=== PATIENT | female | born 1940 | race Asian ===

== ENCOUNTER 2017-02-04 18:38 | Inpatient (IN) | payer MEDICARE ==
[~2017-02-04] VITALS: Ht 160 cm; Wt 43.1 kg
[~2017-02-04 18:38] MED LIST: METFORMIN HCL500 M1 ORAL
[2017-02-04 19:49] LABS: HEMATOCRIT 56.3 % (37.0-47.0); HEMOGLOBIN 17.3 G/DL (12.0-16.0); MEAN CORPUSCULAR VOLUME 91 FL (80-99); PLATELET COUNT 219 K/UL (150-450); RED BLOOD COUNT 6.16 M/UL (4.20-5.40); RED CELL DISTRIBUTION WIDTH 11.7 % (11.6-14.8)
[2017-02-04 19:51] LABS: APPEARANCE,URINE CLEAR; BILIRUBIN, URINE NEGATIVE (NEGATIVE); COLOR,URINE PALE YELLOW; GLUCOSE, URINE (UA) 4+ (NEGATIVE); KETONES,URINE 3+ (NEGATIVE); LEUKOCYTE ESTERASE ,URINE NEGATIVE (NEGATIVE); NITRITE,URINE NEGATIVE (NEGATIVE); PH,URINE 5 (4.5-8.0); PROTEIN,URINE 1+ (NEGATIVE); UROBILINOGEN,URINE NORMAL MG/DL (0.0-1.0)
[2017-02-04 20:18] VITALS: BP 159/87
[2017-02-04 20:32] LABS: ALANINE AMINOTRANSFERASE 24 U/L (12-78); ALBUMIN 3.9 G/DL (3.4-5.0); ALBUMIN/GLOBULIN RATIO 0.8 (1.0-2.7); ALKALINE PHOSPHATASE 182 U/L (46-116); ANION GAP 17 mmol/L (5-15); ASPARTATE AMINO TRANSFERASE 29 U/L (15-37); BILIRUBIN,TOTAL 1.2 MG/DL (0.2-1.0); BLOOD UREA NITROGEN 22 mg/dL (7-18); CARBON DIOXIDE 27 MMOL/L (21-32); CHLORIDE 108 MMOL/L (98-107); CKMB 3.9 NG/ML (0.0-3.6); CREATINE KINASE 442 U/L (26-308); CREATININE 1.1 MG/DL (0.55-1.30); POTASSIUM 3.7 MMOL/L (3.5-5.1); SODIUM 152 MMOL/L (136-145)
[2017-02-04 20:51] LABS: BILIRUBIN,DIRECT 0.2 MG/DL (0.0-0.3)
[2017-02-04 21:24] VITALS: BP 167/78
[2017-02-04] MEDS ORDERED: Ampicillin/Sulbactam Sod 3 GM in NS 110 ML IVPB ONE (22:15)
[2017-02-04] MEDS ORDERED: Unasyn 3gm Inj ONE (22:25)
[2017-02-04 23:49] VITALS: BP 165/71
--- NOTE | 2017-02-04 23:55 | Emergency Room Report ---
History of Present Illness General Chief Complaint: Altered Level of Consciousness Source: Patient, EMS Present Illness HPI Patient is a 76-year-old female brought in by EMS after increased altered level consciousness. Per EMS patient had been altered for approximately 7 hours. The patient was noted to have been minimally responsive. She was noted to have high blood sugar when checked by EMS. History was markedly limited by patient' s altered mental status. Allergies: Coded Allergies: No Known Allergies (Unverified , 02/04/17) Patient History Past Medical History: see triage record Last Menstrual Period: Unk Reviewed Nursing Documentation: PMH: Agreed, PSxH: Agreed Nursing Documentation-PMH Hx Diabetes: Yes Review of Systems All Other Systems: limited - b ymental status Physical Exam Vital Signs Date Time Temp Pulse Resp B/P (MAP) Pulse Ox O2 Delivery O2 Flow Rate FiO2 02/04/17 18:33 98.4 103 18 167/103 97 Room Air Sp02 EP Interpretation: normal General Appearance: moderate distress, lethargic, Chronically Ill ENT: dry mucus membranes Neck: no meningismus, limited range of motion Respiratory: lungs clear, normal breath sounds, no respiratory distress Cardiovascular #1: normal peripheral pulses, no edema Gastrointestinal: normal inspection, normal bowel sounds, non tender, no mass Genitourinary: normal inspection Musculoskeletal: back normal, digits/nails normal Neurologic: motor weakness - moving right upper extremity Psychiatric: other - decreased responsiveness Skin: normal inspection Medical Decision Making Diagnostic Impression: Primary Impression: Altered level of consciousness Additional Impressions: Hyperosmolar coma due to secondary diabetes Dehydration Meningioma CVA (cerebrovascular accident) ER Course Patient presented for altered mental status.Differential diagnosis included but was not limited to ischemic stroke, subarachnoid hemorrhage, hypoglycemia, spinal cord injury, neurodegenerative disorder, urinary tract infection, hypoxemia.Because of complexity of patient's case laboratory testing and imaging studies were ordered. The patient noted have elevated blood sugar. She was given IV insulin. She started on IV fluids. Laboratory testing was notable for elevated blood sugar as well as elevated sodium level consistent with dehydration. Patient was noted to have a normal bicarbonate. She does not appear to be in diabetic ketoacidosis. EKG interpreted by me showed sinus tachycardia with a rate of [address] depression. The patient does not appear to be candidate for thrombolysis due to prolonged time to presentation. She is given rectal aspirin. Dr. Han was contacted for for inpatient management due to patient's altered mental status and panel physician Labs Test 02/04/17 18:44 02/04/17 19:06 02/04/17 21:45 Sodium Level 152 MMOL/L (136-145) Potassium Level 3.7 MMOL/L (3.5-5.1) Chloride Level 108 MMOL/L (98-107) Carbon Dioxide Level 27 MMOL/L (21-32) Anion Gap 17 mmol/L (5-15) Blood Urea Nitrogen 22 mg/dL (7-18) Creatinine 1.1 MG/DL (0.55-1.30) Estimat Glomerular Filtration Rate mL/min (>60) Glucose Level 519 MG/DL (74-106) Calcium Level 9.0 MG/DL (8.5-10.1) Total Bilirubin 1.2 MG/DL (0.2-1.0) Direct Bilirubin 0.2 MG/DL (0.0-0.3) Aspartate Amino Transf (AST/SGOT) 29 U/L (15-37) Alanine Aminotransferase (ALT/SGPT) 24 U/L (12-78) Alkaline Phosphatase 182 U/L (46-116) Total Creatine Kinase 442 U/L (26-308) Creatine Kinase MB 3.9 NG/ML (0.0-3.6) Creatine Kinase MB Relative Index 0.8 Pro-B-Type Natriuretic Peptide 2552 pg/mL (0-125) Total Protein 8.8 G/DL (6.4-8.2) Albumin 3.9 G/DL (3.4-5.0) Globulin 4.9 g/dL Albumin/Globulin Ratio 0.8 (1.0-2.7) White Blood Count 12.0 K/UL (4.8-10.8) Red Blood Count 6.16 M/UL (4.20-5.40) Hemoglobin 17.3 G/DL (12.0-16.0) Hematocrit 56.3 % (37.0-47.0) Mean Corpuscular Volume 91 FL (80-99) Mean Corpuscular Hemoglobin 28.2 PG (27.0-31.0) Mean Corpuscular Hemoglobin Concent 30.8 G/DL (32.0-36.0) Red Cell Distribution Width 11.7 % (11.6-14.8) Platelet Count 219 K/UL (150-450) Mean Platelet Volume 6.8 FL (6.5-10.1) Neutrophils (%) (Auto) % (45.0-75.0) Lymphocytes (%) (Auto) % (20.0-45.0) Monocytes (%) (Auto) % (1.0-10.0) Eosinophils (%) (Auto) % (0.0-3.0) Basophils (%) (Auto) % (0.0-2.0) Differential Total Cells Counted 100 Neutrophils % (Manual) 88 % (45-75) Lymphocytes % (Manual) 7 % (20-45) Monocytes % (Manual) 4 % (1-10) Eosinophils % (Manual) 0 % (0-3) Basophils % (Manual) 0 % (0-2) Band Neutrophils 1 % (0-8) Platelet Estimate Adequate Platelet Morphology Normal Red Blood Cell Morphology Normal Urine Color Pale yellow Urine Appearance Clear Urine pH 5 (4.5-8.0) Urine Specific [place] 1.015 (1.005-1.035) Urine Protein 1+ (NEGATIVE) Urine Glucose (UA) 4+ (NEGATIVE) Urine Ketones 3+ (NEGATIVE) Urine Occult Blood 2+ (NEGATIVE) Urine Nitrite Negative (NEGATIVE) Urine Bilirubin Negative (NEGATIVE) Urine Urobilinogen Normal MG/DL (0.0-1.0) Urine Leukocyte Esterase Negative (NEGATIVE) Urine RBC 0-2 /HPF (0 - 2) Urine WBC 0-2 /HPF (0 - 2) Urine Squamous Epithelial Cells None /LPF (NONE/OCC) Urine Bacteria None /HPF (NONE) Troponin I 0.260 ng/mL (0.000-0.056) Salicylates Level 0.9 ug/mL (2.8-20) Urine Opiates Screen Negative (NEGATIVE) Acetaminophen Level < 10 MCG/ML (10-30) Urine Barbiturates Screen Negative (NEGATIVE) Phencyclidine (PCP) Screen Negative (NEGATIVE) Urine Amphetamines Screen Negative (NEGATIVE) Urine Benzodiazepines Screen Negative (NEGATIVE) Urine Cocaine Screen Negative (NEGATIVE) Urine Marijuana (THC) Screen Negative (NEGATIVE) Serum Alcohol < 3 mg/dL Lactic Acid Level 3.30 mmol/L (0.66-2.22) EKG Diagnostic Results Rate: tachycardiac Rhythm: NSR ASA given to the pt in ED: Yes Rhythm Strip Diag. Results EP Interpretation: yes Rhythm: NSR, no PVC's, no ectopy Last Vital Signs Date Time Temp Pulse Resp B/P (MAP) Pulse Ox O2 Delivery O2 Flow Rate FiO2 02/04/17 21:24 99.2 104 18 167/78 94 Room Air Status: unchanged Disposition: ADMITTED INPATIENT Condition: Serious Referrals: NON PHYSICIAN (PCP) Osei Pendleton Feb 04, 2017 23:55
[2017-02-05] VITALS (9 sets, daily range): BP systolic 124–158; BP diastolic 63–87
[2017-02-05] MEDS ORDERED: Acetaminophen 650 MG SUPP RECTAL PRN ×2 (00:30)
[2017-02-05] MEDS ORDERED: Miralax 17gm pkt ORAL PRN (00:30)
[2017-02-05] MEDS: NovoLOG Insulin Flexpen SUBQ SCH ×6 (01:25→21:52)
[2017-02-05] MEDS ORDERED: D5 1/2NS w/KCl 20mEq 1,000 ML IV SCH (01:29)
[2017-02-05] MEDS ORDERED: Acetaminophen 650 MG SUPP RECTAL ONE (04:30)
[2017-02-05 05:21] LABS: BASOPHILS % (AUTO) 0.2 % (0.0-2.0); HEMATOCRIT 46.2 % (37.0-47.0); HEMOGLOBIN 15.7 G/DL (12.0-16.0); LYMPHOCYTES % (AUTO) 11.3 % (20.0-45.0); MEAN CORPUSCULAR VOLUME 92 FL (80-99); MONOCYTES % (AUTO) 6.2 % (1.0-10.0); NEUTROPHILS % (AUTO) 82.3 % (45.0-75.0); PLATELET COUNT 262 K/UL (150-450); RED BLOOD COUNT 5.04 M/UL (4.20-5.40); RED CELL DISTRIBUTION WIDTH 11.9 % (11.6-14.8); WHITE BLOOD COUNT 14.4 K/UL (4.8-10.8)
[2017-02-05 05:45] LABS: ANION GAP 10 mmol/L (5-15); BLOOD UREA NITROGEN 30 mg/dL (7-18); CALCIUM 8.4 MG/DL (8.5-10.1); CARBON DIOXIDE 28 MMOL/L (21-32); CHLORIDE 118 MMOL/L (98-107); POTASSIUM 3.2 MMOL/L (3.5-5.1); SODIUM 156 MMOL/L (136-145)
[2017-02-05 05:49] LABS: ALANINE AMINOTRANSFERASE 20 U/L (12-78); ALBUMIN 3.3 G/DL (3.4-5.0); ALKALINE PHOSPHATASE 147 U/L (46-116); ASPARTATE AMINO TRANSFERASE 29 U/L (15-37); BILIRUBIN,DIRECT 0.2 MG/DL (0.0-0.3); BILIRUBIN,TOTAL 0.9 MG/DL (0.2-1.0)
--- NOTE | 2017-02-05 08:56 | Diagnostic Imaging Report ---
Indication: Altered mental status Technique: Continuous helical CT scanning of the head was performed utilizing automated exposure control without intravenous contrast material. Axial and coronal reconstructions were obtained. Comparison: None CT dose: Total DLP 1512.87 mGycm; CTDI vol 70.38 mGy Findings: There is no acute intracranial hemorrhage. There is broad region of extra-axial calcification or ossification overlying the left frontal lobe and anteriorly within the middle cranial fossa. This may be related to presence of a large calcified or ossified meningioma. There is some low density in the adjacent left frontal lobe which may be related to encephalomalacia. There are additional focal regions of hypodensity in the left frontoparietal region (series 3 image 21-26) and right frontal lobe suggesting sequela of from bilateral infarcts of indeterminate age. Correlation with prior studies would be helpful to assess for interval change. MRI recommended for better assessment of acuity. The ventricles, sulci and cisterns are prominent, compatible with atrophy. Periventricular hypoattenuation is seen, a nonspecific finding likely sequela of chronic microvascular ischemia. Atherosclerotic calcifications are noted within the cavernous portions of the bilateral internal carotid arteries. There is no skull fracture. Imaged mastoid air cells and paranasal sinuses are clear. Impression: Foci of low-attenuation in the left frontoparietal region and right frontal lobe likely represent sequela of ischemia, chronicity indeterminate but possibly recent. MRI of the brain recommended for further evaluation. Broadbase extra-axial calcification on the left as above possibly representing a large calcified or ossified meningioma . Atrophy and nonspecific periventricular hypoattenuation suggestive of chronic ischemic microvascular changes. This corresponds with the statrad preliminary report. Critical findings discussed with treating ER physician Dr. Pendleton by the radiologist issuing the preliminary report (as recommended in the preliminary report) The CT scanner at [facility] is accredited by the [employer] and the scans are performed using protocols designed to limit radiation exposure to as low as reasonably achievable to attain images of sufficient resolution adequate for diagnostic evaluation.
[2017-02-05] MEDS: Docusate 100mg cap ORAL SCH ×2 (09:00→21:00)
[2017-02-05] MEDS: Aspirin Baby 81mg ORAL SCH (09:00)
[2017-02-05] MEDS: Heparin 5000 units/ml inj SUBQ SCH ×2 (09:24→21:54)
--- NOTE | 2017-02-05 10:28 | Diagnostic Imaging Report ---
Indication: Dyspnea Technique: XRAY Chest 1v Comparison: None Findings: Heart size and mediastinal contours are within normal limits given technique. Atherosclerotic calcification noted within the aortic arch. Linear opacity at the peripheral left lung thought represent atelectasis/scarring. Otherwise, no definite focal consolidation. No large pleural effusion. No pneumothorax. No acute osseous abnormality seen. Impression: Linear opacification at the peripheral left lower lung though to represent atelectasis/scarring. Clinical correlation and follow-up exam recommended.
--- NOTE | 2017-02-05 11:38 | History & Physical ---
History and Physical History & Physicial DICT # [id number] KYLE REILLY M.D. Feb 05, 2017 11:38
--- NOTE | 2017-02-05 12:02 | Diagnostic Imaging Report ---
Indication: Altered mental status. Technique: MRI the brain performed utilizing T1 sagittal, T2 axial, T1 FLAIR axial, T2 FLAIR axial, T2*GRE and diffusion axial images without gadolinium. Comparison: Concurrent head CT Findings: Abnormal diffusion signal hyperintensity with matched dropout on ADC in the right frontoparietal lobe compatible with a large, acute MCA territory infarct. No signal dropout on GRE is noted within this area to suggest hemorrhage. DWI signal hyperintensity in the left parietal lobe with increased signal on ADC compatible with area of T2 shine through; there is corresponding T2 FLAIR signal hyperintensity/T1 signal hypointensity in this region. Foci of encephalomalacia/gliosis noted in the left frontal lobe. There is a GRE signal dropout in the left hemisphere corresponding to the areas of calcification noted on concurrent head CT. There is intrinsic T1 hyperintensity within these regions. There is little/heterogeneous postcontrast enhancement, signal characteristics would be atypical for meningioma. Additional considerations include posttraumatic or postinfectious dystrophic calcifications with underlying areas of gliosis. Ventricular, sulcal and cisternal prominence compatible with age-related atrophy. Periventricular and subcortical T2 signal hyperintensity without mass effect likely representing sequela of chronic microvascular ischemia. Visualized mastoid air cells and paranasal sinuses are unremarkable. No focal bony calvarium or soft tissue lesions are seen. Impression: Large acute right MCA territory infarct. No evidence of associated hemorrhage. Areas of extra-axial calcification in the left hemisphere as detailed above and seen on concurrent CT head. Signal characteristics/enhancement pattern slightly atypical for meningioma. Additional considerations include posttraumatic or postinfectious dystrophic calcifications with underlying areas of gliosis. Findings discussed with Dr. Avila and the patients treating nurse via telephone conversations at approximately 11:20 AM on 02/05/2017.
--- NOTE | 2017-02-05 13:09 | Neurology Progress Note ---
Objective Physical Exam Last Vital Signs Date Time Temp Pulse Resp B/P (MAP) Pulse Ox O2 Delivery O2 Flow Rate FiO2 02/05/17 08:35 100.5 97 18 124/63 97 Room Air Laboratory Tests Test 02/04/17 18:44 02/04/17 19:06 02/04/17 21:45 02/05/17 00:25 Sodium Level 152 MMOL/L (136-145) H Potassium Level 3.7 MMOL/L (3.5-5.1) Chloride Level 108 MMOL/L (98-107) H Carbon Dioxide Level 27 MMOL/L (21-32) Anion Gap 17 mmol/L (5-15) H Blood Urea Nitrogen 22 mg/dL (7-18) H Creatinine 1.1 MG/DL (0.55-1.30) Estimat Glomerular Filtration Rate mL/min (>60) Glucose Level 519 MG/DL (74-106) *H Calcium Level 9.0 MG/DL (8.5-10.1) Total Bilirubin 1.2 MG/DL (0.2-1.0) H Direct Bilirubin 0.2 MG/DL (0.0-0.3) Aspartate Amino Transf (AST/SGOT) 29 U/L (15-37) Alanine Aminotransferase (ALT/SGPT) 24 U/L (12-78) Alkaline Phosphatase 182 U/L (46-116) H Total Creatine Kinase 442 U/L (26-308) H Creatine Kinase MB 3.9 NG/ML (0.0-3.6) H Creatine Kinase MB Relative Index 0.8 Pro-B-Type Natriuretic Peptide 2552 pg/mL (0-125) H Total Protein 8.8 G/DL (6.4-8.2) H Albumin 3.9 G/DL (3.4-5.0) Globulin 4.9 g/dL Albumin/Globulin Ratio 0.8 (1.0-2.7) L White Blood Count 12.0 K/UL (4.8-10.8) H Red Blood Count 6.16 M/UL (4.20-5.40) H Hemoglobin 17.3 G/DL (12.0-16.0) H Hematocrit 56.3 % (37.0-47.0) H Mean Corpuscular Volume 91 FL (80-99) Mean Corpuscular Hemoglobin 28.2 PG (27.0-31.0) Mean Corpuscular Hemoglobin Concent 30.8 G/DL (32.0-36.0) L Red Cell Distribution Width 11.7 % (11.6-14.8) Platelet Count 219 K/UL (150-450) Mean Platelet Volume 6.8 FL (6.5-10.1) Neutrophils (%) (Auto) % (45.0-75.0) Lymphocytes (%) (Auto) % (20.0-45.0) Monocytes (%) (Auto) % (1.0-10.0) Eosinophils (%) (Auto) % (0.0-3.0) Basophils (%) (Auto) % (0.0-2.0) Differential Total Cells Counted 100 Neutrophils % (Manual) 88 % (45-75) H Lymphocytes % (Manual) 7 % (20-45) L Monocytes % (Manual) 4 % (1-10) Eosinophils % (Manual) 0 % (0-3) Basophils % (Manual) 0 % (0-2) Band Neutrophils 1 % (0-8) Platelet Estimate Adequate Platelet Morphology Normal Red Blood Cell Morphology Normal Urine Color Pale yellow Urine Appearance Clear Urine pH 5 (4.5-8.0) Urine Specific [place] 1.015 (1.005-1.035) Urine Protein 1+ (NEGATIVE) H Urine Glucose (UA) 4+ (NEGATIVE) H Urine Ketones 3+ (NEGATIVE) H Urine Occult Blood 2+ (NEGATIVE) H Urine Nitrite Negative (NEGATIVE) Urine Bilirubin Negative (NEGATIVE) Urine Urobilinogen Normal MG/DL (0.0-1.0) Urine Leukocyte Esterase Negative (NEGATIVE) Urine RBC 0-2 /HPF (0 - 2) Urine WBC 0-2 /HPF (0 - 2) Urine Squamous Epithelial Cells None /LPF (NONE/OCC) Urine Bacteria None /HPF (NONE) Lactic Acid Level 2.70 mmol/L (0.66-2.22) H 3.30 mmol/L (0.66-2.22) H Troponin I 0.260 ng/mL (0.000-0.056) Salicylates Level 0.9 ug/mL (2.8-20) L Urine Opiates Screen Negative (NEGATIVE) Acetaminophen Level < 10 MCG/ML (10-30) L Urine Barbiturates Screen Negative (NEGATIVE) Phencyclidine (PCP) Screen Negative (NEGATIVE) Urine Amphetamines Screen Negative (NEGATIVE) Urine Benzodiazepines Screen Negative (NEGATIVE) Urine Cocaine Screen Negative (NEGATIVE) Urine Marijuana (THC) Screen Negative (NEGATIVE) Serum Alcohol < 3 mg/dL Venous Blood pH Pending Venous Blood Partial Pressure CO2 Pending Venous Blood Partial Pressure O2 Pending Venous Blood HCO3 Pending Venous Blood Total Carbon Dioxide Pending Venous Bld O2 Saturation (Measured) 31.4 Venous Blood Oxygen Saturation Pending Venous Blood Base Excess Pending Methemoglobin 0.3 Sodium (Blood Gas) Pending Test 02/05/17 01:20 02/05/17 04:50 Beta-Hydroxybutyric Acid Pending White Blood Count 14.4 K/UL (4.8-10.8) H Red Blood Count 5.04 M/UL (4.20-5.40) Hemoglobin 15.7 G/DL (12.0-16.0) Hematocrit 46.2 % (37.0-47.0) Mean Corpuscular Volume 92 FL (80-99) Mean Corpuscular Hemoglobin 31.1 PG (27.0-31.0) H Mean Corpuscular Hemoglobin Concent 34.0 G/DL (32.0-36.0) Red Cell Distribution Width 11.9 % (11.6-14.8) Platelet Count 262 K/UL (150-450) Mean Platelet Volume 6.3 FL (6.5-10.1) L Neutrophils (%) (Auto) 82.3 % (45.0-75.0) H Lymphocytes (%) (Auto) 11.3 % (20.0-45.0) L Monocytes (%) (Auto) 6.2 % (1.0-10.0) Eosinophils (%) (Auto) 0.0 % (0.0-3.0) Basophils (%) (Auto) 0.2 % (0.0-2.0) Sodium Level 156 MMOL/L (136-145) H Potassium Level 3.2 MMOL/L (3.5-5.1) L Chloride Level 118 MMOL/L (98-107) H Carbon Dioxide Level 28 MMOL/L (21-32) Anion Gap 10 mmol/L (5-15) Blood Urea Nitrogen 30 mg/dL (7-18) H Creatinine 1.0 MG/DL (0.55-1.30) Estimat Glomerular Filtration Rate mL/min (>60) Glucose Level 315 MG/DL (74-106) #H Hemoglobin A1c 11.9 % (4.3-6.0) H Lactic Acid Level 1.90 mmol/L (0.66-2.22) Calcium Level 8.4 MG/DL (8.5-10.1) L Magnesium Level 2.5 MG/DL (1.8-2.4) H Total Bilirubin 0.9 MG/DL (0.2-1.0) Direct Bilirubin 0.2 MG/DL (0.0-0.3) Aspartate Amino Transf (AST/SGOT) 29 U/L (15-37) Alanine Aminotransferase (ALT/SGPT) 20 U/L (12-78) Alkaline Phosphatase 147 U/L (46-116) H Troponin I 0.232 ng/mL (0.000-0.056) Total Protein 7.2 G/DL (6.4-8.2) Albumin 3.3 G/DL (3.4-5.0) L Thyroid Stimulating Hormone (TSH) 0.210 uiU/mL (0.358-3.740) Impression/Recommendations Problems: (1) Large ischemic R MCA stroke (2) Hyperosmolar coma due to secondary diabetes (3) Meningioma (4) Dehydration Status: unchanged Recommendations #[id number] KAI LOREDO Feb 05, 2017 13:08
--- NOTE | 2017-02-05 14:22 | Cardiology Report ---
APPROVED REPORT EXAM: Two-dimensional and M-mode echocardiogram with Doppler and color Doppler. INDICATION Congestive Heart Failure M-Mode DIMENSIONS IVSd1.7 (0.7-1.1cm)Left Atrium (MM)2.5 (1.6-4.0cm) LVDd3.4 (3.5-5.6cm)Aortic Root3.0 (2.0-3.7cm) PWd1.2 (0.7-1.1cm)Aortic Cusp Exc.1.6 (1.5-2.0cm) LVDs2.0 (2.5-4.0cm) PWs1.7 cm Normal left ventricular chamber size, systolic function and wall motion. Left ventricular ejection fraction estimated to be 55 %. Moderate evidence of left ventricular hypertrophy. Anterior Echo-free space, may be due to pericardial fat or effusion. All other cardiac chamber sizes are within normal limits. Focal aortic valve sclerosis with adequate cusp excursion. Thickened mitral valve leaflets with normal excursion. Moderate mitral annulus and aortic root calcification. Normal pulmonic valve structure. Normal tricuspid valve structure. IVC at normal size with physiologic collapse. A color flow and spectral Doppler study was performed and revealed: Moderate aortic regurgitation. Trace mitral regurgitation. Mitral diastolic velocities suggest mild left ventricular dysfunction (Grade I ). Trace tricuspid regurgitation. Tricuspid systolic velocities suggests peak right ventricular systolic pressure of 22 mmHg. Trace pulmonic regurgitation present.
[2017-02-05] MEDS: Piperacillin/Tazobactam 3.375 GM in D5W 55 ML IVPB SCH ×2 (14:37→21:51)
--- NOTE | 2017-02-05 14:49 | Cardiology Report ---
APPROVED REPORT EKG Measurement Heart [id number] Sinus tachycardia Biatrial enlargement Left ventricular hypertrophy with repolarization abnormality Abnormal ECG
--- NOTE | 2017-02-05 15:49 | Infectious Diseases Prog Note ---
Assessment/Plan Assessment/Plan Full consult dictated: A) 1) sepsis, cva, fevers, leukocytosis, high aspiration pna risk 2) allergies - negative 3) pmh noted P) 1) zoxyn 2) check cultures, labs and chest x-ray 3) will f/u 4) thank you Subjective Allergies: Coded Allergies: No Known Allergies (Unverified , 02/04/17) Objective Vital Signs Last 24 Hour Vital Signs Date Time Temp Pulse Resp B/P (MAP) Pulse Ox O2 Delivery O2 Flow Rate FiO2 02/05/17 12:00 98.2 97 19 158/84 99 Room Air 02/05/17 11:49 98 02/05/17 08:35 98.1 103 18 150/78 98 Room Air 02/05/17 08:35 100.5 97 18 124/63 97 Room Air 02/05/17 07:50 97 18 124/63 97 Room Air 02/05/17 06:01 100.5 94 18 127/67 98 Room Air 02/05/17 05:53 100.5 02/05/17 04:36 101.2 101 21 134/72 95 Room Air 02/05/17 02:47 99.2 109 24 155/75 96 Room Air 02/05/17 01:37 99.2 107 20 155/72 96 Room Air 02/04/17 23:49 99.2 107 20 165/71 96 Room Air 02/04/17 21:24 99.2 104 18 167/78 94 Room Air 02/04/17 20:18 99.2 103 18 159/87 99 Room Air 02/04/17 18:33 98.4 103 18 167/103 97 Room Air Height (Feet): 5 Height (Inches): 3.00 Weight (Pounds): 95 Microbiology Date/Time Source Procedure Growth Status 02/04/17 21:45 Nasal Nares Influenza Types A,B Antigen (WILFRIDO) - Final Complete Laboratory Tests Test 02/04/17 18:44 02/04/17 19:06 02/04/17 21:45 02/05/17 00:25 Sodium Level 152 MMOL/L (136-145) H Potassium Level 3.7 MMOL/L (3.5-5.1) Chloride Level 108 MMOL/L (98-107) H Carbon Dioxide Level 27 MMOL/L (21-32) Anion Gap 17 mmol/L (5-15) H Blood Urea Nitrogen 22 mg/dL (7-18) H Creatinine 1.1 MG/DL (0.55-1.30) Estimat Glomerular Filtration Rate mL/min (>60) Glucose Level 519 MG/DL (74-106) *H Calcium Level 9.0 MG/DL (8.5-10.1) Total Bilirubin 1.2 MG/DL (0.2-1.0) H Direct Bilirubin 0.2 MG/DL (0.0-0.3) Aspartate Amino Transf (AST/SGOT) 29 U/L (15-37) Alanine Aminotransferase (ALT/SGPT) 24 U/L (12-78) Alkaline Phosphatase 182 U/L (46-116) H Total Creatine Kinase 442 U/L (26-308) H Creatine Kinase MB 3.9 NG/ML (0.0-3.6) H Creatine Kinase MB Relative Index 0.8 Pro-B-Type Natriuretic Peptide 2552 pg/mL (0-125) H Total Protein 8.8 G/DL (6.4-8.2) H Albumin 3.9 G/DL (3.4-5.0) Globulin 4.9 g/dL Albumin/Globulin Ratio 0.8 (1.0-2.7) L White Blood Count 12.0 K/UL (4.8-10.8) H Red Blood Count 6.16 M/UL (4.20-5.40) H Hemoglobin 17.3 G/DL (12.0-16.0) H Hematocrit 56.3 % (37.0-47.0) H Mean Corpuscular Volume 91 FL (80-99) Mean Corpuscular Hemoglobin 28.2 PG (27.0-31.0) Mean Corpuscular Hemoglobin Concent 30.8 G/DL (32.0-36.0) L Red Cell Distribution Width 11.7 % (11.6-14.8) Platelet Count 219 K/UL (150-450) Mean Platelet Volume 6.8 FL (6.5-10.1) Neutrophils (%) (Auto) % (45.0-75.0) Lymphocytes (%) (Auto) % (20.0-45.0) Monocytes (%) (Auto) % (1.0-10.0) Eosinophils (%) (Auto) % (0.0-3.0) Basophils (%) (Auto) % (0.0-2.0) Differential Total Cells Counted 100 Neutrophils % (Manual) 88 % (45-75) H Lymphocytes % (Manual) 7 % (20-45) L Monocytes % (Manual) 4 % (1-10) Eosinophils % (Manual) 0 % (0-3) Basophils % (Manual) 0 % (0-2) Band Neutrophils 1 % (0-8) Platelet Estimate Adequate Platelet Morphology Normal Red Blood Cell Morphology Normal Urine Color Pale yellow Urine Appearance Clear Urine pH 5 (4.5-8.0) Urine Specific [place] 1.015 (1.005-1.035) Urine Protein 1+ (NEGATIVE) H Urine Glucose (UA) 4+ (NEGATIVE) H Urine Ketones 3+ (NEGATIVE) H Urine Occult Blood 2+ (NEGATIVE) H Urine Nitrite Negative (NEGATIVE) Urine Bilirubin Negative (NEGATIVE) Urine Urobilinogen Normal MG/DL (0.0-1.0) Urine Leukocyte Esterase Negative (NEGATIVE) Urine RBC 0-2 /HPF (0 - 2) Urine WBC 0-2 /HPF (0 - 2) Urine Squamous Epithelial Cells None /LPF (NONE/OCC) Urine Bacteria None /HPF (NONE) Lactic Acid Level 2.70 mmol/L (0.66-2.22) H 3.30 mmol/L (0.66-2.22) H Troponin I 0.260 ng/mL (0.000-0.056) Salicylates Level 0.9 ug/mL (2.8-20) L Urine Opiates Screen Negative (NEGATIVE) Acetaminophen Level < 10 MCG/ML (10-30) L Urine Barbiturates Screen Negative (NEGATIVE) Phencyclidine (PCP) Screen Negative (NEGATIVE) Urine Amphetamines Screen Negative (NEGATIVE) Urine Benzodiazepines Screen Negative (NEGATIVE) Urine Cocaine Screen Negative (NEGATIVE) Urine Marijuana (THC) Screen Negative (NEGATIVE) Serum Alcohol < 3 mg/dL Venous Blood pH Pending Venous Blood Partial Pressure CO2 Pending Venous Blood Partial Pressure O2 Pending Venous Blood HCO3 Pending Venous Blood Total Carbon Dioxide Pending Venous Bld O2 Saturation (Measured) 31.4 Venous Blood Oxygen Saturation Pending Venous Blood Base Excess Pending Methemoglobin 0.3 Sodium (Blood Gas) Pending Test 02/05/17 01:20 02/05/17 04:50 Beta-Hydroxybutyric Acid Pending White Blood Count 14.4 K/UL (4.8-10.8) H Red Blood Count 5.04 M/UL (4.20-5.40) Hemoglobin 15.7 G/DL (12.0-16.0) Hematocrit 46.2 % (37.0-47.0) Mean Corpuscular Volume 92 FL (80-99) Mean Corpuscular Hemoglobin 31.1 PG (27.0-31.0) H Mean Corpuscular Hemoglobin Concent 34.0 G/DL (32.0-36.0) Red Cell Distribution Width 11.9 % (11.6-14.8) Platelet Count 262 K/UL (150-450) Mean Platelet Volume 6.3 FL (6.5-10.1) L Neutrophils (%) (Auto) 82.3 % (45.0-75.0) H Lymphocytes (%) (Auto) 11.3 % (20.0-45.0) L Monocytes (%) (Auto) 6.2 % (1.0-10.0) Eosinophils (%) (Auto) 0.0 % (0.0-3.0) Basophils (%) (Auto) 0.2 % (0.0-2.0) Sodium Level 156 MMOL/L (136-145) H Potassium Level 3.2 MMOL/L (3.5-5.1) L Chloride Level 118 MMOL/L (98-107) H Carbon Dioxide Level 28 MMOL/L (21-32) Anion Gap 10 mmol/L (5-15) Blood Urea Nitrogen 30 mg/dL (7-18) H Creatinine 1.0 MG/DL (0.55-1.30) Estimat Glomerular Filtration Rate mL/min (>60) Glucose Level 315 MG/DL (74-106) #H Hemoglobin A1c 11.9 % (4.3-6.0) H Lactic Acid Level 1.90 mmol/L (0.66-2.22) Calcium Level 8.4 MG/DL (8.5-10.1) L Magnesium Level 2.5 MG/DL (1.8-2.4) H Total Bilirubin 0.9 MG/DL (0.2-1.0) Direct Bilirubin 0.2 MG/DL (0.0-0.3) Aspartate Amino Transf (AST/SGOT) 29 U/L (15-37) Alanine Aminotransferase (ALT/SGPT) 20 U/L (12-78) Alkaline Phosphatase 147 U/L (46-116) H Troponin I 0.232 ng/mL (0.000-0.056) Total Protein 7.2 G/DL (6.4-8.2) Albumin 3.3 G/DL (3.4-5.0) L Thyroid Stimulating Hormone (TSH) 0.210 uiU/mL (0.358-3.740) Current Medications Medications (Trade) Dose Ordered Sig/Wayne Route PRN Reason Start Time Stop Time Status Last Admin Dose Admin Acetaminophen (Tylenol) 650 mg Q4H PRN ORAL Mild Pain (Pain Scale 1-3) 02/05/17 00:30 03/07/17 00:29 Acetaminophen (Tylenol) 650 mg Q4H PRN RECTAL fever 02/05/17 00:30 03/07/17 00:29 02/05/17 04:36 Acetaminophen (Tylenol) 650 mg Q4H PRN RECTAL Mild Pain (Pain Scale 1-3) 02/05/17 00:30 03/07/17 00:29 Aspirin (ASA) 81 mg DAILY ORAL 02/05/17 09:00 03/07/17 08:59 Dextrose (Dextrose 50%) STAT PRN IV Hypoglycemia 02/05/17 00:30 03/07/17 00:29 Dextrose (Dextrose 50%) STAT PRN IV Hypoglycemia 02/05/17 00:45 03/07/17 00:44 Docusate Sodium (Colace) 100 mg EVERY 12 HOURS ORAL 02/05/17 09:00 03/07/17 08:59 Heparin Sodium (Porcine) (Heparin 5000 units/ml) 5,000 units EVERY 12 HOURS SUBQ 02/05/17 09:00 03/07/17 08:59 02/05/17 09:24 Insulin Aspart (NovoLOG) Q4HR SUBQ 02/05/17 01:00 03/07/17 00:59 02/05/17 13:14 Ondansetron HCl (Zofran) 4 mg Q6H PRN IVP Nausea & Vomiting 02/05/17 00:30 03/07/17 00:29 Piperacillin Sod/ Tazobactam Sod 3.375 gm/Dextrose 55 ml @ 13.75 mls/ hr EVERY 8 HOURS IVPB 02/05/17 14:00 02/10/17 13:59 02/05/17 14:37 Polyethylene Glycol (Miralax) 17 gm DAILYPRN PRN ORAL Constipation 02/05/17 00:30 03/07/17 00:29 Sodium Chloride 1,000 ml @ 75 mls/hr [id number] IV 02/05/17 00:45 03/07/17 00:44 02/05/17 14:37 MOLINA CAMP Feb 05, 2017 15:49
[2017-02-05] MEDS ORDERED: Potassium Chloride 40 MEQ in Sodium Chloride 500ML 550 ML IVPB ONE (18:00)
--- NOTE | 2017-02-05 22:00 | History and Physical Report ---
DATE OF ADMISSION: 02/04/2017 Please note this history and physical is in coverage of Dr. Yamileth Yates. REASON FOR THE ADMISSION: Altered mental status and possible CVA. HISTORY OF PRESENT ILLNESS: The patient is a 76-year-old female with a likely underlying history of dementia, who was brought in by EMS due to altered level of consciousness. Much of the history is obtained through chart review and speaking to the patient's brother, who is her primary caregiver. Per the brother, the patient was at baseline, likely demented, minimally verbal, but is ambulatory and tolerating p.o. on her own. She lived with her brother. Yesterday morning when she woke up, he noticed that she was incontinent of stool. Subsequently, she was less interactive than usual and was completely bedbound. He was unable to arouse her, what so ever. He notified EMS who brought the patient into the ER. On the field she was noted to have elevated blood sugar. Since arriving at the hospital, her temperature max has been 101.2 degrees, she has been mildly sinus tachycardic, and saturating well on room air. Her initial labs demonstrated a leukocytosis with a white count of 12, hemoglobin of 17.3 and a platelet count of 219. ABG is pending. She also had a sodium of 152, potassium 3.7, chloride of 108, gap of 17, bicarbonate of 27, BUN of 22, her glucose was 519 on presentation. Her total bilirubin was elevated. CK was elevated. BNP was elevated. Her lactic acid was 2.7 and then 3.3. The lactic acidosis has since resolved with IV fluids. Has hemoglobin A1c of 119 and her last blood sugar is 315. Her troponins have also been mildly elevated, likely in the setting of dehydration. She had a TSH of 2.10. Her urinalysis had 1+ protein, 4+ glucose, 3+ ketones, and 2+ blood. Tox screen was negative. Salicylates and acetaminophen were negative as well as was alcohol. Chest x-ray was done, which showed some atelectasis and a CT of the head was done, which showed a meningioma with likely subsequent edema as well. Marked atrophy and chronic changes suggestive of chronic ischemia were noted in an MRI has just been done, the results of which are pending. PAST MEDICAL HISTORY: 1. Likely dementia. 2. Diabetes. 3. Hypertension. PAST SURGICAL HISTORY: None. PRIOR MEDICATIONS: Metformin. ALLERGIES: No known drug allergies. SOCIAL HISTORY: She lives with her brother. She has a supportive family. No tobacco, alcohol, or drug use. FAMILY HISTORY: Noncontributory. REVIEW OF SYSTEMS: Unobtainable. PHYSICAL EXAMINATION: VITAL SIGNS: Temperature max is 102.1 , heart rate high 90s to low 100s, blood pressure 127/67, respiratory rate 18, and saturating 98% on room air. GENERAL: She is an elderly nonverbal female. She is unresponsive. NEUROLOGIC: She has left facial droop and I cannot elicit a full neurologic exam, but she has evidence of weakness of her upper and lower extremities. She could not participate in the sensory exam. HEENT: Normocephalic, atraumatic. Oropharynx is clear with dry mucous membranes. NECK: Supple without lymphadenopathy or jugular venous distention. CHEST: Clear. HEART: Regular. ABDOMEN: Benign. EXTREMITIES: No cyanosis, clubbing, or edema. ANCILLARY DATA: Labs reviewed. ASSESSMENT: The patient is a 76-year-old female with history of diabetes, hypertension, and likely dementia, presented with alteration in mental status concerning for an acute cerebrovascular accident. She also has clinical signs of dehydration with elevated blood glucose and hemoconcentration and clinically she appears dehydrated as well. She had fevers and leukocytosis, but no obvious source of infection. She is just coming on for an MRI of the brain, the results of which are pending. 1. Alteration of mental status, cerebrovascular accident versus toxic metabolic encephalopathy. 2. Likely underlying dementia. 3. Leukocytosis and fevers, likely underlying infectious process, source is not yet identified. 4. Dehydration. 5. Hemoconcentration. 6. Lactic acidosis, resolved. 7. Mild troponinemia in this setting. 8. Suppressed TSH. TREATMENT PLAN: 1. Stat MRI of brain is done, the results of which are pending. 2. Neurology consultation. 3. We will start Zosyn. 4. Panculture. 5. Infectious Disease evaluation. 6. Sliding scale insulin. 7. We will hold off on trip unless a any signs of diabetic ketoacidosis manifest. 8. NPO. 9. Swallow evaluation if patient improves clinically, otherwise we will need an NG-tube for enteral feeds. 10. DVT prophylaxis, heparin subcutaneous. 11. Monitor volumes and renal function. 12. Continue discuss goals of care with family, but will wait for further prognosticate information first. Bimal Milner M.D. DR: Johnny JOB#: [id number] CC:
[2017-02-05 23:58] LABS: ANION GAP 8 mmol/L (5-15); BLOOD UREA NITROGEN 30 mg/dL (7-18); CALCIUM 8.2 MG/DL (8.5-10.1); CARBON DIOXIDE 28 MMOL/L (21-32); CHLORIDE 122 MMOL/L (98-107); CREATININE 0.7 MG/DL (0.55-1.30); POTASSIUM 4.1 MMOL/L (3.5-5.1); SODIUM 157 MMOL/L (136-145)
[2017-02-06] VITALS: BP 160/82
--- NOTE | 2017-02-06 00:30 | Consultation ---
DATE OF CONSULTATION: 02/05/2017 INFECTIOUS DISEASE CONSULTATION CONSULTING PHYSICIAN: Milton Valladares M.D. ATTENDING PHYSICIAN: Yamileth Yates M.D. REASON FOR CONSULTATION: Sepsis, fevers, leukocytosis, possible pneumonia. CHIEF COMPLAINT: The patient's chief complaint coming in is altered mental status. HISTORY OF PRESENT ILLNESS: This is a 76-year-old female, who comes in to [facility]. It was noted that she had altered mental status. The patient had imaging including MRI of the brain, which showed a large acute right MCA infarct. Chest x-ray shows possible retrocardiac consolidation, opacification versus atelectasis. The patient was febrile with elevated white count and likely septic with SIRS criteria. The patient is at high risk for aspiration pneumonia. The patient is currently on Zosyn, which I concur with. Cultures are pending. UA was unremarkable. Blood cultures are pending. MAR was noted. Orders were noted. Notes and records were reviewed. An infectious disease consultation was requested for antibiotic management. PAST MEDICAL HISTORY: The patient's past medical history includes history of diabetes. She also comes in with what looks like meningioma and dehydration, that is what the records show. As discussed, she has CVA. She is in coma at this time. Elevated blood sugars. No history of hypertension or cancer. MEDICATIONS: Upon reviewing the MAR, she is on following medications. She is on Zosyn. She is on heparin. She is on aspirin. She is on docusate. She is on insulin. She is on sodium chloride and IV fluids. She is on Zofran, polyethylene, and acetaminophen. ALLERGIES: No known drug allergies. No antibiotic allergies. FAMILY HISTORY: Noncontributory. Negative for exposure to tuberculosis or cancer. SOCIAL HISTORY: Negative for smoking, alcohol, or drug abuse. REVIEW OF SYSTEMS: CONSTITUTIONAL: The patient has generalized weakness and fatigue. The patient has no Nunez. No central line. She is coming from home. She came in with fevers. She is poorly responsive. HEAD AND NECK: She cannot really give any history at this time. NEUROLOGICAL: She has no seizures. She has diminished mental status. CARDIAC: No pressors. GASTROINTESTINAL: No nausea, vomiting, or diarrhea. GENITOURINARY: She has no Nunez. PULMONARY: She has may be mild shortness of breath. No significant congestion, secretion, or hemoptysis. SKIN: No rash. NEUROLOGIC: No seizures. PHYSICAL EXAMINATION: VITAL SIGNS: She has been having temperatures as high as 101.2, currently it is 98.2, pulse rate has been over 100, now it is 97, respiratory rate 19, blood pressure 154/84, and saturation 99%. Her respiratory rate has been as high as 24. GENERAL: Lethargic and poorly responsive. HEAD AND NECK: Oral exam, no thrush. Eye exam, no icterus. Neck seems to be supple. Normocephalic. LUNGS: Bilateral rhonchi. Positive rales at the bases, especially on the left. CARDIAC: Regular. No gallop or murmur. ABDOMEN: Soft. Positive bowel sounds. Nontender. SKIN: No rash. MUSCULOSKELETAL: No effusion. Legs are without cellulitis. PERIPHERAL VASCULAR: No cyanosis or gangrene. RECTAL: Deferred. GENITOURINARY: No Nunez. LINES: Line sites without phlebitis. NEUROLOGIC: Generalized weakness. Poorly responsive. LABORATORY AND DIAGNOSTIC DATA: Laboratory data as follows. White count on admission was 12.0, now it is 14.4, and hemoglobin is 15.7. Creatinine is 1.0. Sodium 156 and potassium 3.2. UA was leukocyte esterase negative and 0-2 white blood cells. Chest x-ray showed retrocardiac opacification, scarring, atelectasis, and consolidation was noted and reviewed. MRI of the brain showed acute large MCA infarct. ASSESSMENT AND PLAN: 1. The patient has what looks like sepsis or systemic inflammatory response syndrome criteria with elevated heart rate, tachycardia, fevers over 101, and white count of 14.4. The patient is at high risk for aspiration pneumonia. We will continue Zosyn at this time to cover aspiration pneumonia and Streptococcus pneumoniae as well as for possible coverage of aspiration pneumonia, most likely if she has pneumonia. We will continue Zosyn and check cultures. Watch the patient's sepsis status including watching white cell count and fevers. Continue antibiotics. Check followup labs, chest x-ray, and blood cultures. UA was unremarkable for urinary tract infection. 2. The patient has acute cerebrovascular accident. She is poorly responsive. 3. Diabetes. 4. Dehydration. 5. Intravenous fluids. 6. Hypernatremia. 7. Decreased mental status. 8. Hypokalemia. 9. Meningioma. 10. Past medical history is noted. 11. No allergies. 12. Social history is negative. 13. Family history is noncontributory. 14. MAR was noted. 15. Case was discussed with RN. 16. Continue treatment per primary consultants. Milton Valladares M.D. DR: JULIEN JOB#: [id number] CC:
--- NOTE | 2017-02-06 01:30 | Consultation ---
DATE OF CONSULTATION: 02/05/2017 NEUROLOGICAL CONSULTATION CONSULTING PHYSICIAN: Wei Roblero M.D. REQUESTING PHYSICIAN: Yamileth Yates M.D. HISTORY OF PRESENT ILLNESS: This is a 76-year-old female seen in neurological consultation to evaluate new onset of unresponsiveness. According to the family information, she moved into her brother couple of weeks ago, was functioning properly. She was able to do her shopping, taking care of herself, but then the day prior to admission, she started to develop changes in her mental status. She had a urine and bowel incontinence, was confused and yesterday, she became unresponsive. Paramedics were called to the scene. At the scene, she had significant glycemia and she was minimally responsive. Her vital signs on admission included blood pressure 167/103, heart rate of 103, and temperature 98.4. She was described as being in moderate distress, lethargic, and chronically ill appearing. Following admission, she was started on IV fluids, given IV insulin. Her laboratory work initially revealed CBC study with WBC 12.0, elevated RBC 6.16, hemoglobin 17.3, and hematocrit 56.3. Chemistry panel included sodium 156, potassium 3.2, chloride 118, and blood sugar 315. Troponin 0.232 and TSH of 0.210. Her toxicology panel was negative. Urinalysis was 3+ ketones and 1+ protein. Imaging studies with the initial chest x-ray revealed a linear opacification to the left lower lung representing atelectasis/scarring. Her CT of the brain was markedly abnormal with foci of low attenuation, left frontoparietal region, right frontal lobe representing sequela of ischemia, chronic, but possibly recent. There was a broad-based calcification representing left calcified or ossified meningioma, with chronic ischemic microvascular changes. Stat MRI was then obtained. This revealed a large acute right MCA distribution ischemic stroke, extra-axial calcification left hemisphere, atypical for meningioma, possibility of posttraumatic or post infectious dystrophic calcifications with underlying areas of gliosis suggested. A 2D echo was performed on preliminary data and no mural thrombi noted. PAST MEDICAL HISTORY: The patient has a history of diabetes mellitus, possibly noncompliance, current treatment included metformin 500 mg twice a day. FAMILY HISTORY: Noncontributory. REVIEW OF SYMPTOMS: Unable to obtain due to the patient's status. PHYSICAL EXAMINATION: GENERAL: Well developed, somewhat cachectic, elderly lady, in acute distress, but lying comfortably in bed. VITAL SIGNS: Now are stable, although temperature of 100.5, blood pressure 135/63, and heart rate of 97. HEENT: Head is normocephalic. There is no evidence of trauma. Eyes, ears, and throat are clear. NECK: Supple. No meningeal signs. MUSCULOSKELETAL: Examination unremarkable. There are no deformities. Peripheral pulses 1+ and symmetric. MENTAL STATUS: The patient is unresponsive to voice. On vigorous stimulation, she moans, but does not open eyes. CRANIAL NERVE II: Pupils 3 mm responding to light and accommodation with right gaze preference. CRANIAL NERVE V: Normal corneal response. CRANIAL NERVE VII: Drooped right nasolabial fold. CRANIAL NERVE VIII: Unable to test. CRANIAL NERVE IX THROUGH XII: Reduced gag response. MOTOR EXAMINATION: Revealed flaccid left upper and left lower extremity. There is some spontaneous movement noted in the right arm, but not leg. Deep tendon reflexes depressed bilaterally. Plantar responses are mute. No pathological responses noted. SENSORY EXAMINATION: No response to pin stimulation. IMPRESSION: 1. Massive right middle cerebral artery distribution ischemic stroke with a left hemiplegia and unresponsiveness. 2. Left extra-axial calcifications. 3. Diabetes type 2, poor control. 4. Hypokalemia. 5. Dehydration. DISCUSSION: The patient sustained a massive right MCA distribution stroke, probably due to complete block of right MCA. The patient was appropriately started on IV fluids. There is some antibiotic coverage. She was given aspirin 300 mg rectal. Avoid anticoagulation due to possible hemorrhagic transformation of massive ischemia area. Continue appropriate symptomatic treatment including insulin and Zofran. Maintain NPO. Suggest NG tube for medications and feeding. Additional diagnostic studies may include carotid duplex. Thank you for allowing me to see this interesting patient in neurological consultation. Wei Roblero M.D. DR: TREASURE JOB#: [id number] CC:
[2017-02-06] MEDS: NovoLOG Insulin Flexpen SUBQ SCH ×6 (02:06→21:24)
[2017-02-06 04:00] VITALS: BP 150/80
[2017-02-06 05:01] LABS: BASOPHILS % (AUTO) 0.4 % (0.0-2.0); HEMATOCRIT 46.1 % (37.0-47.0); LYMPHOCYTES % (AUTO) 15.6 % (20.0-45.0); MEAN CORPUSCULAR VOLUME 94 FL (80-99); PLATELET COUNT 195 K/UL (150-450); RED BLOOD COUNT 4.89 M/UL (4.20-5.40); RED CELL DISTRIBUTION WIDTH 12.6 % (11.6-14.8); WHITE BLOOD COUNT 13.8 K/UL (4.8-10.8)
[2017-02-06 05:28] LABS: ANION GAP 9 mmol/L (5-15); BLOOD UREA NITROGEN 29 mg/dL (7-18); CALCIUM 8.2 MG/DL (8.5-10.1); CARBON DIOXIDE 26 MMOL/L (21-32); CHLORIDE 121 MMOL/L (98-107); CREATININE 0.7 MG/DL (0.55-1.30); POTASSIUM 3.9 MMOL/L (3.5-5.1); SODIUM 156 MMOL/L (136-145)
[2017-02-06] MEDS: Piperacillin/Tazobactam 3.375 GM in D5W 55 ML IVPB SCH ×3 (06:21→21:25)
[2017-02-06 08:00] VITALS: BP 163/76
--- NOTE | 2017-02-06 09:23 | Diagnostic Imaging Report ---
Indication: NG tube placement. Technique: One view abdomen Findings: The bowel gas pattern is nonobstructive. A nasogastric tube is in the stomach. Mild degenerative changes noted in the spine. There is interstitial disease in the lungs. Impression: NG tube in the stomach. Interstitial lung disease. Degenerative change in the spine..
[2017-02-06] MEDS: Aspirin Baby 81mg ORAL SCH (09:47)
[2017-02-06] MEDS: Docusate 100mg/10ml Liq GT SCH ×2 (09:47→21:21)
[2017-02-06] MEDS: Heparin 5000 units/ml inj SUBQ SCH ×2 (09:48→21:23)
--- NOTE | 2017-02-06 10:38 | Neurology Progress Note ---
Interim History Interim History ROS Limited/Unobtainable: Yes Complaints: mute Events: no change Objective Physical Exam Last Vital Signs Date Time Temp Pulse Resp B/P (MAP) Pulse Ox O2 Delivery O2 Flow Rate FiO2 02/06/17 08:00 98.3 92 21 163/76 94 Room Air Laboratory Tests Test 02/05/17 23:15 02/06/17 03:40 02/06/17 05:50 Sodium Level 157 MMOL/L (136-145) H 156 MMOL/L (136-145) H Potassium Level 4.1 MMOL/L (3.5-5.1) 3.9 MMOL/L (3.5-5.1) Chloride Level 122 MMOL/L (98-107) H 121 MMOL/L (98-107) H Carbon Dioxide Level 28 MMOL/L (21-32) 26 MMOL/L (21-32) Anion Gap 8 mmol/L (5-15) 9 mmol/L (5-15) Blood Urea Nitrogen 30 mg/dL (7-18) H 29 mg/dL (7-18) H Creatinine 0.7 MG/DL (0.55-1.30) 0.7 MG/DL (0.55-1.30) Estimat Glomerular Filtration Rate mL/min (>60) mL/min (>60) Glucose Level 217 MG/DL (74-106) H 240 MG/DL (74-106) H Lactic Acid Level 1.50 mmol/L (0.66-2.22) Calcium Level 8.2 MG/DL (8.5-10.1) L 8.2 MG/DL (8.5-10.1) L Troponin I 0.128 ng/mL (0.000-0.056) White Blood Count 13.8 K/UL (4.8-10.8) H Red Blood Count 4.89 M/UL (4.20-5.40) Hemoglobin 15.0 G/DL (12.0-16.0) Hematocrit 46.1 % (37.0-47.0) Mean Corpuscular Volume 94 FL (80-99) Mean Corpuscular Hemoglobin 30.7 PG (27.0-31.0) Mean Corpuscular Hemoglobin Concent 32.5 G/DL (32.0-36.0) Red Cell Distribution Width 12.6 % (11.6-14.8) Platelet Count 195 K/UL (150-450) Mean Platelet Volume 6.7 FL (6.5-10.1) Neutrophils (%) (Auto) 79.0 % (45.0-75.0) H Lymphocytes (%) (Auto) 15.6 % (20.0-45.0) L Monocytes (%) (Auto) 5.0 % (1.0-10.0) Eosinophils (%) (Auto) 0.0 % (0.0-3.0) Basophils (%) (Auto) 0.4 % (0.0-2.0) Arterial Blood pH 7.485 (7.350-7.450) Arterial Blood Partial Pressure CO2 33.8 mmHg (35.0-45.0) L Arterial Blood Partial Pressure O2 79.9 mmHg (75.0-100.0) Arterial Blood HCO3 24.9 mmol/L (22.0-26.0) Arterial Blood Oxygen Saturation 96.0 % (92.0-98.0) Arterial Blood Base Excess 2.0 Ray Test Positive General: well developed, well nourished, no acute distress Head: normocophalic, atraumatic Neck: other - rigid Neurologic Exam Mental Status: other - drowsy mute noncommunicative Speech: other - mumbling Language: other Cranial Nerve II: no papilledema Cranial Nerves III, IV, : other Cranial Nerve V: normal facial sensations Cranial Nerve VII: normal facial expressions Cranial Nerve VIII: no nystagmus Cranial Nerve IX: gag response Cranial Nerve XI: trapezii function normal Cranial Nerve XII: no tongue atrophy/fasciculations Motor System: other - L hemiplegia Sensory: other Coordination: other Deep Tendon Reflexes: 0 bicep (L), 0 bicep (R), 0 tricep (L), 0 tricep (R), 0 brachioradialis (L), 0 brachioradialis (R), 0 knee (L), 0 knee (R), 0 ankle (L) , 0 ankle (R) Reflexes: mute plantar (L), mute plantar (R) Impression/Recommendations Problems: (1) Large ischemic R MCA stroke (2) Hyperosmolar coma due to secondary diabetes (3) Meningioma (4) Dehydration Status: unchanged Recommendations #[id number] consider G tube placement cont support care d/w family KAI LOREDO Feb 06, 2017 10:38
--- NOTE | 2017-02-06 11:07 | Diagnostic Imaging Report ---
Indication: Cough Technique: XRAY Chest 1v Comparison: 02/04/2017 Findings: A nasogastric tube has been placed with the tip in the stomach. The cardiomediastinal silhouette is unchanged. Scarring is noted in both lower lungs. No acute pulmonary infiltrates. No pleural fluid. Impression: Placement of nasogastric tube in the stomach. Bilateral parenchymal scarring. No acute change from previous exam.
[2017-02-06 12:00] VITALS: BP 152/79
[2017-02-06 16:00] VITALS: BP 147/77
[2017-02-06] MEDS ORDERED: NS 275ml ONE (17:33)
[2017-02-06] MEDS ORDERED: 1/2 NS 1000ml IV ONE (17:33)
[2017-02-06] MEDS ORDERED: Tubing IV Secondary IV ONE (17:33)
[2017-02-06 20:00] VITALS: BP 158/72
--- NOTE | 2017-02-06 23:10 | General Progress Note ---
Assessment/Plan Problem List: (1) Dehydration ICD Codes: E86.0 - Dehydration SNOMED: 84961859, 2253375 (2) Meningioma ICD Codes: D32.9 - Benign neoplasm of meninges, unspecified SNOMED: 783617943 (3) CVA (cerebrovascular accident) ICD Codes: I63.9 - Cerebral infarction, unspecified SNOMED: 142646834, 1171370 (4) Large ischemic R MCA stroke (5) Hyperosmolar coma due to secondary diabetes ICD Codes: E13.01 - Other specified diabetes mellitus with hyperosmolarity with coma SNOMED: 957963219751948, 5221613 (6) Altered level of consciousness ICD Codes: R40.4 - Transient alteration of awareness SNOMED: 6428768 Subjective Date patient seen: Feb 06, 2017 Time patient seen: 10:00 Allergies: Coded Allergies: No Known Allergies (Unverified , 02/04/17) Subjective MRI revealed large right MCA infarct Unable to awake patient despite painful stimuli. Per RN, patient has been responsive and moving her right upper extremity NG tube placed today but pulled out by patient Objective Last 24 Hour Vital Signs Date Time Temp Pulse Resp B/P (MAP) Pulse Ox O2 Delivery O2 Flow Rate FiO2 02/06/17 20:00 66 02/06/17 16:00 97.9 77 20 147/77 99 Room Air 02/06/17 16:00 74 02/06/17 12:00 98.7 86 21 152/79 86 Room Air 02/06/17 12:00 80 02/06/17 08:00 98.3 92 21 163/76 94 Room Air 02/06/17 08:00 96 02/06/17 04:00 89 02/06/17 04:00 98.9 100 18 150/80 98 Room Air 02/06/17 03:39 189/95 02/06/17 00:00 74 02/06/17 00:00 98.1 82 18 160/82 96 Room Air Intake and Output 02/05/17 02/06/17 19:00 07:00 Intake Total 977.500 ml 957.00 ml Output Total 100 ml Balance 877.500 ml 957.00 ml Intake IV Total 977.500 ml 957.00 ml Output Urine Total 100 ml # Voids 1 Laboratory Tests 02/05/17 23:15: Sodium Level 157H, Potassium Level 4.1, Chloride Level 122H, Carbon Dioxide Level 28, Anion Gap 8, Blood Urea Nitrogen 30H, Creatinine 0.7, Estimat Glomerular Filtration Rate , Glucose Level 217H, Lactic Acid Level 1.50, Calcium Level 8.2L, Troponin I 0.128H 02/06/17 03:40: Sodium Level 156H, Potassium Level 3.9, Chloride Level 121H, Carbon Dioxide Level 26, Anion Gap 9, Blood Urea Nitrogen 29H, Creatinine 0.7, Estimat Glomerular Filtration Rate , Glucose Level 240H, Calcium Level 8.2L, White Blood Count 13.8H, Red Blood Count 4.89, Hemoglobin 15.0, Hematocrit 46.1, Mean Corpuscular Volume 94, Mean Corpuscular Hemoglobin 30.7, Mean Corpuscular Hemoglobin Concent 32.5, Red Cell Distribution Width 12.6, Platelet Count 195, Mean Platelet Volume 6.7, Neutrophils (%) (Auto) 79.0H, Lymphocytes (%) (Auto) 15.6L, Monocytes (%) (Auto) 5.0, Eosinophils (%) (Auto) 0.0, Basophils (%) (Auto ) 0.4 02/06/17 05:50: Arterial Blood pH 7.485H, Arterial Blood Partial Pressure CO2 33.8L, Arterial Blood Partial Pressure O2 79.9, Arterial Blood HCO3 24.9, Arterial Blood Oxygen Saturation 96.0, Arterial Blood Base Excess 2.0, Ray Test Positive Height (Feet): 5 Height (Inches): 3.00 Weight (Pounds): 95 General Appearance: other - sleeping, unable to awake despite painful stimuli EENT: PERRL/EOMI Neck: non-tender, normal alignment, supple Cardiovascular: normal peripheral pulses, normal rate, regular rhythm Respiratory/Chest: chest wall non-tender, lungs clear, normal breath sounds, no respiratory distress Abdomen: normal bowel sounds, non tender, soft Extremities: other - left side hemiparesis Neurologic: other - left side hemiplagia Vicki Moore N.P. Feb 06, 2017 23:10
[2017-02-07] VITALS: BP 160/90
[2017-02-07] MEDS: NovoLOG Insulin Flexpen SUBQ SCH ×6 (01:08→20:55)
[2017-02-07 04:00] VITALS: BP 188/84
[2017-02-07 05:15] LABS: BASOPHILS % (AUTO) 0.4 % (0.0-2.0); EOSINOPHILS % (AUTO) 0.1 % (0.0-3.0); HEMATOCRIT 46.8 % (37.0-47.0); LYMPHOCYTES % (AUTO) 18.1 % (20.0-45.0); MEAN CORPUSCULAR VOLUME 96 FL (80-99); MONOCYTES % (AUTO) 6.4 % (1.0-10.0); PLATELET COUNT 160 K/UL (150-450); RED BLOOD COUNT 4.85 M/UL (4.20-5.40); RED CELL DISTRIBUTION WIDTH 12.8 % (11.6-14.8); WHITE BLOOD COUNT 10.3 K/UL (4.8-10.8)
[2017-02-07] MEDS: Piperacillin/Tazobactam 3.375 GM in D5W 55 ML IVPB SCH ×3 (05:15→21:06)
[2017-02-07 05:53] LABS: ANION GAP 7 mmol/L (5-15); BLOOD UREA NITROGEN 24 mg/dL (7-18); CALCIUM 8.4 MG/DL (8.5-10.1); CARBON DIOXIDE 29 MMOL/L (21-32); CHLORIDE 117 MMOL/L (98-107); CREATININE 0.7 MG/DL (0.55-1.30); POTASSIUM 3.5 MMOL/L (3.5-5.1); SODIUM 153 MMOL/L (136-145)
[2017-02-07 08:00] VITALS: BP 186/85
--- NOTE | 2017-02-07 08:30 | Geriatric Medicine Prog Note ---
DATE: 02/06/2017 SUBJECTIVE: The patient was started on Accu-Chek q.6 h. with moderate dose of NovoLog OBJECTIVE:Bp 120..70,P80,R18,T98 RWP:Clear,CVS-Regular INV:Glucose 230 ASSESSMENT:Diabete Melltus improving 2.S/p CVA PLANS:Glucerna 1.2 50 cc/hr per and Detemur 20u s qF08dir. PEg placement prior to discharge. Oneil Bradford M.D. DR: JOB JOB#: [id number] CC: CHRIS
--- NOTE | 2017-02-07 08:30 | Consultation ---
DATE OF CONSULTATION: 02/06/2017 CONSULTING PHYSICIAN: Oneil Bradford M.D. REFERRING PHYSICIAN: Yamileth Yates M.D. REASON FOR CONSULTATION: I was asked to see this 76-year-old K[place] female referred by Dr. Yamileth Yates in Endocrinology consultation for evaluation and management of type 2 diabetes mellitus. PERTINENT HISTORY: The patient is admitted with acute onset of dysphghia aft6er stroke days.she has no history of diabetes. PAST MEDICAL HISTORY: Unavailable. REVIEW OF SYSTEMS: A 14-point review is unremarkable. PHYSICAL EXAMINATION: GENERAL: The patient is in no acute distress, but poorly responsive. VITAL SIGNS: Blood pressure 152/78, pulse 83, respiratory rate 18, and temperature 98.3 degrees. HEENT: No lymphadenopathy. LUNGS: Clear. CARDIOVASCULAR: Heart sounds are regular. ABDOMEN: soft_. EXTREMITIES: No edema. CENTRAL NERVOUS SYSTEM: Cranial nerves II through XII are grossly intact. Reflexes intact, but toes are downgoing to plantar stimulation. INV:Glucose 379 mg% ASSESSMENT: 1.Diabetes Melluiuts Type 2new onset 2.Dysphaqgie due ti acute stroke PLAN: I recommended NG tube to be passed and started on Jevity 1.2 at 45 mL per hour with_Accu-Chek q.6 h. with moderate sliding scale.nvolg. Begin Levemir 20u sc Q12hrs wirh sliding scale novolog q6hr.Conside rnfor a PEG. Oneil Bradford M.D. DR: KELECHI JOB#: [id number] CC: CHRIS
[2017-02-07] MEDS: Docusate 100mg/10ml Liq GT SCH ×2 (09:44→20:50)
[2017-02-07] MEDS: Heparin 5000 units/ml inj SUBQ SCH ×2 (09:45→20:52)
[2017-02-07] MEDS: Aspirin Baby 81mg ORAL SCH (09:46)
[2017-02-07 12:00] VITALS: BP 158/77
--- NOTE | 2017-02-07 12:14 | Diagnostic Imaging Report ---
Indication: NG tube placement Comparison: None Single view of the abdomen obtained Findings: NG tube is in the stomach in good position. Bowel gas pattern is nonspecific. No mass, ectopic calcifications, or abnormal gas collections are identified. The bones are osteopenic. Impression: NG tube satisfactory position
--- NOTE | 2017-02-07 12:23 | Diagnostic Imaging Report ---
Indication: NG tube Comparison: Earlier the same day Single view of the abdomen obtained Findings: NG tube is in good position with the tip in the stomach. Bowel gas pattern remains nonspecific. IMPRESSION: NG tube in good position
--- NOTE | 2017-02-07 12:47 | General Progress Note ---
Assessment/Plan Problem List: (1) Dehydration ICD Codes: E86.0 - Dehydration SNOMED: 55352308, 4078274 (2) Meningioma ICD Codes: D32.9 - Benign neoplasm of meninges, unspecified SNOMED: 849955025 (3) CVA (cerebrovascular accident) ICD Codes: I63.9 - Cerebral infarction, unspecified SNOMED: 669364680, 7509414 (4) Large ischemic R MCA stroke (5) Hyperosmolar coma due to secondary diabetes ICD Codes: E13.01 - Other specified diabetes mellitus with hyperosmolarity with coma SNOMED: 189482095593067, 7688709 (6) Altered level of consciousness ICD Codes: R40.4 - Transient alteration of awareness SNOMED: 9900919 (7) Hypernatremia ICD Codes: E87.0 - Hyperosmolality and hypernatremia SNOMED: 82466993 (8) Elevated troponin ICD Codes: R74.8 - Abnormal levels of other serum enzymes SNOMED: 330325884, 211446184 (9) PNA (pneumonia) ICD Codes: J18.9 - Pneumonia, unspecified organism SNOMED: 659350270 (10) Sepsis ICD Codes: A41.9 - Sepsis, unspecified organism SNOMED: 30014358 Status: not improved Assessment/Plan - d/w family regarding PEG placement. Family agreeable and understands risks and benefits of PEG but would like to revisit the idea tomorrow. - ST unable to do perform video swallow study at this time because of patient's condition - Continue permissive HTN with systolic 140-160s. Hydralazine prn systolic > 180 - continue NG tube feeds - MRI brain reviewed with large right MCA infarct - Continued on zosyn for possible aspiration PNA - check c. diff panel - F/u blood cultures - f/u serial CXR - nephrology consulted given hypernatremia. Continue with 1/2 NS - Trops mildly increased likely in the setting of sepsis. Trend trops - ECHO with 55% EF - Apprec neurology recs - Apprec ID recs - Apprec endo recs - accucheck q6hr with moderate SSi - DVT ppx: heparin - Will discuss goals of care once more details on prognosis is reported per neuro D/w RN and all consultants. Subjective Date patient seen: Feb 07, 2017 Allergies: Coded Allergies: No Known Allergies (Unverified , 02/04/17) Subjective D/w family in detail regarding prognosis patient responsive to painful stimuli today with RUE movement, screaming when IV placed in right arm. on NG tube feeds BP with systolic 180s continues to be hypernatremic Objective Last 24 Hour Vital Signs Date Time Temp Pulse Resp B/P (MAP) Pulse Ox O2 Delivery O2 Flow Rate FiO2 02/07/17 08:00 65 02/07/17 08:00 97.3 72 22 186/85 97 02/07/17 04:00 96.8 68 20 188/84 98 02/07/17 03:59 71 02/07/17 00:00 97.7 76 19 160/90 98 Room Air 02/07/17 00:00 75 02/06/17 20:00 66 02/06/17 20:00 97.3 69 21 158/72 96 Room Air 02/06/17 19:52 66 02/06/17 16:00 97.9 77 20 147/77 99 Room Air 02/06/17 16:00 74 Intake and Output 02/06/17 02/07/17 19:00 07:00 Intake Total 441.56 ml Output Total 500 ml Balance -500 ml 441.56 ml Intake IV Total 186.56 ml Tube Feeding 255 ml Output Urine Total 500 ml # Voids 3 1 Laboratory Tests 02/07/17 04:30: White Blood Count 10.3, Red Blood Count 4.85, Hemoglobin 15.0, Hematocrit 46.8, Mean Corpuscular Volume 96, Mean Corpuscular Hemoglobin 30.9, Mean Corpuscular Hemoglobin Concent 32.0, Red Cell Distribution Width 12.8, Platelet Count 160, Mean Platelet Volume 7.0, Neutrophils (%) (Auto) 75.0, Lymphocytes (%) (Auto) 18.1L, Monocytes (%) (Auto) 6.4, Eosinophils (%) (Auto) 0.1, Basophils (%) (Auto ) 0.4, Sodium Level 153H, Potassium Level 3.5, Chloride Level 117H, Carbon Dioxide Level 29, Anion Gap 7, Blood Urea Nitrogen 24H, Creatinine 0.7, Estimat Glomerular Filtration Rate , Glucose Level 242H, Calcium Level 8.4L, Thyroid Stimulating Hormone (TSH) 0.195L 02/07/17 11:05: Troponin I 0.062H Height (Feet): 5 Height (Inches): 3.00 Weight (Pounds): 95 General Appearance: other - sleeping EENT: PERRL/EOMI Neck: non-tender, normal alignment, supple Cardiovascular: normal peripheral pulses, normal rate, regular rhythm Respiratory/Chest: chest wall non-tender, lungs clear, normal breath sounds Abdomen: normal bowel sounds, non tender, soft Neurologic: other - RUE with 5/5 strength. Hemiplegia to left side and RLE. responsive to painful stimuli on right side. no gag reflex Vicki Moore N.P. Feb 07, 2017 12:47
--- NOTE | 2017-02-07 14:49 | Consultation ---
Consult Note Consult Note asked to eval for hypernatremia Patient is a 76-year-old female brought in by EMS after increased altered level consciousness. Per EMS patient had been altered for approximately 7 hours. The patient was noted to have been minimally responsive. She was noted to have high blood sugar when checked by EMS. History was markedly limited by patient' s altered mental status. examined- meds reviewed data reviewed . Assessment/Plan - Dehydration, free water deficit leading to - Hypernatremia - Encephalopathy leading to Altered level of consciousness , likely related to CVA (cerebrovascular accident, Large ischemic R MCA stroke - DM, - Hyperosmolar coma due to diabetes - Elevated troponin - Meningioma - PNA (pneumonia) - Sepsis plan: IV to D5W Levemir SS insulin adjust BP meds: Lopressor and norvasc Gastric coverage urine studies nitrate TENA GILBERT Feb 07, 2017 14:49
[2017-02-07] MEDS ORDERED: HydrALAZINE 25mg tab NG PRN (15:00)
[2017-02-07] MEDS ORDERED: Metoprolol Tartrate 12.5mg TAB NG ONE (15:00)
[2017-02-07 16:00] VITALS: BP 156/76
[2017-02-07] MEDS ORDERED: Tubing IV Secondary IV ONE (16:58)
[2017-02-07] MEDS ORDERED: 1/2 NS 1000ml IV ONE (16:58)
--- NOTE | 2017-02-07 16:59 | Infectious Diseases Prog Note ---
Assessment/Plan Assessment/Plan ASSESSMENT AND PLAN: 1. sepsis, ? aspiration pna, fevers, leukocytosis, sirs - zosyn - check labs - watch clinically - fevers and leukocytosis are resolved 2.The patient has acute cerebrovascular accident. She is poorly responsive. 3. Diabetes. 4. Dehydration. 5. Intravenous fluids. 6. Hypernatremia. 7. Decreased mental status. 8. Hypokalemia. 9. Meningioma. 10. Past medical history is noted. 11. No allergies. 12. Social history is negative. 13. Family history is noncontributory. 14. MAR was noted. 15. Case was discussed with RN. 16. Continue treatment per primary consultants. Subjective Constitutional: Reports: other - non-responsive , Denies: fever HEENT: Denies: congestion Respiratory: Denies: shortness of breath Cardiovascular: Reports: other - no pressors Gastrointestinal/Abdominal: Denies: nausea, vomiting, diarrhea Genitourinary: Reports: other - no taylor Neurologic: Denies: other - non-responsive Psychiatric: Reports: no symptoms Skin: Denies: rash Hematologic: Denies: bleeding Musculoskeletal: Reports: no symptoms Allergies: Coded Allergies: No Known Allergies (Unverified , 02/04/17) Objective Vital Signs Last 24 Hour Vital Signs Date Time Temp Pulse Resp B/P (MAP) Pulse Ox O2 Delivery O2 Flow Rate FiO2 02/07/17 15:24 78 158/77 02/07/17 12:00 77 02/07/17 12:00 97.9 68 16 158/77 97 02/07/17 08:00 65 02/07/17 08:00 97.3 72 22 186/85 97 02/07/17 04:00 96.8 68 20 188/84 98 02/07/17 03:59 71 02/07/17 00:00 97.7 76 19 160/90 98 Room Air 02/07/17 00:00 75 02/06/17 20:00 66 02/06/17 20:00 97.3 69 21 158/72 96 Room Air 02/06/17 19:52 66 Height (Feet): 5 Height (Inches): 3.00 Weight (Pounds): 95 General Appearance: no acute distress HEENT: normocephalic, atraumatic, anicteric, supple, no JVD Respiratory/Chest: no accessory muscle use, decreased breath sounds, rhonchi - bilaterally Cardiovascular: normal rate, regular rhythm, no gallop/murmur, no JVD Abdomen: normal bowel sounds, soft, non tender, no organomegaly, non distended Genitourinary: other - no taylor Extremities: no cyanosis Skin: no rash Neurologic/Psychiatric: gas examiner II-XII grossly normal, motor weakness, other - non- responsive Lymphatic: no neck adenopathy Musculoskeletal: no effusion Objective Chest x-ray - 02/06 - Comparison: 02/04/2017 Findings: A nasogastric tube has been placed with the tip in the stomach. The cardiomediastinal silhouette is unchanged. Scarring is noted in both lower lungs. No acute pulmonary infiltrates. No pleural fluid. Impression: Placement of nasogastric tube in the stomach. Bilateral parenchymal scarring. No acute change from previous exam. Microbiology Date/Time Source Procedure Growth Status 02/04/17 19:25 Blood Blood Culture - Preliminary NO GROWTH AFTER 48 HOURS Resulted 02/04/17 19:25 Blood Blood Culture - Preliminary NO GROWTH AFTER 48 HOURS Resulted 02/04/17 21:45 Nasal Nares Influenza Types A,B Antigen (WILFRIDO) - Final Complete Laboratory Tests Test 02/07/17 04:30 02/07/17 11:05 White Blood Count 10.3 K/UL (4.8-10.8) Red Blood Count 4.85 M/UL (4.20-5.40) Hemoglobin 15.0 G/DL (12.0-16.0) Hematocrit 46.8 % (37.0-47.0) Mean Corpuscular Volume 96 FL (80-99) Mean Corpuscular Hemoglobin 30.9 PG (27.0-31.0) Mean Corpuscular Hemoglobin Concent 32.0 G/DL (32.0-36.0) Red Cell Distribution Width 12.8 % (11.6-14.8) Platelet Count 160 K/UL (150-450) Mean Platelet Volume 7.0 FL (6.5-10.1) Neutrophils (%) (Auto) 75.0 % (45.0-75.0) Lymphocytes (%) (Auto) 18.1 % (20.0-45.0) L Monocytes (%) (Auto) 6.4 % (1.0-10.0) Eosinophils (%) (Auto) 0.1 % (0.0-3.0) Basophils (%) (Auto) 0.4 % (0.0-2.0) Sodium Level 153 MMOL/L (136-145) H Potassium Level 3.5 MMOL/L (3.5-5.1) Chloride Level 117 MMOL/L (98-107) H Carbon Dioxide Level 29 MMOL/L (21-32) Anion Gap 7 mmol/L (5-15) Blood Urea Nitrogen 24 mg/dL (7-18) H Creatinine 0.7 MG/DL (0.55-1.30) Estimat Glomerular Filtration Rate mL/min (>60) Glucose Level 242 MG/DL (74-106) H Calcium Level 8.4 MG/DL (8.5-10.1) L Thyroid Stimulating Hormone (TSH) 0.195 uiU/mL (0.358-3.740) Troponin I 0.062 ng/mL (0.000-0.056) Current Medications Medications (Trade) Dose Ordered Sig/Wayne Route PRN Reason Start Time Stop Time Status Last Admin Dose Admin Acetaminophen (Tylenol) 650 mg Q4H PRN ORAL Mild Pain (Pain Scale 1-3) 02/05/17 00:30 03/07/17 00:29 02/06/17 23:56 Acetaminophen (Tylenol) 650 mg Q4H PRN RECTAL fever 02/05/17 00:30 03/07/17 00:29 02/05/17 04:36 Acetaminophen (Tylenol) 650 mg Q4H PRN RECTAL Mild Pain (Pain Scale 1-3) 02/05/17 00:30 03/07/17 00:29 Amlodipine Besylate (Norvasc) 2.5 mg BID NG 02/07/17 18:00 03/09/17 17:59 Aspirin (ASA) 162 mg DAILY NG 02/08/17 09:00 03/10/17 08:59 Dextrose 1,000 ml @ 100 mls/hr Q10H IV 02/07/17 15:00 03/09/17 14:59 02/07/17 15:25 Dextrose (Dextrose 50%) STAT PRN IV Hypoglycemia 02/05/17 00:45 03/07/17 00:44 Docusate Sodium (Colace) 100 mg EVERY 12 HOURS GT 02/06/17 09:15 03/08/17 09:14 02/07/17 09:44 Famotidine (Pepcid I.v.) 20 mg Q12HR IVP 02/07/17 16:00 03/09/17 15:59 Heparin Sodium (Porcine) (Heparin 5000 units/ml) 5,000 units EVERY 12 HOURS SUBQ 02/05/17 09:00 03/07/17 08:59 02/07/17 09:45 Hydralazine HCl (Apresoline) 25 mg Q4H PRN NG BP of 160 and above 02/07/17 15:00 03/09/17 14:59 Insulin Aspart (NovoLOG) Q4HR SUBQ 02/05/17 01:00 03/07/17 00:59 02/07/17 14:46 Insulin Detemir (Levemir) 15 units BEDTIME SUBQ 02/07/17 21:00 03/09/17 20:59 Metoprolol Tartrate (Lopressor) 12.5 mg Q12HR NG 02/07/17 21:00 03/09/17 20:59 Nitroglycerin (Ntg) 1 patch Q24H TDERMAL 02/07/17 16:00 03/09/17 15:59 Ondansetron HCl (Zofran) 4 mg Q6H PRN IVP Nausea & Vomiting 02/05/17 00:30 03/07/17 00:29 Piperacillin Sod/ Tazobactam Sod 3.375 gm/Dextrose 55 ml @ 13.75 mls/ hr EVERY 8 HOURS IVPB 02/05/17 14:00 02/10/17 13:59 02/07/17 14:48 Polyethylene Glycol (Miralax) 17 gm DAILYPRN PRN ORAL Constipation 02/05/17 00:30 03/07/17 00:29 MOLINA CAMP Feb 07, 2017 16:59
[2017-02-07] MEDS: Nitroglycerin Patch 0.2mg/hr TDERMAL SCH (19:35)
[2017-02-07 20:00] VITALS: BP 161/82
[2017-02-07] MEDS: Metoprolol Tartrate 12.5mg TAB NG SCH (20:51)
[2017-02-07] MEDS ORDERED: Levemir Flexpen SUBQ SCH (21:00)
[2017-02-08] VITALS: BP 142/70
[2017-02-08 01:12] LABS: BASOPHILS % (AUTO) 0.4 % (0.0-2.0); EOSINOPHILS % (AUTO) 0.2 % (0.0-3.0); HEMATOCRIT 40.9 % (37.0-47.0); HEMOGLOBIN 13.4 G/DL (12.0-16.0); LYMPHOCYTES % (AUTO) 24.8 % (20.0-45.0); MEAN CORPUSCULAR VOLUME 94 FL (80-99); MONOCYTES % (AUTO) 7.1 % (1.0-10.0); NEUTROPHILS % (AUTO) 67.4 % (45.0-75.0); PLATELET COUNT 155 K/UL (150-450); RED BLOOD COUNT 4.36 M/UL (4.20-5.40)
[2017-02-08] MEDS: NovoLOG Insulin Flexpen SUBQ SCH ×6 (01:17→23:58)
[2017-02-08 01:37] LABS: ALANINE AMINOTRANSFERASE 15 U/L (12-78); ALBUMIN 2.3 G/DL (3.4-5.0); ALBUMIN/GLOBULIN RATIO 0.6 (1.0-2.7); ALKALINE PHOSPHATASE 105 U/L (46-116); ANION GAP 5 mmol/L (5-15); ASPARTATE AMINO TRANSFERASE 33 U/L (15-37); BILIRUBIN,TOTAL 1.6 MG/DL (0.2-1.0); BLOOD UREA NITROGEN 16 mg/dL (7-18); CALCIUM 7.7 MG/DL (8.5-10.1); CARBON DIOXIDE 32 MMOL/L (21-32); CHLORIDE 111 MMOL/L (98-107); CHOLESTEROL 207 MG/DL (< 200); CREATININE 0.6 MG/DL (0.55-1.30); HDL CHOLESTEROL 41 MG/DL (40-60); SODIUM 148 MMOL/L (136-145); TRIGLYCERIDES 120 MG/DL (30-150)
[2017-02-08 01:39] LABS: BILIRUBIN,DIRECT 0.3 MG/DL (0.0-0.3)
[2017-02-08 01:40] LABS: GAMMA GLUTAMYL TRANSPEPTIDASE 8 U/L (5-85); PHOSPHORUS 3.5 MG/DL (2.5-4.9)
[2017-02-08 04:00] VITALS: BP 164/74
[2017-02-08] MEDS: Piperacillin/Tazobactam 3.375 GM in D5W 55 ML IVPB SCH ×3 (05:21→21:24)
[2017-02-08 08:00] VITALS: BP 145/61
[2017-02-08] MEDS ORDERED: Potassium Chloride 50 MEQ in Sodium Chloride 500ML 550 ML IVPB ONE (11:00)
[2017-02-08] MEDS: Metoprolol Tartrate 12.5mg TAB NG SCH ×2 (11:17→21:24)
[2017-02-08] MEDS: Aspirin Baby 81mg NG SCH (11:17)
[2017-02-08] MEDS: Docusate 100mg/10ml Liq GT SCH ×2 (11:17→21:23)
[2017-02-08] MEDS: Heparin 5000 units/ml inj SUBQ SCH ×2 (11:19→21:25)
[2017-02-08 12:00] VITALS: BP 143/73
--- NOTE | 2017-02-08 15:22 | Nephrology Progress Note ---
Assessment/Plan Assessment - Dehydration, free water deficit leading to - Hypernatremia, improving - Encephalopathy leading to Altered level of consciousness , likely related to CVA (cerebrovascular accident, Large ischemic R MCA stroke - DM, - Hyperosmolar coma due to diabetes - Elevated troponin - Meningioma - PNA (pneumonia) - Sepsis Plan plan: IV to D5W Levemir- increase the dose SS insulin adjust BP meds: Lopressor and norvasc Gastric coverage urine studies nitrate Subjective ROS Limited/Unobtainable: No Constitutional: Reports: malaise Objective Objective Last 24 Hour Vital Signs Date Time Temp Pulse Resp B/P (MAP) Pulse Ox O2 Delivery O2 Flow Rate FiO2 02/08/17 12:00 97.4 60 18 143/73 96 Venturi Mask 02/08/17 12:00 88 02/08/17 11:17 88 145/61 02/08/17 08:00 88 02/08/17 08:00 98.5 65 20 145/61 97 Venturi Mask 02/08/17 04:00 99.5 94 24 164/74 99 Venturi Mask 02/08/17 03:56 73 02/08/17 00:04 62 02/08/17 00:00 98.0 67 16 142/70 97 Room Air 02/07/17 20:51 95 161/82 02/07/17 20:00 98.7 95 16 161/82 97 Room Air 02/07/17 19:59 67 02/07/17 19:35 161/82 02/07/17 19:34 64 161/82 02/07/17 16:00 98.2 78 20 156/76 95 02/07/17 15:24 78 158/77 Intake and Output 02/07/17 02/08/17 19:00 07:00 Intake Total 460 ml 1617.37 ml Output Total 400 ml Balance 60 ml 1617.37 ml Intake Free Water 200 ml IV Total 867.37 ml Tube Feeding 460 ml 550 ml Output Urine Total 400 ml Laboratory Tests 02/07/17 19:00: Troponin I 0.053 02/08/17 00:50: Troponin I 0.048, White Blood Count 8.0, Red Blood Count 4.36, Hemoglobin 13.4, Hematocrit 40.9, Mean Corpuscular Volume 94, Mean Corpuscular Hemoglobin 30.7, Mean Corpuscular Hemoglobin Concent 32.8, Red Cell Distribution Width 12.0, Platelet Count 155, Mean Platelet Volume 7.3, Neutrophils (%) (Auto) 67.4, Lymphocytes (%) (Auto) 24.8, Monocytes (%) (Auto) 7.1, Eosinophils (%) (Auto) 0.2, Basophils (%) (Auto) 0.4, Sodium Level 148H, Potassium Level 3.0L, Chloride Level 111H, Carbon Dioxide Level 32, Anion Gap 5, Blood Urea Nitrogen 16, Creatinine 0.6, Estimat Glomerular Filtration Rate , Glucose Level 302H, Uric Acid 1.6L, Calcium Level 7.7L, Phosphorus Level 3.5, Magnesium Level 2.0, Total Bilirubin 1.6H, Direct Bilirubin 0.3, Gamma Glutamyl Transpeptidase 8, Aspartate Amino Transf (AST/SGOT) 33, Alanine Aminotransferase (ALT/SGPT) 15, Alkaline Phosphatase 105, C-Reactive Protein, Quantitative < 0.4, Pro-B-Type Natriuretic Peptide 331H, Total Protein 6.1L, Albumin 2.3L, Globulin 3.8, Albumin/Globulin Ratio 0.6L, Triglycerides Level 120, Cholesterol Level 207H, LDL Cholesterol 148H, HDL Cholesterol 41, Cholesterol/HDL Ratio 5.0H Height (Feet): 5 Height (Inches): 3.00 Weight (Pounds): 95 General Appearance: no apparent distress, lethargic Cardiovascular: normal rate Respiratory/Chest: decreased breath sounds Abdomen: soft Objective no other changes TENA GILBERT Feb 08, 2017 15:22
[2017-02-08] MEDS: Nitroglycerin Patch 0.2mg/hr TDERMAL SCH (15:45)
[2017-02-08] MEDS: Vitamin D 1000 IU Tab GT SCH (15:46)
--- NOTE | 2017-02-08 15:51 | General Progress Note ---
Assessment/Plan Status: stable Assessment/Plan (1) Dehydration ICD Codes: E86.0 - Dehydration SNOMED: 11382066, 7426747 (2) Meningioma ICD Codes: D32.9 - Benign neoplasm of meninges, unspecified SNOMED: 187210117 (3) CVA (cerebrovascular accident) ICD Codes: I63.9 - Cerebral infarction, unspecified SNOMED: 889813511, 4697476 (4) Large ischemic R MCA stroke (5) Hyperosmolar coma due to secondary diabetes ICD Codes: E13.01 - Other specified diabetes mellitus with hyperosmolarity with coma SNOMED: 770803396021985, 2919138 (6) Altered level of consciousness ICD Codes: R40.4 - Transient alteration of awareness SNOMED: 6112179 (7) Hypernatremia ICD Codes: E87.0 - Hyperosmolality and hypernatremia SNOMED: 07367757 (8) Elevated troponin ICD Codes: R74.8 - Abnormal levels of other serum enzymes SNOMED: 778018741, 373455567 (9) PNA (pneumonia) ICD Codes: J18.9 - Pneumonia, unspecified organism SNOMED: 247121194 (10) Sepsis ICD Codes: A41.9 - Sepsis, unspecified organism SNOMED: 45188311 (11) Hypokalemia Status: not improved Assessment/Plan - d/w family regarding PEG placement. Family agreeable and understands risks and benefits of PEG and would like to proceed. GI consulted - ST unable to do perform video swallow study at this time because of patient's condition - Continue permissive HTN with systolic 140-160s. Hydralazine prn systolic > 180 - continue NG tube feeds - MRI brain reviewed with large right MCA infarct - Continued on zosyn for possible aspiration PNA - check c. diff panel - F/u blood cultures - f/u serial CXR - nephrology consulted given hypernatremia. Continue with 1/2 NS - Trops mildly increased likely in the setting of sepsis. Trend trops - ECHO with 55% EF - Apprec neurology recs - Apprec ID recs - Apprec endo recs - accucheck q6hr with moderate SSi - DVT ppx: heparin - PT/OT/ST eval - Will discuss goals of care once more details on prognosis is reported per neuro FULL CODE Dispo: SNF pending PEG placement D/w RN and all consultants. Subjective Date patient seen: Feb 08, 2017 Time patient seen: 15:51 Allergies: Coded Allergies: No Known Allergies (Unverified , 02/04/17) Subjective No acute o/n events Na improving K low at 3, being repleted D/w family in detail regarding prognosis. They would like to proceed w/ PEG Patient responsive to painful stimuli Cont on tube feeds Objective Last 24 Hour Vital Signs Date Time Temp Pulse Resp B/P (MAP) Pulse Ox O2 Delivery O2 Flow Rate FiO2 02/08/17 15:45 143/73 02/08/17 15:30 88 02/08/17 12:00 97.4 60 18 143/73 96 Venturi Mask 02/08/17 12:00 88 02/08/17 11:17 88 145/61 02/08/17 08:00 88 02/08/17 08:00 98.5 65 20 145/61 97 Venturi Mask 02/08/17 04:00 99.5 94 24 164/74 99 Venturi Mask 02/08/17 03:56 73 02/08/17 00:04 62 02/08/17 00:00 98.0 67 16 142/70 97 Room Air 02/07/17 20:51 95 161/82 02/07/17 20:00 98.7 95 16 161/82 97 Room Air 02/07/17 19:59 67 02/07/17 19:35 161/82 02/07/17 19:34 64 161/82 02/07/17 16:00 98.2 78 20 156/76 95 Intake and Output 02/07/17 02/08/17 19:00 07:00 Intake Total 460 ml 1617.37 ml Output Total 400 ml Balance 60 ml 1617.37 ml Intake Free Water 200 ml IV Total 867.37 ml Tube Feeding 460 ml 550 ml Output Urine Total 400 ml Laboratory Tests 02/07/17 19:00: Troponin I 0.053 02/08/17 00:50: Troponin I 0.048, White Blood Count 8.0, Red Blood Count 4.36, Hemoglobin 13.4, Hematocrit 40.9, Mean Corpuscular Volume 94, Mean Corpuscular Hemoglobin 30.7, Mean Corpuscular Hemoglobin Concent 32.8, Red Cell Distribution Width 12.0, Platelet Count 155, Mean Platelet Volume 7.3, Neutrophils (%) (Auto) 67.4, Lymphocytes (%) (Auto) 24.8, Monocytes (%) (Auto) 7.1, Eosinophils (%) (Auto) 0.2, Basophils (%) (Auto) 0.4, Sodium Level 148H, Potassium Level 3.0L, Chloride Level 111H, Carbon Dioxide Level 32, Anion Gap 5, Blood Urea Nitrogen 16, Creatinine 0.6, Estimat Glomerular Filtration Rate , Glucose Level 302H, Uric Acid 1.6L, Calcium Level 7.7L, Phosphorus Level 3.5, Magnesium Level 2.0, Total Bilirubin 1.6H, Direct Bilirubin 0.3, Gamma Glutamyl Transpeptidase 8, Aspartate Amino Transf (AST/SGOT) 33, Alanine Aminotransferase (ALT/SGPT) 15, Alkaline Phosphatase 105, C-Reactive Protein, Quantitative < 0.4, Pro-B-Type Natriuretic Peptide 331H, Total Protein 6.1L, Albumin 2.3L, Globulin 3.8, Albumin/Globulin Ratio 0.6L, Triglycerides Level 120, Cholesterol Level 207H, LDL Cholesterol 148H, HDL Cholesterol 41, Cholesterol/HDL Ratio 5.0H Height (Feet): 5 Height (Inches): 3.00 Weight (Pounds): 95 Objective General Appearance: other - sleeping EENT: PERRL/EOMI Neck: non-tender, normal alignment, supple Cardiovascular: normal peripheral pulses, normal rate, regular rhythm Respiratory/Chest: chest wall non-tender, lungs clear, normal breath sounds Abdomen: normal bowel sounds, non tender, soft Neurologic: other - RUE with 5/5 strength. Hemiplegia to left side and RLE. responsive to painful stimuli on right side. no gag reflex Jose Alejandro Connell M.D. Feb 08, 2017 15:51
[2017-02-08 16:00] VITALS: BP 157/73
[2017-02-08 20:00] VITALS: BP 121/62
[2017-02-08] MEDS ORDERED: Levemir Flexpen SUBQ SCH (21:00)
[2017-02-09] VITALS (13 sets, daily range): BP systolic 121–161; BP diastolic 60–88
[2017-02-09] MEDS ORDERED: D5 1/2NS 1,000 ML IV SCH (01:00)
[2017-02-09] MEDS: NovoLOG Insulin Flexpen SUBQ SCH ×3 (05:21→18:00)
[2017-02-09] MEDS: Piperacillin/Tazobactam 3.375 GM in D5W 55 ML IVPB SCH ×3 (05:21→21:09)
[2017-02-09 06:06] LABS: BASOPHILS % (AUTO) 0.2 % (0.0-2.0); EOSINOPHILS % (AUTO) 0.4 % (0.0-3.0); HEMATOCRIT 35.6 % (37.0-47.0); HEMOGLOBIN 11.9 G/DL (12.0-16.0); LYMPHOCYTES % (AUTO) 31.4 % (20.0-45.0); MEAN CORPUSCULAR VOLUME 93 FL (80-99); MONOCYTES % (AUTO) 6.6 % (1.0-10.0); NEUTROPHILS % (AUTO) 61.4 % (45.0-75.0); PLATELET COUNT 145 K/UL (150-450); RED BLOOD COUNT 3.85 M/UL (4.20-5.40); RED CELL DISTRIBUTION WIDTH 11.7 % (11.6-14.8); WHITE BLOOD COUNT 6.9 K/UL (4.8-10.8)
[2017-02-09 06:30] LABS: ALANINE AMINOTRANSFERASE 13 U/L (12-78); ALBUMIN/GLOBULIN RATIO 0.6 (1.0-2.7); ALKALINE PHOSPHATASE 86 U/L (46-116); ANION GAP 6 mmol/L (5-15); ASPARTATE AMINO TRANSFERASE 26 U/L (15-37); BLOOD UREA NITROGEN 10 mg/dL (7-18); CALCIUM 7.1 MG/DL (8.5-10.1); CARBON DIOXIDE 28 MMOL/L (21-32); CHLORIDE 108 MMOL/L (98-107); CREATININE 0.4 MG/DL (0.55-1.30); PHOSPHORUS 2.8 MG/DL (2.5-4.9); POTASSIUM 3.2 MMOL/L (3.5-5.1); SODIUM 142 MMOL/L (136-145)
[2017-02-09 06:33] LABS: INR 0.9 (0.9-1.1)
[2017-02-09] MEDS: D5 1/2NS 1,000 ML IV SCH ×2 (07:00→17:02)
[2017-02-09] MEDS: Heparin 5000 units/ml inj SUBQ SCH ×2 (07:56→20:21)
[2017-02-09] MEDS: Docusate 100mg/10ml Liq GT SCH ×2 (08:50→20:18)
[2017-02-09] MEDS: Vitamin D 1000 IU Tab GT SCH (08:51)
[2017-02-09] MEDS: Metoprolol Tartrate 12.5mg TAB NG SCH ×2 (08:51→20:20)
[2017-02-09] MEDS: Aspirin Baby 81mg NG SCH (08:51)
[2017-02-09] MEDS ORDERED: Potassium Chloride 50 MEQ in Sodium Chloride 500ML 550 ML IVPB ONE (10:30)
--- NOTE | 2017-02-09 10:30 | Geriatric Medicine Prog Note ---
DATE: 02/08/2017 NOTE: POOR AUDIO NOTE: INCOMPLETE DICTATION SUBJECTIVE: The patient OBJECTIVE: VITAL SIGNS: Blood pressure 138/69, pulse 50, respiratory rate 20, and temperature 97.6 degrees. LUNGS: Clear. Oneil Bradford M.D. DR: JOB JOB#: [id number] CC:
--- NOTE | 2017-02-09 11:38 | Nephrology Progress Note ---
Assessment/Plan Problem List: (1) Dehydration (2) Hypernatremia (3) Elevated troponin (4) Hyperosmolar coma due to secondary diabetes Assessment - Dehydration, free water deficit leading to - Hypernatremia, improving - Encephalopathy leading to Altered level of consciousness , likely related to CVA (cerebrovascular accident, Large ischemic R MCA stroke - DM, - Hyperosmolar coma due to diabetes - Elevated troponin - Meningioma - PNA (pneumonia) - Sepsis Plan plan: IV adjust rate Levemir- adjust dose SS insulin adjust BP meds: Lopressor and norvasc Gastric coverage urine studies nitrate- troponin now wnl Subjective ROS Limited/Unobtainable: No Constitutional: Reports: malaise, weakness Objective Objective Last 24 Hour Vital Signs Date Time Temp Pulse Resp B/P (MAP) Pulse Ox O2 Delivery O2 Flow Rate FiO2 02/09/17 08:00 98.1 67 18 159/82 98 02/09/17 08:00 66 02/09/17 04:00 97.8 62 18 132/68 98 Room Air 02/09/17 04:00 59 02/09/17 00:00 57 02/09/17 00:00 98.1 64 16 138/69 97 Room Air 02/08/17 21:24 96 132/68 02/08/17 20:00 56 02/08/17 20:00 97.6 58 16 121/62 96 Room Air 02/08/17 17:09 61 157/73 02/08/17 16:00 98.0 61 18 157/73 96 Venturi Mask 02/08/17 15:45 143/73 02/08/17 15:30 88 02/08/17 12:00 97.4 60 18 143/73 96 Venturi Mask 02/08/17 12:00 88 Intake and Output 02/08/17 02/09/17 19:00 07:00 Intake Total 2055 ml 1460.00 ml Output Total 800 ml 650 ml Balance 1255 ml 810.00 ml Intake Free Water 200 ml 100 ml IV Total 1255 ml 1110.00 ml Tube Feeding 600 ml 250 ml Output Urine Total 800 ml 650 ml Laboratory Tests 02/09/17 03:50: White Blood Count 6.9, Red Blood Count 3.85L, Hemoglobin 11.9L, Hematocrit 35.6L , Mean Corpuscular Volume 93, Mean Corpuscular Hemoglobin 30.9, Mean Corpuscular Hemoglobin Concent 33.4, Red Cell Distribution Width 11.7, Platelet Count 145L, Mean Platelet Volume 7.9, Neutrophils (%) (Auto) 61.4, Lymphocytes ( %) (Auto) 31.4, Monocytes (%) (Auto) 6.6, Eosinophils (%) (Auto) 0.4, Basophils (%) (Auto) 0.2, Prothrombin Time 9.7, Prothromb Time International Ratio 0.9, Activated Partial Thromboplast Time 28, Sodium Level 142, Potassium Level 3.2L, Chloride Level 108H, Carbon Dioxide Level 28, Anion Gap 6, Blood Urea Nitrogen 10, Creatinine 0.4L, Estimat Glomerular Filtration Rate , Glucose Level 148#H, Calcium Level 7.1L, Phosphorus Level 2.8, Magnesium Level 1.9, Total Bilirubin 1.0, Aspartate Amino Transf (AST/SGOT) 26, Alanine Aminotransferase (ALT/SGPT) 13, Alkaline Phosphatase 86, C-Reactive Protein, Quantitative < 0.4, Pro-B-Type Natriuretic Peptide 208H, Total Protein 5.4L, Albumin 2.0L, Globulin 3.4, Albumin/Globulin Ratio 0.6L Height (Feet): 5 Height (Inches): 3.00 Weight (Pounds): 95 General Appearance: no apparent distress, lethargic Cardiovascular: normal rate Respiratory/Chest: decreased breath sounds Abdomen: soft Objective no other changes TENA GILBERT Feb 09, 2017 11:38
--- NOTE | 2017-02-09 11:45 | Geriatric Medicine Prog Note ---
DATE: 02/09/2017 NOTE: INCOMPLETE DICTATION The patient . Oneil Bradford M.D. DR: JOB JOB#: [id number] CC:
[2017-02-09] MEDS ORDERED: LR 1000ml 1,000 ML IVLG SCH (13:43)
--- NOTE | 2017-02-09 13:43 | Anethesia Preoperative Eval ---
Anesthesia Pre-op PMH/ROS General Date of Evaluation: Feb 09, 2017 Time of Evaluation: 13:44 Anesthesiologist: Agatha ASA Score: ASA 4 Mallampati Score Class I : Soft palate, uvula, fauces, pillars visible Class II: Soft palate, uvula, fauces visible Class III: Soft palate, base of uvula visible Class IV: Only hard plate visible Mallampati Classification: Class II Surgeon: Kevin Diagnosis: Malnutrition Surgical Procedure: EGD/PEG Anesthesia History: none Family History: no anesthesia problems Allergies: Coded Allergies: No Known Allergies (Unverified , 02/04/17) Medications: see eMAR Past Medical History Neurologic/Psychiatric: Reports: dementia Endocrine: Reports: DM Anesthesia Pre-op Phys. Exam Physician Exam Last Vital Signs Date Time Temp Pulse Resp B/P (MAP) Pulse Ox O2 Delivery O2 Flow Rate FiO2 02/09/17 08:00 98.1 67 18 159/82 98 02/09/17 04:00 Room Air Constitutional: NAD Neurologic: CN 2-12 intact Cardiovascular: RRR Respiratory: CTA Gastrointestinal: S/NT/ND Airway Exam Mallampati Score: Class II MO: limited ROM: limited Teeth: intact Anesthesia Pre-op A/P Labs Hematology Test 02/09/17 03:50 White Blood Count 6.9 K/UL (4.8-10.8) Red Blood Count 3.85 M/UL (4.20-5.40) L Hemoglobin 11.9 G/DL (12.0-16.0) L Hematocrit 35.6 % (37.0-47.0) L Mean Corpuscular Volume 93 FL (80-99) Mean Corpuscular Hemoglobin 30.9 PG (27.0-31.0) Mean Corpuscular Hemoglobin Concent 33.4 G/DL (32.0-36.0) Red Cell Distribution Width 11.7 % (11.6-14.8) Platelet Count 145 K/UL (150-450) L Mean Platelet Volume 7.9 FL (6.5-10.1) Neutrophils (%) (Auto) 61.4 % (45.0-75.0) Lymphocytes (%) (Auto) 31.4 % (20.0-45.0) Monocytes (%) (Auto) 6.6 % (1.0-10.0) Eosinophils (%) (Auto) 0.4 % (0.0-3.0) Basophils (%) (Auto) 0.2 % (0.0-2.0) Coagulation Test 02/09/17 03:50 Prothrombin Time 9.7 SEC (9.30-11.50) Prothromb Time International Ratio 0.9 (0.9-1.1) Activated Partial Thromboplast Time 28 SEC (23-33) Chemistry Test 02/09/17 03:50 Sodium Level 142 MMOL/L (136-145) Potassium Level 3.2 MMOL/L (3.5-5.1) L Chloride Level 108 MMOL/L (98-107) H Carbon Dioxide Level 28 MMOL/L (21-32) Anion Gap 6 mmol/L (5-15) Blood Urea Nitrogen 10 mg/dL (7-18) Creatinine 0.4 MG/DL (0.55-1.30) L Estimat Glomerular Filtration Rate mL/min (>60) Glucose Level 148 MG/DL (74-106) #H Calcium Level 7.1 MG/DL (8.5-10.1) L Phosphorus Level 2.8 MG/DL (2.5-4.9) Magnesium Level 1.9 MG/DL (1.8-2.4) Total Bilirubin 1.0 MG/DL (0.2-1.0) Aspartate Amino Transf (AST/SGOT) 26 U/L (15-37) Alanine Aminotransferase (ALT/SGPT) 13 U/L (12-78) Alkaline Phosphatase 86 U/L (46-116) C-Reactive Protein, Quantitative < 0.4 mg/dL (0.00-0.90) Pro-B-Type Natriuretic Peptide 208 pg/mL (0-125) H Total Protein 5.4 G/DL (6.4-8.2) L Albumin 2.0 G/DL (3.4-5.0) L Globulin 3.4 g/dL Albumin/Globulin Ratio 0.6 (1.0-2.7) L Risk Assessment & Plan Assessment: ASA 4 Plan: GA Status Change Before Surgery: Anatoliy Rosario MD Feb 09, 2017 13:43
--- NOTE | 2017-02-09 13:44 | Pre-Procedure Note/Attestation ---
Pre-Procedure Note/Attestation Complete Prior to Procedure Planned Procedure: not applicable Procedure Narrative: esophagogastroduodenoscopy peg Indications for Procedure Pre-Operative Diagnosis: dysphagia Attestation I attest that I discussed the nature of the procedure; its benefits; risks and complications; and alternatives (and the risks and benefits of such alternatives ), prior to the procedure, with the patient (or the patient's legal customer loyalty representative). I attest that, if there was a reasonable possibility of needing a blood transfusion, the patient (or the patient's legal customer loyalty representative) was given the [facility] standardized written summary, pursuant to the Jake Merrill Blood Safety Act ([place] Health and Safety Code # 1645, as amended). I attest that I re-evaluated the patient just prior to the surgery and that there has been no change in the patient's H&P, except as documented below: TERRY WESTON Feb 09, 2017 13:44
[2017-02-09] MEDS ORDERED: Lidocaine 1% MPF 10mg/ml 5ml ONE (13:45)
[2017-02-09] MEDS ORDERED: Ketorolac 30mg Inj IV PRN (13:45)
[2017-02-09] MEDS ORDERED: Propofol 200mg/20ml IV ONE (13:45)
[2017-02-09] MEDS ORDERED: fentaNYL 100 mcg/2 mL IV PRN (13:45)
[2017-02-09] MEDS ORDERED: HYDROcodone/Acetamin 7.5/325 tab ORAL PRN (13:45)
[2017-02-09] MEDS ORDERED: oxyCODONE HCL/Acetaminophen 5/325mg ORAL PRN (13:45)
[2017-02-09] MEDS ORDERED: Labetalol 5mg/ml 20ml vial IV PRN (13:45)
[2017-02-09] MEDS ORDERED: Atropine Inj 1mg/10ml Syr IV PRN (13:45)
[2017-02-09] MEDS ORDERED: DiphenhydrAMINE 50mg/ml Inj IVP PRN (13:45)
[2017-02-09] MEDS ORDERED: LR 1000ml ONE (13:45)
[2017-02-09] MEDS ORDERED: Alfentanil 2ml Inj ONE (13:45)
[2017-02-09] MEDS ORDERED: Metoclopramide 10mg/2ml Inj IVP PRN (13:45)
[2017-02-09] MEDS ORDERED: LORazepam Inj 2mg/ml 1ml IV PRN (13:45)
[2017-02-09] MEDS ORDERED: Ketorolac 60mg Inj IV PRN (13:45)
[2017-02-09] MEDS ORDERED: NS 500ML IV ONE (13:45)
[2017-02-09] MEDS ORDERED: Midazolam 2mg/2ml Inj IVP PRN (13:45)
[2017-02-09] MEDS ORDERED: Norco 5mg/325mg tab ORAL PRN (13:45)
[2017-02-09] MEDS ORDERED: Midazolam 2mg/2ml Inj ONE (13:45)
[2017-02-09] MEDS ORDERED: Hydromorphone 0.5mg/0.5ml inj IVP PRN (13:45)
--- NOTE | 2017-02-09 13:45 | Immediate Post-Op Evaluation ---
Immediate Post-Op Evalulation Immediate Post-Op Evalulation Procedure: EGD/PEG Date of Evaluation: Feb 09, 2017 Time of Evaluation: 14:30 IV Fluids: 500 LR Blood Products: 0 Estimated Blood Loss: 5 Urinary Output: 0 Blood Pressure Systolic: 143 Blood Pressure Diastolic: 71 Pulse Rate: 67 Respiratory Rate: 16 O2 Sat by Pulse Oximetry: 100 Temperature (Fahrenheit): 98.2 Pain Score (1-10): 1 Nausea: No Vomiting: No Complications 0 Patient Status: awake, reacts, patent, none Hydration Status: adequate Dru Gram Cefoxitin IV Given Within 1 Hr of Incision: Yes Time Given: 13:47 Anatoliy Snider MD Feb 09, 2017 13:45
--- NOTE | 2017-02-09 13:46 | Endoscopy Procedure Note ---
Endoscopy Procedure Note Indication for Procedure: dysphagia Procedures Performed: EGD, PEG Operative Findings/Diagnosis: same Specimen: yes Pt Tolerated Procedure Well: Yes Estimated Blood Loss: none Anesthesiologist: nghia Anesthesia: MAC Implant(s) used?: No 50 yrs or older w/o bx or poly: Not Applicable 10yrs. F/U not recommended: Not Applicable TERRY WESTON Feb 09, 2017 13:46
--- NOTE | 2017-02-09 13:47 | 48 Hour Post Anesthesia Eval ---
Post Anesthesia Evaluation Procedure: EGD/PEG Date of Evaluation: Feb 09, 2017 Time of Evaluation: 16:43 Blood Pressure Systolic: 142 0: 76 Pulse Rate: 68 Respiratory Rate: 18 Temperature (Fahrenheit): 98.4 O2 Sat by Pulse Oximetry: 100 Airway: patent Nausea: No Vomiting: No Pain Intensity: 1 Hydration Status: adequate Cardiopulmonary Status: Stable Mental Status/LOC: patient returned to baseline Follow-up Care/Observations: 0 Post-Anesthesia Complications: 0 Follow-up care needed: N/A Anatoliy Snider MD Feb 09, 2017 13:47
--- NOTE | 2017-02-09 16:13 | Endoscopy Procedure Note ---
Endoscopy Procedure Note Indication for Procedure: dysphagia Procedures Performed: EGD, PEG Operative Findings/Diagnosis: same Specimen: none Pt Tolerated Procedure Well: Yes Estimated Blood Loss: none Anesthesiologist: nghia Anesthesia: MAC Implant(s) used?: No 50 yrs or older w/o bx or poly: Not Applicable 10yrs. F/U not recommended: Not Applicable TERRY WESTON Feb 09, 2017 16:13
[2017-02-09] MEDS: Nitroglycerin Patch 0.2mg/hr TDERMAL SCH (17:15)
--- NOTE | 2017-02-09 17:24 | Infectious Diseases Prog Note ---
Assessment/Plan Assessment/Plan ASSESSMENT AND PLAN: 1. sepsis, ? aspiration pna, fevers, leukocytosis, sirs - zosyn iv - can discharge on augmentin g-tube for 5 days - check labs - watch clinically - fevers and leukocytosis are resolved - d/w Dr. Blount 2.The patient has acute cerebrovascular accident. She is poorly responsive. 3. Diabetes. 4. Dehydration. 5. Intravenous fluids. 6. Hypernatremia. 7. Decreased mental status. 8. Hypokalemia. 9. Meningioma. 10. Past medical history is noted. 11. No allergies. 12. Social history is negative. 13. Family history is noncontributory. 14. MAR was noted. 15. Case was discussed with RN. 16. Continue treatment per primary consultants. Subjective Constitutional: Reports: other - s/p peg, Denies: fever HEENT: Denies: congestion Respiratory: Denies: shortness of breath Cardiovascular: Denies: chest pain Gastrointestinal/Abdominal: Denies: nausea, vomiting Genitourinary: Denies: hematuria Neurologic: Denies: headache Psychiatric: Denies: depression Skin: Denies: rash Hematologic: Denies: bleeding Musculoskeletal: Denies: pain Allergies: Coded Allergies: No Known Allergies (Unverified , 02/04/17) Objective Vital Signs Last 24 Hour Vital Signs Date Time Temp Pulse Resp B/P (MAP) Pulse Ox O2 Delivery O2 Flow Rate FiO2 02/09/17 17:15 123/64 02/09/17 15:00 97.8 68 15 130/62 98 Room Air 02/09/17 14:45 70 16 121/62 98 Room Air 02/09/17 14:40 64 14 122/60 100 Room Air 02/09/17 14:30 66 15 138/64 100 Simple Mask 6.0 02/09/17 14:25 65 12 141/66 100 Simple Mask 6.0 02/09/17 14:19 98.2 66 13 136/67 100 Simple Mask 6.0 02/09/17 14:19 68 18 100 02/09/17 14:18 67 16 100 02/09/17 08:00 98.1 67 18 159/82 98 02/09/17 08:00 66 02/09/17 04:00 97.8 62 18 132/68 98 Room Air 02/09/17 04:00 59 02/09/17 00:00 57 02/09/17 00:00 98.1 64 16 138/69 97 Room Air 02/08/17 21:24 96 132/68 02/08/17 20:00 56 02/08/17 20:00 97.6 58 16 121/62 96 Room Air Height (Feet): 5 Height (Inches): 3.00 Weight (Pounds): 95 General Appearance: no acute distress HEENT: normocephalic, atraumatic, anicteric, mucous membranes moist, supple, no JVD Respiratory/Chest: crackles/rales, rhonchi - bilaterally Cardiovascular: normal rate, regular rhythm, no gallop/murmur Abdomen: normal bowel sounds, soft, non tender, no organomegaly, non distended Genitourinary: other Extremities: no cyanosis Skin: no rash Neurologic/Psychiatric: financial controller II-XII grossly normal, alert, responsive Lymphatic: no neck adenopathy Musculoskeletal: no effusion Objective Chest x-ray - 02/06 - Comparison: 02/04/2017 Findings: A nasogastric tube has been placed with the tip in the stomach. The cardiomediastinal silhouette is unchanged. Scarring is noted in both lower lungs. No acute pulmonary infiltrates. No pleural fluid. Impression: Placement of nasogastric tube in the stomach. Bilateral parenchymal scarring. No acute change from previous exam. Microbiology Date/Time Source Procedure Growth Status 02/04/17 19:25 Blood Blood Culture - Preliminary NO GROWTH AFTER 4 DAYS Resulted 02/04/17 21:45 Nasal Nares Influenza Types A,B Antigen (WILFRIDO) - Final Complete Laboratory Tests Test 02/09/17 03:50 White Blood Count 6.9 K/UL (4.8-10.8) Red Blood Count 3.85 M/UL (4.20-5.40) L Hemoglobin 11.9 G/DL (12.0-16.0) L Hematocrit 35.6 % (37.0-47.0) L Mean Corpuscular Volume 93 FL (80-99) Mean Corpuscular Hemoglobin 30.9 PG (27.0-31.0) Mean Corpuscular Hemoglobin Concent 33.4 G/DL (32.0-36.0) Red Cell Distribution Width 11.7 % (11.6-14.8) Platelet Count 145 K/UL (150-450) L Mean Platelet Volume 7.9 FL (6.5-10.1) Neutrophils (%) (Auto) 61.4 % (45.0-75.0) Lymphocytes (%) (Auto) 31.4 % (20.0-45.0) Monocytes (%) (Auto) 6.6 % (1.0-10.0) Eosinophils (%) (Auto) 0.4 % (0.0-3.0) Basophils (%) (Auto) 0.2 % (0.0-2.0) Prothrombin Time 9.7 SEC (9.30-11.50) Prothromb Time International Ratio 0.9 (0.9-1.1) Activated Partial Thromboplast Time 28 SEC (23-33) Sodium Level 142 MMOL/L (136-145) Potassium Level 3.2 MMOL/L (3.5-5.1) L Chloride Level 108 MMOL/L (98-107) H Carbon Dioxide Level 28 MMOL/L (21-32) Anion Gap 6 mmol/L (5-15) Blood Urea Nitrogen 10 mg/dL (7-18) Creatinine 0.4 MG/DL (0.55-1.30) L Estimat Glomerular Filtration Rate mL/min (>60) Glucose Level 148 MG/DL (74-106) #H Calcium Level 7.1 MG/DL (8.5-10.1) L Phosphorus Level 2.8 MG/DL (2.5-4.9) Magnesium Level 1.9 MG/DL (1.8-2.4) Total Bilirubin 1.0 MG/DL (0.2-1.0) Aspartate Amino Transf (AST/SGOT) 26 U/L (15-37) Alanine Aminotransferase (ALT/SGPT) 13 U/L (12-78) Alkaline Phosphatase 86 U/L (46-116) C-Reactive Protein, Quantitative < 0.4 mg/dL (0.00-0.90) Pro-B-Type Natriuretic Peptide 208 pg/mL (0-125) H Total Protein 5.4 G/DL (6.4-8.2) L Albumin 2.0 G/DL (3.4-5.0) L Globulin 3.4 g/dL Albumin/Globulin Ratio 0.6 (1.0-2.7) L Current Medications Medications (Trade) Dose Ordered Sig/Wayne Route PRN Reason Start Time Stop Time Status Last Admin Dose Admin Acetaminophen (Tylenol) 650 mg Q4H PRN ORAL Mild Pain (Pain Scale 1-3) 02/05/17 00:30 03/07/17 00:29 02/06/17 23:56 Acetaminophen (Tylenol) 650 mg Q4H PRN RECTAL fever 02/05/17 00:30 03/07/17 00:29 02/05/17 04:36 Acetaminophen/ Hydrocodone Bitart (Franklin 5/325) 1 tab Q1H PRN ORAL Mild Pain (Pain Scale 1-3) 02/09/17 13:45 02/09/17 20:00 Acetaminophen/ Hydrocodone Bitart (Franklin 7.5/325) 1 ea Q1H PRN ORAL Moderate Pain (Pain Scale 4-6) 02/09/17 13:45 02/09/17 20:00 Al Hydroxide/Mg Hydroxide (Mylanta) 15 ml Q1H PRN ORAL gi upset 02/09/17 13:45 02/09/17 20:00 Amlodipine Besylate (Norvasc) 5 mg BID NG 02/08/17 18:00 03/10/17 17:59 02/08/17 17:09 Aspirin (ASA) 162 mg DAILY NG 02/08/17 09:00 03/10/17 08:59 02/08/17 11:17 Atropine Sulfate (Atropine) 0.5 mg Q5M PRN IV HR <40 02/09/17 13:45 02/09/17 20:00 Dextrose (Dextrose 50%) STAT PRN IV Hypoglycemia 02/08/17 21:00 03/10/17 20:59 Dextrose/Sodium Chloride 1,000 ml @ 50 mls/hr Q20H IV 02/10/17 01:00 03/12/17 00:59 02/09/17 17:02 Diphenhydramine HCl (Benadryl) 25 mg Q15M PRN IVP Itching 02/09/17 13:45 02/09/17 20:00 Docusate Sodium (Colace) 100 mg EVERY 12 HOURS GT 02/06/17 09:15 03/08/17 09:14 02/08/17 21:23 Famotidine (Pepcid) 20 mg DAILY@0900 GT 02/10/17 09:00 03/12/17 08:59 Fentanyl Citrate (Sublimaze 100 mcg/2 mL) 25 mcg Q10M PRN IV Moderate Pain (Pain Scale 4-6) 02/09/17 13:45 02/09/17 20:00 Heparin Sodium (Porcine) (Heparin 5000 units/ml) 5,000 units EVERY 12 HOURS SUBQ 02/05/17 09:00 03/07/17 08:59 02/08/17 21:25 Hydralazine HCl (Apresoline) 5 mg Q30M PRN IV SBP>160 / DBP>90 02/09/17 13:45 02/09/17 20:00 Hydralazine HCl (Apresoline) 25 mg Q4H PRN NG BP of 160 and above 02/07/17 15:00 03/09/17 14:59 Hydromorphone HCl (Dilaudid) 0.5 mg Q15M PRN IVP Severe Pain (Pain Scale 7-10) 02/09/17 13:45 02/09/17 20:00 Insulin Aspart (NovoLOG) EVERY 6 HOURS SUBQ 02/09/17 00:00 03/11/17 00:00 02/08/17 23:58 Insulin Detemir (Levemir) 20 units BEDTIME SUBQ 02/09/17 21:00 03/11/17 20:59 Ketorolac Tromethamine (Toradol 30mg) 15 mg Q1H PRN IV Moderate Breakthru Pain (5-7) 02/09/17 13:45 02/09/17 20:00 Ketorolac Tromethamine (Toradol) 60 mg Q1H PRN IV Severe Breakthru Pain (>7) 02/09/17 13:45 02/09/17 20:00 Labetalol HCl (Normodyne) 5 mg Q10M PRN IV SBP>160 / DBP>90 02/09/17 13:45 02/09/17 20:00 Lactated Ringer's 1,000 ml @ 10 mls/hr Q24H IVLG 02/09/17 13:43 02/09/17 20:00 Lorazepam (Ativan 2mg/ml 1ml) 1 mg Q15M PRN IV For Anxiety 02/09/17 13:45 02/09/17 20:00 Metoclopramide HCl (Reglan) 10 mg Q1H PRN IVP Nausea & Vomiting 02/09/17 13:45 02/09/17 20:00 Metoprolol Tartrate (Lopressor) 12.5 mg Q12HR NG 02/07/17 21:00 03/09/17 20:59 02/08/17 21:24 Midazolam HCl (Versed 2mg/2ml vial) 1 mg Q15M PRN IVP For Anxiety 02/09/17 13:45 02/09/17 20:00 Nitroglycerin (Ntg) 1 patch Q24H TDERMAL 02/07/17 16:00 03/09/17 15:59 02/09/17 17:15 Ondansetron HCl (Zofran) 4 mg Q1H PRN IVP Nausea & Vomiting 02/09/17 13:45 02/09/17 20:00 Ondansetron HCl (Zofran) 4 mg Q6H PRN IVP Nausea & Vomiting 02/05/17 00:30 03/07/17 00:29 Oxycodone/ Acetaminophen (Percocet 5-325) 1 tab Q1H PRN ORAL Severe Pain (Pain Scale 7-10) 02/09/17 13:45 02/09/17 20:00 Piperacillin Sod/ Tazobactam Sod 3.375 gm/Dextrose 55 ml @ 13.75 mls/ hr EVERY 8 HOURS IVPB 02/09/17 22:00 02/14/17 23:59 UNV Polyethylene Glycol (Miralax) 17 gm DAILYPRN PRN ORAL Constipation 02/05/17 00:30 03/07/17 00:29 Vitamin D (Vitamin D) 5,000 intlu DAILY GT 02/08/17 15:00 03/10/17 14:59 02/08/17 15:46 MOLINA CAMP Feb 09, 2017 17:24
--- NOTE | 2017-02-09 17:46 | Procedure Note ---
DATE OF PROCEDURE: 02/09/2017 PROCEDURE: Upper endoscopy with PEG placement. ANESTHESIA: Per Dr. Snider. INSTRUMENT: Olympus adult flexible upper endoscope. INDICATION: Dysphagia. The procedure, risks, benefits, and possible consequences, including hemorrhage, aspiration, perforation and infection, and alternative treatments, were explained to the patient/legal guardian by Dr. Ovi Brown and the patient/legal guardian understood and accepted these risks. DESCRIPTION OF PROCEDURE: After informed consent was obtained and the patient was adequately sedated, Olympus upper endoscope was advanced from mouth into the second portion of the duodenum and retroflexion was performed in the stomach. The patient had evidence of diffuse atrophic gastritis. Then, under endoscopic guidance and under sterile condition, a 20-Ukrainian pull type of G-tube was successfully placed in the epigastric area. The distance from tip of the tube to the skin was about 2-1/2 cm in size. The patient tolerated the procedure very well without any complication. SUMMARY OF FINDINGS: 1. Status post successful PEG placement. 2. Atrophic gastritis. RECOMMENDATIONS: 1. Abdominal binder. 2. Elevate the head of bed at all times. 3. G-tube flush. 4. G-tube care. 5. Start tube feeding later today. 6. The patient received a dose of antibiotic prior to this procedure. Ovi Brown M.D. DR: Javed JOB#: [id number] CC:
[2017-02-09] MEDS ORDERED: Levemir Flexpen SUBQ SCH (21:00)
[2017-02-10] VITALS: BP_SYST 137; BP_SYST 163; BP_DIAS 68; BP_DIAS 96
[2017-02-10] MEDS: NovoLOG Insulin Flexpen SUBQ SCH ×3 (00:19→11:50)
--- NOTE | 2017-02-10 00:40 | General Progress Note ---
Assessment/Plan Status: stable Assessment/Plan (1) Dehydration ICD Codes: E86.0 - Dehydration SNOMED: 88690278, 6291027 (2) Meningioma ICD Codes: D32.9 - Benign neoplasm of meninges, unspecified SNOMED: 973499628 (3) CVA (cerebrovascular accident) ICD Codes: I63.9 - Cerebral infarction, unspecified SNOMED: 668463789, 0437127 (4) Large ischemic R MCA stroke (5) Hyperosmolar coma due to secondary diabetes ICD Codes: E13.01 - Other specified diabetes mellitus with hyperosmolarity with coma SNOMED: 952688513433595, 6296899 (6) Altered level of consciousness ICD Codes: R40.4 - Transient alteration of awareness SNOMED: 5069103 (7) Hypernatremia ICD Codes: E87.0 - Hyperosmolality and hypernatremia SNOMED: 40078049 (8) Elevated troponin ICD Codes: R74.8 - Abnormal levels of other serum enzymes SNOMED: 518628951, 870480443 (9) PNA (pneumonia) ICD Codes: J18.9 - Pneumonia, unspecified organism SNOMED: 429649915 (10) Sepsis ICD Codes: A41.9 - Sepsis, unspecified organism SNOMED: 76491883 (11) Hypokalemia (12) Dysphagia Status: not improved Assessment/Plan - d/w family regarding PEG placement. Family agreeable and understands risks and benefits of PEG and would like to proceed. GI consulted w/ plan for PEG today - ST unable to do perform video swallow study at this time because of patient's condition - Continue permissive HTN with systolic 140-160s. Hydralazine prn systolic > 180 - continue NG tube feeds--holding currently for PEG Placement - MRI brain reviewed with large right MCA infarct - Continued on zosyn for possible aspiration PNA --> d/c on augmentin for 5 days per ID - check c. diff panel - F/u blood cultures - f/u serial CXR - nephrology consulted given hypernatremia. Continue with 1/2 NS - Trops mildly increased likely in the setting of sepsis. Trend trops - ECHO with 55% EF - Apprec neurology recs - Apprec ID recs - Apprec endo recs - accucheck q6hr with moderate SSi - DVT ppx: heparin - PT/OT/ST eval FULL CODE Dispo: SNF pending PEG placement D/w RN and all consultants. Subjective Date patient seen: Feb 09, 2017 Time patient seen: 18:00 ROS Limited/Unobtainable: Yes Allergies: Coded Allergies: No Known Allergies (Unverified , 02/04/17) Subjective No acute o/n events Na improving K low, being repleted Awaiting PEG today per GI Patient responsive to painful stimuli Cont on tube feeds Objective Last 24 Hour Vital Signs Date Time Temp Pulse Resp B/P (MAP) Pulse Ox O2 Delivery O2 Flow Rate FiO2 02/09/17 21:30 146/88 02/09/17 20:20 88 161/74 02/09/17 20:00 97.9 74 16 161/78 97 Room Air 02/09/17 20:00 64 02/09/17 18:31 63 123/64 02/09/17 17:15 123/64 02/09/17 16:00 98.0 57 18 153/68 97 Room Air 02/09/17 16:00 63 02/09/17 15:00 97.8 68 15 130/62 98 Room Air 02/09/17 14:45 70 16 121/62 98 Room Air 02/09/17 14:40 64 14 122/60 100 Room Air 02/09/17 14:30 66 15 138/64 100 Simple Mask 6.0 02/09/17 14:25 65 12 141/66 100 Simple Mask 6.0 02/09/17 14:19 98.2 66 13 136/67 100 Simple Mask 6.0 02/09/17 14:19 68 18 100 02/09/17 14:18 67 16 100 02/09/17 12:00 99.8 69 18 123/64 97 Room Air 02/09/17 12:00 70 02/09/17 08:00 98.1 67 18 159/82 98 02/09/17 08:00 66 02/09/17 04:00 97.8 62 18 132/68 98 Room Air 02/09/17 04:00 59 Intake and Output 02/09/17 02/10/17 19:00 07:00 Intake Total 1325 ml 291.25 ml Output Total 380 ml 200 ml Balance 945 ml 91.25 ml Intake Free Water 50 ml IV Total 1275 ml 291.25 ml Output Urine Total 380 ml 200 ml Laboratory Tests 02/09/17 03:50: White Blood Count 6.9, Red Blood Count 3.85L, Hemoglobin 11.9L, Hematocrit 35.6L , Mean Corpuscular Volume 93, Mean Corpuscular Hemoglobin 30.9, Mean Corpuscular Hemoglobin Concent 33.4, Red Cell Distribution Width 11.7, Platelet Count 145L, Mean Platelet Volume 7.9, Neutrophils (%) (Auto) 61.4, Lymphocytes ( %) (Auto) 31.4, Monocytes (%) (Auto) 6.6, Eosinophils (%) (Auto) 0.4, Basophils (%) (Auto) 0.2, Prothrombin Time 9.7, Prothromb Time International Ratio 0.9, Activated Partial Thromboplast Time 28, Sodium Level 142, Potassium Level 3.2L, Chloride Level 108H, Carbon Dioxide Level 28, Anion Gap 6, Blood Urea Nitrogen 10, Creatinine 0.4L, Estimat Glomerular Filtration Rate , Glucose Level 148#H, Calcium Level 7.1L, Phosphorus Level 2.8, Magnesium Level 1.9, Total Bilirubin 1.0, Aspartate Amino Transf (AST/SGOT) 26, Alanine Aminotransferase (ALT/SGPT) 13, Alkaline Phosphatase 86, C-Reactive Protein, Quantitative < 0.4, Pro-B-Type Natriuretic Peptide 208H, Total Protein 5.4L, Albumin 2.0L, Globulin 3.4, Albumin/Globulin Ratio 0.6L Height (Feet): 5 Height (Inches): 3.00 Weight (Pounds): 95 Objective General Appearance: other - sleeping EENT: PERRL/EOMI Neck: non-tender, normal alignment, supple Cardiovascular: normal peripheral pulses, normal rate, regular rhythm Respiratory/Chest: chest wall non-tender, lungs clear, normal breath sounds Abdomen: normal bowel sounds, non tender, soft Neurologic: other - RUE with 5/5 strength. Hemiplegia to left side and RLE. responsive to painful stimuli on right side. no gag reflex Jose Alejandro Connell M.D. Feb 10, 2017 00:40
[2017-02-10 04:00] VITALS: BP 162/79
[2017-02-10 04:26] LABS: BASOPHILS % (AUTO) 0.2 % (0.0-2.0); EOSINOPHILS % (AUTO) 0.2 % (0.0-3.0); HEMATOCRIT 36.9 % (37.0-47.0); HEMOGLOBIN 12.7 G/DL (12.0-16.0); LYMPHOCYTES % (AUTO) 17.1 % (20.0-45.0); MEAN CORPUSCULAR VOLUME 91 FL (80-99); MONOCYTES % (AUTO) 4.8 % (1.0-10.0); NEUTROPHILS % (AUTO) 77.7 % (45.0-75.0); PLATELET COUNT 156 K/UL (150-450); RED BLOOD COUNT 4.03 M/UL (4.20-5.40); RED CELL DISTRIBUTION WIDTH 11.2 % (11.6-14.8); WHITE BLOOD COUNT 11.9 K/UL (4.8-10.8)
[2017-02-10 04:42] LABS: ANION GAP 5 mmol/L (5-15); BLOOD UREA NITROGEN 8 mg/dL (7-18); CALCIUM 7.3 MG/DL (8.5-10.1); CARBON DIOXIDE 28 MMOL/L (21-32); CHLORIDE 103 MMOL/L (98-107); CREATININE 0.4 MG/DL (0.55-1.30); POTASSIUM 3.3 MMOL/L (3.5-5.1); SODIUM 136 MMOL/L (136-145)
[2017-02-10] MEDS: Piperacillin/Tazobactam 3.375 GM in D5W 55 ML IVPB SCH ×2 (05:17→14:04)
[2017-02-10 08:00] VITALS: BP 128/62
[2017-02-10] MEDS: Docusate 100mg/10ml Liq GT SCH (08:37)
[2017-02-10] MEDS: Vitamin D 1000 IU Tab GT SCH (08:38)
[2017-02-10] MEDS: Aspirin Baby 81mg NG SCH (08:38)
[2017-02-10] MEDS: Heparin 5000 units/ml inj SUBQ SCH (08:41)
[2017-02-10] MEDS: Metoprolol Tartrate 12.5mg TAB NG SCH (08:41)
[2017-02-10] MEDS ORDERED: Potassium Chloride 40 MEQ in Sodium Chloride 500ML 550 ML IVPB ONE (10:30)
--- NOTE | 2017-02-10 10:58 | Nephrology Progress Note ---
Assessment/Plan Problem List: (1) Dehydration (2) Hypernatremia (3) Elevated troponin (4) Hyperosmolar coma due to secondary diabetes Assessment Has PEG now - Dehydration, free water deficit leading to - Hypernatremia, improving - Encephalopathy leading to Altered level of consciousness , likely related to CVA (cerebrovascular accident, Large ischemic R MCA stroke - DM, - Hyperosmolar coma due to diabetes - Elevated troponin - Meningioma - PNA (pneumonia) - Sepsis Plan plan: DC IV Levemir- adjust dose SS insulin adjust BP meds: Lopressor and norvasc Gastric coverage urine studies nitrate- troponin now wnl ? DC Subjective ROS Limited/Unobtainable: No Constitutional: Reports: malaise Objective Objective Last 24 Hour Vital Signs Date Time Temp Pulse Resp B/P (MAP) Pulse Ox O2 Delivery O2 Flow Rate FiO2 02/10/17 08:41 72 128/62 02/10/17 08:38 72 128/62 02/10/17 08:00 72 02/10/17 08:00 98.4 72 16 128/62 95 Room Air 02/10/17 04:00 98.2 75 16 162/79 99 Room Air 02/10/17 04:00 81 02/10/17 00:00 98.4 66 17 137/68 99 Room Air 02/10/17 00:00 65 02/09/17 21:30 146/88 02/09/17 20:20 88 161/74 02/09/17 20:00 97.9 74 16 161/78 97 Room Air 02/09/17 20:00 64 02/09/17 18:31 63 123/64 02/09/17 17:15 123/64 02/09/17 16:00 98.0 57 18 153/68 97 Room Air 02/09/17 16:00 63 02/09/17 15:00 97.8 68 15 130/62 98 Room Air 02/09/17 14:45 70 16 121/62 98 Room Air 02/09/17 14:40 64 14 122/60 100 Room Air 02/09/17 14:30 66 15 138/64 100 Simple Mask 6.0 02/09/17 14:25 65 12 141/66 100 Simple Mask 6.0 02/09/17 14:19 98.2 66 13 136/67 100 Simple Mask 6.0 02/09/17 14:19 68 18 100 02/09/17 14:18 67 16 100 02/09/17 12:00 99.8 69 18 123/64 97 Room Air 02/09/17 12:00 70 Intake and Output 02/09/17 02/10/17 19:00 07:00 Intake Total 1325 ml 668.75 ml Output Total 380 ml 400 ml Balance 945 ml 268.75 ml Intake Free Water 50 ml IV Total 1275 ml 668.75 ml Output Urine Total 380 ml 400 ml Laboratory Tests 02/10/17 03:15: White Blood Count 11.9#H, Red Blood Count 4.03L, Hemoglobin 12.7, Hematocrit 36.9L, Mean Corpuscular Volume 91, Mean Corpuscular Hemoglobin 31.4H, Mean Corpuscular Hemoglobin Concent 34.4, Red Cell Distribution Width 11.2L, Platelet Count 156, Mean Platelet Volume 8.1, Neutrophils (%) (Auto) 77.7H, Lymphocytes (%) (Auto) 17.1L, Monocytes (%) (Auto) 4.8, Eosinophils (%) (Auto) 0.2, Basophils (%) (Auto) 0.2, Sodium Level 136, Potassium Level 3.3L, Chloride Level 103, Carbon Dioxide Level 28, Anion Gap 5, Blood Urea Nitrogen 8, Creatinine 0.4L, Estimat Glomerular Filtration Rate , Glucose Level 86, Calcium Level 7.3L Height (Feet): 5 Height (Inches): 3.00 Weight (Pounds): 95 General Appearance: no apparent distress Cardiovascular: normal rate Respiratory/Chest: decreased breath sounds Abdomen: soft, other - has PEG Objective no other changes TENA GILBERT Feb 10, 2017 10:58
--- NOTE | 2017-02-10 11:58 | GI Progress Note ---
Assessment/Plan Problems: (1) Encounter for PEG (percutaneous endoscopic gastrostomy) ICD Codes: Z43.1 - Encounter for attention to gastrostomy SNOMED: 213967750, 710488877 (2) Dehydration ICD Codes: E86.0 - Dehydration SNOMED: 55953708, 0796284 (3) Altered level of consciousness ICD Codes: R40.4 - Transient alteration of awareness SNOMED: 3705711 (4) Sepsis ICD Codes: A41.9 - Sepsis, unspecified organism SNOMED: 68826238 Status: stable Status Narrative Discussed with Dr. Brown. Assessment/Plan s/p PEG SUMMARY OF FINDINGS: 1. Status post successful PEG placement. 2. Atrophic gastritis. RECOMMENDATIONS: 1. Abdominal binder. 2. Elevate the head of bed at all times. 3. G-tube flush. 4. G-tube care. 5. Start tube feeding later today. 6. The patient received a dose of antibiotic prior to this procedure. The patient was seen and examined at bedside and all new and available data was reviewed in the patients chart. I agree with the above findings, impression and plan. (Patient seen earlier today. Signature stamp does not reflect patient encounter time.). - Ariel Brown MD Subjective Subjective limited Objective Last 24 Hour Vital Signs Date Time Temp Pulse Resp B/P (MAP) Pulse Ox O2 Delivery O2 Flow Rate FiO2 02/10/17 08:41 72 128/62 02/10/17 08:38 72 128/62 02/10/17 08:00 72 02/10/17 08:00 98.4 72 16 128/62 95 Room Air 02/10/17 04:00 98.2 75 16 162/79 99 Room Air 02/10/17 04:00 81 02/10/17 00:00 98.4 66 17 137/68 99 Room Air 02/10/17 00:00 65 02/09/17 21:30 146/88 02/09/17 20:20 88 161/74 02/09/17 20:00 97.9 74 16 161/78 97 Room Air 02/09/17 20:00 64 02/09/17 18:31 63 123/64 02/09/17 17:15 123/64 02/09/17 16:00 98.0 57 18 153/68 97 Room Air 02/09/17 16:00 63 02/09/17 15:00 97.8 68 15 130/62 98 Room Air 02/09/17 14:45 70 16 121/62 98 Room Air 02/09/17 14:40 64 14 122/60 100 Room Air 02/09/17 14:30 66 15 138/64 100 Simple Mask 6.0 02/09/17 14:25 65 12 141/66 100 Simple Mask 6.0 02/09/17 14:19 98.2 66 13 136/67 100 Simple Mask 6.0 02/09/17 14:19 68 18 100 02/09/17 14:18 67 16 100 02/09/17 12:00 99.8 69 18 123/64 97 Room Air 02/09/17 12:00 70 Intake and Output 02/09/17 02/10/17 19:00 07:00 Intake Total 1325 ml 668.75 ml Output Total 380 ml 400 ml Balance 945 ml 268.75 ml Intake Free Water 50 ml IV Total 1275 ml 668.75 ml Output Urine Total 380 ml 400 ml Laboratory Tests Test 02/10/17 03:15 White Blood Count 11.9 K/UL (4.8-10.8) #H Red Blood Count 4.03 M/UL (4.20-5.40) L Hemoglobin 12.7 G/DL (12.0-16.0) Hematocrit 36.9 % (37.0-47.0) L Mean Corpuscular Volume 91 FL (80-99) Mean Corpuscular Hemoglobin 31.4 PG (27.0-31.0) H Mean Corpuscular Hemoglobin Concent 34.4 G/DL (32.0-36.0) Red Cell Distribution Width 11.2 % (11.6-14.8) L Platelet Count 156 K/UL (150-450) Mean Platelet Volume 8.1 FL (6.5-10.1) Neutrophils (%) (Auto) 77.7 % (45.0-75.0) H Lymphocytes (%) (Auto) 17.1 % (20.0-45.0) L Monocytes (%) (Auto) 4.8 % (1.0-10.0) Eosinophils (%) (Auto) 0.2 % (0.0-3.0) Basophils (%) (Auto) 0.2 % (0.0-2.0) Sodium Level 136 MMOL/L (136-145) Potassium Level 3.3 MMOL/L (3.5-5.1) L Chloride Level 103 MMOL/L (98-107) Carbon Dioxide Level 28 MMOL/L (21-32) Anion Gap 5 mmol/L (5-15) Blood Urea Nitrogen 8 mg/dL (7-18) Creatinine 0.4 MG/DL (0.55-1.30) L Estimat Glomerular Filtration Rate mL/min (>60) Glucose Level 86 MG/DL (74-106) Calcium Level 7.3 MG/DL (8.5-10.1) L Height (Feet): 5 Height (Inches): 3.00 Weight (Pounds): 95 General Appearance: no apparent distress Cardiovascular: normal rate Respiratory/Chest: normal breath sounds Abdominal Exam: site - c/d/i Esperanza Bethea N.P. Feb 10, 2017 11:58 TERRY BROWN Feb 14, 2017 12:29
[2017-02-10 12:00] VITALS: BP 131/67
[2017-02-10] MEDS ORDERED: LEVEMIR FL100 UNIT/1 SUBQ (12:59)
[2017-02-10] MEDS ORDERED: HEPARIN SO5000 UNIT2 SUBQ (12:59)
[2017-02-10] MEDS ORDERED: ASPIRIN81 MG NG (12:59)
[2017-02-10] MEDS ORDERED: COLACE100 MG/10 GT (12:59)
[2017-02-10] MEDS ORDERED: VITAMIN D1000 UNI1 GT (12:59)
[2017-02-10] MEDS ORDERED: LOPRESSOR25 M1 NG (12:59)
[2017-02-10] MEDS ORDERED: NOVOLOG100 UNITS1 SUBQ (12:59)
[2017-02-10] MEDS ORDERED: AUGMENTIN 875-1 EAC1 ORAL (12:59)
[2017-02-10] MEDS ORDERED: NTG1 PATC2 TDERMAL (12:59)
[2017-02-10] MEDS ORDERED: NORVASC5 MG NG (12:59)
--- NOTE | 2017-02-10 13:15 | Geriatric Medicine Prog Note ---
DATE: 02/10/2017 NOTE: POOR AUDIO SUBJECTIVE: The patient is more comfortable and she tolerated PEG placement . OBJECTIVE: GENERAL: No acute distress. VITAL SIGNS: Blood pressure 137/68, pulse 67, respirations 17, and temperature 98 . RESPIRATORY: Clear. CVS: Regular. LABORATORY DATA: The patient's glucose is 160 . ASSESSMENT: 1. improved. 2. , status post percutaneous endoscopic gastrostomy . PLAN: NovoLog q.6 h. Oneil Bradford M.D. DR: JOB JOB#: [id number] CC:
[2017-02-10 16:00] VITALS: BP 103/58
[2017-02-10] MEDS: Nitroglycerin Patch 0.2mg/hr TDERMAL SCH (16:00)
[2017-02-10] MEDS ORDERED: D5 1/2NS 1000ml IV ONE (18:58)
[2017-02-10] MEDS ORDERED: NS 275ml ONE (18:58)
[2017-02-10] MEDS ORDERED: Levemir Flexpen SUBQ SCH (21:00)
[2017-02-10] MEDS ORDERED: Piperacillin/Tazobactam 3.375 GM in NS 110 ML IVPB SCH (22:00)
--- NOTE | 2017-02-11 | Geriatric Medicine Prog Note ---
DATE: 02/10/2017 NOTE: POOR AUDIO SUBJECTIVE: [facility] OBJECTIVE: VITAL SIGNS: Stable. RESPIRATORY: Clear. CVS: Regular. LABORATORY DATA: Glucose 81. ASSESSMENT AND PLAN: Type 2 diabetes, improved control post PEG insertion. 15 to 10 units nightly, also NovoLog q.i.d. 50 mL/hour . Oneil Bradford M.D. DR: JOB JOB#: [id number] CC:
--- NOTE | 2017-02-12 13:11 | Discharge Summary ---
Discharge Summary Hospital Course Date of Admission Feb 04, 2017 at 20:54 Date of Discharge Feb 10, 2017 at 18:59 Admitting Diagnosis ams, dehydration HPI 76-year-old female with a likely underlying history of dementia, who was brought in by EMS due to altered level of consciousness. Much of the history is obtained through chart review and speaking to the patient's brother, who is her primary caregiver. Per the brother, the patient was at baseline, likely demented, minimally verbal, but is ambulatory and tolerating p.o. on her own. She lived with her brother. Yesterday morning when she woke up, he noticed that she was incontinent of stool. Subsequently, she was less interactive than usual and was completely bedbound. He was unable to arouse her, what so ever. He notified EMS who brought the patient into the ER. On the field she was noted to have elevated blood sugar. Since arriving at the hospital, her temperature max has been 101.2 degrees, she has been mildly sinus tachycardic, and saturating well on room air. Her initial labs demonstrated a leukocytosis with a white count of 12, hemoglobin of 17.3 and a platelet count of 219. ABG is pending. She also had a sodium of 152, potassium 3.7, chloride of 108, gap of 17, bicarbonate of 27, BUN of 22, her glucose was 519 on presentation. Her total bilirubin was elevated. CK was elevated. BNP was elevated. Her lactic acid was 2.7 and then 3.3. The lactic acidosis has since resolved with IV fluids. Has hemoglobin A1c of 119 and her last blood sugar is 315. Her troponins have also been mildly elevated, likely in the setting of dehydration. She had a TSH of 2.10. Her urinalysis had 1+ protein, 4+ glucose, 3+ ketones, and 2+ blood. Tox screen was negative. Salicylates and acetaminophen were negative as well as was alcohol. Chest x-ray was done, which showed some atelectasis and a CT of the head was done, which showed a meningioma with likely subsequent edema as well. Marked atrophy and chronic changes suggestive of chronic ischemia were noted in an MRI has just been done, the results of which are pending. Consultations Infectious disease, Pulmonology, Endocrinology, Nephrology Hospital Course Pt was admitted and found to have a large R MCA infarct on MRI brain. She was seen by neurology and medically optimized. She also was found to have likely aspiration pneumonia and treated with course of antibiotics per ID. Pt with persistent dysphagia and [employer] recommended tube feeding. Pt was seen by GI and underwent PEG placement on 02/09/17 once family agreed. Pt was also seen by PT/ OT who recommended SNF. Once medically cleared, she was discharged to SNF. Discharge physical exam: General: alert, cooperative, no distress, appears stated age Head: normocephalic, without obvious abnormality, atraumatic Eyes: conjunctivae/corneas clear. PERRL, EOM's intact Throat: lips, mucosa, and tongue normal. MMM Neck: supple, symmetrical, trachea midline, and no JVD Lungs: clear to auscultation bilaterally Heart: regular rate and rhythm, S1, S2 normal, no murmur, click, rub or gallop Abdomen: soft, non-tender, non-distended, bowel sounds normal; +PEG c/d/i Extremities: extremities normal, atraumatic, no cyanosis or edema Pulses: 2+ and symmetric Skin: skin color, texture, turgor normal; no rashes or lesions Neurologic: RUE with 5/5 strength. Hemiplegia to LLE, LUE and RLE. responsive to painful stimuli on right side= Discharge diagnoses: (1) Dehydration ICD Codes: E86.0 - Dehydration SNOMED: 58147749, 3658310 (2) Meningioma ICD Codes: D32.9 - Benign neoplasm of meninges, unspecified SNOMED: 813842560 (3) CVA (cerebrovascular accident) ICD Codes: I63.9 - Cerebral infarction, unspecified SNOMED: 587967664, 6606363 (4) Acute large ischemic R MCA stroke (5) Hyperosmolar coma due to secondary diabetes ICD Codes: E13.01 - Other specified diabetes mellitus with hyperosmolarity with coma SNOMED: 012528975300692, 9479809 (6) Altered level of consciousness ICD Codes: R40.4 - Transient alteration of awareness SNOMED: 8430173 (7) Hypernatremia ICD Codes: E87.0 - Hyperosmolality and hypernatremia SNOMED: 37576306 (8) Elevated troponin ICD Codes: R74.8 - Abnormal levels of other serum enzymes SNOMED: 886193742, 967290237 (9) PNA (pneumonia) ICD Codes: J18.9 - Pneumonia, unspecified organism SNOMED: 025129056 (10) Sepsis ICD Codes: A41.9 - Sepsis, unspecified organism SNOMED: 00550702 (11) Hypokalemia (12) Dysphagia likely 2/2 CVA, dementia Discharge Medications New Medications: Amoxicillin/Potassium Clav 875-125* (Augmentin 875-125 Tablet*) 1 Each Tablet 1 TAB ORAL TWICE A DAY for 5 Days, #10 TAB Amlodipine Besylate (Norvasc) 5 Mg Tablet 5 MG NG BID for 90 Days, TAB Aspirin* (Aspirin*) 81 Mg Tab.chew 162 MG NG DAILY for 90 Days, TAB Cholecalciferol (Vitamin D3)* (Vitamin D*) 1,000 Unit Tablet 5000 INTLU GT DAILY for 90 Days, TAB Docusate Sodium (Docusate Sodium) 50 Mg/5 Ml Liquid 100 MG GT EVERY 12 HOURS for 90 Days, ML Heparin Sod (Porcine) (Heparin Sodium*) 5 000/1 Ml Vial 5000 UNITS SUBQ EVERY 12 HOURS for 30 Days, VIAL Insulin Aspart (Novolog Flexpen) 100 Unit/1 Ml Insuln.pen 0 UNITS SUBQ EVERY 6 HOURS for 90 Days, EA Insulin Detemir (Levemir Flexpen) 100 Unit/1 Ml Insuln.pen 10 UNITS SUBQ BEDTIME for 90 Days, EA Metoprolol Tartrate (Metoprolol Tartrate) 25 Mg Tablet 12.5 MG NG Q12HR for 90 Days, TAB Nitroglycerin (Nitroglycerin Patch) 1 Each Patch.td24 1 PATCH TDERMAL Q24H for 90 Days, PATCH Discontinued Medications: Metformin Hcl* (Metformin Hcl*) 500 Mg Tablet 500 MG ORAL TWICE A DAY, TAB Discharge Condition Upon Discharge: stable Discharge Disposition Patient was discharged to SNF/Subacute Facility(03) Discharge Diagnoses: Jose Alejandro Connell M.D. Feb 12, 2017 13:11
--- NOTE | 2017-02-17 10:26 | Discharge Summary ---
Discharge Summary Hospital Course Date of Admission Feb 04, 2017 at 20:54 Date of Discharge Feb 10, 2017 at 18:59 Admitting Diagnosis ams, dehydration HPI Tami Doe is a 76 year old female who was admitted on Feb 04, 2017 at 20:54 for Altered Mental Status,Dehydration Consultations Dr. Ovi Rajan Dr [facility] Procedures DATE OF PROCEDURE: 02/09/2017 PROCEDURE: Upper endoscopy with PEG placement. Hospital Course he patient is a 76-year-old female with history of diabetes, hypertension, and likely dementia, presented with alteration in mental status concerning for an acute cerebrovascular accident. She also has clinical signs of dehydration with elevated blood glucose and hemoconcentration and clinically she appears dehydrated as well. She had fevers and leukocytosis, but no obvious source of infection. MRI revealed large right MCA infarct. Unable to awake patient despite painful stimuli. ST unable to do perform video swallow study at this time because of patient's condition NG tube placed and was given tube feedings. She was continued on zosyn for possible aspiration PNA. Trops mildly increased likely in the setting of sepsis. ECHO with 55% EF Nephrology consulted given hypernatremia. Patient has dehydration leading to hypernatremia. Continue with 1/2 NS. Blood sugars monitored and given SS insulin. Dr Brown was consulted. Family agreed to Peg placement. patient underwent EGD with PEG on 02/09/17. Tube feedings started and was tolerating feeding. Patient was discharged back to SNF. Assessment/Plan Status: stable Assessment/Plan (1) Dehydration ICD Codes: E86.0 - Dehydration SNOMED: 95198883, 7479273 (2) Meningioma ICD Codes: D32.9 - Benign neoplasm of meninges, unspecified SNOMED: 200921656 (3) CVA (cerebrovascular accident) ICD Codes: I63.9 - Cerebral infarction, unspecified SNOMED: 960914958, 7911631 (4) Large ischemic R MCA stroke (5) Hyperosmolar coma due to secondary diabetes ICD Codes: E13.01 - Other specified diabetes mellitus with hyperosmolarity with coma SNOMED: 374272956978347, 3276044 (6) Altered level of consciousness ICD Codes: R40.4 - Transient alteration of awareness SNOMED: 5518250 (7) Hypernatremia ICD Codes: E87.0 - Hyperosmolality and hypernatremia SNOMED: 48366603 (8) Elevated troponin ICD Codes: R74.8 - Abnormal levels of other serum enzymes SNOMED: 161726257, 500542071 (9) PNA (pneumonia) ICD Codes: J18.9 - Pneumonia, unspecified organism SNOMED: 441597832 (10) Sepsis ICD Codes: A41.9 - Sepsis, unspecified organism SNOMED: 84703143 (11) Hypokalemia (12) Dysphagia Status: not improved --I have been assigned to complete a DC summary on this account, I was not involved with the patient's management.--MILAD Pate-- Discharge Discharge Disposition Patient was discharged to SNF/Subacute Facility(03) Discharge Diagnoses: Kori Prince NP Feb 17, 2017 10:26
== END 2017-02-10 18:59 | DRG 64 ==
LOC: EDBD 18:38 → EMR 18:50 → 2W 20:54 → EDBEDREQ 21:54 → EDBEDREQSVC 21:54 → EDBEDREQ 02-05 05:50 → 2W 02-05 09:17
PROC: 0DH63UZ Insertion of Feeding Device into Stomach, Percutaneous Approach (ICD-10-PCS; principal; 2017-02-09 13:50)
DX: I63.9 Cerebral infarction, unspecified (principal); E11.01 Type 2 diabetes mellitus with hyperosmolarity with coma; J18.9 Pneumonia, unspecified organism; A41.9 Sepsis, unspecified organism; G93.40 Encephalopathy, unspecified; G81.94 Hemiplegia, unspecified affecting left nondominant side; E87.0 Hyperosmolality and hypernatremia; E87.2 Acidosis; Z68.1 Body mass index [BMI] 19.9 or less, adult; I69.391 Dysphagia following cerebral infarction; E86.0 Dehydration; R13.10 Dysphagia, unspecified; Z78.1 Physical restraint status; D32.9 Benign neoplasm of meninges, unspecified; E87.6 Hypokalemia; R00.0 Tachycardia, unspecified; K29.40 Chronic atrophic gastritis without bleeding; Z79.84 Long term (current) use of oral hypoglycemic drugs; D72.829 Elevated white blood cell count, unspecified
CPT/HCPCS: 36415; 36600; 70450; 70553; 71010; 74000; 80048; 80053; 80061; 80076; 80307; 80329; 81003; 82010; 82248; 82550; 82553; 82803; 82962; 82977; 83036; 83605; 83735; 83880; 84100; 84443; 84484; 84550; 85007; 85025; 85610; 85730; 86140; 86710; 87040; 93005; 93306; 94003; 94150; 99285; A9585; J1815; J2250; J3490; J8499; S5561

== ENCOUNTER 2017-02-24 22:58 | Inpatient (IN) | payer MEDICARE ==
[~2017-02-24] VITALS: Ht 162.6 cm; Wt 52.2 kg
[~2017-02-24 22:58] MED LIST changes: +ASPIRIN81 MG NG; +AUGMENTIN 875-1 EAC1 ORAL; +COLACE100 MG/10 GT; +HEPARIN SO5000 UNIT2 SUBQ; +LEVEMIR FL100 UNIT/1 SUBQ; +LOPRESSOR25 M1 NG; +NORVASC5 MG NG; +NOVOLOG100 UNITS1 SUBQ; +NTG1 PATC2 TDERMAL; +VITAMIN D1000 UNI1 GT
[2017-02-24] MEDS ORDERED: LR 1000ml 1,000 ML IV SCH ×2 (23:15)
--- NOTE | 2017-02-24 23:25 | Emergency Room Report ---
History of Present Illness General Chief Complaint: Abnormal Labs Source: Medical Record, EMS Present Illness HPI Is a 76-year-old female with history of dementia. She is a skilled nursing patient. She presents with chief complaint of abnormal lab. Her sodium was very high. She was admitted a couple weeks ago for the same thing. Unable to get any history from this patient. She does have a G-tube. Allergies: Coded Allergies: No Known Allergies (Unverified , 02/04/17) Patient History Past Medical History: see triage record, old chart reviewed, dementia Past Surgical History: other Pertinent Family History: none Social History: Denies: smoking Now: No Immunizations: other Reviewed Nursing Documentation: PMH: Agreed, PSxH: Agreed Nursing Documentation-PMH Past Medical History: No History, Except For Hx Hypertension: Yes Hx Diabetes: Yes Hx Neurological Problems: Yes - episodes of confusion Review of Systems Constitutional: Reports: malaise, weakness All Other Systems: limited - Secondary to her condition Physical Exam Vital Signs Date Time Temp Pulse Resp B/P (MAP) Pulse Ox O2 Delivery O2 Flow Rate FiO2 02/24/17 22:39 97.5 115 18 121/71 98 vitals with tachycardia Sp02 EP Interpretation: reviewed, normal General Appearance: cachetic, Chronically Ill Head: normocephalic, atraumatic Eyes: bilateral eye PERRL, bilateral eye EOMI ENT: hearing grossly normal, dry mucus membranes Neck: full range of motion, supple, no meningismus Respiratory: chest non-tender, lungs clear, normal breath sounds Cardiovascular #1: regular rate, rhythm, no murmur Gastrointestinal: normal bowel sounds, non tender, no mass, no organomegaly, no bruit, non-distended Musculoskeletal: back normal, normal range of motion Neurologic: grossly normal Skin: warm/dry Medical Decision Making Diagnostic Impression: Primary Impression: Hypernatremia Additional Impression: Dehydration, severe ER Course Patient presents with severe dehydration and hypernatremia. No evidence of any infection. Patient mental status improved after IV fluid. I discussed the case with Dr. Stanton who will admit. Lab Results Impression labs with severe dehydration. Last Vital Signs Date Time Temp Pulse Resp B/P (MAP) Pulse Ox O2 Delivery O2 Flow Rate FiO2 02/24/17 22:39 97.5 115 18 121/71 98 Status: improved Disposition: ADMITTED INPATIENT Condition: Serious ESVIN BACA M.D. Feb 24, 2017 23:25
[2017-02-24 23:48] VITALS: BP 102/55
[2017-02-24 23:48] LABS: BASOPHILS % (AUTO) 0.4 % (0.0-2.0); EOSINOPHILS % (AUTO) 0.7 % (0.0-3.0); HEMATOCRIT 46.1 % (37.0-47.0); HEMOGLOBIN 15.2 G/DL (12.0-16.0); LYMPHOCYTES % (AUTO) 21.7 % (20.0-45.0); MEAN CORPUSCULAR VOLUME 95 FL (80-99); MONOCYTES % (AUTO) 5.1 % (1.0-10.0); NEUTROPHILS % (AUTO) 72.1 % (45.0-75.0); PLATELET COUNT 352 K/UL (150-450); RED BLOOD COUNT 4.83 M/UL (4.20-5.40); RED CELL DISTRIBUTION WIDTH 13.1 % (11.6-14.8); WHITE BLOOD COUNT 9.2 K/UL (4.8-10.8)
[2017-02-24 23:54] LABS: ANION GAP 7 mmol/L (5-15); BLOOD UREA NITROGEN 40 mg/dL (7-18); CALCIUM 10.2 MG/DL (8.5-10.1); CARBON DIOXIDE 34 MMOL/L (21-32); CHLORIDE 123 MMOL/L (98-107); CREATININE 0.6 MG/DL (0.55-1.30); POTASSIUM 3.3 MMOL/L (3.5-5.1)
[2017-02-24 23:56] LABS: APPEARANCE,URINE SLIGHTLY CLOUDY; BILIRUBIN, URINE NEGATIVE (NEGATIVE); GLUCOSE, URINE (UA) 2+ (NEGATIVE); KETONES,URINE 1+ (NEGATIVE); LEUKOCYTE ESTERASE ,URINE NEGATIVE (NEGATIVE); NITRITE,URINE NEGATIVE (NEGATIVE); PH,URINE 8 (4.5-8.0); PROTEIN,URINE 1+ (NEGATIVE); UROBILINOGEN,URINE 4 MG/DL (0.0-1.0)
[2017-02-24 23:56] LABS: SODIUM 164 MMOL/L (136-145)
[2017-02-25] VITALS (7 sets, daily range): BP systolic 108–145; BP diastolic 59–80
[2017-02-25 00:02] LABS: COLOR,URINE YELLOW
[2017-02-25] MEDS: D5 1/2NS 1,000 ML IV SCH ×3 (04:06→18:30)
[2017-02-25 10:22] LABS: BASOPHILS % (AUTO) 0.7 % (0.0-2.0); EOSINOPHILS % (AUTO) 0.6 % (0.0-3.0); HEMATOCRIT 39.7 % (37.0-47.0); HEMOGLOBIN 12.9 G/DL (12.0-16.0); LYMPHOCYTES % (AUTO) 22.2 % (20.0-45.0); MEAN CORPUSCULAR VOLUME 96 FL (80-99); MONOCYTES % (AUTO) 5.5 % (1.0-10.0); PLATELET COUNT 276 K/UL (150-450); RED BLOOD COUNT 4.12 M/UL (4.20-5.40); RED CELL DISTRIBUTION WIDTH 13.4 % (11.6-14.8); WHITE BLOOD COUNT 8.1 K/UL (4.8-10.8)
[2017-02-25] MEDS: Docusate 100mg/10ml Liq GT SCH ×2 (10:39→20:35)
[2017-02-25] MEDS: Aspirin Baby 81mg NG SCH (10:39)
[2017-02-25] MEDS: Metoprolol Tartrate 12.5mg TAB NG SCH ×2 (10:40→20:36)
[2017-02-25] MEDS: Heparin 5000 units/ml inj SUBQ SCH ×2 (10:42→20:37)
[2017-02-25] MEDS: NovoLOG Insulin Flexpen SUBQ SCH ×3 (10:43→16:40)
[2017-02-25 10:57] LABS: ANION GAP 7 mmol/L (5-15); BLOOD UREA NITROGEN 23 mg/dL (7-18); CALCIUM 9.2 MG/DL (8.5-10.1); CARBON DIOXIDE 30 MMOL/L (21-32); CHLORIDE 120 MMOL/L (98-107); CREATININE 0.5 MG/DL (0.55-1.30); POTASSIUM 3.7 MMOL/L (3.5-5.1); SODIUM 157 MMOL/L (136-145)
[2017-02-25] MEDS: Vitamin D 1000 IU Tab GT SCH (11:01)
[2017-02-25] MEDS: Nitroglycerin Patch 0.2mg/hr TDERMAL SCH (11:02)
[2017-02-25] MEDS ORDERED: NovoLOG Insulin Flexpen SUBQ SCH (12:00)
--- NOTE | 2017-02-25 13:04 | History and Physical ---
History of Present Illness General Date patient seen: Feb 25, 2017 Reason for Hospitalization: Abnormal Labs Present Illness HPI 76 yo female with advance dementia - GT-tube dependent, nonverbal noncommunicative was sent from SNF with abnormal soidum level. No report of fevers, chills, diarrhea. Unble to obtain further history given baseline dementia Allergies: Coded Allergies: No Known Allergies (Unverified , 02/04/17) Medication History Scheduled Amlodipine Besylate (Norvasc), 5 MG NG BID Amoxicillin/Potassium Clav 875-125* (Augmentin 875-125 Tablet*), 1 TAB ORAL TWICE A DAY Aspirin* (Aspirin*), 162 MG NG DAILY Cholecalciferol (Vitamin D3)* (Vitamin D*), 5,000 INTLU GT DAILY Docusate Sodium (Docusate Sodium), 100 MG GT EVERY 12 HOURS Heparin Sod (Porcine) (Heparin Sodium*), 5,000 UNITS SUBQ EVERY 12 HOURS Insulin Aspart (Novolog Flexpen), 0 UNITS SUBQ EVERY 6 HOURS Insulin Detemir (Levemir Flexpen), 10 UNITS SUBQ BEDTIME Metoprolol Tartrate (Metoprolol Tartrate), 12.5 MG NG Q12HR Nitroglycerin (Nitroglycerin Patch), 1 PATCH TDERMAL Q24H Patient History Healthcare decision maker sue Archibald Resuscitation status Full Code Advanced Directive on File Review of Systems ROS Narrative UNABLE TO OBTAIN DUE TO ADVANCED DEMENTIA Physical Exam General Appearance: no apparent distress, cachetic HEENT: normocephalic, atraumatic Neck: non-tender, supple Respiratory/Chest: chest wall non-tender, lungs clear, normal breath sounds Cardiovascular/Chest: normal peripheral pulses, no gallop/murmur, no JVD Abdomen: normal bowel sounds, non tender, soft Extremities: no edema, no cyanosis Skin Exam: normal pigmentation Last 24 Hour Vital Signs Date Time Temp Pulse Resp B/P (MAP) Pulse Ox O2 Delivery O2 Flow Rate FiO2 02/25/17 11:47 97.6 73 21 108/61 100 02/25/17 11:02 140/80 02/25/17 10:41 89 140/80 02/25/17 10:40 89 140/80 02/25/17 08:58 98.2 89 21 140/80 97 02/25/17 04:00 98.0 94 18 127/74 95 Room Air 02/25/17 02:15 97.6 99 16 145/76 95 Room Air 02/25/17 02:00 98.4 99 20 131/63 95 Room Air 02/25/17 00:56 99 20 131/63 95 Room Air 02/24/17 23:48 98.4 90 16 102/55 96 Room Air 02/24/17 22:39 97.5 115 18 121/71 98 Intake and Output 02/24/17 02/25/17 19:00 07:00 Intake Total 1000 ml Output Total 320 ml Balance 680 ml IV Total 1000 ml Output Urine Total 320 ml Laboratory Tests Test 02/24/17 22:55 02/24/17 23:45 02/25/17 10:00 White Blood Count 9.2 K/UL (4.8-10.8) 8.1 K/UL (4.8-10.8) Red Blood Count 4.83 M/UL (4.20-5.40) 4.12 M/UL (4.20-5.40) L Hemoglobin 15.2 G/DL (12.0-16.0) 12.9 G/DL (12.0-16.0) Hematocrit 46.1 % (37.0-47.0) 39.7 % (37.0-47.0) Mean Corpuscular Volume 95 FL (80-99) 96 FL (80-99) Mean Corpuscular Hemoglobin 31.4 PG (27.0-31.0) H 31.4 PG (27.0-31.0) H Mean Corpuscular Hemoglobin Concent 33.0 G/DL (32.0-36.0) 32.6 G/DL (32.0-36.0) Red Cell Distribution Width 13.1 % (11.6-14.8) 13.4 % (11.6-14.8) Platelet Count 352 K/UL (150-450) 276 K/UL (150-450) Mean Platelet Volume 7.0 FL (6.5-10.1) 7.2 FL (6.5-10.1) Neutrophils (%) (Auto) 72.1 % (45.0-75.0) 71.0 % (45.0-75.0) Lymphocytes (%) (Auto) 21.7 % (20.0-45.0) 22.2 % (20.0-45.0) Monocytes (%) (Auto) 5.1 % (1.0-10.0) 5.5 % (1.0-10.0) Eosinophils (%) (Auto) 0.7 % (0.0-3.0) 0.6 % (0.0-3.0) Basophils (%) (Auto) 0.4 % (0.0-2.0) 0.7 % (0.0-2.0) Sodium Level 164 MMOL/L (136-145) *H 157 MMOL/L (136-145) H Potassium Level 3.3 MMOL/L (3.5-5.1) L 3.7 MMOL/L (3.5-5.1) Chloride Level 123 MMOL/L (98-107) H 120 MMOL/L (98-107) H Carbon Dioxide Level 34 MMOL/L (21-32) H 30 MMOL/L (21-32) Anion Gap 7 mmol/L (5-15) 7 mmol/L (5-15) Blood Urea Nitrogen 40 mg/dL (7-18) H 23 mg/dL (7-18) H Creatinine 0.6 MG/DL (0.55-1.30) 0.5 MG/DL (0.55-1.30) L Estimat Glomerular Filtration Rate mL/min (>60) mL/min (>60) Glucose Level 104 MG/DL (74-106) 376 MG/DL (74-106) #H Calcium Level 10.2 MG/DL (8.5-10.1) H 9.2 MG/DL (8.5-10.1) Urine Color Yellow Urine Appearance Slightly cloudy Urine pH 8 (4.5-8.0) Urine Specific Hoffman 1.015 (1.005-1.035) Urine Protein 1+ (NEGATIVE) H Urine Glucose (UA) 2+ (NEGATIVE) H Urine Ketones 1+ (NEGATIVE) H Urine Occult Blood Negative (NEGATIVE) Urine Nitrite Negative (NEGATIVE) Urine Bilirubin Negative (NEGATIVE) Urine Urobilinogen 4 MG/DL (0.0-1.0) H Urine Leukocyte Esterase Negative (NEGATIVE) Urine RBC 0 /HPF (0 - 2) Urine WBC 0-2 /HPF (0 - 2) Urine Squamous Epithelial Cells Occasional /LPF Urine Bacteria Occasional /HPF (NONE) Urine Yeast Moderate /HPF (NONE) H C-Reactive Protein, Quantitative < 0.4 mg/dL (0.00-0.90) Height (Feet): 5 Height (Inches): 4.00 Weight (Pounds): 115 Medications Current Medications Medications (Trade) Dose Ordered Sig/Wayne Route PRN Reason Start Time Stop Time Status Last Admin Dose Admin Amlodipine Besylate (Norvasc) 5 mg BID NG 02/25/17 09:00 03/27/17 08:59 02/25/17 10:41 Aspirin (ASA) 162 mg DAILY NG 02/25/17 09:00 03/27/17 08:59 02/25/17 10:39 Dextrose (Dextrose 50%) STAT PRN IV Hypoglycemia 02/25/17 06:30 03/27/17 06:29 Dextrose/Sodium Chloride 1,000 ml @ 125 mls/hr Q8H IV 02/25/17 02:30 03/27/17 02:29 02/25/17 11:02 Docusate Sodium (Colace) 100 mg EVERY 12 HOURS GT 02/25/17 09:00 03/27/17 08:59 02/25/17 10:39 Heparin Sodium (Porcine) (Heparin 5000 units/ml) 5,000 units EVERY 12 HOURS SUBQ 02/25/17 09:00 03/27/17 08:59 02/25/17 10:42 Insulin Aspart (NovoLOG) BEFORE MEALS AND HS SUBQ 02/25/17 07:30 03/27/17 07:29 02/25/17 10:43 Insulin Detemir (Levemir) 10 units BEDTIME SUBQ 02/25/17 21:00 03/27/17 20:59 Metoprolol Tartrate (Lopressor) 12.5 mg Q12HR NG 02/25/17 09:00 03/27/17 08:59 02/25/17 10:40 Nitroglycerin (Ntg) 1 patch Q24H TDERMAL 02/25/17 09:00 03/27/17 08:59 02/25/17 11:02 Vitamin D (Vitamin D) 5,000 intlu DAILY GT 02/25/17 09:00 03/27/17 08:59 02/25/17 11:01 Assessment/Plan Assessment/Plan # Dehydration, severe #hypernatremia #history of CVA- Large MCA #Advanced dementia #g-tube dependence #HTN- controlled #DM - admit inpatient - nephrology consulted - increased free water flushed - BMP q8hr - monitor soidum level closely - resume tube feed with inceased free water flushes - resume [employer] meds - ISS - accuchecks q4hr - DVT ppx - DC back to SNF 2-3 pending correction of metobolic derangeement Sergio Avila M.D. Feb 25, 2017 13:04
--- NOTE | 2017-02-25 13:16 | Consultation ---
Consult Note Consult Note asked to eval at the request of Dr Yates Patient known to me from her previous admission Is a 76-year-old female with history of dementia. She is a care home patient. She presents with chief complaint of abnormal lab. Her sodium was very high. She was admitted a couple weeks ago for the same thing. Unable to get any history from this patient. She does have a G-tube. Hx Hypertension: Yes Hx Diabetes: Yes Hx Neurological Problems: Yes - episodes of confusion examined- data reviewed . Assessment/Plan status: - Dehydration, free water deficit leading to - Hypernatremia - Encephalopathy leading to Altered level of consciousness , likely related to CVA (cerebrovascular accident, Large ischemic R MCA stroke - DM, - - h/o Elevated troponin - h/o Meningioma - h/o PNA (pneumonia) - Sepsis plan: IV to 1/2 ns Levemir SS insulin adjust BP meds: Lopressor and norvasc Gastric coverage urine studies nitrate TENA GILBERT Feb 25, 2017 13:16
[2017-02-25 13:34] LABS: ANION GAP 6 mmol/L (5-15); BLOOD UREA NITROGEN 21 mg/dL (7-18); CARBON DIOXIDE 31 MMOL/L (21-32); CHLORIDE 119 MMOL/L (98-107); CREATININE 0.5 MG/DL (0.55-1.30); POTASSIUM 3.6 MMOL/L (3.5-5.1); SODIUM 156 MMOL/L (136-145)
[2017-02-25] MEDS: Levemir Flexpen SUBQ SCH (20:37)
[2017-02-25] MEDS ORDERED: Levemir Flexpen SUBQ SCH (21:00)
[2017-02-26] VITALS: BP 151/72
[2017-02-26] MEDS: D5 1/2NS 1,000 ML IV SCH (02:22)
[2017-02-26 04:00] VITALS: BP 158/68
[2017-02-26] MEDS: NovoLOG Insulin Flexpen SUBQ SCH ×4 (05:46→17:55)
[2017-02-26 08:00] VITALS: BP 155/81
[2017-02-26 08:32] LABS: BASOPHILS % (AUTO) 0.5 % (0.0-2.0); EOSINOPHILS % (AUTO) 1.3 % (0.0-3.0); HEMOGLOBIN 13.6 G/DL (12.0-16.0); LYMPHOCYTES % (AUTO) 29.7 % (20.0-45.0); MEAN CORPUSCULAR VOLUME 95 FL (80-99); MONOCYTES % (AUTO) 5.4 % (1.0-10.0); NEUTROPHILS % (AUTO) 63.1 % (45.0-75.0); PLATELET COUNT 247 K/UL (150-450); RED BLOOD COUNT 4.32 M/UL (4.20-5.40); RED CELL DISTRIBUTION WIDTH 13.2 % (11.6-14.8); WHITE BLOOD COUNT 6.9 K/UL (4.8-10.8)
[2017-02-26 08:52] LABS: ALANINE AMINOTRANSFERASE 20 U/L (12-78); ALBUMIN 2.3 G/DL (3.4-5.0); ALBUMIN/GLOBULIN RATIO 0.5 (1.0-2.7); ALKALINE PHOSPHATASE 86 U/L (46-116); ANION GAP 5 mmol/L (5-15); ASPARTATE AMINO TRANSFERASE 19 U/L (15-37); BILIRUBIN,TOTAL 0.5 MG/DL (0.2-1.0); BLOOD UREA NITROGEN 18 mg/dL (7-18); CALCIUM 9.3 MG/DL (8.5-10.1); CARBON DIOXIDE 30 MMOL/L (21-32); CHLORIDE 116 MMOL/L (98-107); CREATINE KINASE 25 U/L (26-308); CREATININE 0.4 MG/DL (0.55-1.30); GAMMA GLUTAMYL TRANSPEPTIDASE 23 U/L (5-85); PHOSPHORUS 3.5 MG/DL (2.5-4.9); POTASSIUM 3.5 MMOL/L (3.5-5.1); SODIUM 151 MMOL/L (136-145)
[2017-02-26] MEDS: Vitamin D 1000 IU Tab GT SCH (10:48)
[2017-02-26] MEDS: Docusate 100mg/10ml Liq GT SCH ×2 (10:48→20:33)
[2017-02-26] MEDS: Aspirin Baby 81mg NG SCH (10:48)
[2017-02-26] MEDS: Metoprolol Tartrate 12.5mg TAB NG SCH ×2 (10:49→20:33)
[2017-02-26] MEDS: Nitroglycerin Patch 0.2mg/hr TDERMAL SCH (10:49)
[2017-02-26] MEDS: Heparin 5000 units/ml inj SUBQ SCH ×2 (10:53→20:34)
[2017-02-26 11:45] VITALS: BP 159/78
--- NOTE | 2017-02-26 12:38 | Nephrology Progress Note ---
Assessment/Plan Problem List: (1) Dehydration, severe (2) Hypernatremia Assessment - Dehydration, free water deficit leading to - Hypernatremia - Encephalopathy leading to Altered level of consciousness , likely related to CVA (cerebrovascular accident, Large ischemic R MCA stroke - DM, - - h/o Elevated troponin - h/o Meningioma - h/o PNA (pneumonia) - Sepsis Plan plan: IV to D5w H2o via NGT / GT Levemir SS insulin adjust BP meds: Lopressor and norvasc Gastric coverage urine studies nitrate Subjective ROS Limited/Unobtainable: No Constitutional: Reports: malaise, weakness Objective Objective Last 24 Hour Vital Signs Date Time Temp Pulse Resp B/P (MAP) Pulse Ox O2 Delivery O2 Flow Rate FiO2 02/26/17 11:45 97.6 64 21 159/78 97 02/26/17 10:49 66 155/81 02/26/17 10:49 155/81 02/26/17 10:49 66 155/81 02/26/17 08:00 97.8 66 20 155/81 98 02/26/17 04:00 96.4 59 18 158/68 99 Room Air 02/26/17 00:00 97.5 67 18 151/72 100 Room Air 02/25/17 20:36 71 137/68 02/25/17 20:00 97.7 71 18 137/68 98 Room Air 02/25/17 17:59 61 116/59 02/25/17 16:00 97.3 61 20 116/59 98 Intake and Output 02/25/17 02/26/17 19:00 07:00 Intake Total 330 ml 380 ml Output Total 1900 ml 600 ml Balance -1570 ml -220 ml Intake Oral 0 ml Free Water 30 ml 30 ml Tube Feeding 300 ml 350 ml Output Urine Total 1900 ml 600 ml # Bowel Movements 2 Laboratory Tests 02/25/17 13:05: Sodium Level 156H, Potassium Level 3.6, Chloride Level 119H, Carbon Dioxide Level 31, Anion Gap 6, Blood Urea Nitrogen 21H, Creatinine 0.5L, Estimat Glomerular Filtration Rate , Glucose Level 241#H, Calcium Level 9.0 02/25/17 22:20: Urine Random Sodium 143H 02/26/17 06:50: Sodium Level 151H, Potassium Level 3.5, Chloride Level 116H, Carbon Dioxide Level 30, Anion Gap 5, Blood Urea Nitrogen 18, Creatinine 0.4L, Estimat Glomerular Filtration Rate , Glucose Level 184H, Calcium Level 9.3, White Blood Count 6.9, Red Blood Count 4.32, Hemoglobin 13.6, Hematocrit 41.0, Mean Corpuscular Volume 95, Mean Corpuscular Hemoglobin 31.4H, Mean Corpuscular Hemoglobin Concent 33.1, Red Cell Distribution Width 13.2, Platelet Count 247, Mean Platelet Volume 7.0, Neutrophils (%) (Auto) 63.1, Lymphocytes (%) (Auto) 29.7, Monocytes (%) (Auto) 5.4, Eosinophils (%) (Auto) 1.3, Basophils (%) (Auto ) 0.5, Uric Acid 2.7, Phosphorus Level 3.5, Magnesium Level 2.1, Total Bilirubin 0.5, Gamma Glutamyl Transpeptidase 23, Aspartate Amino Transf (AST/ SGOT) 19, Alanine Aminotransferase (ALT/SGPT) 20, Alkaline Phosphatase 86, Total Creatine Kinase 25L, Troponin I 0.017, Pro-B-Type Natriuretic Peptide 183H , Total Protein 6.5, Albumin 2.3L, Globulin 4.2, Albumin/Globulin Ratio 0.5L, Thyroid Stimulating Hormone (TSH) 0.710 Height (Feet): 5 Height (Inches): 4.00 Weight (Pounds): 115 General Appearance: no apparent distress Cardiovascular: normal rate Respiratory/Chest: decreased breath sounds Abdomen: soft TENA GILBERT Feb 26, 2017 12:38
[2017-02-26 16:00] VITALS: BP 161/85
--- NOTE | 2017-02-26 19:05 | Internal Med Progress Note ---
Subjective Physician Name KeeganSergio warren Attending Physician Yamileth Yates Current Medications Medications (Trade) Dose Ordered Sig/Wayne Route PRN Reason Start Time Stop Time Status Last Admin Dose Admin Amlodipine Besylate (Norvasc) 5 mg BID NG 02/25/17 18:00 03/27/17 17:59 02/26/17 17:54 Aspirin (ASA) 162 mg DAILY NG 02/25/17 09:00 03/27/17 08:59 02/26/17 10:48 Dextrose 1,000 ml @ 50 mls/hr Q20H IV 02/26/17 13:00 03/28/17 12:59 02/26/17 13:03 Dextrose (Dextrose 50%) STAT PRN IV Hypoglycemia 02/25/17 06:30 03/27/17 06:29 Docusate Sodium (Colace) 100 mg EVERY 12 HOURS GT 02/25/17 09:00 03/27/17 08:59 02/26/17 10:48 Heparin Sodium (Porcine) (Heparin 5000 units/ml) 5,000 units EVERY 12 HOURS SUBQ 02/25/17 09:00 03/27/17 08:59 02/26/17 10:53 Insulin Aspart (NovoLOG) Q6HR SUBQ 02/26/17 00:00 03/28/17 00:00 02/26/17 17:55 Insulin Detemir (Levemir) 10 units BEDTIME SUBQ 02/25/17 21:00 03/27/17 20:59 02/25/17 20:37 Metoprolol Tartrate (Lopressor) 12.5 mg Q12HR NG 02/25/17 09:00 03/27/17 08:59 02/26/17 10:49 Nitroglycerin (Ntg) 1 patch Q24H TDERMAL 02/25/17 09:00 03/27/17 08:59 02/26/17 10:49 Vitamin D (Vitamin D) 5,000 intlu DAILY GT 02/25/17 09:00 03/27/17 08:59 02/26/17 10:48 Allergies: Coded Allergies: No Known Allergies (Unverified , 02/04/17) Objective Last Vital Signs Date Time Temp Pulse Resp B/P (MAP) Pulse Ox O2 Delivery O2 Flow Rate FiO2 02/26/17 17:54 63 161/85 02/26/17 16:00 97.0 20 98 02/26/17 12:00 Room Air Laboratory Tests Test 02/25/17 22:20 02/26/17 06:50 Urine Random Sodium 143 MEQ/L (20-110) H White Blood Count 6.9 K/UL (4.8-10.8) Red Blood Count 4.32 M/UL (4.20-5.40) Hemoglobin 13.6 G/DL (12.0-16.0) Hematocrit 41.0 % (37.0-47.0) Mean Corpuscular Volume 95 FL (80-99) Mean Corpuscular Hemoglobin 31.4 PG (27.0-31.0) H Mean Corpuscular Hemoglobin Concent 33.1 G/DL (32.0-36.0) Red Cell Distribution Width 13.2 % (11.6-14.8) Platelet Count 247 K/UL (150-450) Mean Platelet Volume 7.0 FL (6.5-10.1) Neutrophils (%) (Auto) 63.1 % (45.0-75.0) Lymphocytes (%) (Auto) 29.7 % (20.0-45.0) Monocytes (%) (Auto) 5.4 % (1.0-10.0) Eosinophils (%) (Auto) 1.3 % (0.0-3.0) Basophils (%) (Auto) 0.5 % (0.0-2.0) Sodium Level 151 MMOL/L (136-145) H Potassium Level 3.5 MMOL/L (3.5-5.1) Chloride Level 116 MMOL/L (98-107) H Carbon Dioxide Level 30 MMOL/L (21-32) Anion Gap 5 mmol/L (5-15) Blood Urea Nitrogen 18 mg/dL (7-18) Creatinine 0.4 MG/DL (0.55-1.30) L Estimat Glomerular Filtration Rate mL/min (>60) Glucose Level 184 MG/DL (74-106) H Uric Acid 2.7 MG/DL (2.6-7.2) Calcium Level 9.3 MG/DL (8.5-10.1) Phosphorus Level 3.5 MG/DL (2.5-4.9) Magnesium Level 2.1 MG/DL (1.8-2.4) Total Bilirubin 0.5 MG/DL (0.2-1.0) Gamma Glutamyl Transpeptidase 23 U/L (5-85) Aspartate Amino Transf (AST/SGOT) 19 U/L (15-37) Alanine Aminotransferase (ALT/SGPT) 20 U/L (12-78) Alkaline Phosphatase 86 U/L (46-116) Total Creatine Kinase 25 U/L (26-308) L Troponin I 0.017 ng/mL (0.000-0.056) Pro-B-Type Natriuretic Peptide 183 pg/mL (0-125) H Total Protein 6.5 G/DL (6.4-8.2) Albumin 2.3 G/DL (3.4-5.0) L Globulin 4.2 g/dL Albumin/Globulin Ratio 0.5 (1.0-2.7) L Thyroid Stimulating Hormone (TSH) 0.710 uiU/mL (0.358-3.740) Microbiology Date/Time Source Procedure Growth Status 02/24/17 23:45 Urine,Clean Catch Urine Culture - Preliminary NO GROWTH AFTER 24 HOURS Resulted Intake and Output 02/25/17 02/26/17 19:00 07:00 Intake Total 330 ml 430 ml Output Total 1900 ml 600 ml Balance -1570 ml -170 ml Intake Oral 0 ml Free Water 30 ml 30 ml Tube Feeding 300 ml 400 ml Output Urine Total 1900 ml 600 ml # Bowel Movements 2 Assessment/Plan Assessment/Plan # Dehydration, severe #hypernatremia #history of CVA- Large MCA #Advanced dementia #g-tube dependence #HTN- controlled #DM - nephrology consulted - increased free water flushes - monitor sodium level closely - continue Lopressor and norvasc - resume tube feed with inceased free water flushes - continue aspirin 81mg daily - resume [employer] meds - ISS - accuchecks q4hr - DVT ppx - DC back to SNF 2-3 pending correction of metobolic derSergio Wei M.D. Feb 26, 2017 19:05
[2017-02-26 20:00] VITALS: BP 148/93
[2017-02-26] MEDS: Levemir Flexpen SUBQ SCH (20:35)
[2017-02-27] VITALS: BP 131/75
[2017-02-27] MEDS: NovoLOG Insulin Flexpen SUBQ SCH ×5 (00:04→23:20)
[2017-02-27 04:00] VITALS: BP 138/79
[2017-02-27 08:00] VITALS: BP 120/70
[2017-02-27] MEDS: Docusate 100mg/10ml Liq GT SCH ×2 (09:47→22:03)
[2017-02-27] MEDS: Aspirin Baby 81mg NG SCH (09:48)
[2017-02-27] MEDS: Vitamin D 1000 IU Tab GT SCH (09:48)
[2017-02-27] MEDS: Heparin 5000 units/ml inj SUBQ SCH ×2 (09:49→22:09)
[2017-02-27] MEDS: Metoprolol Tartrate 12.5mg TAB NG SCH ×2 (10:11→21:00)
[2017-02-27] MEDS: Nitroglycerin Patch 0.2mg/hr TDERMAL SCH (10:12)
--- NOTE | 2017-02-27 10:39 | Nephrology Progress Note ---
Assessment/Plan Problem List: (1) Dehydration, severe (2) Hypernatremia Assessment - Dehydration, free water deficit leading to - Hypernatremia - Encephalopathy leading to Altered level of consciousness , likely related to CVA (cerebrovascular accident, Large ischemic R MCA stroke - DM, - - h/o Elevated troponin - h/o Meningioma - h/o PNA (pneumonia) - Sepsis Plan plan: IV to D5w, DC upon discharge H2o via NGT / GT Levemir SS insulin adjust BP meds: Lopressor and norvasc Gastric coverage urine studies nitrate Subjective ROS Limited/Unobtainable: No Constitutional: Reports: malaise, weakness Objective Objective Last 24 Hour Vital Signs Date Time Temp Pulse Resp B/P (MAP) Pulse Ox O2 Delivery O2 Flow Rate FiO2 02/27/17 10:12 120/70 02/27/17 10:11 68 120/70 02/27/17 10:11 68 120/70 02/27/17 08:00 97.2 68 20 120/70 98 02/27/17 04:00 97.3 78 20 138/79 97 02/27/17 00:00 97.3 77 19 131/75 99 02/26/17 20:33 91 148/93 02/26/17 20:00 97.6 91 20 148/93 98 02/26/17 17:54 63 161/85 02/26/17 16:00 97.0 63 20 161/85 98 02/26/17 12:00 Room Air 02/26/17 11:45 97.6 64 21 159/78 97 02/26/17 10:49 66 155/81 02/26/17 10:49 155/81 02/26/17 10:49 66 155/81 Intake and Output 02/26/17 02/27/17 19:00 07:00 Intake Total 860 ml 990 ml Output Total 850 ml 1000 ml Balance 10 ml -10 ml Intake Oral 0 ml Free Water 260 ml 90 ml IV Total 250 ml 600 ml Tube Feeding 350 ml 300 ml Output Urine Total 850 ml 1000 ml Height (Feet): 5 Height (Inches): 4.00 Weight (Pounds): 115 General Appearance: no apparent distress Cardiovascular: normal rate Respiratory/Chest: decreased breath sounds Abdomen: soft Objective no change TENA GILBERT Feb 27, 2017 10:39
[2017-02-27 12:00] VITALS: BP 118/69
--- NOTE | 2017-02-27 15:25 | Discharge Instructions ---
Discharge Instructions Discharge Instructions Follow up with: PCP Special Instructions 150mL free water every 6 hours via G-tube. Monitor BMP. For Congestive Heart Failure Reminder Report to your physician any weight gain of 5 pounds or more in one week. Jose Alejandro Connell M.D. Feb 27, 2017 15:24
--- NOTE | 2017-02-27 15:30 | Discharge Instructions ---
Discharge Instructions Discharge Instructions Special Instructions Glucerna 1.2 @55ml x24 hrs start @20ml for 6 hrs, advance as tolerated 10ml every 4-6 hrs to goal of 55ml x24 hrs For Congestive Heart Failure Reminder Report to your physician any weight gain of 5 pounds or more in one week. Jose Alejandro Connell M.D. Feb 27, 2017 15:30
[2017-02-27 16:15] VITALS: BP 104/71
--- NOTE | 2017-02-27 16:32 | Wound Care Consultation ---
Wound Assessment Wound Assessment #1: Wound Number: 1 Wound Present on Admission: Yes New Wound: No Status Change of Wound: No Wound Location Body Site Modif: mid, upper Wound Location Body Site: sacral Wound Type: pressure ulcer Td Test: Does not Td Pressure Ulcer Stage: Unstageable Wound Thickness: Full Thickness Wound Length: 2.0 Wound Width: 2.0 Wound Depth: utd Percent of Wound Bed Yellow/Wh: 100 Wound Drainage Description: Serosanguineous Wound Drainage Amount: Moderate Wound Drainage Odor: None/Absent Tissue Surrounding Wound: nandini rash Wound General Appearance: Reddened - yellow, Draining Wound Assessment #2: Wound Number: 2 Wound Present on Admission: Yes New Wound: No Status Change of Wound: No Wound Location Body Site: perineal area - extending to left and right buttocks Wound Type: rash Td Test: Does not Td Rashes: Nandini/Yeast Percent of Wound Prien/Red: 100 Wound Drainage Amount: None Wound Drainage Odor: None/Absent Tissue Surrounding Wound: Erythemic Wound General Appearance: Reddened Wound Assessment #3: Wound Number: 3 Wound Present on Admission: No New Wound: Yes Status Change of Wound: No Wound Location Body Site Modif: right, lateral Wound Location Body Site: malleolus/ankle Wound Type: pressure ulcer Td Test: Does not Td Pressure Ulcer Stage: I Wound Length: 2.5 Wound Width: 2.0 Percent of Wound Prien/Red: 100 Wound Drainage Amount: None Wound Drainage Odor: None/Absent Tissue Surrounding Wound: Intact Wound General Appearance: Reddened Wound Comment #1 Upper sacral area unstageable pressure ulcer #2 Perineal area nandini rashes extending to left and right buttocks #3 Right lateral malleolus stage I pressure ulcer Recommendation -Local wound care per protocol -Keep clean and dry -Offload both heels -Heel protector on both heels -Optimize nutrition -Low air loss P200 mattress -Turn and reposition -Assess and f/u accordingly for any changes ARMANDO GOFF RN Feb 27, 2017 16:32
[2017-02-27 20:00] VITALS: BP 110/57
[2017-02-27] MEDS: Levemir Flexpen SUBQ SCH (22:06)
[2017-02-28] VITALS: BP 122/75
[2017-02-28 04:00] VITALS: BP 123/50
[2017-02-28] MEDS: NovoLOG Insulin Flexpen SUBQ SCH ×4 (05:31→23:35)
--- NOTE | 2017-02-28 07:23 | Discharge Summary ---
Discharge Summary Hospital Course Date of Admission Feb 24, 2017 at 23:42 Date of Discharge Discharged order in since 02/27/17. Brother filed for Medicare appeal. Actual patient discharge was 03/02/17 Admitting Diagnosis HYPERNATREMIA Reason for Hospitalization: Hypernatremia, acute on chroncic encephalopathy HPI 76 yo female with advance dementia - GT-tube dependent, nonverbal noncommunicative was sent from SNF with abnormal soidum level. No report of fevers, chills, diarrhea. Unble to obtain further history given baseline dementia Consultations Nephrology Hospital Course Pt was admitted and started on D5W for hypernatremia as well as free water flushes. Pt's tube feed formula was also changed. Pt had improvement in Na level as well as mental status. Pt was set for discharged back to SNF on but brother filed for Medicare appeal. After extensive discussion with brother, he finally agreed to discharge and pt was discharged on 03/02/17. Discharge physical exam General: alert, cooperative, no distress, appears stated age, confused Head: normocephalic, without obvious abnormality, atraumatic Eyes: conjunctivae/corneas clear. PERRL, EOM's intact Throat: lips, mucosa, and tongue normal. MMM Neck: supple, symmetrical, trachea midline, and no JVD Lungs: clear to auscultation bilaterally Heart: regular rate and rhythm, S1, S2 normal, no murmur, click, rub or gallop Abdomen: soft, non-tender, non-distended, bowel sounds normal; +PEG/c/di Extremities: extremities normal, atraumatic, no cyanosis or edema Pulses: 2+ and symmetric Skin: skin color, texture, turgor normal; +fungal rash on b/l groin/pelvic area Discharge diagnoses: (1) Hypernatremia ICD Codes: E87.0 - Hyperosmolality and hypernatremia SNOMED: 87362694 (2) Toxic metabolic encephalopathy ICD Codes: G92 - Toxic encephalopathy SNOMED: 000503384 (3) Dehydration, severe ICD Codes: E86.0 - Dehydration SNOMED: 244564390 (4) H/o recent large ischemic R MCA stroke (5) Hypercalcemia ICD Codes: E83.52 - Hypercalcemia SNOMED: 74710386 (6) Hypokalemia ICD Codes: E87.6 - Hypokalemia SNOMED: 61279843 (7) Upper sacral area unstageable pressure ulcer (8) Perineal area gertrudis rashes extending to left and right buttocks (9) Right lateral malleolus stage I pressure ulcer (10) s/p PEG Discharge Medications New Medications: Clotrimazole* (Lotrimin*) 15 Gm Cream..g. 1 APPLIC TOPIC EVERY 12 HOURS for 30 Days, GM Fluconazole* (Diflucan*) 100 Mg Tablet 200 MG GT DAILY for 7 Days, TAB Nystatin (Nystop) 15 Gm Powder 1 APPLIC TOPIC THREE TIMES A DAY for 30 Days, GM Continued Medications: Amlodipine Besylate (Norvasc) 5 Mg Tablet 5 MG NG BID for 90 Days, TAB Aspirin* (Aspirin*) 81 Mg Tab.chew 162 MG NG DAILY for 90 Days, TAB Cholecalciferol (Vitamin D3)* (Vitamin D*) 1,000 Unit Tablet 5000 INTLU GT DAILY for 90 Days, TAB Docusate Sodium (Docusate Sodium) 50 Mg/5 Ml Liquid 100 MG GT EVERY 12 HOURS for 90 Days, ML Heparin Sod (Porcine) (Heparin Sodium*) 5 000/1 Ml Vial 5000 UNITS SUBQ EVERY 12 HOURS for 30 Days, VIAL Insulin Aspart (Novolog Flexpen) 100 Unit/1 Ml Insuln.pen 0 UNITS SUBQ EVERY 6 HOURS for 90 Days, EA Insulin Detemir (Levemir Flexpen) 100 Unit/1 Ml Insuln.pen 10 UNITS SUBQ BEDTIME for 90 Days, EA Metoprolol Tartrate (Metoprolol Tartrate) 25 Mg Tablet 12.5 MG NG Q12HR for 90 Days, TAB Nitroglycerin (Nitroglycerin Patch) 1 Each Patch.td24 1 PATCH TDERMAL Q24H for 90 Days, PATCH Discontinued Medications: Amoxicillin/Potassium Clav 875-125* (Augmentin 875-125 Tablet*) 1 Each Tablet 1 TAB ORAL TWICE A DAY for 5 Days, #10 TAB Discharge Condition Upon Discharge: stable Discharge Disposition Patient was discharged to SNF Discharge Diagnoses: Discharge Instructions Discharge Instructions Follow up with: PCP Jose Alejandro Connell M.D. Feb 28, 2017 07:23
[2017-02-28 08:00] VITALS: BP 124/64
[2017-02-28 09:37] LABS: ANION GAP 7 mmol/L (5-15); BLOOD UREA NITROGEN 18 mg/dL (7-18); CALCIUM 8.7 MG/DL (8.5-10.1); CARBON DIOXIDE 30 MMOL/L (21-32); CHLORIDE 104 MMOL/L (98-107); CREATININE 0.3 MG/DL (0.55-1.30); POTASSIUM 4.9 MMOL/L (3.5-5.1); SODIUM 140 MMOL/L (136-145)
[2017-02-28] MEDS: Vitamin D 1000 IU Tab GT SCH (10:26)
[2017-02-28] MEDS: Metoprolol Tartrate 12.5mg TAB NG SCH ×2 (10:32→20:11)
[2017-02-28] MEDS: Nitroglycerin Patch 0.2mg/hr TDERMAL SCH (10:32)
[2017-02-28] MEDS: Aspirin Baby 81mg NG SCH (10:33)
[2017-02-28] MEDS: Docusate 100mg/10ml Liq GT SCH ×2 (10:33→20:10)
[2017-02-28] MEDS: Heparin 5000 units/ml inj SUBQ SCH ×2 (10:36→20:20)
[2017-02-28 12:00] VITALS: BP 124/61
--- NOTE | 2017-02-28 12:26 | General Progress Note ---
Assessment/Plan Problem List: (1) Hypernatremia ICD Codes: E87.0 - Hyperosmolality and hypernatremia SNOMED: 53025683 (2) Toxic metabolic encephalopathy ICD Codes: G92 - Toxic encephalopathy SNOMED: 356574464 (3) Dehydration, severe ICD Codes: E86.0 - Dehydration SNOMED: 219953377 (4) Large ischemic R MCA stroke (5) Hypercalcemia ICD Codes: E83.52 - Hypercalcemia SNOMED: 22517342 (6) Hypokalemia ICD Codes: E87.6 - Hypokalemia SNOMED: 88975297 (7) Upper sacral area unstageable pressure ulcer (8) Perineal area gertrudis rashes extending to left and right buttocks (9) Right lateral malleolus stage I pressure ulcer Status: stable Assessment/Plan - nephrology consulted - d/c D5W - cont free water flushes via GT per renal - monitor sodium level closely - continue MTP and amlodpine - cont 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 Medicare appeal in process. CM has referred to [facility] rehab per brother's request but they are unable to take. Subjective Date patient seen: Feb 28, 2017 Time patient seen: 12:22 ROS Limited/Unobtainable: Yes Allergies: Coded Allergies: No Known Allergies (Unverified , 02/04/17) Subjective No acute o/n events Na 140 Pt more awake, alert. Stated that she is doing fine ROS limited 2/2 dementia Objective Last 24 Hour Vital Signs Date Time Temp Pulse Resp B/P (MAP) Pulse Ox O2 Delivery O2 Flow Rate FiO2 02/28/17 10:32 124/64 02/28/17 10:32 69 124/64 02/28/17 10:31 69 124/64 02/28/17 08:00 97.3 69 17 124/64 95 02/28/17 04:00 97.9 64 20 123/50 100 02/28/17 00:00 97.0 69 20 122/75 100 02/27/17 21:00 61 110/57 02/27/17 20:00 97.1 61 20 110/57 98 18 18:00 90 104/71 02/27/17 16:15 97.1 90 19 104/71 97 Room Air Intake and Output 02/27/17 02/28/17 19:00 07:00 Intake Total 650 ml 700 ml Output Total 300 ml 700 ml Balance 350 ml 0 ml Free Water 200 ml IV Total 600 ml 400 ml Tube Feeding 50 ml 100 ml Output Urine Total 300 ml 700 ml Laboratory Tests 02/28/17 08:40: Sodium Level 140, Potassium Level 4.9, Chloride Level 104, Carbon Dioxide Level 30, Anion Gap 7, Blood Urea Nitrogen 18, Creatinine 0.3L, Estimat Glomerular Filtration Rate , Glucose Level 177H, Calcium Level 8.7 Height (Feet): 5 Height (Inches): 4.00 Weight (Pounds): 115 Objective General: alert, cooperative, no distress, appears stated age Head: normocephalic, without obvious abnormality, atraumatic Eyes: conjunctivae/corneas clear. PERRL, EOM's intact Throat: lips, mucosa, and tongue normal. MMM Neck: supple, symmetrical, trachea midline, and no JVD Lungs: clear to auscultation bilaterally Heart: regular rate and rhythm, S1, S2 normal, no murmur, click, rub or gallop Abdomen: soft, non-tender, non-distended, bowel sounds normal; +G tube c/d/i Extremities: extremities normal, atraumatic, no cyanosis or edema Pulses: 2+ and symmetric Skin: skin color, texture, turgor normal; no rashes or lesions Neurologic: grossly normal, no focal deficits Jose Alejandro Connell M.D. Feb 28, 2017 12:26
--- NOTE | 2017-02-28 14:42 | Nephrology Progress Note ---
Assessment/Plan Problem List: (1) Dehydration, severe (2) Hypernatremia Assessment - Dehydration, free water deficit leading to - Hypernatremia - Encephalopathy leading to Altered level of consciousness , likely related to CVA (cerebrovascular accident, Large ischemic R MCA stroke - DM, - - h/o Elevated troponin - h/o Meningioma - h/o PNA (pneumonia) - Sepsis Plan plan: DC IV fluid- H2o via NGT / GT Levemir SS insulin adjust BP meds: Lopressor and norvasc Gastric coverage urine studies nitrate discharge Subjective ROS Limited/Unobtainable: No Constitutional: Reports: malaise Objective Objective Last 24 Hour Vital Signs Date Time Temp Pulse Resp B/P (MAP) Pulse Ox O2 Delivery O2 Flow Rate FiO2 02/28/17 12:00 98.6 70 18 124/61 96 02/28/17 10:32 124/64 02/28/17 10:32 69 124/64 02/28/17 10:31 69 124/64 02/28/17 08:00 97.3 69 17 124/64 95 02/28/17 04:00 97.9 64 20 123/50 100 02/28/17 00:00 97.0 69 20 122/75 100 02/27/17 21:00 61 110/57 02/27/17 20:00 97.1 61 20 110/57 98 02/27/17 18:00 90 104/71 02/27/17 16:15 97.1 90 19 104/71 97 Room Air Intake and Output 02/27/17 02/28/17 19:00 07:00 Intake Total 650 ml 700 ml Output Total 300 ml 700 ml Balance 350 ml 0 ml Free Water 200 ml IV Total 600 ml 400 ml Tube Feeding 50 ml 100 ml Output Urine Total 300 ml 700 ml Laboratory Tests 02/28/17 08:40: Sodium Level 140, Potassium Level 4.9, Chloride Level 104, Carbon Dioxide Level 30, Anion Gap 7, Blood Urea Nitrogen 18, Creatinine 0.3L, Estimat Glomerular Filtration Rate , Glucose Level 177H, Calcium Level 8.7 Height (Feet): 5 Height (Inches): 4.00 Weight (Pounds): 115 General Appearance: no apparent distress Respiratory/Chest: lungs clear Abdomen: soft Objective no change TENA GILBERT Feb 28, 2017 14:42
[2017-02-28] MEDS: Nystatin Powder 100,000 units/gm 15gm TOPIC SCH ×2 (15:27→19:04)
[2017-02-28 15:56] VITALS: BP 125/67
[2017-02-28 20:00] VITALS: BP 131/65
[2017-02-28] MEDS: Levemir Flexpen SUBQ SCH (20:26)
[2017-03-01] VITALS: BP 139/65
[2017-03-01 04:00] VITALS: BP 140/69
[2017-03-01] MEDS: NovoLOG Insulin Flexpen SUBQ SCH ×4 (05:18→23:25)
[2017-03-01 08:31] VITALS: BP 140/66
[2017-03-01] MEDS: Docusate 100mg/10ml Liq GT SCH ×2 (09:37→20:05)
[2017-03-01] MEDS: Metoprolol Tartrate 12.5mg TAB NG SCH ×2 (09:37→20:05)
[2017-03-01] MEDS: Aspirin Baby 81mg NG SCH (09:37)
[2017-03-01] MEDS: Vitamin D 1000 IU Tab GT SCH (09:37)
[2017-03-01] MEDS: Nitroglycerin Patch 0.2mg/hr TDERMAL SCH (09:38)
[2017-03-01] MEDS: Heparin 5000 units/ml inj SUBQ SCH ×2 (09:39→20:10)
[2017-03-01 09:41] LABS: ANION GAP 8 mmol/L (5-15); BLOOD UREA NITROGEN 14 mg/dL (7-18); CALCIUM 9.2 MG/DL (8.5-10.1); CARBON DIOXIDE 28 MMOL/L (21-32); CHLORIDE 106 MMOL/L (98-107); CREATININE 0.3 MG/DL (0.55-1.30); POTASSIUM 3.9 MMOL/L (3.5-5.1); SODIUM 142 MMOL/L (136-145)
[2017-03-01] MEDS: Nystatin Powder 100,000 units/gm 15gm TOPIC SCH ×3 (09:45→17:59)
[2017-03-01 11:29] VITALS: BP 136/65
[2017-03-01] MEDS: Fluconazole 100mg tab GT SCH (13:52)
--- NOTE | 2017-03-01 14:53 | Nephrology Progress Note ---
Assessment/Plan Problem List: (1) Dehydration, severe (2) Hypernatremia Assessment - Dehydration, free water deficit leading to - Hypernatremia - Encephalopathy leading to Altered level of consciousness , likely related to CVA (cerebrovascular accident, Large ischemic R MCA stroke - DM, - - h/o Elevated troponin - h/o Meningioma - h/o PNA (pneumonia) - Sepsis Plan plan: DC IV fluid- H2o via NGT / GT Levemir SS insulin adjust BP meds: Lopressor and norvasc Gastric coverage urine studies nitrate discharge Subjective ROS Limited/Unobtainable: No Constitutional: Reports: malaise Objective Objective Last 24 Hour Vital Signs Date Time Temp Pulse Resp B/P (MAP) Pulse Ox O2 Delivery O2 Flow Rate FiO2 03/01/17 11:29 97.9 60 20 136/65 98 03/01/17 09:42 72 140/66 03/01/17 09:38 140/66 03/01/17 09:37 72 140/66 03/01/17 08:31 98.0 72 20 140/66 99 03/01/17 04:00 97.6 61 19 140/69 99 03/01/17 04:00 99 Room Air 03/01/17 00:00 98 Room Air 03/01/17 00:00 97.9 61 20 139/65 98 02/28/17 20:11 66 131/65 02/28/17 20:00 97 Room Air 02/28/17 20:00 97.5 77 20 131/65 97 02/28/17 19:04 66 125/67 02/28/17 15:56 98.2 66 19 125/67 99 Room Air Intake and Output 02/28/17 03/01/17 19:00 07:00 Intake Total 1150 ml 400 ml Output Total 2050 ml Balance -900 ml 400 ml Free Water 300 ml 130 ml IV Total 250 ml Tube Feeding 600 ml 270 ml Output Urine Total 2050 ml # Bowel Movements 1 Laboratory Tests 03/01/17 07:30: Sodium Level 142, Potassium Level 3.9, Chloride Level 106, Carbon Dioxide Level 28, Anion Gap 8, Blood Urea Nitrogen 14, Creatinine 0.3L, Estimat Glomerular Filtration Rate , Glucose Level 110H, Calcium Level 9.2 Height (Feet): 5 Height (Inches): 4.00 Weight (Pounds): 115 General Appearance: no apparent distress Objective no change TENA GILBERT Mar 01, 2017 14:53
[2017-03-01 16:00] VITALS: BP 137/71
[2017-03-01 20:08] VITALS: BP 143/74
[2017-03-01] MEDS: Levemir Flexpen SUBQ SCH (20:12)
[2017-03-02] VITALS: BP 131/68
[2017-03-02 04:00] VITALS: BP 131/79
[2017-03-02] MEDS: NovoLOG Insulin Flexpen SUBQ SCH ×2 (06:17→12:12)
[2017-03-02 08:00] VITALS: BP 117/57
[2017-03-02] MEDS: Nitroglycerin Patch 0.2mg/hr TDERMAL SCH (08:40)
[2017-03-02] MEDS: Fluconazole 100mg tab GT SCH (08:41)
[2017-03-02] MEDS: Docusate 100mg/10ml Liq GT SCH (08:41)
[2017-03-02] MEDS: Aspirin Baby 81mg NG SCH (08:41)
[2017-03-02] MEDS: Vitamin D 1000 IU Tab GT SCH (08:41)
[2017-03-02] MEDS: Metoprolol Tartrate 12.5mg TAB NG SCH (08:41)
[2017-03-02] MEDS: Heparin 5000 units/ml inj SUBQ SCH (08:43)
[2017-03-02] MEDS: Nystatin Powder 100,000 units/gm 15gm TOPIC SCH ×2 (08:45→12:11)
[2017-03-02 12:00] VITALS: BP 140/65
--- NOTE | 2017-03-02 12:02 | General Progress Note ---
Assessment/Plan Problem List: (1) Hypernatremia ICD Codes: E87.0 - Hyperosmolality and hypernatremia SNOMED: 44062059 (2) Toxic metabolic encephalopathy ICD Codes: G92 - Toxic encephalopathy SNOMED: 478900349 (3) Dehydration, severe ICD Codes: E86.0 - Dehydration SNOMED: 165379410 (4) Large ischemic R MCA stroke (5) Hypercalcemia ICD Codes: E83.52 - Hypercalcemia SNOMED: 68063632 (6) Hypokalemia ICD Codes: E87.6 - Hypokalemia SNOMED: 72737642 (7) Upper sacral area unstageable pressure ulcer (8) Perineal area gertrudis rashes extending to left and right buttocks (9) Right lateral malleolus stage I pressure ulcer Status: stable Assessment/Plan - nephrology consulted - s/p D5W - cont free water flushes via GT per renal - monitor sodium level closely - continue MTP and amlodpine - cont other ELECTRICAL AND INSTRUMENTATION MANAGER 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 Medicare appeal in process. CM has referred to [facility] per brother's request but they have no bed. D/w brother who agrees to transfer back to [facility] tomorrow Subjective Date patient seen: Mar 01, 2017 Time patient seen: 12:00 ROS Limited/Unobtainable: Yes Allergies: Coded Allergies: No Known Allergies (Unverified , 02/04/17) Subjective No acute o/n events Na 142 Pt more awake, alert. Stated that she is doing fine ROS limited 2/2 dementia Objective Last 24 Hour Vital Signs Date Time Temp Pulse Resp B/P (MAP) Pulse Ox O2 Delivery O2 Flow Rate FiO2 03/02/17 08:41 70 117/57 03/02/17 08:41 70 117/57 03/02/17 08:40 117/57 03/02/17 08:00 97.2 70 20 117/57 98 03/02/17 04:00 97.7 81 20 131/79 97 03/02/17 00:00 97.3 70 20 131/68 97 03/01/17 20:08 96.8 69 17 143/74 100 03/01/17 20:05 69 143/74 03/01/17 17:55 60 137/71 03/01/17 16:00 98.1 60 20 137/71 98 Intake and Output 03/01/17 03/02/17 19:00 07:00 Intake Total 1100 ml 695 ml Output Total 400 ml Balance 700 ml 695 ml Intake Oral 0 ml Free Water 600 ml 200 ml Tube Feeding 500 ml 495 ml Output Urine Total 400 ml Height (Feet): 5 Height (Inches): 4.00 Weight (Pounds): 115 Objective General: alert, cooperative, no distress, appears stated age Head: normocephalic, without obvious abnormality, atraumatic Eyes: conjunctivae/corneas clear. PERRL, EOM's intact Throat: lips, mucosa, and tongue normal. MMM Neck: supple, symmetrical, trachea midline, and no JVD Lungs: clear to auscultation bilaterally Heart: regular rate and rhythm, S1, S2 normal, no murmur, click, rub or gallop Abdomen: soft, non-tender, non-distended, bowel sounds normal; +G tube c/d/i Extremities: extremities normal, atraumatic, no cyanosis or edema Pulses: 2+ and symmetric Skin: skin color, texture, turgor normal; no rashes or lesions Neurologic: grossly normal, no focal deficits Jose Alejandro Connell M.D. Mar 02, 2017 12:02
[2017-03-02] MEDS ORDERED: DIFLUCAN100 MG GT (12:03)
[2017-03-02] MEDS ORDERED: CLOTRIMAZOLE15 GM TOPIC (12:04)
[2017-03-02] MEDS ORDERED: NYSTOP POWDER15 GM TOPIC (12:04)
--- NOTE | 2017-03-02 17:26 | Nephrology Progress Note ---
Assessment/Plan Problem List: (1) Dehydration, severe (2) Hypernatremia Assessment - Dehydration, free water deficit leading to - Hypernatremia - Encephalopathy leading to Altered level of consciousness , likely related to CVA (cerebrovascular accident, Large ischemic R MCA stroke - DM, - - h/o Elevated troponin - h/o Meningioma - h/o PNA (pneumonia) - Sepsis Plan plan: DC IV fluid- H2o via NGT / GT Levemir SS insulin adjust BP meds: Lopressor and norvasc Gastric coverage urine studies nitrate discharge Subjective ROS Limited/Unobtainable: No Interval Events/Complaints seen at 2 pm Objective Objective Last 24 Hour Vital Signs Date Time Temp Pulse Resp B/P (MAP) Pulse Ox O2 Delivery O2 Flow Rate FiO2 03/02/17 12:00 97.7 63 20 140/65 98 03/02/17 08:41 70 117/57 03/02/17 08:41 70 117/57 03/02/17 08:40 117/57 03/02/17 08:00 97.2 70 20 117/57 98 03/02/17 04:00 97.7 81 20 131/79 97 03/02/17 00:00 97.3 70 20 131/68 97 03/01/17 20:08 96.8 69 17 143/74 100 03/01/17 20:05 69 143/74 03/01/17 17:55 60 137/71 Intake and Output 03/01/17 03/02/17 19:00 07:00 Intake Total 1100 ml 695 ml Output Total 400 ml Balance 700 ml 695 ml Intake Oral 0 ml Free Water 600 ml 200 ml Tube Feeding 500 ml 495 ml Output Urine Total 400 ml Height (Feet): 5 Height (Inches): 4.00 Weight (Pounds): 115 General Appearance: no apparent distress Objective no change TENA GILBERT Mar 02, 2017 17:26
== END 2017-03-02 15:45 | DRG 640 ==
LOC: EDBD 22:58 → EMR 23:40 → 3E 23:42 → EDBEDREQ 02-25 00:44 → 3E 02-25 02:10 → 4E 02-25 07:00
DX: E87.0 Hyperosmolality and hypernatremia (principal); G92 Toxic encephalopathy; E86.0 Dehydration; B37.89 Other sites of candidiasis; L89.150 Pressure ulcer of sacral region, unstageable; E11.8 Type 2 diabetes mellitus with unspecified complications; F03.90 Unspecified dementia, unspecified severity, without behavioral disturbance, psychotic disturbance, mood disturbance, and anxiety; L89.511 Pressure ulcer of right ankle, stage 1; I10 Essential (primary) hypertension; Z86.73 Personal history of transient ischemic attack (TIA), and cerebral infarction without residual deficits
CPT/HCPCS: 36415; 80048; 80053; 81001; 82550; 82962; 82977; 83735; 83880; 84100; 84300; 84443; 84484; 84550; 85025; 86140; 87081; 87086; 99285; J1815; J8499; S5561

== ENCOUNTER 2017-08-11 18:30 | Inpatient (IN) | payer MEDICARE, MEDICAID ==
[~2017-08-11] VITALS: Ht 162.6 cm; Wt 59.9 kg
[~2017-08-11 18:30] MED LIST changes: +CLOTRIMAZOLE15 GM TOPIC; +DIFLUCAN100 MG GT; +NYSTOP POWDER15 GM TOPIC
[2017-08-11] MEDS ORDERED: MULTI-DELYN237 ML GT (18:38)
[2017-08-11] MEDS ORDERED: MILK OF MA400 MG/51 ORAL (18:38)
[2017-08-11] MEDS ORDERED: CYCLOBENZAPRINE10 MG ORAL (18:38)
[2017-08-11] MEDS ORDERED: ACETAMINOP160 MG/54 ORAL (18:38)
[2017-08-11] MEDS ORDERED: Isovue-300 100ml vial INJ PRN (18:45)
--- NOTE | 2017-08-11 18:57 | Emergency Room Report ---
History of Present Illness General Chief Complaint: Skin Rash/Abscess Source: Medical Record, EMS Present Illness HPI 76yo F with h/o dementia sent from [place] for L neck mass. Patient unable to give any history due to nonverbal status. Allergies: Coded Allergies: No Known Allergies (Unverified , 02/04/17) Patient History Limited by: age, medical condition Past Medical History: see triage record Reviewed Nursing Documentation: PMH: Agreed; PSxH: Agreed Nursing Documentation-PMH Past Medical History: No History, Except For Hx Hypertension: Yes Hx Diabetes: Yes Hx Cancer: No Hx Neurological Problems: Yes - episodes of confusion Review of Systems All Other Systems: limited - due to nonverbal status/dementia Physical Exam Vital Signs Date Time Temp Pulse Resp B/P (MAP) Pulse Ox O2 Delivery O2 Flow Rate FiO2 08/11/17 18:23 98.6 88 18 152/84 94 Room Air 98.6 Sp02 EP Interpretation: reviewed, normal General Appearance: no apparent distress, alert, non-toxic Head: normocephalic Eyes: bilateral eye normal inspection ENT: no angioedema, dry mucus membranes, other - poor dentition Neck: supple, thyroid normal, supple/symm/no masses, other - L submandibular area with golfball sized mass, no erythema, nonpulsatile, no bruit, no warmth, no obvious tenderness Respiratory: chest non-tender, lungs clear, normal breath sounds, chest symmetrical, palpation of chest normal Cardiovascular #1: normal peripheral pulses, regular rate, rhythm Cardiovascular #2: 2+ radial (R), 2+ radial (L) Gastrointestinal: normal inspection, non tender, soft, no mass, no guarding, no rebound, other - feeding tube site c/d/i Rectal: deferred Genitourinary: normal inspection Musculoskeletal: normal range of motion, non-tender, no calf tenderness Neurologic: responsive Psychiatric: depressed affect Skin: normal color, no rash, warm/dry, normal turgor Lymphatic: no adenopathy Medical Decision Making Diagnostic Impression: Primary Impression: Mass in neck Additional Impression: Hypernatremia ER Course Pt with nontender L neck mass, difficult to visualize oral exam as patient with clenched jaw. No skin changes to suggest external cutaneous abscess. CT scan shows evidence for likely submandibular gland infection vs abscess. Given IV clindamycin, will need ENT consultation. Patient also with hypernatremia, will admit to Dr. Quintana. Rhythm Strip Diag. Results Rhythm Strip Time: 18:55 EP Interpretation: yes Rate: 79 Rhythm: NSR, no ectopy CT/MRI/US Diagnostic Results CT/MRI/US Diagnostic Results : Imaging Test Ordered: ct neck with iv contrast Last Vital Signs Date Time Temp Pulse Resp B/P (MAP) Pulse Ox O2 Delivery O2 Flow Rate FiO2 08/11/17 18:23 98.6 88 18 152/84 94 Room Air 98.6 Disposition: ADMITTED INPATIENT Condition: Stable CARLEE RODARTE M.D Aug 11, 2017 18:57
[2017-08-11 19:00] VITALS: BP 147/78
[2017-08-11 19:11] LABS: BASOPHILS % (AUTO) 0.8 % (0.0-2.0); EOSINOPHILS % (AUTO) 0.1 % (0.0-3.0); HEMATOCRIT 45.9 % (37.0-47.0); HEMOGLOBIN 15.1 G/DL (12.0-16.0); LYMPHOCYTES % (AUTO) 26.1 % (20.0-45.0); MEAN CORPUSCULAR VOLUME 96 FL (80-99); PLATELET COUNT 273 K/UL (150-450); RED BLOOD COUNT 4.78 M/UL (4.20-5.40); WHITE BLOOD COUNT 11.1 K/UL (4.8-10.8)
[2017-08-11 19:26] LABS: ANION GAP 6 mmol/L (5-15); BLOOD UREA NITROGEN 28 mg/dL (7-18); CALCIUM 10.3 MG/DL (8.5-10.1); CARBON DIOXIDE 35 MMOL/L (21-32); CHLORIDE 113 MMOL/L (98-107); CREATININE 0.6 MG/DL (0.55-1.30); POTASSIUM 3.8 MMOL/L (3.5-5.1); SODIUM 153 MMOL/L (136-145)
[2017-08-11] MEDS ORDERED: UTI-STAT L3875 MG/31 GT (19:53)
[2017-08-11] MEDS ORDERED: DOCUSATE SODIU100 MG ORAL (19:53)
[2017-08-11] MEDS ORDERED: IPRAT-ALBUT 0.5-3 ML IH (19:53)
[2017-08-11] MEDS ORDERED: FLEET ENEMA133 ML RECTAL (19:53)
[2017-08-11] MEDS ORDERED: BISACODYL10 M1 RC (19:53)
[2017-08-11] MEDS ORDERED: DOCUSATE SODIU100 MG GT (19:53)
--- NOTE | 2017-08-11 20:44 | Diagnostic Imaging Report ---
EXAM: CT Neck With Intravenous Contrast CLINICAL HISTORY: MASS TECHNIQUE: Axial computed tomography images of the neck with intravenous contrast. CTDI is 51 MGy and DLP is 684 mGy-cm. One or more of the following dose reduction techniques were used: automated exposure control, adjustment of the mA and/or kV according to patient size, use of iterative reconstruction technique. COMPARISON: No relevant prior studies available. FINDINGS: Oropharynx: Unremarkable. No significant tonsillar enlargement. No peritonsillar abscess. Hypopharynx: Unremarkable. Larynx: Unremarkable. Normal epiglottis. Trachea: Unremarkable. Retropharyngeal space: Unremarkable. Submandibular/parotid glands: Unremarkable. Glands are normal in size. Thyroid: Unremarkable. No enlarged or calcified nodules. Bones/joints: No acute fracture. Soft tissues: enlarged left submandibular gland with a peripherally enhancing cystic areas throughout and possibly adjacent to the gland, measuring up to 2.2 cm in diameter. There is superficial and deep soft tissue swelling with edema seen throughout the parapharyngeal fat down to the level of the hyoid bone. Vasculature: No acute findings. Lymph nodes: Unremarkable. No lymphadenopathy. Lung apices: Unremarkable as visualized. IMPRESSION: enlarged left submandibular gland with peripherally enhancing cystic areas throughout and possibly adjacent to the gland, measuring up to 2.2 cm in diameter. There is superficial and deep soft tissue swelling with edema seen throughout the parapharyngeal fat down to the level of the hyoid bone. Infection/abscess versus necrotic mass.
[2017-08-11 20:58] VITALS: BP 158/80
[2017-08-11] MEDS ORDERED: Clindamycin 600mg 50 ML IVPB ONE (21:00)
[2017-08-11] MEDS ORDERED: Heparin 5000 units/ml inj SUBQ SCH (22:34)
[2017-08-11] MEDS ORDERED: Albuterol/Ipratropium 3ml neb HHN PRN (23:00)
[2017-08-12] VITALS: BP 147/91
[2017-08-12] MEDS ORDERED: Vancomycin 1gm in D5W 275ml IVPB SCH ×2
[2017-08-12] MEDS: Docusate 100mg cap ORAL SCH ×3 (00:03→17:25)
[2017-08-12] MEDS: Heparin 5000 units/ml inj SUBQ SCH ×3 (00:03→20:18)
[2017-08-12] MEDS: Metoprolol 25mg tab GT SCH ×3 (00:04→20:21)
[2017-08-12 04:00] VITALS: BP 143/72
[2017-08-12 07:16] LABS: BASOPHILS % (AUTO) 0.6 % (0.0-2.0); EOSINOPHILS % (AUTO) 0.1 % (0.0-3.0); HEMATOCRIT 46.9 % (37.0-47.0); HEMOGLOBIN 15.4 G/DL (12.0-16.0); LYMPHOCYTES % (AUTO) 21.2 % (20.0-45.0); MEAN CORPUSCULAR VOLUME 97 FL (80-99); MONOCYTES % (AUTO) 6.1 % (1.0-10.0); NEUTROPHILS % (AUTO) 71.9 % (45.0-75.0); PLATELET COUNT 262 K/UL (150-450); RED BLOOD COUNT 4.82 M/UL (4.20-5.40); RED CELL DISTRIBUTION WIDTH 14.1 % (11.6-14.8); WHITE BLOOD COUNT 9.7 K/UL (4.8-10.8)
[2017-08-12 07:22] LABS: ANION GAP 6 mmol/L (5-15); BLOOD UREA NITROGEN 27 mg/dL (7-18); CALCIUM 9.8 MG/DL (8.5-10.1); CARBON DIOXIDE 33 MMOL/L (21-32); CHLORIDE 113 MMOL/L (98-107); CREATININE 0.6 MG/DL (0.55-1.30); SODIUM 152 MMOL/L (136-145)
[2017-08-12 08:00] VITALS: BP 134/73
[2017-08-12] MEDS: Cyclobenzaprine 10mg Tab GT SCH ×3 (09:35→17:24)
[2017-08-12] MEDS: Nitroglycerin Patch 0.2mg/hr TDERMAL SCH (09:38)
[2017-08-12] MEDS: Aspirin Baby 81mg GT SCH (09:39)
[2017-08-12] MEDS: Milk of Magnesia 30ml Ud GT SCH (09:39)
[2017-08-12] MEDS: Vitamin D 1000 IU Tab GT SCH (09:39)
[2017-08-12] MEDS: Multivitamins W/Minerals 15 ML UDC GT SCH (11:40)
[2017-08-12 12:00] VITALS: BP 179/112
[2017-08-12] MEDS: NovoLOG Insulin Flexpen SUBQ SCH ×3 (13:42→20:20)
[2017-08-12 16:00] VITALS: BP 97/62
[2017-08-12] MEDS: Vancomycin 750mg/NS 250ml IVPB SCH (16:41)
[2017-08-12 20:00] VITALS: BP 123/75
[2017-08-12] MEDS ORDERED: Levemir Flexpen SUBQ SCH (21:00)
[2017-08-13] VITALS (7 sets, daily range): BP systolic 112–135; BP diastolic 65–78
[2017-08-13] MEDS: Vancomycin 750mg/NS 250ml IVPB SCH ×2 (04:56→17:29)
[2017-08-13] MEDS: NovoLOG Insulin Flexpen SUBQ SCH ×4 (06:28→20:41)
[2017-08-13] MEDS: Aspirin Baby 81mg GT SCH (09:16)
[2017-08-13] MEDS: Milk of Magnesia 30ml Ud GT SCH (09:16)
[2017-08-13] MEDS: Docusate 100mg cap ORAL SCH ×2 (09:16→17:35)
[2017-08-13] MEDS: Vitamin D 1000 IU Tab GT SCH (09:17)
[2017-08-13] MEDS: Metoprolol 25mg tab GT SCH ×2 (09:17→20:37)
[2017-08-13] MEDS: Nitroglycerin Patch 0.2mg/hr TDERMAL SCH (09:17)
[2017-08-13] MEDS: Cyclobenzaprine 10mg Tab GT SCH ×3 (09:18→17:35)
[2017-08-13] MEDS: Multivitamins W/Minerals 15 ML UDC GT SCH (09:18)
[2017-08-13] MEDS: Heparin 5000 units/ml inj SUBQ SCH ×2 (09:25→20:39)
[2017-08-13] MEDS ORDERED: 1/2 NS 1000ml IV ONE (16:36)
[2017-08-13] MEDS: Ampicillin/Sulbactam Sod 1.5 GM in NS 55 ML IVPB SCH (19:26)
[2017-08-13] MEDS: Levemir Flexpen SUBQ SCH (20:39)
[2017-08-14] MEDS: Ampicillin/Sulbactam Sod 1.5 GM in NS 55 ML IVPB SCH ×2 (00:09→04:59)
--- NOTE | 2017-08-14 03:45 | Progress Note ---
DATE: 08/13/2017 SUBJECTIVE: The patient was seen and examined, in no acute distress. No acute events overnight. Still on intravenous antibiotics with Unasyn and vancomycin for abscess located on neck. The patient was also noted to still have a persistently elevated blood sugars highest noted to be 280. We will increase Levemir to 10 mg b.i.d. We will also follow up on repeat laboratory results to determine intravenous fluids. OBJECTIVE: VITAL SIGNS: Temperature 97.3, heart rate 70, respirations 20, and blood pressure 130/69. GENERAL: Awake, , nonverbal elderly female. HEENT: RDODYRLA. NECK: She has a cellulitis mass located on the left side. CARDIOVASCULAR: S1 and S2. Regular rate and rhythm. RESPIRATORY: Clear breath sounds bilaterally. No wheezing, rhonchi, or rales. ABDOMEN: Soft, nontender, and nondistended. EXTREMITIES: Lower extremities, no edema noted. IMPRESSION AND PLAN: 1. Cellulitis of the face. Continue Unasyn and vancomycin. ID consult as well as ENT. Follow recommendations. 2. Uncontrolled diabetes. Continue to monitor blood sugars. Obtain Hb A1c. Continue Levemir 10 mg b.i.d. 3. Hyponatremia. Continue intravenous fluids. Follow up on repeat sodium level. 4. Hypertension. Continue amlodipine and metoprolol. 5. Gastroesophageal reflux disease. Continue PPI. 6. Muscle spasm. Continue cyclobenzaprine. Brittani Sosa MD DR: FRANK JOB#: [id number] CC:
[2017-08-14 04:00] VITALS: BP 129/75
--- NOTE | 2017-08-14 04:15 | History and Physical Report ---
DATE OF ADMISSION: 08/11/2017 CHIEF COMPLAINT: Skin rash and abscess located on the face. HISTORY OF PRESENT ILLNESS: This is a 76-year-old female with past medical history of dementia, who presents from alf for worsening left neck mass as well as pain, swelling, and redness noted. All information was obtained via nursing documentation, ER staff documentation, as well as from alf reporting. The patient was taken to the ED for further evaluation and treatment and had head CT done, which showed enlarged left submandibular gland with peripherally enhancing cystic area adjacent gland measuring up to 2.2 cm in diameter. There was superficial and deep soft tissue swelling with edema seen throughout the parapharyngeal fat down to the level of the hyoid bone, abscess versus necrotic mass. The patient was also noted on laboratory results to have elevated white blood cell count of 11.1. Her blood sugars were also noted to be elevated at 310 as well as sodium of 153. The patient was started on IV fluids, given IV antibiotics with clindamycin, as well as started on vancomycin pharmacy dose. The patient was seen and examined, nonverbal, noncommunicative, in no apparent distress. PAST MEDICAL HISTORY: Diabetes and hypertension. PAST SURGICAL HISTORY: Unable to obtain. REVIEW OF SYSTEMS: Unable to obtain. PHYSICAL EXAMINATION: VITAL SIGNS: Temperature is 97.3 degrees, pulse 70, respirations 20, and blood pressure 130/59. GENERAL: Awake, nonverbal, noncommunicative, alert female. HEENT: PERRLA. ENT, the patient has left submandibular area with golf ball-sized mass. No erythema, no , no obvious tenderness. RESPIRATORY: Clear breath sounds bilaterally. No wheezing, rhonchi, or rales. ABDOMEN: Soft, nontender, and nondistended. CARDIOVASCULAR: S1 and S2. Regular rhythm. EXTREMITIES: Lower extremities, no edema noted. IMPRESSION AND PLAN: 1. Mass in the neck secondary to possible cellulitis or abscess. We will start the patient on vancomycin pharmacy dose as well as Unasyn 1.5 g q.6 h. We will obtain Infectious Disease consultation as well as ENT. 2. Uncontrolled diabetes with blood sugars greater than 300. We will start the patient on Levemir. Continue to monitor blood sugars. Continue insulin sliding scale. 3. Hyponatremia, secondary to possible volume depletion, the patient's IV fluids. 4. Muscle spasm. Continue Flexeril. 5. Hypertension. Continue amlodipine and metoprolol. 6. Nausea. Continue Zofran. Brittani Sosa MD DR: Aries JOB#: [id number] CC:
[2017-08-14] MEDS: Vancomycin 750mg/NS 250ml IVPB SCH ×2 (05:39→16:17)
[2017-08-14] MEDS: NovoLOG Insulin Flexpen SUBQ SCH ×4 (06:10→23:24)
[2017-08-14 06:18] LABS: BASOPHILS % (AUTO) 0.5 % (0.0-2.0); EOSINOPHILS % (AUTO) 0.4 % (0.0-3.0); HEMATOCRIT 44.5 % (37.0-47.0); HEMOGLOBIN 14.4 G/DL (12.0-16.0); LYMPHOCYTES % (AUTO) 18.8 % (20.0-45.0); MEAN CORPUSCULAR VOLUME 97 FL (80-99); MONOCYTES % (AUTO) 4.6 % (1.0-10.0); NEUTROPHILS % (AUTO) 75.7 % (45.0-75.0); PLATELET COUNT 243 K/UL (150-450); RED BLOOD COUNT 4.61 M/UL (4.20-5.40); RED CELL DISTRIBUTION WIDTH 13.9 % (11.6-14.8); WHITE BLOOD COUNT 11.3 K/UL (4.8-10.8)
[2017-08-14 07:03] LABS: ANION GAP 6 mmol/L (5-15); BLOOD UREA NITROGEN 18 mg/dL (7-18); CALCIUM 8.8 MG/DL (8.5-10.1); CARBON DIOXIDE 29 MMOL/L (21-32); CHLORIDE 113 MMOL/L (98-107); CREATININE 0.6 MG/DL (0.55-1.30); POTASSIUM 3.7 MMOL/L (3.5-5.1); SODIUM 148 MMOL/L (136-145)
[2017-08-14 08:00] VITALS: BP 127/69
[2017-08-14] MEDS: Docusate 100mg cap ORAL SCH (09:00)
[2017-08-14] MEDS ORDERED: Tubing IV Secondary IV ONE (09:35)
[2017-08-14] MEDS ORDERED: 1/2 NS 1000ml IV ONE (09:35)
[2017-08-14] MEDS: Metoprolol 25mg tab GT SCH ×2 (09:41→20:50)
[2017-08-14] MEDS: Vitamin D 1000 IU Tab GT SCH (09:41)
[2017-08-14] MEDS: Multivitamins W/Minerals 15 ML UDC GT SCH (09:42)
[2017-08-14] MEDS: Nitroglycerin Patch 0.2mg/hr TDERMAL SCH (09:42)
[2017-08-14] MEDS: Cyclobenzaprine 10mg Tab GT SCH ×3 (09:42→18:01)
[2017-08-14] MEDS: Aspirin Baby 81mg GT SCH (09:42)
[2017-08-14] MEDS: Milk of Magnesia 30ml Ud GT SCH (09:42)
[2017-08-14] MEDS: Heparin 5000 units/ml inj SUBQ SCH ×2 (09:43→20:53)
[2017-08-14] MEDS: Levemir Flexpen SUBQ SCH ×2 (09:50→20:56)
--- NOTE | 2017-08-14 11:38 | Infectious Diseases Prog Note ---
Assessment/Plan Assessment/Plan Full consult dictated: A) 1) neck abscess vs tumor 2) pmh noted P) 1) unasyn and vancomycin appropriate 2) ENT evaluation - ? I/D, ? biopsy 3) thank you Subjective Allergies: Coded Allergies: No Known Allergies (Unverified , 02/04/17) Objective Vital Signs Last 24 Hour Vital Signs Date Time Temp Pulse Resp B/P (MAP) Pulse Ox O2 Delivery O2 Flow Rate FiO2 08/14/17 09:42 127/69 08/14/17 09:42 98.5 08/14/17 09:41 103 127/69 08/14/17 09:41 103 127/69 08/14/17 08:00 98.5 103 18 127/69 96 98.5 08/14/17 04:00 97.9 68 20 129/75 98 Room Air 97.9 08/13/17 23:49 98.3 85 20 132/70 96 Room Air 98.3 08/13/17 20:43 90 18 Room Air 21 08/13/17 20:37 90 112/65 08/13/17 20:00 97.5 90 20 112/65 95 Room Air 97.5 08/13/17 17:35 97.2 08/13/17 17:35 80 126/72 08/13/17 16:00 97.2 80 20 126/72 94 Room Air 97.2 08/13/17 12:57 98.6 08/13/17 12:00 97.3 70 20 123/69 94 Room Air 97.3 Height (Feet): 5 Height (Inches): 4.00 Weight (Pounds): 120 Microbiology Date/Time Source Procedure Growth Status 08/11/17 19:00 Nasal Nares MRSA Culture - Final Staphylococcus Aureus - Mrsa Complete 08/11/17 19:00 Rectum 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 Complete Laboratory Tests Test 08/13/17 16:00 08/14/17 05:30 Vancomycin Level Trough 9.2 ug/mL (5.0-12.0) White Blood Count 11.3 K/UL (4.8-10.8) H Red Blood Count 4.61 M/UL (4.20-5.40) Hemoglobin 14.4 G/DL (12.0-16.0) Hematocrit 44.5 % (37.0-47.0) Mean Corpuscular Volume 97 FL (80-99) Mean Corpuscular Hemoglobin 31.3 PG (27.0-31.0) H Mean Corpuscular Hemoglobin Concent 32.4 G/DL (32.0-36.0) Red Cell Distribution Width 13.9 % (11.6-14.8) Platelet Count 243 K/UL (150-450) Mean Platelet Volume 7.7 FL (6.5-10.1) Neutrophils (%) (Auto) 75.7 % (45.0-75.0) H Lymphocytes (%) (Auto) 18.8 % (20.0-45.0) L Monocytes (%) (Auto) 4.6 % (1.0-10.0) Eosinophils (%) (Auto) 0.4 % (0.0-3.0) Basophils (%) (Auto) 0.5 % (0.0-2.0) Sodium Level 148 MMOL/L (136-145) H Potassium Level 3.7 MMOL/L (3.5-5.1) Chloride Level 113 MMOL/L (98-107) H Carbon Dioxide Level 29 MMOL/L (21-32) Anion Gap 6 mmol/L (5-15) Blood Urea Nitrogen 18 mg/dL (7-18) Creatinine 0.6 MG/DL (0.55-1.30) Estimat Glomerular Filtration Rate mL/min (>60) Glucose Level 320 MG/DL (74-106) H Calcium Level 8.8 MG/DL (8.5-10.1) Current Medications Medications (Trade) Dose Ordered Sig/Wayne Route PRN Reason Start Time Stop Time Status Last Admin Dose Admin Acetaminophen (Tylenol) 650 mg Q6H PRN ORAL For Pain 08/11/17 22:45 09/10/17 22:44 08/12/17 13:37 Albuterol/ Ipratropium (Albuterol/ Ipratropium) 3 ml Q6HR PRN HHN Shortness of Breath 08/11/17 23:00 08/16/17 22:59 Amlodipine Besylate (Norvasc) 5 mg BID GT 08/12/17 09:00 09/11/17 08:59 08/14/17 09:41 Ampicillin Sodium/ Sulbactam Sodium 1.5 gm/Sodium Chloride 55 ml @ 110 mls/hr Q6HR IVPB 08/13/17 18:00 08/20/17 17:59 08/14/17 04:59 Aspirin (ASA) 162 mg DAILY GT 08/12/17 09:00 09/11/17 08:59 08/14/17 09:42 Bisacodyl (Dulcolax) 10 mg DAILY PRN RECTAL Constipation 08/11/17 23:00 09/10/17 22:59 Cyclobenzaprine HCl (Flexeril) 5 mg THREE TIMES A DAY GT 08/12/17 09:00 09/11/17 08:59 08/14/17 09:42 Dextrose (Dextrose 50%) 25 ml STAT PRN IV Hypoglycemia 08/12/17 06:45 09/11/17 06:44 Dextrose (Dextrose 50%) 50 ml STAT PRN IV Hypoglycemia 08/12/17 06:45 09/11/17 06:44 Docusate Sodium (Colace) 100 mg TWICE A DAY ORAL 08/11/17 23:18 09/10/17 23:17 08/13/17 17:35 Heparin Sodium (Porcine) (Heparin 5000 units/ml) 5,000 units EVERY 12 HOURS SUBQ 08/11/17 23:21 09/10/17 23:20 08/14/17 09:43 Insulin Aspart (NovoLOG) BEFORE MEALS AND HS SUBQ 08/12/17 11:30 09/11/17 11:29 08/14/17 06:10 Insulin Detemir (Levemir) 10 units Q12HR SUBQ 08/13/17 21:00 09/12/17 20:59 08/14/17 09:50 Magnesium Hydroxide (Mom) 30 ml DAILY GT 08/12/17 09:00 09/11/17 08:59 08/14/17 09:42 Metoprolol Tartrate (Lopressor) 12.5 mg Q12HR GT 08/11/17 23:22 09/10/17 23:21 08/14/17 09:41 Multivitamins (Multivitamins W/ Minerals 15ml Liquid) 15 ml DAILY GT 08/12/17 10:30 09/11/17 10:29 08/14/17 09:42 Nitroglycerin (Ntg) 1 patch Q24H TDERMAL 08/12/17 09:00 09/11/17 08:59 08/14/17 09:42 Ondansetron HCl (Zofran ODT) 4 mg Q6H PRN GT Nausea & Vomiting 08/11/17 23:15 09/10/17 23:14 Sodium Chloride 1,000 ml @ 75 mls/hr [id number] IV 08/12/17 17:30 09/11/17 17:29 08/13/17 20:36 Vancomycin HCl (Vanco rx to dose) 1 ea DAILY PRN MISC Per rx protocol 08/11/17 22:45 09/10/17 22:44 Vancomycin/Sodium Chloride 250 ml @ 166.667 mls/hr Q12HR@0500,1700 IVPB 08/12/17 16:30 08/17/17 16:29 08/14/17 05:39 Vitamin D (Vitamin D) 5,000 intlu DAILY GT 08/12/17 09:00 09/11/17 08:59 08/14/17 09:41 Milton Valladares MD Aug 14, 2017 11:38
[2017-08-14 12:00] VITALS: BP 135/76
[2017-08-14 13:12] LABS: INR 1.1 (0.9-1.1)
[2017-08-14] MEDS: Ampicillin/Sulbactam Sod 3 GM in NS 110 ML IVPB SCH ×3 (13:35→23:20)
[2017-08-14 16:00] VITALS: BP 134/77
--- NOTE | 2017-08-14 17:58 | General Progress Note ---
Assessment/Plan Problem List: (1) Abscess ICD Codes: L02.91 - Cutaneous abscess, unspecified SNOMED: 994649660 (2) Hyperglycemia due to type 2 diabetes mellitus ICD Codes: E11.65 - Type 2 diabetes mellitus with hyperglycemia SNOMED: 77729584, 616019389766125 (3) HTN (hypertension) ICD Codes: I10 - Essential (primary) hypertension SNOMED: 70532540 (4) H/O: CVA (cerebrovascular accident) ICD Codes: Z86.73 - Personal history of transient ischemic attack (TIA), and cerebral infarction without residual deficits SNOMED: 542323091 (5) Sepsis ICD Codes: A41.9 - Sepsis, unspecified organism SNOMED: 52432264 (6) Toxic metabolic encephalopathy ICD Codes: G92 - Toxic encephalopathy SNOMED: 535322397 (7) Hypernatremia ICD Codes: E87.0 - Hyperosmolality and hypernatremia SNOMED: 32243342 (8) Mass in neck ICD Codes: R22.1 - Localized swelling, mass and lump, neck SNOMED: 014188928 Status: stable, progressing Assessment/Plan - General surgery consulted, appreciate rec's - ENT consulted - ID consulted appreciate rec's - Continue IV vancomycin and unasyn - IVF - neck CT showing chronic abscess vs. necrotic tumor --> possible I&D versus biopsy after DPOA consent - continue tube feeds - continue levemir + SSi - check A1c - pain control and supportive care DVT Prophylaxis: SCD, HSQ Code Status: Full Hospital Classification Declaration: Based on this initial evaluation, and depending on the patient's clinical course, I anticipate that this patient will require hospitalization for 2-3 days for abscess, sepsis, and close respiratory/ hemodynamic monitoring. Disposition: Once the patient is stable to leave the hospital, I anticipate the patient will likely be discharged to the following environment: SNF, [facility] I spent 34 minutes on this patient's case, and 20 minutes were dedicated to counseling and/or care coordination. Discussed with patient/family, nursing staff, SW/CM, ID, general surgery regarding clinical status, treatment course, and disposition planning. Time of note may not reflect time of encounter. Subjective Date patient seen: Aug 14, 2017 Time patient seen: 17:58 Allergies: Coded Allergies: No Known Allergies (Unverified , 12/23/17) Subjective - no acute events overnight - seen by general surgery - AF, HDS Objective Last 24 Hour Vital Signs Date Time Temp Pulse Resp B/P (MAP) Pulse Ox O2 Delivery O2 Flow Rate FiO2 08/14/17 16:00 98.3 89 18 134/77 96 98.3 08/14/17 13:00 98.5 08/14/17 12:00 98.5 78 18 135/76 95 98.5 08/14/17 10:41 98.5 08/14/17 09:42 127/69 08/14/17 09:42 98.5 08/14/17 09:41 103 127/69 08/14/17 09:41 103 127/69 08/14/17 08:10 83 18 Room Air 21 08/14/17 08:00 98.5 103 18 127/69 96 98.5 08/14/17 04:00 97.9 68 20 129/75 98 Room Air 97.9 08/13/17 23:49 98.3 85 20 132/70 96 Room Air 98.3 08/13/17 20:43 90 18 Room Air 21 08/13/17 20:37 90 112/65 08/13/17 20:00 97.5 90 20 112/65 95 Room Air 97.5 Intake and Output 08/13/17 08/14/17 19:00 07:00 Intake Total 1640 ml 1726.667 ml Output Total 501 ml Balance 1139 ml 1726.667 ml Free Water 200 ml 210 ml IV Total 1000 ml 856.667 ml Tube Feeding 440 ml 660 ml Output Urine Total 500 ml Stool Total 1 ml # Voids 4 # Bowel Movements 1 4 Laboratory Tests 08/14/17 05:30: White Blood Count 11.3H, Red Blood Count 4.61, Hemoglobin 14.4, Hematocrit 44.5 , Mean Corpuscular Volume 97, Mean Corpuscular Hemoglobin 31.3H, Mean Corpuscular Hemoglobin Concent 32.4, Red Cell Distribution Width 13.9, Platelet Count 243, Mean Platelet Volume 7.7, Neutrophils (%) (Auto) 75.7H, Lymphocytes ( %) (Auto) 18.8L, Monocytes (%) (Auto) 4.6, Eosinophils (%) (Auto) 0.4, Basophils (%) (Auto) 0.5, Sodium Level 148H, Potassium Level 3.7, Chloride Level 113H, Carbon Dioxide Level 29, Anion Gap 6, Blood Urea Nitrogen 18, Creatinine 0.6, Estimat Glomerular Filtration Rate , Glucose Level 320H, Calcium Level 8.8 08/14/17 12:50: Prothrombin Time 11.2, Prothromb Time International Ratio 1.1, Activated Partial Thromboplast Time 31 Height (Feet): 5 Height (Inches): 4.00 Weight (Pounds): 120 General Appearance: no apparent distress, alert EENT: PERRL/EOMI, other - left sick of neck and submandibular area swelling, TTP, hot to touch, and hard Cardiovascular: normal peripheral pulses, normal rate, regular rhythm Respiratory/Chest: chest wall non-tender, lungs clear, normal breath sounds Abdomen: normal bowel sounds, non tender, soft, other - PEG Extremities: normal range of motion, non-tender Neurologic: health support specialist II-XII grossly normal, no motor/sensory deficits, alert Skin: normal pigmentation, warm/dry Vicki Moore NP Aug 14, 2017 17:58
[2017-08-14] MEDS: Docusate 100mg/10ml Liq GT SCH ×2 (18:00→18:01)
[2017-08-14 20:00] VITALS: BP 109/62
--- NOTE | 2017-08-14 22:45 | Consultation ---
DATE OF CONSULTATION: 08/14/2017 INFECTIOUS DISEASE CONSULTATION CONSULTING PHYSICIAN: Milton Valladares M.D. ATTENDING PHYSICIAN: Yamileth Yates M.D. REFERRING PHYSICIAN: Yamileth Yates M.D. REASON FOR CONSULTATION: Possible neck abscess. CHIEF COMPLAINT: The patient's chief complaint coming in to the hospital is abscess of the neck. HISTORY OF PRESENT ILLNESS: This is a 76-year-old female, who comes in from an outside facility. She has a history of dementia. The patient had what looks like skin rash and possible abscess of the neck. The patient had a CT scan, which showed the following. The CT scan of the neck, which showed a submandibular gland enlargement with cystic areas throughout and possible adjacent to the gland. Also superficial and deep soft tissue swelling and edema seen throughout the parapharyngeal fat down the level of hyoid bone. The differential includes infection such as abscess versus necrotic mass. Of note, the patient also had positive colonization for MRSA. The patient was started appropriately on Unasyn and vancomycin. Infectious Disease consultation was requested for further management and guidance of antimicrobial therapy. MAR was noted. Orders were noted. Notes were reviewed. Case was discussed with Vicki Moore, nurse practitioner for Dr. Yates, today and communicated with Dr. Nix, who was also covering for Dr. Yates yesterday. Also discussed with nursing staff. PAST MEDICAL HISTORY: The patient has past medical history of dementia. She has history of diabetes and hypertension. She is a poor historian. She has history of confusion and dementia. She is nonverbal. She has history of hypernatremia in the past. Also she has history of weakness, dysphagia, aspiration risk, cerebral infarction, history of ulcers, history of hemiplegia, and difficulty walking. ALLERGIES: No known drug allergies. MEDICATIONS: Upon reviewing the MAR, she is on the following medications. She is on ampicillin, sulbactam. She is on insulin, which is Levemir. She is on vancomycin. She is on multivitamin. She is on amlodipine. She is on aspirin, vitamin D, and cyclobenzaprine. She is on nitroglycerin, metoprolol, heparin, docusate, bisacodyl, vancomycin, and Unasyn. Vancomycin is per pharmacy dosing. Outside medications noted and reconciliated. SOCIAL HISTORY: Unknown. No mention of smoking, alcohol, or drug abuse per the records. FAMILY HISTORY: Unknown. No mention of exposure to tuberculosis or cancer per the records. REVIEW OF SYSTEMS: CONSTITUTIONAL: Overall, she is not a very good historian. She has generalized fatigue and weakness. She has history of dementia, is poorly responsive. She has no central line. No Nunez. She has no fevers currently. HEAD AND NECK: She has the neck mass. CARDIAC: no cp or pressors, but no chest pain mentioned. GASTROINTESTINAL: No nausea, vomiting, or diarrhea. No hemoptysis or secretions at this time. GENITOURINARY: No Nunez. PULMONARY: No congestion. No hemoptysis secretions. SKIN: I guess she has had a fine maculopapular rash noted also. EXTREMITIES: No mention of extremity pain. NEUROLOGIC: No seizures at this time. She is poorly responsive. Otherwise, limited review of systems. PHYSICAL EXAMINATION: VITAL SIGNS: Temperature is 98.5, pulse rate is 103, respiratory rate 18, blood pressure 127/69, and saturation 96%. GENERAL: Lethargic, weak, poor historian. HEAD AND NECK: Oral exam, no thrush. Eye exam, no icterus. Normocephalic. Right below the chin, she has a neck mass that is quite solid. There is no obvious cellulitis or redness around it. NECK: Seems to be supple. HEART: Regular. No gallops, rubs, or murmurs. ABDOMEN: Soft. Positive bowel sounds. Nontender. LUNGS: Fairly clear bilaterally. No rhonchi or rales. SKIN: She has may be rash on her arms, but not obvious scabies rash, questionable drug reaction of some type. MUSCULOSKELETAL: No effusion. Legs are without cellulitis. PERIPHERAL VASCULAR: No cyanosis or gangrene. GENITOURINARY: She has no Nunez. LINE SITES: Without phlebitis. NEUROLOGIC: Generalized weakness and poorly responsive. LABORATORY AND DIAGNOSTIC DATA: Laboratory data is as follows, white count 11.3, hemoglobin 14.4. Creatinine is 0.6, sodium 148. MRSA screen is positive. CT scan of the neck showed enlarged left submandibular gland with cystic lesions and also superficial and deep soft tissue edema seen throughout the parapharyngeal fat, infection, abscess versus necrotic mass. Also BNP is 3453. ASSESSMENT AND PLAN: 1. The patient has what looks like a neck mass versus abscess, unclear underlying cellulitis. There is not much redness, however, the CT scan was consistent with infectious process versus necrotic mass. Rule out malignancy versus abscess. Continue Unasyn and vancomycin for possible neck abscess cellulitis. The patient has colonized with MRSA. We will continue vancomycin in addition to Unasyn for polymicrobial and also Staphylococcus aureus coverage including MRSA. I would also get an ENT evaluation for possible biopsy versus some type of debridement. Follow up on creatinine. Laboratories, the patient has mild leukocytosis only. Continue vancomycin and Unasyn pending workup. Case discussed with Vicki Moore about the ENT evaluation, which she stated has been ordered. 2. MRSA colonization and isolation 3. Mild leukocytosis. 4. Dementia, altered mental status. 5. Hypertension. 6. Diabetes. 7. Hypernatremia. 8. Blood sugar and blood pressure treatment for diabetes and hypertension per primary. 9. Cerebrovascular accident. 10. Hemiplegia. 11. Weakness. 12. Arm rash. 13. Cerebral infarction. 14. Encephalopathy. 15. Dysphagia. 16. No known allergies. 17. Social history is negative. 18. Family history is noncontributory. 19. MAR was noted. 20. Case was discussed with RN. 21. Continue treatment per primary consultants. 22. Notes and records were reviewed. 23. Orders were noted and entered. Milton Valladares M.D. DR: NGUYỄN JOB#: [id number] CC: CHRIS
[2017-08-15] VITALS: BP 156/75
[2017-08-15 04:00] VITALS: BP 128/83
[2017-08-15] MEDS: Vancomycin 750mg/NS 250ml IVPB SCH ×2 (04:02→17:07)
[2017-08-15] MEDS: Ampicillin/Sulbactam Sod 3 GM in NS 110 ML IVPB SCH ×3 (06:05→18:27)
[2017-08-15] MEDS: NovoLOG Insulin Flexpen SUBQ SCH ×3 (06:22→18:28)
[2017-08-15 07:48] LABS: BASOPHILS % (AUTO) 0.5 % (0.0-2.0); EOSINOPHILS % (AUTO) 0.8 % (0.0-3.0); HEMATOCRIT 44.6 % (37.0-47.0); HEMOGLOBIN 15.1 G/DL (12.0-16.0); LYMPHOCYTES % (AUTO) 25.4 % (20.0-45.0); MEAN CORPUSCULAR VOLUME 95 FL (80-99); MONOCYTES % (AUTO) 4.6 % (1.0-10.0); NEUTROPHILS % (AUTO) 68.7 % (45.0-75.0); PLATELET COUNT 215 K/UL (150-450); RED BLOOD COUNT 4.68 M/UL (4.20-5.40); RED CELL DISTRIBUTION WIDTH 13.6 % (11.6-14.8); WHITE BLOOD COUNT 9.9 K/UL (4.8-10.8)
[2017-08-15 08:00] VITALS: BP 125/78
[2017-08-15 08:00] LABS: ANION GAP 4 mmol/L (5-15); BLOOD UREA NITROGEN 14 mg/dL (7-18); CALCIUM 8.8 MG/DL (8.5-10.1); CARBON DIOXIDE 29 MMOL/L (21-32); CHLORIDE 111 MMOL/L (98-107); CREATININE 0.5 MG/DL (0.55-1.30); POTASSIUM 3.8 MMOL/L (3.5-5.1); SODIUM 144 MMOL/L (136-145)
[2017-08-15] MEDS: Aspirin Baby 81mg GT SCH (08:52)
[2017-08-15] MEDS: Metoprolol 25mg tab GT SCH ×2 (08:52→22:07)
[2017-08-15] MEDS: Multivitamins W/Minerals 15 ML UDC GT SCH (08:53)
[2017-08-15] MEDS: Milk of Magnesia 30ml Ud GT SCH (08:53)
[2017-08-15] MEDS: Vitamin D 1000 IU Tab GT SCH (08:53)
[2017-08-15] MEDS: Nitroglycerin Patch 0.2mg/hr TDERMAL SCH (08:53)
[2017-08-15] MEDS: Cyclobenzaprine 10mg Tab GT SCH ×3 (08:53→18:27)
[2017-08-15] MEDS: Heparin 5000 units/ml inj SUBQ SCH ×2 (08:54→21:00)
[2017-08-15] MEDS: Levemir Flexpen SUBQ SCH ×2 (08:56→22:21)
[2017-08-15] MEDS: Docusate 100mg/10ml Liq GT SCH ×2 (08:56→18:00)
--- NOTE | 2017-08-15 11:45 | Diagnostic Imaging Report ---
Indication: Dyspnea Comparison: 02/06/2017 A single view chest radiograph was obtained. Findings: The heart is normal in size. Lungs are clear. Bones are osteopenic. Aorta is ectatic and calcified. Gastrostomy noted. IMPRESSION: No acute disease
[2017-08-15 12:00] VITALS: BP 131/77
--- NOTE | 2017-08-15 14:10 | General Progress Note ---
Assessment/Plan Problem List: (1) Abscess ICD Codes: L02.91 - Cutaneous abscess, unspecified SNOMED: 577746345 (2) Hyperglycemia due to type 2 diabetes mellitus ICD Codes: E11.65 - Type 2 diabetes mellitus with hyperglycemia SNOMED: 17250923, 215438685382624 (3) HTN (hypertension) ICD Codes: I10 - Essential (primary) hypertension SNOMED: 67964735 (4) H/O: CVA (cerebrovascular accident) ICD Codes: Z86.73 - Personal history of transient ischemic attack (TIA), and cerebral infarction without residual deficits SNOMED: 952586580 (5) Sepsis ICD Codes: A41.9 - Sepsis, unspecified organism SNOMED: 08419376 (6) Toxic metabolic encephalopathy ICD Codes: G92 - Toxic encephalopathy SNOMED: 434184706 (7) Hypernatremia ICD Codes: E87.0 - Hyperosmolality and hypernatremia SNOMED: 21608380 (8) Mass in neck ICD Codes: R22.1 - Localized swelling, mass and lump, neck SNOMED: 449302559 Status: stable, progressing Assessment/Plan - General surgery consulted, appreciate rec's - ENT consulted - ID consulted appreciate rec's - Continue IV vancomycin and unasyn - IVF - neck CT showing chronic abscess vs. necrotic tumor --> possible I&D versus biopsy after DPOA consent - continue tube feeds - increase levemir to 13 units q12hr + NISS - A1c 7.7 - pain control and supportive care - discussed risks and benefits of I&D and bx with son and brother. Family agreeable to continue with procedure. DVT Prophylaxis: SCD, HSQ Code Status: Full Hospital Classification Declaration: Based on this initial evaluation, and depending on the patient's clinical course, I anticipate that this patient will require hospitalization for 2-3 days for abscess, sepsis, and close respiratory/ hemodynamic monitoring. Disposition: Once the patient is stable to leave the hospital, I anticipate the patient will likely be discharged to the following environment: SNF, [facility] I spent 34 minutes on this patient's case, and 20 minutes were dedicated to counseling and/or care coordination. Discussed with patient/family, nursing staff, SW/CM, ID, general surgery regarding clinical status, treatment course, and disposition planning. Time of note may not reflect time of encounter. Subjective Date patient seen: Aug 15, 2017 Time patient seen: 14:07 Allergies: Coded Allergies: No Known Allergies (Unverified , 02/04/17) Subjective - no acute events overnight - blood sugars elevated today to 400s - AF, HDS - d/w son and brother regarding need for surgical intervention; both agreeable Objective Last 24 Hour Vital Signs Date Time Temp Pulse Resp B/P (MAP) Pulse Ox O2 Delivery O2 Flow Rate FiO2 08/15/17 09:52 97.2 08/15/17 08:53 128/83 08/15/17 08:53 97.2 08/15/17 08:52 84 128/83 08/15/17 08:52 84 128/83 08/15/17 08:00 98.5 85 19 125/78 97 98.5 08/15/17 07:45 84 18 Room Air 21 08/15/17 04:00 97.2 84 18 128/83 97 97.2 08/15/17 00:00 98.1 96 18 156/75 97 98.1 08/14/17 20:50 68 109/52 08/14/17 20:18 87 18 Room Air 21 08/14/17 20:00 98.3 89 18 109/62 95 98.3 08/14/17 18:01 98.3 08/14/17 18:01 89 134/77 08/14/17 16:00 98.3 89 18 134/77 96 98.3 Intake and Output 08/14/17 08/15/17 19:00 07:00 Intake Total 934.333 ml 540 ml Output Total 500 ml Balance 434.333 ml 540 ml Free Water 100 ml IV Total 879.333 ml Tube Feeding 55 ml 440 ml Output Urine Total 500 ml # Bowel Movements 4 Laboratory Tests 08/15/17 07:00: White Blood Count 9.9, Red Blood Count 4.68, Hemoglobin 15.1, Hematocrit 44.6, Mean Corpuscular Volume 95, Mean Corpuscular Hemoglobin 32.2H, Mean Corpuscular Hemoglobin Concent 33.8, Red Cell Distribution Width 13.6, Platelet Count 215, Mean Platelet Volume 8.0, Neutrophils (%) (Auto) 68.7, Lymphocytes (%) (Auto) 25.4, Monocytes (%) (Auto) 4.6, Eosinophils (%) (Auto) 0.8, Basophils (%) (Auto ) 0.5, Sodium Level 144, Potassium Level 3.8, Chloride Level 111H, Carbon Dioxide Level 29, Anion Gap 4L, Blood Urea Nitrogen 14, Creatinine 0.5L, Estimat Glomerular Filtration Rate , Glucose Level 242H, Hemoglobin A1c 7.7H, Calcium Level 8.8 Height (Feet): 5 Height (Inches): 4.00 Weight (Pounds): 120 General Appearance: no apparent distress, lethargic EENT: PERRL/EOMI, other - left submandibular TTP, hard to touch, edema Cardiovascular: normal peripheral pulses, normal rate, regular rhythm Respiratory/Chest: chest wall non-tender, lungs clear, normal breath sounds Abdomen: normal bowel sounds, non tender, soft, other - peg Extremities: normal range of motion, non-tender 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
--- NOTE | 2017-08-15 15:12 | Consultation ---
History of Present Illness General Date patient seen: Aug 14, 2017 Chief Complaint: Skin Rash/Abscess Reason for Consultation: left neck mass Present Illness HPI 76-year-old female senior living resident from [facility] facility with history of dementia. The patient had what looks like skin rash and possible abscess of the neck. The patient had a CT scan, which showed the following. The CT scan of the neck, which showed a submandibular gland enlargement with cystic areas throughout and possible adjacent to the gland. Also superficial and deep soft tissue swelling and edema seen throughout the parapharyngeal fat down the level of hyoid bone. The differential includes infection such as abscess versus necrotic mass. surgery called to evaluate for left neck mass. patient seen, chart reviewed, patient examined. Allergies: Coded Allergies: No Known Allergies (Unverified , 02/04/17) Medication History Scheduled Amlodipine Besylate (Norvasc), 5 MG NG BID Aspirin* (Aspirin*), 162 MG NG DAILY Cholecalciferol (Vitamin D3)* (Vitamin D*), 5,000 INTLU GT DAILY Cran/Vitc/Mannose/Inulin/Brom (Uti-Stat Liquid), 3,875 MG GT DAILY, (Reported) Cyclobenzaprine Hcl* (Flexeril*), 5 MG ORAL THREE TIMES A DAY, (Reported) Docusate Sodium* (Docusate Sodium*), 100 MG GT TWICE A DAY, (Reported) Heparin Sod (Porcine) (Heparin Sodium*), 5,000 UNITS SUBQ EVERY 12 HOURS Magnesium Hydroxide* (Milk Of Magnesia*), 30 ML ORAL DAILY, (Reported) Metoprolol Tartrate (Metoprolol Tartrate), 12.5 MG NG Q12HR Multivitamin Liquid* (Multi-Delyn*), 5 ML GT DAILY, (Reported) Nitroglycerin (Nitroglycerin Patch), 1 PATCH TDERMAL Q24H Scheduled PRN Acetaminophen* (Acetaminophen*), 650 MG ORAL Q6H PRN for Mild Pain/Temp > 100.5, (Reported) Bisacodyl (Bisacodyl), 10 MG RC DAILY PRN for Constipation, (Reported) Ipratropium/Albuterol Sulfate (Iprat-Albut 0.5-3(2.5) Mg/3 Ml), 3 ML IH Q6HR PRN for Shortness of Breath, (Reported) Na Phos,M-B/Na Phos,Di-Ba* (Fleet Enema*), 133 ML RECTAL DAILY PRN for Constipation, (Reported) Discontinued Medications Clotrimazole* (Lotrimin*), 1 APPLIC TOPIC EVERY 12 HOURS Discontinued Reason: Pt stopped taking med Fluconazole* (Diflucan*), 200 MG GT DAILY Discontinued Reason: Therapy completed Insulin Aspart (Novolog Flexpen), 0 UNITS SUBQ EVERY 6 HOURS Discontinued Reason: MD discontinued med Insulin Detemir (Levemir Flexpen), 10 UNITS SUBQ BEDTIME Discontinued Reason: Pt stopped taking med Nystatin (Nystop), 1 APPLIC TOPIC THREE TIMES A DAY Discontinued Reason: MD discontinued med Patient History Limited by: medical condition History Provided By: Medical Record, PMD Healthcare decision maker Resuscitation status Full Code Advanced Directive on File Yes Past Medical/Surgical History Past Medical/Surgical History: (1) Elevated troponin (2) PNA (pneumonia) (3) Encounter for PEG (percutaneous endoscopic gastrostomy) (4) Large ischemic R MCA stroke (5) Hypokalemia (6) Hypercalcemia (7) Upper sacral area unstageable pressure ulcer (8) Perineal area gertrudis rashes extending to left and right buttocks (9) Right lateral malleolus stage I pressure ulcer (10) Hypernatremia (11) Abscess (12) Sepsis (13) HTN (hypertension) (14) Mass in neck (15) Toxic metabolic encephalopathy (16) H/O: CVA (cerebrovascular accident) (17) Hyperglycemia due to type 2 diabetes mellitus Review of Systems ROS Narrative cannot obtain given medical condition Physical Exam General Appearance: no apparent distress Lines, tubes and drains: peripheral HEENT: mucous membranes moist Neck: other - left neck mass, non mobile, no erythema, deep Respiratory/Chest: no respiratory distress, no accessory muscle use Cardiovascular/Chest: normal rate Abdomen: soft, no organomegaly, no mass Skin Exam: warm/dry Neurologic: unresponsiveness Last 24 Hour Vital Signs Date Time Temp Pulse Resp B/P (MAP) Pulse Ox O2 Delivery O2 Flow Rate FiO2 08/15/17 12:00 98.2 76 20 131/77 96 98.2 08/15/17 09:52 97.2 08/15/17 08:53 128/83 08/15/17 08:53 97.2 08/15/17 08:52 84 128/83 08/15/17 08:52 84 128/83 08/15/17 08:00 98.5 85 19 125/78 97 98.5 08/15/17 07:45 84 18 Room Air 21 08/15/17 04:00 97.2 84 18 128/83 97 97.2 08/15/17 00:00 98.1 96 18 156/75 97 98.1 08/14/17 20:50 68 109/52 08/14/17 20:18 87 18 Room Air 21 08/14/17 20:00 98.3 89 18 109/62 95 98.3 08/14/17 18:01 98.3 08/14/17 18:01 89 134/77 08/14/17 16:00 98.3 89 18 134/77 96 98.3 Intake and Output 08/14/17 08/15/17 19:00 07:00 Intake Total 934.333 ml 540 ml Output Total 500 ml Balance 434.333 ml 540 ml Free Water 100 ml IV Total 879.333 ml Tube Feeding 55 ml 440 ml Output Urine Total 500 ml # Bowel Movements 4 Laboratory Tests Test 08/15/17 07:00 White Blood Count 9.9 K/UL (4.8-10.8) Red Blood Count 4.68 M/UL (4.20-5.40) Hemoglobin 15.1 G/DL (12.0-16.0) Hematocrit 44.6 % (37.0-47.0) Mean Corpuscular Volume 95 FL (80-99) Mean Corpuscular Hemoglobin 32.2 PG (27.0-31.0) H Mean Corpuscular Hemoglobin Concent 33.8 G/DL (32.0-36.0) Red Cell Distribution Width 13.6 % (11.6-14.8) Platelet Count 215 K/UL (150-450) Mean Platelet Volume 8.0 FL (6.5-10.1) Neutrophils (%) (Auto) 68.7 % (45.0-75.0) Lymphocytes (%) (Auto) 25.4 % (20.0-45.0) Monocytes (%) (Auto) 4.6 % (1.0-10.0) Eosinophils (%) (Auto) 0.8 % (0.0-3.0) Basophils (%) (Auto) 0.5 % (0.0-2.0) Sodium Level 144 MMOL/L (136-145) Potassium Level 3.8 MMOL/L (3.5-5.1) Chloride Level 111 MMOL/L (98-107) H Carbon Dioxide Level 29 MMOL/L (21-32) Anion Gap 4 mmol/L (5-15) L Blood Urea Nitrogen 14 mg/dL (7-18) Creatinine 0.5 MG/DL (0.55-1.30) L Estimat Glomerular Filtration Rate mL/min (>60) Glucose Level 242 MG/DL (74-106) H Hemoglobin A1c 7.7 % (4.3-6.0) H Calcium Level 8.8 MG/DL (8.5-10.1) Height (Feet): 5 Height (Inches): 4.00 Weight (Pounds): 120 Medications Current Medications Medications (Trade) Dose Ordered Sig/Wayne Route PRN Reason Start Time Stop Time Status Last Admin Dose Admin Acetaminophen (Tylenol) 650 mg Q6H PRN ORAL For Pain 08/11/17 22:45 09/10/17 22:44 08/12/17 13:37 Albuterol/ Ipratropium (Albuterol/ Ipratropium) 3 ml Q6HR PRN HHN Shortness of Breath 08/11/17 23:00 08/16/17 22:59 Amlodipine Besylate (Norvasc) 5 mg BID GT 08/12/17 09:00 09/11/17 08:59 08/15/17 08:52 Ampicillin Sodium/ Sulbactam Sodium 3 gm/Sodium Chloride 110 ml @ 220 mls/hr Q6HR IVPB 08/14/17 13:00 08/21/17 12:59 08/15/17 13:06 Aspirin (ASA) 162 mg DAILY GT 08/12/17 09:00 09/11/17 08:59 08/15/17 08:52 Bisacodyl (Dulcolax) 10 mg DAILY PRN RECTAL Constipation 08/11/17 23:00 09/10/17 22:59 Cyclobenzaprine HCl (Flexeril) 5 mg THREE TIMES A DAY GT 08/12/17 09:00 09/11/17 08:59 08/15/17 08:53 Dextrose (Dextrose 50%) 25 ml STAT PRN IV Hypoglycemia 08/12/17 06:45 09/11/17 06:44 Dextrose (Dextrose 50%) 50 ml STAT PRN IV Hypoglycemia 08/12/17 06:45 09/11/17 06:44 Docusate Sodium (Colace) 100 mg TWICE A DAY GT 08/14/17 18:00 09/13/17 17:59 Heparin Sodium (Porcine) (Heparin 5000 units/ml) 5,000 units EVERY 12 HOURS SUBQ 08/11/17 23:21 09/10/17 23:20 08/15/17 08:54 Insulin Aspart (NovoLOG) Q6HR SUBQ 08/14/17 18:00 09/11/17 11:29 08/15/17 13:07 Insulin Detemir (Levemir) 13 units Q12HR SUBQ 08/15/17 21:00 09/12/17 20:59 Magnesium Hydroxide (Mom) 30 ml DAILY GT 08/12/17 09:00 09/11/17 08:59 08/15/17 08:53 Metoprolol Tartrate (Lopressor) 12.5 mg Q12HR GT 08/11/17 23:22 09/10/17 23:21 08/15/17 08:52 Multivitamins (Multivitamins W/ Minerals 15ml Liquid) 15 ml DAILY GT 08/12/17 10:30 09/11/17 10:29 08/15/17 08:53 Nitroglycerin (Ntg) 1 patch Q24H TDERMAL 08/12/17 09:00 09/11/17 08:59 08/15/17 08:53 Ondansetron HCl (Zofran ODT) 4 mg Q6H PRN GT Nausea & Vomiting 08/11/17 23:15 09/10/17 23:14 Sodium Chloride 1,000 ml @ 75 mls/hr [id number] IV 08/12/17 17:30 09/11/17 17:29 08/15/17 13:07 Vancomycin HCl (Vanco rx to dose) 1 ea DAILY PRN MISC Per rx protocol 08/11/17 22:45 09/10/17 22:44 Vancomycin/Sodium Chloride 250 ml @ 166.667 mls/hr Q12HR@0500,1700 IVPB 08/12/17 16:30 08/17/17 16:29 08/15/17 04:02 Vitamin D (Vitamin D) 5,000 intlu DAILY GT 08/12/17 09:00 09/11/17 08:59 08/15/17 08:53 Assessment/Plan Problem List: (1) Mass in neck Assessment & Plan: 76F with left neck mass. noted on exam and seen on CT. possible infectious vs necrotic tumor. spoke with family today. plan for biopsy vs drainage cont with current care -npo Mon -labs -consent ICD Codes: R22.1 - Localized swelling, mass and lump, neck SNOMED: [id number] Akhil Jackson Aug 15, 2017 15:12
--- NOTE | 2017-08-15 15:56 | Consultation ---
History of Present Illness General Date patient seen: Aug 14, 2017 Chief Complaint: Skin Rash/Abscess Reason for Consultation: left neck mass Present Illness HPI 76-year-old female, who comes in from an outside facility, history of dementia. The patient had skin rash and possible abscess of the neck. the pt is verbal and alert however doesn't have capacity as she is unable to be logical and communicate in a rational manner. Allergies: Coded Allergies: No Known Allergies (Unverified , 02/04/17) Medication History Scheduled Amlodipine Besylate (Norvasc), 5 MG NG BID Aspirin* (Aspirin*), 162 MG NG DAILY Cholecalciferol (Vitamin D3)* (Vitamin D*), 5,000 INTLU GT DAILY Cran/Vitc/Mannose/Inulin/Brom (Uti-Stat Liquid), 3,875 MG GT DAILY, (Reported) Cyclobenzaprine Hcl* (Flexeril*), 5 MG ORAL THREE TIMES A DAY, (Reported) Docusate Sodium* (Docusate Sodium*), 100 MG GT TWICE A DAY, (Reported) Heparin Sod (Porcine) (Heparin Sodium*), 5,000 UNITS SUBQ EVERY 12 HOURS Magnesium Hydroxide* (Milk Of Magnesia*), 30 ML ORAL DAILY, (Reported) Metoprolol Tartrate (Metoprolol Tartrate), 12.5 MG NG Q12HR Multivitamin Liquid* (Multi-Delyn*), 5 ML GT DAILY, (Reported) Nitroglycerin (Nitroglycerin Patch), 1 PATCH TDERMAL Q24H Scheduled PRN Acetaminophen* (Acetaminophen*), 650 MG ORAL Q6H PRN for Mild Pain/Temp > 100.5, (Reported) Bisacodyl (Bisacodyl), 10 MG RC DAILY PRN for Constipation, (Reported) Ipratropium/Albuterol Sulfate (Iprat-Albut 0.5-3(2.5) Mg/3 Ml), 3 ML IH Q6HR PRN for Shortness of Breath, (Reported) Na Phos,M-B/Na Phos,Di-Ba* (Fleet Enema*), 133 ML RECTAL DAILY PRN for Constipation, (Reported) Discontinued Medications Clotrimazole* (Lotrimin*), 1 APPLIC TOPIC EVERY 12 HOURS Discontinued Reason: Pt stopped taking med Fluconazole* (Diflucan*), 200 MG GT DAILY Discontinued Reason: Therapy completed Insulin Aspart (Novolog Flexpen), 0 UNITS SUBQ EVERY 6 HOURS Discontinued Reason: MD discontinued med Insulin Detemir (Levemir Flexpen), 10 UNITS SUBQ BEDTIME Discontinued Reason: Pt stopped taking med Nystatin (Nystop), 1 APPLIC TOPIC THREE TIMES A DAY Discontinued Reason: MD discontinued med Patient History History Provided By: Patient, Medical Record, PMD Healthcare decision maker Resuscitation status Full Code Advanced Directive on File Yes Past Medical/Surgical History Past Medical/Surgical History: (1) Hypernatremia (2) Abscess (3) Sepsis (4) HTN (hypertension) (5) Mass in neck (6) Toxic metabolic encephalopathy (7) H/O: CVA (cerebrovascular accident) (8) Hyperglycemia due to type 2 diabetes mellitus (9) Hypokalemia (10) Hypercalcemia (11) Elevated troponin (12) Encounter for PEG (percutaneous endoscopic gastrostomy) (13) PNA (pneumonia) (14) Upper sacral area unstageable pressure ulcer (15) Large ischemic R MCA stroke (16) Perineal area gertrudis rashes extending to left and right buttocks (17) Right lateral malleolus stage I pressure ulcer Review of Systems Psychiatric: Reports: prior hx, anxiety, depressed feelings, emotional problems Physical Exam General Appearance: no apparent distress, alert Neurologic: oriented x 3, responsive Last 24 Hour Vital Signs Date Time Temp Pulse Resp B/P (MAP) Pulse Ox O2 Delivery O2 Flow Rate FiO2 08/15/17 12:00 98.2 76 20 131/77 96 98.2 08/15/17 09:52 97.2 08/15/17 08:53 128/83 08/15/17 08:53 97.2 08/15/17 08:52 84 128/83 08/15/17 08:52 84 128/83 08/15/17 08:00 98.5 85 19 125/78 97 98.5 08/15/17 07:45 84 18 Room Air 21 08/15/17 04:00 97.2 84 18 128/83 97 97.2 08/15/17 00:00 98.1 96 18 156/75 97 98.1 08/14/17 20:50 68 109/52 08/14/17 20:18 87 18 Room Air 21 08/14/17 20:00 98.3 89 18 109/62 95 98.3 08/14/17 18:01 98.3 08/14/17 18:01 89 134/77 08/14/17 16:00 98.3 89 18 134/77 96 98.3 Intake and Output 08/14/17 08/15/17 19:00 07:00 Intake Total 934.333 ml 540 ml Output Total 500 ml Balance 434.333 ml 540 ml Free Water 100 ml IV Total 879.333 ml Tube Feeding 55 ml 440 ml Output Urine Total 500 ml # Bowel Movements 4 Laboratory Tests Test 08/15/17 07:00 White Blood Count 9.9 K/UL (4.8-10.8) Red Blood Count 4.68 M/UL (4.20-5.40) Hemoglobin 15.1 G/DL (12.0-16.0) Hematocrit 44.6 % (37.0-47.0) Mean Corpuscular Volume 95 FL (80-99) Mean Corpuscular Hemoglobin 32.2 PG (27.0-31.0) H Mean Corpuscular Hemoglobin Concent 33.8 G/DL (32.0-36.0) Red Cell Distribution Width 13.6 % (11.6-14.8) Platelet Count 215 K/UL (150-450) Mean Platelet Volume 8.0 FL (6.5-10.1) Neutrophils (%) (Auto) 68.7 % (45.0-75.0) Lymphocytes (%) (Auto) 25.4 % (20.0-45.0) Monocytes (%) (Auto) 4.6 % (1.0-10.0) Eosinophils (%) (Auto) 0.8 % (0.0-3.0) Basophils (%) (Auto) 0.5 % (0.0-2.0) Sodium Level 144 MMOL/L (136-145) Potassium Level 3.8 MMOL/L (3.5-5.1) Chloride Level 111 MMOL/L (98-107) H Carbon Dioxide Level 29 MMOL/L (21-32) Anion Gap 4 mmol/L (5-15) L Blood Urea Nitrogen 14 mg/dL (7-18) Creatinine 0.5 MG/DL (0.55-1.30) L Estimat Glomerular Filtration Rate mL/min (>60) Glucose Level 242 MG/DL (74-106) H Hemoglobin A1c 7.7 % (4.3-6.0) H Calcium Level 8.8 MG/DL (8.5-10.1) Height (Feet): 5 Height (Inches): 4.00 Weight (Pounds): 120 Medications Current Medications Medications (Trade) Dose Ordered Sig/Wayne Route PRN Reason Start Time Stop Time Status Last Admin Dose Admin Acetaminophen (Tylenol) 650 mg Q6H PRN ORAL For Pain 08/11/17 22:45 09/10/17 22:44 08/12/17 13:37 Albuterol/ Ipratropium (Albuterol/ Ipratropium) 3 ml Q6HR PRN HHN Shortness of Breath 08/11/17 23:00 08/16/17 22:59 Amlodipine Besylate (Norvasc) 5 mg BID GT 08/12/17 09:00 09/11/17 08:59 08/15/17 08:52 Ampicillin Sodium/ Sulbactam Sodium 3 gm/Sodium Chloride 110 ml @ 220 mls/hr Q6HR IVPB 08/14/17 13:00 08/21/17 12:59 08/15/17 13:06 Aspirin (ASA) 162 mg DAILY GT 08/12/17 09:00 09/11/17 08:59 08/15/17 08:52 Bisacodyl (Dulcolax) 10 mg DAILY PRN RECTAL Constipation 08/11/17 23:00 09/10/17 22:59 Cyclobenzaprine HCl (Flexeril) 5 mg THREE TIMES A DAY GT 08/12/17 09:00 09/11/17 08:59 08/15/17 08:53 Dextrose (Dextrose 50%) 25 ml STAT PRN IV Hypoglycemia 08/12/17 06:45 09/11/17 06:44 Dextrose (Dextrose 50%) 50 ml STAT PRN IV Hypoglycemia 08/12/17 06:45 09/11/17 06:44 Docusate Sodium (Colace) 100 mg TWICE A DAY GT 08/14/17 18:00 09/13/17 17:59 Heparin Sodium (Porcine) (Heparin 5000 units/ml) 5,000 units EVERY 12 HOURS SUBQ 08/11/17 23:21 09/10/17 23:20 08/15/17 08:54 Insulin Aspart (NovoLOG) Q6HR SUBQ 08/14/17 18:00 09/11/17 11:29 08/15/17 13:07 Insulin Detemir (Levemir) 13 units Q12HR SUBQ 08/15/17 21:00 09/12/17 20:59 Magnesium Hydroxide (Mom) 30 ml DAILY GT 08/12/17 09:00 09/11/17 08:59 08/15/17 08:53 Metoprolol Tartrate (Lopressor) 12.5 mg Q12HR GT 08/11/17 23:22 09/10/17 23:21 08/15/17 08:52 Multivitamins (Multivitamins W/ Minerals 15ml Liquid) 15 ml DAILY GT 08/12/17 10:30 09/11/17 10:29 08/15/17 08:53 Nitroglycerin (Ntg) 1 patch Q24H TDERMAL 08/12/17 09:00 09/11/17 08:59 08/15/17 08:53 Ondansetron HCl (Zofran ODT) 4 mg Q6H PRN GT Nausea & Vomiting 08/11/17 23:15 09/10/17 23:14 Sodium Chloride 1,000 ml @ 75 mls/hr [id number] IV 08/12/17 17:30 09/11/17 17:29 08/15/17 13:07 Vancomycin HCl (Vanco rx to dose) 1 ea DAILY PRN MISC Per rx protocol 08/11/17 22:45 09/10/17 22:44 Vancomycin/Sodium Chloride 250 ml @ 166.667 mls/hr Q12HR@0500,1700 IVPB 08/12/17 16:30 08/17/17 16:29 08/15/17 04:02 Vitamin D (Vitamin D) 5,000 intlu DAILY GT 08/12/17 09:00 09/11/17 08:59 08/15/17 08:53 Assessment/Plan Status: stable Assessment/Plan Dementia anxiety the pt lacks capacity to make decisions ativan Kendal Yoo MD Aug 15, 2017 15:56
--- NOTE | 2017-08-15 15:57 | General Progress Note ---
Assessment/Plan Assessment/Plan Dementia anxiety the pt lacks capacity to make decisions ativan prn Subjective Date patient seen: Aug 15, 2017 Neurologic/Psychiatric: Reports: anxiety, emotional problems Allergies: Coded Allergies: No Known Allergies (Unverified , 02/04/17) Objective Last 24 Hour Vital Signs Date Time Temp Pulse Resp B/P (MAP) Pulse Ox O2 Delivery O2 Flow Rate FiO2 08/15/17 12:00 98.2 76 20 131/77 96 98.2 08/15/17 09:52 97.2 08/15/17 08:53 128/83 08/15/17 08:53 97.2 08/15/17 08:52 84 128/83 08/15/17 08:52 84 128/83 08/15/17 08:00 98.5 85 19 125/78 97 98.5 08/15/17 07:45 84 18 Room Air 21 08/15/17 04:00 97.2 84 18 128/83 97 97.2 08/15/17 00:00 98.1 96 18 156/75 97 98.1 08/14/17 20:50 68 109/52 08/14/17 20:18 87 18 Room Air 21 08/14/17 20:00 98.3 89 18 109/62 95 98.3 08/14/17 18:01 98.3 08/14/17 18:01 89 134/77 08/14/17 16:00 98.3 89 18 134/77 96 98.3 Intake and Output 08/14/17 08/15/17 19:00 07:00 Intake Total 934.333 ml 540 ml Output Total 500 ml Balance 434.333 ml 540 ml Free Water 100 ml IV Total 879.333 ml Tube Feeding 55 ml 440 ml Output Urine Total 500 ml # Bowel Movements 4 Laboratory Tests 08/15/17 07:00: White Blood Count 9.9, Red Blood Count 4.68, Hemoglobin 15.1, Hematocrit 44.6, Mean Corpuscular Volume 95, Mean Corpuscular Hemoglobin 32.2H, Mean Corpuscular Hemoglobin Concent 33.8, Red Cell Distribution Width 13.6, Platelet Count 215, Mean Platelet Volume 8.0, Neutrophils (%) (Auto) 68.7, Lymphocytes (%) (Auto) 25.4, Monocytes (%) (Auto) 4.6, Eosinophils (%) (Auto) 0.8, Basophils (%) (Auto ) 0.5, Sodium Level 144, Potassium Level 3.8, Chloride Level 111H, Carbon Dioxide Level 29, Anion Gap 4L, Blood Urea Nitrogen 14, Creatinine 0.5L, Estimat Glomerular Filtration Rate , Glucose Level 242H, Hemoglobin A1c 7.7H, Calcium Level 8.8 Height (Feet): 5 Height (Inches): 4.00 Weight (Pounds): 120 General Appearance: no apparent distress, alert Kendal Norris MD Aug 15, 2017 15:57
[2017-08-15 16:00] VITALS: BP 130/71
[2017-08-15] MEDS ORDERED: LORazepam 0.5mg tab ORAL PRN (16:00)
--- NOTE | 2017-08-15 18:40 | Anethesia Preoperative Eval ---
Anesthesia Pre-op PMH/ROS General Date of Evaluation: Aug 15, 2017 Anesthesiologist: Agatha ASA Score: ASA 4 Mallampati Score Class I : Soft palate, uvula, fauces, pillars visible Class II: Soft palate, uvula, fauces visible Class III: Soft palate, base of uvula visible Class IV: Only hard plate visible Mallampati Classification: Class II Surgeon: Manuel Diagnosis: L Neck Mass Surgical Procedure: Biopsy L Neck Mass Family History: no anesthesia problems Allergies: Coded Allergies: No Known Allergies (Unverified , 02/04/17) Medications: see eMAR Past Medical History Cardiovascular: Reports: HTN Neurologic/Psychiatric: Reports: dementia Endocrine: Reports: DM Musculoskeletal/Integumentary: Reports: other - Unsteady PSxH Narrative: PEG Anesthesia Pre-op Phys. Exam Physician Exam Last Vital Signs Date Time Temp Pulse Resp B/P (MAP) Pulse Ox O2 Delivery O2 Flow Rate FiO2 08/15/17 18:27 98.2 08/15/17 18:27 76 131/77 08/15/17 12:00 20 96 08/15/17 07:45 Room Air 21 Constitutional: NAD Neurologic: CN 2-12 intact Cardiovascular: RRR Respiratory: CTA Gastrointestinal: S/NT/ND Airway Exam Mallampati Score: Class II MO: limited ROM: limited Teeth: missing, intact Anesthesia Pre-op A/P Labs Hematology Test 08/15/17 07:00 White Blood Count 9.9 K/UL (4.8-10.8) Red Blood Count 4.68 M/UL (4.20-5.40) Hemoglobin 15.1 G/DL (12.0-16.0) Hematocrit 44.6 % (37.0-47.0) Mean Corpuscular Volume 95 FL (80-99) Mean Corpuscular Hemoglobin 32.2 PG (27.0-31.0) H Mean Corpuscular Hemoglobin Concent 33.8 G/DL (32.0-36.0) Red Cell Distribution Width 13.6 % (11.6-14.8) Platelet Count 215 K/UL (150-450) Mean Platelet Volume 8.0 FL (6.5-10.1) Neutrophils (%) (Auto) 68.7 % (45.0-75.0) Lymphocytes (%) (Auto) 25.4 % (20.0-45.0) Monocytes (%) (Auto) 4.6 % (1.0-10.0) Eosinophils (%) (Auto) 0.8 % (0.0-3.0) Basophils (%) (Auto) 0.5 % (0.0-2.0) Chemistry Test 08/15/17 07:00 Sodium Level 144 MMOL/L (136-145) Potassium Level 3.8 MMOL/L (3.5-5.1) Chloride Level 111 MMOL/L (98-107) H Carbon Dioxide Level 29 MMOL/L (21-32) Anion Gap 4 mmol/L (5-15) L Blood Urea Nitrogen 14 mg/dL (7-18) Creatinine 0.5 MG/DL (0.55-1.30) L Estimat Glomerular Filtration Rate mL/min (>60) Glucose Level 242 MG/DL (74-106) H Hemoglobin A1c 7.7 % (4.3-6.0) H Calcium Level 8.8 MG/DL (8.5-10.1) Risk Assessment & Plan Assessment: ASA 4 Plan: GA Status Change Before Surgery: No Pre-Antibiotics Drug: Anatoliy Reynolds MD Aug 15, 2017 18:40
[2017-08-15 20:41] VITALS: BP 131/71
[2017-08-16] VITALS (7 sets, daily range): BP systolic 106–131; BP diastolic 56–79
[2017-08-16] MEDS: Ampicillin/Sulbactam Sod 3 GM in NS 110 ML IVPB SCH ×5 (00:09→23:42)
[2017-08-16] MEDS: NovoLOG Insulin Flexpen SUBQ SCH ×5 (00:14→23:43)
[2017-08-16] MEDS: Vancomycin 750mg/NS 250ml IVPB SCH (04:08)
[2017-08-16] MEDS: Milk of Magnesia 30ml Ud GT SCH (09:47)
[2017-08-16] MEDS: Docusate 100mg/10ml Liq GT SCH ×2 (09:47→18:12)
[2017-08-16] MEDS: Multivitamins W/Minerals 15 ML UDC GT SCH (09:47)
[2017-08-16] MEDS: Cyclobenzaprine 10mg Tab GT SCH ×3 (09:48→18:13)
[2017-08-16] MEDS: Vitamin D 1000 IU Tab GT SCH (09:49)
[2017-08-16] MEDS: Metoprolol 25mg tab GT SCH ×2 (09:49→20:35)
[2017-08-16] MEDS: Nitroglycerin Patch 0.2mg/hr TDERMAL SCH (09:49)
[2017-08-16] MEDS: Aspirin Baby 81mg GT SCH (09:49)
[2017-08-16] MEDS: Heparin 5000 units/ml inj SUBQ SCH ×3 (09:51→20:54)
[2017-08-16] MEDS: Levemir Flexpen SUBQ SCH ×2 (09:51→20:30)
[2017-08-16 10:08] LABS: BASOPHILS % (AUTO) 0.7 % (0.0-2.0); EOSINOPHILS % (AUTO) 1.7 % (0.0-3.0); HEMATOCRIT 43.7 % (37.0-47.0); HEMOGLOBIN 14.3 G/DL (12.0-16.0); LYMPHOCYTES % (AUTO) 19.2 % (20.0-45.0); MEAN CORPUSCULAR VOLUME 93 FL (80-99); MONOCYTES % (AUTO) 5.7 % (1.0-10.0); NEUTROPHILS % (AUTO) 72.7 % (45.0-75.0); PLATELET COUNT 238 K/UL (150-450); RED BLOOD COUNT 4.68 M/UL (4.20-5.40); RED CELL DISTRIBUTION WIDTH 13.2 % (11.6-14.8); WHITE BLOOD COUNT 8.9 K/UL (4.8-10.8)
[2017-08-16 10:20] LABS: ALANINE AMINOTRANSFERASE 19 U/L (12-78); ALBUMIN 2.3 G/DL (3.4-5.0); ALBUMIN/GLOBULIN RATIO 0.5 (1.0-2.7); ALKALINE PHOSPHATASE 96 U/L (46-116); ANION GAP 7 mmol/L (5-15); ASPARTATE AMINO TRANSFERASE 21 U/L (15-37); BILIRUBIN,TOTAL 0.3 MG/DL (0.2-1.0); BLOOD UREA NITROGEN 11 mg/dL (7-18); CALCIUM 8.9 MG/DL (8.5-10.1); CARBON DIOXIDE 27 MMOL/L (21-32); CHLORIDE 105 MMOL/L (98-107); CREATININE 0.4 MG/DL (0.55-1.30); POTASSIUM 3.7 MMOL/L (3.5-5.1); SODIUM 139 MMOL/L (136-145)
--- NOTE | 2017-08-16 12:58 | General Surgery Progress Note ---
General Surgery-Progress Note Subjective Additional Comments no acute events. spoke with family and consent obtained. Objective Last 24 Hour Vital Signs Date Time Temp Pulse Resp B/P (MAP) Pulse Ox O2 Delivery O2 Flow Rate FiO2 08/16/17 12:00 97.3 72 18 131/69 97 Room Air 97.3 08/16/17 09:49 125/71 08/16/17 09:49 79 125/71 08/16/17 09:48 98.1 08/16/17 09:48 79 125/71 08/16/17 08:00 98.1 79 20 125/71 98 Room Air 98.1 08/16/17 06:44 88 20 Room Air 21 08/16/17 04:15 96.3 78 20 131/56 99 Room Air 96.3 08/16/17 00:58 98.1 79 20 125/71 98 Room Air 98.1 08/15/17 22:07 81 131/71 08/15/17 20:42 76 20 Room Air 21 08/15/17 20:41 96.3 81 20 131/71 97 Room Air 96.3 08/15/17 19:26 98.2 08/15/17 18:27 98.2 08/15/17 18:27 76 131/77 08/15/17 16:00 97.6 76 22 130/71 96 97.6 I&O Intake and Output 08/15/17 08/16/17 19:00 07:00 Intake Total 1355.000 ml 1345 ml Balance 1355.000 ml 1345 ml Free Water 270 ml 200 ml IV Total 645.000 ml 595 ml Tube Feeding 440 ml 550 ml # Voids 5 5 # Bowel Movements 1 2 Drains: none Cardiovascular: RSR Respiratory: clear Abdomen: soft, flat, non-tender, present bowel sounds Extremities: no cyanosis Laboratory Tests Test 08/16/17 09:37 White Blood Count 8.9 K/UL (4.8-10.8) Red Blood Count 4.68 M/UL (4.20-5.40) Hemoglobin 14.3 G/DL (12.0-16.0) Hematocrit 43.7 % (37.0-47.0) Mean Corpuscular Volume 93 FL (80-99) Mean Corpuscular Hemoglobin 30.7 PG (27.0-31.0) Mean Corpuscular Hemoglobin Concent 32.8 G/DL (32.0-36.0) Red Cell Distribution Width 13.2 % (11.6-14.8) Platelet Count 238 K/UL (150-450) Mean Platelet Volume 8.9 FL (6.5-10.1) Neutrophils (%) (Auto) 72.7 % (45.0-75.0) Lymphocytes (%) (Auto) 19.2 % (20.0-45.0) L Monocytes (%) (Auto) 5.7 % (1.0-10.0) Eosinophils (%) (Auto) 1.7 % (0.0-3.0) Basophils (%) (Auto) 0.7 % (0.0-2.0) Sodium Level 139 MMOL/L (136-145) Potassium Level 3.7 MMOL/L (3.5-5.1) Chloride Level 105 MMOL/L (98-107) Carbon Dioxide Level 27 MMOL/L (21-32) Anion Gap 7 mmol/L (5-15) Blood Urea Nitrogen 11 mg/dL (7-18) Creatinine 0.4 MG/DL (0.55-1.30) L Estimat Glomerular Filtration Rate mL/min (>60) Glucose Level 175 MG/DL (74-106) H Calcium Level 8.9 MG/DL (8.5-10.1) Total Bilirubin 0.3 MG/DL (0.2-1.0) Aspartate Amino Transf (AST/SGOT) 21 U/L (15-37) Alanine Aminotransferase (ALT/SGPT) 19 U/L (12-78) Alkaline Phosphatase 96 U/L (46-116) Total Protein 6.9 G/DL (6.4-8.2) Albumin 2.3 G/DL (3.4-5.0) L Globulin 4.6 g/dL Albumin/Globulin Ratio 0.5 (1.0-2.7) L Plan Problems: (1) Mass in neck Assessment & Plan: 76F with left neck mass. noted on exam and seen on CT. possible infectious vs necrotic tumor. spoke with family today. plan for biopsy vs drainage cont with current care -OR tomorrow for biopsy -npo p mn -labs -consent Akhil Jackson Aug 16, 2017 12:58
--- NOTE | 2017-08-16 12:59 | Infectious Diseases Prog Note ---
Assessment/Plan Assessment/Plan ASSESSMENT AND PLAN: 1. neck abscess/cellulitis vs tumor/malignancy, mild leukocytosis - vancomycin and unasyn - plan on biopsy and I/D tomorrow - f/u on labs - d/w Vicki Moore NP 2. MRSA colonization and isolation. 3. Mild leukocytosis. 4. Dementia, altered mental status. 5. Hypertension. 6. Diabetes. 7. Hypernatremia. 8. Blood sugar and blood pressure treatment for diabetes and hypertension per primary. 9. Cerebrovascular accident. 10. Hemiplegia. 11. Weakness. 12. Arm rash. 13. Cerebral infarction. 14. Encephalopathy. 15. Dysphagia. 16. No known allergies. 17. Social history is negative. 18. Family history is noncontributory. 19. MAR was noted. 20. Case was discussed with RN. 21. Continue treatment per primary consultants. 22. Notes and records were reviewed. 23. Orders were noted and entered. Subjective Constitutional: Reports: fatigue; Denies: fever HEENT: Denies: congestion Respiratory: Denies: shortness of breath Cardiovascular: Denies: chest pain Gastrointestinal/Abdominal: Denies: nausea, vomiting, diarrhea Genitourinary: Reports: other - + taylor Neurologic: Denies: headache Psychiatric: Denies: depression Skin: Denies: rash Hematologic: Denies: bleeding Musculoskeletal: Denies: pain Allergies: Coded Allergies: No Known Allergies (Unverified , 02/04/17) Objective Vital Signs Last 24 Hour Vital Signs Date Time Temp Pulse Resp B/P (MAP) Pulse Ox O2 Delivery O2 Flow Rate FiO2 08/16/17 09:49 125/71 08/16/17 09:49 79 125/71 08/16/17 09:48 98.1 08/16/17 09:48 79 125/71 08/16/17 08:00 98.1 79 20 125/71 98 Room Air 98.1 08/16/17 06:44 88 20 Room Air 21 08/16/17 04:15 96.3 78 20 131/56 99 Room Air 96.3 08/16/17 00:58 98.1 79 20 125/71 98 Room Air 98.1 08/15/17 22:07 81 131/71 08/15/17 20:42 76 20 Room Air 21 08/15/17 20:41 96.3 81 20 131/71 97 Room Air 96.3 08/15/17 19:26 98.2 08/15/17 18:27 98.2 08/15/17 18:27 76 131/77 08/15/17 16:00 97.6 76 22 130/71 96 97.6 Height (Feet): 5 Height (Inches): 4.00 Weight (Pounds): 131 General Appearance: no acute distress HEENT: normocephalic, atraumatic, anicteric, mucous membranes moist Respiratory/Chest: lungs clear, normal breath sounds, no respiratory distress, no accessory muscle use Cardiovascular: normal rate, regular rhythm, no gallop/murmur, no JVD Abdomen: normal bowel sounds, soft, non tender, no organomegaly, non distended Genitourinary: other Extremities: no cyanosis Skin: no rash 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 There is superficial and deep soft tissue swelling with edema seen throughout the parapharyngeal fat down to the level of the hyoid bone. Infection/abscess versus necrotic mass. Chest x-ray - negative (report noted) Microbiology Date/Time Source Procedure Growth Status 08/11/17 19:00 Nasal Nares MRSA Culture - Final Staphylococcus Aureus - Mrsa Complete 08/11/17 19:00 Rectum 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 Complete Laboratory Tests Test 08/16/17 09:37 White Blood Count 8.9 K/UL (4.8-10.8) Red Blood Count 4.68 M/UL (4.20-5.40) Hemoglobin 14.3 G/DL (12.0-16.0) Hematocrit 43.7 % (37.0-47.0) Mean Corpuscular Volume 93 FL (80-99) Mean Corpuscular Hemoglobin 30.7 PG (27.0-31.0) Mean Corpuscular Hemoglobin Concent 32.8 G/DL (32.0-36.0) Red Cell Distribution Width 13.2 % (11.6-14.8) Platelet Count 238 K/UL (150-450) Mean Platelet Volume 8.9 FL (6.5-10.1) Neutrophils (%) (Auto) 72.7 % (45.0-75.0) Lymphocytes (%) (Auto) 19.2 % (20.0-45.0) L Monocytes (%) (Auto) 5.7 % (1.0-10.0) Eosinophils (%) (Auto) 1.7 % (0.0-3.0) Basophils (%) (Auto) 0.7 % (0.0-2.0) Sodium Level 139 MMOL/L (136-145) Potassium Level 3.7 MMOL/L (3.5-5.1) Chloride Level 105 MMOL/L (98-107) Carbon Dioxide Level 27 MMOL/L (21-32) Anion Gap 7 mmol/L (5-15) Blood Urea Nitrogen 11 mg/dL (7-18) Creatinine 0.4 MG/DL (0.55-1.30) L Estimat Glomerular Filtration Rate mL/min (>60) Glucose Level 175 MG/DL (74-106) H Calcium Level 8.9 MG/DL (8.5-10.1) Total Bilirubin 0.3 MG/DL (0.2-1.0) Aspartate Amino Transf (AST/SGOT) 21 U/L (15-37) Alanine Aminotransferase (ALT/SGPT) 19 U/L (12-78) Alkaline Phosphatase 96 U/L (46-116) Total Protein 6.9 G/DL (6.4-8.2) Albumin 2.3 G/DL (3.4-5.0) L Globulin 4.6 g/dL Albumin/Globulin Ratio 0.5 (1.0-2.7) L Current Medications Medications (Trade) Dose Ordered Sig/Wayne Route PRN Reason Start Time Stop Time Status Last Admin Dose Admin Acetaminophen (Tylenol) 650 mg Q6H PRN ORAL For Pain 08/11/17 22:45 09/10/17 22:44 08/12/17 13:37 Albuterol/ Ipratropium (Albuterol/ Ipratropium) 3 ml Q6HR PRN HHN Shortness of Breath 08/11/17 23:00 08/16/17 22:59 Amlodipine Besylate (Norvasc) 5 mg BID GT 6/30/18 09:00 09/11/17 08:59 08/16/17 09:48 Ampicillin Sodium/ Sulbactam Sodium 3 gm/Sodium Chloride 110 ml @ 220 mls/hr Q6HR IVPB 08/14/17 13:00 08/21/17 12:59 08/16/17 12:06 Aspirin (ASA) 162 mg DAILY GT 08/12/17 09:00 09/11/17 08:59 08/16/17 09:49 Bisacodyl (Dulcolax) 10 mg DAILY PRN RECTAL Constipation 08/11/17 23:00 09/10/17 22:59 Cyclobenzaprine HCl (Flexeril) 5 mg THREE TIMES A DAY GT 08/12/17 09:00 09/11/17 08:59 08/16/17 09:48 Dextrose (Dextrose 50%) 25 ml STAT PRN IV Hypoglycemia 08/12/17 06:45 09/11/17 06:44 Dextrose (Dextrose 50%) 50 ml STAT PRN IV Hypoglycemia 08/12/17 06:45 09/11/17 06:44 Docusate Sodium (Colace) 100 mg TWICE A DAY GT 08/14/17 18:00 09/13/17 17:59 08/16/17 09:47 Heparin Sodium (Porcine) (Heparin 5000 units/ml) 5,000 units EVERY 12 HOURS SUBQ 08/11/17 23:21 09/10/17 23:20 08/16/17 09:51 Insulin Aspart (NovoLOG) Q6HR SUBQ 08/14/17 18:00 09/11/17 11:29 08/16/17 12:08 Insulin Detemir (Levemir) 13 units Q12HR SUBQ 08/15/17 21:00 09/12/17 20:59 08/16/17 09:51 Lorazepam (Ativan) 1 mg Q6H PRN ORAL For Anxiety 08/15/17 16:00 08/22/17 15:59 Magnesium Hydroxide (Mom) 30 ml DAILY GT 08/12/17 09:00 09/11/17 08:59 08/16/17 09:47 Metoprolol Tartrate (Lopressor) 12.5 mg Q12HR GT 08/11/17 23:22 09/10/17 23:21 08/16/17 09:49 Multivitamins (Multivitamins W/ Minerals 15ml Liquid) 15 ml DAILY GT 08/12/17 10:30 09/11/17 10:29 08/16/17 09:47 Nitroglycerin (Ntg) 1 patch Q24H TDERMAL 08/12/17 09:00 09/11/17 08:59 08/16/17 09:49 Ondansetron HCl (Zofran ODT) 4 mg Q6H PRN GT Nausea & Vomiting 08/11/17 23:15 09/10/17 23:14 Sodium Chloride 1,000 ml @ 75 mls/hr [id number] IV 08/12/17 17:30 09/11/17 17:29 08/16/17 06:22 Vancomycin HCl (Vanco rx to dose) 1 ea DAILY PRN MISC Per rx protocol 08/11/17 22:45 09/10/17 22:44 Vancomycin/Sodium Chloride 250 ml @ 166.667 mls/hr Q12HR@0500,1700 IVPB 08/12/17 16:30 08/17/17 16:29 08/16/17 04:08 Vitamin D (Vitamin D) 5,000 intlu DAILY GT 08/12/17 09:00 09/11/17 08:59 08/16/17 09:49 Milotn Valladares MD Aug 16, 2017 12:59
--- NOTE | 2017-08-16 12:59 | Pre-Procedure Note/Attestation ---
Pre-Procedure Note/Attestation Complete Prior to Procedure Planned Procedure: left Procedure Narrative: biopsy of left neck mass Indications for Procedure Pre-Operative Diagnosis: left neck mass Attestation I attest that I discussed the nature of the procedure; its benefits; risks and complications; and alternatives (and the risks and benefits of such alternatives ), prior to the procedure, with the patient (or the patient's legal claims service representative). I attest that, if there was a reasonable possibility of needing a blood transfusion, the patient (or the patient's legal claims service representative) was given the [facility] standardized written summary, pursuant to the Jake Merrill Blood Safety Act ([place] Health and Safety Code # 1645, as amended). I attest that I re-evaluated the patient just prior to the surgery and that there has been no change in the patient's H&P, except as documented below: Akhil Jackson Aug 16, 2017 12:59
--- NOTE | 2017-08-16 13:26 | General Progress Note ---
Assessment/Plan Problem List: (1) Abscess ICD Codes: L02.91 - Cutaneous abscess, unspecified SNOMED: 775277119 (2) Hyperglycemia due to type 2 diabetes mellitus ICD Codes: E11.65 - Type 2 diabetes mellitus with hyperglycemia SNOMED: 79387421, 638380817840395 (3) HTN (hypertension) ICD Codes: I10 - Essential (primary) hypertension SNOMED: 47277803 (4) H/O: CVA (cerebrovascular accident) ICD Codes: Z86.73 - Personal history of transient ischemic attack (TIA), and cerebral infarction without residual deficits SNOMED: 176180646 (5) Sepsis ICD Codes: A41.9 - Sepsis, unspecified organism SNOMED: 15721901 (6) Toxic metabolic encephalopathy ICD Codes: G92 - Toxic encephalopathy SNOMED: 164273057 (7) Hypernatremia ICD Codes: E87.0 - Hyperosmolality and hypernatremia SNOMED: 09112869 (8) Mass in neck ICD Codes: R22.1 - Localized swelling, mass and lump, neck SNOMED: 898644197 (9) Rash ICD Codes: R21 - Rash and other nonspecific skin eruption SNOMED: 692447810 Status: stable, progressing Assessment/Plan - General surgery consulted, appreciate rec's - ENT consulted - ID consulted appreciate rec's - Continue IV vancomycin and unasyn - IVF - neck CT showing chronic abscess vs. necrotic tumor --> possible I&D versus biopsy after DPOA consent - continue tube feeds - increase levemir to 13 units q12hr + NISS. - A1c 7.7 - clotrimazole topical to fungal rash of left armpit - check venous duplex of bilateral upper and lower extremities - pain control and supportive care - discussed risks and benefits of I&D and bx with son and brother. Family agreeable to continue with procedure. - surgery scheduled for tomorrow - NPO after midnight DVT Prophylaxis: SCD, HSQ Code Status: Full Hospital Classification Declaration: Based on this initial evaluation, and depending on the patient's clinical course, I anticipate that this patient will require hospitalization for 2-3 days for abscess, sepsis, and close respiratory/ hemodynamic monitoring. Disposition: Once the patient is stable to leave the hospital, I anticipate the patient will likely be discharged to the following environment: SNF, [facility] I spent 34 minutes on this patient's case, and 20 minutes were dedicated to counseling and/or care coordination. Discussed with patient/family, nursing staff, SW/CM, ID, general surgery regarding clinical status, treatment course, and disposition planning. Time of note may not reflect time of encounter. Subjective Date patient seen: Aug 16, 2017 Time patient seen: 13:25 Allergies: Coded Allergies: No Known Allergies (Unverified , 02/04/17) Subjective - no acute events overnight - blood sugars better today at 179 - AF, HDS - scheduled for OR tomorrow - rash and pain to left armpit Objective Last 24 Hour Vital Signs Date Time Temp Pulse Resp B/P (MAP) Pulse Ox O2 Delivery O2 Flow Rate FiO2 08/16/17 12:00 97.3 72 18 131/69 97 Room Air 97.3 08/16/17 09:49 125/71 08/16/17 09:49 79 125/71 08/16/17 09:48 98.1 08/16/17 09:48 79 125/71 08/16/17 08:00 98.1 79 20 125/71 98 Room Air 98.1 08/16/17 06:44 88 20 Room Air 21 08/16/17 04:15 96.3 78 20 131/56 99 Room Air 96.3 08/16/17 00:58 98.1 79 20 125/71 98 Room Air 98.1 08/15/17 22:07 81 131/71 08/15/17 20:42 76 20 Room Air 21 08/15/17 20:41 96.3 81 20 131/71 97 Room Air 96.3 08/15/17 19:26 98.2 08/15/17 18:27 98.2 08/15/17 18:27 76 131/77 08/15/17 16:00 97.6 76 22 130/71 96 97.6 Intake and Output 08/15/17 08/16/17 19:00 07:00 Intake Total 1355.000 ml 1345 ml Balance 1355.000 ml 1345 ml Free Water 270 ml 200 ml IV Total 645.000 ml 595 ml Tube Feeding 440 ml 550 ml # Voids 5 5 # Bowel Movements 1 2 Laboratory Tests 08/16/17 09:37: White Blood Count 8.9, Red Blood Count 4.68, Hemoglobin 14.3, Hematocrit 43.7, Mean Corpuscular Volume 93, Mean Corpuscular Hemoglobin 30.7, Mean Corpuscular Hemoglobin Concent 32.8, Red Cell Distribution Width 13.2, Platelet Count 238, Mean Platelet Volume 8.9, Neutrophils (%) (Auto) 72.7, Lymphocytes (%) (Auto) 19.2L, Monocytes (%) (Auto) 5.7, Eosinophils (%) (Auto) 1.7, Basophils (%) (Auto ) 0.7, Sodium Level 139, Potassium Level 3.7, Chloride Level 105, Carbon Dioxide Level 27, Anion Gap 7, Blood Urea Nitrogen 11, Creatinine 0.4L, Estimat Glomerular Filtration Rate , Glucose Level 175H, Calcium Level 8.9, Total Bilirubin 0.3, Aspartate Amino Transf (AST/SGOT) 21, Alanine Aminotransferase ( ALT/SGPT) 19, Alkaline Phosphatase 96, Total Protein 6.9, Albumin 2.3L, Globulin 4.6, Albumin/Globulin Ratio 0.5L Height (Feet): 5 Height (Inches): 4.00 Weight (Pounds): 131 General Appearance: no apparent distress, lethargic EENT: PERRL/EOMI, normal ENT inspection Neck: other - left submandibular hard to touch mass Cardiovascular: normal peripheral pulses, normal rate, regular rhythm Respiratory/Chest: chest wall non-tender, lungs clear, normal breath sounds Abdomen: normal bowel sounds, non tender, soft, other - PEG Neurologic: body trimmer II-XII grossly normal, alert, other - RUE 5/5 strength, 0/5 strength to LUE and bilateral lower extremities Skin: warm/dry, rash - to left armpit, confluent, no drainage Vicki Moore NP Aug 16, 2017 13:26
[2017-08-16] MEDS: Vancomycin 750mg/NS 250ml 250 ML IVPB SCH (16:40)
--- NOTE | 2017-08-16 23:49 | General Progress Note ---
Assessment/Plan Assessment/Plan Dementia anxiety the pt lacks capacity to make decisions ativan prn Subjective Date patient seen: Aug 16, 2017 Neurologic/Psychiatric: Reports: anxiety, depressed Allergies: Coded Allergies: No Known Allergies (Unverified , 02/04/17) Objective Last 24 Hour Vital Signs Date Time Temp Pulse Resp B/P (MAP) Pulse Ox O2 Delivery O2 Flow Rate FiO2 08/16/17 20:35 73 138/68 08/16/17 20:00 98.2 95 18 125/79 100 Room Air 98.2 08/16/17 20:00 79 20 Room Air 21 08/16/17 19:12 98.2 08/16/17 18:13 98.2 08/16/17 18:11 69 113/62 08/16/17 18:00 69 113/62 08/16/17 16:00 98.2 77 18 106/61 99 Room Air 98.2 08/16/17 13:56 97.3 08/16/17 12:00 97.3 72 18 131/69 97 Room Air 97.3 08/16/17 09:49 125/71 08/16/17 09:49 79 125/71 08/16/17 09:48 98.1 08/16/17 09:48 79 125/71 08/16/17 08:00 98.1 79 20 125/71 98 Room Air 98.1 08/16/17 06:44 88 20 Room Air 21 08/16/17 04:15 96.3 78 20 131/56 99 Room Air 96.3 08/16/17 00:58 98.1 79 20 125/71 98 Room Air 98.1 Intake and Output 08/15/17 08/16/17 19:00 07:00 Intake Total 1355.000 ml 1345 ml Balance 1355.000 ml 1345 ml Free Water 270 ml 200 ml IV Total 645.000 ml 595 ml Tube Feeding 440 ml 550 ml # Voids 5 5 # Bowel Movements 1 2 Laboratory Tests 08/16/17 09:37: White Blood Count 8.9, Red Blood Count 4.68, Hemoglobin 14.3, Hematocrit 43.7, Mean Corpuscular Volume 93, Mean Corpuscular Hemoglobin 30.7, Mean Corpuscular Hemoglobin Concent 32.8, Red Cell Distribution Width 13.2, Platelet Count 238, Mean Platelet Volume 8.9, Neutrophils (%) (Auto) 72.7, Lymphocytes (%) (Auto) 19.2L, Monocytes (%) (Auto) 5.7, Eosinophils (%) (Auto) 1.7, Basophils (%) (Auto ) 0.7, Sodium Level 139, Potassium Level 3.7, Chloride Level 105, Carbon Dioxide Level 27, Anion Gap 7, Blood Urea Nitrogen 11, Creatinine 0.4L, Estimat Glomerular Filtration Rate , Glucose Level 175H, Calcium Level 8.9, Total Bilirubin 0.3, Aspartate Amino Transf (AST/SGOT) 21, Alanine Aminotransferase ( ALT/SGPT) 19, Alkaline Phosphatase 96, Total Protein 6.9, Albumin 2.3L, Globulin 4.6, Albumin/Globulin Ratio 0.5L Height (Feet): 5 Height (Inches): 4.00 Weight (Pounds): 131 Kendal Norris MD Aug 16, 2017 23:49
[2017-08-17] VITALS (11 sets, daily range): BP systolic 112–137; BP diastolic 55–80
[2017-08-17] MEDS: Vancomycin 750mg/NS 250ml 250 ML IVPB SCH ×2 (04:26→19:55)
[2017-08-17] MEDS: NovoLOG Insulin Flexpen SUBQ SCH ×4 (05:56→23:40)
[2017-08-17] MEDS: Ampicillin/Sulbactam Sod 3 GM in NS 110 ML IVPB SCH ×4 (06:09→23:26)
[2017-08-17 06:29] LABS: BASOPHILS % (AUTO) 0.6 % (0.0-2.0); EOSINOPHILS % (AUTO) 0.9 % (0.0-3.0); HEMOGLOBIN 14.9 G/DL (12.0-16.0); LYMPHOCYTES % (AUTO) 18.5 % (20.0-45.0); MEAN CORPUSCULAR VOLUME 94 FL (80-99); MONOCYTES % (AUTO) 5.7 % (1.0-10.0); NEUTROPHILS % (AUTO) 74.3 % (45.0-75.0); PLATELET COUNT 244 K/UL (150-450); RED BLOOD COUNT 4.68 M/UL (4.20-5.40); RED CELL DISTRIBUTION WIDTH 13.2 % (11.6-14.8); WHITE BLOOD COUNT 8.7 K/UL (4.8-10.8)
[2017-08-17 07:01] LABS: ANION GAP 9 mmol/L (5-15); BLOOD UREA NITROGEN 7 mg/dL (7-18); CALCIUM 8.7 MG/DL (8.5-10.1); CARBON DIOXIDE 26 MMOL/L (21-32); CHLORIDE 104 MMOL/L (98-107); CREATININE 0.4 MG/DL (0.55-1.30); POTASSIUM 3.7 MMOL/L (3.5-5.1); SODIUM 139 MMOL/L (136-145)
--- NOTE | 2017-08-17 07:11 | Immediate Post-Op Evaluation ---
Immediate Post-Op Evalulation Immediate Post-Op Evalulation Procedure: I&D and biopsy of left neck mass Date of Evaluation: Aug 17, 2017 Time of Evaluation: 08:31 IV Fluids: 500 Blood Products: 0 Estimated Blood Loss: min Urinary Output: 0 Blood Pressure Systolic: 113 Blood Pressure Diastolic: 70 Pulse Rate: 76 Respiratory Rate: 16 O2 Sat by Pulse Oximetry: 100 Temperature (Fahrenheit): 97 Pain Score (1-10): 0 Nausea: No Vomiting: No Complications 0 Patient Status: awake, reacts, patent, none Hydration Status: adequate Drug: on abx on floor Given Within 1 Hr of Incision: Yes JEET BARBA M.D. Aug 17, 2017 07:11
[2017-08-17] MEDS ORDERED: NeoSporin Gu Irrig 1ml Amp IRRIG ONE (07:22)
[2017-08-17] MEDS ORDERED: Lidocaine 1% 10mg/ml/Epi 0.005mg/ml 30ml vial INJ ONE (07:22)
[2017-08-17] MEDS ORDERED: Bacitracin 50000 Units Vial ONE (07:22)
[2017-08-17] MEDS ORDERED: NS Irrig 1000ml ONE (07:30)
[2017-08-17] MEDS ORDERED: Sterile Water Irrig 1000ml IRRIG ONE (07:30)
[2017-08-17] MEDS ORDERED: Midazolam 2mg/2ml Inj ONE (07:38)
[2017-08-17] MEDS ORDERED: Propofol 200mg/20ml IV ONE (07:38)
[2017-08-17] MEDS ORDERED: Lidocaine 1% MPF 10mg/ml 5ml ONE (07:38)
[2017-08-17] MEDS ORDERED: fentaNYL 100 mcg/2 mL IV ONE (07:38)
[2017-08-17] MEDS ORDERED: ePHEDrine 50mg/ml Inj ONE (08:06)
--- NOTE | 2017-08-17 08:41 | Brief Operative Note ---
Immediate Post Operative Note Operative Note Pre-op Diagnosis: left neck mass Procedure: Incision and drainage of left neck mass with sharp debridement of abscess cavity and biopsy Post-op Diagnosis: left neck deep abscess Surgeon: janet Anesthesiologist: rose Anesthesia: general, local Specimen: yes Complications: none Condition: stable Fluids: see records Estimated Blood Loss: minimal Drains: saida Implant(s) used?: No Akhil Jackson Aug 17, 2017 08:41
[2017-08-17] MEDS ORDERED: Morphine Sulfate 2mg/ml Inj IVP PRN (08:45)
[2017-08-17] MEDS: Heparin 5000 units/ml inj SUBQ SCH ×2 (09:00→21:43)
[2017-08-17] MEDS: Multivitamins W/Minerals 15 ML UDC GT SCH (09:00)
[2017-08-17] MEDS: Cyclobenzaprine 10mg Tab GT SCH ×3 (09:00→18:25)
[2017-08-17] MEDS: Docusate 100mg/10ml Liq GT SCH ×2 (09:00→18:25)
[2017-08-17] MEDS: Levemir Flexpen SUBQ SCH ×2 (09:00→21:44)
[2017-08-17] MEDS: Metoprolol 25mg tab GT SCH ×2 (09:00→21:40)
[2017-08-17] MEDS: Vitamin D 1000 IU Tab GT SCH (09:00)
[2017-08-17] MEDS: Aspirin Baby 81mg GT SCH (09:00)
[2017-08-17] MEDS: Nitroglycerin Patch 0.2mg/hr TDERMAL SCH (09:00)
[2017-08-17] MEDS: Milk of Magnesia 30ml Ud GT SCH (09:00)
--- NOTE | 2017-08-17 13:36 | General Progress Note ---
Assessment/Plan Problem List: (1) Abscess ICD Codes: L02.91 - Cutaneous abscess, unspecified SNOMED: 118865974 (2) Hyperglycemia due to type 2 diabetes mellitus ICD Codes: E11.65 - Type 2 diabetes mellitus with hyperglycemia SNOMED: 68231445, 943088945420332 (3) HTN (hypertension) ICD Codes: I10 - Essential (primary) hypertension SNOMED: 61952065 (4) H/O: CVA (cerebrovascular accident) ICD Codes: Z86.73 - Personal history of transient ischemic attack (TIA), and cerebral infarction without residual deficits SNOMED: 569537946 (5) Sepsis ICD Codes: A41.9 - Sepsis, unspecified organism SNOMED: 09109802 (6) Toxic metabolic encephalopathy ICD Codes: G92 - Toxic encephalopathy SNOMED: 420413624 (7) Hypernatremia ICD Codes: E87.0 - Hyperosmolality and hypernatremia SNOMED: 90368405 (8) Mass in neck ICD Codes: R22.1 - Localized swelling, mass and lump, neck SNOMED: 997098298 (9) Rash ICD Codes: R21 - Rash and other nonspecific skin eruption SNOMED: 098801689 (10) Status post incision and drainage ICD Codes: Z98.890 - Other specified postprocedural states SNOMED: 535705612, 652602628 Status: stable, progressing Assessment/Plan - General surgery consulted, appreciate rec's - ENT consulted - ID consulted appreciate rec's - s/p I&D 08/17 with no periop or postop complications - f/u biopsy and culture results - Continue IV vancomycin and unasyn - IVF - neck CT showing chronic abscess vs. necrotic tumor - continue tube feeds - increase levemir to 13 units q12hr + NISS -- blood sugars better controlled in the 150s - A1c 7.7 - clotrimazole topical to fungal rash of left armpit -- improving - check venous duplex of bilateral upper and lower extremities -- pending - pain control and supportive care DVT Prophylaxis: SCD, HSQ Code Status: Full Hospital Classification Declaration: Based on this initial evaluation, and depending on the patient's clinical course, I anticipate that this patient will require hospitalization for 2-3 days for abscess, sepsis, and close respiratory/ hemodynamic monitoring. Disposition: Once the patient is stable to leave the hospital, I anticipate the patient will likely be discharged to the following environment: SNF, [facility] I spent 34 minutes on this patient's case, and 20 minutes were dedicated to counseling and/or care coordination. Discussed with patient/family, nursing staff, SW/CM, ID, general surgery regarding clinical status, treatment course, and disposition planning. Time of note may not reflect time of encounter. Subjective Date patient seen: Aug 17, 2017 Time patient seen: 13:32 Allergies: Coded Allergies: No Known Allergies (Unverified , 02/04/17) Subjective - s/p I&D and biopsy to left submandibular area with no periop or postop complications - rash to left armpit improved on clotrimazole - pain well controlled - appears in no NAD. AF, HDS Objective Last 24 Hour Vital Signs Date Time Temp Pulse Resp B/P (MAP) Pulse Ox O2 Delivery O2 Flow Rate FiO2 08/17/17 12:35 97.8 08/17/17 09:10 97.8 73 13 131/69 100 Nasal Cannula 3 97.8 08/17/17 08:55 73 19 126/66 100 Nasal Cannula 3 08/17/17 08:45 72 13 126/66 100 Simple Mask 6 08/17/17 08:35 71 15 128/65 100 Simple Mask 6 08/17/17 08:30 71 14 124/64 100 Simple Mask 6 08/17/17 08:29 206.6 76 16 100 08/17/17 08:26 97.0 76 16 113/70 100 Simple Mask 6 97.0 08/17/17 04:00 97.5 74 20 112/65 96 Room Air 97.5 08/17/17 00:00 97.1 79 20 136/80 100 Room Air 97.1 08/16/17 20:35 73 138/68 08/16/17 20:00 98.2 95 18 125/79 100 Room Air 98.2 08/16/17 20:00 79 20 Room Air 21 08/16/17 19:12 98.2 08/16/17 18:13 98.2 08/16/17 18:11 69 113/62 08/16/17 18:00 69 113/62 08/16/17 16:00 98.2 77 18 106/61 99 Room Air 98.2 08/16/17 13:56 97.3 Intake and Output 08/16/17 08/17/17 19:00 07:00 Intake Total 1515.000 ml 1320.000 ml Balance 1515.000 ml 1320.000 ml Free Water 150 ml 100 ml IV Total 1035.000 ml 945.000 ml Tube Feeding 330 ml 275 ml # Voids 2 # Bowel Movements 1 2 Laboratory Tests 08/17/17 05:50: White Blood Count 8.7, Red Blood Count 4.68, Hemoglobin 14.9, Hematocrit 44.0, Mean Corpuscular Volume 94, Mean Corpuscular Hemoglobin 31.9H, Mean Corpuscular Hemoglobin Concent 33.9, Red Cell Distribution Width 13.2, Platelet Count 244, Mean Platelet Volume 8.2, Neutrophils (%) (Auto) 74.3, Lymphocytes (%) (Auto) 18.5L, Monocytes (%) (Auto) 5.7, Eosinophils (%) (Auto) 0.9, Basophils (%) (Auto ) 0.6, Sodium Level 139, Potassium Level 3.7, Chloride Level 104, Carbon Dioxide Level 26, Anion Gap 9, Blood Urea Nitrogen 7, Creatinine 0.4L, Estimat Glomerular Filtration Rate , Glucose Level 101, Calcium Level 8.7 Height (Feet): 5 Height (Inches): 4.00 Weight (Pounds): 132 General Appearance: no apparent distress, alert EENT: PERRL/EOMI, other - poor dentition Neck: other - s/p left I&D with sutures c/d/i Cardiovascular: normal peripheral pulses, normal rate, regular rhythm Respiratory/Chest: chest wall non-tender, lungs clear, normal breath sounds Abdomen: normal bowel sounds, non tender, soft, other - PEG Extremities: non-tender Neurologic: alert - RUE 5/5 strength. 0/5 strength to LUE and bilateral lower extremities Skin: normal pigmentation, warm/dry Vicki Moore NP Aug 17, 2017 13:36
--- NOTE | 2017-08-17 16:16 | General Progress Note ---
Assessment/Plan Assessment/Plan Dementia anxiety the pt lacks capacity to make decisions ativan prn Subjective Date patient seen: Aug 17, 2017 Neurologic/Psychiatric: Reports: anxiety, depressed, emotional problems Allergies: Coded Allergies: No Known Allergies (Unverified , 02/04/17) Objective Last 24 Hour Vital Signs Date Time Temp Pulse Resp B/P (MAP) Pulse Ox O2 Delivery O2 Flow Rate FiO2 08/17/17 13:34 97.8 08/17/17 12:35 97.8 08/17/17 09:10 97.8 73 13 131/69 100 Nasal Cannula 3 97.8 08/17/17 08:55 73 19 126/66 100 Nasal Cannula 3 08/17/17 08:45 72 13 126/66 100 Simple Mask 6 08/17/17 08:35 71 15 128/65 100 Simple Mask 6 08/17/17 08:30 71 14 124/64 100 Simple Mask 6 08/17/17 08:29 206.6 76 16 100 08/17/17 08:26 97.0 76 16 113/70 100 Simple Mask 6 97.0 08/17/17 04:00 97.5 74 20 112/65 96 Room Air 97.5 08/17/17 00:00 97.1 79 20 136/80 100 Room Air 97.1 08/16/17 20:35 73 138/68 08/16/17 20:00 98.2 95 18 125/79 100 Room Air 98.2 08/16/17 20:00 79 20 Room Air 21 08/16/17 18:13 98.2 08/16/17 18:11 69 113/62 08/16/17 18:00 69 113/62 Intake and Output 08/16/17 08/17/17 19:00 07:00 Intake Total 1515.000 ml 1320.000 ml Balance 1515.000 ml 1320.000 ml Free Water 150 ml 100 ml IV Total 1035.000 ml 945.000 ml Tube Feeding 330 ml 275 ml # Voids 2 # Bowel Movements 1 2 Laboratory Tests 08/17/17 05:50: White Blood Count 8.7, Red Blood Count 4.68, Hemoglobin 14.9, Hematocrit 44.0, Mean Corpuscular Volume 94, Mean Corpuscular Hemoglobin 31.9H, Mean Corpuscular Hemoglobin Concent 33.9, Red Cell Distribution Width 13.2, Platelet Count 244, Mean Platelet Volume 8.2, Neutrophils (%) (Auto) 74.3, Lymphocytes (%) (Auto) 18.5L, Monocytes (%) (Auto) 5.7, Eosinophils (%) (Auto) 0.9, Basophils (%) (Auto ) 0.6, Sodium Level 139, Potassium Level 3.7, Chloride Level 104, Carbon Dioxide Level 26, Anion Gap 9, Blood Urea Nitrogen 7, Creatinine 0.4L, Estimat Glomerular Filtration Rate , Glucose Level 101, Calcium Level 8.7 Height (Feet): 5 Height (Inches): 4.00 Weight (Pounds): 132 Kenadl Norris MD Aug 17, 2017 16:16
--- NOTE | 2017-08-17 17:30 | Operative Note - Dictated ---
DATE OF OPERATION: 08/17/2017 PREOPERATIVE DIAGNOSIS: Left neck mass. POSTOPERATIVE DIAGNOSIS: Left neck deep abscess. OPERATION PERFORMED: Incision and drainage of left neck abscess with sharp debridement of abscess cavity and biopsies. ATTENDING SURGEON: Akhil Jackson M.D. INJECTION MOLDING MACHINE OFFBEARER: None. ANESTHESIOLOGIST: Evelyn Choudhury M.D. ANESTHESIA: General WOODWORKING BELT SANDER plus local. SPECIMENS: Cultures of left neck abscess as well as biopsies of the surrounding tissue. COMPLICATIONS: None. CONDITION: Stable. ESTIMATED BLOOD LOSS: Minimal. IV FLUIDS: Please see anesthesia records. DRAINS: A 0.25 inch Nnamdi. IMPLANTS: None. WOUND CLASSIFICATION: Class 3. COUNTS: Sponge and needle count correct x2. INDICATIONS FOR PROCEDURE: This is a 76-year-old female, a senior living resident, who was identified to have enlarging left neck mass. CT scan was performed, which identified possible abscess versus necrotic tumor. Given these findings, surgery was indicated and recommended. Risks, benefits, and alternatives were discussed with the patient's family members who consented to surgery. OPERATIVE NOTE: The patient was taken to the operating room and placed on the operating table in supine position with bilateral arms tucked. All bony prominences were well padded. Preoperative time-out was taken identifying the patient, procedure, operative site, operative staff, and surgical staff. SCDs were placed. The patient was on scheduled IV antibiotics prior to entering the operating room. General anesthesia was induced. The patient was intubated. The left neck was prepped and draped in a standard surgical fashion. The area/mass was identified in the left neck just medial and inferior to the angle of the mandible around the area of the hyoid bone. The mass was hard and approximately 6 cm x 3 cm in length on palpation. At this time, over the apex of the mass, an incision was made using a #15 scalpel. Incision was carried down through the subcutaneous tissue to the platysma. Platysma was divided with electrocautery. Underneath the platysma at the level of the sternocleidomastoid muscle, just medial to it, there was a hard mass that was entered. Upon entering it, a significant amount of pus was evacuated. Some of this pus was sent for cultures. Once pus evacuated, the capsule of the abscess was opened. Sharp debridement was performed to excise the chronic capsule of the abscess cavity. Portions of this excision were sent as biopsies for evaluation to ensure no malignant process. Once this was completed, the area was irrigated with copious amounts of saline. Local anesthetic was infiltrated. Hemostasis was achieved. Following this, a Eunice drain was left in the wound cavity for drainage and the skin incision was closed using multiple 4-0 Monocryl and subcuticular interrupted sutures. The patient tolerated the procedure well. Dressings were placed. The patient was extubated and taken to postanesthetic care unit in stable condition Akhil Jackson M.D. DR: DALTON JOB#: [id number] CC:
[2017-08-18] VITALS: BP 125/59
[2017-08-18 04:00] VITALS: BP 132/64
[2017-08-18] MEDS: Vancomycin 750mg/NS 250ml 250 ML IVPB SCH ×2 (04:37→17:19)
[2017-08-18] MEDS: Ampicillin/Sulbactam Sod 3 GM in NS 110 ML IVPB SCH ×2 (05:26→11:39)
[2017-08-18] MEDS: NovoLOG Insulin Flexpen SUBQ SCH ×3 (05:30→17:59)
[2017-08-18 07:22] LABS: ANION GAP 6 mmol/L (5-15); BLOOD UREA NITROGEN 8 mg/dL (7-18); CALCIUM 8.4 MG/DL (8.5-10.1); CARBON DIOXIDE 27 MMOL/L (21-32); CHLORIDE 103 MMOL/L (98-107); CREATININE 0.3 MG/DL (0.55-1.30); POTASSIUM 3.8 MMOL/L (3.5-5.1); SODIUM 136 MMOL/L (136-145)
[2017-08-18 07:24] LABS: BASOPHILS % (AUTO) 0.5 % (0.0-2.0); EOSINOPHILS % (AUTO) 1.1 % (0.0-3.0); HEMATOCRIT 37.6 % (37.0-47.0); HEMOGLOBIN 12.9 G/DL (12.0-16.0); LYMPHOCYTES % (AUTO) 19.3 % (20.0-45.0); MEAN CORPUSCULAR VOLUME 94 FL (80-99); MONOCYTES % (AUTO) 6.2 % (1.0-10.0); NEUTROPHILS % (AUTO) 72.8 % (45.0-75.0); PLATELET COUNT 220 K/UL (150-450); RED BLOOD COUNT 4.02 M/UL (4.20-5.40); RED CELL DISTRIBUTION WIDTH 13.1 % (11.6-14.8); WHITE BLOOD COUNT 8.3 K/UL (4.8-10.8)
[2017-08-18 08:00] VITALS: BP 133/59
[2017-08-18] MEDS: Multivitamins W/Minerals 15 ML UDC GT SCH (08:16)
[2017-08-18] MEDS: Aspirin Baby 81mg GT SCH (08:16)
[2017-08-18] MEDS: Metoprolol 25mg tab GT SCH ×2 (08:17→21:02)
[2017-08-18] MEDS: Cyclobenzaprine 10mg Tab GT SCH ×3 (08:19→17:58)
[2017-08-18] MEDS: Nitroglycerin Patch 0.2mg/hr TDERMAL SCH (08:20)
[2017-08-18] MEDS: Vitamin D 1000 IU Tab GT SCH (08:20)
[2017-08-18] MEDS: Heparin 5000 units/ml inj SUBQ SCH ×2 (08:22→21:03)
[2017-08-18] MEDS: Docusate 100mg/10ml Liq GT SCH ×2 (08:28→17:57)
[2017-08-18] MEDS: Milk of Magnesia 30ml Ud GT SCH (08:29)
[2017-08-18] MEDS: Levemir Flexpen SUBQ SCH ×2 (09:03→21:03)
--- NOTE | 2017-08-18 11:25 | 48 Hour Post Anesthesia Eval ---
Post Anesthesia Evaluation Procedure: I&D and biopsy of left neck mass Date of Evaluation: Aug 18, 2017 Time of Evaluation: 08:00 Blood Pressure Systolic: 133 0: 59 Pulse Rate: 76 Respiratory Rate: 18 Temperature (Fahrenheit): 97.9 O2 Sat by Pulse Oximetry: 100 Airway: patent Nausea: No Vomiting: No If pain is > 6 Comment: 0 Mental Status/LOC: patient returned to baseline Post-Anesthesia Complications: none Follow-up care needed: N/A Karime Jeffers M.D. Aug 18, 2017 11:25
[2017-08-18 12:00] VITALS: BP 139/65
--- NOTE | 2017-08-18 12:30 | Infectious Diseases Prog Note ---
Assessment/Plan Assessment/Plan ASSESSMENT AND PLAN: 1. staph aureus neck abscess/cellulitis, s/p I/D - vancomycin, check final sensitivities - f/u on labs - d/w Vicki Moore NP 2. MRSA colonization and isolation. 3. Mild leukocytosis. 4. Dementia, altered mental status. 5. Hypertension. 6. Diabetes. 7. Hypernatremia. 8. Blood sugar and blood pressure treatment for diabetes and hypertension per primary. 9. Cerebrovascular accident. 10. Hemiplegia. 11. Weakness. 12. Arm rash. 13. Cerebral infarction. 14. Encephalopathy. 15. Dysphagia. 16. No known allergies. 17. Social history is negative. 18. Family history is noncontributory. 19. MAR was noted. 20. Case was discussed with RN. 21. Continue treatment per primary consultants. 22. Notes and records were reviewed. 23. Orders were noted and entered. Subjective Constitutional: Reports: fatigue, other - more responsive; Denies: fever HEENT: Denies: congestion Respiratory: Denies: shortness of breath Cardiovascular: Denies: chest pain Gastrointestinal/Abdominal: Denies: nausea, vomiting, diarrhea Genitourinary: Reports: other - no taylor Neurologic: Denies: headache Psychiatric: Denies: depression Skin: Denies: rash Hematologic: Denies: bleeding Musculoskeletal: Denies: pain Allergies: Coded Allergies: No Known Allergies (Unverified , 02/04/17) Objective Vital Signs Last 24 Hour Vital Signs Date Time Temp Pulse Resp B/P (MAP) Pulse Ox O2 Delivery O2 Flow Rate FiO2 08/18/17 11:25 208.2 76 18 100 08/18/17 08:20 139/66 08/18/17 08:19 71 139/66 08/18/17 08:17 71 139/66 08/18/17 08:00 97.7 76 18 133/59 100 Nasal Cannula 2.0 97.7 08/18/17 04:00 97.5 72 20 132/64 100 Nasal Cannula 3 97.5 08/18/17 00:00 98.5 78 18 125/59 100 Nasal Cannula 3 98.5 08/17/17 21:40 86 117/55 08/17/17 20:00 98.5 86 18 117/55 99 Nasal Cannula 3 98.5 08/17/17 18:25 97.8 08/17/17 18:25 82 132/70 08/17/17 16:24 97.8 08/17/17 16:00 98.4 82 18 132/70 100 Nasal Cannula 3 98.4 08/17/17 12:35 97.8 Height (Feet): 5 Height (Inches): 4.00 Weight (Pounds): 132 General Appearance: no acute distress HEENT: normocephalic, atraumatic, anicteric, mucous membranes moist, EOMI, no JVD, other - wound covered post surgery Respiratory/Chest: lungs clear, normal breath sounds, no respiratory distress, no accessory muscle use Cardiovascular: normal rate, regular rhythm, no gallop/murmur, no JVD Abdomen: normal bowel sounds, soft, non tender, no organomegaly, non distended Genitourinary: other - no taylor Extremities: no cyanosis Skin: no rash Neurologic/Psychiatric: power technician II-XII grossly normal, alert, oriented x 3, responsive Lymphatic: no neck adenopathy Musculoskeletal: no effusion Objective CT neck: IMPRESSION: enlarged left submandibular gland with peripherally enhancing cystic areas throughout and possibly adjacent to the gland, measuring up to 2.2 cm in diameter. There is superficial and deep soft tissue swelling with edema seen throughout the parapharyngeal fat down to the level of the hyoid bone. Infection/abscess versus necrotic mass. Chest x-ray - negative (report noted) Microbiology Date/Time Source Procedure Growth Status 08/17/17 08:05 Neck Gram Stain - Final Resulted 08/17/17 08:05 Aerobic Culture - Preliminary Staphylococcus Aureus Resulted 08/17/17 08:05 Neck Anaerobic Culture - Preliminary NO ANAEROBES ISOLATED Resulted Laboratory Tests Test 08/18/17 06:05 White Blood Count 8.3 K/UL (4.8-10.8) Red Blood Count 4.02 M/UL (4.20-5.40) L Hemoglobin 12.9 G/DL (12.0-16.0) Hematocrit 37.6 % (37.0-47.0) Mean Corpuscular Volume 94 FL (80-99) Mean Corpuscular Hemoglobin 32.0 PG (27.0-31.0) H Mean Corpuscular Hemoglobin Concent 34.2 G/DL (32.0-36.0) Red Cell Distribution Width 13.1 % (11.6-14.8) Platelet Count 220 K/UL (150-450) Mean Platelet Volume 8.4 FL (6.5-10.1) Neutrophils (%) (Auto) 72.8 % (45.0-75.0) Lymphocytes (%) (Auto) 19.3 % (20.0-45.0) L Monocytes (%) (Auto) 6.2 % (1.0-10.0) Eosinophils (%) (Auto) 1.1 % (0.0-3.0) Basophils (%) (Auto) 0.5 % (0.0-2.0) Sodium Level 136 MMOL/L (136-145) Potassium Level 3.8 MMOL/L (3.5-5.1) Chloride Level 103 MMOL/L (98-107) Carbon Dioxide Level 27 MMOL/L (21-32) Anion Gap 6 mmol/L (5-15) Blood Urea Nitrogen 8 mg/dL (7-18) Creatinine 0.3 MG/DL (0.55-1.30) L Estimat Glomerular Filtration Rate mL/min (>60) Glucose Level 194 MG/DL (74-106) H Calcium Level 8.4 MG/DL (8.5-10.1) L Current Medications Medications (Trade) Dose Ordered Sig/Wayne Route PRN Reason Start Time Stop Time Status Last Admin Dose Admin Acetaminophen (Tylenol) 650 mg Q6H PRN ORAL Mild Pain (Pain Scale 1-3) 08/17/17 09:00 09/10/17 22:44 Amlodipine Besylate (Norvasc) 5 mg BID GT 08/12/17 09:00 09/11/17 08:59 08/18/17 08:19 Ampicillin Sodium/ Sulbactam Sodium 3 gm/Sodium Chloride 110 ml @ 220 mls/hr Q6HR IVPB 08/14/17 13:00 08/21/17 12:59 08/18/17 11:39 Aspirin (ASA) 162 mg DAILY GT 08/12/17 09:00 09/11/17 08:59 08/18/17 08:16 Bisacodyl (Dulcolax) 10 mg DAILY PRN RECTAL Constipation 08/11/17 23:00 09/10/17 22:59 Clotrimazole (Lotrimin) 1 applic THREE TIMES A DAY TOPIC 08/16/17 14:00 09/15/17 13:59 08/18/17 08:23 Cyclobenzaprine HCl (Flexeril) 5 mg THREE TIMES A DAY GT 08/12/17 09:00 09/11/17 08:59 08/18/17 08:19 Dextrose (Dextrose 50%) 25 ml STAT PRN IV Hypoglycemia 08/12/17 06:45 09/11/17 06:44 Dextrose (Dextrose 50%) 50 ml STAT PRN IV Hypoglycemia 08/12/17 06:45 09/11/17 06:44 Docusate Sodium (Colace) 100 mg TWICE A DAY GT 08/14/17 18:00 09/13/17 17:59 08/17/17 18:25 Heparin Sodium (Porcine) (Heparin 5000 units/ml) 5,000 units EVERY 12 HOURS SUBQ 08/11/17 23:21 09/10/17 23:20 08/18/17 08:22 Insulin Aspart (NovoLOG) Q6HR SUBQ 08/14/17 18:00 09/11/17 11:29 08/18/17 05:30 Insulin Detemir (Levemir) 13 units Q12HR SUBQ 08/15/17 21:00 09/12/17 20:59 08/18/17 09:03 Lorazepam (Ativan) 1 mg Q6H PRN ORAL For Anxiety 08/15/17 16:00 08/22/17 15:59 Magnesium Hydroxide (Mom) 30 ml DAILY GT 08/12/17 09:00 09/11/17 08:59 08/16/17 09:47 Metoprolol Tartrate (Lopressor) 12.5 mg Q12HR GT 08/11/17 23:22 09/10/17 23:21 08/18/17 08:17 Morphine Sulfate (Morphine Sulfate) 2 mg Q4H PRN IVP pain 4-10 08/17/17 08:45 08/24/17 08:44 Multivitamins (Multivitamins W/ Minerals 15ml Liquid) 15 ml DAILY GT 08/12/17 10:30 09/11/17 10:29 08/18/17 08:16 Nitroglycerin (Ntg) 1 patch Q24H TDERMAL 08/12/17 09:00 09/11/17 08:59 08/18/17 08:20 Ondansetron HCl (Zofran ODT) 4 mg Q6H PRN GT Nausea & Vomiting 08/11/17 23:15 09/10/17 23:14 Sodium Chloride 1,000 ml @ 75 mls/hr [id number] IV 08/12/17 17:30 09/11/17 17:29 08/18/17 05:26 Vancomycin HCl (Vanco rx to dose) 1 ea DAILY PRN MISC Per rx protocol 08/11/17 22:45 09/10/17 22:44 Vancomycin/Sodium Chloride 250 ml @ 166.667 mls/hr Q12HR@0500,1700 IVPB 08/16/17 17:00 08/21/17 16:59 08/18/17 04:37 Vitamin D (Vitamin D) 5,000 intlu DAILY GT 08/12/17 09:00 09/11/17 08:59 08/18/17 08:20 Milton Valladares MD Aug 18, 2017 12:30
--- NOTE | 2017-08-18 13:22 | General Progress Note ---
Assessment/Plan Assessment/Plan Dementia anxiety the pt lacks capacity to make decisions ativan prn Subjective Date patient seen: Aug 18, 2017 Neurologic/Psychiatric: Reports: anxiety, depressed, emotional problems Allergies: Coded Allergies: No Known Allergies (Unverified , 02/04/17) Subjective The pt is French speaking confused and gets anxious. unable to be engaged Objective Last 24 Hour Vital Signs Date Time Temp Pulse Resp B/P (MAP) Pulse Ox O2 Delivery O2 Flow Rate FiO2 08/18/17 11:25 208.2 76 18 100 08/18/17 08:20 139/66 08/18/17 08:19 71 139/66 08/18/17 08:17 71 139/66 08/18/17 08:00 97.7 76 18 133/59 100 Nasal Cannula 2.0 97.7 08/18/17 04:00 97.5 72 20 132/64 100 Nasal Cannula 3 97.5 08/18/17 00:00 98.5 78 18 125/59 100 Nasal Cannula 3 98.5 08/17/17 21:40 86 117/55 08/17/17 20:00 98.5 86 18 117/55 99 Nasal Cannula 3 98.5 08/17/17 18:25 97.8 08/17/17 18:25 82 132/70 08/17/17 16:24 97.8 08/17/17 16:00 98.4 82 18 132/70 100 Nasal Cannula 3 98.4 Intake and Output 08/17/17 08/18/17 19:00 07:00 Intake Total 1450 ml 1780.000 ml Output Total 20 ml Balance 1430 ml 1780.000 ml Free Water 200 ml 200 ml IV Total 700 ml 920.000 ml Tube Feeding 550 ml 660 ml Estimated Blood Loss 20 ml # Voids 3 1 # Bowel Movements 1 1 Laboratory Tests 08/18/17 06:05: White Blood Count 8.3, Red Blood Count 4.02L, Hemoglobin 12.9, Hematocrit 37.6, Mean Corpuscular Volume 94, Mean Corpuscular Hemoglobin 32.0H, Mean Corpuscular Hemoglobin Concent 34.2, Red Cell Distribution Width 13.1, Platelet Count 220, Mean Platelet Volume 8.4, Neutrophils (%) (Auto) 72.8, Lymphocytes (%) (Auto) 19.3L, Monocytes (%) (Auto) 6.2, Eosinophils (%) (Auto) 1.1, Basophils (%) (Auto ) 0.5, Sodium Level 136, Potassium Level 3.8, Chloride Level 103, Carbon Dioxide Level 27, Anion Gap 6, Blood Urea Nitrogen 8, Creatinine 0.3L, Estimat Glomerular Filtration Rate , Glucose Level 194H, Calcium Level 8.4L Height (Feet): 5 Height (Inches): 4.00 Weight (Pounds): 132 General Appearance: no apparent distress, alert, confused Kendal Norris MD Aug 18, 2017 13:22
--- NOTE | 2017-08-18 13:51 | General Surgery Progress Note ---
General Surgery-Progress Note Subjective Procedure Performed Incision and drainage of left neck mass with sharp debridement of abscess cavity and biopsy Additional Comments doing well. no acute events. dressings changed. cultures reviewed. Objective Last 24 Hour Vital Signs Date Time Temp Pulse Resp B/P (MAP) Pulse Ox O2 Delivery O2 Flow Rate FiO2 08/18/17 11:25 208.2 76 18 100 08/18/17 08:20 139/66 08/18/17 08:19 71 139/66 08/18/17 08:17 71 139/66 08/18/17 08:00 97.7 76 18 133/59 100 Nasal Cannula 2.0 97.7 08/18/17 04:00 97.5 72 20 132/64 100 Nasal Cannula 3 97.5 08/18/17 00:00 98.5 78 18 125/59 100 Nasal Cannula 3 98.5 08/17/17 21:40 86 117/55 08/17/17 20:00 98.5 86 18 117/55 99 Nasal Cannula 3 98.5 08/17/17 18:25 97.8 08/17/17 18:25 82 132/70 08/17/17 16:24 97.8 08/17/17 16:00 98.4 82 18 132/70 100 Nasal Cannula 3 98.4 I&O Intake and Output 08/17/17 08/18/17 19:00 07:00 Intake Total 1450 ml 1780.000 ml Output Total 20 ml Balance 1430 ml 1780.000 ml Free Water 200 ml 200 ml IV Total 700 ml 920.000 ml Tube Feeding 550 ml 660 ml Estimated Blood Loss 20 ml # Voids 3 1 # Bowel Movements 1 1 Dressing: saturated Wound: clean Drains: saida Cardiovascular: RSR Respiratory: clear Abdomen: soft, flat, non-tender Extremities: no cyanosis Laboratory Tests Test 08/18/17 06:05 White Blood Count 8.3 K/UL (4.8-10.8) Red Blood Count 4.02 M/UL (4.20-5.40) L Hemoglobin 12.9 G/DL (12.0-16.0) Hematocrit 37.6 % (37.0-47.0) Mean Corpuscular Volume 94 FL (80-99) Mean Corpuscular Hemoglobin 32.0 PG (27.0-31.0) H Mean Corpuscular Hemoglobin Concent 34.2 G/DL (32.0-36.0) Red Cell Distribution Width 13.1 % (11.6-14.8) Platelet Count 220 K/UL (150-450) Mean Platelet Volume 8.4 FL (6.5-10.1) Neutrophils (%) (Auto) 72.8 % (45.0-75.0) Lymphocytes (%) (Auto) 19.3 % (20.0-45.0) L Monocytes (%) (Auto) 6.2 % (1.0-10.0) Eosinophils (%) (Auto) 1.1 % (0.0-3.0) Basophils (%) (Auto) 0.5 % (0.0-2.0) Sodium Level 136 MMOL/L (136-145) Potassium Level 3.8 MMOL/L (3.5-5.1) Chloride Level 103 MMOL/L (98-107) Carbon Dioxide Level 27 MMOL/L (21-32) Anion Gap 6 mmol/L (5-15) Blood Urea Nitrogen 8 mg/dL (7-18) Creatinine 0.3 MG/DL (0.55-1.30) L Estimat Glomerular Filtration Rate mL/min (>60) Glucose Level 194 MG/DL (74-106) H Calcium Level 8.4 MG/DL (8.5-10.1) L Assessment Post-op Diagnosis left neck deep abscess Plan Problems: (1) Mass in neck Assessment & Plan: 76F with left neck mass. noted on exam and seen on CT. possible infectious vs necrotic tumor. s/p exploration. identified a left neck abscess s/p drainage. saida drain in place. doing well on IV abx -Abx as per ID -dressings daily and PRN saturation -will remove saida drain soon Akhil Jackson Aug 18, 2017 13:51
--- NOTE | 2017-08-18 14:16 | Diagnostic Imaging Report ---
APPROVED REPORT CPT Code: 23460 Present Symptoms Comments: BILATERAL LEGS PAIN. BILATERAL: Imaging reveals a patent deep venous system bilaterally. There is no evidence of thrombus within the femoral, popliteal or tibial segments. The greater saphenous veins are also within normal limits. Doppler indicates normal spontaneous flow within these segments
--- NOTE | 2017-08-18 14:16 | Diagnostic Imaging Report ---
APPROVED REPORT CPT Code: 34690 Present Symptoms Comments: BILATERAL ARMS SWELLING. BILATERAL UPPER EXTREMITY (Deep venous system): Imaging reveals patency of the left internal jugular, subclavian, axillary and brachial veins. Doppler indicates normal spontaneous flow within these venous segments, bilaterally. The cephalic vein was not visualized bilaterally due to patient's body habitus.
[2017-08-18 16:00] VITALS: BP 115/54
--- NOTE | 2017-08-18 16:17 | General Progress Note ---
Assessment/Plan Problem List: (1) Abscess ICD Codes: L02.91 - Cutaneous abscess, unspecified SNOMED: 812434514 (2) Hyperglycemia due to type 2 diabetes mellitus ICD Codes: E11.65 - Type 2 diabetes mellitus with hyperglycemia SNOMED: 61519300, 688920825729232 (3) HTN (hypertension) ICD Codes: I10 - Essential (primary) hypertension SNOMED: 18328570 (4) H/O: CVA (cerebrovascular accident) ICD Codes: Z86.73 - Personal history of transient ischemic attack (TIA), and cerebral infarction without residual deficits SNOMED: 141234288 (5) Sepsis ICD Codes: A41.9 - Sepsis, unspecified organism SNOMED: 77312312 (6) Toxic metabolic encephalopathy ICD Codes: G92 - Toxic encephalopathy SNOMED: 360431023 (7) Hypernatremia ICD Codes: E87.0 - Hyperosmolality and hypernatremia SNOMED: 40374100 (8) Mass in neck ICD Codes: R22.1 - Localized swelling, mass and lump, neck SNOMED: 845730382 (9) Rash ICD Codes: R21 - Rash and other nonspecific skin eruption SNOMED: 452724455 (10) Status post incision and drainage ICD Codes: Z98.890 - Other specified postprocedural states SNOMED: 919999431, 069826300 Status: stable, progressing Assessment/Plan - General surgery consulted, appreciate rec's - ENT consulted -- not available - ID consulted appreciate rec's - s/p I&D 08/17 with no periop or postop complications - f/u biopsy and culture results -- growing staph aureus - Continue IV vancomycin. unasyn dc'ed - IVF - neck CT showing chronic abscess vs. necrotic tumor - continue tube feeds - increase levemir to 13 units q12hr + NISS -- blood sugars better controlled in the 150s - A1c 7.7 - clotrimazole topical to fungal rash of left armpit -- improving - check venous duplex of bilateral upper and lower extremities -- pending - pain control and supportive care DVT Prophylaxis: SCD, HSQ Code Status: Full Hospital Classification Declaration: Based on this initial evaluation, and depending on the patient's clinical course, I anticipate that this patient will require hospitalization for 2-3 days for abscess, sepsis, and close respiratory/ hemodynamic monitoring. Disposition: Once the patient is stable to leave the hospital, I anticipate the patient will likely be discharged to the following environment: SNF, [facility] I spent 34 minutes on this patient's case, and 20 minutes were dedicated to counseling and/or care coordination. Discussed with patient/family, nursing staff, SW/CM, ID, general surgery regarding clinical status, treatment course, and disposition planning. Time of note may not reflect time of encounter. Subjective Date patient seen: Aug 18, 2017 Time patient seen: 16:15 Allergies: Coded Allergies: No Known Allergies (Unverified , 02/04/17) Subjective - s/p I&D and biopsy to left submandibular area with no periop or postop complications, POD#2 - rash to left armpit improved on clotrimazole - wound culture showing staph aureus - pain well controlled - appears in no NAD. AF, HDS Objective Last 24 Hour Vital Signs Date Time Temp Pulse Resp B/P (MAP) Pulse Ox O2 Delivery O2 Flow Rate FiO2 08/18/17 16:00 98.4 80 19 115/54 (74) 98 98.4 08/18/17 12:00 98.4 67 18 139/65 (89) 100 98.4 08/18/17 11:25 208.2 76 18 100 08/18/17 08:20 139/66 08/18/17 08:19 71 139/66 08/18/17 08:17 71 139/66 08/18/17 08:00 97.7 76 18 133/59 100 Nasal Cannula 2.0 97.7 08/18/17 04:00 97.5 72 20 132/64 100 Nasal Cannula 3 97.5 08/18/17 00:00 98.5 78 18 125/59 100 Nasal Cannula 3 98.5 08/17/17 21:40 86 117/55 08/17/17 20:00 98.5 86 18 117/55 99 Nasal Cannula 3 98.5 08/17/17 18:25 97.8 08/17/17 18:25 82 132/70 08/17/17 16:24 97.8 Intake and Output 08/17/17 08/18/17 19:00 07:00 Intake Total 1450 ml 1780.000 ml Output Total 20 ml Balance 1430 ml 1780.000 ml Free Water 200 ml 200 ml IV Total 700 ml 920.000 ml Tube Feeding 550 ml 660 ml Estimated Blood Loss 20 ml # Voids 3 1 # Bowel Movements 1 1 Laboratory Tests 08/18/17 06:05: White Blood Count 8.3, Red Blood Count 4.02L, Hemoglobin 12.9, Hematocrit 37.6, Mean Corpuscular Volume 94, Mean Corpuscular Hemoglobin 32.0H, Mean Corpuscular Hemoglobin Concent 34.2, Red Cell Distribution Width 13.1, Platelet Count 220, Mean Platelet Volume 8.4, Neutrophils (%) (Auto) 72.8, Lymphocytes (%) (Auto) 19.3L, Monocytes (%) (Auto) 6.2, Eosinophils (%) (Auto) 1.1, Basophils (%) (Auto ) 0.5, Sodium Level 136, Potassium Level 3.8, Chloride Level 103, Carbon Dioxide Level 27, Anion Gap 6, Blood Urea Nitrogen 8, Creatinine 0.3L, Estimat Glomerular Filtration Rate , Glucose Level 194H, Calcium Level 8.4L Height (Feet): 5 Height (Inches): 4.00 Weight (Pounds): 132 General Appearance: no apparent distress, lethargic EENT: PERRL/EOMI, normal ENT inspection Neck: other - left submandibular area with sutures c/d/i and with saida drain Cardiovascular: normal peripheral pulses, normal rate, regular rhythm Respiratory/Chest: chest wall non-tender, lungs clear, normal breath sounds Abdomen: normal bowel sounds, non tender, soft, other - PEG Neurologic: alert, other - RUE 5/5 strength. LUE 0/5 strength, BLE 5/5 strength Skin: normal pigmentation, warm/dry Vicki Moore NP Aug 18, 2017 16:17
[2017-08-18 20:00] VITALS: BP 123/57
[2017-08-19] VITALS: BP 111/52
[2017-08-19] MEDS: NovoLOG Insulin Flexpen SUBQ SCH ×4 (00:24→17:25)
[2017-08-19 04:00] VITALS: BP 144/63
[2017-08-19 04:50] LABS: BASOPHILS % (AUTO) 0.5 % (0.0-2.0); EOSINOPHILS % (AUTO) 2.3 % (0.0-3.0); HEMATOCRIT 37.4 % (37.0-47.0); HEMOGLOBIN 12.5 G/DL (12.0-16.0); LYMPHOCYTES % (AUTO) 27.2 % (20.0-45.0); MEAN CORPUSCULAR VOLUME 95 FL (80-99); MONOCYTES % (AUTO) 7.7 % (1.0-10.0); NEUTROPHILS % (AUTO) 62.2 % (45.0-75.0); PLATELET COUNT 239 K/UL (150-450); RED BLOOD COUNT 3.95 M/UL (4.20-5.40); RED CELL DISTRIBUTION WIDTH 13.5 % (11.6-14.8); WHITE BLOOD COUNT 6.8 K/UL (4.8-10.8)
[2017-08-19 05:02] LABS: ANION GAP 4 mmol/L (5-15); BLOOD UREA NITROGEN 10 mg/dL (7-18); CALCIUM 8.9 MG/DL (8.5-10.1); CARBON DIOXIDE 29 MMOL/L (21-32); CHLORIDE 107 MMOL/L (98-107); CREATININE 0.4 MG/DL (0.55-1.30); POTASSIUM 4.1 MMOL/L (3.5-5.1); SODIUM 140 MMOL/L (136-145)
[2017-08-19] MEDS: Vancomycin 750mg/NS 250ml 250 ML IVPB SCH (05:33)
[2017-08-19 08:00] VITALS: BP 142/69
[2017-08-19] MEDS: Cyclobenzaprine 10mg Tab GT SCH ×3 (08:45→17:23)
[2017-08-19] MEDS: Milk of Magnesia 30ml Ud GT SCH (08:46)
[2017-08-19] MEDS: Multivitamins W/Minerals 15 ML UDC GT SCH (08:46)
[2017-08-19] MEDS: Docusate 100mg/10ml Liq GT SCH ×2 (08:46→17:22)
[2017-08-19] MEDS: Aspirin Baby 81mg GT SCH (08:48)
[2017-08-19] MEDS: Vitamin D 1000 IU Tab GT SCH (08:48)
[2017-08-19] MEDS: Metoprolol 25mg tab GT SCH ×2 (08:51→21:35)
[2017-08-19] MEDS: Nitroglycerin Patch 0.2mg/hr TDERMAL SCH (08:52)
[2017-08-19] MEDS ORDERED: 1/2 NS 1000ml IV ONE (08:55)
[2017-08-19] MEDS ORDERED: Tubing IV Secondary IV ONE (08:55)
[2017-08-19] MEDS: Heparin 5000 units/ml inj SUBQ SCH ×2 (08:55→21:36)
[2017-08-19] MEDS: Levemir Flexpen SUBQ SCH ×2 (08:56→21:37)
[2017-08-19 12:00] VITALS: BP 139/72
[2017-08-19 16:00] VITALS: BP 110/60
[2017-08-19] MEDS: Vancomycin 1gm/D5W 275ml IVPB SCH ×2 (17:24)
--- NOTE | 2017-08-19 18:42 | General Surgery Progress Note ---
General Surgery-Progress Note Subjective Procedure Performed Incision and drainage of left neck mass with sharp debridement of abscess cavity and biopsy Symptoms: improved Additional Comments doing well. no acute events. dressings changed. Objective Last 24 Hour Vital Signs Date Time Temp Pulse Resp B/P (MAP) Pulse Ox O2 Delivery O2 Flow Rate FiO2 08/19/17 17:23 98.0 08/19/17 17:23 78 119/60 08/19/17 16:00 98.0 78 18 110/60 (77) 100 98.0 08/19/17 13:14 98.0 08/19/17 12:15 98.0 08/19/17 12:00 98.0 82 20 139/72 (94) 98 98.0 08/19/17 09:00 Nasal Cannula 2.0 08/19/17 08:52 142/69 08/19/17 08:51 81 142/69 08/19/17 08:51 81 142/69 08/19/17 08:45 98.0 08/19/17 08:00 97.9 81 18 142/69 (93) 100 97.9 08/19/17 04:00 98.0 75 20 144/63 (90) 100 98.0 08/19/17 00:00 98.7 60 20 111/52 (71) 98 98.7 08/18/17 21:02 77 123/57 08/18/17 21:00 Nasal Cannula 2.0 08/18/17 20:00 98.4 77 20 123/57 (79) 100 98.4 I&O Intake and Output 08/18/17 08/19/17 19:00 07:00 Intake Total 1295 ml 1615 ml Output Total 300 ml 1000 ml Balance 995 ml 615 ml Free Water 200 ml 260 ml IV Total 710 ml 750 ml Tube Feeding 385 ml 605 ml Output Urine Total 300 ml 1000 ml Dressing: dry, saturated Wound: clean Drains: saida Cardiovascular: RSR Respiratory: clear Abdomen: non-tender, present bowel sounds Extremities: no cyanosis Laboratory Tests Test 08/19/17 04:39 White Blood Count 6.8 K/UL (4.8-10.8) Red Blood Count 3.95 M/UL (4.20-5.40) L Hemoglobin 12.5 G/DL (12.0-16.0) Hematocrit 37.4 % (37.0-47.0) Mean Corpuscular Volume 95 FL (80-99) Mean Corpuscular Hemoglobin 31.5 PG (27.0-31.0) H Mean Corpuscular Hemoglobin Concent 33.4 G/DL (32.0-36.0) Red Cell Distribution Width 13.5 % (11.6-14.8) Platelet Count 239 K/UL (150-450) Mean Platelet Volume 8.3 FL (6.5-10.1) Neutrophils (%) (Auto) 62.2 % (45.0-75.0) Lymphocytes (%) (Auto) 27.2 % (20.0-45.0) Monocytes (%) (Auto) 7.7 % (1.0-10.0) Eosinophils (%) (Auto) 2.3 % (0.0-3.0) Basophils (%) (Auto) 0.5 % (0.0-2.0) Sodium Level 140 MMOL/L (136-145) Potassium Level 4.1 MMOL/L (3.5-5.1) Chloride Level 107 MMOL/L (98-107) Carbon Dioxide Level 29 MMOL/L (21-32) Anion Gap 4 mmol/L (5-15) L Blood Urea Nitrogen 10 mg/dL (7-18) Creatinine 0.4 MG/DL (0.55-1.30) L Estimat Glomerular Filtration Rate mL/min (>60) Glucose Level 155 MG/DL (74-106) H Calcium Level 8.9 MG/DL (8.5-10.1) Vancomycin Level Trough 10.9 ug/mL (5.0-12.0) Assessment Post-op Diagnosis left neck deep abscess Plan Problems: (1) Mass in neck Assessment & Plan: 76F with left neck mass. noted on exam and seen on CT. possible infectious vs necrotic tumor. s/p exploration. identified a left neck abscess s/p drainage. saida drain in place. doing well on IV abx saida drain removed at bedside today -Abx as per ID -dressings daily and PRN saturation Akhil Jackson Aug 19, 2017 18:42
[2017-08-19 20:00] VITALS: BP 115/55
--- NOTE | 2017-08-19 21:50 | General Progress Note ---
Assessment/Plan Problem List: (1) Abscess ICD Codes: L02.91 - Cutaneous abscess, unspecified SNOMED: 750092542 (2) Hyperglycemia due to type 2 diabetes mellitus ICD Codes: E11.65 - Type 2 diabetes mellitus with hyperglycemia SNOMED: 24634535, 397443616597486 (3) HTN (hypertension) ICD Codes: I10 - Essential (primary) hypertension SNOMED: 73669068 (4) H/O: CVA (cerebrovascular accident) ICD Codes: Z86.73 - Personal history of transient ischemic attack (TIA), and cerebral infarction without residual deficits SNOMED: 992560854 (5) Sepsis ICD Codes: A41.9 - Sepsis, unspecified organism SNOMED: 04962373 (6) Toxic metabolic encephalopathy ICD Codes: G92 - Toxic encephalopathy SNOMED: 064655977 (7) Hypernatremia ICD Codes: E87.0 - Hyperosmolality and hypernatremia SNOMED: 39326347 (8) Mass in neck ICD Codes: R22.1 - Localized swelling, mass and lump, neck SNOMED: 503766916 (9) Rash ICD Codes: R21 - Rash and other nonspecific skin eruption SNOMED: 831110375 (10) Status post incision and drainage ICD Codes: Z98.890 - Other specified postprocedural states SNOMED: 993311936, 651521183 (11) MRSA infection ICD Codes: A49.02 - Methicillin resistant Staphylococcus aureus infection, unspecified site SNOMED: 896664836 Status: stable, progressing Assessment/Plan - General surgery consulted, appreciate rec's - ENT consulted -- not available - ID consulted appreciate rec's - s/p I&D 08/17 with no periop or postop complications - f/u biopsy and culture results -- growing MRSA - Continue IV vancomycin. unasyn dc'ed - IVF - neck CT showing chronic abscess vs. necrotic tumor - continue tube feeds - increase levemir to 13 units q12hr + NISS -- blood sugars better controlled in the 150s - A1c 7.7 - clotrimazole topical to fungal rash of left armpit -- improving - check venous duplex of bilateral upper and lower extremities -- pending - pain control and supportive care DC planning DVT Prophylaxis: SCD, HSQ Code Status: Full Hospital Classification Declaration: Based on this initial evaluation, and depending on the patient's clinical course, I anticipate that this patient will require hospitalization for 2-3 days for abscess, sepsis, and close respiratory/ hemodynamic monitoring. Disposition: Once the patient is stable to leave the hospital, I anticipate the patient will likely be discharged to the following environment: SNF, [facility] I spent 34 minutes on this patient's case, and 20 minutes were dedicated to counseling and/or care coordination. Discussed with patient/family, nursing staff, SW/CM, ID, general surgery regarding clinical status, treatment course, and disposition planning. Time of note may not reflect time of encounter. Subjective Date patient seen: Aug 19, 2017 Time patient seen: 21:50 Allergies: Coded Allergies: No Known Allergies (Unverified , 02/04/17) Subjective - s/p I&D and biopsy to left submandibular area with no periop or postop complications, POD#3 - wound culture growing MRSA - pain well controlled - appears in no NAD. AF, HDS Objective Last 24 Hour Vital Signs Date Time Temp Pulse Resp B/P (MAP) Pulse Ox O2 Delivery O2 Flow Rate FiO2 08/19/17 21:35 76 115/55 08/19/17 18:22 98.0 08/19/17 17:23 98.0 08/19/17 17:23 78 119/60 08/19/17 16:00 98.0 78 18 110/60 (77) 100 98.0 08/19/17 12:15 98.0 08/19/17 12:00 98.0 82 20 139/72 (94) 98 98.0 08/19/17 09:00 Nasal Cannula 2.0 08/19/17 08:52 142/69 08/19/17 08:51 81 142/69 08/19/17 08:51 81 142/69 08/19/17 08:45 98.0 08/19/17 08:00 97.9 81 18 142/69 (93) 100 97.9 08/19/17 04:00 98.0 75 20 144/63 (90) 100 98.0 08/19/17 00:00 98.7 60 20 111/52 (71) 98 98.7 Intake and Output 08/18/17 08/19/17 19:00 07:00 Intake Total 1295 ml 1615 ml Output Total 300 ml 1000 ml Balance 995 ml 615 ml Free Water 200 ml 260 ml IV Total 710 ml 750 ml Tube Feeding 385 ml 605 ml Output Urine Total 300 ml 1000 ml Laboratory Tests 08/19/17 04:39: White Blood Count 6.8, Red Blood Count 3.95L, Hemoglobin 12.5, Hematocrit 37.4, Mean Corpuscular Volume 95, Mean Corpuscular Hemoglobin 31.5H, Mean Corpuscular Hemoglobin Concent 33.4, Red Cell Distribution Width 13.5, Platelet Count 239, Mean Platelet Volume 8.3, Neutrophils (%) (Auto) 62.2, Lymphocytes (%) (Auto) 27.2, Monocytes (%) (Auto) 7.7, Eosinophils (%) (Auto) 2.3, Basophils (%) (Auto ) 0.5, Sodium Level 140, Potassium Level 4.1, Chloride Level 107, Carbon Dioxide Level 29, Anion Gap 4L, Blood Urea Nitrogen 10, Creatinine 0.4L, Estimat Glomerular Filtration Rate , Glucose Level 155H, Calcium Level 8.9, Vancomycin Level Trough 10.9 Height (Feet): 5 Height (Inches): 4.00 Weight (Pounds): 132 General Appearance: alert, mild distress EENT: PERRL/EOMI, other - left submandibular wrapped with saida drain and sutures c/d/i Cardiovascular: normal peripheral pulses, normal rate, regular rhythm Respiratory/Chest: chest wall non-tender, lungs clear, normal breath sounds Abdomen: normal bowel sounds, non tender, soft, other - PEG Neurologic: alert - RUE 5/5 strength. LUE and bilateral lower extremities 0/5 strength Skin: normal pigmentation, warm/dry Vicki Moore NP Aug 19, 2017 21:50
--- NOTE | 2017-08-19 23:19 | General Progress Note ---
Assessment/Plan Assessment/Plan Dementia anxiety the pt lacks capacity to make decisions ativan prn Subjective Date patient seen: Aug 19, 2017 Neurologic/Psychiatric: Reports: anxiety, depressed, emotional problems Allergies: Coded Allergies: No Known Allergies (Unverified , 02/04/17) Subjective The pt is [place] speaking confused and gets anxious. unable to be engaged Objective Last 24 Hour Vital Signs Date Time Temp Pulse Resp B/P (MAP) Pulse Ox O2 Delivery O2 Flow Rate FiO2 08/19/17 21:35 76 115/55 08/19/17 21:00 Nasal Cannula 2.0 08/19/17 20:00 98.0 76 20 115/55 (75) 99 98.0 08/19/17 18:22 98.0 08/19/17 17:23 98.0 08/19/17 17:23 78 119/60 08/19/17 16:00 98.0 78 18 110/60 (77) 100 98.0 08/19/17 12:15 98.0 08/19/17 12:00 98.0 82 20 139/72 (94) 98 98.0 08/19/17 09:00 Nasal Cannula 2.0 08/19/17 08:52 142/69 08/19/17 08:51 81 142/69 08/19/17 08:51 81 142/69 08/19/17 08:45 98.0 08/19/17 08:00 97.9 81 18 142/69 (93) 100 97.9 08/19/17 04:00 98.0 75 20 144/63 (90) 100 98.0 08/19/17 00:00 98.7 60 20 111/52 (71) 98 98.7 Intake and Output 08/18/17 08/19/17 19:00 07:00 Intake Total 1295 ml 1615 ml Output Total 300 ml 1000 ml Balance 995 ml 615 ml Free Water 200 ml 260 ml IV Total 710 ml 750 ml Tube Feeding 385 ml 605 ml Output Urine Total 300 ml 1000 ml Laboratory Tests 08/19/17 04:39: White Blood Count 6.8, Red Blood Count 3.95L, Hemoglobin 12.5, Hematocrit 37.4, Mean Corpuscular Volume 95, Mean Corpuscular Hemoglobin 31.5H, Mean Corpuscular Hemoglobin Concent 33.4, Red Cell Distribution Width 13.5, Platelet Count 239, Mean Platelet Volume 8.3, Neutrophils (%) (Auto) 62.2, Lymphocytes (%) (Auto) 27.2, Monocytes (%) (Auto) 7.7, Eosinophils (%) (Auto) 2.3, Basophils (%) (Auto ) 0.5, Sodium Level 140, Potassium Level 4.1, Chloride Level 107, Carbon Dioxide Level 29, Anion Gap 4L, Blood Urea Nitrogen 10, Creatinine 0.4L, Estimat Glomerular Filtration Rate , Glucose Level 155H, Calcium Level 8.9, Vancomycin Level Trough 10.9 Height (Feet): 5 Height (Inches): 4.00 Weight (Pounds): 132 Kendal Norris MD Aug 19, 2017 23:19
[2017-08-20] VITALS: BP 127/68
[2017-08-20] MEDS: NovoLOG Insulin Flexpen SUBQ SCH ×4 (00:33→17:19)
[2017-08-20 04:00] VITALS: BP 116/61
[2017-08-20] MEDS: Vancomycin 1gm/D5W 275ml IVPB SCH ×4 (05:11→17:15)
[2017-08-20 08:00] VITALS: BP 117/63
[2017-08-20] MEDS: Docusate 100mg/10ml Liq GT SCH ×2 (08:25→17:26)
[2017-08-20] MEDS: Aspirin Baby 81mg GT SCH (08:26)
[2017-08-20] MEDS: Milk of Magnesia 30ml Ud GT SCH (08:26)
[2017-08-20] MEDS: Vitamin D 1000 IU Tab GT SCH (08:26)
[2017-08-20] MEDS: Nitroglycerin Patch 0.2mg/hr TDERMAL SCH (08:28)
[2017-08-20] MEDS: Multivitamins W/Minerals 15 ML UDC GT SCH (08:28)
[2017-08-20] MEDS: Metoprolol 25mg tab GT SCH ×2 (08:30→21:25)
[2017-08-20] MEDS: Cyclobenzaprine 10mg Tab GT SCH ×3 (08:30→17:15)
[2017-08-20] MEDS: Heparin 5000 units/ml inj SUBQ SCH ×2 (08:36→21:27)
[2017-08-20] MEDS: Levemir Flexpen SUBQ SCH ×2 (08:37→21:28)
[2017-08-20 11:43] LABS: BASOPHILS % (AUTO) 0.7 % (0.0-2.0); EOSINOPHILS % (AUTO) 1.6 % (0.0-3.0); LYMPHOCYTES % (AUTO) 26.2 % (20.0-45.0); MEAN CORPUSCULAR VOLUME 94 FL (80-99); MONOCYTES % (AUTO) 7.7 % (1.0-10.0); NEUTROPHILS % (AUTO) 63.7 % (45.0-75.0); PLATELET COUNT 237 K/UL (150-450); RED BLOOD COUNT 4.45 M/UL (4.20-5.40); RED CELL DISTRIBUTION WIDTH 13.1 % (11.6-14.8); WHITE BLOOD COUNT 7.7 K/UL (4.8-10.8)
[2017-08-20 11:55] LABS: ANION GAP 0 mmol/L (5-15); BLOOD UREA NITROGEN 10 mg/dL (7-18); CALCIUM 9.7 MG/DL (8.5-10.1); CARBON DIOXIDE 31 MMOL/L (21-32); CHLORIDE 103 MMOL/L (98-107); CREATININE 0.3 MG/DL (0.55-1.30); POTASSIUM 4.2 MMOL/L (3.5-5.1); SODIUM 134 MMOL/L (136-145)
[2017-08-20 12:00] VITALS: BP 125/59
[2017-08-20 12:00] LABS: ALANINE AMINOTRANSFERASE 22 U/L (12-78); ALBUMIN 2.2 G/DL (3.4-5.0); ALBUMIN/GLOBULIN RATIO 0.5 (1.0-2.7); ALKALINE PHOSPHATASE 88 U/L (46-116); ASPARTATE AMINO TRANSFERASE 25 U/L (15-37); BILIRUBIN,TOTAL 0.3 MG/DL (0.2-1.0)
--- NOTE | 2017-08-20 12:47 | General Surgery Progress Note ---
General Surgery-Progress Note Subjective Procedure Performed Incision and drainage of left neck mass with sharp debridement of abscess cavity and biopsy Symptoms: improved Objective Last 24 Hour Vital Signs Date Time Temp Pulse Resp B/P (MAP) Pulse Ox O2 Delivery O2 Flow Rate FiO2 08/20/17 11:52 97.7 08/20/17 09:29 97.7 08/20/17 09:00 Nasal Cannula 2.0 08/20/17 08:30 83 117/63 08/20/17 08:30 97.7 08/20/17 08:29 83 117/63 08/20/17 08:28 117/63 08/20/17 08:00 97.7 83 18 117/63 (81) 95 97.7 08/20/17 04:00 97.7 75 18 116/61 (79) 95 97.7 08/20/17 00:00 98.6 69 18 127/68 (87) 99 98.6 08/19/17 21:35 76 115/55 08/19/17 21:00 Nasal Cannula 2.0 08/19/17 20:00 98.0 76 20 115/55 (75) 99 98.0 08/19/17 17:23 98.0 08/19/17 17:23 78 119/60 08/19/17 16:00 98.0 78 18 110/60 (77) 100 98.0 I&O Intake and Output 08/19/17 08/20/17 19:00 07:00 Intake Total 1060 ml 1515 ml Output Total 1100 ml 1600 ml Balance -40 ml -85 ml Free Water 200 ml 160 ml IV Total 750 ml 750 ml Tube Feeding 110 ml 605 ml Output Urine Total 1100 ml 1600 ml # Bowel Movements 1 Wound: clean, dry Laboratory Tests Test 08/20/17 11:30 White Blood Count 7.7 K/UL (4.8-10.8) Red Blood Count 4.45 M/UL (4.20-5.40) Hemoglobin 14.0 G/DL (12.0-16.0) Hematocrit 42.0 % (37.0-47.0) Mean Corpuscular Volume 94 FL (80-99) Mean Corpuscular Hemoglobin 31.5 PG (27.0-31.0) H Mean Corpuscular Hemoglobin Concent 33.3 G/DL (32.0-36.0) Red Cell Distribution Width 13.1 % (11.6-14.8) Platelet Count 237 K/UL (150-450) Mean Platelet Volume 8.5 FL (6.5-10.1) Neutrophils (%) (Auto) 63.7 % (45.0-75.0) Lymphocytes (%) (Auto) 26.2 % (20.0-45.0) Monocytes (%) (Auto) 7.7 % (1.0-10.0) Eosinophils (%) (Auto) 1.6 % (0.0-3.0) Basophils (%) (Auto) 0.7 % (0.0-2.0) Sodium Level 134 MMOL/L (136-145) L Potassium Level 4.2 MMOL/L (3.5-5.1) Chloride Level 103 MMOL/L (98-107) Carbon Dioxide Level 31 MMOL/L (21-32) Anion Gap 0 mmol/L (5-15) L Blood Urea Nitrogen 10 mg/dL (7-18) Creatinine 0.3 MG/DL (0.55-1.30) L Estimat Glomerular Filtration Rate mL/min (>60) Glucose Level 140 MG/DL (74-106) H Calcium Level 9.7 MG/DL (8.5-10.1) Total Bilirubin 0.3 MG/DL (0.2-1.0) Aspartate Amino Transf (AST/SGOT) 25 U/L (15-37) Alanine Aminotransferase (ALT/SGPT) 22 U/L (12-78) Alkaline Phosphatase 88 U/L (46-116) Total Protein 6.5 G/DL (6.4-8.2) Albumin 2.2 G/DL (3.4-5.0) L Globulin 4.3 g/dL Albumin/Globulin Ratio 0.5 (1.0-2.7) L Assessment Post-op Diagnosis left neck deep abscess Plan Problems: (1) Mass in neck Assessment & Plan: 76F with left neck mass. noted on exam and seen on CT. possible infectious vs necrotic tumor. s/p exploration. identified a left neck abscess s/p drainage. saida drain in place. doing well on IV abx saida drain removed -Abx as per ID -dressings daily and PRN saturation Akhil Jackson Aug 20, 2017 12:47
[2017-08-20 16:00] VITALS: BP 120/55
--- NOTE | 2017-08-20 16:33 | Infectious Diseases Prog Note ---
Assessment/Plan Assessment/Plan ASSESSMENT AND PLAN: 1. mrsa neck abscess/cellulitis, s/p I/D - vancomycin - f/u on labs - d/w Vicki Moore [employer] - surgery f/u 2. MRSA colonization and isolation. 3. Mild leukocytosis. 4. Dementia, altered mental status. 5. Hypertension. 6. Diabetes. 7. Hypernatremia. 8. Blood sugar and blood pressure treatment for diabetes and hypertension per primary. 9. Cerebrovascular accident. 10. Hemiplegia. 11. Weakness. 12. Arm rash. 13. Cerebral infarction. 14. Encephalopathy. 15. Dysphagia. 16. No known allergies. 17. Social history is negative. 18. Family history is noncontributory. 19. MAR was noted. 20. Case was discussed with RN. 21. Continue treatment per primary consultants. 22. Notes and records were reviewed. 23. Orders were noted and entered. Subjective Constitutional: Denies: fever Respiratory: Denies: shortness of breath Cardiovascular: Denies: chest pain Gastrointestinal/Abdominal: Denies: nausea, vomiting, diarrhea Genitourinary: Reports: other - no taylor Neurologic: Denies: headache Psychiatric: Denies: depression Skin: Denies: rash Hematologic: Denies: bleeding Musculoskeletal: Denies: pain Allergies: Coded Allergies: No Known Allergies (Unverified , 02/04/17) Objective Vital Signs Last 24 Hour Vital Signs Date Time Temp Pulse Resp B/P (MAP) Pulse Ox O2 Delivery O2 Flow Rate FiO2 08/20/17 16:00 98.2 79 19 120/55 (76) 21 98.2 08/20/17 12:51 97.7 08/20/17 12:00 97.7 66 19 125/59 (81) 99 97.7 08/20/17 11:52 97.7 08/20/17 09:00 Nasal Cannula 2.0 08/20/17 08:30 83 117/63 08/20/17 08:30 97.7 08/20/17 08:29 83 117/63 08/20/17 08:28 117/63 08/20/17 08:00 97.7 83 18 117/63 (81) 95 97.7 08/20/17 04:00 97.7 75 18 116/61 (79) 95 97.7 08/20/17 00:00 98.6 69 18 127/68 (87) 99 98.6 08/19/17 21:35 76 115/55 08/19/17 21:00 Nasal Cannula 2.0 08/19/17 20:00 98.0 76 20 115/55 (75) 99 98.0 08/19/17 17:23 98.0 08/19/17 17:23 78 119/60 Height (Feet): 5 Height (Inches): 4.00 Weight (Pounds): 132 General Appearance: no acute distress HEENT: normocephalic, atraumatic, anicteric, mucous membranes moist, other - incision neck - c/d, less swelling and no sig redness Respiratory/Chest: lungs clear, normal breath sounds, no respiratory distress, no accessory muscle use Cardiovascular: normal rate, regular rhythm, no gallop/murmur, no JVD Abdomen: normal bowel sounds, soft, non tender, no organomegaly, non distended Genitourinary: other - no taylor Extremities: no cyanosis Skin: no rash Neurologic/Psychiatric: slat pickler II-XII grossly normal, alert, responsive Lymphatic: no neck adenopathy Musculoskeletal: no effusion Objective CT neck: IMPRESSION: enlarged left submandibular gland with peripherally enhancing cystic areas throughout and possibly adjacent to the gland, measuring up to 2.2 cm in diameter. There is superficial and deep soft tissue swelling with edema seen throughout the parapharyngeal fat down to the level of the hyoid bone. Infection/abscess versus necrotic mass. Chest x-ray - negative (report noted) Microbiology Date/Time Source Procedure Growth Status 08/18/17 12:50 Blood Blood Culture - Preliminary NO GROWTH AFTER 24 HOURS Resulted 08/11/17 19:00 Nasal Nares MRSA Culture - Final Staphylococcus Aureus - Mrsa Complete 08/17/17 08:05 Neck Gram Stain - Final Complete 08/17/17 08:05 Aerobic Culture - Final Staphylococcus Aureus - Mrsa Complete 08/17/17 08:05 Neck Anaerobic Culture - Final NO ANAEROBES ISOLATED Complete Microbiology Date/Time Source Procedure Growth Status 08/18/17 12:50 Blood Blood Culture - Preliminary NO GROWTH AFTER 24 HOURS Resulted 08/18/17 12:30 Blood Blood Culture - Preliminary NO GROWTH AFTER 24 HOURS Resulted Laboratory Tests Test 08/20/17 11:30 White Blood Count 7.7 K/UL (4.8-10.8) Red Blood Count 4.45 M/UL (4.20-5.40) Hemoglobin 14.0 G/DL (12.0-16.0) Hematocrit 42.0 % (37.0-47.0) Mean Corpuscular Volume 94 FL (80-99) Mean Corpuscular Hemoglobin 31.5 PG (27.0-31.0) H Mean Corpuscular Hemoglobin Concent 33.3 G/DL (32.0-36.0) Red Cell Distribution Width 13.1 % (11.6-14.8) Platelet Count 237 K/UL (150-450) Mean Platelet Volume 8.5 FL (6.5-10.1) Neutrophils (%) (Auto) 63.7 % (45.0-75.0) Lymphocytes (%) (Auto) 26.2 % (20.0-45.0) Monocytes (%) (Auto) 7.7 % (1.0-10.0) Eosinophils (%) (Auto) 1.6 % (0.0-3.0) Basophils (%) (Auto) 0.7 % (0.0-2.0) Sodium Level 134 MMOL/L (136-145) L Potassium Level 4.2 MMOL/L (3.5-5.1) Chloride Level 103 MMOL/L (98-107) Carbon Dioxide Level 31 MMOL/L (21-32) Anion Gap 0 mmol/L (5-15) L Blood Urea Nitrogen 10 mg/dL (7-18) Creatinine 0.3 MG/DL (0.55-1.30) L Estimat Glomerular Filtration Rate mL/min (>60) Glucose Level 140 MG/DL (74-106) H Calcium Level 9.7 MG/DL (8.5-10.1) Total Bilirubin 0.3 MG/DL (0.2-1.0) Aspartate Amino Transf (AST/SGOT) 25 U/L (15-37) Alanine Aminotransferase (ALT/SGPT) 22 U/L (12-78) Alkaline Phosphatase 88 U/L (46-116) Total Protein 6.5 G/DL (6.4-8.2) Albumin 2.2 G/DL (3.4-5.0) L Globulin 4.3 g/dL Albumin/Globulin Ratio 0.5 (1.0-2.7) L Current Medications Medications (Trade) Dose Ordered Sig/Wayne Route PRN Reason Start Time Stop Time Status Last Admin Dose Admin Acetaminophen (Tylenol) 650 mg Q6H PRN ORAL Mild Pain (Pain Scale 1-3) 08/17/17 09:00 09/10/17 22:44 08/20/17 03:05 Amlodipine Besylate (Norvasc) 5 mg BID GT 08/12/17 09:00 09/11/17 08:59 08/20/17 08:29 Aspirin (ASA) 162 mg DAILY GT 08/12/17 09:00 09/11/17 08:59 08/20/17 08:26 Bisacodyl (Dulcolax) 10 mg DAILY PRN RECTAL Constipation 08/11/17 23:00 09/10/17 22:59 Clotrimazole (Lotrimin) 1 applic THREE TIMES A DAY TOPIC 08/16/17 14:00 09/15/17 13:59 08/20/17 11:53 Cyclobenzaprine HCl (Flexeril) 5 mg THREE TIMES A DAY GT 08/12/17 09:00 09/11/17 08:59 08/20/17 11:52 Dextrose (Dextrose 50%) 25 ml STAT PRN IV Hypoglycemia 08/12/17 06:45 09/11/17 06:44 Dextrose (Dextrose 50%) 50 ml STAT PRN IV Hypoglycemia 08/12/17 06:45 09/11/17 06:44 Docusate Sodium (Colace) 100 mg TWICE A DAY GT 08/14/17 18:00 09/13/17 17:59 08/20/17 08:25 Heparin Sodium (Porcine) (Heparin 5000 units/ml) 5,000 units EVERY 12 HOURS SUBQ 08/11/17 23:21 09/10/17 23:20 08/20/17 08:36 Insulin Aspart (NovoLOG) Q6HR SUBQ 08/14/17 18:00 09/11/17 11:29 08/20/17 11:56 Insulin Detemir (Levemir) 13 units Q12HR SUBQ 08/15/17 21:00 09/12/17 20:59 08/20/17 08:37 Lorazepam (Ativan) 1 mg Q6H PRN ORAL For Anxiety 08/15/17 16:00 08/22/17 15:59 Magnesium Hydroxide (Mom) 30 ml DAILY GT 08/12/17 09:00 09/11/17 08:59 08/20/17 08:26 Metoprolol Tartrate (Lopressor) 12.5 mg Q12HR GT 08/11/17 23:22 09/10/17 23:21 08/20/17 08:30 Morphine Sulfate (Morphine Sulfate) 2 mg Q4H PRN IVP pain 4-10 08/17/17 08:45 08/24/17 08:44 Multivitamins (Multivitamins W/ Minerals 15ml Liquid) 15 ml DAILY GT 08/12/17 10:30 09/11/17 10:29 08/20/17 08:28 Nitroglycerin (Ntg) 1 patch Q24H TDERMAL 08/12/17 09:00 09/11/17 08:59 08/20/17 08:28 Ondansetron HCl (Zofran ODT) 4 mg Q6H PRN GT Nausea & Vomiting 08/11/17 23:15 09/10/17 23:14 Sodium Chloride 1,000 ml @ 75 mls/hr [id number] IV 08/12/17 17:30 09/11/17 17:29 08/20/17 11:53 Vancomycin HCl (Vanco rx to dose) 1 ea DAILY PRN MISC Per rx protocol 08/11/17 22:45 09/10/17 22:44 Vancomycin HCl 1 gm/Dextrose 275 ml @ 183.708 mls/hr Q12H IVPB 08/19/17 17:00 08/24/17 16:59 08/20/17 05:11 Vitamin D (Vitamin D) 5,000 intlu DAILY GT 08/12/17 09:00 09/11/17 08:59 08/20/17 08:26 Milton Valladares MD Aug 20, 2017 16:33
--- NOTE | 2017-08-20 19:01 | General Progress Note ---
Assessment/Plan Problem List: (1) Abscess ICD Codes: L02.91 - Cutaneous abscess, unspecified SNOMED: 992564057 (2) Hyperglycemia due to type 2 diabetes mellitus ICD Codes: E11.65 - Type 2 diabetes mellitus with hyperglycemia SNOMED: 85375157, 758081655089048 (3) HTN (hypertension) ICD Codes: I10 - Essential (primary) hypertension SNOMED: 59726338 (4) H/O: CVA (cerebrovascular accident) ICD Codes: Z86.73 - Personal history of transient ischemic attack (TIA), and cerebral infarction without residual deficits SNOMED: 769389859 (5) Sepsis ICD Codes: A41.9 - Sepsis, unspecified organism SNOMED: 89774045 (6) Toxic metabolic encephalopathy ICD Codes: G92 - Toxic encephalopathy SNOMED: 317392147 (7) Hypernatremia ICD Codes: E87.0 - Hyperosmolality and hypernatremia SNOMED: 06878562 (8) Mass in neck ICD Codes: R22.1 - Localized swelling, mass and lump, neck SNOMED: 420233753 (9) Rash ICD Codes: R21 - Rash and other nonspecific skin eruption SNOMED: 349622349 (10) Status post incision and drainage ICD Codes: Z98.890 - Other specified postprocedural states SNOMED: 227311165, 744745431 (11) MRSA infection ICD Codes: A49.02 - Methicillin resistant Staphylococcus aureus infection, unspecified site SNOMED: 309495117 Status: stable, progressing Assessment/Plan - General surgery consulted, appreciate rec's - ENT consulted -- not available - ID consulted appreciate rec's - s/p I&D 08/17 with no periop or postop complications - f/u biopsy and culture results -- growing MRSA - Continue IV vancomycin. unasyn dc'ed - IVF - neck CT showing chronic abscess vs. necrotic tumor - continue tube feeds - increase levemir to 13 units q12hr + NISS -- blood sugars better controlled in the 150s - A1c 7.7 - clotrimazole topical to fungal rash of left armpit -- improving - check venous duplex of bilateral upper and lower extremities -- negative - pain control and supportive care DC planning in AM back to [facility] pending ID rec's DVT Prophylaxis: SCD, HSQ Code Status: Full Hospital Classification Declaration: Based on this initial evaluation, and depending on the patient's clinical course, I anticipate that this patient will require hospitalization for 2-3 days for abscess, sepsis, and close respiratory/ hemodynamic monitoring. Disposition: Once the patient is stable to leave the hospital, I anticipate the patient will likely be discharged to the following environment: SNF, [facility] I spent 34 minutes on this patient's case, and 20 minutes were dedicated to counseling and/or care coordination. Discussed with patient/family, nursing staff, SW/CM, ID, general surgery regarding clinical status, treatment course, and disposition planning. Time of note may not reflect time of encounter. Subjective Date patient seen: Aug 20, 2017 Time patient seen: 19:01 Allergies: Coded Allergies: No Known Allergies (Unverified , 02/04/17) Subjective - s/p I&D and biopsy to left submandibular area with no periop or postop complications, POD#3 - saida drain removed today - wound culture growing MRSA - appears in no NAD. AF, HDS Objective Last 24 Hour Vital Signs Date Time Temp Pulse Resp B/P (MAP) Pulse Ox O2 Delivery O2 Flow Rate FiO2 08/20/17 18:14 98.2 08/20/17 17:15 98.2 08/20/17 17:15 79 120/55 08/20/17 16:00 98.2 79 19 120/55 (76) 21 98.2 08/20/17 12:00 97.7 66 19 125/59 (81) 99 97.7 08/20/17 11:52 97.7 08/20/17 09:00 Nasal Cannula 2.0 08/20/17 08:30 83 117/63 08/20/17 08:30 97.7 08/20/17 08:29 83 117/63 08/20/17 08:28 117/63 08/20/17 08:00 97.7 83 18 117/63 (81) 95 97.7 08/20/17 04:00 97.7 75 18 116/61 (79) 95 97.7 08/20/17 00:00 98.6 69 18 127/68 (87) 99 98.6 08/19/17 21:35 76 115/55 08/19/17 21:00 Nasal Cannula 2.0 08/19/17 20:00 98.0 76 20 115/55 (75) 99 98.0 Intake and Output 08/19/17 08/20/17 19:00 07:00 Intake Total 1060 ml 1570 ml Output Total 1100 ml 1600 ml Balance -40 ml -30 ml Free Water 200 ml 160 ml IV Total 750 ml 750 ml Tube Feeding 110 ml 660 ml Output Urine Total 1100 ml 1600 ml # Bowel Movements 1 Laboratory Tests 08/20/17 11:30: White Blood Count 7.7, Red Blood Count 4.45, Hemoglobin 14.0, Hematocrit 42.0, Mean Corpuscular Volume 94, Mean Corpuscular Hemoglobin 31.5H, Mean Corpuscular Hemoglobin Concent 33.3, Red Cell Distribution Width 13.1, Platelet Count 237, Mean Platelet Volume 8.5, Neutrophils (%) (Auto) 63.7, Lymphocytes (%) (Auto) 26.2, Monocytes (%) (Auto) 7.7, Eosinophils (%) (Auto) 1.6, Basophils (%) (Auto ) 0.7, Sodium Level 134L, Potassium Level 4.2, Chloride Level 103, Carbon Dioxide Level 31, Anion Gap 0L, Blood Urea Nitrogen 10, Creatinine 0.3L, Estimat Glomerular Filtration Rate , Glucose Level 140H, Calcium Level 9.7, Total Bilirubin 0.3, Aspartate Amino Transf (AST/SGOT) 25, Alanine Aminotransferase (ALT/SGPT) 22, Alkaline Phosphatase 88, Total Protein 6.5, Albumin 2.2L, Globulin 4.3, Albumin/Globulin Ratio 0.5L 08/20/17 16:30: Vancomycin Level Trough 16.0H Height (Feet): 5 Height (Inches): 4.00 Weight (Pounds): 132 General Appearance: no apparent distress, alert EENT: PERRL/EOMI Neck: non-tender, normal alignment, other - sutures to left submandibular area c/d/i Cardiovascular: normal peripheral pulses, normal rate, regular rhythm Respiratory/Chest: chest wall non-tender, lungs clear, normal breath sounds Abdomen: normal bowel sounds, non tender, soft, other - PEG Neurologic: alert - RUE 5/5 strength. LUE and bilateral lower extremities 0/5 strength Vicki Moore NP Aug 20, 2017 19:01
[2017-08-20 20:00] VITALS: BP 120/63
[2017-08-21] VITALS: BP 123/59
[2017-08-21] MEDS: NovoLOG Insulin Flexpen SUBQ SCH ×3 (00:02→12:33)
[2017-08-21 04:00] VITALS: BP 125/64
[2017-08-21] MEDS ORDERED: Vancomycin 750mg/NS 250ml IVPB SCH (05:00)
[2017-08-21 08:00] VITALS: BP 132/56
[2017-08-21] MEDS: Nitroglycerin Patch 0.2mg/hr TDERMAL SCH (08:49)
[2017-08-21] MEDS: Multivitamins W/Minerals 15 ML UDC GT SCH (08:50)
[2017-08-21] MEDS: Vitamin D 1000 IU Tab GT SCH (08:50)
[2017-08-21] MEDS: Metoprolol 25mg tab GT SCH (08:51)
[2017-08-21] MEDS: Heparin 5000 units/ml inj SUBQ SCH (08:53)
[2017-08-21] MEDS: Docusate 100mg/10ml Liq GT SCH (08:54)
[2017-08-21] MEDS: Aspirin Baby 81mg GT SCH (08:54)
[2017-08-21] MEDS: Milk of Magnesia 30ml Ud GT SCH (08:54)
[2017-08-21] MEDS: Cyclobenzaprine 10mg Tab GT SCH ×2 (08:55→12:24)
[2017-08-21] MEDS: Levemir Flexpen SUBQ SCH (08:58)
[2017-08-21 12:00] VITALS: BP 120/55
--- NOTE | 2017-08-21 12:58 | Infectious Diseases Prog Note ---
Assessment/Plan Assessment/Plan ASSESSMENT AND PLAN: 1. mrsa neck abscess/cellulitis, s/p I/D - vancomycin - can transition to oral bactrim x 10 days - f/u on labs - d/w Vicki Moore NP, d/w surgery and agrees to transition to oral abx - surgery f/u 2. MRSA colonization and isolation. 3. Mild leukocytosis. 4. Dementia, altered mental status. 5. Hypertension. 6. Diabetes. 7. Hypernatremia. 8. Blood sugar and blood pressure treatment for diabetes and hypertension per primary. 9. Cerebrovascular accident. 10. Hemiplegia. 11. Weakness. 12. Arm rash. 13. Cerebral infarction. 14. Encephalopathy. 15. Dysphagia. 16. No known allergies. 17. Social history is negative. 18. Family history is noncontributory. 19. MAR was noted. 20. Case was discussed with RN. 21. Continue treatment per primary consultants. 22. Notes and records were reviewed. 23. Orders were noted and entered. Subjective Constitutional: Denies: fever HEENT: Denies: congestion Respiratory: Denies: shortness of breath Cardiovascular: Denies: chest pain Gastrointestinal/Abdominal: Denies: nausea, vomiting, diarrhea Genitourinary: Reports: other - no taylor Neurologic: Denies: headache Skin: Denies: rash Hematologic: Denies: bleeding Musculoskeletal: Denies: pain Allergies: Coded Allergies: No Known Allergies (Unverified , 02/04/17) Objective Vital Signs Last 24 Hour Vital Signs Date Time Temp Pulse Resp B/P (MAP) Pulse Ox O2 Delivery O2 Flow Rate FiO2 08/21/17 12:24 97.1 08/21/17 09:54 97.1 08/21/17 09:00 Nasal Cannula 2.0 08/21/17 08:55 97.1 08/21/17 08:54 83 117/63 08/21/17 08:51 83 117/63 08/21/17 08:49 117/63 08/21/17 08:00 97.7 75 20 132/56 (81) 100 97.7 08/21/17 04:00 97.1 78 18 125/64 (84) 100 97.1 08/21/17 00:00 98.4 63 18 123/59 (80) 100 98.4 08/20/17 21:52 Nasal Cannula 2.0 28 08/20/17 21:52 98 Nasal Cannula 2.0 28 08/20/17 21:25 89 120/63 08/20/17 21:00 Nasal Cannula 2.0 08/20/17 20:00 98.4 89 18 120/63 (82) 98 98.4 08/20/17 17:15 98.2 08/20/17 17:15 79 120/55 08/20/17 16:00 98.2 79 19 120/55 (76) 21 98.2 Height (Feet): 5 Height (Inches): 4.00 Weight (Pounds): 132 General Appearance: no acute distress HEENT: normocephalic, atraumatic, anicteric, mucous membranes moist, EOMI, supple, no JVD, other - incision clean and dry, no cellulitis, no drainage Respiratory/Chest: lungs clear, normal breath sounds, no respiratory distress, no accessory muscle use Cardiovascular: normal rate, regular rhythm, no gallop/murmur, no JVD Abdomen: normal bowel sounds, soft, non tender, no organomegaly, non distended Genitourinary: other - no taylor Extremities: no cyanosis Skin: no rash 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 There is superficial and deep soft tissue swelling with edema seen throughout the parapharyngeal fat down to the level of the hyoid bone. Infection/abscess versus necrotic mass. Chest x-ray - negative (report noted) Microbiology Date/Time Source Procedure Growth Status 08/18/17 12:50 Blood Blood Culture - Preliminary NO GROWTH AFTER 48 HOURS Resulted 08/11/17 19:00 Nasal Nares MRSA Culture - Final Staphylococcus Aureus - Mrsa Complete 08/17/17 08:05 Neck Gram Stain - Final Complete 08/17/17 08:05 Aerobic Culture - Final Staphylococcus Aureus - Mrsa Complete 08/17/17 08:05 Neck Anaerobic Culture - Final NO ANAEROBES ISOLATED Complete Labs Test 08/19/17 04:39 08/20/17 11:30 08/20/17 16:30 White Blood Count 6.8 K/UL (4.8-10.8) 7.7 K/UL (4.8-10.8) Red Blood Count 3.95 M/UL (4.20-5.40) 4.45 M/UL (4.20-5.40) Hemoglobin 12.5 G/DL (12.0-16.0) 14.0 G/DL (12.0-16.0) Hematocrit 37.4 % (37.0-47.0) 42.0 % (37.0-47.0) Mean Corpuscular Volume 95 FL (80-99) 94 FL (80-99) Mean Corpuscular Hemoglobin 31.5 PG (27.0-31.0) 31.5 PG (27.0-31.0) Mean Corpuscular Hemoglobin Concent 33.4 G/DL (32.0-36.0) 33.3 G/DL (32.0-36.0) Red Cell Distribution Width 13.5 % (11.6-14.8) 13.1 % (11.6-14.8) Platelet Count 239 K/UL (150-450) 237 K/UL (150-450) Mean Platelet Volume 8.3 FL (6.5-10.1) 8.5 FL (6.5-10.1) Neutrophils (%) (Auto) 62.2 % (45.0-75.0) 63.7 % (45.0-75.0) Lymphocytes (%) (Auto) 27.2 % (20.0-45.0) 26.2 % (20.0-45.0) Monocytes (%) (Auto) 7.7 % (1.0-10.0) 7.7 % (1.0-10.0) Eosinophils (%) (Auto) 2.3 % (0.0-3.0) 1.6 % (0.0-3.0) Basophils (%) (Auto) 0.5 % (0.0-2.0) 0.7 % (0.0-2.0) Sodium Level 140 MMOL/L (136-145) 134 MMOL/L (136-145) Potassium Level 4.1 MMOL/L (3.5-5.1) 4.2 MMOL/L (3.5-5.1) Chloride Level 107 MMOL/L (98-107) 103 MMOL/L (98-107) Carbon Dioxide Level 29 MMOL/L (21-32) 31 MMOL/L (21-32) Anion Gap 4 mmol/L (5-15) 0 mmol/L (5-15) Blood Urea Nitrogen 10 mg/dL (7-18) 10 mg/dL (7-18) Creatinine 0.4 MG/DL (0.55-1.30) 0.3 MG/DL (0.55-1.30) Estimat Glomerular Filtration Rate mL/min (>60) mL/min (>60) Glucose Level 155 MG/DL (74-106) 140 MG/DL (74-106) Calcium Level 8.9 MG/DL (8.5-10.1) 9.7 MG/DL (8.5-10.1) Vancomycin Level Trough 10.9 ug/mL (5.0-12.0) 16.0 ug/mL (5.0-12.0) Total Bilirubin 0.3 MG/DL (0.2-1.0) Aspartate Amino Transf (AST/SGOT) 25 U/L (15-37) Alanine Aminotransferase (ALT/SGPT) 22 U/L (12-78) Alkaline Phosphatase 88 U/L (46-116) Total Protein 6.5 G/DL (6.4-8.2) Albumin 2.2 G/DL (3.4-5.0) Globulin 4.3 g/dL Albumin/Globulin Ratio 0.5 (1.0-2.7) Laboratory Tests Test 08/20/17 16:30 Vancomycin Level Trough 16.0 ug/mL (5.0-12.0) H Current Medications Medications (Trade) Dose Ordered Sig/Wayne Route PRN Reason Start Time Stop Time Status Last Admin Dose Admin Acetaminophen (Tylenol) 650 mg Q6H PRN ORAL Mild Pain (Pain Scale 1-3) 08/17/17 09:00 09/10/17 22:44 08/20/17 21:26 Amlodipine Besylate (Norvasc) 5 mg BID GT 08/12/17 09:00 09/11/17 08:59 08/21/17 08:54 Aspirin (ASA) 162 mg DAILY GT 08/12/17 09:00 09/11/17 08:59 08/21/17 08:54 Bisacodyl (Dulcolax) 10 mg DAILY PRN RECTAL Constipation 08/11/17 23:00 09/10/17 22:59 Clotrimazole (Lotrimin) 1 applic THREE TIMES A DAY TOPIC 08/16/17 14:00 09/15/17 13:59 08/21/17 12:24 Cyclobenzaprine HCl (Flexeril) 5 mg THREE TIMES A DAY GT 08/12/17 09:00 09/11/17 08:59 08/21/17 12:24 Dextrose (Dextrose 50%) 25 ml STAT PRN IV Hypoglycemia 08/12/17 06:45 09/11/17 06:44 Dextrose (Dextrose 50%) 50 ml STAT PRN IV Hypoglycemia 08/12/17 06:45 09/11/17 06:44 Docusate Sodium (Colace) 100 mg TWICE A DAY GT 08/14/17 18:00 09/13/17 17:59 08/21/17 08:54 Heparin Sodium (Porcine) (Heparin 5000 units/ml) 5,000 units EVERY 12 HOURS SUBQ 08/11/17 23:21 09/10/17 23:20 08/21/17 08:53 Insulin Aspart (NovoLOG) Q6HR SUBQ 08/14/17 18:00 09/11/17 11:29 08/21/17 12:33 Insulin Detemir (Levemir) 13 units Q12HR SUBQ 08/15/17 21:00 09/12/17 20:59 08/21/17 08:58 Lorazepam (Ativan) 1 mg Q6H PRN ORAL For Anxiety 08/15/17 16:00 08/22/17 15:59 08/21/17 03:04 Magnesium Hydroxide (Mom) 30 ml DAILY GT 08/12/17 09:00 09/11/17 08:59 08/21/17 08:54 Metoprolol Tartrate (Lopressor) 12.5 mg Q12HR GT 08/11/17 23:22 09/10/17 23:21 08/21/17 08:51 Morphine Sulfate (Morphine Sulfate) 2 mg Q4H PRN IVP pain 4-10 08/17/17 08:45 08/24/17 08:44 Multivitamins (Multivitamins W/ Minerals 15ml Liquid) 15 ml DAILY GT 08/12/17 10:30 09/11/17 10:29 08/21/17 08:50 Nitroglycerin (Ntg) 1 patch Q24H TDERMAL 08/12/17 09:00 09/11/17 08:59 08/21/17 08:49 Ondansetron HCl (Zofran ODT) 4 mg Q6H PRN GT Nausea & Vomiting 08/11/17 23:15 09/10/17 23:14 Sodium Chloride 1,000 ml @ 75 mls/hr [id number] IV 08/12/17 17:30 09/11/17 17:29 08/21/17 01:37 Vancomycin HCl (Vanco rx to dose) 1 ea DAILY PRN MISC Per rx protocol 08/11/17 22:45 09/10/17 22:44 Vancomycin/Sodium Chloride 250 ml @ 166.667 mls/hr Q12HR@0500,1700 IVPB 08/21/17 05:00 08/26/17 04:59 08/21/17 05:03 Vitamin D (Vitamin D) 5,000 intlu DAILY GT 08/12/17 09:00 09/11/17 08:59 08/21/17 08:50 Milton Valladares MD Aug 21, 2017 12:58
[2017-08-21] MEDS ORDERED: BACTRIM-DS1 EA ORAL (13:38)
--- NOTE | 2017-08-21 14:06 | General Surgery Progress Note ---
General Surgery-Progress Note Subjective Procedure Performed Incision and drainage of left neck mass with sharp debridement of abscess cavity and biopsy Symptoms: improved Additional Comments wound c/d/i Objective Last 24 Hour Vital Signs Date Time Temp Pulse Resp B/P (MAP) Pulse Ox O2 Delivery O2 Flow Rate FiO2 08/21/17 12:24 97.1 08/21/17 09:54 97.1 08/21/17 09:00 Nasal Cannula 2.0 08/21/17 08:55 97.1 08/21/17 08:54 83 117/63 08/21/17 08:51 83 117/63 08/21/17 08:49 117/63 08/21/17 08:00 97.7 75 20 132/56 (81) 100 97.7 08/21/17 04:00 97.1 78 18 125/64 (84) 100 97.1 08/21/17 00:00 98.4 63 18 123/59 (80) 100 98.4 08/20/17 21:52 Nasal Cannula 2.0 28 08/20/17 21:52 98 Nasal Cannula 2.0 28 08/20/17 21:25 89 120/63 08/20/17 21:00 Nasal Cannula 2.0 08/20/17 20:00 98.4 89 18 120/63 (82) 98 98.4 08/20/17 17:15 98.2 08/20/17 17:15 79 120/55 08/20/17 16:00 98.2 79 19 120/55 (76) 21 98.2 I&O Intake and Output 08/20/17 08/21/17 19:00 07:00 Intake Total 1515 ml 1365 ml Output Total 1400 ml Balance 115 ml 1365 ml Free Water 100 ml 160 ml IV Total 975 ml 600 ml Tube Feeding 440 ml 605 ml Output Urine Total 1400 ml # Voids 3 # Bowel Movements 5 4 Wound: clean, dry, intact Drains: none Cardiovascular: RSR Respiratory: clear Abdomen: soft Extremities: no edema Laboratory Tests Test 08/20/17 16:30 Vancomycin Level Trough 16.0 ug/mL (5.0-12.0) H Assessment Post-op Diagnosis left neck deep abscess Plan Problems: (1) Mass in neck Assessment & Plan: 76F with left neck mass. noted on exam and seen on CT. possible infectious vs necrotic tumor. s/p exploration. identified a left neck abscess s/p drainage. saida drain in place. doing well on IV abx saida drain removed -Abx as per ID -dressings daily and PRN saturation okay to d/c from surgical standpoint Akhil Jackson Aug 21, 2017 14:06
--- NOTE | 2017-08-21 14:44 | Discharge Summary ---
Discharge Summary Hospital Course Date of Admission Aug 11, 2017 at 19:22 Date of Discharge August 21, 2017 Admitting Diagnosis ABCESS GWENDOLYN Doe is a 76 year old female who was admitted on Aug 11, 2017 at 19:22 for Abscess This is a 76-year-old female with past medical history of dementia, who presents from senior care for worsening left neck mass as well as pain, swelling, and redness noted. All information was obtained via nursing documentation, ER staff documentation, as well as from senior care reporting. The patient was taken to the ED for further evaluation and treatment and had head CT done, which showed enlarged left submandibular gland with peripherally enhancing cystic area adjacent submandibular gland measuring up to 2.2 cm in diameter. There was superficial and deep soft tissue swelling with edema seen throughout the parapharyngeal fat down to the level of the hyoid bone, abscess versus necrotic mass. The patient was also noted on laboratory results to have elevated white blood cell count of 11.1. Her blood sugars were also noted to be elevated at 310 as well as sodium of 153. The patient was started on IV fluids, given IV antibiotics with clindamycin, as well as started on vancomycin pharmacy dose. The patient was seen and examined, nonverbal, noncommunicative, in no apparent distress. Consultations General surgery ID Procedures s/p I&D and biopsy of left submandibular abscess Hospital Course General surgery and ID were consulted given CT findings of chronic abscess vs. necrotic tumor. Patient was started on broad-spectrum antibiotics. Consent was obtained for an I&D and biopsy. I&D and biopsy was done on 08/17/17 which showed abscess, and a biopsy was obtained and saida drainage placed. Wound culture showed MRSA and patient was continued on IV vancomycin. Patient was also noted to have elevated blood sugars and levemir was increased from 10 units q12hr to 13 units q12hr. A1c was noted to be 7.7. Patient's blood sugars were better controlled in the 150s. Patient was also noted to have a fungal rash to left armpit and patient was started on clotrimazole. Fungal rash and pain improved to left armpit. Venous duplex was also checked, which was negative for DVT. Patient was noted to have decreased drainage and therefore saida drainage was removed. Patient was therefore hemodynamically stable for discharge and patient was discharged back to SNF to continue bactrim DS BID x 10 more days. Patient is to follow up with general surgery in 1 week for wound culture and suture check. Discharge Medications New Medications: Trimethoprim/Sulfamethoxazole (Bactrim Ds Tablet) 1 Each Tablet 1 TAB ORAL TWICE A DAY for 10 Days, #20 TAB Continued Medications: Acetaminophen* (Acetaminophen*) 160 Mg/5 Ml Solution 650 MG ORAL Q6H PRN for Mild Pain/Temp > 100.5, ML Amlodipine Besylate (Norvasc) 5 Mg Tablet 5 MG NG BID for 90 Days, TAB Aspirin* (Aspirin*) 81 Mg Tab.chew 162 MG NG DAILY for 90 Days, TAB Bisacodyl (Bisacodyl) 10 Mg Supp.rect 10 MG RC DAILY PRN for Constipation, SUPP Cholecalciferol (Vitamin D3)* (Vitamin D*) 1,000 Unit Tablet 5000 INTLU GT DAILY for 90 Days, TAB Cran/Vitc/Mannose/Inulin/Brom (Uti-Stat Liquid) 3,875 Mg/30 Ml Liquid 3875 MG GT DAILY for UTI PPX, ML Cyclobenzaprine Hcl* (Flexeril*) 10 Mg Tablet 5 MG ORAL THREE TIMES A DAY for muscle, TAB Docusate Sodium* (Docusate Sodium*) 100 Mg Capsule 100 MG GT TWICE A DAY, CAP Heparin Sod (Porcine) (Heparin Sodium*) 5 000/1 Ml Vial 5000 UNITS SUBQ EVERY 12 HOURS for 30 Days, VIAL Ipratropium/Albuterol Sulfate (Iprat-Albut 0.5-3(2.5) Mg/3 Ml) 3 Ml Ampul.neb 3 ML IH Q6HR PRN for Shortness of Breath, EA Magnesium Hydroxide* (Milk Of Magnesia*) 400 Mg/5 Ml Oral.susp 30 ML ORAL DAILY, ML Metoprolol Tartrate (Metoprolol Tartrate) 25 Mg Tablet 12.5 MG NG Q12HR for 90 Days, TAB Multivitamin Liquid* (Multi-Delyn*) 237 Ml Liquid 5 ML GT DAILY, ML Na Phos,M-B/Na Phos,Di-Ba* (Fleet Enema*) 133 Ml Enema 133 ML RECTAL DAILY PRN for Constipation, ML 0 Refills Nitroglycerin (Nitroglycerin Patch) 1 Each Patch.td24 1 PATCH TDERMAL Q24H for 90 Days, PATCH Discharge Condition Upon Discharge: improving, stable Discharge Disposition Patient was discharged to [facility] Discharge Diagnoses: (1) Hypernatremia (2) Abscess (3) HTN (hypertension) (4) Toxic metabolic encephalopathy (5) Sepsis (6) Mass in neck (7) H/O: CVA (cerebrovascular accident) (8) Hyperglycemia due to type 2 diabetes mellitus (9) Hypokalemia (10) Hypercalcemia (11) Elevated troponin (12) Encounter for PEG (percutaneous endoscopic gastrostomy) (13) PNA (pneumonia) (14) Upper sacral area unstageable pressure ulcer (15) Large ischemic R MCA stroke (16) Right lateral malleolus stage I pressure ulcer (17) Perineal area gertrudis rashes extending to left and right buttocks (18) Rash (19) MRSA infection (20) Status post incision and drainage Vicki Moore NP Aug 21, 2017 14:44
[2017-08-21 15:10] LABS: BASOPHILS % (AUTO) 0.5 % (0.0-2.0); EOSINOPHILS % (AUTO) 1.3 % (0.0-3.0); HEMATOCRIT 37.2 % (37.0-47.0); HEMOGLOBIN 12.3 G/DL (12.0-16.0); LYMPHOCYTES % (AUTO) 29.1 % (20.0-45.0); MEAN CORPUSCULAR VOLUME 94 FL (80-99); MONOCYTES % (AUTO) 6.6 % (1.0-10.0); NEUTROPHILS % (AUTO) 62.5 % (45.0-75.0); PLATELET COUNT 271 K/UL (150-450); RED BLOOD COUNT 3.95 M/UL (4.20-5.40); WHITE BLOOD COUNT 8.4 K/UL (4.8-10.8)
[2017-08-21 15:21] LABS: ANION GAP 0 mmol/L (5-15); BLOOD UREA NITROGEN 10 mg/dL (7-18); CALCIUM 9.5 MG/DL (8.5-10.1); CARBON DIOXIDE 32 MMOL/L (21-32); CHLORIDE 104 MMOL/L (98-107); CREATININE 0.3 MG/DL (0.55-1.30); POTASSIUM 4.1 MMOL/L (3.5-5.1); SODIUM 136 MMOL/L (136-145)
[2017-08-21 16:00] VITALS: BP 105/53
== END 2017-08-21 19:05 | DRG 579 ==
LOC: EDBD 18:30 → EMR 19:19 → 4E 19:22 → EDBEDREQ 19:57 → 4E 08-15 02:30
PROC: 0K9 Muscles, Drainage (ICD-10-PCS; principal; 2017-08-17 07:30)
DX: L03.221 Cellulitis of neck (principal); A41.9 Sepsis, unspecified organism; G92 Toxic encephalopathy; E87.0 Hyperosmolality and hypernatremia; I69.959 Hemiplegia and hemiparesis following unspecified cerebrovascular disease affecting unspecified side; B95.62 Methicillin resistant Staphylococcus aureus infection as the cause of diseases classified elsewhere; E11.65 Type 2 diabetes mellitus with hyperglycemia; M62.838 Other muscle spasm; F03.90 Unspecified dementia, unspecified severity, without behavioral disturbance, psychotic disturbance, mood disturbance, and anxiety; I10 Essential (primary) hypertension; R11.0 Nausea; R13.10 Dysphagia, unspecified; F41.9 Anxiety disorder, unspecified; E87.6 Hypokalemia; E83.52 Hypercalcemia; Z93.1 Gastrostomy status; L89.511 Pressure ulcer of right ankle, stage 1; L89.150 Pressure ulcer of sacral region, unstageable; B37.2 Candidiasis of skin and nail
CPT/HCPCS: 36415; 70491; 71045; 80048; 80053; 80202; 82962; 83036; 83880; 85025; 85610; 85730; 87040; 87070; 87075; 87081; 87181; 87205; 93970; 94664; 94760; 99285; J1815; J2250; S0077; S5561

== ENCOUNTER 2018-09-14 08:31 | Inpatient (IN) | payer MEDICARE, MEDICAID ==
[2018-09-14] VITALS (7 sets, daily range): BP systolic 101–135; BP diastolic 49–79
[~2018-09-14] VITALS: Ht 160 cm; Wt 59.0 kg
[~2018-09-14 08:31] MED LIST changes: +ACETAMINOP160 MG/54 ORAL; +BACTRIM-DS1 EA ORAL; +BISACODYL10 M1 RC; +CYCLOBENZAPRINE10 MG ORAL; +DOCUSATE SODIU100 MG GT; +DOCUSATE SODIU100 MG ORAL; +FLEET ENEMA133 ML RECTAL; +IPRAT-ALBUT 0.5-3 ML IH; +MILK OF MA400 MG/51 ORAL; +MULTI-DELYN237 ML GT; +UTI-STAT L3875 MG/31 GT
--- NOTE | 2018-09-14 08:31 | NUR ---
ED Nurse Note: Pt brought in by EMS from [facility] due to AMS and respiratory distress started last night. Pt appears lethargic and pale. Unable to assess orientation , non verbal. SOB at rest with non re breather mask applied by EMS. Dr Pendleton at the bed side.
[2018-09-14] MEDS ORDERED: ZANTAC150 MG GT (08:34)
[2018-09-14] MEDS ORDERED: METFORMIN HCL500 M1 GT (08:35)
--- NOTE | 2018-09-14 08:40 | NUR ---
RESPIRATORY NOTE: Orally intubated with ETT size 7.0 @22cm lips line, secured by rai quintero, per Dr. Pendleton in ER. Pt placed on vent setting: AC [id number]%- peep 5, pt is sedated. and tolerating well the settings. Suctioned moderate amounts of thick/ thin white haas bloody secretions without incidents. Alarms are set and audible, vent is plugged into the red outlet, ambu bag is at bedside. FELIX Guerrero made aware. Will continue to monitor pt.
[2018-09-14] MEDS ORDERED: Vancomycin 1 GM in NS 275 ML IVPB ONE (08:45)
[2018-09-14] MEDS ORDERED: Isovue-300 100ml vial INJ PRN (08:45)
[2018-09-14] MEDS ORDERED: Vancomycin 1 GM in NS 275 ML IV ONE (08:45)
[2018-09-14 08:57] LABS: HEMATOCRIT 59.8 % (37.0-47.0); MEAN CORPUSCULAR VOLUME 99 FL (80-99); PLATELET COUNT 278 K/UL (150-450); RED BLOOD COUNT 6.01 M/UL (4.20-5.40); RED CELL DISTRIBUTION WIDTH 14.9 % (11.6-14.8); WHITE BLOOD COUNT 17.6 K/UL (4.8-10.8)
--- NOTE | 2018-09-14 08:58 | NUR ---
ED Nurse Note: Dr Pendleton notified of rectal temp 101 F.
[2018-09-14 08:59] LABS: HEMOGLOBIN 18.5 G/DL (12.0-16.0)
[2018-09-14 09:18] LABS: ALANINE AMINOTRANSFERASE 17 U/L (12-78); ALBUMIN 3.2 G/DL (3.4-5.0); ALBUMIN/GLOBULIN RATIO 0.6 (1.0-2.7); ALKALINE PHOSPHATASE 101 U/L (46-116); ANION GAP 8 mmol/L (5-15); ASPARTATE AMINO TRANSFERASE 14 U/L (15-37); BLOOD UREA NITROGEN 102 mg/dL (7-18); CALCIUM 10.7 MG/DL (8.5-10.1); CARBON DIOXIDE 32 MMOL/L (21-32); CHLORIDE 129 MMOL/L (98-107); CKMB < 0.5 NG/ML (0.0-3.6); CREATINE KINASE 292 U/L (26-308); CREATININE 1.7 MG/DL (0.55-1.30); PHOSPHORUS 3.2 MG/DL (2.5-4.9); POTASSIUM 3.9 MMOL/L (3.5-5.1)
[2018-09-14 09:20] LABS: SODIUM 167 MMOL/L (136-145)
[2018-09-14 09:28] LABS: APPEARANCE,URINE CLEAR; BILIRUBIN, URINE NEGATIVE (NEGATIVE); GLUCOSE, URINE (UA) 4+ (NEGATIVE); KETONES,URINE 1+ (NEGATIVE); LEUKOCYTE ESTERASE ,URINE NEGATIVE (NEGATIVE); NITRITE,URINE NEGATIVE (NEGATIVE); PH,URINE 5 (4.5-8.0); PROTEIN,URINE 2+ (NEGATIVE); UROBILINOGEN,URINE NORMAL MG/DL (0.0-1.0)
[2018-09-14 09:30] LABS: COLOR,URINE YELLOW
--- NOTE | 2018-09-14 09:35 | NUR ---
ED Nurse Note: RN, RT and transporter assisted pt going to CT abnd xray via gurney and on portable quality assurance monitor body.
--- NOTE | 2018-09-14 09:50 | NUR ---
ED Nurse Note: Pt came back from CT and xray.
--- NOTE | 2018-09-14 10:05 | NUR ---
ED Nurse Note: Repeat lactic acid sent.
--- NOTE | 2018-09-14 10:05 | Diagnostic Imaging Report ---
Indication: Shortness of breath Technique: One view of the chest Comparison: 08/15/2017 Findings: Interim endotracheal intubation, endotracheal tube tip projecting in good position approximately 4 cm above the tricia. Inspiration is suboptimal on the current exam. Left lateral hemidiaphragm is obscured. This may be due to prominent pericardial fat that left pleural effusion also possible. There is probably some retrocardiac consolidation or atelectasis as well. Slight blunting of the right costophrenic angle appears similar to the prior exam, may indicate a small pleural effusion. Impression: Satisfactory endotracheal intubation Hypoventilatory exam Possible left pleural effusion and retrocardiac consolidation Stable slight blunting of the right costophrenic angle, could indicate a small right pleural effusion
--- NOTE | 2018-09-14 10:16 | NUR ---
ED Nurse Note: Unable to upload picture of sacral wound. IT called.
--- NOTE | 2018-09-14 10:35 | NUR ---
ED Nurse Note: Tried to call for report. Spoken to [place] ICU charge nurse and states no assigned nurse yet.
--- NOTE | 2018-09-14 10:40 | Diagnostic Imaging Report ---
Indications: Altered mental status Technique: Spiral acquisitions obtained through the brain. Angled axial and coronal 5 x 5 mm slices were reconstructed. Total dose length product 1326.82 mGycm. CTDI vol(s) 70.38 mGy. Dose reduction achieved using automated exposure control Comparison: 02/04/2017 CT, 02/05/2017 MRI Findings: Interim development of fairly extensive encephalomalacia involving the right parietal, posterior frontal, and temporal lobes, consistent with progression to conicity of previously demonstrated subacute right middle cerebral artery distribution infarct. This results in ex vacuo dilatation of the temporal horn, atrium, and body of the right lateral ventricle. Parenchymal calcifications are now present within the area of encephalomalacia, not evident previously, presumably dystrophic. There is also some encephalomalacia in the left parietal lobe, also previously demonstrated to be a subacute infarct. Left frontal encephalomalacia is unchanged from the previous study. There is very unusual extra-axial ossification in the left frontal and anterior parietal region as well as in the anterior middle fossa again demonstrated. This is unchanged. No acute intracranial hemorrhage or edema, mass effect, no midline shift. Old lacunar infarcts are demonstrated in the bilateral basal ganglia, also evident previously. There is generalized age-related enlargement of the ventricles and extra axial CSF spaces and periventricular deep white matter low attenuation consistent with chronic microvascular ischemic changes. There is minimal sphenoid sinus opacification on the left. The calvarium is intact. The optic globes are intact. The mastoids are clear. Impression: Negative for acute intracranial bleed or mass effect Since prior study 02/04/2017, interim progression to chronicity of previously demonstrated subacute right middle cerebral artery distribution and left posterior parietal infarcts. Old left frontal infarct is again demonstrated Other chronic and age-related changes, as described Old bilateral basal ganglia lacunar infarcts again demonstrated Unusual extra-axial calcifications/ossification on the left, significance/etiology uncertain but unchanged since the prior exam The CT scanner at [facility] is accredited by the [employer] and the scans are performed using protocols designed to limit radiation exposure to as low as reasonably achievable to attain images of sufficient resolution adequate for diagnostic evaluation.
[2018-09-14] MEDS ORDERED: Acetaminophen 650 MG SUPP RECTAL ONE (10:45)
--- NOTE | 2018-09-14 11:00 | NUR ---
ED Nurse Note: Second attempt to call for report. Spoken to Loretta WASHINGTON and states Sarah RN is not available to receive report at this time. They will call again.
--- NOTE | 2018-09-14 11:09 | NUR ---
ED Nurse Note: Report given to Sarah WASHINGTON of ICU.
--- NOTE | 2018-09-14 11:25 | NUR ---
RESPIRATORY NOTE: Changed pt's vent setting to AC 14-500ml-60% FiO2- peep [address] Pendleton's order due to ABG result. FELIX Guerrero made aware. pt is tolerating well the new setting. Will continue to monitor.
--- NOTE | 2018-09-14 11:30 | NUR ---
NURSE NOTES: Received patient from Yolanda WASHINGTON. Patient blood pressure 116/67, HR 97, SpO2 98%, and RR 14. Temp 98.6. Patient reported to have temperature in ER. Lactic acid 3.0. Repeat to be drawn at 1500. Patient does not respond to voice, shaking, or light pain. Patient eyes sluggish to respond to light. Patient has ETT 7cm with 22cm at the lip line. ETT placement verified with chest x-ray. Lung sounds clear. Patient has gastrostomy tube that is patent and flushed at this time. Patient NPO at this time. Patient has right forearm 20G PIV and right hand 20G PIV. Patient has right heel redness and sacral suspected DTI with two open areas. Patient has perineal redness and excoriation. Patient found in a diaper. Diaper removed. Patient cleaned and repositioned and oral care provided at this time. Triad applied to perineal area and sacral wound. Cavilon skin barrier film applied to sacral periwound and right and left heel. Optifoam covering sacral and right and left heel for protection. Patient abdomen soft with bowel sounds present. Cap refill <3. Bed in low position with bed alarm on and call light in reach at this time. Addendum: 09/14/18 at 2019 by Sarah Quinonez RN Ventilator setting AC 14, tidal volume 500, FiO2 60%, and PEEP 5.
--- NOTE | 2018-09-14 11:35 | NUR ---
RESPIRATORY NOTE: Transferred pt to ICU via ambu bag 15L 100%. Placed pt back on vent with the same setting in ER. Pt is stable, no SOB or resp distress noted. FELIX Smith made aware. Will continue to monitor pt.
--- NOTE | 2018-09-14 12:00 | NUR ---
NURSE NOTES: Nunez catheter inserted using aseptic technique. Second nurse Mireya WASHINGTON witness.
--- NOTE | 2018-09-14 12:40 | Infectious Diseases Prog Note ---
Assessment/Plan Assessment/Plan Full consult dictated: A) 1) sepsis, fevers, leukocytosis, sirs 2) pneumonia, ua le neg, respiratory failure 3) allergies - nkda 4) pmh noted P) 1) zosyn and vancomycin 2) check cultures, labs and chest x-ray 3) d/w Dr. Carolina 4) thanks Subjective Allergies: Coded Allergies: No Known Allergies (Unverified , 02/04/17) Objective Vital Signs Last 24 Hour Vital Signs Date Time Temp Pulse Resp B/P (MAP) Pulse Ox O2 Delivery O2 Flow Rate FiO2 09/14/18 11:35 62 14 60 09/14/18 11:25 60 09/14/18 11:20 15.0 60 09/14/18 11:17 101.0 100 20 112/76 99 Mechanical Ventilator 100 09/14/18 11:00 98 16 100 09/14/18 10:53 101.0 98 17 101/70 98 Mechanical Ventilator 100 09/14/18 09:45 101.0 70 18 115/70 100 Mechanical Ventilator 100 09/14/18 09:19 15.0 100 09/14/18 09:16 120 14 09/14/18 08:50 57 16 100 09/14/18 08:45 101.0 127 25 135/79 96 Mechanical Ventilator 100 09/14/18 08:40 100 09/14/18 08:38 127 25 Mechanical Ventilator 100 09/14/18 08:28 121 18 129/75 (93) 93 Non-Rebreather 15.0 Height (Feet): 5 Height (Inches): 3.00 Weight (Pounds): 110 Microbiology Date/Time Source Procedure Growth Status 09/14/18 09:00 Rectum Received Laboratory Tests Test 09/14/18 08:30 09/14/18 08:50 09/14/18 10:15 09/14/18 11:00 White Blood Count 17.6 K/UL (4.8-10.8) H Red Blood Count 6.01 M/UL (4.20-5.40) H Hemoglobin 18.5 G/DL (12.0-16.0) *H Hematocrit 59.8 % (37.0-47.0) H Mean Corpuscular Volume 99 FL (80-99) Mean Corpuscular Hemoglobin 30.8 PG (27.0-31.0) Mean Corpuscular Hemoglobin Concent 30.9 G/DL (32.0-36.0) L Red Cell Distribution Width 14.9 % (11.6-14.8) H Platelet Count 278 K/UL (150-450) Mean Platelet Volume 8.9 FL (6.5-10.1) Neutrophils (%) (Auto) % (45.0-75.0) Lymphocytes (%) (Auto) % (20.0-45.0) Monocytes (%) (Auto) % (1.0-10.0) Eosinophils (%) (Auto) % (0.0-3.0) Basophils (%) (Auto) % (0.0-2.0) Differential Total Cells Counted 100 Neutrophils % (Manual) 77 % (45-75) H Lymphocytes % (Manual) 10 % (20-45) L Monocytes % (Manual) 5 % (1-10) Eosinophils % (Manual) 0 % (0-3) Basophils % (Manual) 0 % (0-2) Band Neutrophils 8 % (0-8) Nucleated Red Blood Cells 1 /100 WBC Platelet Estimate Adequate Platelet Morphology Normal Red Blood Cell Morphology Normal Sodium Level 167 MMOL/L (136-145) *H Potassium Level 3.9 MMOL/L (3.5-5.1) Chloride Level 129 MMOL/L (98-107) H Carbon Dioxide Level 32 MMOL/L (21-32) Anion Gap 8 mmol/L (5-15) Blood Urea Nitrogen 102 mg/dL (7-18) H Creatinine 1.7 MG/DL (0.55-1.30) H Estimat Glomerular Filtration Rate mL/min (>60) Glucose Level 326 MG/DL (74-106) H Lactic Acid Level 3.90 mmol/L (0.4-2.0) H 3.00 mmol/L (0.66-2.22) H Calcium Level 10.7 MG/DL (8.5-10.1) H Phosphorus Level 3.2 MG/DL (2.5-4.9) Magnesium Level 3.2 MG/DL (1.8-2.4) H Total Bilirubin 1.0 MG/DL (0.2-1.0) Aspartate Amino Transf (AST/SGOT) 14 U/L (15-37) L Alanine Aminotransferase (ALT/SGPT) 17 U/L (12-78) Alkaline Phosphatase 101 U/L (46-116) Total Creatine Kinase 292 U/L (26-308) Creatine Kinase MB < 0.5 NG/ML (0.0-3.6) Creatine Kinase MB Relative Index 0.1 Troponin I 0.007 ng/mL (0.000-0.056) Pro-B-Type Natriuretic Peptide 232 pg/mL (0-125) H Total Protein 8.7 G/DL (6.4-8.2) H Albumin 3.2 G/DL (3.4-5.0) L Globulin 5.5 g/dL Albumin/Globulin Ratio 0.6 (1.0-2.7) L Lipase 90 U/L (73-393) Urine Color Yellow Urine Appearance Clear Urine pH 5 (4.5-8.0) Urine Specific [place] 1.015 (1.005-1.035) Urine Protein 2+ (NEGATIVE) H Urine Glucose (UA) 4+ (NEGATIVE) H Urine Ketones 1+ (NEGATIVE) H Urine Blood 1+ (NEGATIVE) H Urine Nitrite Negative (NEGATIVE) Urine Bilirubin Negative (NEGATIVE) Urine Urobilinogen Normal MG/DL (0.0-1.0) Urine Leukocyte Esterase Negative (NEGATIVE) Urine RBC 2-4 /HPF (0 - 2) H Urine WBC 0-2 /HPF (0 - 2) Urine Squamous Epithelial Cells Few /LPF (NONE/OCC) Urine Amorphous Sediment Moderate /LPF (NONE) H Urine Bacteria Few /HPF (NONE) Urine Hyaline Casts 0-2 /LPF (NONE) H Arterial Blood pH 7.527 (7.350-7.450) Arterial Blood Partial Pressure CO2 31.2 mmHg (35.0-45.0) L Arterial Blood Partial Pressure O2 256.0 mmHg (75.0-100.0) H Arterial Blood HCO3 25.3 mmol/L (22.0-26.0) Arterial Blood Oxygen Saturation 99.2 % (95-100) Arterial Blood Base Excess 3.5 (-2-2) H Ray Test Positive Current Medications Medications (Trade) Dose Ordered Sig/Wayne Route PRN Reason Start Time Stop Time Status Last Admin Dose Admin Iopamidol (Isovue-300 100ml) 100 ml NOW PRN INJ Radiology Procedure 09/14/18 08:45 09/16/18 08:45 Milton Valladares MD Sep 14, 2018 12:40
[2018-09-14] MEDS ORDERED: LORazepam Inj 2mg/ml 1ml IV PRN (12:45)
[2018-09-14] MEDS ORDERED: Albuterol/Ipratropium 3ml neb HHN PRN (12:45)
[2018-09-14] MEDS ORDERED: Milk of Magnesia 30ml Ud ORAL PRN (12:45)
--- NOTE | 2018-09-14 12:51 | GI Initial Consult Note ---
History of Present Illness General Date patient seen: Sep 14, 2018 Time patient seen: 12:38 Reason for Hospitalization: Dyspnea/Respdistress Referring physician: BRIAN Reason for Consultation: G TUBE REPLACEMENT Present Illness HPI 77 year old female resident of [facility] presents today with reported AMS and SOB since last night. History of DM, HTN and left submandibular abscess. ROS limited, patient unable to provide any history. Patient is G Tube dependant and family reported theG Tube being "cracked." GT was assessed, appeared to have recently been changed. No erythema, no drainage or leakage noted around the site. Abdomen soft, non tender, non distended BS+ x4 quads. History of PEG back in January of 2017. Home Meds Active Scripts Trimethoprim/Sulfamethoxazole (Bactrim Ds Tablet) 1 Each Tablet, 1 TAB ORAL TWICE A DAY for 10 Days, #20 TAB Prov:Vicki Moore NP 08/21/17 Nitroglycerin (Nitroglycerin Patch) 1 Each Patch.td24, 1 PATCH TDERMAL Q24H for 90 Days, PATCH Prov:Jose Alejandro Connell M.D. 02/10/17 Metoprolol Tartrate (Metoprolol Tartrate) 25 Mg Tablet, 12.5 MG NG Q12HR for 90 Days, TAB Prov:Jose Alejandro Connell M.D. 02/10/17 Heparin Sod (Porcine) (HEPARIN SODIUM*) 5 000/1 Ml Vial, 5000 UNITS SUBQ EVERY 12 HOURS for 30 Days, VIAL Prov:Jose Alejandro Connell M.D. 02/10/17 Cholecalciferol (Vitamin D3)* (VITAMIN D*) 1,000 Unit Tablet, 5000 INTLU GT DAILY for 90 Days, TAB Prov:Jose Alejandro Connell M.D. 02/10/17 Aspirin* (ASPIRIN*) 81 Mg Tab.chew, 162 MG NG DAILY for 90 Days, TAB Prov:Jose Alejandro Connell M.D. 02/10/17 Amlodipine Besylate (Norvasc) 5 Mg Tablet, 5 MG NG BID for 90 Days, TAB Prov:Jose Alejandro Connell M.D. 02/10/17 Reported Medications Metformin Hcl* (METFORMIN HCL*) 500 Mg Tablet, 500 MG GT TWICE A DAY, TAB 8/2/19 Ranitidine Hcl* (ZANTAC*) 150 Mg Tablet, 150 MG GT DAILY, #30 TAB 0 Refills 09/14/18 Docusate Sodium* (DOCUSATE SODIUM*) 100 Mg Capsule, 100 MG GT TWICE A DAY, CAP 08/11/17 Cran/Vitc/Mannose/Inulin/Brom (UTI-STAT LIQUID) 3,875 Mg/30 Ml Liquid, 3875 MG GT DAILY for UTI PPX, ML 08/11/17 Na Phos,M-B/Na Phos,Di-Ba* (FLEET ENEMA*) 133 Ml Enema, 133 ML RECTAL DAILY PRN for Constipation, ML 0 Refills 08/11/17 Bisacodyl (BISACODYL) 10 Mg Supp.rect, 10 MG RC DAILY PRN for Constipation, SUPP 08/11/17 Ipratropium/Albuterol Sulfate (IPRAT-ALBUT 0.5-3(2.5) MG/3 ML) 3 Ml Ampul.neb, 3 ML IH Q6HR PRN for Shortness of Breath, EA 08/11/17 Cyclobenzaprine Hcl* (FLEXERIL*) 10 Mg Tablet, 5 MG ORAL THREE TIMES A DAY for muscle, TAB 08/11/17 Magnesium Hydroxide* (MILK OF MAGNESIA*) 400 Mg/5 Ml Oral.susp, 30 ML ORAL DAILY , ML 08/11/17 Multivitamin Liquid* (MULTI-DELYN*) 237 Ml Liquid, 5 ML GT DAILY, ML 08/11/17 Acetaminophen* (ACETAMINOPHEN*) 160 Mg/5 Ml Solution, 650 MG ORAL Q6H PRN for Mild Pain/Temp > 100.5, ML 08/11/17 Med list reviewed/reconciled: Yes Allergies: Coded Allergies: No Known Allergies (Unverified , 02/04/17) Patient History Limited by: medical condition History Provided By: Medical Record Pertinent Family History: HTN, diabetes Social History: Denies: smoking, alcohol use, drug use, other Review of Systems All Other Systems: limited Physical Exam Vital Signs Date Time Temp Pulse Resp B/P (MAP) Pulse Ox O2 Delivery O2 Flow Rate FiO2 09/14/18 08:28 121 18 129/75 (93) 93 Non-Rebreather 15.0 09/14/18 08:38 100 09/14/18 08:45 101.0 Sp02 EP Interpretation: reviewed, normal Labs Laboratory Tests Test 09/14/18 08:30 09/14/18 08:50 09/14/18 10:15 09/14/18 11:00 White Blood Count 17.6 K/UL (4.8-10.8) H Red Blood Count 6.01 M/UL (4.20-5.40) H Hemoglobin 18.5 G/DL (12.0-16.0) *H Hematocrit 59.8 % (37.0-47.0) H Mean Corpuscular Volume 99 FL (80-99) Mean Corpuscular Hemoglobin 30.8 PG (27.0-31.0) Mean Corpuscular Hemoglobin Concent 30.9 G/DL (32.0-36.0) L Red Cell Distribution Width 14.9 % (11.6-14.8) H Platelet Count 278 K/UL (150-450) Mean Platelet Volume 8.9 FL (6.5-10.1) Neutrophils (%) (Auto) % (45.0-75.0) Lymphocytes (%) (Auto) % (20.0-45.0) Monocytes (%) (Auto) % (1.0-10.0) Eosinophils (%) (Auto) % (0.0-3.0) Basophils (%) (Auto) % (0.0-2.0) Differential Total Cells Counted 100 Neutrophils % (Manual) 77 % (45-75) H Lymphocytes % (Manual) 10 % (20-45) L Monocytes % (Manual) 5 % (1-10) Eosinophils % (Manual) 0 % (0-3) Basophils % (Manual) 0 % (0-2) Band Neutrophils 8 % (0-8) Nucleated Red Blood Cells 1 /100 WBC Platelet Estimate Adequate Platelet Morphology Normal Red Blood Cell Morphology Normal Sodium Level 167 MMOL/L (136-145) *H Potassium Level 3.9 MMOL/L (3.5-5.1) Chloride Level 129 MMOL/L (98-107) H Carbon Dioxide Level 32 MMOL/L (21-32) Anion Gap 8 mmol/L (5-15) Blood Urea Nitrogen 102 mg/dL (7-18) H Creatinine 1.7 MG/DL (0.55-1.30) H Estimat Glomerular Filtration Rate mL/min (>60) Glucose Level 326 MG/DL (74-106) H Lactic Acid Level 3.90 mmol/L (0.4-2.0) H 3.00 mmol/L (0.66-2.22) H Calcium Level 10.7 MG/DL (8.5-10.1) H Phosphorus Level 3.2 MG/DL (2.5-4.9) Magnesium Level 3.2 MG/DL (1.8-2.4) H Total Bilirubin 1.0 MG/DL (0.2-1.0) Aspartate Amino Transf (AST/SGOT) 14 U/L (15-37) L Alanine Aminotransferase (ALT/SGPT) 17 U/L (12-78) Alkaline Phosphatase 101 U/L (46-116) Total Creatine Kinase 292 U/L (26-308) Creatine Kinase MB < 0.5 NG/ML (0.0-3.6) Creatine Kinase MB Relative Index 0.1 Troponin I 0.007 ng/mL (0.000-0.056) Pro-B-Type Natriuretic Peptide 232 pg/mL (0-125) H Total Protein 8.7 G/DL (6.4-8.2) H Albumin 3.2 G/DL (3.4-5.0) L Globulin 5.5 g/dL Albumin/Globulin Ratio 0.6 (1.0-2.7) L Lipase 90 U/L (73-393) Urine Color Yellow Urine Appearance Clear Urine pH 5 (4.5-8.0) Urine Specific [place] 1.015 (1.005-1.035) Urine Protein 2+ (NEGATIVE) H Urine Glucose (UA) 4+ (NEGATIVE) H Urine Ketones 1+ (NEGATIVE) H Urine Blood 1+ (NEGATIVE) H Urine Nitrite Negative (NEGATIVE) Urine Bilirubin Negative (NEGATIVE) Urine Urobilinogen Normal MG/DL (0.0-1.0) Urine Leukocyte Esterase Negative (NEGATIVE) Urine RBC 2-4 /HPF (0 - 2) H Urine WBC 0-2 /HPF (0 - 2) Urine Squamous Epithelial Cells Few /LPF (NONE/OCC) Urine Amorphous Sediment Moderate /LPF (NONE) H Urine Bacteria Few /HPF (NONE) Urine Hyaline Casts 0-2 /LPF (NONE) H Arterial Blood pH 7.527 (7.350-7.450) Arterial Blood Partial Pressure CO2 31.2 mmHg (35.0-45.0) L Arterial Blood Partial Pressure O2 256.0 mmHg (75.0-100.0) H Arterial Blood HCO3 25.3 mmol/L (22.0-26.0) Arterial Blood Oxygen Saturation 99.2 % (95-100) Arterial Blood Base Excess 3.5 (-2-2) H Ray Test Positive General Appearance: well appearing, no apparent distress, alert Head: normocephalic EENT: PERRL/EOMI, normal ENT inspection Neck: supple Respiratory: normal breath sounds, no respiratory distress Cardiovascular: normal rate Gastrointestinal: normal inspection, non tender, soft, normal bowel sounds, non -distended Rectal: deferred Genitourinary: no CVA tenderness Musculoskeletal: normal inspection, back normal Neurologic: alert Skin: normal inspection, normal color, no rash, warm/dry, palpation normal, well hydrated Lymphatic: normal inspection, no adenopathy Current Medications Current Medications Medications (Trade) Dose Ordered Sig/Wayne Route PRN Reason Start Time Stop Time Status Last Admin Dose Admin Iopamidol (Isovue-300 100ml) 100 ml NOW PRN INJ Radiology Procedure 09/14/18 08:45 09/16/18 08:45 GI: Plan Problems: (1) G tube feedings (2) Dehydration (3) Electrolyte imbalance (4) Sepsis Plan CXR reviewed, possible small right pleural effusion. no plans for GI procedures at this time, G tube recently changed. respiratory support maintain NPO today IV hydration electrolyte correction ppi fu ID recommendations Discussed with Dr. Brown. Thank you for this patient referral, we will follow. The patient was seen and examined at bedside and all new and available data was reviewed in the patients chart. I agree with the above findings, impression and plan. (Patient seen earlier today. Signature stamp does not reflect patient encounter time.). - MD Neema MarieChandler Regional Medical CenterFranck DRAWING SUPERVISOR Sep 14, 2018 12:51
--- NOTE | 2018-09-14 14:35 | Pulmonolgy Critical Care Note ---
Critical Care - Asmt/Plan Problems: (1) Endotracheally intubated (2) Ventilator dependence (3) Sepsis (4) Pneumonia (5) Electrolyte imbalance (6) Dehydration (7) Altered mental status (8) Hypernatremia (9) Respiratory failure (10) Lactic acid acidosis (11) H/O: CVA (cerebrovascular accident) (12) G tube feedings (13) KEL (acute kidney injury) Respiratory: monitor respiratory rate, adjust FIO2, ABG, other - HHN's, pulmonary hygiene Cardiac: continue to monitor HR/BP Renal: keep IV fluid - D5W@100 + add free H2O via GT, check electrolytes, other - F/U renal recs Infectious Disease: check cultures, continue antibiotics - Vanco/Zosyn per ID Gastrointestinal: other - hold TF's until stable then resume Endocrine: monitor blood sugar, continue sliding scale insulin Hematologic: monitor H/H Neurologic: keep patient comfortable - monitor MS, consider neuro eval and EEG Prophylaxis: Protonix, Heparin Disposition: keep in ICU Time Spent (Minutes): 40 Notes Reviewed: bell captain, renal, ID, other - ERMD Discussed with: nurses, consultants, other - FC Critical Care - Objective Last 24 Hour Vital Signs Date Time Temp Pulse Resp B/P (MAP) Pulse Ox O2 Delivery O2 Flow Rate FiO2 09/14/18 13:26 96 14 60 09/14/18 11:35 62 14 60 09/14/18 11:25 60 09/14/18 11:20 15.0 60 09/14/18 11:17 101.0 100 20 112/76 99 Mechanical Ventilator 100 09/14/18 11:00 98 16 100 09/14/18 10:53 101.0 98 17 101/70 98 Mechanical Ventilator 100 09/14/18 09:45 101.0 70 18 115/70 100 Mechanical Ventilator 100 09/14/18 09:19 15.0 100 09/14/18 09:16 120 14 09/14/18 08:50 57 16 100 09/14/18 08:45 101.0 127 25 135/79 96 Mechanical Ventilator 100 09/14/18 08:40 100 09/14/18 08:38 127 25 Mechanical Ventilator 100 09/14/18 08:28 121 18 129/75 (93) 93 Non-Rebreather 15.0 Status: obtunded - intubated Condition: critical HEENT: atraumatic, normocephalic, other - ETT OGT weak gag Lungs: rhonchi Heart: HR/BP stable Abdomen: soft, non-tender, active bowel sounds, feeding tube Extremities: no C/C/E Micro: Microbiology Date/Time Source Procedure Growth Status 09/14/18 09:00 Rectum Received Accucheck: 183 Blood Sugars: BS controlled Critical Care - Subjective ROS Limited/Unobtainable: Yes ICU Day: 1 Intubation Day: 1 Interval Events: 77 F NHR h/o dementia, CVA, GT, HTN, HL a/w AMS and SOB intubated in ER Na 167 Cr 1.7 LA elevated + hemoconcentration No gag in ER + faint gag now + F no C no further hx obtainable Condition: critical IV Access: peripheral - x2 EKG Rhythm: Sinus Rhythm FI02: 60 Vent Support Breath Rate: 14 Vent Support Mode: AC Vent Tidal Volume: 500 Sputum Amount: Small PEEP: 5.0 PIP: 23 Secretions: scant thick Fluids: D5W@100 Subjective: ARLETTE CXR: L RC inf, small L eff, ETT ET-Tube: 7.0 ET Position: 22 Labs: Laboratory Tests Test 09/14/18 08:30 09/14/18 08:50 09/14/18 10:15 09/14/18 11:00 White Blood Count 17.6 K/UL (4.8-10.8) H Red Blood Count 6.01 M/UL (4.20-5.40) H Hemoglobin 18.5 G/DL (12.0-16.0) *H Hematocrit 59.8 % (37.0-47.0) H Mean Corpuscular Volume 99 FL (80-99) Mean Corpuscular Hemoglobin 30.8 PG (27.0-31.0) Mean Corpuscular Hemoglobin Concent 30.9 G/DL (32.0-36.0) L Red Cell Distribution Width 14.9 % (11.6-14.8) H Platelet Count 278 K/UL (150-450) Mean Platelet Volume 8.9 FL (6.5-10.1) Neutrophils (%) (Auto) % (45.0-75.0) Lymphocytes (%) (Auto) % (20.0-45.0) Monocytes (%) (Auto) % (1.0-10.0) Eosinophils (%) (Auto) % (0.0-3.0) Basophils (%) (Auto) % (0.0-2.0) Differential Total Cells Counted 100 Neutrophils % (Manual) 77 % (45-75) H Lymphocytes % (Manual) 10 % (20-45) L Monocytes % (Manual) 5 % (1-10) Eosinophils % (Manual) 0 % (0-3) Basophils % (Manual) 0 % (0-2) Band Neutrophils 8 % (0-8) Nucleated Red Blood Cells 1 /100 WBC Platelet Estimate Adequate Platelet Morphology Normal Red Blood Cell Morphology Normal Sodium Level 167 MMOL/L (136-145) *H Potassium Level 3.9 MMOL/L (3.5-5.1) Chloride Level 129 MMOL/L (98-107) H Carbon Dioxide Level 32 MMOL/L (21-32) Anion Gap 8 mmol/L (5-15) Blood Urea Nitrogen 102 mg/dL (7-18) H Creatinine 1.7 MG/DL (0.55-1.30) H Estimat Glomerular Filtration Rate mL/min (>60) Glucose Level 326 MG/DL (74-106) H Lactic Acid Level 3.90 mmol/L (0.4-2.0) H 3.00 mmol/L (0.66-2.22) H Calcium Level 10.7 MG/DL (8.5-10.1) H Phosphorus Level 3.2 MG/DL (2.5-4.9) Magnesium Level 3.2 MG/DL (1.8-2.4) H Total Bilirubin 1.0 MG/DL (0.2-1.0) Aspartate Amino Transf (AST/SGOT) 14 U/L (15-37) L Alanine Aminotransferase (ALT/SGPT) 17 U/L (12-78) Alkaline Phosphatase 101 U/L (46-116) Total Creatine Kinase 292 U/L (26-308) Creatine Kinase MB < 0.5 NG/ML (0.0-3.6) Creatine Kinase MB Relative Index 0.1 Troponin I 0.007 ng/mL (0.000-0.056) Pro-B-Type Natriuretic Peptide 232 pg/mL (0-125) H Total Protein 8.7 G/DL (6.4-8.2) H Albumin 3.2 G/DL (3.4-5.0) L Globulin 5.5 g/dL Albumin/Globulin Ratio 0.6 (1.0-2.7) L Lipase 90 U/L (73-393) Urine Color Yellow Urine Appearance Clear Urine pH 5 (4.5-8.0) Urine Specific [place] 1.015 (1.005-1.035) Urine Protein 2+ (NEGATIVE) H Urine Glucose (UA) 4+ (NEGATIVE) H Urine Ketones 1+ (NEGATIVE) H Urine Blood 1+ (NEGATIVE) H Urine Nitrite Negative (NEGATIVE) Urine Bilirubin Negative (NEGATIVE) Urine Urobilinogen Normal MG/DL (0.0-1.0) Urine Leukocyte Esterase Negative (NEGATIVE) Urine RBC 2-4 /HPF (0 - 2) H Urine WBC 0-2 /HPF (0 - 2) Urine Squamous Epithelial Cells Few /LPF (NONE/OCC) Urine Amorphous Sediment Moderate /LPF (NONE) H Urine Bacteria Few /HPF (NONE) Urine Hyaline Casts 0-2 /LPF (NONE) H Arterial Blood pH 7.527 (7.350-7.450) Arterial Blood Partial Pressure CO2 31.2 mmHg (35.0-45.0) L Arterial Blood Partial Pressure O2 256.0 mmHg (75.0-100.0) H Arterial Blood HCO3 25.3 mmol/L (22.0-26.0) Arterial Blood Oxygen Saturation 99.2 % (95-100) Arterial Blood Base Excess 3.5 (-2-2) H Ray Test Positive Bimal Milner MD Sep 14, 2018 14:35
--- NOTE | 2018-09-14 14:36 | Emergency Room Report ---
History of Present Illness General Chief Complaint: Dyspnea/Respdistress Source: Medical Record, EMS Present Illness HPI Patient is a 77-year-old female brought in by EMS after increased difficulty with breathing. Patient gradual patient had been last seen last night with normal mental status. Patient had been noted to be Hungarian speaking. She was noted to be hypoxic and had diminished oxygen saturation was started on nonrebreather by facility staff. Patient was brought in by EMS Allergies: Coded Allergies: No Known Allergies (Unverified , 02/04/17) Patient History Now: No Nursing Documentation-[facility] Past Medical History: No History, Except For Hx Cardiac Problems: No - DYSPHAGIA, SUBMANDIBULAR ABSCESS Hx Hypertension: Yes Hx Diabetes: Yes Hx Cancer: No Hx Neurological Problems: Yes - episodes of confusion Hx Cerebrovascular Accident: Yes - TIA Hx Dementia: Yes Physical Exam Vital Signs Date Time Temp Pulse Resp B/P (MAP) Pulse Ox O2 Delivery O2 Flow Rate FiO2 09/14/18 08:28 121 18 129/75 (93) 93 Non-Rebreather 15.0 09/14/18 08:38 100 09/14/18 08:45 101.0 General Appearance: severe distress, other - obtunded, Chronically Ill Eyes: bilateral eye PERRL ENT: dry mucus membranes - poor dentition Neck: limited range of motion Respiratory: no respiratory distress, rales Cardiovascular #1: normal inspection, no edema Gastrointestinal: soft, other - gtube Musculoskeletal: normal inspection, back normal, digits/nails normal Neurologic: other - aphasic and nonresponsive to pain Skin: normal color Procedures Critical Care Time Critical Care Time Patient had a critical medical condition which untreated could potentially result in life or limb threatening injury. Total critical care time excluding procedures approximately 45 minutes. Intubation Intubation : Consent: Emergent Intubation Method: orotracheal Tube Size (cm): 7.0 Medications: Etomidate, Rocuronium Breath Sounds after Intubation: equal Intubation Complications: no complications Post Intubation Xray: Yes Attempts: One Patient Tolerated: Well Complications: None Medical Decision Making Diagnostic Impression: Primary Impression: Severe sepsis Additional Impressions: Hypernatremia Respiratory failure CVA, old, hemiparesis Dehydration ER Course Patient presented for increased respiratory distress and altered mental status. Differential diagnosis include was not limited to CVA, sepsis, pneumonia, electrolyte abnormality, among others. Because of complexity of patient's case laboratory testing and imaging studies were ordered. Patient was noted to be markedly obtunded and was noted to have initial GCS of 3 . Patient was intubated for airway protection. She was noted to be normotensive.Patient was noted to be unresponsive CT of the head read by radiology showed fairly extensive encephalomalacia involving the right parietal posterior frontal and temporal lobes as well as some abnormal calcifications. There is no evidence of acute intracranial hemorrhage or mass-effect. Old left frontal infarct. Laboratory testing showed markedly elevated BUN and creatinine. She was also noted to have marketed hyper natremia. Patient was started on IV fluids as well as IV antibiotics. Dr. Bonnie Carolina was contacted for [facility] for inpatient management due to prior admission Labs Test 09/14/18 08:30 09/14/18 08:50 09/14/18 10:15 09/14/18 11:00 White Blood Count 17.6 K/UL (4.8-10.8) Red Blood Count 6.01 M/UL (4.20-5.40) Hemoglobin 18.5 G/DL (12.0-16.0) Hematocrit 59.8 % (37.0-47.0) Mean Corpuscular Volume 99 FL (80-99) Mean Corpuscular Hemoglobin 30.8 PG (27.0-31.0) Mean Corpuscular Hemoglobin Concent 30.9 G/DL (32.0-36.0) Red Cell Distribution Width 14.9 % (11.6-14.8) Platelet Count 278 K/UL (150-450) Mean Platelet Volume 8.9 FL (6.5-10.1) Neutrophils (%) (Auto) % (45.0-75.0) Lymphocytes (%) (Auto) % (20.0-45.0) Monocytes (%) (Auto) % (1.0-10.0) Eosinophils (%) (Auto) % (0.0-3.0) Basophils (%) (Auto) % (0.0-2.0) Differential Total Cells Counted 100 Neutrophils % (Manual) 77 % (45-75) Lymphocytes % (Manual) 10 % (20-45) Monocytes % (Manual) 5 % (1-10) Eosinophils % (Manual) 0 % (0-3) Basophils % (Manual) 0 % (0-2) Band Neutrophils 8 % (0-8) Nucleated Red Blood Cells 1 /100 WBC Platelet Estimate Adequate Platelet Morphology Normal Red Blood Cell Morphology Normal Sodium Level 167 MMOL/L (136-145) Potassium Level 3.9 MMOL/L (3.5-5.1) Chloride Level 129 MMOL/L (98-107) Carbon Dioxide Level 32 MMOL/L (21-32) Anion Gap 8 mmol/L (5-15) Blood Urea Nitrogen 102 mg/dL (7-18) Creatinine 1.7 MG/DL (0.55-1.30) Estimat Glomerular Filtration Rate mL/min (>60) Glucose Level 326 MG/DL (74-106) Calcium Level 10.7 MG/DL (8.5-10.1) Phosphorus Level 3.2 MG/DL (2.5-4.9) Magnesium Level 3.2 MG/DL (1.8-2.4) Total Bilirubin 1.0 MG/DL (0.2-1.0) Aspartate Amino Transf (AST/SGOT) 14 U/L (15-37) Alanine Aminotransferase (ALT/SGPT) 17 U/L (12-78) Alkaline Phosphatase 101 U/L (46-116) Total Creatine Kinase 292 U/L (26-308) Creatine Kinase MB < 0.5 NG/ML (0.0-3.6) Creatine Kinase MB Relative Index 0.1 Troponin I 0.007 ng/mL (0.000-0.056) Pro-B-Type Natriuretic Peptide 232 pg/mL (0-125) Total Protein 8.7 G/DL (6.4-8.2) Albumin 3.2 G/DL (3.4-5.0) Globulin 5.5 g/dL Albumin/Globulin Ratio 0.6 (1.0-2.7) Lipase 90 U/L (73-393) Urine Color Yellow Urine Appearance Clear Urine pH 5 (4.5-8.0) Urine Specific [place] 1.015 (1.005-1.035) Urine Protein 2+ (NEGATIVE) Urine Glucose (UA) 4+ (NEGATIVE) Urine Ketones 1+ (NEGATIVE) Urine Blood 1+ (NEGATIVE) Urine Nitrite Negative (NEGATIVE) Urine Bilirubin Negative (NEGATIVE) Urine Urobilinogen Normal MG/DL (0.0-1.0) Urine Leukocyte Esterase Negative (NEGATIVE) Urine RBC 2-4 /HPF (0 - 2) Urine WBC 0-2 /HPF (0 - 2) Urine Squamous Epithelial Cells Few /LPF (NONE/OCC) Urine Amorphous Sediment Moderate /LPF (NONE) Urine Bacteria Few /HPF (NONE) Urine Hyaline Casts 0-2 /LPF (NONE) Lactic Acid Level 3.00 mmol/L (0.66-2.22) Arterial Blood pH 7.527 (7.350-7.450) Arterial Blood Partial Pressure CO2 31.2 mmHg (35.0-45.0) Arterial Blood Partial Pressure O2 256.0 mmHg (75.0-100.0) Arterial Blood HCO3 25.3 mmol/L (22.0-26.0) Arterial Blood Oxygen Saturation 99.2 % (95-100) Arterial Blood Base Excess 3.5 (-2-2) Ray Test Positive Last Vital Signs Date Time Temp Pulse Resp B/P (MAP) Pulse Ox O2 Delivery O2 Flow Rate FiO2 09/14/18 13:26 96 14 60 09/14/18 11:20 15.0 09/14/18 11:17 101.0 112/76 99 Mechanical Ventilator Status: improved Disposition: ADMITTED INPATIENT Condition: Serious Referrals: Yamileth Yates MD (PCP) Osei Pendleton MD Sep 14, 2018 14:36
--- NOTE | 2018-09-14 15:36 | Consultation ---
History of Present Illness General Date patient seen: Sep 14, 2018 Chief Complaint: Dyspnea/Respdistress Referring physician: BRIAN Reason for Consultation: G TUBE REPLACEMENT Present Illness HPI This is a 77-year-old female long term resident who is care dependent with tracheostomy and PEG with multiple number of medical comorbidities who presented to [facility] emergency room for evaluation of shortness of breath and respiratory distress at which time she was placed ventilatory support found to be septic and admitted to the intensive care unit for further care and management. On admission surgery called to evaluate and assist with care's history of potential PEG issues, leukocytosis, abnormal LFTs, sepsis. Patient seen, patient evaluate, chart reviewed. Patient I will provide history given medical condition Allergies: Coded Allergies: No Known Allergies (Unverified , 02/04/17) Medication History Scheduled Amlodipine Besylate (Norvasc), 5 MG NG BID Aspirin* (Aspirin*), 162 MG NG DAILY Cholecalciferol (Vitamin D3)* (Vitamin D*), 5,000 INTLU GT DAILY Cran/Vitc/Mannose/Inulin/Brom (Uti-Stat Liquid), 3,875 MG GT DAILY, (Reported) Cyclobenzaprine Hcl* (Flexeril*), 5 MG ORAL THREE TIMES A DAY, (Reported) Docusate Sodium* (Docusate Sodium*), 100 MG GT TWICE A DAY, (Reported) Heparin Sod (Porcine) (Heparin Sodium*), 5,000 UNITS SUBQ EVERY 12 HOURS Magnesium Hydroxide* (Milk Of Magnesia*), 30 ML ORAL DAILY, (Reported) Metformin Hcl* (Metformin Hcl*), 500 MG GT TWICE A DAY, (Reported) Metoprolol Tartrate (Metoprolol Tartrate), 12.5 MG NG Q12HR Multivitamin Liquid* (Multi-Delyn*), 5 ML GT DAILY, (Reported) Nitroglycerin (Nitroglycerin Patch), 1 PATCH TDERMAL Q24H Ranitidine Hcl* (Zantac*), 150 MG GT DAILY, (Reported) Trimethoprim/Sulfamethoxazole (Bactrim Ds Tablet), 1 TAB ORAL TWICE A DAY Scheduled PRN Acetaminophen* (Acetaminophen*), 650 MG ORAL Q6H PRN for Mild Pain/Temp > 100.5, (Reported) Bisacodyl (Bisacodyl), 10 MG RC DAILY PRN for Constipation, (Reported) Ipratropium/Albuterol Sulfate (Iprat-Albut 0.5-3(2.5) Mg/3 Ml), 3 ML IH Q6HR PRN for Shortness of Breath, (Reported) Na Phos,M-B/Na Phos,Di-Ba* (Fleet Enema*), 133 ML RECTAL DAILY PRN for Constipation, (Reported) Patient History Limited by: medical condition History Provided By: Medical Record, PMD Healthcare decision maker Resuscitation status Advanced Directive on File Past Medical/Surgical History Past Medical/Surgical History: (1) Hypernatremia (2) Abscess (3) HTN (hypertension) (4) Toxic metabolic encephalopathy (5) Hyperglycemia due to type 2 diabetes mellitus (6) Hypokalemia (7) Hypercalcemia (8) Elevated troponin (9) Encounter for PEG (percutaneous endoscopic gastrostomy) (10) PNA (pneumonia) (11) Upper sacral area unstageable pressure ulcer (12) Large ischemic R MCA stroke (13) Perineal area gertrudis rashes extending to left and right buttocks (14) Right lateral malleolus stage I pressure ulcer (15) Rash (16) MRSA infection (17) G tube feedings (18) Dehydration (19) Electrolyte imbalance (20) Sepsis (21) Respiratory failure (22) Altered mental status (23) H/O: CVA (cerebrovascular accident) (24) Hypernatremia (25) Pneumonia (26) Lactic acid acidosis (27) KEL (acute kidney injury) (28) Ventilator dependence (29) Endotracheally intubated Review of Systems All Other Systems: negative except mentioned in HPI Physical Exam General Appearance: mild distress Lines, tubes and drains: peripheral HEENT: atraumatic, anicteric Neck: trach Respiratory/Chest: on vent Cardiovascular/Chest: regular rhythm, tachycardia Abdomen: soft, no organomegaly, feeding tube Extremities: non-tender Skin Exam: warm/dry Neurologic: unresponsiveness Last 24 Hour Vital Signs Date Time Temp Pulse Resp B/P (MAP) Pulse Ox O2 Delivery O2 Flow Rate FiO2 09/14/18 13:26 96 14 60 09/14/18 11:35 62 14 60 09/14/18 11:25 60 09/14/18 11:20 15.0 60 09/14/18 11:17 101.0 100 20 112/76 99 Mechanical Ventilator 100 09/14/18 11:00 98 16 100 09/14/18 10:53 101.0 98 17 101/70 98 Mechanical Ventilator 100 09/14/18 09:45 101.0 70 18 115/70 100 Mechanical Ventilator 100 09/14/18 09:19 15.0 100 09/14/18 09:16 120 14 09/14/18 08:50 57 16 100 09/14/18 08:45 101.0 127 25 135/79 96 Mechanical Ventilator 100 09/14/18 08:40 100 09/14/18 08:38 127 25 Mechanical Ventilator 100 09/14/18 08:28 121 18 129/75 (93) 93 Non-Rebreather 15.0 Laboratory Tests Test 09/14/18 08:30 09/14/18 08:50 09/14/18 10:15 09/14/18 11:00 White Blood Count 17.6 K/UL (4.8-10.8) H Red Blood Count 6.01 M/UL (4.20-5.40) H Hemoglobin 18.5 G/DL (12.0-16.0) *H Hematocrit 59.8 % (37.0-47.0) H Mean Corpuscular Volume 99 FL (80-99) Mean Corpuscular Hemoglobin 30.8 PG (27.0-31.0) Mean Corpuscular Hemoglobin Concent 30.9 G/DL (32.0-36.0) L Red Cell Distribution Width 14.9 % (11.6-14.8) H Platelet Count 278 K/UL (150-450) Mean Platelet Volume 8.9 FL (6.5-10.1) Neutrophils (%) (Auto) % (45.0-75.0) Lymphocytes (%) (Auto) % (20.0-45.0) Monocytes (%) (Auto) % (1.0-10.0) Eosinophils (%) (Auto) % (0.0-3.0) Basophils (%) (Auto) % (0.0-2.0) Differential Total Cells Counted 100 Neutrophils % (Manual) 77 % (45-75) H Lymphocytes % (Manual) 10 % (20-45) L Monocytes % (Manual) 5 % (1-10) Eosinophils % (Manual) 0 % (0-3) Basophils % (Manual) 0 % (0-2) Band Neutrophils 8 % (0-8) Nucleated Red Blood Cells 1 /100 WBC Platelet Estimate Adequate Platelet Morphology Normal Red Blood Cell Morphology Normal Sodium Level 167 MMOL/L (136-145) *H Potassium Level 3.9 MMOL/L (3.5-5.1) Chloride Level 129 MMOL/L (98-107) H Carbon Dioxide Level 32 MMOL/L (21-32) Anion Gap 8 mmol/L (5-15) Blood Urea Nitrogen 102 mg/dL (7-18) H Creatinine 1.7 MG/DL (0.55-1.30) H Estimat Glomerular Filtration Rate mL/min (>60) Glucose Level 326 MG/DL (74-106) H Lactic Acid Level 3.90 mmol/L (0.4-2.0) H 3.00 mmol/L (0.66-2.22) H Calcium Level 10.7 MG/DL (8.5-10.1) H Phosphorus Level 3.2 MG/DL (2.5-4.9) Magnesium Level 3.2 MG/DL (1.8-2.4) H Total Bilirubin 1.0 MG/DL (0.2-1.0) Aspartate Amino Transf (AST/SGOT) 14 U/L (15-37) L Alanine Aminotransferase (ALT/SGPT) 17 U/L (12-78) Alkaline Phosphatase 101 U/L (46-116) Total Creatine Kinase 292 U/L (26-308) Creatine Kinase MB < 0.5 NG/ML (0.0-3.6) Creatine Kinase MB Relative Index 0.1 Troponin I 0.007 ng/mL (0.000-0.056) Pro-B-Type Natriuretic Peptide 232 pg/mL (0-125) H Total Protein 8.7 G/DL (6.4-8.2) H Albumin 3.2 G/DL (3.4-5.0) L Globulin 5.5 g/dL Albumin/Globulin Ratio 0.6 (1.0-2.7) L Lipase 90 U/L (73-393) Urine Color Yellow Urine Appearance Clear Urine pH 5 (4.5-8.0) Urine Specific [place] 1.015 (1.005-1.035) Urine Protein 2+ (NEGATIVE) H Urine Glucose (UA) 4+ (NEGATIVE) H Urine Ketones 1+ (NEGATIVE) H Urine Blood 1+ (NEGATIVE) H Urine Nitrite Negative (NEGATIVE) Urine Bilirubin Negative (NEGATIVE) Urine Urobilinogen Normal MG/DL (0.0-1.0) Urine Leukocyte Esterase Negative (NEGATIVE) Urine RBC 2-4 /HPF (0 - 2) H Urine WBC 0-2 /HPF (0 - 2) Urine Squamous Epithelial Cells Few /LPF (NONE/OCC) Urine Amorphous Sediment Moderate /LPF (NONE) H Urine Bacteria Few /HPF (NONE) Urine Hyaline Casts 0-2 /LPF (NONE) H Arterial Blood pH 7.527 (7.350-7.450) Arterial Blood Partial Pressure CO2 31.2 mmHg (35.0-45.0) L Arterial Blood Partial Pressure O2 256.0 mmHg (75.0-100.0) H Arterial Blood HCO3 25.3 mmol/L (22.0-26.0) Arterial Blood Oxygen Saturation 99.2 % (95-100) Arterial Blood Base Excess 3.5 (-2-2) H Ray Test Positive Microbiology Date/Time Source Procedure Growth Status 09/14/18 09:00 Rectum Received Height (Feet): 5 Height (Inches): 3.00 Weight (Pounds): 110 Medications Current Medications Medications (Trade) Dose Ordered Sig/Wayne Route PRN Reason Start Time Stop Time Status Last Admin Dose Admin Acetaminophen (Tylenol) 650 mg Q4H PRN ORAL FEVER 09/14/18 12:45 10/14/18 12:44 Albuterol/ Ipratropium (Albuterol/ Ipratropium) 3 ml Q6H PRN HHN Shortness of Breath 09/14/18 12:45 09/19/18 12:44 Albuterol/ Ipratropium (Albuterol/ Ipratropium) 3 ml Q6HRT HHN 09/14/18 19:00 09/19/18 18:59 Bisacodyl (Dulcolax) 10 mg DAILYPRN PRN RECTAL Constipation 09/14/18 12:45 10/14/18 12:44 Dextrose 1,000 ml @ 100 mls/hr Q10H IV 09/14/18 13:00 10/14/18 12:59 09/14/18 13:16 Dextrose (Dextrose 50%) 25 ml Q30M PRN IV Hypoglycemia 09/14/18 12:45 10/14/18 12:44 Dextrose (Dextrose 50%) 50 ml Q30M PRN IV Hypoglycemia 09/14/18 12:45 10/14/18 12:44 Diphenhydramine HCl (Benadryl) 25 mg Q6H PRN ORAL Itching/Pruritis 09/14/18 12:45 10/14/18 12:44 Docusate Sodium (Colace) 100 mg EVERY 12 HOURS ORAL 09/14/18 21:00 10/14/18 20:59 Heparin Sodium (Porcine) (Heparin 5000 units/ml) 5,000 units EVERY 12 HOURS SUBQ 09/14/18 21:00 10/14/18 20:59 Insulin Aspart (NovoLOG) Q6HR SUBQ 09/14/18 16:00 10/14/18 15:59 Lorazepam (Ativan 2mg/ml 1ml) 0.5 mg Q4H PRN IV For Anxiety 09/14/18 12:45 09/21/18 12:44 Magnesium Hydroxide (Mom) 30 ml HSPRN PRN ORAL Constipation 09/14/18 12:45 10/14/18 12:44 Ondansetron HCl (Zofran) 4 mg Q6H PRN IVP Nausea & Vomiting 09/14/18 12:45 10/14/18 12:44 Pantoprazole (Protonix) 40 mg DAILY IV 09/15/18 09:00 10/15/18 08:59 Piperacillin Sod/ Tazobactam Sod 3.375 gm/Dextrose 100 ml @ 25 mls/hr EVERY 8 HOURS IVPB 09/14/18 15:00 09/19/18 14:59 09/14/18 14:57 Vancomycin HCl (Vanco rx to dose) 1 ea DAILY PRN MISC Per rx protocol 09/14/18 12:45 10/14/18 12:44 Assessment/Plan Problem List: (1) Sepsis Assessment & Plan: 77-year-old female presented to [facility] in distress found to be septic with leukocytosis tachycardia and requiring ventilatory support. Patient's labs noted and significant abnormal. Lactic acidosis. Severe dehydration. Admit to intensive care unit IV fluids Vent support IV antibiotics as per infectious disease Trend labs A.m. chest x-ray We will follow with recommendations Thank you for allowing me to participate in patient's care ICD Codes: A41.9 - Sepsis, unspecified organism SNOMED: 61778753 (2) Lactic acid acidosis ICD Codes: E87.2 - Acidosis SNOMED: 69244906 (3) Upper sacral area unstageable pressure ulcer (4) G tube feedings ICD Codes: Z93.1 - Gastrostomy status SNOMED: 322675314, 854852385, 892891458 (5) Respiratory failure ICD Codes: J96.90 - Respiratory failure, unspecified, unspecified whether with hypoxia or hypercapnia SNOMED: 418463699 (6) Ventilator dependence ICD Codes: Z99.11 - Dependence on respirator [ventilator] status SNOMED: 629236793 Akhil Jackson Sep 14, 2018 15:35
[2018-09-14] MEDS: NovoLOG Insulin Flexpen SUBQ SCH ×2 (15:54→23:35)
--- NOTE | 2018-09-14 16:00 | NUR ---
NURSE NOTES: Patient blood pressure 110/59, HR 94, SpO2 98%, and RR 18. Patient still does not respond to voice or pain. Patient mentation has not improved. Will continue to monitor. Addendum: 09/14/18 at 2020 by Sarah Quinonez RN FiO2 reduced to 50%. Patient tolerating ventilator setting with SpO2 98%.
[2018-09-14 16:35] LABS: BASOPHILS % (AUTO) 0.5 % (0.0-2.0); HEMATOCRIT 47.9 % (37.0-47.0); HEMOGLOBIN 15.4 G/DL (12.0-16.0); LYMPHOCYTES % (AUTO) 12.2 % (20.0-45.0); MEAN CORPUSCULAR VOLUME 97 FL (80-99); MONOCYTES % (AUTO) 2.9 % (1.0-10.0); NEUTROPHILS % (AUTO) 84.4 % (45.0-75.0); PLATELET COUNT 188 K/UL (150-450); RED BLOOD COUNT 4.93 M/UL (4.20-5.40); RED CELL DISTRIBUTION WIDTH 14.4 % (11.6-14.8); WHITE BLOOD COUNT 14.1 K/UL (4.8-10.8)
[2018-09-14 16:58] LABS: ALANINE AMINOTRANSFERASE 15 U/L (12-78); ALBUMIN 2.6 G/DL (3.4-5.0); ALBUMIN/GLOBULIN RATIO 0.6 (1.0-2.7); ALKALINE PHOSPHATASE 77 U/L (46-116); ANION GAP 4 mmol/L (5-15); ASPARTATE AMINO TRANSFERASE 17 U/L (15-37); BILIRUBIN,TOTAL 1.9 MG/DL (0.2-1.0); BLOOD UREA NITROGEN 90 mg/dL (7-18); CALCIUM 9.4 MG/DL (8.5-10.1); CARBON DIOXIDE 29 MMOL/L (21-32); CHLORIDE 126 MMOL/L (98-107); CREATININE 1.6 MG/DL (0.55-1.30); POTASSIUM 3.4 MMOL/L (3.5-5.1); SODIUM 159 MMOL/L (136-145)
[2018-09-14 17:00] LABS: BILIRUBIN,DIRECT 0.3 MG/DL (0.0-0.3)
--- NOTE | 2018-09-14 17:11 | NUR ---
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 POLST completed 04/10/17 by patient's brother Ryan Archibald indicates Full Code, Full treatment and long-term artificial nutrition. SW spoke with Ryan [phone] who states he is the primary contact for patient. Patient does have a son Osei Doe [phone] he looks to his Uncle for decision making for patient. SW addressed code status with Brother who wishes for Full Code and aggressive treatment. Patient will continue to require care home placement upon discharge.
--- NOTE | 2018-09-14 17:29 | Diagnostic Imaging Report ---
Indication: Acute renal failure Technique: Grayscale and duplex images of the kidneys, retroperitoneum, and bladder were obtained. Comparison: none Findings: Right kidney measures 10.9 cm in length. Left kidney measures 10.9 cm in length. Both kidneys demonstrate normal echogenicity. No hydronephrosis. No focal abnormality. Normal inferior vena cava. Bladder demonstrates a Nunez catheter. There is 55 mL bladder volume is likely presence of the Nunez catheter. Impression: Negative for hydronephrosis Nunez catheter in place. 55 mL bladder volume despite Nunez catheter.
--- NOTE | 2018-09-14 18:34 | NUR ---
NURSE NOTES: Notified Dr Carolina about serum potassium of 3.4 via telephone call. 40mEq IV KCl ordered. Order read back and verified. Order placed. Addendum: 09/14/18 at 2017 by Sarah Quinonez RN Dr Carolina also notified regarding lactic acid of 3.3. No new orders received. Will continue to repeat Lactic every 6 hours per protocol. Next Lactic acid to be drawn at 2100.
--- NOTE | 2018-09-14 19:00 | NUR ---
CASE MANAGEMENT: REVIEW 77Y/F BIBA FROM [facility] CC: SOB . SI: DYSPNEA . RESP DISTRESS . DEHYDRATION T 101.0 HR 127 RR 25 BP 129/75 SAT 93% MECH VENT FIO2 100 WBC 17.6 H/H 18.5/59.8 NA 159 K 3.4 LACTIC ACID 3.90 IS: VANCO IV X1 NS IVF X1 TYLENOL 650 RECTAL X1 PATIENT ADMITTED TO ICU 09/14/2018 DCP: PATIENT IS FROM [facility]
[2018-09-14] MEDS: Albuterol/Ipratropium 3ml neb HHN SCH (19:20)
--- NOTE | 2018-09-14 19:45 | NUR ---
HAND-OFF: Report given to FELIX Haq. Patient blood pressure 126/56. Patient HR 85. patient remains unresponsive. patient remains on ventilator with settings unchanged. Endorsed to follow up.
--- NOTE | 2018-09-14 19:50 | NUR ---
NURSE NOTES: PATIENT NO RESPONSE TO VERBAL AND TACTILE STIMULI, ON ETT TO VENT AC 14/TV 500/FIO2 50%/PEEP 5, O2 SATURATION 100% NOTED AT THIS TIME, ABDOMEN SOFT, G TUBE INTACT AND PATENT, KEPT NPO ORDERED, F/C INTACT AND PATENT, YELLOW URINE OUTED GRAVITY, PERIPHERAL LINE TO RIGHT HAND 20G AND FORE ARM 20G, INTACT AND PATENT, ONGOING D5W AT 100ML/HR, MADE LOWER BED POSITION, ON BED ALARM, PROVIDED CALL LIGHT WITHIN REACH, WILL CONTINUE TO MONITOR.
[2018-09-14] MEDS ORDERED: NS 275ml ONE (20:03)
[2018-09-14] MEDS ORDERED: Tubing IV Secondary IV ONE (20:03)
[2018-09-14] MEDS: Docusate 100mg cap ORAL SCH (20:36)
[2018-09-14] MEDS: Heparin 5000 units/ml inj SUBQ SCH (20:37)
--- NOTE | 2018-09-14 21:30 | NUR ---
NURSE NOTES: PT'S BROTHERS VISITED, STAYED AT BEDSIDE.
--- NOTE | 2018-09-14 22:10 | NUR ---
NURSE NOTES: REPOSITIONED, ORAL CARE WAS DONE, NO DISTRESS NOTED, WILL CONTINUE TO MONITOR.
--- NOTE | 2018-09-14 23:57 | NUR ---
NURSE NOTES: CALLED DR. ROSAS REGARDING BS 471MG/DL NOTED THAT EXCHANGER WAS AWARE, WILL PAGE DR. COYNE.
[2018-09-15] VITALS (25 sets, daily range): BP systolic 82–135; BP diastolic 34–64
--- NOTE | 2018-09-15 00:13 | NUR ---
NURSE NOTES: TEMP 100.8F NOTED, APPLIED COOLING MEASURE AND GIVEN TYLENOL 650MG VIA G TUBE PRN ORDERED, WILL CONTINUE TO MONITOR.
--- NOTE | 2018-09-15 00:15 | Consultation ---
DATE OF CONSULTATION: 09/14/2018 NEPHROLOGY CONSULTATION CONSULTING PHYSICIAN: Ramez Hardin M.D. REFERRING PHYSICIAN: Yamileth Yates M.D. REASON FOR CONSULTATION: Renal failure and hypernatremia. HISTORY OF PRESENT ILLNESS: This is a 77-year-old female, who was brought in by paramedics for difficulty breathing. She was intubated and admitted to the intensive care unit with diagnosis of pneumonia. She is unable to provide any history. History was obtained from the chart. Dr. Vernon was asked to see the patient for hypernatremia with a serum sodium of 167, also renal failure with BUN of 102 and creatinine 1.7 and I am covering for him today. PAST MEDICAL HISTORY: The patient has history of dysphagia, submandibular abscess, history of diabetes, hypertension, history of TIA, and dementia. MEDICATIONS: Reviewed in the EMR. ALLERGIES: No known drug allergy. SOCIAL HISTORY: Unobtainable. REVIEW OF SYSTEMS: Unobtainable. PHYSICAL EXAMINATION: GENERAL: The patient is an elderly female, in no acute distress. She is orally intubated. VITAL SIGNS: Blood pressure is 112/76, pulse is 100, respiratory rate 20, and temperature of 101. HEENT: Somewhat pale conjunctivae. Anicteric sclerae. NECK: Supple. LUNGS: Coarse breath sounds bilaterally. HEART: S1, S2. ABDOMEN: Soft and nontender. The patient has G-tube in place. EXTREMITIES: No cyanosis or edema. LABORATORY FINDINGS: The chemistry panel shows a sodium of 167, potassium 3.9, chloride 129, CO2 32, BUN 102, and creatinine 1.7. Blood sugar is 326. Calcium is 10.7. Albumin is 3.2. CBC shows a WBC of 17,600, hematocrit was 59.8, hemoglobin is 18.5, and platelets 279,000. The UA shows 2 to 4 rbc's per high-power field with 2+ protein. ABG showed the pH of 7.52, pCO2 of 31, and pO2 of 256. ASSESSMENT: This is a 77-year-old female, who was admitted with diagnosis of pneumonia and intubated for respiratory failure. Nephrology consultation was requested for hypernatremia and renal failure. The renal failure is likely acute as a result of volume depletion. Her serum sodium is 167 and based on her weight of 49.9 kilograms, her free water deficit is about 5.8 liters. In addition to acute renal failure from prerenal azotemia, she may have some underlying chronic kidney disease. She does have proteinuria, which indicates some CKD. Also, her risk factors include diabetes, hypertension, and her age. So, I am assuming, she has some nephrosclerosis as well. PLAN: The patient is currently getting D5W at 100 mL an hour. This is somewhat lower than the desired amount of correction, but on the other hand, she is diabetic and Increasing the D5 may increase her blood sugars. I instructed the RN to start the patient on water flushes through the G-tube at 250 mL every 4 hours. As the serum sodium comes down, we can then decrease the amount of IV fluids. The patient would have a renal ultrasound to make sure there is not any obstruction and also look at the echogenicity of the kidneys. She is being treated with antibiotics and vent support. I also discussed the case with the RN as well as Dr. Milner. Thank you very much for this consultation. Ramez Hardin M.D. DR: RACHEL JOB#: [id number] CC: CHRIS
[2018-09-15] MEDS: Albuterol/Ipratropium 3ml neb HHN SCH ×4 (00:41→19:27)
--- NOTE | 2018-09-15 01:58 | NUR ---
NURSE NOTES: PATIENT OBTUNDED, BS 399MG/DL NOTED AT THIS TIME, WILL CONTINUE TO MONITOR.
--- NOTE | 2018-09-15 03:45 | NUR ---
NURSE NOTES: MORNING CARE AND ORAL CARE WAS DONE, NO BOWEL MOVEMENT STATUS.
[2018-09-15] MEDS: NovoLOG Insulin Flexpen SUBQ SCH ×4 (05:35→23:52)
--- NOTE | 2018-09-15 06:00 | NUR ---
NURSE NOTES: NO ACUTE DISTRESS NOTED AT THIS SHIFT.
[2018-09-15 06:52] LABS: ALANINE AMINOTRANSFERASE 12 U/L (12-78); ALBUMIN 2.4 G/DL (3.4-5.0); ALKALINE PHOSPHATASE 80 U/L (46-116); ANION GAP 13 mmol/L (5-15); ASPARTATE AMINO TRANSFERASE 19 U/L (15-37); BILIRUBIN,DIRECT 0.4 MG/DL (0.0-0.3); BILIRUBIN,TOTAL 1.9 MG/DL (0.2-1.0); BLOOD UREA NITROGEN 65 mg/dL (7-18); CALCIUM 8.8 MG/DL (8.5-10.1); CARBON DIOXIDE 24 MMOL/L (21-32); CHLORIDE 117 MMOL/L (98-107); CREATININE 1.5 MG/DL (0.55-1.30); POTASSIUM 3.6 MMOL/L (3.5-5.1); SODIUM 154 MMOL/L (136-145)
--- NOTE | 2018-09-15 06:57 | NUR ---
RESPIRATORY NOTES: Received patient on ACVC RR 14, VT 500, FIO2 40%, PEEP +5. ETT is 22cm at the lip, secured with anchorfast. Bilateral breath sounds reveal rhonchi. Suctioned minimal amount of haas secretions through the ETT and bloody secretions orally. Patient is currently obtundent. Alarms are on and audible. Vent plugged into red outlet. Will continue to monitor throughout the day. Addendum: 09/15/18 at 0848 by PETER REA RT Patient intubated with 7.5 ETT Addendum: 09/15/18 at 1538 by PETER REA RT Patient intubated with 7.0 ett, not 7.5
[2018-09-15 07:04] LABS: ALANINE AMINOTRANSFERASE 7 U/L (12-78); ALBUMIN 2.4 G/DL (3.4-5.0); ALBUMIN/GLOBULIN RATIO 0.5 (1.0-2.7); ALKALINE PHOSPHATASE 79 U/L (46-116); ANION GAP 11 mmol/L (5-15); ASPARTATE AMINO TRANSFERASE 17 U/L (15-37); BILIRUBIN,TOTAL 2.1 MG/DL (0.2-1.0); BLOOD UREA NITROGEN 60 mg/dL (7-18); CALCIUM 9.4 MG/DL (8.5-10.1); CARBON DIOXIDE 26 MMOL/L (21-32); CHLORIDE 116 MMOL/L (98-107); CREATININE 1.3 MG/DL (0.55-1.30); POTASSIUM 3.7 MMOL/L (3.5-5.1); SODIUM 153 MMOL/L (136-145)
[2018-09-15 07:08] LABS: BASOPHILS % (AUTO) 0.3 % (0.0-2.0); HEMATOCRIT 47.6 % (37.0-47.0); HEMOGLOBIN 14.8 G/DL (12.0-16.0); LYMPHOCYTES % (AUTO) 15.6 % (20.0-45.0); MEAN CORPUSCULAR VOLUME 100 FL (80-99); MONOCYTES % (AUTO) 2.5 % (1.0-10.0); NEUTROPHILS % (AUTO) 81.6 % (45.0-75.0); PLATELET COUNT 154 K/UL (150-450); RED BLOOD COUNT 4.76 M/UL (4.20-5.40); RED CELL DISTRIBUTION WIDTH 14.9 % (11.6-14.8); WHITE BLOOD COUNT 14.6 K/UL (4.8-10.8)
--- NOTE | 2018-09-15 07:10 | NUR ---
HAND-OFF: Report given to FELIX NERI.
--- NOTE | 2018-09-15 07:11 | NUR ---
NURSE NOTES: Report received from Severino Webster RN. Pt is sleeping in bed. Able to bite ETT when deep suctioning. Slight movement of left arm at times noted. Unable to open eyes but with help if eyes are open, able to track side to side. Sinus rhythm on monitor worker. ETT 7.0/22cm AC 14, TV 500, FiO2 40%, P 5. O2 sat 98%. No respiratory distress noted. G-tube intact and clamped. Nunez in place draining to gravity. IV to right G20 and right FA 20 patent and asymptomatic. Pt is on D5W at 100cc/hr. Bed in lowest position. Side rails up x3. Will resume plan of care.
[2018-09-15] MEDS: Heparin 5000 units/ml inj SUBQ SCH ×2 (09:00→20:35)
[2018-09-15] MEDS ORDERED: Vancomycin 750mg/NS 275ml IVPB ONE ×2 (09:00)
--- NOTE | 2018-09-15 09:00 | NUR ---
NURSE NOTES: Temp 101.6 orally. Cooling measures initiated. Oral care done. Turned and repositioned pt.
--- NOTE | 2018-09-15 09:00 | General Progress Note ---
Assessment/Plan Problem List: (1) DM (diabetes mellitus) ICD Codes: E11.9 - Type 2 diabetes mellitus without complications SNOMED: 95459047 (2) CVA, old, hemiparesis ICD Codes: I69.359 - Hemiplegia and hemiparesis following cerebral infarction affecting unspecified side; R65.20 - Severe sepsis without septic shock SNOMED: 013831841 (3) Severe sepsis ICD Codes: A41.9 - Sepsis, unspecified organism; R65.20 - Severe sepsis without septic shock SNOMED: 41167852 (4) Respiratory failure ICD Codes: J96.90 - Respiratory failure, unspecified, unspecified whether with hypoxia or hypercapnia SNOMED: 689953323 (5) Dehydration ICD Codes: E86.0 - Dehydration SNOMED: 95224670 (6) Large ischemic R MCA stroke (7) HTN (hypertension) ICD Codes: I10 - Essential (primary) hypertension SNOMED: 45733712 (8) G tube feedings ICD Codes: Z93.1 - Gastrostomy status SNOMED: 316706467, 499950226, 663087328 Assessment/Plan: start GTF fu labs abx per ID respiratory care fu Subjective ROS Limited/Unobtainable: No Allergies: Coded Allergies: No Known Allergies (Unverified , 02/04/17) Objective Last 24 Hour Vital Signs Date Time Temp Pulse Resp B/P (MAP) Pulse Ox O2 Delivery O2 Flow Rate FiO2 09/15/18 08:42 87 14 40 09/15/18 08:00 91 14 119/62 (81) 100 09/15/18 08:00 40 09/15/18 07:00 86 16 99/55 (70) 99 09/15/18 06:53 88 14 99 Mechanical Ventilator 40 09/15/18 06:51 88 14 40 09/15/18 06:44 89 14 98 Mechanical Ventilator 40 09/15/18 06:00 87 17 117/51 (73) 100 09/15/18 05:08 83 14 40 60 09/15/18 05:00 84 14 123/44 (70) 100 09/15/18 04:00 Mechanical Ventilator 09/15/18 04:00 99.0 87 15 109/59 (76) 99 09/15/18 04:00 40 09/15/18 03:11 80 14 40 60 09/15/18 03:02 80 09/15/18 03:00 80 14 98/54 (69) 97 09/15/18 02:00 84 15 115/57 (76) 98 09/15/18 01:00 99.1 89 15 102/53 (69) 98 09/15/18 00:48 92 14 100 Mechanical Ventilator 40 09/15/18 00:43 99.1 09/15/18 00:41 93 16 98 Mechanical Ventilator 40 09/15/18 00:40 93 16 40 60 09/15/18 00:00 Mechanical Ventilator 09/15/18 00:00 40 09/15/18 00:00 100.8 93 15 112/55 (74) 99 09/14/18 23:24 93 14 40 60 09/14/18 23:11 94 09/14/18 23:00 94 14 112/49 (70) 100 09/14/18 22:00 94 15 112/51 (71) 100 09/14/18 21:28 95 15 40 60 09/14/18 21:00 96 14 120/56 (77) 100 09/14/18 20:00 99.3 87 14 126/56 (79) 100 09/14/18 20:00 Mechanical Ventilator 09/14/18 20:00 50 09/14/18 19:27 87 09/14/18 19:24 90 14 100 Mechanical Ventilator 50 09/14/18 19:13 88 14 98 Mechanical Ventilator 50 09/14/18 19:11 89 14 50 60 09/14/18 16:48 92 14 60 09/14/18 16:00 82 09/14/18 16:00 Mechanical Ventilator 09/14/18 16:00 50 09/14/18 15:30 94 14 60 09/14/18 13:26 Mechanical Ventilator 09/14/18 13:26 96 14 60 09/14/18 12:00 Mechanical Ventilator 09/14/18 12:00 60 09/14/18 11:35 62 14 60 09/14/18 11:25 60 09/14/18 11:20 15.0 60 09/14/18 11:17 101.0 100 20 112/76 99 Mechanical Ventilator 100 09/14/18 11:00 98 16 100 09/14/18 10:53 101.0 98 17 101/70 98 Mechanical Ventilator 100 09/14/18 09:45 101.0 70 18 115/70 100 Mechanical Ventilator 100 09/14/18 09:19 15.0 100 09/14/18 09:16 120 14 Intake and Output 09/14/18 09/15/18 18:59 06:59 Intake Total 2008.3 ml 2379 ml Output Total 120 ml 1125 ml Balance 1888.3 ml 1254 ml Intake Free Water 250 ml 750 ml IV Total 1758.3 ml 1549 ml Other 80 ml Output Urine Total 120 ml 1125 ml # Voids 2 Laboratory Tests 09/14/18 10:15: Lactic Acid Level 3.00H 09/14/18 11:00: Arterial Blood pH 7.527H, Arterial Blood Partial Pressure CO2 31.2L, Arterial Blood Partial Pressure O2 256.0H, Arterial Blood HCO3 25.3, Arterial Blood Oxygen Saturation 99.2, Arterial Blood Base Excess 3.5H, Ray Test Positive 09/14/18 15:40: Lactic Acid Level 3.30H, White Blood Count 14.1H, Red Blood Count 4.93, Hemoglobin 15.4, Hematocrit 47.9H, Mean Corpuscular Volume 97, Mean Corpuscular Hemoglobin 31.3H, Mean Corpuscular Hemoglobin Concent 32.2, Red Cell Distribution Width 14.4, Platelet Count 188, Mean Platelet Volume 8.8, Neutrophils (%) (Auto) 84.4H, Lymphocytes (%) (Auto) 12.2L, Monocytes (%) (Auto ) 2.9, Eosinophils (%) (Auto) 0.0, Basophils (%) (Auto) 0.5, Sodium Level 159H, Potassium Level 3.4L, Chloride Level 126H, Carbon Dioxide Level 29, Anion Gap 4L , Blood Urea Nitrogen 90H, Creatinine 1.6H, Estimat Glomerular Filtration Rate , Glucose Level 435#H, Calcium Level 9.4, Total Bilirubin 1.9H, Direct Bilirubin 0.3, Aspartate Amino Transf (AST/SGOT) 17, Alanine Aminotransferase ( ALT/SGPT) 15, Alkaline Phosphatase 77, Total Protein 7.1, Albumin 2.6L, Globulin 4.5, Albumin/Globulin Ratio 0.6L 09/14/18 21:00: Lactic Acid Level 2.70H 09/15/18 02:19: Lactic Acid Level 4.30H 09/15/18 06:10: Lactic Acid Level 3.80H, White Blood Count 14.6H, Red Blood Count 4.76, Hemoglobin 14.8, Hematocrit 47.6H, Mean Corpuscular Volume 100H, Mean Corpuscular Hemoglobin 31.1H, Mean Corpuscular Hemoglobin Concent 31.1L, Red Cell Distribution Width 14.9H, Platelet Count 154, Mean Platelet Volume 10.1, Neutrophils (%) (Auto) 81.6H, Lymphocytes (%) (Auto) 15.6L, Monocytes (%) (Auto ) 2.5, Eosinophils (%) (Auto) 0.0, Basophils (%) (Auto) 0.3, Sodium Level 154H, Potassium Level 3.6, Chloride Level 117H, Carbon Dioxide Level 24, Anion Gap 13 , Blood Urea Nitrogen 65H, Creatinine 1.5H, Estimat Glomerular Filtration Rate , Glucose Level 434H, Calcium Level 8.8, Calcium (Send out) [Pending], Phosphorus Level 2.6, Total Bilirubin 1.9H, Direct Bilirubin 0.4H, Aspartate Amino Transf (AST/SGOT) 19, Alanine Aminotransferase (ALT/SGPT) 12, Alkaline Phosphatase 80, Total Protein 6.3L, Albumin 2.4L, Globulin 4.7, Albumin/ Globulin Ratio 0.5L, Vitamin D 25-Hydroxy [Pending], 25-Hydroxy Vitamin D2 [ Pending], 25-Hydroxy Vitamin D3 [Pending], Parathyroid Hormone (Intact) [Pending ], Random Vancomycin Level 9.0 Height (Feet): 5 Height (Inches): 3.00 Weight (Pounds): 118 General Appearance: lethargic EENT: normal ENT inspection Neck: supple Cardiovascular: normal rate Respiratory/Chest: decreased breath sounds Abdomen: normal bowel sounds, non tender, soft Extremities: non-tender Ovi Brown MD Sep 15, 2018 09:00
[2018-09-15] MEDS: Docusate 100mg cap ORAL SCH ×2 (09:16→20:32)
[2018-09-15] MEDS: Pantoprazole Inj IV SCH (09:16)
--- NOTE | 2018-09-15 09:33 | Diagnostic Imaging Report ---
EXAM: XR Chest, 1 View CLINICAL HISTORY: INFECT TECHNIQUE: Frontal view of the chest. COMPARISON: Chest x-ray, 09/14/18 933 FINDINGS: Lungs: Bibasilar lung atelectasis/airspace disease. Mild interstitial prominence. Pleural space: Small right pleural effusion, slightly worse. Improved small left pleural effusion. No pneumothorax. Heart: Unremarkable. No cardiomegaly. Mediastinum: Unremarkable. Bones/joints: Unremarkable. Tubes, lines and devices: Stable endotracheal tube. IMPRESSION: 1. Stable endotracheal tube. 2. Bibasilar lung atelectasis/airspace disease. Mild interstitial prominence. 3. Small right pleural effusion, slightly worse. Improved small left pleural effusion.
--- NOTE | 2018-09-15 10:45 | NUR ---
NURSE NOTES: Tylenol given for fever 100.5. Cooling measures continued.
--- NOTE | 2018-09-15 12:27 | Surgery Progress Note ---
Surgery Progress Note Subjective Additional Comments leukocytosis resuscitation improved with h/h now more appropriate. very dehydrated lactic acidosis improved exam unchanged. Objective Last 24 Hour Vital Signs Date Time Temp Pulse Resp B/P (MAP) Pulse Ox O2 Delivery O2 Flow Rate FiO2 09/15/18 12:00 80 14 100/47 (64) 97 09/15/18 12:00 40 09/15/18 12:00 87 14 98/50 (66) 100 09/15/18 12:00 Mechanical Ventilator 09/15/18 11:47 86 09/15/18 11:13 99.4 09/15/18 11:09 82 14 40 09/15/18 11:00 99.4 84 14 103/49 (67) 98 09/15/18 10:18 100.5 09/15/18 10:00 87 14 98/50 (66) 100 09/15/18 09:00 101.6 90 15 112/50 (70) 98 09/15/18 08:42 87 14 40 09/15/18 08:00 Mechanical Ventilator 09/15/18 08:00 91 14 119/62 (81) 100 09/15/18 08:00 40 09/15/18 07:35 91 09/15/18 07:00 86 16 99/55 (70) 99 09/15/18 06:53 88 14 99 Mechanical Ventilator 40 09/15/18 06:51 88 14 40 09/15/18 06:44 89 14 98 Mechanical Ventilator 40 09/15/18 06:00 87 17 117/51 (73) 100 09/15/18 05:08 83 14 40 60 09/15/18 05:00 84 14 123/44 (70) 100 09/15/18 04:00 Mechanical Ventilator 09/15/18 04:00 99.0 87 15 109/59 (76) 99 09/15/18 04:00 40 09/15/18 03:11 80 14 40 60 09/15/18 03:02 80 09/15/18 03:00 80 14 98/54 (69) 97 09/15/18 02:00 84 15 115/57 (76) 98 09/15/18 01:00 99.1 89 15 102/53 (69) 98 09/15/18 00:48 92 14 100 Mechanical Ventilator 40 09/15/18 00:41 93 16 98 Mechanical Ventilator 40 09/15/18 00:40 93 16 40 60 09/15/18 00:00 Mechanical Ventilator 09/15/18 00:00 40 09/15/18 00:00 100.8 93 15 112/55 (74) 99 09/14/18 23:24 93 14 40 60 09/14/18 23:11 94 09/14/18 23:00 94 14 112/49 (70) 100 09/14/18 22:00 94 15 112/51 (71) 100 09/14/18 21:28 95 15 40 60 09/14/18 21:00 96 14 120/56 (77) 100 09/14/18 20:00 99.3 87 14 126/56 (79) 100 09/14/18 20:00 Mechanical Ventilator 09/14/18 20:00 50 09/14/18 19:27 87 09/14/18 19:24 90 14 100 Mechanical Ventilator 50 09/14/18 19:13 88 14 98 Mechanical Ventilator 50 09/14/18 19:11 89 14 50 60 09/14/18 16:48 92 14 60 09/14/18 16:00 82 09/14/18 16:00 Mechanical Ventilator 09/14/18 16:00 50 09/14/18 15:30 94 14 60 09/14/18 13:26 Mechanical Ventilator 09/14/18 13:26 96 14 60 I&O Intake and Output 09/14/18 09/15/18 19:00 07:00 Intake Total 2133.3 ml 2379 ml Output Total 140 ml 1185 ml Balance 1993.3 ml 1194 ml Intake Free Water 250 ml 750 ml IV Total 1883.3 ml 1549 ml Other 80 ml Output Urine Total 140 ml 1185 ml # Voids 2 Dressing: dry Wound: other Drains: other Cardiovascular: RSR Respiratory: decreased breath sounds Abdomen: soft, present bowel sounds, non-distended Extremities: no cyanosis, other Laboratory Tests Test 09/14/18 15:40 09/14/18 21:00 09/15/18 02:19 09/15/18 06:10 White Blood Count 14.1 K/UL (4.8-10.8) H 14.6 K/UL (4.8-10.8) H Red Blood Count 4.93 M/UL (4.20-5.40) 4.76 M/UL (4.20-5.40) Hemoglobin 15.4 G/DL (12.0-16.0) 14.8 G/DL (12.0-16.0) Hematocrit 47.9 % (37.0-47.0) H 47.6 % (37.0-47.0) H Mean Corpuscular Volume 97 FL (80-99) 100 FL (80-99) H Mean Corpuscular Hemoglobin 31.3 PG (27.0-31.0) H 31.1 PG (27.0-31.0) H Mean Corpuscular Hemoglobin Concent 32.2 G/DL (32.0-36.0) 31.1 G/DL (32.0-36.0) L Red Cell Distribution Width 14.4 % (11.6-14.8) 14.9 % (11.6-14.8) H Platelet Count 188 K/UL (150-450) 154 K/UL (150-450) Mean Platelet Volume 8.8 FL (6.5-10.1) 10.1 FL (6.5-10.1) Neutrophils (%) (Auto) 84.4 % (45.0-75.0) H 81.6 % (45.0-75.0) H Lymphocytes (%) (Auto) 12.2 % (20.0-45.0) L 15.6 % (20.0-45.0) L Monocytes (%) (Auto) 2.9 % (1.0-10.0) 2.5 % (1.0-10.0) Eosinophils (%) (Auto) 0.0 % (0.0-3.0) 0.0 % (0.0-3.0) Basophils (%) (Auto) 0.5 % (0.0-2.0) 0.3 % (0.0-2.0) Sodium Level 159 MMOL/L (136-145) H 154 MMOL/L (136-145) H Potassium Level 3.4 MMOL/L (3.5-5.1) L 3.6 MMOL/L (3.5-5.1) Chloride Level 126 MMOL/L (98-107) H 117 MMOL/L (98-107) H Carbon Dioxide Level 29 MMOL/L (21-32) 24 MMOL/L (21-32) Anion Gap 4 mmol/L (5-15) L 13 mmol/L (5-15) Blood Urea Nitrogen 90 mg/dL (7-18) H 65 mg/dL (7-18) H Creatinine 1.6 MG/DL (0.55-1.30) H 1.5 MG/DL (0.55-1.30) H Estimat Glomerular Filtration Rate mL/min (>60) mL/min (>60) Glucose Level 435 MG/DL (74-106) #H 434 MG/DL (74-106) H Lactic Acid Level 3.30 mmol/L (0.4-2.0) H 2.70 mmol/L (0.4-2.0) H 4.30 mmol/L (0.66-2.22) H 3.80 mmol/L (0.4-2.0) H Calcium Level 9.4 MG/DL (8.5-10.1) 8.8 MG/DL (8.5-10.1) Total Bilirubin 1.9 MG/DL (0.2-1.0) H 1.9 MG/DL (0.2-1.0) H Direct Bilirubin 0.3 MG/DL (0.0-0.3) 0.4 MG/DL (0.0-0.3) H Aspartate Amino Transf (AST/SGOT) 17 U/L (15-37) 19 U/L (15-37) Alanine Aminotransferase (ALT/SGPT) 15 U/L (12-78) 12 U/L (12-78) Alkaline Phosphatase 77 U/L (46-116) 80 U/L (46-116) Total Protein 7.1 G/DL (6.4-8.2) 6.3 G/DL (6.4-8.2) L Albumin 2.6 G/DL (3.4-5.0) L 2.4 G/DL (3.4-5.0) L Globulin 4.5 g/dL 4.7 g/dL Albumin/Globulin Ratio 0.6 (1.0-2.7) L 0.5 (1.0-2.7) L Calcium (Send out) Pending Phosphorus Level 2.6 MG/DL (2.5-4.9) Vitamin D 25-Hydroxy Pending 25-Hydroxy Vitamin D2 Pending 25-Hydroxy Vitamin D3 Pending Parathyroid Hormone (Intact) Pending Random Vancomycin Level 9.0 ug/mL Plan Problems: (1) Sepsis Assessment & Plan: 77-year-old female presented to [facility] in distress found to be septic with leukocytosis tachycardia and requiring ventilatory support. Patient's labs noted and significant abnormal. Lactic acidosis. Severe dehydration. Admit to intensive care unit IV fluids Vent support IV antibiotics as per infectious disease Trend labs A.m. chest x-ray okay for tube feeds ICU care vent We will follow with recommendations Thank you for allowing me to participate in patient's care (2) Lactic acid acidosis (3) Upper sacral area unstageable pressure ulcer (4) G tube feedings (5) Respiratory failure (6) Ventilator dependence Akhil Jackson Sep 15, 2018 12:27
--- NOTE | 2018-09-15 12:34 | NUR ---
NURSE NOTES: Dr Jerez here to see the patient. Updated him with pt's current condition. Orders received, noted, and carried out. Addendum: 09/15/18 at 1428 by FRANC DELA CRUZ RN RN NURSE NOTES: Dr Jerez here to see the patient. Updated him with pt's current condition. Orders received, noted, and carried out. Cleaned and repositioned pt.
--- NOTE | 2018-09-15 12:51 | History and Physical ---
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 She was intubated in the ER and admitted to ICU for further management. On admission, she was found to have hypernatremia of 167, acute renal failure with Cr 1.7 and BUN 102, Lactate 3.9. The patient was seen by Dr. Milner from pulmonary and Dr. Jules ( for Dr. Vernon ) from nephrology. Ventilator settings adjusted and IVF with D5W was started 100 cc hr with free water PEG fluch 250 cc q 4 hours. This morning her sodium is corrected to 154, however the glucose was 300. D5W was stopped by me and IVF with 1/2 NS ordered. New labs ordered now. The patient is non verbal, pupils reactive to light and weak gag reflex noted. No movement to deep pain stimuli noted. No family available. Allergies: Coded Allergies: No Known Allergies (Unverified , 02/04/17) Medication History Scheduled Amlodipine Besylate (Norvasc), 5 MG NG BID Aspirin* (Aspirin*), 162 MG NG DAILY Cholecalciferol (Vitamin D3)* (Vitamin D*), 5,000 INTLU GT DAILY Cran/Vitc/Mannose/Inulin/Brom (Uti-Stat Liquid), 3,875 MG GT DAILY, (Reported) Cyclobenzaprine Hcl* (Flexeril*), 5 MG ORAL THREE TIMES A DAY, (Reported) Docusate Sodium* (Docusate Sodium*), 100 MG GT TWICE A DAY, (Reported) Heparin Sod (Porcine) (Heparin Sodium*), 5,000 UNITS SUBQ EVERY 12 HOURS Magnesium Hydroxide* (Milk Of Magnesia*), 30 ML ORAL DAILY, (Reported) Metformin Hcl* (Metformin Hcl*), 500 MG GT TWICE A DAY, (Reported) Metoprolol Tartrate (Metoprolol Tartrate), 12.5 MG NG Q12HR Multivitamin Liquid* (Multi-Delyn*), 5 ML GT DAILY, (Reported) Nitroglycerin (Nitroglycerin Patch), 1 PATCH TDERMAL Q24H Ranitidine Hcl* (Zantac*), 150 MG GT DAILY, (Reported) Trimethoprim/Sulfamethoxazole (Bactrim Ds Tablet), 1 TAB ORAL TWICE A DAY Scheduled PRN Acetaminophen* (Acetaminophen*), 650 MG ORAL Q6H PRN for Mild Pain/Temp > 100.5, (Reported) Bisacodyl (Bisacodyl), 10 MG RC DAILY PRN for Constipation, (Reported) Ipratropium/Albuterol Sulfate (Iprat-Albut 0.5-3(2.5) Mg/3 Ml), 3 ML IH Q6HR PRN for Shortness of Breath, (Reported) Na Phos,M-B/Na Phos,Di-Ba* (Fleet Enema*), 133 ML RECTAL DAILY PRN for Constipation, (Reported) Patient History Limited by: medical condition History Provided By: Medical Record, EMS Healthcare decision maker Resuscitation status Full Code Advanced Directive on File Review of Systems All Other Systems: negative except mentioned in HPI Physical Exam General Appearance: moderate distress Lines, tubes and drains: peripheral HEENT: normocephalic Respiratory/Chest: normal breath sounds, no respiratory distress, decreased breath sounds Cardiovascular/Chest: normal rate, regular rhythm Abdomen: non tender Extremities: non-pitting Skin Exam: normal pigmentation Neurologic: unresponsiveness Last 24 Hour Vital Signs Date Time Temp Pulse Resp B/P (MAP) Pulse Ox O2 Delivery O2 Flow Rate FiO2 09/15/18 12:00 80 14 100/47 (64) 97 09/15/18 12:00 40 09/15/18 12:00 87 14 98/50 (66) 100 09/15/18 12:00 Mechanical Ventilator 09/15/18 11:47 86 09/15/18 11:13 99.4 09/15/18 11:09 82 14 40 09/15/18 11:00 99.4 84 14 103/49 (67) 98 09/15/18 10:18 100.5 09/15/18 10:00 87 14 98/50 (66) 100 09/15/18 09:00 101.6 90 15 112/50 (70) 98 09/15/18 08:42 87 14 40 09/15/18 08:00 Mechanical Ventilator 09/15/18 08:00 91 14 119/62 (81) 100 09/15/18 08:00 40 09/15/18 07:35 91 09/15/18 07:00 86 16 99/55 (70) 99 09/15/18 06:53 88 14 99 Mechanical Ventilator 40 09/15/18 06:51 88 14 40 09/15/18 06:44 89 14 98 Mechanical Ventilator 40 09/15/18 06:00 87 17 117/51 (73) 100 09/15/18 05:08 83 14 40 60 09/15/18 05:00 84 14 123/44 (70) 100 09/15/18 04:00 Mechanical Ventilator 09/15/18 04:00 99.0 87 15 109/59 (76) 99 09/15/18 04:00 40 09/15/18 03:11 80 14 40 60 09/15/18 03:02 80 09/15/18 03:00 80 14 98/54 (69) 97 09/15/18 02:00 84 15 115/57 (76) 98 09/15/18 01:00 99.1 89 15 102/53 (69) 98 09/15/18 00:48 92 14 100 Mechanical Ventilator 40 09/15/18 00:41 93 16 98 Mechanical Ventilator 40 09/15/18 00:40 93 16 40 60 09/15/18 00:00 Mechanical Ventilator 09/15/18 00:00 40 09/15/18 00:00 100.8 93 15 112/55 (74) 99 09/14/18 23:24 93 14 40 60 09/14/18 23:11 94 09/14/18 23:00 94 14 112/49 (70) 100 09/14/18 22:00 94 15 112/51 (71) 100 09/14/18 21:28 95 15 40 60 09/14/18 21:00 96 14 120/56 (77) 100 09/14/18 20:00 99.3 87 14 126/56 (79) 100 09/14/18 20:00 Mechanical Ventilator 09/14/18 20:00 50 09/14/18 19:27 87 09/14/18 19:24 90 14 100 Mechanical Ventilator 50 09/14/18 19:13 88 14 98 Mechanical Ventilator 50 09/14/18 19:11 89 14 50 60 09/14/18 16:48 92 14 60 09/14/18 16:00 82 09/14/18 16:00 Mechanical Ventilator 09/14/18 16:00 50 09/14/18 15:30 94 14 60 09/14/18 13:26 Mechanical Ventilator 09/14/18 13:26 96 14 60 Intake and Output 09/14/18 09/15/18 19:00 07:00 Intake Total 2133.3 ml 2379 ml Output Total 140 ml 1185 ml Balance 1993.3 ml 1194 ml Intake Free Water 250 ml 750 ml IV Total 1883.3 ml 1549 ml Other 80 ml Output Urine Total 140 ml 1185 ml # Voids 2 Laboratory Tests Test 09/14/18 15:40 09/14/18 21:00 09/15/18 02:19 09/15/18 06:10 White Blood Count 14.1 K/UL (4.8-10.8) H 14.6 K/UL (4.8-10.8) H Red Blood Count 4.93 M/UL (4.20-5.40) 4.76 M/UL (4.20-5.40) Hemoglobin 15.4 G/DL (12.0-16.0) 14.8 G/DL (12.0-16.0) Hematocrit 47.9 % (37.0-47.0) H 47.6 % (37.0-47.0) H Mean Corpuscular Volume 97 FL (80-99) 100 FL (80-99) H Mean Corpuscular Hemoglobin 31.3 PG (27.0-31.0) H 31.1 PG (27.0-31.0) H Mean Corpuscular Hemoglobin Concent 32.2 G/DL (32.0-36.0) 31.1 G/DL (32.0-36.0) L Red Cell Distribution Width 14.4 % (11.6-14.8) 14.9 % (11.6-14.8) H Platelet Count 188 K/UL (150-450) 154 K/UL (150-450) Mean Platelet Volume 8.8 FL (6.5-10.1) 10.1 FL (6.5-10.1) Neutrophils (%) (Auto) 84.4 % (45.0-75.0) H 81.6 % (45.0-75.0) H Lymphocytes (%) (Auto) 12.2 % (20.0-45.0) L 15.6 % (20.0-45.0) L Monocytes (%) (Auto) 2.9 % (1.0-10.0) 2.5 % (1.0-10.0) Eosinophils (%) (Auto) 0.0 % (0.0-3.0) 0.0 % (0.0-3.0) Basophils (%) (Auto) 0.5 % (0.0-2.0) 0.3 % (0.0-2.0) Sodium Level 159 MMOL/L (136-145) H 154 MMOL/L (136-145) H Potassium Level 3.4 MMOL/L (3.5-5.1) L 3.6 MMOL/L (3.5-5.1) Chloride Level 126 MMOL/L (98-107) H 117 MMOL/L (98-107) H Carbon Dioxide Level 29 MMOL/L (21-32) 24 MMOL/L (21-32) Anion Gap 4 mmol/L (5-15) L 13 mmol/L (5-15) Blood Urea Nitrogen 90 mg/dL (7-18) H 65 mg/dL (7-18) H Creatinine 1.6 MG/DL (0.55-1.30) H 1.5 MG/DL (0.55-1.30) H Estimat Glomerular Filtration Rate mL/min (>60) mL/min (>60) Glucose Level 435 MG/DL (74-106) #H 434 MG/DL (74-106) H Lactic Acid Level 3.30 mmol/L (0.4-2.0) H 2.70 mmol/L (0.4-2.0) H 4.30 mmol/L (0.66-2.22) H 3.80 mmol/L (0.4-2.0) H Calcium Level 9.4 MG/DL (8.5-10.1) 8.8 MG/DL (8.5-10.1) Total Bilirubin 1.9 MG/DL (0.2-1.0) H 1.9 MG/DL (0.2-1.0) H Direct Bilirubin 0.3 MG/DL (0.0-0.3) 0.4 MG/DL (0.0-0.3) H Aspartate Amino Transf (AST/SGOT) 17 U/L (15-37) 19 U/L (15-37) Alanine Aminotransferase (ALT/SGPT) 15 U/L (12-78) 12 U/L (12-78) Alkaline Phosphatase 77 U/L (46-116) 80 U/L (46-116) Total Protein 7.1 G/DL (6.4-8.2) 6.3 G/DL (6.4-8.2) L Albumin 2.6 G/DL (3.4-5.0) L 2.4 G/DL (3.4-5.0) L Globulin 4.5 g/dL 4.7 g/dL Albumin/Globulin Ratio 0.6 (1.0-2.7) L 0.5 (1.0-2.7) L Calcium (Send out) Pending Phosphorus Level 2.6 MG/DL (2.5-4.9) Vitamin D 25-Hydroxy Pending 25-Hydroxy Vitamin D2 Pending 25-Hydroxy Vitamin D3 Pending Parathyroid Hormone (Intact) Pending Random Vancomycin Level 9.0 ug/mL Height (Feet): 5 Height (Inches): 3.00 Weight (Pounds): 118 Medications Current Medications Medications (Trade) Dose Ordered Sig/Wayne Route PRN Reason Start Time Stop Time Status Last Admin Dose Admin Acetaminophen (Tylenol) 650 mg Q4H PRN ORAL FEVER 09/14/18 12:45 10/14/18 12:44 09/15/18 10:43 Albuterol/ Ipratropium (Albuterol/ Ipratropium) 3 ml Q6H PRN HHN Shortness of Breath 09/14/18 12:45 09/19/18 12:44 Albuterol/ Ipratropium (Albuterol/ Ipratropium) 3 ml Q6HRT HHN 09/14/18 19:00 09/19/18 18:59 09/15/18 06:54 Bisacodyl (Dulcolax) 10 mg DAILYPRN PRN RECTAL Constipation 09/14/18 12:45 10/14/18 12:44 Dextrose (Dextrose 50%) 25 ml Q30M PRN IV Hypoglycemia 09/14/18 12:45 10/14/18 12:44 Dextrose (Dextrose 50%) 50 ml Q30M PRN IV Hypoglycemia 09/14/18 12:45 10/14/18 12:44 Diphenhydramine HCl (Benadryl) 25 mg Q6H PRN ORAL Itching/Pruritis 09/14/18 12:45 10/14/18 12:44 Docusate Sodium (Colace) 100 mg EVERY 12 HOURS ORAL 09/14/18 21:00 10/14/18 20:59 09/15/18 09:16 Heparin Sodium (Porcine) (Heparin 5000 units/ml) 5,000 units EVERY 12 HOURS SUBQ 09/14/18 21:00 10/14/18 20:59 09/14/18 20:37 Insulin Aspart (NovoLOG) Q6HR SUBQ 09/14/18 16:00 10/14/18 15:59 09/15/18 11:38 Lorazepam (Ativan 2mg/ml 1ml) 0.5 mg Q4H PRN IV For Anxiety 09/14/18 12:45 09/21/18 12:44 Magnesium Hydroxide (Mom) 30 ml HSPRN PRN ORAL Constipation 09/14/18 12:45 10/14/18 12:44 Ondansetron HCl (Zofran) 4 mg Q6H PRN IVP Nausea & Vomiting 09/14/18 12:45 10/14/18 12:44 Pantoprazole (Protonix) 40 mg DAILY IV 09/15/18 09:00 10/15/18 08:59 09/15/18 09:16 Piperacillin Sod/ Tazobactam Sod 3.375 gm/Dextrose 100 ml @ 25 mls/hr EVERY 8 HOURS IVPB 09/14/18 15:00 09/19/18 14:59 09/15/18 05:33 Sodium Chloride 1,000 ml @ 100 mls/hr Q10H IV 09/15/18 11:30 10/15/18 11:29 09/15/18 11:35 Vancomycin HCl (Vanco rx to dose) 1 ea DAILY PRN MISC Per rx protocol 09/14/18 12:45 10/14/18 12:44 Assessment/Plan Status: stable, not improved Assessment/Plan: 77 y/o F with acute hypoxemic respiratory failure and possible sepsis admitted to ICU # Acute hypoxemic respiratory failure - Intubated in the ER and ICU management by Dr. Milner. - Serial ABG and CXR - Supportive care - HHN as needed # Acute kidney injury due to dehydration - IVF adjusted today - US renal without obstruction or hydronephrosis reviewed. - Nephrology follow up - Serial BMP and electrolytes - PTH and Vit D pending # Hypernatremia - BMP now and this evening at 8 pm to adjust IVF # Poorly controlled diabetes mellitus - ALCON - A1c ordered # Chronic CVA R MCA and L posterior parietal stroke - Supportive care - Consider neurology consult when patient is more awake - No acute stroke per CT head on admission - Serial neurological exam. # Lactic acidosis - severe sepsis possible pneumonia - Monitor lactate - Broad sp antibiotics with Vanco and Zosyn - ID consult - Montior blood cx results # Hypertension - Monitor and resume home medications # History of dementia - Supportive care - SW to attempt to find family members # DVT and GI ppx # FULL CODE by records. Geovanny Jerez MD Sep 15, 2018 12:51
[2018-09-15 13:40] LABS: ANION GAP 9 mmol/L (5-15); BLOOD UREA NITROGEN 47 mg/dL (7-18); CALCIUM 8.2 MG/DL (8.5-10.1); CARBON DIOXIDE 27 MMOL/L (21-32); CHLORIDE 117 MMOL/L (98-107); CREATININE 1.3 MG/DL (0.55-1.30); POTASSIUM 3.2 MMOL/L (3.5-5.1); SODIUM 153 MMOL/L (136-145)
--- NOTE | 2018-09-15 14:28 | NUR ---
NURSE NOTES: Notified Dr Jerez regarding 1230 lab results. Orders received noted, and carried out. Temp 99.4. Cooling measures still continued.
--- NOTE | 2018-09-15 15:22 | Pulmonolgy Critical Care Note ---
Critical Care - Asmt/Plan Assessment/Plan: Pulmonary CCM Progress Note Critical Care - Asmt/Plan Problems: (1) Endotracheally intubated (2) Ventilator dependence (3) Sepsis (4) Pneumonia (5) Electrolyte imbalance (6) Dehydration (7) Altered mental status (8) Hypernatremia (9) Respiratory failure (10) Lactic acid acidosis (11) H/O: CVA (cerebrovascular accident) (12) G tube feedings (13) KEL (acute kidney injury) Respiratory: monitor respiratory rate, adjust FIO2, ABG, other - HHN's, pulmonary hygiene Cardiac: continue to monitor HR/BP Renal: keep IV fluid - D5W@100 + add free H2O via GT, check electrolytes, other - F/U renal recs Infectious Disease: check cultures, continue antibiotics - Vanco/Zosyn per ID Gastrointestinal: other - hold TF's until stable then resume Endocrine: monitor blood sugar, continue sliding scale insulin Hematologic: monitor H/H Neurologic: keep patient comfortable - monitor MS, consider neuro eval and EEG Prophylaxis: Protonix, Heparin Disposition: keep in ICU Time Spent (Minutes): 40 Notes Reviewed: river pilot, renal, ID, other - ERMD Discussed with: nurses, consultants, other - FC Critical Care - Objective Vital Signs Noted Status: sedated - intubated Condition: critical HEENT: atraumatic, normocephalic, other - ETT OGT weak gag Lungs: rhonchi Heart: HR/BP stable Abdomen: soft, non-tender, active bowel sounds, feeding tube Extremities: no C/C/E Micro: Microbiology Date/Time Source Procedure Growth Status 09/14/18 09:00 Rectum Received Accucheck: 183 Blood Sugars: BS controlled Critical Care - Subjective ROS Limited/Unobtainable: Yes ICU Day: 2 Intubation Day: 2 Interval Events: 77 F NHR h/o dementia, CVA, GT, HTN, HL a/w AMS and SOB intubated in ER Na 167 Cr 1.7 LA elevated + hemoconcentration No gag in ER + faint gag now + F no C no further hx obtainable Condition: critical IV Access: peripheral - x2 EKG Rhythm: Sinus Rhythm FI02: 60 Vent Support Breath Rate: 14 Vent Support Mode: AC Vent Tidal Volume: 500 Sputum Amount: Small PEEP: 5.0 PIP: 23 Secretions: scant thick Fluids: D5W@100 Subjective: ARLETTE CXR: L RC inf, small L eff, ETT ET-Tube: 7.0 ET Position: 22 Labs: Laboratory Tests Test 09/14/18 08:30 09/14/18 08:50 09/14/18 10:15 09/14/18 11:00 White Blood Count 17.6 K/UL (4.8-10.8) H Red Blood Count 6.01 M/UL (4.20-5.40) H Hemoglobin 18.5 G/DL (12.0-16.0) *H Hematocrit 59.8 % (37.0-47.0) H Mean Corpuscular Volume 99 FL (80-99) Mean Corpuscular Hemoglobin 30.8 PG (27.0-31.0) Mean Corpuscular Hemoglobin Concent 30.9 G/DL (32.0-36.0) L Red Cell Distribution Width 14.9 % (11.6-14.8) H Platelet Count 278 K/UL (150-450) Mean Platelet Volume 8.9 FL (6.5-10.1) Neutrophils (%) (Auto) % (45.0-75.0) Lymphocytes (%) (Auto) % (20.0-45.0) Monocytes (%) (Auto) % (1.0-10.0) Eosinophils (%) (Auto) % (0.0-3.0) Basophils (%) (Auto) % (0.0-2.0) Differential Total Cells Counted 100 Neutrophils % (Manual) 77 % (45-75) H Lymphocytes % (Manual) 10 % (20-45) L Monocytes % (Manual) 5 % (1-10) Eosinophils % (Manual) 0 % (0-3) Basophils % (Manual) 0 % (0-2) Band Neutrophils 8 % (0-8) Nucleated Red Blood Cells 1 /100 WBC Platelet Estimate Adequate Platelet Morphology Normal Red Blood Cell Morphology Normal Sodium Level 167 MMOL/L (136-145) *H Potassium Level 3.9 MMOL/L (3.5-5.1) Chloride Level 129 MMOL/L (98-107) H Carbon Dioxide Level 32 MMOL/L (21-32) Anion Gap 8 mmol/L (5-15) Blood Urea Nitrogen 102 mg/dL (7-18) H Creatinine 1.7 MG/DL (0.55-1.30) H Estimat Glomerular Filtration Rate mL/min (>60) Glucose Level 326 MG/DL (74-106) H Lactic Acid Level 3.90 mmol/L (0.4-2.0) H 3.00 mmol/L (0.66-2.22) H Calcium Level 10.7 MG/DL (8.5-10.1) H Phosphorus Level 3.2 MG/DL (2.5-4.9) Magnesium Level 3.2 MG/DL (1.8-2.4) H Total Bilirubin 1.0 MG/DL (0.2-1.0) Aspartate Amino Transf (AST/SGOT) 14 U/L (15-37) L Alanine Aminotransferase (ALT/SGPT) 17 U/L (12-78) Alkaline Phosphatase 101 U/L (46-116) Total Creatine Kinase 292 U/L (26-308) Creatine Kinase MB < 0.5 NG/ML (0.0-3.6) Creatine Kinase MB Relative Index 0.1 Troponin I 0.007 ng/mL (0.000-0.056) Pro-B-Type Natriuretic Peptide 232 pg/mL (0-125) H Total Protein 8.7 G/DL (6.4-8.2) H Albumin 3.2 G/DL (3.4-5.0) L Globulin 5.5 g/dL Albumin/Globulin Ratio 0.6 (1.0-2.7) L Lipase 90 U/L (73-393) Urine Color Yellow Urine Appearance Clear Urine pH 5 (4.5-8.0) Urine Specific [place] 1.015 (1.005-1.035) Urine Protein 2+ (NEGATIVE) H Urine Glucose (UA) 4+ (NEGATIVE) H Urine Ketones 1+ (NEGATIVE) H Urine Blood 1+ (NEGATIVE) H Urine Nitrite Negative (NEGATIVE) Urine Bilirubin Negative (NEGATIVE) Urine Urobilinogen Normal MG/DL (0.0-1.0) Urine Leukocyte Esterase Negative (NEGATIVE) Urine RBC 2-4 /HPF (0 - 2) H Urine WBC 0-2 /HPF (0 - 2) Urine Squamous Epithelial Cells Few /LPF (NONE/OCC) Urine Amorphous Sediment Moderate /LPF (NONE) H Urine Bacteria Few /HPF (NONE) Urine Hyaline Casts 0-2 /LPF (NONE) H Arterial Blood pH 7.527 (7.350-7.450) Arterial Blood Partial Pressure CO2 31.2 mmHg (35.0-45.0) L Arterial Blood Partial Pressure O2 256.0 mmHg (75.0-100.0) H Arterial Blood HCO3 25.3 mmol/L (22.0-26.0) Arterial Blood Oxygen Saturation 99.2 % (95-100) Arterial Blood Base Excess 3.5 (-2-2) H Ray Test Positive Critical Care - Objective Last 24 Hour Vital Signs Date Time Temp Pulse Resp B/P (MAP) Pulse Ox O2 Delivery O2 Flow Rate FiO2 09/15/18 13:32 78 14 94/42 (59) 97 09/15/18 13:12 79 14 98 Mechanical Ventilator 40 09/15/18 13:07 76 14 40 09/15/18 13:02 80 14 99 Mechanical Ventilator 40 09/15/18 13:00 99.2 75 15 98/52 (67) 97 09/15/18 12:00 80 14 100/47 (64) 97 09/15/18 12:00 40 09/15/18 12:00 87 14 98/50 (66) 100 09/15/18 12:00 Mechanical Ventilator 09/15/18 11:47 86 09/15/18 11:13 99.4 09/15/18 11:09 82 14 40 09/15/18 11:00 99.4 84 14 103/49 (67) 98 09/15/18 10:18 100.5 09/15/18 10:00 87 14 98/50 (66) 100 09/15/18 09:00 101.6 90 15 112/50 (70) 98 09/15/18 08:42 87 14 40 09/15/18 08:00 Mechanical Ventilator 09/15/18 08:00 91 14 119/62 (81) 100 09/15/18 08:00 40 09/15/18 07:35 91 09/15/18 07:00 86 16 99/55 (70) 99 09/15/18 06:53 88 14 99 Mechanical Ventilator 40 09/15/18 06:51 88 14 40 09/15/18 06:44 89 14 98 Mechanical Ventilator 40 09/15/18 06:00 87 17 117/51 (73) 100 09/15/18 05:08 83 14 40 60 09/15/18 05:00 84 14 123/44 (70) 100 09/15/18 04:00 Mechanical Ventilator 09/15/18 04:00 99.0 87 15 109/59 (76) 99 09/15/18 04:00 40 09/15/18 03:11 80 14 40 60 09/15/18 03:02 80 09/15/18 03:00 80 14 98/54 (69) 97 09/15/18 02:00 84 15 115/57 (76) 98 09/15/18 01:00 99.1 89 15 102/53 (69) 98 09/15/18 00:48 92 14 100 Mechanical Ventilator 40 09/15/18 00:41 93 16 98 Mechanical Ventilator 40 09/15/18 00:40 93 16 40 60 09/15/18 00:00 Mechanical Ventilator 09/15/18 00:00 40 09/15/18 00:00 100.8 93 15 112/55 (74) 99 09/14/18 23:24 93 14 40 60 09/14/18 23:11 94 09/14/18 23:00 94 14 112/49 (70) 100 09/14/18 22:00 94 15 112/51 (71) 100 09/14/18 21:28 95 15 40 60 09/14/18 21:00 96 14 120/56 (77) 100 09/14/18 20:00 99.3 87 14 126/56 (79) 100 09/14/18 20:00 Mechanical Ventilator 09/14/18 20:00 50 09/14/18 19:27 87 09/14/18 19:24 90 14 100 Mechanical Ventilator 50 09/14/18 19:13 88 14 98 Mechanical Ventilator 50 09/14/18 19:11 89 14 50 60 09/14/18 16:48 92 14 60 09/14/18 16:00 82 09/14/18 16:00 Mechanical Ventilator 09/14/18 16:00 50 09/14/18 15:30 94 14 60 Micro: Microbiology Date/Time Source Procedure Growth Status 09/14/18 09:00 Rectum Received Accucheck: 355 Critical Care - Subjective ROS Limited/Unobtainable: No Condition: stable FI02: 40 Vent Support Breath Rate: 14 Vent Support Mode: AC Vent Tidal Volume: 500 Sputum Amount: Scant PEEP: 5.0 PIP: 26 Tube Feeding Amount: 30 I&O: Intake and Output 09/14/18 09/15/18 19:00 07:00 Intake Total 2133.3 ml 2379 ml Output Total 140 ml 1185 ml Balance 1993.3 ml 1194 ml Intake Free Water 250 ml 750 ml IV Total 1883.3 ml 1549 ml Other 80 ml Output Urine Total 140 ml 1185 ml # Voids 2 ET-Tube: 7.0 ET Position: 22 Marcelo Swift MD Sep 15, 2018 15:22
--- NOTE | 2018-09-15 16:50 | NUR ---
NURSE NOTES: Dr Swift here to see the patient. Updated him with pt's current condition. No new orders. Dr Solis also here to see the patient. Notified him regarding fever. Order received, noted, and carried out.
--- NOTE | 2018-09-15 17:09 | Infectious Diseases Prog Note ---
Assessment/Plan Assessment/Plan Full consult dictated: A) 1) sepsis, fevers, leukocytosis, sirs 2) pneumonia, ua le neg, respiratory failure 3) allergies - nkda 4) pmh noted P) 1) zosyn and vancomycin, add amikacin 2) check cultures, labs and chest x-ray 3) d/w RN 4) will f/u Subjective Allergies: Coded Allergies: No Known Allergies (Unverified , 02/04/17) Objective Vital Signs Last 24 Hour Vital Signs Date Time Temp Pulse Resp B/P (MAP) Pulse Ox O2 Delivery O2 Flow Rate FiO2 09/15/18 16:00 40 09/15/18 16:00 Mechanical Ventilator 09/15/18 15:29 86 18 40 09/15/18 15:00 76 14 108/43 (64) 100 09/15/18 14:00 78 14 94/42 (59) 97 09/15/18 13:12 79 14 98 Mechanical Ventilator 40 09/15/18 13:07 76 14 40 09/15/18 13:02 80 14 99 Mechanical Ventilator 40 09/15/18 13:00 99.2 75 15 98/52 (67) 97 09/15/18 12:00 80 14 100/47 (64) 97 09/15/18 12:00 40 09/15/18 12:00 87 14 98/50 (66) 100 09/15/18 12:00 Mechanical Ventilator 09/15/18 11:47 86 09/15/18 11:13 99.4 09/15/18 11:09 82 14 40 09/15/18 11:00 99.4 84 14 103/49 (67) 98 09/15/18 10:18 100.5 09/15/18 10:00 87 14 98/50 (66) 100 09/15/18 09:00 101.6 90 15 112/50 (70) 98 09/15/18 08:42 87 14 40 09/15/18 08:00 Mechanical Ventilator 09/15/18 08:00 91 14 119/62 (81) 100 09/15/18 08:00 40 09/15/18 07:35 91 09/15/18 07:00 86 16 99/55 (70) 99 09/15/18 06:53 88 14 99 Mechanical Ventilator 40 09/15/18 06:51 88 14 40 09/15/18 06:44 89 14 98 Mechanical Ventilator 40 09/15/18 06:00 87 17 117/51 (73) 100 09/15/18 05:08 83 14 40 60 09/15/18 05:00 84 14 123/44 (70) 100 09/15/18 04:00 Mechanical Ventilator 09/15/18 04:00 99.0 87 15 109/59 (76) 99 09/15/18 04:00 40 09/15/18 03:11 80 14 40 60 09/15/18 03:02 80 09/15/18 03:00 80 14 98/54 (69) 97 09/15/18 02:00 84 15 115/57 (76) 98 09/15/18 01:00 99.1 89 15 102/53 (69) 98 09/15/18 00:48 92 14 100 Mechanical Ventilator 40 09/15/18 00:41 93 16 98 Mechanical Ventilator 40 09/15/18 00:40 93 16 40 60 09/15/18 00:00 Mechanical Ventilator 09/15/18 00:00 40 09/15/18 00:00 100.8 93 15 112/55 (74) 99 09/14/18 23:24 93 14 40 60 09/14/18 23:11 94 09/14/18 23:00 94 14 112/49 (70) 100 09/14/18 22:00 94 15 112/51 (71) 100 09/14/18 21:28 95 15 40 60 09/14/18 21:00 96 14 120/56 (77) 100 09/14/18 20:00 99.3 87 14 126/56 (79) 100 09/14/18 20:00 Mechanical Ventilator 09/14/18 20:00 50 09/14/18 19:27 87 09/14/18 19:24 90 14 100 Mechanical Ventilator 50 09/14/18 19:13 88 14 98 Mechanical Ventilator 50 09/14/18 19:11 89 14 50 60 Height (Feet): 5 Height (Inches): 3.00 Weight (Pounds): 118 Microbiology Date/Time Source Procedure Growth Status 09/14/18 09:00 Rectum Received Laboratory Tests Test 09/14/18 21:00 09/15/18 02:19 09/15/18 06:10 09/15/18 12:30 Lactic Acid Level 2.70 mmol/L (0.4-2.0) H 4.30 mmol/L (0.66-2.22) H 3.80 mmol/L (0.4-2.0) H 4.20 mmol/L (0.4-2.0) H White Blood Count 14.6 K/UL (4.8-10.8) H Red Blood Count 4.76 M/UL (4.20-5.40) Hemoglobin 14.8 G/DL (12.0-16.0) Hematocrit 47.6 % (37.0-47.0) H Mean Corpuscular Volume 100 FL (80-99) H Mean Corpuscular Hemoglobin 31.1 PG (27.0-31.0) H Mean Corpuscular Hemoglobin Concent 31.1 G/DL (32.0-36.0) L Red Cell Distribution Width 14.9 % (11.6-14.8) H Platelet Count 154 K/UL (150-450) Mean Platelet Volume 10.1 FL (6.5-10.1) Neutrophils (%) (Auto) 81.6 % (45.0-75.0) H Lymphocytes (%) (Auto) 15.6 % (20.0-45.0) L Monocytes (%) (Auto) 2.5 % (1.0-10.0) Eosinophils (%) (Auto) 0.0 % (0.0-3.0) Basophils (%) (Auto) 0.3 % (0.0-2.0) Sodium Level 154 MMOL/L (136-145) H 153 MMOL/L (136-145) H Potassium Level 3.6 MMOL/L (3.5-5.1) 3.2 MMOL/L (3.5-5.1) L Chloride Level 117 MMOL/L (98-107) H 117 MMOL/L (98-107) H Carbon Dioxide Level 24 MMOL/L (21-32) 27 MMOL/L (21-32) Anion Gap 13 mmol/L (5-15) 9 mmol/L (5-15) Blood Urea Nitrogen 65 mg/dL (7-18) H 47 mg/dL (7-18) H Creatinine 1.5 MG/DL (0.55-1.30) H 1.3 MG/DL (0.55-1.30) Estimat Glomerular Filtration Rate mL/min (>60) mL/min (>60) Glucose Level 434 MG/DL (74-106) H 349 MG/DL (74-106) H Calcium Level 8.8 MG/DL (8.5-10.1) 8.2 MG/DL (8.5-10.1) L Calcium (Send out) Pending Phosphorus Level 2.6 MG/DL (2.5-4.9) Total Bilirubin 1.9 MG/DL (0.2-1.0) H Direct Bilirubin 0.4 MG/DL (0.0-0.3) H Aspartate Amino Transf (AST/SGOT) 19 U/L (15-37) Alanine Aminotransferase (ALT/SGPT) 12 U/L (12-78) Alkaline Phosphatase 80 U/L (46-116) Total Protein 6.3 G/DL (6.4-8.2) L Albumin 2.4 G/DL (3.4-5.0) L Globulin 4.7 g/dL Albumin/Globulin Ratio 0.5 (1.0-2.7) L Vitamin D 25-Hydroxy Pending 25-Hydroxy Vitamin D2 Pending 25-Hydroxy Vitamin D3 Pending Parathyroid Hormone (Intact) Pending Random Vancomycin Level 9.0 ug/mL Hemoglobin A1c 8.9 % (4.3-6.0) H Current Medications Medications (Trade) Dose Ordered Sig/Wayne Route PRN Reason Start Time Stop Time Status Last Admin Dose Admin Acetaminophen (Tylenol) 650 mg Q4H PRN ORAL FEVER 09/14/18 12:45 10/14/18 12:44 09/15/18 10:43 Albuterol/ Ipratropium (Albuterol/ Ipratropium) 3 ml Q6H PRN HHN Shortness of Breath 09/14/18 12:45 09/19/18 12:44 Albuterol/ Ipratropium (Albuterol/ Ipratropium) 3 ml Q6HRT HHN 09/14/18 19:00 09/19/18 18:59 09/15/18 13:08 Bisacodyl (Dulcolax) 10 mg DAILYPRN PRN RECTAL Constipation 09/14/18 12:45 10/14/18 12:44 Dextrose (Dextrose 50%) 25 ml Q30M PRN IV Hypoglycemia 09/14/18 12:45 10/14/18 12:44 Dextrose (Dextrose 50%) 50 ml Q30M PRN IV Hypoglycemia 09/14/18 12:45 10/14/18 12:44 Diphenhydramine HCl (Benadryl) 25 mg Q6H PRN ORAL Itching/Pruritis 09/14/18 12:45 10/14/18 12:44 Docusate Sodium (Colace) 100 mg EVERY 12 HOURS ORAL 09/14/18 21:00 10/14/18 20:59 09/15/18 09:16 Heparin Sodium (Porcine) (Heparin 5000 units/ml) 5,000 units EVERY 12 HOURS SUBQ 09/14/18 21:00 10/14/18 20:59 09/14/18 20:37 Insulin Aspart (NovoLOG) Q6HR SUBQ 09/14/18 16:00 10/14/18 15:59 09/15/18 11:38 Insulin Detemir (Levemir) 10 units BEDTIME SUBQ 09/15/18 21:00 10/15/18 20:59 Lorazepam (Ativan 2mg/ml 1ml) 0.5 mg Q4H PRN IV For Anxiety 09/14/18 12:45 09/21/18 12:44 Magnesium Hydroxide (Mom) 30 ml HSPRN PRN ORAL Constipation 09/14/18 12:45 10/14/18 12:44 Ondansetron HCl (Zofran) 4 mg Q6H PRN IVP Nausea & Vomiting 09/14/18 12:45 10/14/18 12:44 Pantoprazole (Protonix) 40 mg DAILY IV 09/15/18 09:00 10/15/18 08:59 09/15/18 09:16 Piperacillin Sod/ Tazobactam Sod 3.375 gm/Dextrose 100 ml @ 25 mls/hr EVERY 8 HOURS IVPB 09/14/18 15:00 09/19/18 14:59 09/15/18 14:04 Sodium Chloride 1,000 ml @ 100 mls/hr Q10H IV 09/15/18 11:30 10/15/18 11:29 09/15/18 11:35 Vancomycin HCl (Vanco rx to dose) 1 ea DAILY PRN MISC Per rx protocol 09/14/18 12:45 10/14/18 12:44 Milton Valladares MD Sep 15, 2018 17:09
[2018-09-15] MEDS ORDERED: Amikacin Rx to dose MISC PRN (17:15)
[2018-09-15] MEDS ORDERED: Amikacin 750 MG in NS 110 ML IV SCH (18:00)
--- NOTE | 2018-09-15 19:20 | NUR ---
HAND-OFF: Report given to Severino Webster RN.
--- NOTE | 2018-09-15 19:30 | NUR ---
NURSE NOTES: SEEN THE PATIENT BY DR. Cristina QUIROS.
--- NOTE | 2018-09-15 19:40 | NUR ---
NURSE NOTES: PATIENT NO RESPONSE TO VERBAL AND TACTILE STIMULI, ON ETT TO VENT AC 14/TV 500/FIO2 40%/PEEP 5, O2 SATURATION 100% NOTED AT THIS TIME, ABDOMEN SOFT, G TUBE INTACT AND PATENT, ONGOING GLUCERNA 1.2 AT 30ML/HR STATUS, NO RESIDUE NOTED, GOAL IS 60ML/HR, KEPT HOB OVER 30 DEGREES, F/C INTACT AND PATENT, YELLOW URINE OUTED GRAVITY, PERIPHERAL LINE TO RIGHT HAND 20G AND FORE ARM 20G, INTACT AND PATENT,MADE LOWER BED POSITION, ON P200 BED AND ON BED ALARM, PROVIDED CALL LIGHT WITHIN REACH, WILL CONTINUE TO MONITOR.
--- NOTE | 2018-09-15 19:58 | Nephrology Progress Note ---
Assessment/Plan Problem List: (1) Hypernatremia (2) DM (diabetes mellitus) (3) KEL (acute kidney injury) (4) Sepsis (5) Respiratory failure Assessment ARF better hypernatremia unchanged ( pt free water was reduced, on 1/2 Ns and less water flushes) Plan keep on water flushes 250 ml q 4 DC IVF TF abxs Vent support Discussed with RN Subjective Subjective remains intubated Objective Objective Last 24 Hour Vital Signs Date Time Temp Pulse Resp B/P (MAP) Pulse Ox O2 Delivery O2 Flow Rate FiO2 09/15/18 19:36 77 14 99 Mechanical Ventilator 40 09/15/18 19:28 77 14 100 Mechanical Ventilator 40 09/15/18 19:27 74 15 40 09/15/18 19:00 85 16 135/51 (79) 100 09/15/18 19:00 76 14 104/47 (66) 100 09/15/18 18:00 98.9 81 17 115/42 (66) 100 09/15/18 17:29 85 17 40 09/15/18 17:00 85 16 135/51 (79) 100 09/15/18 16:00 40 09/15/18 16:00 88 18 135/54 (81) 100 09/15/18 16:00 Mechanical Ventilator 09/15/18 15:51 87 09/15/18 15:29 86 18 40 09/15/18 15:00 76 14 108/43 (64) 100 09/15/18 14:00 78 14 94/42 (59) 97 09/15/18 13:12 79 14 98 Mechanical Ventilator 40 09/15/18 13:07 76 14 40 09/15/18 13:02 80 14 99 Mechanical Ventilator 40 09/15/18 13:00 99.2 75 15 98/52 (67) 97 09/15/18 12:00 80 14 100/47 (64) 97 09/15/18 12:00 40 09/15/18 12:00 87 14 98/50 (66) 100 09/15/18 12:00 Mechanical Ventilator 09/15/18 11:47 86 09/15/18 11:13 99.4 09/15/18 11:09 82 14 40 09/15/18 11:00 99.4 84 14 103/49 (67) 98 09/15/18 10:18 100.5 09/15/18 10:00 87 14 98/50 (66) 100 09/15/18 09:00 101.6 90 15 112/50 (70) 98 09/15/18 08:42 87 14 40 09/15/18 08:00 Mechanical Ventilator 09/15/18 08:00 91 14 119/62 (81) 100 09/15/18 08:00 40 09/15/18 07:35 91 09/15/18 07:00 86 16 99/55 (70) 99 09/15/18 06:53 88 14 99 Mechanical Ventilator 40 09/15/18 06:51 88 14 40 09/15/18 06:44 89 14 98 Mechanical Ventilator 40 09/15/18 06:00 87 17 117/51 (73) 100 09/15/18 05:08 83 14 40 60 09/15/18 05:00 84 14 123/44 (70) 100 09/15/18 04:00 Mechanical Ventilator 09/15/18 04:00 99.0 87 15 109/59 (76) 99 09/15/18 04:00 40 09/15/18 03:11 80 14 40 60 09/15/18 03:02 80 09/15/18 03:00 80 14 98/54 (69) 97 09/15/18 02:00 84 15 115/57 (76) 98 09/15/18 01:00 99.1 89 15 102/53 (69) 98 09/15/18 00:48 92 14 100 Mechanical Ventilator 40 09/15/18 00:41 93 16 98 Mechanical Ventilator 40 09/15/18 00:40 93 16 40 60 09/15/18 00:00 Mechanical Ventilator 09/15/18 00:00 40 09/15/18 00:00 100.8 93 15 112/55 (74) 99 09/14/18 23:24 93 14 40 60 09/14/18 23:11 94 09/14/18 23:00 94 14 112/49 (70) 100 09/14/18 22:00 94 15 112/51 (71) 100 09/14/18 21:28 95 15 40 60 09/14/18 21:00 96 14 120/56 (77) 100 09/14/18 20:00 99.3 87 14 126/56 (79) 100 09/14/18 20:00 Mechanical Ventilator 09/14/18 20:00 50 Intake and Output 09/14/18 09/15/18 19:00 07:00 Intake Total 2133.3 ml 2379 ml Output Total 140 ml 1185 ml Balance 1993.3 ml 1194 ml Intake Free Water 250 ml 750 ml IV Total 1883.3 ml 1549 ml Other 80 ml Output Urine Total 140 ml 1185 ml # Voids 2 Laboratory Tests 09/14/18 21:00: Lactic Acid Level 2.70H 09/15/18 02:19: Lactic Acid Level 4.30H 09/15/18 06:10: Lactic Acid Level 3.80H, White Blood Count 14.6H, Red Blood Count 4.76, Hemoglobin 14.8, Hematocrit 47.6H, Mean Corpuscular Volume 100H, Mean Corpuscular Hemoglobin 31.1H, Mean Corpuscular Hemoglobin Concent 31.1L, Red Cell Distribution Width 14.9H, Platelet Count 154, Mean Platelet Volume 10.1, Neutrophils (%) (Auto) 81.6H, Lymphocytes (%) (Auto) 15.6L, Monocytes (%) (Auto ) 2.5, Eosinophils (%) (Auto) 0.0, Basophils (%) (Auto) 0.3, Sodium Level 154H, Potassium Level 3.6, Chloride Level 117H, Carbon Dioxide Level 24, Anion Gap 13 , Blood Urea Nitrogen 65H, Creatinine 1.5H, Estimat Glomerular Filtration Rate , Glucose Level 434H, Calcium Level 8.8, Calcium (Send out) [Pending], Phosphorus Level 2.6, Total Bilirubin 1.9H, Direct Bilirubin 0.4H, Aspartate Amino Transf (AST/SGOT) 19, Alanine Aminotransferase (ALT/SGPT) 12, Alkaline Phosphatase 80, Total Protein 6.3L, Albumin 2.4L, Globulin 4.7, Albumin/ Globulin Ratio 0.5L, Vitamin D 25-Hydroxy [Pending], 25-Hydroxy Vitamin D2 [ Pending], 25-Hydroxy Vitamin D3 [Pending], Parathyroid Hormone (Intact) [Pending ], Random Vancomycin Level 9.0 09/15/18 12:30: Lactic Acid Level 4.20H, Sodium Level 153H, Potassium Level 3.2L, Chloride Level 117H, Carbon Dioxide Level 27, Anion Gap 9, Blood Urea Nitrogen 47H, Creatinine 1.3, Estimat Glomerular Filtration Rate , Glucose Level 349H, Calcium Level 8.2L, Hemoglobin A1c 8.9H Height (Feet): 5 Height (Inches): 3.00 Weight (Pounds): 118 Cardiovascular: normal rate Respiratory/Chest: rhonchi - bilaterally Extremities: moderate edema Ramez Hardin MD Sep 15, 2018 19:58
--- NOTE | 2018-09-15 20:00 | NUR ---
NURSE NOTES: FOUND LEFT EAR BLISTER 1X2.5 CM, NO SKIN TEAR, APPLIED OPTIFOAM, WILL CONTINUE TO MONITOR.
[2018-09-15] MEDS: Levemir Flexpen SUBQ SCH (20:34)
[2018-09-15] MEDS ORDERED: Zemuron 50mg/5ml Inj IV ONE (20:49)
[2018-09-15] MEDS ORDERED: Etomidate 40mg/20ml Inj IV ONE (20:49)
[2018-09-15 20:54] LABS: ANION GAP 11 mmol/L (5-15); BLOOD UREA NITROGEN 32 mg/dL (7-18); CALCIUM 8.1 MG/DL (8.5-10.1); CARBON DIOXIDE 26 MMOL/L (21-32); CHLORIDE 110 MMOL/L (98-107); CREATININE 1.1 MG/DL (0.55-1.30); POTASSIUM 3.6 MMOL/L (3.5-5.1); SODIUM 147 MMOL/L (136-145)
--- NOTE | 2018-09-15 22:00 | NUR ---
NURSE NOTES: ORAL CARE WAS DONE, ETT WITH BITE BLOCK STATUS, WILL CONTINUE TO MONITOR.
[2018-09-16] VITALS (36 sets, daily range): BP systolic 84–136; BP diastolic 38–73
--- NOTE | 2018-09-16 00:05 | NUR ---
NURSE NOTES: NO PAIN OR DISTRESS NOTED AT THIS TIME, WILL CONTINUE PLAN OF CARE.
--- NOTE | 2018-09-16 00:30 | Consultation ---
DATE OF CONSULTATION: 09/15/2018 INFECTIOUS DISEASES CONSULTATION CONSULTING PHYSICIAN: Milton Valladares M.D. ATTENDING PHYSICIAN: Yamileth Yates M.D. REFERRING PHYSICIAN: Bonnie Carolina M.D. REASON FOR CONSULTATION: Sepsis, pneumonia, fevers, leukocytosis. CHIEF COMPLAINT: The patient's chief complaint coming into the hospital is respiratory failure, altered mental status, fever, sepsis, pneumonia. HISTORY OF PRESENT ILLNESS: This is a very pleasant 77-year-old female who comes in from a detention facility and is currently in the ICU at [facility] with respiratory failure, altered mental status, fevers, leukocytosis, sepsis, pneumonia. Infectious Disease consultation was requested. I saw the patient on September 14, 2018, and started on Zosyn and vancomycin. Today, she is still febrile. I am adding amikacin. Cultures are pending at this time. Chest x-ray was consistent with pneumonia. The patient cannot add to this history. She is currently in ICU. I discussed with nursing staff. MAR was noted. Orders were noted. Notes were reviewed. Case discussed with RN. REVIEW OF SYSTEMS: CONSTITUTIONAL: She is currently febrile, not on pressors. HEAD AND NECK: She is orally intubated. CARDIAC: No pressors. GASTROINTESTINAL: No nausea, vomiting, or diarrhea. GENITOURINARY: She has a Nunez. PULMONARY: On a vent. Some secretions. SKIN: No rash. EXTREMITIES: Could not assess. NEUROLOGIC: Could not assess. She has fatigue and weakness, poorly responsive. PAST MEDICAL HISTORY: Includes the following, again obtained from the records. The patient has past medical history of G-tube and dysphagia. She has history of weakness. She has history of abscesses in the past. She has I believe sacral wound, dysphagia, G-tube, history of TIA, history of cerebral infarction-, aspiration risk, history of essential hypertension, history of encephalopathy, history of dementia, history of hemiplegia, CVA, hypertension. ALLERGIES: No known drug allergies. SOCIAL HISTORY: Negative for smoking, alcohol, or drug abuse. FAMILY HISTORY: Noncontributory per the records. No mention of tuberculosis or cancer. MEDICATIONS: Upon reviewing the MAR, she is on the following medications. She is on insulin, amikacin, vancomycin, Zosyn, sodium, pantoprazole, heparin, docusate. She is on albuterol, acetaminophen, bisacodyl, magnesium hydroxide, Zofran, lorazepam, diphenhydramine. Outside medications are noted and reconciliated. PHYSICAL EXAMINATION: VITAL SIGNS: T-max is 101.6. She has persistent temperature. Currently, temperature 99.2, pulse rate is 85, respiratory rate 16, blood pressure 135/51, saturation 100%. Pulse rate on admission was as high as 96. GENERAL: Poorly responsive. HEAD AND NECK: Orally intubated. Eye exam, no icterus. Normocephalic. No JVD. She is on a vent. HEART: Regular. No obvious gallop or murmur. ABDOMEN: Soft. Positive bowel sounds. She also has a G-tube. LUNGS: Bilateral rhonchi and rales. SKIN: No rash. MUSCULOSKELETAL: No effusion. Legs are without cellulitis. PERIPHERAL VASCULAR: No cyanosis. GENITOURINARY: She has a Nunez. Urine is slightly cloudy. LINE SITES: Without phlebitis NEUROLOGIC: Generalized weakness, poorly responsive. LABORATORY AND DIAGNOSTIC DATA: Laboratory data as follows. White count 14.6, hemoglobin 14.8. Creatinine is 1.3. LFTs were noted. Cultures are pending. Imaging studies are as follows. Chest x-ray from September 15, 2018, shows atelectasis and airspace disease bilaterally. Initial chest x-ray showed left effusion with retrocardiac consolidation. ASSESSMENT AND PLAN: 1. The patient has sepsis, fevers, leukocytosis, SIRS criteria. The patient has what looks like pneumonia. She has high risk for aspiration and healthcare-acquired pneumonia with history of CVA and also versus community-acquired pneumonia. Continue Zosyn for gram-negative anaerobe coverage, amikacin for gram-negative coverage, and vancomycin for MRSA coverage. Continue Zosyn, vancomycin, amikacin for sepsis, pneumonia, fevers, leukocytosis. UA was fairly benign. It was leukocyte esterase negative. Thus, I do not think she has UTI. Continue antibiotics. Check cultures, laboratories, chest x-ray. Monitor the patient closely. Monitor sepsis status, pneumonia status, and respiratory status. 2. ICU care. 3. Skin care protocol. 4. History of CVA and TIA, and aspiration risk. 5. Dementia. 6. Hypertension. 7. Blood pressure treatment per primary. 8. Acute kidney injury. 9. Weakness. 10. Hemiplegia. 11. Dysphagia, G-tube. 12. Encephalopathy. 13. No known drug allergies. 14. Social history is negative. 15. Family history is noncontributory. 16. MAR was noted. 17. Case discussed with RN. 18. Continue treatment per primary consultants. 19. Notes and records were noted. Orders were entered. Thank you. I will follow. Milton Valladares M.D. DR: Elaine JOB#: [id number] CC:
[2018-09-16] MEDS: Albuterol/Ipratropium 3ml neb HHN SCH ×4 (01:25→18:55)
--- NOTE | 2018-09-16 02:35 | NUR ---
NURSE NOTES: CALLED BACK FROM [facility] REGARDING VRE RECTUM RESULT, MADE CONTACT ISOLATION, WILL BE INFORMED TO DR. ANDREWS.
--- NOTE | 2018-09-16 04:00 | NUR ---
NURSE NOTES: MORNING CARE AND ORAL CARE WAS DONE.
[2018-09-16] MEDS: NovoLOG Insulin Flexpen SUBQ SCH ×4 (05:40→23:55)
--- NOTE | 2018-09-16 06:11 | NUR ---
NURSE NOTES: TEMP 100.9F NOTED AT 0600AM, GIVEN TYLENOL 650MG VIA G TUBE PRN ORDERED, APPLIED COOLING MEASURE, WILL CONTINUE TO MONITOR.
--- NOTE | 2018-09-16 06:42 | NUR ---
NURSE NOTES: SEEN THE PATIENT BY DR. WESTON, MADE NEW ORDER, CARRIED OUT.
--- NOTE | 2018-09-16 06:42 | General Progress Note ---
Assessment/Plan Problem List: (1) DM (diabetes mellitus) ICD Codes: E11.9 - Type 2 diabetes mellitus without complications SNOMED: 10482502 (2) CVA, old, hemiparesis ICD Codes: I69.359 - Hemiplegia and hemiparesis following cerebral infarction affecting unspecified side; R65.20 - Severe sepsis without septic shock SNOMED: 226479034 (3) Severe sepsis ICD Codes: A41.9 - Sepsis, unspecified organism; R65.20 - Severe sepsis without septic shock SNOMED: 90069107 (4) Respiratory failure ICD Codes: J96.90 - Respiratory failure, unspecified, unspecified whether with hypoxia or hypercapnia SNOMED: 461885830 (5) Dehydration ICD Codes: E86.0 - Dehydration SNOMED: 65244730 (6) Large ischemic R MCA stroke (7) HTN (hypertension) ICD Codes: I10 - Essential (primary) hypertension SNOMED: 31831508 (8) G tube feedings ICD Codes: Z93.1 - Gastrostomy status SNOMED: 779878353, 602058817, 754557521 Status: stable, not improved Assessment/Plan: GTF fu labs abx per ID respiratory care fu had BM Subjective ROS Limited/Unobtainable: No Allergies: Coded Allergies: No Known Allergies (Unverified , 02/04/17) Objective Last 24 Hour Vital Signs Date Time Temp Pulse Resp B/P (MAP) Pulse Ox O2 Delivery O2 Flow Rate FiO2 09/16/18 06:00 100.9 79 18 110/49 (69) 100 09/16/18 05:17 81 16 40 09/16/18 05:00 82 22 119/42 (67) 100 09/16/18 04:00 Mechanical Ventilator 09/16/18 04:00 88 09/16/18 04:00 100.0 86 18 108/45 (66) 100 09/16/18 04:00 40 09/16/18 03:23 88 15 40 09/16/18 03:00 85 18 123/42 (69) 99 09/16/18 02:00 81 14 108/52 (70) 100 09/16/18 01:35 82 14 100 Mechanical Ventilator 40 09/16/18 01:25 79 14 40 09/16/18 01:25 7 14 100 Mechanical Ventilator 40 09/16/18 01:00 76 14 106/47 (66) 100 09/16/18 00:00 99.8 76 15 109/49 (69) 100 09/16/18 00:00 40 09/16/18 00:00 Mechanical Ventilator 09/15/18 23:03 79 14 40 09/15/18 23:02 77 09/15/18 23:00 76 14 82/64 (70) 100 09/15/18 22:00 72 14 111/34 (59) 100 09/15/18 21:00 74 14 114/41 (65) 100 09/15/18 20:35 77 14 40 09/15/18 20:00 97.6 80 16 118/58 (78) 100 09/15/18 20:00 40 09/15/18 20:00 Mechanical Ventilator 09/15/18 19:36 77 14 99 Mechanical Ventilator 40 09/15/18 19:28 77 14 100 Mechanical Ventilator 40 09/15/18 19:27 74 09/15/18 19:27 74 15 40 09/15/18 19:00 85 16 135/51 (79) 100 09/15/18 19:00 76 14 104/47 (66) 100 09/15/18 18:00 98.9 81 17 115/42 (66) 100 09/15/18 17:29 85 17 40 09/15/18 17:00 85 16 135/51 (79) 100 09/15/18 16:00 40 09/15/18 16:00 88 18 135/54 (81) 100 09/15/18 16:00 Mechanical Ventilator 09/15/18 15:51 87 09/15/18 15:29 86 18 40 09/15/18 15:00 76 14 108/43 (64) 100 09/15/18 14:00 78 14 94/42 (59) 97 09/15/18 13:12 79 14 98 Mechanical Ventilator 40 09/15/18 13:07 76 14 40 09/15/18 13:02 80 14 99 Mechanical Ventilator 40 09/15/18 13:00 99.2 75 15 98/52 (67) 97 09/15/18 12:00 80 14 100/47 (64) 97 09/15/18 12:00 40 09/15/18 12:00 87 14 98/50 (66) 100 09/15/18 12:00 Mechanical Ventilator 09/15/18 11:47 86 09/15/18 11:13 99.4 09/15/18 11:09 82 14 40 09/15/18 11:00 99.4 84 14 103/49 (67) 98 09/15/18 10:18 100.5 09/15/18 10:00 87 14 98/50 (66) 100 09/15/18 09:00 101.6 90 15 112/50 (70) 98 09/15/18 08:42 87 14 40 09/15/18 08:00 Mechanical Ventilator 09/15/18 08:00 91 14 119/62 (81) 100 09/15/18 08:00 40 09/15/18 07:35 91 09/15/18 07:00 86 16 99/55 (70) 99 09/15/18 06:53 88 14 99 Mechanical Ventilator 40 09/15/18 06:51 88 14 40 09/15/18 06:44 89 14 98 Mechanical Ventilator 40 Intake and Output 09/15/18 09/16/18 18:59 06:59 Intake Total 2616.000 ml 1637 ml Output Total 925 ml 1360 ml Balance 1691.000 ml 277 ml Intake Free Water 750 ml 750 ml IV Total 1696.000 ml 377 ml Tube Feeding 120 ml 480 ml Other 50 ml 30 ml Output Urine Total 925 ml 1360 ml # Bowel Movements 1 Laboratory Tests 09/15/18 12:30: Sodium Level 153H, Potassium Level 3.2L, Chloride Level 117H, Carbon Dioxide Level 27, Anion Gap 9, Blood Urea Nitrogen 47H, Creatinine 1.3, Estimat Glomerular Filtration Rate , Glucose Level 349H, Hemoglobin A1c 8.9H, Lactic Acid Level 4.20H, Calcium Level 8.2L 09/15/18 20:20: Sodium Level 147H, Potassium Level 3.6, Chloride Level 110H, Carbon Dioxide Level 26, Anion Gap 11, Blood Urea Nitrogen 32H, Creatinine 1.1, Estimat Glomerular Filtration Rate , Glucose Level 282H, Lactic Acid Level 4.30H, Calcium Level 8.1L 09/16/18 02:05: Lactic Acid Level 3.80H 09/16/18 02:55: Lactic Acid Level 3.80H Height (Feet): 5 Height (Inches): 3.00 Weight (Pounds): 118 General Appearance: lethargic EENT: normal ENT inspection Neck: supple Cardiovascular: normal rate Respiratory/Chest: decreased breath sounds Abdomen: normal bowel sounds, non tender, soft Extremities: non-tender Ovi Brown MD Sep 16, 2018 06:42
[2018-09-16 07:05] LABS: BASOPHILS % (AUTO) 0.2 % (0.0-2.0); EOSINOPHILS % (AUTO) 0.2 % (0.0-3.0); HEMATOCRIT 40.5 % (37.0-47.0); HEMOGLOBIN 12.9 G/DL (12.0-16.0); LYMPHOCYTES % (AUTO) 13.7 % (20.0-45.0); MEAN CORPUSCULAR VOLUME 98 FL (80-99); MONOCYTES % (AUTO) 2.1 % (1.0-10.0); NEUTROPHILS % (AUTO) 83.7 % (45.0-75.0); PLATELET COUNT 141 K/UL (150-450); RED BLOOD COUNT 4.13 M/UL (4.20-5.40); RED CELL DISTRIBUTION WIDTH 14.1 % (11.6-14.8); WHITE BLOOD COUNT 15.7 K/UL (4.8-10.8)
--- NOTE | 2018-09-16 07:18 | NUR ---
HAND-OFF: Report given to FELIX PAUL.
--- NOTE | 2018-09-16 07:20 | NUR ---
NURSE NOTES: Received change of shift report from Severino RN. Pt is asleep, opens eyes to firm touch/sternal rub, withdraws to pain. Pt is orally intubated, ETT 7.0 at 22cm right lipline, with vent settings AC14, VT500, Peep 5, FIO2 40% with bilateral diminished and mild rhonchi lung sounds on auscultation. 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 Weak radial and pedal pulses on palpation with mild peripheral edema noted. Pt has peripheral IV access present on right hand #20G and right FA #20G, both saline locks, patent/intact. GT present with feeding Glucerna 1.2 infusing at 50ml/hour. Pt is tolerating feeding well with no residual noted. Dressing at GT site is dry/intact. Nunez catheter is in place, draining mildly cloudy/yellow urine. Skin has sacral stage II, right heel redness and left ear blister. Pt is on P200 pressure release mattress with bilateral heels elevated on pillows. Bed is locked with three concrete float maker rails up, in lowest position, head of bed at 30degrees and call light within reach. Will continue to monitor pt and follow plan of care per MD orders and protocol.
[2018-09-16 07:48] LABS: ALANINE AMINOTRANSFERASE 11 U/L (12-78); ALBUMIN/GLOBULIN RATIO 0.4 (1.0-2.7); ALKALINE PHOSPHATASE 103 U/L (46-116); ANION GAP 13 mmol/L (5-15); ASPARTATE AMINO TRANSFERASE 16 U/L (15-37); BILIRUBIN,TOTAL 0.9 MG/DL (0.2-1.0); BLOOD UREA NITROGEN 28 mg/dL (7-18); CALCIUM 8.7 MG/DL (8.5-10.1); CARBON DIOXIDE 24 MMOL/L (21-32); CHLORIDE 111 MMOL/L (98-107); POTASSIUM 3.4 MMOL/L (3.5-5.1); SODIUM 148 MMOL/L (136-145)
--- NOTE | 2018-09-16 07:50 | NUR ---
RESPIRATORY NOTE: Received pt on AC 14-500ml-40%FiO2- peep 5. Pt is orally intubated with ETT 7.0 @ 22cm lips line, secured by anchor fast. Toney diminished breath sounds heard upon auscultation, suctioned small amounts of thick haas yellow secretions without incidents. Duoneb TX given without adverse reactions. Oral care done, bite block in place to prevent tube biting. Pt fails weaning criteria when put on CPAP PS 10 per weaning protocol: RSBI 71, NIF -4.5, RR 24, pt is obtunded, unable to follow commands. RN Rosi made aware. Alarms are set and audible, vent is plugged into the red outlet, ambu bag is at bedside. Vent circuits and suction tubing are secured and out of the way. Pt is stable, no SOB or resp distress at this time. Will continue to monitor pt.
[2018-09-16] MEDS ORDERED: Amikacin 750 MG in NS 110 ML IV SCH (08:15)
--- NOTE | 2018-09-16 08:30 | NUR ---
NURSE NOTES: Pt's BP is fluctuating in the 80's/30's to 90's/40's. MD has been contacted and order received to place pt on IV fluids D5 0.45NS at 75ml/hour. Will process and follow as ordered. Temp now 99.4F axillary while pt is on cooling measures, fan at bedside, ice under arms/neck. Per assistant casino shift manager nurse, Tylenol via GT was given during previous shift.
[2018-09-16] MEDS: Docusate 100mg cap ORAL SCH ×2 (09:00→21:00)
--- NOTE | 2018-09-16 10:00 | NUR ---
NURSE NOTES: VS now stable with BP in the 110's/60's. Vent settings changed to FIO2 30% now, with O2sat maintained at 99%. Nunez catheter continues to drain average of 100ml/hourly. GT feeding rate has been increased to goal rate of 60ml/hour. Pt is tolerating feeding well with no residual noted.
[2018-09-16] MEDS ORDERED: D5 1/2NS 1,000 ML IV SCH (10:15)
[2018-09-16] MEDS: Heparin 5000 units/ml inj SUBQ SCH ×2 (10:16→21:00)
[2018-09-16] MEDS: Pantoprazole Inj IV SCH (10:16)
[2018-09-16] MEDS ORDERED: Etomidate 40mg/20ml Inj IV ONE (11:11)
[2018-09-16] MEDS ORDERED: Zemuron 50mg/5ml Inj IV ONE (11:11)
--- NOTE | 2018-09-16 11:24 | NUR ---
RD ASSESSMENT & RECOMMENDATIONS SEE CARE ACTIVITY FOR COMPLETE ASSESSMENT DAILY ESTIMATED NEEDS: Needs based on Critical care, sepsis, wound, DM 53.6kg 25-32 kcals/kg 5830-4017 total kcals 1.25-2 g protein/kg 67-107 g total protein 25-32ml/kcal mL/kg 9457-0543 total fluid mLs NUTRITION DIAGNOSIS: 1) Swallowing difficulty R/T dysphagia, CVA as evidenced by PEG dependent, now orally intubated. 2) Increased kcal and pro needs r/t sepsis and wound healing as evidenced by elev BG and POC (200-400's), elev WBC (15.7), febrile (Tmax 100.9), elev Na (148), sacral wound/ unstageable per MD. CURRENT TF: Glucerna 1.2 @60 hrs ENTERAL NUTRITION RECOMMENDATIONS: Glucerna 1.2 @55ml/hr x24 hrs + Prosource x1 daily to provide 1320ml, 1584 kcal, 79g + 11g pro, 1063ml free H2O - Maintain Glucerna 1.2 -> Rec to REDUCE RATE to goal of 55ml/hr - Add Prosource x1 daily to better meet est pro needs - HOB over 30 degrees - Flush per MD-> 150q6 for added 600ml free fluid per day (1063ml from TF + 600ml flushes= 1663ml free fluid per day). ------ ADDITIONAL RECOMMENDATIONS: 1) Monitor hydration status 2) Obtain an accurate calibrated bed scale wt 3) Lytes daily on TF/ replete as needed 4) Rec increase hypoglycemic agents for improved BG control 5) Sacral wound: add AYDEE BID via PEG daily + Vit C 250mg BID daily via GT
--- NOTE | 2018-09-16 12:00 | NUR ---
NURSE NOTES: Pt was seen by Dr Hardin. Order received to change IV fluid to 0.45% NS at 75ml/hour. VS stable. Pt opens eyes to loud voice/name, however does not follow with eyes, withdraws to pain. Nunez catheter continues to drain mildly cloudy/yellow urine, not at 60ml/hour. GT feeding maintained at goal rate of 60ml/hour, pt is tolerating well with no residual noted.
--- NOTE | 2018-09-16 13:03 | Nephrology Progress Note ---
Assessment/Plan Problem List: (1) Hypernatremia (2) DM (diabetes mellitus) (3) KEL (acute kidney injury) (4) Sepsis (5) Respiratory failure Assessment ARF better hypernatremia worse Plan keep on water flushes 250 ml q 4 IVF while hypotensive TF abxs Vent support Discussed with RN Subjective Subjective remains intubated Objective Objective Last 24 Hour Vital Signs Date Time Temp Pulse Resp B/P (MAP) Pulse Ox O2 Delivery O2 Flow Rate FiO2 09/16/18 12:48 71 18 99 Mechanical Ventilator 30 09/16/18 12:48 71 18 30 09/16/18 12:00 Mechanical Ventilator 09/16/18 12:00 30 09/16/18 11:15 66 16 102/46 (64) 99 09/16/18 11:00 68 16 121/52 (75) 99 09/16/18 10:42 68 16 30 09/16/18 10:30 86 18 121/55 (77) 100 09/16/18 10:15 69 17 124/47 (72) 100 09/16/18 10:11 70 17 118/48 (71) 100 09/16/18 10:00 65 14 89/43 (58) 100 09/16/18 09:45 67 16 121/44 (69) 100 09/16/18 09:36 63 14 95/42 (59) 100 09/16/18 09:30 62 15 84/42 (56) 99 09/16/18 09:12 67 17 102/46 (64) 98 09/16/18 09:01 67 16 85/38 (54) 98 09/16/18 09:00 67 15 86/44 (58) 98 09/16/18 08:37 67 15 30 09/16/18 08:30 66 15 91/46 (61) 97 09/16/18 08:05 66 16 102/47 (65) 99 09/16/18 08:00 40 09/16/18 08:00 Mechanical Ventilator 09/16/18 08:00 73 09/16/18 08:00 99.4 66 15 90/39 (56) 98 09/16/18 07:10 83 14 98 Mechanical Ventilator 30 09/16/18 07:10 83 15 30 09/16/18 07:00 73 14 100/52 (68) 100 09/16/18 07:00 73 15 100 Mechanical Ventilator 40 09/16/18 06:41 100.4 09/16/18 06:00 100.9 79 18 110/49 (69) 100 09/16/18 05:17 81 16 40 09/16/18 05:00 82 22 119/42 (67) 100 09/16/18 04:00 Mechanical Ventilator 09/16/18 04:00 88 09/16/18 04:00 100.0 86 18 108/45 (66) 100 09/16/18 04:00 40 09/16/18 03:23 88 15 40 09/16/18 03:00 85 18 123/42 (69) 99 09/16/18 02:00 81 14 108/52 (70) 100 09/16/18 01:35 82 14 100 Mechanical Ventilator 40 09/16/18 01:25 79 14 40 09/16/18 01:25 7 14 100 Mechanical Ventilator 40 09/16/18 01:00 76 14 106/47 (66) 100 09/16/18 00:00 99.8 76 15 109/49 (69) 100 09/16/18 00:00 40 09/16/18 00:00 Mechanical Ventilator 09/15/18 23:03 79 14 40 09/15/18 23:02 77 09/15/18 23:00 76 14 82/64 (70) 100 09/15/18 22:00 72 14 111/34 (59) 100 09/15/18 21:00 74 14 114/41 (65) 100 09/15/18 20:35 77 14 40 09/15/18 20:00 97.6 80 16 118/58 (78) 100 09/15/18 20:00 40 09/15/18 20:00 Mechanical Ventilator 09/15/18 19:36 77 14 99 Mechanical Ventilator 40 09/15/18 19:28 77 14 100 Mechanical Ventilator 40 09/15/18 19:27 74 09/15/18 19:27 74 15 40 09/15/18 19:00 85 16 135/51 (79) 100 09/15/18 19:00 76 14 104/47 (66) 100 09/15/18 18:00 98.9 81 17 115/42 (66) 100 09/15/18 17:29 85 17 40 09/15/18 17:00 85 16 135/51 (79) 100 09/15/18 16:00 40 09/15/18 16:00 88 18 135/54 (81) 100 09/15/18 16:00 Mechanical Ventilator 09/15/18 15:51 87 09/15/18 15:29 86 18 40 09/15/18 15:00 76 14 108/43 (64) 100 09/15/18 14:00 78 14 94/42 (59) 97 09/15/18 13:12 79 14 98 Mechanical Ventilator 40 09/15/18 13:07 76 14 40 09/15/18 13:02 80 14 99 Mechanical Ventilator 40 Intake and Output 09/15/18 09/16/18 19:00 07:00 Intake Total 2621.000 ml 1632 ml Output Total 970 ml 1335 ml Balance 1651.000 ml 297 ml Intake Free Water 750 ml 750 ml IV Total 1671.000 ml 302 ml Tube Feeding 150 ml 500 ml Other 50 ml 80 ml Output Urine Total 970 ml 1335 ml # Bowel Movements 1 Laboratory Tests 09/15/18 20:20: Sodium Level 147H, Potassium Level 3.6, Chloride Level 110H, Carbon Dioxide Level 26, Anion Gap 11, Blood Urea Nitrogen 32H, Creatinine 1.1, Estimat Glomerular Filtration Rate , Glucose Level 282H, Lactic Acid Level 4.30H, Calcium Level 8.1L 09/16/18 02:05: Lactic Acid Level 3.80H 09/16/18 02:55: Lactic Acid Level 3.80H 09/16/18 05:45: Sodium Level 148H, Potassium Level 3.4L, Chloride Level 111H, Carbon Dioxide Level 24, Anion Gap 13, Blood Urea Nitrogen 28H, Creatinine 1.0, Estimat Glomerular Filtration Rate , Glucose Level 218H, Lactic Acid Level 3.20H, Calcium Level 8.7, White Blood Count 15.7H, Red Blood Count 4.13L, Hemoglobin 12.9, Hematocrit 40.5, Mean Corpuscular Volume 98, Mean Corpuscular Hemoglobin 31.3H, Mean Corpuscular Hemoglobin Concent 31.9L, Red Cell Distribution Width 14.1, Platelet Count 141L, Mean Platelet Volume 10.4H, Neutrophils (%) (Auto) 83.7H, Lymphocytes (%) (Auto) 13.7L, Monocytes (%) (Auto) 2.1, Eosinophils (%) ( Auto) 0.2, Basophils (%) (Auto) 0.2, Magnesium Level 2.0, Total Bilirubin 0.9, Aspartate Amino Transf (AST/SGOT) 16, Alanine Aminotransferase (ALT/SGPT) 11L, Alkaline Phosphatase 103, Total Protein 6.6, Albumin 2.0L, Globulin 4.6, Albumin /Globulin Ratio 0.4L, Random Amikacin Level 8.1, Random Vancomycin Level 6.8 09/16/18 10:45: Lactic Acid Level 1.90 Height (Feet): 5 Height (Inches): 3.00 Weight (Pounds): 118 Cardiovascular: normal rate Respiratory/Chest: rhonchi - bilaterally Extremities: moderate edema Ramez Hardin MD Sep 16, 2018 13:03
[2018-09-16] MEDS ORDERED: Heparin1,000 units/500ml Premix(Conc:2 units/ml) IV PRN (13:15)
[2018-09-16] MEDS ORDERED: Lidocaine 1% Plain 30 ml INJ PRN (13:15)
--- NOTE | 2018-09-16 13:22 | General Progress Note ---
Assessment/Plan Status: stable, not improved Assessment/Plan: 77 y/o F with acute hypoxemic respiratory failure and possible sepsis admitted to ICU # Acute hypoxemic respiratory failure - Intubated in the ER and ICU management by consultants intern appreciated. - Serial ABG and CXR as needed. - Supportive care - HHN as needed # Acute kidney injury due to dehydration - IVF adjusted today to 1/2 NS and needs IVF due to hypotension. - US renal without obstruction or hydronephrosis reviewed. - Nephrology follow up appreciated. - Serial BMP and electrolytes - PTH and Vit D pending # Hypotension - Responsive to IVF - PICC ordered for AM due to possible need for vasopressors and she is FULL CODE - Will order TTE to assess EF # Hypernatremia - BMP trend and adjust free water as needed. 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 - R gaze preference noted. Withdraws to pain only. 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 # History of dementia - Supportive care - SW to attempt to find family members # DVT and GI ppx # FULL CODE by records. - CM / SW follow up for family is needed. Subjective ROS Limited/Unobtainable: Yes Allergies: Coded Allergies: No Known Allergies (Unverified , 02/04/17) Subjective Unresponsive, intubated, opens eyes to loud voice only Objective Last 24 Hour Vital Signs Date Time Temp Pulse Resp B/P (MAP) Pulse Ox O2 Delivery O2 Flow Rate FiO2 09/16/18 13:00 80 24 111/42 (65) 99 09/16/18 13:00 80 24 98 Mechanical Ventilator 30 09/16/18 12:48 71 18 99 Mechanical Ventilator 30 09/16/18 12:48 71 18 30 09/16/18 12:30 72 19 125/51 (75) 99 09/16/18 12:00 100.4 72 17 123/52 (75) 99 09/16/18 12:00 Mechanical Ventilator 09/16/18 12:00 30 09/16/18 11:15 66 16 102/46 (64) 99 09/16/18 11:00 68 16 121/52 (75) 99 09/16/18 10:42 68 16 30 09/16/18 10:30 86 18 121/55 (77) 100 09/16/18 10:15 69 17 124/47 (72) 100 09/16/18 10:11 70 17 118/48 (71) 100 09/16/18 10:00 65 14 89/43 (58) 100 09/16/18 09:45 67 16 121/44 (69) 100 09/16/18 09:36 63 14 95/42 (59) 100 09/16/18 09:30 62 15 84/42 (56) 99 09/16/18 09:12 67 17 102/46 (64) 98 09/16/18 09:01 67 16 85/38 (54) 98 09/16/18 09:00 67 15 86/44 (58) 98 09/16/18 08:37 67 15 30 09/16/18 08:30 66 15 91/46 (61) 97 09/16/18 08:05 66 16 102/47 (65) 99 09/16/18 08:00 40 09/16/18 08:00 Mechanical Ventilator 09/16/18 08:00 73 09/16/18 08:00 99.4 66 15 90/39 (56) 98 09/16/18 07:10 83 14 98 Mechanical Ventilator 30 09/16/18 07:10 83 15 30 09/16/18 07:00 73 14 100/52 (68) 100 09/16/18 07:00 73 15 100 Mechanical Ventilator 40 09/16/18 06:41 100.4 09/16/18 06:00 100.9 79 18 110/49 (69) 100 09/16/18 05:17 81 16 40 09/16/18 05:00 82 22 119/42 (67) 100 09/16/18 04:00 Mechanical Ventilator 09/16/18 04:00 88 09/16/18 04:00 100.0 86 18 108/45 (66) 100 09/16/18 04:00 40 09/16/18 03:23 88 15 40 09/16/18 03:00 85 18 123/42 (69) 99 09/16/18 02:00 81 14 108/52 (70) 100 09/16/18 01:35 82 14 100 Mechanical Ventilator 40 09/16/18 01:25 79 14 40 09/16/18 01:25 7 14 100 Mechanical Ventilator 40 09/16/18 01:00 76 14 106/47 (66) 100 09/16/18 00:00 99.8 76 15 109/49 (69) 100 09/16/18 00:00 40 09/16/18 00:00 Mechanical Ventilator 09/15/18 23:03 79 14 40 09/15/18 23:02 77 09/15/18 23:00 76 14 82/64 (70) 100 09/15/18 22:00 72 14 111/34 (59) 100 09/15/18 21:00 74 14 114/41 (65) 100 09/15/18 20:35 77 14 40 09/15/18 20:00 97.6 80 16 118/58 (78) 100 09/15/18 20:00 40 09/15/18 20:00 Mechanical Ventilator 09/15/18 19:36 77 14 99 Mechanical Ventilator 40 09/15/18 19:28 77 14 100 Mechanical Ventilator 40 09/15/18 19:27 74 09/15/18 19:27 74 15 40 09/15/18 19:00 85 16 135/51 (79) 100 09/15/18 19:00 76 14 104/47 (66) 100 09/15/18 18:00 98.9 81 17 115/42 (66) 100 09/15/18 17:29 85 17 40 09/15/18 17:00 85 16 135/51 (79) 100 09/15/18 16:00 40 09/15/18 16:00 88 18 135/54 (81) 100 09/15/18 16:00 Mechanical Ventilator 09/15/18 15:51 87 09/15/18 15:29 86 18 40 09/15/18 15:00 76 14 108/43 (64) 100 09/15/18 14:00 78 14 94/42 (59) 97 Intake and Output 09/15/18 09/16/18 19:00 07:00 Intake Total 2621.000 ml 1632 ml Output Total 970 ml 1335 ml Balance 1651.000 ml 297 ml Intake Free Water 750 ml 750 ml IV Total 1671.000 ml 302 ml Tube Feeding 150 ml 500 ml Other 50 ml 80 ml Output Urine Total 970 ml 1335 ml # Bowel Movements 1 Laboratory Tests 09/15/18 20:20: Sodium Level 147H, Potassium Level 3.6, Chloride Level 110H, Carbon Dioxide Level 26, Anion Gap 11, Blood Urea Nitrogen 32H, Creatinine 1.1, Estimat Glomerular Filtration Rate , Glucose Level 282H, Lactic Acid Level 4.30H, Calcium Level 8.1L 09/16/18 02:05: Lactic Acid Level 3.80H 09/16/18 02:55: Lactic Acid Level 3.80H 09/16/18 05:45: Sodium Level 148H, Potassium Level 3.4L, Chloride Level 111H, Carbon Dioxide Level 24, Anion Gap 13, Blood Urea Nitrogen 28H, Creatinine 1.0, Estimat Glomerular Filtration Rate , Glucose Level 218H, Lactic Acid Level 3.20H, Calcium Level 8.7, White Blood Count 15.7H, Red Blood Count 4.13L, Hemoglobin 12.9, Hematocrit 40.5, Mean Corpuscular Volume 98, Mean Corpuscular Hemoglobin 31.3H, Mean Corpuscular Hemoglobin Concent 31.9L, Red Cell Distribution Width 14.1, Platelet Count 141L, Mean Platelet Volume 10.4H, Neutrophils (%) (Auto) 83.7H, Lymphocytes (%) (Auto) 13.7L, Monocytes (%) (Auto) 2.1, Eosinophils (%) ( Auto) 0.2, Basophils (%) (Auto) 0.2, Magnesium Level 2.0, Total Bilirubin 0.9, Aspartate Amino Transf (AST/SGOT) 16, Alanine Aminotransferase (ALT/SGPT) 11L, Alkaline Phosphatase 103, Total Protein 6.6, Albumin 2.0L, Globulin 4.6, Albumin /Globulin Ratio 0.4L, Random Amikacin Level 8.1, Random Vancomycin Level 6.8 09/16/18 10:45: Lactic Acid Level 1.90 Height (Feet): 5 Height (Inches): 3.00 Weight (Pounds): 118 General Appearance: moderate distress EENT: PERRL/EOMI, other - R side eye deviation Neck: non-tender Cardiovascular: normal rate Respiratory/Chest: lungs clear, no respiratory distress Abdomen: non tender, soft Neurologic: outside collector II-XII grossly normal Skin: normal pigmentation Geovanny Jerez MD Sep 16, 2018 13:22
--- NOTE | 2018-09-16 13:57 | Pulmonolgy Critical Care Note ---
Critical Care - Asmt/Plan Assessment/Plan: Pulmonary CCM Progress Note Critical Care - Asmt/Plan Problems: (1) Endotracheally intubated (2) Ventilator dependence (3) Sepsis, on pressors PRN (4) Pneumonia (5) Electrolyte imbalance (6) Dehydration (7) Altered mental status (8) Hypernatremia (9) Respiratory failure (10) Lactic acid acidosis (11) H/O: CVA (cerebrovascular accident) (12) G tube feedings (13) KEL (acute kidney injury) Respiratory: monitor respiratory rate, adjust FIO2, ABG, other - HHN's, pulmonary hygiene Cardiac: continue to monitor HR/BP Renal: keep IV fluid - D5W@100 + add free H2O via GT, check electrolytes, other - F/U renal recs Infectious Disease: check cultures, continue antibiotics - Vanco/Zosyn per ID Gastrointestinal: other - hold TF's until stable then resume Endocrine: monitor blood sugar, continue sliding scale insulin Hematologic: monitor H/H Neurologic: keep patient comfortable - monitor MS, consider neuro eval and EEG Prophylaxis: Protonix, Heparin Disposition: keep in ICU Time Spent (Minutes): 40 Notes Reviewed: microbiological laboratory technician, renal, ID, other - ERMD Discussed with: nurses, consultants, other - FC Critical Care - Objective Vital Signs Noted Status: sedated - intubated Condition: critical HEENT: atraumatic, normocephalic, other - ETT OGT weak gag Lungs: rhonchi Heart: HR/BP stable Abdomen: soft, non-tender, active bowel sounds, feeding tube Extremities: no C/C/E Micro: Microbiology Date/Time Source Procedure Growth Status 09/14/18 09:00 Rectum Received Critical Care - Subjective ROS Limited/Unobtainable: Yes ICU Day: 3 Intubation Day: 3 Interval Events: 77 F NHR h/o dementia, CVA, GT, HTN, HL a/w AMS and SOB intubated in ER Na 167 Cr 1.7 LA elevated + hemoconcentration No gag in ER + faint gag now + F no C no further hx obtainable Condition: critical IV Access: peripheral - x2 EKG Rhythm: Sinus Rhythm FI02: 60 Vent Support Breath Rate: 14 Vent Support Mode: AC Vent Tidal Volume: 500 Sputum Amount: Small PEEP: 5.0 PIP: 23 Secretions: scant thick Subjective: ARLETTE CXR: L RC inf, small L eff, ETT ET-Tube: 7.0 ET Position: 22 Labs: Laboratory Tests noted Critical Care - Objective Last 24 Hour Vital Signs Date Time Temp Pulse Resp B/P (MAP) Pulse Ox O2 Delivery O2 Flow Rate FiO2 09/16/18 13:00 80 24 111/42 (65) 99 09/16/18 13:00 80 24 98 Mechanical Ventilator 30 09/16/18 12:48 71 18 99 Mechanical Ventilator 30 09/16/18 12:48 71 18 30 09/16/18 12:30 72 19 125/51 (75) 99 09/16/18 12:00 100.4 72 17 123/52 (75) 99 09/16/18 12:00 Mechanical Ventilator 09/16/18 12:00 72 09/16/18 12:00 30 09/16/18 11:15 66 16 102/46 (64) 99 09/16/18 11:00 68 16 121/52 (75) 99 09/16/18 10:42 68 16 30 09/16/18 10:30 86 18 121/55 (77) 100 09/16/18 10:15 69 17 124/47 (72) 100 09/16/18 10:11 70 17 118/48 (71) 100 09/16/18 10:00 65 14 89/43 (58) 100 09/16/18 09:45 67 16 121/44 (69) 100 09/16/18 09:36 63 14 95/42 (59) 100 09/16/18 09:30 62 15 84/42 (56) 99 09/16/18 09:12 67 17 102/46 (64) 98 09/16/18 09:01 67 16 85/38 (54) 98 09/16/18 09:00 67 15 86/44 (58) 98 09/16/18 08:37 67 15 30 09/16/18 08:30 66 15 91/46 (61) 97 09/16/18 08:05 66 16 102/47 (65) 99 09/16/18 08:00 40 09/16/18 08:00 Mechanical Ventilator 09/16/18 08:00 73 09/16/18 08:00 99.4 66 15 90/39 (56) 98 09/16/18 07:10 83 14 98 Mechanical Ventilator 30 09/16/18 07:10 83 15 30 09/16/18 07:00 73 14 100/52 (68) 100 09/16/18 07:00 73 15 100 Mechanical Ventilator 40 09/16/18 06:41 100.4 09/16/18 06:00 100.9 79 18 110/49 (69) 100 09/16/18 05:17 81 16 40 09/16/18 05:00 82 22 119/42 (67) 100 09/16/18 04:00 Mechanical Ventilator 09/16/18 04:00 88 09/16/18 04:00 100.0 86 18 108/45 (66) 100 09/16/18 04:00 40 09/16/18 03:23 88 15 40 09/16/18 03:00 85 18 123/42 (69) 99 09/16/18 02:00 81 14 108/52 (70) 100 09/16/18 01:35 82 14 100 Mechanical Ventilator 40 09/16/18 01:25 79 14 40 09/16/18 01:25 7 14 100 Mechanical Ventilator 40 09/16/18 01:00 76 14 106/47 (66) 100 09/16/18 00:00 99.8 76 15 109/49 (69) 100 09/16/18 00:00 40 09/16/18 00:00 Mechanical Ventilator 09/15/18 23:03 79 14 40 09/15/18 23:02 77 09/15/18 23:00 76 14 82/64 (70) 100 09/15/18 22:00 72 14 111/34 (59) 100 09/15/18 21:00 74 14 114/41 (65) 100 09/15/18 20:35 77 14 40 09/15/18 20:00 97.6 80 16 118/58 (78) 100 09/15/18 20:00 40 09/15/18 20:00 Mechanical Ventilator 09/15/18 19:36 77 14 99 Mechanical Ventilator 40 09/15/18 19:28 77 14 100 Mechanical Ventilator 40 09/15/18 19:27 74 09/15/18 19:27 74 15 40 09/15/18 19:00 85 16 135/51 (79) 100 09/15/18 19:00 76 14 104/47 (66) 100 09/15/18 18:00 98.9 81 17 115/42 (66) 100 09/15/18 17:29 85 17 40 09/15/18 17:00 85 16 135/51 (79) 100 09/15/18 16:00 40 09/15/18 16:00 88 18 135/54 (81) 100 09/15/18 16:00 Mechanical Ventilator 09/15/18 15:51 87 09/15/18 15:29 86 18 40 09/15/18 15:00 76 14 108/43 (64) 100 09/15/18 14:00 78 14 94/42 (59) 97 Micro: Microbiology Date/Time Source Procedure Growth Status 09/14/18 08:30 Blood Blood Culture - Preliminary NO GROWTH AFTER 24 HOURS Resulted 09/14/18 08:30 Blood Blood Culture - Preliminary NO GROWTH AFTER 24 HOURS Resulted 09/14/18 09:00 Nasal Nares MRSA Culture - Final Staphylococcus Aureus - Mrsa Complete 09/14/18 09:00 Rectum VRE Culture - Final Enterococcus Faecium - Vre Complete 09/14/18 09:00 Rectum - Final NO CARBAPENEM-RESISTANT ENTEROBACTERI... Complete Accucheck: 346 Critical Care - Subjective ROS Limited/Unobtainable: No FI02: 30 Vent Support Breath Rate: 14 Vent Support Mode: AC Vent Tidal Volume: 500 Sputum Amount: Small PEEP: 5.0 PIP: 24 Tube Feeding Amount: 60 I&O: Intake and Output 09/15/18 09/16/18 19:00 07:00 Intake Total 2621.000 ml 1632 ml Output Total 970 ml 1335 ml Balance 1651.000 ml 297 ml Intake Free Water 750 ml 750 ml IV Total 1671.000 ml 302 ml Tube Feeding 150 ml 500 ml Other 50 ml 80 ml Output Urine Total 970 ml 1335 ml # Bowel Movements 1 ET-Tube: 7.0 ET Position: 22 Marcelo Swift MD Sep 16, 2018 13:57
--- NOTE | 2018-09-16 14:17 | NUR ---
NURSE NOTES: Tylenol was administered via GT for temp 100.9. SBP remains above 100. IV fluids continue to infuse o.45% NS at 75ml/hour.
[2018-09-16] MEDS ORDERED: Tubing IV Secondary IV ONE (15:29)
[2018-09-16] MEDS ORDERED: NS 275ml ONE (15:29)
--- NOTE | 2018-09-16 16:13 | NUR ---
NURSE NOTES: Pt was seen by Dr Swift. Order received for NS 250ml bolus x1. CDiff and OB stool collect. Will process and follow as ordered. Temp now 98.9F axillary.
[2018-09-16] MEDS ORDERED: NS 250 ML IVPB ONE (16:15)
[2018-09-16] MEDS: Amikacin 750 MG in NS 110 ML IV SCH (18:16)
--- NOTE | 2018-09-16 18:30 | NUR ---
NURSE NOTES: Pt was cleaned and repositioned with lower extremities elevated on pillows. Pt is afebrile with last temp at 98.6F. VS stable.
--- NOTE | 2018-09-16 18:57 | NUR ---
RESPIRATORY NOTE: Received pt on AC 14, 500VT, 30%, PEEP +5. Pt intubated w/ ETT 7.0 @ 22cm lipline, secured by anchorfast. Pt asleep/disoriented, responds to stimuli. Bite block in place as pt tends to clench jaw. No wrist restraints, pt unable to move hands. B/S emilie. clear-diminished, sxn small amounts of thick, haas-brown secretions. Vent plugged into red outlet, ambubag at bedside. Pt in no appaent distress at this time. Will continue to monitor pt.
--- NOTE | 2018-09-16 19:30 | NUR ---
HAND-OFF: Report given to Luda [place]. VS stable. Endorsed plan of care.
--- NOTE | 2018-09-16 19:31 | NUR ---
NURSE NOTES: Endorsement received from FELIX Aranda. Patient obtunded. sinus rhythm on the monitor. Orally intubated with ET 7.0 22 lipline. AC 14 Vt 500 PEEP 5 30% FiO2. With GT patent and intact. Receiving Glucerna 1.2 60ml/hr. No residual. Nunez to urimeter. With right hand g 20, right forearm g20. On 02/14 NS 75 ml/hr. Head of bed elevated. Call light within reach. Bed locked and in low position. Bed alarm on.
[2018-09-16] MEDS: Levemir Flexpen SUBQ SCH (21:00)
--- NOTE | 2018-09-16 21:00 | NUR ---
NURSE NOTES: Heparin not given due to low platelet count.
--- NOTE | 2018-09-16 23:00 | NUR ---
NURSE NOTES: Vital signs stable. Neuro status same.
[2018-09-17] VITALS (23 sets, daily range): BP systolic 90–138; BP diastolic 39–67
--- NOTE | 2018-09-17 | NUR ---
NURSE NOTES: Temp 100.8F. Cooling measures initiated. PRN tylenol given.
[2018-09-17] MEDS: Albuterol/Ipratropium 3ml neb HHN SCH ×4 (01:05→19:06)
--- NOTE | 2018-09-17 02:00 | NUR ---
NURSE NOTES: Tolerating GT feeding. Repositioned as scheduled.
--- NOTE | 2018-09-17 04:00 | NUR ---
NURSE NOTES: Patient passed soft to liquid brown stool, patient on stool softener. Bed bath, oral care, change of linens done.
[2018-09-17 05:15] LABS: HEMATOCRIT 36.2 % (37.0-47.0); MEAN CORPUSCULAR VOLUME 94 FL (80-99); PLATELET COUNT 119 K/UL (150-450); RED BLOOD COUNT 3.85 M/UL (4.20-5.40); RED CELL DISTRIBUTION WIDTH 13.2 % (11.6-14.8); WHITE BLOOD COUNT 13.8 K/UL (4.8-10.8)
[2018-09-17] MEDS: NovoLOG Insulin Flexpen SUBQ SCH ×3 (05:46→17:38)
[2018-09-17 05:52] LABS: ALANINE AMINOTRANSFERASE < 6 U/L (12-78); ALBUMIN 1.4 G/DL (3.4-5.0); ALBUMIN/GLOBULIN RATIO 0.3 (1.0-2.7); ALKALINE PHOSPHATASE 90 U/L (46-116); ANION GAP 9 mmol/L (5-15); ASPARTATE AMINO TRANSFERASE 18 U/L (15-37); BILIRUBIN,TOTAL 0.6 MG/DL (0.2-1.0); BLOOD UREA NITROGEN 13 mg/dL (7-18); CALCIUM 8.5 MG/DL (8.5-10.1); CARBON DIOXIDE 24 MMOL/L (21-32); CHLORIDE 104 MMOL/L (98-107); CREATININE 0.7 MG/DL (0.55-1.30); SODIUM 137 MMOL/L (136-145)
--- NOTE | 2018-09-17 06:00 | NUR ---
NURSE NOTES: Suctioned scant amount of brownish pink, about 3-5ml from the mouth. Residual checked, only 50 ml of feeding. Kept HOB elevated. Feeding turned off at this time to prevent patient from vomiting.
--- NOTE | 2018-09-17 07:25 | NUR ---
HAND-OFF: Report given to Juana Briscoe RN.
--- NOTE | 2018-09-17 07:26 | NUR ---
NURSE NOTES: Report received from FELIX Lares. Pt is sleeping in bed. Able to open eyes to pain. Unable to follow commands. Non-verbal. Sinus rhythm on alarm security or surveillance monitor. ETT 7.0/22cm AC 14, TV 500, FiO2 30%, P 5. O2 sat 99%. No respiratory distress noted. G-tube on hold for now since pt vomited. Nunez in place draining to gravity. IV to right G20 and right FA 20 patent and asymptomatic. Pt is on 1/2NS at 75 cc/hr. Bed in lowest position. Side rails up x3. Will resume plan of care.
--- NOTE | 2018-09-17 07:41 | NUR ---
NURSE NOTES: PRN Zofran IV given for small amount of vomiting. Will continue to monitor.
--- NOTE | 2018-09-17 08:39 | NUR ---
NURSE NOTES: Cleaned pt for moderate amount of loose BM and repositioned pt. Will continue to monitor.
[2018-09-17] MEDS: Docusate 100mg cap ORAL SCH ×2 (08:41→21:21)
[2018-09-17] MEDS: Heparin 5000 units/ml inj SUBQ SCH ×2 (08:41→21:00)
--- NOTE | 2018-09-17 10:00 | NUR ---
NURSE NOTES: Turned and repositioned pt. Temp 99.3. Cooling measures continued. Pt opens eyes to pain. Telephone consent for PICC line received from brother.
[2018-09-17] MEDS: Pantoprazole Inj IV SCH (10:13)
--- NOTE | 2018-09-17 11:50 | NUR ---
HOSPITAL SECRETARYELECTROPHYSIOLOGY TECHNOLOGIST SI: RESP FAILURE ETT/VENT SUPPORT AMS T. 99.3 HR 74 RR 18 B/P 124/80 AC 14 TV 500 FIO2 30% PEEP 5 WBC 13.8 K 3.0 IS: VANCO IV IVF NS @ 75ML/HR ZOSYN IV ALB INLINE ICU STATUS
[2018-09-17] MEDS: Vancomycin 750mg/NS 275ml IVPB SCH ×2 (11:56)
--- NOTE | 2018-09-17 12:17 | NUR ---
NURSE NOTES: Dr Swift here to see the patient. Updated him with pt's current condition, including low K. Orders received, noted, and carried out. Also notified RT for weaning.
--- NOTE | 2018-09-17 12:23 | GI Progress Note ---
Assessment/Plan Problems: (1) DM (diabetes mellitus) ICD Codes: E11.9 - Type 2 diabetes mellitus without complications SNOMED: 32438081 (2) Dehydration ICD Codes: E86.0 - Dehydration SNOMED: 60114392 (3) G tube feedings ICD Codes: Z93.1 - Gastrostomy status SNOMED: 100975077, 893670754, 395780193 (4) Electrolyte imbalance ICD Codes: E87.8 - Other disorders of electrolyte and fluid balance, not elsewhere classified SNOMED: 316391008 (5) Sepsis ICD Codes: A41.9 - Sepsis, unspecified organism SNOMED: 13979337 Status: unchanged Status Narrative Discussed with Dr. Brown. Assessment/Plan GTF reglan ATC fu labs abx per ID respiratory care had BM The patient was seen and examined at bedside and all new and available data was reviewed in the patients chart. I agree with the above findings, impression and plan. (Patient seen earlier today. Signature stamp does not reflect patient encounter time.). - Ovi Brown MD Subjective Subjective limited Objective Last 24 Hour Vital Signs Date Time Temp Pulse Resp B/P (MAP) Pulse Ox O2 Delivery O2 Flow Rate FiO2 09/17/18 11:10 71 15 30 09/17/18 11:00 72 15 90/39 (56) 99 09/17/18 10:00 74 14 105/48 (67) 99 09/17/18 09:25 73 15 30 09/17/18 09:00 74 16 124/50 (74) 100 09/17/18 08:00 30 09/17/18 08:00 82 15 116/47 (70) 99 09/17/18 08:00 Mechanical Ventilator 09/17/18 07:43 83 09/17/18 07:12 79 16 100 Mechanical Ventilator 30 09/17/18 07:02 78 16 100 Mechanical Ventilator 30 09/17/18 07:00 85 19 130/67 (88) 98 09/17/18 07:00 99.3 76 14 114/49 (70) 100 09/17/18 06:45 76 17 30 09/17/18 06:00 85 19 130/67 (88) 98 09/17/18 05:03 73 15 30 09/17/18 05:00 74 15 106/50 (68) 100 09/17/18 04:00 Mechanical Ventilator 09/17/18 04:00 86 09/17/18 04:00 30 09/17/18 04:00 99.2 75 16 105/44 (64) 98 09/17/18 03:05 90 16 30 09/17/18 03:00 91 15 111/43 (65) 97 09/17/18 02:00 95 18 105/57 (73) 96 09/17/18 01:15 93 19 98 Mechanical Ventilator 30 09/17/18 01:05 97 24 30 09/17/18 01:05 97 24 97 Mechanical Ventilator 30 09/17/18 01:00 97 20 113/47 (69) 97 09/17/18 00:48 100.6 09/17/18 00:00 80 09/17/18 00:00 30 09/17/18 00:00 100.8 80 20 107/44 (65) 98 09/17/18 00:00 Mechanical Ventilator 09/16/18 23:00 78 19 113/47 (69) 98 09/16/18 22:50 78 18 30 09/16/18 22:00 76 18 113/47 (69) 99 09/16/18 21:11 76 19 30 09/16/18 21:00 76 18 114/49 (70) 99 09/16/18 20:00 Mechanical Ventilator 09/16/18 20:00 30 09/16/18 20:00 98.7 76 21 107/46 (66) 99 09/16/18 20:00 75 09/16/18 19:05 73 20 100 Mechanical Ventilator 30 09/16/18 19:00 74 20 136/73 (94) 100 09/16/18 18:55 71 19 99 Mechanical Ventilator 30 09/16/18 18:53 71 19 30 09/16/18 18:00 98.6 70 20 116/47 (70) 99 09/16/18 17:00 65 17 108/43 (64) 100 09/16/18 16:42 65 15 30 09/16/18 16:00 98.8 68 15 102/48 (66) 100 09/16/18 16:00 Mechanical Ventilator 09/16/18 16:00 30 09/16/18 16:00 68 09/16/18 15:30 76 20 30 09/16/18 15:00 77 18 101/47 (65) 99 09/16/18 14:00 81 19 110/45 (66) 99 09/16/18 13:00 80 24 111/42 (65) 99 09/16/18 13:00 80 24 98 Mechanical Ventilator 30 09/16/18 12:48 71 18 99 Mechanical Ventilator 30 09/16/18 12:48 71 18 30 09/16/18 12:30 72 19 125/51 (75) 99 Intake and Output 09/16/18 09/17/18 18:59 06:59 Intake Total 2350 ml 2558 ml Output Total 930 ml 1150 ml Balance 1420 ml 1408 ml Intake Free Water 750 ml 750 ml IV Total 800 ml 1088 ml Tube Feeding 690 ml 720 ml Other 110 ml Output Urine Total 930 ml 1150 ml # Bowel Movements 1 Laboratory Tests Test 09/16/18 16:15 09/17/18 04:25 Stool Occult Blood Negative (NEGATIVE) White Blood Count 13.8 K/UL (4.8-10.8) H Red Blood Count 3.85 M/UL (4.20-5.40) L Hemoglobin 12.0 G/DL (12.0-16.0) Hematocrit 36.2 % (37.0-47.0) L Mean Corpuscular Volume 94 FL (80-99) Mean Corpuscular Hemoglobin 31.1 PG (27.0-31.0) H Mean Corpuscular Hemoglobin Concent 33.1 G/DL (32.0-36.0) Red Cell Distribution Width 13.2 % (11.6-14.8) Platelet Count 119 K/UL (150-450) L Mean Platelet Volume 11.3 FL (6.5-10.1) H Neutrophils (%) (Auto) % (45.0-75.0) Lymphocytes (%) (Auto) % (20.0-45.0) Monocytes (%) (Auto) % (1.0-10.0) Eosinophils (%) (Auto) % (0.0-3.0) Basophils (%) (Auto) % (0.0-2.0) Sodium Level 137 MMOL/L (136-145) # Potassium Level 3.0 MMOL/L (3.5-5.1) L Chloride Level 104 MMOL/L (98-107) Carbon Dioxide Level 24 MMOL/L (21-32) Anion Gap 9 mmol/L (5-15) Blood Urea Nitrogen 13 mg/dL (7-18) Creatinine 0.7 MG/DL (0.55-1.30) Estimat Glomerular Filtration Rate mL/min (>60) Glucose Level 269 MG/DL (74-106) H Calcium Level 8.5 MG/DL (8.5-10.1) Total Bilirubin 0.6 MG/DL (0.2-1.0) Aspartate Amino Transf (AST/SGOT) 18 U/L (15-37) Alanine Aminotransferase (ALT/SGPT) < 6 U/L (12-78) L Alkaline Phosphatase 90 U/L (46-116) Total Protein 6.1 G/DL (6.4-8.2) L Albumin 1.4 G/DL (3.4-5.0) L Globulin 4.7 g/dL Albumin/Globulin Ratio 0.3 (1.0-2.7) L Microbiology Date/Time Source Procedure Growth Status 09/16/18 16:15 Stool Clostridium difficile Toxin Assay - Final Complete Height (Feet): 5 Height (Inches): 3.00 Weight (Pounds): 118 General Appearance: no apparent distress Cardiovascular: normal rate Respiratory/Chest: normal breath sounds, no respiratory distress Abdominal Exam: normal bowel sounds, non tender, soft, GT site - c/d/i Extremities: non-tender Valente Bethea NP Sep 17, 2018 12:23
[2018-09-17] MEDS ORDERED: Metoclopramide 10mg/2ml Inj IVP PRN (12:30)
--- NOTE | 2018-09-17 13:12 | Infectious Diseases Prog Note ---
Assessment/Plan Assessment/Plan ASSESSMENT AND PLAN: 1. sepsis, pneumonia, leukocytosis, fevers, sirs, ua le neg - zosyn, amikacin, vancomycin - f/u on labs and chest x-ray - sputum culture ordered but cancelled on not collected - re-order - blood cultures negative - monitor clinically, icu supportive care, vent - d/w RN at length 2. ICU care. 3. Skin care protocol. 4. History of CVA and TIA, and aspiration risk. 5. Dementia. 6. Hypertension. 7. Blood pressure treatment per primary. 8. Acute kidney injury. 9. Weakness. 10. Hemiplegia. 11. Dysphagia, G-tube. 12. Encephalopathy. 13. No known drug allergies. 14. Social history is negative. 15. Family history is noncontributory. 16. MAR was noted. 17. Case discussed with RN. 18. Continue treatment per primary consultants. 19. Notes and records were noted. Orders were entered. 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, vre colonization Subjective Constitutional: Reports: fever, fatigue, other HEENT: Reports: congestion, other - on vent Respiratory: Reports: shortness of breath - on vent Cardiovascular: Denies: chest pain Gastrointestinal/Abdominal: Denies: nausea, vomiting, diarrhea Genitourinary: Reports: other - + taylor - urine slt cloudy Neurologic: Denies: headache Psychiatric: Denies: depression Skin: Denies: rash Hematologic: Denies: bleeding Musculoskeletal: Denies: pain Allergies: Coded Allergies: No Known Allergies (Unverified , 02/04/17) Objective Vital Signs Last 24 Hour Vital Signs Date Time Temp Pulse Resp B/P (MAP) Pulse Ox O2 Delivery O2 Flow Rate FiO2 09/17/18 12:51 66 14 98 Mechanical Ventilator 30 09/17/18 12:50 66 14 30 09/17/18 11:10 71 15 30 09/17/18 11:00 72 15 90/39 (56) 99 09/17/18 10:00 74 14 105/48 (67) 99 09/17/18 09:25 73 15 30 09/17/18 09:00 74 16 124/50 (74) 100 09/17/18 08:00 30 09/17/18 08:00 82 15 116/47 (70) 99 09/17/18 08:00 Mechanical Ventilator 09/17/18 07:43 83 09/17/18 07:12 79 16 100 Mechanical Ventilator 30 09/17/18 07:02 78 16 100 Mechanical Ventilator 30 09/17/18 07:00 85 19 130/67 (88) 98 09/17/18 07:00 99.3 76 14 114/49 (70) 100 09/17/18 06:45 76 17 30 09/17/18 06:00 85 19 130/67 (88) 98 09/17/18 05:03 73 15 30 09/17/18 05:00 74 15 106/50 (68) 100 09/17/18 04:00 Mechanical Ventilator 09/17/18 04:00 86 09/17/18 04:00 30 09/17/18 04:00 99.2 75 16 105/44 (64) 98 09/17/18 03:05 90 16 30 09/17/18 03:00 91 15 111/43 (65) 97 09/17/18 02:00 95 18 105/57 (73) 96 09/17/18 01:15 93 19 98 Mechanical Ventilator 30 09/17/18 01:05 97 24 30 09/17/18 01:05 97 24 97 Mechanical Ventilator 30 09/17/18 01:00 97 20 113/47 (69) 97 09/17/18 00:48 100.6 09/17/18 00:00 80 09/17/18 00:00 30 09/17/18 00:00 100.8 80 20 107/44 (65) 98 09/17/18 00:00 Mechanical Ventilator 09/16/18 23:00 78 19 113/47 (69) 98 09/16/18 22:50 78 18 30 09/16/18 22:00 76 18 113/47 (69) 99 09/16/18 21:11 76 19 30 09/16/18 21:00 76 18 114/49 (70) 99 09/16/18 20:00 Mechanical Ventilator 09/16/18 20:00 30 09/16/18 20:00 98.7 76 21 107/46 (66) 99 09/16/18 20:00 75 09/16/18 19:05 73 20 100 Mechanical Ventilator 30 09/16/18 19:00 74 20 136/73 (94) 100 09/16/18 18:55 71 19 99 Mechanical Ventilator 30 09/16/18 18:53 71 19 30 09/16/18 18:00 98.6 70 20 116/47 (70) 99 09/16/18 17:00 65 17 108/43 (64) 100 09/16/18 16:42 65 15 30 09/16/18 16:00 98.8 68 15 102/48 (66) 100 09/16/18 16:00 Mechanical Ventilator 09/16/18 16:00 30 09/16/18 16:00 68 09/16/18 15:30 76 20 30 09/16/18 15:00 77 18 101/47 (65) 99 09/16/18 14:00 81 19 110/45 (66) 99 09/16/18 13:00 80 24 111/42 (65) 99 09/16/18 13:00 80 24 98 Mechanical Ventilator 30 Height (Feet): 5 Height (Inches): 3.00 Weight (Pounds): 118 General Appearance: no acute distress HEENT: normocephalic, atraumatic, anicteric, mucous membranes moist, other - oral - intubated Respiratory/Chest: crackles/rales, rhonchi - bilaterally Cardiovascular: normal rate, regular rhythm, no gallop/murmur, no JVD Abdomen: normal bowel sounds, soft, non tender, no organomegaly, non distended Genitourinary: other - + taylor - urine cloudy Extremities: no cyanosis Skin: no rash Neurologic/Psychiatric: other - sedated, on vent, weak Lymphatic: no neck adenopathy Musculoskeletal: no effusion Objective Chest x-ray - 09/15/18 - COMPARISON: Chest x-ray, 09/14/18 933 FINDINGS: Lungs: Bibasilar lung atelectasis/airspace disease. Mild interstitial prominence. Pleural space: Small right pleural effusion, slightly worse. Improved small left pleural effusion. No pneumothorax. Heart: Unremarkable. No cardiomegaly. Mediastinum: Unremarkable. Bones/joints: Unremarkable. Tubes, lines and devices: Stable endotracheal tube. IMPRESSION: 1. Stable endotracheal tube. 2. Bibasilar lung atelectasis/airspace disease. Mild interstitial prominence. 3. Small right pleural effusion, slightly worse. Improved small left pleural effusion. Microbiology Date/Time Source Procedure Growth Status 09/14/18 08:30 Blood Blood Culture - Preliminary NO GROWTH AFTER 48 HOURS Resulted 09/14/18 09:00 Nasal Nares MRSA Culture - Final Staphylococcus Aureus - Mrsa Complete 09/16/18 16:15 Stool Clostridium difficile Toxin Assay - Final Complete 09/14/18 09:00 Rectum VRE Culture - Final Enterococcus Faecium - Vre Complete Microbiology Date/Time Source Procedure Growth Status 09/16/18 16:15 Stool Clostridium difficile Toxin Assay - Final Complete Laboratory Tests Test 09/16/18 16:15 09/17/18 04:25 Stool Occult Blood Negative (NEGATIVE) White Blood Count 13.8 K/UL (4.8-10.8) H Red Blood Count 3.85 M/UL (4.20-5.40) L Hemoglobin 12.0 G/DL (12.0-16.0) Hematocrit 36.2 % (37.0-47.0) L Mean Corpuscular Volume 94 FL (80-99) Mean Corpuscular Hemoglobin 31.1 PG (27.0-31.0) H Mean Corpuscular Hemoglobin Concent 33.1 G/DL (32.0-36.0) Red Cell Distribution Width 13.2 % (11.6-14.8) Platelet Count 119 K/UL (150-450) L Mean Platelet Volume 11.3 FL (6.5-10.1) H Neutrophils (%) (Auto) % (45.0-75.0) Lymphocytes (%) (Auto) % (20.0-45.0) Monocytes (%) (Auto) % (1.0-10.0) Eosinophils (%) (Auto) % (0.0-3.0) Basophils (%) (Auto) % (0.0-2.0) Sodium Level 137 MMOL/L (136-145) # Potassium Level 3.0 MMOL/L (3.5-5.1) L Chloride Level 104 MMOL/L (98-107) Carbon Dioxide Level 24 MMOL/L (21-32) Anion Gap 9 mmol/L (5-15) Blood Urea Nitrogen 13 mg/dL (7-18) Creatinine 0.7 MG/DL (0.55-1.30) Estimat Glomerular Filtration Rate mL/min (>60) Glucose Level 269 MG/DL (74-106) H Calcium Level 8.5 MG/DL (8.5-10.1) Total Bilirubin 0.6 MG/DL (0.2-1.0) Aspartate Amino Transf (AST/SGOT) 18 U/L (15-37) Alanine Aminotransferase (ALT/SGPT) < 6 U/L (12-78) L Alkaline Phosphatase 90 U/L (46-116) Total Protein 6.1 G/DL (6.4-8.2) L Albumin 1.4 G/DL (3.4-5.0) L Globulin 4.7 g/dL Albumin/Globulin Ratio 0.3 (1.0-2.7) L Current Medications Medications (Trade) Dose Ordered Sig/Wayne Route PRN Reason Start Time Stop Time Status Last Admin Dose Admin Acetaminophen (Tylenol) 650 mg Q4H PRN ORAL FEVER 09/14/18 12:45 10/14/18 12:44 09/17/18 00:12 Albuterol/ Ipratropium (Albuterol/ Ipratropium) 3 ml Q6H PRN HHN Shortness of Breath 09/14/18 12:45 09/19/18 12:44 Albuterol/ Ipratropium (Albuterol/ Ipratropium) 3 ml Q6HRT HHN 09/14/18 19:00 09/19/18 18:59 09/17/18 12:51 Amikacin Protocol (Amikacin pharmacy to dose) 1 ea DAILY PRN MISC Per rx protocol 09/15/18 17:15 10/15/18 17:14 Amikacin Sulfate 750 mg/Sodium Chloride 113 ml @ 113 mls/hr Q24H IV 09/16/18 18:00 09/23/18 17:59 09/16/18 18:16 Bisacodyl (Dulcolax) 10 mg DAILYPRN PRN RECTAL Constipation 09/14/18 12:45 10/14/18 12:44 Chlorhexidine Gluconate (Kamla-Hex 2%) 1 applic DAILY@2000 TOPIC 09/17/18 20:00 10/17/18 19:59 Dextrose (Dextrose 50%) 25 ml Q30M PRN IV Hypoglycemia 09/14/18 12:45 10/14/18 12:44 Dextrose (Dextrose 50%) 50 ml Q30M PRN IV Hypoglycemia 09/14/18 12:45 10/14/18 12:44 Diphenhydramine HCl (Benadryl) 25 mg Q6H PRN ORAL Itching/Pruritis 09/14/18 12:45 10/14/18 12:44 Docusate Sodium (Colace) 100 mg EVERY 12 HOURS ORAL 09/14/18 21:00 10/14/18 20:59 09/16/18 21:00 Heparin Sodium (Porcine) (Heparin 5000 units/ml) 5,000 units EVERY 12 HOURS SUBQ 09/14/18 21:00 10/14/18 20:59 09/16/18 10:16 Heparin Sodium/ Sodium Chloride (Heparin 1000 units/500ml Premix) 1,000 unit ONCE PRN IV PICC LINE 09/16/18 13:15 09/18/18 13:14 Insulin Aspart (NovoLOG) Q6HR SUBQ 09/14/18 16:00 10/14/18 15:59 09/17/18 11:49 Insulin Detemir (Levemir) 10 units BEDTIME SUBQ 09/15/18 21:00 10/15/18 20:59 09/16/18 21:00 Lidocaine HCl (Xylocaine 1% 30ml) 30 ml ONCE PRN INJ PICC LINE 09/16/18 13:15 09/18/18 13:14 Lorazepam (Ativan 2mg/ml 1ml) 0.5 mg Q4H PRN IV For Anxiety 09/14/18 12:45 09/21/18 12:44 Magnesium Hydroxide (Mom) 30 ml HSPRN PRN ORAL Constipation 09/14/18 12:45 10/14/18 12:44 Metoclopramide HCl (Reglan) 10 mg Q8H PRN IVP Nausea & Vomiting 09/17/18 12:30 10/17/18 12:29 Ondansetron HCl (Zofran) 4 mg Q6H PRN IVP Nausea & Vomiting 09/14/18 12:45 10/14/18 12:44 09/17/18 07:41 Pantoprazole (Protonix) 40 mg DAILY IV 09/15/18 09:00 10/15/18 08:59 09/17/18 10:13 Piperacillin Sod/ Tazobactam Sod 3.375 gm/Dextrose 100 ml @ 25 mls/hr EVERY 8 HOURS IVPB 09/14/18 15:00 09/19/18 14:59 09/17/18 05:45 Potassium Chloride 100 ml @ 100 mls/hr Q1HR IVPB 09/17/18 13:00 09/17/18 16:59 Sodium Chloride 1,000 ml @ 75 mls/hr [id number] IV 09/16/18 11:45 10/16/18 11:44 09/17/18 00:12 Vancomycin HCl (Vanco rx to dose) 1 ea DAILY PRN MISC Per rx protocol 09/14/18 12:45 10/14/18 12:44 Vancomycin HCl 750 mg/Sodium Chloride 275 ml @ 183.333 mls/hr Q24H IVPB 09/17/18 12:00 09/22/18 11:59 09/17/18 11:56 Milton Valladares MD Sep 17, 2018 13:12
--- NOTE | 2018-09-17 13:57 | General Progress Note ---
Assessment/Plan Status: unchanged Assessment/Plan: 77 y/o F with acute hypoxemic respiratory failure and sepsis admitted to ICU # Acute hypoxemic respiratory failure - Intubated in the ER and ICU management by project geophysicist appreciated. - Serial ABG and CXR as needed. - Supportive care - HHN as needed # Thrombocytopenia multifactorial - heme consult, appreciate reqs - ctm # Acute kidney injury due to dehydration- resolved - US renal without obstruction or hydronephrosis reviewed. - Nephrology follow up appreciated. 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 - R gaze preference noted. Withdraws to pain only. 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 # History of dementia - Supportive care - SW to attempt to find family members # DVT and GI ppx # FULL CODE by records. - CM / SW follow up for family is needed. Subjective Date patient seen: Sep 17, 2018 ROS Limited/Unobtainable: Yes Allergies: Coded Allergies: No Known Allergies (Unverified , 02/04/17) Subjective wbc downtrended low plt fevers, midnight 100.8 on thee abx seen by id increased levemir hypok replaced no acute events patient stable unable to obtain ros 2/2 intubated Objective Last 24 Hour Vital Signs Date Time Temp Pulse Resp B/P (MAP) Pulse Ox O2 Delivery O2 Flow Rate FiO2 09/17/18 13:00 67 14 108/47 (67) 99 09/17/18 12:51 66 14 98 Mechanical Ventilator 30 09/17/18 12:50 66 14 30 09/17/18 12:00 73 09/17/18 12:00 99.3 73 15 130/48 (75) 99 09/17/18 11:10 71 15 30 09/17/18 11:00 72 15 90/39 (56) 99 09/17/18 10:00 74 14 105/48 (67) 99 09/17/18 09:25 73 15 30 09/17/18 09:00 74 16 124/50 (74) 100 09/17/18 08:00 30 09/17/18 08:00 82 15 116/47 (70) 99 09/17/18 08:00 Mechanical Ventilator 09/17/18 07:43 83 09/17/18 07:12 79 16 100 Mechanical Ventilator 30 09/17/18 07:02 78 16 100 Mechanical Ventilator 30 09/17/18 07:00 85 19 130/67 (88) 98 09/17/18 07:00 99.3 76 14 114/49 (70) 100 09/17/18 06:45 76 17 30 09/17/18 06:00 85 19 130/67 (88) 98 09/17/18 05:03 73 15 30 09/17/18 05:00 74 15 106/50 (68) 100 09/17/18 04:00 Mechanical Ventilator 09/17/18 04:00 86 09/17/18 04:00 30 09/17/18 04:00 99.2 75 16 105/44 (64) 98 09/17/18 03:05 90 16 30 09/17/18 03:00 91 15 111/43 (65) 97 09/17/18 02:00 95 18 105/57 (73) 96 09/17/18 01:15 93 19 98 Mechanical Ventilator 30 09/17/18 01:05 97 24 30 09/17/18 01:05 97 24 97 Mechanical Ventilator 30 09/17/18 01:00 97 20 113/47 (69) 97 09/17/18 00:48 100.6 09/17/18 00:00 80 09/17/18 00:00 30 09/17/18 00:00 100.8 80 20 107/44 (65) 98 09/17/18 00:00 Mechanical Ventilator 09/16/18 23:00 78 19 113/47 (69) 98 09/16/18 22:50 78 18 30 09/16/18 22:00 76 18 113/47 (69) 99 09/16/18 21:11 76 19 30 09/16/18 21:00 76 18 114/49 (70) 99 09/16/18 20:00 Mechanical Ventilator 09/16/18 20:00 30 09/16/18 20:00 98.7 76 21 107/46 (66) 99 09/16/18 20:00 75 09/16/18 19:05 73 20 100 Mechanical Ventilator 30 09/16/18 19:00 74 20 136/73 (94) 100 09/16/18 18:55 71 19 99 Mechanical Ventilator 30 09/16/18 18:53 71 19 30 09/16/18 18:00 98.6 70 20 116/47 (70) 99 09/16/18 17:00 65 17 108/43 (64) 100 09/16/18 16:42 65 15 30 09/16/18 16:00 98.8 68 15 102/48 (66) 100 09/16/18 16:00 Mechanical Ventilator 09/16/18 16:00 30 09/16/18 16:00 68 09/16/18 15:30 76 20 30 09/16/18 15:00 77 18 101/47 (65) 99 09/16/18 14:00 81 19 110/45 (66) 99 Intake and Output 09/16/18 09/17/18 18:59 06:59 Intake Total 2350 ml 2558 ml Output Total 930 ml 1150 ml Balance 1420 ml 1408 ml Intake Free Water 750 ml 750 ml IV Total 800 ml 1088 ml Tube Feeding 690 ml 720 ml Other 110 ml Output Urine Total 930 ml 1150 ml # Bowel Movements 1 Laboratory Tests 09/16/18 16:15: Stool Occult Blood Negative 09/17/18 04:25: White Blood Count 13.8H, Red Blood Count 3.85L, Hemoglobin 12.0, Hematocrit 36.2L, Mean Corpuscular Volume 94, Mean Corpuscular Hemoglobin 31.1H, Mean Corpuscular Hemoglobin Concent 33.1, Red Cell Distribution Width 13.2, Platelet Count 119L, Mean Platelet Volume 11.3H, Neutrophils (%) (Auto) , Lymphocytes (% ) (Auto) , Monocytes (%) (Auto) , Eosinophils (%) (Auto) , Basophils (%) (Auto) , Sodium Level 137#, Potassium Level 3.0L, Chloride Level 104, Carbon Dioxide Level 24, Anion Gap 9, Blood Urea Nitrogen 13, Creatinine 0.7, Estimat Glomerular Filtration Rate , Glucose Level 269H, Calcium Level 8.5, Total Bilirubin 0.6, Aspartate Amino Transf (AST/SGOT) 18, Alanine Aminotransferase ( ALT/SGPT) < 6L, Alkaline Phosphatase 90, Total Protein 6.1L, Albumin 1.4L, Globulin 4.7, Albumin/Globulin Ratio 0.3L Height (Feet): 5 Height (Inches): 3.00 Weight (Pounds): 118 General Appearance: WD/WN, no apparent distress, other - intubated, sedated Neck: non-tender, normal alignment, supple Cardiovascular: normal rate, regular rhythm, no JVD Respiratory/Chest: lungs clear, normal breath sounds, no respiratory distress Abdomen: normal bowel sounds, soft, no organomegaly, no mass Extremities: other - trace edema b/l le Neurologic: other - sedated Desiree Helm DO Sep 17, 2018 13:57
--- NOTE | 2018-09-17 14:00 | NUR ---
NURSE NOTES: Left PICC line placed by radiology at bedside. CXR done to check placement. Awaiting radiology to read the result.
[2018-09-17] MEDS ORDERED: NS 275ml ONE (14:07)
[2018-09-17] MEDS ORDERED: Tubing IV Secondary IV ONE (14:07)
[2018-09-17] MEDS ORDERED: Sterile Water Irrig 1000ml IRRIG ONE (14:07)
--- NOTE | 2018-09-17 14:53 | NUR ---
DUAL LUMEN PICC LINE PLACED TO LEFT UPPER ARM BY DR. GRAHAM. FA
--- NOTE | 2018-09-17 15:09 | Diagnostic Imaging Report ---
Indication: electroformer venous access Findings: After the indications, procedure, risks, complications, and alternatives of the procedure were explained, written informed consent was obtained. The left upper extremity was prepped with alcohol. All elements of maximal sterile barrier technique were followed including usage of a cap, mask, sterile gown, sterile gloves, hand hygiene and a large sterile sheet. Sonographic evaluation of the upper extremity was performed demonstrating a patent and compressible basilic vein. Access was obtained under real-time ultrasound guidance (with utilization of sterile gel and sterile probe cover) and digital image was saved and archived. An .018 wire was introduced. Needle exchanged for a 5 Bengali peel-away sheath. Measurements were obtained. A 5 Bengali dual-lumen Power PICC line catheter was cut to 40 cm and introduced over the wire. Peel-away sheath and wire were removed.Catheter was secured to the skin using 2-0 Prolene suture. Both ports aspirate and flush easily. Post procedure chest x-ray demonstrates good position of the PICC line catheter within the SVC. Impression: Successful placement of an upper extremity PICC line catheter
--- NOTE | 2018-09-17 15:15 | NUR ---
NURSE NOTES: Weaning started with CPAP and PS 8 as per order.O2 sat 98%, RR 22-23. No respiratory distress noted. Will continue to monitor.
--- NOTE | 2018-09-17 15:40 | Surgery Progress Note ---
Surgery Progress Note Subjective Additional Comments Patient seen and examined at bedside. No acute events. Receiving PICC line today. Labs stable. Objective Last 24 Hour Vital Signs Date Time Temp Pulse Resp B/P (MAP) Pulse Ox O2 Delivery O2 Flow Rate FiO2 09/17/18 15:15 30 09/17/18 15:10 70 14 30 09/17/18 15:00 70 14 110/45 (66) 97 09/17/18 14:00 88 15 138/64 (88) 97 09/17/18 13:01 67 14 100 Mechanical Ventilator 30 09/17/18 13:00 67 14 108/47 (67) 99 09/17/18 12:51 66 14 98 Mechanical Ventilator 30 09/17/18 12:50 66 14 30 09/17/18 12:00 73 09/17/18 12:00 Mechanical Ventilator 09/17/18 12:00 99.3 73 15 130/48 (75) 99 09/17/18 11:10 71 15 30 09/17/18 11:00 72 15 90/39 (56) 99 09/17/18 10:00 74 14 105/48 (67) 99 09/17/18 09:25 73 15 30 09/17/18 09:00 74 16 124/50 (74) 100 09/17/18 08:00 30 09/17/18 08:00 82 15 116/47 (70) 99 09/17/18 08:00 Mechanical Ventilator 09/17/18 07:43 83 09/17/18 07:12 79 16 100 Mechanical Ventilator 30 09/17/18 07:02 78 16 100 Mechanical Ventilator 30 09/17/18 07:00 85 19 130/67 (88) 98 09/17/18 07:00 99.3 76 14 114/49 (70) 100 09/17/18 06:45 76 17 30 09/17/18 06:00 85 19 130/67 (88) 98 09/17/18 05:03 73 15 30 09/17/18 05:00 74 15 106/50 (68) 100 09/17/18 04:00 Mechanical Ventilator 09/17/18 04:00 86 09/17/18 04:00 30 09/17/18 04:00 99.2 75 16 105/44 (64) 98 09/17/18 03:05 90 16 30 09/17/18 03:00 91 15 111/43 (65) 97 09/17/18 02:00 95 18 105/57 (73) 96 09/17/18 01:15 93 19 98 Mechanical Ventilator 30 09/17/18 01:05 97 24 30 09/17/18 01:05 97 24 97 Mechanical Ventilator 30 09/17/18 01:00 97 20 113/47 (69) 97 09/17/18 00:48 100.6 09/17/18 00:00 80 09/17/18 00:00 30 09/17/18 00:00 100.8 80 20 107/44 (65) 98 09/17/18 00:00 Mechanical Ventilator 09/16/18 23:00 78 19 113/47 (69) 98 09/16/18 22:50 78 18 30 09/16/18 22:00 76 18 113/47 (69) 99 09/16/18 21:11 76 19 30 09/16/18 21:00 76 18 114/49 (70) 99 09/16/18 20:00 Mechanical Ventilator 09/16/18 20:00 30 09/16/18 20:00 98.7 76 21 107/46 (66) 99 09/16/18 20:00 75 09/16/18 19:05 73 20 100 Mechanical Ventilator 30 09/16/18 19:00 74 20 136/73 (94) 100 09/16/18 18:55 71 19 99 Mechanical Ventilator 30 09/16/18 18:53 71 19 30 09/16/18 18:00 98.6 70 20 116/47 (70) 99 09/16/18 17:00 65 17 108/43 (64) 100 09/16/18 16:42 65 15 30 09/16/18 16:00 98.8 68 15 102/48 (66) 100 09/16/18 16:00 Mechanical Ventilator 09/16/18 16:00 30 09/16/18 16:00 68 I&O Intake and Output 09/16/18 09/17/18 18:59 06:59 Intake Total 2350 ml 2558 ml Output Total 930 ml 1150 ml Balance 1420 ml 1408 ml Intake Free Water 750 ml 750 ml IV Total 800 ml 1088 ml Tube Feeding 690 ml 720 ml Other 110 ml Output Urine Total 930 ml 1150 ml # Bowel Movements 1 Dressing: saturated Wound: clean Cardiovascular: RSR Respiratory: clear Abdomen: soft, non-tender, present bowel sounds, non-distended Extremities: no cyanosis Laboratory Tests Test 09/16/18 16:15 09/17/18 04:25 Stool Occult Blood Negative (NEGATIVE) White Blood Count 13.8 K/UL (4.8-10.8) H Red Blood Count 3.85 M/UL (4.20-5.40) L Hemoglobin 12.0 G/DL (12.0-16.0) Hematocrit 36.2 % (37.0-47.0) L Mean Corpuscular Volume 94 FL (80-99) Mean Corpuscular Hemoglobin 31.1 PG (27.0-31.0) H Mean Corpuscular Hemoglobin Concent 33.1 G/DL (32.0-36.0) Red Cell Distribution Width 13.2 % (11.6-14.8) Platelet Count 119 K/UL (150-450) L Mean Platelet Volume 11.3 FL (6.5-10.1) H Neutrophils (%) (Auto) % (45.0-75.0) Lymphocytes (%) (Auto) % (20.0-45.0) Monocytes (%) (Auto) % (1.0-10.0) Eosinophils (%) (Auto) % (0.0-3.0) Basophils (%) (Auto) % (0.0-2.0) Sodium Level 137 MMOL/L (136-145) # Potassium Level 3.0 MMOL/L (3.5-5.1) L Chloride Level 104 MMOL/L (98-107) Carbon Dioxide Level 24 MMOL/L (21-32) Anion Gap 9 mmol/L (5-15) Blood Urea Nitrogen 13 mg/dL (7-18) Creatinine 0.7 MG/DL (0.55-1.30) Estimat Glomerular Filtration Rate mL/min (>60) Glucose Level 269 MG/DL (74-106) H Calcium Level 8.5 MG/DL (8.5-10.1) Total Bilirubin 0.6 MG/DL (0.2-1.0) Aspartate Amino Transf (AST/SGOT) 18 U/L (15-37) Alanine Aminotransferase (ALT/SGPT) < 6 U/L (12-78) L Alkaline Phosphatase 90 U/L (46-116) Total Protein 6.1 G/DL (6.4-8.2) L Albumin 1.4 G/DL (3.4-5.0) L Globulin 4.7 g/dL Albumin/Globulin Ratio 0.3 (1.0-2.7) L Plan Problems: (1) Sepsis Assessment & Plan: 77-year-old female presented to [facility] in distress found to be septic with leukocytosis tachycardia and requiring ventilatory support. Patient's labs noted and significant abnormal. Lactic acidosis. Severe dehydration. Admit to intensive care unit IV fluids Vent support IV antibiotics as per infectious disease Trend labs A.m. chest x-ray okay for tube feeds ICU care Leukocytosis improving. Labs improving. We will follow with recommendations Thank you for allowing me to participate in patient's care (2) Lactic acid acidosis (3) Upper sacral area unstageable pressure ulcer (4) G tube feedings (5) Respiratory failure (6) Ventilator dependence Akhil Jackson Sep 17, 2018 15:40
--- NOTE | 2018-09-17 16:22 | Nephrology Progress Note ---
Assessment/Plan Problem List: (1) Hypernatremia Assessment: ok (2) DM (diabetes mellitus) (3) KEL (acute kidney injury) Assessment: resolved (4) Sepsis (5) Respiratory failure Assessment ARF better hypernatremia worse Plan Decrease free water DC IVF TF abxs Vent support Discussed with RN and brother Subjective Subjective remains intubated Objective Objective Last 24 Hour Vital Signs Date Time Temp Pulse Resp B/P (MAP) Pulse Ox O2 Delivery O2 Flow Rate FiO2 09/17/18 15:15 30 09/17/18 15:10 70 14 30 09/17/18 15:00 70 14 110/45 (66) 97 09/17/18 14:00 88 15 138/64 (88) 97 09/17/18 13:01 67 14 100 Mechanical Ventilator 30 09/17/18 13:00 67 14 108/47 (67) 99 09/17/18 12:51 66 14 98 Mechanical Ventilator 30 09/17/18 12:50 66 14 30 09/17/18 12:00 73 09/17/18 12:00 Mechanical Ventilator 09/17/18 12:00 99.3 73 15 130/48 (75) 99 09/17/18 11:10 71 15 30 09/17/18 11:00 72 15 90/39 (56) 99 09/17/18 10:00 74 14 105/48 (67) 99 09/17/18 09:25 73 15 30 09/17/18 09:00 74 16 124/50 (74) 100 09/17/18 08:00 30 09/17/18 08:00 82 15 116/47 (70) 99 09/17/18 08:00 Mechanical Ventilator 09/17/18 07:43 83 09/17/18 07:12 79 16 100 Mechanical Ventilator 30 09/17/18 07:02 78 16 100 Mechanical Ventilator 30 09/17/18 07:00 85 19 130/67 (88) 98 09/17/18 07:00 99.3 76 14 114/49 (70) 100 09/17/18 06:45 76 17 30 09/17/18 06:00 85 19 130/67 (88) 98 09/17/18 05:03 73 15 30 09/17/18 05:00 74 15 106/50 (68) 100 09/17/18 04:00 Mechanical Ventilator 09/17/18 04:00 86 09/17/18 04:00 30 09/17/18 04:00 99.2 75 16 105/44 (64) 98 09/17/18 03:05 90 16 30 09/17/18 03:00 91 15 111/43 (65) 97 09/17/18 02:00 95 18 105/57 (73) 96 09/17/18 01:15 93 19 98 Mechanical Ventilator 30 09/17/18 01:05 97 24 30 09/17/18 01:05 97 24 97 Mechanical Ventilator 30 09/17/18 01:00 97 20 113/47 (69) 97 09/17/18 00:48 100.6 09/17/18 00:00 80 09/17/18 00:00 30 09/17/18 00:00 100.8 80 20 107/44 (65) 98 09/17/18 00:00 Mechanical Ventilator 09/16/18 23:00 78 19 113/47 (69) 98 09/16/18 22:50 78 18 30 09/16/18 22:00 76 18 113/47 (69) 99 09/16/18 21:11 76 19 30 09/16/18 21:00 76 18 114/49 (70) 99 09/16/18 20:00 Mechanical Ventilator 09/16/18 20:00 30 09/16/18 20:00 98.7 76 21 107/46 (66) 99 09/16/18 20:00 75 09/16/18 19:05 73 20 100 Mechanical Ventilator 30 09/16/18 19:00 74 20 136/73 (94) 100 09/16/18 18:55 71 19 99 Mechanical Ventilator 30 09/16/18 18:53 71 19 30 09/16/18 18:00 98.6 70 20 116/47 (70) 99 09/16/18 17:00 65 17 108/43 (64) 100 09/16/18 16:42 65 15 30 Intake and Output 09/16/18 09/17/18 19:00 07:00 Intake Total 2360 ml 2498 ml Output Total 920 ml 1160 ml Balance 1440 ml 1338 ml Intake Free Water 750 ml 750 ml IV Total 850 ml 1088 ml Tube Feeding 700 ml 660 ml Other 60 ml Output Urine Total 920 ml 1160 ml # Bowel Movements 1 Laboratory Tests 09/17/18 04:25: White Blood Count 13.8H, Red Blood Count 3.85L, Hemoglobin 12.0, Hematocrit 36.2L, Mean Corpuscular Volume 94, Mean Corpuscular Hemoglobin 31.1H, Mean Corpuscular Hemoglobin Concent 33.1, Red Cell Distribution Width 13.2, Platelet Count 119L, Mean Platelet Volume 11.3H, Neutrophils (%) (Auto) , Lymphocytes (% ) (Auto) , Monocytes (%) (Auto) , Eosinophils (%) (Auto) , Basophils (%) (Auto) , Sodium Level 137#, Potassium Level 3.0L, Chloride Level 104, Carbon Dioxide Level 24, Anion Gap 9, Blood Urea Nitrogen 13, Creatinine 0.7, Estimat Glomerular Filtration Rate , Glucose Level 269H, Calcium Level 8.5, Total Bilirubin 0.6, Aspartate Amino Transf (AST/SGOT) 18, Alanine Aminotransferase ( ALT/SGPT) < 6L, Alkaline Phosphatase 90, Total Protein 6.1L, Albumin 1.4L, Globulin 4.7, Albumin/Globulin Ratio 0.3L Height (Feet): 5 Height (Inches): 3.00 Weight (Pounds): 118 Cardiovascular: normal rate Respiratory/Chest: rhonchi - bilaterally Extremities: moderate edema Ramez Hardin MD Sep 17, 2018 16:22
--- NOTE | 2018-09-17 16:50 | Consultation ---
History of Present Illness General Chief Complaint: Dyspnea/Respdistress Referring physician: BRIAN Reason for Consultation: G TUBE REPLACEMENT Present Illness Allergies: Coded Allergies: No Known Allergies (Unverified , 02/04/17) Medication History Scheduled Amlodipine Besylate (Norvasc), 5 MG NG BID Aspirin* (Aspirin*), 162 MG NG DAILY Cholecalciferol (Vitamin D3)* (Vitamin D*), 5,000 INTLU GT DAILY Cran/Vitc/Mannose/Inulin/Brom (Uti-Stat Liquid), 3,875 MG GT DAILY, (Reported) Cyclobenzaprine Hcl* (Flexeril*), 5 MG ORAL THREE TIMES A DAY, (Reported) Docusate Sodium* (Docusate Sodium*), 100 MG GT TWICE A DAY, (Reported) Heparin Sod (Porcine) (Heparin Sodium*), 5,000 UNITS SUBQ EVERY 12 HOURS Magnesium Hydroxide* (Milk Of Magnesia*), 30 ML ORAL DAILY, (Reported) Metformin Hcl* (Metformin Hcl*), 500 MG GT TWICE A DAY, (Reported) Metoprolol Tartrate (Metoprolol Tartrate), 12.5 MG NG Q12HR Multivitamin Liquid* (Multi-Delyn*), 5 ML GT DAILY, (Reported) Nitroglycerin (Nitroglycerin Patch), 1 PATCH TDERMAL Q24H Ranitidine Hcl* (Zantac*), 150 MG GT DAILY, (Reported) Trimethoprim/Sulfamethoxazole (Bactrim Ds Tablet), 1 TAB ORAL TWICE A DAY Scheduled PRN Acetaminophen* (Acetaminophen*), 650 MG ORAL Q6H PRN for Mild Pain/Temp > 100.5, (Reported) Bisacodyl (Bisacodyl), 10 MG RC DAILY PRN for Constipation, (Reported) Ipratropium/Albuterol Sulfate (Iprat-Albut 0.5-3(2.5) Mg/3 Ml), 3 ML IH Q6HR PRN for Shortness of Breath, (Reported) Na Phos,M-B/Na Phos,Di-Ba* (Fleet Enema*), 133 ML RECTAL DAILY PRN for Constipation, (Reported) Patient History Healthcare decision maker Resuscitation status Full Code Advanced Directive on File Physical Exam Last 24 Hour Vital Signs Date Time Temp Pulse Resp B/P (MAP) Pulse Ox O2 Delivery O2 Flow Rate FiO2 09/17/18 16:39 30 09/17/18 16:00 99.5 74 25 121/54 (76) 96 09/17/18 15:15 30 09/17/18 15:10 70 14 30 09/17/18 15:00 70 14 110/45 (66) 97 09/17/18 14:00 88 15 138/64 (88) 97 09/17/18 13:01 67 14 100 Mechanical Ventilator 30 09/17/18 13:00 67 14 108/47 (67) 99 09/17/18 12:51 66 14 98 Mechanical Ventilator 30 09/17/18 12:50 66 14 30 09/17/18 12:00 73 09/17/18 12:00 Mechanical Ventilator 09/17/18 12:00 99.3 73 15 130/48 (75) 99 09/17/18 11:10 71 15 30 09/17/18 11:00 72 15 90/39 (56) 99 09/17/18 10:00 74 14 105/48 (67) 99 09/17/18 09:25 73 15 30 09/17/18 09:00 74 16 124/50 (74) 100 09/17/18 08:00 30 09/17/18 08:00 82 15 116/47 (70) 99 09/17/18 08:00 Mechanical Ventilator 09/17/18 07:43 83 09/17/18 07:12 79 16 100 Mechanical Ventilator 30 09/17/18 07:02 78 16 100 Mechanical Ventilator 30 09/17/18 07:00 85 19 130/67 (88) 98 09/17/18 07:00 99.3 76 14 114/49 (70) 100 09/17/18 06:45 76 17 30 09/17/18 06:00 85 19 130/67 (88) 98 09/17/18 05:03 73 15 30 09/17/18 05:00 74 15 106/50 (68) 100 09/17/18 04:00 Mechanical Ventilator 09/17/18 04:00 86 09/17/18 04:00 30 09/17/18 04:00 99.2 75 16 105/44 (64) 98 09/17/18 03:05 90 16 30 09/17/18 03:00 91 15 111/43 (65) 97 09/17/18 02:00 95 18 105/57 (73) 96 09/17/18 01:15 93 19 98 Mechanical Ventilator 30 09/17/18 01:05 97 24 30 09/17/18 01:05 97 24 97 Mechanical Ventilator 30 09/17/18 01:00 97 20 113/47 (69) 97 09/17/18 00:48 100.6 09/17/18 00:00 80 09/17/18 00:00 30 09/17/18 00:00 100.8 80 20 107/44 (65) 98 09/17/18 00:00 Mechanical Ventilator 09/16/18 23:00 78 19 113/47 (69) 98 09/16/18 22:50 78 18 30 09/16/18 22:00 76 18 113/47 (69) 99 09/16/18 21:11 76 19 30 09/16/18 21:00 76 18 114/49 (70) 99 09/16/18 20:00 Mechanical Ventilator 09/16/18 20:00 30 09/16/18 20:00 98.7 76 21 107/46 (66) 99 09/16/18 20:00 75 09/16/18 19:05 73 20 100 Mechanical Ventilator 30 09/16/18 19:00 74 20 136/73 (94) 100 09/16/18 18:55 71 19 99 Mechanical Ventilator 30 09/16/18 18:53 71 19 30 09/16/18 18:00 98.6 70 20 116/47 (70) 99 09/16/18 17:00 65 17 108/43 (64) 100 09/16/18 16:42 65 15 30 Intake and Output 09/16/18 09/17/18 19:00 07:00 Intake Total 2360 ml 2498 ml Output Total 920 ml 1160 ml Balance 1440 ml 1338 ml Intake Free Water 750 ml 750 ml IV Total 850 ml 1088 ml Tube Feeding 700 ml 660 ml Other 60 ml Output Urine Total 920 ml 1160 ml # Bowel Movements 1 Laboratory Tests Test 09/17/18 04:25 09/17/18 16:13 White Blood Count 13.8 K/UL (4.8-10.8) H Red Blood Count 3.85 M/UL (4.20-5.40) L Hemoglobin 12.0 G/DL (12.0-16.0) Hematocrit 36.2 % (37.0-47.0) L Mean Corpuscular Volume 94 FL (80-99) Mean Corpuscular Hemoglobin 31.1 PG (27.0-31.0) H Mean Corpuscular Hemoglobin Concent 33.1 G/DL (32.0-36.0) Red Cell Distribution Width 13.2 % (11.6-14.8) Platelet Count 119 K/UL (150-450) L Mean Platelet Volume 11.3 FL (6.5-10.1) H Neutrophils (%) (Auto) % (45.0-75.0) Lymphocytes (%) (Auto) % (20.0-45.0) Monocytes (%) (Auto) % (1.0-10.0) Eosinophils (%) (Auto) % (0.0-3.0) Basophils (%) (Auto) % (0.0-2.0) Sodium Level 137 MMOL/L (136-145) # Potassium Level 3.0 MMOL/L (3.5-5.1) L Chloride Level 104 MMOL/L (98-107) Carbon Dioxide Level 24 MMOL/L (21-32) Anion Gap 9 mmol/L (5-15) Blood Urea Nitrogen 13 mg/dL (7-18) Creatinine 0.7 MG/DL (0.55-1.30) Estimat Glomerular Filtration Rate mL/min (>60) Glucose Level 269 MG/DL (74-106) H Calcium Level 8.5 MG/DL (8.5-10.1) Total Bilirubin 0.6 MG/DL (0.2-1.0) Aspartate Amino Transf (AST/SGOT) 18 U/L (15-37) Alanine Aminotransferase (ALT/SGPT) < 6 U/L (12-78) L Alkaline Phosphatase 90 U/L (46-116) Total Protein 6.1 G/DL (6.4-8.2) L Albumin 1.4 G/DL (3.4-5.0) L Globulin 4.7 g/dL Albumin/Globulin Ratio 0.3 (1.0-2.7) L Arterial Blood pH 7.467 (7.350-7.450) Arterial Blood Partial Pressure CO2 31.2 mmHg (35.0-45.0) L Arterial Blood Partial Pressure O2 73.9 mmHg (75.0-100.0) L Arterial Blood HCO3 22.0 mmol/L (22.0-26.0) Arterial Blood Oxygen Saturation 95.4 % (95-100) Arterial Blood Base Excess -0.9 (-2-2) Ray Test Positive Height (Feet): 5 Height (Inches): 3.00 Weight (Pounds): 118 Medications Current Medications Medications (Trade) Dose Ordered Sig/Wayne Route PRN Reason Start Time Stop Time Status Last Admin Dose Admin Acetaminophen (Tylenol) 650 mg Q4H PRN ORAL FEVER 09/14/18 12:45 10/14/18 12:44 09/17/18 00:12 Albuterol/ Ipratropium (Albuterol/ Ipratropium) 3 ml Q6H PRN HHN Shortness of Breath 09/14/18 12:45 09/19/18 12:44 Albuterol/ Ipratropium (Albuterol/ Ipratropium) 3 ml Q6HRT HHN 09/14/18 19:00 09/19/18 18:59 09/17/18 12:51 Amikacin Protocol (Amikacin pharmacy to dose) 1 ea DAILY PRN MISC Per rx protocol 09/15/18 17:15 10/15/18 17:14 Amikacin Sulfate 750 mg/Sodium Chloride 113 ml @ 113 mls/hr Q24H IV 09/16/18 18:00 09/23/18 17:59 09/16/18 18:16 Bisacodyl (Dulcolax) 10 mg DAILYPRN PRN RECTAL Constipation 09/14/18 12:45 10/14/18 12:44 Chlorhexidine Gluconate (Kamla-Hex 2%) 1 applic DAILY@2000 TOPIC 09/17/18 20:00 10/17/18 19:59 Dextrose (Dextrose 50%) 25 ml Q30M PRN IV Hypoglycemia 09/14/18 12:45 10/14/18 12:44 Dextrose (Dextrose 50%) 50 ml Q30M PRN IV Hypoglycemia 09/14/18 12:45 10/14/18 12:44 Diphenhydramine HCl (Benadryl) 25 mg Q6H PRN ORAL Itching/Pruritis 09/14/18 12:45 10/14/18 12:44 Docusate Sodium (Colace) 100 mg EVERY 12 HOURS ORAL 09/14/18 21:00 10/14/18 20:59 09/16/18 21:00 Heparin Sodium (Porcine) (Heparin 5000 units/ml) 5,000 units EVERY 12 HOURS SUBQ 09/14/18 21:00 10/14/18 20:59 09/16/18 10:16 Heparin Sodium/ Sodium Chloride (Heparin 1000 units/500ml Premix) 1,000 unit ONCE PRN IV PICC LINE 09/16/18 13:15 09/18/18 13:14 Insulin Aspart (NovoLOG) Q6HR SUBQ 09/14/18 16:00 10/14/18 15:59 09/17/18 11:49 Insulin Detemir (Levemir) 12 units BEDTIME SUBQ 09/17/18 21:00 10/17/18 20:59 Lidocaine HCl (Xylocaine 1% 30ml) 30 ml ONCE PRN INJ PICC LINE 09/16/18 13:15 09/18/18 13:14 Lorazepam (Ativan 2mg/ml 1ml) 0.5 mg Q4H PRN IV For Anxiety 09/14/18 12:45 09/21/18 12:44 Magnesium Hydroxide (Mom) 30 ml HSPRN PRN ORAL Constipation 09/14/18 12:45 10/14/18 12:44 Metoclopramide HCl (Reglan) 10 mg Q8H PRN IVP Nausea & Vomiting 09/17/18 12:30 10/17/18 12:29 Ondansetron HCl (Zofran) 4 mg Q6H PRN IVP Nausea & Vomiting 09/14/18 12:45 10/14/18 12:44 09/17/18 07:41 Pantoprazole (Protonix) 40 mg DAILY IV 09/15/18 09:00 10/15/18 08:59 09/17/18 10:13 Piperacillin Sod/ Tazobactam Sod 3.375 gm/Dextrose 100 ml @ 25 mls/hr EVERY 8 HOURS IVPB 09/17/18 14:00 09/22/18 13:59 09/17/18 13:47 Potassium Chloride 100 ml @ 100 mls/hr Q1HR IVPB 09/17/18 13:00 09/17/18 16:59 09/17/18 16:17 Potassium Chloride 100 ml @ 100 mls/hr Q1HR IVPB 09/17/18 17:00 09/17/18 18:59 Sodium Chloride 1,000 ml @ 75 mls/hr [id number] IV 09/16/18 11:45 10/16/18 11:44 09/17/18 15:07 Vancomycin HCl (Vanco rx to dose) 1 ea DAILY PRN MISC Per rx protocol 09/14/18 12:45 10/14/18 12:44 Vancomycin HCl 750 mg/Sodium Chloride 275 ml @ 183.333 mls/hr Q24H IVPB 09/17/18 12:00 09/22/18 11:59 09/17/18 11:56 Assessment/Plan Assessment/Plan: Hematology Consultation DOS: 09/17/18 REQ MD:Lisa Reason for Hospitalization: Dyspnea/Respdistress Reason for Consultation: dropping plts and anemia HPI 77 year old female resident of [facility] presents today with reported AMS and SOB on . History of DM, HTN and left submandibular abscess. ROS limited, patient unable to provide any history. Patient is G Tube dependant and family reported theG Tube being "cracked." GT was assessed, appeared to have recently been changed. No erythema, no drainage or leakage noted around the site. Abdomen soft, non tender, non distended BS+ x4 quads. History of PEG back in January of 2017. Was intubated in icu and currently on abx, has had a recent plt downtrend as well as anemia due to ivfs, which have been stopped in interim. PAST MEDICAL HISTORY: G-tube and dysphagia. She has history of weakness. She has history of abscesses in the past. She has I believe sacral wound, dysphagia , G-tube, history of TIA, history of cerebral infarction-, aspiration risk, history of essential hypertension, history of encephalopathy, history of dementia, history of hemiplegia, CVA, hypertension. ALLERGIES: No known drug allergies. SOCIAL HISTORY: Negative for smoking, alcohol, or drug abuse. FAMILY HISTORY: Noncontributory per the records. No mention of tuberculosis or cancer. MEDICATIONS: Upon reviewing the MAR, she is on the following medications. She is on insulin, amikacin, vancomycin, Zosyn, sodium, pantoprazole, heparin, docusate. She is on albuterol, acetaminophen, bisacodyl, magnesium hydroxide, Zofran, lorazepam, diphenhydramine. Outside medications are noted and reconciliated. Physical Exam: Vitals: reviewed General Appearance: NAD HEENT: normocephalic, atraumatic Neck: non-tender, normal alignment Respiratory/Chest: normal breath sounds bilaterally ++ vent Cardiovascular/Chest: normal peripheral pulses, normal rate Abdomen: normal bowel sounds, soft, nontender ++ gtube Extremities: normal range of motion Labs: reviewed Meds: reviewed Assessment and Recs: # Thrombocytopenia - potential causes multifactorial, evaluate liver and viral etiologies to begin, also could be related to underlying medications patient has received. --> Hep panel and HIV ordered --> US abd to evaluate for cirrhosis and hsm ordered --> Peripheral smear ordered to evaluate for blasts /schistocytes --> abx and other meds have been reviewed --> ok for ppx if plt >50k w/ either heparin or lovenox --> Transfuse if Plt < 20k and fever, or if Plt < 10k without fever # Anemia of chronic disease (or of iron deficiency) due to underlying chronic medical issues, multifactorial --> Anemia workup has been ordered, rule out gi bleed --> No evidence of hemolysis is noted, peripheral smear has been reviewed. --> Hgb goal >7. Transfuse prn. --> Epogen or iron at this time is not particularly indicated --> Medications have been reviewed # Dysphagia and now s/p G tube feedings --> as per gi, peg tube feedsings # Dehydration --> on ivfs, currently off per renal # Sepsis --> abx per id # DVT ppx with heparin sq The timing of this note does not necessarily reflect the time of the patient was seen. GREATLY APPRECIATE CONSULTATION. Mateo Wei MD Sep 17, 2018 16:50
--- NOTE | 2018-09-17 17:00 | NUR ---
NURSE NOTES: Brother at bedside. Turned and repositioned pt. Temp 99.5 orally. No acute distress noted. Pt back to AC mode and will wean again in AM as per Dr Swift's order. No acute distress noted.
--- NOTE | 2018-09-17 17:06 | Pulmonolgy Critical Care Note ---
Critical Care - Asmt/Plan Assessment/Plan: Pulmonary CCM Progress Note Critical Care - Asmt/Plan Problems: (1) Endotracheally intubated (2) Ventilator dependence, tolerating CPAP trials (3) Sepsis, on pressors PRN (4) Pneumonia (5) Electrolyte imbalance (6) Dehydration (7) Altered mental status (8) Hypernatremia (9) Respiratory failure (10) Lactic acid acidosis (11) H/O: CVA (cerebrovascular accident) (12) G tube feedings (13) KEL (acute kidney injury) Respiratory: monitor respiratory rate, adjust FIO2, ABG, other - HHN's, pulmonary hygiene wean an tolerated Cardiac: continue to monitor HR/BP Renal: IVF PRN, Infectious Disease: check cultures, continue antibiotics - Vanco/Zosyn per ID Gastrointestinal: enteral feeding Endocrine: monitor blood sugar, continue sliding scale insulin Hematologic: monitor H/H Neurologic: keep patient comfortable - monitor MS, consider neuro eval and EEG Prophylaxis: Protonix, Heparin Disposition: keep in ICU Time Spent (Minutes): 40 Notes Reviewed: communications station manager, renal, ID, other - ERMD Discussed with: nurses, consultants, other - FC Critical Care - Objective Vital Signs Noted Status: sedated - intubated Condition: critical HEENT: atraumatic, normocephalic, other - ETT OGT weak gag Lungs: rhonchi Heart: HR/BP stable Abdomen: soft, non-tender, active bowel sounds, feeding tube Extremities: no C/C/E Micro: Microbiology Date/Time Source Procedure Growth Status 09/14/18 09:00 Rectum Received Critical Care - Subjective ROS Limited/Unobtainable: Yes ICU Day: 4 Intubation Day: 4 Interval Events: 77 F NHR h/o dementia, CVA, GT, HTN, HL a/w AMS and SOB intubated in ER Na 167 Cr 1.7 LA elevated + hemoconcentration No gag in ER + faint gag now + F no C no further hx obtainable Condition: critical IV Access: peripheral - x2 EKG Rhythm: Sinus Rhythm FI02: 60 Vent Support Breath Rate: 14 Vent Support Mode: AC Vent Tidal Volume: 500 Sputum Amount: Small PEEP: 5.0 PIP: 23 Secretions: scant thick Subjective: ARLETTE CXR: L RC inf, small L eff, ETT ET-Tube: 7.0 ET Position: 22 Labs: Laboratory Tests noted Critical Care - Objective Last 24 Hour Vital Signs Date Time Temp Pulse Resp B/P (MAP) Pulse Ox O2 Delivery O2 Flow Rate FiO2 09/17/18 16:39 30 09/17/18 16:35 74 20 30 09/17/18 16:00 Mechanical Ventilator 09/17/18 16:00 99.5 74 25 121/54 (76) 96 09/17/18 15:15 30 09/17/18 15:10 70 14 30 09/17/18 15:00 70 14 110/45 (66) 97 09/17/18 14:00 88 15 138/64 (88) 97 09/17/18 13:01 67 14 100 Mechanical Ventilator 30 09/17/18 13:00 67 14 108/47 (67) 99 09/17/18 12:51 66 14 98 Mechanical Ventilator 30 09/17/18 12:50 66 14 30 09/17/18 12:00 73 09/17/18 12:00 Mechanical Ventilator 09/17/18 12:00 99.3 73 15 130/48 (75) 99 09/17/18 11:10 71 15 30 09/17/18 11:00 72 15 90/39 (56) 99 09/17/18 10:00 74 14 105/48 (67) 99 09/17/18 09:25 73 15 30 09/17/18 09:00 74 16 124/50 (74) 100 09/17/18 08:00 30 09/17/18 08:00 82 15 116/47 (70) 99 09/17/18 08:00 Mechanical Ventilator 09/17/18 07:43 83 09/17/18 07:12 79 16 100 Mechanical Ventilator 30 09/17/18 07:02 78 16 100 Mechanical Ventilator 30 09/17/18 07:00 85 19 130/67 (88) 98 09/17/18 07:00 99.3 76 14 114/49 (70) 100 09/17/18 06:45 76 17 30 09/17/18 06:00 85 19 130/67 (88) 98 09/17/18 05:03 73 15 30 09/17/18 05:00 74 15 106/50 (68) 100 09/17/18 04:00 Mechanical Ventilator 09/17/18 04:00 86 09/17/18 04:00 30 09/17/18 04:00 99.2 75 16 105/44 (64) 98 09/17/18 03:05 90 16 30 09/17/18 03:00 91 15 111/43 (65) 97 09/17/18 02:00 95 18 105/57 (73) 96 09/17/18 01:15 93 19 98 Mechanical Ventilator 30 09/17/18 01:05 97 24 30 09/17/18 01:05 97 24 97 Mechanical Ventilator 30 09/17/18 01:00 97 20 113/47 (69) 97 09/17/18 00:48 100.6 09/17/18 00:00 80 09/17/18 00:00 30 09/17/18 00:00 100.8 80 20 107/44 (65) 98 09/17/18 00:00 Mechanical Ventilator 09/16/18 23:00 78 19 113/47 (69) 98 09/16/18 22:50 78 18 30 09/16/18 22:00 76 18 113/47 (69) 99 09/16/18 21:11 76 19 30 09/16/18 21:00 76 18 114/49 (70) 99 09/16/18 20:00 Mechanical Ventilator 09/16/18 20:00 30 09/16/18 20:00 98.7 76 21 107/46 (66) 99 09/16/18 20:00 75 09/16/18 19:05 73 20 100 Mechanical Ventilator 30 09/16/18 19:00 74 20 136/73 (94) 100 09/16/18 18:55 71 19 99 Mechanical Ventilator 30 09/16/18 18:53 71 19 30 09/16/18 18:00 98.6 70 20 116/47 (70) 99 Micro: Microbiology Date/Time Source Procedure Growth Status 09/16/18 16:15 Stool Clostridium difficile Toxin Assay - Final Complete Accucheck: 202 Critical Care - Subjective ROS Limited/Unobtainable: No FI02: 30 Vent Support Breath Rate: 14 Vent Support Mode: AC Vent Tidal Volume: 500 Sputum Amount: Small PEEP: 5.0 PIP: 26 Tube Feeding Amount: 30 I&O: Intake and Output 09/16/18 09/17/18 19:00 07:00 Intake Total 2360 ml 2498 ml Output Total 920 ml 1160 ml Balance 1440 ml 1338 ml Intake Free Water 750 ml 750 ml IV Total 850 ml 1088 ml Tube Feeding 700 ml 660 ml Other 60 ml Output Urine Total 920 ml 1160 ml # Bowel Movements 1 ET-Tube: 7.0 ET Position: 22 Marcelo Swift MD Sep 17, 2018 17:06
[2018-09-17] MEDS: Amikacin 750 MG in NS 110 ML IV SCH (17:37)
--- NOTE | 2018-09-17 19:09 | NUR ---
RESPIRATORY NOTE: Received pt on AC 14, 500VT, 30%, PEEP +5. Pt intubated w/ ETT 7.0 @ 22cm lipline secured by anchorfast. Pt asleep, slowly responds to stimuli. Bite block in place as pt tends to clench jaw. No hand restraints, pt unable to move arms/hands. B/S emilie. clear-diminished, occasional crackles. Sxn small amounts of thick, haas-brown secretions w/ occasional blood clots. Vent plugged into red outlet, ambubag at bedside. Pt in no apparent distress at this time. Will continue to monitor pt.
--- NOTE | 2018-09-17 19:35 | NUR ---
HAND-OFF: Report given to FELIX Collins.
--- NOTE | 2018-09-17 19:36 | NUR ---
NURSE NOTES: Received bedside report from FELIX Espinosa.Patient stable,no s/sof pain,no respiratory distress noted,SR on quality assurance monitor body,non-verbal,AT tube 7.0 22 cm,AC 14 TV 500 FiO2 30% PEEP 5 tolerated good,GT running w/Glucerna 1.2 @ 40ml/hr,goal is 60 ml/hr,NPO from midnight d/t Abd US in a morning 09/18/18,BS active in all quadrants,IV asymptomatic,intact on R hand G 20,R f/arm G 20 ,Lf/arm G 22 SL and PICC line on OPHELIA inserted today,bed secured in a low safety position,call light within a reach,will continue to monitor and follow POC.
[2018-09-17] MEDS: Dyna-Hex 2% Top Sol 2oz TOPIC SCH (21:21)
[2018-09-17] MEDS: Levemir Flexpen SUBQ SCH (21:23)
--- NOTE | 2018-09-17 22:15 | NUR ---
NURSE NOTES: Pt.repositioned,HOB elevated to prevent aspiration,V/S stable,will continue to monitor.
[2018-09-18] VITALS (24 sets, daily range): BP systolic 104–151; BP diastolic 42–70
--- NOTE | 2018-09-18 | NUR ---
NURSE NOTES: GT feeding turned off,pt on NPO d/t Abd US,GT flushed,no residual noted.
[2018-09-18] MEDS: NovoLOG Insulin Flexpen SUBQ SCH ×5 (00:19→23:39)
[2018-09-18] MEDS: Albuterol/Ipratropium 3ml neb HHN SCH ×4 (00:53→18:59)
--- NOTE | 2018-09-18 02:00 | NUR ---
NURSE NOTES: Patient turned and repositioned,Temp 99.3 axilary,fan is working in a patient's room.will continue to monitor
--- NOTE | 2018-09-18 04:00 | NUR ---
NURSE NOTES: Pt. had large BM,cleaned and dry,repositioned and continue monitor for any respiratory distress.
[2018-09-18 05:11] LABS: BASOPHILS % (AUTO) 0.5 % (0.0-2.0); EOSINOPHILS % (AUTO) 1.1 % (0.0-3.0); HEMATOCRIT 34.6 % (37.0-47.0); HEMOGLOBIN 11.4 G/DL (12.0-16.0); LYMPHOCYTES % (AUTO) 9.9 % (20.0-45.0); MEAN CORPUSCULAR VOLUME 94 FL (80-99); MONOCYTES % (AUTO) 4.5 % (1.0-10.0); PLATELET COUNT 139 K/UL (150-450); RED BLOOD COUNT 3.69 M/UL (4.20-5.40); RED CELL DISTRIBUTION WIDTH 13.7 % (11.6-14.8); WHITE BLOOD COUNT 11.5 K/UL (4.8-10.8)
[2018-09-18 05:47] LABS: ALANINE AMINOTRANSFERASE 10 U/L (12-78); ALBUMIN 1.4 G/DL (3.4-5.0); ALBUMIN/GLOBULIN RATIO 0.3 (1.0-2.7); ALKALINE PHOSPHATASE 92 U/L (46-116); ANION GAP 8 mmol/L (5-15); ASPARTATE AMINO TRANSFERASE 19 U/L (15-37); BILIRUBIN,TOTAL 0.5 MG/DL (0.2-1.0); BLOOD UREA NITROGEN 8 mg/dL (7-18); CALCIUM 8.6 MG/DL (8.5-10.1); CARBON DIOXIDE 26 MMOL/L (21-32); CHLORIDE 107 MMOL/L (98-107); CREATININE 0.6 MG/DL (0.55-1.30); POTASSIUM 3.3 MMOL/L (3.5-5.1); SODIUM 141 MMOL/L (136-145)
--- NOTE | 2018-09-18 06:00 | NUR ---
NURSE NOTES: Pt has BM,cleaned and dry,tolerated AT tube setting well,no respiratory distress noted,HOB elevated,BS checked and recorded.will continue to monitor.
--- NOTE | 2018-09-18 07:08 | NUR ---
HAND-OFF: Report given to FELIX Espinosa.Patient stable.
--- NOTE | 2018-09-18 07:09 | NUR ---
NURSE NOTES: Report received from FELIX Collins. Pt is sleeping in bed. Able to open eyes to pain. Unable to follow commands. Non-verbal. Sinus rhythm on color television console monitor. ETT 7.0/22cm AC 14, TV 500, FiO2 30%, P 5. O2 sat 97%. No respiratory distress noted. G-tube in place and on hold for abdominal US scheduled for today. Nunez in place draining to gravity. IV to right G20, left FA G22, and right FA 20 and OPHELIA PICC line patent and asymptomatic. Bed in lowest position. Side rails up x3. Will resume plan of care.
--- NOTE | 2018-09-18 08:15 | NUR ---
RADIOLOGY DEPT., CHEST X-RAY DONE.-P.DYE
[2018-09-18] MEDS: Docusate 100mg cap ORAL SCH ×2 (08:59→20:31)
--- NOTE | 2018-09-18 09:05 | General Progress Note ---
Assessment/Plan Problem List: (1) DM (diabetes mellitus) ICD Codes: E11.9 - Type 2 diabetes mellitus without complications SNOMED: 37623116 (2) CVA, old, hemiparesis ICD Codes: I69.359 - Hemiplegia and hemiparesis following cerebral infarction affecting unspecified side; R65.20 - Severe sepsis without septic shock SNOMED: 791086986 (3) Severe sepsis ICD Codes: A41.9 - Sepsis, unspecified organism; R65.20 - Severe sepsis without septic shock SNOMED: 29558000 (4) Respiratory failure ICD Codes: J96.90 - Respiratory failure, unspecified, unspecified whether with hypoxia or hypercapnia SNOMED: 316588287 (5) Dehydration ICD Codes: E86.0 - Dehydration SNOMED: 55300496 (6) Large ischemic R MCA stroke (7) HTN (hypertension) ICD Codes: I10 - Essential (primary) hypertension SNOMED: 76680034 (8) G tube feedings ICD Codes: Z93.1 - Gastrostomy status SNOMED: 918281775, 390522339, 092824288 Status: unchanged Assessment/Plan: GTF fu labs abx per ID respiratory care fu abd us Subjective ROS Limited/Unobtainable: No Allergies: Coded Allergies: No Known Allergies (Unverified , 02/04/17) Objective Last 24 Hour Vital Signs Date Time Temp Pulse Resp B/P (MAP) Pulse Ox O2 Delivery O2 Flow Rate FiO2 09/18/18 08:00 70 14 113/43 (66) 97 09/18/18 08:00 Mechanical Ventilator 09/18/18 08:00 30 09/18/18 07:48 67 14 98 Mechanical Ventilator 30 09/18/18 07:35 64 14 98 Mechanical Ventilator 30 09/18/18 07:33 64 14 30 09/18/18 07:00 66 14 112/54 (73) 96 09/18/18 06:00 99.7 64 14 113/58 (76) 98 09/18/18 05:11 65 14 30 09/18/18 05:00 99.0 68 15 108/48 (68) 97 09/18/18 04:00 64 14 151/60 (90) 98 09/18/18 04:00 Mechanical Ventilator 09/18/18 04:00 30 09/18/18 04:00 78 09/18/18 03:00 66 14 108/44 (65) 98 09/18/18 02:58 68 14 30 09/18/18 02:00 71 14 104/45 (64) 97 09/18/18 01:03 80 19 100 Mechanical Ventilator 30 09/18/18 01:00 70 15 133/42 (72) 97 09/18/18 00:53 66 14 98 Mechanical Ventilator 30 09/18/18 00:53 66 14 30 09/18/18 00:06 66 09/18/18 00:00 Mechanical Ventilator 09/18/18 00:00 68 14 106/44 (64) 98 09/17/18 23:00 99.1 65 16 110/58 (75) 96 09/17/18 22:33 61 14 30 09/17/18 22:00 61 14 103/45 (64) 98 09/17/18 20:54 67 14 30 09/17/18 20:04 71 09/17/18 20:00 30 09/17/18 20:00 66 14 92/44 (60) 98 09/17/18 20:00 Mechanical Ventilator 09/17/18 19:16 72 17 100 Mechanical Ventilator 30 09/17/18 19:06 62 14 99 Mechanical Ventilator 30 09/17/18 19:05 62 14 30 09/17/18 19:00 63 14 91/44 (60) 98 09/17/18 18:00 67 14 97/42 (60) 99 09/17/18 17:00 73 17 127/65 (85) 97 09/17/18 16:39 30 09/17/18 16:35 74 20 30 09/17/18 16:00 Mechanical Ventilator 09/17/18 16:00 99.5 74 25 121/54 (76) 96 09/17/18 15:15 30 09/17/18 15:10 70 14 30 09/17/18 15:00 70 14 110/45 (66) 97 09/17/18 14:49 72 09/17/18 14:00 88 15 138/64 (88) 97 09/17/18 13:01 67 14 100 Mechanical Ventilator 30 09/17/18 13:00 67 14 108/47 (67) 99 09/17/18 12:51 66 14 98 Mechanical Ventilator 30 09/17/18 12:50 66 14 30 09/17/18 12:00 73 8/5/19 12:00 Mechanical Ventilator 09/17/18 12:00 99.3 73 15 130/48 (75) 99 09/17/18 11:10 71 15 30 09/17/18 11:00 72 15 90/39 (56) 99 09/17/18 10:00 74 14 105/48 (67) 99 09/17/18 09:25 73 15 30 Intake and Output 09/17/18 09/18/18 19:00 07:00 Intake Total 2521.000 ml 510.0 ml Output Total 1560 ml 1120 ml Balance 961.000 ml -610.0 ml Intake Free Water 540 ml 250 ml IV Total 1701.000 ml 100.0 ml Tube Feeding 280 ml 160 ml Output Urine Total 1560 ml 1120 ml # Bowel Movements 2 3 Laboratory Tests 09/17/18 16:13: Arterial Blood pH 7.467H, Arterial Blood Partial Pressure CO2 31.2L, Arterial Blood Partial Pressure O2 73.9L, Arterial Blood HCO3 22.0, Arterial Blood Oxygen Saturation 95.4, Arterial Blood Base Excess -0.9, Ray Test Positive 09/18/18 04:00: White Blood Count 11.5H, Red Blood Count 3.69L, Hemoglobin 11.4L, Hematocrit 34.6L, Mean Corpuscular Volume 94, Mean Corpuscular Hemoglobin 30.9, Mean Corpuscular Hemoglobin Concent 32.9, Red Cell Distribution Width 13.7, Platelet Count 139L, Mean Platelet Volume 9.6, Neutrophils (%) (Auto) 84.0H, Lymphocytes (%) (Auto) 9.9L, Monocytes (%) (Auto) 4.5, Eosinophils (%) (Auto) 1.1, Basophils (%) (Auto) 0.5, Sodium Level 141, Potassium Level 3.3L, Chloride Level 107, Carbon Dioxide Level 26, Anion Gap 8, Blood Urea Nitrogen 8, Creatinine 0.6, Estimat Glomerular Filtration Rate , Glucose Level 147#H, Calcium Level 8.6, Total Bilirubin 0.5, Aspartate Amino Transf (AST/SGOT) 19, Alanine Aminotransferase (ALT/SGPT) 10L, Alkaline Phosphatase 92, Total Protein 6.0L, Albumin 1.4L, Globulin 4.6, Albumin/Globulin Ratio 0.3L Height (Feet): 5 Height (Inches): 3.00 Weight (Pounds): 126 General Appearance: lethargic EENT: normal ENT inspection Neck: supple Cardiovascular: normal rate Respiratory/Chest: decreased breath sounds Abdomen: normal bowel sounds, non tender, soft Extremities: non-tender Ovi Brown MD Sep 18, 2018 09:05
--- NOTE | 2018-09-18 09:12 | NUR ---
Placed pt on CPAP PS 8 per MD order. Will continue to monitor. Addendum: 09/18/18 at 0912 by ANYN CHU RT Amended: Links added.
[2018-09-18] MEDS: Pantoprazole Inj IV SCH (09:16)
[2018-09-18] MEDS: Heparin 5000 units/ml inj SUBQ SCH ×2 (09:17→20:34)
--- NOTE | 2018-09-18 09:38 | NUR ---
NURSE NOTES: Dr Swift here to see the patient. Updated him with pt's current condition. Orders received, noted, and carried out. Notified RT.
--- NOTE | 2018-09-18 09:46 | Consultation ---
Consult Note Consult Note Dr Hardin's Renal coverage appreciated Patient admitted with Cr 1.7 and electrolyte imbalance currently in ICU, Intubated- + PEG Assessment/Plan (1) Hypernatremia improved (2) DM (diabetes mellitus) (3) KEL (acute kidney injury) resolved (4) Sepsis (5) Respiratory failure intubated HypoKalemia HypoAlbuminemia PEG Anemia K IV Anemia prince check Lytes and chemistries per orders Dwayne Vernon MD Sep 18, 2018 09:46
--- NOTE | 2018-09-18 09:48 | Nephrology Progress Note ---
Assessment/Plan Problem List: (1) KEL (acute kidney injury) (2) Respiratory failure (3) Dehydration (4) Electrolyte imbalance (5) G tube feedings (6) Hypokalemia (7) CVA, old, hemiparesis (8) DM (diabetes mellitus) Assessment look up consult Narrative note of today Plan look up consult Narrative note of today Subjective ROS Limited/Unobtainable: Yes Objective Objective Last 24 Hour Vital Signs Date Time Temp Pulse Resp B/P (MAP) Pulse Ox O2 Delivery O2 Flow Rate FiO2 09/18/18 09:14 30 09/18/18 09:12 97 09/18/18 09:07 71 25 30 09/18/18 08:00 70 14 113/43 (66) 97 09/18/18 08:00 Mechanical Ventilator 09/18/18 08:00 30 09/18/18 07:48 67 14 98 Mechanical Ventilator 30 09/18/18 07:35 64 14 98 Mechanical Ventilator 30 09/18/18 07:33 64 14 30 09/18/18 07:00 66 14 112/54 (73) 96 09/18/18 06:00 99.7 64 14 113/58 (76) 98 09/18/18 05:11 65 14 30 09/18/18 05:00 99.0 68 15 108/48 (68) 97 09/18/18 04:00 64 14 151/60 (90) 98 09/18/18 04:00 Mechanical Ventilator 09/18/18 04:00 30 09/18/18 04:00 78 09/18/18 03:00 66 14 108/44 (65) 98 09/18/18 02:58 68 14 30 09/18/18 02:00 71 14 104/45 (64) 97 09/18/18 01:03 80 19 100 Mechanical Ventilator 30 09/18/18 01:00 70 15 133/42 (72) 97 09/18/18 00:53 66 14 98 Mechanical Ventilator 30 09/18/18 00:53 66 14 30 09/18/18 00:06 66 09/18/18 00:00 Mechanical Ventilator 09/18/18 00:00 68 14 106/44 (64) 98 09/17/18 23:00 99.1 65 16 110/58 (75) 96 09/17/18 22:33 61 14 30 09/17/18 22:00 61 14 103/45 (64) 98 09/17/18 20:54 67 14 30 09/17/18 20:04 71 09/17/18 20:00 30 09/17/18 20:00 66 14 92/44 (60) 98 09/17/18 20:00 Mechanical Ventilator 09/17/18 19:16 72 17 100 Mechanical Ventilator 30 09/17/18 19:06 62 14 99 Mechanical Ventilator 30 09/17/18 19:05 62 14 30 09/17/18 19:00 63 14 91/44 (60) 98 09/17/18 18:00 67 14 97/42 (60) 99 09/17/18 17:00 73 17 127/65 (85) 97 09/17/18 16:39 30 09/17/18 16:35 74 20 30 09/17/18 16:00 Mechanical Ventilator 09/17/18 16:00 99.5 74 25 121/54 (76) 96 09/17/18 15:15 30 09/17/18 15:10 70 14 30 09/17/18 15:00 70 14 110/45 (66) 97 09/17/18 14:49 72 09/17/18 14:00 88 15 138/64 (88) 97 09/17/18 13:01 67 14 100 Mechanical Ventilator 30 09/17/18 13:00 67 14 108/47 (67) 99 09/17/18 12:51 66 14 98 Mechanical Ventilator 30 09/17/18 12:50 66 14 30 09/17/18 12:00 73 09/17/18 12:00 Mechanical Ventilator 09/17/18 12:00 99.3 73 15 130/48 (75) 99 09/17/18 11:10 71 15 30 09/17/18 11:00 72 15 90/39 (56) 99 09/17/18 10:00 74 14 105/48 (67) 99 Intake and Output 09/17/18 09/18/18 19:00 07:00 Intake Total 2521.000 ml 510.0 ml Output Total 1560 ml 1120 ml Balance 961.000 ml -610.0 ml Intake Free Water 540 ml 250 ml IV Total 1701.000 ml 100.0 ml Tube Feeding 280 ml 160 ml Output Urine Total 1560 ml 1120 ml # Bowel Movements 2 3 Laboratory Tests 09/17/18 16:13: Arterial Blood pH 7.467H, Arterial Blood Partial Pressure CO2 31.2L, Arterial Blood Partial Pressure O2 73.9L, Arterial Blood HCO3 22.0, Arterial Blood Oxygen Saturation 95.4, Arterial Blood Base Excess -0.9, Ray Test Positive 09/18/18 04:00: White Blood Count 11.5H, Red Blood Count 3.69L, Hemoglobin 11.4L, Hematocrit 34.6L, Mean Corpuscular Volume 94, Mean Corpuscular Hemoglobin 30.9, Mean Corpuscular Hemoglobin Concent 32.9, Red Cell Distribution Width 13.7, Platelet Count 139L, Mean Platelet Volume 9.6, Neutrophils (%) (Auto) 84.0H, Lymphocytes (%) (Auto) 9.9L, Monocytes (%) (Auto) 4.5, Eosinophils (%) (Auto) 1.1, Basophils (%) (Auto) 0.5, Sodium Level 141, Potassium Level 3.3L, Chloride Level 107, Carbon Dioxide Level 26, Anion Gap 8, Blood Urea Nitrogen 8, Creatinine 0.6, Estimat Glomerular Filtration Rate , Glucose Level 147#H, Calcium Level 8.6, Total Bilirubin 0.5, Aspartate Amino Transf (AST/SGOT) 19, Alanine Aminotransferase (ALT/SGPT) 10L, Alkaline Phosphatase 92, Total Protein 6.0L, Albumin 1.4L, Globulin 4.6, Albumin/Globulin Ratio 0.3L Height (Feet): 5 Height (Inches): 3.00 Weight (Pounds): 126 EENT: other - vented Dwayne Vernon MD Sep 18, 2018 09:48
--- NOTE | 2018-09-18 10:10 | Surgery Progress Note ---
Surgery Progress Note Subjective Additional Comments tolerating weaning trial leukocytosis improved h/h noted electrolytes stable exam unchanged possible extubation Objective Last 24 Hour Vital Signs Date Time Temp Pulse Resp B/P (MAP) Pulse Ox O2 Delivery O2 Flow Rate FiO2 09/18/18 09:14 30 09/18/18 09:12 97 09/18/18 09:07 71 25 30 09/18/18 08:00 70 14 113/43 (66) 97 09/18/18 08:00 Mechanical Ventilator 09/18/18 08:00 30 09/18/18 07:48 67 14 98 Mechanical Ventilator 30 09/18/18 07:35 64 14 98 Mechanical Ventilator 30 09/18/18 07:33 64 14 30 09/18/18 07:00 66 14 112/54 (73) 96 09/18/18 06:00 99.7 64 14 113/58 (76) 98 09/18/18 05:11 65 14 30 09/18/18 05:00 99.0 68 15 108/48 (68) 97 09/18/18 04:00 64 14 151/60 (90) 98 09/18/18 04:00 Mechanical Ventilator 09/18/18 04:00 30 09/18/18 04:00 78 09/18/18 03:00 66 14 108/44 (65) 98 09/18/18 02:58 68 14 30 09/18/18 02:00 71 14 104/45 (64) 97 09/18/18 01:03 80 19 100 Mechanical Ventilator 30 09/18/18 01:00 70 15 133/42 (72) 97 09/18/18 00:53 66 14 98 Mechanical Ventilator 30 09/18/18 00:53 66 14 30 09/18/18 00:06 66 09/18/18 00:00 Mechanical Ventilator 09/18/18 00:00 68 14 106/44 (64) 98 09/17/18 23:00 99.1 65 16 110/58 (75) 96 09/17/18 22:33 61 14 30 09/17/18 22:00 61 14 103/45 (64) 98 09/17/18 20:54 67 14 30 09/17/18 20:04 71 09/17/18 20:00 30 09/17/18 20:00 66 14 92/44 (60) 98 09/17/18 20:00 Mechanical Ventilator 09/17/18 19:16 72 17 100 Mechanical Ventilator 30 09/17/18 19:06 62 14 99 Mechanical Ventilator 30 09/17/18 19:05 62 14 30 09/17/18 19:00 63 14 91/44 (60) 98 09/17/18 18:00 67 14 97/42 (60) 99 09/17/18 17:00 73 17 127/65 (85) 97 09/17/18 16:39 30 09/17/18 16:35 74 20 30 09/17/18 16:00 Mechanical Ventilator 09/17/18 16:00 99.5 74 25 121/54 (76) 96 09/17/18 15:15 30 09/17/18 15:10 70 14 30 09/17/18 15:00 70 14 110/45 (66) 97 09/17/18 14:49 72 09/17/18 14:00 88 15 138/64 (88) 97 09/17/18 13:01 67 14 100 Mechanical Ventilator 30 09/17/18 13:00 67 14 108/47 (67) 99 09/17/18 12:51 66 14 98 Mechanical Ventilator 30 09/17/18 12:50 66 14 30 09/17/18 12:00 73 09/17/18 12:00 Mechanical Ventilator 09/17/18 12:00 99.3 73 15 130/48 (75) 99 09/17/18 11:10 71 15 30 09/17/18 11:00 72 15 90/39 (56) 99 I&O Intake and Output 09/17/18 09/18/18 19:00 07:00 Intake Total 2521.000 ml 510.0 ml Output Total 1560 ml 1120 ml Balance 961.000 ml -610.0 ml Intake Free Water 540 ml 250 ml IV Total 1701.000 ml 100.0 ml Tube Feeding 280 ml 160 ml Output Urine Total 1560 ml 1120 ml # Bowel Movements 2 3 Dressing: dry Wound: clean Cardiovascular: RSR Respiratory: clear Abdomen: soft, non-tender, present bowel sounds, non-distended Extremities: no edema, no tenderness, no cyanosis Laboratory Tests Test 09/17/18 16:13 09/18/18 04:00 Arterial Blood pH 7.467 (7.350-7.450) Arterial Blood Partial Pressure CO2 31.2 mmHg (35.0-45.0) L Arterial Blood Partial Pressure O2 73.9 mmHg (75.0-100.0) L Arterial Blood HCO3 22.0 mmol/L (22.0-26.0) Arterial Blood Oxygen Saturation 95.4 % (95-100) Arterial Blood Base Excess -0.9 (-2-2) Ray Test Positive White Blood Count 11.5 K/UL (4.8-10.8) H Red Blood Count 3.69 M/UL (4.20-5.40) L Hemoglobin 11.4 G/DL (12.0-16.0) L Hematocrit 34.6 % (37.0-47.0) L Mean Corpuscular Volume 94 FL (80-99) Mean Corpuscular Hemoglobin 30.9 PG (27.0-31.0) Mean Corpuscular Hemoglobin Concent 32.9 G/DL (32.0-36.0) Red Cell Distribution Width 13.7 % (11.6-14.8) Platelet Count 139 K/UL (150-450) L Mean Platelet Volume 9.6 FL (6.5-10.1) Neutrophils (%) (Auto) 84.0 % (45.0-75.0) H Lymphocytes (%) (Auto) 9.9 % (20.0-45.0) L Monocytes (%) (Auto) 4.5 % (1.0-10.0) Eosinophils (%) (Auto) 1.1 % (0.0-3.0) Basophils (%) (Auto) 0.5 % (0.0-2.0) Sodium Level 141 MMOL/L (136-145) Potassium Level 3.3 MMOL/L (3.5-5.1) L Chloride Level 107 MMOL/L (98-107) Carbon Dioxide Level 26 MMOL/L (21-32) Anion Gap 8 mmol/L (5-15) Blood Urea Nitrogen 8 mg/dL (7-18) Creatinine 0.6 MG/DL (0.55-1.30) Estimat Glomerular Filtration Rate mL/min (>60) Glucose Level 147 MG/DL (74-106) #H Uric Acid Pending Calcium Level 8.6 MG/DL (8.5-10.1) Phosphorus Level Pending Magnesium Level Pending Iron Level Pending Unsaturated Iron Binding Pending Ferritin Pending Total Bilirubin 0.5 MG/DL (0.2-1.0) Aspartate Amino Transf (AST/SGOT) 19 U/L (15-37) Alanine Aminotransferase (ALT/SGPT) 10 U/L (12-78) L Alkaline Phosphatase 92 U/L (46-116) Total Protein 6.0 G/DL (6.4-8.2) L Albumin 1.4 G/DL (3.4-5.0) L Globulin 4.6 g/dL Albumin/Globulin Ratio 0.3 (1.0-2.7) L Vitamin B12 Level Pending Folate Pending Thyroid Stimulating Hormone (TSH) Pending Plan Problems: (1) Sepsis Assessment & Plan: 77-year-old female presented to [facility] in distress found to be septic with leukocytosis tachycardia and requiring ventilatory support. Patient's labs noted and significant abnormal. Lactic acidosis. Severe dehydration. Admit to intensive care unit IV fluids Vent support - cont with weaning trial. looks okay for extubation soon IV antibiotics as per infectious disease Trend labs A.m. chest x-ray okay for tube feeds ICU care Leukocytosis improving. Labs improving. We will follow with recommendations Thank you for allowing me to participate in patient's care (2) Lactic acid acidosis (3) Upper sacral area unstageable pressure ulcer (4) G tube feedings Assessment & Plan: DAILY ESTIMATED NEEDS: Needs based on Critical care, sepsis, wound, DM 53.6kg 25-32 kcals/kg 9889-0798 total kcals 1.25-2 g protein/kg 67-107 g total protein 25-32ml/kcal mL/kg 8905-4016 total fluid mLs NUTRITION DIAGNOSIS: 1) Swallowing difficulty R/T dysphagia, CVA as evidenced by PEG dependent, now orally intubated. 2) Increased kcal and pro needs r/t sepsis and wound healing as evidenced by elev BG and POC (200-400's), elev WBC (15.7), febrile (Tmax 100.9), elev Na (148), sacral wound/ unstageable per MD. CURRENT TF: Glucerna 1.2 @60 hrs ENTERAL NUTRITION RECOMMENDATIONS: Glucerna 1.2 @55ml/hr x24 hrs + Prosource x1 daily to provide 1320ml, 1584 kcal, 79g + 11g pro, 1063ml free H2O - Maintain Glucerna 1.2 -> Rec to REDUCE RATE to goal of 55ml/hr - Add Prosource x1 daily to better meet est pro needs - HOB over 30 degrees - Flush per MD-> 150q6 for added 600ml free fluid per day (1063ml from TF + 600ml flushes= 1663ml free fluid per day). ------ ADDITIONAL RECOMMENDATIONS: 1) Monitor hydration status 2) Obtain an accurate calibrated bed scale wt 3) Lytes daily on TF/ replete as needed 4) Rec increase hypoglycemic agents for improved BG control 5) Sacral wound: add AYDEE BID via PEG daily + Vit C 250mg BID daily via GT (5) Respiratory failure (6) Ventilator dependence Akhil Jackson Sep 18, 2018 10:10
[2018-09-18 10:14] LABS: PHOSPHORUS 2.3 MG/DL (2.5-4.9)
[2018-09-18 10:17] LABS: FERRITIN 338 NG/ML (8-388)
--- NOTE | 2018-09-18 10:43 | Diagnostic Imaging Report ---
Indication: Dyspnea Comparison: 09/15/2018 A single view chest radiograph was obtained. Findings: Endotracheal tube remains in good position. Pulmonary vascular congestion is present. Basilar atelectasis noted. Small bilateral pleural effusions are not excluded. IMPRESSION: Pulmonary vascular congestion
--- NOTE | 2018-09-18 10:49 | NUR ---
NURSE NOTES: Cleaned pt for moderate amount of loose BM. Cleaned and repositioned pt. Pt is tolerating the current vent setting. O2 sat 99%. RR 23. Will continue to monitor.
--- NOTE | 2018-09-18 10:55 | Diagnostic Imaging Report ---
Indication: Abdominal pain Technique: Grayscale and duplex Doppler imaging of the abdomen performed. Comparison: None Findings: The liver is unremarkable. Doppler interrogation of the main portal vein shows patency with hepatopedal, monophasic flow. There is no biliary ductal dilatation identified. Gallbladder is unremarkable. CBD is 5 mm. There demonstrated part of the pancreas, and IVC show no definite abnormalities. Calcification of aorta noted consistent with atherosclerotic disease. Both kidneys appear unremarkable. There is no hydronephrosis. IMPRESSION: No acute findings identified.
[2018-09-18 11:34] LABS: % IRON SATURATION 18 % (15-50); IRON 21 ug/dL (50-175); TOTAL IRON BINDING CAPACITY 116 ug/dL (250-450)
--- NOTE | 2018-09-18 11:39 | NUR ---
NURSE NOTES: Notified Dr Swift regarding RSBI, cuff leak test result, and CXR result. Order to put her back to AC mode received, noted, and carried out. Notified RT.
--- NOTE | 2018-09-18 11:42 | NUR ---
DIALS INSPECTOROPERATIONS AGENT SI: RESP FAILURE TRACH/VENT DEPENDENT,AMS T. 99.7 HR 64 RR 14 B/P 113/58 WBC 11.5 K 3.3 ALB 1.4 IS: ZOSYN IV VANCO IV KCL IV ICU STATUS
[2018-09-18] MEDS ORDERED: Artificial Tears 1.4% Op Soln BOTH EYES PRN (12:30)
[2018-09-18] MEDS: Vancomycin 750mg/NS 275ml IVPB SCH ×2 (12:35)
--- NOTE | 2018-09-18 13:57 | Pulmonolgy Critical Care Note ---
Critical Care - Asmt/Plan Assessment/Plan: Pulmonary CCM Progress Note Critical Care - Asmt/Plan Problems: (1) Endotracheally intubated (2) Ventilator dependence, tolerating CPAP trials (3) Sepsis, on pressors PRN (4) Pneumonia (5) Electrolyte imbalance (6) Dehydration (7) Altered mental status (8) Hypernatremia (9) Respiratory failure (10) Lactic acid acidosis (11) H/O: CVA (cerebrovascular accident) - right gaze preference (12) G tube feedings (13) KEL (acute kidney injury) Respiratory: monitor respiratory rate, adjust FIO2, ABG, other - HHN's, pulmonary hygiene wean an tolerated Cardiac: continue to monitor HR/BP Renal: keep negative Infectious Disease: check cultures, continue antibiotics - Vanco/Zosyn per ID Gastrointestinal: enteral feeding Endocrine: monitor blood sugar, continue sliding scale insulin Hematologic: monitor H/H Neurologic: keep patient comfortable - monitor MS, consider neuro eval and EEG Prophylaxis: Protonix, Heparin Disposition: keep in ICU Time Spent (Minutes): 40 Notes Reviewed: loft worker head, renal, ID, other - ERMD Discussed with: nurses, consultants, other - FC Critical Care - Objective Vital Signs Noted Status: sedated - intubated Condition: critical HEENT: atraumatic, normocephalic, other - ETT OGT weak gag Lungs: rhonchi Heart: HR/BP stable Abdomen: soft, non-tender, active bowel sounds, feeding tube Extremities: no C/C/E Micro: Microbiology Date/Time Source Procedure Growth Status 09/14/18 09:00 Rectum Received Critical Care - Subjective ROS Limited/Unobtainable: Yes ICU Day: 4 Intubation Day: 4 Interval Events: 77 F NHR h/o dementia, CVA, GT, HTN, HL a/w AMS and SOB intubated in ER Na 167 Cr 1.7 LA elevated + hemoconcentration No gag in ER + faint gag now + F no C no further hx obtainable Condition: critical IV Access: peripheral - x2 EKG Rhythm: Sinus Rhythm FI02: 60 Vent Support Breath Rate: 14 Vent Support Mode: AC Vent Tidal Volume: 500 Sputum Amount: Small PEEP: 5.0 PIP: 23 Secretions: scant thick Subjective: ARLETTE CXR: L RC inf, small L eff, ETT ET-Tube: 7.0 ET Position: 22 Labs: Laboratory Tests noted Critical Care - Objective Last 24 Hour Vital Signs Date Time Temp Pulse Resp B/P (MAP) Pulse Ox O2 Delivery O2 Flow Rate FiO2 09/18/18 13:42 72 14 100 Mechanical Ventilator 30 09/18/18 13:24 71 14 100 Mechanical Ventilator 30 09/18/18 13:23 71 14 30 09/18/18 12:00 99.2 67 14 132/47 (75) 100 09/18/18 12:00 Mechanical Ventilator 09/18/18 12:00 75 09/18/18 11:48 70 16 30 09/18/18 11:38 30 09/18/18 11:00 70 23 128/52 (77) 99 09/18/18 10:30 74 25 30 30 09/18/18 10:00 71 22 119/50 (73) 98 09/18/18 09:14 30 09/18/18 09:12 97 09/18/18 09:07 71 25 30 09/18/18 09:00 70 15 116/49 (71) 99 09/18/18 08:00 70 14 113/43 (66) 97 09/18/18 08:00 Mechanical Ventilator 09/18/18 08:00 30 09/18/18 07:52 69 09/18/18 07:48 67 14 98 Mechanical Ventilator 30 09/18/18 07:35 64 14 98 Mechanical Ventilator 30 09/18/18 07:33 64 14 30 09/18/18 07:00 66 14 112/54 (73) 96 09/18/18 06:00 99.7 64 14 113/58 (76) 98 09/18/18 05:11 65 14 30 09/18/18 05:00 99.0 68 15 108/48 (68) 97 09/18/18 04:00 64 14 151/60 (90) 98 09/18/18 04:00 Mechanical Ventilator 09/18/18 04:00 30 09/18/18 04:00 78 09/18/18 03:00 66 14 108/44 (65) 98 09/18/18 02:58 68 14 30 09/18/18 02:00 71 14 104/45 (64) 97 09/18/18 01:03 80 19 100 Mechanical Ventilator 30 09/18/18 01:00 70 15 133/42 (72) 97 09/18/18 00:53 66 14 98 Mechanical Ventilator 30 09/18/18 00:53 66 14 30 09/18/18 00:06 66 09/18/18 00:00 Mechanical Ventilator 09/18/18 00:00 68 14 106/44 (64) 98 09/17/18 23:00 99.1 65 16 110/58 (75) 96 09/17/18 22:33 61 14 30 09/17/18 22:00 61 14 103/45 (64) 98 09/17/18 20:54 67 14 30 09/17/18 20:04 71 09/17/18 20:00 30 09/17/18 20:00 66 14 92/44 (60) 98 09/17/18 20:00 Mechanical Ventilator 09/17/18 19:16 72 17 100 Mechanical Ventilator 30 09/17/18 19:06 62 14 99 Mechanical Ventilator 30 09/17/18 19:05 62 14 30 09/17/18 19:00 63 14 91/44 (60) 98 09/17/18 18:00 67 14 97/42 (60) 99 09/17/18 17:00 73 17 127/65 (85) 97 09/17/18 16:39 30 09/17/18 16:35 74 20 30 09/17/18 16:00 Mechanical Ventilator 09/17/18 16:00 99.5 74 25 121/54 (76) 96 09/17/18 15:15 30 09/17/18 15:10 70 14 30 09/17/18 15:00 70 14 110/45 (66) 97 09/17/18 14:49 72 09/17/18 14:00 88 15 138/64 (88) 97 Micro: Microbiology Date/Time Source Procedure Growth Status 09/17/18 13:10 Sputum Induced Gram Stain - Final Resulted 09/17/18 13:10 Sputum Culture - Preliminary Gram Negative Esteban Resulted 09/16/18 16:15 Stool Clostridium difficile Toxin Assay - Final Complete Accucheck: 137 Critical Care - Subjective ROS Limited/Unobtainable: No FI02: 30 Vent Support Breath Rate: 14 Vent Support Mode: AC Vent Tidal Volume: 500 Sputum Amount: Small PEEP: 5.0 PIP: 30 Tube Feeding Amount: 30 I&O: Intake and Output 09/17/18 09/18/18 19:00 07:00 Intake Total 2521.000 ml 535.0 ml Output Total 1560 ml 1120 ml Balance 961.000 ml -585.0 ml Intake Free Water 540 ml 250 ml IV Total 1701.000 ml 125.0 ml Tube Feeding 280 ml 160 ml Output Urine Total 1560 ml 1120 ml # Bowel Movements 2 3 ET-Tube: 7.0 ET Position: 22 Marcelo Swift MD Sep 18, 2018 13:57
--- NOTE | 2018-09-18 14:00 | NUR ---
NURSE NOTES: Wound care nurse came and assessed the wound. Dressing applied as per protocol. Cleaned and repositioned pt.
--- NOTE | 2018-09-18 15:29 | General Progress Note ---
Assessment/Plan Status: unchanged Assessment/Plan: 77 y/o F with acute hypoxemic respiratory failure and sepsis admitted to ICU # Acute hypoxemic respiratory failure - suspect very low prognosis given neurologic status - Intubated in the ER and ICU management by studio potter appreciated. - Serial ABG and CXR as needed. - Supportive care - HHN as needed # Encephalopathy multifactorial including hypoxic and metabolic - mri brain w/o con - ct head: progress of stroke - neurology consult # Thrombocytopenia multifactorial - heme consult, appreciate reqs - ctm # Acute kidney injury due to dehydration- resolved - US renal without obstruction or hydronephrosis reviewed. - Nephrology follow up appreciated. 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 - R gaze preference noted. 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 # History of dementia - Supportive care - SW to attempt to find family members # DVT and GI ppx # FULL CODE by records. - CM / SW follow up for family is needed. Subjective Date patient seen: Sep 18, 2018 Time patient seen: 12:45 Allergies: Coded Allergies: No Known Allergies (Unverified , 02/04/17) Subjective wbc downtrended low plt fevers, midnight 100.8 on abx increased levemir hypok replaced no acute events patient stable unable to obtain ros 2/2 intubated Objective Last 24 Hour Vital Signs Date Time Temp Pulse Resp B/P (MAP) Pulse Ox O2 Delivery O2 Flow Rate FiO2 09/18/18 15:14 73 14 30 09/18/18 15:00 79 14 135/70 (91) 99 09/18/18 14:00 73 14 115/52 (73) 99 09/18/18 13:42 72 14 100 Mechanical Ventilator 30 09/18/18 13:24 71 14 100 Mechanical Ventilator 30 8/6/19 13:23 71 14 30 09/18/18 13:00 72 16 130/53 (78) 100 09/18/18 12:00 99.2 67 14 132/47 (75) 100 09/18/18 12:00 Mechanical Ventilator 09/18/18 12:00 75 09/18/18 11:48 70 16 30 09/18/18 11:38 30 09/18/18 11:00 70 23 128/52 (77) 99 09/18/18 10:30 74 25 30 30 09/18/18 10:00 71 22 119/50 (73) 98 09/18/18 09:14 30 09/18/18 09:12 97 09/18/18 09:07 71 25 30 09/18/18 09:00 70 15 116/49 (71) 99 09/18/18 08:00 70 14 113/43 (66) 97 09/18/18 08:00 Mechanical Ventilator 09/18/18 08:00 30 09/18/18 07:52 69 09/18/18 07:48 67 14 98 Mechanical Ventilator 30 09/18/18 07:35 64 14 98 Mechanical Ventilator 30 09/18/18 07:33 64 14 30 09/18/18 07:00 66 14 112/54 (73) 96 09/18/18 06:00 99.7 64 14 113/58 (76) 98 09/18/18 05:11 65 14 30 09/18/18 05:00 99.0 68 15 108/48 (68) 97 09/18/18 04:00 64 14 151/60 (90) 98 09/18/18 04:00 Mechanical Ventilator 09/18/18 04:00 30 09/18/18 04:00 78 09/18/18 03:00 66 14 108/44 (65) 98 09/18/18 02:58 68 14 30 09/18/18 02:00 71 14 104/45 (64) 97 09/18/18 01:03 80 19 100 Mechanical Ventilator 30 09/18/18 01:00 70 15 133/42 (72) 97 09/18/18 00:53 66 14 98 Mechanical Ventilator 30 09/18/18 00:53 66 14 30 09/18/18 00:06 66 09/18/18 00:00 Mechanical Ventilator 09/18/18 00:00 68 14 106/44 (64) 98 09/17/18 23:00 99.1 65 16 110/58 (75) 96 09/17/18 22:33 61 14 30 09/17/18 22:00 61 14 103/45 (64) 98 09/17/18 20:54 67 14 30 09/17/18 20:04 71 09/17/18 20:00 30 09/17/18 20:00 66 14 92/44 (60) 98 09/17/18 20:00 Mechanical Ventilator 09/17/18 19:16 72 17 100 Mechanical Ventilator 30 09/17/18 19:06 62 14 99 Mechanical Ventilator 30 09/17/18 19:05 62 14 30 09/17/18 19:00 63 14 91/44 (60) 98 09/17/18 18:00 67 14 97/42 (60) 99 09/17/18 17:00 73 17 127/65 (85) 97 09/17/18 16:39 30 09/17/18 16:35 74 20 30 09/17/18 16:00 Mechanical Ventilator 09/17/18 16:00 99.5 74 25 121/54 (76) 96 Intake and Output 09/17/18 09/18/18 18:59 06:59 Intake Total 2556.000 ml 550.0 ml Output Total 1500 ml 1215 ml Balance 1056.000 ml -665.0 ml Intake Free Water 540 ml 250 ml IV Total 1776.000 ml 100.0 ml Tube Feeding 240 ml 200 ml Output Urine Total 1500 ml 1215 ml # Bowel Movements 2 3 Laboratory Tests 09/17/18 16:13: Arterial Blood pH 7.467H, Arterial Blood Partial Pressure CO2 31.2L, Arterial Blood Partial Pressure O2 73.9L, Arterial Blood HCO3 22.0, Arterial Blood Oxygen Saturation 95.4, Arterial Blood Base Excess -0.9, Ray Test Positive 09/18/18 04:00: White Blood Count 11.5H, Red Blood Count 3.69L, Hemoglobin 11.4L, Hematocrit 34.6L, Mean Corpuscular Volume 94, Mean Corpuscular Hemoglobin 30.9, Mean Corpuscular Hemoglobin Concent 32.9, Red Cell Distribution Width 13.7, Platelet Count 139L, Mean Platelet Volume 9.6, Neutrophils (%) (Auto) 84.0H, Lymphocytes (%) (Auto) 9.9L, Monocytes (%) (Auto) 4.5, Eosinophils (%) (Auto) 1.1, Basophils (%) (Auto) 0.5, Sodium Level 141, Potassium Level 3.3L, Chloride Level 107, Carbon Dioxide Level 26, Anion Gap 8, Blood Urea Nitrogen 8, Creatinine 0.6, Estimat Glomerular Filtration Rate , Glucose Level 147#H, Uric Acid 2.9, Calcium Level 8.6, Phosphorus Level 2.3L, Magnesium Level 1.9, Iron Level 21L, Total Iron Binding Capacity 116L, Percent Iron Saturation 18, Unsaturated Iron Binding 95L, Ferritin 338, Total Bilirubin 0.5, Aspartate Amino Transf (AST/SGOT) 19, Alanine Aminotransferase (ALT/SGPT) 10L, Alkaline Phosphatase 92, Total Protein 6.0L, Albumin 1.4L, Globulin 4.6, Albumin/ Globulin Ratio 0.3L, Vitamin B12 Level 783, Folate 23.3, Thyroid Stimulating Hormone (TSH) 2.512 Height (Feet): 5 Height (Inches): 3.00 Weight (Pounds): 126 General Appearance: WD/WN, no apparent distress, other - intubated EENT: other - blinks in response to hand motion Neck: non-tender, normal alignment Cardiovascular: normal peripheral pulses, normal rate, regular rhythm Respiratory/Chest: no respiratory distress, no accessory muscle use, rhonchi - bilaterally Abdomen: non tender, soft, no organomegaly Extremities: non-tender, normal capillary refill Neurologic: other - no gag reflex, does not respond to deep pain stimuli Desiree Helm DO Sep 18, 2018 15:29
--- NOTE | 2018-09-18 15:39 | NUR ---
NURSE NOTES:WOUND CARE NOTES:Pt presented on admission with Intact serous filled blister with surrounding erythema L earlobe. Partially opened DTPI sacrum. Base of wound maroon in colour and is indurated. Base of wound at sacrococcygeal area is moist with trace amt of slough (L)3.4cm x (W)3.3cm. Non-blanching erythema periwound. Non-blanchable erythema without fluctuance both heels. Tx.Plan: Cleanse sacral wound with Saline. Apply Therahoney. Apply Moisture Barrier Paste periwound. Cover with Optifoam drsg. Change Daily and prn. Swab L earlobe with Benzoin Tincture. Cover with Optifoam drsg. Change every 7 days and prn. Apply Cavilon Skin Barrier to both heels. Cover each heel with Optifoam drsg. Change every 7 days and prn. APM/LOU Mattress overlay. Reposition at least every 2hours or as tolerated. Off-load heels with pillow.
--- NOTE | 2018-09-18 16:30 | NUR ---
NURSE NOTES: Cleaned pt for small loose BM for the second time. Turned and repositioned pt. Temp 98.9. No acute distress noted. Will continue to monitor.
--- NOTE | 2018-09-18 16:48 | Hematology/Onc Progress Note ---
Assessment/Plan Assessment/Plan Assessment and Recs: # Thrombocytopenia - potential causes multifactorial, evaluate liver and viral etiologies to begin, also could be related to underlying medications patient has received. --> Hep panel and HIV show neg results --> US abd shows no cirrhosis or hsm --> Peripheral smear ordered to evaluate for blasts /schistocytes --> abx and other meds have been reviewed --> ok for ppx if plt >50k w/ either heparin or lovenox --> Transfuse if Plt < 20k and fever, or if Plt < 10k without fever --> trend plts --> 182k-->160-->140-->119-->140k --> meds reviewed and may be 2/2 vanc and amikacin but at this time ok to continue since borderline # Anemia of chronic disease (or of iron deficiency) due to underlying chronic medical issues, multifactorial --> Anemia workup has been ordered, rule out gi bleed --> No evidence of hemolysis is noted, peripheral smear has been reviewed. --> Hgb goal >7. Transfuse prn. --> Iron to continue --> Medications have been reviewed # Dysphagia and now s/p G tube feedings --> as per gi, peg tube feedsings # Respo failure on vent --> per pulm/cc # Dehydration --> on ivfs, currently off per renal # Sepsis --> abx per id # DVT ppx with heparin sq The timing of this note does not necessarily reflect the time of the patient was seen. GREATLY APPRECIATE CONSULTATION. Subjective Constitutional: Denies: no symptoms, chills, fever, malaise, weakness, other HEENT: Denies: no symptoms, eye pain, blurred vision, tearing, double vision, ear pain, ear discharge, nose pain, nose congestion, throat pain, throat swelling, mouth pain, mouth swelling, other Cardiovascular: Denies: no symptoms, chest pain, edema, irregular heart rate, lightheadedness, palpitations, syncope, other Respiratory: Denies: no symptoms, cough, shortness of breath, SOB with excertion, SOB at rest, sputum, wheezing, other Gastrointestinal/Abdominal: Denies: no symptoms, abdomen distended, abdominal pain, black stools, tarry stools, blood in stool, constipated, diarrhea, difficulty swallowing, nausea, poor appetite, poor fluid intake, rectal bleeding , vomiting, other Neurologic/Psychiatric: Denies: no symptoms, anxiety, depressed, emotional problems, headache, numbness, paresthesia, pre-existing deficit, seizure, tingling, tremors, weakness, other Endocrine: Denies: no symptoms, excessive sweating, flushing, intolerance to cold, intolerance to heat, increased hunger, increased thirst, increased urine, unexplained weight gain, unexplained weight loss, other Hematologic/Lymphatic: Denies: no symptoms, anemia, easy bleeding, easy bruising, adenopathy, other Allergies: Coded Allergies: No Known Allergies (Unverified , 02/04/17) Subjective 09/18: is on iron, as well as broad spectrum abx, labs reviewed Objective Objective Current Medications Medications (Trade) Dose Ordered Sig/Wayne Route PRN Reason Start Time Stop Time Status Last Admin Dose Admin Acetaminophen (Tylenol) 650 mg Q4H PRN ORAL FEVER 09/14/18 12:45 10/14/18 12:44 09/17/18 00:12 Albuterol/ Ipratropium (Albuterol/ Ipratropium) 3 ml Q6H PRN HHN Shortness of Breath 09/14/18 12:45 09/19/18 12:44 Albuterol/ Ipratropium (Albuterol/ Ipratropium) 3 ml Q6HRT HHN 09/14/18 19:00 09/19/18 18:59 09/18/18 13:23 Amikacin Protocol (Amikacin pharmacy to dose) 1 ea DAILY PRN MISC Per rx protocol 09/15/18 17:15 10/15/18 17:14 Amikacin Sulfate 750 mg/Sodium Chloride 113 ml @ 113 mls/hr Q24H IV 09/16/18 18:00 09/23/18 17:59 09/17/18 17:37 Artificial Tears (Akwa-Tears) 1 drop Q4H PRN BOTH EYES Dry Eyes 09/18/18 12:30 10/18/18 12:29 Ascorbic Acid (Vitamin C) 250 mg TWICE A DAY ORAL 09/18/18 18:00 10/18/18 17:59 Bisacodyl (Dulcolax) 10 mg DAILYPRN PRN RECTAL Constipation 09/14/18 12:45 10/14/18 12:44 Chlorhexidine Gluconate (Kamla-Hex 2%) 1 applic DAILY@2000 TOPIC 09/17/18 20:00 10/17/18 19:59 09/17/18 21:21 Dextrose (Dextrose 50%) 25 ml Q30M PRN IV Hypoglycemia 09/14/18 12:45 10/14/18 12:44 Dextrose (Dextrose 50%) 50 ml Q30M PRN IV Hypoglycemia 09/14/18 12:45 10/14/18 12:44 Diphenhydramine HCl (Benadryl) 25 mg Q6H PRN ORAL Itching/Pruritis 09/14/18 12:45 10/14/18 12:44 Docusate Sodium (Colace) 100 mg EVERY 12 HOURS ORAL 09/14/18 21:00 10/14/18 20:59 09/17/18 21:21 Heparin Sodium (Porcine) (Heparin 5000 units/ml) 5,000 units EVERY 12 HOURS SUBQ 09/14/18 21:00 10/14/18 20:59 09/18/18 09:17 Insulin Aspart (NovoLOG) Q6HR SUBQ 09/14/18 16:00 10/14/18 15:59 09/18/18 12:56 Insulin Detemir (Levemir) 12 units BEDTIME SUBQ 09/17/18 21:00 10/17/18 20:59 09/17/18 21:23 Iron Sucrose 100 mg/Sodium Chloride 60 ml @ 240 mls/hr QHS IV 09/18/18 21:00 09/22/18 21:14 Lorazepam (Ativan 2mg/ml 1ml) 0.5 mg Q4H PRN IV For Anxiety 09/14/18 12:45 09/21/18 12:44 Magnesium Hydroxide (Mom) 30 ml HSPRN PRN ORAL Constipation 09/14/18 12:45 10/14/18 12:44 Metoclopramide HCl (Reglan) 10 mg Q8H PRN IVP Nausea & Vomiting 09/17/18 12:30 10/17/18 12:29 Ondansetron HCl (Zofran) 4 mg Q6H PRN IVP Nausea & Vomiting 09/14/18 12:45 10/14/18 12:44 09/17/18 07:41 Pantoprazole (Protonix) 40 mg DAILY IV 09/15/18 09:00 10/15/18 08:59 09/18/18 09:16 Piperacillin Sod/ Tazobactam Sod 3.375 gm/Dextrose 100 ml @ 25 mls/hr EVERY 8 HOURS IVPB 09/17/18 14:00 09/22/18 13:59 09/18/18 14:48 Vancomycin HCl (Vanco rx to dose) 1 ea DAILY PRN MISC Per rx protocol 09/14/18 12:45 10/14/18 12:44 Vancomycin HCl 750 mg/Sodium Chloride 275 ml @ 183.333 mls/hr Q24H IVPB 09/17/18 12:00 09/22/18 11:59 09/18/18 12:35 Last 24 Hour Vital Signs Date Time Temp Pulse Resp B/P (MAP) Pulse Ox O2 Delivery O2 Flow Rate FiO2 09/18/18 15:14 73 14 30 09/18/18 15:00 79 14 135/70 (91) 99 09/18/18 14:00 73 14 115/52 (73) 99 09/18/18 13:42 72 14 100 Mechanical Ventilator 30 09/18/18 13:24 71 14 100 Mechanical Ventilator 30 09/18/18 13:23 71 14 30 09/18/18 13:00 72 16 130/53 (78) 100 09/18/18 12:00 99.2 67 14 132/47 (75) 100 09/18/18 12:00 Mechanical Ventilator 09/18/18 12:00 75 09/18/18 11:48 70 16 30 09/18/18 11:38 30 09/18/18 11:00 70 23 128/52 (77) 99 09/18/18 10:30 74 25 30 30 09/18/18 10:00 71 22 119/50 (73) 98 09/18/18 09:14 30 09/18/18 09:12 97 09/18/18 09:07 71 25 30 09/18/18 09:00 70 15 116/49 (71) 99 09/18/18 08:00 70 14 113/43 (66) 97 09/18/18 08:00 Mechanical Ventilator 09/18/18 08:00 30 09/18/18 07:52 69 09/18/18 07:48 67 14 98 Mechanical Ventilator 30 09/18/18 07:35 64 14 98 Mechanical Ventilator 30 09/18/18 07:33 64 14 30 09/18/18 07:00 66 14 112/54 (73) 96 09/18/18 06:00 99.7 64 14 113/58 (76) 98 09/18/18 05:11 65 14 30 09/18/18 05:00 99.0 68 15 108/48 (68) 97 09/18/18 04:00 64 14 151/60 (90) 98 09/18/18 04:00 Mechanical Ventilator 09/18/18 04:00 30 09/18/18 04:00 78 09/18/18 03:00 66 14 108/44 (65) 98 09/18/18 02:58 68 14 30 09/18/18 02:00 71 14 104/45 (64) 97 09/18/18 01:03 80 19 100 Mechanical Ventilator 30 09/18/18 01:00 70 15 133/42 (72) 97 09/18/18 00:53 66 14 98 Mechanical Ventilator 30 09/18/18 00:53 66 14 30 09/18/18 00:06 66 09/18/18 00:00 Mechanical Ventilator 09/18/18 00:00 68 14 106/44 (64) 98 09/17/18 23:00 99.1 65 16 110/58 (75) 96 09/17/18 22:33 61 14 30 09/17/18 22:00 61 14 103/45 (64) 98 09/17/18 20:54 67 14 30 09/17/18 20:04 71 09/17/18 20:00 30 09/17/18 20:00 66 14 92/44 (60) 98 09/17/18 20:00 Mechanical Ventilator 09/17/18 19:16 72 17 100 Mechanical Ventilator 30 09/17/18 19:06 62 14 99 Mechanical Ventilator 30 09/17/18 19:05 62 14 30 09/17/18 19:00 63 14 91/44 (60) 98 09/17/18 18:00 67 14 97/42 (60) 99 09/17/18 17:00 73 17 127/65 (85) 97 09/17/18 16:39 30 09/17/18 16:35 74 20 30 09/17/18 16:00 Mechanical Ventilator 09/17/18 16:00 99.5 74 25 121/54 (76) 96 09/17/18 15:15 30 09/17/18 15:10 70 14 30 09/17/18 15:00 70 14 110/45 (66) 97 09/17/18 14:49 72 09/17/18 14:00 88 15 138/64 (88) 97 09/17/18 13:01 67 14 100 Mechanical Ventilator 30 09/17/18 13:00 67 14 108/47 (67) 99 09/17/18 12:51 66 14 98 Mechanical Ventilator 30 09/17/18 12:50 66 14 30 09/17/18 12:00 73 09/17/18 12:00 Mechanical Ventilator 09/17/18 12:00 99.3 73 15 130/48 (75) 99 09/17/18 11:10 71 15 30 09/17/18 11:00 72 15 90/39 (56) 99 09/17/18 10:00 74 14 105/48 (67) 99 09/17/18 09:25 73 15 30 09/17/18 09:00 74 16 124/50 (74) 100 09/17/18 08:00 30 09/17/18 08:00 82 15 116/47 (70) 99 09/17/18 08:00 Mechanical Ventilator 09/17/18 07:43 83 09/17/18 07:12 79 16 100 Mechanical Ventilator 30 09/17/18 07:02 78 16 100 Mechanical Ventilator 30 09/17/18 07:00 85 19 130/67 (88) 98 09/17/18 07:00 99.3 76 14 114/49 (70) 100 09/17/18 06:45 76 17 30 09/17/18 06:00 85 19 130/67 (88) 98 09/17/18 05:03 73 15 30 09/17/18 05:00 74 15 106/50 (68) 100 09/17/18 04:00 Mechanical Ventilator 09/17/18 04:00 86 09/17/18 04:00 30 09/17/18 04:00 99.2 75 16 105/44 (64) 98 09/17/18 03:05 90 16 30 09/17/18 03:00 91 15 111/43 (65) 97 09/17/18 02:00 95 18 105/57 (73) 96 09/17/18 01:15 93 19 98 Mechanical Ventilator 30 09/17/18 01:05 97 24 30 09/17/18 01:05 97 24 97 Mechanical Ventilator 30 09/17/18 01:00 97 20 113/47 (69) 97 09/17/18 00:48 100.6 09/17/18 00:00 80 09/17/18 00:00 30 09/17/18 00:00 100.8 80 20 107/44 (65) 98 09/17/18 00:00 Mechanical Ventilator 09/16/18 23:00 78 19 113/47 (69) 98 09/16/18 22:50 78 18 30 09/16/18 22:00 76 18 113/47 (69) 99 09/16/18 21:11 76 19 30 09/16/18 21:00 76 18 114/49 (70) 99 09/16/18 20:00 Mechanical Ventilator 09/16/18 20:00 30 09/16/18 20:00 98.7 76 21 107/46 (66) 99 09/16/18 20:00 75 09/16/18 19:05 73 20 100 Mechanical Ventilator 30 09/16/18 19:00 74 20 136/73 (94) 100 09/16/18 18:55 71 19 99 Mechanical Ventilator 30 09/16/18 18:53 71 19 30 09/16/18 18:00 98.6 70 20 116/47 (70) 99 09/16/18 17:00 65 17 108/43 (64) 100 Intake and Output 09/17/18 09/18/18 18:59 06:59 Intake Total 2556.000 ml 550.0 ml Output Total 1500 ml 1215 ml Balance 1056.000 ml -665.0 ml Intake Free Water 540 ml 250 ml IV Total 1776.000 ml 100.0 ml Tube Feeding 240 ml 200 ml Output Urine Total 1500 ml 1215 ml # Bowel Movements 2 3 Labs Test 09/15/18 20:20 09/16/18 02:05 09/16/18 02:55 09/16/18 05:45 Sodium Level 147 MMOL/L (136-145) 148 MMOL/L (136-145) Potassium Level 3.6 MMOL/L (3.5-5.1) 3.4 MMOL/L (3.5-5.1) Chloride Level 110 MMOL/L (98-107) 111 MMOL/L (98-107) Carbon Dioxide Level 26 MMOL/L (21-32) 24 MMOL/L (21-32) Anion Gap 11 mmol/L (5-15) 13 mmol/L (5-15) Blood Urea Nitrogen 32 mg/dL (7-18) 28 mg/dL (7-18) Creatinine 1.1 MG/DL (0.55-1.30) 1.0 MG/DL (0.55-1.30) Estimat Glomerular Filtration Rate mL/min (>60) mL/min (>60) Glucose Level 282 MG/DL (74-106) 218 MG/DL (74-106) Lactic Acid Level 4.30 mmol/L (0.4-2.0) 3.80 mmol/L (0.4-2.0) 3.80 mmol/L (0.66-2.22) 3.20 mmol/L (0.4-2.0) Calcium Level 8.1 MG/DL (8.5-10.1) 8.7 MG/DL (8.5-10.1) White Blood Count 15.7 K/UL (4.8-10.8) Red Blood Count 4.13 M/UL (4.20-5.40) Hemoglobin 12.9 G/DL (12.0-16.0) Hematocrit 40.5 % (37.0-47.0) Mean Corpuscular Volume 98 FL (80-99) Mean Corpuscular Hemoglobin 31.3 PG (27.0-31.0) Mean Corpuscular Hemoglobin Concent 31.9 G/DL (32.0-36.0) Red Cell Distribution Width 14.1 % (11.6-14.8) Platelet Count 141 K/UL (150-450) Mean Platelet Volume 10.4 FL (6.5-10.1) Neutrophils (%) (Auto) 83.7 % (45.0-75.0) Lymphocytes (%) (Auto) 13.7 % (20.0-45.0) Monocytes (%) (Auto) 2.1 % (1.0-10.0) Eosinophils (%) (Auto) 0.2 % (0.0-3.0) Basophils (%) (Auto) 0.2 % (0.0-2.0) Magnesium Level 2.0 MG/DL (1.8-2.4) Total Bilirubin 0.9 MG/DL (0.2-1.0) Aspartate Amino Transf (AST/SGOT) 16 U/L (15-37) Alanine Aminotransferase (ALT/SGPT) 11 U/L (12-78) Alkaline Phosphatase 103 U/L (46-116) Total Protein 6.6 G/DL (6.4-8.2) Albumin 2.0 G/DL (3.4-5.0) Globulin 4.6 g/dL Albumin/Globulin Ratio 0.4 (1.0-2.7) Random Amikacin Level 8.1 ug/mL Random Vancomycin Level 6.8 ug/mL Test 09/16/18 10:45 09/16/18 16:15 09/17/18 04:25 09/17/18 16:13 Lactic Acid Level 1.90 mmol/L (0.66-2.22) Stool Occult Blood Negative (NEGATIVE) White Blood Count 13.8 K/UL (4.8-10.8) Red Blood Count 3.85 M/UL (4.20-5.40) Hemoglobin 12.0 G/DL (12.0-16.0) Hematocrit 36.2 % (37.0-47.0) Mean Corpuscular Volume 94 FL (80-99) Mean Corpuscular Hemoglobin 31.1 PG (27.0-31.0) Mean Corpuscular Hemoglobin Concent 33.1 G/DL (32.0-36.0) Red Cell Distribution Width 13.2 % (11.6-14.8) Platelet Count 119 K/UL (150-450) Mean Platelet Volume 11.3 FL (6.5-10.1) Neutrophils (%) (Auto) % (45.0-75.0) Lymphocytes (%) (Auto) % (20.0-45.0) Monocytes (%) (Auto) % (1.0-10.0) Eosinophils (%) (Auto) % (0.0-3.0) Basophils (%) (Auto) % (0.0-2.0) Sodium Level 137 MMOL/L (136-145) Potassium Level 3.0 MMOL/L (3.5-5.1) Chloride Level 104 MMOL/L (98-107) Carbon Dioxide Level 24 MMOL/L (21-32) Anion Gap 9 mmol/L (5-15) Blood Urea Nitrogen 13 mg/dL (7-18) Creatinine 0.7 MG/DL (0.55-1.30) Estimat Glomerular Filtration Rate mL/min (>60) Glucose Level 269 MG/DL (74-106) Calcium Level 8.5 MG/DL (8.5-10.1) Total Bilirubin 0.6 MG/DL (0.2-1.0) Aspartate Amino Transf (AST/SGOT) 18 U/L (15-37) Alanine Aminotransferase (ALT/SGPT) < 6 U/L (12-78) Alkaline Phosphatase 90 U/L (46-116) Total Protein 6.1 G/DL (6.4-8.2) Albumin 1.4 G/DL (3.4-5.0) Globulin 4.7 g/dL Albumin/Globulin Ratio 0.3 (1.0-2.7) Hepatitis A IgM Antibody Negative (Negative) Hepatitis B Surface Antigen Negative (Negative) Hepatitis B Core IgM Antibody Negative (Negative) Hepatitis C Antibody <0.1 s/co ratio HIV (1&2) Antibody Rapid Negative (NEGATIVE) Arterial Blood pH 7.467 (7.350-7.450) Arterial Blood Partial Pressure CO2 31.2 mmHg (35.0-45.0) Arterial Blood Partial Pressure O2 73.9 mmHg (75.0-100.0) Arterial Blood HCO3 22.0 mmol/L (22.0-26.0) Arterial Blood Oxygen Saturation 95.4 % (95-100) Arterial Blood Base Excess -0.9 (-2-2) Ray Test Positive Test 09/18/18 04:00 White Blood Count 11.5 K/UL (4.8-10.8) Red Blood Count 3.69 M/UL (4.20-5.40) Hemoglobin 11.4 G/DL (12.0-16.0) Hematocrit 34.6 % (37.0-47.0) Mean Corpuscular Volume 94 FL (80-99) Mean Corpuscular Hemoglobin 30.9 PG (27.0-31.0) Mean Corpuscular Hemoglobin Concent 32.9 G/DL (32.0-36.0) Red Cell Distribution Width 13.7 % (11.6-14.8) Platelet Count 139 K/UL (150-450) Mean Platelet Volume 9.6 FL (6.5-10.1) Neutrophils (%) (Auto) 84.0 % (45.0-75.0) Lymphocytes (%) (Auto) 9.9 % (20.0-45.0) Monocytes (%) (Auto) 4.5 % (1.0-10.0) Eosinophils (%) (Auto) 1.1 % (0.0-3.0) Basophils (%) (Auto) 0.5 % (0.0-2.0) Sodium Level 141 MMOL/L (136-145) Potassium Level 3.3 MMOL/L (3.5-5.1) Chloride Level 107 MMOL/L (98-107) Carbon Dioxide Level 26 MMOL/L (21-32) Anion Gap 8 mmol/L (5-15) Blood Urea Nitrogen 8 mg/dL (7-18) Creatinine 0.6 MG/DL (0.55-1.30) Estimat Glomerular Filtration Rate mL/min (>60) Glucose Level 147 MG/DL (74-106) Uric Acid 2.9 MG/DL (2.6-7.2) Calcium Level 8.6 MG/DL (8.5-10.1) Phosphorus Level 2.3 MG/DL (2.5-4.9) Magnesium Level 1.9 MG/DL (1.8-2.4) Iron Level 21 ug/dL (50-175) Total Iron Binding Capacity 116 ug/dL (250-450) Percent Iron Saturation 18 % (15-50) Unsaturated Iron Binding 95 ug/dL (112-346) Ferritin 338 NG/ML (8-388) Total Bilirubin 0.5 MG/DL (0.2-1.0) Aspartate Amino Transf (AST/SGOT) 19 U/L (15-37) Alanine Aminotransferase (ALT/SGPT) 10 U/L (12-78) Alkaline Phosphatase 92 U/L (46-116) Total Protein 6.0 G/DL (6.4-8.2) Albumin 1.4 G/DL (3.4-5.0) Globulin 4.6 g/dL Albumin/Globulin Ratio 0.3 (1.0-2.7) Vitamin B12 Level 783 PG/ML (193-986) Folate 23.3 NG/ML (8.6-58.9) Thyroid Stimulating Hormone (TSH) 2.512 uiU/mL (0.358-3.740) Height (Feet): 5 Height (Inches): 3.00 Weight (Pounds): 126 Objective Physical Exam: Vitals: reviewed General Appearance: NAD HEENT: normocephalic, atraumatic ++ogt Chest: normal breath sounds bilaterally ++ vent Cardiovascular: normal peripheral pulses, normal rate Abdomen: normal bowel sounds, soft, nontender ++ gtube Extremities: normal range of motion Mateo Wei MD Sep 18, 2018 16:47
[2018-09-18] MEDS: Amikacin 750 MG in NS 110 ML IV SCH (17:49)
[2018-09-18] MEDS: Ascorbic Acid 500mg tab ORAL SCH (17:49)
--- NOTE | 2018-09-18 19:09 | Cardiology Report ---
APPROVED REPORT EXAM: Two-dimensional and M-mode echocardiogram with Doppler and color Doppler. INDICATION Left ventricular function M-Mode DIMENSIONS IVSd1.4 (0.7-1.1cm)Left Atrium (MM)4.0 (1.6-4.0cm) LVDd2.7 (3.5-5.6cm)Aortic Root2.8 (2.0-3.7cm) PWd1.4 (0.7-1.1cm)Aortic Cusp Exc.1.5 (1.5-2.0cm) LVDs0.9 (2.5-4.0cm) PWs1.6 cm Normal left ventricular chamber size, systolic function and wall motion. Left ventricular ejection fraction estimated to be 65 %. Mild left ventricular hypertrophy. Anterior Echo-free space, may be due to pericardial fat or effusion. All other cardiac chamber sizes are within normal limits. Focal aortic valve sclerosis with adequate cusp excursion. Thickened mitral valve leaflets with normal excursion. Miild mitral annulus and aortic root calcification. Pulmonic valve not well visualized. Normal tricuspid valve structure. IVC is normal in size with physiological collapse. A color flow and spectral Doppler study was performed and revealed: Mild to moderate aortic regurgitation. No mitral regurgitation. Mitral diastolic velocities suggest mild left ventricular diastolic dysfunction (Grade I). Trace tricuspid regurgitation. Tricuspid systolic velocities suggests peak right ventricular systolic pressure of 19 mmHg. Trace pulmonic regurgitation present.
--- NOTE | 2018-09-18 19:25 | NUR ---
HAND-OFF: Report given to Severino Webster RN.
--- NOTE | 2018-09-18 19:40 | NUR ---
NURSE NOTES: PATIENT OPEN EYES TO VOICE, DID NOT FOLLOWED COMMANDS, ON ETT TO VENT AC 14/TV 500/FIO2 30%/PEEP 5, O2 SATURATION 98% NOTED AT THIS TIME, ABDOMEN SOFT, G TUBE INTACT AND PATENT, ONGOING GLUCERNA 1.2 AT 30ML/HR STATUS, NO RESIDUE NOTED, GOAL IS 60ML/HR, KEPT HOB OVER 30 DEGREES, F/C INTACT AND PATENT, YELLOW URINE OUTED GRAVITY, PERIPHERAL LINE TO LEFT FA 22G, RIGHT HAND 20G, RIGHT FORE ARM 20G AND PICC LINE TO LEFT UPPER ARM INTACT AND PATENT, CLEANED AND DRIED DRESSING STATUS, MADE LOWER BED POSITION, ON P200 BED WITH ON BED ALARM, PROVIDED CALL LIGHT WITHIN REACH, WILL CONTINUE TO MONITOR.
[2018-09-18] MEDS: Dyna-Hex 2% Top Sol 2oz TOPIC SCH (19:50)
--- NOTE | 2018-09-18 20:10 | NUR ---
NURSE NOTES: FOUND LOOSEN LEFT LOWER SMALL INCISION TOOTH, WILL CONTINUE TO MONITOR.
[2018-09-18] MEDS: Levemir Flexpen SUBQ SCH (20:34)
[2018-09-18] MEDS: Iron Sucrose 100 MG in NS 55 ML IV SCH (21:06)
--- NOTE | 2018-09-18 22:00 | NUR ---
NURSE NOTES: REPOSITIONED, ORAL CARE WAS DONE CAREFULLY, WILL CONTINUE PLAN OF CARE.
[2018-09-19] VITALS (24 sets, daily range): BP systolic 89–128; BP diastolic 39–57
--- NOTE | 2018-09-19 00:10 | NUR ---
NURSE NOTES: PATIENT ASLEEP STATUS, NO PAIN OR SOB NOTED.
[2018-09-19] MEDS: Albuterol/Ipratropium 3ml neb HHN SCH ×3 (01:11→13:45)
--- NOTE | 2018-09-19 02:50 | NUR ---
NURSE NOTES: MORNING CARE AND ORAL CARE WAS DONE, MODERATED AMOUNT BROWN COLOR LOOSE STOOL NOTED, WILL CONTINUE TO MONITOR.
--- NOTE | 2018-09-19 05:00 | NUR ---
NURSE NOTES: NO PAIN OR DISTRESS NOTED AT THIS TIME.
[2018-09-19 05:23] LABS: ALANINE AMINOTRANSFERASE 13 U/L (12-78); ALBUMIN 1.3 G/DL (3.4-5.0); ALBUMIN/GLOBULIN RATIO 0.3 (1.0-2.7); ALKALINE PHOSPHATASE 96 U/L (46-116); ANION GAP 8 mmol/L (5-15); ASPARTATE AMINO TRANSFERASE 20 U/L (15-37); BILIRUBIN,TOTAL 0.3 MG/DL (0.2-1.0); BLOOD UREA NITROGEN 7 mg/dL (7-18); CALCIUM 8.3 MG/DL (8.5-10.1); CARBON DIOXIDE 26 MMOL/L (21-32); CHLORIDE 107 MMOL/L (98-107); CREATININE 0.6 MG/DL (0.55-1.30); POTASSIUM 3.2 MMOL/L (3.5-5.1); SODIUM 141 MMOL/L (136-145)
[2018-09-19 05:36] LABS: BASOPHILS % (AUTO) 0.6 % (0.0-2.0); EOSINOPHILS % (AUTO) 1.4 % (0.0-3.0); HEMOGLOBIN 10.7 G/DL (12.0-16.0); MEAN CORPUSCULAR VOLUME 95 FL (80-99); MONOCYTES % (AUTO) 5.5 % (1.0-10.0); NEUTROPHILS % (AUTO) 83.4 % (45.0-75.0); PLATELET COUNT 200 K/UL (150-450); RED BLOOD COUNT 3.47 M/UL (4.20-5.40); RED CELL DISTRIBUTION WIDTH 13.5 % (11.6-14.8); WHITE BLOOD COUNT 7.2 K/UL (4.8-10.8)
[2018-09-19] MEDS: NovoLOG Insulin Flexpen SUBQ SCH ×4 (05:44→23:31)
--- NOTE | 2018-09-19 06:53 | NUR ---
NURSE NOTES: NO ACUTE DISTRESS NOTED AT THIS SHIFT.
--- NOTE | 2018-09-19 07:23 | NUR ---
RESPIRATORY NOTE: received pt orally intubated with ett 7.0, placed 22 cm at the lip. no resp distress noted at this time. pt has loose bottom left tooth and will watch for ett placement. will wean pt later this am and cont to monitor. alarms are set and audible. ett is secured via anchor fast. breathing tx as followed.
--- NOTE | 2018-09-19 07:33 | NUR ---
HAND-OFF: Report given to FELIX SKY.
--- NOTE | 2018-09-19 08:20 | NUR ---
NURSE NOTES: Patient stated on weaning protocol with Setting of CPAP and PS of 8, patient remains breathing at 22-28 breaths per minute, she is able to open eyes spontaneously.
--- NOTE | 2018-09-19 08:41 | General Progress Note ---
Assessment/Plan Problem List: (1) DM (diabetes mellitus) ICD Codes: E11.9 - Type 2 diabetes mellitus without complications SNOMED: 23420717 (2) CVA, old, hemiparesis ICD Codes: I69.359 - Hemiplegia and hemiparesis following cerebral infarction affecting unspecified side; R65.20 - Severe sepsis without septic shock SNOMED: 050310335 (3) Severe sepsis ICD Codes: A41.9 - Sepsis, unspecified organism; R65.20 - Severe sepsis without septic shock SNOMED: 77506943 (4) Respiratory failure ICD Codes: J96.90 - Respiratory failure, unspecified, unspecified whether with hypoxia or hypercapnia SNOMED: 302520694 (5) Dehydration ICD Codes: E86.0 - Dehydration SNOMED: 71306135 (6) Large ischemic R MCA stroke (7) HTN (hypertension) ICD Codes: I10 - Essential (primary) hypertension SNOMED: 87718003 (8) G tube feedings ICD Codes: Z93.1 - Gastrostomy status SNOMED: 689157379, 770766083, 908996093 Status: unchanged Assessment/Plan: GTF>> increase to 50 fu labs abx per ID respiratory care fu abd us>> neg Subjective ROS Limited/Unobtainable: No Allergies: Coded Allergies: No Known Allergies (Unverified , 02/04/17) Objective Last 24 Hour Vital Signs Date Time Temp Pulse Resp B/P (MAP) Pulse Ox O2 Delivery O2 Flow Rate FiO2 09/19/18 08:26 94 09/19/18 07:25 85 14 97 Mechanical Ventilator 30 09/19/18 07:19 79 18 97 Mechanical Ventilator 30 09/19/18 07:19 82 19 30 09/19/18 07:00 90 23 96/50 (65) 96 09/19/18 06:00 71 14 111/51 (71) 97 09/19/18 05:24 79 15 30 30 09/19/18 05:00 79 14 105/48 (67) 100 09/19/18 04:00 Mechanical Ventilator 09/19/18 04:00 99.1 68 14 106/50 (68) 98 09/19/18 04:00 30 09/19/18 03:04 76 09/19/18 03:00 76 14 95/48 (64) 97 09/19/18 02:34 75 14 30 30 09/19/18 02:00 76 14 104/46 (65) 95 09/19/18 01:16 78 14 99 Mechanical Ventilator 30 09/19/18 01:10 73 14 94 Mechanical Ventilator 30 09/19/18 01:09 73 14 30 30 09/19/18 01:00 75 14 89/43 (58) 94 09/19/18 00:00 99.8 76 14 112/50 (70) 96 09/19/18 00:00 30 09/19/18 00:00 Mechanical Ventilator 09/18/18 23:04 84 09/18/18 23:00 83 14 106/50 (68) 96 09/18/18 22:49 85 14 30 30 09/18/18 22:00 77 14 108/47 (67) 96 09/18/18 21:00 81 16 114/46 (68) 97 09/18/18 20:44 81 14 30 30 09/18/18 20:00 99.2 78 14 112/47 (68) 98 09/18/18 20:00 Mechanical Ventilator 09/18/18 20:00 30 09/18/18 19:34 76 09/18/18 19:08 79 14 99 Mechanical Ventilator 30 09/18/18 19:00 75 14 124/49 (74) 100 09/18/18 18:58 71 14 96 Mechanical Ventilator 30 09/18/18 18:56 71 14 30 30 09/18/18 18:00 73 14 113/47 (69) 98 09/18/18 17:36 82 14 30 09/18/18 17:00 98.9 75 14 105/47 (66) 98 09/18/18 16:00 79 14 124/55 (78) 99 09/18/18 16:00 Mechanical Ventilator 09/18/18 16:00 30 09/18/18 15:45 77 09/18/18 15:14 73 14 30 09/18/18 15:00 79 14 135/70 (91) 99 09/18/18 14:00 73 14 115/52 (73) 99 09/18/18 13:42 72 14 100 Mechanical Ventilator 30 09/18/18 13:24 71 14 100 Mechanical Ventilator 30 09/18/18 13:23 71 14 30 09/18/18 13:00 72 16 130/53 (78) 100 09/18/18 12:00 99.2 67 14 132/47 (75) 100 09/18/18 12:00 Mechanical Ventilator 09/18/18 12:00 75 09/18/18 11:48 70 16 30 09/18/18 11:38 30 09/18/18 11:00 70 23 128/52 (77) 99 09/18/18 10:30 74 25 30 30 09/18/18 10:00 71 22 119/50 (73) 98 09/18/18 09:14 30 09/18/18 09:12 97 09/18/18 09:07 71 25 30 09/18/18 09:00 70 15 116/49 (71) 99 Intake and Output 09/18/18 09/19/18 19:00 07:00 Intake Total 1173.000 ml 1145 ml Output Total 1330 ml 895 ml Balance -157.000 ml 250 ml Intake Free Water 300 ml 500 ml IV Total 663.000 ml 185 ml Tube Feeding 210 ml 420 ml Other 40 ml Output Urine Total 1330 ml 895 ml # Bowel Movements 4 2 Laboratory Tests 09/19/18 04:15: White Blood Count 7.2, Red Blood Count 3.47L, Hemoglobin 10.7L, Hematocrit 33.0L , Mean Corpuscular Volume 95, Mean Corpuscular Hemoglobin 30.8, Mean Corpuscular Hemoglobin Concent 32.4, Red Cell Distribution Width 13.5, Platelet Count 200, Mean Platelet Volume 9.0, Neutrophils (%) (Auto) 83.4H, Lymphocytes ( %) (Auto) 9.0L, Monocytes (%) (Auto) 5.5, Eosinophils (%) (Auto) 1.4, Basophils (%) (Auto) 0.6, Sodium Level 141, Potassium Level 3.2L, Chloride Level 107, Carbon Dioxide Level 26, Anion Gap 8, Blood Urea Nitrogen 7, Creatinine 0.6, Estimat Glomerular Filtration Rate , Glucose Level 162H, Calcium Level 8.3L, Total Bilirubin 0.3, Aspartate Amino Transf (AST/SGOT) 20, Alanine Aminotransferase (ALT/SGPT) 13, Alkaline Phosphatase 96, Total Protein 5.7L, Albumin 1.3L, Globulin 4.4, Albumin/Globulin Ratio 0.3L, Lipase 81 Height (Feet): 5 Height (Inches): 3.00 Weight (Pounds): 126 General Appearance: lethargic EENT: normal ENT inspection Neck: supple Cardiovascular: tachycardia Respiratory/Chest: decreased breath sounds Abdomen: non tender, soft, hypoactive bowel sounds, distended Extremities: non-tender Ovi Brown MD Sep 19, 2018 08:41
--- NOTE | 2018-09-19 08:50 | NUR ---
RESPIRATORY NOTE: placed pt on CPAP PS 8 at 0820. no resp distress at this time. pt doing well. RSBI 70-75. RN notified.
[2018-09-19] MEDS: Docusate 100mg cap ORAL SCH ×2 (09:29→21:00)
[2018-09-19] MEDS: Ascorbic Acid 500mg tab ORAL SCH ×2 (09:29→17:05)
[2018-09-19] MEDS: Pantoprazole Inj IV SCH (09:29)
[2018-09-19] MEDS: Heparin 5000 units/ml inj SUBQ SCH ×2 (09:31→21:24)
--- NOTE | 2018-09-19 09:39 | NUR ---
RD ASSESSMENT & RECOMMENDATIONS SEE CARE ACTIVITY FOR COMPLETE ASSESSMENT DAILY ESTIMATED NEEDS: Needs based on Critical care, sepsis, wound, DM 53.6kg 25-32 kcals/kg 0714-6825 total kcals 1.25-2 g protein/kg 67-107 g total protein 25-32ml/kcal mL/kg 0880-6477 total fluid mLs NUTRITION DIAGNOSIS: 1) Swallowing difficulty R/T dysphagia, CVA as evidenced by PEG dependent, now orally intubated. 2) Increased kcal and pro needs r/t sepsis and wound healing as evidenced by elev BG and POC (200-400's-> 162 148 improved), elev WBC (15.7 -> now wnl), febrile, elev Na (148-> wnl), sacral wound/ unstageable per MD. CURRENT TF:Glucerna 1.2 @60 hrs x 24 hrs ENTERAL NUTRITION RECOMMENDATIONS: Glucerna 1.2 @55ml/hr x24 hrs + Prosource x1 daily to provide 1320ml, 1584 kcal, 79g + 11g pro, 1063ml free H2O - Maintain Glucerna 1.2 -> Rec to REDUCE RATE to goal of 55ml/hr - Add Prosource x1 daily to better meet est pro needs - HOB over 30 degrees - Flush per MD-> 150q6 for added 600ml free fluid per day (1063ml from TF + 600ml flushes= 1663ml free fluid per day). ADDITIONAL RECOMMENDATIONS: 1) Monitor hydration status -> now improved 2) Obtain an accurate calibrated bed scale wt 3) Lytes daily on TF/ replete as needed (low K + phos) 4) Monitor BGs closely-> improved at this time 5) Sacral wound: add AYDEE BID via PEG daily : continue Vit C 250mg BID daily via GT
[2018-09-19] MEDS ORDERED: Potassium Phosphate 30 MM in NS 275 ML IV ONE (10:00)
--- NOTE | 2018-09-19 10:15 | NUR ---
NURSE NOTES: Dr. Vernon updated of patient urine status, aware of order placed of 30MM of potassium Phosphate IVPB, no further orders given at this time.
--- NOTE | 2018-09-19 10:22 | Nephrology Progress Note ---
Assessment/Plan Problem List: (1) KEL (acute kidney injury) (2) Respiratory failure (3) Dehydration (4) Electrolyte imbalance (5) G tube feedings (6) Hypokalemia (7) CVA, old, hemiparesis (8) DM (diabetes mellitus) Plan antibiotics Pulm support correct lytes BS and BP check and monitor per consultants Subjective ROS Limited/Unobtainable: Yes Objective Objective Last 24 Hour Vital Signs Date Time Temp Pulse Resp B/P (MAP) Pulse Ox O2 Delivery O2 Flow Rate FiO2 09/19/18 09:00 86 26 117/49 (71) 93 09/19/18 08:30 82 25 30 30 09/19/18 08:26 94 09/19/18 08:00 30 09/19/18 08:00 99.6 89 17 110/50 (70) 95 09/19/18 07:25 85 14 97 Mechanical Ventilator 30 09/19/18 07:19 79 18 97 Mechanical Ventilator 30 09/19/18 07:19 82 19 30 09/19/18 07:00 90 23 96/50 (65) 96 09/19/18 06:00 71 14 111/51 (71) 97 09/19/18 05:24 79 15 30 30 09/19/18 05:00 79 14 105/48 (67) 100 09/19/18 04:00 Mechanical Ventilator 09/19/18 04:00 99.1 68 14 106/50 (68) 98 09/19/18 04:00 30 09/19/18 03:04 76 09/19/18 03:00 76 14 95/48 (64) 97 09/19/18 02:34 75 14 30 30 09/19/18 02:00 76 14 104/46 (65) 95 09/19/18 01:16 78 14 99 Mechanical Ventilator 30 09/19/18 01:10 73 14 94 Mechanical Ventilator 30 09/19/18 01:09 73 14 30 30 09/19/18 01:00 75 14 89/43 (58) 94 09/19/18 00:00 99.8 76 14 112/50 (70) 96 09/19/18 00:00 30 09/19/18 00:00 Mechanical Ventilator 09/18/18 23:04 84 09/18/18 23:00 83 14 106/50 (68) 96 09/18/18 22:49 85 14 30 30 09/18/18 22:00 77 14 108/47 (67) 96 09/18/18 21:00 81 16 114/46 (68) 97 09/18/18 20:44 81 14 30 30 09/18/18 20:00 99.2 78 14 112/47 (68) 98 09/18/18 20:00 Mechanical Ventilator 09/18/18 20:00 30 09/18/18 19:34 76 09/18/18 19:08 79 14 99 Mechanical Ventilator 30 09/18/18 19:00 75 14 124/49 (74) 100 09/18/18 18:58 71 14 96 Mechanical Ventilator 30 09/18/18 18:56 71 14 30 30 09/18/18 18:00 73 14 113/47 (69) 98 09/18/18 17:36 82 14 30 09/18/18 17:00 98.9 75 14 105/47 (66) 98 09/18/18 16:00 79 14 124/55 (78) 99 09/18/18 16:00 Mechanical Ventilator 09/18/18 16:00 30 09/18/18 15:45 77 09/18/18 15:14 73 14 30 09/18/18 15:00 79 14 135/70 (91) 99 09/18/18 14:00 73 14 115/52 (73) 99 09/18/18 13:42 72 14 100 Mechanical Ventilator 30 09/18/18 13:24 71 14 100 Mechanical Ventilator 30 09/18/18 13:23 71 14 30 09/18/18 13:00 72 16 130/53 (78) 100 09/18/18 12:00 99.2 67 14 132/47 (75) 100 09/18/18 12:00 Mechanical Ventilator 09/18/18 12:00 75 09/18/18 11:48 70 16 30 09/18/18 11:38 30 09/18/18 11:00 70 23 128/52 (77) 99 09/18/18 10:30 74 25 30 30 Intake and Output 09/18/18 09/19/18 19:00 07:00 Intake Total 1173.000 ml 1145 ml Output Total 1330 ml 895 ml Balance -157.000 ml 250 ml Intake Free Water 300 ml 500 ml IV Total 663.000 ml 185 ml Tube Feeding 210 ml 420 ml Other 40 ml Output Urine Total 1330 ml 895 ml # Bowel Movements 4 2 Laboratory Tests 09/19/18 04:15: White Blood Count 7.2, Red Blood Count 3.47L, Hemoglobin 10.7L, Hematocrit 33.0L , Mean Corpuscular Volume 95, Mean Corpuscular Hemoglobin 30.8, Mean Corpuscular Hemoglobin Concent 32.4, Red Cell Distribution Width 13.5, Platelet Count 200, Mean Platelet Volume 9.0, Neutrophils (%) (Auto) 83.4H, Lymphocytes ( %) (Auto) 9.0L, Monocytes (%) (Auto) 5.5, Eosinophils (%) (Auto) 1.4, Basophils (%) (Auto) 0.6, Sodium Level 141, Potassium Level 3.2L, Chloride Level 107, Carbon Dioxide Level 26, Anion Gap 8, Blood Urea Nitrogen 7, Creatinine 0.6, Estimat Glomerular Filtration Rate , Glucose Level 162H, Calcium Level 8.3L, Total Bilirubin 0.3, Aspartate Amino Transf (AST/SGOT) 20, Alanine Aminotransferase (ALT/SGPT) 13, Alkaline Phosphatase 96, Total Protein 5.7L, Albumin 1.3L, Globulin 4.4, Albumin/Globulin Ratio 0.3L, Lipase 81 Height (Feet): 5 Height (Inches): 3.00 Weight (Pounds): 126 General Appearance: no apparent distress EENT: other - vented Neck: limited range of motion Cardiovascular: normal rate Respiratory/Chest: decreased breath sounds Abdomen: distended Dwayne Vernon MD Sep 19, 2018 10:22
--- NOTE | 2018-09-19 11:50 | NUR ---
NURSE NOTES: Dr. Swift at the bedside assessing patient and reviewed weaning parameters, ordered to have patient tube feeding placed on hold and attempt a cuff leak test, if patient passes cuff leak test, extubate patient. patient remains on CPAP with PS 8. remains tolerating with no distress noted. RT made aware of tailor men's ready to wear orders,
[2018-09-19] MEDS: Vancomycin 750mg/NS 275ml IVPB SCH ×2 (12:28)
--- NOTE | 2018-09-19 12:50 | NUR ---
NURSE NOTES: Dr. Helm updated on patient respiratory with CPAP with PS 8, patient remains unable to track staff around the room or when instructed to follow fingers, Made aware of orders placed by Jamison Carranza.
--- NOTE | 2018-09-19 13:50 | NUR ---
NURSE NOTES: Dr. Solis at the bedside and assessed patient, no verbal orders given at this time.
--- NOTE | 2018-09-19 14:02 | Infectious Diseases Prog Note ---
Assessment/Plan Assessment/Plan ASSESSMENT AND PLAN: 1. sepsis, klebsiella pneumonia, aspiration risk, leukocytosis, fevers, sirs, ua le neg, mrsa colonization - zosyn and vancomycin, discontinue amikacin - f/u on labs and chest x-ray - weaning per pulmonary medicine - blood cultures negative - monitor clinically, icu supportive care, vent - d/w RN at length - clinically better 2. ICU care. 3. Skin care protocol. 4. History of CVA and TIA, and aspiration risk. 5. Dementia. 6. Hypertension. 7. Blood pressure treatment per primary. 8. Acute kidney injury. 9. Weakness. 10. Hemiplegia. 11. Dysphagia, G-tube. 12. Encephalopathy. 13. No known drug allergies. 14. Social history is negative. 15. Family history is noncontributory. 16. MAR was noted. 17. Case discussed with RN. 18. Continue treatment per primary consultants. 19. Notes and records were noted. Orders were entered. 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, vre colonization Subjective Constitutional: Reports: fever - less, fatigue, other - on vent HEENT: Reports: congestion Respiratory: Reports: shortness of breath Cardiovascular: Reports: other - no pressors Gastrointestinal/Abdominal: Denies: nausea, vomiting, diarrhea Genitourinary: Reports: other - + taylor - urine clear Neurologic: Reports: other - more alert Psychiatric: Reports: other - NA Skin: Denies: rash Hematologic: Denies: bleeding Musculoskeletal: Denies: pain Allergies: Coded Allergies: No Known Allergies (Unverified , 02/04/17) Objective Vital Signs Last 24 Hour Vital Signs Date Time Temp Pulse Resp B/P (MAP) Pulse Ox O2 Delivery O2 Flow Rate FiO2 09/19/18 13:44 81 30 100 Mechanical Ventilator 30 09/19/18 13:38 81 29 30 09/19/18 12:00 82 28 119/57 (77) 97 09/19/18 12:00 30 09/19/18 11:00 81 27 118/52 (74) 98 09/19/18 10:52 83 27 30 09/19/18 10:00 76 25 110/51 (70) 96 09/19/18 09:00 86 26 117/49 (71) 93 09/19/18 08:30 82 25 30 30 09/19/18 08:26 94 09/19/18 08:00 30 8/7/19 08:00 Mechanical Ventilator 09/19/18 08:00 99.6 89 17 110/50 (70) 95 09/19/18 08:00 82 09/19/18 07:25 85 14 97 Mechanical Ventilator 30 09/19/18 07:19 79 18 97 Mechanical Ventilator 30 09/19/18 07:19 82 19 30 09/19/18 07:00 90 23 96/50 (65) 96 09/19/18 06:00 71 14 111/51 (71) 97 09/19/18 05:24 79 15 30 30 09/19/18 05:00 79 14 105/48 (67) 100 09/19/18 04:00 Mechanical Ventilator 09/19/18 04:00 99.1 68 14 106/50 (68) 98 09/19/18 04:00 30 09/19/18 03:04 76 09/19/18 03:00 76 14 95/48 (64) 97 09/19/18 02:34 75 14 30 30 09/19/18 02:00 76 14 104/46 (65) 95 09/19/18 01:16 78 14 99 Mechanical Ventilator 30 09/19/18 01:10 73 14 94 Mechanical Ventilator 30 09/19/18 01:09 73 14 30 30 09/19/18 01:00 75 14 89/43 (58) 94 09/19/18 00:00 99.8 76 14 112/50 (70) 96 09/19/18 00:00 30 09/19/18 00:00 Mechanical Ventilator 09/18/18 23:04 84 09/18/18 23:00 83 14 106/50 (68) 96 09/18/18 22:49 85 14 30 30 09/18/18 22:00 77 14 108/47 (67) 96 09/18/18 21:00 81 16 114/46 (68) 97 09/18/18 20:44 81 14 30 30 09/18/18 20:00 99.2 78 14 112/47 (68) 98 09/18/18 20:00 Mechanical Ventilator 09/18/18 20:00 30 09/18/18 19:34 76 09/18/18 19:08 79 14 99 Mechanical Ventilator 30 09/18/18 19:00 75 14 124/49 (74) 100 09/18/18 18:58 71 14 96 Mechanical Ventilator 30 09/18/18 18:56 71 14 30 30 09/18/18 18:00 73 14 113/47 (69) 98 09/18/18 17:36 82 14 30 09/18/18 17:00 98.9 75 14 105/47 (66) 98 09/18/18 16:00 79 14 124/55 (78) 99 09/18/18 16:00 Mechanical Ventilator 09/18/18 16:00 30 09/18/18 15:45 77 09/18/18 15:14 73 14 30 09/18/18 15:00 79 14 135/70 (91) 99 09/18/18 14:00 73 14 115/52 (73) 99 Height (Feet): 5 Height (Inches): 3.00 Weight (Pounds): 126 General Appearance: other - on vent, no pressors HEENT: normocephalic, atraumatic, anicteric, no JVD, other - oral - intubated Respiratory/Chest: crackles/rales, rhonchi - bilaterally Cardiovascular: normal rate, regular rhythm, no gallop/murmur, no JVD Abdomen: normal bowel sounds, soft, non tender, no organomegaly, non distended Genitourinary: other - + taylor - urine clear Extremities: no cyanosis Skin: no rash Neurologic/Psychiatric: education liaison 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 Mild interstitial prominence. Pleural space: Small right pleural effusion, slightly worse. Improved small left pleural effusion. No pneumothorax. Heart: Unremarkable. No cardiomegaly. Mediastinum: Unremarkable. Bones/joints: Unremarkable. Tubes, lines and devices: Stable endotracheal tube. 09/18/18 - Chest x-ray - IMPRESSION: 1. Stable endotracheal tube. 2. Bibasilar lung atelectasis/airspace disease. Mild interstitial prominence. 3. Small right pleural effusion, slightly worse. Improved small left pleural effusion. Comparison: 09/15/2018 A single view chest radiograph was obtained. Findings: Endotracheal tube remains in good position. Pulmonary vascular congestion is present. Basilar atelectasis noted. Small bilateral pleural effusions are not excluded. IMPRESSION: Pulmonary vascular congestion Microbiology Date/Time Source Procedure Growth Status 09/14/18 08:30 Blood Blood Culture - Preliminary NO GROWTH AFTER 4 DAYS Resulted 09/17/18 13:10 Sputum Induced Gram Stain - Final Resulted 09/17/18 13:10 Sputum Culture - Preliminary Klebsiella Ornithinolytica Resulted 09/16/18 16:15 Stool Clostridium difficile Toxin Assay - Final Complete 09/14/18 09:00 Rectum VRE Culture - Final Enterococcus Faecium - Vre Complete Microbiology Date/Time Source Procedure Growth Status 09/17/18 13:10 Sputum Induced Gram Stain - Final Resulted 09/17/18 13:10 Sputum Culture - Preliminary Klebsiella Ornithinolytica Resulted 09/16/18 16:15 Stool Clostridium difficile Toxin Assay - Final Complete Laboratory Tests Test 09/19/18 04:15 White Blood Count 7.2 K/UL (4.8-10.8) Red Blood Count 3.47 M/UL (4.20-5.40) L Hemoglobin 10.7 G/DL (12.0-16.0) L Hematocrit 33.0 % (37.0-47.0) L Mean Corpuscular Volume 95 FL (80-99) Mean Corpuscular Hemoglobin 30.8 PG (27.0-31.0) Mean Corpuscular Hemoglobin Concent 32.4 G/DL (32.0-36.0) Red Cell Distribution Width 13.5 % (11.6-14.8) Platelet Count 200 K/UL (150-450) Mean Platelet Volume 9.0 FL (6.5-10.1) Neutrophils (%) (Auto) 83.4 % (45.0-75.0) H Lymphocytes (%) (Auto) 9.0 % (20.0-45.0) L Monocytes (%) (Auto) 5.5 % (1.0-10.0) Eosinophils (%) (Auto) 1.4 % (0.0-3.0) Basophils (%) (Auto) 0.6 % (0.0-2.0) Sodium Level 141 MMOL/L (136-145) Potassium Level 3.2 MMOL/L (3.5-5.1) L Chloride Level 107 MMOL/L (98-107) Carbon Dioxide Level 26 MMOL/L (21-32) Anion Gap 8 mmol/L (5-15) Blood Urea Nitrogen 7 mg/dL (7-18) Creatinine 0.6 MG/DL (0.55-1.30) Estimat Glomerular Filtration Rate mL/min (>60) Glucose Level 162 MG/DL (74-106) H Calcium Level 8.3 MG/DL (8.5-10.1) L Total Bilirubin 0.3 MG/DL (0.2-1.0) Aspartate Amino Transf (AST/SGOT) 20 U/L (15-37) Alanine Aminotransferase (ALT/SGPT) 13 U/L (12-78) Alkaline Phosphatase 96 U/L (46-116) Total Protein 5.7 G/DL (6.4-8.2) L Albumin 1.3 G/DL (3.4-5.0) L Globulin 4.4 g/dL Albumin/Globulin Ratio 0.3 (1.0-2.7) L Lipase 81 U/L (73-393) Current Medications Medications (Trade) Dose Ordered Sig/Wayne Route PRN Reason Start Time Stop Time Status Last Admin Dose Admin Acetaminophen (Tylenol) 650 mg Q4H PRN ORAL FEVER 09/14/18 12:45 10/14/18 12:44 09/17/18 00:12 Albuterol/ Ipratropium (Albuterol/ Ipratropium) 3 ml Q6HRT HHN 09/14/18 19:00 09/19/18 18:59 09/19/18 13:45 Amikacin Protocol (Amikacin pharmacy to dose) 1 ea DAILY PRN MISC Per rx protocol 09/15/18 17:15 10/15/18 17:14 Amikacin Sulfate 750 mg/Sodium Chloride 113 ml @ 113 mls/hr Q24H IV 09/16/18 18:00 09/23/18 17:59 09/18/18 17:49 Artificial Tears (Akwa-Tears) 1 drop Q4H PRN BOTH EYES Dry Eyes 09/18/18 12:30 10/18/18 12:29 Ascorbic Acid (Vitamin C) 250 mg TWICE A DAY ORAL 09/18/18 18:00 10/18/18 17:59 09/19/18 09:29 Bisacodyl (Dulcolax) 10 mg DAILYPRN PRN RECTAL Constipation 09/14/18 12:45 10/14/18 12:44 Chlorhexidine Gluconate (Kamla-Hex 2%) 1 applic DAILY@2000 TOPIC 09/17/18 20:00 10/17/18 19:59 09/18/18 19:50 Dextrose (Dextrose 50%) 25 ml Q30M PRN IV Hypoglycemia 09/14/18 12:45 10/14/18 12:44 Dextrose (Dextrose 50%) 50 ml Q30M PRN IV Hypoglycemia 09/14/18 12:45 10/14/18 12:44 Diphenhydramine HCl (Benadryl) 25 mg Q6H PRN ORAL Itching/Pruritis 09/14/18 12:45 10/14/18 12:44 Docusate Sodium (Colace) 100 mg EVERY 12 HOURS ORAL 09/14/18 21:00 10/14/18 20:59 09/19/18 09:29 Heparin Sodium (Porcine) (Heparin 5000 units/ml) 5,000 units EVERY 12 HOURS SUBQ 09/14/18 21:00 10/14/18 20:59 09/19/18 09:31 Insulin Aspart (NovoLOG) Q6HR SUBQ 09/14/18 16:00 10/14/18 15:59 09/19/18 12:45 Insulin Detemir (Levemir) 12 units BEDTIME SUBQ 09/17/18 21:00 10/17/18 20:59 09/18/18 20:34 Iron Sucrose 100 mg/Sodium Chloride 60 ml @ 240 mls/hr QHS IV 09/18/18 21:00 09/22/18 21:14 09/18/18 21:06 Lorazepam (Ativan 2mg/ml 1ml) 0.5 mg Q4H PRN IV For Anxiety 09/14/18 12:45 09/21/18 12:44 Magnesium Hydroxide (Mom) 30 ml HSPRN PRN ORAL Constipation 09/14/18 12:45 10/14/18 12:44 Metoclopramide HCl (Reglan) 10 mg Q8H PRN IVP Nausea & Vomiting 09/17/18 12:30 10/17/18 12:29 Ondansetron HCl (Zofran) 4 mg Q6H PRN IVP Nausea & Vomiting 09/14/18 12:45 10/14/18 12:44 09/17/18 07:41 Pantoprazole (Protonix) 40 mg DAILY IV 09/15/18 09:00 10/15/18 08:59 09/19/18 09:29 Piperacillin Sod/ Tazobactam Sod 3.375 gm/Dextrose 100 ml @ 25 mls/hr EVERY 8 HOURS IVPB 09/17/18 14:00 09/22/18 13:59 09/19/18 05:43 Potassium Phosphate 30 mm/ Sodium Chloride 285 ml @ 47.5 mls/hr ONCE ONCE IV 09/19/18 10:00 09/19/18 15:59 09/19/18 12:27 Vancomycin HCl (Vanco rx to dose) 1 ea DAILY PRN MISC Per rx protocol 09/14/18 12:45 10/14/18 12:44 Vancomycin HCl 750 mg/Sodium Chloride 275 ml @ 183.333 mls/hr Q24H IVPB 09/17/18 12:00 09/22/18 11:59 09/19/18 12:28 Milton Valladares MD Sep 19, 2018 14:02
--- NOTE | 2018-09-19 14:26 | General Progress Note ---
Assessment/Plan Status: unchanged Assessment/Plan: 77 y/o F with acute hypoxemic respiratory failure and sepsis admitted to ICU # Acute hypoxemic respiratory failure - suspect very low prognosis given neurologic status - Intubated in the ER and ICU management by electrical power station technician appreciated. - Serial ABG and CXR as needed. - Supportive care - HHN as needed # Encephalopathy multifactorial including hypoxic and metabolic - ct head: progress of stroke - neurology consult - EEG # Thrombocytopenia multifactorial - heme consult, appreciate reqs - ctm # Acute kidney injury due to dehydration- resolved - US renal without obstruction or hydronephrosis reviewed. - Nephrology follow up appreciated. 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 - R gaze preference noted. 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 # History of dementia - Supportive care - SW to attempt to find family members # DVT and GI ppx # FULL CODE by records. - CM / SW follow up for family is needed. Subjective Date patient seen: Sep 19, 2018 Time patient seen: 12:00 Allergies: Coded Allergies: No Known Allergies (Unverified , 02/04/17) Subjective wbc normalized continues to be intubated Objective Last 24 Hour Vital Signs Date Time Temp Pulse Resp B/P (MAP) Pulse Ox O2 Delivery O2 Flow Rate FiO2 09/19/18 13:56 84 31 98 Mechanical Ventilator 30 09/19/18 13:44 81 30 100 Mechanical Ventilator 30 09/19/18 13:38 81 29 30 09/19/18 12:00 82 28 119/57 (77) 97 09/19/18 12:00 30 09/19/18 11:00 81 27 118/52 (74) 98 09/19/18 10:52 83 27 30 09/19/18 10:00 76 25 110/51 (70) 96 8/7/19 09:00 86 26 117/49 (71) 93 09/19/18 08:30 82 25 30 30 09/19/18 08:26 94 09/19/18 08:00 30 09/19/18 08:00 Mechanical Ventilator 09/19/18 08:00 99.6 89 17 110/50 (70) 95 09/19/18 08:00 82 09/19/18 07:25 85 14 97 Mechanical Ventilator 30 09/19/18 07:19 79 18 97 Mechanical Ventilator 30 09/19/18 07:19 82 19 30 09/19/18 07:00 90 23 96/50 (65) 96 09/19/18 06:00 71 14 111/51 (71) 97 09/19/18 05:24 79 15 30 30 09/19/18 05:00 79 14 105/48 (67) 100 09/19/18 04:00 Mechanical Ventilator 09/19/18 04:00 99.1 68 14 106/50 (68) 98 09/19/18 04:00 30 09/19/18 03:04 76 09/19/18 03:00 76 14 95/48 (64) 97 09/19/18 02:34 75 14 30 30 09/19/18 02:00 76 14 104/46 (65) 95 09/19/18 01:16 78 14 99 Mechanical Ventilator 30 09/19/18 01:10 73 14 94 Mechanical Ventilator 30 09/19/18 01:09 73 14 30 30 09/19/18 01:00 75 14 89/43 (58) 94 09/19/18 00:00 99.8 76 14 112/50 (70) 96 09/19/18 00:00 30 09/19/18 00:00 Mechanical Ventilator 09/18/18 23:04 84 09/18/18 23:00 83 14 106/50 (68) 96 09/18/18 22:49 85 14 30 30 09/18/18 22:00 77 14 108/47 (67) 96 09/18/18 21:00 81 16 114/46 (68) 97 09/18/18 20:44 81 14 30 30 09/18/18 20:00 99.2 78 14 112/47 (68) 98 09/18/18 20:00 Mechanical Ventilator 09/18/18 20:00 30 09/18/18 19:34 76 09/18/18 19:08 79 14 99 Mechanical Ventilator 30 09/18/18 19:00 75 14 124/49 (74) 100 09/18/18 18:58 71 14 96 Mechanical Ventilator 30 09/18/18 18:56 71 14 30 30 09/18/18 18:00 73 14 113/47 (69) 98 09/18/18 17:36 82 14 30 09/18/18 17:00 98.9 75 14 105/47 (66) 98 09/18/18 16:00 79 14 124/55 (78) 99 09/18/18 16:00 Mechanical Ventilator 09/18/18 16:00 30 09/18/18 15:45 77 09/18/18 15:14 73 14 30 09/18/18 15:00 79 14 135/70 (91) 99 Intake and Output 09/18/18 09/19/18 19:00 07:00 Intake Total 1173.000 ml 1145 ml Output Total 1330 ml 895 ml Balance -157.000 ml 250 ml Intake Free Water 300 ml 500 ml IV Total 663.000 ml 185 ml Tube Feeding 210 ml 420 ml Other 40 ml Output Urine Total 1330 ml 895 ml # Bowel Movements 4 2 Laboratory Tests 09/19/18 04:15: White Blood Count 7.2, Red Blood Count 3.47L, Hemoglobin 10.7L, Hematocrit 33.0L , Mean Corpuscular Volume 95, Mean Corpuscular Hemoglobin 30.8, Mean Corpuscular Hemoglobin Concent 32.4, Red Cell Distribution Width 13.5, Platelet Count 200, Mean Platelet Volume 9.0, Neutrophils (%) (Auto) 83.4H, Lymphocytes ( %) (Auto) 9.0L, Monocytes (%) (Auto) 5.5, Eosinophils (%) (Auto) 1.4, Basophils (%) (Auto) 0.6, Sodium Level 141, Potassium Level 3.2L, Chloride Level 107, Carbon Dioxide Level 26, Anion Gap 8, Blood Urea Nitrogen 7, Creatinine 0.6, Estimat Glomerular Filtration Rate , Glucose Level 162H, Calcium Level 8.3L, Total Bilirubin 0.3, Aspartate Amino Transf (AST/SGOT) 20, Alanine Aminotransferase (ALT/SGPT) 13, Alkaline Phosphatase 96, Total Protein 5.7L, Albumin 1.3L, Globulin 4.4, Albumin/Globulin Ratio 0.3L, Lipase 81 Height (Feet): 5 Height (Inches): 3.00 Weight (Pounds): 126 Objective GEN: intubated, eyes open, right side gaze preference HEENT: pupils 8mm and sluggish CV: RRR, no M, R, G, no jvd RESP: CTAB, no w/r/c ABD: normal bowel sounds, soft, non tender EXT: normal muscle tone, no tenderness NEURO: no changes, does not withdraw from pain, blinks to hand toward face, no tracking Desiree Helm DO Sep 19, 2018 14:26
--- NOTE | 2018-09-19 14:30 | NUR ---
NURSE NOTES: Started first bag of potassium 20mEq on left upper arm. ordered to infuse a total of 60mEq potassium chloride by IV order placed by Dr. Smith. PAtient tube feeding placed on hold and remains on weaning protocol with setting of CPAP and PS of 8. patient remains awake and tolerating weaning with RR of 27-29 and saturating are greater than 94%.
[2018-09-19] MEDS: KCl 20mEq 100ml Premix IVPB SCH ×3 (14:49→18:51)
--- NOTE | 2018-09-19 15:12 | NUR ---
RESPIRATORY NOTE: performed cuff leak test on pt while on CPAP PS8 fio2 30%. Pt results on average was 45%. Relayed results to RN. placed pt back on AC mode. will cont to monitor.
--- NOTE | 2018-09-19 15:18 | Pulmonolgy Critical Care Note ---
Critical Care - Asmt/Plan Assessment/Plan: Pulmonary CCM Progress Note Critical Care - Asmt/Plan Problems: (1) Endotracheally intubated (2) Ventilator dependence, tolerating CPAP trials (3) Sepsis, on pressors PRN (4) Pneumonia (5) Electrolyte imbalance (6) Dehydration (7) Altered mental status (8) Hypernatremia (9) Respiratory failure (10) Lactic acid acidosis (11) H/O: CVA (cerebrovascular accident) - more interactive today (12) G tube feedings (13) KEL (acute kidney injury) Respiratory: monitor respiratory rate, adjust FIO2, ABG, other - HHN's, pulmonary hygiene wean an tolerated, consider extubation if passes cuff leak Cardiac: continue to monitor HR/BP Renal: keep negative Infectious Disease: check cultures, continue antibiotics per ID Gastrointestinal: enteral feeding Endocrine: monitor blood sugar, continue sliding scale insulin Hematologic: monitor H/H Neurologic: keep patient comfortable - monitor MS, consider neuro eval and EEG Prophylaxis: Protonix, Heparin Disposition: keep in ICU Time Spent (Minutes): 40 Notes Reviewed: lacemaker, renal, ID, other - ERMD Discussed with: nurses, consultants, other - FC Critical Care - Objective Vital Signs Noted Status: sedated - intubated Condition: critical HEENT: atraumatic, normocephalic, other - ETT OGT weak gag Lungs: rhonchi Heart: HR/BP stable Abdomen: soft, non-tender, active bowel sounds, feeding tube Extremities: no C/C/E Micro: Microbiology Date/Time Source Procedure Growth Status 09/14/18 09:00 Rectum Received Critical Care - Subjective ROS Limited/Unobtainable: Yes ICU Day: 4 Intubation Day: 4 Interval Events: 77 F NHR h/o dementia, CVA, GT, HTN, HL a/w AMS and SOB intubated in ER Na 167 Cr 1.7 LA elevated + hemoconcentration No gag in ER + faint gag now + F no C no further hx obtainable Condition: critical IV Access: peripheral - x2 EKG Rhythm: Sinus Rhythm FI02: 60 Vent Support Breath Rate: 14 Vent Support Mode: AC Vent Tidal Volume: 500 Sputum Amount: Small PEEP: 5.0 PIP: 23 Secretions: scant thick Subjective: ARLETTE CXR: L RC inf, small L eff, ETT ET-Tube: 7.0 ET Position: 22 Labs: Laboratory Tests noted Critical Care - Objective Last 24 Hour Vital Signs Date Time Temp Pulse Resp B/P (MAP) Pulse Ox O2 Delivery O2 Flow Rate FiO2 09/19/18 15:13 30 09/19/18 15:04 83 28 30 09/19/18 15:00 83 31 125/53 (77) 100 09/19/18 14:00 100.8 85 29 122/54 (76) 98 09/19/18 13:56 84 31 98 Mechanical Ventilator 30 09/19/18 13:44 81 30 100 Mechanical Ventilator 30 09/19/18 13:38 81 29 30 09/19/18 13:00 81 29 122/51 (74) 97 09/19/18 12:00 80 09/19/18 12:00 Mechanical Ventilator 09/19/18 12:00 82 28 119/57 (77) 97 09/19/18 12:00 30 09/19/18 11:00 81 27 118/52 (74) 98 09/19/18 10:52 83 27 30 09/19/18 10:00 76 25 110/51 (70) 96 09/19/18 09:00 86 26 117/49 (71) 93 09/19/18 08:30 82 25 30 30 09/19/18 08:26 94 09/19/18 08:00 30 09/19/18 08:00 Mechanical Ventilator 09/19/18 08:00 99.6 89 17 110/50 (70) 95 09/19/18 08:00 82 09/19/18 07:25 85 14 97 Mechanical Ventilator 30 09/19/18 07:19 79 18 97 Mechanical Ventilator 30 09/19/18 07:19 82 19 30 09/19/18 07:00 90 23 96/50 (65) 96 09/19/18 06:00 71 14 111/51 (71) 97 09/19/18 05:24 79 15 30 30 09/19/18 05:00 79 14 105/48 (67) 100 09/19/18 04:00 Mechanical Ventilator 09/19/18 04:00 99.1 68 14 106/50 (68) 98 09/19/18 04:00 30 09/19/18 03:04 76 09/19/18 03:00 76 14 95/48 (64) 97 8/7/19 02:34 75 14 30 30 09/19/18 02:00 76 14 104/46 (65) 95 09/19/18 01:16 78 14 99 Mechanical Ventilator 30 09/19/18 01:10 73 14 94 Mechanical Ventilator 30 09/19/18 01:09 73 14 30 30 09/19/18 01:00 75 14 89/43 (58) 94 09/19/18 00:00 99.8 76 14 112/50 (70) 96 09/19/18 00:00 30 09/19/18 00:00 Mechanical Ventilator 09/18/18 23:04 84 09/18/18 23:00 83 14 106/50 (68) 96 09/18/18 22:49 85 14 30 30 09/18/18 22:00 77 14 108/47 (67) 96 09/18/18 21:00 81 16 114/46 (68) 97 09/18/18 20:44 81 14 30 30 09/18/18 20:00 99.2 78 14 112/47 (68) 98 09/18/18 20:00 Mechanical Ventilator 09/18/18 20:00 30 09/18/18 19:34 76 09/18/18 19:08 79 14 99 Mechanical Ventilator 30 09/18/18 19:00 75 14 124/49 (74) 100 09/18/18 18:58 71 14 96 Mechanical Ventilator 30 09/18/18 18:56 71 14 30 30 09/18/18 18:00 73 14 113/47 (69) 98 09/18/18 17:36 82 14 30 09/18/18 17:00 98.9 75 14 105/47 (66) 98 09/18/18 16:00 79 14 124/55 (78) 99 09/18/18 16:00 Mechanical Ventilator 09/18/18 16:00 30 09/18/18 15:45 77 Micro: Microbiology Date/Time Source Procedure Growth Status 09/17/18 13:10 Sputum Induced Gram Stain - Final Resulted 09/17/18 13:10 Sputum Culture - Preliminary Klebsiella Ornithinolytica Resulted 09/16/18 16:15 Stool Clostridium difficile Toxin Assay - Final Complete Accucheck: 199 Critical Care - Subjective Condition: improving FI02: 30 Vent Support Breath Rate: 14 Vent Support Mode: AC Vent Tidal Volume: 500 Sputum Amount: Scant PEEP: 5.0 PIP: 13 Tube Feeding Amount: 0 I&O: Intake and Output 09/18/18 09/19/18 19:00 07:00 Intake Total 1173.000 ml 1145 ml Output Total 1330 ml 895 ml Balance -157.000 ml 250 ml Intake Free Water 300 ml 500 ml IV Total 663.000 ml 185 ml Tube Feeding 210 ml 420 ml Other 40 ml Output Urine Total 1330 ml 895 ml # Bowel Movements 4 2 ET-Tube: 7.0 ET Position: 22 Marcelo Swift MD Sep 19, 2018 15:18
--- NOTE | 2018-09-19 15:30 | NUR ---
NURSE NOTES: Dr. Swift made aware of patient cuff leak test at 45%, patient remains able to open eyes and breath with average tv of 341ml, RR noted to be around 30-33 with HR at 100-112 in sinus rhythm, patient returned to AC: 14, TV: 500, FIO2: 30% with Peep of 5 and remains saturating around 95-99%. tube feeding started at 50ml/hr through NG-tube,
[2018-09-19] MEDS ORDERED: Tubing IV Secondary IV ONE (16:31)
--- NOTE | 2018-09-19 16:45 | NUR ---
NURSE NOTES: Nabil , EEG techinician, called to inform he will come in the evening to complete EEG exam. patient remains with temperature of 99.1 F
--- NOTE | 2018-09-19 17:05 | NUR ---
NURSE NOTES: Patient oral care provided and repositioned in bed, remains calm with RR or 14-19 on AC 14, TV: 500, FIO2: 30% with peep of 5 with saturations at 100%, patient is resting with no distress noted, tube feeding remains running at 50ML/hr with patient temperature at 99.1F axillary. will attempt to wean in AM.
--- NOTE | 2018-09-19 18:06 | Hematology/Onc Progress Note ---
Assessment/Plan Assessment/Plan Assessment and Recs: # Thrombocytopenia - potential causes multifactorial, evaluate liver and viral etiologies to begin, also could be related to underlying medications patient has received. --> Hep panel and HIV show neg results --> US abd shows no cirrhosis or hsm --> Peripheral smear ordered to evaluate for blasts /schistocytes --> abx and other meds have been reviewed --> ok for ppx if plt >50k w/ either heparin or lovenox --> Transfuse if Plt < 20k and fever, or if Plt < 10k without fever --> trend plts --> 182k-->160-->140-->119-->140k-->200k --> meds reviewed and may be 2/2 vanc and amikacin but at this time ok to continue since borderline # Anemia of chronic disease (or of iron deficiency) due to underlying chronic medical issues, multifactorial --> Anemia workup has been ordered, rule out gi bleed --> No evidence of hemolysis is noted, peripheral smear has been reviewed. --> Hgb goal >7. Transfuse prn. --> Iron to continue --> Medications have been reviewed --> hgb 12-->10.7 # Dysphagia and now s/p nG tube feedings --> as per gi, ng tube feedsings # Respo failure on vent --> per pulm/cc # Dehydration --> on ivfs, currently off per renal # Sepsis --> abx per id # DVT ppx with heparin sq The timing of this note does not necessarily reflect the time of the patient was seen. GREATLY APPRECIATE CONSULTATION. Subjective HEENT: Denies: no symptoms, eye pain, blurred vision, tearing, double vision, ear pain, ear discharge, nose pain, nose congestion, throat pain, throat swelling, mouth pain, mouth swelling, other Respiratory: Denies: no symptoms, cough, shortness of breath, SOB with excertion, SOB at rest, sputum, wheezing, other Gastrointestinal/Abdominal: Denies: no symptoms, abdomen distended, abdominal pain, black stools, tarry stools, blood in stool, constipated, diarrhea, difficulty swallowing, nausea, poor appetite, poor fluid intake, rectal bleeding , vomiting, other Neurologic/Psychiatric: Denies: no symptoms, anxiety, depressed, emotional problems, headache, numbness, paresthesia, pre-existing deficit, seizure, tingling, tremors, weakness, other Endocrine: Denies: no symptoms, excessive sweating, flushing, intolerance to cold, intolerance to heat, increased hunger, increased thirst, increased urine, unexplained weight gain, unexplained weight loss, other Allergies: Coded Allergies: No Known Allergies (Unverified , 02/04/17) Subjective 09/18: is on iron, as well as broad spectrum abx, labs reviewed 09/19: no events to report, angie Robertson rn, tfs ongoing via ng, on vent to wean protocol Objective Objective Current Medications Medications (Trade) Dose Ordered Sig/Wayne Route PRN Reason Start Time Stop Time Status Last Admin Dose Admin Acetaminophen (Tylenol) 650 mg Q4H PRN ORAL FEVER 09/14/18 12:45 10/14/18 12:44 09/19/18 14:50 Albuterol/ Ipratropium (Albuterol/ Ipratropium) 3 ml Q6HRT HHN 09/14/18 19:00 09/19/18 18:59 09/19/18 13:45 Artificial Tears (Akwa-Tears) 1 drop Q4H PRN BOTH EYES Dry Eyes 09/18/18 12:30 10/18/18 12:29 Ascorbic Acid (Vitamin C) 250 mg TWICE A DAY ORAL 09/18/18 18:00 10/18/18 17:59 09/19/18 09:29 Bisacodyl (Dulcolax) 10 mg DAILYPRN PRN RECTAL Constipation 09/14/18 12:45 10/14/18 12:44 Chlorhexidine Gluconate (Kamla-Hex 2%) 1 applic DAILY@1999 TOPIC 09/17/18 20:00 10/17/18 19:59 09/18/18 19:50 Dextrose (Dextrose 50%) 25 ml Q30M PRN IV Hypoglycemia 09/14/18 12:45 10/14/18 12:44 Dextrose (Dextrose 50%) 50 ml Q30M PRN IV Hypoglycemia 09/14/18 12:45 10/14/18 12:44 Diphenhydramine HCl (Benadryl) 25 mg Q6H PRN ORAL Itching/Pruritis 09/14/18 12:45 10/14/18 12:44 Docusate Sodium (Colace) 100 mg EVERY 12 HOURS ORAL 09/14/18 21:00 10/14/18 20:59 09/19/18 09:29 Heparin Sodium (Porcine) (Heparin 5000 units/ml) 5,000 units EVERY 12 HOURS SUBQ 09/14/18 21:00 10/14/18 20:59 09/19/18 09:31 Insulin Aspart (NovoLOG) Q6HR SUBQ 09/14/18 16:00 10/14/18 15:59 09/19/18 12:45 Insulin Detemir (Levemir) 12 units BEDTIME SUBQ 09/17/18 21:00 10/17/18 20:59 09/18/18 20:34 Iron Sucrose 100 mg/Sodium Chloride 60 ml @ 240 mls/hr QHS IV 09/18/18 21:00 09/22/18 21:14 09/18/18 21:06 Lorazepam (Ativan 2mg/ml 1ml) 0.5 mg Q4H PRN IV For Anxiety 09/14/18 12:45 09/21/18 12:44 Magnesium Hydroxide (Mom) 30 ml HSPRN PRN ORAL Constipation 09/14/18 12:45 10/14/18 12:44 Metoclopramide HCl (Reglan) 10 mg Q8H PRN IVP Nausea & Vomiting 09/17/18 12:30 10/17/18 12:29 Ondansetron HCl (Zofran) 4 mg Q6H PRN IVP Nausea & Vomiting 09/14/18 12:45 10/14/18 12:44 09/17/18 07:41 Pantoprazole (Protonix) 40 mg DAILY IV 09/15/18 09:00 10/15/18 08:59 09/19/18 09:29 Piperacillin Sod/ Tazobactam Sod 3.375 gm/Dextrose 100 ml @ 25 mls/hr EVERY 8 HOURS IVPB 09/17/18 14:00 09/22/18 13:59 09/19/18 14:32 Potassium Chloride 100 ml @ 50 mls/hr Q2H IVPB 09/19/18 14:30 09/19/18 20:29 09/19/18 17:09 Vancomycin HCl (Vanco rx to dose) 1 ea DAILY PRN MISC Per rx protocol 09/14/18 12:45 10/14/18 12:44 Vancomycin HCl 750 mg/Sodium Chloride 275 ml @ 183.333 mls/hr Q24H IVPB 09/17/18 12:00 09/22/18 11:59 09/19/18 12:28 Last 24 Hour Vital Signs Date Time Temp Pulse Resp B/P (MAP) Pulse Ox O2 Delivery O2 Flow Rate FiO2 09/19/18 17:36 62 14 30 09/19/18 17:00 99.1 65 14 119/49 (72) 100 09/19/18 16:00 Mechanical Ventilator 09/19/18 16:00 99.9 73 14 97/43 (61) 96 09/19/18 16:00 30 09/19/18 16:00 78 09/19/18 15:40 99.9 09/19/18 15:13 30 09/19/18 15:04 83 28 30 09/19/18 15:00 83 31 125/53 (77) 100 09/19/18 14:00 100.8 85 29 122/54 (76) 98 09/19/18 13:56 84 31 98 Mechanical Ventilator 30 09/19/18 13:44 81 30 100 Mechanical Ventilator 30 09/19/18 13:38 81 29 30 09/19/18 13:00 30 09/19/18 13:00 81 29 122/51 (74) 97 09/19/18 12:00 80 09/19/18 12:00 Mechanical Ventilator 09/19/18 12:00 99.9 82 28 119/57 (77) 97 09/19/18 12:00 30 09/19/18 11:00 81 27 118/52 (74) 98 09/19/18 10:52 83 27 30 09/19/18 10:00 76 25 110/51 (70) 96 09/19/18 09:00 86 26 117/49 (71) 93 09/19/18 08:30 82 25 30 30 09/19/18 08:26 94 09/19/18 08:20 30 09/19/18 08:00 30 09/19/18 08:00 Mechanical Ventilator 09/19/18 08:00 99.6 89 17 110/50 (70) 95 09/19/18 08:00 82 09/19/18 07:25 85 14 97 Mechanical Ventilator 30 09/19/18 07:19 79 18 97 Mechanical Ventilator 30 09/19/18 07:19 82 19 30 09/19/18 07:00 90 23 96/50 (65) 96 09/19/18 06:00 71 14 111/51 (71) 97 09/19/18 05:24 79 15 30 30 09/19/18 05:00 79 14 105/48 (67) 100 09/19/18 04:00 Mechanical Ventilator 09/19/18 04:00 99.1 68 14 106/50 (68) 98 09/19/18 04:00 30 09/19/18 03:04 76 09/19/18 03:00 76 14 95/48 (64) 97 09/19/18 02:34 75 14 30 30 09/19/18 02:00 76 14 104/46 (65) 95 09/19/18 01:16 78 14 99 Mechanical Ventilator 30 09/19/18 01:10 73 14 94 Mechanical Ventilator 30 09/19/18 01:09 73 14 30 30 09/19/18 01:00 75 14 89/43 (58) 94 09/19/18 00:00 99.8 76 14 112/50 (70) 96 09/19/18 00:00 30 09/19/18 00:00 Mechanical Ventilator 09/18/18 23:04 84 09/18/18 23:00 83 14 106/50 (68) 96 09/18/18 22:49 85 14 30 30 09/18/18 22:00 77 14 108/47 (67) 96 09/18/18 21:00 81 16 114/46 (68) 97 09/18/18 20:44 81 14 30 30 09/18/18 20:00 99.2 78 14 112/47 (68) 98 09/18/18 20:00 Mechanical Ventilator 09/18/18 20:00 30 09/18/18 19:34 76 09/18/18 19:08 79 14 99 Mechanical Ventilator 30 09/18/18 19:00 75 14 124/49 (74) 100 09/18/18 18:58 71 14 96 Mechanical Ventilator 30 09/18/18 18:56 71 14 30 30 09/18/18 18:00 73 14 113/47 (69) 98 09/18/18 17:36 82 14 30 09/18/18 17:00 98.9 75 14 105/47 (66) 98 09/18/18 16:00 79 14 124/55 (78) 99 09/18/18 16:00 Mechanical Ventilator 09/18/18 16:00 30 09/18/18 15:45 77 09/18/18 15:14 73 14 30 09/18/18 15:00 79 14 135/70 (91) 99 09/18/18 14:00 73 14 115/52 (73) 99 09/18/18 13:42 72 14 100 Mechanical Ventilator 30 09/18/18 13:24 71 14 100 Mechanical Ventilator 30 09/18/18 13:23 71 14 30 09/18/18 13:00 72 16 130/53 (78) 100 09/18/18 12:00 99.2 67 14 132/47 (75) 100 09/18/18 12:00 Mechanical Ventilator 09/18/18 12:00 75 09/18/18 11:48 70 16 30 09/18/18 11:38 30 09/18/18 11:00 70 23 128/52 (77) 99 09/18/18 10:30 74 25 30 30 09/18/18 10:00 71 22 119/50 (73) 98 09/18/18 09:14 30 09/18/18 09:12 97 09/18/18 09:07 71 25 30 09/18/18 09:00 70 15 116/49 (71) 99 09/18/18 08:00 70 14 113/43 (66) 97 09/18/18 08:00 Mechanical Ventilator 09/18/18 08:00 30 09/18/18 07:52 69 09/18/18 07:48 67 14 98 Mechanical Ventilator 30 09/18/18 07:35 64 14 98 Mechanical Ventilator 30 09/18/18 07:33 64 14 30 09/18/18 07:00 66 14 112/54 (73) 96 09/18/18 06:00 99.7 64 14 113/58 (76) 98 09/18/18 05:11 65 14 30 09/18/18 05:00 99.0 68 15 108/48 (68) 97 09/18/18 04:00 64 14 151/60 (90) 98 09/18/18 04:00 Mechanical Ventilator 09/18/18 04:00 30 09/18/18 04:00 78 09/18/18 03:00 66 14 108/44 (65) 98 09/18/18 02:58 68 14 30 09/18/18 02:00 71 14 104/45 (64) 97 09/18/18 01:03 80 19 100 Mechanical Ventilator 30 09/18/18 01:00 70 15 133/42 (72) 97 09/18/18 00:53 66 14 98 Mechanical Ventilator 30 09/18/18 00:53 66 14 30 09/18/18 00:06 66 09/18/18 00:00 Mechanical Ventilator 09/18/18 00:00 68 14 106/44 (64) 98 09/17/18 23:00 99.1 65 16 110/58 (75) 96 09/17/18 22:33 61 14 30 09/17/18 22:00 61 14 103/45 (64) 98 09/17/18 20:54 67 14 30 09/17/18 20:04 71 09/17/18 20:00 30 09/17/18 20:00 66 14 92/44 (60) 98 09/17/18 20:00 Mechanical Ventilator 09/17/18 19:16 72 17 100 Mechanical Ventilator 30 09/17/18 19:06 62 14 99 Mechanical Ventilator 30 09/17/18 19:05 62 14 30 09/17/18 19:00 63 14 91/44 (60) 98 Intake and Output 09/18/18 09/19/18 18:59 06:59 Intake Total 1168.000 ml 1135 ml Output Total 1315 ml 895 ml Balance -147.000 ml 240 ml Intake Free Water 300 ml 500 ml IV Total 688.000 ml 185 ml Tube Feeding 180 ml 410 ml Other 40 ml Output Urine Total 1315 ml 895 ml # Bowel Movements 4 2 Labs Test 09/17/18 04:25 09/17/18 16:13 09/18/18 04:00 09/19/18 04:15 White Blood Count 13.8 K/UL (4.8-10.8) 11.5 K/UL (4.8-10.8) 7.2 K/UL (4.8-10.8) Red Blood Count 3.85 M/UL (4.20-5.40) 3.69 M/UL (4.20-5.40) 3.47 M/UL (4.20-5.40) Hemoglobin 12.0 G/DL (12.0-16.0) 11.4 G/DL (12.0-16.0) 10.7 G/DL (12.0-16.0) Hematocrit 36.2 % (37.0-47.0) 34.6 % (37.0-47.0) 33.0 % (37.0-47.0) Mean Corpuscular Volume 94 FL (80-99) 94 FL (80-99) 95 FL (80-99) Mean Corpuscular Hemoglobin 31.1 PG (27.0-31.0) 30.9 PG (27.0-31.0) 30.8 PG (27.0-31.0) Mean Corpuscular Hemoglobin Concent 33.1 G/DL (32.0-36.0) 32.9 G/DL (32.0-36.0) 32.4 G/DL (32.0-36.0) Red Cell Distribution Width 13.2 % (11.6-14.8) 13.7 % (11.6-14.8) 13.5 % (11.6-14.8) Platelet Count 119 K/UL (150-450) 139 K/UL (150-450) 200 K/UL (150-450) Mean Platelet Volume 11.3 FL (6.5-10.1) 9.6 FL (6.5-10.1) 9.0 FL (6.5-10.1) Neutrophils (%) (Auto) % (45.0-75.0) 84.0 % (45.0-75.0) 83.4 % (45.0-75.0) Lymphocytes (%) (Auto) % (20.0-45.0) 9.9 % (20.0-45.0) 9.0 % (20.0-45.0) Monocytes (%) (Auto) % (1.0-10.0) 4.5 % (1.0-10.0) 5.5 % (1.0-10.0) Eosinophils (%) (Auto) % (0.0-3.0) 1.1 % (0.0-3.0) 1.4 % (0.0-3.0) Basophils (%) (Auto) % (0.0-2.0) 0.5 % (0.0-2.0) 0.6 % (0.0-2.0) Sodium Level 137 MMOL/L (136-145) 141 MMOL/L (136-145) 141 MMOL/L (136-145) Potassium Level 3.0 MMOL/L (3.5-5.1) 3.3 MMOL/L (3.5-5.1) 3.2 MMOL/L (3.5-5.1) Chloride Level 104 MMOL/L (98-107) 107 MMOL/L (98-107) 107 MMOL/L (98-107) Carbon Dioxide Level 24 MMOL/L (21-32) 26 MMOL/L (21-32) 26 MMOL/L (21-32) Anion Gap 9 mmol/L (5-15) 8 mmol/L (5-15) 8 mmol/L (5-15) Blood Urea Nitrogen 13 mg/dL (7-18) 8 mg/dL (7-18) 7 mg/dL (7-18) Creatinine 0.7 MG/DL (0.55-1.30) 0.6 MG/DL (0.55-1.30) 0.6 MG/DL (0.55-1.30) Estimat Glomerular Filtration Rate mL/min (>60) mL/min (>60) mL/min (>60) Glucose Level 269 MG/DL (74-106) 147 MG/DL (74-106) 162 MG/DL (74-106) Calcium Level 8.5 MG/DL (8.5-10.1) 8.6 MG/DL (8.5-10.1) 8.3 MG/DL (8.5-10.1) Total Bilirubin 0.6 MG/DL (0.2-1.0) 0.5 MG/DL (0.2-1.0) 0.3 MG/DL (0.2-1.0) Aspartate Amino Transf (AST/SGOT) 18 U/L (15-37) 19 U/L (15-37) 20 U/L (15-37) Alanine Aminotransferase (ALT/SGPT) < 6 U/L (12-78) 10 U/L (12-78) 13 U/L (12-78) Alkaline Phosphatase 90 U/L (46-116) 92 U/L (46-116) 96 U/L (46-116) Total Protein 6.1 G/DL (6.4-8.2) 6.0 G/DL (6.4-8.2) 5.7 G/DL (6.4-8.2) Albumin 1.4 G/DL (3.4-5.0) 1.4 G/DL (3.4-5.0) 1.3 G/DL (3.4-5.0) Globulin 4.7 g/dL 4.6 g/dL 4.4 g/dL Albumin/Globulin Ratio 0.3 (1.0-2.7) 0.3 (1.0-2.7) 0.3 (1.0-2.7) Hepatitis A IgM Antibody Negative (Negative) Hepatitis B Surface Antigen Negative (Negative) Hepatitis B Core IgM Antibody Negative (Negative) Hepatitis C Antibody <0.1 s/co ratio HIV (1&2) Antibody Rapid Negative (NEGATIVE) Arterial Blood pH 7.467 (7.350-7.450) Arterial Blood Partial Pressure CO2 31.2 mmHg (35.0-45.0) Arterial Blood Partial Pressure O2 73.9 mmHg (75.0-100.0) Arterial Blood HCO3 22.0 mmol/L (22.0-26.0) Arterial Blood Oxygen Saturation 95.4 % (95-100) Arterial Blood Base Excess -0.9 (-2-2) Ray Test Positive Uric Acid 2.9 MG/DL (2.6-7.2) Phosphorus Level 2.3 MG/DL (2.5-4.9) Magnesium Level 1.9 MG/DL (1.8-2.4) Iron Level 21 ug/dL (50-175) Total Iron Binding Capacity 116 ug/dL (250-450) Percent Iron Saturation 18 % (15-50) Unsaturated Iron Binding 95 ug/dL (112-346) Ferritin 338 NG/ML (8-388) Vitamin B12 Level 783 PG/ML (193-986) Folate 23.3 NG/ML (8.6-58.9) Thyroid Stimulating Hormone (TSH) 2.512 uiU/mL (0.358-3.740) Lipase 81 U/L (73-393) Height (Feet): 5 Height (Inches): 3.00 Weight (Pounds): 126 Objective Physical Exam: Vitals: reviewed General Appearance: NAD HEENT: normocephalic, atraumatic ++ogt Chest: normal breath sounds bilaterally ++ vent Cardiovascular: normal peripheral pulses, normal rate Abdomen: normal bowel sounds, soft, nontender ++ gtube Extremities: normal range of motion Mateo Wei MD Sep 19, 2018 18:05
--- NOTE | 2018-09-19 19:10 | NUR ---
RESPIRATORY NOTE: Received pt on AC 14, 500VT 30%, PEEP +5. Pt intubated w/ ETT 7.0 @ 22cm lipline,. secured by anchorfast. Pt awake/disoriented, responds to stimuli. B/S emilie. clear-diminished, sxn small amounts of thick, haas/brown secretions w/ occasional blood. Both hands on soft restraints to prevent pt from self-extubation. Vent plugged into red outlet, ambubag at bedside. Pt in no apparent distress at this time. Will continue to monitor pt.
--- NOTE | 2018-09-19 19:22 | Cardiology Report ---
APPROVED REPORT EKG Measurement Heart [id number] MD 88P [id number] Sinus tachycardia with short MD Left axis deviation Inferior infarct, age undetermined Anterolateral infarct, age undetermined Abnormal ECG
--- NOTE | 2018-09-19 19:38 | NUR ---
CASE MANAGEMENT: REVIEW SI: RESP FAILURE . VENT DEPENDENT . UNSTAGEABLE SACRAL PRESSURE ULCER T 100.8 HR 78 RR 14 BP 97/43 SAT 96% MECH VENT FIO2 30 H/H 10.7/33.0 K 3.2 IS: KCl 20MEQ IVF @50ML/HR VENOFER IV QHS VIT C PO BID LEVEMIR SUBQ 12UNITS QHS ZOSYN IV Q8HR VANCO IV Q24HR ICU STATUS DCP: PATIENT IS FROM [facility]
--- NOTE | 2018-09-19 19:40 | NUR ---
NURSE NOTES: PATIENT OPEN EYES TO VOICE, DID NOT FOLLOWED COMMANDS, ON ETT TO VENT AC 14/TV 500/FIO2 30%/PEEP 5, O2 SATURATION 96% NOTED AT THIS TIME, ABDOMEN SOFT, G TUBE INTACT AND PATENT, ONGOING GLUCERNA 1.2 AT 50ML/HR STATUS, NO RESIDUE NOTED, GOAL IS 60ML/HR, KEPT HOB OVER 30 DEGREES, F/C INTACT AND PATENT, YELLOW URINE OUTED GRAVITY, PERIPHERAL LINE TO LEFT FA 22G, RIGHT HAND 20G, RIGHT FORE ARM 20G AND PICC LINE TO LEFT UPPER ARM INTACT AND PATENT, CLEANED AND DRIED DRESSING STATUS, MADE LOWER BED POSITION, ON P200 BED WITH ON BED ALARM, PROVIDED CALL LIGHT WITHIN REACH, WILL CONTINUE TO MONITOR.
--- NOTE | 2018-09-19 19:46 | NUR ---
HAND-OFF: Report given to RN. Shaheen Haq conducting EEG at the bedside.
--- NOTE | 2018-09-19 20:00 | NUR ---
NURSE NOTES: ONGOING EEG AT THIS TIME.
--- NOTE | 2018-09-19 21:16 | NUR ---
NURSE NOTES: FINISHED EEG AT THIS TIME.
[2018-09-19] MEDS: Dyna-Hex 2% Top Sol 2oz TOPIC SCH (21:23)
[2018-09-19] MEDS: Levemir Flexpen SUBQ SCH (21:25)
[2018-09-19] MEDS: Iron Sucrose 100 MG in NS 55 ML IV SCH (21:26)
--- NOTE | 2018-09-19 21:44 | Surgery Progress Note ---
Surgery Progress Note Subjective Additional Comments leukocytosis resolved labs noted more awake weaning trials slowly showing improvement Objective Last 24 Hour Vital Signs Date Time Temp Pulse Resp B/P (MAP) Pulse Ox O2 Delivery O2 Flow Rate FiO2 09/19/18 21:00 95 16 30 09/19/18 19:07 60 14 30 09/19/18 19:07 Mechanical Ventilator 30 09/19/18 19:07 Mechanical Ventilator 30 09/19/18 19:00 69 18 128/53 (78) 100 09/19/18 18:00 63 14 100/39 (59) 99 09/19/18 17:36 62 14 30 09/19/18 17:00 99.1 65 14 119/49 (72) 100 09/19/18 16:00 Mechanical Ventilator 09/19/18 16:00 99.9 73 14 97/43 (61) 96 09/19/18 16:00 30 09/19/18 16:00 78 09/19/18 15:40 99.9 09/19/18 15:13 30 09/19/18 15:04 83 28 30 09/19/18 15:00 83 31 125/53 (77) 100 09/19/18 14:00 100.8 85 29 122/54 (76) 98 09/19/18 13:56 84 31 98 Mechanical Ventilator 30 09/19/18 13:44 81 30 100 Mechanical Ventilator 30 09/19/18 13:38 81 29 30 09/19/18 13:00 30 09/19/18 13:00 81 29 122/51 (74) 97 09/19/18 12:00 80 09/19/18 12:00 Mechanical Ventilator 09/19/18 12:00 99.9 82 28 119/57 (77) 97 09/19/18 12:00 30 09/19/18 11:00 81 27 118/52 (74) 98 09/19/18 10:52 83 27 30 09/19/18 10:00 76 25 110/51 (70) 96 09/19/18 09:00 86 26 117/49 (71) 93 09/19/18 08:30 82 25 30 30 09/19/18 08:26 94 09/19/18 08:20 30 09/19/18 08:00 30 09/19/18 08:00 Mechanical Ventilator 09/19/18 08:00 99.6 89 17 110/50 (70) 95 09/19/18 08:00 82 09/19/18 07:25 85 14 97 Mechanical Ventilator 30 09/19/18 07:19 79 18 97 Mechanical Ventilator 30 09/19/18 07:19 82 19 30 09/19/18 07:00 90 23 96/50 (65) 96 09/19/18 06:00 71 14 111/51 (71) 97 09/19/18 05:24 79 15 30 30 09/19/18 05:00 79 14 105/48 (67) 100 09/19/18 04:00 Mechanical Ventilator 09/19/18 04:00 99.1 68 14 106/50 (68) 98 09/19/18 04:00 30 09/19/18 03:04 76 09/19/18 03:00 76 14 95/48 (64) 97 09/19/18 02:34 75 14 30 30 09/19/18 02:00 76 14 104/46 (65) 95 09/19/18 01:16 78 14 99 Mechanical Ventilator 30 09/19/18 01:10 73 14 94 Mechanical Ventilator 30 09/19/18 01:09 73 14 30 30 09/19/18 01:00 75 14 89/43 (58) 94 09/19/18 00:00 99.8 76 14 112/50 (70) 96 09/19/18 00:00 30 09/19/18 00:00 Mechanical Ventilator 09/18/18 23:04 84 09/18/18 23:00 83 14 106/50 (68) 96 09/18/18 22:49 85 14 30 30 09/18/18 22:00 77 14 108/47 (67) 96 I&O Intake and Output 09/18/18 09/19/18 18:59 06:59 Intake Total 1168.000 ml 1135 ml Output Total 1315 ml 895 ml Balance -147.000 ml 240 ml Intake Free Water 300 ml 500 ml IV Total 688.000 ml 185 ml Tube Feeding 180 ml 410 ml Other 40 ml Output Urine Total 1315 ml 895 ml # Bowel Movements 4 2 Dressing: saturated Wound: other Drains: other Cardiovascular: RSR Respiratory: decreased breath sounds Abdomen: soft, present bowel sounds Extremities: no cyanosis Laboratory Tests Test 09/19/18 04:15 White Blood Count 7.2 K/UL (4.8-10.8) Red Blood Count 3.47 M/UL (4.20-5.40) L Hemoglobin 10.7 G/DL (12.0-16.0) L Hematocrit 33.0 % (37.0-47.0) L Mean Corpuscular Volume 95 FL (80-99) Mean Corpuscular Hemoglobin 30.8 PG (27.0-31.0) Mean Corpuscular Hemoglobin Concent 32.4 G/DL (32.0-36.0) Red Cell Distribution Width 13.5 % (11.6-14.8) Platelet Count 200 K/UL (150-450) Mean Platelet Volume 9.0 FL (6.5-10.1) Neutrophils (%) (Auto) 83.4 % (45.0-75.0) H Lymphocytes (%) (Auto) 9.0 % (20.0-45.0) L Monocytes (%) (Auto) 5.5 % (1.0-10.0) Eosinophils (%) (Auto) 1.4 % (0.0-3.0) Basophils (%) (Auto) 0.6 % (0.0-2.0) Sodium Level 141 MMOL/L (136-145) Potassium Level 3.2 MMOL/L (3.5-5.1) L Chloride Level 107 MMOL/L (98-107) Carbon Dioxide Level 26 MMOL/L (21-32) Anion Gap 8 mmol/L (5-15) Blood Urea Nitrogen 7 mg/dL (7-18) Creatinine 0.6 MG/DL (0.55-1.30) Estimat Glomerular Filtration Rate mL/min (>60) Glucose Level 162 MG/DL (74-106) H Calcium Level 8.3 MG/DL (8.5-10.1) L Total Bilirubin 0.3 MG/DL (0.2-1.0) Aspartate Amino Transf (AST/SGOT) 20 U/L (15-37) Alanine Aminotransferase (ALT/SGPT) 13 U/L (12-78) Alkaline Phosphatase 96 U/L (46-116) Total Protein 5.7 G/DL (6.4-8.2) L Albumin 1.3 G/DL (3.4-5.0) L Globulin 4.4 g/dL Albumin/Globulin Ratio 0.3 (1.0-2.7) L Lipase 81 U/L (73-393) Plan Problems: (1) Sepsis Assessment & Plan: 77-year-old female presented to [facility] in distress found to be septic with leukocytosis tachycardia and requiring ventilatory support. Patient's labs noted and significant abnormal. Lactic acidosis. Severe dehydration. Admit to intensive care unit IV fluids Vent support - cont with weaning trial. looks okay for extubation soon IV antibiotics as per infectious disease Trend labs A.m. chest x-ray okay for tube feeds ICU care Leukocytosis improving. Labs improving. We will follow with recommendations Thank you for allowing me to participate in patient's care (2) Lactic acid acidosis (3) Upper sacral area unstageable pressure ulcer (4) G tube feedings Assessment & Plan: DAILY ESTIMATED NEEDS: Needs based on Critical care, sepsis, wound, DM 53.6kg 25-32 kcals/kg 6281-1036 total kcals 1.25-2 g protein/kg 67-107 g total protein 25-32ml/kcal mL/kg 8864-2642 total fluid mLs NUTRITION DIAGNOSIS: 1) Swallowing difficulty R/T dysphagia, CVA as evidenced by PEG dependent, now orally intubated. 2) Increased kcal and pro needs r/t sepsis and wound healing as evidenced by elev BG and POC (200-400's), elev WBC (15.7), febrile (Tmax 100.9), elev Na (148), sacral wound/ unstageable per MD. CURRENT TF: Glucerna 1.2 @60 hrs ENTERAL NUTRITION RECOMMENDATIONS: Glucerna 1.2 @55ml/hr x24 hrs + Prosource x1 daily to provide 1320ml, 1584 kcal, 79g + 11g pro, 1063ml free H2O - Maintain Glucerna 1.2 -> Rec to REDUCE RATE to goal of 55ml/hr - Add Prosource x1 daily to better meet est pro needs - HOB over 30 degrees - Flush per MD-> 150q6 for added 600ml free fluid per day (1063ml from TF + 600ml flushes= 1663ml free fluid per day). ------ ADDITIONAL RECOMMENDATIONS: 1) Monitor hydration status 2) Obtain an accurate calibrated bed scale wt 3) Lytes daily on TF/ replete as needed 4) Rec increase hypoglycemic agents for improved BG control 5) Sacral wound: add AYDEE BID via PEG daily + Vit C 250mg BID daily via GT (5) Respiratory failure (6) Ventilator dependence Akhil Jackson Sep 19, 2018 21:44
--- NOTE | 2018-09-19 23:00 | NUR ---
NURSE NOTES: CLEANED THE PATIENT DUE TO BM, NO DIARRHEA STATUS, WILL CONTINUE TO MONITOR.
[2018-09-20] VITALS (24 sets, daily range): BP systolic 94–157; BP diastolic 43–93
--- NOTE | 2018-09-20 01:00 | NUR ---
NURSE NOTES: PATIENT ASLEEP STATUS, NO PAIN OR DISTRESS NOTED AT THIS TIME.
--- NOTE | 2018-09-20 02:00 | NUR ---
NURSE NOTES: HOLD FEEDING AT THIS TIME DUE TO WEANING IN THE MORNING PER PROTOCOLS.
--- NOTE | 2018-09-20 03:45 | NUR ---
NURSE NOTES: MORNING CARE AND ORAL CARE WAS DONE, NORMAL BOWEL MOVEMENT NOTED.
[2018-09-20 05:31] LABS: BASOPHILS % (AUTO) 0.9 % (0.0-2.0); EOSINOPHILS % (AUTO) 1.8 % (0.0-3.0); HEMOGLOBIN 11.3 G/DL (12.0-16.0); LYMPHOCYTES % (AUTO) 14.3 % (20.0-45.0); MEAN CORPUSCULAR VOLUME 94 FL (80-99); PLATELET COUNT 293 K/UL (150-450); RED BLOOD COUNT 3.63 M/UL (4.20-5.40); RED CELL DISTRIBUTION WIDTH 13.3 % (11.6-14.8); WHITE BLOOD COUNT 7.6 K/UL (4.8-10.8)
[2018-09-20] MEDS: NovoLOG Insulin Flexpen SUBQ SCH ×4 (05:42→23:37)
[2018-09-20 05:45] LABS: ALANINE AMINOTRANSFERASE 13 U/L (12-78); ALBUMIN 1.4 G/DL (3.4-5.0); ALBUMIN/GLOBULIN RATIO 0.3 (1.0-2.7); ALKALINE PHOSPHATASE 105 U/L (46-116); ANION GAP 7 mmol/L (5-15); ASPARTATE AMINO TRANSFERASE 16 U/L (15-37); BILIRUBIN,TOTAL 0.3 MG/DL (0.2-1.0); BLOOD UREA NITROGEN 6 mg/dL (7-18); CALCIUM 8.8 MG/DL (8.5-10.1); CARBON DIOXIDE 27 MMOL/L (21-32); CHLORIDE 108 MMOL/L (98-107); CREATININE 0.5 MG/DL (0.55-1.30); PHOSPHORUS 3.3 MG/DL (2.5-4.9); POTASSIUM 3.9 MMOL/L (3.5-5.1); SODIUM 142 MMOL/L (136-145)
--- NOTE | 2018-09-20 05:50 | NUR ---
NURSE NOTES: NO ACUTE DISTRESS NOTED AT THIS SHIFT.
--- NOTE | 2018-09-20 07:05 | NUR ---
HAND-OFF: Report given to Neeraj GILES RN.
--- NOTE | 2018-09-20 07:10 | NUR ---
NURSE NOTES: Received report from FELIX Haq. Patient is awake, non-verbal and responsive to verbal and tactile stimuli. ETT 7.0/22cm at lip line. Vent setting AC 14, TV 500, FiO2 30% and Peep 5. Gtube intact and been held for weaning later. Left upper arm PICC line intact, clean and running zosyn at this time. No acute distress/SOB noted. No s/sx of pain noted at this time. Call-light placed in easy reach. Will continue plan of care.
--- NOTE | 2018-09-20 07:29 | General Progress Note ---
Assessment/Plan Status: unchanged Assessment/Plan: 77 y/o F with acute hypoxemic respiratory failure and sepsis admitted to ICU # Acute hypoxemic respiratory failure - suspect very low prognosis given neurologic status - Intubated in the ER and ICU management by internal communications writer appreciated. - Serial ABG and CXR as needed. 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 - Nephrology follow up appreciated. 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 - R gaze preference noted. # Hypertension - Monitor and resume home medications not needed now due to hypotension. # History of dementia - Supportive care - SW to attempt to find family members # DVT and GI ppx # FULL CODE by records. - CM / SW follow up for family is needed. Subjective Date patient seen: Sep 20, 2018 ROS Limited/Unobtainable: Yes Allergies: Coded Allergies: No Known Allergies (Unverified , 02/04/17) Subjective eeg prelim reviewed, shows focal slowing and otherwise nondiagnostic tolerated cpap Objective Last 24 Hour Vital Signs Date Time Temp Pulse Resp B/P (MAP) Pulse Ox O2 Delivery O2 Flow Rate FiO2 09/20/18 07:00 70 14 123/57 (79) 97 09/20/18 06:00 60 14 102/52 (69) 99 09/20/18 05:00 61 14 129/71 (90) 100 09/20/18 04:52 71 16 30 09/20/18 04:00 30 09/20/18 04:00 Mechanical Ventilator 09/20/18 04:00 98.7 69 14 129/57 (81) 100 09/20/18 03:31 60 09/20/18 03:00 75 16 157/67 (97) 100 09/20/18 02:00 67 14 94/43 (60) 100 09/20/18 01:00 64 14 103/49 (67) 100 09/20/18 00:47 69 14 30 09/20/18 00:00 Mechanical Ventilator 09/20/18 00:00 98.7 69 14 128/57 (80) 100 09/20/18 00:00 30 09/19/18 23:13 63 09/19/18 23:00 60 14 124/52 (76) 100 09/19/18 22:45 66 14 30 09/19/18 22:00 73 17 126/44 (71) 99 09/19/18 21:00 95 16 30 09/19/18 21:00 64 15 93/47 (62) 99 09/19/18 20:06 60 09/19/18 20:00 Mechanical Ventilator 09/19/18 20:00 99.1 62 14 91/44 (60) 99 09/19/18 20:00 30 09/19/18 19:07 60 14 30 09/19/18 19:07 Mechanical Ventilator 30 09/19/18 19:07 Mechanical Ventilator 30 09/19/18 19:00 69 18 128/53 (78) 100 09/19/18 18:00 63 14 100/39 (59) 99 09/19/18 17:36 62 14 30 09/19/18 17:00 99.1 65 14 119/49 (72) 100 09/19/18 16:00 Mechanical Ventilator 09/19/18 16:00 99.9 73 14 97/43 (61) 96 09/19/18 16:00 30 09/19/18 16:00 78 09/19/18 15:40 99.9 09/19/18 15:13 30 09/19/18 15:04 83 28 30 09/19/18 15:00 83 31 125/53 (77) 100 09/19/18 14:00 100.8 85 29 122/54 (76) 98 09/19/18 13:56 84 31 98 Mechanical Ventilator 30 09/19/18 13:44 81 30 100 Mechanical Ventilator 30 09/19/18 13:38 81 29 30 09/19/18 13:00 30 09/19/18 13:00 81 29 122/51 (74) 97 09/19/18 12:00 80 09/19/18 12:00 Mechanical Ventilator 09/19/18 12:00 99.9 82 28 119/57 (77) 97 09/19/18 12:00 30 09/19/18 11:00 81 27 118/52 (74) 98 09/19/18 10:52 83 27 30 09/19/18 10:00 76 25 110/51 (70) 96 09/19/18 09:00 86 26 117/49 (71) 93 09/19/18 08:30 82 25 30 30 09/19/18 08:26 94 09/19/18 08:20 30 09/19/18 08:00 30 09/19/18 08:00 Mechanical Ventilator 09/19/18 08:00 99.6 89 17 110/50 (70) 95 09/19/18 08:00 82 Intake and Output 09/19/18 09/20/18 19:00 07:00 Intake Total 1060.333 ml 791 ml Output Total 1500 ml 1160 ml Balance -439.667 ml -369 ml Intake Free Water 100 ml 250 ml IV Total 550.333 ml 191 ml Tube Feeding 380 ml 350 ml Other 30 ml Output Urine Total 1500 ml 1160 ml # Bowel Movements 4 Laboratory Tests 09/20/18 04:00: White Blood Count 7.6, Red Blood Count 3.63L, Hemoglobin 11.3L, Hematocrit 34.0L , Mean Corpuscular Volume 94, Mean Corpuscular Hemoglobin 31.0, Mean Corpuscular Hemoglobin Concent 33.1, Red Cell Distribution Width 13.3, Platelet Count 293, Mean Platelet Volume 7.6, Neutrophils (%) (Auto) 78.0H, Lymphocytes ( %) (Auto) 14.3L, Monocytes (%) (Auto) 5.0, Eosinophils (%) (Auto) 1.8, Basophils (%) (Auto) 0.9, Sodium Level 142, Potassium Level 3.9, Chloride Level 108H, Carbon Dioxide Level 27, Anion Gap 7, Blood Urea Nitrogen 6L, Creatinine 0.5L, Estimat Glomerular Filtration Rate , Glucose Level 167H, Uric Acid 2.2L, Calcium Level 8.8, Phosphorus Level 3.3, Magnesium Level 1.9, Total Bilirubin 0.3, Aspartate Amino Transf (AST/SGOT) 16, Alanine Aminotransferase (ALT/SGPT) 13, Alkaline Phosphatase 105, C-Reactive Protein, Quantitative 9.9H, Pro-B-Type Natriuretic Peptide 563H, Total Protein 6.3L, Albumin 1.4L, Globulin 4.9, Albumin/Globulin Ratio 0.3L, Folate 24.7, Cortisol AM Sample [Pending] Height (Feet): 5 Height (Inches): 3.00 Weight (Pounds): 123 Objective GEN: intubated, eyes open, right side gaze preference HEENT: pupils 8mm and sluggish CV: RRR, no M, R, G, no jvd RESP: CTAB, no w/r/c ABD: normal bowel sounds, soft, non tender EXT: normal muscle tone, no tenderness NEURO: no changes, does not withdraw from pain, blinks to hand toward face, no tracking Desiree Helm DO Sep 20, 2018 07:29
[2018-09-20] MEDS: Ascorbic Acid 500mg tab ORAL SCH ×2 (08:23→17:20)
[2018-09-20] MEDS: Pantoprazole Inj IV SCH (08:23)
[2018-09-20] MEDS: Docusate 100mg cap ORAL SCH ×2 (08:24→20:53)
[2018-09-20] MEDS: Heparin 5000 units/ml inj SUBQ SCH ×2 (08:24→20:54)
--- NOTE | 2018-09-20 08:52 | NUR ---
NURSE NOTES: Due meds given and repositioned patient.
--- NOTE | 2018-09-20 09:10 | NUR ---
RESPIRATORY NOTE: Received pt on AC 14-500VT, 30%, PEEP +5. Pt orally intubated with ETT 7.0 @ 22cm lipline, secured by anchor fast. Pt awake but unable to follow commands, responds to stimuli .Toney clear diminished breath sounds heard upon auscultation, sxn small amounts of thick yellow haas secretions without incidents. Vent plugged into red outlet, alarms are set and audible, ambu bag at bedside. Vent circuits and sxn tubing are secured and out of the way. Pt resting comfortably, in no apparent distress at this time. Placed pt on CPAP PS , peep 5, 30% FiO2 per Dr. Swift's order. Pt is tolerating well, no SOB or resp distress noted. RSBI 65, NIF -17. FELIX Lyn made aware. Will continue to monitor pt.
--- NOTE | 2018-09-20 11:12 | NUR ---
RESPIRATORY NOTE: Leak test done on AC mode 14-500ml- 30%- peep 5: Inflated Vt 504ml, deflated Vt 365ml. This indicates there could be inflammation or edema. RN Riki made aware. Awaiting for MD's order.
--- NOTE | 2018-09-20 11:13 | NUR ---
NURSE NOTES: Collected blood for vancomycin trough and sent to the lab.
--- NOTE | 2018-09-20 11:59 | General Progress Note ---
Assessment/Plan Problem List: (1) DM (diabetes mellitus) ICD Codes: E11.9 - Type 2 diabetes mellitus without complications SNOMED: 70101017 (2) CVA, old, hemiparesis ICD Codes: I69.359 - Hemiplegia and hemiparesis following cerebral infarction affecting unspecified side; R65.20 - Severe sepsis without septic shock SNOMED: 707104492 (3) Severe sepsis ICD Codes: A41.9 - Sepsis, unspecified organism; R65.20 - Severe sepsis without septic shock SNOMED: 55021871 (4) Respiratory failure ICD Codes: J96.90 - Respiratory failure, unspecified, unspecified whether with hypoxia or hypercapnia SNOMED: 507306601 (5) Dehydration ICD Codes: E86.0 - Dehydration SNOMED: 57255349 (6) Large ischemic R MCA stroke (7) HTN (hypertension) ICD Codes: I10 - Essential (primary) hypertension SNOMED: 80284375 (8) G tube feedings ICD Codes: Z93.1 - Gastrostomy status SNOMED: 200973610, 385243939, 409126381 Status: unchanged Assessment/Plan: GTF>> on hold for possible extubation fu labs abx per ID respiratory care fu abd us>> neg Subjective ROS Limited/Unobtainable: No Allergies: Coded Allergies: No Known Allergies (Unverified , 02/04/17) Objective Last 24 Hour Vital Signs Date Time Temp Pulse Resp B/P (MAP) Pulse Ox O2 Delivery O2 Flow Rate FiO2 09/20/18 11:12 68 22 30 09/20/18 10:00 68 23 120/53 (75) 100 09/20/18 09:10 80 23 30 09/20/18 09:10 30 09/20/18 09:10 97 09/20/18 09:00 69 14 109/47 (67) 97 09/20/18 08:03 67 14 30 09/20/18 08:00 30 09/20/18 08:00 98.5 72 16 149/93 (111) 97 09/20/18 08:00 Mechanical Ventilator 09/20/18 08:00 68 09/20/18 07:00 70 14 123/57 (79) 97 09/20/18 06:00 60 14 102/52 (69) 99 09/20/18 05:00 61 14 129/71 (90) 100 09/20/18 04:52 71 16 30 09/20/18 04:00 30 09/20/18 04:00 Mechanical Ventilator 09/20/18 04:00 98.7 69 14 129/57 (81) 100 09/20/18 03:31 60 09/20/18 03:00 75 16 157/67 (97) 100 09/20/18 02:00 67 14 94/43 (60) 100 09/20/18 01:00 64 14 103/49 (67) 100 09/20/18 00:47 69 14 30 09/20/18 00:00 Mechanical Ventilator 09/20/18 00:00 98.7 69 14 128/57 (80) 100 09/20/18 00:00 30 09/19/18 23:13 63 09/19/18 23:00 60 14 124/52 (76) 100 09/19/18 22:45 66 14 30 09/19/18 22:00 73 17 126/44 (71) 99 09/19/18 21:00 95 16 30 09/19/18 21:00 64 15 93/47 (62) 99 09/19/18 20:06 60 09/19/18 20:00 Mechanical Ventilator 09/19/18 20:00 99.1 62 14 91/44 (60) 99 09/19/18 20:00 30 09/19/18 19:07 60 14 30 09/19/18 19:07 Mechanical Ventilator 30 09/19/18 19:07 Mechanical Ventilator 30 09/19/18 19:00 69 18 128/53 (78) 100 09/19/18 18:00 63 14 100/39 (59) 99 09/19/18 17:36 62 14 30 09/19/18 17:00 99.1 65 14 119/49 (72) 100 09/19/18 16:00 Mechanical Ventilator 09/19/18 16:00 99.9 73 14 97/43 (61) 96 09/19/18 16:00 30 09/19/18 16:00 78 09/19/18 15:40 99.9 09/19/18 15:13 30 09/19/18 15:04 83 28 30 09/19/18 15:00 83 31 125/53 (77) 100 09/19/18 14:00 100.8 85 29 122/54 (76) 98 8/7/19 13:56 84 31 98 Mechanical Ventilator 30 09/19/18 13:44 81 30 100 Mechanical Ventilator 30 09/19/18 13:38 81 29 30 09/19/18 13:00 30 09/19/18 13:00 81 29 122/51 (74) 97 09/19/18 12:00 80 09/19/18 12:00 Mechanical Ventilator 09/19/18 12:00 99.9 82 28 119/57 (77) 97 09/19/18 12:00 30 Intake and Output 09/19/18 09/20/18 19:00 07:00 Intake Total 1060.333 ml 791 ml Output Total 1500 ml 1160 ml Balance -439.667 ml -369 ml Intake Free Water 100 ml 250 ml IV Total 550.333 ml 191 ml Tube Feeding 380 ml 350 ml Other 30 ml Output Urine Total 1500 ml 1160 ml # Bowel Movements 4 Laboratory Tests 09/20/18 04:00: White Blood Count 7.6, Red Blood Count 3.63L, Hemoglobin 11.3L, Hematocrit 34.0L , Mean Corpuscular Volume 94, Mean Corpuscular Hemoglobin 31.0, Mean Corpuscular Hemoglobin Concent 33.1, Red Cell Distribution Width 13.3, Platelet Count 293, Mean Platelet Volume 7.6, Neutrophils (%) (Auto) 78.0H, Lymphocytes ( %) (Auto) 14.3L, Monocytes (%) (Auto) 5.0, Eosinophils (%) (Auto) 1.8, Basophils (%) (Auto) 0.9, Sodium Level 142, Potassium Level 3.9, Chloride Level 108H, Carbon Dioxide Level 27, Anion Gap 7, Blood Urea Nitrogen 6L, Creatinine 0.5L, Estimat Glomerular Filtration Rate , Glucose Level 167H, Uric Acid 2.2L, Calcium Level 8.8, Phosphorus Level 3.3, Magnesium Level 1.9, Total Bilirubin 0.3, Aspartate Amino Transf (AST/SGOT) 16, Alanine Aminotransferase (ALT/SGPT) 13, Alkaline Phosphatase 105, C-Reactive Protein, Quantitative 9.9H, Pro-B-Type Natriuretic Peptide 563H, Total Protein 6.3L, Albumin 1.4L, Globulin 4.9, Albumin/Globulin Ratio 0.3L, Folate 24.7, Cortisol AM Sample [Pending] 09/20/18 11:00: Vancomycin Level Trough 5.3 Height (Feet): 5 Height (Inches): 3.00 Weight (Pounds): 123 General Appearance: no apparent distress EENT: PERRL/EOMI Neck: normal alignment Cardiovascular: normal rate Respiratory/Chest: decreased breath sounds Abdomen: normal bowel sounds, non tender, soft Extremities: non-tender Ovi Brown MD Sep 20, 2018 11:59
[2018-09-20] MEDS: Vancomycin 750mg/NS 275ml IVPB SCH ×2 (12:01)
--- NOTE | 2018-09-20 12:05 | NUR ---
NURSE NOTES: Oral care provided and repositioned patient. Will continue plan of care.
--- NOTE | 2018-09-20 13:10 | Nephrology Progress Note ---
Assessment/Plan Problem List: (1) KEL (acute kidney injury) (2) Respiratory failure (3) Dehydration (4) Electrolyte imbalance (5) G tube feedings (6) Hypokalemia (7) CVA, old, hemiparesis (8) DM (diabetes mellitus) Plan antibiotics Pulm support correct lytes BS and BP check and monitor per consultants Subjective ROS Limited/Unobtainable: Yes Objective Objective Last 24 Hour Vital Signs Date Time Temp Pulse Resp B/P (MAP) Pulse Ox O2 Delivery O2 Flow Rate FiO2 09/20/18 12:00 99.3 72 22 126/59 (81) 99 09/20/18 12:00 76 09/20/18 12:00 Mechanical Ventilator 09/20/18 11:12 68 22 30 09/20/18 11:00 70 22 131/54 (79) 99 09/20/18 10:00 68 23 120/53 (75) 100 09/20/18 09:10 80 23 30 09/20/18 09:10 30 09/20/18 09:10 97 09/20/18 09:00 69 14 109/47 (67) 97 09/20/18 08:03 67 14 30 09/20/18 08:00 30 09/20/18 08:00 98.5 72 16 149/93 (111) 97 09/20/18 08:00 Mechanical Ventilator 09/20/18 08:00 68 09/20/18 07:00 70 14 123/57 (79) 97 09/20/18 06:00 60 14 102/52 (69) 99 09/20/18 05:00 61 14 129/71 (90) 100 09/20/18 04:52 71 16 30 09/20/18 04:00 30 09/20/18 04:00 Mechanical Ventilator 09/20/18 04:00 98.7 69 14 129/57 (81) 100 09/20/18 03:31 60 09/20/18 03:00 75 16 157/67 (97) 100 09/20/18 02:00 67 14 94/43 (60) 100 09/20/18 01:00 64 14 103/49 (67) 100 09/20/18 00:47 69 14 30 09/20/18 00:00 Mechanical Ventilator 09/20/18 00:00 98.7 69 14 128/57 (80) 100 09/20/18 00:00 30 09/19/18 23:13 63 09/19/18 23:00 60 14 124/52 (76) 100 09/19/18 22:45 66 14 30 09/19/18 22:00 73 17 126/44 (71) 99 09/19/18 21:00 95 16 30 09/19/18 21:00 64 15 93/47 (62) 99 09/19/18 20:06 60 09/19/18 20:00 Mechanical Ventilator 09/19/18 20:00 99.1 62 14 91/44 (60) 99 09/19/18 20:00 30 09/19/18 19:07 60 14 30 09/19/18 19:07 Mechanical Ventilator 30 09/19/18 19:07 Mechanical Ventilator 30 09/19/18 19:00 69 18 128/53 (78) 100 09/19/18 18:00 63 14 100/39 (59) 99 09/19/18 17:36 62 14 30 09/19/18 17:00 99.1 65 14 119/49 (72) 100 09/19/18 16:00 Mechanical Ventilator 09/19/18 16:00 99.9 73 14 97/43 (61) 96 09/19/18 16:00 30 09/19/18 16:00 78 09/19/18 15:40 99.9 09/19/18 15:13 30 09/19/18 15:04 83 28 30 09/19/18 15:00 83 31 125/53 (77) 100 09/19/18 14:00 100.8 85 29 122/54 (76) 98 09/19/18 13:56 84 31 98 Mechanical Ventilator 30 09/19/18 13:44 81 30 100 Mechanical Ventilator 30 09/19/18 13:38 81 29 30 Intake and Output 09/19/18 09/20/18 19:00 07:00 Intake Total 1060.333 ml 791 ml Output Total 1500 ml 1160 ml Balance -439.667 ml -369 ml Intake Free Water 100 ml 250 ml IV Total 550.333 ml 191 ml Tube Feeding 380 ml 350 ml Other 30 ml Output Urine Total 1500 ml 1160 ml # Bowel Movements 4 Laboratory Tests 09/20/18 04:00: White Blood Count 7.6, Red Blood Count 3.63L, Hemoglobin 11.3L, Hematocrit 34.0L , Mean Corpuscular Volume 94, Mean Corpuscular Hemoglobin 31.0, Mean Corpuscular Hemoglobin Concent 33.1, Red Cell Distribution Width 13.3, Platelet Count 293, Mean Platelet Volume 7.6, Neutrophils (%) (Auto) 78.0H, Lymphocytes ( %) (Auto) 14.3L, Monocytes (%) (Auto) 5.0, Eosinophils (%) (Auto) 1.8, Basophils (%) (Auto) 0.9, Sodium Level 142, Potassium Level 3.9, Chloride Level 108H, Carbon Dioxide Level 27, Anion Gap 7, Blood Urea Nitrogen 6L, Creatinine 0.5L, Estimat Glomerular Filtration Rate , Glucose Level 167H, Uric Acid 2.2L, Calcium Level 8.8, Phosphorus Level 3.3, Magnesium Level 1.9, Total Bilirubin 0.3, Aspartate Amino Transf (AST/SGOT) 16, Alanine Aminotransferase (ALT/SGPT) 13, Alkaline Phosphatase 105, C-Reactive Protein, Quantitative 9.9H, Pro-B-Type Natriuretic Peptide 563H, Total Protein 6.3L, Albumin 1.4L, Globulin 4.9, Albumin/Globulin Ratio 0.3L, Folate 24.7, Cortisol AM Sample [Pending] 09/20/18 11:00: Vancomycin Level Trough 5.3 Height (Feet): 5 Height (Inches): 3.00 Weight (Pounds): 123 General Appearance: no apparent distress EENT: other - on vent Cardiovascular: normal rate Respiratory/Chest: decreased breath sounds Abdomen: distended Dwayne Vernon MD Sep 20, 2018 13:10
--- NOTE | 2018-09-20 13:18 | NUR ---
RESPIRATORY NOTE: Put pt back on AC mode due to using abdominal muscle to breathe, shallow breathing RR 31-35 bpm. Pt is stable now, no resp distress. Will continue to monitor. FELIX Lyn made aware.
--- NOTE | 2018-09-20 14:40 | NUR ---
NURSE NOTES: Residual 5cc noted. Gtube feeding started with Glucerna 1.2 @50ml/hr. Will continue plan of care.
--- NOTE | 2018-09-20 15:36 | NUR ---
NURSE NOTES: Seen by Dr. Swift and assessed patient. Notified leak test results and weaning trial. No new orders at this time. Will continue plan of care.
--- NOTE | 2018-09-20 16:21 | Surgery Progress Note ---
Surgery Progress Note Subjective Additional Comments labs improved exam stable still on support US noted. Objective Last 24 Hour Vital Signs Date Time Temp Pulse Resp B/P (MAP) Pulse Ox O2 Delivery O2 Flow Rate FiO2 09/20/18 16:00 82 09/20/18 15:30 76 14 30 09/20/18 15:00 79 14 126/50 (75) 100 09/20/18 14:00 75 17 126/51 (76) 100 09/20/18 13:22 30 09/20/18 13:18 95 28 30 09/20/18 13:00 76 23 134/54 (80) 100 09/20/18 12:00 99.3 72 22 126/59 (81) 99 09/20/18 12:00 30 09/20/18 12:00 76 09/20/18 12:00 Mechanical Ventilator 09/20/18 11:12 68 22 30 09/20/18 11:00 70 22 131/54 (79) 99 09/20/18 10:00 68 23 120/53 (75) 100 09/20/18 09:10 80 23 30 09/20/18 09:10 30 09/20/18 09:10 97 09/20/18 09:00 69 14 109/47 (67) 97 09/20/18 08:03 67 14 30 09/20/18 08:00 30 09/20/18 08:00 98.5 72 16 149/93 (111) 97 09/20/18 08:00 Mechanical Ventilator 09/20/18 08:00 68 09/20/18 07:00 70 14 123/57 (79) 97 09/20/18 06:00 60 14 102/52 (69) 99 09/20/18 05:00 61 14 129/71 (90) 100 09/20/18 04:52 71 16 30 09/20/18 04:00 30 09/20/18 04:00 Mechanical Ventilator 09/20/18 04:00 98.7 69 14 129/57 (81) 100 09/20/18 03:31 60 09/20/18 03:00 75 16 157/67 (97) 100 09/20/18 02:00 67 14 94/43 (60) 100 09/20/18 01:00 64 14 103/49 (67) 100 09/20/18 00:47 69 14 30 09/20/18 00:00 Mechanical Ventilator 09/20/18 00:00 98.7 69 14 128/57 (80) 100 09/20/18 00:00 30 09/19/18 23:13 63 09/19/18 23:00 60 14 124/52 (76) 100 09/19/18 22:45 66 14 30 09/19/18 22:00 73 17 126/44 (71) 99 09/19/18 21:00 95 16 30 09/19/18 21:00 64 15 93/47 (62) 99 09/19/18 20:06 60 09/19/18 20:00 Mechanical Ventilator 09/19/18 20:00 99.1 62 14 91/44 (60) 99 09/19/18 20:00 30 09/19/18 19:07 60 14 30 09/19/18 19:07 Mechanical Ventilator 30 09/19/18 19:07 Mechanical Ventilator 30 09/19/18 19:00 69 18 128/53 (78) 100 09/19/18 18:00 63 14 100/39 (59) 99 09/19/18 17:36 62 14 30 09/19/18 17:00 99.1 65 14 119/49 (72) 100 I&O Intake and Output 09/19/18 09/20/18 19:00 07:00 Intake Total 1060.333 ml 791 ml Output Total 1500 ml 1160 ml Balance -439.667 ml -369 ml Intake Free Water 100 ml 250 ml IV Total 550.333 ml 191 ml Tube Feeding 380 ml 350 ml Other 30 ml Output Urine Total 1500 ml 1160 ml # Bowel Movements 4 Laboratory Tests Test 09/20/18 04:00 09/20/18 11:00 White Blood Count 7.6 K/UL (4.8-10.8) Red Blood Count 3.63 M/UL (4.20-5.40) L Hemoglobin 11.3 G/DL (12.0-16.0) L Hematocrit 34.0 % (37.0-47.0) L Mean Corpuscular Volume 94 FL (80-99) Mean Corpuscular Hemoglobin 31.0 PG (27.0-31.0) Mean Corpuscular Hemoglobin Concent 33.1 G/DL (32.0-36.0) Red Cell Distribution Width 13.3 % (11.6-14.8) Platelet Count 293 K/UL (150-450) Mean Platelet Volume 7.6 FL (6.5-10.1) Neutrophils (%) (Auto) 78.0 % (45.0-75.0) H Lymphocytes (%) (Auto) 14.3 % (20.0-45.0) L Monocytes (%) (Auto) 5.0 % (1.0-10.0) Eosinophils (%) (Auto) 1.8 % (0.0-3.0) Basophils (%) (Auto) 0.9 % (0.0-2.0) Sodium Level 142 MMOL/L (136-145) Potassium Level 3.9 MMOL/L (3.5-5.1) Chloride Level 108 MMOL/L (98-107) H Carbon Dioxide Level 27 MMOL/L (21-32) Anion Gap 7 mmol/L (5-15) Blood Urea Nitrogen 6 mg/dL (7-18) L Creatinine 0.5 MG/DL (0.55-1.30) L Estimat Glomerular Filtration Rate mL/min (>60) Glucose Level 167 MG/DL (74-106) H Uric Acid 2.2 MG/DL (2.6-7.2) L Calcium Level 8.8 MG/DL (8.5-10.1) Phosphorus Level 3.3 MG/DL (2.5-4.9) Magnesium Level 1.9 MG/DL (1.8-2.4) Total Bilirubin 0.3 MG/DL (0.2-1.0) Aspartate Amino Transf (AST/SGOT) 16 U/L (15-37) Alanine Aminotransferase (ALT/SGPT) 13 U/L (12-78) Alkaline Phosphatase 105 U/L (46-116) C-Reactive Protein, Quantitative 9.9 mg/dL (0.00-0.90) H Pro-B-Type Natriuretic Peptide 563 pg/mL (0-125) H Total Protein 6.3 G/DL (6.4-8.2) L Albumin 1.4 G/DL (3.4-5.0) L Globulin 4.9 g/dL Albumin/Globulin Ratio 0.3 (1.0-2.7) L Folate 24.7 NG/ML (8.6-58.9) Cortisol AM Sample 12.2 UG/DL Vancomycin Level Trough 5.3 ug/mL (5.0-12.0) Plan Problems: (1) Sepsis Assessment & Plan: 77-year-old female presented to [facility] in distress found to be septic with leukocytosis tachycardia and requiring ventilatory support. Patient's labs noted and significant abnormal. Lactic acidosis. Severe dehydration. Admit to intensive care unit IV fluids Vent support - cont with weaning trial. looks okay for extubation soon IV antibiotics as per infectious disease Trend labs A.m. chest x-ray okay for tube feeds ICU care Leukocytosis improving. Labs improving. US noted wean vent for extubation We will follow with recommendations Thank you for allowing me to participate in patient's care (2) Lactic acid acidosis (3) Upper sacral area unstageable pressure ulcer (4) G tube feedings Assessment & Plan: DAILY ESTIMATED NEEDS: Needs based on Critical care, sepsis, wound, DM 53.6kg 25-32 kcals/kg 9047-7474 total kcals 1.25-2 g protein/kg 67-107 g total protein 25-32ml/kcal mL/kg 3973-8563 total fluid mLs NUTRITION DIAGNOSIS: 1) Swallowing difficulty R/T dysphagia, CVA as evidenced by PEG dependent, now orally intubated. 2) Increased kcal and pro needs r/t sepsis and wound healing as evidenced by elev BG and POC (200-400's), elev WBC (15.7), febrile (Tmax 100.9), elev Na (148), sacral wound/ unstageable per MD. CURRENT TF: Glucerna 1.2 @60 hrs ENTERAL NUTRITION RECOMMENDATIONS: Glucerna 1.2 @55ml/hr x24 hrs + Prosource x1 daily to provide 1320ml, 1584 kcal, 79g + 11g pro, 1063ml free H2O - Maintain Glucerna 1.2 -> Rec to REDUCE RATE to goal of 55ml/hr - Add Prosource x1 daily to better meet est pro needs - HOB over 30 degrees - Flush per MD-> 150q6 for added 600ml free fluid per day (1063ml from TF + 600ml flushes= 1663ml free fluid per day). ------ ADDITIONAL RECOMMENDATIONS: 1) Monitor hydration status 2) Obtain an accurate calibrated bed scale wt 3) Lytes daily on TF/ replete as needed 4) Rec increase hypoglycemic agents for improved BG control 5) Sacral wound: add AYDEE BID via PEG daily + Vit C 250mg BID daily via GT (5) Respiratory failure (6) Ventilator dependence Akhil Jackson Sep 20, 2018 16:21
--- NOTE | 2018-09-20 17:06 | NUR ---
NURSE NOTES: Bed bath and oral care given.
--- NOTE | 2018-09-20 19:00 | NUR ---
RESPIRATORY NOTE:RESPIRATORY NOTE: Pt recieved on set values, no SOB or discomfort noted, ett tube @ 22 lip line, 7.0 ETT tube on the right side, pt is alert, sx PRN, alarms are on x audible x vent plugged into red outlet, will continue to monitor pts progress
--- NOTE | 2018-09-20 19:15 | NUR ---
HAND-OFF: Report given to FELIX Haq. Endorsed plan of care.
--- NOTE | 2018-09-20 19:21 | Pulmonolgy Critical Care Note ---
Critical Care - Asmt/Plan Assessment/Plan: Pulmonary CCM Progress Note Critical Care - Asmt/Plan Problems: (1) Endotracheally intubated (2) Ventilator dependence, tolerating CPAP trials (3) Sepsis, on pressors PRN (4) Pneumonia (5) Electrolyte imbalance (6) Dehydration (7) Altered mental status (8) Hypernatremia (9) Respiratory failure (10) Lactic acid acidosis (11) H/O: CVA (cerebrovascular accident) - more interactive today (12) G tube feedings (13) KEL (acute kidney injury) Respiratory: monitor respiratory rate, adjust FIO2, ABG, other - HHN's, pulmonary hygiene wean an tolerated, consider extubation if passes cuff leak Cardiac: continue to monitor HR/BP Renal: keep negative Infectious Disease: check cultures, continue antibiotics per ID Gastrointestinal: enteral feeding Endocrine: monitor blood sugar, continue sliding scale insulin Hematologic: monitor H/H Neurologic: keep patient comfortable - monitor MS, consider neuro eval and EEG Prophylaxis: Protonix, Heparin Disposition: keep in ICU Time Spent (Minutes): 40 Notes Reviewed: exploration geologist, renal, ID, other - ERMD Discussed with: nurses, consultants, other - FC Critical Care - Objective Vital Signs Noted Status: sedated - intubated Condition: critical HEENT: atraumatic, normocephalic, other - ETT OGT weak gag Lungs: rhonchi Heart: HR/BP stable Abdomen: soft, non-tender, active bowel sounds, feeding tube Extremities: no C/C/E Micro: Microbiology Date/Time Source Procedure Growth Status 09/14/18 09:00 Rectum Received Critical Care - Subjective ROS Limited/Unobtainable: Yes ICU Day: 4 Intubation Day: 4 Interval Events: 77 F NHR h/o dementia, CVA, GT, HTN, HL a/w AMS and SOB intubated in ER Na 167 Cr 1.7 LA elevated + hemoconcentration No gag in ER + faint gag now + F no C no further hx obtainable Condition: critical IV Access: peripheral - x2 EKG Rhythm: Sinus Rhythm FI02: 60 Vent Support Breath Rate: 14 Vent Support Mode: AC Vent Tidal Volume: 500 Sputum Amount: Small PEEP: 5.0 PIP: 23 Secretions: scant thick Subjective: ARLETTE CXR: L RC inf, small L eff, ETT ET-Tube: 7.0 ET Position: 22 Labs: Laboratory Tests noted Critical Care - Objective Last 24 Hour Vital Signs Date Time Temp Pulse Resp B/P (MAP) Pulse Ox O2 Delivery O2 Flow Rate FiO2 09/20/18 19:00 63 16 128/70 (89) 99 09/20/18 18:00 64 14 112/49 (70) 98 09/20/18 17:19 72 14 30 09/20/18 17:00 98.5 73 14 100/44 (62) 97 09/20/18 16:14 98.5 09/20/18 16:00 101.0 81 15 107/47 (67) 99 09/20/18 16:00 Mechanical Ventilator 09/20/18 16:00 82 09/20/18 15:30 76 14 30 09/20/18 15:00 79 14 126/50 (75) 100 09/20/18 14:00 75 17 126/51 (76) 100 09/20/18 13:22 30 09/20/18 13:18 95 28 30 09/20/18 13:00 76 23 134/54 (80) 100 09/20/18 12:00 99.3 72 22 126/59 (81) 99 09/20/18 12:00 30 09/20/18 12:00 76 09/20/18 12:00 Mechanical Ventilator 09/20/18 11:12 68 22 30 09/20/18 11:00 70 22 131/54 (79) 99 09/20/18 10:00 68 23 120/53 (75) 100 09/20/18 09:10 80 23 30 09/20/18 09:10 30 09/20/18 09:10 97 09/20/18 09:00 69 14 109/47 (67) 97 09/20/18 08:03 67 14 30 09/20/18 08:00 30 09/20/18 08:00 98.5 72 16 149/93 (111) 97 09/20/18 08:00 Mechanical Ventilator 09/20/18 08:00 68 09/20/18 07:00 70 14 123/57 (79) 97 09/20/18 06:00 60 14 102/52 (69) 99 09/20/18 05:00 61 14 129/71 (90) 100 09/20/18 04:52 71 16 30 09/20/18 04:00 30 09/20/18 04:00 Mechanical Ventilator 09/20/18 04:00 98.7 69 14 129/57 (81) 100 09/20/18 03:31 60 09/20/18 03:00 75 16 157/67 (97) 100 09/20/18 02:00 67 14 94/43 (60) 100 09/20/18 01:00 64 14 103/49 (67) 100 09/20/18 00:47 69 14 30 09/20/18 00:00 Mechanical Ventilator 09/20/18 00:00 98.7 69 14 128/57 (80) 100 09/20/18 00:00 30 09/19/18 23:13 63 09/19/18 23:00 60 14 124/52 (76) 100 09/19/18 22:45 66 14 30 09/19/18 22:00 73 17 126/44 (71) 99 09/19/18 21:00 95 16 30 09/19/18 21:00 64 15 93/47 (62) 99 09/19/18 20:06 60 09/19/18 20:00 Mechanical Ventilator 09/19/18 20:00 99.1 62 14 91/44 (60) 99 09/19/18 20:00 30 Accucheck: 143 Critical Care - Subjective ROS Limited/Unobtainable: No FI02: 30 Vent Support Breath Rate: 14 Vent Support Mode: AC Vent Tidal Volume: 500 Sputum Amount: Scant PEEP: 5.0 PIP: 26 Tube Feeding Amount: 50 I&O: Intake and Output 09/19/18 09/20/18 19:00 07:00 Intake Total 1060.333 ml 791 ml Output Total 1500 ml 1160 ml Balance -439.667 ml -369 ml Intake Free Water 100 ml 250 ml IV Total 550.333 ml 191 ml Tube Feeding 380 ml 350 ml Other 30 ml Output Urine Total 1500 ml 1160 ml # Bowel Movements 4 ET-Tube: 7.0 ET Position: 22 Marcelo Swift MD Sep 20, 2018 19:21
[2018-09-20] MEDS: Dyna-Hex 2% Top Sol 2oz TOPIC SCH (19:38)
--- NOTE | 2018-09-20 19:45 | NUR ---
NURSE NOTES: PATIENT SPONTANEOUS OPEN EYES,+ DID NOT FOLLOWED COMMANDS, ON ETT TO VENT AC 14/TV 500/FIO2 30%/PEEP 5, O2 SATURATION 98% NOTED AT THIS TIME, ABDOMEN SOFT, G TUBE INTACT AND PATENT, ONGOING GLUCERNA 1.2 AT 50ML/HR STATUS, NO RESIDUE NOTED, GOAL IS 60ML/HR, KEPT HOB OVER 30 DEGREES, F/C INTACT AND PATENT, YELLOW URINE OUTED GRAVITY, PERIPHERAL LINE TO LEFT FA 22G AND PICC LINE TO LEFT UPPER ARM INTACT AND PATENT, CLEANED AND DRIED DRESSING STATUS, MADE LOWER BED POSITION, ON P200 BED WITH ON BED ALARM, PROVIDED CALL LIGHT WITHIN REACH, WILL CONTINUE TO MONITOR.
[2018-09-20] MEDS: Iron Sucrose 100 MG in NS 55 ML IV SCH (20:53)
[2018-09-20] MEDS: Levemir Flexpen SUBQ SCH (20:54)
--- NOTE | 2018-09-20 22:00 | NUR ---
NURSE NOTES: REPOSITIONED, ORAL CARE WAS DONE.
[2018-09-21] VITALS (25 sets, daily range): BP systolic 81–127; BP diastolic 42–66
--- NOTE | 2018-09-21 00:24 | NUR ---
NURSE NOTES: PATIENT ASLEEP STATUS AT THIS TIME, WILL CONTINUE TO MONITOR.
[2018-09-21] MEDS: Vancomycin 1.25 GM in NS 275 ML IVPB SCH (00:52)
--- NOTE | 2018-09-21 02:02 | NUR ---
NURSE NOTES: NO PAIN OR DISTRESS NOTED AT THIS TIME.
--- NOTE | 2018-09-21 04:30 | NUR ---
NURSE NOTES: MORNING CARE AND ORAL CARE WAS DONE, LOOSED LEFT LOWER TEETH NOTED, WILL CONTINUE TO MONITOR.
[2018-09-21] MEDS: NovoLOG Insulin Flexpen SUBQ SCH ×4 (05:45→23:45)
--- NOTE | 2018-09-21 06:26 | NUR ---
NURSE NOTES: NO ACUTE DISTRESS NOTED AT THIS SHIFT.
--- NOTE | 2018-09-21 06:56 | NUR ---
HAND-OFF: Report given to Neeraj GILES RN.
--- NOTE | 2018-09-21 07:12 | NUR ---
NURSE NOTES: Received report from FELIX Haq. Patient asleep and open eyes to verbal without eye contact. ETT 7.0/22cm, vent setting AC 14, TV 500, FiO2 30% and Peep 5. Gtube intact ,clean and been held for weaning. Left upper arm PICC line intact and clean. No acute distress/SOB noted. kept HOB elevated. Call-light placed in easy reach. Will continue plan of care.
--- NOTE | 2018-09-21 07:30 | NUR ---
RESPIRATORY NOTE: Received pt on ordered vent settings. Pt airway is patent and secured. No resp distress noted. Suctioned pt prn. Vent alarms are on and audible. Vent is plugged into red outlet. BVM at bedside. Will monitor pt progress.
--- NOTE | 2018-09-21 07:30 | NUR ---
RESPIRATORY NOTE: Cuff Leak Test performed on AC 14rr, 500vt, 30% FIO2, +5 ordered vent settings. Pt exhaled tidal volume was 509 with cuff inflated. Exhaled tidal volume was 190 with cuff deflated. Significant leak was audible with cuff deflated.
[2018-09-21] MEDS: Ascorbic Acid 500mg tab ORAL SCH ×2 (08:43→18:03)
[2018-09-21] MEDS: Pantoprazole Inj IV SCH (08:43)
[2018-09-21] MEDS: Heparin 5000 units/ml inj SUBQ SCH ×2 (08:45→20:30)
[2018-09-21] MEDS: Docusate 100mg cap ORAL SCH ×2 (08:51→20:31)
--- NOTE | 2018-09-21 09:02 | NUR ---
NURSE NOTES: Due medications given and repositioned patient. Patient is on CPAP mode. Tolerating well at this time.
--- NOTE | 2018-09-21 09:07 | General Progress Note ---
Assessment/Plan Problem List: (1) DM (diabetes mellitus) ICD Codes: E11.9 - Type 2 diabetes mellitus without complications SNOMED: 58303623 (2) CVA, old, hemiparesis ICD Codes: I69.359 - Hemiplegia and hemiparesis following cerebral infarction affecting unspecified side; R65.20 - Severe sepsis without septic shock SNOMED: 123558573 (3) Severe sepsis ICD Codes: A41.9 - Sepsis, unspecified organism; R65.20 - Severe sepsis without septic shock SNOMED: 14474780 (4) Respiratory failure ICD Codes: J96.90 - Respiratory failure, unspecified, unspecified whether with hypoxia or hypercapnia SNOMED: 397138514 (5) Dehydration ICD Codes: E86.0 - Dehydration SNOMED: 87652849 (6) Large ischemic R MCA stroke (7) HTN (hypertension) ICD Codes: I10 - Essential (primary) hypertension SNOMED: 40234207 (8) G tube feedings ICD Codes: Z93.1 - Gastrostomy status SNOMED: 156291128, 412041516, 392109259 Status: unchanged Assessment/Plan: GTF>> on hold for possible extubation fu labs abx per ID respiratory care fu abd us>> neg had one large BM yesterday Subjective ROS Limited/Unobtainable: No Allergies: Coded Allergies: No Known Allergies (Unverified , 02/04/17) Objective Last 24 Hour Vital Signs Date Time Temp Pulse Resp B/P (MAP) Pulse Ox O2 Delivery O2 Flow Rate FiO2 09/21/18 08:00 Mechanical Ventilator 09/21/18 08:00 101.4 76 30 124/52 (76) 100 09/21/18 07:30 74 16 30 30 09/21/18 07:00 76 16 102/52 (69) 97 09/21/18 06:00 70 17 111/47 (68) 99 09/21/18 05:13 76 16 30 09/21/18 05:00 73 17 118/53 (74) 97 09/21/18 04:00 30 09/21/18 04:00 Mechanical Ventilator 09/21/18 04:00 98.5 68 14 93/47 (62) 96 09/21/18 03:26 77 09/21/18 03:00 74 15 127/56 (79) 97 09/21/18 03:00 74 16 30 8/9/19 02:00 80 17 114/52 (72) 98 09/21/18 01:02 72 16 30 09/21/18 01:00 63 14 119/66 (83) 97 09/21/18 00:00 99.2 80 16 100/47 (64) 95 09/21/18 00:00 Mechanical Ventilator 09/21/18 00:00 30 09/20/18 23:38 70 09/20/18 23:00 73 18 114/53 (73) 97 09/20/18 22:50 70 15 30 09/20/18 22:00 61 14 102/48 (66) 98 09/20/18 21:00 77 15 121/48 (72) 97 09/20/18 20:44 76 14 30 09/20/18 20:00 98.6 76 15 116/55 (75) 97 09/20/18 20:00 Mechanical Ventilator 09/20/18 20:00 30 09/20/18 19:25 65 14 30 09/20/18 19:24 66 09/20/18 19:00 63 16 128/70 (89) 99 09/20/18 18:00 64 14 112/49 (70) 98 09/20/18 17:19 72 14 30 09/20/18 17:00 98.5 73 14 100/44 (62) 97 09/20/18 16:14 98.5 09/20/18 16:00 101.0 81 15 107/47 (67) 99 09/20/18 16:00 Mechanical Ventilator 09/20/18 16:00 82 09/20/18 15:30 76 14 30 09/20/18 15:00 79 14 126/50 (75) 100 09/20/18 14:00 75 17 126/51 (76) 100 09/20/18 13:22 30 09/20/18 13:18 95 28 30 09/20/18 13:00 76 23 134/54 (80) 100 09/20/18 12:00 99.3 72 22 126/59 (81) 99 09/20/18 12:00 30 09/20/18 12:00 76 09/20/18 12:00 Mechanical Ventilator 09/20/18 11:12 68 22 30 09/20/18 11:00 70 22 131/54 (79) 99 09/20/18 10:00 68 23 120/53 (75) 100 09/20/18 09:10 80 23 30 09/20/18 09:10 30 09/20/18 09:10 97 Intake and Output 09/20/18 09/21/18 19:00 07:00 Intake Total 694.000 ml 1700 ml Output Total 1275 ml 705 ml Balance -581.000 ml 995 ml Intake Free Water 500 ml IV Total 444.000 ml 460 ml Tube Feeding 250 ml 710 ml Other 30 ml Output Urine Total 1275 ml 705 ml # Bowel Movements 1 2 Laboratory Tests 09/20/18 11:00: Vancomycin Level Trough 5.3 Height (Feet): 5 Height (Inches): 3.00 Weight (Pounds): 123 General Appearance: lethargic EENT: normal ENT inspection Neck: supple Cardiovascular: normal rate Respiratory/Chest: decreased breath sounds Abdomen: normal bowel sounds, non tender, soft Extremities: non-tender Ovi Brown MD Sep 21, 2018 09:07
--- NOTE | 2018-09-21 09:40 | NUR ---
NURSE NOTES: Put it back to AC mode. Will continue plan of care.
--- NOTE | 2018-09-21 10:30 | NUR ---
NURSE NOTES: Repositioned patient and provided oral care.
[2018-09-21] MEDS ORDERED: NS 275ml ONE (10:53)
[2018-09-21] MEDS ORDERED: Tubing IV Secondary IV ONE (10:53)
--- NOTE | 2018-09-21 12:02 | NUR ---
NURSE NOTES: Oral care provided and repositioned.
--- NOTE | 2018-09-21 12:42 | NUR ---
NURSE NOTES: Family members are at the bedside. Brother refused trach placement if pt needs.
--- NOTE | 2018-09-21 13:34 | Nephrology Progress Note ---
Assessment/Plan Problem List: (1) KEL (acute kidney injury) (2) Respiratory failure (3) Dehydration (4) Electrolyte imbalance (5) G tube feedings (6) Hypokalemia (7) CVA, old, hemiparesis (8) DM (diabetes mellitus) Plan antibiotics Pulm support correct lytes BS and BP check and monitor per consultants Subjective ROS Limited/Unobtainable: Yes Objective Objective Last 24 Hour Vital Signs Date Time Temp Pulse Resp B/P (MAP) Pulse Ox O2 Delivery O2 Flow Rate FiO2 09/21/18 12:00 Mechanical Ventilator 09/21/18 12:00 71 09/21/18 12:00 30 09/21/18 11:10 72 16 30 09/21/18 11:00 64 14 115/50 (71) 99 09/21/18 10:00 63 14 92/45 (61) 97 09/21/18 09:40 30 09/21/18 09:23 97 09/21/18 09:23 75 16 30 09/21/18 09:12 99.9 09/21/18 09:00 70 29 111/48 (69) 98 09/21/18 08:00 Mechanical Ventilator 09/21/18 08:00 101.4 76 30 124/52 (76) 100 09/21/18 08:00 69 09/21/18 08:00 30 09/21/18 07:30 74 16 30 30 09/21/18 07:00 76 16 102/52 (69) 97 09/21/18 06:00 70 17 111/47 (68) 99 09/21/18 05:13 76 16 30 09/21/18 05:00 73 17 118/53 (74) 97 09/21/18 04:00 30 09/21/18 04:00 Mechanical Ventilator 09/21/18 04:00 98.5 68 14 93/47 (62) 96 09/21/18 03:26 77 09/21/18 03:00 74 15 127/56 (79) 97 09/21/18 03:00 74 16 30 09/21/18 02:00 80 17 114/52 (72) 98 09/21/18 01:02 72 16 30 09/21/18 01:00 63 14 119/66 (83) 97 09/21/18 00:00 99.2 80 16 100/47 (64) 95 8/9/19 00:00 Mechanical Ventilator 09/21/18 00:00 30 09/20/18 23:38 70 09/20/18 23:00 73 18 114/53 (73) 97 09/20/18 22:50 70 15 30 09/20/18 22:00 61 14 102/48 (66) 98 09/20/18 21:00 77 15 121/48 (72) 97 09/20/18 20:44 76 14 30 09/20/18 20:00 98.6 76 15 116/55 (75) 97 09/20/18 20:00 Mechanical Ventilator 09/20/18 20:00 30 09/20/18 19:25 65 14 30 09/20/18 19:24 66 09/20/18 19:00 63 16 128/70 (89) 99 09/20/18 18:00 64 14 112/49 (70) 98 09/20/18 17:19 72 14 30 09/20/18 17:00 98.5 73 14 100/44 (62) 97 09/20/18 16:00 101.0 81 15 107/47 (67) 99 09/20/18 16:00 Mechanical Ventilator 09/20/18 16:00 82 09/20/18 15:30 76 14 30 09/20/18 15:00 79 14 126/50 (75) 100 09/20/18 14:00 75 17 126/51 (76) 100 Intake and Output 09/20/18 09/21/18 19:00 07:00 Intake Total 694.000 ml 1700 ml Output Total 1275 ml 705 ml Balance -581.000 ml 995 ml Intake Free Water 500 ml IV Total 444.000 ml 460 ml Tube Feeding 250 ml 710 ml Other 30 ml Output Urine Total 1275 ml 705 ml # Bowel Movements 1 2 Laboratory Tests 09/21/18 09:23: Arterial Blood pH 7.496H, Arterial Blood Partial Pressure CO2 31.6L, Arterial Blood Partial Pressure O2 241.0H, Arterial Blood HCO3 23.9, Arterial Blood Oxygen Saturation 99.0, Arterial Blood Base Excess 1.2, Ray Test Positive Height (Feet): 5 Height (Inches): 3.00 Weight (Pounds): 123 General Appearance: no apparent distress EENT: other - vented Cardiovascular: normal rate Respiratory/Chest: decreased breath sounds Abdomen: distended Dwayne Vernon MD Sep 21, 2018 13:34
--- NOTE | 2018-09-21 15:23 | General Progress Note ---
Assessment/Plan Status: unchanged Assessment/Plan: 77 y/o F with acute hypoxemic respiratory failure and sepsis admitted to ICU # Acute hypoxemic respiratory failure - suspect very low prognosis given neurologic status, fmaily does not want trache...terminal wean? - Intubated in the ER and ICU management by peeled potato inspector appreciated. - Serial ABG and CXR as needed. 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 - Nephrology follow up appreciated. 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 - R gaze preference noted. # Hypertension - Monitor and resume home medications not needed now due to hypotension. # History of dementia - Supportive care - SW to attempt to find family members # DVT and GI ppx # FULL CODE by records. - CM / SW follow up for family is needed. Subjective Date patient seen: Sep 21, 2018 Time patient seen: 12:00 ROS Limited/Unobtainable: Yes Allergies: Coded Allergies: No Known Allergies (Unverified , 02/04/17) Subjective abd us negative continued fevers tolerated cpap for two hours family does not want trache Objective Last 24 Hour Vital Signs Date Time Temp Pulse Resp B/P (MAP) Pulse Ox O2 Delivery O2 Flow Rate FiO2 09/21/18 15:20 74 18 30 09/21/18 15:00 76 15 120/52 (74) 99 09/21/18 15:00 76 15 120/52 (74) 99 09/21/18 14:00 74 14 118/54 (75) 100 09/21/18 14:00 74 14 118/54 (75) 100 09/21/18 13:25 76 16 30 09/21/18 13:00 74 15 102/45 (64) 98 09/21/18 12:00 Mechanical Ventilator 09/21/18 12:00 71 09/21/18 12:00 99.3 83 14 117/54 (75) 97 09/21/18 12:00 30 09/21/18 11:10 72 16 30 09/21/18 11:00 64 14 115/50 (71) 99 09/21/18 10:00 63 14 92/45 (61) 97 09/21/18 09:40 30 09/21/18 09:30 99.5 63 14 92/45 (61) 97 09/21/18 09:23 97 09/21/18 09:23 75 16 30 09/21/18 09:12 99.9 09/21/18 09:00 70 29 111/48 (69) 98 09/21/18 08:00 Mechanical Ventilator 09/21/18 08:00 101.4 76 30 124/52 (76) 100 09/21/18 08:00 69 09/21/18 08:00 30 09/21/18 07:30 74 16 30 30 09/21/18 07:00 76 16 102/52 (69) 97 09/21/18 06:00 70 17 111/47 (68) 99 09/21/18 05:13 76 16 30 09/21/18 05:00 73 17 118/53 (74) 97 09/21/18 04:00 30 09/21/18 04:00 Mechanical Ventilator 09/21/18 04:00 98.5 68 14 93/47 (62) 96 09/21/18 03:26 77 09/21/18 03:00 74 15 127/56 (79) 97 09/21/18 03:00 74 16 30 09/21/18 02:00 80 17 114/52 (72) 98 09/21/18 01:02 72 16 30 09/21/18 01:00 63 14 119/66 (83) 97 09/21/18 00:00 99.2 80 16 100/47 (64) 95 09/21/18 00:00 Mechanical Ventilator 09/21/18 00:00 30 8/8/19 23:38 70 09/20/18 23:00 73 18 114/53 (73) 97 09/20/18 22:50 70 15 30 09/20/18 22:00 61 14 102/48 (66) 98 09/20/18 21:00 77 15 121/48 (72) 97 09/20/18 20:44 76 14 30 09/20/18 20:00 98.6 76 15 116/55 (75) 97 09/20/18 20:00 Mechanical Ventilator 09/20/18 20:00 30 09/20/18 19:25 65 14 30 09/20/18 19:24 66 09/20/18 19:00 63 16 128/70 (89) 99 09/20/18 18:00 64 14 112/49 (70) 98 09/20/18 17:19 72 14 30 09/20/18 17:00 98.5 73 14 100/44 (62) 97 09/20/18 16:00 101.0 81 15 107/47 (67) 99 09/20/18 16:00 Mechanical Ventilator 09/20/18 16:00 82 09/20/18 15:30 76 14 30 Intake and Output 09/20/18 09/21/18 19:00 07:00 Intake Total 694.000 ml 1700 ml Output Total 1275 ml 705 ml Balance -581.000 ml 995 ml Intake Free Water 500 ml IV Total 444.000 ml 460 ml Tube Feeding 250 ml 710 ml Other 30 ml Output Urine Total 1275 ml 705 ml # Bowel Movements 1 2 Laboratory Tests 09/21/18 09:23: Arterial Blood pH 7.496H, Arterial Blood Partial Pressure CO2 31.6L, Arterial Blood Partial Pressure O2 241.0H, Arterial Blood HCO3 23.9, Arterial Blood Oxygen Saturation 99.0, Arterial Blood Base Excess 1.2, Ray Test Positive Height (Feet): 5 Height (Inches): 3.00 Weight (Pounds): 123 Objective GEN: intubated, eyes open, right side gaze preference HEENT: pupils 8mm and sluggish CV: RRR, no M, R, G, no jvd RESP: CTAB, no w/r/c ABD: normal bowel sounds, soft, non tender EXT: normal muscle tone, no tenderness NEURO: no changes, does not withdraw from pain, blinks to hand toward face, no tracking Desiree Helm DO Sep 21, 2018 15:23
--- NOTE | 2018-09-21 15:32 | NUR ---
RD ASSESSMENT & RECOMMENDATIONS SEE CARE ACTIVITY FOR COMPLETE ASSESSMENT DAILY ESTIMATED NEEDS: Needs based on Critical care, sepsis, wound, DM 53.6kg 25-32 kcals/kg 8662-7483 total kcals 1.25-2 g protein/kg 67-107 g total protein 25-32ml/kcal mL/kg 9226-0041 total fluid mLs NUTRITION DIAGNOSIS: 1) Swallowing difficulty R/T dysphagia, CVA as evidenced by PEG dependent, now orally intubated. 2) Increased kcal and pro needs r/t sepsis and wound healing as evidenced by elev BG and POC (200-400's-> 153 217 291 202 143, elev WBC (15.7 -> now wnl), febrile, elev Na (148-> wnl), sacral wound/ unstageable per MD. CURRENT TF:Glucerna 1.2 @60 ml/hr x 24 hrs ENTERAL NUTRITION RECOMMENDATIONS: Glucerna 1.2 @55ml/hr x24 hrs to provide 1320ml, 1584 kcal, 79g prot, 1063ml free H2O - Maintain Glucerna 1.2 -> Rec to REDUCE RATE to goal of 55ml/hr (meets 100% est kcal and prot needs, for improved BG control) - HOB over 30 degrees - Flush per MD-> 150q6 for added 600ml free fluid per day (1063ml from TF + 600ml flushes= 1663ml free fluid per day). ADDITIONAL RECOMMENDATIONS: 1) Monitor hydration status -> now improved 2) Obtain an accurate calibrated bed scale wt 3) Lytes daily on TF/ replete as needed 4) Monitor BGs closely, need to increase Levemir (BGs mostly >150) 5) Sacral wound: add AYDEE BID via PEG daily : continue Vit C 250mg BID daily via GT .
--- NOTE | 2018-09-21 15:50 | NUR ---
NURSE NOTES: Seen by Dr. Sandhu and assessed.
--- NOTE | 2018-09-21 16:21 | Hematology/Onc Progress Note ---
Assessment/Plan Assessment/Plan Assessment and Recs: # Thrombocytopenia - potential causes multifactorial, evaluate liver and viral etiologies to begin, also could be related to underlying medications patient has received. --> Hep panel and HIV show neg results --> US abd shows no cirrhosis or hsm --> Peripheral smear ordered to evaluate for blasts /schistocytes --> abx and other meds have been reviewed --> ok for ppx if plt >50k w/ either heparin or lovenox --> Transfuse if Plt < 20k and fever, or if Plt < 10k without fever --> trend plts --> 182k-->160-->140-->119-->140k-->200k --> meds reviewed and may be 2/2 vanc and amikacin but at this time ok to continue since borderline # Anemia of iron deficiency, on iron now --> Anemia workup has been ordered, rule out gi bleed, shows AID --> No evidence of hemolysis is noted, peripheral smear has been reviewed --> Hgb goal >7. Transfuse prn. --> Iron to continue --> Medications have been reviewed --> hgb 12-->10.7-->11.3 # Dysphagia and now s/p nG tube feedings --> as per gi, ng tube feedsings # Respo failure on vent --> per pulm/cc --> recs reviewed # Dehydration --> on ivfs, currently off per renal # Sepsis --> abx per id # DVT ppx with heparin sq The timing of this note does not necessarily reflect the time of the patient was seen. GREATLY APPRECIATE CONSULTATION. Subjective Cardiovascular: Denies: no symptoms, chest pain, edema, irregular heart rate, lightheadedness, palpitations, syncope, other Gastrointestinal/Abdominal: Denies: no symptoms, abdomen distended, abdominal pain, black stools, tarry stools, blood in stool, constipated, diarrhea, difficulty swallowing, nausea, poor appetite, poor fluid intake, rectal bleeding , vomiting, other Genitourinary: Denies: no symptoms, burning, discharge, frequency, flank pain, hematuria, incontinence, pain, urgency, other Hematologic/Lymphatic: Denies: no symptoms, anemia, easy bleeding, easy bruising, adenopathy, other Allergies: Coded Allergies: No Known Allergies (Unverified , 12/23/17) Subjective 09/18: is on iron, as well as broad spectrum abx, labs reviewed 09/19: no events to report, angie Robertson rn, tfs ongoing via ng, on vent to wean protocol 09/20: remains intubated, unchanged 09/21: in icu, no major changes, no f/c, no night sweats Objective Objective Current Medications Medications (Trade) Dose Ordered Sig/Wayne Route PRN Reason Start Time Stop Time Status Last Admin Dose Admin Acetaminophen (Tylenol) 650 mg Q4H PRN ORAL FEVER 09/14/18 12:45 10/14/18 12:44 09/21/18 08:42 Acetylcysteine (Mucomyst) 100 mg Q4HRT N 09/21/18 19:00 10/21/18 18:59 Albuterol/ Ipratropium (Albuterol/ Ipratropium) 3 ml Q4HRT N 09/21/18 19:00 09/26/18 18:59 Artificial Tears (Akwa-Tears) 1 drop Q4H PRN BOTH EYES Dry Eyes 09/18/18 12:30 10/18/18 12:29 Ascorbic Acid (Vitamin C) 250 mg TWICE A DAY ORAL 09/18/18 18:00 10/18/18 17:59 09/21/18 08:43 Bisacodyl (Dulcolax) 10 mg DAILYPRN PRN RECTAL Constipation 09/14/18 12:45 10/14/18 12:44 Chlorhexidine Gluconate (Kamla-Hex 2%) 1 applic DAILY@2000 TOPIC 09/17/18 20:00 10/17/18 19:59 09/20/18 19:38 Dextrose (Dextrose 50%) 25 ml Q30M PRN IV Hypoglycemia 09/14/18 12:45 10/14/18 12:44 Dextrose (Dextrose 50%) 50 ml Q30M PRN IV Hypoglycemia 09/14/18 12:45 10/14/18 12:44 Diphenhydramine HCl (Benadryl) 25 mg Q6H PRN ORAL Itching/Pruritis 09/14/18 12:45 10/14/18 12:44 Docusate Sodium (Colace) 100 mg EVERY 12 HOURS ORAL 09/14/18 21:00 10/14/18 20:59 09/20/18 20:53 Furosemide (Lasix) 20 mg DAILY ORAL 09/22/18 09:00 10/22/18 08:59 Furosemide (Lasix) 20 mg ONCE ORAL 09/21/18 16:15 09/21/18 17:15 Heparin Sodium (Porcine) (Heparin 5000 units/ml) 5,000 units EVERY 12 HOURS SUBQ 09/14/18 21:00 10/14/18 20:59 09/21/18 08:45 Insulin Aspart (NovoLOG) Q6HR SUBQ 09/14/18 16:00 10/14/18 15:59 09/21/18 11:36 Insulin Detemir (Levemir) 12 units BEDTIME SUBQ 09/17/18 21:00 10/17/18 20:59 09/20/18 20:54 Iron Sucrose 100 mg/Sodium Chloride 60 ml @ 240 mls/hr QHS IV 09/18/18 21:00 09/22/18 21:14 09/20/18 20:53 Magnesium Hydroxide (Mom) 30 ml HSPRN PRN ORAL Constipation 09/14/18 12:45 10/14/18 12:44 Metoclopramide HCl (Reglan) 10 mg Q8H PRN IVP Nausea & Vomiting 09/17/18 12:30 10/17/18 12:29 Ondansetron HCl (Zofran) 4 mg Q6H PRN IVP Nausea & Vomiting 09/14/18 12:45 10/14/18 12:44 09/17/18 07:41 Pantoprazole (Protonix) 40 mg DAILY IV 09/15/18 09:00 10/15/18 08:59 09/21/18 08:43 Piperacillin Sod/ Tazobactam Sod 3.375 gm/Dextrose 100 ml @ 25 mls/hr EVERY 8 HOURS IVPB 09/21/18 22:00 09/26/18 21:59 Vancomycin HCl (Vanco rx to dose) 1 ea DAILY PRN MISC Per rx protocol 09/14/18 12:45 10/14/18 12:44 Vancomycin HCl 1.25 gm/Sodium Chloride 275 ml @ 183.33 mls/ hr Q24H IVPB 09/21/18 01:00 09/26/18 00:59 09/21/18 00:52 Last 24 Hour Vital Signs Date Time Temp Pulse Resp B/P (MAP) Pulse Ox O2 Delivery O2 Flow Rate FiO2 09/21/18 15:20 74 18 30 09/21/18 15:00 76 15 120/52 (74) 99 09/21/18 15:00 76 15 120/52 (74) 99 09/21/18 14:00 74 14 118/54 (75) 100 09/21/18 14:00 74 14 118/54 (75) 100 09/21/18 13:25 76 16 30 09/21/18 13:00 74 15 102/45 (64) 98 09/21/18 12:00 Mechanical Ventilator 09/21/18 12:00 71 09/21/18 12:00 99.3 83 14 117/54 (75) 97 09/21/18 12:00 30 09/21/18 11:10 72 16 30 09/21/18 11:00 64 14 115/50 (71) 99 09/21/18 10:00 63 14 92/45 (61) 97 09/21/18 09:40 30 09/21/18 09:30 99.5 63 14 92/45 (61) 97 09/21/18 09:23 97 09/21/18 09:23 75 16 30 09/21/18 09:12 99.9 09/21/18 09:00 70 29 111/48 (69) 98 09/21/18 08:00 Mechanical Ventilator 09/21/18 08:00 101.4 76 30 124/52 (76) 100 09/21/18 08:00 69 09/21/18 08:00 30 09/21/18 07:30 74 16 30 30 09/21/18 07:00 76 16 102/52 (69) 97 09/21/18 06:00 70 17 111/47 (68) 99 09/21/18 05:13 76 16 30 09/21/18 05:00 73 17 118/53 (74) 97 09/21/18 04:00 30 09/21/18 04:00 Mechanical Ventilator 09/21/18 04:00 98.5 68 14 93/47 (62) 96 09/21/18 03:26 77 09/21/18 03:00 74 15 127/56 (79) 97 09/21/18 03:00 74 16 30 09/21/18 02:00 80 17 114/52 (72) 98 09/21/18 01:02 72 16 30 09/21/18 01:00 63 14 119/66 (83) 97 09/21/18 00:00 99.2 80 16 100/47 (64) 95 09/21/18 00:00 Mechanical Ventilator 09/21/18 00:00 30 09/20/18 23:38 70 09/20/18 23:00 73 18 114/53 (73) 97 09/20/18 22:50 70 15 30 09/20/18 22:00 61 14 102/48 (66) 98 09/20/18 21:00 77 15 121/48 (72) 97 09/20/18 20:44 76 14 30 09/20/18 20:00 98.6 76 15 116/55 (75) 97 09/20/18 20:00 Mechanical Ventilator 09/20/18 20:00 30 09/20/18 19:25 65 14 30 09/20/18 19:24 66 09/20/18 19:00 63 16 128/70 (89) 99 09/20/18 18:00 64 14 112/49 (70) 98 09/20/18 17:19 72 14 30 09/20/18 17:00 98.5 73 14 100/44 (62) 97 09/20/18 16:00 101.0 81 15 107/47 (67) 99 09/20/18 16:00 Mechanical Ventilator 09/20/18 16:00 82 09/20/18 15:30 76 14 30 09/20/18 15:00 79 14 126/50 (75) 100 09/20/18 14:00 75 17 126/51 (76) 100 09/20/18 13:22 30 09/20/18 13:18 95 28 30 09/20/18 13:00 76 23 134/54 (80) 100 09/20/18 12:00 99.3 72 22 126/59 (81) 99 09/20/18 12:00 30 09/20/18 12:00 76 09/20/18 12:00 Mechanical Ventilator 09/20/18 11:12 68 22 30 09/20/18 11:00 70 22 131/54 (79) 99 09/20/18 10:00 68 23 120/53 (75) 100 09/20/18 09:10 80 23 30 09/20/18 09:10 30 09/20/18 09:10 97 09/20/18 09:00 69 14 109/47 (67) 97 09/20/18 08:03 67 14 30 09/20/18 08:00 30 09/20/18 08:00 98.5 72 16 149/93 (111) 97 09/20/18 08:00 Mechanical Ventilator 09/20/18 08:00 68 09/20/18 07:00 70 14 123/57 (79) 97 09/20/18 06:00 60 14 102/52 (69) 99 09/20/18 05:00 61 14 129/71 (90) 100 09/20/18 04:52 71 16 30 09/20/18 04:00 30 09/20/18 04:00 Mechanical Ventilator 09/20/18 04:00 98.7 69 14 129/57 (81) 100 09/20/18 03:31 60 09/20/18 03:00 75 16 157/67 (97) 100 09/20/18 02:00 67 14 94/43 (60) 100 09/20/18 01:00 64 14 103/49 (67) 100 09/20/18 00:47 69 14 30 09/20/18 00:00 Mechanical Ventilator 09/20/18 00:00 98.7 69 14 128/57 (80) 100 09/20/18 00:00 30 09/19/18 23:13 63 09/19/18 23:00 60 14 124/52 (76) 100 09/19/18 22:45 66 14 30 09/19/18 22:00 73 17 126/44 (71) 99 09/19/18 21:00 95 16 30 09/19/18 21:00 64 15 93/47 (62) 99 09/19/18 20:06 60 09/19/18 20:00 Mechanical Ventilator 09/19/18 20:00 99.1 62 14 91/44 (60) 99 09/19/18 20:00 30 09/19/18 19:07 60 14 30 09/19/18 19:07 Mechanical Ventilator 30 09/19/18 19:07 Mechanical Ventilator 30 09/19/18 19:00 69 18 128/53 (78) 100 09/19/18 18:00 63 14 100/39 (59) 99 09/19/18 17:36 62 14 30 09/19/18 17:00 99.1 65 14 119/49 (72) 100 Intake and Output 09/20/18 09/21/18 19:00 07:00 Intake Total 694.000 ml 1700 ml Output Total 1275 ml 705 ml Balance -581.000 ml 995 ml Intake Free Water 500 ml IV Total 444.000 ml 460 ml Tube Feeding 250 ml 710 ml Other 30 ml Output Urine Total 1275 ml 705 ml # Bowel Movements 1 2 Labs Test 09/19/18 04:15 09/20/18 04:00 09/20/18 11:00 09/21/18 09:23 White Blood Count 7.2 K/UL (4.8-10.8) 7.6 K/UL (4.8-10.8) Red Blood Count 3.47 M/UL (4.20-5.40) 3.63 M/UL (4.20-5.40) Hemoglobin 10.7 G/DL (12.0-16.0) 11.3 G/DL (12.0-16.0) Hematocrit 33.0 % (37.0-47.0) 34.0 % (37.0-47.0) Mean Corpuscular Volume 95 FL (80-99) 94 FL (80-99) Mean Corpuscular Hemoglobin 30.8 PG (27.0-31.0) 31.0 PG (27.0-31.0) Mean Corpuscular Hemoglobin Concent 32.4 G/DL (32.0-36.0) 33.1 G/DL (32.0-36.0) Red Cell Distribution Width 13.5 % (11.6-14.8) 13.3 % (11.6-14.8) Platelet Count 200 K/UL (150-450) 293 K/UL (150-450) Mean Platelet Volume 9.0 FL (6.5-10.1) 7.6 FL (6.5-10.1) Neutrophils (%) (Auto) 83.4 % (45.0-75.0) 78.0 % (45.0-75.0) Lymphocytes (%) (Auto) 9.0 % (20.0-45.0) 14.3 % (20.0-45.0) Monocytes (%) (Auto) 5.5 % (1.0-10.0) 5.0 % (1.0-10.0) Eosinophils (%) (Auto) 1.4 % (0.0-3.0) 1.8 % (0.0-3.0) Basophils (%) (Auto) 0.6 % (0.0-2.0) 0.9 % (0.0-2.0) Sodium Level 141 MMOL/L (136-145) 142 MMOL/L (136-145) Potassium Level 3.2 MMOL/L (3.5-5.1) 3.9 MMOL/L (3.5-5.1) Chloride Level 107 MMOL/L (98-107) 108 MMOL/L (98-107) Carbon Dioxide Level 26 MMOL/L (21-32) 27 MMOL/L (21-32) Anion Gap 8 mmol/L (5-15) 7 mmol/L (5-15) Blood Urea Nitrogen 7 mg/dL (7-18) 6 mg/dL (7-18) Creatinine 0.6 MG/DL (0.55-1.30) 0.5 MG/DL (0.55-1.30) Estimat Glomerular Filtration Rate mL/min (>60) mL/min (>60) Glucose Level 162 MG/DL (74-106) 167 MG/DL (74-106) Calcium Level 8.3 MG/DL (8.5-10.1) 8.8 MG/DL (8.5-10.1) Total Bilirubin 0.3 MG/DL (0.2-1.0) 0.3 MG/DL (0.2-1.0) Aspartate Amino Transf (AST/SGOT) 20 U/L (15-37) 16 U/L (15-37) Alanine Aminotransferase (ALT/SGPT) 13 U/L (12-78) 13 U/L (12-78) Alkaline Phosphatase 96 U/L (46-116) 105 U/L (46-116) Total Protein 5.7 G/DL (6.4-8.2) 6.3 G/DL (6.4-8.2) Albumin 1.3 G/DL (3.4-5.0) 1.4 G/DL (3.4-5.0) Globulin 4.4 g/dL 4.9 g/dL Albumin/Globulin Ratio 0.3 (1.0-2.7) 0.3 (1.0-2.7) Lipase 81 U/L (73-393) Uric Acid 2.2 MG/DL (2.6-7.2) Phosphorus Level 3.3 MG/DL (2.5-4.9) Magnesium Level 1.9 MG/DL (1.8-2.4) C-Reactive Protein, Quantitative 9.9 mg/dL (0.00-0.90) Pro-B-Type Natriuretic Peptide 563 pg/mL (0-125) Folate 24.7 NG/ML (8.6-58.9) Cortisol AM Sample 12.2 UG/DL Vancomycin Level Trough 5.3 ug/mL (5.0-12.0) Arterial Blood pH 7.496 (7.350-7.450) Arterial Blood Partial Pressure CO2 31.6 mmHg (35.0-45.0) Arterial Blood Partial Pressure O2 241.0 mmHg (75.0-100.0) Arterial Blood HCO3 23.9 mmol/L (22.0-26.0) Arterial Blood Oxygen Saturation 99.0 % (95-100) Arterial Blood Base Excess 1.2 (-2-2) Ray Test Positive Height (Feet): 5 Height (Inches): 3.00 Weight (Pounds): 123 Objective Physical Exam: Vitals: reviewed General Appearance: NAD HEENT: normocephalic, atraumatic ++ogt Chest: normal breath sounds bilaterally ++ vent Cardiovascular: normal peripheral pulses, normal rate Abdomen: normal bowel sounds, soft, nontender ++ gtube Extremities: normal range of motion Mateo Wei MD Sep 21, 2018 16:21
--- NOTE | 2018-09-21 16:23 | Infectious Diseases Prog Note ---
Assessment/Plan Assessment/Plan ASSESSMENT AND PLAN: 1. sepsis, mrsa pna, klebsiella pneumonia, aspiration risk, leukocytosis, fevers , sirs, ua le neg, mrsa colonization - change to meropenem and vancomycin since still febrile - f/u on labs and chest x-ray - weaning per pulmonary medicine - recheck cultures - patient still febrile - monitor clinically, icu supportive care, vent care 2. ICU care. 3. Skin care protocol. 4. History of CVA and TIA, and aspiration risk. 5. Dementia. 6. Hypertension. 7. Blood pressure treatment per primary. 8. Acute kidney injury. 9. Weakness. 10. Hemiplegia. 11. Dysphagia, G-tube. 12. Encephalopathy. 13. No known drug allergies. 14. Social history is negative. 15. Family history is noncontributory. 16. MAR was noted. 17. Case discussed with RN. 18. Continue treatment per primary consultants. 19. Notes and records were noted. Orders were entered. 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, vre colonization Subjective Constitutional: Reports: fever, other - sob, on vent, + fevers, no pressors HEENT: Reports: congestion, other - intubated Respiratory: Reports: shortness of breath, other - on vent Cardiovascular: Reports: other - no pressors Gastrointestinal/Abdominal: Denies: nausea, vomiting, diarrhea Genitourinary: Reports: other - + taylor Neurologic: Reports: other - weak, lethargic Psychiatric: Reports: other - NA Skin: Denies: rash Hematologic: Denies: bleeding Musculoskeletal: Reports: other - NA Allergies: Coded Allergies: No Known Allergies (Unverified , 02/04/17) Objective Vital Signs Last 24 Hour Vital Signs Date Time Temp Pulse Resp B/P (MAP) Pulse Ox O2 Delivery O2 Flow Rate FiO2 09/21/18 15:20 74 18 30 09/21/18 15:00 76 15 120/52 (74) 99 09/21/18 15:00 76 15 120/52 (74) 99 09/21/18 14:00 74 14 118/54 (75) 100 09/21/18 14:00 74 14 118/54 (75) 100 09/21/18 13:25 76 16 30 09/21/18 13:00 74 15 102/45 (64) 98 09/21/18 12:00 Mechanical Ventilator 09/21/18 12:00 71 09/21/18 12:00 99.3 83 14 117/54 (75) 97 09/21/18 12:00 30 09/21/18 11:10 72 16 30 09/21/18 11:00 64 14 115/50 (71) 99 09/21/18 10:00 63 14 92/45 (61) 97 09/21/18 09:40 30 09/21/18 09:30 99.5 63 14 92/45 (61) 97 09/21/18 09:23 97 09/21/18 09:23 75 16 30 09/21/18 09:12 99.9 09/21/18 09:00 70 29 111/48 (69) 98 09/21/18 08:00 Mechanical Ventilator 09/21/18 08:00 101.4 76 30 124/52 (76) 100 09/21/18 08:00 69 09/21/18 08:00 30 09/21/18 07:30 74 16 30 30 09/21/18 07:00 76 16 102/52 (69) 97 09/21/18 06:00 70 17 111/47 (68) 99 09/21/18 05:13 76 16 30 09/21/18 05:00 73 17 118/53 (74) 97 09/21/18 04:00 30 09/21/18 04:00 Mechanical Ventilator 09/21/18 04:00 98.5 68 14 93/47 (62) 96 09/21/18 03:26 77 09/21/18 03:00 74 15 127/56 (79) 97 09/21/18 03:00 74 16 30 09/21/18 02:00 80 17 114/52 (72) 98 09/21/18 01:02 72 16 30 09/21/18 01:00 63 14 119/66 (83) 97 09/21/18 00:00 99.2 80 16 100/47 (64) 95 09/21/18 00:00 Mechanical Ventilator 09/21/18 00:00 30 09/20/18 23:38 70 09/20/18 23:00 73 18 114/53 (73) 97 09/20/18 22:50 70 15 30 09/20/18 22:00 61 14 102/48 (66) 98 09/20/18 21:00 77 15 121/48 (72) 97 09/20/18 20:44 76 14 30 09/20/18 20:00 98.6 76 15 116/55 (75) 97 09/20/18 20:00 Mechanical Ventilator 09/20/18 20:00 30 09/20/18 19:25 65 14 30 09/20/18 19:24 66 09/20/18 19:00 63 16 128/70 (89) 99 09/20/18 18:00 64 14 112/49 (70) 98 09/20/18 17:19 72 14 30 09/20/18 17:00 98.5 73 14 100/44 (62) 97 Height (Feet): 5 Height (Inches): 3.00 Weight (Pounds): 123 General Appearance: other - lethargic, weak, on vent, no pressors HEENT: normocephalic, atraumatic, anicteric, no JVD, other - oral - intubated Respiratory/Chest: crackles/rales, rhonchi - bilaterally Cardiovascular: normal rate, regular rhythm, no gallop/murmur, no JVD Abdomen: normal bowel sounds, soft, non tender, no organomegaly, non distended Genitourinary: other - + taylor - urine slt cloudy Extremities: no cyanosis Skin: no rash Neurologic/Psychiatric: other - weak, on vent, poorly responsive Lymphatic: no neck adenopathy Musculoskeletal: no effusion Objective Chest x-ray - 09/15/18 - COMPARISON: Chest x-ray, 09/14/18 933 FINDINGS: Lungs: Bibasilar lung atelectasis/airspace disease. Mild interstitial prominence. Pleural space: Small right pleural effusion, slightly worse. Improved small left pleural effusion. No pneumothorax. Heart: Unremarkable. No cardiomegaly. Mediastinum: Unremarkable. Bones/joints: Unremarkable. Tubes, lines and devices: Stable endotracheal tube. 09/18/18 - Chest x-ray - IMPRESSION: 1. Stable endotracheal tube. 2. Bibasilar lung atelectasis/airspace disease. Mild interstitial prominence. 3. Small right pleural effusion, slightly worse. Improved small left pleural effusion. Comparison: 09/15/2018 A single view chest radiograph was obtained. Findings: Endotracheal tube remains in good position. Pulmonary vascular congestion is present. Basilar atelectasis noted. Small bilateral pleural effusions are not excluded. IMPRESSION: Pulmonary vascular congestion Microbiology Date/Time Source Procedure Growth Status 09/14/18 08:30 Blood Blood Culture - Final NO GROWTH AFTER 5 DAYS Complete 09/17/18 13:10 Sputum Induced Gram Stain - Final Complete 09/17/18 13:10 Sputum Culture - Final Klebsiella Ornithinolytica Staphylococcus Aureus - Mrsa Complete 09/16/18 16:15 Stool Clostridium difficile Toxin Assay - Final Complete 09/14/18 09:00 Rectum VRE Culture - Final Enterococcus Faecium - Vre Complete Labs Test 09/19/18 04:15 09/20/18 04:00 09/20/18 11:00 09/21/18 09:23 White Blood Count 7.2 K/UL (4.8-10.8) 7.6 K/UL (4.8-10.8) Red Blood Count 3.47 M/UL (4.20-5.40) 3.63 M/UL (4.20-5.40) Hemoglobin 10.7 G/DL (12.0-16.0) 11.3 G/DL (12.0-16.0) Hematocrit 33.0 % (37.0-47.0) 34.0 % (37.0-47.0) Mean Corpuscular Volume 95 FL (80-99) 94 FL (80-99) Mean Corpuscular Hemoglobin 30.8 PG (27.0-31.0) 31.0 PG (27.0-31.0) Mean Corpuscular Hemoglobin Concent 32.4 G/DL (32.0-36.0) 33.1 G/DL (32.0-36.0) Red Cell Distribution Width 13.5 % (11.6-14.8) 13.3 % (11.6-14.8) Platelet Count 200 K/UL (150-450) 293 K/UL (150-450) Mean Platelet Volume 9.0 FL (6.5-10.1) 7.6 FL (6.5-10.1) Neutrophils (%) (Auto) 83.4 % (45.0-75.0) 78.0 % (45.0-75.0) Lymphocytes (%) (Auto) 9.0 % (20.0-45.0) 14.3 % (20.0-45.0) Monocytes (%) (Auto) 5.5 % (1.0-10.0) 5.0 % (1.0-10.0) Eosinophils (%) (Auto) 1.4 % (0.0-3.0) 1.8 % (0.0-3.0) Basophils (%) (Auto) 0.6 % (0.0-2.0) 0.9 % (0.0-2.0) Sodium Level 141 MMOL/L (136-145) 142 MMOL/L (136-145) Potassium Level 3.2 MMOL/L (3.5-5.1) 3.9 MMOL/L (3.5-5.1) Chloride Level 107 MMOL/L (98-107) 108 MMOL/L (98-107) Carbon Dioxide Level 26 MMOL/L (21-32) 27 MMOL/L (21-32) Anion Gap 8 mmol/L (5-15) 7 mmol/L (5-15) Blood Urea Nitrogen 7 mg/dL (7-18) 6 mg/dL (7-18) Creatinine 0.6 MG/DL (0.55-1.30) 0.5 MG/DL (0.55-1.30) Estimat Glomerular Filtration Rate mL/min (>60) mL/min (>60) Glucose Level 162 MG/DL (74-106) 167 MG/DL (74-106) Calcium Level 8.3 MG/DL (8.5-10.1) 8.8 MG/DL (8.5-10.1) Total Bilirubin 0.3 MG/DL (0.2-1.0) 0.3 MG/DL (0.2-1.0) Aspartate Amino Transf (AST/SGOT) 20 U/L (15-37) 16 U/L (15-37) Alanine Aminotransferase (ALT/SGPT) 13 U/L (12-78) 13 U/L (12-78) Alkaline Phosphatase 96 U/L (46-116) 105 U/L (46-116) Total Protein 5.7 G/DL (6.4-8.2) 6.3 G/DL (6.4-8.2) Albumin 1.3 G/DL (3.4-5.0) 1.4 G/DL (3.4-5.0) Globulin 4.4 g/dL 4.9 g/dL Albumin/Globulin Ratio 0.3 (1.0-2.7) 0.3 (1.0-2.7) Lipase 81 U/L (73-393) Uric Acid 2.2 MG/DL (2.6-7.2) Phosphorus Level 3.3 MG/DL (2.5-4.9) Magnesium Level 1.9 MG/DL (1.8-2.4) C-Reactive Protein, Quantitative 9.9 mg/dL (0.00-0.90) Pro-B-Type Natriuretic Peptide 563 pg/mL (0-125) Folate 24.7 NG/ML (8.6-58.9) Cortisol AM Sample 12.2 UG/DL Vancomycin Level Trough 5.3 ug/mL (5.0-12.0) Arterial Blood pH 7.496 (7.350-7.450) Arterial Blood Partial Pressure CO2 31.6 mmHg (35.0-45.0) Arterial Blood Partial Pressure O2 241.0 mmHg (75.0-100.0) Arterial Blood HCO3 23.9 mmol/L (22.0-26.0) Arterial Blood Oxygen Saturation 99.0 % (95-100) Arterial Blood Base Excess 1.2 (-2-2) Ray Test Positive Laboratory Tests Test 09/21/18 09:23 Arterial Blood pH 7.496 (7.350-7.450) Arterial Blood Partial Pressure CO2 31.6 mmHg (35.0-45.0) L Arterial Blood Partial Pressure O2 241.0 mmHg (75.0-100.0) H Arterial Blood HCO3 23.9 mmol/L (22.0-26.0) Arterial Blood Oxygen Saturation 99.0 % (95-100) Arterial Blood Base Excess 1.2 (-2-2) Ray Test Positive Current Medications Medications (Trade) Dose Ordered Sig/Wayne Route PRN Reason Start Time Stop Time Status Last Admin Dose Admin Acetaminophen (Tylenol) 650 mg Q4H PRN ORAL FEVER 09/14/18 12:45 10/14/18 12:44 09/21/18 08:42 Acetylcysteine (Mucomyst) 100 mg Q4HRT HHN 09/21/18 19:00 10/21/18 18:59 Albuterol/ Ipratropium (Albuterol/ Ipratropium) 3 ml Q4HRT HHN 09/21/18 19:00 09/26/18 18:59 Artificial Tears (Akwa-Tears) 1 drop Q4H PRN BOTH EYES Dry Eyes 09/18/18 12:30 10/18/18 12:29 Ascorbic Acid (Vitamin C) 250 mg TWICE A DAY ORAL 09/18/18 18:00 10/18/18 17:59 09/21/18 08:43 Bisacodyl (Dulcolax) 10 mg DAILYPRN PRN RECTAL Constipation 09/14/18 12:45 10/14/18 12:44 Chlorhexidine Gluconate (Kamla-Hex 2%) 1 applic DAILY@2000 TOPIC 09/17/18 20:00 10/17/18 19:59 09/20/18 19:38 Dextrose (Dextrose 50%) 25 ml Q30M PRN IV Hypoglycemia 09/14/18 12:45 10/14/18 12:44 Dextrose (Dextrose 50%) 50 ml Q30M PRN IV Hypoglycemia 09/14/18 12:45 10/14/18 12:44 Diphenhydramine HCl (Benadryl) 25 mg Q6H PRN ORAL Itching/Pruritis 09/14/18 12:45 10/14/18 12:44 Docusate Sodium (Colace) 100 mg EVERY 12 HOURS ORAL 09/14/18 21:00 10/14/18 20:59 09/20/18 20:53 Furosemide (Lasix) 20 mg DAILY ORAL 09/22/18 09:00 10/22/18 08:59 Furosemide (Lasix) 20 mg ONCE ORAL 09/21/18 16:15 09/21/18 17:15 Heparin Sodium (Porcine) (Heparin 5000 units/ml) 5,000 units EVERY 12 HOURS SUBQ 09/14/18 21:00 10/14/18 20:59 09/21/18 08:45 Insulin Aspart (NovoLOG) Q6HR SUBQ 09/14/18 16:00 10/14/18 15:59 09/21/18 11:36 Insulin Detemir (Levemir) 12 units BEDTIME SUBQ 09/17/18 21:00 10/17/18 20:59 09/20/18 20:54 Iron Sucrose 100 mg/Sodium Chloride 60 ml @ 240 mls/hr QHS IV 09/18/18 21:00 09/22/18 21:14 09/20/18 20:53 Magnesium Hydroxide (Mom) 30 ml HSPRN PRN ORAL Constipation 09/14/18 12:45 10/14/18 12:44 Metoclopramide HCl (Reglan) 10 mg Q8H PRN IVP Nausea & Vomiting 09/17/18 12:30 10/17/18 12:29 Ondansetron HCl (Zofran) 4 mg Q6H PRN IVP Nausea & Vomiting 09/14/18 12:45 10/14/18 12:44 09/17/18 07:41 Pantoprazole (Protonix) 40 mg DAILY IV 09/15/18 09:00 10/15/18 08:59 09/21/18 08:43 Piperacillin Sod/ Tazobactam Sod 3.375 gm/Dextrose 100 ml @ 25 mls/hr EVERY 8 HOURS IVPB 09/17/18 14:00 09/22/18 13:59 09/21/18 13:36 Vancomycin HCl (Vanco rx to dose) 1 ea DAILY PRN MISC Per rx protocol 09/14/18 12:45 10/14/18 12:44 Vancomycin HCl 1.25 gm/Sodium Chloride 275 ml @ 183.33 mls/ hr Q24H IVPB 09/21/18 01:00 09/26/18 00:59 09/21/18 00:52 Milton Valladares MD Sep 21, 2018 16:23
--- NOTE | 2018-09-21 16:39 | NUR ---
Bus GreaserSupervisory Examiner SI: Respiratory Failure Trach/Vent, AMS BP:120/52 HR:76 RR:15 T:99.3 AC:14 TV:500 PEEP:5 FIO2:30% PH:7.4 PCO2:31.6 PO2:241 HCO3:23.9 O2 Sat:99.0 IS:Vanco IV Meropenem IV Vitamin PO Venofer IV Heparin Sub-Q Lasix PO Wound Care ICU Status
--- NOTE | 2018-09-21 17:30 | NUR ---
NURSE NOTES: Bed bath given.
--- NOTE | 2018-09-21 18:00 | NUR ---
NURSE NOTES: Family members are at the bedside.
--- NOTE | 2018-09-21 18:44 | Pulmonolgy Critical Care Note ---
Critical Care - Asmt/Plan Assessment/Plan: Pulmonary CCM Progress Note Critical Care - Asmt/Plan Problems: (1) Endotracheally intubated (2) Ventilator dependence, not tolerating CPAP trials (3) Sepsis, on pressors PRN - antibiotics changed as febrile (4) Pneumonia (5) Electrolyte imbalance (6) Dehydration (7) Altered mental status (8) Hypernatremia (9) Respiratory failure (10) Lactic acid acidosis (11) H/O: CVA (cerebrovascular accident) (12) G tube feedings (13) KEL (acute kidney injury) Respiratory: monitor respiratory rate, adjust FIO2, ABG, other - HHN's, pulmonary hygiene wean an tolerated Cardiac: continue to monitor HR/BP Renal: keep negative Infectious Disease: check cultures, continue antibiotics per ID Gastrointestinal: enteral feeding Endocrine: monitor blood sugar, continue sliding scale insulin Hematologic: monitor H/H Neurologic: keep patient comfortable - monitor MS, consider neuro eval and EEG Prophylaxis: Protonix, Heparin Disposition: keep in ICU Time Spent (Minutes): 40 Notes Reviewed: wildlife conservation officer, renal, ID, other - ERMD Discussed with: nurses, consultants, other - FC Critical Care - Objective Vital Signs Noted Status: sedated - intubated Condition: critical HEENT: atraumatic, normocephalic, other - ETT OGT weak gag Lungs: rhonchi Heart: HR/BP stable Abdomen: soft, non-tender, active bowel sounds, feeding tube Extremities: no C/C/E Micro: Microbiology Date/Time Source Procedure Growth Status 09/14/18 09:00 Rectum Received Critical Care - Subjective ROS Limited/Unobtainable: Yes ICU Day: 4 Intubation Day: 4 Interval Events: 77 F NHR h/o dementia, CVA, GT, HTN, HL a/w AMS and SOB intubated in ER Na 167 Cr 1.7 LA elevated + hemoconcentration No gag in ER + faint gag now + F no C no further hx obtainable Condition: critical IV Access: peripheral - x2 EKG Rhythm: Sinus Rhythm FI02: 60 Vent Support Breath Rate: 14 Vent Support Mode: AC Vent Tidal Volume: 500 Sputum Amount: Small PEEP: 5.0 PIP: 23 Secretions: scant thick Subjective: ARLETTE CXR: L RC inf, small L eff, ETT ET-Tube: 7.0 ET Position: 22 Labs: Laboratory Tests noted Critical Care - Objective Last 24 Hour Vital Signs Date Time Temp Pulse Resp B/P (MAP) Pulse Ox O2 Delivery O2 Flow Rate FiO2 09/21/18 17:00 86 16 30 09/21/18 15:20 74 18 30 09/21/18 15:00 76 15 120/52 (74) 99 09/21/18 15:00 76 15 120/52 (74) 99 09/21/18 14:00 74 14 118/54 (75) 100 09/21/18 14:00 74 14 118/54 (75) 100 09/21/18 13:25 76 16 30 09/21/18 13:00 74 15 102/45 (64) 98 09/21/18 12:00 Mechanical Ventilator 09/21/18 12:00 71 09/21/18 12:00 99.3 83 14 117/54 (75) 97 09/21/18 12:00 30 09/21/18 11:10 72 16 30 09/21/18 11:00 64 14 115/50 (71) 99 09/21/18 10:00 63 14 92/45 (61) 97 09/21/18 09:40 30 09/21/18 09:30 99.5 63 14 92/45 (61) 97 09/21/18 09:23 97 09/21/18 09:23 75 16 30 09/21/18 09:12 99.9 09/21/18 09:00 70 29 111/48 (69) 98 09/21/18 08:00 Mechanical Ventilator 09/21/18 08:00 101.4 76 30 124/52 (76) 100 09/21/18 08:00 69 09/21/18 08:00 30 09/21/18 07:30 74 16 30 30 09/21/18 07:00 76 16 102/52 (69) 97 09/21/18 06:00 70 17 111/47 (68) 99 09/21/18 05:13 76 16 30 09/21/18 05:00 73 17 118/53 (74) 97 09/21/18 04:00 30 09/21/18 04:00 Mechanical Ventilator 09/21/18 04:00 98.5 68 14 93/47 (62) 96 09/21/18 03:26 77 09/21/18 03:00 74 15 127/56 (79) 97 09/21/18 03:00 74 16 30 09/21/18 02:00 80 17 114/52 (72) 98 09/21/18 01:02 72 16 30 09/21/18 01:00 63 14 119/66 (83) 97 09/21/18 00:00 99.2 80 16 100/47 (64) 95 09/21/18 00:00 Mechanical Ventilator 09/21/18 00:00 30 09/20/18 23:38 70 09/20/18 23:00 73 18 114/53 (73) 97 09/20/18 22:50 70 15 30 09/20/18 22:00 61 14 102/48 (66) 98 09/20/18 21:00 77 15 121/48 (72) 97 09/20/18 20:44 76 14 30 09/20/18 20:00 98.6 76 15 116/55 (75) 97 09/20/18 20:00 Mechanical Ventilator 09/20/18 20:00 30 09/20/18 19:25 65 14 30 09/20/18 19:24 66 09/20/18 19:00 63 16 128/70 (89) 99 Accucheck: 188 Critical Care - Subjective ROS Limited/Unobtainable: No FI02: 30 Vent Support Breath Rate: 14 Vent Support Mode: AC Vent Tidal Volume: 500 Sputum Amount: Scant PEEP: 5.0 PIP: 27 Tube Feeding Amount: 60 I&O: Intake and Output 09/20/18 09/21/18 19:00 07:00 Intake Total 694.000 ml 1700 ml Output Total 1275 ml 705 ml Balance -581.000 ml 995 ml Intake Free Water 500 ml IV Total 444.000 ml 460 ml Tube Feeding 250 ml 710 ml Other 30 ml Output Urine Total 1275 ml 705 ml # Bowel Movements 1 2 ET-Tube: 7.0 ET Position: 22 Marcelo Swift MD Sep 21, 2018 18:44
[2018-09-21] MEDS: Albuterol/Ipratropium 3ml neb HHN SCH ×2 (19:07→23:07)
--- NOTE | 2018-09-21 19:16 | Surgery Progress Note ---
Surgery Progress Note Subjective Symptoms: improved, other Objective Last 24 Hour Vital Signs Date Time Temp Pulse Resp B/P (MAP) Pulse Ox O2 Delivery O2 Flow Rate FiO2 09/21/18 19:11 74 15 98 Mechanical Ventilator 30 09/21/18 19:10 30 09/21/18 19:08 75 15 97 Mechanical Ventilator 30 09/21/18 19:03 72 14 30 09/21/18 17:00 86 16 30 09/21/18 15:20 74 18 30 09/21/18 15:00 76 15 120/52 (74) 99 09/21/18 15:00 76 15 120/52 (74) 99 09/21/18 14:00 74 14 118/54 (75) 100 09/21/18 14:00 74 14 118/54 (75) 100 09/21/18 13:25 76 16 30 09/21/18 13:00 74 15 102/45 (64) 98 09/21/18 12:00 Mechanical Ventilator 09/21/18 12:00 71 09/21/18 12:00 99.3 83 14 117/54 (75) 97 09/21/18 12:00 30 09/21/18 11:10 72 16 30 09/21/18 11:00 64 14 115/50 (71) 99 09/21/18 10:00 63 14 92/45 (61) 97 09/21/18 09:40 30 09/21/18 09:30 99.5 63 14 92/45 (61) 97 09/21/18 09:23 97 09/21/18 09:23 75 16 30 09/21/18 09:12 99.9 09/21/18 09:00 70 29 111/48 (69) 98 09/21/18 08:00 Mechanical Ventilator 09/21/18 08:00 101.4 76 30 124/52 (76) 100 09/21/18 08:00 69 09/21/18 08:00 30 09/21/18 07:30 74 16 30 30 09/21/18 07:00 76 16 102/52 (69) 97 09/21/18 06:00 70 17 111/47 (68) 99 09/21/18 05:13 76 16 30 09/21/18 05:00 73 17 118/53 (74) 97 09/21/18 04:00 30 09/21/18 04:00 Mechanical Ventilator 09/21/18 04:00 98.5 68 14 93/47 (62) 96 09/21/18 03:26 77 09/21/18 03:00 74 15 127/56 (79) 97 09/21/18 03:00 74 16 30 09/21/18 02:00 80 17 114/52 (72) 98 09/21/18 01:02 72 16 30 09/21/18 01:00 63 14 119/66 (83) 97 09/21/18 00:00 99.2 80 16 100/47 (64) 95 09/21/18 00:00 Mechanical Ventilator 09/21/18 00:00 30 09/20/18 23:38 70 09/20/18 23:00 73 18 114/53 (73) 97 09/20/18 22:50 70 15 30 09/20/18 22:00 61 14 102/48 (66) 98 09/20/18 21:00 77 15 121/48 (72) 97 09/20/18 20:44 76 14 30 09/20/18 20:00 98.6 76 15 116/55 (75) 97 09/20/18 20:00 Mechanical Ventilator 09/20/18 20:00 30 09/20/18 19:25 65 14 30 09/20/18 19:24 66 I&O Intake and Output 09/20/18 09/21/18 19:00 07:00 Intake Total 694.000 ml 1700 ml Output Total 1275 ml 705 ml Balance -581.000 ml 995 ml Intake Free Water 500 ml IV Total 444.000 ml 460 ml Tube Feeding 250 ml 710 ml Other 30 ml Output Urine Total 1275 ml 705 ml # Bowel Movements 1 2 Cardiovascular: RSR Respiratory: clear Abdomen: soft, present bowel sounds, non-distended Extremities: no cyanosis Laboratory Tests Test 09/21/18 09:23 Arterial Blood pH 7.496 (7.350-7.450) Arterial Blood Partial Pressure CO2 31.6 mmHg (35.0-45.0) L Arterial Blood Partial Pressure O2 241.0 mmHg (75.0-100.0) H Arterial Blood HCO3 23.9 mmol/L (22.0-26.0) Arterial Blood Oxygen Saturation 99.0 % (95-100) Arterial Blood Base Excess 1.2 (-2-2) Ray Test Positive Plan Problems: (1) Sepsis Assessment & Plan: 77-year-old female presented to [facility] in distress found to be septic with leukocytosis tachycardia and requiring ventilatory support. Patient's labs noted and significant abnormal. Lactic acidosis. Severe dehydration. Admit to intensive care unit IV fluids Vent support - cont with weaning trial. looks okay for extubation soon IV antibiotics as per infectious disease Trend labs A.m. chest x-ray okay for tube feeds ICU care Leukocytosis improving. Labs improving. US noted wean vent for extubation We will follow with recommendations Thank you for allowing me to participate in patient's care (2) Lactic acid acidosis (3) Upper sacral area unstageable pressure ulcer (4) G tube feedings Assessment & Plan: DAILY ESTIMATED NEEDS: Needs based on Critical care, sepsis, wound, DM 53.6kg 25-32 kcals/kg 0991-1604 total kcals 1.25-2 g protein/kg 67-107 g total protein 25-32ml/kcal mL/kg 6816-9371 total fluid mLs NUTRITION DIAGNOSIS: 1) Swallowing difficulty R/T dysphagia, CVA as evidenced by PEG dependent, now orally intubated. 2) Increased kcal and pro needs r/t sepsis and wound healing as evidenced by elev BG and POC (200-400's), elev WBC (15.7), febrile (Tmax 100.9), elev Na (148), sacral wound/ unstageable per MD. CURRENT TF: Glucerna 1.2 @60 hrs ENTERAL NUTRITION RECOMMENDATIONS: Glucerna 1.2 @55ml/hr x24 hrs + Prosource x1 daily to provide 1320ml, 1584 kcal, 79g + 11g pro, 1063ml free H2O - Maintain Glucerna 1.2 -> Rec to REDUCE RATE to goal of 55ml/hr - Add Prosource x1 daily to better meet est pro needs - HOB over 30 degrees - Flush per MD-> 150q6 for added 600ml free fluid per day (1063ml from TF + 600ml flushes= 1663ml free fluid per day). ------ ADDITIONAL RECOMMENDATIONS: 1) Monitor hydration status 2) Obtain an accurate calibrated bed scale wt 3) Lytes daily on TF/ replete as needed 4) Rec increase hypoglycemic agents for improved BG control 5) Sacral wound: add AYDEE BID via PEG daily + Vit C 250mg BID daily via GT (5) Respiratory failure (6) Ventilator dependence Akhil Jackson Sep 21, 2018 19:16
--- NOTE | 2018-09-21 19:42 | NUR ---
HAND-OFF: Report given to FELIX Lares. [facility] plan of care.
--- NOTE | 2018-09-21 19:43 | NUR ---
NURSE NOTES: Endorsement received from FELIX Lyn. Patient orally intubated.ET 7.0, 22 lipline. AC 14, Vt 500, PEEP 5, 30% FiO2. With left upper arm PICC. GT patent and intact. On Glucerna 1.2 60ml/hr. No residual noted. Head of bed elevated. Call light within reach. BEd alarm on, locked and in low position. Will continue to monitor.
[2018-09-21] MEDS: Dyna-Hex 2% Top Sol 2oz TOPIC SCH (20:29)
[2018-09-21] MEDS: Iron Sucrose 100 MG in NS 55 ML IV SCH (20:30)
[2018-09-21] MEDS: Levemir Flexpen SUBQ SCH (20:31)
--- NOTE | 2018-09-21 21:00 | NUR ---
NURSE NOTES: Colace with held due to patient having loose stools.
--- NOTE | 2018-09-21 23:00 | NUR ---
NURSE NOTES: Repositioned. Secretions suctioned.
[2018-09-22] VITALS (24 sets, daily range): BP systolic 94–158; BP diastolic 40–72
[2018-09-22] MEDS: Vancomycin 1.25 GM in NS 275 ML IVPB SCH (00:39)
--- NOTE | 2018-09-22 01:00 | NUR ---
NURSE NOTES: Patient asleep at this time. Vital signs stable.
--- NOTE | 2018-09-22 03:00 | NUR ---
NURSE NOTES: Bed bath, oral care, change of linens done.
[2018-09-22] MEDS: Albuterol/Ipratropium 3ml neb HHN SCH ×6 (03:13→23:47)
--- NOTE | 2018-09-22 05:00 | NUR ---
NURSE NOTES: Patient tolerating feeding. Afebrile.
[2018-09-22] MEDS: NovoLOG Insulin Flexpen SUBQ SCH ×4 (05:56→23:28)
[2018-09-22 06:32] LABS: HEMATOCRIT 36.5 % (37.0-47.0); MEAN CORPUSCULAR VOLUME 96 FL (80-99); PLATELET COUNT 484 K/UL (150-450); RED BLOOD COUNT 3.79 M/UL (4.20-5.40); WHITE BLOOD COUNT 12.4 K/UL (4.8-10.8)
--- NOTE | 2018-09-22 07:15 | NUR ---
NURSE NOTES: Received report from FELIX Lares. Patient is responsive to verbal, eyes open without tracking. No acute distress/SOB noted. ETT 7.0/22cm vent setting AC 14, TV 500, FiO2 30% and Peep 5. Gtube intact, clean and no running at this time for weaning. Nunez intact and draining with yellow urine. Left upper arm PICC line intact and clean with TKO. Call light placed in easy reach. Will continue plan of care.
--- NOTE | 2018-09-22 07:21 | NUR ---
HAND-OFF: Report given to FELIX Lyn.
--- NOTE | 2018-09-22 07:25 | NUR ---
RESPIRATORY NOTE: received pt orally intubated and on current vent settings. ETT size 7.0, placed 22cm at the lip. ETT secured via anchor fast with no redness or skin tears visible around facial area. pt in no resp distress at this time. currently receiving breathing tx as scheduled. vent alarms are on and audible with ambu bag at bedside. will attempt to wean later this morning and report findings to RN throughout the day. will cont to monitor.
[2018-09-22 07:43] LABS: ANION GAP 6 mmol/L (5-15); BLOOD UREA NITROGEN 8 mg/dL (7-18); CARBON DIOXIDE 29 MMOL/L (21-32); CHLORIDE 108 MMOL/L (98-107); CREATININE 0.7 MG/DL (0.55-1.30); POTASSIUM 3.5 MMOL/L (3.5-5.1); SODIUM 143 MMOL/L (136-145)
[2018-09-22] MEDS: Pantoprazole Inj IV SCH (08:31)
[2018-09-22] MEDS: Ascorbic Acid 500mg tab ORAL SCH ×2 (08:31→17:47)
[2018-09-22] MEDS: Heparin 5000 units/ml inj SUBQ SCH ×2 (08:32→20:40)
--- NOTE | 2018-09-22 08:32 | NUR ---
RADIOLOGY DEPT., CHEST X-RAY DONE.-P.DYE
--- NOTE | 2018-09-22 08:41 | Diagnostic Imaging Report ---
EXAM: XR Chest, 1 View CLINICAL HISTORY: INFECT TECHNIQUE: Frontal view of the chest. COMPARISON: Chest x-ray dated 09/18/18 FINDINGS: Lungs: Subsegmental atelectasis versus infiltrates in bilateral lung bases, not significantly changed compared to the prior exam. Mildly increased interstitial markings. Pleural space: Possible small bilateral layering pleural effusions. Heart: Unremarkable. No cardiomegaly. Mediastinum: Unremarkable. Bones/joints: Unremarkable. Vasculature: Atherosclerotic calcifications are noted within the aortic arch. Tubes, lines and devices: Endotracheal tube tip is 2.2 cm above the tricia. Left arm PICC with the tip in the region of the SVC/right atrial junction. Telemetry leads overlie the thorax. IMPRESSION: 1. Subsegmental atelectasis versus infiltrates in bilateral lung bases, not significantly changed compared to the prior exam. 2. Possible small bilateral layering pleural effusions, also not significantly changed. 3. Mildly increased interstitial markings. This is nonspecific but may suggest mild pulmonary vascular congestion or a mild interstitial pneumonitis.
[2018-09-22 08:49] LABS: APPEARANCE,URINE CLEAR; BILIRUBIN, URINE NEGATIVE (NEGATIVE); COLOR,URINE PALE YELLOW; GLUCOSE, URINE (UA) 4+ (NEGATIVE); KETONES,URINE NEGATIVE (NEGATIVE); LEUKOCYTE ESTERASE ,URINE NEGATIVE (NEGATIVE); NITRITE,URINE NEGATIVE (NEGATIVE); PH,URINE 6.5 (4.5-8.0); PROTEIN,URINE NEGATIVE (NEGATIVE); UROBILINOGEN,URINE NORMAL MG/DL (0.0-1.0)
[2018-09-22] MEDS: Docusate 100mg cap ORAL SCH ×2 (09:00→20:39)
--- NOTE | 2018-09-22 09:00 | NUR ---
NURSE NOTES: All due medication given. Will continue plan of care.
--- NOTE | 2018-09-22 09:03 | NUR ---
RESPIRATORY NOTE: placed pt on CPAP PS 8 at 0855. current RSBI 85. will take cuff leak test with in the hour and report to RN to relay to MD. will cont to monitor.
--- NOTE | 2018-09-22 10:21 | Nephrology Progress Note ---
Assessment/Plan Problem List: (1) KEL (acute kidney injury) (2) Respiratory failure (3) Dehydration (4) Electrolyte imbalance (5) G tube feedings (6) Hypokalemia (7) CVA, old, hemiparesis (8) DM (diabetes mellitus) Plan antibiotics Pulm support correct lytes BS and BP check and monitor per consultants Subjective ROS Limited/Unobtainable: Yes Objective Objective Last 24 Hour Vital Signs Date Time Temp Pulse Resp B/P (MAP) Pulse Ox O2 Delivery O2 Flow Rate FiO2 09/22/18 09:02 99 09/22/18 09:00 81 26 118/50 (72) 97 09/22/18 08:59 96 27 30 30 09/22/18 08:55 30 09/22/18 08:00 30 09/22/18 08:00 Mechanical Ventilator 09/22/18 08:00 99.0 93 17 158/72 (100) 97 09/22/18 07:29 86 14 100 Mechanical Ventilator 30 09/22/18 07:21 85 17 30 09/22/18 07:20 86 17 98 Mechanical Ventilator 30 09/22/18 07:00 97 18 146/56 (86) 09/22/18 06:00 81 16 131/59 (83) 09/22/18 05:14 79 14 30 09/22/18 05:00 89 20 137/61 (86) 76 09/22/18 04:00 76 09/22/18 04:00 Mechanical Ventilator 09/22/18 04:00 99.2 90 16 125/50 (75) 96 09/22/18 04:00 30 09/22/18 03:27 76 14 99 Mechanical Ventilator 30 09/22/18 03:14 30 09/22/18 03:13 69 14 99 Mechanical Ventilator 30 09/22/18 03:13 69 14 30 09/22/18 03:00 74 13 115/48 (70) 96 09/22/18 02:00 69 15 105/44 (64) 97 09/22/18 01:14 79 14 30 09/22/18 01:00 80 18 109/49 (69) 97 09/22/18 00:00 79 09/22/18 00:00 30 09/22/18 00:00 65 14 109/46 (67) 97 09/22/18 00:00 Mechanical Ventilator 09/21/18 23:24 80 14 97 Mechanical Ventilator 30 09/21/18 23:09 80 15 30 09/21/18 23:08 30 09/21/18 23:07 68 14 97 Mechanical Ventilator 30 09/21/18 23:00 98.9 69 14 99/44 (62) 97 09/21/18 22:00 62 14 81/42 (55) 97 09/21/18 21:06 77 14 30 09/21/18 21:00 82 15 103/45 (64) 96 09/21/18 20:00 99.1 73 14 117/45 (69) 97 09/21/18 20:00 76 09/21/18 20:00 Mechanical Ventilator 09/21/18 20:00 30 09/21/18 19:20 77 16 98 Mechanical Ventilator 30 09/21/18 19:11 74 15 98 Mechanical Ventilator 30 09/21/18 19:10 30 09/21/18 19:09 75 15 97 Mechanical Ventilator 30 09/21/18 19:08 75 15 97 Mechanical Ventilator 30 09/21/18 19:03 72 14 30 09/21/18 19:00 72 16 114/51 (72) 98 09/21/18 18:00 79 14 126/49 (74) 97 09/21/18 17:00 78 18 111/49 (69) 96 09/21/18 17:00 86 16 30 09/21/18 16:00 30 09/21/18 16:00 99.1 80 16 113/50 (71) 98 09/21/18 16:00 76 09/21/18 16:00 Mechanical Ventilator 09/21/18 15:20 74 18 30 09/21/18 15:00 76 15 120/52 (74) 99 09/21/18 15:00 76 15 120/52 (74) 99 09/21/18 14:00 74 14 118/54 (75) 100 09/21/18 14:00 74 14 118/54 (75) 100 09/21/18 13:25 76 16 30 09/21/18 13:00 74 15 102/45 (64) 98 09/21/18 12:00 Mechanical Ventilator 09/21/18 12:00 71 09/21/18 12:00 99.3 83 14 117/54 (75) 97 09/21/18 12:00 30 09/21/18 11:10 72 16 30 09/21/18 11:00 64 14 115/50 (71) 99 Intake and Output 09/21/18 09/22/18 18:59 06:59 Intake Total 615 ml 1405.00 ml Output Total 1080 ml 925 ml Balance -465 ml 480.00 ml Intake Free Water 250 ml IV Total 75 ml 435.00 ml Tube Feeding 540 ml 720 ml Output Urine Total 1080 ml 925 ml # Bowel Movements 1 2 Laboratory Tests 09/22/18 05:40: White Blood Count 12.4H, Red Blood Count 3.79L, Hemoglobin 12.0, Hematocrit 36.5L, Mean Corpuscular Volume 96, Mean Corpuscular Hemoglobin 31.6H, Mean Corpuscular Hemoglobin Concent 32.8, Red Cell Distribution Width 14.0, Platelet Count 484H, Mean Platelet Volume 6.3L, Neutrophils (%) (Auto) , Lymphocytes (%) (Auto) , Monocytes (%) (Auto) , Eosinophils (%) (Auto) , Basophils (%) (Auto) , Differential Total Cells Counted 100, Neutrophils % (Manual) 88H, Lymphocytes % (Manual) 4L, Monocytes % (Manual) 1, Eosinophils % (Manual) 0, Basophils % ( Manual) 0, Band Neutrophils 7, Nucleated Red Blood Cells 1, Platelet Estimate IncreasedH, Platelet Morphology Normal, Red Blood Cell Morphology Normal, Sodium Level 143, Potassium Level 3.5, Chloride Level 108H, Carbon Dioxide Level 29, Anion Gap 6, Blood Urea Nitrogen 8, Creatinine 0.7, Estimat Glomerular Filtration Rate , Glucose Level 255H, Calcium Level 9.0, Magnesium Level 1.8 09/22/18 07:20: Urine Color Pale yellow, Urine Appearance Clear, Urine pH 6.5, Urine Specific [place] 1.010, Urine Protein Negative, Urine Glucose (UA) 4+H, Urine Ketones Negative, Urine Blood 2+H, Urine Nitrite Negative, Urine Bilirubin Negative, Urine Urobilinogen Normal, Urine Leukocyte Esterase Negative, Urine RBC 2-4H, Urine WBC 0-2, Urine Squamous Epithelial Cells Occasional, Urine Bacteria Occasional, Urine Yeast ManyH Height (Feet): 5 Height (Inches): 3.00 Weight (Pounds): 123 General Appearance: no apparent distress Cardiovascular: normal rate Respiratory/Chest: decreased breath sounds Abdomen: soft, distended Dwayne Vernon MD Sep 22, 2018 10:21
[2018-09-22] MEDS ORDERED: Tubing IV Secondary IV ONE (10:47)
--- NOTE | 2018-09-22 11:02 | NUR ---
NURSE NOTES: Patient had diarrhea x1 small and brown. Bed bath given. Will continue plan of care.
--- NOTE | 2018-09-22 11:21 | Surgery Progress Note ---
Surgery Progress Note Subjective Additional Comments no acute events labs noted exam unchanged. Objective Last 24 Hour Vital Signs Date Time Temp Pulse Resp B/P (MAP) Pulse Ox O2 Delivery O2 Flow Rate FiO2 09/22/18 11:00 74 25 125/52 (76) 98 09/22/18 10:00 77 26 126/56 (79) 97 09/22/18 09:02 99 09/22/18 09:00 81 26 118/50 (72) 97 09/22/18 08:59 96 27 30 30 09/22/18 08:55 30 09/22/18 08:00 30 09/22/18 08:00 Mechanical Ventilator 09/22/18 08:00 99.0 93 17 158/72 (100) 97 09/22/18 07:29 86 14 100 Mechanical Ventilator 30 09/22/18 07:21 85 17 30 09/22/18 07:20 86 17 98 Mechanical Ventilator 30 09/22/18 07:00 97 18 146/56 (86) 09/22/18 06:00 81 16 131/59 (83) 09/22/18 05:14 79 14 30 09/22/18 05:00 89 20 137/61 (86) 76 09/22/18 04:00 76 09/22/18 04:00 Mechanical Ventilator 09/22/18 04:00 99.2 90 16 125/50 (75) 96 09/22/18 04:00 30 09/22/18 03:27 76 14 99 Mechanical Ventilator 30 09/22/18 03:14 30 09/22/18 03:13 69 14 99 Mechanical Ventilator 30 09/22/18 03:13 69 14 30 09/22/18 03:00 74 13 115/48 (70) 96 09/22/18 02:00 69 15 105/44 (64) 97 09/22/18 01:14 79 14 30 09/22/18 01:00 80 18 109/49 (69) 97 09/22/18 00:00 79 09/22/18 00:00 30 09/22/18 00:00 65 14 109/46 (67) 97 09/22/18 00:00 Mechanical Ventilator 09/21/18 23:24 80 14 97 Mechanical Ventilator 30 09/21/18 23:09 80 15 30 09/21/18 23:08 30 09/21/18 23:07 68 14 97 Mechanical Ventilator 30 09/21/18 23:00 98.9 69 14 99/44 (62) 97 09/21/18 22:00 62 14 81/42 (55) 97 09/21/18 21:06 77 14 30 09/21/18 21:00 82 15 103/45 (64) 96 09/21/18 20:00 99.1 73 14 117/45 (69) 97 09/21/18 20:00 76 09/21/18 20:00 Mechanical Ventilator 09/21/18 20:00 30 09/21/18 19:20 77 16 98 Mechanical Ventilator 30 09/21/18 19:11 74 15 98 Mechanical Ventilator 30 09/21/18 19:10 30 09/21/18 19:09 75 15 97 Mechanical Ventilator 30 09/21/18 19:08 75 15 97 Mechanical Ventilator 30 09/21/18 19:03 72 14 30 09/21/18 19:00 72 16 114/51 (72) 98 09/21/18 18:00 79 14 126/49 (74) 97 09/21/18 17:00 78 18 111/49 (69) 96 09/21/18 17:00 86 16 30 09/21/18 16:00 30 09/21/18 16:00 99.1 80 16 113/50 (71) 98 09/21/18 16:00 76 09/21/18 16:00 Mechanical Ventilator 09/21/18 15:20 74 18 30 09/21/18 15:00 76 15 120/52 (74) 99 09/21/18 15:00 76 15 120/52 (74) 99 09/21/18 14:00 74 14 118/54 (75) 100 09/21/18 14:00 74 14 118/54 (75) 100 09/21/18 13:25 76 16 30 09/21/18 13:00 74 15 102/45 (64) 98 09/21/18 12:00 Mechanical Ventilator 09/21/18 12:00 71 09/21/18 12:00 99.3 83 14 117/54 (75) 97 09/21/18 12:00 30 I&O Intake and Output 09/21/18 09/22/18 18:59 06:59 Intake Total 615 ml 1405.00 ml Output Total 1080 ml 925 ml Balance -465 ml 480.00 ml Intake Free Water 250 ml IV Total 75 ml 435.00 ml Tube Feeding 540 ml 720 ml Output Urine Total 1080 ml 925 ml # Bowel Movements 1 2 Cardiovascular: RSR Respiratory: clear, decreased breath sounds, other Abdomen: soft, present bowel sounds, non-distended Extremities: no cyanosis Laboratory Tests Test 09/22/18 05:40 09/22/18 07:20 White Blood Count 12.4 K/UL (4.8-10.8) H Red Blood Count 3.79 M/UL (4.20-5.40) L Hemoglobin 12.0 G/DL (12.0-16.0) Hematocrit 36.5 % (37.0-47.0) L Mean Corpuscular Volume 96 FL (80-99) Mean Corpuscular Hemoglobin 31.6 PG (27.0-31.0) H Mean Corpuscular Hemoglobin Concent 32.8 G/DL (32.0-36.0) Red Cell Distribution Width 14.0 % (11.6-14.8) Platelet Count 484 K/UL (150-450) H Mean Platelet Volume 6.3 FL (6.5-10.1) L Neutrophils (%) (Auto) % (45.0-75.0) Lymphocytes (%) (Auto) % (20.0-45.0) Monocytes (%) (Auto) % (1.0-10.0) Eosinophils (%) (Auto) % (0.0-3.0) Basophils (%) (Auto) % (0.0-2.0) Differential Total Cells Counted 100 Neutrophils % (Manual) 88 % (45-75) H Lymphocytes % (Manual) 4 % (20-45) L Monocytes % (Manual) 1 % (1-10) Eosinophils % (Manual) 0 % (0-3) Basophils % (Manual) 0 % (0-2) Band Neutrophils 7 % (0-8) Nucleated Red Blood Cells 1 /100 WBC Platelet Estimate Increased H Platelet Morphology Normal Red Blood Cell Morphology Normal Sodium Level 143 MMOL/L (136-145) Potassium Level 3.5 MMOL/L (3.5-5.1) Chloride Level 108 MMOL/L (98-107) H Carbon Dioxide Level 29 MMOL/L (21-32) Anion Gap 6 mmol/L (5-15) Blood Urea Nitrogen 8 mg/dL (7-18) Creatinine 0.7 MG/DL (0.55-1.30) Estimat Glomerular Filtration Rate mL/min (>60) Glucose Level 255 MG/DL (74-106) H Calcium Level 9.0 MG/DL (8.5-10.1) Magnesium Level 1.8 MG/DL (1.8-2.4) Urine Color Pale yellow Urine Appearance Clear Urine pH 6.5 (4.5-8.0) Urine Specific [place] 1.010 (1.005-1.035) Urine Protein Negative (NEGATIVE) Urine Glucose (UA) 4+ (NEGATIVE) H Urine Ketones Negative (NEGATIVE) Urine Blood 2+ (NEGATIVE) H Urine Nitrite Negative (NEGATIVE) Urine Bilirubin Negative (NEGATIVE) Urine Urobilinogen Normal MG/DL (0.0-1.0) Urine Leukocyte Esterase Negative (NEGATIVE) Urine RBC 2-4 /HPF (0 - 2) H Urine WBC 0-2 /HPF (0 - 2) Urine Squamous Epithelial Cells Occasional /LPF Urine Bacteria Occasional /HPF (NONE) Urine Yeast Many /HPF (NONE) H Plan Problems: (1) Sepsis Assessment & Plan: 77-year-old female presented to [facility] in distress found to be septic with leukocytosis tachycardia and requiring ventilatory support. Patient's labs noted and significant abnormal. Lactic acidosis. Severe dehydration. Admit to intensive care unit IV fluids Vent support - cont with weaning trial. looks okay for extubation soon IV antibiotics as per infectious disease Trend labs A.m. chest x-ray okay for tube feeds ICU care Leukocytosis improving. Labs improving. US noted wean vent for extubation We will follow with recommendations Thank you for allowing me to participate in patient's care (2) Lactic acid acidosis (3) Upper sacral area unstageable pressure ulcer (4) G tube feedings Assessment & Plan: DAILY ESTIMATED NEEDS: Needs based on Critical care, sepsis, wound, DM 53.6kg 25-32 kcals/kg 9485-6940 total kcals 1.25-2 g protein/kg 67-107 g total protein 25-32ml/kcal mL/kg 7822-9684 total fluid mLs NUTRITION DIAGNOSIS: 1) Swallowing difficulty R/T dysphagia, CVA as evidenced by PEG dependent, now orally intubated. 2) Increased kcal and pro needs r/t sepsis and wound healing as evidenced by elev BG and POC (200-400's), elev WBC (15.7), febrile (Tmax 100.9), elev Na (148), sacral wound/ unstageable per MD. CURRENT TF: Glucerna 1.2 @60 hrs ENTERAL NUTRITION RECOMMENDATIONS: Glucerna 1.2 @55ml/hr x24 hrs + Prosource x1 daily to provide 1320ml, 1584 kcal, 79g + 11g pro, 1063ml free H2O - Maintain Glucerna 1.2 -> Rec to REDUCE RATE to goal of 55ml/hr - Add Prosource x1 daily to better meet est pro needs - HOB over 30 degrees - Flush per MD-> 150q6 for added 600ml free fluid per day (1063ml from TF + 600ml flushes= 1663ml free fluid per day). ------ ADDITIONAL RECOMMENDATIONS: 1) Monitor hydration status 2) Obtain an accurate calibrated bed scale wt 3) Lytes daily on TF/ replete as needed 4) Rec increase hypoglycemic agents for improved BG control 5) Sacral wound: add AYDEE BID via PEG daily + Vit C 250mg BID daily via GT (5) Respiratory failure (6) Ventilator dependence Akhil Jackson Sep 22, 2018 11:21
--- NOTE | 2018-09-22 11:47 | NUR ---
RESPIRATORY NOTE: cuff leak test reported to MD and RN. possible swelling may be present. pt will not be extubated today. placed back on AC mode.
--- NOTE | 2018-09-22 11:47 | NUR ---
NURSE NOTES: Seen by Dr. Helm and assessed. No new orders at this time.
--- NOTE | 2018-09-22 13:50 | NUR ---
NURSE NOTES: Repositioned patient and oral care provided.
--- NOTE | 2018-09-22 15:50 | NUR ---
NURSE NOTES: Repositioned patient.
--- NOTE | 2018-09-22 17:50 | NUR ---
NURSE NOTES: Bed bath given and oral care provided.
--- NOTE | 2018-09-22 19:20 | NUR ---
HAND-OFF: Report given to FELIX Martin. Endorsed plan of care.
--- NOTE | 2018-09-22 19:30 | NUR ---
NURSE NOTES: Received pt in no acute distress. Opens eyes spontaneously, tracks but non verbal. Remains orally intubated and appears to be tolerating current vent parameters. fio2 .30, saturating 100%. Secretions minimal, chest sounds with scattered rhonchi. GT patent, GTF with Glucerna 1.2 continues at 60ml/h, residual 80 ml. Abd soft, no BM at this time. Afebrile, NSR on the monitor. FC patent, UOP 50-60ml/h. PICC on OPHELIA intact with IV at TKO. Brother at the bedside, plan of care explained.
--- NOTE | 2018-09-22 19:52 | NUR ---
RESPIRATORY NOTE: Received pt. on 840 vent. Vent settings are: A/C rate of 14, Vt 500, FI02 30%, PEEP +5. No respiratory distress noted, pt sP02 @ 99%. Ambu bag @ BS. Vent plugged on red outlet. Will continue to monitor pt.
[2018-09-22] MEDS: Iron Sucrose 100 MG in NS 55 ML IV SCH (20:38)
[2018-09-22] MEDS: Dyna-Hex 2% Top Sol 2oz TOPIC SCH (20:38)
[2018-09-22] MEDS: Levemir Flexpen SUBQ SCH (20:41)
--- NOTE | 2018-09-22 22:00 | NUR ---
NURSE NOTES: Calm, asleep; VSS. No distress. No further residuals obtained.
--- NOTE | 2018-09-22 23:00 | NUR ---
NURSE NOTES: Peripheral blood drawn for Vanco trough. PICC line not drawing blood. Pt remaining calm, quiet and asleep.
--- NOTE | 2018-09-22 23:02 | General Progress Note ---
Assessment/Plan Status: unchanged Assessment/Plan: 77 y/o F with acute hypoxemic respiratory failure and sepsis admitted to ICU # Acute hypoxemic respiratory failure - suspect very low prognosis given neurologic status, fmaily does not want trache...terminal wean? - Intubated in the ER and ICU management by industrial equipment wirer appreciated. - Serial ABG and CXR as needed. 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 - Nephrology follow up appreciated. 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 - R gaze preference noted. # Hypertension - Monitor and resume home medications not needed now due to hypotension. # History of dementia - Supportive care - SW to attempt to find family members # DVT and GI ppx # FULL CODE by records. - CM / SW follow up for family is needed. Subjective Date patient seen: Sep 22, 2018 Time patient seen: 11:30 Allergies: Coded Allergies: No Known Allergies (Unverified , 02/04/17) Subjective patient changed from zosyn to merrem for continued fever discussed w RT, patient has no cuff leak no improvement in neurologic status Objective Last 24 Hour Vital Signs Date Time Temp Pulse Resp B/P (MAP) Pulse Ox O2 Delivery O2 Flow Rate FiO2 09/22/18 22:00 69 14 117/45 (69) 98 09/22/18 21:08 73 14 100 Mechanical Ventilator 30 09/22/18 21:08 66 14 30 09/22/18 21:00 66 14 112/42 (65) 99 09/22/18 20:00 Mechanical Ventilator 09/22/18 20:00 98.4 69 17 119/47 (71) 99 09/22/18 20:00 30 09/22/18 20:00 70 09/22/18 19:49 67 14 98 Mechanical Ventilator 30 09/22/18 19:49 67 14 30 09/22/18 19:00 64 14 108/44 (65) 99 09/22/18 18:00 69 14 100/45 (63) 99 09/22/18 17:21 65 14 30 09/22/18 17:00 63 23 111/44 (66) 97 09/22/18 16:00 77 09/22/18 16:00 98.5 73 24 95/40 (58) 98 09/22/18 16:00 30 09/22/18 16:00 Mechanical Ventilator 09/22/18 15:16 73 14 30 09/22/18 15:15 71 14 97 Mechanical Ventilator 30 09/22/18 15:08 81 14 99 Mechanical Ventilator 30 09/22/18 15:00 72 13 116/47 (70) 93 09/22/18 14:00 63 14 101/51 (68) 98 09/22/18 13:00 98.8 73 14 94/45 (61) 98 09/22/18 12:39 84 14 30 09/22/18 12:36 98.8 09/22/18 12:00 30 09/22/18 12:00 Mechanical Ventilator 09/22/18 12:00 92 09/22/18 12:00 100.0 92 15 137/52 (80) 97 09/22/18 11:50 88 19 30 09/22/18 11:44 92 28 97 Mechanical Ventilator 30 09/22/18 11:35 80 27 99 Mechanical Ventilator 30 09/22/18 11:00 74 25 125/52 (76) 98 09/22/18 10:00 77 26 126/56 (79) 97 09/22/18 09:02 99 09/22/18 09:00 81 26 118/50 (72) 97 09/22/18 08:59 96 27 30 30 09/22/18 08:55 30 09/22/18 08:00 30 09/22/18 08:00 97 09/22/18 08:00 Mechanical Ventilator 09/22/18 08:00 99.0 93 17 158/72 (100) 97 09/22/18 07:29 86 14 100 Mechanical Ventilator 30 09/22/18 07:21 85 17 30 09/22/18 07:20 86 17 98 Mechanical Ventilator 30 09/22/18 07:00 97 18 146/56 (86) 09/22/18 06:00 81 16 131/59 (83) 09/22/18 05:14 79 14 30 09/22/18 05:00 89 20 137/61 (86) 76 09/22/18 04:00 76 09/22/18 04:00 Mechanical Ventilator 09/22/18 04:00 99.2 90 16 125/50 (75) 96 09/22/18 04:00 30 09/22/18 03:27 76 14 99 Mechanical Ventilator 30 09/22/18 03:14 30 09/22/18 03:13 69 14 99 Mechanical Ventilator 30 09/22/18 03:13 69 14 30 09/22/18 03:00 74 13 115/48 (70) 96 09/22/18 02:00 69 15 105/44 (64) 97 09/22/18 01:14 79 14 30 09/22/18 01:00 80 18 109/49 (69) 97 09/22/18 00:00 79 09/22/18 00:00 30 09/22/18 00:00 65 14 109/46 (67) 97 09/22/18 00:00 Mechanical Ventilator 09/21/18 23:24 80 14 97 Mechanical Ventilator 30 09/21/18 23:09 80 15 30 09/21/18 23:08 30 09/21/18 23:07 68 14 97 Mechanical Ventilator 30 Intake and Output 09/21/18 09/22/18 19:00 07:00 Intake Total 615 ml 1505.00 ml Output Total 1110 ml 925 ml Balance -495 ml 580.00 ml Intake Free Water 250 ml IV Total 75 ml 535.00 ml Tube Feeding 540 ml 720 ml Output Urine Total 1110 ml 925 ml # Bowel Movements 1 2 Laboratory Tests 09/22/18 05:40: White Blood Count 12.4H, Red Blood Count 3.79L, Hemoglobin 12.0, Hematocrit 36.5L, Mean Corpuscular Volume 96, Mean Corpuscular Hemoglobin 31.6H, Mean Corpuscular Hemoglobin Concent 32.8, Red Cell Distribution Width 14.0, Platelet Count 484H, Mean Platelet Volume 6.3L, Neutrophils (%) (Auto) , Lymphocytes (%) (Auto) , Monocytes (%) (Auto) , Eosinophils (%) (Auto) , Basophils (%) (Auto) , Differential Total Cells Counted 100, Neutrophils % (Manual) 88H, Lymphocytes % (Manual) 4L, Monocytes % (Manual) 1, Eosinophils % (Manual) 0, Basophils % ( Manual) 0, Band Neutrophils 7, Nucleated Red Blood Cells 1, Platelet Estimate IncreasedH, Platelet Morphology Normal, Red Blood Cell Morphology Normal, Sodium Level 143, Potassium Level 3.5, Chloride Level 108H, Carbon Dioxide Level 29, Anion Gap 6, Blood Urea Nitrogen 8, Creatinine 0.7, Estimat Glomerular Filtration Rate , Glucose Level 255H, Calcium Level 9.0, Magnesium Level 1.8 09/22/18 07:20: Urine Color Pale yellow, Urine Appearance Clear, Urine pH 6.5, Urine Specific [place] 1.010, Urine Protein Negative, Urine Glucose (UA) 4+H, Urine Ketones Negative, Urine Blood 2+H, Urine Nitrite Negative, Urine Bilirubin Negative, Urine Urobilinogen Normal, Urine Leukocyte Esterase Negative, Urine RBC 2-4H, Urine WBC 0-2, Urine Squamous Epithelial Cells Occasional, Urine Bacteria Occasional, Urine Yeast ManyH Height (Feet): 5 Height (Inches): 3.00 Weight (Pounds): 123 Objective GEN: intubated, eyes open, right side gaze preference HEENT: pupils 8mm and sluggish CV: RRR, no M, R, G, no jvd RESP: CTAB, no w/r/c ABD: normal bowel sounds, soft, non tender EXT: normal muscle tone, no tenderness NEURO: no changes, does not withdraw from pain, blinks to hand toward face, no tracking Desiree Helm DO Sep 22, 2018 23:02
--- NOTE | 2018-09-22 23:07 | Pulmonolgy Critical Care Note ---
Critical Care - Asmt/Plan Assessment/Plan: Pulmonary CCM Progress Note Critical Care - Asmt/Plan Problems: (1) Endotracheally intubated (2) Ventilator dependence, not tolerating CPAP trials (3) Sepsis, on pressors PRN - antibiotics changed as febrile (4) Pneumonia (5) Electrolyte imbalance (6) Dehydration (7) Altered mental status (8) Hypernatremia (9) Respiratory failure (10) Lactic acid acidosis (11) H/O: CVA (cerebrovascular accident) (12) G tube feedings (13) KEL (acute kidney injury) Respiratory: monitor respiratory rate, adjust FIO2, ABG, other - HHN's, pulmonary hygiene wean an tolerated Cardiac: continue to monitor HR/BP Renal: keep negative Infectious Disease: check cultures, continue antibiotics per ID Gastrointestinal: enteral feeding Endocrine: monitor blood sugar, continue sliding scale insulin Hematologic: monitor H/H Neurologic: keep patient comfortable - monitor MS, consider neuro eval and EEG Prophylaxis: Protonix, Heparin Disposition: keep in ICU Time Spent (Minutes): 40 Notes Reviewed: pipe testing technician, renal, ID, other - ERMD Discussed with: nurses, consultants, other - FC Critical Care - Objective Vital Signs Noted Status: sedated - intubated Condition: critical HEENT: atraumatic, normocephalic, other - ETT OGT weak gag Lungs: rhonchi Heart: HR/BP stable Abdomen: soft, non-tender, active bowel sounds, feeding tube Extremities: no C/C/E Micro: Microbiology Date/Time Source Procedure Growth Status 09/14/18 09:00 Rectum Received Critical Care - Subjective ROS Limited/Unobtainable: Yes ICU Day: 4 Intubation Day: 4 Interval Events: 77 F NHR h/o dementia, CVA, GT, HTN, HL a/w AMS and SOB intubated in ER Na 167 Cr 1.7 LA elevated + hemoconcentration No gag in ER + faint gag now + F no C no further hx obtainable Condition: critical IV Access: peripheral - x2 EKG Rhythm: Sinus Rhythm FI02: 60 Vent Support Breath Rate: 14 Vent Support Mode: AC Vent Tidal Volume: 500 Sputum Amount: Small PEEP: 5.0 PIP: 23 Secretions: scant thick Subjective: ARLETTE CXR: L RC inf, small L eff, ETT ET-Tube: 7.0 ET Position: 22 Labs: Laboratory Tests noted Critical Care - Objective Last 24 Hour Vital Signs Date Time Temp Pulse Resp B/P (MAP) Pulse Ox O2 Delivery O2 Flow Rate FiO2 09/22/18 22:00 69 14 117/45 (69) 98 09/22/18 21:08 73 14 100 Mechanical Ventilator 30 09/22/18 21:08 66 14 30 09/22/18 21:00 66 14 112/42 (65) 99 09/22/18 20:00 Mechanical Ventilator 09/22/18 20:00 98.4 69 17 119/47 (71) 99 09/22/18 20:00 30 09/22/18 20:00 70 09/22/18 19:49 67 14 98 Mechanical Ventilator 30 09/22/18 19:49 67 14 30 09/22/18 19:00 64 14 108/44 (65) 99 09/22/18 18:00 69 14 100/45 (63) 99 09/22/18 17:21 65 14 30 09/22/18 17:00 63 23 111/44 (66) 97 09/22/18 16:00 77 09/22/18 16:00 98.5 73 24 95/40 (58) 98 09/22/18 16:00 30 09/22/18 16:00 Mechanical Ventilator 09/22/18 15:16 73 14 30 09/22/18 15:15 71 14 97 Mechanical Ventilator 30 09/22/18 15:08 81 14 99 Mechanical Ventilator 30 09/22/18 15:00 72 13 116/47 (70) 93 09/22/18 14:00 63 14 101/51 (68) 98 09/22/18 13:00 98.8 73 14 94/45 (61) 98 09/22/18 12:39 84 14 30 09/22/18 12:36 98.8 09/22/18 12:00 30 09/22/18 12:00 Mechanical Ventilator 09/22/18 12:00 92 09/22/18 12:00 100.0 92 15 137/52 (80) 97 09/22/18 11:50 88 19 30 09/22/18 11:44 92 28 97 Mechanical Ventilator 30 09/22/18 11:35 80 27 99 Mechanical Ventilator 30 09/22/18 11:00 74 25 125/52 (76) 98 09/22/18 10:00 77 26 126/56 (79) 97 09/22/18 09:02 99 09/22/18 09:00 81 26 118/50 (72) 97 09/22/18 08:59 96 27 30 30 09/22/18 08:55 30 09/22/18 08:00 30 09/22/18 08:00 97 09/22/18 08:00 Mechanical Ventilator 09/22/18 08:00 99.0 93 17 158/72 (100) 97 09/22/18 07:29 86 14 100 Mechanical Ventilator 30 09/22/18 07:21 85 17 30 09/22/18 07:20 86 17 98 Mechanical Ventilator 30 09/22/18 07:00 97 18 146/56 (86) 09/22/18 06:00 81 16 131/59 (83) 09/22/18 05:14 79 14 30 09/22/18 05:00 89 20 137/61 (86) 76 09/22/18 04:00 76 09/22/18 04:00 Mechanical Ventilator 09/22/18 04:00 99.2 90 16 125/50 (75) 96 09/22/18 04:00 30 09/22/18 03:27 76 14 99 Mechanical Ventilator 30 09/22/18 03:14 30 09/22/18 03:13 69 14 99 Mechanical Ventilator 30 09/22/18 03:13 69 14 30 09/22/18 03:00 74 13 115/48 (70) 96 09/22/18 02:00 69 15 105/44 (64) 97 09/22/18 01:14 79 14 30 09/22/18 01:00 80 18 109/49 (69) 97 09/22/18 00:00 79 09/22/18 00:00 30 09/22/18 00:00 65 14 109/46 (67) 97 09/22/18 00:00 Mechanical Ventilator 09/21/18 23:24 80 14 97 Mechanical Ventilator 30 09/21/18 23:09 80 15 30 09/21/18 23:08 30 09/21/18 23:07 68 14 97 Mechanical Ventilator 30 Accucheck: 231 Critical Care - Subjective ROS Limited/Unobtainable: No FI02: 30 Vent Support Breath Rate: 14 Vent Support Mode: AC Vent Tidal Volume: 500 Sputum Amount: Scant PEEP: 5.0 PIP: 25 Tube Feeding Amount: 60 I&O: Intake and Output 09/21/18 09/22/18 19:00 07:00 Intake Total 615 ml 1505.00 ml Output Total 1110 ml 925 ml Balance -495 ml 580.00 ml Intake Free Water 250 ml IV Total 75 ml 535.00 ml Tube Feeding 540 ml 720 ml Output Urine Total 1110 ml 925 ml # Bowel Movements 1 2 ET-Tube: 7.0 ET Position: 22 Marcelo Swift MD Sep 22, 2018 23:07
[2018-09-23] VITALS (24 sets, daily range): BP systolic 96–133; BP diastolic 44–77
--- NOTE | 2018-09-23 01:00 | NUR ---
NURSE NOTES: Vanco trough 11. [facility] Rx redosed Vanco to 1.5grams.
[2018-09-23] MEDS: Vancomycin 1.5gm Premix IVPB SCH (01:10)
[2018-09-23] MEDS: Albuterol/Ipratropium 3ml neb HHN SCH ×6 (03:59→22:41)
--- NOTE | 2018-09-23 04:00 | NUR ---
NURSE NOTES:Had 1 small diarrhea. Completed bath. Redressed GT exit site, no drainage, no redness. Redressed sacral wound as well as left ear wound. Bilat heels pinkish, no DTI noted. Platar skin very dry, A&D ointment applied. Afberile. PICC line patent. NSR. BP stable.
[2018-09-23] MEDS: NovoLOG Insulin Flexpen SUBQ SCH ×3 (05:56→17:17)
--- NOTE | 2018-09-23 06:42 | NUR ---
RESPIRATORY NOTE: Received pt on current settings. No resp distress noted. Vent plugged into red outlet. Alarms set and audible. Ambu bag at bedside. Will continue to monitor.
--- NOTE | 2018-09-23 07:01 | NUR ---
NURSE NOTES: Received report from FELIX Ruelas. Patient awake, eyes open without tracking. Afebrile. ETT 7.0/22cm, vent setting AC 14, TV 500, FiO2 30% and Peep 5. Gtube intact and running with Glucerna 1.2 60ml/hr. Nunez intact and draining with yellow urine. Left upper arm PICC line intact and clean, TKO. No acute distress/SOB noted. Keep HOB>30. Call-light placed in easy reach. Will continue plan of care.
--- NOTE | 2018-09-23 07:02 | NUR ---
HAND-OFF: Report given to Riki WASHINGTON.
[2018-09-23] MEDS ORDERED: Acetaminophen 650mg/20.3ml GT PRN (07:15)
[2018-09-23 07:35] LABS: BASOPHILS % (AUTO) 0.4 % (0.0-2.0); EOSINOPHILS % (AUTO) 1.9 % (0.0-3.0); HEMATOCRIT 33.1 % (37.0-47.0); HEMOGLOBIN 10.8 G/DL (12.0-16.0); LYMPHOCYTES % (AUTO) 19.1 % (20.0-45.0); MEAN CORPUSCULAR VOLUME 95 FL (80-99); MONOCYTES % (AUTO) 3.5 % (1.0-10.0); NEUTROPHILS % (AUTO) 75.2 % (45.0-75.0); PLATELET COUNT 529 K/UL (150-450); RED BLOOD COUNT 3.47 M/UL (4.20-5.40); RED CELL DISTRIBUTION WIDTH 13.6 % (11.6-14.8); WHITE BLOOD COUNT 8.7 K/UL (4.8-10.8)
[2018-09-23 08:20] LABS: ANION GAP 9 mmol/L (5-15); BLOOD UREA NITROGEN 9 mg/dL (7-18); CALCIUM 8.9 MG/DL (8.5-10.1); CARBON DIOXIDE 27 MMOL/L (21-32); CHLORIDE 110 MMOL/L (98-107); CREATININE 0.8 MG/DL (0.55-1.30); POTASSIUM 3.3 MMOL/L (3.5-5.1); SODIUM 145 MMOL/L (136-145)
[2018-09-23] MEDS: Pantoprazole Inj IV SCH (08:42)
[2018-09-23] MEDS: Ascorbic Acid 500mg tab ORAL SCH ×2 (08:42→17:16)
[2018-09-23] MEDS: Heparin 5000 units/ml inj SUBQ SCH ×2 (08:43→20:44)
[2018-09-23] MEDS: Docusate 100mg cap ORAL SCH ×2 (08:43→20:42)
--- NOTE | 2018-09-23 08:50 | NUR ---
NURSE NOTES: All due meds given.
--- NOTE | 2018-09-23 08:59 | NUR ---
RESPIRATORY NOTE: Placed pt on CPAP PS 8 @ 0858. Tolerating well. NO SOB. Current RSBI of 70. NIF -24. Leak test performed. VC with cuff inflated:418 With cuff deflated: 334. Will report findings to RN and MD. ABG in 30 min to monitor Po2.
--- NOTE | 2018-09-23 09:52 | NUR ---
NURSE NOTES: Seen by Dr. Vernon and new order carried out.
--- NOTE | 2018-09-23 10:05 | NUR ---
NURSE NOTES: Informed Dr. Swift that post 30 mins of CPAP. And new orders carried out.
--- NOTE | 2018-09-23 10:43 | NUR ---
NURSE NOTES: Bed bath and oral care given. Will continue plan of care.
[2018-09-23] MEDS: D5 1/2NS w/KCl 20mEq 1,000 ML IV SCH (11:06)
--- NOTE | 2018-09-23 11:49 | General Progress Note ---
Assessment/Plan Status: unchanged Assessment/Plan: 77 y/o F with acute hypoxemic respiratory failure and sepsis admitted to ICU # Acute hypoxemic respiratory failure - suspect very low prognosis given neurologic status, family does not want trache - Intubated in the ER and ICU management by language tutor appreciated. - Serial ABG and CXR as needed. - Supportive care - HHN as needed - positive leak - trial of extubation? 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 - Nephrology follow up appreciated. 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 - R gaze preference noted. # Hypertension - Monitor and resume home medications not needed now due to hypotension. # History of dementia - Supportive care - SW to attempt to find family members # DVT and GI ppx # FULL CODE by records. - CM / SW follow up for family is needed. Subjective Date patient seen: Sep 23, 2018 Time patient seen: 10:00 ROS Limited/Unobtainable: Yes Allergies: Coded Allergies: No Known Allergies (Unverified , 02/04/17) Subjective tmax 100.0 after zosyn changed to merrem + Cuff leak neurologically the same Objective Last 24 Hour Vital Signs Date Time Temp Pulse Resp B/P (MAP) Pulse Ox O2 Delivery O2 Flow Rate FiO2 09/23/18 11:00 70 15 117/54 (75) 98 09/23/18 10:49 70 14 99 Mechanical Ventilator 30 09/23/18 10:42 73 14 30 09/23/18 10:42 73 15 96 Mechanical Ventilator 30 8/11/19 10:04 30 09/23/18 10:00 81 23 130/62 (84) 95 09/23/18 09:00 30 09/23/18 09:00 82 21 130/59 (82) 95 09/23/18 08:59 98 09/23/18 08:59 80 23 30 30 09/23/18 08:00 30 09/23/18 08:00 70 09/23/18 08:00 98.5 74 14 108/48 (68) 98 09/23/18 08:00 Mechanical Ventilator 09/23/18 07:00 76 14 118/57 (77) 98 09/23/18 06:48 80 14 98 Mechanical Ventilator 30 09/23/18 06:43 80 14 96 Mechanical Ventilator 30 09/23/18 06:43 80 15 30 09/23/18 06:00 80 15 124/54 (77) 97 09/23/18 05:22 84 4 30 09/23/18 05:00 79 14 126/49 (74) 97 09/23/18 04:09 84 14 99 Mechanical Ventilator 30 09/23/18 04:00 30 09/23/18 04:00 75 09/23/18 04:00 Mechanical Ventilator 09/23/18 04:00 97.8 77 14 117/72 (87) 100 09/23/18 03:59 80 14 98 Mechanical Ventilator 30 09/23/18 03:30 80 15 30 09/23/18 03:00 65 14 106/44 (64) 96 09/23/18 02:00 79 14 126/54 (78) 98 09/23/18 01:00 77 14 113/51 (71) 96 09/23/18 00:32 81 14 99 Mechanical Ventilator 30 09/23/18 00:32 81 14 30 09/23/18 00:00 30 09/23/18 00:00 98.5 81 16 133/53 (79) 98 09/23/18 00:00 Mechanical Ventilator 09/23/18 00:00 75 09/22/18 23:49 77 14 98 Mechanical Ventilator 30 09/22/18 23:47 66 14 30 09/22/18 23:00 88 15 128/49 (75) 98 09/22/18 22:00 69 14 117/45 (69) 98 09/22/18 21:08 73 14 100 Mechanical Ventilator 30 09/22/18 21:08 66 14 30 09/22/18 21:00 66 14 112/42 (65) 99 09/22/18 20:00 Mechanical Ventilator 09/22/18 20:00 98.4 69 17 119/47 (71) 99 09/22/18 20:00 30 09/22/18 20:00 70 09/22/18 19:49 67 14 98 Mechanical Ventilator 30 09/22/18 19:49 67 14 30 09/22/18 19:00 64 14 108/44 (65) 99 09/22/18 18:00 69 14 100/45 (63) 99 09/22/18 17:21 65 14 30 09/22/18 17:00 63 23 111/44 (66) 97 09/22/18 16:00 77 09/22/18 16:00 98.5 73 24 95/40 (58) 98 09/22/18 16:00 30 09/22/18 16:00 Mechanical Ventilator 09/22/18 15:16 73 14 30 09/22/18 15:15 71 14 97 Mechanical Ventilator 30 09/22/18 15:08 81 14 99 Mechanical Ventilator 30 09/22/18 15:00 72 13 116/47 (70) 93 09/22/18 14:00 63 14 101/51 (68) 98 09/22/18 13:00 98.8 73 14 94/45 (61) 98 09/22/18 12:39 84 14 30 09/22/18 12:36 98.8 09/22/18 12:00 30 09/22/18 12:00 Mechanical Ventilator 09/22/18 12:00 92 09/22/18 12:00 100.0 92 15 137/52 (80) 97 09/22/18 11:50 88 19 30 Intake and Output 09/22/18 09/23/18 19:00 07:00 Intake Total 1120 ml 1635.0 ml Output Total 1295 ml 930 ml Balance -175 ml 705.0 ml Intake Free Water 300 ml 380 ml IV Total 100 ml 535.0 ml Tube Feeding 720 ml 720 ml Output Urine Total 1295 ml 930 ml # Bowel Movements 4 2 Laboratory Tests 09/22/18 23:15: Vancomycin Level Trough 11.2 09/23/18 07:10: White Blood Count 8.7, Red Blood Count 3.47L, Hemoglobin 10.8L, Hematocrit 33.1L , Mean Corpuscular Volume 95, Mean Corpuscular Hemoglobin 31.1H, Mean Corpuscular Hemoglobin Concent 32.6, Red Cell Distribution Width 13.6, Platelet Count 529H, Mean Platelet Volume 6.0L, Neutrophils (%) (Auto) 75.2H, Lymphocytes (%) (Auto) 19.1L, Monocytes (%) (Auto) 3.5, Eosinophils (%) (Auto) 1.9, Basophils (%) (Auto) 0.4, Sodium Level 145, Potassium Level 3.3L, Chloride Level 110H, Carbon Dioxide Level 27, Anion Gap 9, Blood Urea Nitrogen 9, Creatinine 0.8, Estimat Glomerular Filtration Rate , Glucose Level 195H, Calcium Level 8.9, Magnesium Level 2.0 09/23/18 09:40: Arterial Blood pH 7.470H, Arterial Blood Partial Pressure CO2 37.6, Arterial Blood Partial Pressure O2 67.4L, Arterial Blood HCO3 26.8H, Arterial Blood Oxygen Saturation 93.5L, Arterial Blood Base Excess 3.1H, Ray Test Positive Height (Feet): 5 Height (Inches): 3.00 Weight (Pounds): 123 Objective GEN: intubated, eyes open, right side gaze preference HEENT: pupils 8mm and sluggish CV: RRR, no M, R, G, no jvd RESP: CTAB, no w/r/c ABD: normal bowel sounds, soft, non tender EXT: normal muscle tone, no tenderness NEURO: no changes, does not withdraw from pain, blinks to hand toward face, no tracking Desiree Helm DO Sep 23, 2018 11:49
--- NOTE | 2018-09-23 12:02 | NUR ---
NURSE NOTES: Repositioned patient. Oral care provided.
--- NOTE | 2018-09-23 12:07 | Nephrology Progress Note ---
Assessment/Plan Problem List: (1) KEL (acute kidney injury) (2) Respiratory failure (3) Dehydration (4) Electrolyte imbalance (5) G tube feedings (6) Hypokalemia (7) CVA, old, hemiparesis (8) DM (diabetes mellitus) Plan antibiotics Pulm support correct lytes BS and BP check and monitor per consultants Subjective ROS Limited/Unobtainable: Yes Objective Objective Last 24 Hour Vital Signs Date Time Temp Pulse Resp B/P (MAP) Pulse Ox O2 Delivery O2 Flow Rate FiO2 09/23/18 12:00 Mechanical Ventilator 09/23/18 11:00 70 15 117/54 (75) 98 09/23/18 10:49 70 14 99 Mechanical Ventilator 30 09/23/18 10:42 73 14 30 09/23/18 10:42 73 15 96 Mechanical Ventilator 30 09/23/18 10:04 30 09/23/18 10:00 81 23 130/62 (84) 95 09/23/18 09:00 30 09/23/18 09:00 82 21 130/59 (82) 95 09/23/18 08:59 98 09/23/18 08:59 80 23 30 30 09/23/18 08:00 30 09/23/18 08:00 70 09/23/18 08:00 98.5 74 14 108/48 (68) 98 09/23/18 08:00 Mechanical Ventilator 09/23/18 07:00 76 14 118/57 (77) 98 09/23/18 06:48 80 14 98 Mechanical Ventilator 30 09/23/18 06:43 80 14 96 Mechanical Ventilator 30 09/23/18 06:43 80 15 30 09/23/18 06:00 80 15 124/54 (77) 97 09/23/18 05:22 84 4 30 09/23/18 05:00 79 14 126/49 (74) 97 09/23/18 04:09 84 14 99 Mechanical Ventilator 30 09/23/18 04:00 30 09/23/18 04:00 75 09/23/18 04:00 Mechanical Ventilator 09/23/18 04:00 97.8 77 14 117/72 (87) 100 09/23/18 03:59 80 14 98 Mechanical Ventilator 30 09/23/18 03:30 80 15 30 09/23/18 03:00 65 14 106/44 (64) 96 09/23/18 02:00 79 14 126/54 (78) 98 09/23/18 01:00 77 14 113/51 (71) 96 09/23/18 00:32 81 14 99 Mechanical Ventilator 30 09/23/18 00:32 81 14 30 09/23/18 00:00 30 09/23/18 00:00 98.5 81 16 133/53 (79) 98 09/23/18 00:00 Mechanical Ventilator 09/23/18 00:00 75 09/22/18 23:49 77 14 98 Mechanical Ventilator 30 09/22/18 23:47 66 14 30 09/22/18 23:00 88 15 128/49 (75) 98 09/22/18 22:00 69 14 117/45 (69) 98 09/22/18 21:08 73 14 100 Mechanical Ventilator 30 09/22/18 21:08 66 14 30 09/22/18 21:00 66 14 112/42 (65) 99 09/22/18 20:00 Mechanical Ventilator 09/22/18 20:00 98.4 69 17 119/47 (71) 99 09/22/18 20:00 30 09/22/18 20:00 70 09/22/18 19:49 67 14 98 Mechanical Ventilator 30 09/22/18 19:49 67 14 30 09/22/18 19:00 64 14 108/44 (65) 99 09/22/18 18:00 69 14 100/45 (63) 99 09/22/18 17:21 65 14 30 09/22/18 17:00 63 23 111/44 (66) 97 09/22/18 16:00 77 09/22/18 16:00 98.5 73 24 95/40 (58) 98 09/22/18 16:00 30 09/22/18 16:00 Mechanical Ventilator 09/22/18 15:16 73 14 30 09/22/18 15:15 71 14 97 Mechanical Ventilator 30 09/22/18 15:08 81 14 99 Mechanical Ventilator 30 09/22/18 15:00 72 13 116/47 (70) 93 09/22/18 14:00 63 14 101/51 (68) 98 09/22/18 13:00 98.8 73 14 94/45 (61) 98 09/22/18 12:39 84 14 30 09/22/18 12:36 98.8 Intake and Output 09/22/18 09/23/18 19:00 07:00 Intake Total 1120 ml 1635.0 ml Output Total 1295 ml 930 ml Balance -175 ml 705.0 ml Intake Free Water 300 ml 380 ml IV Total 100 ml 535.0 ml Tube Feeding 720 ml 720 ml Output Urine Total 1295 ml 930 ml # Bowel Movements 4 2 Laboratory Tests 09/22/18 23:15: Vancomycin Level Trough 11.2 09/23/18 07:10: White Blood Count 8.7, Red Blood Count 3.47L, Hemoglobin 10.8L, Hematocrit 33.1L , Mean Corpuscular Volume 95, Mean Corpuscular Hemoglobin 31.1H, Mean Corpuscular Hemoglobin Concent 32.6, Red Cell Distribution Width 13.6, Platelet Count 529H, Mean Platelet Volume 6.0L, Neutrophils (%) (Auto) 75.2H, Lymphocytes (%) (Auto) 19.1L, Monocytes (%) (Auto) 3.5, Eosinophils (%) (Auto) 1.9, Basophils (%) (Auto) 0.4, Sodium Level 145, Potassium Level 3.3L, Chloride Level 110H, Carbon Dioxide Level 27, Anion Gap 9, Blood Urea Nitrogen 9, Creatinine 0.8, Estimat Glomerular Filtration Rate , Glucose Level 195H, Calcium Level 8.9, Magnesium Level 2.0 09/23/18 09:40: Arterial Blood pH 7.470H, Arterial Blood Partial Pressure CO2 37.6, Arterial Blood Partial Pressure O2 67.4L, Arterial Blood HCO3 26.8H, Arterial Blood Oxygen Saturation 93.5L, Arterial Blood Base Excess 3.1H, Ray Test Positive Height (Feet): 5 Height (Inches): 3.00 Weight (Pounds): 123 General Appearance: no apparent distress EENT: other - vented Cardiovascular: normal rate Respiratory/Chest: decreased breath sounds Abdomen: distended Dwayne Vernon MD Sep 23, 2018 12:07
--- NOTE | 2018-09-23 12:32 | Surgery Progress Note ---
Surgery Progress Note Subjective Additional Comments no acute events on vent support labs noted considerations for extubation soon Objective Last 24 Hour Vital Signs Date Time Temp Pulse Resp B/P (MAP) Pulse Ox O2 Delivery O2 Flow Rate FiO2 09/23/18 12:00 Mechanical Ventilator 09/23/18 12:00 98.6 87 21 123/53 (76) 97 09/23/18 11:00 70 15 117/54 (75) 98 09/23/18 10:49 70 14 99 Mechanical Ventilator 30 09/23/18 10:42 73 14 30 09/23/18 10:42 73 15 96 Mechanical Ventilator 30 09/23/18 10:04 30 09/23/18 10:00 81 23 130/62 (84) 95 09/23/18 09:00 30 09/23/18 09:00 82 21 130/59 (82) 95 09/23/18 08:59 98 09/23/18 08:59 80 23 30 30 09/23/18 08:00 30 09/23/18 08:00 70 09/23/18 08:00 98.5 74 14 108/48 (68) 98 09/23/18 08:00 Mechanical Ventilator 09/23/18 07:00 76 14 118/57 (77) 98 09/23/18 06:48 80 14 98 Mechanical Ventilator 30 09/23/18 06:43 80 14 96 Mechanical Ventilator 30 09/23/18 06:43 80 15 30 09/23/18 06:00 80 15 124/54 (77) 97 09/23/18 05:22 84 4 30 09/23/18 05:00 79 14 126/49 (74) 97 09/23/18 04:09 84 14 99 Mechanical Ventilator 30 09/23/18 04:00 30 09/23/18 04:00 75 09/23/18 04:00 Mechanical Ventilator 09/23/18 04:00 97.8 77 14 117/72 (87) 100 09/23/18 03:59 80 14 98 Mechanical Ventilator 30 09/23/18 03:30 80 15 30 09/23/18 03:00 65 14 106/44 (64) 96 09/23/18 02:00 79 14 126/54 (78) 98 09/23/18 01:00 77 14 113/51 (71) 96 09/23/18 00:32 81 14 99 Mechanical Ventilator 30 09/23/18 00:32 81 14 30 09/23/18 00:00 30 09/23/18 00:00 98.5 81 16 133/53 (79) 98 09/23/18 00:00 Mechanical Ventilator 09/23/18 00:00 75 09/22/18 23:49 77 14 98 Mechanical Ventilator 30 09/22/18 23:47 66 14 30 09/22/18 23:00 88 15 128/49 (75) 98 09/22/18 22:00 69 14 117/45 (69) 98 09/22/18 21:08 73 14 100 Mechanical Ventilator 30 09/22/18 21:08 66 14 30 09/22/18 21:00 66 14 112/42 (65) 99 09/22/18 20:00 Mechanical Ventilator 09/22/18 20:00 98.4 69 17 119/47 (71) 99 09/22/18 20:00 30 09/22/18 20:00 70 09/22/18 19:49 67 14 98 Mechanical Ventilator 30 09/22/18 19:49 67 14 30 09/22/18 19:00 64 14 108/44 (65) 99 09/22/18 18:00 69 14 100/45 (63) 99 09/22/18 17:21 65 14 30 09/22/18 17:00 63 23 111/44 (66) 97 09/22/18 16:00 77 09/22/18 16:00 98.5 73 24 95/40 (58) 98 09/22/18 16:00 30 09/22/18 16:00 Mechanical Ventilator 09/22/18 15:16 73 14 30 09/22/18 15:15 71 14 97 Mechanical Ventilator 30 09/22/18 15:08 81 14 99 Mechanical Ventilator 30 09/22/18 15:00 72 13 116/47 (70) 93 09/22/18 14:00 63 14 101/51 (68) 98 09/22/18 13:00 98.8 73 14 94/45 (61) 98 09/22/18 12:39 84 14 30 09/22/18 12:36 98.8 I&O Intake and Output 09/22/18 09/23/18 19:00 07:00 Intake Total 1120 ml 1635.0 ml Output Total 1295 ml 930 ml Balance -175 ml 705.0 ml Intake Free Water 300 ml 380 ml IV Total 100 ml 535.0 ml Tube Feeding 720 ml 720 ml Output Urine Total 1295 ml 930 ml # Bowel Movements 4 2 Dressing: saturated Wound: other Drains: other Cardiovascular: RSR Respiratory: clear, decreased breath sounds Abdomen: soft, non-tender, present bowel sounds, non-distended Extremities: no cyanosis Laboratory Tests Test 09/22/18 23:15 09/23/18 07:10 09/23/18 09:40 Vancomycin Level Trough 11.2 ug/mL (5.0-12.0) White Blood Count 8.7 K/UL (4.8-10.8) Red Blood Count 3.47 M/UL (4.20-5.40) L Hemoglobin 10.8 G/DL (12.0-16.0) L Hematocrit 33.1 % (37.0-47.0) L Mean Corpuscular Volume 95 FL (80-99) Mean Corpuscular Hemoglobin 31.1 PG (27.0-31.0) H Mean Corpuscular Hemoglobin Concent 32.6 G/DL (32.0-36.0) Red Cell Distribution Width 13.6 % (11.6-14.8) Platelet Count 529 K/UL (150-450) H Mean Platelet Volume 6.0 FL (6.5-10.1) L Neutrophils (%) (Auto) 75.2 % (45.0-75.0) H Lymphocytes (%) (Auto) 19.1 % (20.0-45.0) L Monocytes (%) (Auto) 3.5 % (1.0-10.0) Eosinophils (%) (Auto) 1.9 % (0.0-3.0) Basophils (%) (Auto) 0.4 % (0.0-2.0) Sodium Level 145 MMOL/L (136-145) Potassium Level 3.3 MMOL/L (3.5-5.1) L Chloride Level 110 MMOL/L (98-107) H Carbon Dioxide Level 27 MMOL/L (21-32) Anion Gap 9 mmol/L (5-15) Blood Urea Nitrogen 9 mg/dL (7-18) Creatinine 0.8 MG/DL (0.55-1.30) Estimat Glomerular Filtration Rate mL/min (>60) Glucose Level 195 MG/DL (74-106) H Calcium Level 8.9 MG/DL (8.5-10.1) Magnesium Level 2.0 MG/DL (1.8-2.4) Arterial Blood pH 7.470 (7.350-7.450) Arterial Blood Partial Pressure CO2 37.6 mmHg (35.0-45.0) Arterial Blood Partial Pressure O2 67.4 mmHg (75.0-100.0) L Arterial Blood HCO3 26.8 mmol/L (22.0-26.0) H Arterial Blood Oxygen Saturation 93.5 % (95-100) L Arterial Blood Base Excess 3.1 (-2-2) H Ray Test Positive Plan Problems: (1) Sepsis Assessment & Plan: 77-year-old female presented to [facility] in distress found to be septic with leukocytosis tachycardia and requiring ventilatory support. Patient's labs noted and significant abnormal. Lactic acidosis. Severe dehydration. Admit to intensive care unit IV fluids Vent support - cont with weaning trial. looks okay for extubation soon IV antibiotics as per infectious disease Trend labs A.m. chest x-ray okay for tube feeds ICU care Leukocytosis improving. Labs improving. US noted wean vent for extubation We will follow with recommendations Thank you for allowing me to participate in patient's care (2) Lactic acid acidosis (3) Upper sacral area unstageable pressure ulcer (4) G tube feedings Assessment & Plan: DAILY ESTIMATED NEEDS: Needs based on Critical care, sepsis, wound, DM 53.6kg 25-32 kcals/kg 3951-0477 total kcals 1.25-2 g protein/kg 67-107 g total protein 25-32ml/kcal mL/kg 8303-0983 total fluid mLs NUTRITION DIAGNOSIS: 1) Swallowing difficulty R/T dysphagia, CVA as evidenced by PEG dependent, now orally intubated. 2) Increased kcal and pro needs r/t sepsis and wound healing as evidenced by elev BG and POC (200-400's), elev WBC (15.7), febrile (Tmax 100.9), elev Na (148), sacral wound/ unstageable per MD. CURRENT TF: Glucerna 1.2 @60 hrs ENTERAL NUTRITION RECOMMENDATIONS: Glucerna 1.2 @55ml/hr x24 hrs + Prosource x1 daily to provide 1320ml, 1584 kcal, 79g + 11g pro, 1063ml free H2O - Maintain Glucerna 1.2 -> Rec to REDUCE RATE to goal of 55ml/hr - Add Prosource x1 daily to better meet est pro needs - HOB over 30 degrees - Flush per MD-> 150q6 for added 600ml free fluid per day (1063ml from TF + 600ml flushes= 1663ml free fluid per day). ------ ADDITIONAL RECOMMENDATIONS: 1) Monitor hydration status 2) Obtain an accurate calibrated bed scale wt 3) Lytes daily on TF/ replete as needed 4) Rec increase hypoglycemic agents for improved BG control 5) Sacral wound: add AYDEE BID via PEG daily + Vit C 250mg BID daily via GT (5) Respiratory failure (6) Ventilator dependence Akhil Jackson Sep 23, 2018 12:32
--- NOTE | 2018-09-23 12:56 | NUR ---
HAND-OFF: Report given to FELIX Smith. Endorsed plan of care.
--- NOTE | 2018-09-23 13:00 | NUR ---
NURSE NOTES: Received pt from FELIX Lyn. patient opens eyes upon voice stimuli but unable to track and cannot follow commands. orally intubated ETT 7.0/22cm at lip line. Vent settings: AC 14/TV500/Fio2 40%/+5, oxygen saturation 100%. Breathing even and unlabored, Crackles heard bilateral breath sounds. Sinus rhythm on pullman clerk. PEG clamped and GT on hold due to possible extubation per Dr. Swift. Abdomen is round, non-tender, slightly distended. OPHELIA PICC running D%1/2NS with 20meq KCL @50cc/hr. Bed locked, alarmed and in lowest position.
--- NOTE | 2018-09-23 15:18 | NUR ---
NURSE NOTES: Turned and repositioned. oral care done. IVF infusing well. Kept dry and clean.
--- NOTE | 2018-09-23 15:28 | Infectious Diseases Prog Note ---
Assessment/Plan Assessment/Plan ASSESSMENT AND PLAN: 1. sepsis, mrsa pna, klebsiella pneumonia, aspiration risk, leukocytosis, fevers , sirs, ua le neg, mrsa colonization - meropenem and vancomycin - f/u on labs and chest x-ray, f/u on cultures - weaning per pulmonary medicine - monitor clinically, icu supportive care, vent care 2. ICU care. 3. Skin care protocol. 4. History of CVA and TIA, and aspiration risk. 5. Dementia. 6. Hypertension. 7. Blood pressure treatment per primary. 8. Acute kidney injury. 9. Weakness. 10. Hemiplegia. 11. Dysphagia, G-tube. 12. Encephalopathy. 13. No known drug allergies. 14. Social history is negative. 15. Family history is noncontributory. 16. MAR was noted. 17. Case discussed with RN. 18. Continue treatment per primary consultants. 19. Notes and records were noted. Orders were entered. 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, vre colonization Subjective Constitutional: Reports: fever - fever curve better , fatigue, other - opens eyes HEENT: Reports: congestion Respiratory: Reports: shortness of breath, other - on vent Cardiovascular: Denies: chest pain Gastrointestinal/Abdominal: Denies: nausea, vomiting, diarrhea Genitourinary: Reports: other - + taylor Neurologic: Reports: weakness, other - more aert Psychiatric: Reports: other - NA Skin: Denies: rash Hematologic: Denies: bleeding Musculoskeletal: Reports: pain - controlled Allergies: Coded Allergies: No Known Allergies (Unverified , 02/04/17) Objective Vital Signs Last 24 Hour Vital Signs Date Time Temp Pulse Resp B/P (MAP) Pulse Ox O2 Delivery O2 Flow Rate FiO2 09/23/18 14:50 78 14 30 09/23/18 14:50 74 14 100 Mechanical Ventilator 30 09/23/18 14:50 76 14 98 Mechanical Ventilator 30 09/23/18 14:00 68 14 125/77 (93) 100 09/23/18 13:00 98.9 78 21 125/54 (77) 98 09/23/18 12:50 80 14 30 09/23/18 12:00 Mechanical Ventilator 09/23/18 12:00 98 09/23/18 12:00 98.6 87 21 123/53 (76) 97 09/23/18 11:00 70 15 117/54 (75) 98 09/23/18 10:49 70 14 99 Mechanical Ventilator 30 09/23/18 10:42 73 14 30 09/23/18 10:42 73 15 96 Mechanical Ventilator 30 09/23/18 10:04 30 09/23/18 10:00 81 23 130/62 (84) 95 09/23/18 09:00 30 09/23/18 09:00 82 21 130/59 (82) 95 09/23/18 08:59 98 09/23/18 08:59 80 23 30 30 09/23/18 08:00 30 09/23/18 08:00 70 09/23/18 08:00 98.5 74 14 108/48 (68) 98 09/23/18 08:00 Mechanical Ventilator 09/23/18 07:00 76 14 118/57 (77) 98 09/23/18 06:48 80 14 98 Mechanical Ventilator 30 09/23/18 06:43 80 14 96 Mechanical Ventilator 30 09/23/18 06:43 80 15 30 09/23/18 06:00 80 15 124/54 (77) 97 09/23/18 05:22 84 4 30 09/23/18 05:00 79 14 126/49 (74) 97 09/23/18 04:09 84 14 99 Mechanical Ventilator 30 09/23/18 04:00 30 09/23/18 04:00 75 09/23/18 04:00 Mechanical Ventilator 09/23/18 04:00 97.8 77 14 117/72 (87) 100 09/23/18 03:59 80 14 98 Mechanical Ventilator 30 09/23/18 03:30 80 15 30 09/23/18 03:00 65 14 106/44 (64) 96 09/23/18 02:00 79 14 126/54 (78) 98 09/23/18 01:00 77 14 113/51 (71) 96 09/23/18 00:32 81 14 99 Mechanical Ventilator 30 09/23/18 00:32 81 14 30 09/23/18 00:00 30 09/23/18 00:00 98.5 81 16 133/53 (79) 98 09/23/18 00:00 Mechanical Ventilator 09/23/18 00:00 75 09/22/18 23:49 77 14 98 Mechanical Ventilator 30 09/22/18 23:47 66 14 30 09/22/18 23:00 88 15 128/49 (75) 98 09/22/18 22:00 69 14 117/45 (69) 98 09/22/18 21:08 73 14 100 Mechanical Ventilator 30 09/22/18 21:08 66 14 30 09/22/18 21:00 66 14 112/42 (65) 99 09/22/18 20:00 Mechanical Ventilator 09/22/18 20:00 98.4 69 17 119/47 (71) 99 09/22/18 20:00 30 09/22/18 20:00 70 09/22/18 19:49 67 14 98 Mechanical Ventilator 30 09/22/18 19:49 67 14 30 09/22/18 19:00 64 14 108/44 (65) 99 09/22/18 18:00 69 14 100/45 (63) 99 09/22/18 17:21 65 14 30 09/22/18 17:00 63 23 111/44 (66) 97 09/22/18 16:00 77 09/22/18 16:00 98.5 73 24 95/40 (58) 98 09/22/18 16:00 30 09/22/18 16:00 Mechanical Ventilator Height (Feet): 5 Height (Inches): 3.00 Weight (Pounds): 123 General Appearance: other - on vent HEENT: normocephalic, atraumatic, anicteric, no JVD, other - oral - intubated Respiratory/Chest: crackles/rales, rhonchi - bilaterally Cardiovascular: normal rate, regular rhythm, no gallop/murmur, no JVD Abdomen: normal bowel sounds, soft, non tender, no organomegaly, non distended Genitourinary: other - + taylor - urine clear Extremities: no cyanosis Skin: no rash 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 Mild interstitial prominence. Pleural space: Small right pleural effusion, slightly worse. Improved small left pleural effusion. No pneumothorax. Heart: Unremarkable. No cardiomegaly. Mediastinum: Unremarkable. Bones/joints: Unremarkable. Tubes, lines and devices: Stable endotracheal tube. 09/18/18 - Chest x-ray - IMPRESSION: 1. Stable endotracheal tube. 2. Bibasilar lung atelectasis/airspace disease. Mild interstitial prominence. 3. Small right pleural effusion, slightly worse. Improved small left pleural effusion. Comparison: 09/15/2018 A single view chest radiograph was obtained. Findings: Endotracheal tube remains in good position. Pulmonary vascular congestion is present. Basilar atelectasis noted. Small bilateral pleural effusions are not excluded. IMPRESSION: Pulmonary vascular congestion Chest x-ray - 09/23/18 - IMPRESSION: 1. Subsegmental atelectasis versus infiltrates in bilateral lung bases, not significantly changed compared to the prior exam. 2. Possible small bilateral layering pleural effusions, also not significantly changed. 3. Mildly increased interstitial markings. This is nonspecific but may suggest mild pulmonary vascular congestion or a mild interstitial pneumonitis. Microbiology Date/Time Source Procedure Growth Status 09/21/18 19:00 Blood Blood Culture - Preliminary NO GROWTH AFTER 24 HOURS Resulted 09/21/18 23:40 Sputum Gram Stain - Final Resulted 09/21/18 23:40 Sputum Culture - Preliminary Gram Negative Esteban Resulted 09/21/18 19:50 Indwelling Cath Urine Culture - Preliminary Resulted Laboratory Tests Test 09/22/18 23:15 09/23/18 07:10 09/23/18 09:40 Vancomycin Level Trough 11.2 ug/mL (5.0-12.0) White Blood Count 8.7 K/UL (4.8-10.8) Red Blood Count 3.47 M/UL (4.20-5.40) L Hemoglobin 10.8 G/DL (12.0-16.0) L Hematocrit 33.1 % (37.0-47.0) L Mean Corpuscular Volume 95 FL (80-99) Mean Corpuscular Hemoglobin 31.1 PG (27.0-31.0) H Mean Corpuscular Hemoglobin Concent 32.6 G/DL (32.0-36.0) Red Cell Distribution Width 13.6 % (11.6-14.8) Platelet Count 529 K/UL (150-450) H Mean Platelet Volume 6.0 FL (6.5-10.1) L Neutrophils (%) (Auto) 75.2 % (45.0-75.0) H Lymphocytes (%) (Auto) 19.1 % (20.0-45.0) L Monocytes (%) (Auto) 3.5 % (1.0-10.0) Eosinophils (%) (Auto) 1.9 % (0.0-3.0) Basophils (%) (Auto) 0.4 % (0.0-2.0) Sodium Level 145 MMOL/L (136-145) Potassium Level 3.3 MMOL/L (3.5-5.1) L Chloride Level 110 MMOL/L (98-107) H Carbon Dioxide Level 27 MMOL/L (21-32) Anion Gap 9 mmol/L (5-15) Blood Urea Nitrogen 9 mg/dL (7-18) Creatinine 0.8 MG/DL (0.55-1.30) Estimat Glomerular Filtration Rate mL/min (>60) Glucose Level 195 MG/DL (74-106) H Calcium Level 8.9 MG/DL (8.5-10.1) Magnesium Level 2.0 MG/DL (1.8-2.4) Arterial Blood pH 7.470 (7.350-7.450) Arterial Blood Partial Pressure CO2 37.6 mmHg (35.0-45.0) Arterial Blood Partial Pressure O2 67.4 mmHg (75.0-100.0) L Arterial Blood HCO3 26.8 mmol/L (22.0-26.0) H Arterial Blood Oxygen Saturation 93.5 % (95-100) L Arterial Blood Base Excess 3.1 (-2-2) H Ray Test Positive Current Medications Medications (Trade) Dose Ordered Sig/Wayne Route PRN Reason Start Time Stop Time Status Last Admin Dose Admin Acetaminophen (Tylenol) 650 mg Q4H PRN GT Mild Pain/Temp > 100.5 09/23/18 07:15 10/23/18 07:14 Acetylcysteine (Mucomyst) 100 mg Q4HRT [facility] 09/21/18 19:00 10/21/18 18:59 09/23/18 14:49 Albuterol/ Ipratropium (Albuterol/ Ipratropium) 3 ml Q4HRT [facility] 09/21/18 19:00 09/26/18 18:59 09/23/18 14:49 Artificial Tears (Akwa-Tears) 1 drop Q4H PRN BOTH EYES Dry Eyes 09/18/18 12:30 10/18/18 12:29 Ascorbic Acid (Vitamin C) 250 mg TWICE A DAY ORAL 09/18/18 18:00 10/18/18 17:59 09/23/18 08:42 Bisacodyl (Dulcolax) 10 mg DAILYPRN PRN RECTAL Constipation 09/14/18 12:45 10/14/18 12:44 Chlorhexidine Gluconate (Kamla-Hex 2%) 1 applic DAILY@2000 TOPIC 09/17/18 20:00 10/17/18 19:59 09/22/18 20:38 Dextrose (Dextrose 50%) 25 ml Q30M PRN IV Hypoglycemia 09/14/18 12:45 10/14/18 12:44 Dextrose (Dextrose 50%) 50 ml Q30M PRN IV Hypoglycemia 09/14/18 12:45 10/14/18 12:44 Dextrose/ Electrolytes 1,000 ml @ 50 mls/hr Q20H IV 09/23/18 11:00 10/23/18 10:59 09/23/18 11:06 Diphenhydramine HCl (Benadryl) 25 mg Q6H PRN ORAL Itching/Pruritis 09/14/18 12:45 10/14/18 12:44 Docusate Sodium (Colace) 100 mg EVERY 12 HOURS ORAL 09/14/18 21:00 10/14/18 20:59 09/20/18 20:53 Furosemide (Lasix) 20 mg DAILY GT 09/23/18 09:00 10/22/18 08:59 09/23/18 08:42 Heparin Sodium (Porcine) (Heparin 5000 units/ml) 5,000 units EVERY 12 HOURS SUBQ 09/14/18 21:00 10/14/18 20:59 09/23/18 08:43 Insulin Aspart (NovoLOG) Q6HR SUBQ 09/14/18 16:00 10/14/18 15:59 09/23/18 12:12 Insulin Detemir (Levemir) 12 units BEDTIME SUBQ 09/17/18 21:00 10/17/18 20:59 09/22/18 20:41 Magnesium Hydroxide (Mom) 30 ml HSPRN PRN ORAL Constipation 09/14/18 12:45 10/14/18 12:44 Meropenem 1 gm/ Sodium Chloride 100 ml @ 200 mls/hr Q8HR IVPB 09/21/18 22:00 09/26/18 21:59 09/23/18 14:07 Metoclopramide HCl (Reglan) 10 mg Q8H PRN IVP Nausea & Vomiting 09/17/18 12:30 10/17/18 12:29 Ondansetron HCl (Zofran) 4 mg Q6H PRN IVP Nausea & Vomiting 09/14/18 12:45 10/14/18 12:44 09/17/18 07:41 Pantoprazole (Protonix) 40 mg DAILY IV 09/15/18 09:00 10/15/18 08:59 09/23/18 08:42 Vancomycin HCl (Vanco rx to dose) 1 ea DAILY PRN MISC Per rx protocol 09/14/18 12:45 10/14/18 12:44 Vancomycin HCl/ Dextrose 275 ml @ 137.5 mls/ hr Q24H IVPB 09/23/18 01:00 09/28/18 00:59 09/23/18 01:10 Milton Valladares MD Sep 23, 2018 15:28
--- NOTE | 2018-09-23 16:47 | Hematology/Onc Progress Note ---
Assessment/Plan Assessment/Plan Assessment and Recs: # Thrombocytopenia --> now with thrombocytosis - potential causes multifactorial , evaluate liver and viral etiologies to begin, also could be related to underlying medications patient has received. --> Hep panel and HIV show neg results --> US abd shows no cirrhosis or hsm --> Peripheral smear ordered to evaluate for blasts /schistocytes --> abx and other meds have been reviewed --> ok for ppx if plt >50k w/ either heparin or lovenox --> Transfuse if Plt < 20k and fever, or if Plt < 10k without fever --> trend plts --> 182k-->160-->140-->119-->140k-->200k->529 --> asa but not at this time --> meds reviewed and may be 2/2 vanc and amikacin but at this time ok to continue since borderline # Anemia of iron deficiency, on iron now --> Anemia workup has been ordered, rule out gi bleed, shows AID --> No evidence of hemolysis is noted, peripheral smear has been reviewed --> Hgb goal >7. Transfuse prn. --> Iron to continue --> Medications have been reviewed --> hgb 12-->10.7-->11.3-->10.8 # Dysphagia and now s/p nG tube feedings --> as per gi, ng tube feedsings # Respo failure on vent --> per pulm/cc --> recs reviewed # Dehydration --> on ivfs, currently off per renal # Sepsis --> abx per id --> adjust as needed --> reviewed # DVT ppx with heparin sq The timing of this note does not necessarily reflect the time of the patient was seen. GREATLY APPRECIATE CONSULTATION. Subjective Constitutional: Denies: no symptoms, chills, fever, malaise, weakness, other Cardiovascular: Denies: no symptoms, chest pain, edema, irregular heart rate, lightheadedness, palpitations, syncope, other Respiratory: Denies: no symptoms, cough, shortness of breath, SOB with excertion, SOB at rest, sputum, wheezing, other Gastrointestinal/Abdominal: Denies: no symptoms, abdomen distended, abdominal pain, black stools, tarry stools, blood in stool, constipated, diarrhea, difficulty swallowing, nausea, poor appetite, poor fluid intake, rectal bleeding , vomiting, other Genitourinary: Denies: no symptoms, burning, discharge, frequency, flank pain, hematuria, incontinence, pain, urgency, other Neurologic/Psychiatric: Denies: no symptoms, anxiety, depressed, emotional problems, headache, numbness, paresthesia, pre-existing deficit, seizure, tingling, tremors, weakness, other Endocrine: Denies: no symptoms, excessive sweating, flushing, intolerance to cold, intolerance to heat, increased hunger, increased thirst, increased urine, unexplained weight gain, unexplained weight loss, other Allergies: Coded Allergies: No Known Allergies (Unverified , 02/04/17) Subjective 09/18: is on iron, as well as broad spectrum abx, labs reviewed 09/19: no events to report, angie Robertson rn, tfs ongoing via ng, on vent to wean protocol 09/20: remains intubated, unchanged 09/21: in icu, no major changes, no f/c, no night sweats 09/23: remains in the icu, considering extubation, no f/c noted Objective Objective Current Medications Medications (Trade) Dose Ordered Sig/Wayne Route PRN Reason Start Time Stop Time Status Last Admin Dose Admin Acetaminophen (Tylenol) 650 mg Q4H PRN GT Mild Pain/Temp > 100.5 09/23/18 07:15 10/23/18 07:14 Acetylcysteine (Mucomyst) 100 mg Q4HRT [facility] 09/21/18 19:00 10/21/18 18:59 09/23/18 14:49 Albuterol/ Ipratropium (Albuterol/ Ipratropium) 3 ml Q4HRT [facility] 09/21/18 19:00 09/26/18 18:59 09/23/18 14:49 Artificial Tears (Akwa-Tears) 1 drop Q4H PRN BOTH EYES Dry Eyes 09/18/18 12:30 10/18/18 12:29 Ascorbic Acid (Vitamin C) 250 mg TWICE A DAY ORAL 09/18/18 18:00 10/18/18 17:59 09/23/18 08:42 Bisacodyl (Dulcolax) 10 mg DAILYPRN PRN RECTAL Constipation 09/14/18 12:45 10/14/18 12:44 Chlorhexidine Gluconate (Kamla-Hex 2%) 1 applic DAILY@2000 TOPIC 09/17/18 20:00 10/17/18 19:59 09/22/18 20:38 Dextrose (Dextrose 50%) 25 ml Q30M PRN IV Hypoglycemia 09/14/18 12:45 10/14/18 12:44 Dextrose (Dextrose 50%) 50 ml Q30M PRN IV Hypoglycemia 09/14/18 12:45 10/14/18 12:44 Dextrose/ Electrolytes 1,000 ml @ 50 mls/hr Q20H IV 09/23/18 11:00 10/23/18 10:59 09/23/18 11:06 Diphenhydramine HCl (Benadryl) 25 mg Q6H PRN ORAL Itching/Pruritis 09/14/18 12:45 10/14/18 12:44 Docusate Sodium (Colace) 100 mg EVERY 12 HOURS ORAL 09/14/18 21:00 10/14/18 20:59 09/20/18 20:53 Furosemide (Lasix) 20 mg DAILY GT 09/23/18 09:00 10/22/18 08:59 09/23/18 08:42 Heparin Sodium (Porcine) (Heparin 5000 units/ml) 5,000 units EVERY 12 HOURS SUBQ 09/14/18 21:00 10/14/18 20:59 09/23/18 08:43 Insulin Aspart (NovoLOG) Q6HR SUBQ 09/14/18 16:00 10/14/18 15:59 09/23/18 12:12 Insulin Detemir (Levemir) 12 units BEDTIME SUBQ 09/17/18 21:00 10/17/18 20:59 09/22/18 20:41 Magnesium Hydroxide (Mom) 30 ml HSPRN PRN ORAL Constipation 09/14/18 12:45 10/14/18 12:44 Meropenem 1 gm/ Sodium Chloride 100 ml @ 200 mls/hr Q8HR IVPB 09/21/18 22:00 09/26/18 21:59 09/23/18 14:07 Metoclopramide HCl (Reglan) 10 mg Q8H PRN IVP Nausea & Vomiting 09/17/18 12:30 10/17/18 12:29 Ondansetron HCl (Zofran) 4 mg Q6H PRN IVP Nausea & Vomiting 09/14/18 12:45 10/14/18 12:44 09/17/18 07:41 Pantoprazole (Protonix) 40 mg DAILY IV 09/15/18 09:00 10/15/18 08:59 09/23/18 08:42 Vancomycin HCl (Vanco rx to dose) 1 ea DAILY PRN MISC Per rx protocol 09/14/18 12:45 10/14/18 12:44 Vancomycin HCl/ Dextrose 275 ml @ 137.5 mls/ hr Q24H IVPB 09/23/18 01:00 09/28/18 00:59 09/23/18 01:10 Last 24 Hour Vital Signs Date Time Temp Pulse Resp B/P (MAP) Pulse Ox O2 Delivery O2 Flow Rate FiO2 09/23/18 16:00 Mechanical Ventilator 09/23/18 16:00 80 14 114/48 (70) 95 09/23/18 16:00 83 09/23/18 16:00 30 09/23/18 15:00 81 14 101/71 (81) 95 09/23/18 14:50 78 14 30 09/23/18 14:50 74 14 100 Mechanical Ventilator 30 09/23/18 14:50 76 14 98 Mechanical Ventilator 30 09/23/18 14:00 68 14 125/77 (93) 100 09/23/18 13:00 98.9 78 21 125/54 (77) 98 09/23/18 12:50 80 14 30 09/23/18 12:00 Mechanical Ventilator 09/23/18 12:00 98 09/23/18 12:00 98.6 87 21 123/53 (76) 97 09/23/18 11:00 70 15 117/54 (75) 98 09/23/18 10:49 70 14 99 Mechanical Ventilator 30 09/23/18 10:42 73 14 30 09/23/18 10:42 73 15 96 Mechanical Ventilator 30 09/23/18 10:04 30 09/23/18 10:00 81 23 130/62 (84) 95 09/23/18 09:00 30 09/23/18 09:00 82 21 130/59 (82) 95 09/23/18 08:59 98 09/23/18 08:59 80 23 30 30 09/23/18 08:00 30 09/23/18 08:00 70 09/23/18 08:00 98.5 74 14 108/48 (68) 98 09/23/18 08:00 Mechanical Ventilator 09/23/18 07:00 76 14 118/57 (77) 98 09/23/18 06:48 80 14 98 Mechanical Ventilator 30 09/23/18 06:43 80 14 96 Mechanical Ventilator 30 09/23/18 06:43 80 15 30 09/23/18 06:00 80 15 124/54 (77) 97 09/23/18 05:22 84 4 30 09/23/18 05:00 79 14 126/49 (74) 97 09/23/18 04:09 84 14 99 Mechanical Ventilator 30 09/23/18 04:00 30 09/23/18 04:00 75 09/23/18 04:00 Mechanical Ventilator 09/23/18 04:00 97.8 77 14 117/72 (87) 100 09/23/18 03:59 80 14 98 Mechanical Ventilator 30 09/23/18 03:30 80 15 30 09/23/18 03:00 65 14 106/44 (64) 96 09/23/18 02:00 79 14 126/54 (78) 98 09/23/18 01:00 77 14 113/51 (71) 96 09/23/18 00:32 81 14 99 Mechanical Ventilator 30 09/23/18 00:32 81 14 30 09/23/18 00:00 30 09/23/18 00:00 98.5 81 16 133/53 (79) 98 09/23/18 00:00 Mechanical Ventilator 09/23/18 00:00 75 09/22/18 23:49 77 14 98 Mechanical Ventilator 30 09/22/18 23:47 66 14 30 09/22/18 23:00 88 15 128/49 (75) 98 09/22/18 22:00 69 14 117/45 (69) 98 09/22/18 21:08 73 14 100 Mechanical Ventilator 30 09/22/18 21:08 66 14 30 09/22/18 21:00 66 14 112/42 (65) 99 09/22/18 20:00 Mechanical Ventilator 09/22/18 20:00 98.4 69 17 119/47 (71) 99 09/22/18 20:00 30 09/22/18 20:00 70 09/22/18 19:49 67 14 98 Mechanical Ventilator 30 09/22/18 19:49 67 14 30 09/22/18 19:00 64 14 108/44 (65) 99 09/22/18 18:00 69 14 100/45 (63) 99 09/22/18 17:21 65 14 30 09/22/18 17:00 63 23 111/44 (66) 97 09/22/18 16:00 77 09/22/18 16:00 98.5 73 24 95/40 (58) 98 09/22/18 16:00 30 09/22/18 16:00 Mechanical Ventilator 09/22/18 15:16 73 14 30 09/22/18 15:15 71 14 97 Mechanical Ventilator 30 09/22/18 15:08 81 14 99 Mechanical Ventilator 30 09/22/18 15:00 72 13 116/47 (70) 93 09/22/18 14:00 63 14 101/51 (68) 98 09/22/18 13:00 98.8 73 14 94/45 (61) 98 09/22/18 12:39 84 14 30 09/22/18 12:36 98.8 09/22/18 12:00 30 09/22/18 12:00 Mechanical Ventilator 09/22/18 12:00 92 09/22/18 12:00 100.0 92 15 137/52 (80) 97 09/22/18 11:50 88 19 30 09/22/18 11:44 92 28 97 Mechanical Ventilator 30 09/22/18 11:35 80 27 99 Mechanical Ventilator 30 09/22/18 11:00 74 25 125/52 (76) 98 09/22/18 10:00 77 26 126/56 (79) 97 09/22/18 09:02 99 09/22/18 09:00 81 26 118/50 (72) 97 09/22/18 08:59 96 27 30 30 09/22/18 08:55 30 09/22/18 08:00 30 09/22/18 08:00 97 09/22/18 08:00 Mechanical Ventilator 09/22/18 08:00 99.0 93 17 158/72 (100) 97 09/22/18 07:29 86 14 100 Mechanical Ventilator 30 09/22/18 07:21 85 17 30 09/22/18 07:20 86 17 98 Mechanical Ventilator 30 09/22/18 07:00 97 18 146/56 (86) 09/22/18 06:00 81 16 131/59 (83) 09/22/18 05:14 79 14 30 09/22/18 05:00 89 20 137/61 (86) 76 09/22/18 04:00 76 09/22/18 04:00 Mechanical Ventilator 09/22/18 04:00 99.2 90 16 125/50 (75) 96 09/22/18 04:00 30 09/22/18 03:27 76 14 99 Mechanical Ventilator 30 09/22/18 03:14 30 09/22/18 03:13 69 14 99 Mechanical Ventilator 30 09/22/18 03:13 69 14 30 09/22/18 03:00 74 13 115/48 (70) 96 09/22/18 02:00 69 15 105/44 (64) 97 09/22/18 01:14 79 14 30 09/22/18 01:00 80 18 109/49 (69) 97 09/22/18 00:00 79 09/22/18 00:00 30 09/22/18 00:00 65 14 109/46 (67) 97 09/22/18 00:00 Mechanical Ventilator 09/21/18 23:24 80 14 97 Mechanical Ventilator 30 09/21/18 23:09 80 15 30 09/21/18 23:08 30 09/21/18 23:07 68 14 97 Mechanical Ventilator 30 09/21/18 23:00 98.9 69 14 99/44 (62) 97 09/21/18 22:00 62 14 81/42 (55) 97 09/21/18 21:06 77 14 30 09/21/18 21:00 82 15 103/45 (64) 96 09/21/18 20:00 99.1 73 14 117/45 (69) 97 09/21/18 20:00 76 09/21/18 20:00 Mechanical Ventilator 09/21/18 20:00 30 09/21/18 19:20 77 16 98 Mechanical Ventilator 30 09/21/18 19:11 74 15 98 Mechanical Ventilator 30 09/21/18 19:10 30 09/21/18 19:09 75 15 97 Mechanical Ventilator 30 09/21/18 19:08 75 15 97 Mechanical Ventilator 30 09/21/18 19:03 72 14 30 09/21/18 19:00 72 16 114/51 (72) 98 09/21/18 18:00 79 14 126/49 (74) 97 09/21/18 17:00 78 18 111/49 (69) 96 09/21/18 17:00 86 16 30 Intake and Output 09/22/18 09/23/18 18:59 06:59 Intake Total 1220 ml 1635.0 ml Output Total 1335 ml 930 ml Balance -115 ml 705.0 ml Intake Free Water 300 ml 380 ml IV Total 200 ml 535.0 ml Tube Feeding 720 ml 720 ml Output Urine Total 1335 ml 930 ml # Bowel Movements 4 2 Labs Test 09/21/18 09:23 09/22/18 05:40 09/22/18 07:20 09/22/18 23:15 Arterial Blood pH 7.496 (7.350-7.450) Arterial Blood Partial Pressure CO2 31.6 mmHg (35.0-45.0) Arterial Blood Partial Pressure O2 241.0 mmHg (75.0-100.0) Arterial Blood HCO3 23.9 mmol/L (22.0-26.0) Arterial Blood Oxygen Saturation 99.0 % (95-100) Arterial Blood Base Excess 1.2 (-2-2) Ray Test Positive White Blood Count 12.4 K/UL (4.8-10.8) Red Blood Count 3.79 M/UL (4.20-5.40) Hemoglobin 12.0 G/DL (12.0-16.0) Hematocrit 36.5 % (37.0-47.0) Mean Corpuscular Volume 96 FL (80-99) Mean Corpuscular Hemoglobin 31.6 PG (27.0-31.0) Mean Corpuscular Hemoglobin Concent 32.8 G/DL (32.0-36.0) Red Cell Distribution Width 14.0 % (11.6-14.8) Platelet Count 484 K/UL (150-450) Mean Platelet Volume 6.3 FL (6.5-10.1) Neutrophils (%) (Auto) % (45.0-75.0) Lymphocytes (%) (Auto) % (20.0-45.0) Monocytes (%) (Auto) % (1.0-10.0) Eosinophils (%) (Auto) % (0.0-3.0) Basophils (%) (Auto) % (0.0-2.0) Differential Total Cells Counted 100 Neutrophils % (Manual) 88 % (45-75) Lymphocytes % (Manual) 4 % (20-45) Monocytes % (Manual) 1 % (1-10) Eosinophils % (Manual) 0 % (0-3) Basophils % (Manual) 0 % (0-2) Band Neutrophils 7 % (0-8) Nucleated Red Blood Cells 1 /100 WBC Platelet Estimate Increased Platelet Morphology Normal Red Blood Cell Morphology Normal Sodium Level 143 MMOL/L (136-145) Potassium Level 3.5 MMOL/L (3.5-5.1) Chloride Level 108 MMOL/L (98-107) Carbon Dioxide Level 29 MMOL/L (21-32) Anion Gap 6 mmol/L (5-15) Blood Urea Nitrogen 8 mg/dL (7-18) Creatinine 0.7 MG/DL (0.55-1.30) Estimat Glomerular Filtration Rate mL/min (>60) Glucose Level 255 MG/DL (74-106) Calcium Level 9.0 MG/DL (8.5-10.1) Magnesium Level 1.8 MG/DL (1.8-2.4) Urine Color Pale yellow Urine Appearance Clear Urine pH 6.5 (4.5-8.0) Urine Specific [place] 1.010 (1.005-1.035) Urine Protein Negative (NEGATIVE) Urine Glucose (UA) 4+ (NEGATIVE) Urine Ketones Negative (NEGATIVE) Urine Blood 2+ (NEGATIVE) Urine Nitrite Negative (NEGATIVE) Urine Bilirubin Negative (NEGATIVE) Urine Urobilinogen Normal MG/DL (0.0-1.0) Urine Leukocyte Esterase Negative (NEGATIVE) Urine RBC 2-4 /HPF (0 - 2) Urine WBC 0-2 /HPF (0 - 2) Urine Squamous Epithelial Cells Occasional /LPF Urine Bacteria Occasional /HPF (NONE) Urine Yeast Many /HPF (NONE) Vancomycin Level Trough 11.2 ug/mL (5.0-12.0) Test 09/23/18 07:10 09/23/18 09:40 White Blood Count 8.7 K/UL (4.8-10.8) Red Blood Count 3.47 M/UL (4.20-5.40) Hemoglobin 10.8 G/DL (12.0-16.0) Hematocrit 33.1 % (37.0-47.0) Mean Corpuscular Volume 95 FL (80-99) Mean Corpuscular Hemoglobin 31.1 PG (27.0-31.0) Mean Corpuscular Hemoglobin Concent 32.6 G/DL (32.0-36.0) Red Cell Distribution Width 13.6 % (11.6-14.8) Platelet Count 529 K/UL (150-450) Mean Platelet Volume 6.0 FL (6.5-10.1) Neutrophils (%) (Auto) 75.2 % (45.0-75.0) Lymphocytes (%) (Auto) 19.1 % (20.0-45.0) Monocytes (%) (Auto) 3.5 % (1.0-10.0) Eosinophils (%) (Auto) 1.9 % (0.0-3.0) Basophils (%) (Auto) 0.4 % (0.0-2.0) Sodium Level 145 MMOL/L (136-145) Potassium Level 3.3 MMOL/L (3.5-5.1) Chloride Level 110 MMOL/L (98-107) Carbon Dioxide Level 27 MMOL/L (21-32) Anion Gap 9 mmol/L (5-15) Blood Urea Nitrogen 9 mg/dL (7-18) Creatinine 0.8 MG/DL (0.55-1.30) Estimat Glomerular Filtration Rate mL/min (>60) Glucose Level 195 MG/DL (74-106) Calcium Level 8.9 MG/DL (8.5-10.1) Magnesium Level 2.0 MG/DL (1.8-2.4) Arterial Blood pH 7.470 (7.350-7.450) Arterial Blood Partial Pressure CO2 37.6 mmHg (35.0-45.0) Arterial Blood Partial Pressure O2 67.4 mmHg (75.0-100.0) Arterial Blood HCO3 26.8 mmol/L (22.0-26.0) Arterial Blood Oxygen Saturation 93.5 % (95-100) Arterial Blood Base Excess 3.1 (-2-2) Ray Test Positive Height (Feet): 5 Height (Inches): 3.00 Weight (Pounds): 123 Objective Physical Exam: Vitals: reviewed General Appearance: NAD HEENT: normocephalic, atraumatic ++ogt Chest: normal breath sounds bilaterally ++ vent Cardiovascular: normal peripheral pulses, normal rate Abdomen: normal bowel sounds, soft, nontender ++ gtube Extremities: normal range of motion Mateo Wei MD Sep 23, 2018 16:46
--- NOTE | 2018-09-23 17:33 | NUR ---
HAND-OFF: Report given to FELIX Monreal using SBAR.
--- NOTE | 2018-09-23 17:38 | NUR ---
NURSE NOTES: Received pt from FELIX Smith. patient awake, opens eyes spontaneously, but unable to track and cannot follow commands. orally intubated ETT size 7.0, 22cm at lip line. Vent settings: AC 14, TV500, FIO2 40%, PEEP 5, oxygen saturation 100%. Breathing even and unlabored. No acute distress noted. Sinus rhythm noted on phototypesetting equipment monitor. G-tube intact and patent, running glucerna 1.2 at 60ml/hr. HOB kept elevated. Left upper arm PICC intact, running D51/2NS with 20meq KCL @50ml/hr. Nunez cath intact, draining urine by gravity. Patient on P200 mattress for wound care. Bed in lowest position, locked, side rails upx3. Bed alarm on. Will continue to monitor.
--- NOTE | 2018-09-23 18:00 | NUR ---
NURSE NOTES: Dr. Swift at bedside to assess the patient. Informed MD that there was no family members visited the patient today. okay to continue tube feeding and hold tube feeding tomorrow at 0400 for weaning trial.
--- NOTE | 2018-09-23 19:27 | NUR ---
HAND-OFF: Report given to FELIX Hernandez.
--- NOTE | 2018-09-23 19:30 | NUR ---
NURSE NOTES: Received pt and report from FELIX Monreal. Patient opens eyes upon voice stimuli but unable to track and cannot follow commands. Orally intubated ETT 7.0, 22cm at lip line. Vent settings: AC 14, TV500, Fio2 30%, PEEP 5, oxygen saturation 100%. Breathing even and unlabored, Crackles heard bilateral breath sounds. Sinus rhythm on library monitor. PEG running Glucerna 1.2 at 60ml/hr, at goal. Abdomen is round, non-tender, slightly distended. Left UA PICC running D5 1/2NS +20meq KCL @50cc/hr. Bed locked, alarmed and in lowest position.
[2018-09-23] MEDS: Dyna-Hex 2% Top Sol 2oz TOPIC SCH (20:42)
[2018-09-23] MEDS: Levemir Flexpen SUBQ SCH (20:45)
--- NOTE | 2018-09-23 21:14 | Pulmonolgy Critical Care Note ---
Critical Care - Asmt/Plan Assessment/Plan: Pulmonary CCM Progress Note Critical Care - Asmt/Plan Problems: (1) Endotracheally intubated (2) Ventilator dependence, not tolerating CPAP trials (3) Sepsis, on pressors PRN - antibiotics changed as febrile (4) Pneumonia (5) Electrolyte imbalance (6) Dehydration (7) Altered mental status (8) Hypernatremia (9) Respiratory failure (10) Lactic acid acidosis (11) H/O: CVA (cerebrovascular accident) (12) G tube feedings (13) KEL (acute kidney injury) Respiratory: monitor respiratory rate, adjust FIO2, ABG, other - HHN's, pulmonary hygiene, wean an tolerated Cardiac: continue to monitor HR/BP Renal: keep negative Infectious Disease: check cultures, continue antibiotics per ID Gastrointestinal: enteral feeding Endocrine: monitor blood sugar, continue sliding scale insulin Hematologic: monitor H/H Neurologic: keep patient comfortable - monitor MS, consider neuro eval and EEG Prophylaxis: Protonix, Heparin Disposition: keep in ICU Time Spent (Minutes): 40 Notes Reviewed: switchboard troubleshooter, renal, ID, other - ERMD Discussed with: nurses, consultants, other - FC Critical Care - Objective Vital Signs Noted Status: sedated - intubated Condition: critical HEENT: atraumatic, normocephalic, other - ETT OGT weak gag Lungs: rhonchi Heart: HR/BP stable Abdomen: soft, non-tender, active bowel sounds, feeding tube Extremities: no C/C/E Micro: Microbiology Date/Time Source Procedure Growth Status 09/14/18 09:00 Rectum Received Critical Care - Subjective ROS Limited/Unobtainable: Yes Interval Events: 77 F NHR h/o dementia, CVA, GT, HTN, HL remains on ACVC, not tolerating PS Na 167 Cr 1.7 LA elevated + hemoconcentration No gag in ER + faint gag now + F no C no further hx obtainable Condition: critical IV Access: peripheral - x2 EKG Rhythm: Sinus Rhythm FI02: 60 Vent Support Breath Rate: 14 Vent Support Mode: AC Vent Tidal Volume: 500 Sputum Amount: Small PEEP: 5.0 PIP: 23 Secretions: scant thick Subjective: ARLETTE CXR: L RC inf, small L eff, ETT ET-Tube: 7.0 ET Position: 22 Labs: Laboratory Tests noted Critical Care - Objective Last 24 Hour Vital Signs Date Time Temp Pulse Resp B/P (MAP) Pulse Ox O2 Delivery O2 Flow Rate FiO2 09/23/18 20:47 80 14 30 09/23/18 19:30 91 18 98 Mechanical Ventilator 30 09/23/18 19:15 73 14 30 09/23/18 19:14 74 14 95 Mechanical Ventilator 30 09/23/18 19:00 89 20 96/47 (63) 94 09/23/18 18:00 86 14 116/50 (72) 95 09/23/18 17:22 88 14 30 09/23/18 17:00 98.6 90 14 119/48 (71) 95 09/23/18 16:00 Mechanical Ventilator 09/23/18 16:00 80 14 114/48 (70) 95 09/23/18 16:00 83 09/23/18 16:00 30 09/23/18 15:00 81 14 101/71 (81) 95 09/23/18 14:50 78 14 30 09/23/18 14:50 74 14 100 Mechanical Ventilator 30 09/23/18 14:50 76 14 98 Mechanical Ventilator 30 09/23/18 14:00 68 14 125/77 (93) 100 09/23/18 13:00 98.9 78 21 125/54 (77) 98 09/23/18 12:50 80 14 30 09/23/18 12:00 Mechanical Ventilator 09/23/18 12:00 98 09/23/18 12:00 98.6 87 21 123/53 (76) 97 09/23/18 11:00 70 15 117/54 (75) 98 09/23/18 10:49 70 14 99 Mechanical Ventilator 30 09/23/18 10:42 73 14 30 09/23/18 10:42 73 15 96 Mechanical Ventilator 30 09/23/18 10:04 30 09/23/18 10:00 81 23 130/62 (84) 95 09/23/18 09:00 30 09/23/18 09:00 82 21 130/59 (82) 95 09/23/18 08:59 98 09/23/18 08:59 80 23 30 30 09/23/18 08:00 30 09/23/18 08:00 70 09/23/18 08:00 98.5 74 14 108/48 (68) 98 09/23/18 08:00 Mechanical Ventilator 09/23/18 07:00 76 14 118/57 (77) 98 09/23/18 06:48 80 14 98 Mechanical Ventilator 30 09/23/18 06:43 80 14 96 Mechanical Ventilator 30 09/23/18 06:43 80 15 30 09/23/18 06:00 80 15 124/54 (77) 97 09/23/18 05:22 84 4 30 09/23/18 05:00 79 14 126/49 (74) 97 09/23/18 04:09 84 14 99 Mechanical Ventilator 30 09/23/18 04:00 30 09/23/18 04:00 75 09/23/18 04:00 Mechanical Ventilator 09/23/18 04:00 97.8 77 14 117/72 (87) 100 09/23/18 03:59 80 14 98 Mechanical Ventilator 30 09/23/18 03:30 80 15 30 09/23/18 03:00 65 14 106/44 (64) 96 09/23/18 02:00 79 14 126/54 (78) 98 09/23/18 01:00 77 14 113/51 (71) 96 09/23/18 00:32 81 14 99 Mechanical Ventilator 30 09/23/18 00:32 81 14 30 09/23/18 00:00 30 09/23/18 00:00 98.5 81 16 133/53 (79) 98 09/23/18 00:00 Mechanical Ventilator 09/23/18 00:00 75 09/22/18 23:49 77 14 98 Mechanical Ventilator 30 09/22/18 23:47 66 14 30 09/22/18 23:00 88 15 128/49 (75) 98 09/22/18 22:00 69 14 117/45 (69) 98 Micro: Microbiology Date/Time Source Procedure Growth Status 09/21/18 19:00 Blood Blood Culture - Preliminary NO GROWTH AFTER 24 HOURS Resulted 09/21/18 23:40 Sputum Gram Stain - Final Resulted 09/21/18 23:40 Sputum Culture - Preliminary Gram Negative Esteban Resulted 09/21/18 19:50 Indwelling Cath Urine Culture - Preliminary Resulted Accucheck: 175 Critical Care - Subjective ROS Limited/Unobtainable: No FI02: 30 Vent Support Breath Rate: 14 Vent Support Mode: AC Vent Tidal Volume: 500 Sputum Amount: Small PEEP: 5.0 PIP: 30 Tube Feeding Amount: 60 I&O: Intake and Output 09/22/18 09/23/18 18:59 06:59 Intake Total 1220 ml 1635.0 ml Output Total 1335 ml 930 ml Balance -115 ml 705.0 ml Intake Free Water 300 ml 380 ml IV Total 200 ml 535.0 ml Tube Feeding 720 ml 720 ml Output Urine Total 1335 ml 930 ml # Bowel Movements 4 2 ET-Tube: 7.0 ET Position: 22 Marcelo Swift MD Sep 23, 2018 21:14
--- NOTE | 2018-09-23 22:00 | NUR ---
NURSE NOTES: Pt's resting in bed, in no acute distress. VS stable. Will continue to monitor.
--- NOTE | 2018-09-23 22:45 | NUR ---
NURSE NOTES: Endorsement received from FELIX Hernandez for continuity of care. Patient opens eyes, does not track. Orally intubated with ET 7.0, 22 lipline. AC 14 Vt500, 30% FiO2, PEEP 5. Left upper arm PICC. Ongoing D5 1/2 NS + KCl 20 meqs 50 ml/hr. GT patent and intact. Receiving Glucerna 1.2 at 60ml/hr. No residual. Head of bed elevated, Bed alarm on. Locked and in low position. Call light within reach.
--- NOTE | 2018-09-23 22:46 | NUR ---
NURSE NOTES: Addendum: Received patient at 50% FiO2
--- NOTE | 2018-09-23 23:00 | NUR ---
HAND-OFF: Report given to FELIX Lares.
[2018-09-24] VITALS (24 sets, daily range): BP systolic 92–147; BP diastolic 42–58
[2018-09-24] MEDS: NovoLOG Insulin Flexpen SUBQ SCH ×4 (00:12→17:15)
[2018-09-24] MEDS: Vancomycin 1.5gm Premix IVPB SCH (00:47)
--- NOTE | 2018-09-24 01:00 | NUR ---
NURSE NOTES: Sinus rhythm on the monitor. Afebrile. Oral care done
--- NOTE | 2018-09-24 03:00 | NUR ---
NURSE NOTES: Repositioned patient. Vital signs stable.
[2018-09-24] MEDS: Albuterol/Ipratropium 3ml neb HHN SCH ×6 (03:03→23:08)
[2018-09-24 04:42] LABS: BASOPHILS % (AUTO) 0.6 % (0.0-2.0); EOSINOPHILS % (AUTO) 1.7 % (0.0-3.0); HEMATOCRIT 33.9 % (37.0-47.0); LYMPHOCYTES % (AUTO) 19.3 % (20.0-45.0); MEAN CORPUSCULAR VOLUME 97 FL (80-99); MONOCYTES % (AUTO) 4.3 % (1.0-10.0); NEUTROPHILS % (AUTO) 74.2 % (45.0-75.0); PLATELET COUNT 527 K/UL (150-450); RED BLOOD COUNT 3.49 M/UL (4.20-5.40); RED CELL DISTRIBUTION WIDTH 13.9 % (11.6-14.8); WHITE BLOOD COUNT 10.3 K/UL (4.8-10.8)
[2018-09-24 04:50] LABS: ANION GAP 7 mmol/L (5-15); BLOOD UREA NITROGEN 8 mg/dL (7-18); CALCIUM 9.2 MG/DL (8.5-10.1); CARBON DIOXIDE 26 MMOL/L (21-32); CHLORIDE 107 MMOL/L (98-107); CREATININE 0.7 MG/DL (0.55-1.30); POTASSIUM 4.2 MMOL/L (3.5-5.1); SODIUM 140 MMOL/L (136-145)
--- NOTE | 2018-09-24 05:00 | NUR ---
NURSE NOTES: Bed bath, oral care, change of linens done.
[2018-09-24] MEDS: D5 1/2NS w/KCl 20mEq 1,000 ML IV SCH (05:53)
--- NOTE | 2018-09-24 07:01 | NUR ---
HAND-OFF: Report given to FELIX Lyn.
--- NOTE | 2018-09-24 07:21 | NUR ---
NURSE NOTES: Received report from FELIX Lares. patient awake and eyes open to verbal without tracking. ETT 7.0/22cm, Vent setting AC 14, TV 500, FiO2 30% and Peep 5. Gtube intact, clean and tube feeding has been held for weaning and possible extubation. Left upper arm PICC line intact, clean and running with D51/2NS with KCL 20meq at 50ml/hr. Afebrile. No acute distress/SOB noted. Call-light placed in easy reach. Will continue plan of care.
--- NOTE | 2018-09-24 07:41 | NUR ---
RESPIRATORY NOTES: Received Patient on Vent settings ACVC 14, VT 500, Fio2 30%, PEEP +5. Patient currently intubated with 7.0 ETT at 22 cm lip line. Patient awake and confused. Breath sounds are bilateral diminished throughout both lung manning. Suctioned small amount of clear secretions through ETT and bloody secretions orally. Vent plugged into red outlet. Alarms are on and audible. Will continue to monitor throughout the day.
--- NOTE | 2018-09-24 08:04 | NUR ---
RESPIRATORY NOTES: Patient failed weaning criteria. VT <150mL. Will continue on ACVC settings.
[2018-09-24] MEDS: Ascorbic Acid 500mg tab ORAL SCH ×2 (08:25→17:14)
[2018-09-24] MEDS: Pantoprazole Inj IV SCH (08:25)
[2018-09-24] MEDS: Heparin 5000 units/ml inj SUBQ SCH ×2 (08:26→20:59)
[2018-09-24] MEDS: Docusate 100mg cap ORAL SCH (08:26)
--- NOTE | 2018-09-24 09:19 | NUR ---
NURSE NOTES: Patient had brown soft small BM x1. Bed bath and oral care given. Will continue plan of care.
[2018-09-24] MEDS ORDERED: Sterile Water Irrig 1000ml IRRIG ONE (10:26)
--- NOTE | 2018-09-24 10:44 | Nephrology Progress Note ---
Assessment/Plan Problem List: (1) KEL (acute kidney injury) (2) Respiratory failure (3) Dehydration (4) Electrolyte imbalance (5) G tube feedings (6) Hypokalemia (7) CVA, old, hemiparesis (8) DM (diabetes mellitus) Plan failing weaning antibiotics Pulm support correct lytes BS and BP check and monitor per consultants Subjective ROS Limited/Unobtainable: Yes Objective Objective Last 24 Hour Vital Signs Date Time Temp Pulse Resp B/P (MAP) Pulse Ox O2 Delivery O2 Flow Rate FiO2 09/24/18 08:45 70 15 30 09/24/18 08:00 Mechanical Ventilator 09/24/18 08:00 98.5 66 14 125/52 (76) 100 09/24/18 07:00 73 14 100 Mechanical Ventilator 30 09/24/18 07:00 66 14 147/58 (87) 100 09/24/18 06:59 58 14 30 09/24/18 06:52 59 14 98 Mechanical Ventilator 30 09/24/18 06:30 30 09/24/18 06:00 64 14 138/51 (80) 98 09/24/18 05:09 58 14 30 09/24/18 05:00 59 14 127/51 (76) 100 09/24/18 04:00 Mechanical Ventilator 09/24/18 04:00 99.5 73 14 119/49 (72) 100 09/24/18 04:00 80 09/24/18 04:00 72 09/24/18 03:18 88 16 96 Mechanical Ventilator 30 09/24/18 03:03 76 14 94 Mechanical Ventilator 30 09/24/18 03:03 64 14 30 09/24/18 03:00 65 14 122/51 (74) 93 09/24/18 02:00 69 14 104/43 (63) 93 09/24/18 01:00 71 14 127/51 (76) 93 09/24/18 00:55 80 14 30 09/24/18 00:00 Mechanical Ventilator 09/24/18 00:00 77 09/24/18 00:00 99.3 75 14 92/44 (60) 95 09/24/18 00:00 50 09/23/18 23:00 78 14 110/56 (74) 93 09/23/18 22:50 87 14 97 Mechanical Ventilator 30 09/23/18 22:41 76 14 30 09/23/18 22:40 90 14 96 Mechanical Ventilator 30 09/23/18 22:00 78 14 108/53 (71) 92 09/23/18 21:00 73 14 106/46 (66) 90 09/23/18 20:47 80 14 30 09/23/18 20:00 30 09/23/18 20:00 Mechanical Ventilator 09/23/18 20:00 98.8 82 14 119/49 (72) 94 09/23/18 20:00 83 09/23/18 19:30 91 18 98 Mechanical Ventilator 30 09/23/18 19:15 73 14 30 09/23/18 19:14 74 14 95 Mechanical Ventilator 30 09/23/18 19:00 89 20 96/47 (63) 94 09/23/18 18:00 86 14 116/50 (72) 95 09/23/18 17:22 88 14 30 09/23/18 17:00 98.6 90 14 119/48 (71) 95 09/23/18 16:00 Mechanical Ventilator 09/23/18 16:00 80 14 114/48 (70) 95 09/23/18 16:00 83 09/23/18 16:00 30 09/23/18 15:00 81 14 101/71 (81) 95 09/23/18 14:50 78 14 30 09/23/18 14:50 74 14 100 Mechanical Ventilator 30 09/23/18 14:50 76 14 98 Mechanical Ventilator 30 09/23/18 14:00 68 14 125/77 (93) 100 09/23/18 13:00 98.9 78 21 125/54 (77) 98 09/23/18 12:50 80 14 30 09/23/18 12:00 Mechanical Ventilator 09/23/18 12:00 98 09/23/18 12:00 98.6 87 21 123/53 (76) 97 09/23/18 11:00 70 15 117/54 (75) 98 09/23/18 10:49 70 14 99 Mechanical Ventilator 30 Intake and Output 09/23/18 09/24/18 19:00 07:00 Intake Total 780 ml 1605.0 ml Output Total 770 ml 740 ml Balance 10 ml 865.0 ml Intake Free Water 250 ml IV Total 600 ml 875.0 ml Tube Feeding 180 ml 480 ml Output Urine Total 770 ml 740 ml # Bowel Movements 2 1 Laboratory Tests 09/24/18 04:00: White Blood Count 10.3, Red Blood Count 3.49L, Hemoglobin 11.0L, Hematocrit 33.9L, Mean Corpuscular Volume 97, Mean Corpuscular Hemoglobin 31.6H, Mean Corpuscular Hemoglobin Concent 32.6, Red Cell Distribution Width 13.9, Platelet Count 527H, Mean Platelet Volume 5.7L, Neutrophils (%) (Auto) 74.2, Lymphocytes (%) (Auto) 19.3L, Monocytes (%) (Auto) 4.3, Eosinophils (%) (Auto) 1.7, Basophils (%) (Auto) 0.6, Sodium Level 140, Potassium Level 4.2, Chloride Level 107, Carbon Dioxide Level 26, Anion Gap 7, Blood Urea Nitrogen 8, Creatinine 0.7 , Estimat Glomerular Filtration Rate , Glucose Level 217H, Calcium Level 9.2, Magnesium Level 2.0 Height (Feet): 5 Height (Inches): 3.00 Weight (Pounds): 123 General Appearance: no apparent distress EENT: other - vented Cardiovascular: normal rate Respiratory/Chest: decreased breath sounds Abdomen: distended Dwayne Vernon MD Sep 24, 2018 10:44
--- NOTE | 2018-09-24 10:47 | GI Progress Note ---
Assessment/Plan Problems: (1) DM (diabetes mellitus) ICD Codes: E11.9 - Type 2 diabetes mellitus without complications SNOMED: 03517927 (2) Dehydration ICD Codes: E86.0 - Dehydration SNOMED: 97193533 (3) G tube feedings ICD Codes: Z93.1 - Gastrostomy status SNOMED: 956985502, 192274489, 760885780 (4) Electrolyte imbalance ICD Codes: E87.8 - Other disorders of electrolyte and fluid balance, not elsewhere classified SNOMED: 414411381 (5) Sepsis ICD Codes: A41.9 - Sepsis, unspecified organism SNOMED: 90976090 Status: stable, unchanged Status Narrative Discussed with Dr. Brown. Assessment/Plan GTF>> on hold for possible extubation fu labs abx per ID respiratory care fu abd us>> neg cont bowel regimen follow labs The patient was seen and examined at bedside and all new and available data was reviewed in the patients chart. I agree with the above findings, impression and plan. (Patient seen earlier today. Signature stamp does not reflect patient encounter time.). - Ovi Brwon MD Subjective Subjective limited Objective Last 24 Hour Vital Signs Date Time Temp Pulse Resp B/P (MAP) Pulse Ox O2 Delivery O2 Flow Rate FiO2 09/24/18 08:45 70 15 30 09/24/18 08:00 Mechanical Ventilator 09/24/18 08:00 98.5 66 14 125/52 (76) 100 09/24/18 07:00 73 14 100 Mechanical Ventilator 30 09/24/18 07:00 66 14 147/58 (87) 100 09/24/18 06:59 58 14 30 09/24/18 06:52 59 14 98 Mechanical Ventilator 30 09/24/18 06:30 30 09/24/18 06:00 64 14 138/51 (80) 98 09/24/18 05:09 58 14 30 09/24/18 05:00 59 14 127/51 (76) 100 09/24/18 04:00 Mechanical Ventilator 09/24/18 04:00 99.5 73 14 119/49 (72) 100 09/24/18 04:00 80 09/24/18 04:00 72 09/24/18 03:18 88 16 96 Mechanical Ventilator 30 09/24/18 03:03 76 14 94 Mechanical Ventilator 30 09/24/18 03:03 64 14 30 09/24/18 03:00 65 14 122/51 (74) 93 09/24/18 02:00 69 14 104/43 (63) 93 09/24/18 01:00 71 14 127/51 (76) 93 09/24/18 00:55 80 14 30 09/24/18 00:00 Mechanical Ventilator 09/24/18 00:00 77 09/24/18 00:00 99.3 75 14 92/44 (60) 95 09/24/18 00:00 50 09/23/18 23:00 78 14 110/56 (74) 93 09/23/18 22:50 87 14 97 Mechanical Ventilator 30 09/23/18 22:41 76 14 30 09/23/18 22:40 90 14 96 Mechanical Ventilator 30 09/23/18 22:00 78 14 108/53 (71) 92 09/23/18 21:00 73 14 106/46 (66) 90 09/23/18 20:47 80 14 30 09/23/18 20:00 30 09/23/18 20:00 Mechanical Ventilator 09/23/18 20:00 98.8 82 14 119/49 (72) 94 09/23/18 20:00 83 09/23/18 19:30 91 18 98 Mechanical Ventilator 30 09/23/18 19:15 73 14 30 09/23/18 19:14 74 14 95 Mechanical Ventilator 30 09/23/18 19:00 89 20 96/47 (63) 94 09/23/18 18:00 86 14 116/50 (72) 95 09/23/18 17:22 88 14 30 09/23/18 17:00 98.6 90 14 119/48 (71) 95 09/23/18 16:00 Mechanical Ventilator 09/23/18 16:00 80 14 114/48 (70) 95 09/23/18 16:00 83 09/23/18 16:00 30 09/23/18 15:00 81 14 101/71 (81) 95 09/23/18 14:50 78 14 30 09/23/18 14:50 74 14 100 Mechanical Ventilator 30 09/23/18 14:50 76 14 98 Mechanical Ventilator 30 09/23/18 14:00 68 14 125/77 (93) 100 09/23/18 13:00 98.9 78 21 125/54 (77) 98 09/23/18 12:50 80 14 30 09/23/18 12:00 Mechanical Ventilator 09/23/18 12:00 98 09/23/18 12:00 98.6 87 21 123/53 (76) 97 09/23/18 11:00 70 15 117/54 (75) 98 09/23/18 10:49 70 14 99 Mechanical Ventilator 30 Intake and Output 09/23/18 09/24/18 19:00 07:00 Intake Total 780 ml 1605.0 ml Output Total 770 ml 740 ml Balance 10 ml 865.0 ml Intake Free Water 250 ml IV Total 600 ml 875.0 ml Tube Feeding 180 ml 480 ml Output Urine Total 770 ml 740 ml # Bowel Movements 2 1 Laboratory Tests Test 09/24/18 04:00 White Blood Count 10.3 K/UL (4.8-10.8) Red Blood Count 3.49 M/UL (4.20-5.40) L Hemoglobin 11.0 G/DL (12.0-16.0) L Hematocrit 33.9 % (37.0-47.0) L Mean Corpuscular Volume 97 FL (80-99) Mean Corpuscular Hemoglobin 31.6 PG (27.0-31.0) H Mean Corpuscular Hemoglobin Concent 32.6 G/DL (32.0-36.0) Red Cell Distribution Width 13.9 % (11.6-14.8) Platelet Count 527 K/UL (150-450) H Mean Platelet Volume 5.7 FL (6.5-10.1) L Neutrophils (%) (Auto) 74.2 % (45.0-75.0) Lymphocytes (%) (Auto) 19.3 % (20.0-45.0) L Monocytes (%) (Auto) 4.3 % (1.0-10.0) Eosinophils (%) (Auto) 1.7 % (0.0-3.0) Basophils (%) (Auto) 0.6 % (0.0-2.0) Sodium Level 140 MMOL/L (136-145) Potassium Level 4.2 MMOL/L (3.5-5.1) Chloride Level 107 MMOL/L (98-107) Carbon Dioxide Level 26 MMOL/L (21-32) Anion Gap 7 mmol/L (5-15) Blood Urea Nitrogen 8 mg/dL (7-18) Creatinine 0.7 MG/DL (0.55-1.30) Estimat Glomerular Filtration Rate mL/min (>60) Glucose Level 217 MG/DL (74-106) H Calcium Level 9.2 MG/DL (8.5-10.1) Magnesium Level 2.0 MG/DL (1.8-2.4) Height (Feet): 5 Height (Inches): 3.00 Weight (Pounds): 123 General Appearance: alert Cardiovascular: normal rate Respiratory/Chest: other - mech vent Abdominal Exam: normal bowel sounds, non tender, soft, GT site - c/d/i Valente Bethea NP Sep 24, 2018 10:47
[2018-09-24] MEDS ORDERED: NS 275ml ONE (10:49)
[2018-09-24] MEDS ORDERED: Tubing IV Secondary IV ONE (10:49)
--- NOTE | 2018-09-24 10:50 | NUR ---
NURSE NOTES: Seen by Dr. Swift and tried weaning. RSBI 125. Put it back to AC mode.
--- NOTE | 2018-09-24 10:57 | NUR ---
[employer] SI: RESP FAILURE ETT/VENT SUPPORT T. 98.5 HR 58 RR 14 B/P 125/72 AC 14 TV 500 FIO2 35% PEEP 5 IS: IVF [id number] VANCO IV MEROPENEM IV PROTONIX IV ICU STATUS
--- NOTE | 2018-09-24 11:40 | NUR ---
RD ASSESSMENT & RECOMMENDATIONS SEE CARE ACTIVITY FOR COMPLETE ASSESSMENT DAILY ESTIMATED NEEDS: Needs based on Critical care, sepsis, wound, DM 53.6kg 25-32 kcals/kg 9504-9092 total kcals 1.25-2 g protein/kg 67-107 g total protein 25-32ml/kcal mL/kg 9300-0013 total fluid mLs NUTRITION DIAGNOSIS: 1) Swallowing difficulty R/T dysphagia, CVA as evidenced by PEG dependent, now orally intubated. 2) Increased kcal and pro needs r/t sepsis and wound healing as evidenced by elev BG and POC (200-400's-> 153 217 291 202 143, elev WBC (15.7 -> now wnl), febrile, elev Na (148-> wnl), sacral wound/ unstageable per MD. CURRENT TF:Glucerna 1.2 @60 ml/hr x 24 hrs ENTERAL NUTRITION RECOMMENDATIONS: Glucerna 1.2 @55ml/hr x24 hrs to provide 1320ml, 1584 kcal, 79g prot, 1063ml free H2O - Maintain Glucerna 1.2 -> Rec to REDUCE RATE to goal of 55ml/hr (meets 100% est kcal and prot needs, for improved BG control) - HOB over 30 degrees - Flush per MD-> 150q6 for added 600ml free fluid per day (1063ml from TF + 600ml flushes= 1663ml free fluid per day). ADDITIONAL RECOMMENDATIONS: 1) Monitor hydration status -> now improved 2) Obtain an accurate calibrated bed scale wt 3) Lytes daily on TF/ replete as needed 4) Monitor BGs closely, need to increase Levemir (BG elevated) 5) Sacral wound: add AYDEE BID via PEG daily continue Vit C 250mg BID daily via GT .
--- NOTE | 2018-09-24 12:13 | Surgery Progress Note ---
Surgery Progress Note Subjective Additional Comments no acute events comfortable stable considering extubation but difficulty with weaning trails. Objective Last 24 Hour Vital Signs Date Time Temp Pulse Resp B/P (MAP) Pulse Ox O2 Delivery O2 Flow Rate FiO2 09/24/18 12:00 66 09/24/18 11:13 57 14 100 Mechanical Ventilator 30 09/24/18 11:12 56 14 30 09/24/18 11:04 58 14 100 Mechanical Ventilator 30 09/24/18 11:00 57 14 139/55 (83) 100 09/24/18 10:00 58 14 114/51 (72) 99 09/24/18 09:00 71 16 125/52 (76) 97 09/24/18 08:45 70 15 30 09/24/18 08:00 Mechanical Ventilator 09/24/18 08:00 98.5 66 14 125/52 (76) 100 09/24/18 08:00 61 09/24/18 07:00 73 14 100 Mechanical Ventilator 30 09/24/18 07:00 66 14 147/58 (87) 100 09/24/18 06:59 58 14 30 09/24/18 06:52 59 14 98 Mechanical Ventilator 30 09/24/18 06:30 30 09/24/18 06:00 64 14 138/51 (80) 98 09/24/18 05:09 58 14 30 09/24/18 05:00 59 14 127/51 (76) 100 09/24/18 04:00 Mechanical Ventilator 09/24/18 04:00 99.5 73 14 119/49 (72) 100 09/24/18 04:00 80 09/24/18 04:00 72 09/24/18 03:18 88 16 96 Mechanical Ventilator 30 09/24/18 03:03 76 14 94 Mechanical Ventilator 30 09/24/18 03:03 64 14 30 09/24/18 03:00 65 14 122/51 (74) 93 09/24/18 02:00 69 14 104/43 (63) 93 09/24/18 01:00 71 14 127/51 (76) 93 09/24/18 00:55 80 14 30 09/24/18 00:00 Mechanical Ventilator 09/24/18 00:00 77 09/24/18 00:00 99.3 75 14 92/44 (60) 95 09/24/18 00:00 50 09/23/18 23:00 78 14 110/56 (74) 93 09/23/18 22:50 87 14 97 Mechanical Ventilator 30 09/23/18 22:41 76 14 30 09/23/18 22:40 90 14 96 Mechanical Ventilator 30 09/23/18 22:00 78 14 108/53 (71) 92 09/23/18 21:00 73 14 106/46 (66) 90 09/23/18 20:47 80 14 30 09/23/18 20:00 30 09/23/18 20:00 Mechanical Ventilator 09/23/18 20:00 98.8 82 14 119/49 (72) 94 09/23/18 20:00 83 09/23/18 19:30 91 18 98 Mechanical Ventilator 30 09/23/18 19:15 73 14 30 09/23/18 19:14 74 14 95 Mechanical Ventilator 30 09/23/18 19:00 89 20 96/47 (63) 94 09/23/18 18:00 86 14 116/50 (72) 95 09/23/18 17:22 88 14 30 09/23/18 17:00 98.6 90 14 119/48 (71) 95 09/23/18 16:00 Mechanical Ventilator 09/23/18 16:00 80 14 114/48 (70) 95 09/23/18 16:00 83 09/23/18 16:00 30 09/23/18 15:00 81 14 101/71 (81) 95 09/23/18 14:50 78 14 30 09/23/18 14:50 74 14 100 Mechanical Ventilator 30 09/23/18 14:50 76 14 98 Mechanical Ventilator 30 09/23/18 14:00 68 14 125/77 (93) 100 09/23/18 13:00 98.9 78 21 125/54 (77) 98 09/23/18 12:50 80 14 30 I&O Intake and Output 09/23/18 09/24/18 19:00 07:00 Intake Total 780 ml 1605.0 ml Output Total 770 ml 740 ml Balance 10 ml 865.0 ml Intake Free Water 250 ml IV Total 600 ml 875.0 ml Tube Feeding 180 ml 480 ml Output Urine Total 770 ml 740 ml # Bowel Movements 2 1 Cardiovascular: RSR Respiratory: decreased breath sounds Abdomen: soft, present bowel sounds Extremities: no cyanosis Laboratory Tests Test 09/24/18 04:00 White Blood Count 10.3 K/UL (4.8-10.8) Red Blood Count 3.49 M/UL (4.20-5.40) L Hemoglobin 11.0 G/DL (12.0-16.0) L Hematocrit 33.9 % (37.0-47.0) L Mean Corpuscular Volume 97 FL (80-99) Mean Corpuscular Hemoglobin 31.6 PG (27.0-31.0) H Mean Corpuscular Hemoglobin Concent 32.6 G/DL (32.0-36.0) Red Cell Distribution Width 13.9 % (11.6-14.8) Platelet Count 527 K/UL (150-450) H Mean Platelet Volume 5.7 FL (6.5-10.1) L Neutrophils (%) (Auto) 74.2 % (45.0-75.0) Lymphocytes (%) (Auto) 19.3 % (20.0-45.0) L Monocytes (%) (Auto) 4.3 % (1.0-10.0) Eosinophils (%) (Auto) 1.7 % (0.0-3.0) Basophils (%) (Auto) 0.6 % (0.0-2.0) Sodium Level 140 MMOL/L (136-145) Potassium Level 4.2 MMOL/L (3.5-5.1) Chloride Level 107 MMOL/L (98-107) Carbon Dioxide Level 26 MMOL/L (21-32) Anion Gap 7 mmol/L (5-15) Blood Urea Nitrogen 8 mg/dL (7-18) Creatinine 0.7 MG/DL (0.55-1.30) Estimat Glomerular Filtration Rate mL/min (>60) Glucose Level 217 MG/DL (74-106) H Calcium Level 9.2 MG/DL (8.5-10.1) Magnesium Level 2.0 MG/DL (1.8-2.4) Plan Problems: (1) Sepsis Assessment & Plan: 77-year-old female presented to [facility] in distress found to be septic with leukocytosis tachycardia and requiring ventilatory support. Patient's labs noted and significant abnormal. Lactic acidosis. Severe dehydration. Admit to intensive care unit IV fluids Vent support - cont with weaning trial. looks okay for extubation soon IV antibiotics as per infectious disease Trend labs A.m. chest x-ray okay for tube feeds ICU care Leukocytosis improving. Labs improving. US noted wean vent for extubation We will follow with recommendations Thank you for allowing me to participate in patient's care (2) Lactic acid acidosis (3) Upper sacral area unstageable pressure ulcer (4) G tube feedings Assessment & Plan: DAILY ESTIMATED NEEDS: Needs based on Critical care, sepsis, wound, DM 53.6kg 25-32 kcals/kg 1038-1953 total kcals 1.25-2 g protein/kg 67-107 g total protein 25-32ml/kcal mL/kg 2896-8748 total fluid mLs NUTRITION DIAGNOSIS: 1) Swallowing difficulty R/T dysphagia, CVA as evidenced by PEG dependent, now orally intubated. 2) Increased kcal and pro needs r/t sepsis and wound healing as evidenced by elev BG and POC (200-400's), elev WBC (15.7), febrile (Tmax 100.9), elev Na (148), sacral wound/ unstageable per MD. CURRENT TF: Glucerna 1.2 @60 hrs ENTERAL NUTRITION RECOMMENDATIONS: Glucerna 1.2 @55ml/hr x24 hrs + Prosource x1 daily to provide 1320ml, 1584 kcal, 79g + 11g pro, 1063ml free H2O - Maintain Glucerna 1.2 -> Rec to REDUCE RATE to goal of 55ml/hr - Add Prosource x1 daily to better meet est pro needs - HOB over 30 degrees - Flush per MD-> 150q6 for added 600ml free fluid per day (1063ml from TF + 600ml flushes= 1663ml free fluid per day). ------ ADDITIONAL RECOMMENDATIONS: 1) Monitor hydration status 2) Obtain an accurate calibrated bed scale wt 3) Lytes daily on TF/ replete as needed 4) Rec increase hypoglycemic agents for improved BG control 5) Sacral wound: add AYDEE BID via PEG daily + Vit C 250mg BID daily via GT (5) Respiratory failure (6) Ventilator dependence Akhil Jackson Sep 24, 2018 12:13
--- NOTE | 2018-09-24 13:25 | NUR ---
NURSE NOTES: Bed side paracentesis done. Output 850ml noted. Addendum: 09/24/18 at 1525 by JULIAN GILES RN wrong entry
--- NOTE | 2018-09-24 14:33 | NUR ---
NURSE NOTES: Seen by Dr. Jerez and assessed. New order carried out. Will continue plan of care.
--- NOTE | 2018-09-24 15:15 | NUR ---
NURSE NOTES: Spoke with Lorin Dorman regarding Bioethics consult
--- NOTE | 2018-09-24 15:31 | Hematology/Onc Progress Note ---
Assessment/Plan Assessment/Plan Assessment and Recs: # Thrombocytopenia --> now with thrombocytosis - potential causes multifactorial , evaluate liver and viral etiologies to begin, also could be related to underlying medications patient has received. --> Hep panel and HIV show neg results --> US abd shows no cirrhosis or hsm --> Peripheral smear ordered to evaluate for blasts /schistocytes --> abx and other meds have been reviewed --> ok for ppx if plt >50k w/ either heparin or lovenox --> Transfuse if Plt < 20k and fever, or if Plt < 10k without fever --> trend plts --> 182k-->160-->140-->119-->140k-->200k->529->527k --> asa but not at this time --> meds reviewed and may be 2/2 vanc and amikacin but at this time ok to continue since borderline # Anemia of iron deficiency, on iron now --> Anemia workup has been ordered, rule out gi bleed, shows AID --> No evidence of hemolysis is noted, peripheral smear has been reviewed --> Hgb goal >7. Transfuse prn. --> Iron to continue --> Medications have been reviewed --> hgb 12-->10.7-->11.3-->10.8-->11 # Dysphagia and now s/p nG tube feedings --> as per gi, ng tube feedsings # Respo failure on vent --> per pulm/cc, on sbt, difficult weaning --> recs reviewed # Dehydration --> on ivfs, currently off per renal # Sepsis --> abx per id --> adjust as needed --> reviewed(whitney/vanc) # DVT ppx with heparin sq The timing of this note does not necessarily reflect the time of the patient was seen. GREATLY APPRECIATE CONSULTATION. Subjective HEENT: Denies: no symptoms, eye pain, blurred vision, tearing, double vision, ear pain, ear discharge, nose pain, nose congestion, throat pain, throat swelling, mouth pain, mouth swelling, other Cardiovascular: Denies: no symptoms, chest pain, edema, irregular heart rate, lightheadedness, palpitations, syncope, other Respiratory: Denies: no symptoms, cough, shortness of breath, SOB with excertion, SOB at rest, sputum, wheezing, other Gastrointestinal/Abdominal: Denies: no symptoms, abdomen distended, abdominal pain, black stools, tarry stools, blood in stool, constipated, diarrhea, difficulty swallowing, nausea, poor appetite, poor fluid intake, rectal bleeding , vomiting, other Genitourinary: Denies: no symptoms, burning, discharge, frequency, flank pain, hematuria, incontinence, pain, urgency, other Neurologic/Psychiatric: Denies: no symptoms, anxiety, depressed, emotional problems, headache, numbness, paresthesia, pre-existing deficit, seizure, tingling, tremors, weakness, other Endocrine: Denies: no symptoms, excessive sweating, flushing, intolerance to cold, intolerance to heat, increased hunger, increased thirst, increased urine, unexplained weight gain, unexplained weight loss, other Hematologic/Lymphatic: Denies: no symptoms, anemia, easy bleeding, easy bruising, adenopathy, other Allergies: Coded Allergies: No Known Allergies (Unverified , 02/04/17) Subjective 09/18: is on iron, as well as broad spectrum abx, labs reviewed 09/19: no events to report, angie Robertson rn, tfs ongoing via ng, on vent to wean protocol 09/20: remains intubated, unchanged 09/21: in icu, no major changes, no f/c, no night sweats 09/23: remains in the icu, considering extubation, no f/c noted 09/24: patient unable to be weaned, para was done, daily sbt Objective Objective Current Medications Medications (Trade) Dose Ordered Sig/Wayne Route PRN Reason Start Time Stop Time Status Last Admin Dose Admin Acetaminophen (Tylenol) 650 mg Q4H PRN GT Mild Pain/Temp > 100.5 09/23/18 07:15 10/23/18 07:14 Acetylcysteine (Mucomyst) 100 mg Q4HRT [facility] 09/21/18 19:00 10/21/18 18:59 09/24/18 11:12 Albuterol/ Ipratropium (Albuterol/ Ipratropium) 3 ml Q4HRT N 09/21/18 19:00 09/26/18 18:59 09/24/18 11:12 Artificial Tears (Akwa-Tears) 1 drop Q4H PRN BOTH EYES Dry Eyes 09/18/18 12:30 10/18/18 12:29 Ascorbic Acid (Vitamin C) 250 mg TWICE A DAY ORAL 09/18/18 18:00 10/18/18 17:59 09/24/18 08:25 Bisacodyl (Dulcolax) 10 mg DAILYPRN PRN RECTAL Constipation 09/14/18 12:45 10/14/18 12:44 Chlorhexidine Gluconate (Kamla-Hex 2%) 1 applic DAILY@2000 TOPIC 09/17/18 20:00 10/17/18 19:59 09/23/18 20:42 Dextrose (Dextrose 50%) 25 ml Q30M PRN IV Hypoglycemia 09/14/18 12:45 10/14/18 12:44 Dextrose (Dextrose 50%) 50 ml Q30M PRN IV Hypoglycemia 09/14/18 12:45 10/14/18 12:44 Dextrose/ Electrolytes 1,000 ml @ 50 mls/hr Q20H IV 09/23/18 11:00 10/23/18 10:59 09/24/18 05:53 Diphenhydramine HCl (Benadryl) 25 mg Q6H PRN ORAL Itching/Pruritis 09/14/18 12:45 10/14/18 12:44 Docusate Sodium (Colace) 100 mg EVERY 12 HOURS ORAL 09/14/18 21:00 10/14/18 20:59 09/23/18 20:42 Furosemide (Lasix) 20 mg DAILY GT 09/23/18 09:00 10/22/18 08:59 09/24/18 08:25 Heparin Sodium (Porcine) (Heparin 5000 units/ml) 5,000 units EVERY 12 HOURS SUBQ 09/14/18 21:00 10/14/18 20:59 09/24/18 08:26 Insulin Aspart (NovoLOG) Q6HR SUBQ 09/14/18 16:00 10/14/18 15:59 09/24/18 11:53 Insulin Detemir (Levemir) 12 units BEDTIME SUBQ 09/17/18 21:00 10/17/18 20:59 09/23/18 20:45 Magnesium Hydroxide (Mom) 30 ml HSPRN PRN ORAL Constipation 09/14/18 12:45 10/14/18 12:44 Meropenem 1 gm/ Sodium Chloride 100 ml @ 200 mls/hr Q8HR IVPB 09/21/18 22:00 09/26/18 21:59 09/24/18 14:02 Metoclopramide HCl (Reglan) 10 mg Q8H PRN IVP Nausea & Vomiting 09/17/18 12:30 10/17/18 12:29 Ondansetron HCl (Zofran) 4 mg Q6H PRN IVP Nausea & Vomiting 09/14/18 12:45 10/14/18 12:44 09/17/18 07:41 Pantoprazole (Protonix) 40 mg DAILY IV 09/15/18 09:00 10/15/18 08:59 09/24/18 08:25 Vancomycin HCl (Vanco rx to dose) 1 ea DAILY PRN MISC Per rx protocol 09/14/18 12:45 10/14/18 12:44 Vancomycin HCl/ Dextrose 275 ml @ 137.5 mls/ hr Q24H IVPB 09/23/18 01:00 09/28/18 00:59 09/24/18 00:47 Last 24 Hour Vital Signs Date Time Temp Pulse Resp B/P (MAP) Pulse Ox O2 Delivery O2 Flow Rate FiO2 09/24/18 14:00 62 14 116/47 (70) 98 09/24/18 13:12 65 14 30 09/24/18 13:00 68 14 106/42 (63) 99 09/24/18 12:00 Mechanical Ventilator 09/24/18 12:00 66 09/24/18 12:00 30 09/24/18 12:00 98.5 76 14 120/47 (71) 97 09/24/18 11:13 57 14 100 Mechanical Ventilator 30 09/24/18 11:12 56 14 30 09/24/18 11:04 58 14 100 Mechanical Ventilator 30 09/24/18 11:00 57 14 139/55 (83) 100 09/24/18 10:00 58 14 114/51 (72) 99 09/24/18 09:00 71 16 125/52 (76) 97 09/24/18 08:45 70 15 30 09/24/18 08:00 30 09/24/18 08:00 Mechanical Ventilator 09/24/18 08:00 98.5 66 14 125/52 (76) 100 09/24/18 08:00 61 09/24/18 07:00 73 14 100 Mechanical Ventilator 30 09/24/18 07:00 66 14 147/58 (87) 100 09/24/18 06:59 58 14 30 09/24/18 06:52 59 14 98 Mechanical Ventilator 30 09/24/18 06:30 30 09/24/18 06:00 64 14 138/51 (80) 98 09/24/18 05:09 58 14 30 09/24/18 05:00 59 14 127/51 (76) 100 09/24/18 04:00 Mechanical Ventilator 09/24/18 04:00 99.5 73 14 119/49 (72) 100 09/24/18 04:00 80 09/24/18 04:00 72 09/24/18 03:18 88 16 96 Mechanical Ventilator 30 09/24/18 03:03 76 14 94 Mechanical Ventilator 30 09/24/18 03:03 64 14 30 09/24/18 03:00 65 14 122/51 (74) 93 09/24/18 02:00 69 14 104/43 (63) 93 09/24/18 01:00 71 14 127/51 (76) 93 09/24/18 00:55 80 14 30 09/24/18 00:00 Mechanical Ventilator 09/24/18 00:00 77 09/24/18 00:00 99.3 75 14 92/44 (60) 95 09/24/18 00:00 50 09/23/18 23:00 78 14 110/56 (74) 93 09/23/18 22:50 87 14 97 Mechanical Ventilator 30 09/23/18 22:41 76 14 30 09/23/18 22:40 90 14 96 Mechanical Ventilator 30 09/23/18 22:00 78 14 108/53 (71) 92 09/23/18 21:00 73 14 106/46 (66) 90 09/23/18 20:47 80 14 30 09/23/18 20:00 30 09/23/18 20:00 Mechanical Ventilator 09/23/18 20:00 98.8 82 14 119/49 (72) 94 09/23/18 20:00 83 09/23/18 19:30 91 18 98 Mechanical Ventilator 30 09/23/18 19:15 73 14 30 09/23/18 19:14 74 14 95 Mechanical Ventilator 30 09/23/18 19:00 89 20 96/47 (63) 94 09/23/18 18:00 86 14 116/50 (72) 95 09/23/18 17:22 88 14 30 09/23/18 17:00 98.6 90 14 119/48 (71) 95 09/23/18 16:00 Mechanical Ventilator 09/23/18 16:00 80 14 114/48 (70) 95 09/23/18 16:00 83 09/23/18 16:00 30 09/23/18 15:00 81 14 101/71 (81) 95 09/23/18 14:50 78 14 30 09/23/18 14:50 74 14 100 Mechanical Ventilator 30 09/23/18 14:50 76 14 98 Mechanical Ventilator 30 09/23/18 14:00 68 14 125/77 (93) 100 09/23/18 13:00 98.9 78 21 125/54 (77) 98 09/23/18 12:50 80 14 30 09/23/18 12:00 Mechanical Ventilator 09/23/18 12:00 98 09/23/18 12:00 98.6 87 21 123/53 (76) 97 09/23/18 11:00 70 15 117/54 (75) 98 09/23/18 10:49 70 14 99 Mechanical Ventilator 30 09/23/18 10:42 73 14 30 09/23/18 10:42 73 15 96 Mechanical Ventilator 30 09/23/18 10:04 30 09/23/18 10:00 81 23 130/62 (84) 95 09/23/18 09:00 30 09/23/18 09:00 82 21 130/59 (82) 95 09/23/18 08:59 98 09/23/18 08:59 80 23 30 30 09/23/18 08:00 30 09/23/18 08:00 70 09/23/18 08:00 98.5 74 14 108/48 (68) 98 09/23/18 08:00 Mechanical Ventilator 09/23/18 07:00 76 14 118/57 (77) 98 09/23/18 06:48 80 14 98 Mechanical Ventilator 30 09/23/18 06:43 80 14 96 Mechanical Ventilator 30 09/23/18 06:43 80 15 30 09/23/18 06:00 80 15 124/54 (77) 97 09/23/18 05:22 84 4 30 09/23/18 05:00 79 14 126/49 (74) 97 09/23/18 04:09 84 14 99 Mechanical Ventilator 30 09/23/18 04:00 30 09/23/18 04:00 75 09/23/18 04:00 Mechanical Ventilator 09/23/18 04:00 97.8 77 14 117/72 (87) 100 09/23/18 03:59 80 14 98 Mechanical Ventilator 30 09/23/18 03:30 80 15 30 09/23/18 03:00 65 14 106/44 (64) 96 09/23/18 02:00 79 14 126/54 (78) 98 09/23/18 01:00 77 14 113/51 (71) 96 09/23/18 00:32 81 14 99 Mechanical Ventilator 30 09/23/18 00:32 81 14 30 09/23/18 00:00 30 09/23/18 00:00 98.5 81 16 133/53 (79) 98 09/23/18 00:00 Mechanical Ventilator 09/23/18 00:00 75 09/22/18 23:49 77 14 98 Mechanical Ventilator 30 09/22/18 23:47 66 14 30 09/22/18 23:00 88 15 128/49 (75) 98 09/22/18 22:00 69 14 117/45 (69) 98 09/22/18 21:08 73 14 100 Mechanical Ventilator 30 09/22/18 21:08 66 14 30 09/22/18 21:00 66 14 112/42 (65) 99 09/22/18 20:00 Mechanical Ventilator 09/22/18 20:00 98.4 69 17 119/47 (71) 99 09/22/18 20:00 30 09/22/18 20:00 70 09/22/18 19:49 67 14 98 Mechanical Ventilator 30 09/22/18 19:49 67 14 30 09/22/18 19:00 64 14 108/44 (65) 99 09/22/18 18:00 69 14 100/45 (63) 99 09/22/18 17:21 65 14 30 09/22/18 17:00 63 23 111/44 (66) 97 09/22/18 16:00 77 09/22/18 16:00 98.5 73 24 95/40 (58) 98 09/22/18 16:00 30 09/22/18 16:00 Mechanical Ventilator Intake and Output 09/23/18 09/24/18 19:00 07:00 Intake Total 780 ml 1655.0 ml Output Total 770 ml 740 ml Balance 10 ml 915.0 ml Intake Free Water 250 ml IV Total 600 ml 925.0 ml Tube Feeding 180 ml 480 ml Output Urine Total 770 ml 740 ml # Bowel Movements 2 1 Labs Test 09/22/18 05:40 09/22/18 07:20 09/22/18 23:15 09/23/18 07:10 White Blood Count 12.4 K/UL (4.8-10.8) 8.7 K/UL (4.8-10.8) Red Blood Count 3.79 M/UL (4.20-5.40) 3.47 M/UL (4.20-5.40) Hemoglobin 12.0 G/DL (12.0-16.0) 10.8 G/DL (12.0-16.0) Hematocrit 36.5 % (37.0-47.0) 33.1 % (37.0-47.0) Mean Corpuscular Volume 96 FL (80-99) 95 FL (80-99) Mean Corpuscular Hemoglobin 31.6 PG (27.0-31.0) 31.1 PG (27.0-31.0) Mean Corpuscular Hemoglobin Concent 32.8 G/DL (32.0-36.0) 32.6 G/DL (32.0-36.0) Red Cell Distribution Width 14.0 % (11.6-14.8) 13.6 % (11.6-14.8) Platelet Count 484 K/UL (150-450) 529 K/UL (150-450) Mean Platelet Volume 6.3 FL (6.5-10.1) 6.0 FL (6.5-10.1) Neutrophils (%) (Auto) % (45.0-75.0) 75.2 % (45.0-75.0) Lymphocytes (%) (Auto) % (20.0-45.0) 19.1 % (20.0-45.0) Monocytes (%) (Auto) % (1.0-10.0) 3.5 % (1.0-10.0) Eosinophils (%) (Auto) % (0.0-3.0) 1.9 % (0.0-3.0) Basophils (%) (Auto) % (0.0-2.0) 0.4 % (0.0-2.0) Differential Total Cells Counted 100 Neutrophils % (Manual) 88 % (45-75) Lymphocytes % (Manual) 4 % (20-45) Monocytes % (Manual) 1 % (1-10) Eosinophils % (Manual) 0 % (0-3) Basophils % (Manual) 0 % (0-2) Band Neutrophils 7 % (0-8) Nucleated Red Blood Cells 1 /100 WBC Platelet Estimate Increased Platelet Morphology Normal Red Blood Cell Morphology Normal Sodium Level 143 MMOL/L (136-145) 145 MMOL/L (136-145) Potassium Level 3.5 MMOL/L (3.5-5.1) 3.3 MMOL/L (3.5-5.1) Chloride Level 108 MMOL/L (98-107) 110 MMOL/L (98-107) Carbon Dioxide Level 29 MMOL/L (21-32) 27 MMOL/L (21-32) Anion Gap 6 mmol/L (5-15) 9 mmol/L (5-15) Blood Urea Nitrogen 8 mg/dL (7-18) 9 mg/dL (7-18) Creatinine 0.7 MG/DL (0.55-1.30) 0.8 MG/DL (0.55-1.30) Estimat Glomerular Filtration Rate mL/min (>60) mL/min (>60) Glucose Level 255 MG/DL (74-106) 195 MG/DL (74-106) Calcium Level 9.0 MG/DL (8.5-10.1) 8.9 MG/DL (8.5-10.1) Magnesium Level 1.8 MG/DL (1.8-2.4) 2.0 MG/DL (1.8-2.4) Urine Color Pale yellow Urine Appearance Clear Urine pH 6.5 (4.5-8.0) Urine Specific [place] 1.010 (1.005-1.035) Urine Protein Negative (NEGATIVE) Urine Glucose (UA) 4+ (NEGATIVE) Urine Ketones Negative (NEGATIVE) Urine Blood 2+ (NEGATIVE) Urine Nitrite Negative (NEGATIVE) Urine Bilirubin Negative (NEGATIVE) Urine Urobilinogen Normal MG/DL (0.0-1.0) Urine Leukocyte Esterase Negative (NEGATIVE) Urine RBC 2-4 /HPF (0 - 2) Urine WBC 0-2 /HPF (0 - 2) Urine Squamous Epithelial Cells Occasional /LPF Urine Bacteria Occasional /HPF (NONE) Urine Yeast Many /HPF (NONE) Vancomycin Level Trough 11.2 ug/mL (5.0-12.0) Test 09/23/18 09:40 09/24/18 04:00 Arterial Blood pH 7.470 (7.350-7.450) Arterial Blood Partial Pressure CO2 37.6 mmHg (35.0-45.0) Arterial Blood Partial Pressure O2 67.4 mmHg (75.0-100.0) Arterial Blood HCO3 26.8 mmol/L (22.0-26.0) Arterial Blood Oxygen Saturation 93.5 % (95-100) Arterial Blood Base Excess 3.1 (-2-2) Ray Test Positive White Blood Count 10.3 K/UL (4.8-10.8) Red Blood Count 3.49 M/UL (4.20-5.40) Hemoglobin 11.0 G/DL (12.0-16.0) Hematocrit 33.9 % (37.0-47.0) Mean Corpuscular Volume 97 FL (80-99) Mean Corpuscular Hemoglobin 31.6 PG (27.0-31.0) Mean Corpuscular Hemoglobin Concent 32.6 G/DL (32.0-36.0) Red Cell Distribution Width 13.9 % (11.6-14.8) Platelet Count 527 K/UL (150-450) Mean Platelet Volume 5.7 FL (6.5-10.1) Neutrophils (%) (Auto) 74.2 % (45.0-75.0) Lymphocytes (%) (Auto) 19.3 % (20.0-45.0) Monocytes (%) (Auto) 4.3 % (1.0-10.0) Eosinophils (%) (Auto) 1.7 % (0.0-3.0) Basophils (%) (Auto) 0.6 % (0.0-2.0) Sodium Level 140 MMOL/L (136-145) Potassium Level 4.2 MMOL/L (3.5-5.1) Chloride Level 107 MMOL/L (98-107) Carbon Dioxide Level 26 MMOL/L (21-32) Anion Gap 7 mmol/L (5-15) Blood Urea Nitrogen 8 mg/dL (7-18) Creatinine 0.7 MG/DL (0.55-1.30) Estimat Glomerular Filtration Rate mL/min (>60) Glucose Level 217 MG/DL (74-106) Calcium Level 9.2 MG/DL (8.5-10.1) Magnesium Level 2.0 MG/DL (1.8-2.4) Height (Feet): 5 Height (Inches): 3.00 Weight (Pounds): 123 Objective Physical Exam: Vitals: reviewed General Appearance: NAD HEENT: normocephalic, atraumatic ++ogt Chest: normal breath sounds bilaterally ++ vent Cardiovascular: normal peripheral pulses, normal rate Abdomen: normal bowel sounds, soft, nontender ++ gtube Extremities: normal range of motion Mateo Wei MD Sep 24, 2018 15:31
--- NOTE | 2018-09-24 15:45 | NUR ---
NURSE NOTES: Brother came and still does not want her to have trach and still full code.
--- NOTE | 2018-09-24 16:10 | NUR ---
NURSE NOTES: Repositioned patient and oral care provided.
--- NOTE | 2018-09-24 18:00 | NUR ---
NURSE NOTES: Repositioned patient. No change in condition.
--- NOTE | 2018-09-24 19:20 | NUR ---
NURSE NOTES: Received pt and report from Rachael Beckman RN. Patient opens eyes upon voice stimuli but cannot follow commands. Orally intubated ETT 7.0, 22cm at lip line. Vent settings: AC 14, TV500, Fi02 30%, PEEP of 5, oxygen saturation 100%. Breathing even and unlabored, Crackles heard bilateral breath sounds. Sinus rhythm on sales and training specialist HR 78. PEG running Glucerna 1.2 at 60ml/hr with 10cc residual, HOB elevated. Left UA PICC intact running D5 1/2NS +20meq KCL @50cc/hr. Bed locked, alarmed and in lowest position. Will continue plan of care.
--- NOTE | 2018-09-24 19:23 | NUR ---
HAND-OFF: Report given to FELIX Zhang. Akira plan of care.
--- NOTE | 2018-09-24 20:19 | General Progress Note ---
Assessment/Plan Status: stable, unchanged Assessment/Plan: Assessment/Plan Status: unchanged Assessment/Plan: 77 y/o F with acute hypoxemic respiratory failure and sepsis admitted to ICU # Acute hypoxemic respiratory failur suspect very low prognosis given neurologic status, family does not want tracheostomy and she is not tolerating weaning trials - ICU management by acoustical carpenter appreciated. - Bioethics consult requested. FULL CODE per family and not able to safely extubate. - Serial ABG and CXR as needed. 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 - Nephrology follow up appreciated. 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 - R gaze preference noted. # Hypertension - Monitor and resume home medications not needed now due to hypotension. # History of dementia - Supportive care - SW to attempt to find family members # DVT and GI ppx # FULL CODE by records. - CM / SW follow up for family is needed. Bioethics consult Subjective ROS Limited/Unobtainable: Yes Allergies: Coded Allergies: No Known Allergies (Unverified , 02/04/17) Subjective Unresponsive, intubated, opens eyes to loud voice only Objective Last 24 Hour Vital Signs Date Time Temp Pulse Resp B/P (MAP) Pulse Ox O2 Delivery O2 Flow Rate FiO2 09/24/18 19:22 73 14 100 Mechanical Ventilator 30 09/24/18 19:12 63 14 99 Mechanical Ventilator 30 09/24/18 19:12 61 14 30 09/24/18 19:00 66 15 129/51 (77) 99 09/24/18 18:00 66 14 101/43 (62) 98 8/12/19 17:25 60 14 30 09/24/18 17:00 70 14 115/49 (71) 98 09/24/18 16:00 30 09/24/18 16:00 58 09/24/18 16:00 99.2 70 14 116/44 (68) 97 09/24/18 16:00 Mechanical Ventilator 09/24/18 15:38 70 14 100 Mechanical Ventilator 30 09/24/18 15:35 59 14 30 09/24/18 15:30 76 14 100 Mechanical Ventilator 30 09/24/18 15:28 82 14 30 09/24/18 15:00 60 14 117/52 (73) 98 09/24/18 14:00 62 14 116/47 (70) 98 09/24/18 13:12 65 14 30 09/24/18 13:00 68 14 106/42 (63) 99 09/24/18 12:00 Mechanical Ventilator 09/24/18 12:00 66 09/24/18 12:00 30 09/24/18 12:00 98.5 76 14 120/47 (71) 97 09/24/18 11:13 57 14 100 Mechanical Ventilator 30 09/24/18 11:12 56 14 30 09/24/18 11:04 58 14 100 Mechanical Ventilator 30 09/24/18 11:00 57 14 139/55 (83) 100 09/24/18 10:00 58 14 114/51 (72) 99 09/24/18 09:00 71 16 125/52 (76) 97 09/24/18 08:45 70 15 30 09/24/18 08:00 30 09/24/18 08:00 Mechanical Ventilator 09/24/18 08:00 98.5 66 14 125/52 (76) 100 09/24/18 08:00 61 09/24/18 07:00 73 14 100 Mechanical Ventilator 30 09/24/18 07:00 66 14 147/58 (87) 100 09/24/18 06:59 58 14 30 09/24/18 06:52 59 14 98 Mechanical Ventilator 30 09/24/18 06:30 30 09/24/18 06:00 64 14 138/51 (80) 98 09/24/18 05:09 58 14 30 09/24/18 05:00 59 14 127/51 (76) 100 09/24/18 04:00 Mechanical Ventilator 09/24/18 04:00 99.5 73 14 119/49 (72) 100 09/24/18 04:00 80 09/24/18 04:00 72 09/24/18 03:18 88 16 96 Mechanical Ventilator 30 09/24/18 03:03 76 14 94 Mechanical Ventilator 30 09/24/18 03:03 64 14 30 09/24/18 03:00 65 14 122/51 (74) 93 09/24/18 02:00 69 14 104/43 (63) 93 09/24/18 01:00 71 14 127/51 (76) 93 09/24/18 00:55 80 14 30 09/24/18 00:00 Mechanical Ventilator 09/24/18 00:00 77 09/24/18 00:00 99.3 75 14 92/44 (60) 95 09/24/18 00:00 50 09/23/18 23:00 78 14 110/56 (74) 93 09/23/18 22:50 87 14 97 Mechanical Ventilator 30 09/23/18 22:41 76 14 30 09/23/18 22:40 90 14 96 Mechanical Ventilator 30 09/23/18 22:00 78 14 108/53 (71) 92 09/23/18 21:00 73 14 106/46 (66) 90 09/23/18 20:47 80 14 30 Intake and Output 09/23/18 09/24/18 18:59 06:59 Intake Total 730 ml 1715.0 ml Output Total 770 ml 700 ml Balance -40 ml 1015.0 ml Intake Free Water 250 ml IV Total 550 ml 925.0 ml Tube Feeding 180 ml 540 ml Output Urine Total 770 ml 700 ml # Bowel Movements 2 1 Laboratory Tests 09/24/18 04:00: White Blood Count 10.3, Red Blood Count 3.49L, Hemoglobin 11.0L, Hematocrit 33.9L, Mean Corpuscular Volume 97, Mean Corpuscular Hemoglobin 31.6H, Mean Corpuscular Hemoglobin Concent 32.6, Red Cell Distribution Width 13.9, Platelet Count 527H, Mean Platelet Volume 5.7L, Neutrophils (%) (Auto) 74.2, Lymphocytes (%) (Auto) 19.3L, Monocytes (%) (Auto) 4.3, Eosinophils (%) (Auto) 1.7, Basophils (%) (Auto) 0.6, Sodium Level 140, Potassium Level 4.2, Chloride Level 107, Carbon Dioxide Level 26, Anion Gap 7, Blood Urea Nitrogen 8, Creatinine 0.7 , Estimat Glomerular Filtration Rate , Glucose Level 217H, Calcium Level 9.2, Magnesium Level 2.0 Height (Feet): 5 Height (Inches): 3.00 Weight (Pounds): 123 General Appearance: WD/WN, no apparent distress, lethargic EENT: PERRL/EOMI Cardiovascular: normal rate Respiratory/Chest: lungs clear, normal breath sounds Abdomen: non tender Neurologic: unresponsive Geovanny Jerez MD Sep 24, 2018 20:19
[2018-09-24] MEDS: Dyna-Hex 2% Top Sol 2oz TOPIC SCH (20:57)
[2018-09-24] MEDS: Levemir Flexpen SUBQ SCH (20:58)
--- NOTE | 2018-09-24 21:20 | NUR ---
NURSE NOTES: CHG bath given. Turned and repositioned. Comfort measure provided.
--- NOTE | 2018-09-24 21:30 | Electroencephalogram ---
DATE OF PROCEDURE: 09/24/2018 REQUESTING PHYSICIAN: Yamileth Yates M.D. READING PHYSICIAN: Jayant Swenson M.D. PROCEDURE PERFORMED: Electroencephalogram. HISTORY: This EEG was performed on a 77-year-old lady with a history of respiratory failure, sepsis, poorly controlled diabetes, and prior strokes. The purpose of this EEG was to evaluate the patient for ongoing ictal or interictal phenomena. TECHNICAL NOTE: This EEG was performed on a [employer] with electrodes placed on the scalp according to the International 10-20 system. [id number] and [id number] montages were used. The EEG was technically satisfactory and was performed while the patient was in a poorly responsive state. OBSERVATIONS: In the poorly responsive state, the background activity consisted of 4-5 Hz theta and 1.5-2 Hz delta activity with some interspersed triphasic waveforms. When the patient was stimulated faster frequencies in the 5-6 hertz theta range were seen. Throughout the tracing, right centrotemporal polymorphic delta activity was noted. In addition, a few interspersed T4 sharp discharges were also seen. IMPRESSION: This is an abnormal EEG characterized by, 1. Slowing of the background in the 4-5 Hz theta and 1.5-2 Hz delta range in the poorly responsive state. 2. The presence of triphasic waveforms seen throughout the tracing. 3. Right centrotemporal polymorphic delta activity. 4. A few interspersed T4 sharp discharges. COMMENT: This study is consistent with: 1. An encephalopathy of a moderate degree. 2. Right centrotemporal focal dysfunction. 3. A right mid-temporal epileptogenic focus with only interictal discharges seen during this EEG. Clinical correlation is recommended. Jayant Swenson M.D., M.S.P.H. DR: NIVIA JOB#: [id number]
--- NOTE | 2018-09-24 22:02 | Pulmonolgy Critical Care Note ---
Critical Care - Asmt/Plan Assessment/Plan: Pulmonary CCM Progress Note Critical Care - Asmt/Plan Problems: (1) Endotracheally intubated (2) Ventilator dependence, not tolerating CPAP trials today - apnea (3) Sepsis, on pressors PRN - antibiotics changed as febrile (4) Pneumonia (5) Electrolyte imbalance (6) Dehydration (7) Altered mental status (8) Hypernatremia (9) Respiratory failure (10) Lactic acid acidosis (11) H/O: CVA (cerebrovascular accident) (12) G tube feedings (13) KEL (acute kidney injury) Respiratory: monitor respiratory rate, adjust FIO2, ABG, other - HHN's, pulmonary hygiene, wean an tolerated, family refusing trach Cardiac: continue to monitor HR/BP Renal: keep negative Infectious Disease: check cultures, continue antibiotics per ID Gastrointestinal: enteral feeding Endocrine: monitor blood sugar, continue sliding scale insulin Hematologic: monitor H/H Neurologic: keep patient comfortable - monitor MS, consider neuro eval and EEG Prophylaxis: Protonix, Heparin Disposition: keep in ICU Time Spent (Minutes): 40 Notes 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, renal, ID, other - ERMD Discussed with: nurses, consultants, other - FC Critical Care - Objective Vital Signs Noted Status: sedated - intubated Condition: critical HEENT: atraumatic, normocephalic, other - ETT OGT weak gag Lungs: rhonchi Heart: HR/BP stable Abdomen: soft, non-tender, active bowel sounds, feeding tube Extremities: no C/C/E Micro: Microbiology Date/Time Source Procedure Growth Status 09/14/18 09:00 Rectum Received Critical Care - Subjective ROS Limited/Unobtainable: Yes Interval Events: 77 F NHR h/o dementia, CVA, GT, HTN, HL remains on ACVC, not tolerating PS Na 167 Cr 1.7 LA elevated + hemoconcentration No gag in ER + faint gag now + F no C no further hx obtainable Condition: critical IV Access: peripheral - x2 EKG Rhythm: Sinus Rhythm FI02: 60 Vent Support Breath Rate: 14 Vent Support Mode: AC Vent Tidal Volume: 500 Sputum Amount: Small PEEP: 5.0 PIP: 23 Secretions: scant thick Subjective: ARLETTE CXR: L RC inf, small L eff, ETT ET-Tube: 7.0 ET Position: 22 Labs: Laboratory Tests noted Critical Care - Objective Last 24 Hour Vital Signs Date Time Temp Pulse Resp B/P (MAP) Pulse Ox O2 Delivery O2 Flow Rate FiO2 09/24/18 21:00 66 14 119/47 (71) 98 09/24/18 20:00 98.6 64 14 110/43 (65) 98 09/24/18 20:00 30 09/24/18 20:00 Mechanical Ventilator 09/24/18 19:22 73 14 100 Mechanical Ventilator 30 09/24/18 19:12 63 14 99 Mechanical Ventilator 30 09/24/18 19:12 61 14 30 09/24/18 19:00 66 15 129/51 (77) 99 09/24/18 18:00 66 14 101/43 (62) 98 09/24/18 17:25 60 14 30 09/24/18 17:00 70 14 115/49 (71) 98 09/24/18 16:00 30 09/24/18 16:00 58 09/24/18 16:00 99.2 70 14 116/44 (68) 97 09/24/18 16:00 Mechanical Ventilator 09/24/18 15:38 70 14 100 Mechanical Ventilator 30 09/24/18 15:35 59 14 30 09/24/18 15:30 76 14 100 Mechanical Ventilator 30 09/24/18 15:28 82 14 30 09/24/18 15:00 60 14 117/52 (73) 98 09/24/18 14:00 62 14 116/47 (70) 98 09/24/18 13:12 65 14 30 09/24/18 13:00 68 14 106/42 (63) 99 09/24/18 12:00 Mechanical Ventilator 09/24/18 12:00 66 09/24/18 12:00 30 09/24/18 12:00 98.5 76 14 120/47 (71) 97 09/24/18 11:13 57 14 100 Mechanical Ventilator 30 09/24/18 11:12 56 14 30 09/24/18 11:04 58 14 100 Mechanical Ventilator 30 09/24/18 11:00 57 14 139/55 (83) 100 09/24/18 10:00 58 14 114/51 (72) 99 09/24/18 09:00 71 16 125/52 (76) 97 09/24/18 08:45 70 15 30 09/24/18 08:00 30 8/12/19 08:00 Mechanical Ventilator 09/24/18 08:00 98.5 66 14 125/52 (76) 100 09/24/18 08:00 61 09/24/18 07:00 73 14 100 Mechanical Ventilator 30 09/24/18 07:00 66 14 147/58 (87) 100 09/24/18 06:59 58 14 30 09/24/18 06:52 59 14 98 Mechanical Ventilator 30 09/24/18 06:30 30 09/24/18 06:00 64 14 138/51 (80) 98 09/24/18 05:09 58 14 30 09/24/18 05:00 59 14 127/51 (76) 100 09/24/18 04:00 Mechanical Ventilator 09/24/18 04:00 99.5 73 14 119/49 (72) 100 09/24/18 04:00 80 09/24/18 04:00 72 09/24/18 03:18 88 16 96 Mechanical Ventilator 30 09/24/18 03:03 76 14 94 Mechanical Ventilator 30 09/24/18 03:03 64 14 30 09/24/18 03:00 65 14 122/51 (74) 93 09/24/18 02:00 69 14 104/43 (63) 93 09/24/18 01:00 71 14 127/51 (76) 93 09/24/18 00:55 80 14 30 09/24/18 00:00 Mechanical Ventilator 09/24/18 00:00 77 09/24/18 00:00 99.3 75 14 92/44 (60) 95 09/24/18 00:00 50 09/23/18 23:00 78 14 110/56 (74) 93 09/23/18 22:50 87 14 97 Mechanical Ventilator 30 09/23/18 22:41 76 14 30 09/23/18 22:40 90 14 96 Mechanical Ventilator 30 Micro: Microbiology Date/Time Source Procedure Growth Status 09/21/18 23:40 Sputum Gram Stain - Final Resulted 09/21/18 23:40 Sputum Culture - Preliminary Klebsiella Ornithinolytica Staphylococcus Aureus Resulted 09/22/18 07:20 Urine,Clean Catch Urine Culture - Preliminary Resulted Accucheck: 206 Critical Care - Subjective ROS Limited/Unobtainable: No FI02: 30 Vent Support Breath Rate: 14 Vent Support Mode: AC Vent Tidal Volume: 500 Sputum Amount: Small PEEP: 5.0 PIP: 27 Tube Feeding Amount: 60 I&O: Intake and Output 09/23/18 09/24/18 18:59 06:59 Intake Total 730 ml 1715.0 ml Output Total 770 ml 700 ml Balance -40 ml 1015.0 ml Intake Free Water 250 ml IV Total 550 ml 925.0 ml Tube Feeding 180 ml 540 ml Output Urine Total 770 ml 700 ml # Bowel Movements 2 1 ET-Tube: 7.0 ET Position: 22 Marcelo Swift MD Sep 24, 2018 22:02
--- NOTE | 2018-09-24 23:20 | NUR ---
NURSE NOTES: Patient in bed watching TV, no moaning no facial grimaces noted. Suctioned as needed. Turned and repositioned. Oral care provided. No s/s of hypo/hyperglycemia. Will continue plan of care.
[2018-09-25] VITALS (24 sets, daily range): BP systolic 102–146; BP diastolic 38–107
[2018-09-25] MEDS: NovoLOG Insulin Flexpen SUBQ SCH ×4 (00:07→18:06)
[2018-09-25] MEDS: D5 1/2NS w/KCl 20mEq 1,000 ML IV SCH ×2 (00:07→17:49)
--- NOTE | 2018-09-25 00:15 | NUR ---
NURSE NOTES: Blood glucose 253mg/dl, NovoLog insulin 8 units given per sliding scale.
[2018-09-25] MEDS: Vancomycin 1.5gm Premix IVPB SCH (01:18)
--- NOTE | 2018-09-25 02:15 | NUR ---
NURSE NOTES: Turned and Repositioned patient for wound management. No fever. SR on quality assurance monitor HR 65.
[2018-09-25] MEDS: Albuterol/Ipratropium 3ml neb HHN SCH ×6 (03:20→23:06)
--- NOTE | 2018-09-25 03:34 | NUR ---
NURSE NOTES: Bed bath given tolerated well. With X1 large lose brown BM. GT intact no residual. Oral care provided. Nunez draining with shefali color urine. Will continue to monitor patient.
--- NOTE | 2018-09-25 04:10 | NUR ---
NURSE NOTES: Hold GTF at 0400 for weaning in am per Dr. Swift. HOB elevated. No residual.
[2018-09-25 05:47] LABS: BASOPHILS % (AUTO) 0.8 % (0.0-2.0); EOSINOPHILS % (AUTO) 1.5 % (0.0-3.0); LYMPHOCYTES % (AUTO) 17.2 % (20.0-45.0); MEAN CORPUSCULAR VOLUME 100 FL (80-99); MONOCYTES % (AUTO) 4.7 % (1.0-10.0); NEUTROPHILS % (AUTO) 75.8 % (45.0-75.0); PLATELET COUNT 525 K/UL (150-450); RED CELL DISTRIBUTION WIDTH 14.6 % (11.6-14.8); WHITE BLOOD COUNT 9.3 K/UL (4.8-10.8)
--- NOTE | 2018-09-25 06:00 | NUR ---
NURSE NOTES: Blood glucose 280mg/dl, 8 units NovoLog insulin per sliding scale given.
[2018-09-25 06:15] LABS: ANION GAP 5 mmol/L (5-15); BLOOD UREA NITROGEN 10 mg/dL (7-18); CALCIUM 8.7 MG/DL (8.5-10.1); CARBON DIOXIDE 29 MMOL/L (21-32); CHLORIDE 110 MMOL/L (98-107); CREATININE 0.7 MG/DL (0.55-1.30); POTASSIUM 4.1 MMOL/L (3.5-5.1); SODIUM 144 MMOL/L (136-145)
--- NOTE | 2018-09-25 07:00 | NUR ---
RESPIRATORY NOTES: Received Patient on Vent settings ACVC 14, VT 500, Fio2 30%, PEEP +5. Patient currently intubated with 7.0 ETT at 22 cm lip line. Patient awake and confused. Breath sounds are bilateral diminished throughout both lung manning. Suctioned small amount of clear secretions through ETT. Vent plugged into red outlet. Alarms are on and audible. Will continue to monitor throughout the day.
--- NOTE | 2018-09-25 07:25 | NUR ---
HAND-OFF: Report given to Rosi WASHINGTON.
--- NOTE | 2018-09-25 07:30 | NUR ---
NURSE NOTES: Received change of shift report from Leatha WASHINGTON. Pt is awake, orally intubated, follows with eyes from time to time however with flat affect. ETT 7.0 at 22cm lipline with vent settings AC14, Vt500, FIO2 30%, Peep 5.0 with O2sat at 100%. Bilateral inspiratory and expiratory rhonchi/rales present on auscultation. monitoring specialist displays NSR with heart rate in the 70's. Weak peripheral pulses noted on palpation with bilateral extremity edema. Left upper arm double lumen PICC line is present with IV fluid infusing D5 0.45%NS with 20meq KCL at 50ml/hour. Pt has GT in place with dressing at GT entry site, dry/intact. Feeding Glucerna 1.2 is currently on hold for weaning trial/from vent. Pt has taylor catheter in place, draining clear/yellow urine. Skin has sacral wound covered with optifoam dressing, dry/intact, left ear blister, and right heel erythema. Pt is on P200 pressure release mattress. Bed in locked with three side rails up, in lowest position, with head of bed at 30degrees and call light within reach. Will continue to monitor pt and follow plan of care per MD orders and protocol.
--- NOTE | 2018-09-25 07:47 | NUR ---
RESPIRATORY NOTES: Placed patient on PS +8 PEEP +5 fIO2 30% AT 0740. Patient passed weaning criteria and is tolerating well. Will continue to monitor. Addendum: 09/25/18 at 0751 by PETER REA RT Leak test passed.
[2018-09-25] MEDS: Docusate 100mg tablet GT SCH ×2 (09:00→17:04)
--- NOTE | 2018-09-25 09:00 | NUR ---
NURSE NOTES: AM meds were administered with the exception of Colace as pt has been having large, soft/formed BMs. GT feeding remains on hold, as vent is being weaning off vent, currently on CPAP settings PS 8, FIO2 30%, which was started by RT at 0740 this morning. Pt is tolerating well with stable VS. Oral care was done and pt repositioned with bilateral extremities elevated on pillows.
--- NOTE | 2018-09-25 09:21 | NUR ---
Social Work This SW received a consult due to bioethics to follow. Patient has a decision maker, brother, Ryan Archibald ([phone]) who is the decision and will require further education regarding appropriate treatment for patient. Patient may need Trach care, in which brother is refusing (wanting patient to remain intubated at this time). This SW left a message with brother (awaiting call return at this time).
--- NOTE | 2018-09-25 09:59 | Nephrology Progress Note ---
Assessment/Plan Problem List: (1) KEL (acute kidney injury) (2) Respiratory failure (3) Dehydration (4) Electrolyte imbalance (5) G tube feedings (6) Hypokalemia (7) CVA, old, hemiparesis (8) DM (diabetes mellitus) Plan failing weaning- being tried again today antibiotics Pulm support correct lytes BS and BP check and monitor per consultants Subjective ROS Limited/Unobtainable: Yes Objective Objective Last 24 Hour Vital Signs Date Time Temp Pulse Resp B/P (MAP) Pulse Ox O2 Delivery O2 Flow Rate FiO2 09/25/18 08:44 70 26 30 30 09/25/18 08:00 71 28 141/51 (81) 100 09/25/18 07:46 Mechanical Ventilator 30 09/25/18 07:46 Mechanical Ventilator 30 09/25/18 07:43 66 27 30 09/25/18 07:00 68 22 141/53 (82) 100 09/25/18 06:00 62 15 134/48 (76) 100 09/25/18 05:00 64 15 135/47 (76) 100 09/25/18 04:52 68 14 30 09/25/18 04:00 68 09/25/18 04:00 30 09/25/18 04:00 Mechanical Ventilator 09/25/18 04:00 98.6 61 14 129/107 (114) 100 09/25/18 03:30 76 14 100 Mechanical Ventilator 30 09/25/18 03:21 62 14 100 Mechanical Ventilator 30 09/25/18 03:20 62 15 30 09/25/18 03:00 71 14 138/38 (71) 100 09/25/18 02:00 60 14 128/71 (90) 100 09/25/18 01:00 70 14 126/50 (75) 98 09/25/18 00:55 72 15 30 09/25/18 00:00 30 09/25/18 00:00 Mechanical Ventilator 09/25/18 00:00 70 09/25/18 00:00 98.8 69 14 116/46 (69) 97 09/24/18 23:18 67 14 99 Mechanical Ventilator 30 09/24/18 23:09 70 14 99 Mechanical Ventilator 30 09/24/18 23:08 70 14 30 09/24/18 23:00 62 14 105/46 (65) 98 09/24/18 22:00 65 14 133/58 (83) 98 09/24/18 21:00 66 14 119/47 (71) 98 09/24/18 20:00 98.6 64 14 110/43 (65) 98 09/24/18 20:00 30 09/24/18 20:00 Mechanical Ventilator 09/24/18 20:00 64 09/24/18 19:22 73 14 100 Mechanical Ventilator 30 09/24/18 19:12 63 14 99 Mechanical Ventilator 30 09/24/18 19:12 61 14 30 09/24/18 19:00 66 15 129/51 (77) 99 09/24/18 18:00 66 14 101/43 (62) 98 09/24/18 17:25 60 14 30 09/24/18 17:00 70 14 115/49 (71) 98 09/24/18 16:00 30 09/24/18 16:00 58 09/24/18 16:00 99.2 70 14 116/44 (68) 97 09/24/18 16:00 Mechanical Ventilator 09/24/18 15:38 70 14 100 Mechanical Ventilator 30 09/24/18 15:35 59 14 30 09/24/18 15:30 76 14 100 Mechanical Ventilator 30 09/24/18 15:28 82 14 30 09/24/18 15:00 60 14 117/52 (73) 98 09/24/18 14:00 62 14 116/47 (70) 98 09/24/18 13:12 65 14 30 09/24/18 13:00 68 14 106/42 (63) 99 09/24/18 12:00 Mechanical Ventilator 09/24/18 12:00 66 09/24/18 12:00 30 09/24/18 12:00 98.5 76 14 120/47 (71) 97 09/24/18 11:13 57 14 100 Mechanical Ventilator 30 09/24/18 11:12 56 14 30 09/24/18 11:04 58 14 100 Mechanical Ventilator 30 09/24/18 11:00 57 14 139/55 (83) 100 09/24/18 10:00 58 14 114/51 (72) 99 Intake and Output 09/24/18 09/25/18 19:00 07:00 Intake Total 1540 ml 1970.0 ml Output Total 1535 ml 1545 ml Balance 5 ml 425.0 ml Intake Free Water 300 ml 300 ml IV Total 700 ml 1070.0 ml Tube Feeding 540 ml 540 ml Other 60 ml Output Urine Total 1535 ml 1545 ml # Bowel Movements 2 2 Laboratory Tests 09/25/18 05:20: White Blood Count 9.3, Red Blood Count 3.50L, Hemoglobin 11.0L, Hematocrit 35.0L , Mean Corpuscular Volume 100H, Mean Corpuscular Hemoglobin 31.5H, Mean Corpuscular Hemoglobin Concent 31.5L, Red Cell Distribution Width 14.6, Platelet Count 525H, Mean Platelet Volume 4.3L, Neutrophils (%) (Auto) 75.8H, Lymphocytes (%) (Auto) 17.2L, Monocytes (%) (Auto) 4.7, Eosinophils (%) (Auto) 1.5, Basophils (%) (Auto) 0.8, Sodium Level 144, Potassium Level 4.1, Chloride Level 110H, Carbon Dioxide Level 29, Anion Gap 5, Blood Urea Nitrogen 10, Creatinine 0.7, Estimat Glomerular Filtration Rate , Glucose Level 190H, Calcium Level 8.7, Magnesium Level 2.0 Height (Feet): 5 Height (Inches): 3.00 Weight (Pounds): 123 EENT: other - vented- on weaning trial Respiratory/Chest: decreased breath sounds Abdomen: distended Objective no change Dwayne Vernon MD Sep 25, 2018 09:59
[2018-09-25] MEDS: Pantoprazole Inj IV SCH (10:05)
[2018-09-25] MEDS: Ascorbic Acid 500mg tab ORAL SCH ×2 (10:06→17:48)
[2018-09-25] MEDS: Heparin 5000 units/ml inj SUBQ SCH ×2 (10:08→20:56)
--- NOTE | 2018-09-25 11:06 | GI Progress Note ---
Assessment/Plan Problems: (1) DM (diabetes mellitus) ICD Codes: E11.9 - Type 2 diabetes mellitus without complications SNOMED: 62444201 (2) Dehydration ICD Codes: E86.0 - Dehydration SNOMED: 02480975 (3) G tube feedings ICD Codes: Z93.1 - Gastrostomy status SNOMED: 116208613, 929869510, 738878903 (4) Electrolyte imbalance ICD Codes: E87.8 - Other disorders of electrolyte and fluid balance, not elsewhere classified SNOMED: 978032403 (5) Sepsis ICD Codes: A41.9 - Sepsis, unspecified organism SNOMED: 75016961 Status: progressing Status Narrative Discussed with Dr. Brown. Assessment/Plan GTF>> on hold for possible extubation fu labs abx per ID respiratory care fu abd us>> neg cont bowel regimen follow labs The patient was seen and examined at bedside and all new and available data was reviewed in the patients chart. I agree with the above findings, impression and plan. (Patient seen earlier today. Signature stamp does not reflect patient encounter time.). - Ovi Brown MD Subjective Subjective limited Objective Last 24 Hour Vital Signs Date Time Temp Pulse Resp B/P (MAP) Pulse Ox O2 Delivery O2 Flow Rate FiO2 09/25/18 10:41 75 26 100 Mechanical Ventilator 30 09/25/18 10:38 98 09/25/18 10:38 72 27 30 30 09/25/18 10:32 72 27 100 Mechanical Ventilator 30 09/25/18 10:00 70 28 135/58 (83) 98 09/25/18 09:00 98.9 70 27 126/46 (72) 98 09/25/18 08:44 70 26 30 30 09/25/18 08:00 71 28 141/51 (81) 100 09/25/18 08:00 Mechanical Ventilator 09/25/18 08:00 30 09/25/18 07:46 Mechanical Ventilator 30 09/25/18 07:46 Mechanical Ventilator 30 09/25/18 07:43 66 27 30 09/25/18 07:00 68 22 141/53 (82) 100 09/25/18 06:00 62 15 134/48 (76) 100 09/25/18 05:00 64 15 135/47 (76) 100 09/25/18 04:52 68 14 30 09/25/18 04:00 68 09/25/18 04:00 30 09/25/18 04:00 Mechanical Ventilator 09/25/18 04:00 98.6 61 14 129/107 (114) 100 09/25/18 03:30 76 14 100 Mechanical Ventilator 30 09/25/18 03:21 62 14 100 Mechanical Ventilator 30 09/25/18 03:20 62 15 30 09/25/18 03:00 71 14 138/38 (71) 100 09/25/18 02:00 60 14 128/71 (90) 100 09/25/18 01:00 70 14 126/50 (75) 98 09/25/18 00:55 72 15 30 09/25/18 00:00 30 09/25/18 00:00 Mechanical Ventilator 09/25/18 00:00 70 09/25/18 00:00 98.8 69 14 116/46 (69) 97 09/24/18 23:18 67 14 99 Mechanical Ventilator 30 09/24/18 23:09 70 14 99 Mechanical Ventilator 30 09/24/18 23:08 70 14 30 09/24/18 23:00 62 14 105/46 (65) 98 09/24/18 22:00 65 14 133/58 (83) 98 09/24/18 21:00 66 14 119/47 (71) 98 09/24/18 20:00 98.6 64 14 110/43 (65) 98 09/24/18 20:00 30 09/24/18 20:00 Mechanical Ventilator 09/24/18 20:00 64 09/24/18 19:22 73 14 100 Mechanical Ventilator 30 09/24/18 19:12 63 14 99 Mechanical Ventilator 30 09/24/18 19:12 61 14 30 09/24/18 19:00 66 15 129/51 (77) 99 09/24/18 18:00 66 14 101/43 (62) 98 09/24/18 17:25 60 14 30 09/24/18 17:00 70 14 115/49 (71) 98 09/24/18 16:00 30 09/24/18 16:00 58 09/24/18 16:00 99.2 70 14 116/44 (68) 97 09/24/18 16:00 Mechanical Ventilator 09/24/18 15:38 70 14 100 Mechanical Ventilator 30 09/24/18 15:35 59 14 30 09/24/18 15:30 76 14 100 Mechanical Ventilator 30 09/24/18 15:28 82 14 30 09/24/18 15:00 60 14 117/52 (73) 98 09/24/18 14:00 62 14 116/47 (70) 98 09/24/18 13:12 65 14 30 09/24/18 13:00 68 14 106/42 (63) 99 09/24/18 12:00 Mechanical Ventilator 09/24/18 12:00 66 09/24/18 12:00 30 09/24/18 12:00 98.5 76 14 120/47 (71) 97 09/24/18 11:13 57 14 100 Mechanical Ventilator 30 09/24/18 11:12 56 14 30 Intake and Output 09/24/18 09/25/18 19:00 07:00 Intake Total 1540 ml 1970.0 ml Output Total 1535 ml 1545 ml Balance 5 ml 425.0 ml Intake Free Water 300 ml 300 ml IV Total 700 ml 1070.0 ml Tube Feeding 540 ml 540 ml Other 60 ml Output Urine Total 1535 ml 1545 ml # Bowel Movements 2 2 Laboratory Tests Test 09/25/18 05:20 White Blood Count 9.3 K/UL (4.8-10.8) Red Blood Count 3.50 M/UL (4.20-5.40) L Hemoglobin 11.0 G/DL (12.0-16.0) L Hematocrit 35.0 % (37.0-47.0) L Mean Corpuscular Volume 100 FL (80-99) H Mean Corpuscular Hemoglobin 31.5 PG (27.0-31.0) H Mean Corpuscular Hemoglobin Concent 31.5 G/DL (32.0-36.0) L Red Cell Distribution Width 14.6 % (11.6-14.8) Platelet Count 525 K/UL (150-450) H Mean Platelet Volume 4.3 FL (6.5-10.1) L Neutrophils (%) (Auto) 75.8 % (45.0-75.0) H Lymphocytes (%) (Auto) 17.2 % (20.0-45.0) L Monocytes (%) (Auto) 4.7 % (1.0-10.0) Eosinophils (%) (Auto) 1.5 % (0.0-3.0) Basophils (%) (Auto) 0.8 % (0.0-2.0) Sodium Level 144 MMOL/L (136-145) Potassium Level 4.1 MMOL/L (3.5-5.1) Chloride Level 110 MMOL/L (98-107) H Carbon Dioxide Level 29 MMOL/L (21-32) Anion Gap 5 mmol/L (5-15) Blood Urea Nitrogen 10 mg/dL (7-18) Creatinine 0.7 MG/DL (0.55-1.30) Estimat Glomerular Filtration Rate mL/min (>60) Glucose Level 190 MG/DL (74-106) H Calcium Level 8.7 MG/DL (8.5-10.1) Magnesium Level 2.0 MG/DL (1.8-2.4) Height (Feet): 5 Height (Inches): 3.00 Weight (Pounds): 123 General Appearance: WD/WN, no apparent distress, alert Cardiovascular: normal rate Respiratory/Chest: normal breath sounds, no respiratory distress Abdominal Exam: normal bowel sounds, non tender, soft Extremities: non-tender Valente Bethea NP Sep 25, 2018 11:06
--- NOTE | 2018-09-25 11:15 | NUR ---
NURSE NOTES: Pt has eyes open with flat affect, watching TV. Pt is maintained on CPAP settings with PS 8, FIO2 30% on vent; tolerating well with stable VS. Remains afebrile.
--- NOTE | 2018-09-25 12:30 | NUR ---
NURSE NOTES: Pt is resting with stable VS. Remains afebrile. Pt is tolerating the weaning trial at CPAP setting with PS 8, FIO2 30%. Dr Swift aware. Pt to be switched back to AC setting and reattempt weaning tomorrow.
--- NOTE | 2018-09-25 13:54 | NUR ---
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 98.7 HR 80 RR 28 B/P 146/55 CPAP FIO2 30% PEEP 5 PS 10 IS: IVF D5KCL @50ML/HR VANCO IV MEROPENEM IV PROTONIX IV LEVEMIR SUBC WEANING PROTOCAL ICU STATUS
--- NOTE | 2018-09-25 14:00 | NUR ---
NURSE NOTES: Pt is awake with flat effect. Pt was repositioned with bilateral extremities elevated on pillows. VS stable.
--- NOTE | 2018-09-25 14:29 | General Progress Note ---
Assessment/Plan Status: progressing Assessment/Plan: Assessment/Plan Status: unchanged Assessment/Plan: 77 y/o F with acute hypoxemic respiratory failure and sepsis admitted to ICU # Acute hypoxemic respiratory failur suspect very low prognosis given neurologic status, family does not want tracheostomy and she is not tolerating weaning trials - ICU management by seamer operator appreciated. - Bioethics consult requested. FULL CODE per family and not able to safely extubate. TODAY, the patient tolerated CPAP trial x 3 hours. Plans for possible extubation tomorrow AM per ICU - Serial ABG and CXR as needed. 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 - Nephrology follow up appreciated. 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 - R gaze preference noted. - Awake today and moves her R side # Hypertension - Monitor and resume home medications not needed now due to hypotension. # History of dementia - Supportive care - SW to attempt to find family members # DVT and GI ppx # FULL CODE by records. - CM / SW follow up for family is needed. Bioethics consult Subjective ROS Limited/Unobtainable: Yes Allergies: Coded Allergies: No Known Allergies (Unverified , 02/04/17) Subjective First time I see her this responsive, intubated, opens eyes spontaneously Objective Last 24 Hour Vital Signs Date Time Temp Pulse Resp B/P (MAP) Pulse Ox O2 Delivery O2 Flow Rate FiO2 09/25/18 13:00 71 24 126/50 (75) 100 09/25/18 12:59 72 26 30 30 09/25/18 12:00 71 09/25/18 12:00 30 09/25/18 12:00 98.7 80 28 146/55 (85) 100 09/25/18 12:00 Mechanical Ventilator 09/25/18 11:00 73 26 135/48 (77) 100 09/25/18 10:41 75 26 100 Mechanical Ventilator 30 09/25/18 10:38 98 09/25/18 10:38 72 27 30 30 09/25/18 10:32 72 27 100 Mechanical Ventilator 30 09/25/18 10:00 70 28 135/58 (83) 98 09/25/18 09:00 98.9 70 27 126/46 (72) 98 09/25/18 08:44 70 26 30 30 09/25/18 08:00 71 28 141/51 (81) 100 09/25/18 08:00 64 09/25/18 08:00 Mechanical Ventilator 09/25/18 08:00 30 09/25/18 07:46 Mechanical Ventilator 30 09/25/18 07:46 Mechanical Ventilator 30 09/25/18 07:43 66 27 30 09/25/18 07:00 68 22 141/53 (82) 100 09/25/18 06:00 62 15 134/48 (76) 100 09/25/18 05:00 64 15 135/47 (76) 100 09/25/18 04:52 68 14 30 09/25/18 04:00 68 09/25/18 04:00 30 09/25/18 04:00 Mechanical Ventilator 09/25/18 04:00 98.6 61 14 129/107 (114) 100 09/25/18 03:30 76 14 100 Mechanical Ventilator 30 09/25/18 03:21 62 14 100 Mechanical Ventilator 30 09/25/18 03:20 62 15 30 09/25/18 03:00 71 14 138/38 (71) 100 09/25/18 02:00 60 14 128/71 (90) 100 09/25/18 01:00 70 14 126/50 (75) 98 09/25/18 00:55 72 15 30 09/25/18 00:00 30 09/25/18 00:00 Mechanical Ventilator 09/25/18 00:00 70 09/25/18 00:00 98.8 69 14 116/46 (69) 97 09/24/18 23:18 67 14 99 Mechanical Ventilator 30 09/24/18 23:09 70 14 99 Mechanical Ventilator 30 09/24/18 23:08 70 14 30 09/24/18 23:00 62 14 105/46 (65) 98 09/24/18 22:00 65 14 133/58 (83) 98 09/24/18 21:00 66 14 119/47 (71) 98 09/24/18 20:00 98.6 64 14 110/43 (65) 98 09/24/18 20:00 30 09/24/18 20:00 Mechanical Ventilator 09/24/18 20:00 64 09/24/18 19:22 73 14 100 Mechanical Ventilator 30 09/24/18 19:12 63 14 99 Mechanical Ventilator 30 09/24/18 19:12 61 14 30 09/24/18 19:00 66 15 129/51 (77) 99 09/24/18 18:00 66 14 101/43 (62) 98 09/24/18 17:25 60 14 30 09/24/18 17:00 70 14 115/49 (71) 98 09/24/18 16:00 30 09/24/18 16:00 58 09/24/18 16:00 99.2 70 14 116/44 (68) 97 09/24/18 16:00 Mechanical Ventilator 09/24/18 15:38 70 14 100 Mechanical Ventilator 30 09/24/18 15:35 59 14 30 09/24/18 15:30 76 14 100 Mechanical Ventilator 30 09/24/18 15:28 82 14 30 09/24/18 15:00 60 14 117/52 (73) 98 Intake and Output 09/24/18 09/25/18 19:00 07:00 Intake Total 1540 ml 1970.0 ml Output Total 1535 ml 1545 ml Balance 5 ml 425.0 ml Intake Free Water 300 ml 300 ml IV Total 700 ml 1070.0 ml Tube Feeding 540 ml 540 ml Other 60 ml Output Urine Total 1535 ml 1545 ml # Bowel Movements 2 2 Laboratory Tests 09/25/18 05:20: White Blood Count 9.3, Red Blood Count 3.50L, Hemoglobin 11.0L, Hematocrit 35.0L , Mean Corpuscular Volume 100H, Mean Corpuscular Hemoglobin 31.5H, Mean Corpuscular Hemoglobin Concent 31.5L, Red Cell Distribution Width 14.6, Platelet Count 525H, Mean Platelet Volume 4.3L, Neutrophils (%) (Auto) 75.8H, Lymphocytes (%) (Auto) 17.2L, Monocytes (%) (Auto) 4.7, Eosinophils (%) (Auto) 1.5, Basophils (%) (Auto) 0.8, Sodium Level 144, Potassium Level 4.1, Chloride Level 110H, Carbon Dioxide Level 29, Anion Gap 5, Blood Urea Nitrogen 10, Creatinine 0.7, Estimat Glomerular Filtration Rate , Glucose Level 190H, Calcium Level 8.7, Magnesium Level 2.0 Height (Feet): 5 Height (Inches): 3.00 Weight (Pounds): 123 General Appearance: moderate distress EENT: PERRL/EOMI Neck: non-tender Cardiovascular: normal rate Respiratory/Chest: lungs clear Abdomen: non tender Neurologic: debt management counselor II-XII grossly normal Geovanny Jerez MD Sep 25, 2018 14:29
--- NOTE | 2018-09-25 16:00 | NUR ---
NURSE NOTES: Pt was seen by Dr Swift. Order received to wean pt tomorrow. Hold GT feed at 0400. If pt passes weaning, draw ABGs 30min post wean. Report NIF and RSBI to Dr Swift for possible extubation. Pt's brother was at bedside and informed regarding this plan. MD's order was processed under "other nursing orders". VS stable.
--- NOTE | 2018-09-25 16:20 | Infectious Diseases Prog Note ---
Assessment/Plan Assessment/Plan ASSESSMENT AND PLAN: 1. 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 ICU care. 3. Skin care protocol. 4. History of CVA and TIA, and aspiration risk. 5. Dementia. 6. Hypertension. 7. Blood pressure treatment per primary. 8. Acute kidney injury. 9. Weakness. 10. Hemiplegia. 11. Dysphagia, G-tube. 12. Encephalopathy. 13. No known drug allergies. 14. Social history is negative. 15. Family history is noncontributory. 16. MAR was noted. 17. Case discussed with RN. 18. Continue treatment per primary consultants. 19. Notes and records were noted. Orders were entered. 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, vre colonization Subjective Constitutional: Reports: other - on vent ; Denies: fever HEENT: Reports: congestion Respiratory: Reports: shortness of breath Cardiovascular: Reports: other - no pressors Gastrointestinal/Abdominal: Denies: nausea, vomiting, diarrhea Genitourinary: Reports: other - + tayolr Neurologic: Reports: other - more alert Psychiatric: Reports: other - NA Skin: Denies: rash Hematologic: Denies: bleeding Musculoskeletal: Reports: other - NA Allergies: Coded Allergies: No Known Allergies (Unverified , 02/04/17) Objective Vital Signs Last 24 Hour Vital Signs Date Time Temp Pulse Resp B/P (MAP) Pulse Ox O2 Delivery O2 Flow Rate FiO2 09/25/18 15:32 75 14 100 Mechanical Ventilator 30 09/25/18 15:27 79 22 30 09/25/18 15:25 78 16 100 Mechanical Ventilator 30 09/25/18 14:00 66 14 118/49 (72) 100 09/25/18 13:00 71 24 126/50 (75) 100 09/25/18 12:59 72 26 30 30 09/25/18 12:00 71 09/25/18 12:00 30 09/25/18 12:00 98.7 80 28 146/55 (85) 100 09/25/18 12:00 Mechanical Ventilator 09/25/18 11:00 73 26 135/48 (77) 100 09/25/18 10:41 75 26 100 Mechanical Ventilator 30 09/25/18 10:38 98 09/25/18 10:38 72 27 30 30 09/25/18 10:32 72 27 100 Mechanical Ventilator 30 09/25/18 10:00 70 28 135/58 (83) 98 09/25/18 09:00 98.9 70 27 126/46 (72) 98 09/25/18 08:44 70 26 30 30 09/25/18 08:00 71 28 141/51 (81) 100 09/25/18 08:00 64 09/25/18 08:00 Mechanical Ventilator 09/25/18 08:00 30 09/25/18 07:46 Mechanical Ventilator 30 09/25/18 07:46 Mechanical Ventilator 30 09/25/18 07:43 66 27 30 09/25/18 07:00 68 22 141/53 (82) 100 09/25/18 06:00 62 15 134/48 (76) 100 09/25/18 05:00 64 15 135/47 (76) 100 09/25/18 04:52 68 14 30 09/25/18 04:00 68 09/25/18 04:00 30 09/25/18 04:00 Mechanical Ventilator 09/25/18 04:00 98.6 61 14 129/107 (114) 100 09/25/18 03:30 76 14 100 Mechanical Ventilator 30 09/25/18 03:21 62 14 100 Mechanical Ventilator 30 09/25/18 03:20 62 15 30 09/25/18 03:00 71 14 138/38 (71) 100 09/25/18 02:00 60 14 128/71 (90) 100 09/25/18 01:00 70 14 126/50 (75) 98 09/25/18 00:55 72 15 30 09/25/18 00:00 30 09/25/18 00:00 Mechanical Ventilator 09/25/18 00:00 70 09/25/18 00:00 98.8 69 14 116/46 (69) 97 09/24/18 23:18 67 14 99 Mechanical Ventilator 30 09/24/18 23:09 70 14 99 Mechanical Ventilator 30 09/24/18 23:08 70 14 30 09/24/18 23:00 62 14 105/46 (65) 98 8/12/19 22:00 65 14 133/58 (83) 98 09/24/18 21:00 66 14 119/47 (71) 98 09/24/18 20:00 98.6 64 14 110/43 (65) 98 09/24/18 20:00 30 09/24/18 20:00 Mechanical Ventilator 09/24/18 20:00 64 09/24/18 19:22 73 14 100 Mechanical Ventilator 30 09/24/18 19:12 63 14 99 Mechanical Ventilator 30 09/24/18 19:12 61 14 30 09/24/18 19:00 66 15 129/51 (77) 99 09/24/18 18:00 66 14 101/43 (62) 98 09/24/18 17:25 60 14 30 09/24/18 17:00 70 14 115/49 (71) 98 Height (Feet): 5 Height (Inches): 3.00 Weight (Pounds): 123 General Appearance: other - on vent HEENT: normocephalic, atraumatic, anicteric, no JVD, other - oral - intubated Respiratory/Chest: crackles/rales, rhonchi - bilaterally Cardiovascular: normal rate, regular rhythm, no gallop/murmur, no JVD Abdomen: normal bowel sounds, soft, non tender, non distended Genitourinary: other - + taylor Extremities: no cyanosis Skin: no rash Neurologic/Psychiatric: material dispatcher 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 Mild interstitial prominence. Pleural space: Small right pleural effusion, slightly worse. Improved small left pleural effusion. No pneumothorax. Heart: Unremarkable. No cardiomegaly. Mediastinum: Unremarkable. Bones/joints: Unremarkable. Tubes, lines and devices: Stable endotracheal tube. 09/18/18 - Chest x-ray - IMPRESSION: 1. Stable endotracheal tube. 2. Bibasilar lung atelectasis/airspace disease. Mild interstitial prominence. 3. Small right pleural effusion, slightly worse. Improved small left pleural effusion. Comparison: 09/15/2018 A single view chest radiograph was obtained. Findings: Endotracheal tube remains in good position. Pulmonary vascular congestion is present. Basilar atelectasis noted. Small bilateral pleural effusions are not excluded. IMPRESSION: Pulmonary vascular congestion Chest x-ray - 09/22/18 - IMPRESSION: 1. Subsegmental atelectasis versus infiltrates in bilateral lung bases, not significantly changed compared to the prior exam. 2. Possible small bilateral layering pleural effusions, also not significantly changed. 3. Mildly increased interstitial markings. This is nonspecific but may suggest mild pulmonary vascular congestion or a mild interstitial pneumonitis. Microbiology Date/Time Source Procedure Growth Status 09/21/18 19:00 Blood Blood Culture - Preliminary NO GROWTH AFTER 72 HOURS Resulted 09/21/18 23:40 Sputum Gram Stain - Final Complete 09/21/18 23:40 Sputum Culture - Final Klebsiella Ornithinolytica Staphylococcus Aureus - Mrsa Usual Respiratory Charmaine Complete 09/16/18 16:15 Stool Clostridium difficile Toxin Assay - Final Complete 09/22/18 07:20 Urine,Clean Catch Urine Culture - Preliminary YEAST Resulted 09/14/18 09:00 Rectum VRE Culture - Final Enterococcus Faecium - Vre Complete Laboratory Tests Test 09/25/18 05:20 White Blood Count 9.3 K/UL (4.8-10.8) Red Blood Count 3.50 M/UL (4.20-5.40) L Hemoglobin 11.0 G/DL (12.0-16.0) L Hematocrit 35.0 % (37.0-47.0) L Mean Corpuscular Volume 100 FL (80-99) H Mean Corpuscular Hemoglobin 31.5 PG (27.0-31.0) H Mean Corpuscular Hemoglobin Concent 31.5 G/DL (32.0-36.0) L Red Cell Distribution Width 14.6 % (11.6-14.8) Platelet Count 525 K/UL (150-450) H Mean Platelet Volume 4.3 FL (6.5-10.1) L Neutrophils (%) (Auto) 75.8 % (45.0-75.0) H Lymphocytes (%) (Auto) 17.2 % (20.0-45.0) L Monocytes (%) (Auto) 4.7 % (1.0-10.0) Eosinophils (%) (Auto) 1.5 % (0.0-3.0) Basophils (%) (Auto) 0.8 % (0.0-2.0) Sodium Level 144 MMOL/L (136-145) Potassium Level 4.1 MMOL/L (3.5-5.1) Chloride Level 110 MMOL/L (98-107) H Carbon Dioxide Level 29 MMOL/L (21-32) Anion Gap 5 mmol/L (5-15) Blood Urea Nitrogen 10 mg/dL (7-18) Creatinine 0.7 MG/DL (0.55-1.30) Estimat Glomerular Filtration Rate mL/min (>60) Glucose Level 190 MG/DL (74-106) H Calcium Level 8.7 MG/DL (8.5-10.1) Magnesium Level 2.0 MG/DL (1.8-2.4) Current Medications Medications (Trade) Dose Ordered Sig/Wayne Route PRN Reason Start Time Stop Time Status Last Admin Dose Admin Acetaminophen (Tylenol) 650 mg Q4H PRN GT Mild Pain/Temp > 100.5 09/23/18 07:15 10/23/18 07:14 Acetylcysteine (Mucomyst) 100 mg Q4HRT N 09/21/18 19:00 10/21/18 18:59 09/25/18 15:30 Albuterol/ Ipratropium (Albuterol/ Ipratropium) 3 ml Q4HRT [facility] 09/21/18 19:00 09/26/18 18:59 09/25/18 15:30 Artificial Tears (Akwa-Tears) 1 drop Q4H PRN BOTH EYES Dry Eyes 09/18/18 12:30 10/18/18 12:29 Ascorbic Acid (Vitamin C) 250 mg TWICE A DAY ORAL 09/18/18 18:00 10/18/18 17:59 09/25/18 10:06 Bisacodyl (Dulcolax) 10 mg DAILYPRN PRN RECTAL Constipation 09/14/18 12:45 10/14/18 12:44 Ceftriaxone Sodium 1 gm/ Dextrose 50 ml @ 100 mls/hr Q24H IVPB 09/25/18 21:00 10/02/18 20:59 Chlorhexidine Gluconate (Kalma-Hex 2%) 1 applic DAILY@2000 TOPIC 09/17/18 20:00 10/17/18 19:59 09/24/18 20:57 Dextrose (Dextrose 50%) 25 ml Q30M PRN IV Hypoglycemia 09/14/18 12:45 10/14/18 12:44 Dextrose (Dextrose 50%) 50 ml Q30M PRN IV Hypoglycemia 09/14/18 12:45 10/14/18 12:44 Dextrose/ Electrolytes 1,000 ml @ 50 mls/hr Q20H IV 09/23/18 11:00 10/23/18 10:59 09/25/18 00:07 Diphenhydramine HCl (Benadryl) 25 mg Q6H PRN ORAL Itching/Pruritis 09/14/18 12:45 10/14/18 12:44 Docusate Sodium (Colace) 100 mg TWICE A DAY GT 09/25/18 09:00 10/25/18 08:59 Furosemide (Lasix) 20 mg DAILY GT 09/23/18 09:00 10/22/18 08:59 09/25/18 10:06 Heparin Sodium (Porcine) (Heparin 5000 units/ml) 5,000 units EVERY 12 HOURS SUBQ 09/14/18 21:00 10/14/18 20:59 09/25/18 10:08 Insulin Aspart (NovoLOG) Q6HR SUBQ 09/14/18 16:00 10/14/18 15:59 09/25/18 05:36 Insulin Detemir (Levemir) 12 units BEDTIME SUBQ 09/17/18 21:00 10/17/18 20:59 09/24/18 20:58 Magnesium Hydroxide (Mom) 30 ml HSPRN PRN ORAL Constipation 09/14/18 12:45 10/14/18 12:44 Metoclopramide HCl (Reglan) 10 mg Q8H PRN IVP Nausea & Vomiting 09/17/18 12:30 10/17/18 12:29 Ondansetron HCl (Zofran) 4 mg Q6H PRN IVP Nausea & Vomiting 09/14/18 12:45 10/14/18 12:44 09/17/18 07:41 Pantoprazole (Protonix) 40 mg DAILY IV 09/15/18 09:00 10/15/18 08:59 09/25/18 10:05 Vancomycin HCl (Vanco rx to dose) 1 ea DAILY PRN MISC Per rx protocol 09/14/18 12:45 10/14/18 12:44 Vancomycin HCl/ Dextrose 275 ml @ 137.5 mls/ hr Q24H IVPB 09/23/18 01:00 09/28/18 00:59 09/25/18 01:18 Milton Valladares MD Sep 25, 2018 16:20
--- NOTE | 2018-09-25 17:11 | Pulmonolgy Critical Care Note ---
Critical Care - Asmt/Plan Assessment/Plan: Pulmonary CCM Progress Note Critical Care - Asmt/Plan Problems: (1) Endotracheally intubated (2) Ventilator dependence, not tolerating CPAP trials today - apnea (3) Sepsis, on pressors PRN - antibiotics changed as febrile (4) Pneumonia (5) Electrolyte imbalance (6) Dehydration (7) Altered mental status (8) Hypernatremia (9) Respiratory failure (10) Lactic acid acidosis (11) H/O: CVA (cerebrovascular accident) (12) G tube feedings (13) KEL (acute kidney injury) Respiratory: monitor respiratory rate, adjust FIO2, ABG, other - HHN's, pulmonary hygiene, wean an tolerated, family refusing trach Cardiac: continue to monitor HR/BP Renal: keep negative Infectious Disease: check cultures, continue antibiotics per ID Gastrointestinal: enteral feeding Endocrine: monitor blood sugar, continue sliding scale insulin Hematologic: monitor H/H Neurologic: keep patient comfortable - monitor MS, consider neuro eval and EEG Prophylaxis: Protonix, Heparin Disposition: keep in ICU Time Spent (Minutes): 40 Notes Reviewed: citrix administrator, renal, ID, other - ERMD Discussed with: nurses, consultants, other - FC Critical Care - Objective Vital Signs Noted Status: sedated - intubated Condition: critical HEENT: atraumatic, normocephalic, other - ETT OGT weak gag Lungs: rhonchi Heart: HR/BP stable Abdomen: soft, non-tender, active bowel sounds, feeding tube Extremities: no C/C/E Micro: Microbiology Date/Time Source Procedure Growth Status 09/14/18 09:00 Rectum Received Critical Care - Subjective ROS Limited/Unobtainable: Yes Interval Events: 77 F NHR h/o dementia, CVA, GT, HTN, HL remains on ACVC, not tolerating PS Na 167 Cr 1.7 LA elevated + hemoconcentration No gag in ER + faint gag now + F no C no further hx obtainable Condition: critical IV Access: peripheral - x2 EKG Rhythm: Sinus Rhythm FI02: 60 Vent Support Breath Rate: 14 Vent Support Mode: AC Vent Tidal Volume: 500 Sputum Amount: Small PEEP: 5.0 PIP: 23 Secretions: scant thick Subjective: ARLETTE CXR: L RC inf, small L eff, ETT ET-Tube: 7.0 ET Position: 22 Labs: Laboratory Tests noted Critical Care - Objective Last 24 Hour Vital Signs Date Time Temp Pulse Resp B/P (MAP) Pulse Ox O2 Delivery O2 Flow Rate FiO2 09/25/18 16:00 Mechanical Ventilator 09/25/18 16:00 30 09/25/18 16:00 76 14 102/56 (71) 100 09/25/18 15:32 75 14 100 Mechanical Ventilator 30 09/25/18 15:27 79 22 30 09/25/18 15:25 78 16 100 Mechanical Ventilator 30 09/25/18 15:00 78 18 145/57 (86) 100 09/25/18 14:00 66 14 118/49 (72) 100 09/25/18 13:00 71 24 126/50 (75) 100 09/25/18 12:59 72 26 30 30 09/25/18 12:00 71 09/25/18 12:00 30 09/25/18 12:00 98.7 80 28 146/55 (85) 100 09/25/18 12:00 Mechanical Ventilator 09/25/18 11:00 73 26 135/48 (77) 100 09/25/18 10:41 75 26 100 Mechanical Ventilator 30 09/25/18 10:38 98 09/25/18 10:38 72 27 30 30 09/25/18 10:32 72 27 100 Mechanical Ventilator 30 09/25/18 10:00 70 28 135/58 (83) 98 09/25/18 09:00 98.9 70 27 126/46 (72) 98 09/25/18 08:44 70 26 30 30 09/25/18 08:00 71 28 141/51 (81) 100 09/25/18 08:00 64 09/25/18 08:00 Mechanical Ventilator 09/25/18 08:00 30 09/25/18 07:46 Mechanical Ventilator 30 09/25/18 07:46 Mechanical Ventilator 30 09/25/18 07:43 66 27 30 09/25/18 07:00 68 22 141/53 (82) 100 09/25/18 06:00 62 15 134/48 (76) 100 09/25/18 05:00 64 15 135/47 (76) 100 09/25/18 04:52 68 14 30 09/25/18 04:00 68 09/25/18 04:00 30 09/25/18 04:00 Mechanical Ventilator 09/25/18 04:00 98.6 61 14 129/107 (114) 100 09/25/18 03:30 76 14 100 Mechanical Ventilator 30 09/25/18 03:21 62 14 100 Mechanical Ventilator 30 09/25/18 03:20 62 15 30 09/25/18 03:00 71 14 138/38 (71) 100 09/25/18 02:00 60 14 128/71 (90) 100 09/25/18 01:00 70 14 126/50 (75) 98 09/25/18 00:55 72 15 30 09/25/18 00:00 30 09/25/18 00:00 Mechanical Ventilator 09/25/18 00:00 70 09/25/18 00:00 98.8 69 14 116/46 (69) 97 09/24/18 23:18 67 14 99 Mechanical Ventilator 30 09/24/18 23:09 70 14 99 Mechanical Ventilator 30 09/24/18 23:08 70 14 30 09/24/18 23:00 62 14 105/46 (65) 98 09/24/18 22:00 65 14 133/58 (83) 98 09/24/18 21:00 66 14 119/47 (71) 98 09/24/18 20:00 98.6 64 14 110/43 (65) 98 09/24/18 20:00 30 09/24/18 20:00 Mechanical Ventilator 09/24/18 20:00 64 09/24/18 19:22 73 14 100 Mechanical Ventilator 30 09/24/18 19:12 63 14 99 Mechanical Ventilator 30 09/24/18 19:12 61 14 30 09/24/18 19:00 66 15 129/51 (77) 99 09/24/18 18:00 66 14 101/43 (62) 98 09/24/18 17:25 60 14 30 Accucheck: 154 Critical Care - Subjective ROS Limited/Unobtainable: No FI02: 30 Vent Support Breath Rate: 14 Vent Support Mode: AC Vent Tidal Volume: 500 Sputum Amount: Small PEEP: 5.0 PIP: 25 Tube Feeding Amount: 60 I&O: Intake and Output 09/24/18 09/25/18 19:00 07:00 Intake Total 1540 ml 1970.0 ml Output Total 1535 ml 1545 ml Balance 5 ml 425.0 ml Intake Free Water 300 ml 300 ml IV Total 700 ml 1070.0 ml Tube Feeding 540 ml 540 ml Other 60 ml Output Urine Total 1535 ml 1545 ml # Bowel Movements 2 2 ET-Tube: 7.0 ET Position: 22 Marcelo Swift MD Sep 25, 2018 17:11
--- NOTE | 2018-09-25 18:00 | NUR ---
NURSE NOTES: Pt had BM, large, brown/formed/soft. Pt was cleaned, gown/bed linens changed. Dressing was changed. Oral care done. Pt was repositioned with bilateral extremities elevated on pillows. VS stable.
--- NOTE | 2018-09-25 19:24 | NUR ---
HAND-OFF: Report given to Leatha WASHINGTON. Endorsed plan of care. VS stable.
--- NOTE | 2018-09-25 19:28 | NUR ---
NURSE NOTES: Received pt and report from FELIX Aranda. Patient awake, alert opens eyes. Orally intubated ETT 7.0, 22cm at lip line. Vent settings: AC 14, TV500, Fi02 30%, PEEP of 5, oxygen saturation 100%. No s/s of acute distress noted. Breathing even and unlabored,. Sinus rhythm on phototypesetting equipment monitor HR 71. PEG running Glucerna 1.2 at 55 ml/hr with no residual, HOB elevated. Left UA PICC intact running D5 1/2NS +20meq KCL @50cc/hr. Nunez draining with clear yellow urine. Bed locked, alarmed and in lowest position. Will continue plan of care.
--- NOTE | 2018-09-25 20:26 | Hematology/Onc Progress Note ---
Assessment/Plan Assessment/Plan Assessment and Recs: # Thrombocytopenia --> now with thrombocytosis - potential causes multifactorial , evaluate liver and viral etiologies to begin, also could be related to underlying medications patient has received. --> Hep panel and HIV show neg results --> US abd shows no cirrhosis or hsm --> Peripheral smear ordered to evaluate for blasts /schistocytes --> abx and other meds have been reviewed --> ok for ppx if plt >50k w/ either heparin or lovenox --> Transfuse if Plt < 20k and fever, or if Plt < 10k without fever --> trend plts --> 182k-->160-->140-->119-->140k-->200k->529->527k->555k --> asa but not at this time --> meds reviewed and may be 2/2 vanc and amikacin but at this time ok to continue since borderline # Anemia of iron deficiency, on iron now --> Anemia workup has been ordered, rule out gi bleed, shows AID --> No evidence of hemolysis is noted, peripheral smear has been reviewed --> Hgb goal >7. Transfuse prn. --> Iron to continue --> Medications have been reviewed --> hgb 12-->10.7-->11.3-->10.8-->11 # Dysphagia and now s/p nG tube feedings --> as per gi, ng tube feedsings # Respo failure on vent --> per pulm/cc, on sbt, difficult weaning --> recs reviewed # Dehydration --> on ivfs, currently off per renal # Sepsis --> abx per id --> adjust as needed --> reviewed(whitney/vanc)--> ctx/vanc # DVT ppx with heparin sq The timing of this note does not necessarily reflect the time of the patient was seen. GREATLY APPRECIATE CONSULTATION. Subjective Constitutional: Denies: no symptoms, chills, fever, malaise, weakness, other HEENT: Denies: no symptoms, eye pain, blurred vision, tearing, double vision, ear pain, ear discharge, nose pain, nose congestion, throat pain, throat swelling, mouth pain, mouth swelling, other Allergies: Coded Allergies: No Known Allergies (Unverified , 02/04/17) All Systems: reviewed and negative except above Subjective 09/18: is on iron, as well as broad spectrum abx, labs reviewed 09/19: no events to report, angie Robertson rn, tfs ongoing via ng, on vent to wean protocol 09/20: remains intubated, unchanged 09/21: in icu, no major changes, no f/c, no night sweats 09/23: remains in the icu, considering extubation, no f/c noted 09/24: patient unable to be weaned, para was done, daily sbt 09/25: on abx, on vent, taylor, draining well, peg ongong tfs Objective Objective Current Medications Medications (Trade) Dose Ordered Sig/Wayne Route PRN Reason Start Time Stop Time Status Last Admin Dose Admin Acetaminophen (Tylenol) 650 mg Q4H PRN GT Mild Pain/Temp > 100.5 09/23/18 07:15 10/23/18 07:14 Acetylcysteine (Mucomyst) 100 mg Q4HRT N 09/21/18 19:00 10/21/18 18:59 09/25/18 18:48 Albuterol/ Ipratropium (Albuterol/ Ipratropium) 3 ml Q4HRT HHN 09/21/18 19:00 09/26/18 18:59 09/25/18 18:48 Artificial Tears (Akwa-Tears) 1 drop Q4H PRN BOTH EYES Dry Eyes 09/18/18 12:30 10/18/18 12:29 Ascorbic Acid (Vitamin C) 250 mg TWICE A DAY ORAL 09/18/18 18:00 10/18/18 17:59 09/25/18 17:48 Bisacodyl (Dulcolax) 10 mg DAILYPRN PRN RECTAL Constipation 09/14/18 12:45 10/14/18 12:44 Ceftriaxone Sodium 1 gm/ Dextrose 50 ml @ 100 mls/hr Q24H IVPB 09/25/18 21:00 10/02/18 20:59 Chlorhexidine Gluconate (Kamla-Hex 2%) 1 applic DAILY@2000 TOPIC 09/17/18 20:00 10/17/18 19:59 09/24/18 20:57 Dextrose (Dextrose 50%) 25 ml Q30M PRN IV Hypoglycemia 09/14/18 12:45 10/14/18 12:44 Dextrose (Dextrose 50%) 50 ml Q30M PRN IV Hypoglycemia 09/14/18 12:45 10/14/18 12:44 Dextrose/ Electrolytes 1,000 ml @ 50 mls/hr Q20H IV 09/23/18 11:00 10/23/18 10:59 09/25/18 17:49 Diphenhydramine HCl (Benadryl) 25 mg Q6H PRN ORAL Itching/Pruritis 09/14/18 12:45 10/14/18 12:44 Docusate Sodium (Colace) 100 mg TWICE A DAY GT 09/25/18 09:00 10/25/18 08:59 Furosemide (Lasix) 20 mg DAILY GT 09/23/18 09:00 10/22/18 08:59 09/25/18 10:06 Heparin Sodium (Porcine) (Heparin 5000 units/ml) 5,000 units EVERY 12 HOURS SUBQ 09/14/18 21:00 10/14/18 20:59 09/25/18 10:08 Insulin Aspart (NovoLOG) Q6HR SUBQ 09/14/18 16:00 10/14/18 15:59 09/25/18 18:06 Insulin Detemir (Levemir) 12 units BEDTIME SUBQ 09/17/18 21:00 10/17/18 20:59 09/24/18 20:58 Magnesium Hydroxide (Mom) 30 ml HSPRN PRN ORAL Constipation 09/14/18 12:45 10/14/18 12:44 Metoclopramide HCl (Reglan) 10 mg Q8H PRN IVP Nausea & Vomiting 09/17/18 12:30 10/17/18 12:29 Ondansetron HCl (Zofran) 4 mg Q6H PRN IVP Nausea & Vomiting 09/14/18 12:45 10/14/18 12:44 09/17/18 07:41 Pantoprazole (Protonix) 40 mg DAILY IV 09/15/18 09:00 10/15/18 08:59 09/25/18 10:05 Vancomycin HCl (Vanco rx to dose) 1 ea DAILY PRN MISC Per rx protocol 09/14/18 12:45 10/14/18 12:44 Vancomycin HCl/ Dextrose 275 ml @ 137.5 mls/ hr Q24H IVPB 09/23/18 01:00 09/28/18 00:59 09/25/18 01:18 Last 24 Hour Vital Signs Date Time Temp Pulse Resp B/P (MAP) Pulse Ox O2 Delivery O2 Flow Rate FiO2 09/25/18 19:05 72 14 100 Mechanical Ventilator 30 09/25/18 19:00 81 14 126/59 (81) 100 09/25/18 18:50 64 14 100 Mechanical Ventilator 30 09/25/18 18:48 66 14 30 30 09/25/18 18:00 74 14 118/54 (75) 99 09/25/18 17:20 80 14 30 09/25/18 17:00 89 14 129/98 (108) 100 09/25/18 16:00 73 09/25/18 16:00 Mechanical Ventilator 09/25/18 16:00 30 09/25/18 16:00 98.7 76 14 102/56 (71) 100 09/25/18 15:32 75 14 100 Mechanical Ventilator 30 09/25/18 15:27 79 22 30 09/25/18 15:25 78 16 100 Mechanical Ventilator 30 09/25/18 15:00 78 18 145/57 (86) 100 09/25/18 14:00 66 14 118/49 (72) 100 09/25/18 13:00 71 24 126/50 (75) 100 09/25/18 12:59 72 26 30 30 09/25/18 12:00 71 09/25/18 12:00 30 09/25/18 12:00 98.7 80 28 146/55 (85) 100 09/25/18 12:00 Mechanical Ventilator 09/25/18 11:00 73 26 135/48 (77) 100 09/25/18 10:41 75 26 100 Mechanical Ventilator 30 09/25/18 10:38 98 09/25/18 10:38 72 27 30 30 09/25/18 10:32 72 27 100 Mechanical Ventilator 30 09/25/18 10:00 70 28 135/58 (83) 98 09/25/18 09:00 98.9 70 27 126/46 (72) 98 09/25/18 08:44 70 26 30 30 09/25/18 08:00 71 28 141/51 (81) 100 09/25/18 08:00 64 8/13/19 08:00 Mechanical Ventilator 09/25/18 08:00 30 09/25/18 07:46 Mechanical Ventilator 30 09/25/18 07:46 Mechanical Ventilator 30 09/25/18 07:43 66 27 30 09/25/18 07:00 68 22 141/53 (82) 100 09/25/18 06:00 62 15 134/48 (76) 100 09/25/18 05:00 64 15 135/47 (76) 100 09/25/18 04:52 68 14 30 09/25/18 04:00 68 09/25/18 04:00 30 09/25/18 04:00 Mechanical Ventilator 09/25/18 04:00 98.6 61 14 129/107 (114) 100 09/25/18 03:30 76 14 100 Mechanical Ventilator 30 09/25/18 03:21 62 14 100 Mechanical Ventilator 30 09/25/18 03:20 62 15 30 09/25/18 03:00 71 14 138/38 (71) 100 09/25/18 02:00 60 14 128/71 (90) 100 09/25/18 01:00 70 14 126/50 (75) 98 09/25/18 00:55 72 15 30 09/25/18 00:00 30 09/25/18 00:00 Mechanical Ventilator 09/25/18 00:00 70 09/25/18 00:00 98.8 69 14 116/46 (69) 97 09/24/18 23:18 67 14 99 Mechanical Ventilator 30 09/24/18 23:09 70 14 99 Mechanical Ventilator 30 09/24/18 23:08 70 14 30 09/24/18 23:00 62 14 105/46 (65) 98 09/24/18 22:00 65 14 133/58 (83) 98 09/24/18 21:00 66 14 119/47 (71) 98 09/24/18 20:00 98.6 64 14 110/43 (65) 98 09/24/18 20:00 30 09/24/18 20:00 Mechanical Ventilator 09/24/18 20:00 64 09/24/18 19:22 73 14 100 Mechanical Ventilator 30 09/24/18 19:12 63 14 99 Mechanical Ventilator 30 09/24/18 19:12 61 14 30 09/24/18 19:00 66 15 129/51 (77) 99 09/24/18 18:00 66 14 101/43 (62) 98 09/24/18 17:25 60 14 30 09/24/18 17:00 70 14 115/49 (71) 98 09/24/18 16:00 30 09/24/18 16:00 58 09/24/18 16:00 99.2 70 14 116/44 (68) 97 09/24/18 16:00 Mechanical Ventilator 09/24/18 15:38 70 14 100 Mechanical Ventilator 30 09/24/18 15:35 59 14 30 09/24/18 15:30 76 14 100 Mechanical Ventilator 30 09/24/18 15:28 82 14 30 09/24/18 15:00 60 14 117/52 (73) 98 09/24/18 14:00 62 14 116/47 (70) 98 09/24/18 13:12 65 14 30 09/24/18 13:00 68 14 106/42 (63) 99 09/24/18 12:00 Mechanical Ventilator 09/24/18 12:00 66 09/24/18 12:00 30 09/24/18 12:00 98.5 76 14 120/47 (71) 97 09/24/18 11:13 57 14 100 Mechanical Ventilator 30 09/24/18 11:12 56 14 30 09/24/18 11:04 58 14 100 Mechanical Ventilator 30 09/24/18 11:00 57 14 139/55 (83) 100 09/24/18 10:00 58 14 114/51 (72) 99 09/24/18 09:00 71 16 125/52 (76) 97 09/24/18 08:45 70 15 30 09/24/18 08:00 30 09/24/18 08:00 Mechanical Ventilator 09/24/18 08:00 98.5 66 14 125/52 (76) 100 09/24/18 08:00 61 09/24/18 07:00 73 14 100 Mechanical Ventilator 30 09/24/18 07:00 66 14 147/58 (87) 100 09/24/18 06:59 58 14 30 09/24/18 06:52 59 14 98 Mechanical Ventilator 30 09/24/18 06:30 30 09/24/18 06:00 64 14 138/51 (80) 98 09/24/18 05:09 58 14 30 8/12/19 05:00 59 14 127/51 (76) 100 09/24/18 04:00 Mechanical Ventilator 09/24/18 04:00 99.5 73 14 119/49 (72) 100 09/24/18 04:00 80 09/24/18 04:00 72 09/24/18 03:18 88 16 96 Mechanical Ventilator 30 09/24/18 03:03 76 14 94 Mechanical Ventilator 30 09/24/18 03:03 64 14 30 09/24/18 03:00 65 14 122/51 (74) 93 09/24/18 02:00 69 14 104/43 (63) 93 09/24/18 01:00 71 14 127/51 (76) 93 09/24/18 00:55 80 14 30 09/24/18 00:00 Mechanical Ventilator 09/24/18 00:00 77 09/24/18 00:00 99.3 75 14 92/44 (60) 95 09/24/18 00:00 50 09/23/18 23:00 78 14 110/56 (74) 93 09/23/18 22:50 87 14 97 Mechanical Ventilator 30 09/23/18 22:41 76 14 30 09/23/18 22:40 90 14 96 Mechanical Ventilator 30 09/23/18 22:00 78 14 108/53 (71) 92 09/23/18 21:00 73 14 106/46 (66) 90 09/23/18 20:47 80 14 30 Intake and Output 09/24/18 09/25/18 19:00 07:00 Intake Total 1540 ml 1970.0 ml Output Total 1535 ml 1545 ml Balance 5 ml 425.0 ml Intake Free Water 300 ml 300 ml IV Total 700 ml 1070.0 ml Tube Feeding 540 ml 540 ml Other 60 ml Output Urine Total 1535 ml 1545 ml # Bowel Movements 2 2 Labs Test 09/22/18 23:15 09/23/18 07:10 09/23/18 09:40 09/24/18 04:00 Vancomycin Level Trough 11.2 ug/mL (5.0-12.0) White Blood Count 8.7 K/UL (4.8-10.8) 10.3 K/UL (4.8-10.8) Red Blood Count 3.47 M/UL (4.20-5.40) 3.49 M/UL (4.20-5.40) Hemoglobin 10.8 G/DL (12.0-16.0) 11.0 G/DL (12.0-16.0) Hematocrit 33.1 % (37.0-47.0) 33.9 % (37.0-47.0) Mean Corpuscular Volume 95 FL (80-99) 97 FL (80-99) Mean Corpuscular Hemoglobin 31.1 PG (27.0-31.0) 31.6 PG (27.0-31.0) Mean Corpuscular Hemoglobin Concent 32.6 G/DL (32.0-36.0) 32.6 G/DL (32.0-36.0) Red Cell Distribution Width 13.6 % (11.6-14.8) 13.9 % (11.6-14.8) Platelet Count 529 K/UL (150-450) 527 K/UL (150-450) Mean Platelet Volume 6.0 FL (6.5-10.1) 5.7 FL (6.5-10.1) Neutrophils (%) (Auto) 75.2 % (45.0-75.0) 74.2 % (45.0-75.0) Lymphocytes (%) (Auto) 19.1 % (20.0-45.0) 19.3 % (20.0-45.0) Monocytes (%) (Auto) 3.5 % (1.0-10.0) 4.3 % (1.0-10.0) Eosinophils (%) (Auto) 1.9 % (0.0-3.0) 1.7 % (0.0-3.0) Basophils (%) (Auto) 0.4 % (0.0-2.0) 0.6 % (0.0-2.0) Sodium Level 145 MMOL/L (136-145) 140 MMOL/L (136-145) Potassium Level 3.3 MMOL/L (3.5-5.1) 4.2 MMOL/L (3.5-5.1) Chloride Level 110 MMOL/L (98-107) 107 MMOL/L (98-107) Carbon Dioxide Level 27 MMOL/L (21-32) 26 MMOL/L (21-32) Anion Gap 9 mmol/L (5-15) 7 mmol/L (5-15) Blood Urea Nitrogen 9 mg/dL (7-18) 8 mg/dL (7-18) Creatinine 0.8 MG/DL (0.55-1.30) 0.7 MG/DL (0.55-1.30) Estimat Glomerular Filtration Rate mL/min (>60) mL/min (>60) Glucose Level 195 MG/DL (74-106) 217 MG/DL (74-106) Calcium Level 8.9 MG/DL (8.5-10.1) 9.2 MG/DL (8.5-10.1) Magnesium Level 2.0 MG/DL (1.8-2.4) 2.0 MG/DL (1.8-2.4) Arterial Blood pH 7.470 (7.350-7.450) Arterial Blood Partial Pressure CO2 37.6 mmHg (35.0-45.0) Arterial Blood Partial Pressure O2 67.4 mmHg (75.0-100.0) Arterial Blood HCO3 26.8 mmol/L (22.0-26.0) Arterial Blood Oxygen Saturation 93.5 % (95-100) Arterial Blood Base Excess 3.1 (-2-2) Ray Test Positive Test 09/25/18 05:20 White Blood Count 9.3 K/UL (4.8-10.8) Red Blood Count 3.50 M/UL (4.20-5.40) Hemoglobin 11.0 G/DL (12.0-16.0) Hematocrit 35.0 % (37.0-47.0) Mean Corpuscular Volume 100 FL (80-99) Mean Corpuscular Hemoglobin 31.5 PG (27.0-31.0) Mean Corpuscular Hemoglobin Concent 31.5 G/DL (32.0-36.0) Red Cell Distribution Width 14.6 % (11.6-14.8) Platelet Count 525 K/UL (150-450) Mean Platelet Volume 4.3 FL (6.5-10.1) Neutrophils (%) (Auto) 75.8 % (45.0-75.0) Lymphocytes (%) (Auto) 17.2 % (20.0-45.0) Monocytes (%) (Auto) 4.7 % (1.0-10.0) Eosinophils (%) (Auto) 1.5 % (0.0-3.0) Basophils (%) (Auto) 0.8 % (0.0-2.0) Sodium Level 144 MMOL/L (136-145) Potassium Level 4.1 MMOL/L (3.5-5.1) Chloride Level 110 MMOL/L (98-107) Carbon Dioxide Level 29 MMOL/L (21-32) Anion Gap 5 mmol/L (5-15) Blood Urea Nitrogen 10 mg/dL (7-18) Creatinine 0.7 MG/DL (0.55-1.30) Estimat Glomerular Filtration Rate mL/min (>60) Glucose Level 190 MG/DL (74-106) Calcium Level 8.7 MG/DL (8.5-10.1) Magnesium Level 2.0 MG/DL (1.8-2.4) Height (Feet): 5 Height (Inches): 3.00 Weight (Pounds): 123 Objective Physical Exam: Vitals: reviewed General Appearance: NAD HEENT: normocephalic, atraumatic ++ogt Chest: normal breath sounds bilaterally ++ vent Cardiovascular: normal peripheral pulses, normal rate Abdomen: normal bowel sounds, soft, nontender ++ gtube Extremities: normal range of motion Mateo Wei MD Sep 25, 2018 20:26
[2018-09-25] MEDS: cefTRIAXone 1 GM in D5W 50 ML IVPB SCH (20:36)
[2018-09-25] MEDS: Dyna-Hex 2% Top Sol 2oz TOPIC SCH (20:36)
[2018-09-25] MEDS: Levemir Flexpen SUBQ SCH (20:59)
--- NOTE | 2018-09-25 21:25 | NUR ---
NURSE NOTES: Patient temp 99.0 axillary cooling measure provided. Turned and repositioned. Oral care and suctioned. No s/s of hypo/hyperglycemia. Will continue to monitor pt.
--- NOTE | 2018-09-25 22:21 | Surgery Progress Note ---
Surgery Progress Note Subjective Symptoms: other Objective Last 24 Hour Vital Signs Date Time Temp Pulse Resp B/P (MAP) Pulse Ox O2 Delivery O2 Flow Rate FiO2 09/25/18 22:00 63 14 108/49 (68) 99 09/25/18 21:23 70 14 30 30 09/25/18 21:00 74 14 116/48 (70) 98 09/25/18 20:00 68 14 103/53 (70) 98 09/25/18 20:00 30 09/25/18 20:00 Mechanical Ventilator 09/25/18 19:05 72 14 100 Mechanical Ventilator 30 09/25/18 19:00 81 14 126/59 (81) 100 09/25/18 18:50 64 14 100 Mechanical Ventilator 30 09/25/18 18:48 66 14 30 30 09/25/18 18:00 74 14 118/54 (75) 99 09/25/18 17:20 80 14 30 09/25/18 17:00 89 14 129/98 (108) 100 09/25/18 16:00 73 09/25/18 16:00 Mechanical Ventilator 09/25/18 16:00 30 09/25/18 16:00 98.7 76 14 102/56 (71) 100 09/25/18 15:32 75 14 100 Mechanical Ventilator 30 09/25/18 15:27 79 22 30 09/25/18 15:25 78 16 100 Mechanical Ventilator 30 09/25/18 15:00 78 18 145/57 (86) 100 09/25/18 14:00 66 14 118/49 (72) 100 09/25/18 13:00 71 24 126/50 (75) 100 09/25/18 12:59 72 26 30 30 09/25/18 12:00 71 09/25/18 12:00 30 09/25/18 12:00 98.7 80 28 146/55 (85) 100 09/25/18 12:00 Mechanical Ventilator 09/25/18 11:00 73 26 135/48 (77) 100 09/25/18 10:41 75 26 100 Mechanical Ventilator 30 09/25/18 10:38 98 09/25/18 10:38 72 27 30 30 09/25/18 10:32 72 27 100 Mechanical Ventilator 30 09/25/18 10:00 70 28 135/58 (83) 98 09/25/18 09:00 98.9 70 27 126/46 (72) 98 09/25/18 08:44 70 26 30 30 09/25/18 08:00 71 28 141/51 (81) 100 09/25/18 08:00 64 09/25/18 08:00 Mechanical Ventilator 09/25/18 08:00 30 09/25/18 07:46 Mechanical Ventilator 30 09/25/18 07:46 Mechanical Ventilator 30 09/25/18 07:43 66 27 30 09/25/18 07:00 68 22 141/53 (82) 100 09/25/18 06:00 62 15 134/48 (76) 100 09/25/18 05:00 64 15 135/47 (76) 100 09/25/18 04:52 68 14 30 09/25/18 04:00 68 09/25/18 04:00 30 09/25/18 04:00 Mechanical Ventilator 09/25/18 04:00 98.6 61 14 129/107 (114) 100 09/25/18 03:30 76 14 100 Mechanical Ventilator 30 09/25/18 03:21 62 14 100 Mechanical Ventilator 30 09/25/18 03:20 62 15 30 09/25/18 03:00 71 14 138/38 (71) 100 09/25/18 02:00 60 14 128/71 (90) 100 09/25/18 01:00 70 14 126/50 (75) 98 09/25/18 00:55 72 15 30 09/25/18 00:00 30 09/25/18 00:00 Mechanical Ventilator 09/25/18 00:00 70 09/25/18 00:00 98.8 69 14 116/46 (69) 97 09/24/18 23:18 67 14 99 Mechanical Ventilator 30 09/24/18 23:09 70 14 99 Mechanical Ventilator 30 09/24/18 23:08 70 14 30 09/24/18 23:00 62 14 105/46 (65) 98 I&O Intake and Output 09/24/18 09/25/18 18:59 06:59 Intake Total 1480 ml 2030.0 ml Output Total 1475 ml 1595 ml Balance 5 ml 435.0 ml Intake Free Water 300 ml 300 ml IV Total 700 ml 1070.0 ml Tube Feeding 480 ml 600 ml Other 60 ml Output Urine Total 1475 ml 1595 ml # Bowel Movements 2 2 Cardiovascular: RSR Respiratory: decreased breath sounds Abdomen: soft, present bowel sounds Extremities: no cyanosis Laboratory Tests Test 09/25/18 05:20 White Blood Count 9.3 K/UL (4.8-10.8) Red Blood Count 3.50 M/UL (4.20-5.40) L Hemoglobin 11.0 G/DL (12.0-16.0) L Hematocrit 35.0 % (37.0-47.0) L Mean Corpuscular Volume 100 FL (80-99) H Mean Corpuscular Hemoglobin 31.5 PG (27.0-31.0) H Mean Corpuscular Hemoglobin Concent 31.5 G/DL (32.0-36.0) L Red Cell Distribution Width 14.6 % (11.6-14.8) Platelet Count 525 K/UL (150-450) H Mean Platelet Volume 4.3 FL (6.5-10.1) L Neutrophils (%) (Auto) 75.8 % (45.0-75.0) H Lymphocytes (%) (Auto) 17.2 % (20.0-45.0) L Monocytes (%) (Auto) 4.7 % (1.0-10.0) Eosinophils (%) (Auto) 1.5 % (0.0-3.0) Basophils (%) (Auto) 0.8 % (0.0-2.0) Sodium Level 144 MMOL/L (136-145) Potassium Level 4.1 MMOL/L (3.5-5.1) Chloride Level 110 MMOL/L (98-107) H Carbon Dioxide Level 29 MMOL/L (21-32) Anion Gap 5 mmol/L (5-15) Blood Urea Nitrogen 10 mg/dL (7-18) Creatinine 0.7 MG/DL (0.55-1.30) Estimat Glomerular Filtration Rate mL/min (>60) Glucose Level 190 MG/DL (74-106) H Calcium Level 8.7 MG/DL (8.5-10.1) Magnesium Level 2.0 MG/DL (1.8-2.4) Plan Problems: (1) Sepsis Assessment & Plan: 77-year-old female presented to [facility] in distress found to be septic with leukocytosis tachycardia and requiring ventilatory support. Patient's labs noted and significant abnormal. Lactic acidosis. Severe dehydration. Admit to intensive care unit IV fluids Vent support - cont with weaning trial. looks okay for extubation soon IV antibiotics as per infectious disease Trend labs A.m. chest x-ray okay for tube feeds ICU care Leukocytosis improving. Labs improving. US noted wean vent for extubation We will follow with recommendations Thank you for allowing me to participate in patient's care (2) Lactic acid acidosis (3) Upper sacral area unstageable pressure ulcer (4) G tube feedings Assessment & Plan: DAILY ESTIMATED NEEDS: Needs based on Critical care, sepsis, wound, DM 53.6kg 25-32 kcals/kg 7579-6320 total kcals 1.25-2 g protein/kg 67-107 g total protein 25-32ml/kcal mL/kg 0820-8827 total fluid mLs NUTRITION DIAGNOSIS: 1) Swallowing difficulty R/T dysphagia, CVA as evidenced by PEG dependent, now orally intubated. 2) Increased kcal and pro needs r/t sepsis and wound healing as evidenced by elev BG and POC (200-400's), elev WBC (15.7), febrile (Tmax 100.9), elev Na (148), sacral wound/ unstageable per MD. CURRENT TF: Glucerna 1.2 @60 hrs ENTERAL NUTRITION RECOMMENDATIONS: Glucerna 1.2 @55ml/hr x24 hrs + Prosource x1 daily to provide 1320ml, 1584 kcal, 79g + 11g pro, 1063ml free H2O - Maintain Glucerna 1.2 -> Rec to REDUCE RATE to goal of 55ml/hr - Add Prosource x1 daily to better meet est pro needs - HOB over 30 degrees - Flush per MD-> 150q6 for added 600ml free fluid per day (1063ml from TF + 600ml flushes= 1663ml free fluid per day). ------ ADDITIONAL RECOMMENDATIONS: 1) Monitor hydration status 2) Obtain an accurate calibrated bed scale wt 3) Lytes daily on TF/ replete as needed 4) Rec increase hypoglycemic agents for improved BG control 5) Sacral wound: add AYDEE BID via PEG daily + Vit C 250mg BID daily via GT (5) Respiratory failure (6) Ventilator dependence Akhil Jackson Sep 25, 2018 22:21
[2018-09-26] VITALS (24 sets, daily range): BP systolic 96–139; BP diastolic 36–59
[2018-09-26] MEDS: NovoLOG Insulin Flexpen SUBQ SCH ×4 (00:22→17:02)
--- NOTE | 2018-09-26 00:52 | NUR ---
NURSE NOTES: patient vanco trough is 14.7 send message to [facility] pharmacist. will follow up
--- NOTE | 2018-09-26 01:06 | NUR ---
NURSE NOTES: Per [facility] pharmacist continue the same vanco dose noted.
[2018-09-26] MEDS: Vancomycin 1.5gm Premix IVPB SCH (01:14)
--- NOTE | 2018-09-26 03:00 | NUR ---
NURSE NOTES: Noted patient with loose tooth. Oral care and Suctioned for small amount of thick haas secretions and noted some blood clot orally. Held Heparin. Will inform MD in am. Charge nurse aware.No moaning no facial grimaces. Will continue to monitor.
[2018-09-26] MEDS: Albuterol/Ipratropium 3ml neb HHN SCH ×5 (03:17→22:35)
--- NOTE | 2018-09-26 05:00 | NUR ---
NURSE NOTES: Bed bath given tolerated well.
[2018-09-26 05:24] LABS: BASOPHILS % (AUTO) 0.6 % (0.0-2.0); EOSINOPHILS % (AUTO) 1.9 % (0.0-3.0); HEMOGLOBIN 12.1 G/DL (12.0-16.0); LYMPHOCYTES % (AUTO) 22.4 % (20.0-45.0); MEAN CORPUSCULAR VOLUME 96 FL (80-99); NEUTROPHILS % (AUTO) 69.1 % (45.0-75.0); PLATELET COUNT 537 K/UL (150-450); RED BLOOD COUNT 3.85 M/UL (4.20-5.40); RED CELL DISTRIBUTION WIDTH 13.5 % (11.6-14.8); WHITE BLOOD COUNT 8.4 K/UL (4.8-10.8)
--- NOTE | 2018-09-26 05:44 | NUR ---
Pt. remains on mechanical ventilation on AC 14/ VT 500/ peep 5/ FiO2 .30 wth a size 7 ETT secured at the 22 cm griselda. Suctioned for small amount of thick haas secretions through ETT and some sue blood orally with some blood clots, loose tooth noted RN Leatha aware. Pt. will wean in am as tolerated. Will continue to monitor.
[2018-09-26 05:49] LABS: ALANINE AMINOTRANSFERASE 9 U/L (12-78); ALBUMIN 1.7 G/DL (3.4-5.0); ALBUMIN/GLOBULIN RATIO 0.3 (1.0-2.7); ALKALINE PHOSPHATASE 93 U/L (46-116); ANION GAP 7 mmol/L (5-15); ASPARTATE AMINO TRANSFERASE 17 U/L (15-37); BILIRUBIN,TOTAL 0.3 MG/DL (0.2-1.0); BLOOD UREA NITROGEN 7 mg/dL (7-18); CALCIUM 9.1 MG/DL (8.5-10.1); CARBON DIOXIDE 26 MMOL/L (21-32); CHLORIDE 103 MMOL/L (98-107); CREATININE 0.6 MG/DL (0.55-1.30); PHOSPHORUS 2.5 MG/DL (2.5-4.9); POTASSIUM 3.8 MMOL/L (3.5-5.1); SODIUM 135 MMOL/L (136-145)
--- NOTE | 2018-09-26 07:10 | NUR ---
RESPIRATORY NOTE: Received patient on ACVC R 14, VT 500, FiO2 30%, PEEP +5. patient is currently intubated with 7.0 ETT at 2 cm lip line. Suctioned with small amount of clear secretions through ETT, red blood small amount of secretions through oral. Vent plugged into red outlet. Alarms are on and audible. Will continue to monitor.
--- NOTE | 2018-09-26 07:20 | NUR ---
HAND-OFF: Report given to FELIX Casarez.
--- NOTE | 2018-09-26 07:30 | NUR ---
NURSE NOTES: Received pt from FELIX Zhang. patient asleep, easily arousable, unable to follow commands. orally intubated ETT size 7.0, 22cm at lip line. Vent settings: AC 14, TV500, FIO2 40%, PEEP 5, oxygen saturation 99%. No acute distress noted. Sinus rhythm noted on athletic monitor. G-tube intact and patent, tube feeding has been held for weaning and possible extubation today. HOB kept elevated. Left upper arm PICC intact, running D51/2NS with 20meq KCL @50ml/hr. Nunez cath intact, draining urine by gravity. Patient on P200 mattress for wound care. Bed in lowest position, locked, side rails upx3. Bed alarm on. Will continue to monitor.
--- NOTE | 2018-09-26 08:20 | NUR ---
RESPIRATORY NOTE: Placed patient on PS +8, PEEP +[address] Swift's order at 0820am. Patient is tolerating weaning well. Leak test 215, RSBI 78. Will continue to monitor.
[2018-09-26] MEDS: Pantoprazole Inj IV SCH (08:23)
[2018-09-26] MEDS: Ascorbic Acid 500mg tab ORAL SCH ×2 (08:24→17:01)
[2018-09-26] MEDS: Docusate 100mg tablet GT SCH ×2 (08:24→17:01)
[2018-09-26] MEDS: Heparin 5000 units/ml inj SUBQ SCH ×2 (08:29→20:01)
--- NOTE | 2018-09-26 08:30 | NUR ---
NURSE NOTES: Patient is awake, opens eyes spontaneously, able to make eye contacts at times but unable to track and unable to follow simple commands. patient placed on CPAP by RT for weaning.
--- NOTE | 2018-09-26 08:35 | NUR ---
NURSE NOTES: patient noted with blood from teeth/gum. Dr. Wei at bedside. Notified MD. Francisco to hold heparin sq until bleeding stops.
--- NOTE | 2018-09-26 09:30 | NUR ---
NURSE NOTES: Dr. Jerez at bedside. made aware of loose teeth and bleeding. precaution with oral care and suctioning.
--- NOTE | 2018-09-26 09:59 | General Progress Note ---
Assessment/Plan Status: progressing Assessment/Plan: Assessment/Plan Status: unchanged Assessment/Plan: 77 y/o F with acute hypoxemic respiratory failure and sepsis admitted to ICU # Acute hypoxemic respiratory failur suspect very low prognosis given neurologic status, family does not want tracheostomy and she is not tolerating weaning trials - ICU management by vp design appreciated. - Bioethics consult requested. FULL CODE per family and not able to safely extubate. TODAY, the patient is on CPAP trial and NIF score is low. ABG pending and ICU decision for possible extubation attempt. - Serial ABG and CXR as needed. 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 - Nephrology follow up appreciated. 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 - R gaze preference noted. - Awake today and moves her R side # Hypertension - Monitor and resume home medications not needed now due to hypotension. # History of dementia - Supportive care - SW to attempt to find family members # DVT and GI ppx # FULL CODE by records. - CM / SW follow up for family is needed. Bioethics consult was request. Subjective ROS Limited/Unobtainable: Yes Allergies: Coded Allergies: No Known Allergies (Unverified , 02/04/17) All Systems: reviewed and negative except above Subjective Mildly responsive, intubated, opens eyes spontaneously but is not following commands today. Objective Last 24 Hour Vital Signs Date Time Temp Pulse Resp B/P (MAP) Pulse Ox O2 Delivery O2 Flow Rate FiO2 09/26/18 09:00 73 22 137/56 (83) 99 09/26/18 08:20 75 23 30 30 09/26/18 08:00 30 09/26/18 08:00 61 09/26/18 08:00 98.7 64 14 134/48 (76) 100 09/26/18 08:00 Mechanical Ventilator 09/26/18 07:21 68 14 100 Mechanical Ventilator 30 09/26/18 07:09 59 14 100 Mechanical Ventilator 30 09/26/18 07:09 59 14 30 09/26/18 07:00 59 14 121/47 (71) 100 09/26/18 06:00 67 14 118/43 (68) 100 09/26/18 05:14 61 14 30 30 09/26/18 05:00 60 14 118/43 (68) 100 09/26/18 04:00 74 09/26/18 04:00 99.0 76 13 139/50 (79) 100 09/26/18 04:00 Mechanical Ventilator 09/26/18 04:00 30 09/26/18 03:30 66 14 100 Mechanical Ventilator 30 09/26/18 03:16 69 15 100 Mechanical Ventilator 30 09/26/18 03:15 69 15 30 30 09/26/18 03:00 59 14 96/36 (56) 100 09/26/18 02:00 67 14 97/38 (57) 100 09/26/18 01:20 66 14 30 30 09/26/18 01:00 69 14 124/46 (72) 98 09/26/18 00:00 70 09/26/18 00:00 30 09/26/18 00:00 Mechanical Ventilator 09/26/18 00:00 98.6 62 14 111/53 (72) 100 09/25/18 23:17 68 14 100 Mechanical Ventilator 30 09/25/18 23:06 69 14 96 Mechanical Ventilator 30 09/25/18 23:04 69 14 30 30 09/25/18 23:00 70 14 130/56 (80) 98 09/25/18 22:00 63 14 108/49 (68) 99 09/25/18 21:23 70 14 30 30 09/25/18 21:00 74 14 116/48 (70) 98 09/25/18 20:00 67 09/25/18 20:00 99.0 68 14 103/53 (70) 98 09/25/18 20:00 30 09/25/18 20:00 Mechanical Ventilator 09/25/18 19:05 72 14 100 Mechanical Ventilator 30 09/25/18 19:00 81 14 126/59 (81) 100 09/25/18 18:50 64 14 100 Mechanical Ventilator 30 09/25/18 18:48 66 14 30 30 09/25/18 18:00 74 14 118/54 (75) 99 09/25/18 17:20 80 14 30 09/25/18 17:00 89 14 129/98 (108) 100 09/25/18 16:00 73 09/25/18 16:00 Mechanical Ventilator 09/25/18 16:00 30 09/25/18 16:00 98.7 76 14 102/56 (71) 100 09/25/18 15:32 75 14 100 Mechanical Ventilator 30 09/25/18 15:27 79 22 30 09/25/18 15:25 78 16 100 Mechanical Ventilator 30 09/25/18 15:00 78 18 145/57 (86) 100 09/25/18 14:00 66 14 118/49 (72) 100 09/25/18 13:00 71 24 126/50 (75) 100 09/25/18 12:59 72 26 30 30 09/25/18 12:00 71 09/25/18 12:00 30 09/25/18 12:00 98.7 80 28 146/55 (85) 100 09/25/18 12:00 Mechanical Ventilator 09/25/18 11:00 73 26 135/48 (77) 100 09/25/18 10:41 75 26 100 Mechanical Ventilator 30 09/25/18 10:38 98 09/25/18 10:38 72 27 30 30 09/25/18 10:32 72 27 100 Mechanical Ventilator 30 09/25/18 10:00 70 28 135/58 (83) 98 Intake and Output 09/25/18 09/26/18 19:00 07:00 Intake Total 1450 ml 1515.0 ml Output Total 1350 ml 1415 ml Balance 100 ml 100.0 ml Intake Free Water 330 ml 150 ml IV Total 700 ml 925.0 ml Tube Feeding 420 ml 440 ml Output Urine Total 1350 ml 1415 ml # Bowel Movements 4 Laboratory Tests 09/26/18 00:10: Vancomycin Level Trough 14.7H 09/26/18 04:10: White Blood Count 8.4, Red Blood Count 3.85L, Hemoglobin 12.1, Hematocrit 37.0, Mean Corpuscular Volume 96, Mean Corpuscular Hemoglobin 31.3H, Mean Corpuscular Hemoglobin Concent 32.6, Red Cell Distribution Width 13.5, Platelet Count 537H, Mean Platelet Volume 5.8L, Neutrophils (%) (Auto) 69.1, Lymphocytes (%) (Auto) 22.4, Monocytes (%) (Auto) 6.0, Eosinophils (%) (Auto) 1.9, Basophils (%) (Auto ) 0.6, Sodium Level 135L, Potassium Level 3.8, Chloride Level 103, Carbon Dioxide Level 26, Anion Gap 7, Blood Urea Nitrogen 7, Creatinine 0.6, Estimat Glomerular Filtration Rate , Glucose Level 171H, Uric Acid 3.4, Calcium Level 9.1, Phosphorus Level 2.5, Magnesium Level 1.9, Total Bilirubin 0.3, Aspartate Amino Transf (AST/SGOT) 17, Alanine Aminotransferase (ALT/SGPT) 9L, Alkaline Phosphatase 93, C-Reactive Protein, Quantitative 1.3H, Pro-B-Type Natriuretic Peptide 212H, Total Protein 6.9, Albumin 1.7L, Globulin 5.2, Albumin/Globulin Ratio 0.3L Height (Feet): 5 Height (Inches): 3.00 Weight (Pounds): 123 General Appearance: moderate distress EENT: PERRL/EOMI Neck: non-tender Cardiovascular: normal rate Respiratory/Chest: lungs clear Abdomen: non tender Neurologic: outer diameter grinder tool II-XII grossly normal, motor weakness Geovanny Jerez MD Sep 26, 2018 09:59
--- NOTE | 2018-09-26 11:00 | NUR ---
NURSE NOTES: patient's brother, Ryan, at bedside and spoke social studies teacher, arnav, and charge nurse, mari regarding code status. Per pt's brother, he will call patient's son and family. Family members will come and make decision on changing code status to DNR/DNI later today. Dr. Swift made aware of ABG results, NIF -8.6, RSBI 78.0. Per MD, place the patient back on AC mode and hold tube feeding for extubation. To notify Dr. Swift when family members are at bedside. RT made aware.
--- NOTE | 2018-09-26 11:03 | Pulmonolgy Critical Care Note ---
Critical Care - Asmt/Plan Assessment/Plan: Pulmonary CCM Progress Note Critical Care - Asmt/Plan Problems: (1) Endotracheally intubated (2) Ventilator dependence, tolerating CPAP trials today - awaiting family decision on DNR/DNI later today, will extubate later today (3) Sepsis, on pressors PRN - antibiotics changed as febrile (4) Pneumonia (5) Electrolyte imbalance (6) Dehydration (7) Altered mental status (8) Hypernatremia (9) Respiratory failure (10) Lactic acid acidosis (11) H/O: CVA (cerebrovascular accident) (12) G tube feedings (13) KEL (acute kidney injury) Respiratory: monitor respiratory rate, adjust FIO2, ABG, other - HHN's, pulmonary hygiene, wean an tolerated, family refusing trach Cardiac: continue to monitor HR/BP Renal: keep negative Infectious Disease: check cultures, continue antibiotics per ID Gastrointestinal: enteral feeding Endocrine: monitor blood sugar, continue sliding scale insulin Hematologic: monitor H/H Neurologic: keep patient comfortable - monitor MS, consider neuro eval and EEG Prophylaxis: Protonix, Heparin Disposition: keep in ICU Time Spent (Minutes): 40 Notes Reviewed: carpet cleaner, renal, ID, other - ERMD Discussed with: nurses, consultants, other - FC Critical Care - Objective Vital Signs Noted Status: sedated - intubated Condition: critical HEENT: atraumatic, normocephalic, other - ETT OGT weak gag Lungs: rhonchi Heart: HR/BP stable Abdomen: soft, non-tender, active bowel sounds, feeding tube Extremities: no C/C/E Micro: Microbiology Date/Time Source Procedure Growth Status 09/14/18 09:00 Rectum Received Critical Care - Subjective ROS Limited/Unobtainable: Yes Interval Events: 77 F NHR h/o dementia, CVA, GT, HTN, HL remains on ACVC, not tolerating PS Na 167 Cr 1.7 LA elevated + hemoconcentration No gag in ER + faint gag now + F no C no further hx obtainable Condition: critical IV Access: peripheral - x2 EKG Rhythm: Sinus Rhythm FI02: 60 Vent Support Breath Rate: 14 Vent Support Mode: AC Vent Tidal Volume: 500 Sputum Amount: Small PEEP: 5.0 PIP: 23 Secretions: scant thick Subjective: ARLETTE CXR: L RC inf, small L eff, ETT ET-Tube: 7.0 ET Position: 22 Labs: Laboratory Tests noted Critical Care - Objective Last 24 Hour Vital Signs Date Time Temp Pulse Resp B/P (MAP) Pulse Ox O2 Delivery O2 Flow Rate FiO2 09/26/18 10:26 99 09/26/18 10:00 67 22 133/57 (82) 99 09/26/18 09:00 73 22 137/56 (83) 99 09/26/18 08:20 75 23 30 30 09/26/18 08:00 30 09/26/18 08:00 61 09/26/18 08:00 98.7 64 14 134/48 (76) 100 09/26/18 08:00 Mechanical Ventilator 09/26/18 07:21 68 14 100 Mechanical Ventilator 30 09/26/18 07:09 59 14 100 Mechanical Ventilator 30 09/26/18 07:09 59 14 30 09/26/18 07:00 59 14 121/47 (71) 100 09/26/18 06:00 67 14 118/43 (68) 100 09/26/18 05:14 61 14 30 30 09/26/18 05:00 60 14 118/43 (68) 100 09/26/18 04:00 74 09/26/18 04:00 99.0 76 13 139/50 (79) 100 09/26/18 04:00 Mechanical Ventilator 09/26/18 04:00 30 09/26/18 03:30 66 14 100 Mechanical Ventilator 30 09/26/18 03:16 69 15 100 Mechanical Ventilator 30 09/26/18 03:15 69 15 30 30 09/26/18 03:00 59 14 96/36 (56) 100 09/26/18 02:00 67 14 97/38 (57) 100 09/26/18 01:20 66 14 30 30 09/26/18 01:00 69 14 124/46 (72) 98 09/26/18 00:00 70 09/26/18 00:00 30 09/26/18 00:00 Mechanical Ventilator 09/26/18 00:00 98.6 62 14 111/53 (72) 100 09/25/18 23:17 68 14 100 Mechanical Ventilator 30 09/25/18 23:06 69 14 96 Mechanical Ventilator 30 09/25/18 23:04 69 14 30 30 09/25/18 23:00 70 14 130/56 (80) 98 09/25/18 22:00 63 14 108/49 (68) 99 09/25/18 21:23 70 14 30 30 09/25/18 21:00 74 14 116/48 (70) 98 09/25/18 20:00 67 09/25/18 20:00 99.0 68 14 103/53 (70) 98 09/25/18 20:00 30 09/25/18 20:00 Mechanical Ventilator 09/25/18 19:05 72 14 100 Mechanical Ventilator 30 09/25/18 19:00 81 14 126/59 (81) 100 09/25/18 18:50 64 14 100 Mechanical Ventilator 30 09/25/18 18:48 66 14 30 30 09/25/18 18:00 74 14 118/54 (75) 99 09/25/18 17:20 80 14 30 09/25/18 17:00 89 14 129/98 (108) 100 09/25/18 16:00 73 09/25/18 16:00 Mechanical Ventilator 09/25/18 16:00 30 09/25/18 16:00 98.7 76 14 102/56 (71) 100 09/25/18 15:32 75 14 100 Mechanical Ventilator 30 09/25/18 15:27 79 22 30 09/25/18 15:25 78 16 100 Mechanical Ventilator 30 09/25/18 15:00 78 18 145/57 (86) 100 09/25/18 14:00 66 14 118/49 (72) 100 09/25/18 13:00 71 24 126/50 (75) 100 09/25/18 12:59 72 26 30 30 09/25/18 12:00 71 09/25/18 12:00 30 09/25/18 12:00 98.7 80 28 146/55 (85) 100 09/25/18 12:00 Mechanical Ventilator 09/25/18 11:00 73 26 135/48 (77) 100 Accucheck: 170 Critical Care - Subjective ROS Limited/Unobtainable: No FI02: 30 Vent Support Breath Rate: 14 Vent Support Mode: AC Vent Tidal Volume: 500 Sputum Amount: Moderate PEEP: 5.0 PIP: 10 Tube Feeding Amount: 55 I&O: Intake and Output 09/25/18 09/26/18 19:00 07:00 Intake Total 1450 ml 1515.0 ml Output Total 1350 ml 1415 ml Balance 100 ml 100.0 ml Intake Free Water 330 ml 150 ml IV Total 700 ml 925.0 ml Tube Feeding 420 ml 440 ml Output Urine Total 1350 ml 1415 ml # Bowel Movements 4 ET-Tube: 7.0 ET Position: 22 Marcelo Swift MD Sep 26, 2018 11:03
--- NOTE | 2018-09-26 11:05 | NUR ---
SS note This Sw met with brother, Ryan Archibald (and ICU shake cutter, Li) who has decided to terminally extubate the patient. Brother aware patient will not be able to wean off the vent, will need interior paneler artificial breathing methods (which would not support quality of life for patient in the intermediate). Brother explains son and family will need to visit patient (possibly today), prior to the terminal extubation.
--- NOTE | 2018-09-26 11:18 | GI Progress Note ---
Assessment/Plan Problems: (1) DM (diabetes mellitus) ICD Codes: E11.9 - Type 2 diabetes mellitus without complications SNOMED: 58723911 (2) Dehydration ICD Codes: E86.0 - Dehydration SNOMED: 08295452 (3) G tube feedings ICD Codes: Z93.1 - Gastrostomy status SNOMED: 671328986, 069213795, 902384118 (4) Electrolyte imbalance ICD Codes: E87.8 - Other disorders of electrolyte and fluid balance, not elsewhere classified SNOMED: 788085033 (5) Sepsis ICD Codes: A41.9 - Sepsis, unspecified organism SNOMED: 15687898 Status: not improved, unchanged Status Narrative Discussed with Dr. Brown. Assessment/Plan GTF>> on hold for possible extubation abx per ID abd us>> neg cont bowel regimen ppi follow labs The patient was seen and examined at bedside and all new and available data was reviewed in the patients chart. I agree with the above findings, impression and plan. (Patient seen earlier today. Signature stamp does not reflect patient encounter time.). - Ovi Brown MD Subjective Subjective limited Objective Last 24 Hour Vital Signs Date Time Temp Pulse Resp B/P (MAP) Pulse Ox O2 Delivery O2 Flow Rate FiO2 09/26/18 11:09 66 14 100 Mechanical Ventilator 30 09/26/18 11:04 68 19 30 30 09/26/18 11:00 67 21 134/50 (78) 100 09/26/18 10:26 99 09/26/18 10:00 67 22 133/57 (82) 99 09/26/18 09:00 73 22 137/56 (83) 99 09/26/18 08:20 75 23 30 30 09/26/18 08:00 30 09/26/18 08:00 61 09/26/18 08:00 98.7 64 14 134/48 (76) 100 09/26/18 08:00 Mechanical Ventilator 09/26/18 07:21 68 14 100 Mechanical Ventilator 30 09/26/18 07:09 59 14 100 Mechanical Ventilator 30 09/26/18 07:09 59 14 30 09/26/18 07:00 59 14 121/47 (71) 100 09/26/18 06:00 67 14 118/43 (68) 100 09/26/18 05:14 61 14 30 30 09/26/18 05:00 60 14 118/43 (68) 100 09/26/18 04:00 74 09/26/18 04:00 99.0 76 13 139/50 (79) 100 09/26/18 04:00 Mechanical Ventilator 09/26/18 04:00 30 09/26/18 03:30 66 14 100 Mechanical Ventilator 30 09/26/18 03:16 69 15 100 Mechanical Ventilator 30 09/26/18 03:15 69 15 30 30 09/26/18 03:00 59 14 96/36 (56) 100 09/26/18 02:00 67 14 97/38 (57) 100 09/26/18 01:20 66 14 30 30 09/26/18 01:00 69 14 124/46 (72) 98 09/26/18 00:00 70 09/26/18 00:00 30 09/26/18 00:00 Mechanical Ventilator 09/26/18 00:00 98.6 62 14 111/53 (72) 100 09/25/18 23:17 68 14 100 Mechanical Ventilator 30 09/25/18 23:06 69 14 96 Mechanical Ventilator 30 09/25/18 23:04 69 14 30 30 09/25/18 23:00 70 14 130/56 (80) 98 09/25/18 22:00 63 14 108/49 (68) 99 09/25/18 21:23 70 14 30 30 09/25/18 21:00 74 14 116/48 (70) 98 09/25/18 20:00 67 09/25/18 20:00 99.0 68 14 103/53 (70) 98 09/25/18 20:00 30 09/25/18 20:00 Mechanical Ventilator 09/25/18 19:05 72 14 100 Mechanical Ventilator 30 09/25/18 19:00 81 14 126/59 (81) 100 09/25/18 18:50 64 14 100 Mechanical Ventilator 30 09/25/18 18:48 66 14 30 30 09/25/18 18:00 74 14 118/54 (75) 99 09/25/18 17:20 80 14 30 09/25/18 17:00 89 14 129/98 (108) 100 09/25/18 16:00 73 09/25/18 16:00 Mechanical Ventilator 09/25/18 16:00 30 09/25/18 16:00 98.7 76 14 102/56 (71) 100 09/25/18 15:32 75 14 100 Mechanical Ventilator 30 09/25/18 15:27 79 22 30 09/25/18 15:25 78 16 100 Mechanical Ventilator 30 09/25/18 15:00 78 18 145/57 (86) 100 09/25/18 14:00 66 14 118/49 (72) 100 09/25/18 13:00 71 24 126/50 (75) 100 09/25/18 12:59 72 26 30 30 09/25/18 12:00 71 09/25/18 12:00 30 09/25/18 12:00 98.7 80 28 146/55 (85) 100 09/25/18 12:00 Mechanical Ventilator Intake and Output 09/25/18 09/26/18 19:00 07:00 Intake Total 1450 ml 1515.0 ml Output Total 1350 ml 1415 ml Balance 100 ml 100.0 ml Intake Free Water 330 ml 150 ml IV Total 700 ml 925.0 ml Tube Feeding 420 ml 440 ml Output Urine Total 1350 ml 1415 ml # Bowel Movements 4 Laboratory Tests Test 09/26/18 00:10 09/26/18 04:10 09/26/18 10:15 Vancomycin Level Trough 14.7 ug/mL (5.0-12.0) H White Blood Count 8.4 K/UL (4.8-10.8) Red Blood Count 3.85 M/UL (4.20-5.40) L Hemoglobin 12.1 G/DL (12.0-16.0) Hematocrit 37.0 % (37.0-47.0) Mean Corpuscular Volume 96 FL (80-99) Mean Corpuscular Hemoglobin 31.3 PG (27.0-31.0) H Mean Corpuscular Hemoglobin Concent 32.6 G/DL (32.0-36.0) Red Cell Distribution Width 13.5 % (11.6-14.8) Platelet Count 537 K/UL (150-450) H Mean Platelet Volume 5.8 FL (6.5-10.1) L Neutrophils (%) (Auto) 69.1 % (45.0-75.0) Lymphocytes (%) (Auto) 22.4 % (20.0-45.0) Monocytes (%) (Auto) 6.0 % (1.0-10.0) Eosinophils (%) (Auto) 1.9 % (0.0-3.0) Basophils (%) (Auto) 0.6 % (0.0-2.0) Sodium Level 135 MMOL/L (136-145) L Potassium Level 3.8 MMOL/L (3.5-5.1) Chloride Level 103 MMOL/L (98-107) Carbon Dioxide Level 26 MMOL/L (21-32) Anion Gap 7 mmol/L (5-15) Blood Urea Nitrogen 7 mg/dL (7-18) Creatinine 0.6 MG/DL (0.55-1.30) Estimat Glomerular Filtration Rate mL/min (>60) Glucose Level 171 MG/DL (74-106) H Uric Acid 3.4 MG/DL (2.6-7.2) Calcium Level 9.1 MG/DL (8.5-10.1) Phosphorus Level 2.5 MG/DL (2.5-4.9) Magnesium Level 1.9 MG/DL (1.8-2.4) Total Bilirubin 0.3 MG/DL (0.2-1.0) Aspartate Amino Transf (AST/SGOT) 17 U/L (15-37) Alanine Aminotransferase (ALT/SGPT) 9 U/L (12-78) L Alkaline Phosphatase 93 U/L (46-116) C-Reactive Protein, Quantitative 1.3 mg/dL (0.00-0.90) H Pro-B-Type Natriuretic Peptide 212 pg/mL (0-125) H Total Protein 6.9 G/DL (6.4-8.2) Albumin 1.7 G/DL (3.4-5.0) L Globulin 5.2 g/dL Albumin/Globulin Ratio 0.3 (1.0-2.7) L Arterial Blood pH 7.482 (7.350-7.450) Arterial Blood Partial Pressure CO2 29.0 mmHg (35.0-45.0) L Arterial Blood Partial Pressure O2 99.5 mmHg (75.0-100.0) Arterial Blood HCO3 21.2 mmol/L (22.0-26.0) L Arterial Blood Oxygen Saturation 97.5 % (95-100) Arterial Blood Base Excess -1.3 (-2-2) Ray Test Positive Height (Feet): 5 Height (Inches): 3.00 Weight (Pounds): 123 General Appearance: no apparent distress Cardiovascular: normal rate Respiratory/Chest: normal breath sounds, no respiratory distress Abdominal Exam: normal bowel sounds, non tender, soft Extremities: non-tender Valente Bethea NP Sep 26, 2018 11:18
--- NOTE | 2018-09-26 12:00 | NUR ---
NURSE NOTES: All wound dressings changed by wound care nurse. Patient was turned and repositioned. patient tolerated well.
--- NOTE | 2018-09-26 12:02 | Nephrology Progress Note ---
Assessment/Plan Problem List: (1) KEL (acute kidney injury) (2) Respiratory failure (3) Dehydration (4) Electrolyte imbalance (5) G tube feedings (6) Hypokalemia (7) CVA, old, hemiparesis (8) DM (diabetes mellitus) Plan failing weaning- being tried again today antibiotics Pulm support correct lytes BS and BP check and monitor per consultants Subjective ROS Limited/Unobtainable: Yes Objective Objective Last 24 Hour Vital Signs Date Time Temp Pulse Resp B/P (MAP) Pulse Ox O2 Delivery O2 Flow Rate FiO2 09/26/18 11:23 65 14 100 Mechanical Ventilator 30 09/26/18 11:09 66 14 100 Mechanical Ventilator 30 09/26/18 11:04 68 19 30 30 09/26/18 11:00 67 21 134/50 (78) 100 09/26/18 10:26 99 09/26/18 10:00 67 22 133/57 (82) 99 09/26/18 09:00 73 22 137/56 (83) 99 09/26/18 08:20 75 23 30 30 09/26/18 08:00 30 09/26/18 08:00 61 09/26/18 08:00 98.7 64 14 134/48 (76) 100 09/26/18 08:00 Mechanical Ventilator 09/26/18 07:21 68 14 100 Mechanical Ventilator 30 09/26/18 07:09 59 14 100 Mechanical Ventilator 30 09/26/18 07:09 59 14 30 09/26/18 07:00 59 14 121/47 (71) 100 09/26/18 06:00 67 14 118/43 (68) 100 09/26/18 05:14 61 14 30 30 09/26/18 05:00 60 14 118/43 (68) 100 09/26/18 04:00 74 09/26/18 04:00 99.0 76 13 139/50 (79) 100 09/26/18 04:00 Mechanical Ventilator 09/26/18 04:00 30 09/26/18 03:30 66 14 100 Mechanical Ventilator 30 09/26/18 03:16 69 15 100 Mechanical Ventilator 30 09/26/18 03:15 69 15 30 30 09/26/18 03:00 59 14 96/36 (56) 100 09/26/18 02:00 67 14 97/38 (57) 100 09/26/18 01:20 66 14 30 30 09/26/18 01:00 69 14 124/46 (72) 98 09/26/18 00:00 70 09/26/18 00:00 30 09/26/18 00:00 Mechanical Ventilator 09/26/18 00:00 98.6 62 14 111/53 (72) 100 09/25/18 23:17 68 14 100 Mechanical Ventilator 30 09/25/18 23:06 69 14 96 Mechanical Ventilator 30 09/25/18 23:04 69 14 30 30 09/25/18 23:00 70 14 130/56 (80) 98 09/25/18 22:00 63 14 108/49 (68) 99 09/25/18 21:23 70 14 30 30 09/25/18 21:00 74 14 116/48 (70) 98 09/25/18 20:00 67 09/25/18 20:00 99.0 68 14 103/53 (70) 98 09/25/18 20:00 30 09/25/18 20:00 Mechanical Ventilator 09/25/18 19:05 72 14 100 Mechanical Ventilator 30 09/25/18 19:00 81 14 126/59 (81) 100 09/25/18 18:50 64 14 100 Mechanical Ventilator 30 09/25/18 18:48 66 14 30 30 09/25/18 18:00 74 14 118/54 (75) 99 09/25/18 17:20 80 14 30 09/25/18 17:00 89 14 129/98 (108) 100 09/25/18 16:00 73 09/25/18 16:00 Mechanical Ventilator 09/25/18 16:00 30 09/25/18 16:00 98.7 76 14 102/56 (71) 100 09/25/18 15:32 75 14 100 Mechanical Ventilator 30 09/25/18 15:27 79 22 30 09/25/18 15:25 78 16 100 Mechanical Ventilator 30 09/25/18 15:00 78 18 145/57 (86) 100 09/25/18 14:00 66 14 118/49 (72) 100 09/25/18 13:00 71 24 126/50 (75) 100 09/25/18 12:59 72 26 30 30 09/25/18 12:00 71 8/13/19 12:00 30 09/25/18 12:00 98.7 80 28 146/55 (85) 100 09/25/18 12:00 Mechanical Ventilator Intake and Output 09/25/18 09/26/18 19:00 07:00 Intake Total 1450 ml 1515.0 ml Output Total 1350 ml 1415 ml Balance 100 ml 100.0 ml Intake Free Water 330 ml 150 ml IV Total 700 ml 925.0 ml Tube Feeding 420 ml 440 ml Output Urine Total 1350 ml 1415 ml # Bowel Movements 4 Laboratory Tests 09/26/18 00:10: Vancomycin Level Trough 14.7H 09/26/18 04:10: White Blood Count 8.4, Red Blood Count 3.85L, Hemoglobin 12.1, Hematocrit 37.0, Mean Corpuscular Volume 96, Mean Corpuscular Hemoglobin 31.3H, Mean Corpuscular Hemoglobin Concent 32.6, Red Cell Distribution Width 13.5, Platelet Count 537H, Mean Platelet Volume 5.8L, Neutrophils (%) (Auto) 69.1, Lymphocytes (%) (Auto) 22.4, Monocytes (%) (Auto) 6.0, Eosinophils (%) (Auto) 1.9, Basophils (%) (Auto ) 0.6, Sodium Level 135L, Potassium Level 3.8, Chloride Level 103, Carbon Dioxide Level 26, Anion Gap 7, Blood Urea Nitrogen 7, Creatinine 0.6, Estimat Glomerular Filtration Rate , Glucose Level 171H, Uric Acid 3.4, Calcium Level 9.1, Phosphorus Level 2.5, Magnesium Level 1.9, Total Bilirubin 0.3, Aspartate Amino Transf (AST/SGOT) 17, Alanine Aminotransferase (ALT/SGPT) 9L, Alkaline Phosphatase 93, C-Reactive Protein, Quantitative 1.3H, Pro-B-Type Natriuretic Peptide 212H, Total Protein 6.9, Albumin 1.7L, Globulin 5.2, Albumin/Globulin Ratio 0.3L 09/26/18 10:15: Arterial Blood pH 7.482H, Arterial Blood Partial Pressure CO2 29.0L, Arterial Blood Partial Pressure O2 99.5, Arterial Blood HCO3 21.2L, Arterial Blood Oxygen Saturation 97.5, Arterial Blood Base Excess -1.3, Ray Test Positive Height (Feet): 5 Height (Inches): 3.00 Weight (Pounds): 123 General Appearance: no apparent distress Cardiovascular: normal rate Respiratory/Chest: decreased breath sounds Abdomen: distended Objective no change Dwayne Vernon MD Sep 26, 2018 12:02
--- NOTE | 2018-09-26 12:49 | NUR ---
[employer] SPECIALISTQUANTITATIVE ANALYST MARKETING SI: RESP FAILURE ETT/VENT SUPPORT T. 98.6 HR 67 RR 13 B/P 117/54 AC 14 TV 500 FIO2 30 PEEP 5 PH 7.48 PCO2 29.0 PO2 99.5 VBP147.1 O2 SAT 97.5 BNP 212 IS: CEFTRIAXONE IV IVF D5KCL @ 50ML/HR VANCO IV PROTONIX IV ICU STATUS
--- NOTE | 2018-09-26 14:18 | Hematology/Onc Progress Note ---
Assessment/Plan Assessment/Plan Assessment and Recs: # Thrombocytopenia --> now with thrombocytosis - potential causes multifactorial , evaluate liver and viral etiologies to begin, also could be related to underlying medications patient has received. --> Hep panel and HIV show neg results --> US abd shows no cirrhosis or hsm --> Peripheral smear ordered to evaluate for blasts /schistocytes --> abx and other meds have been reviewed --> ok for ppx if plt >50k w/ either heparin or lovenox --> Transfuse if Plt < 20k and fever, or if Plt < 10k without fever --> trend plts --> 182k-->160-->140-->119-->140k-->200k->529->527k->555k --> asa but not at this time --> meds reviewed and may be 2/2 vanc and amikacin but at this time ok to continue since borderline # Anemia of iron deficiency, on iron now --> Anemia workup has been ordered, rule out gi bleed, shows AID --> No evidence of hemolysis is noted, peripheral smear has been reviewed --> Hgb goal >7. Transfuse prn. --> Iron to continue --> Medications have been reviewed --> hgb 12-->10.7-->11.3-->10.8-->11->12 # Dysphagia and now s/p nG tube feedings --> as per gi, ng tube feedsings # Respo failure on vent --> per pulm/cc, on sbt, difficult weaning --> recs reviewed # Dehydration --> on ivfs, currently off per renal # Sepsis --> abx per id --> adjust as needed --> reviewed(whitney/vanc)--> ctx/vanc # DVT ppx with heparin sq The timing of this note does not necessarily reflect the time of the patient was seen. GREATLY APPRECIATE CONSULTATION. Subjective Constitutional: Denies: no symptoms, chills, fever, malaise, weakness, other HEENT: Denies: no symptoms, eye pain, blurred vision, tearing, double vision, ear pain, ear discharge, nose pain, nose congestion, throat pain, throat swelling, mouth pain, mouth swelling, other Cardiovascular: Denies: no symptoms, chest pain, edema, irregular heart rate, lightheadedness, palpitations, syncope, other Respiratory: Denies: no symptoms, cough, shortness of breath, SOB with excertion, SOB at rest, sputum, wheezing, other Gastrointestinal/Abdominal: Denies: no symptoms, abdomen distended, abdominal pain, black stools, tarry stools, blood in stool, constipated, diarrhea, difficulty swallowing, nausea, poor appetite, poor fluid intake, rectal bleeding , vomiting, other Genitourinary: Denies: no symptoms, burning, discharge, frequency, flank pain, hematuria, incontinence, pain, urgency, other Neurologic/Psychiatric: Denies: no symptoms, anxiety, depressed, emotional problems, headache, numbness, paresthesia, pre-existing deficit, seizure, tingling, tremors, weakness, other Allergies: Coded Allergies: No Known Allergies (Unverified , 02/04/17) Subjective 09/18: is on iron, as well as broad spectrum abx, labs reviewed 09/19: no events to report, angie Robertson rn, tfs ongoing via ng, on vent to wean protocol 09/20: remains intubated, unchanged 09/21: in icu, no major changes, no f/c, no night sweats 09/23: remains in the icu, considering extubation, no f/c noted 09/24: patient unable to be weaned, para was done, daily sbt 09/25: on abx, on vent, taylor, draining well, peg ongong tfs 09/26: gtf on hold, no fevers or chills, hgb better, weaning trial Objective Objective Current Medications Medications (Trade) Dose Ordered Sig/Wayne Route PRN Reason Start Time Stop Time Status Last Admin Dose Admin Acetaminophen (Tylenol) 650 mg Q4H PRN GT Mild Pain/Temp > 100.5 09/23/18 07:15 10/23/18 07:14 Acetylcysteine (Mucomyst) 100 mg Q4HRT [facility] 09/21/18 19:00 10/21/18 18:59 09/26/18 11:09 Albuterol/ Ipratropium (Albuterol/ Ipratropium) 3 ml Q4HRT [facility] 09/21/18 19:00 09/26/18 18:59 09/26/18 11:09 Artificial Tears (Akwa-Tears) 1 drop Q4H PRN BOTH EYES Dry Eyes 09/18/18 12:30 10/18/18 12:29 Ascorbic Acid (Vitamin C) 250 mg TWICE A DAY ORAL 09/18/18 18:00 10/18/18 17:59 09/26/18 08:24 Bisacodyl (Dulcolax) 10 mg DAILYPRN PRN RECTAL Constipation 09/14/18 12:45 10/14/18 12:44 Ceftriaxone Sodium 1 gm/ Dextrose 50 ml @ 100 mls/hr Q24H IVPB 09/25/18 21:00 10/02/18 20:59 09/25/18 20:36 Chlorhexidine Gluconate (Kamla-Hex 2%) 1 applic DAILY@2000 TOPIC 09/17/18 20:00 10/17/18 19:59 09/25/18 20:36 Dextrose (Dextrose 50%) 25 ml Q30M PRN IV Hypoglycemia 09/14/18 12:45 10/14/18 12:44 Dextrose (Dextrose 50%) 50 ml Q30M PRN IV Hypoglycemia 09/14/18 12:45 10/14/18 12:44 Dextrose/ Electrolytes 1,000 ml @ 50 mls/hr Q20H IV 09/23/18 11:00 10/23/18 10:59 09/25/18 17:49 Diphenhydramine HCl (Benadryl) 25 mg Q6H PRN ORAL Itching/Pruritis 09/14/18 12:45 10/14/18 12:44 Docusate Sodium (Colace) 100 mg TWICE A DAY GT 09/25/18 09:00 10/25/18 08:59 09/26/18 08:24 Furosemide (Lasix) 20 mg DAILY GT 09/23/18 09:00 10/22/18 08:59 09/26/18 08:23 Heparin Sodium (Porcine) (Heparin 5000 units/ml) 5,000 units EVERY 12 HOURS SUBQ 09/14/18 21:00 10/14/18 20:59 09/25/18 10:08 Insulin Aspart (NovoLOG) Q6HR SUBQ 09/14/18 16:00 10/14/18 15:59 09/26/18 06:13 Insulin Detemir (Levemir) 12 units BEDTIME SUBQ 09/17/18 21:00 10/17/18 20:59 09/25/18 20:59 Magnesium Hydroxide (Mom) 30 ml HSPRN PRN ORAL Constipation 09/14/18 12:45 10/14/18 12:44 Metoclopramide HCl (Reglan) 10 mg Q8H PRN IVP Nausea & Vomiting 09/17/18 12:30 10/17/18 12:29 Ondansetron HCl (Zofran) 4 mg Q6H PRN IVP Nausea & Vomiting 09/14/18 12:45 10/14/18 12:44 09/17/18 07:41 Pantoprazole (Protonix) 40 mg DAILY IV 09/15/18 09:00 10/15/18 08:59 09/26/18 08:23 Vancomycin HCl (Vanco rx to dose) 1 ea DAILY PRN MISC Per rx protocol 09/26/18 12:30 10/26/18 12:29 Vancomycin HCl/ Dextrose 275 ml @ 137.5 mls/ hr Q24H IVPB 09/27/18 01:00 10/02/18 00:59 Last 24 Hour Vital Signs Date Time Temp Pulse Resp B/P (MAP) Pulse Ox O2 Delivery O2 Flow Rate FiO2 09/26/18 14:00 66 14 116/53 (74) 99 09/26/18 13:21 68 14 30 09/26/18 13:00 66 14 116/53 (74) 99 09/26/18 12:00 30 09/26/18 12:00 98.6 67 13 117/54 (75) 99 09/26/18 12:00 Mechanical Ventilator 09/26/18 12:00 66 09/26/18 11:23 65 14 100 Mechanical Ventilator 30 09/26/18 11:09 66 14 100 Mechanical Ventilator 30 09/26/18 11:04 68 19 30 30 09/26/18 11:00 67 21 134/50 (78) 100 09/26/18 10:26 99 09/26/18 10:00 67 22 133/57 (82) 99 09/26/18 09:00 73 22 137/56 (83) 99 09/26/18 08:20 75 23 30 30 09/26/18 08:00 30 09/26/18 08:00 61 09/26/18 08:00 98.7 64 14 134/48 (76) 100 09/26/18 08:00 Mechanical Ventilator 09/26/18 07:21 68 14 100 Mechanical Ventilator 30 09/26/18 07:09 59 14 100 Mechanical Ventilator 30 09/26/18 07:09 59 14 30 09/26/18 07:00 59 14 121/47 (71) 100 09/26/18 06:00 67 14 118/43 (68) 100 09/26/18 05:14 61 14 30 30 09/26/18 05:00 60 14 118/43 (68) 100 09/26/18 04:00 74 09/26/18 04:00 99.0 76 13 139/50 (79) 100 09/26/18 04:00 Mechanical Ventilator 09/26/18 04:00 30 09/26/18 03:30 66 14 100 Mechanical Ventilator 09/26/18 03:16 69 15 100 Mechanical Ventilator 30 09/26/18 03:15 69 15 30 30 09/26/18 03:00 59 14 96/36 (56) 100 09/26/18 02:00 67 14 97/38 (57) 100 09/26/18 01:20 66 14 30 30 09/26/18 01:00 69 14 124/46 (72) 98 09/26/18 00:00 70 09/26/18 00:00 30 09/26/18 00:00 Mechanical Ventilator 09/26/18 00:00 98.6 62 14 111/53 (72) 100 09/25/18 23:17 68 14 100 Mechanical Ventilator 30 09/25/18 23:06 69 14 96 Mechanical Ventilator 30 09/25/18 23:04 69 14 30 30 09/25/18 23:00 70 14 130/56 (80) 98 09/25/18 22:00 63 14 108/49 (68) 99 09/25/18 21:23 70 14 30 30 09/25/18 21:00 74 14 116/48 (70) 98 09/25/18 20:00 67 09/25/18 20:00 99.0 68 14 103/53 (70) 98 09/25/18 20:00 30 09/25/18 20:00 Mechanical Ventilator 09/25/18 19:05 72 14 100 Mechanical Ventilator 30 09/25/18 19:00 81 14 126/59 (81) 100 09/25/18 18:50 64 14 100 Mechanical Ventilator 30 09/25/18 18:48 66 14 30 30 09/25/18 18:00 74 14 118/54 (75) 99 09/25/18 17:20 80 14 30 09/25/18 17:00 89 14 129/98 (108) 100 09/25/18 16:00 73 09/25/18 16:00 Mechanical Ventilator 09/25/18 16:00 30 09/25/18 16:00 98.7 76 14 102/56 (71) 100 09/25/18 15:32 75 14 100 Mechanical Ventilator 30 09/25/18 15:27 79 22 30 09/25/18 15:25 78 16 100 Mechanical Ventilator 30 09/25/18 15:00 78 18 145/57 (86) 100 09/25/18 14:00 66 14 118/49 (72) 100 09/25/18 13:00 71 24 126/50 (75) 100 09/25/18 12:59 72 26 30 30 09/25/18 12:00 71 09/25/18 12:00 30 09/25/18 12:00 98.7 80 28 146/55 (85) 100 09/25/18 12:00 Mechanical Ventilator 09/25/18 11:00 73 26 135/48 (77) 100 09/25/18 10:41 75 26 100 Mechanical Ventilator 30 09/25/18 10:38 98 09/25/18 10:38 72 27 30 30 09/25/18 10:32 72 27 100 Mechanical Ventilator 30 09/25/18 10:00 70 28 135/58 (83) 98 09/25/18 09:00 98.9 70 27 126/46 (72) 98 09/25/18 08:44 70 26 30 30 09/25/18 08:00 71 28 141/51 (81) 100 09/25/18 08:00 64 09/25/18 08:00 Mechanical Ventilator 09/25/18 08:00 30 09/25/18 07:46 Mechanical Ventilator 30 09/25/18 07:46 Mechanical Ventilator 30 09/25/18 07:43 66 27 30 09/25/18 07:00 68 22 141/53 (82) 100 09/25/18 06:00 62 15 134/48 (76) 100 09/25/18 05:00 64 15 135/47 (76) 100 09/25/18 04:52 68 14 30 09/25/18 04:00 68 09/25/18 04:00 30 09/25/18 04:00 Mechanical Ventilator 09/25/18 04:00 98.6 61 14 129/107 (114) 100 09/25/18 03:30 76 14 100 Mechanical Ventilator 30 09/25/18 03:21 62 14 100 Mechanical Ventilator 30 09/25/18 03:20 62 15 30 09/25/18 03:00 71 14 138/38 (71) 100 09/25/18 02:00 60 14 128/71 (90) 100 09/25/18 01:00 70 14 126/50 (75) 98 09/25/18 00:55 72 15 30 09/25/18 00:00 30 09/25/18 00:00 Mechanical Ventilator 09/25/18 00:00 70 09/25/18 00:00 98.8 69 14 116/46 (69) 97 09/24/18 23:18 67 14 99 Mechanical Ventilator 30 09/24/18 23:09 70 14 99 Mechanical Ventilator 30 09/24/18 23:08 70 14 30 09/24/18 23:00 62 14 105/46 (65) 98 09/24/18 22:00 65 14 133/58 (83) 98 09/24/18 21:00 66 14 119/47 (71) 98 09/24/18 20:00 98.6 64 14 110/43 (65) 98 09/24/18 20:00 30 09/24/18 20:00 Mechanical Ventilator 09/24/18 20:00 64 09/24/18 19:22 73 14 100 Mechanical Ventilator 30 09/24/18 19:12 63 14 99 Mechanical Ventilator 30 09/24/18 19:12 61 14 30 09/24/18 19:00 66 15 129/51 (77) 99 09/24/18 18:00 66 14 101/43 (62) 98 09/24/18 17:25 60 14 30 09/24/18 17:00 70 14 115/49 (71) 98 09/24/18 16:00 30 09/24/18 16:00 58 09/24/18 16:00 99.2 70 14 116/44 (68) 97 09/24/18 16:00 Mechanical Ventilator 09/24/18 15:38 70 14 100 Mechanical Ventilator 30 09/24/18 15:35 59 14 30 09/24/18 15:30 76 14 100 Mechanical Ventilator 30 09/24/18 15:28 82 14 30 09/24/18 15:00 60 14 117/52 (73) 98 Intake and Output 09/25/18 09/26/18 19:00 07:00 Intake Total 1450 ml 1515.0 ml Output Total 1350 ml 1415 ml Balance 100 ml 100.0 ml Intake Free Water 330 ml 150 ml IV Total 700 ml 925.0 ml Tube Feeding 420 ml 440 ml Output Urine Total 1350 ml 1415 ml # Bowel Movements 4 Labs Test 09/24/18 04:00 09/25/18 05:20 09/26/18 00:10 09/26/18 04:10 White Blood Count 10.3 K/UL (4.8-10.8) 9.3 K/UL (4.8-10.8) 8.4 K/UL (4.8-10.8) Red Blood Count 3.49 M/UL (4.20-5.40) 3.50 M/UL (4.20-5.40) 3.85 M/UL (4.20-5.40) Hemoglobin 11.0 G/DL (12.0-16.0) 11.0 G/DL (12.0-16.0) 12.1 G/DL (12.0-16.0) Hematocrit 33.9 % (37.0-47.0) 35.0 % (37.0-47.0) 37.0 % (37.0-47.0) Mean Corpuscular Volume 97 FL (80-99) 100 FL (80-99) 96 FL (80-99) Mean Corpuscular Hemoglobin 31.6 PG (27.0-31.0) 31.5 PG (27.0-31.0) 31.3 PG (27.0-31.0) Mean Corpuscular Hemoglobin Concent 32.6 G/DL (32.0-36.0) 31.5 G/DL (32.0-36.0) 32.6 G/DL (32.0-36.0) Red Cell Distribution Width 13.9 % (11.6-14.8) 14.6 % (11.6-14.8) 13.5 % (11.6-14.8) Platelet Count 527 K/UL (150-450) 525 K/UL (150-450) 537 K/UL (150-450) Mean Platelet Volume 5.7 FL (6.5-10.1) 4.3 FL (6.5-10.1) 5.8 FL (6.5-10.1) Neutrophils (%) (Auto) 74.2 % (45.0-75.0) 75.8 % (45.0-75.0) 69.1 % (45.0-75.0) Lymphocytes (%) (Auto) 19.3 % (20.0-45.0) 17.2 % (20.0-45.0) 22.4 % (20.0-45.0) Monocytes (%) (Auto) 4.3 % (1.0-10.0) 4.7 % (1.0-10.0) 6.0 % (1.0-10.0) Eosinophils (%) (Auto) 1.7 % (0.0-3.0) 1.5 % (0.0-3.0) 1.9 % (0.0-3.0) Basophils (%) (Auto) 0.6 % (0.0-2.0) 0.8 % (0.0-2.0) 0.6 % (0.0-2.0) Sodium Level 140 MMOL/L (136-145) 144 MMOL/L (136-145) 135 MMOL/L (136-145) Potassium Level 4.2 MMOL/L (3.5-5.1) 4.1 MMOL/L (3.5-5.1) 3.8 MMOL/L (3.5-5.1) Chloride Level 107 MMOL/L (98-107) 110 MMOL/L (98-107) 103 MMOL/L (98-107) Carbon Dioxide Level 26 MMOL/L (21-32) 29 MMOL/L (21-32) 26 MMOL/L (21-32) Anion Gap 7 mmol/L (5-15) 5 mmol/L (5-15) 7 mmol/L (5-15) Blood Urea Nitrogen 8 mg/dL (7-18) 10 mg/dL (7-18) 7 mg/dL (7-18) Creatinine 0.7 MG/DL (0.55-1.30) 0.7 MG/DL (0.55-1.30) 0.6 MG/DL (0.55-1.30) Estimat Glomerular Filtration Rate mL/min (>60) mL/min (>60) mL/min (>60) Glucose Level 217 MG/DL (74-106) 190 MG/DL (74-106) 171 MG/DL (74-106) Calcium Level 9.2 MG/DL (8.5-10.1) 8.7 MG/DL (8.5-10.1) 9.1 MG/DL (8.5-10.1) Magnesium Level 2.0 MG/DL (1.8-2.4) 2.0 MG/DL (1.8-2.4) 1.9 MG/DL (1.8-2.4) Vancomycin Level Trough 14.7 ug/mL (5.0-12.0) Uric Acid 3.4 MG/DL (2.6-7.2) Phosphorus Level 2.5 MG/DL (2.5-4.9) Total Bilirubin 0.3 MG/DL (0.2-1.0) Aspartate Amino Transf (AST/SGOT) 17 U/L (15-37) Alanine Aminotransferase (ALT/SGPT) 9 U/L (12-78) Alkaline Phosphatase 93 U/L (46-116) C-Reactive Protein, Quantitative 1.3 mg/dL (0.00-0.90) Pro-B-Type Natriuretic Peptide 212 pg/mL (0-125) Total Protein 6.9 G/DL (6.4-8.2) Albumin 1.7 G/DL (3.4-5.0) Globulin 5.2 g/dL Albumin/Globulin Ratio 0.3 (1.0-2.7) Test 09/26/18 10:15 Arterial Blood pH 7.482 (7.350-7.450) Arterial Blood Partial Pressure CO2 29.0 mmHg (35.0-45.0) Arterial Blood Partial Pressure O2 99.5 mmHg (75.0-100.0) Arterial Blood HCO3 21.2 mmol/L (22.0-26.0) Arterial Blood Oxygen Saturation 97.5 % (95-100) Arterial Blood Base Excess -1.3 (-2-2) Ray Test Positive Height (Feet): 5 Height (Inches): 3.00 Weight (Pounds): 123 Objective Physical Exam: Vitals: reviewed General Appearance: NAD HEENT: normocephalic, atraumatic ++ogt Chest: normal breath sounds bilaterally ++ vent Cardiovascular: normal peripheral pulses, normal rate Abdomen: normal bowel sounds, soft, nontender ++ gtube Extremities: normal range of motion Mateo Wei MD Sep 26, 2018 14:18
--- NOTE | 2018-09-26 14:31 | NUR ---
NURSE NOTES: patient's son, Osei, and Dr. Swift at bedside. Per Dr. Swift, patient for extubation today. MD discussed code status upon extubation with patient's son. pt's son states pt's brother will be coming and will discuss code status.
[2018-09-26] MEDS: D5 1/2NS w/KCl 20mEq 1,000 ML IV SCH (14:47)
--- NOTE | 2018-09-26 15:50 | NUR ---
NURSE NOTES: Both patient's son and brother at bedside, spoke with charge nurse, Li. Per charge nurse, family will make final decision about pt's code status by tomorrow. Informed Dr. Swift. Per Dr. Swift, restart tube feeding, hold tube feeding at 4am tomorrow and try weaning again tomorrow AM. Tube feeding, glucerna 1.2, resumed, at 55ml/hr via G-tube. No residual noted. HOB elevated.
--- NOTE | 2018-09-26 16:23 | NUR ---
NURSE NOTES: Patient was turned and repositioned. Oral care and taylor care provided. patient kept clean and dry. All wound dressings intact, clean and dry. VSS. HOB kept elevated.
--- NOTE | 2018-09-26 16:46 | NUR ---
NURSE NOTES:WOUND CARE FOLLOW-UP NOTES:Loose dry scab noted to L ear and easily removed. Skin is clean and intact. Full thickness sacral pressure injury with slough centrally at sacrococcygeal area with surrounding pink granulation.(L)Area of slough measures (L)1.4cm x (W)1cm.Total pressure injury measures (L)4cm x (W)5.5cm. R and L heels are soft ,pink and each heel are easily blanchable. Tx.Plan: Cleanse sacral wound with saline. Apply Therahoney.Apply Moisture Barrier Paste to periwound. Cover with Optifoam drsg. Change every 3 days and prn. Apply Cavilon Skin Barrier to both heels. Cover each heel with Opifoam drsg. Change every 7 days and prn. APM/LOU Mattress overlay. Reposition at least every 2hours or as tolerated. Off-load heels with pillow.
--- NOTE | 2018-09-26 17:15 | NUR ---
RESPIRATORY NOTE: Pt displace excessive amount of volume loss. Suspected leak in the cuff. Charge nurse and nurse aware.
--- NOTE | 2018-09-26 18:07 | Surgery Progress Note ---
Surgery Progress Note Subjective Additional Comments labs noted weaning trials to see if can be extubated exam unchanged. Objective Last 24 Hour Vital Signs Date Time Temp Pulse Resp B/P (MAP) Pulse Ox O2 Delivery O2 Flow Rate FiO2 09/26/18 17:00 97 20 138/59 (85) 97 09/26/18 16:58 79 14 30 09/26/18 16:00 Mechanical Ventilator 09/26/18 16:00 66 09/26/18 16:00 98.6 62 14 113/48 (69) 100 09/26/18 16:00 30 09/26/18 15:33 65 14 100 Mechanical Ventilator 30 09/26/18 15:16 65 14 30 09/26/18 15:16 65 14 99 Mechanical Ventilator 30 09/26/18 15:00 68 16 114/50 (71) 97 09/26/18 14:00 66 14 116/53 (74) 99 09/26/18 13:21 68 14 30 09/26/18 13:00 66 14 116/53 (74) 99 09/26/18 12:00 30 09/26/18 12:00 98.6 67 13 117/54 (75) 99 09/26/18 12:00 Mechanical Ventilator 09/26/18 12:00 66 09/26/18 11:23 65 14 100 Mechanical Ventilator 30 09/26/18 11:09 66 14 100 Mechanical Ventilator 30 09/26/18 11:04 68 19 30 30 09/26/18 11:00 67 21 134/50 (78) 100 09/26/18 10:26 99 09/26/18 10:00 67 22 133/57 (82) 99 09/26/18 09:00 73 22 137/56 (83) 99 09/26/18 08:20 75 23 30 30 09/26/18 08:00 30 09/26/18 08:00 61 09/26/18 08:00 98.7 64 14 134/48 (76) 100 09/26/18 08:00 Mechanical Ventilator 09/26/18 07:21 68 14 100 Mechanical Ventilator 30 09/26/18 07:09 59 14 100 Mechanical Ventilator 30 09/26/18 07:09 59 14 30 09/26/18 07:00 59 14 121/47 (71) 100 09/26/18 06:00 67 14 118/43 (68) 100 09/26/18 05:14 61 14 30 30 09/26/18 05:00 60 14 118/43 (68) 100 09/26/18 04:00 74 09/26/18 04:00 99.0 76 13 139/50 (79) 100 09/26/18 04:00 Mechanical Ventilator 09/26/18 04:00 30 09/26/18 03:30 66 14 100 Mechanical Ventilator 30 09/26/18 03:16 69 15 100 Mechanical Ventilator 30 09/26/18 03:15 69 15 30 30 09/26/18 03:00 59 14 96/36 (56) 100 09/26/18 02:00 67 14 97/38 (57) 100 09/26/18 01:20 66 14 30 30 09/26/18 01:00 69 14 124/46 (72) 98 09/26/18 00:00 70 09/26/18 00:00 30 09/26/18 00:00 Mechanical Ventilator 09/26/18 00:00 98.6 62 14 111/53 (72) 100 09/25/18 23:17 68 14 100 Mechanical Ventilator 30 09/25/18 23:06 69 14 96 Mechanical Ventilator 30 09/25/18 23:04 69 14 30 30 09/25/18 23:00 70 14 130/56 (80) 98 09/25/18 22:00 63 14 108/49 (68) 99 09/25/18 21:23 70 14 30 30 09/25/18 21:00 74 14 116/48 (70) 98 09/25/18 20:00 67 09/25/18 20:00 99.0 68 14 103/53 (70) 98 09/25/18 20:00 30 09/25/18 20:00 Mechanical Ventilator 09/25/18 19:05 72 14 100 Mechanical Ventilator 30 09/25/18 19:00 81 14 126/59 (81) 100 09/25/18 18:50 64 14 100 Mechanical Ventilator 30 09/25/18 18:48 66 14 30 30 I&O Intake and Output 09/25/18 09/26/18 19:00 07:00 Intake Total 1450 ml 1515.0 ml Output Total 1350 ml 1415 ml Balance 100 ml 100.0 ml Intake Free Water 330 ml 150 ml IV Total 700 ml 925.0 ml Tube Feeding 420 ml 440 ml Output Urine Total 1350 ml 1415 ml # Bowel Movements 4 Dressing: other Wound: other Drains: other Cardiovascular: RSR Respiratory: decreased breath sounds Abdomen: soft, present bowel sounds Extremities: no cyanosis, other Laboratory Tests Test 09/26/18 00:10 09/26/18 04:10 09/26/18 10:15 Vancomycin Level Trough 14.7 ug/mL (5.0-12.0) H White Blood Count 8.4 K/UL (4.8-10.8) Red Blood Count 3.85 M/UL (4.20-5.40) L Hemoglobin 12.1 G/DL (12.0-16.0) Hematocrit 37.0 % (37.0-47.0) Mean Corpuscular Volume 96 FL (80-99) Mean Corpuscular Hemoglobin 31.3 PG (27.0-31.0) H Mean Corpuscular Hemoglobin Concent 32.6 G/DL (32.0-36.0) Red Cell Distribution Width 13.5 % (11.6-14.8) Platelet Count 537 K/UL (150-450) H Mean Platelet Volume 5.8 FL (6.5-10.1) L Neutrophils (%) (Auto) 69.1 % (45.0-75.0) Lymphocytes (%) (Auto) 22.4 % (20.0-45.0) Monocytes (%) (Auto) 6.0 % (1.0-10.0) Eosinophils (%) (Auto) 1.9 % (0.0-3.0) Basophils (%) (Auto) 0.6 % (0.0-2.0) Sodium Level 135 MMOL/L (136-145) L Potassium Level 3.8 MMOL/L (3.5-5.1) Chloride Level 103 MMOL/L (98-107) Carbon Dioxide Level 26 MMOL/L (21-32) Anion Gap 7 mmol/L (5-15) Blood Urea Nitrogen 7 mg/dL (7-18) Creatinine 0.6 MG/DL (0.55-1.30) Estimat Glomerular Filtration Rate mL/min (>60) Glucose Level 171 MG/DL (74-106) H Uric Acid 3.4 MG/DL (2.6-7.2) Calcium Level 9.1 MG/DL (8.5-10.1) Phosphorus Level 2.5 MG/DL (2.5-4.9) Magnesium Level 1.9 MG/DL (1.8-2.4) Total Bilirubin 0.3 MG/DL (0.2-1.0) Aspartate Amino Transf (AST/SGOT) 17 U/L (15-37) Alanine Aminotransferase (ALT/SGPT) 9 U/L (12-78) L Alkaline Phosphatase 93 U/L (46-116) C-Reactive Protein, Quantitative 1.3 mg/dL (0.00-0.90) H Pro-B-Type Natriuretic Peptide 212 pg/mL (0-125) H Total Protein 6.9 G/DL (6.4-8.2) Albumin 1.7 G/DL (3.4-5.0) L Globulin 5.2 g/dL Albumin/Globulin Ratio 0.3 (1.0-2.7) L Arterial Blood pH 7.482 (7.350-7.450) Arterial Blood Partial Pressure CO2 29.0 mmHg (35.0-45.0) L Arterial Blood Partial Pressure O2 99.5 mmHg (75.0-100.0) Arterial Blood HCO3 21.2 mmol/L (22.0-26.0) L Arterial Blood Oxygen Saturation 97.5 % (95-100) Arterial Blood Base Excess -1.3 (-2-2) Ray Test Positive Plan Problems: (1) Sepsis Assessment & Plan: 77-year-old female presented to [facility] in distress found to be septic with leukocytosis tachycardia and requiring ventilatory support. Patient's labs noted and significant abnormal. Lactic acidosis. Severe dehydration. Admit to intensive care unit IV fluids Vent support - cont with weaning trial. looks okay for extubation soon IV antibiotics as per infectious disease Trend labs A.m. chest x-ray okay for tube feeds ICU care Leukocytosis improving. Labs improving. US noted wean vent for extubation We will follow with recommendations Thank you for allowing me to participate in patient's care (2) Lactic acid acidosis (3) Upper sacral area unstageable pressure ulcer Assessment & Plan: Loose dry scab noted to L ear and easily removed. Skin is clean and intact. Full thickness sacral pressure injury with slough centrally at sacrococcygeal area with surrounding pink granulation.(L)Area of slough measures (L)1.4cm x (W)1cm.Total pressure injury measures (L)4cm x (W)5.5cm. R and L heels are soft ,pink and each heel are easily blanchable. Tx.Plan: Cleanse sacral wound with saline. Apply Therahoney.Apply Moisture Barrier Paste to periwound. Cover with Optifoam drsg. Change every 3 days and prn. Apply Cavilon Skin Barrier to both heels. Cover each heel with Opifoam drsg. Change every 7 days and prn. APM/LOU Mattress overlay. Reposition at least every 2hours or as tolerated. Off-load heels with pillow. (4) G tube feedings Assessment & Plan: DAILY ESTIMATED NEEDS: Needs based on Critical care, sepsis, wound, DM 53.6kg 25-32 kcals/kg 9834-0638 total kcals 1.25-2 g protein/kg 67-107 g total protein 25-32ml/kcal mL/kg 3519-8069 total fluid mLs NUTRITION DIAGNOSIS: 1) Swallowing difficulty R/T dysphagia, CVA as evidenced by PEG dependent, now orally intubated. 2) Increased kcal and pro needs r/t sepsis and wound healing as evidenced by elev BG and POC (200-400's), elev WBC (15.7), febrile (Tmax 100.9), elev Na (148), sacral wound/ unstageable per MD. CURRENT TF: Glucerna 1.2 @60 hrs ENTERAL NUTRITION RECOMMENDATIONS: Glucerna 1.2 @55ml/hr x24 hrs + Prosource x1 daily to provide 1320ml, 1584 kcal, 79g + 11g pro, 1063ml free H2O - Maintain Glucerna 1.2 -> Rec to REDUCE RATE to goal of 55ml/hr - Add Prosource x1 daily to better meet est pro needs - HOB over 30 degrees - Flush per MD-> 150q6 for added 600ml free fluid per day (1063ml from TF + 600ml flushes= 1663ml free fluid per day). ------ ADDITIONAL RECOMMENDATIONS: 1) Monitor hydration status 2) Obtain an accurate calibrated bed scale wt 3) Lytes daily on TF/ replete as needed 4) Rec increase hypoglycemic agents for improved BG control 5) Sacral wound: add AYDEE BID via PEG daily + Vit C 250mg BID daily via GT (5) Respiratory failure (6) Ventilator dependence Akhil Jackson Sep 26, 2018 18:07
--- NOTE | 2018-09-26 18:18 | NUR ---
NURSE NOTES: Patient tolerated tube feeding. HOB kept elevated. Patient resting in bed comfortably. VSS. Addendum: 09/26/18 at 1844 by AMANDA AGARWAL RN stopped tube feeding.
--- NOTE | 2018-09-26 18:30 | NUR ---
NURSE NOTES: Patient noted with burst ETT balloon per RT. Dr. Swift made aware. Per , hold tube feeding and extubate in 2 hours. Addendum: 09/26/18 at 1854 by AMANDA AGARWAL RN RT at bedside. O2 sat 99-100%. No acute distress noted.
--- NOTE | 2018-09-26 19:12 | NUR ---
RESPIRATORY NOTE: Received pt on AC 14, 500VT, 30%, PEEP +5. Pt intubated w/ ETT 7.0 @ 20cm lipline, secured by anchorfast. Pt is awake, responds to stimuli. B/S emilie. rhonchi/diminished, sxn small amounts of thick, bloody secretions. No hand restraints as pt unable to move hands. ETT cuff is leaking since this afternoon, both bedside RN & devulcanizer charger aware. MD also aware. Pt still getting adequate VT at this time as long as the ship pilot dispatcher balloon is reinflated. Pt resting comfortably at this time. Vent plugged into red outlet, ambubag at bedside. Will continue to monitor pt.
--- NOTE | 2018-09-26 19:15 | NUR ---
NURSE NOTES: Charge nurse, Li, spoke with patient's brother, Ryan. Informed that patient is going to be extubated at 2030. Per charge nurse, the brother verbalized understanding, okay to keep the patient full code. Endorsed to next shift nurse.
--- NOTE | 2018-09-26 19:16 | NUR ---
HAND-OFF: Report given to FELIX Zhang.
--- NOTE | 2018-09-26 19:20 | NUR ---
NURSE NOTES: Received report from Rah WASHINGTON. Patient on AC 14, TV 500,Fi02 30%, PEEP +5. Pt intubated w/ ETT 7.0 @ 20cm lipline, secured by anchorfast. Pt is awake, responds to stimuli. Noted with loose tooth. Oral care and suctioned with small amounts of thick, bloody secretions. No s/s of acute distress noted. SR on front desk monitor HR 67. Temp 98.8 axillary. ETT cuff is leaking since this afternoon, MD , Family and charge account authorizer aware. Hold GT feeding per Dr. Swift, with 60cc residual. Nunez draining with clear yellow urine. Repositioned. Bed alarm on. Bed locked and in low position. No s/s of hypo/hyperglycemia. Will continue to monitor patient.
--- NOTE | 2018-09-26 19:39 | NUR ---
NURSE NOTES: Patient's brother Ryan came and visit the patient, updated regarding the patient conditions.
[2018-09-26] MEDS: Dyna-Hex 2% Top Sol 2oz TOPIC SCH (19:44)
[2018-09-26] MEDS: cefTRIAXone 1 GM in D5W 50 ML IVPB SCH (20:00)
[2018-09-26] MEDS: Levemir Flexpen SUBQ SCH (20:01)
--- NOTE | 2018-09-26 20:20 | NUR ---
NURSE NOTES: Patient in bed sleeping comfortably. No s/s of acute distress noted. Fi02 30% satting 100%. HOB elevated. Will continue to monitor pt
--- NOTE | 2018-09-26 22:00 | NUR ---
NURSE NOTES: Patient in bed resting comfortably. No s/s of acute distress noted. Tolerating the vent setting. Fi02 30% satting 100%. HOB elevated. No s/s of hypo/hyperglycemia. Will continue to monitor if the patient needs to be extubated and will call Dr. Swift.
--- NOTE | 2018-09-26 23:48 | NUR ---
NURSE NOTES: Called Dr. Swift regarding patient tolerating the vent with fi02 30% satting 100% per MD keep the patient on Vent, off GTF, and will wean the pt in am. Charge nurse and RT aware. will continue to monitor patient.
[2018-09-27] VITALS (24 sets, daily range): BP systolic 106–153; BP diastolic 44–69
[2018-09-27] MEDS: Vancomycin 1.5gm Premix IVPB SCH (00:54)
[2018-09-27] MEDS ORDERED: Vancomycin 1.5gm/D5W Premix 275 ML IVPB SCH (01:00)
--- NOTE | 2018-09-27 01:48 | NUR ---
NURSE NOTES: Patient continue on AC 14, TV 500,Fi02 30%, PEEP +5. Pt intubated w/ ETT 7.0 @ 20cm lipline, secured by anchorfast. Satting 100%. Pt is sleeping comfortably, responds to verbal stimuli. Noted with loose tooth. Oral care and suctioned with small amounts of thick, bloody secretions. No s/s of acute distress noted. SB on campus monitor HR 58. Temp 98.6 axillary. ETT cuff not leaking since 8pm. Nunez draining with clear yellow urine. Repositioned. Bed alarm on. Bed locked and in low position. No s/s of hypo/hyperglycemia. Will continue to monitor patient.
[2018-09-27] MEDS: Albuterol/Ipratropium 3ml neb HHN SCH ×6 (02:40→23:11)
--- NOTE | 2018-09-27 03:48 | NUR ---
NURSE NOTES: Bed bath given tolerated well. Repositioned. oral care provided. HOB elevated. Nunez draining. Dressing intact on sacral and bilateral heel. on low air loss mattress for wound management. No s/s of acute distress. Fi02 30% satting 100%. Sinus osmani on hall monitor HR 55. Frequent visual checks continued.
[2018-09-27 04:58] LABS: HEMATOCRIT 39.7 % (37.0-47.0); RED BLOOD COUNT 4.13 M/UL (4.20-5.40); WHITE BLOOD COUNT 6.5 K/UL (4.8-10.8)
[2018-09-27 04:59] LABS: BASOPHILS % (AUTO) 0.8 % (0.0-2.0); EOSINOPHILS % (AUTO) 2.1 % (0.0-3.0); LYMPHOCYTES % (AUTO) 26.9 % (20.0-45.0); MEAN CORPUSCULAR VOLUME 96 FL (80-99); MONOCYTES % (AUTO) 6.7 % (1.0-10.0); NEUTROPHILS % (AUTO) 63.5 % (45.0-75.0); PLATELET COUNT 506 K/UL (150-450); RED CELL DISTRIBUTION WIDTH 13.7 % (11.6-14.8)
[2018-09-27 05:36] LABS: ANION GAP 9 mmol/L (5-15); BLOOD UREA NITROGEN 5 mg/dL (7-18); CALCIUM 8.8 MG/DL (8.5-10.1); CARBON DIOXIDE 23 MMOL/L (21-32); CHLORIDE 104 MMOL/L (98-107); CREATININE 0.6 MG/DL (0.55-1.30); POTASSIUM 4.5 MMOL/L (3.5-5.1); SODIUM 136 MMOL/L (136-145)
--- NOTE | 2018-09-27 05:38 | NUR ---
NURSE NOTES: Repositioned. oral care provided. HOB elevated. Nunez draining. Dressing intact on sacral and bilateral heel. on low air loss mattress for wound management. No s/s of acute distress. Fi02 30% satting 100%. Sinus osmani on substation technician HR 59. Frequent visual checks continued. Temp 98.6 axillary.
[2018-09-27] MEDS: NovoLOG Insulin Flexpen SUBQ SCH ×4 (06:13→17:20)
--- NOTE | 2018-09-27 07:05 | NUR ---
HAND-OFF: Report given to Rah WASHINGTON.
--- NOTE | 2018-09-27 07:30 | NUR ---
NURSE NOTES: Received pt from FELIX Zhang. patient asleep, easily arousable, unable to follow commands. orally intubated ETT size 7.0, 22cm at lip line. Vent settings: AC 14, TV500, FIO2 40%, PEEP 5, oxygen saturation 100%. No acute distress noted. Sinus rhythm noted on rn admission. G-tube intact and patent, tube feeding has been held for weaning and possible extubation today. HOB kept elevated. Left upper arm PICC intact, running D51/2NS with 20meq KCL @50ml/hr. Nunez cath intact, draining urine by gravity. Patient on P200 mattress for wound care. Bed in lowest position, locked, side rails upx3. Bed alarm on. Will continue to monitor.
--- NOTE | 2018-09-27 07:55 | NUR ---
RESPIRATORY NOTES: Weaning started at 0755. Placed Patient on PS +8 PEEP +5 FIO2 30%. Patient currently tolerating well. Will continue to closely monitor. FELIX teixeira.
[2018-09-27] MEDS: Heparin 5000 units/ml inj SUBQ SCH ×2 (08:35→21:00)
--- NOTE | 2018-09-27 08:35 | NUR ---
NURSE NOTES: Patient seen by Dr. Wei. aware of some bleeding from teeth/gum. will hold am heparin sq per .
[2018-09-27] MEDS: Ascorbic Acid 500mg tab ORAL SCH ×2 (08:46→17:19)
[2018-09-27] MEDS: D5 1/2NS w/KCl 20mEq 1,000 ML IV SCH ×2 (08:47→15:33)
[2018-09-27] MEDS: Docusate 100mg tablet GT SCH ×2 (08:47→17:19)
[2018-09-27] MEDS: Pantoprazole Inj IV SCH (08:47)
--- NOTE | 2018-09-27 10:04 | GI Progress Note ---
Assessment/Plan Problems: (1) DM (diabetes mellitus) ICD Codes: E11.9 - Type 2 diabetes mellitus without complications SNOMED: 41432899 (2) Dehydration ICD Codes: E86.0 - Dehydration SNOMED: 10170598 (3) G tube feedings ICD Codes: Z93.1 - Gastrostomy status SNOMED: 105122057, 799356709, 482507417 (4) Electrolyte imbalance ICD Codes: E87.8 - Other disorders of electrolyte and fluid balance, not elsewhere classified SNOMED: 810997448 (5) Sepsis ICD Codes: A41.9 - Sepsis, unspecified organism SNOMED: 99662088 Status: unchanged Status Narrative Discussed with Dr. Brown. Assessment/Plan GTF>> on hold for possible extubation abx per ID abd us>> neg cont bowel regimen ppi follow labs The patient was seen and examined at bedside and all new and available data was reviewed in the patients chart. I agree with the above findings, impression and plan. (Patient seen earlier today. Signature stamp does not reflect patient encounter time.). - Ovi Brown MD Subjective Subjective limited Objective Last 24 Hour Vital Signs Date Time Temp Pulse Resp B/P (MAP) Pulse Ox O2 Delivery O2 Flow Rate FiO2 09/27/18 09:22 99 09/27/18 09:06 63 21 30 30 09/27/18 09:00 61 21 115/48 (70) 99 09/27/18 08:00 65 09/27/18 08:00 98.6 61 21 113/46 (68) 99 09/27/18 08:00 30 09/27/18 08:00 Mechanical Ventilator 09/27/18 07:48 99 22 30 30 09/27/18 07:47 Mechanical Ventilator 30 09/27/18 07:47 Mechanical Ventilator 30 09/27/18 07:00 62 15 125/44 (71) 98 09/27/18 06:00 60 14 112/46 (68) 99 09/27/18 05:00 60 14 123/45 (71) 100 09/27/18 04:57 59 14 30 09/27/18 04:00 30 09/27/18 04:00 Mechanical Ventilator 09/27/18 04:00 98.6 60 14 119/45 (69) 100 09/27/18 03:19 63 09/27/18 03:00 56 14 153/58 (89) 100 09/27/18 02:53 55 14 100 Mechanical Ventilator 30 09/27/18 02:40 59 14 100 Mechanical Ventilator 30 09/27/18 02:39 59 14 30 09/27/18 02:00 58 16 139/49 (79) 100 09/27/18 01:00 61 21 133/46 (75) 100 09/27/18 00:50 63 14 30 09/27/18 00:00 Mechanical Ventilator 09/27/18 00:00 98.6 73 15 142/58 (86) 99 09/26/18 23:24 58 09/26/18 23:15 60 14 100 09/26/18 23:00 64 21 118/45 (69) 100 09/26/18 22:49 62 14 100 Mechanical Ventilator 30 09/26/18 22:35 55 14 100 Mechanical Ventilator 30 09/26/18 22:35 62 14 30 09/26/18 22:00 56 14 139/46 (77) 100 09/26/18 21:00 57 14 103/45 (64) 100 09/26/18 20:43 56 14 30 09/26/18 20:00 98.8 66 22 124/49 (74) 100 09/26/18 20:00 30 09/26/18 20:00 67 09/26/18 20:00 Mechanical Ventilator 09/26/18 19:11 70 23 98 Mechanical Ventilator 30 09/26/18 19:11 Mechanical Ventilator 30 09/26/18 19:11 Mechanical Ventilator 30 09/26/18 19:10 72 14 30 09/26/18 19:00 76 26 123/48 (73) 98 09/26/18 18:00 77 16 113/44 (67) 97 09/26/18 17:00 97 20 138/59 (85) 97 09/26/18 16:58 79 14 30 09/26/18 16:00 Mechanical Ventilator 09/26/18 16:00 66 09/26/18 16:00 98.6 62 14 113/48 (69) 100 09/26/18 16:00 30 09/26/18 15:33 65 14 100 Mechanical Ventilator 30 09/26/18 15:16 65 14 30 09/26/18 15:16 65 14 99 Mechanical Ventilator 30 09/26/18 15:00 68 16 114/50 (71) 97 09/26/18 14:00 66 14 116/53 (74) 99 09/26/18 13:21 68 14 30 09/26/18 13:00 66 14 116/53 (74) 99 09/26/18 12:00 30 09/26/18 12:00 98.6 67 13 117/54 (75) 99 09/26/18 12:00 Mechanical Ventilator 09/26/18 12:00 66 09/26/18 11:23 65 14 100 Mechanical Ventilator 30 09/26/18 11:09 66 14 100 Mechanical Ventilator 30 09/26/18 11:04 68 19 30 30 09/26/18 11:00 67 21 134/50 (78) 100 09/26/18 10:26 99 Intake and Output 09/26/18 09/27/18 19:00 07:00 Intake Total 1142.5 ml 1225.0 ml Output Total 1290 ml 1800 ml Balance -147.5 ml -575.0 ml Intake Free Water 330 ml 300 ml IV Total 647.5 ml 925.0 ml Tube Feeding 165 ml 0 ml Output Urine Total 1290 ml 1800 ml Laboratory Tests Test 09/26/18 10:15 09/27/18 04:10 Arterial Blood pH 7.482 (7.350-7.450) Arterial Blood Partial Pressure CO2 29.0 mmHg (35.0-45.0) L Arterial Blood Partial Pressure O2 99.5 mmHg (75.0-100.0) Arterial Blood HCO3 21.2 mmol/L (22.0-26.0) L Arterial Blood Oxygen Saturation 97.5 % (95-100) Arterial Blood Base Excess -1.3 (-2-2) Ray Test Positive White Blood Count 6.5 K/UL (4.8-10.8) Red Blood Count 4.13 M/UL (4.20-5.40) L Hemoglobin 13.0 G/DL (12.0-16.0) Hematocrit 39.7 % (37.0-47.0) Mean Corpuscular Volume 96 FL (80-99) Mean Corpuscular Hemoglobin 31.5 PG (27.0-31.0) H Mean Corpuscular Hemoglobin Concent 32.7 G/DL (32.0-36.0) Red Cell Distribution Width 13.7 % (11.6-14.8) Platelet Count 506 K/UL (150-450) H Mean Platelet Volume 5.5 FL (6.5-10.1) L Neutrophils (%) (Auto) 63.5 % (45.0-75.0) Lymphocytes (%) (Auto) 26.9 % (20.0-45.0) Monocytes (%) (Auto) 6.7 % (1.0-10.0) Eosinophils (%) (Auto) 2.1 % (0.0-3.0) Basophils (%) (Auto) 0.8 % (0.0-2.0) Sodium Level 136 MMOL/L (136-145) Potassium Level 4.5 MMOL/L (3.5-5.1) Chloride Level 104 MMOL/L (98-107) Carbon Dioxide Level 23 MMOL/L (21-32) Anion Gap 9 mmol/L (5-15) Blood Urea Nitrogen 5 mg/dL (7-18) L Creatinine 0.6 MG/DL (0.55-1.30) Estimat Glomerular Filtration Rate mL/min (>60) Glucose Level 214 MG/DL (74-106) H Calcium Level 8.8 MG/DL (8.5-10.1) Height (Feet): 5 Height (Inches): 3.00 Weight (Pounds): 123 Valente Bethea NP Sep 27, 2018 10:04
--- NOTE | 2018-09-27 10:38 | NUR ---
NURSE NOTES: patient resting in bed comfortably. on weaning, cpap. vss. no acute distress noted.
--- NOTE | 2018-09-27 11:30 | NUR ---
NURSE NOTES: Dr. Jerez at bedside to assess the patient. updated MD on pt's condition. no new orders at this time.
--- NOTE | 2018-09-27 11:38 | General Progress Note ---
Assessment/Plan Status: doing well, unchanged Assessment/Plan: Assessment/Plan Status: unchanged Assessment/Plan: 77 y/o F with acute hypoxemic respiratory failure and sepsis admitted to ICU # Acute hypoxemic respiratory failur suspect very low prognosis given neurologic status, family does not want tracheostomy and she is not tolerating weaning trials - ICU management by seam presser appreciated. - Bioethics consult requested - not completed yet pending trial of extubation. FULL CODE per family TODAY, the patient is on CPAP trial is being tolerated. ABG adequate and ICU decision for possible extubation attempt today. - Serial ABG and CXR as needed. 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 - Nephrology follow up appreciated. 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 - R gaze preference noted. - Awake today and moves her R side only # Hypertension - Monitor and resume home medications not needed now due to hypotension. # History of dementia - Supportive care - SW to attempt to find family members # DVT and GI ppx # FULL CODE by records. - CM / SW follow up for family is needed. Bioethics consult was requested. Subjective ROS Limited/Unobtainable: Yes Allergies: Coded Allergies: No Known Allergies (Unverified , 02/04/17) All Systems: reviewed and negative except above Subjective Mildly responsive, intubated, opens eyes spontaneously but is not following commands today. Tolerating CPAP trial well. Objective Last 24 Hour Vital Signs Date Time Temp Pulse Resp B/P (MAP) Pulse Ox O2 Delivery O2 Flow Rate FiO2 09/27/18 11:00 60 20 121/44 (69) 100 09/27/18 10:00 61 22 108/69 (82) 98 09/27/18 09:22 99 09/27/18 09:06 63 21 30 30 09/27/18 09:00 61 21 115/48 (70) 99 09/27/18 08:00 65 09/27/18 08:00 98.6 61 21 113/46 (68) 99 09/27/18 08:00 30 09/27/18 08:00 Mechanical Ventilator 09/27/18 07:48 99 22 30 30 09/27/18 07:47 Mechanical Ventilator 30 09/27/18 07:47 Mechanical Ventilator 30 09/27/18 07:00 62 15 125/44 (71) 98 09/27/18 06:00 60 14 112/46 (68) 99 09/27/18 05:00 60 14 123/45 (71) 100 09/27/18 04:57 59 14 30 09/27/18 04:00 30 09/27/18 04:00 Mechanical Ventilator 09/27/18 04:00 98.6 60 14 119/45 (69) 100 09/27/18 03:19 63 09/27/18 03:00 56 14 153/58 (89) 100 09/27/18 02:53 55 14 100 Mechanical Ventilator 09/27/18 02:40 59 14 100 Mechanical Ventilator 30 09/27/18 02:39 59 14 30 09/27/18 02:00 58 16 139/49 (79) 100 09/27/18 01:00 61 21 133/46 (75) 100 09/27/18 00:50 63 14 30 09/27/18 00:00 Mechanical Ventilator 09/27/18 00:00 98.6 73 15 142/58 (86) 99 09/26/18 23:24 58 09/26/18 23:15 60 14 100 09/26/18 23:00 64 21 118/45 (69) 100 09/26/18 22:49 62 14 100 Mechanical Ventilator 30 09/26/18 22:35 55 14 100 Mechanical Ventilator 30 09/26/18 22:35 62 14 30 09/26/18 22:00 56 14 139/46 (77) 100 09/26/18 21:00 57 14 103/45 (64) 100 09/26/18 20:43 56 14 30 09/26/18 20:00 98.8 66 22 124/49 (74) 100 09/26/18 20:00 30 09/26/18 20:00 67 09/26/18 20:00 Mechanical Ventilator 09/26/18 19:11 70 23 98 Mechanical Ventilator 30 09/26/18 19:11 Mechanical Ventilator 30 09/26/18 19:11 Mechanical Ventilator 30 09/26/18 19:10 72 14 30 09/26/18 19:00 76 26 123/48 (73) 98 09/26/18 18:00 77 16 113/44 (67) 97 09/26/18 17:00 97 20 138/59 (85) 97 09/26/18 16:58 79 14 30 09/26/18 16:00 Mechanical Ventilator 09/26/18 16:00 66 09/26/18 16:00 98.6 62 14 113/48 (69) 100 09/26/18 16:00 30 09/26/18 15:33 65 14 100 Mechanical Ventilator 30 09/26/18 15:16 65 14 30 09/26/18 15:16 65 14 99 Mechanical Ventilator 30 09/26/18 15:00 68 16 114/50 (71) 97 09/26/18 14:00 66 14 116/53 (74) 99 09/26/18 13:21 68 14 30 09/26/18 13:00 66 14 116/53 (74) 99 09/26/18 12:00 30 09/26/18 12:00 98.6 67 13 117/54 (75) 99 09/26/18 12:00 Mechanical Ventilator 09/26/18 12:00 66 Intake and Output 09/26/18 09/27/18 19:00 07:00 Intake Total 1142.5 ml 1225.0 ml Output Total 1290 ml 1800 ml Balance -147.5 ml -575.0 ml Intake Free Water 330 ml 300 ml IV Total 647.5 ml 925.0 ml Tube Feeding 165 ml 0 ml Output Urine Total 1290 ml 1800 ml Laboratory Tests 09/27/18 04:10: White Blood Count 6.5, Red Blood Count 4.13L, Hemoglobin 13.0, Hematocrit 39.7, Mean Corpuscular Volume 96, Mean Corpuscular Hemoglobin 31.5H, Mean Corpuscular Hemoglobin Concent 32.7, Red Cell Distribution Width 13.7, Platelet Count 506H, Mean Platelet Volume 5.5L, Neutrophils (%) (Auto) 63.5, Lymphocytes (%) (Auto) 26.9, Monocytes (%) (Auto) 6.7, Eosinophils (%) (Auto) 2.1, Basophils (%) (Auto ) 0.8, Sodium Level 136, Potassium Level 4.5, Chloride Level 104, Carbon Dioxide Level 23, Anion Gap 9, Blood Urea Nitrogen 5L, Creatinine 0.6, Estimat Glomerular Filtration Rate , Glucose Level 214H, Calcium Level 8.8 09/27/18 10:05: Arterial Blood pH 7.529H, Arterial Blood Partial Pressure CO2 27.1L, Arterial Blood Partial Pressure O2 108.7H, Arterial Blood HCO3 22.1, Arterial Blood Oxygen Saturation 98.0, Arterial Blood Base Excess 0.5, Ray Test Positive Height (Feet): 5 Height (Inches): 3.00 Weight (Pounds): 123 General Appearance: moderate distress EENT: PERRL/EOMI Neck: non-tender Cardiovascular: normal rate Respiratory/Chest: lungs clear Abdomen: non tender Neurologic: motor weakness Skin: normal pigmentation Geovanny Jerez MD Sep 27, 2018 11:38
--- NOTE | 2018-09-27 11:47 | NUR ---
RD ASSESSMENT & RECOMMENDATIONS SEE CARE ACTIVITY FOR COMPLETE ASSESSMENT DAILY ESTIMATED NEEDS: Needs based on Critical care, sepsis, wound, DM 53.6kg 25-32 kcals/kg 0529-7874 total kcals 1.25-2 g protein/kg 67-107 g total protein 25-32ml/kcal mL/kg 8007-2100 total fluid mLs NUTRITION DIAGNOSIS: 1) Swallowing difficulty R/T dysphagia, CVA as evidenced by PEG dependent, now orally intubated. 2) Increased kcal and pro needs r/t sepsis and wound healing as evidenced by elev BG and POC (200-400's-> 153 217 291 202 143, elev WBC (15.7 -> now wnl), febrile, elev Na (148-> wnl), sacral wound/ unstageable per MD. CURRENT TF: Glucerna 1.2 @55 ml/hr x 24 hrs ON HOLD FOR WEANING ENTERAL NUTRITION RECOMMENDATIONS: Glucerna 1.2 @55ml/hr x24 hrs to provide 1320ml, 1584 kcal, 79g prot, 1063ml free H2O - As able, maintain Glucerna 1.2 @55ml/hr (meets 100% est kcal and prot needs, for improved BG control) - HOB over 30 degrees - Flush per MD-> 150q6 for added 600ml free fluid per day (1063ml from TF + 600ml flushes= 1663ml free fluid per day). ADDITIONAL RECOMMENDATIONS: 1) Monitor hydration status -> now improved 2) Obtain an accurate calibrated bed scale wt 3) Lytes daily on TF and lasix/ replete as needed 4) Monitor BGs closely, need to increase Levemir (BGs mostly >150) 5) Sacral wound: add AYDEE BID via PEG daily continue Vit C 250mg BID daily via GT .
--- NOTE | 2018-09-27 11:56 | NUR ---
SS note This Sw f/u with brother who continues to request treatment, full code. This SW will meet again with brother this afternoon, at 2 P.M regarding plan of care for patient.
--- NOTE | 2018-09-27 12:27 | NUR ---
NURSE NOTES: Patient back on AC mode. VSS. O2 st 100%. No acute distress noted.
--- NOTE | 2018-09-27 12:34 | NUR ---
RESPIRATORY NOTES: Weaning stopped at 1320. Patient tolerated well. ABG drawn during SBT.
--- NOTE | 2018-09-27 13:02 | NUR ---
NURSE NOTES: Left a message to pt's brother, Ryan, awaiting for a call back.
--- NOTE | 2018-09-27 13:52 | Nephrology Progress Note ---
Assessment/Plan Problem List: (1) KEL (acute kidney injury) (2) Respiratory failure (3) Dehydration (4) Electrolyte imbalance (5) G tube feedings (6) Hypokalemia (7) CVA, old, hemiparesis (8) DM (diabetes mellitus) Plan failing weaning- being tried again today antibiotics Pulm support correct lytes BS and BP check and monitor per consultants Subjective ROS Limited/Unobtainable: Yes Objective Objective Last 24 Hour Vital Signs Date Time Temp Pulse Resp B/P (MAP) Pulse Ox O2 Delivery O2 Flow Rate FiO2 09/27/18 13:00 57 14 106/48 (67) 99 09/27/18 12:33 62 14 30 30 09/27/18 12:00 30 09/27/18 12:00 Mechanical Ventilator 09/27/18 12:00 66 09/27/18 12:00 98.6 65 20 112/50 (70) 98 09/27/18 11:29 Mechanical Ventilator 30 09/27/18 11:29 Mechanical Ventilator 30 09/27/18 11:29 61 22 30 30 09/27/18 11:00 60 20 121/44 (69) 100 09/27/18 10:00 61 22 108/69 (82) 98 09/27/18 09:22 99 09/27/18 09:06 63 21 30 30 09/27/18 09:00 61 21 115/48 (70) 99 09/27/18 08:00 65 09/27/18 08:00 98.6 61 21 113/46 (68) 99 09/27/18 08:00 30 09/27/18 08:00 Mechanical Ventilator 09/27/18 07:48 99 22 30 30 09/27/18 07:47 Mechanical Ventilator 30 09/27/18 07:47 Mechanical Ventilator 30 09/27/18 07:00 62 15 125/44 (71) 98 09/27/18 06:00 60 14 112/46 (68) 99 09/27/18 05:00 60 14 123/45 (71) 100 09/27/18 04:57 59 14 30 09/27/18 04:00 30 09/27/18 04:00 Mechanical Ventilator 09/27/18 04:00 98.6 60 14 119/45 (69) 100 09/27/18 03:19 63 09/27/18 03:00 56 14 153/58 (89) 100 09/27/18 02:53 55 14 100 Mechanical Ventilator 30 09/27/18 02:40 59 14 100 Mechanical Ventilator 30 09/27/18 02:39 59 14 30 09/27/18 02:00 58 16 139/49 (79) 100 09/27/18 01:00 61 21 133/46 (75) 100 09/27/18 00:50 63 14 30 09/27/18 00:00 Mechanical Ventilator 09/27/18 00:00 98.6 73 15 142/58 (86) 99 09/26/18 23:24 58 09/26/18 23:15 60 14 100 09/26/18 23:00 64 21 118/45 (69) 100 09/26/18 22:49 62 14 100 Mechanical Ventilator 30 09/26/18 22:35 55 14 100 Mechanical Ventilator 30 09/26/18 22:35 62 14 30 09/26/18 22:00 56 14 139/46 (77) 100 09/26/18 21:00 57 14 103/45 (64) 100 09/26/18 20:43 56 14 30 09/26/18 20:00 98.8 66 22 124/49 (74) 100 09/26/18 20:00 30 09/26/18 20:00 67 09/26/18 20:00 Mechanical Ventilator 09/26/18 19:11 70 23 98 Mechanical Ventilator 30 09/26/18 19:11 Mechanical Ventilator 30 09/26/18 19:11 Mechanical Ventilator 30 09/26/18 19:10 72 14 30 09/26/18 19:00 76 26 123/48 (73) 98 09/26/18 18:00 77 16 113/44 (67) 97 09/26/18 17:00 97 20 138/59 (85) 97 09/26/18 16:58 79 14 30 09/26/18 16:00 Mechanical Ventilator 09/26/18 16:00 66 09/26/18 16:00 98.6 62 14 113/48 (69) 100 09/26/18 16:00 30 09/26/18 15:33 65 14 100 Mechanical Ventilator 30 09/26/18 15:16 65 14 30 09/26/18 15:16 65 14 99 Mechanical Ventilator 30 09/26/18 15:00 68 16 114/50 (71) 97 09/26/18 14:00 66 14 116/53 (74) 99 Intake and Output 09/26/18 09/27/18 19:00 07:00 Intake Total 1142.5 ml 1225.0 ml Output Total 1290 ml 1800 ml Balance -147.5 ml -575.0 ml Intake Free Water 330 ml 300 ml IV Total 647.5 ml 925.0 ml Tube Feeding 165 ml 0 ml Output Urine Total 1290 ml 1800 ml Laboratory Tests 09/27/18 04:10: White Blood Count 6.5, Red Blood Count 4.13L, Hemoglobin 13.0, Hematocrit 39.7, Mean Corpuscular Volume 96, Mean Corpuscular Hemoglobin 31.5H, Mean Corpuscular Hemoglobin Concent 32.7, Red Cell Distribution Width 13.7, Platelet Count 506H, Mean Platelet Volume 5.5L, Neutrophils (%) (Auto) 63.5, Lymphocytes (%) (Auto) 26.9, Monocytes (%) (Auto) 6.7, Eosinophils (%) (Auto) 2.1, Basophils (%) (Auto ) 0.8, Sodium Level 136, Potassium Level 4.5, Chloride Level 104, Carbon Dioxide Level 23, Anion Gap 9, Blood Urea Nitrogen 5L, Creatinine 0.6, Estimat Glomerular Filtration Rate , Glucose Level 214H, Calcium Level 8.8 09/27/18 10:05: Arterial Blood pH 7.529H, Arterial Blood Partial Pressure CO2 27.1L, Arterial Blood Partial Pressure O2 108.7H, Arterial Blood HCO3 22.1, Arterial Blood Oxygen Saturation 98.0, Arterial Blood Base Excess 0.5, Ray Test Positive Height (Feet): 5 Height (Inches): 3.00 Weight (Pounds): 123 EENT: other - vented Cardiovascular: normal rate Respiratory/Chest: decreased breath sounds Abdomen: distended Objective no change Dwayne Vernon MD Sep 27, 2018 13:52
--- NOTE | 2018-09-27 14:48 | Infectious Diseases Prog Note ---
Assessment/Plan Assessment/Plan ASSESSMENT AND PLAN: 1. 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 ICU care. 3. Skin care protocol. 4. History of CVA and TIA, and aspiration risk. 5. Dementia. 6. Hypertension. 7. Blood pressure treatment per primary. 8. Acute kidney injury. 9. Weakness. 10. Hemiplegia. 11. Dysphagia, G-tube. 12. Encephalopathy. 13. No known drug allergies. 14. Social history is negative. 15. Family history is noncontributory. 16. MAR was noted. 17. Case discussed with RN. 18. Continue treatment per primary consultants. 19. Notes and records were noted. Orders were entered. 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, vre colonization Subjective Constitutional: Reports: fatigue HEENT: Reports: congestion Respiratory: Reports: shortness of breath Cardiovascular: Reports: other - no pressors ; Denies: chest pain Gastrointestinal/Abdominal: Denies: nausea, vomiting, diarrhea Genitourinary: Reports: other - + taylro Neurologic: Reports: other - weak and lethargic Psychiatric: Reports: other - NA Skin: Denies: rash Hematologic: Denies: bleeding Musculoskeletal: Reports: other - NA Allergies: Coded Allergies: No Known Allergies (Unverified , 02/04/17) Objective Vital Signs Last 24 Hour Vital Signs Date Time Temp Pulse Resp B/P (MAP) Pulse Ox O2 Delivery O2 Flow Rate FiO2 09/27/18 14:00 56 14 113/49 (70) 98 09/27/18 13:00 57 14 106/48 (67) 99 09/27/18 12:33 62 14 30 30 09/27/18 12:00 30 09/27/18 12:00 Mechanical Ventilator 09/27/18 12:00 66 09/27/18 12:00 98.6 65 20 112/50 (70) 98 09/27/18 11:29 Mechanical Ventilator 30 09/27/18 11:29 Mechanical Ventilator 30 09/27/18 11:29 61 22 30 30 09/27/18 11:00 60 20 121/44 (69) 100 09/27/18 10:00 61 22 108/69 (82) 98 09/27/18 09:22 99 09/27/18 09:06 63 21 30 30 09/27/18 09:00 61 21 115/48 (70) 99 09/27/18 08:00 65 09/27/18 08:00 98.6 61 21 113/46 (68) 99 09/27/18 08:00 30 09/27/18 08:00 Mechanical Ventilator 09/27/18 07:48 99 22 30 30 09/27/18 07:47 Mechanical Ventilator 30 09/27/18 07:47 Mechanical Ventilator 30 09/27/18 07:00 62 15 125/44 (71) 98 09/27/18 06:00 60 14 112/46 (68) 99 09/27/18 05:00 60 14 123/45 (71) 100 09/27/18 04:57 59 14 30 09/27/18 04:00 30 09/27/18 04:00 Mechanical Ventilator 09/27/18 04:00 98.6 60 14 119/45 (69) 100 09/27/18 03:19 63 09/27/18 03:00 56 14 153/58 (89) 100 09/27/18 02:53 55 14 100 Mechanical Ventilator 30 09/27/18 02:40 59 14 100 Mechanical Ventilator 09/27/18 02:39 59 14 30 09/27/18 02:00 58 16 139/49 (79) 100 09/27/18 01:00 61 21 133/46 (75) 100 09/27/18 00:50 63 14 30 09/27/18 00:00 Mechanical Ventilator 09/27/18 00:00 98.6 73 15 142/58 (86) 99 09/26/18 23:24 58 09/26/18 23:15 60 14 100 09/26/18 23:00 64 21 118/45 (69) 100 09/26/18 22:49 62 14 100 Mechanical Ventilator 30 09/26/18 22:35 55 14 100 Mechanical Ventilator 30 09/26/18 22:35 62 14 30 09/26/18 22:00 56 14 139/46 (77) 100 09/26/18 21:00 57 14 103/45 (64) 100 09/26/18 20:43 56 14 30 09/26/18 20:00 98.8 66 22 124/49 (74) 100 09/26/18 20:00 30 09/26/18 20:00 67 09/26/18 20:00 Mechanical Ventilator 09/26/18 19:11 70 23 98 Mechanical Ventilator 30 09/26/18 19:11 Mechanical Ventilator 30 09/26/18 19:11 Mechanical Ventilator 30 09/26/18 19:10 72 14 30 09/26/18 19:00 76 26 123/48 (73) 98 09/26/18 18:00 77 16 113/44 (67) 97 09/26/18 17:00 97 20 138/59 (85) 97 09/26/18 16:58 79 14 30 09/26/18 16:00 Mechanical Ventilator 09/26/18 16:00 66 09/26/18 16:00 98.6 62 14 113/48 (69) 100 09/26/18 16:00 30 09/26/18 15:33 65 14 100 Mechanical Ventilator 30 09/26/18 15:16 65 14 30 09/26/18 15:16 65 14 99 Mechanical Ventilator 30 09/26/18 15:00 68 16 114/50 (71) 97 Height (Feet): 5 Height (Inches): 3.00 Weight (Pounds): 123 General Appearance: other - on vent, no pressors, no change in mental status Respiratory/Chest: crackles/rales, rhonchi - bilaterally Cardiovascular: normal rate, regular rhythm, no gallop/murmur, no JVD Abdomen: normal bowel sounds, soft, non tender, no organomegaly, non distended Genitourinary: other - no taylor Extremities: no cyanosis Skin: no rash Neurologic/Psychiatric: ethyl blender II-XII grossly normal, other - lethargic, weak, on vent Lymphatic: no neck adenopathy Musculoskeletal: no effusion Objective Chest x-ray - 09/15/18 - COMPARISON: Chest x-ray, 09/14/18 933 FINDINGS: Lungs: Bibasilar lung atelectasis/airspace disease. Mild interstitial prominence. Pleural space: Small right pleural effusion, slightly worse. Improved small left pleural effusion. No pneumothorax. Heart: Unremarkable. No cardiomegaly. Mediastinum: Unremarkable. Bones/joints: Unremarkable. Tubes, lines and devices: Stable endotracheal tube. 09/18/18 - Chest x-ray - IMPRESSION: 1. Stable endotracheal tube. 2. Bibasilar lung atelectasis/airspace disease. Mild interstitial prominence. 3. Small right pleural effusion, slightly worse. Improved small left pleural effusion. Comparison: 09/15/2018 A single view chest radiograph was obtained. Findings: Endotracheal tube remains in good position. Pulmonary vascular congestion is present. Basilar atelectasis noted. Small bilateral pleural effusions are not excluded. IMPRESSION: Pulmonary vascular congestion Chest x-ray - 09/22/18 - IMPRESSION: 1. Subsegmental atelectasis versus infiltrates in bilateral lung bases, not significantly changed compared to the prior exam. 2. Possible small bilateral layering pleural effusions, also not significantly changed. 3. Mildly increased interstitial markings. This is nonspecific but may suggest mild pulmonary vascular congestion or a mild interstitial pneumonitis. Microbiology Date/Time Source Procedure Growth Status 09/21/18 19:00 Blood Blood Culture - Preliminary NO GROWTH AFTER 4 DAYS Resulted 09/21/18 23:40 Sputum Gram Stain - Final Complete 09/21/18 23:40 Sputum Culture - Final Klebsiella Ornithinolytica Staphylococcus Aureus - Mrsa Usual Respiratory Charmaine Complete 09/16/18 16:15 Stool Clostridium difficile Toxin Assay - Final Complete 09/22/18 07:20 Urine,Clean Catch Urine Culture - Final Nandini Glabrata Complete 09/14/18 09:00 Rectum VRE Culture - Final Enterococcus Faecium - Vre Complete Laboratory Tests Test 09/27/18 04:10 09/27/18 10:05 White Blood Count 6.5 K/UL (4.8-10.8) Red Blood Count 4.13 M/UL (4.20-5.40) L Hemoglobin 13.0 G/DL (12.0-16.0) Hematocrit 39.7 % (37.0-47.0) Mean Corpuscular Volume 96 FL (80-99) Mean Corpuscular Hemoglobin 31.5 PG (27.0-31.0) H Mean Corpuscular Hemoglobin Concent 32.7 G/DL (32.0-36.0) Red Cell Distribution Width 13.7 % (11.6-14.8) Platelet Count 506 K/UL (150-450) H Mean Platelet Volume 5.5 FL (6.5-10.1) L Neutrophils (%) (Auto) 63.5 % (45.0-75.0) Lymphocytes (%) (Auto) 26.9 % (20.0-45.0) Monocytes (%) (Auto) 6.7 % (1.0-10.0) Eosinophils (%) (Auto) 2.1 % (0.0-3.0) Basophils (%) (Auto) 0.8 % (0.0-2.0) Sodium Level 136 MMOL/L (136-145) Potassium Level 4.5 MMOL/L (3.5-5.1) Chloride Level 104 MMOL/L (98-107) Carbon Dioxide Level 23 MMOL/L (21-32) Anion Gap 9 mmol/L (5-15) Blood Urea Nitrogen 5 mg/dL (7-18) L Creatinine 0.6 MG/DL (0.55-1.30) Estimat Glomerular Filtration Rate mL/min (>60) Glucose Level 214 MG/DL (74-106) H Calcium Level 8.8 MG/DL (8.5-10.1) Arterial Blood pH 7.529 (7.350-7.450) Arterial Blood Partial Pressure CO2 27.1 mmHg (35.0-45.0) L Arterial Blood Partial Pressure O2 108.7 mmHg (75.0-100.0) H Arterial Blood HCO3 22.1 mmol/L (22.0-26.0) Arterial Blood Oxygen Saturation 98.0 % (95-100) Arterial Blood Base Excess 0.5 (-2-2) Ray Test Positive Current Medications Medications (Trade) Dose Ordered Sig/Wayne Route PRN Reason Start Time Stop Time Status Last Admin Dose Admin Acetaminophen (Tylenol) 650 mg Q4H PRN GT Mild Pain/Temp > 100.5 09/23/18 07:15 10/23/18 07:14 Acetylcysteine (Mucomyst) 100 mg Q4HRT [facility] 09/21/18 19:00 10/21/18 18:59 09/27/18 02:40 Albuterol/ Ipratropium (Albuterol/ Ipratropium) 3 ml Q4HRT [facility] 09/26/18 23:00 10/01/18 22:59 09/27/18 02:40 Artificial Tears (Akwa-Tears) 1 drop Q4H PRN BOTH EYES Dry Eyes 09/18/18 12:30 10/18/18 12:29 Ascorbic Acid (Vitamin C) 250 mg TWICE A DAY ORAL 09/18/18 18:00 10/18/18 17:59 09/27/18 08:46 Bisacodyl (Dulcolax) 10 mg DAILYPRN PRN RECTAL Constipation 09/14/18 12:45 10/14/18 12:44 Ceftriaxone Sodium 1 gm/ Dextrose 50 ml @ 100 mls/hr Q24H IVPB 09/25/18 21:00 10/02/18 20:59 09/26/18 20:00 Chlorhexidine Gluconate (Kamla-Hex 2%) 1 applic DAILY@2000 TOPIC 09/17/18 20:00 10/17/18 19:59 09/26/18 19:44 Dextrose (Dextrose 50%) 25 ml Q30M PRN IV Hypoglycemia 09/14/18 12:45 10/14/18 12:44 Dextrose (Dextrose 50%) 50 ml Q30M PRN IV Hypoglycemia 09/14/18 12:45 10/14/18 12:44 Dextrose/ Electrolytes 1,000 ml @ 50 mls/hr Q20H IV 09/23/18 11:00 10/23/18 10:59 09/27/18 08:47 Diphenhydramine HCl (Benadryl) 25 mg Q6H PRN ORAL Itching/Pruritis 09/14/18 12:45 10/14/18 12:44 Docusate Sodium (Colace) 100 mg TWICE A DAY GT 09/25/18 09:00 10/25/18 08:59 09/27/18 08:47 Furosemide (Lasix) 20 mg DAILY GT 09/23/18 09:00 10/22/18 08:59 09/27/18 08:47 Heparin Sodium (Porcine) (Heparin 5000 units/ml) 5,000 units EVERY 12 HOURS SUBQ 09/14/18 21:00 10/14/18 20:59 09/25/18 10:08 Insulin Aspart (NovoLOG) Q6HR SUBQ 09/14/18 16:00 10/14/18 15:59 09/27/18 06:13 Insulin Detemir (Levemir) 12 units BEDTIME SUBQ 09/17/18 21:00 10/17/18 20:59 09/26/18 20:01 Magnesium Hydroxide (Mom) 30 ml HSPRN PRN ORAL Constipation 09/14/18 12:45 10/14/18 12:44 Metoclopramide HCl (Reglan) 10 mg Q8H PRN IVP Nausea & Vomiting 09/17/18 12:30 10/17/18 12:29 Ondansetron HCl (Zofran) 4 mg Q6H PRN IVP Nausea & Vomiting 09/14/18 12:45 10/14/18 12:44 09/17/18 07:41 Pantoprazole (Protonix) 40 mg DAILY IV 09/15/18 09:00 10/15/18 08:59 09/27/18 08:47 Vancomycin HCl (Vanco rx to dose) 1 ea DAILY PRN MISC Per rx protocol 09/26/18 12:30 10/26/18 12:29 Vancomycin HCl/ Dextrose 275 ml @ 137.5 mls/ hr Q24H IVPB 09/27/18 01:00 10/02/18 00:59 09/27/18 00:54 Milton Valladares MD Sep 27, 2018 14:48
--- NOTE | 2018-09-27 14:51 | Surgery Progress Note ---
Surgery Progress Note Subjective Additional Comments still not ready for extubation continuing weaning trials ? trach Objective Last 24 Hour Vital Signs Date Time Temp Pulse Resp B/P (MAP) Pulse Ox O2 Delivery O2 Flow Rate FiO2 09/27/18 14:00 56 14 113/49 (70) 98 09/27/18 13:00 57 14 106/48 (67) 99 09/27/18 12:33 62 14 30 30 09/27/18 12:00 30 09/27/18 12:00 Mechanical Ventilator 09/27/18 12:00 66 09/27/18 12:00 98.6 65 20 112/50 (70) 98 09/27/18 11:29 Mechanical Ventilator 30 09/27/18 11:29 Mechanical Ventilator 30 09/27/18 11:29 61 22 30 30 09/27/18 11:00 60 20 121/44 (69) 100 09/27/18 10:00 61 22 108/69 (82) 98 09/27/18 09:22 99 09/27/18 09:06 63 21 30 30 09/27/18 09:00 61 21 115/48 (70) 99 09/27/18 08:00 65 09/27/18 08:00 98.6 61 21 113/46 (68) 99 09/27/18 08:00 30 09/27/18 08:00 Mechanical Ventilator 09/27/18 07:48 99 22 30 30 09/27/18 07:47 Mechanical Ventilator 30 09/27/18 07:47 Mechanical Ventilator 30 09/27/18 07:00 62 15 125/44 (71) 98 09/27/18 06:00 60 14 112/46 (68) 99 09/27/18 05:00 60 14 123/45 (71) 100 09/27/18 04:57 59 14 30 09/27/18 04:00 30 09/27/18 04:00 Mechanical Ventilator 09/27/18 04:00 98.6 60 14 119/45 (69) 100 09/27/18 03:19 63 09/27/18 03:00 56 14 153/58 (89) 100 09/27/18 02:53 55 14 100 Mechanical Ventilator 30 09/27/18 02:40 59 14 100 Mechanical Ventilator 30 09/27/18 02:39 59 14 30 09/27/18 02:00 58 16 139/49 (79) 100 09/27/18 01:00 61 21 133/46 (75) 100 09/27/18 00:50 63 14 30 09/27/18 00:00 Mechanical Ventilator 09/27/18 00:00 98.6 73 15 142/58 (86) 99 09/26/18 23:24 58 09/26/18 23:15 60 14 100 09/26/18 23:00 64 21 118/45 (69) 100 09/26/18 22:49 62 14 100 Mechanical Ventilator 30 09/26/18 22:35 55 14 100 Mechanical Ventilator 30 09/26/18 22:35 62 14 30 09/26/18 22:00 56 14 139/46 (77) 100 09/26/18 21:00 57 14 103/45 (64) 100 09/26/18 20:43 56 14 30 09/26/18 20:00 98.8 66 22 124/49 (74) 100 09/26/18 20:00 30 09/26/18 20:00 67 09/26/18 20:00 Mechanical Ventilator 09/26/18 19:11 70 23 98 Mechanical Ventilator 30 09/26/18 19:11 Mechanical Ventilator 30 09/26/18 19:11 Mechanical Ventilator 30 09/26/18 19:10 72 14 30 09/26/18 19:00 76 26 123/48 (73) 98 09/26/18 18:00 77 16 113/44 (67) 97 09/26/18 17:00 97 20 138/59 (85) 97 09/26/18 16:58 79 14 30 09/26/18 16:00 Mechanical Ventilator 09/26/18 16:00 66 09/26/18 16:00 98.6 62 14 113/48 (69) 100 09/26/18 16:00 30 09/26/18 15:33 65 14 100 Mechanical Ventilator 30 09/26/18 15:16 65 14 30 09/26/18 15:16 65 14 99 Mechanical Ventilator 30 09/26/18 15:00 68 16 114/50 (71) 97 I&O Intake and Output 09/26/18 09/27/18 19:00 07:00 Intake Total 1142.5 ml 1225.0 ml Output Total 1290 ml 1800 ml Balance -147.5 ml -575.0 ml Intake Free Water 330 ml 300 ml IV Total 647.5 ml 925.0 ml Tube Feeding 165 ml 0 ml Output Urine Total 1290 ml 1800 ml Dressing: saturated Wound: other Cardiovascular: RSR Respiratory: clear, decreased breath sounds Abdomen: soft, present bowel sounds, non-distended Extremities: no cyanosis Laboratory Tests Test 09/27/18 04:10 09/27/18 10:05 White Blood Count 6.5 K/UL (4.8-10.8) Red Blood Count 4.13 M/UL (4.20-5.40) L Hemoglobin 13.0 G/DL (12.0-16.0) Hematocrit 39.7 % (37.0-47.0) Mean Corpuscular Volume 96 FL (80-99) Mean Corpuscular Hemoglobin 31.5 PG (27.0-31.0) H Mean Corpuscular Hemoglobin Concent 32.7 G/DL (32.0-36.0) Red Cell Distribution Width 13.7 % (11.6-14.8) Platelet Count 506 K/UL (150-450) H Mean Platelet Volume 5.5 FL (6.5-10.1) L Neutrophils (%) (Auto) 63.5 % (45.0-75.0) Lymphocytes (%) (Auto) 26.9 % (20.0-45.0) Monocytes (%) (Auto) 6.7 % (1.0-10.0) Eosinophils (%) (Auto) 2.1 % (0.0-3.0) Basophils (%) (Auto) 0.8 % (0.0-2.0) Sodium Level 136 MMOL/L (136-145) Potassium Level 4.5 MMOL/L (3.5-5.1) Chloride Level 104 MMOL/L (98-107) Carbon Dioxide Level 23 MMOL/L (21-32) Anion Gap 9 mmol/L (5-15) Blood Urea Nitrogen 5 mg/dL (7-18) L Creatinine 0.6 MG/DL (0.55-1.30) Estimat Glomerular Filtration Rate mL/min (>60) Glucose Level 214 MG/DL (74-106) H Calcium Level 8.8 MG/DL (8.5-10.1) Arterial Blood pH 7.529 (7.350-7.450) Arterial Blood Partial Pressure CO2 27.1 mmHg (35.0-45.0) L Arterial Blood Partial Pressure O2 108.7 mmHg (75.0-100.0) H Arterial Blood HCO3 22.1 mmol/L (22.0-26.0) Arterial Blood Oxygen Saturation 98.0 % (95-100) Arterial Blood Base Excess 0.5 (-2-2) Ray Test Positive Plan Problems: (1) Sepsis Assessment & Plan: 77-year-old female presented to [facility] in distress found to be septic with leukocytosis tachycardia and requiring ventilatory support. Patient's labs noted and significant abnormal. Lactic acidosis. Severe dehydration. Admit to intensive care unit IV fluids Vent support - cont with weaning trial. looks okay for extubation soon IV antibiotics as per infectious disease Trend labs A.m. chest x-ray okay for tube feeds ICU care Leukocytosis improving. Labs improving. US noted wean vent for extubation We will follow with recommendations Thank you for allowing me to participate in patient's care (2) Lactic acid acidosis (3) Upper sacral area unstageable pressure ulcer Assessment & Plan: Loose dry scab noted to L ear and easily removed. Skin is clean and intact. Full thickness sacral pressure injury with slough centrally at sacrococcygeal area with surrounding pink granulation.(L)Area of slough measures (L)1.4cm x (W)1cm.Total pressure injury measures (L)4cm x (W)5.5cm. R and L heels are soft ,pink and each heel are easily blanchable. Tx.Plan: Cleanse sacral wound with saline. Apply Therahoney.Apply Moisture Barrier Paste to periwound. Cover with Optifoam drsg. Change every 3 days and prn. Apply Cavilon Skin Barrier to both heels. Cover each heel with Opifoam drsg. Change every 7 days and prn. APM/LOU Mattress overlay. Reposition at least every 2hours or as tolerated. Off-load heels with pillow. (4) G tube feedings Assessment & Plan: DAILY ESTIMATED NEEDS: Needs based on Critical care, sepsis, wound, DM 53.6kg 25-32 kcals/kg [id number] total kcals 1.25-2 g protein/kg 67-107 g total protein 25-32ml/kcal mL/kg [id number] total fluid mLs NUTRITION DIAGNOSIS: 1) Swallowing difficulty R/T dysphagia, CVA as evidenced by PEG dependent, now orally intubated. 2) Increased kcal and pro needs r/t sepsis and wound healing as evidenced by elev BG and POC (200-400's), elev WBC (15.7), febrile (Tmax 100.9), elev Na (148), sacral wound/ unstageable per MD. CURRENT TF: Glucerna 1.2 @60 hrs ENTERAL NUTRITION RECOMMENDATIONS: Glucerna 1.2 @55ml/hr x24 hrs + Prosource x1 daily to provide 1320ml, 1584 kcal, 79g + 11g pro, 1063ml free H2O - Maintain Glucerna 1.2 -> Rec to REDUCE RATE to goal of 55ml/hr - Add Prosource x1 daily to better meet est pro needs - HOB over 30 degrees - Flush per MD-> 150q6 for added 600ml free fluid per day (1063ml from TF + 600ml flushes= 1663ml free fluid per day). ------ ADDITIONAL RECOMMENDATIONS: 1) Monitor hydration status 2) Obtain an accurate calibrated bed scale wt 3) Lytes daily on TF/ replete as needed 4) Rec increase hypoglycemic agents for improved BG control 5) Sacral wound: add AYDEE BID via PEG daily + Vit C 250mg BID daily via GT (5) Respiratory failure (6) Ventilator dependence Akhil Jackson Sep 27, 2018 14:51
--- NOTE | 2018-09-27 15:10 | NUR ---
NURSE NOTES: patient's brother, Ryan, was at bedside, spoke with charge nurse, Li. Family agreed to keep the patient as full code.
--- NOTE | 2018-09-27 15:16 | NUR ---
NURSE NOTES: Patient is awake, unable to follow commands, resting in bed comfortably. VSS. no acute distress noted. Patient was turned and repositioned. patient kept clean and dry. SB 55-SR 60s noted on the monitor. Oral care and taylor care provided. patient's son at bedside.
--- NOTE | 2018-09-27 15:26 | NUR ---
NURSE NOTES: Dr. Swift here to see the patient. Per MD, patient for extubation today and hold tube feeding and decrease IVF to 40ml/hr. Patient's son, Osei, at bedside, agreed with the plan.
--- NOTE | 2018-09-27 15:27 | NUR ---
SS note Son currently at bedside with patient who appears supportive. Son explains brother was here and went home already. Emotional support provided to son, who is anticipating patient to breath on her own. This SW recommends M.D to update current prognosis and appropriate treatment for patient.
--- NOTE | 2018-09-27 15:29 | Hematology/Onc Progress Note ---
Assessment/Plan Assessment/Plan Assessment and Recs: # Thrombocytopenia --> now with thrombocytosis - potential causes multifactorial , evaluate liver and viral etiologies to begin, also could be related to underlying medications patient has received. --> Hep panel and HIV show neg results --> US abd shows no cirrhosis or hsm --> Peripheral smear ordered to evaluate for blasts /schistocytes --> abx and other meds have been reviewed --> ok for ppx if plt >50k w/ either heparin or lovenox --> Transfuse if Plt < 20k and fever, or if Plt < 10k without fever --> trend plts --> 182k-->160-->140-->119-->140k-->200k->529->527k->555k->509k --> asa but not at this time --> meds reviewed and may be 2/2 vanc and amikacin but at this time ok to continue since borderline # Anemia of iron deficiency, on iron now --> Anemia workup has been ordered, rule out gi bleed, shows AID --> No evidence of hemolysis is noted, peripheral smear has been reviewed --> Hgb goal >7. Transfuse prn. --> Iron to continue --> Medications have been reviewed --> hgb 12-->10.7-->11.3-->10.8-->11->12 # Dysphagia and now s/p nG tube feedings --> as per gi, ng tube feedsings # Respo failure on vent --> per pulm/cc, on sbt, difficult weaning --> recs reviewed/trach? # Dehydration --> on ivfs, currently off per renal # Sepsis --> abx per id --> adjust as needed --> reviewed(whitney/vanc)--> ctx/vanc # DVT ppx with heparin sq The timing of this note does not necessarily reflect the time of the patient was seen. GREATLY APPRECIATE CONSULTATION. Subjective Constitutional: Denies: no symptoms, chills, fever, malaise, weakness, other HEENT: Denies: no symptoms, eye pain, blurred vision, tearing, double vision, ear pain, ear discharge, nose pain, nose congestion, throat pain, throat swelling, mouth pain, mouth swelling, other Respiratory: Denies: no symptoms, cough, shortness of breath, SOB with excertion, SOB at rest, sputum, wheezing, other Genitourinary: Denies: no symptoms, burning, discharge, frequency, flank pain, hematuria, incontinence, pain, urgency, other Neurologic/Psychiatric: Denies: no symptoms, anxiety, depressed, emotional problems, headache, numbness, paresthesia, pre-existing deficit, seizure, tingling, tremors, weakness, other Endocrine: Denies: no symptoms, excessive sweating, flushing, intolerance to cold, intolerance to heat, increased hunger, increased thirst, increased urine, unexplained weight gain, unexplained weight loss, other Allergies: Coded Allergies: No Known Allergies (Unverified , 02/04/17) Subjective 09/18: is on iron, as well as broad spectrum abx, labs reviewed 09/19: no events to report, angie Robertson rn, tfs ongoing via ng, on vent to wean protocol 09/20: remains intubated, unchanged 09/21: in icu, no major changes, no f/c, no night sweats 09/23: remains in the icu, considering extubation, no f/c noted 09/24: patient unable to be weaned, para was done, daily sbt 09/25: on abx, on vent, taylor, draining well, peg ongong tfs 09/26: gtf on hold, no fevers or chills, hgb better, weaning trial 09/27: still on vent, no major changes, no f/c, seen by pulm Objective Objective Current Medications Medications (Trade) Dose Ordered Sig/Wayne Route PRN Reason Start Time Stop Time Status Last Admin Dose Admin Acetaminophen (Tylenol) 650 mg Q4H PRN GT Mild Pain/Temp > 100.5 09/23/18 07:15 10/23/18 07:14 Acetylcysteine (Mucomyst) 100 mg Q4HRT [facility] 09/21/18 19:00 10/21/18 18:59 09/27/18 02:40 Albuterol/ Ipratropium (Albuterol/ Ipratropium) 3 ml Q4HRT [facility] 09/26/18 23:00 10/01/18 22:59 09/27/18 02:40 Artificial Tears (Akwa-Tears) 1 drop Q4H PRN BOTH EYES Dry Eyes 09/18/18 12:30 10/18/18 12:29 Ascorbic Acid (Vitamin C) 250 mg TWICE A DAY ORAL 09/18/18 18:00 10/18/18 17:59 09/27/18 08:46 Bisacodyl (Dulcolax) 10 mg DAILYPRN PRN RECTAL Constipation 09/14/18 12:45 10/14/18 12:44 Ceftriaxone Sodium 1 gm/ Dextrose 50 ml @ 100 mls/hr Q24H IVPB 09/25/18 21:00 10/02/18 20:59 09/26/18 20:00 Chlorhexidine Gluconate (Kamla-Hex 2%) 1 applic DAILY@2000 TOPIC 09/17/18 20:00 10/17/18 19:59 09/26/18 19:44 Dextrose (Dextrose 50%) 25 ml Q30M PRN IV Hypoglycemia 09/14/18 12:45 10/14/18 12:44 Dextrose (Dextrose 50%) 50 ml Q30M PRN IV Hypoglycemia 09/14/18 12:45 10/14/18 12:44 Dextrose/ Electrolytes 1,000 ml @ 50 mls/hr Q20H IV 09/23/18 11:00 10/23/18 10:59 09/27/18 08:47 Diphenhydramine HCl (Benadryl) 25 mg Q6H PRN ORAL Itching/Pruritis 09/14/18 12:45 10/14/18 12:44 Docusate Sodium (Colace) 100 mg TWICE A DAY GT 09/25/18 09:00 10/25/18 08:59 09/27/18 08:47 Furosemide (Lasix) 20 mg DAILY GT 09/23/18 09:00 10/22/18 08:59 09/27/18 08:47 Heparin Sodium (Porcine) (Heparin 5000 units/ml) 5,000 units EVERY 12 HOURS SUBQ 09/14/18 21:00 10/14/18 20:59 09/25/18 10:08 Insulin Aspart (NovoLOG) Q6HR SUBQ 09/14/18 16:00 10/14/18 15:59 09/27/18 06:13 Insulin Detemir (Levemir) 12 units BEDTIME SUBQ 09/17/18 21:00 10/17/18 20:59 09/26/18 20:01 Magnesium Hydroxide (Mom) 30 ml HSPRN PRN ORAL Constipation 09/14/18 12:45 10/14/18 12:44 Metoclopramide HCl (Reglan) 10 mg Q8H PRN IVP Nausea & Vomiting 09/17/18 12:30 10/17/18 12:29 Ondansetron HCl (Zofran) 4 mg Q6H PRN IVP Nausea & Vomiting 09/14/18 12:45 10/14/18 12:44 09/17/18 07:41 Pantoprazole (Protonix) 40 mg DAILY IV 09/15/18 09:00 10/15/18 08:59 09/27/18 08:47 Vancomycin HCl (Vanco rx to dose) 1 ea DAILY PRN MISC Per rx protocol 09/26/18 12:30 10/26/18 12:29 Vancomycin HCl/ Dextrose 275 ml @ 137.5 mls/ hr Q24H IVPB 09/27/18 01:00 10/02/18 00:59 09/27/18 00:54 Last 24 Hour Vital Signs Date Time Temp Pulse Resp B/P (MAP) Pulse Ox O2 Delivery O2 Flow Rate FiO2 09/27/18 15:00 55 14 138/58 (84) 98 09/27/18 14:00 56 14 113/49 (70) 98 09/27/18 13:00 57 14 106/48 (67) 99 09/27/18 12:33 62 14 30 30 09/27/18 12:00 30 09/27/18 12:00 Mechanical Ventilator 09/27/18 12:00 66 09/27/18 12:00 98.6 65 20 112/50 (70) 98 09/27/18 11:29 Mechanical Ventilator 30 09/27/18 11:29 Mechanical Ventilator 30 09/27/18 11:29 61 22 30 30 09/27/18 11:00 60 20 121/44 (69) 100 09/27/18 10:00 61 22 108/69 (82) 98 09/27/18 09:22 99 09/27/18 09:06 63 21 30 30 09/27/18 09:00 61 21 115/48 (70) 99 09/27/18 08:00 65 09/27/18 08:00 98.6 61 21 113/46 (68) 99 09/27/18 08:00 30 09/27/18 08:00 Mechanical Ventilator 09/27/18 07:48 99 22 30 30 09/27/18 07:47 Mechanical Ventilator 30 09/27/18 07:47 Mechanical Ventilator 30 09/27/18 07:00 62 15 125/44 (71) 98 09/27/18 06:00 60 14 112/46 (68) 99 09/27/18 05:00 60 14 123/45 (71) 100 09/27/18 04:57 59 14 30 09/27/18 04:00 30 09/27/18 04:00 Mechanical Ventilator 09/27/18 04:00 98.6 60 14 119/45 (69) 100 09/27/18 03:19 63 09/27/18 03:00 56 14 153/58 (89) 100 09/27/18 02:53 55 14 100 Mechanical Ventilator 30 09/27/18 02:40 59 14 100 Mechanical Ventilator 30 09/27/18 02:39 59 14 30 09/27/18 02:00 58 16 139/49 (79) 100 09/27/18 01:00 61 21 133/46 (75) 100 09/27/18 00:50 63 14 30 09/27/18 00:00 Mechanical Ventilator 09/27/18 00:00 98.6 73 15 142/58 (86) 99 09/26/18 23:24 58 09/26/18 23:15 60 14 100 09/26/18 23:00 64 21 118/45 (69) 100 09/26/18 22:49 62 14 100 Mechanical Ventilator 30 09/26/18 22:35 55 14 100 Mechanical Ventilator 30 09/26/18 22:35 62 14 30 09/26/18 22:00 56 14 139/46 (77) 100 09/26/18 21:00 57 14 103/45 (64) 100 09/26/18 20:43 56 14 30 09/26/18 20:00 98.8 66 22 124/49 (74) 100 09/26/18 20:00 30 09/26/18 20:00 67 09/26/18 20:00 Mechanical Ventilator 09/26/18 19:11 70 23 98 Mechanical Ventilator 30 09/26/18 19:11 Mechanical Ventilator 30 09/26/18 19:11 Mechanical Ventilator 30 09/26/18 19:10 72 14 30 09/26/18 19:00 76 26 123/48 (73) 98 09/26/18 18:00 77 16 113/44 (67) 97 09/26/18 17:00 97 20 138/59 (85) 97 09/26/18 16:58 79 14 30 09/26/18 16:00 Mechanical Ventilator 09/26/18 16:00 66 09/26/18 16:00 98.6 62 14 113/48 (69) 100 09/26/18 16:00 30 09/26/18 15:33 65 14 100 Mechanical Ventilator 30 09/26/18 15:16 65 14 30 09/26/18 15:16 65 14 99 Mechanical Ventilator 30 09/26/18 15:00 68 16 114/50 (71) 97 09/26/18 14:00 66 14 116/53 (74) 99 09/26/18 13:21 68 14 30 09/26/18 13:00 66 14 116/53 (74) 99 09/26/18 12:00 30 09/26/18 12:00 98.6 67 13 117/54 (75) 99 09/26/18 12:00 Mechanical Ventilator 09/26/18 12:00 66 09/26/18 11:23 65 14 100 Mechanical Ventilator 30 09/26/18 11:09 66 14 100 Mechanical Ventilator 30 09/26/18 11:04 68 19 30 30 09/26/18 11:00 67 21 134/50 (78) 100 09/26/18 10:26 99 09/26/18 10:00 67 22 133/57 (82) 99 09/26/18 09:00 73 22 137/56 (83) 99 09/26/18 08:20 75 23 30 30 09/26/18 08:00 30 09/26/18 08:00 61 09/26/18 08:00 98.7 64 14 134/48 (76) 100 09/26/18 08:00 Mechanical Ventilator 09/26/18 07:21 68 14 100 Mechanical Ventilator 30 09/26/18 07:09 59 14 100 Mechanical Ventilator 30 09/26/18 07:09 59 14 30 09/26/18 07:00 59 14 121/47 (71) 100 09/26/18 06:00 67 14 118/43 (68) 100 09/26/18 05:14 61 14 30 30 09/26/18 05:00 60 14 118/43 (68) 100 09/26/18 04:00 74 09/26/18 04:00 99.0 76 13 139/50 (79) 100 09/26/18 04:00 Mechanical Ventilator 09/26/18 04:00 30 09/26/18 03:30 66 14 100 Mechanical Ventilator 30 09/26/18 03:16 69 15 100 Mechanical Ventilator 30 09/26/18 03:15 69 15 30 30 09/26/18 03:00 59 14 96/36 (56) 100 09/26/18 02:00 67 14 97/38 (57) 100 09/26/18 01:20 66 14 30 30 09/26/18 01:00 69 14 124/46 (72) 98 09/26/18 00:00 70 09/26/18 00:00 30 09/26/18 00:00 Mechanical Ventilator 09/26/18 00:00 98.6 62 14 111/53 (72) 100 09/25/18 23:17 68 14 100 Mechanical Ventilator 30 09/25/18 23:06 69 14 96 Mechanical Ventilator 30 09/25/18 23:04 69 14 30 30 09/25/18 23:00 70 14 130/56 (80) 98 09/25/18 22:00 63 14 108/49 (68) 99 09/25/18 21:23 70 14 30 30 09/25/18 21:00 74 14 116/48 (70) 98 09/25/18 20:00 67 09/25/18 20:00 99.0 68 14 103/53 (70) 98 09/25/18 20:00 30 09/25/18 20:00 Mechanical Ventilator 09/25/18 19:05 72 14 100 Mechanical Ventilator 30 09/25/18 19:00 81 14 126/59 (81) 100 09/25/18 18:50 64 14 100 Mechanical Ventilator 30 09/25/18 18:48 66 14 30 30 09/25/18 18:00 74 14 118/54 (75) 99 09/25/18 17:20 80 14 30 09/25/18 17:00 89 14 129/98 (108) 100 09/25/18 16:00 73 09/25/18 16:00 Mechanical Ventilator 09/25/18 16:00 30 09/25/18 16:00 98.7 76 14 102/56 (71) 100 09/25/18 15:32 75 14 100 Mechanical Ventilator 30 Intake and Output 09/26/18 09/27/18 19:00 07:00 Intake Total 1142.5 ml 1225.0 ml Output Total 1290 ml 1800 ml Balance -147.5 ml -575.0 ml Intake Free Water 330 ml 300 ml IV Total 647.5 ml 925.0 ml Tube Feeding 165 ml 0 ml Output Urine Total 1290 ml 1800 ml Labs Test 09/25/18 05:20 09/26/18 00:10 09/26/18 04:10 09/26/18 10:15 White Blood Count 9.3 K/UL (4.8-10.8) 8.4 K/UL (4.8-10.8) Red Blood Count 3.50 M/UL (4.20-5.40) 3.85 M/UL (4.20-5.40) Hemoglobin 11.0 G/DL (12.0-16.0) 12.1 G/DL (12.0-16.0) Hematocrit 35.0 % (37.0-47.0) 37.0 % (37.0-47.0) Mean Corpuscular Volume 100 FL (80-99) 96 FL (80-99) Mean Corpuscular Hemoglobin 31.5 PG (27.0-31.0) 31.3 PG (27.0-31.0) Mean Corpuscular Hemoglobin Concent 31.5 G/DL (32.0-36.0) 32.6 G/DL (32.0-36.0) Red Cell Distribution Width 14.6 % (11.6-14.8) 13.5 % (11.6-14.8) Platelet Count 525 K/UL (150-450) 537 K/UL (150-450) Mean Platelet Volume 4.3 FL (6.5-10.1) 5.8 FL (6.5-10.1) Neutrophils (%) (Auto) 75.8 % (45.0-75.0) 69.1 % (45.0-75.0) Lymphocytes (%) (Auto) 17.2 % (20.0-45.0) 22.4 % (20.0-45.0) Monocytes (%) (Auto) 4.7 % (1.0-10.0) 6.0 % (1.0-10.0) Eosinophils (%) (Auto) 1.5 % (0.0-3.0) 1.9 % (0.0-3.0) Basophils (%) (Auto) 0.8 % (0.0-2.0) 0.6 % (0.0-2.0) Sodium Level 144 MMOL/L (136-145) 135 MMOL/L (136-145) Potassium Level 4.1 MMOL/L (3.5-5.1) 3.8 MMOL/L (3.5-5.1) Chloride Level 110 MMOL/L (98-107) 103 MMOL/L (98-107) Carbon Dioxide Level 29 MMOL/L (21-32) 26 MMOL/L (21-32) Anion Gap 5 mmol/L (5-15) 7 mmol/L (5-15) Blood Urea Nitrogen 10 mg/dL (7-18) 7 mg/dL (7-18) Creatinine 0.7 MG/DL (0.55-1.30) 0.6 MG/DL (0.55-1.30) Estimat Glomerular Filtration Rate mL/min (>60) mL/min (>60) Glucose Level 190 MG/DL (74-106) 171 MG/DL (74-106) Calcium Level 8.7 MG/DL (8.5-10.1) 9.1 MG/DL (8.5-10.1) Magnesium Level 2.0 MG/DL (1.8-2.4) 1.9 MG/DL (1.8-2.4) Vancomycin Level Trough 14.7 ug/mL (5.0-12.0) Uric Acid 3.4 MG/DL (2.6-7.2) Phosphorus Level 2.5 MG/DL (2.5-4.9) Total Bilirubin 0.3 MG/DL (0.2-1.0) Aspartate Amino Transf (AST/SGOT) 17 U/L (15-37) Alanine Aminotransferase (ALT/SGPT) 9 U/L (12-78) Alkaline Phosphatase 93 U/L (46-116) C-Reactive Protein, Quantitative 1.3 mg/dL (0.00-0.90) Pro-B-Type Natriuretic Peptide 212 pg/mL (0-125) Total Protein 6.9 G/DL (6.4-8.2) Albumin 1.7 G/DL (3.4-5.0) Globulin 5.2 g/dL Albumin/Globulin Ratio 0.3 (1.0-2.7) Arterial Blood pH 7.482 (7.350-7.450) Arterial Blood Partial Pressure CO2 29.0 mmHg (35.0-45.0) Arterial Blood Partial Pressure O2 99.5 mmHg (75.0-100.0) Arterial Blood HCO3 21.2 mmol/L (22.0-26.0) Arterial Blood Oxygen Saturation 97.5 % (95-100) Arterial Blood Base Excess -1.3 (-2-2) Ray Test Positive Test 09/27/18 04:10 09/27/18 10:05 White Blood Count 6.5 K/UL (4.8-10.8) Red Blood Count 4.13 M/UL (4.20-5.40) Hemoglobin 13.0 G/DL (12.0-16.0) Hematocrit 39.7 % (37.0-47.0) Mean Corpuscular Volume 96 FL (80-99) Mean Corpuscular Hemoglobin 31.5 PG (27.0-31.0) Mean Corpuscular Hemoglobin Concent 32.7 G/DL (32.0-36.0) Red Cell Distribution Width 13.7 % (11.6-14.8) Platelet Count 506 K/UL (150-450) Mean Platelet Volume 5.5 FL (6.5-10.1) Neutrophils (%) (Auto) 63.5 % (45.0-75.0) Lymphocytes (%) (Auto) 26.9 % (20.0-45.0) Monocytes (%) (Auto) 6.7 % (1.0-10.0) Eosinophils (%) (Auto) 2.1 % (0.0-3.0) Basophils (%) (Auto) 0.8 % (0.0-2.0) Sodium Level 136 MMOL/L (136-145) Potassium Level 4.5 MMOL/L (3.5-5.1) Chloride Level 104 MMOL/L (98-107) Carbon Dioxide Level 23 MMOL/L (21-32) Anion Gap 9 mmol/L (5-15) Blood Urea Nitrogen 5 mg/dL (7-18) Creatinine 0.6 MG/DL (0.55-1.30) Estimat Glomerular Filtration Rate mL/min (>60) Glucose Level 214 MG/DL (74-106) Calcium Level 8.8 MG/DL (8.5-10.1) Arterial Blood pH 7.529 (7.350-7.450) Arterial Blood Partial Pressure CO2 27.1 mmHg (35.0-45.0) Arterial Blood Partial Pressure O2 108.7 mmHg (75.0-100.0) Arterial Blood HCO3 22.1 mmol/L (22.0-26.0) Arterial Blood Oxygen Saturation 98.0 % (95-100) Arterial Blood Base Excess 0.5 (-2-2) Ray Test Positive Height (Feet): 5 Height (Inches): 3.00 Weight (Pounds): 123 Objective Physical Exam: Vitals: reviewed General Appearance: NAD HEENT: normocephalic, atraumatic ++ogt Chest: normal breath sounds bilaterally ++ vent Cardiovascular: normal peripheral pulses, normal rate Abdomen: normal bowel sounds, soft, nontender ++ gtube Extremities: normal range of motion Mateo Wei MD Sep 27, 2018 15:29
--- NOTE | 2018-09-27 16:15 | NUR ---
NURSE NOTES: Patient was extubated by RT. Patient was placed on cool mist, 8L, 30%. No stridor upon auscultation. Patient tolerated well. Breathing even and unlabored. No distress noted. HOB elevated. Patient's son at bedside.
--- NOTE | 2018-09-27 17:28 | Pulmonolgy Critical Care Note ---
Critical Care - Asmt/Plan Assessment/Plan: Pulmonary CCM Progress Note Critical Care - Asmt/Plan Problems: (1) Endotracheally intubated (2) Ventilator dependence, tolerating CPAP trials today - for extubation, family refusing tracheostomy, patient remains full code - dw Son (3) Sepsis, remains afebrile (4) Pneumonia (5) Electrolyte imbalance (6) Dehydration (7) Altered mental status (8) Hypernatremia (9) Respiratory failure (10) Lactic acid acidosis (11) H/O: CVA (cerebrovascular accident) (12) G tube feedings (13) KEL (acute kidney injury) Respiratory: monitor respiratory rate, adjust FIO2, ABG, other - HHN's, pulmonary hygiene, wean an tolerated, family refusing trach Cardiac: continue to monitor HR/BP Renal: keep negative Infectious Disease: check cultures, continue antibiotics per ID Gastrointestinal: enteral feeding Endocrine: monitor blood sugar, continue sliding scale insulin Hematologic: monitor H/H Neurologic: keep patient comfortable - monitor MS, consider neuro eval and EEG Prophylaxis: Protonix, Heparin Disposition: keep in ICU Time Spent (Minutes): 40 Notes Reviewed: manager supplier, renal, ID, other - ERMD Discussed with: nurses, consultants, other - FC Critical Care - Objective Vital Signs Noted Status: sedated - intubated Condition: critical HEENT: atraumatic, normocephalic, other - ETT OGT weak gag Lungs: rhonchi Heart: HR/BP stable Abdomen: soft, non-tender, active bowel sounds, feeding tube Extremities: no C/C/E Micro: Microbiology Date/Time Source Procedure Growth Status 09/14/18 09:00 Rectum Received Critical Care - Subjective ROS Limited/Unobtainable: Yes Interval Events: 77 F NHR h/o dementia, CVA, GT, HTN, HL remains on ACVC, not tolerating PS Na 167 Cr 1.7 LA elevated + hemoconcentration No gag in ER + faint gag now + F no C no further hx obtainable Condition: critical IV Access: peripheral - x2 EKG Rhythm: Sinus Rhythm FI02: 60 Vent Support Breath Rate: 14 Vent Support Mode: AC Vent Tidal Volume: 500 Sputum Amount: Small PEEP: 5.0 PIP: 23 Secretions: scant thick Subjective: ARLETTE CXR: L RC inf, small L eff, ETT ET-Tube: 7.0 ET Position: 22 Labs: Laboratory Tests noted Critical Care - Objective Last 24 Hour Vital Signs Date Time Temp Pulse Resp B/P (MAP) Pulse Ox O2 Delivery O2 Flow Rate FiO2 09/27/18 17:00 70 17 119/50 (73) 97 09/27/18 16:21 100 Cool Aerosol 8.0 30 09/27/18 16:00 Mechanical Ventilator 09/27/18 16:00 30 09/27/18 16:00 97.8 67 22 119/55 (76) 98 09/27/18 16:00 59 09/27/18 15:59 Mechanical Ventilator 30 09/27/18 15:59 Mechanical Ventilator 30 09/27/18 15:00 55 14 138/58 (84) 98 09/27/18 14:00 56 14 113/49 (70) 98 09/27/18 13:00 57 14 106/48 (67) 99 09/27/18 12:33 62 14 30 30 09/27/18 12:00 30 09/27/18 12:00 Mechanical Ventilator 09/27/18 12:00 66 09/27/18 12:00 98.6 65 20 112/50 (70) 98 09/27/18 11:29 Mechanical Ventilator 30 09/27/18 11:29 Mechanical Ventilator 30 09/27/18 11:29 61 22 30 30 09/27/18 11:00 60 20 121/44 (69) 100 09/27/18 10:00 61 22 108/69 (82) 98 09/27/18 09:22 99 09/27/18 09:06 63 21 30 30 09/27/18 09:00 61 21 115/48 (70) 99 09/27/18 08:00 65 09/27/18 08:00 98.6 61 21 113/46 (68) 99 09/27/18 08:00 30 09/27/18 08:00 Mechanical Ventilator 09/27/18 07:48 99 22 30 30 09/27/18 07:47 Mechanical Ventilator 30 09/27/18 07:47 Mechanical Ventilator 30 09/27/18 07:00 62 15 125/44 (71) 98 09/27/18 06:00 60 14 112/46 (68) 99 09/27/18 05:00 60 14 123/45 (71) 100 09/27/18 04:57 59 14 30 09/27/18 04:00 30 09/27/18 04:00 Mechanical Ventilator 09/27/18 04:00 98.6 60 14 119/45 (69) 100 09/27/18 03:19 63 09/27/18 03:00 56 14 153/58 (89) 100 09/27/18 02:53 55 14 100 Mechanical Ventilator 30 09/27/18 02:40 59 14 100 Mechanical Ventilator 30 09/27/18 02:39 59 14 30 09/27/18 02:00 58 16 139/49 (79) 100 09/27/18 01:00 61 21 133/46 (75) 100 09/27/18 00:50 63 14 30 09/27/18 00:00 Mechanical Ventilator 09/27/18 00:00 98.6 73 15 142/58 (86) 99 09/26/18 23:24 58 09/26/18 23:15 60 14 100 09/26/18 23:00 64 21 118/45 (69) 100 09/26/18 22:49 62 14 100 Mechanical Ventilator 30 09/26/18 22:35 55 14 100 Mechanical Ventilator 30 09/26/18 22:35 62 14 30 09/26/18 22:00 56 14 139/46 (77) 100 09/26/18 21:00 57 14 103/45 (64) 100 09/26/18 20:43 56 14 30 09/26/18 20:00 98.8 66 22 124/49 (74) 100 09/26/18 20:00 30 09/26/18 20:00 67 09/26/18 20:00 Mechanical Ventilator 09/26/18 19:11 70 23 98 Mechanical Ventilator 30 09/26/18 19:11 Mechanical Ventilator 30 09/26/18 19:11 Mechanical Ventilator 30 09/26/18 19:10 72 14 30 09/26/18 19:00 76 26 123/48 (73) 98 09/26/18 18:00 77 16 113/44 (67) 97 Accucheck: 117 Critical Care - Subjective ROS Limited/Unobtainable: No Condition: stable FI02: 30 Vent Support Breath Rate: 14 Vent Support Mode: CPAP Vent Tidal Volume: 500 Sputum Amount: Scant PEEP: 5.0 PIP: 24 Tube Feeding Amount: 0 I&O: Intake and Output 09/26/18 09/27/18 19:00 07:00 Intake Total 1142.5 ml 1225.0 ml Output Total 1290 ml 1800 ml Balance -147.5 ml -575.0 ml Intake Free Water 330 ml 300 ml IV Total 647.5 ml 925.0 ml Tube Feeding 165 ml 0 ml Output Urine Total 1290 ml 1800 ml ET-Tube: 7.0 ET Position: 22 Marcelo Swift MD Sep 27, 2018 17:28
--- NOTE | 2018-09-27 18:17 | NUR ---
NURSE NOTES: Patient is resting in bed comfortably. VSS. O2 sat 99% on cool mist, 30%. No acute distress noted. patient was kept clean and dry. Patient was turned and repositioned. Nunez cath draining yellow urine.
--- NOTE | 2018-09-27 19:13 | NUR ---
HAND-OFF: Report given to FELIX Lares.
--- NOTE | 2018-09-27 19:14 | NUR ---
NURSE NOTES: Endorsement received from Michelle Briscoe RN. Patient opens eyes spontaneously, withdraws to pain. S/P extubation this afternoon. On cool mist 30%. With GT, on NPO. Left upper arm PICC, receiving D5 1/2 NS + KCl 20 meqs at 40ml/hr. Nunez catheter draining to urimeter. On P200 mattress. Head of bed elevated. Bed locked and in low position. Bed alarm on.
[2018-09-27] MEDS: Dyna-Hex 2% Top Sol 2oz TOPIC SCH (19:55)
[2018-09-27] MEDS: cefTRIAXone 1 GM in D5W 50 ML IVPB SCH (21:10)
[2018-09-27] MEDS: Levemir Flexpen SUBQ SCH (21:11)
--- NOTE | 2018-09-27 21:12 | NUR ---
NURSE NOTES: Haolf dose of levemir given (6 units) due to patient is NPO. Heparin not given, still noted with slight bleeding from mouth/ loose front tooth.
--- NOTE | 2018-09-27 23:00 | NUR ---
NURSE NOTES: No shortness of breath. 98% on 30% cool aerosol. Repositioned.
[2018-09-28] VITALS (25 sets, daily range): BP systolic 94–147; BP diastolic 36–67
[2018-09-28] MEDS: NovoLOG Insulin Flexpen SUBQ SCH ×5 (00:05→23:36)
--- NOTE | 2018-09-28 01:00 | NUR ---
NURSE NOTES: Patient afebrile. No signs of pain or discomfort. Cool aerosol titrated to 28% c/o RT.
[2018-09-28] MEDS: Vancomycin 1.5gm Premix IVPB SCH (01:16)
[2018-09-28] MEDS: D5 1/2NS w/KCl 20mEq 1,000 ML IV SCH (01:17)
--- NOTE | 2018-09-28 03:00 | NUR ---
NURSE NOTES: Repositioned patient. No shortness of breath. Vital signs stable.
[2018-09-28] MEDS: Albuterol/Ipratropium 3ml neb HHN SCH ×6 (03:03→23:06)
[2018-09-28 04:33] LABS: BASOPHILS % (AUTO) 0.9 % (0.0-2.0); EOSINOPHILS % (AUTO) 1.4 % (0.0-3.0); LYMPHOCYTES % (AUTO) 26.8 % (20.0-45.0); MEAN CORPUSCULAR VOLUME 95 FL (80-99); NEUTROPHILS % (AUTO) 65.9 % (45.0-75.0); PLATELET COUNT 479 K/UL (150-450); RED CELL DISTRIBUTION WIDTH 13.4 % (11.6-14.8); WHITE BLOOD COUNT 8.6 K/UL (4.8-10.8)
[2018-09-28 04:59] LABS: ALANINE AMINOTRANSFERASE 10 U/L (12-78); ALBUMIN 1.7 G/DL (3.4-5.0); ALBUMIN/GLOBULIN RATIO 0.3 (1.0-2.7); ALKALINE PHOSPHATASE 96 U/L (46-116); ANION GAP 6 mmol/L (5-15); ASPARTATE AMINO TRANSFERASE 15 U/L (15-37); BILIRUBIN,TOTAL 0.3 MG/DL (0.2-1.0); BLOOD UREA NITROGEN 4 mg/dL (7-18); CALCIUM 8.7 MG/DL (8.5-10.1); CARBON DIOXIDE 25 MMOL/L (21-32); CHLORIDE 103 MMOL/L (98-107); CREATININE 0.6 MG/DL (0.55-1.30); POTASSIUM 3.3 MMOL/L (3.5-5.1); SODIUM 134 MMOL/L (136-145)
--- NOTE | 2018-09-28 05:06 | NUR ---
NURSE NOTES: Bed bath, oral care, change of linens done. Patient tolerated activity.
--- NOTE | 2018-09-28 06:00 | NUR ---
NURSE NOTES: Oxygen titrated to 2LPM -per nasal cannula c/o RT. Will continue to monitor.
--- NOTE | 2018-09-28 07:15 | NUR ---
HAND-OFF: Report given to FELIX Chatman.
--- NOTE | 2018-09-28 07:15 | NUR ---
NURSE NOTES: Received repot from FELIX Lares. Patient resting with eyes closed, easy to arouse to touch and name. Unable to follow commands. Opens eyes spontaneously. Rt gaze preference. Non verbal. 2L NC, 100%. No acute distress noted. Sinus rhythm noted on satellite project site monitor HR 64, BP 147/57, RR 21. G-tube intact, tube feeding on hold at this time. bowel sounds present.HOB kept elevated. Left upper arm PICC intact, running D51/2NS with 20meq KCL @40ml/hr. Nunez cath intact, draining urine by gravity. Patient on P200 mattress. Bed in lowest position, locked, side rails upx3. Contact precautions in place. Will continue to monitor.
--- NOTE | 2018-09-28 08:00 | NUR ---
NURSE NOTES: MD BLANDON HERE TO SEE PT
[2018-09-28] MEDS: Docusate 100mg tablet GT SCH ×3 (08:27→17:18)
[2018-09-28] MEDS: Heparin 5000 units/ml inj SUBQ SCH ×2 (08:28→20:52)
[2018-09-28] MEDS: Pantoprazole Inj IV SCH (08:30)
[2018-09-28] MEDS: Ascorbic Acid 500mg tab ORAL SCH ×2 (08:30→17:17)
[2018-09-28] MEDS ORDERED: NS 275ml ONE (09:06)
[2018-09-28] MEDS ORDERED: Tubing IV Secondary IV ONE (09:06)
--- NOTE | 2018-09-28 10:00 | NUR ---
NURSE NOTES: PT IN NO ACUTE DISTRESS. AFEBRILE. NO S/S OF PAIN. ORAL CARE PROVIDED. ORAL CAVITY MINOR BLEEDING AT GUM AREA. FRONT BOTTOM TOOTH LOOSE BUT PRESENT AT THIS TIME. WILL CONTINUE TO MONITOR.
--- NOTE | 2018-09-28 10:18 | General Progress Note ---
Assessment/Plan Status: doing well, stable, unchanged Assessment/Plan: Assessment/Plan Status: unchanged Assessment/Plan: 77 y/o F with acute hypoxemic respiratory failure and sepsis admitted to ICU # Acute hypoxemic respiratory failure - ICU management by refuge manager appreciated. - Extubated 09/27/18 and tolerating NC 2 lt O2 well - Add ABG and CXR today. 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 - Nephrology follow up appreciated. 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 - R gaze preference noted. - Awake today and moves her R side only # Hypertension - Monitor and resume home medications not needed now due to hypotension. # History of dementia - Supportive care - SW to attempt to find family members # Nutrition - Restart tube feeds when approved by ICU - PEG in place # DVT and GI ppx # FULL CODE by records. - CM / SW follow up for family is needed. Resident at [facility]. Subjective Allergies: Coded Allergies: No Known Allergies (Unverified , 02/04/17) All Systems: reviewed and negative except above Subjective Mildly responsive, extubated, opens eyes spontaneously but is not following commands today. Tolerating NC 2 lt well at 100 % O2 Objective Last 24 Hour Vital Signs Date Time Temp Pulse Resp B/P (MAP) Pulse Ox O2 Delivery O2 Flow Rate FiO2 09/28/18 08:33 70 21 142/60 (87) 100 09/28/18 08:00 Nasal Cannula 2.0 09/28/18 08:00 98.9 71 20 142/52 (82) 100 09/28/18 07:45 68 21 100 Nasal Cannula 2.0 28 09/28/18 07:20 65 20 100 Nasal Cannula 2.0 28 09/28/18 07:19 100 Nasal Cannula 2.0 28 09/28/18 07:00 62 20 147/57 (87) 100 09/28/18 06:00 66 20 143/53 (83) 100 09/28/18 05:00 73 20 140/56 (84) 99 09/28/18 04:00 69 09/28/18 04:00 Venturi Mask 09/28/18 04:00 98.7 76 23 111/46 (67) 98 09/28/18 03:15 67 20 100 Venturi Mask 6.0 28 09/28/18 03:05 64 22 100 Venturi Mask 6.0 28 09/28/18 03:00 65 23 143/50 (81) 100 09/28/18 02:00 68 22 127/47 (73) 100 09/28/18 01:00 73 22 118/67 (84) 98 09/28/18 00:00 Venturi Mask 09/28/18 00:00 98.6 84 20 124/57 (79) 96 09/28/18 00:00 73 09/27/18 23:24 73 22 100 Venturi Mask 6.0 28 09/27/18 23:10 72 16 100 Venturi Mask 6.0 28 09/27/18 23:00 72 19 113/55 (74) 99 09/27/18 22:00 79 20 119/60 (79) 97 09/27/18 21:00 77 19 122/56 (78) 98 09/27/18 20:00 98.6 86 18 110/57 (74) 94 09/27/18 20:00 Venturi Mask 09/27/18 20:00 80 09/27/18 19:06 69 22 100 Venturi Mask 6.0 28 09/27/18 19:00 70 20 130/50 (76) 100 09/27/18 18:49 65 21 98 Mechanical Ventilator 30 09/27/18 18:00 63 21 121/46 (71) 97 09/27/18 17:00 70 17 119/50 (73) 97 09/27/18 16:21 100 Cool Aerosol 8.0 30 09/27/18 16:00 Mechanical Ventilator 09/27/18 16:00 30 09/27/18 16:00 97.8 67 22 119/55 (76) 98 09/27/18 16:00 59 09/27/18 15:59 Mechanical Ventilator 30 09/27/18 15:59 Mechanical Ventilator 30 09/27/18 15:00 55 14 138/58 (84) 98 09/27/18 14:00 56 14 113/49 (70) 98 09/27/18 13:00 57 14 106/48 (67) 99 09/27/18 12:33 62 14 30 30 09/27/18 12:00 30 09/27/18 12:00 Mechanical Ventilator 09/27/18 12:00 66 09/27/18 12:00 98.6 65 20 112/50 (70) 98 09/27/18 11:29 Mechanical Ventilator 30 09/27/18 11:29 Mechanical Ventilator 30 09/27/18 11:29 61 22 30 30 09/27/18 11:00 60 20 121/44 (69) 100 Intake and Output 09/27/18 09/28/18 18:59 06:59 Intake Total 658.8 ml 805.0 ml Output Total 1200 ml 1050 ml Balance -541.2 ml -245.0 ml Intake Free Water 100 ml IV Total 558.8 ml 805.0 ml Tube Feeding 0 ml 0 ml Output Urine Total 1200 ml 1050 ml Laboratory Tests 09/28/18 03:45: White Blood Count 8.6, Red Blood Count 3.80L, Hemoglobin 12.0, Hematocrit 36.0L , Mean Corpuscular Volume 95, Mean Corpuscular Hemoglobin 31.7H, Mean Corpuscular Hemoglobin Concent 33.4, Red Cell Distribution Width 13.4, Platelet Count 479H, Mean Platelet Volume 5.4L, Neutrophils (%) (Auto) 65.9, Lymphocytes (%) (Auto) 26.8, Monocytes (%) (Auto) 5.0, Eosinophils (%) (Auto) 1.4, Basophils (%) (Auto) 0.9, Sodium Level 134L, Potassium Level 3.3L, Chloride Level 103, Carbon Dioxide Level 25, Anion Gap 6, Blood Urea Nitrogen 4L, Creatinine 0.6, Estimat Glomerular Filtration Rate , Glucose Level 202H, Calcium Level 8.7, Phosphorus Level 3.0, Magnesium Level 1.8, Total Bilirubin 0.3, Aspartate Amino Transf (AST/SGOT) 15, Alanine Aminotransferase (ALT/SGPT) 10L, Alkaline Phosphatase 96, Total Protein 6.7, Albumin 1.7L, Globulin 5.0, Albumin/Globulin Ratio 0.3L Height (Feet): 5 Height (Inches): 3.00 Weight (Pounds): 125 General Appearance: WD/WN, no apparent distress EENT: PERRL/EOMI Neck: non-tender Cardiovascular: normal peripheral pulses Respiratory/Chest: chest wall non-tender Abdomen: non tender Neurologic: beef grader II-XII grossly normal Geovanny Jerez MD Sep 28, 2018 10:18
--- NOTE | 2018-09-28 10:21 | Nephrology Progress Note ---
Assessment/Plan Problem List: (1) KEL (acute kidney injury) (2) Respiratory failure (3) Dehydration (4) Electrolyte imbalance (5) G tube feedings (6) Hypokalemia (7) CVA, old, hemiparesis (8) DM (diabetes mellitus) Plan now extubated - day 1 post ( 09/27/18) antibiotics start feeding DC IV fluids IV KCl Pulm support correct lytes BS and BP check and monitor per consultants Subjective ROS Limited/Unobtainable: No Constitutional: Reports: malaise Objective Objective Last 24 Hour Vital Signs Date Time Temp Pulse Resp B/P (MAP) Pulse Ox O2 Delivery O2 Flow Rate FiO2 09/28/18 10:00 69 21 119/50 (73) 100 09/28/18 09:00 73 20 122/44 (70) 100 09/28/18 08:33 70 21 142/60 (87) 100 09/28/18 08:00 Nasal Cannula 2.0 09/28/18 08:00 98.9 71 20 142/52 (82) 100 09/28/18 07:45 68 21 100 Nasal Cannula 2.0 28 09/28/18 07:20 65 20 100 Nasal Cannula 2.0 28 09/28/18 07:19 100 Nasal Cannula 2.0 28 09/28/18 07:00 62 20 147/57 (87) 100 09/28/18 06:00 66 20 143/53 (83) 100 09/28/18 05:00 73 20 140/56 (84) 99 09/28/18 04:00 69 09/28/18 04:00 Venturi Mask 09/28/18 04:00 98.7 76 23 111/46 (67) 98 09/28/18 03:15 67 20 100 Venturi Mask 6.0 28 09/28/18 03:05 64 22 100 Venturi Mask 6.0 28 09/28/18 03:00 65 23 143/50 (81) 100 09/28/18 02:00 68 22 127/47 (73) 100 09/28/18 01:00 73 22 118/67 (84) 98 09/28/18 00:00 Venturi Mask 09/28/18 00:00 98.6 84 20 124/57 (79) 96 09/28/18 00:00 73 8/15/19 23:24 73 22 100 Venturi Mask 6.0 28 09/27/18 23:10 72 16 100 Venturi Mask 6.0 28 09/27/18 23:00 72 19 113/55 (74) 99 09/27/18 22:00 79 20 119/60 (79) 97 09/27/18 21:00 77 19 122/56 (78) 98 09/27/18 20:00 98.6 86 18 110/57 (74) 94 09/27/18 20:00 Venturi Mask 09/27/18 20:00 80 09/27/18 19:06 69 22 100 Venturi Mask 6.0 28 09/27/18 19:00 70 20 130/50 (76) 100 09/27/18 18:49 65 21 98 Mechanical Ventilator 30 09/27/18 18:00 63 21 121/46 (71) 97 09/27/18 17:00 70 17 119/50 (73) 97 09/27/18 16:21 100 Cool Aerosol 8.0 30 09/27/18 16:00 Mechanical Ventilator 09/27/18 16:00 30 09/27/18 16:00 97.8 67 22 119/55 (76) 98 09/27/18 16:00 59 09/27/18 15:59 Mechanical Ventilator 30 09/27/18 15:59 Mechanical Ventilator 30 09/27/18 15:00 55 14 138/58 (84) 98 09/27/18 14:00 56 14 113/49 (70) 98 09/27/18 13:00 57 14 106/48 (67) 99 09/27/18 12:33 62 14 30 30 09/27/18 12:00 30 09/27/18 12:00 Mechanical Ventilator 09/27/18 12:00 66 09/27/18 12:00 98.6 65 20 112/50 (70) 98 09/27/18 11:29 Mechanical Ventilator 30 09/27/18 11:29 Mechanical Ventilator 30 09/27/18 11:29 61 22 30 30 09/27/18 11:00 60 20 121/44 (69) 100 Intake and Output 09/27/18 09/28/18 18:59 06:59 Intake Total 658.8 ml 805.0 ml Output Total 1200 ml 1050 ml Balance -541.2 ml -245.0 ml Intake Free Water 100 ml IV Total 558.8 ml 805.0 ml Tube Feeding 0 ml 0 ml Output Urine Total 1200 ml 1050 ml Laboratory Tests 09/28/18 03:45: White Blood Count 8.6, Red Blood Count 3.80L, Hemoglobin 12.0, Hematocrit 36.0L , Mean Corpuscular Volume 95, Mean Corpuscular Hemoglobin 31.7H, Mean Corpuscular Hemoglobin Concent 33.4, Red Cell Distribution Width 13.4, Platelet Count 479H, Mean Platelet Volume 5.4L, Neutrophils (%) (Auto) 65.9, Lymphocytes (%) (Auto) 26.8, Monocytes (%) (Auto) 5.0, Eosinophils (%) (Auto) 1.4, Basophils (%) (Auto) 0.9, Sodium Level 134L, Potassium Level 3.3L, Chloride Level 103, Carbon Dioxide Level 25, Anion Gap 6, Blood Urea Nitrogen 4L, Creatinine 0.6, Estimat Glomerular Filtration Rate , Glucose Level 202H, Calcium Level 8.7, Phosphorus Level 3.0, Magnesium Level 1.8, Total Bilirubin 0.3, Aspartate Amino Transf (AST/SGOT) 15, Alanine Aminotransferase (ALT/SGPT) 10L, Alkaline Phosphatase 96, Total Protein 6.7, Albumin 1.7L, Globulin 5.0, Albumin/Globulin Ratio 0.3L Height (Feet): 5 Height (Inches): 3.00 Weight (Pounds): 125 General Appearance: no apparent distress Cardiovascular: normal rate Respiratory/Chest: decreased breath sounds Abdomen: soft Objective no change Dwayne Vernon MD Sep 28, 2018 10:21
--- NOTE | 2018-09-28 10:30 | NUR ---
NURSE NOTES: MD JOSHUA HERE TO SEE PT.
--- NOTE | 2018-09-28 11:02 | Diagnostic Imaging Report ---
Indication: Abnormal chest sounds Technique: One view of the chest Comparison: none Findings: Stable satisfactory position of endotracheal tube and left arm PICC. There is better aeration of the lung bases although some atelectasis persists. There is decreased congestion. The left hemidiaphragm is somewhat obscured, small amount of residual pleural fluid possible. The heart is borderline enlarged. Impression: Over 5 days, interim improved aeration of the lung bases with some residual atelectasis, and decreased interstitial congestion. There may be some residual pleural fluid on the left.
--- NOTE | 2018-09-28 11:35 | GI Progress Note ---
Assessment/Plan Problems: (1) DM (diabetes mellitus) ICD Codes: E11.9 - Type 2 diabetes mellitus without complications SNOMED: 50992269 (2) Dehydration ICD Codes: E86.0 - Dehydration SNOMED: 64096592 (3) G tube feedings ICD Codes: Z93.1 - Gastrostomy status SNOMED: 073267901, 929515546, 057321062 (4) Electrolyte imbalance ICD Codes: E87.8 - Other disorders of electrolyte and fluid balance, not elsewhere classified SNOMED: 093095771 (5) Sepsis ICD Codes: A41.9 - Sepsis, unspecified organism SNOMED: 12336668 Status: unchanged Status Narrative Discussed with Dr. Brown. Assessment/Plan s/p extubation start TF obtain swallow eval abx per ID abd us>> neg cont bowel regimen ppi follow labs The patient was seen and examined at bedside and all new and available data was reviewed in the patients chart. I agree with the above findings, impression and plan. (Patient seen earlier today. Signature stamp does not reflect patient encounter time.). - Ovi Brown MD Subjective Subjective limited Objective Last 24 Hour Vital Signs Date Time Temp Pulse Resp B/P (MAP) Pulse Ox O2 Delivery O2 Flow Rate FiO2 09/28/18 11:09 72 19 100 Nasal Cannula 2.0 28 09/28/18 11:00 69 21 129/45 (73) 99 09/28/18 10:00 69 21 119/50 (73) 100 09/28/18 09:00 73 20 122/44 (70) 100 09/28/18 08:33 70 21 142/60 (87) 100 09/28/18 08:00 Nasal Cannula 2.0 09/28/18 08:00 98.9 71 20 142/52 (82) 100 09/28/18 08:00 67 09/28/18 07:45 68 21 100 Nasal Cannula 2.0 28 09/28/18 07:20 65 20 100 Nasal Cannula 2.0 28 09/28/18 07:19 100 Nasal Cannula 2.0 28 09/28/18 07:00 62 20 147/57 (87) 100 09/28/18 06:00 66 20 143/53 (83) 100 09/28/18 05:00 73 20 140/56 (84) 99 09/28/18 04:00 69 09/28/18 04:00 Venturi Mask 09/28/18 04:00 98.7 76 23 111/46 (67) 98 09/28/18 03:15 67 20 100 Venturi Mask 6.0 28 09/28/18 03:05 64 22 100 Venturi Mask 6.0 28 09/28/18 03:00 65 23 143/50 (81) 100 09/28/18 02:00 68 22 127/47 (73) 100 09/28/18 01:00 73 22 118/67 (84) 98 09/28/18 00:00 Venturi Mask 09/28/18 00:00 98.6 84 20 124/57 (79) 96 09/28/18 00:00 73 09/27/18 23:24 73 22 100 Venturi Mask 6.0 28 09/27/18 23:10 72 16 100 Venturi Mask 6.0 28 09/27/18 23:00 72 19 113/55 (74) 99 09/27/18 22:00 79 20 119/60 (79) 97 09/27/18 21:00 77 19 122/56 (78) 98 09/27/18 20:00 98.6 86 18 110/57 (74) 94 09/27/18 20:00 Venturi Mask 09/27/18 20:00 80 09/27/18 19:06 69 22 100 Venturi Mask 6.0 28 09/27/18 19:00 70 20 130/50 (76) 100 09/27/18 18:49 65 21 98 Mechanical Ventilator 30 09/27/18 18:00 63 21 121/46 (71) 97 09/27/18 17:00 70 17 119/50 (73) 97 09/27/18 16:21 100 Cool Aerosol 8.0 30 09/27/18 16:00 Mechanical Ventilator 09/27/18 16:00 30 09/27/18 16:00 97.8 67 22 119/55 (76) 98 09/27/18 16:00 59 09/27/18 15:59 Mechanical Ventilator 30 09/27/18 15:59 Mechanical Ventilator 30 09/27/18 15:00 55 14 138/58 (84) 98 09/27/18 14:00 56 14 113/49 (70) 98 09/27/18 13:00 57 14 106/48 (67) 99 09/27/18 12:33 62 14 30 30 09/27/18 12:00 30 09/27/18 12:00 Mechanical Ventilator 09/27/18 12:00 66 09/27/18 12:00 98.6 65 20 112/50 (70) 98 Intake and Output 09/27/18 09/28/18 19:00 07:00 Intake Total 648.8 ml 805.0 ml Output Total 1200 ml 1025 ml Balance -551.2 ml -220.0 ml Intake Free Water 100 ml IV Total 548.8 ml 805.0 ml Tube Feeding 0 ml 0 ml Output Urine Total 1200 ml 1025 ml Laboratory Tests Test 09/28/18 03:45 09/28/18 10:13 White Blood Count 8.6 K/UL (4.8-10.8) Red Blood Count 3.80 M/UL (4.20-5.40) L Hemoglobin 12.0 G/DL (12.0-16.0) Hematocrit 36.0 % (37.0-47.0) L Mean Corpuscular Volume 95 FL (80-99) Mean Corpuscular Hemoglobin 31.7 PG (27.0-31.0) H Mean Corpuscular Hemoglobin Concent 33.4 G/DL (32.0-36.0) Red Cell Distribution Width 13.4 % (11.6-14.8) Platelet Count 479 K/UL (150-450) H Mean Platelet Volume 5.4 FL (6.5-10.1) L Neutrophils (%) (Auto) 65.9 % (45.0-75.0) Lymphocytes (%) (Auto) 26.8 % (20.0-45.0) Monocytes (%) (Auto) 5.0 % (1.0-10.0) Eosinophils (%) (Auto) 1.4 % (0.0-3.0) Basophils (%) (Auto) 0.9 % (0.0-2.0) Sodium Level 134 MMOL/L (136-145) L Potassium Level 3.3 MMOL/L (3.5-5.1) L Chloride Level 103 MMOL/L (98-107) Carbon Dioxide Level 25 MMOL/L (21-32) Anion Gap 6 mmol/L (5-15) Blood Urea Nitrogen 4 mg/dL (7-18) L Creatinine 0.6 MG/DL (0.55-1.30) Estimat Glomerular Filtration Rate mL/min (>60) Glucose Level 202 MG/DL (74-106) H Calcium Level 8.7 MG/DL (8.5-10.1) Phosphorus Level 3.0 MG/DL (2.5-4.9) Magnesium Level 1.8 MG/DL (1.8-2.4) Total Bilirubin 0.3 MG/DL (0.2-1.0) Aspartate Amino Transf (AST/SGOT) 15 U/L (15-37) Alanine Aminotransferase (ALT/SGPT) 10 U/L (12-78) L Alkaline Phosphatase 96 U/L (46-116) Total Protein 6.7 G/DL (6.4-8.2) Albumin 1.7 G/DL (3.4-5.0) L Globulin 5.0 g/dL Albumin/Globulin Ratio 0.3 (1.0-2.7) L Arterial Blood pH 7.461 (7.350-7.450) Arterial Blood Partial Pressure CO2 33.0 mmHg (35.0-45.0) L Arterial Blood Partial Pressure O2 102.9 mmHg (75.0-100.0) H Arterial Blood HCO3 23.0 mmol/L (22.0-26.0) Arterial Blood Oxygen Saturation 97.7 % (95-100) Arterial Blood Base Excess -0.2 (-2-2) Ray Test Positive Height (Feet): 5 Height (Inches): 3.00 Weight (Pounds): 125 General Appearance: no apparent distress, lethargic Cardiovascular: normal rate Respiratory/Chest: no respiratory distress Abdominal Exam: normal bowel sounds, non tender, soft Extremities: non-tender Valente Bethea MACHINE ASSISTANT Sep 28, 2018 11:35
[2018-09-28] MEDS: Metoclopramide 10mg/10ml Liq NG SCH ×3 (11:39→23:34)
--- NOTE | 2018-09-28 12:00 | NUR ---
NURSE NOTES: Patient resting in bed. Opens eyes spontaneously. Rt gaze preference. 2L NC, 100%. No acute distress noted. HR 74, BP 118/48, RR 24. G-tube intact. bowel sounds present. 1 small smear of BM brown. Pt cleaned and repositioned. Oral care provided. OPHELIA PICC intact. 10 MEQ kcl replacements. Nunez cath intact, draining urine by gravity. Bed in lowest position, locked, side rails upx3. Contact precautions in place. Will continue to monitor.
--- NOTE | 2018-09-28 13:17 | NUR ---
NURSE NOTES: MD CADET HERE TO SEE PT. OK TO DOWNGRADE IF PCP CLEARED. CXR AND ABG'S OK. NO ADDITIONAL ORDERS AT THIS TIME.
--- NOTE | 2018-09-28 13:29 | NUR ---
NURSE NOTES: MD Jackson here to see pt.
--- NOTE | 2018-09-28 13:35 | Surgery Progress Note ---
Surgery Progress Note Subjective Additional Comments extubated doing okay labs noted abg noted comfortable. Objective Last 24 Hour Vital Signs Date Time Temp Pulse Resp B/P (MAP) Pulse Ox O2 Delivery O2 Flow Rate FiO2 09/28/18 13:00 98.7 68 23 112/39 (63) 99 09/28/18 12:00 Nasal Cannula 2.0 09/28/18 12:00 74 09/28/18 12:00 75 25 118/48 (71) 91 09/28/18 11:12 71 22 100 Nasal Cannula 2.0 28 09/28/18 11:09 72 19 100 Nasal Cannula 2.0 28 09/28/18 11:00 69 21 129/45 (73) 99 09/28/18 10:00 69 21 119/50 (73) 100 09/28/18 09:00 73 20 122/44 (70) 100 09/28/18 08:33 70 21 142/60 (87) 100 09/28/18 08:00 Nasal Cannula 2.0 09/28/18 08:00 98.9 71 20 142/52 (82) 100 09/28/18 08:00 67 09/28/18 07:45 68 21 100 Nasal Cannula 2.0 28 09/28/18 07:20 65 20 100 Nasal Cannula 2.0 28 09/28/18 07:19 100 Nasal Cannula 2.0 28 09/28/18 07:00 62 20 147/57 (87) 100 09/28/18 06:00 66 20 143/53 (83) 100 09/28/18 05:00 73 20 140/56 (84) 99 09/28/18 04:00 69 09/28/18 04:00 Venturi Mask 09/28/18 04:00 98.7 76 23 111/46 (67) 98 09/28/18 03:15 67 20 100 Venturi Mask 6.0 28 09/28/18 03:05 64 22 100 Venturi Mask 6.0 28 09/28/18 03:00 65 23 143/50 (81) 100 09/28/18 02:00 68 22 127/47 (73) 100 09/28/18 01:00 73 22 118/67 (84) 98 09/28/18 00:00 Venturi Mask 09/28/18 00:00 98.6 84 20 124/57 (79) 96 09/28/18 00:00 73 09/27/18 23:24 73 22 100 Venturi Mask 6.0 28 09/27/18 23:10 72 16 100 Venturi Mask 6.0 28 09/27/18 23:00 72 19 113/55 (74) 99 09/27/18 22:00 79 20 119/60 (79) 97 09/27/18 21:00 77 19 122/56 (78) 98 09/27/18 20:00 98.6 86 18 110/57 (74) 94 09/27/18 20:00 Venturi Mask 09/27/18 20:00 80 09/27/18 19:06 69 22 100 Venturi Mask 6.0 28 09/27/18 19:00 70 20 130/50 (76) 100 09/27/18 18:49 65 21 98 Mechanical Ventilator 30 09/27/18 18:00 63 21 121/46 (71) 97 09/27/18 17:00 70 17 119/50 (73) 97 09/27/18 16:21 100 Cool Aerosol 8.0 30 09/27/18 16:00 Mechanical Ventilator 09/27/18 16:00 30 09/27/18 16:00 97.8 67 22 119/55 (76) 98 09/27/18 16:00 59 09/27/18 15:59 Mechanical Ventilator 30 09/27/18 15:59 Mechanical Ventilator 30 09/27/18 15:00 55 14 138/58 (84) 98 09/27/18 14:00 56 14 113/49 (70) 98 I&O Intake and Output 09/27/18 09/28/18 19:00 07:00 Intake Total 648.8 ml 805.0 ml Output Total 1200 ml 1025 ml Balance -551.2 ml -220.0 ml Intake Free Water 100 ml IV Total 548.8 ml 805.0 ml Tube Feeding 0 ml 0 ml Output Urine Total 1200 ml 1025 ml Dressing: saturated Wound: clean Drains: other Cardiovascular: RSR Respiratory: clear, decreased breath sounds Abdomen: non-tender, present bowel sounds Extremities: no cyanosis Laboratory Tests Test 09/28/18 03:45 09/28/18 10:13 White Blood Count 8.6 K/UL (4.8-10.8) Red Blood Count 3.80 M/UL (4.20-5.40) L Hemoglobin 12.0 G/DL (12.0-16.0) Hematocrit 36.0 % (37.0-47.0) L Mean Corpuscular Volume 95 FL (80-99) Mean Corpuscular Hemoglobin 31.7 PG (27.0-31.0) H Mean Corpuscular Hemoglobin Concent 33.4 G/DL (32.0-36.0) Red Cell Distribution Width 13.4 % (11.6-14.8) Platelet Count 479 K/UL (150-450) H Mean Platelet Volume 5.4 FL (6.5-10.1) L Neutrophils (%) (Auto) 65.9 % (45.0-75.0) Lymphocytes (%) (Auto) 26.8 % (20.0-45.0) Monocytes (%) (Auto) 5.0 % (1.0-10.0) Eosinophils (%) (Auto) 1.4 % (0.0-3.0) Basophils (%) (Auto) 0.9 % (0.0-2.0) Sodium Level 134 MMOL/L (136-145) L Potassium Level 3.3 MMOL/L (3.5-5.1) L Chloride Level 103 MMOL/L (98-107) Carbon Dioxide Level 25 MMOL/L (21-32) Anion Gap 6 mmol/L (5-15) Blood Urea Nitrogen 4 mg/dL (7-18) L Creatinine 0.6 MG/DL (0.55-1.30) Estimat Glomerular Filtration Rate mL/min (>60) Glucose Level 202 MG/DL (74-106) H Calcium Level 8.7 MG/DL (8.5-10.1) Phosphorus Level 3.0 MG/DL (2.5-4.9) Magnesium Level 1.8 MG/DL (1.8-2.4) Total Bilirubin 0.3 MG/DL (0.2-1.0) Aspartate Amino Transf (AST/SGOT) 15 U/L (15-37) Alanine Aminotransferase (ALT/SGPT) 10 U/L (12-78) L Alkaline Phosphatase 96 U/L (46-116) Total Protein 6.7 G/DL (6.4-8.2) Albumin 1.7 G/DL (3.4-5.0) L Globulin 5.0 g/dL Albumin/Globulin Ratio 0.3 (1.0-2.7) L Arterial Blood pH 7.461 (7.350-7.450) Arterial Blood Partial Pressure CO2 33.0 mmHg (35.0-45.0) L Arterial Blood Partial Pressure O2 102.9 mmHg (75.0-100.0) H Arterial Blood HCO3 23.0 mmol/L (22.0-26.0) Arterial Blood Oxygen Saturation 97.7 % (95-100) Arterial Blood Base Excess -0.2 (-2-2) Ray Test Positive Plan Problems: (1) Sepsis Assessment & Plan: 77-year-old female presented to [facility] in distress found to be septic with leukocytosis tachycardia and requiring ventilatory support. Patient's labs noted and significant abnormal. Lactic acidosis. Severe dehydration. Admit to intensive care unit IV fluids Vent support - cont with weaning trial. looks okay for extubation soon IV antibiotics as per infectious disease Trend labs A.m. chest x-ray okay for tube feeds ICU care Leukocytosis improving. Labs improving. US noted extubated and doing well cont with current care plan We will follow with recommendations Thank you for allowing me to participate in patient's care (2) Lactic acid acidosis (3) Upper sacral area unstageable pressure ulcer Assessment & Plan: Loose dry scab noted to L ear and easily removed. Skin is clean and intact. Full thickness sacral pressure injury with slough centrally at sacrococcygeal area with surrounding pink granulation.(L)Area of slough measures (L)1.4cm x (W)1cm.Total pressure injury measures (L)4cm x (W)5.5cm. R and L heels are soft ,pink and each heel are easily blanchable. Tx.Plan: Cleanse sacral wound with saline. Apply Therahoney.Apply Moisture Barrier Paste to periwound. Cover with Optifoam drsg. Change every 3 days and prn. Apply Cavilon Skin Barrier to both heels. Cover each heel with Opifoam drsg. Change every 7 days and prn. APM/LOU Mattress overlay. Reposition at least every 2hours or as tolerated. Off-load heels with pillow. (4) G tube feedings Assessment & Plan: DAILY ESTIMATED NEEDS: Needs based on Critical care, sepsis, wound, DM 53.6kg 25-32 kcals/kg 5277-7134 total kcals 1.25-2 g protein/kg 67-107 g total protein 25-32ml/kcal mL/kg 2685-6078 total fluid mLs NUTRITION DIAGNOSIS: 1) Swallowing difficulty R/T dysphagia, CVA as evidenced by PEG dependent, now orally intubated. 2) Increased kcal and pro needs r/t sepsis and wound healing as evidenced by elev BG and POC (200-400's), elev WBC (15.7), febrile (Tmax 100.9), elev Na (148), sacral wound/ unstageable per MD. CURRENT TF: Glucerna 1.2 @60 hrs ENTERAL NUTRITION RECOMMENDATIONS: Glucerna 1.2 @55ml/hr x24 hrs + Prosource x1 daily to provide 1320ml, 1584 kcal, 79g + 11g pro, 1063ml free H2O - Maintain Glucerna 1.2 -> Rec to REDUCE RATE to goal of 55ml/hr - Add Prosource x1 daily to better meet est pro needs - HOB over 30 degrees - Flush per MD-> 150q6 for added 600ml free fluid per day (1063ml from TF + 600ml flushes= 1663ml free fluid per day). ------ ADDITIONAL RECOMMENDATIONS: 1) Monitor hydration status 2) Obtain an accurate calibrated bed scale wt 3) Lytes daily on TF/ replete as needed 4) Rec increase hypoglycemic agents for improved BG control 5) Sacral wound: add AYDEE BID via PEG daily + Vit C 250mg BID daily via GT (5) Respiratory failure (6) Ventilator dependence Akhli Jackson Sep 28, 2018 13:35
--- NOTE | 2018-09-28 15:30 | NUR ---
NURSE NOTES:pt not in distress. vss. will continue to monitor.
--- NOTE | 2018-09-28 16:00 | NUR ---
NURSE NOTES: Patient resting in bed. Opens eyes spontaneously. Rt gaze preference able to look straight ahead, makes effort to hold side rail with right hand slightly. 2L NC 98%. No acute distress noted. HR 78, BP 103/36, RR 22. Afebrile. G-tube intact. Glucerna 1.5 @20ml/hr, no residuals. bowel sounds present. Pt repositioned. Oral care provided. OPHELIA PICC intact. Nunez cath intact, draining urine by gravity. Bed in lowest position, locked, side rails upx3. Contact precautions in place. Will continue to monitor.
--- NOTE | 2018-09-28 17:02 | Pulmonolgy Critical Care Note ---
Critical Care - Asmt/Plan Assessment/Plan: Pulmonary CCM Progress Note Critical Care - Asmt/Plan Problems: (1) Endotracheally intubated (2) Respiratory failure - s/p extubation (3) Sepsis, remains afebrile (4) Pneumonia (5) Electrolyte imbalance (6) Dehydration (7) Altered mental status (8) Hypernatremia (9) Respiratory failure (10) Lactic acid acidosis (11) H/O: CVA (cerebrovascular accident) (12) G tube feedings (13) KEL (acute kidney injury) Respiratory: monitor respiratory rate, adjust FIO2, ABG, other - HHN's, pulmonary hygiene Cardiac: continue to monitor HR/BP Renal: keep negative Infectious Disease: check cultures, continue antibiotics per ID Gastrointestinal: enteral feeding Endocrine: monitor blood sugar, continue sliding scale insulin Hematologic: monitor H/H Neurologic: keep patient comfortable - monitor MS, consider neuro eval and EEG Prophylaxis: Protonix, Heparin Disposition: keep in ICU Time Spent (Minutes): 40 Notes Reviewed: senior erp consultant, renal, ID, other - ERMD Discussed with: nurses, consultants, other - FC Critical Care - Objective Vital Signs Noted Status: sedated - intubated Condition: critical HEENT: atraumatic, normocephalic, other - ETT OGT weak gag Lungs: rhonchi Heart: HR/BP stable Abdomen: soft, non-tender, active bowel sounds, feeding tube Extremities: no C/C/E Micro: Microbiology Date/Time Source Procedure Growth Status 09/14/18 09:00 Rectum Received Critical Care - Subjective ROS Limited/Unobtainable: Yes Interval Events: 77 F NHR h/o dementia, CVA, GT, HTN, HL remains on ACVC, not tolerating PS Na 167 Cr 1.7 LA elevated + hemoconcentration No gag in ER + faint gag now + F no C no further hx obtainable Condition: critical IV Access: peripheral - x2 EKG Rhythm: Sinus Rhythm FI02: 60 Vent Support Breath Rate: 14 Vent Support Mode: AC Vent Tidal Volume: 500 Sputum Amount: Small PEEP: 5.0 PIP: 23 Secretions: scant thick Subjective: ARLETTE CXR: L RC inf, small L eff, ETT ET-Tube: 7.0 ET Position: 22 Labs: Laboratory Tests noted Critical Care - Objective Last 24 Hour Vital Signs Date Time Temp Pulse Resp B/P (MAP) Pulse Ox O2 Delivery O2 Flow Rate FiO2 09/28/18 16:00 83 09/28/18 16:00 98.8 74 23 103/36 (58) 97 09/28/18 15:27 68 19 99 Nasal Cannula 2.0 28 09/28/18 15:09 68 22 99 Nasal Cannula 2.0 28 09/28/18 15:00 67 22 122/47 (72) 99 09/28/18 14:00 66 23 112/39 (63) 100 09/28/18 13:00 98.7 68 23 112/39 (63) 99 09/28/18 12:00 Nasal Cannula 2.0 09/28/18 12:00 74 09/28/18 12:00 75 25 118/48 (71) 91 09/28/18 11:12 71 22 100 Nasal Cannula 2.0 28 09/28/18 11:09 72 19 100 Nasal Cannula 2.0 28 09/28/18 11:00 69 21 129/45 (73) 99 09/28/18 10:00 69 21 119/50 (73) 100 09/28/18 09:00 73 20 122/44 (70) 100 09/28/18 08:33 70 21 142/60 (87) 100 09/28/18 08:00 Nasal Cannula 2.0 09/28/18 08:00 98.9 71 20 142/52 (82) 100 09/28/18 08:00 67 09/28/18 07:45 68 21 100 Nasal Cannula 2.0 28 09/28/18 07:20 65 20 100 Nasal Cannula 2.0 28 09/28/18 07:19 100 Nasal Cannula 2.0 28 09/28/18 07:00 62 20 147/57 (87) 100 09/28/18 06:00 66 20 143/53 (83) 100 09/28/18 05:00 73 20 140/56 (84) 99 09/28/18 04:00 69 09/28/18 04:00 Venturi Mask 09/28/18 04:00 98.7 76 23 111/46 (67) 98 09/28/18 03:15 67 20 100 Venturi Mask 6.0 28 09/28/18 03:05 64 22 100 Venturi Mask 6.0 28 09/28/18 03:00 65 23 143/50 (81) 100 8/16/19 02:00 68 22 127/47 (73) 100 09/28/18 01:00 73 22 118/67 (84) 98 09/28/18 00:00 Venturi Mask 09/28/18 00:00 98.6 84 20 124/57 (79) 96 09/28/18 00:00 73 09/27/18 23:24 73 22 100 Venturi Mask 6.0 28 09/27/18 23:10 72 16 100 Venturi Mask 6.0 28 09/27/18 23:00 72 19 113/55 (74) 99 09/27/18 22:00 79 20 119/60 (79) 97 09/27/18 21:00 77 19 122/56 (78) 98 09/27/18 20:00 98.6 86 18 110/57 (74) 94 09/27/18 20:00 Venturi Mask 09/27/18 20:00 80 09/27/18 19:06 69 22 100 Venturi Mask 6.0 28 09/27/18 19:00 70 20 130/50 (76) 100 09/27/18 18:49 65 21 98 Mechanical Ventilator 30 09/27/18 18:00 63 21 121/46 (71) 97 Accucheck: 128 Critical Care - Subjective ROS Limited/Unobtainable: No FI02: 28 Vent Support Breath Rate: 14 Vent Support Mode: CPAP Vent Tidal Volume: 500 Sputum Amount: None PEEP: 5.0 PIP: 24 Tube Feeding Amount: 20 I&O: Intake and Output 09/27/18 09/28/18 19:00 07:00 Intake Total 648.8 ml 805.0 ml Output Total 1200 ml 1025 ml Balance -551.2 ml -220.0 ml Intake Free Water 100 ml IV Total 548.8 ml 805.0 ml Tube Feeding 0 ml 0 ml Output Urine Total 1200 ml 1025 ml ET-Tube: 7.0 ET Position: 22 Marcelo Swift MD Sep 28, 2018 17:02
--- NOTE | 2018-09-28 17:55 | NUR ---
NURSE NOTES: Oxygen to 2LPM -per nasal cannula c/o RT. Will continue to monitor.
--- NOTE | 2018-09-28 18:46 | Hematology/Onc Progress Note ---
Assessment/Plan Assessment/Plan Assessment and Recs: # Thrombocytopenia --> now with thrombocytosis - potential causes multifactorial , evaluate liver and viral etiologies to begin, also could be related to underlying medications patient has received. --> Hep panel and HIV show neg results --> US abd shows no cirrhosis or hsm --> Peripheral smear ordered to evaluate for blasts /schistocytes --> abx and other meds have been reviewed --> ok for ppx if plt >50k w/ either heparin or lovenox --> Transfuse if Plt < 20k and fever, or if Plt < 10k without fever --> trend plts --> 182k-->160-->140-->119-->140k-->200k->529->527k->555k->509k --> asa but not at this time --> meds reviewed and may be 2/2 vanc and amikacin but at this time ok to continue since borderline # Anemia of iron deficiency, on iron now --> Anemia workup has been ordered, rule out gi bleed, shows AID --> No evidence of hemolysis is noted, peripheral smear has been reviewed --> Hgb goal >7. Transfuse prn. --> Iron to continue --> Medications have been reviewed --> hgb 12-->10.7-->11.3-->10.8-->11->12 # Dysphagia and now s/p nG tube feedings --> as per gi, ng tube feedsings # Respo failure on ventuntil 09/27 --> off vent since 09/28 # Dehydration --> on ivfs, currently off per renal # Sepsis --> abx per id --> adjust as needed --> reviewed(whitney/vanc)--> ctx/vanc # DVT ppx with heparin sq The timing of this note does not necessarily reflect the time of the patient was seen. GREATLY APPRECIATE CONSULTATION. Subjective Constitutional: Denies: no symptoms, chills, fever, malaise, weakness, other HEENT: Denies: no symptoms, eye pain, blurred vision, tearing, double vision, ear pain, ear discharge, nose pain, nose congestion, throat pain, throat swelling, mouth pain, mouth swelling, other Cardiovascular: Denies: no symptoms, chest pain, edema, irregular heart rate, lightheadedness, palpitations, syncope, other Respiratory: Denies: no symptoms, cough, shortness of breath, SOB with excertion, SOB at rest, sputum, wheezing, other Allergies: Coded Allergies: No Known Allergies (Unverified , 02/04/17) Subjective 09/18: is on iron, as well as broad spectrum abx, labs reviewed 09/19: no events to report, angie Robertson rn, tfs ongoing via ng, on vent to wean protocol 09/20: remains intubated, unchanged 09/21: in icu, no major changes, no f/c, no night sweats 09/23: remains in the icu, considering extubation, no f/c noted 09/24: patient unable to be weaned, para was done, daily sbt 09/25: on abx, on vent, taylor, draining well, peg ongong tfs 09/26: gtf on hold, no fevers or chills, hgb better, weaning trial 09/27: still on vent, no major changes, no f/c, seen by pulm 09/28: now off the vent, no bleeding, remains altered Objective Objective Current Medications Medications (Trade) Dose Ordered Sig/Wayne Route PRN Reason Start Time Stop Time Status Last Admin Dose Admin Acetaminophen (Tylenol) 650 mg Q4H PRN GT Mild Pain/Temp > 100.5 09/23/18 07:15 10/23/18 07:14 Acetylcysteine (Mucomyst) 100 mg Q4HRT N 09/21/18 19:00 10/21/18 18:59 09/28/18 15:12 Albuterol/ Ipratropium (Albuterol/ Ipratropium) 3 ml Q4HRT N 09/26/18 23:00 10/01/18 22:59 09/28/18 15:12 Artificial Tears (Akwa-Tears) 1 drop Q4H PRN BOTH EYES Dry Eyes 09/18/18 12:30 10/18/18 12:29 Ascorbic Acid (Vitamin C) 250 mg TWICE A DAY ORAL 09/18/18 18:00 10/18/18 17:59 09/28/18 17:17 Bisacodyl (Dulcolax) 10 mg DAILYPRN PRN RECTAL Constipation 09/14/18 12:45 10/14/18 12:44 Ceftriaxone Sodium 1 gm/ Dextrose 50 ml @ 100 mls/hr Q24H IVPB 09/25/18 21:00 10/02/18 20:59 09/27/18 21:10 Chlorhexidine Gluconate (Kamla-Hex 2%) 1 applic DAILY@2000 TOPIC 09/17/18 20:00 10/17/18 19:59 09/27/18 19:55 Dextrose (Dextrose 50%) 25 ml Q30M PRN IV Hypoglycemia 09/14/18 12:45 10/14/18 12:44 Dextrose (Dextrose 50%) 50 ml Q30M PRN IV Hypoglycemia 09/14/18 12:45 10/14/18 12:44 Diphenhydramine HCl (Benadryl) 25 mg Q6H PRN ORAL Itching/Pruritis 09/14/18 12:45 10/14/18 12:44 Docusate Sodium (Colace) 100 mg TID GT 09/28/18 13:00 10/25/18 08:59 09/28/18 14:29 Famotidine (Pepcid) 20 mg BID GT 09/28/18 18:00 10/28/18 17:59 09/28/18 17:18 Furosemide (Lasix) 20 mg DAILY GT 09/23/18 09:00 10/22/18 08:59 09/27/18 08:47 Heparin Sodium (Porcine) (Heparin 5000 units/ml) 5,000 units EVERY 12 HOURS SUBQ 09/14/18 21:00 10/14/18 20:59 09/25/18 10:08 Insulin Aspart (NovoLOG) Q6HR SUBQ 09/14/18 16:00 10/14/18 15:59 09/28/18 17:22 Insulin Detemir (Levemir) 12 units BEDTIME SUBQ 09/17/18 21:00 10/17/18 20:59 09/27/18 21:11 Magnesium Hydroxide (Mom) 30 ml HSPRN PRN ORAL Constipation 09/14/18 12:45 10/14/18 12:44 Metoclopramide HCl (Reglan) 5 mg EVERY 6 HOURS NG 09/28/18 12:00 10/28/18 11:59 09/28/18 17:16 Metoclopramide HCl (Reglan) 10 mg Q8H PRN IVP Nausea & Vomiting 09/17/18 12:30 10/17/18 12:29 Ondansetron HCl (Zofran) 4 mg Q6H PRN IVP Nausea & Vomiting 09/14/18 12:45 10/14/18 12:44 09/17/18 07:41 Vancomycin HCl (Vanco rx to dose) 1 ea DAILY PRN MISC Per rx protocol 09/26/18 12:30 10/26/18 12:29 Vancomycin HCl/ Dextrose 275 ml @ 137.5 mls/ hr Q24H IVPB 09/27/18 01:00 10/02/18 00:59 09/28/18 01:16 Last 24 Hour Vital Signs Date Time Temp Pulse Resp B/P (MAP) Pulse Ox O2 Delivery O2 Flow Rate FiO2 09/28/18 18:00 67 22 128/46 (73) 100 09/28/18 17:00 70 20 103/36 (58) 100 09/28/18 16:00 Nasal Cannula 2.0 09/28/18 16:00 83 09/28/18 16:00 98.8 74 23 103/36 (58) 97 09/28/18 15:27 68 19 99 Nasal Cannula 2.0 28 09/28/18 15:09 68 22 99 Nasal Cannula 2.0 28 09/28/18 15:00 67 22 122/47 (72) 99 09/28/18 14:00 66 23 112/39 (63) 100 09/28/18 13:00 98.7 68 23 112/39 (63) 99 09/28/18 12:00 Nasal Cannula 2.0 09/28/18 12:00 74 09/28/18 12:00 75 25 118/48 (71) 91 09/28/18 11:12 71 22 100 Nasal Cannula 2.0 28 09/28/18 11:09 72 19 100 Nasal Cannula 2.0 28 09/28/18 11:00 69 21 129/45 (73) 99 09/28/18 10:00 69 21 119/50 (73) 100 09/28/18 09:00 73 20 122/44 (70) 100 09/28/18 08:33 70 21 142/60 (87) 100 09/28/18 08:00 Nasal Cannula 2.0 09/28/18 08:00 98.9 71 20 142/52 (82) 100 09/28/18 08:00 67 09/28/18 07:45 68 21 100 Nasal Cannula 2.0 28 09/28/18 07:20 65 20 100 Nasal Cannula 2.0 28 09/28/18 07:19 100 Nasal Cannula 2.0 28 09/28/18 07:00 62 20 147/57 (87) 100 09/28/18 06:00 66 20 143/53 (83) 100 09/28/18 05:00 73 20 140/56 (84) 99 09/28/18 04:00 69 09/28/18 04:00 Venturi Mask 09/28/18 04:00 98.7 76 23 111/46 (67) 98 09/28/18 03:15 67 20 100 Venturi Mask 6.0 28 09/28/18 03:05 64 22 100 Venturi Mask 6.0 28 09/28/18 03:00 65 23 143/50 (81) 100 09/28/18 02:00 68 22 127/47 (73) 100 09/28/18 01:00 73 22 118/67 (84) 98 09/28/18 00:00 Venturi Mask 09/28/18 00:00 98.6 84 20 124/57 (79) 96 09/28/18 00:00 73 09/27/18 23:24 73 22 100 Venturi Mask 6.0 28 09/27/18 23:10 72 16 100 Venturi Mask 6.0 28 09/27/18 23:00 72 19 113/55 (74) 99 09/27/18 22:00 79 20 119/60 (79) 97 09/27/18 21:00 77 19 122/56 (78) 98 09/27/18 20:00 98.6 86 18 110/57 (74) 94 09/27/18 20:00 Venturi Mask 09/27/18 20:00 80 09/27/18 19:06 69 22 100 Venturi Mask 6.0 28 09/27/18 19:00 70 20 130/50 (76) 100 09/27/18 18:49 65 21 98 Mechanical Ventilator 30 09/27/18 18:00 63 21 121/46 (71) 97 09/27/18 17:00 70 17 119/50 (73) 97 09/27/18 16:21 100 Cool Aerosol 8.0 30 09/27/18 16:00 Mechanical Ventilator 09/27/18 16:00 30 09/27/18 16:00 97.8 67 22 119/55 (76) 98 09/27/18 16:00 59 09/27/18 15:59 Mechanical Ventilator 30 09/27/18 15:59 Mechanical Ventilator 30 09/27/18 15:00 55 14 138/58 (84) 98 09/27/18 14:00 56 14 113/49 (70) 98 09/27/18 13:00 57 14 106/48 (67) 99 09/27/18 12:33 62 14 30 30 09/27/18 12:00 30 09/27/18 12:00 Mechanical Ventilator 09/27/18 12:00 66 09/27/18 12:00 98.6 65 20 112/50 (70) 98 09/27/18 11:29 Mechanical Ventilator 30 09/27/18 11:29 Mechanical Ventilator 30 09/27/18 11:29 61 22 30 30 09/27/18 11:00 60 20 121/44 (69) 100 09/27/18 10:00 61 22 108/69 (82) 98 09/27/18 09:22 99 09/27/18 09:06 63 21 30 30 09/27/18 09:00 61 21 115/48 (70) 99 09/27/18 08:00 65 09/27/18 08:00 98.6 61 21 113/46 (68) 99 09/27/18 08:00 30 09/27/18 08:00 Mechanical Ventilator 09/27/18 07:48 99 22 30 30 09/27/18 07:47 Mechanical Ventilator 30 09/27/18 07:47 Mechanical Ventilator 30 09/27/18 07:00 62 15 125/44 (71) 98 09/27/18 06:00 60 14 112/46 (68) 99 09/27/18 05:00 60 14 123/45 (71) 100 09/27/18 04:57 59 14 30 09/27/18 04:00 30 09/27/18 04:00 Mechanical Ventilator 09/27/18 04:00 98.6 60 14 119/45 (69) 100 09/27/18 03:19 63 09/27/18 03:00 56 14 153/58 (89) 100 09/27/18 02:53 55 14 100 Mechanical Ventilator 30 09/27/18 02:40 59 14 100 Mechanical Ventilator 30 09/27/18 02:39 59 14 30 09/27/18 02:00 58 16 139/49 (79) 100 09/27/18 01:00 61 21 133/46 (75) 100 09/27/18 00:50 63 14 30 09/27/18 00:00 Mechanical Ventilator 09/27/18 00:00 98.6 73 15 142/58 (86) 99 09/26/18 23:24 58 09/26/18 23:15 60 14 100 09/26/18 23:00 64 21 118/45 (69) 100 09/26/18 22:49 62 14 100 Mechanical Ventilator 30 09/26/18 22:35 55 14 100 Mechanical Ventilator 30 09/26/18 22:35 62 14 30 09/26/18 22:00 56 14 139/46 (77) 100 09/26/18 21:00 57 14 103/45 (64) 100 09/26/18 20:43 56 14 30 09/26/18 20:00 98.8 66 22 124/49 (74) 100 09/26/18 20:00 30 09/26/18 20:00 67 09/26/18 20:00 Mechanical Ventilator 09/26/18 19:11 70 23 98 Mechanical Ventilator 30 09/26/18 19:11 Mechanical Ventilator 30 09/26/18 19:11 Mechanical Ventilator 09/26/18 19:10 72 14 30 09/26/18 19:00 76 26 123/48 (73) 98 Intake and Output 09/27/18 09/28/18 19:00 07:00 Intake Total 648.8 ml 805.0 ml Output Total 1200 ml 1025 ml Balance -551.2 ml -220.0 ml Intake Free Water 100 ml IV Total 548.8 ml 805.0 ml Tube Feeding 0 ml 0 ml Output Urine Total 1200 ml 1025 ml Labs Test 09/26/18 00:10 09/26/18 04:10 09/26/18 10:15 09/27/18 04:10 Vancomycin Level Trough 14.7 ug/mL (5.0-12.0) White Blood Count 8.4 K/UL (4.8-10.8) 6.5 K/UL (4.8-10.8) Red Blood Count 3.85 M/UL (4.20-5.40) 4.13 M/UL (4.20-5.40) Hemoglobin 12.1 G/DL (12.0-16.0) 13.0 G/DL (12.0-16.0) Hematocrit 37.0 % (37.0-47.0) 39.7 % (37.0-47.0) Mean Corpuscular Volume 96 FL (80-99) 96 FL (80-99) Mean Corpuscular Hemoglobin 31.3 PG (27.0-31.0) 31.5 PG (27.0-31.0) Mean Corpuscular Hemoglobin Concent 32.6 G/DL (32.0-36.0) 32.7 G/DL (32.0-36.0) Red Cell Distribution Width 13.5 % (11.6-14.8) 13.7 % (11.6-14.8) Platelet Count 537 K/UL (150-450) 506 K/UL (150-450) Mean Platelet Volume 5.8 FL (6.5-10.1) 5.5 FL (6.5-10.1) Neutrophils (%) (Auto) 69.1 % (45.0-75.0) 63.5 % (45.0-75.0) Lymphocytes (%) (Auto) 22.4 % (20.0-45.0) 26.9 % (20.0-45.0) Monocytes (%) (Auto) 6.0 % (1.0-10.0) 6.7 % (1.0-10.0) Eosinophils (%) (Auto) 1.9 % (0.0-3.0) 2.1 % (0.0-3.0) Basophils (%) (Auto) 0.6 % (0.0-2.0) 0.8 % (0.0-2.0) Sodium Level 135 MMOL/L (136-145) 136 MMOL/L (136-145) Potassium Level 3.8 MMOL/L (3.5-5.1) 4.5 MMOL/L (3.5-5.1) Chloride Level 103 MMOL/L (98-107) 104 MMOL/L (98-107) Carbon Dioxide Level 26 MMOL/L (21-32) 23 MMOL/L (21-32) Anion Gap 7 mmol/L (5-15) 9 mmol/L (5-15) Blood Urea Nitrogen 7 mg/dL (7-18) 5 mg/dL (7-18) Creatinine 0.6 MG/DL (0.55-1.30) 0.6 MG/DL (0.55-1.30) Estimat Glomerular Filtration Rate mL/min (>60) mL/min (>60) Glucose Level 171 MG/DL (74-106) 214 MG/DL (74-106) Uric Acid 3.4 MG/DL (2.6-7.2) Calcium Level 9.1 MG/DL (8.5-10.1) 8.8 MG/DL (8.5-10.1) Phosphorus Level 2.5 MG/DL (2.5-4.9) Magnesium Level 1.9 MG/DL (1.8-2.4) Total Bilirubin 0.3 MG/DL (0.2-1.0) Aspartate Amino Transf (AST/SGOT) 17 U/L (15-37) Alanine Aminotransferase (ALT/SGPT) 9 U/L (12-78) Alkaline Phosphatase 93 U/L (46-116) C-Reactive Protein, Quantitative 1.3 mg/dL (0.00-0.90) Pro-B-Type Natriuretic Peptide 212 pg/mL (0-125) Total Protein 6.9 G/DL (6.4-8.2) Albumin 1.7 G/DL (3.4-5.0) Globulin 5.2 g/dL Albumin/Globulin Ratio 0.3 (1.0-2.7) Arterial Blood pH 7.482 (7.350-7.450) Arterial Blood Partial Pressure CO2 29.0 mmHg (35.0-45.0) Arterial Blood Partial Pressure O2 99.5 mmHg (75.0-100.0) Arterial Blood HCO3 21.2 mmol/L (22.0-26.0) Arterial Blood Oxygen Saturation 97.5 % (95-100) Arterial Blood Base Excess -1.3 (-2-2) Ray Test Positive Test 09/27/18 10:05 09/28/18 03:45 09/28/18 10:13 Arterial Blood pH 7.529 (7.350-7.450) 7.461 (7.350-7.450) Arterial Blood Partial Pressure CO2 27.1 mmHg (35.0-45.0) 33.0 mmHg (35.0-45.0) Arterial Blood Partial Pressure O2 108.7 mmHg (75.0-100.0) 102.9 mmHg (75.0-100.0) Arterial Blood HCO3 22.1 mmol/L (22.0-26.0) 23.0 mmol/L (22.0-26.0) Arterial Blood Oxygen Saturation 98.0 % (95-100) 97.7 % (95-100) Arterial Blood Base Excess 0.5 (-2-2) -0.2 (-2-2) Ray Test Positive Positive White Blood Count 8.6 K/UL (4.8-10.8) Red Blood Count 3.80 M/UL (4.20-5.40) Hemoglobin 12.0 G/DL (12.0-16.0) Hematocrit 36.0 % (37.0-47.0) Mean Corpuscular Volume 95 FL (80-99) Mean Corpuscular Hemoglobin 31.7 PG (27.0-31.0) Mean Corpuscular Hemoglobin Concent 33.4 G/DL (32.0-36.0) Red Cell Distribution Width 13.4 % (11.6-14.8) Platelet Count 479 K/UL (150-450) Mean Platelet Volume 5.4 FL (6.5-10.1) Neutrophils (%) (Auto) 65.9 % (45.0-75.0) Lymphocytes (%) (Auto) 26.8 % (20.0-45.0) Monocytes (%) (Auto) 5.0 % (1.0-10.0) Eosinophils (%) (Auto) 1.4 % (0.0-3.0) Basophils (%) (Auto) 0.9 % (0.0-2.0) Sodium Level 134 MMOL/L (136-145) Potassium Level 3.3 MMOL/L (3.5-5.1) Chloride Level 103 MMOL/L (98-107) Carbon Dioxide Level 25 MMOL/L (21-32) Anion Gap 6 mmol/L (5-15) Blood Urea Nitrogen 4 mg/dL (7-18) Creatinine 0.6 MG/DL (0.55-1.30) Estimat Glomerular Filtration Rate mL/min (>60) Glucose Level 202 MG/DL (74-106) Calcium Level 8.7 MG/DL (8.5-10.1) Phosphorus Level 3.0 MG/DL (2.5-4.9) Magnesium Level 1.8 MG/DL (1.8-2.4) Total Bilirubin 0.3 MG/DL (0.2-1.0) Aspartate Amino Transf (AST/SGOT) 15 U/L (15-37) Alanine Aminotransferase (ALT/SGPT) 10 U/L (12-78) Alkaline Phosphatase 96 U/L (46-116) Total Protein 6.7 G/DL (6.4-8.2) Albumin 1.7 G/DL (3.4-5.0) Globulin 5.0 g/dL Albumin/Globulin Ratio 0.3 (1.0-2.7) Height (Feet): 5 Height (Inches): 3.00 Weight (Pounds): 125 Objective Physical Exam: Vitals: reviewed General Appearance: NAD HEENT: normocephalic, atraumatic ++ogt Chest: normal breath sounds bilaterally OFF VENT Cardiovascular: normal peripheral pulses, normal rate Abdomen: normal bowel sounds, soft, nontender ++ gtube Extremities: normal range of motion Mateo Wei MD Sep 28, 2018 18:46
--- NOTE | 2018-09-28 19:24 | NUR ---
HAND-OFF: Report given to Severino W[place]. pt in no acute distress.
--- NOTE | 2018-09-28 19:45 | NUR ---
NURSE NOTES: PATIENT OPEN EYES, ABLE TO FOLLOWED COMMANDS SUCH OPEN AND CLOSE MOUTH AT THIS TIME, RESPIRATION REGULAR ON O2 2LPM VIA NC, O2 SATURATION OVER 98% NOTED, ABDOMEN SOFT, NO BOWEL MOVEMENT, G TUBE INTACT AND PATENT, NO RESIDUE NOTED, ONGOING GLUCERNA 1.5 AT 25ML/HR AT THIS TIME, GOAL IS 55ML/HR, KEPT HOB OVER 30 DEGREES, F/C INTACT AND PATENT, YELLOW COLOR URINE OUTED, PICC LINE TO LEFT UPPER ARM INTACT AND PATENT, DRIED AND CLEANED DRESSING STATUS, ON P200 BED AND BED ALARM, MADE LOWER BED POSITION, PROVIDED CALL LIGHT WITHIN REACH, WILL CONTINUE TO MONITOR.
[2018-09-28] MEDS: Dyna-Hex 2% Top Sol 2oz TOPIC SCH (19:51)
--- NOTE | 2018-09-28 20:40 | NUR ---
NURSE NOTES: PT'S BROTHER VISITED.
[2018-09-28] MEDS: cefTRIAXone 1 GM in D5W 50 ML IVPB SCH (20:49)
[2018-09-28] MEDS: Levemir Flexpen SUBQ SCH (20:51)
--- NOTE | 2018-09-28 21:45 | NUR ---
NURSE NOTES: ORAL CARE WAS DONE, PATIENT COOPERATED AT THIS TIME, WILL CONTINUE TO MONITOR.
[2018-09-29] VITALS (18 sets, daily range): BP systolic 117–148; BP diastolic 48–62
--- NOTE | 2018-09-29 | NUR ---
NURSE NOTES: ORAL CARE WAS DONE, NO PAIN OR DISTRESS NOTED AT THIS TIME.
[2018-09-29] MEDS: Vancomycin 1.5gm Premix IVPB SCH (01:17)
--- NOTE | 2018-09-29 02:15 | NUR ---
NURSE NOTES: PATIENT ASLEEP STATUS, WILL CONTINUE PLAN OF CARE.
[2018-09-29] MEDS: Albuterol/Ipratropium 3ml neb HHN SCH ×6 (02:53→22:24)
--- NOTE | 2018-09-29 04:20 | NUR ---
NURSE NOTES: MORNING CARE AND ORAL CARE WAS DONE.
[2018-09-29] MEDS: Metoclopramide 10mg/10ml Liq NG SCH ×4 (05:41→23:52)
[2018-09-29] MEDS: NovoLOG Insulin Flexpen SUBQ SCH ×4 (05:42→23:53)
--- NOTE | 2018-09-29 06:20 | NUR ---
NURSE NOTES: NO ACUTE DISTRESS NOTED AT THIS SHIFT.
[2018-09-29 06:31] LABS: BASOPHILS % (AUTO) 1.3 % (0.0-2.0); EOSINOPHILS % (AUTO) 1.7 % (0.0-3.0); HEMATOCRIT 42.3 % (37.0-47.0); HEMOGLOBIN 13.7 G/DL (12.0-16.0); LYMPHOCYTES % (AUTO) 28.6 % (20.0-45.0); MEAN CORPUSCULAR VOLUME 96 FL (80-99); MONOCYTES % (AUTO) 6.3 % (1.0-10.0); NEUTROPHILS % (AUTO) 62.1 % (45.0-75.0); PLATELET COUNT 419 K/UL (150-450); RED BLOOD COUNT 4.39 M/UL (4.20-5.40); RED CELL DISTRIBUTION WIDTH 13.5 % (11.6-14.8)
[2018-09-29 06:58] LABS: ANION GAP 10 mmol/L (5-15); BLOOD UREA NITROGEN 4 mg/dL (7-18); CALCIUM 9.2 MG/DL (8.5-10.1); CARBON DIOXIDE 24 MMOL/L (21-32); CHLORIDE 106 MMOL/L (98-107); CREATININE 0.5 MG/DL (0.55-1.30); SODIUM 140 MMOL/L (136-145)
--- NOTE | 2018-09-29 07:20 | NUR ---
NURSE NOTES: Report received from FELIX Haq. Pt opens eyes to voice, unable to follow commands. NSR on school bus monitor. NC 2L, saturation 100%. No respiratory distress noted. G Tube patent, receiving Glucerna 1.5 @ 35 mL/hr with 0 residual. Nunez patent, draining pale yellow urine. Lt upper arm PICC line patent and asymptomatic, open with TKO. Safety measures in place, bed at lowest position, side rails up x3, with call gómez in place. Will resume plan of care.
--- NOTE | 2018-09-29 09:06 | General Progress Note ---
Assessment/Plan Problem List: (1) DM (diabetes mellitus) ICD Codes: E11.9 - Type 2 diabetes mellitus without complications SNOMED: 84403088 (2) CVA, old, hemiparesis ICD Codes: I69.359 - Hemiplegia and hemiparesis following cerebral infarction affecting unspecified side; R65.20 - Severe sepsis without septic shock SNOMED: 617867209 (3) Severe sepsis ICD Codes: A41.9 - Sepsis, unspecified organism; R65.20 - Severe sepsis without septic shock SNOMED: 49226643 (4) Respiratory failure ICD Codes: J96.90 - Respiratory failure, unspecified, unspecified whether with hypoxia or hypercapnia SNOMED: 707212776 (5) Dehydration ICD Codes: E86.0 - Dehydration SNOMED: 22832721 (6) Large ischemic R MCA stroke (7) HTN (hypertension) ICD Codes: I10 - Essential (primary) hypertension SNOMED: 75472950 (8) G tube feedings ICD Codes: Z93.1 - Gastrostomy status SNOMED: 725532526, 045808126, 361942174 Status: unchanged Assessment/Plan: GTF>> 35 cc>>> increase as tolerated fu labs abx per ID respiratory care fu abd us>> neg Subjective ROS Limited/Unobtainable: No Allergies: Coded Allergies: No Known Allergies (Unverified , 02/04/17) Objective Last 24 Hour Vital Signs Date Time Temp Pulse Resp B/P (MAP) Pulse Ox O2 Delivery O2 Flow Rate FiO2 09/29/18 07:23 80 22 98 Nasal Cannula 2.0 28 09/29/18 07:15 71 22 100 Nasal Cannula 2.0 28 09/29/18 07:15 100 Nasal Cannula 2.0 28 09/29/18 07:00 69 23 122/48 (72) 99 09/29/18 06:00 70 23 136/54 (81) 100 09/29/18 05:00 72 22 124/49 (74) 100 09/29/18 04:00 98.5 73 20 121/56 (77) 100 09/29/18 04:00 Nasal Cannula 2.0 09/29/18 03:10 76 09/29/18 03:08 73 21 100 Nasal Cannula 2.0 28 09/29/18 03:00 71 21 133/52 (79) 100 09/29/18 02:53 66 21 100 Nasal Cannula 2.0 28 09/29/18 02:00 65 22 134/55 (81) 100 09/29/18 01:00 72 22 124/59 (80) 100 09/29/18 00:00 Nasal Cannula 2.0 09/29/18 00:00 98.5 81 21 134/52 (79) 100 09/28/18 23:20 78 22 100 Nasal Cannula 2.0 28 09/28/18 23:09 64 09/28/18 23:05 64 21 100 Nasal Cannula 2.0 28 09/28/18 23:00 63 20 112/52 (72) 100 09/28/18 22:00 76 18 114/46 (68) 99 09/28/18 21:00 81 24 129/52 (77) 98 09/28/18 20:00 Nasal Cannula 2.0 09/28/18 20:00 98.5 83 22 94/44 (61) 99 09/28/18 19:14 117 24 100 Nasal Cannula 2.0 28 09/28/18 19:10 113 09/28/18 19:00 69 22 140/51 (80) 100 09/28/18 18:59 65 21 100 Nasal Cannula 2.0 28 09/28/18 18:58 100 Nasal Cannula 2.0 28 09/28/18 18:00 67 22 128/46 (73) 100 09/28/18 17:00 70 20 103/36 (58) 100 09/28/18 16:00 Nasal Cannula 2.0 09/28/18 16:00 83 09/28/18 16:00 98.8 74 23 103/36 (58) 97 09/28/18 15:27 68 19 99 Nasal Cannula 2.0 28 09/28/18 15:09 68 22 99 Nasal Cannula 2.0 28 09/28/18 15:00 67 22 122/47 (72) 99 09/28/18 14:00 66 23 112/39 (63) 100 09/28/18 13:00 98.7 68 23 112/39 (63) 99 09/28/18 12:00 Nasal Cannula 2.0 09/28/18 12:00 74 09/28/18 12:00 75 25 118/48 (71) 91 09/28/18 11:12 71 22 100 Nasal Cannula 2.0 28 09/28/18 11:09 72 19 100 Nasal Cannula 2.0 28 09/28/18 11:00 69 21 129/45 (73) 99 09/28/18 10:00 69 21 119/50 (73) 100 Intake and Output 09/28/18 09/29/18 19:00 07:00 Intake Total 690 ml 795 ml Output Total 420 ml 515 ml Balance 270 ml 280 ml Intake Free Water 100 ml IV Total 460 ml 325 ml Tube Feeding 130 ml 370 ml Other 100 ml Output Urine Total 420 ml 515 ml # Bowel Movements 2 Laboratory Tests 09/28/18 10:13: Arterial Blood pH 7.461H, Arterial Blood Partial Pressure CO2 33.0L, Arterial Blood Partial Pressure O2 102.9H, Arterial Blood HCO3 23.0, Arterial Blood Oxygen Saturation 97.7, Arterial Blood Base Excess -0.2, Ray Test Positive 09/29/18 04:33: White Blood Count 6.0, Red Blood Count 4.39, Hemoglobin 13.7, Hematocrit 42.3, Mean Corpuscular Volume 96, Mean Corpuscular Hemoglobin 31.1H, Mean Corpuscular Hemoglobin Concent 32.3, Red Cell Distribution Width 13.5, Platelet Count 419, Mean Platelet Volume 5.0L, Neutrophils (%) (Auto) 62.1, Lymphocytes (%) (Auto) 28.6, Monocytes (%) (Auto) 6.3, Eosinophils (%) (Auto) 1.7, Basophils (%) (Auto ) 1.3, Sodium Level 140, Potassium Level 4.0, Chloride Level 106, Carbon Dioxide Level 24, Anion Gap 10, Blood Urea Nitrogen 4L, Creatinine 0.5L, Estimat Glomerular Filtration Rate , Glucose Level 154H, Calcium Level 9.2 Height (Feet): 5 Height (Inches): 3.00 Weight (Pounds): 125 General Appearance: no apparent distress EENT: normal ENT inspection Neck: supple Cardiovascular: normal rate Respiratory/Chest: decreased breath sounds Abdomen: normal bowel sounds, non tender, soft Extremities: non-tender Ovi Brown MD Sep 29, 2018 09:06
[2018-09-29] MEDS: Docusate 100mg tablet GT SCH ×3 (09:07→17:20)
[2018-09-29] MEDS: Heparin 5000 units/ml inj SUBQ SCH ×2 (09:07→20:36)
[2018-09-29] MEDS: Ascorbic Acid 500mg tab ORAL SCH ×2 (09:08→17:20)
--- NOTE | 2018-09-29 09:30 | NUR ---
NURSE NOTES: Turned and repositioned the patient. Oral care done. Temp 99.5. Cooling measures initiated. Will continue to monitor.
--- NOTE | 2018-09-29 10:02 | Nephrology Progress Note ---
Assessment/Plan Problem List: (1) KEL (acute kidney injury) (2) Respiratory failure (3) Dehydration (4) Electrolyte imbalance (5) G tube feedings (6) Hypokalemia (7) CVA, old, hemiparesis (8) DM (diabetes mellitus) Plan now extubated - ( 09/27/18) antibiotics start feeding DC IV fluids IV KCl Pulm support correct lytes BS and BP check and monitor per consultants Subjective ROS Limited/Unobtainable: No Objective Objective Last 24 Hour Vital Signs Date Time Temp Pulse Resp B/P (MAP) Pulse Ox O2 Delivery O2 Flow Rate FiO2 09/29/18 07:23 80 22 98 Nasal Cannula 2.0 28 09/29/18 07:15 71 22 100 Nasal Cannula 2.0 28 09/29/18 07:15 100 Nasal Cannula 2.0 28 09/29/18 07:00 69 23 122/48 (72) 99 09/29/18 06:00 70 23 136/54 (81) 100 09/29/18 05:00 72 22 124/49 (74) 100 09/29/18 04:00 98.5 73 20 121/56 (77) 100 09/29/18 04:00 Nasal Cannula 2.0 09/29/18 03:10 76 09/29/18 03:08 73 21 100 Nasal Cannula 2.0 28 09/29/18 03:00 71 21 133/52 (79) 100 09/29/18 02:53 66 21 100 Nasal Cannula 2.0 28 09/29/18 02:00 65 22 134/55 (81) 100 09/29/18 01:00 72 22 124/59 (80) 100 09/29/18 00:00 Nasal Cannula 2.0 09/29/18 00:00 98.5 81 21 134/52 (79) 100 09/28/18 23:20 78 22 100 Nasal Cannula 2.0 28 09/28/18 23:09 64 09/28/18 23:05 64 21 100 Nasal Cannula 2.0 28 09/28/18 23:00 63 20 112/52 (72) 100 09/28/18 22:00 76 18 114/46 (68) 99 09/28/18 21:00 81 24 129/52 (77) 98 09/28/18 20:00 Nasal Cannula 2.0 09/28/18 20:00 98.5 83 22 94/44 (61) 99 09/28/18 19:14 117 24 100 Nasal Cannula 2.0 28 09/28/18 19:10 113 09/28/18 19:00 69 22 140/51 (80) 100 09/28/18 18:59 65 21 100 Nasal Cannula 2.0 28 09/28/18 18:58 100 Nasal Cannula 2.0 28 09/28/18 18:00 67 22 128/46 (73) 100 09/28/18 17:00 70 20 103/36 (58) 100 09/28/18 16:00 Nasal Cannula 2.0 09/28/18 16:00 83 09/28/18 16:00 98.8 74 23 103/36 (58) 97 09/28/18 15:27 68 19 99 Nasal Cannula 2.0 28 09/28/18 15:09 68 22 99 Nasal Cannula 2.0 28 09/28/18 15:00 67 22 122/47 (72) 99 09/28/18 14:00 66 23 112/39 (63) 100 09/28/18 13:00 98.7 68 23 112/39 (63) 99 09/28/18 12:00 Nasal Cannula 2.0 09/28/18 12:00 74 09/28/18 12:00 75 25 118/48 (71) 91 09/28/18 11:12 71 22 100 Nasal Cannula 2.0 28 09/28/18 11:09 72 19 100 Nasal Cannula 2.0 28 09/28/18 11:00 69 21 129/45 (73) 99 Intake and Output 09/28/18 09/29/18 19:00 07:00 Intake Total 690 ml 795 ml Output Total 420 ml 515 ml Balance 270 ml 280 ml Intake Free Water 100 ml IV Total 460 ml 325 ml Tube Feeding 130 ml 370 ml Other 100 ml Output Urine Total 420 ml 515 ml # Bowel Movements 2 Laboratory Tests 09/28/18 10:13: Arterial Blood pH 7.461H, Arterial Blood Partial Pressure CO2 33.0L, Arterial Blood Partial Pressure O2 102.9H, Arterial Blood HCO3 23.0, Arterial Blood Oxygen Saturation 97.7, Arterial Blood Base Excess -0.2, Ray Test Positive 09/29/18 04:33: White Blood Count 6.0, Red Blood Count 4.39, Hemoglobin 13.7, Hematocrit 42.3, Mean Corpuscular Volume 96, Mean Corpuscular Hemoglobin 31.1H, Mean Corpuscular Hemoglobin Concent 32.3, Red Cell Distribution Width 13.5, Platelet Count 419, Mean Platelet Volume 5.0L, Neutrophils (%) (Auto) 62.1, Lymphocytes (%) (Auto) 28.6, Monocytes (%) (Auto) 6.3, Eosinophils (%) (Auto) 1.7, Basophils (%) (Auto ) 1.3, Sodium Level 140, Potassium Level 4.0, Chloride Level 106, Carbon Dioxide Level 24, Anion Gap 10, Blood Urea Nitrogen 4L, Creatinine 0.5L, Estimat Glomerular Filtration Rate , Glucose Level 154H, Calcium Level 9.2 Height (Feet): 5 Height (Inches): 3.00 Weight (Pounds): 125 General Appearance: no apparent distress EENT: other - remains extubated Cardiovascular: normal rate Respiratory/Chest: decreased breath sounds Abdomen: soft Objective no change Dwayne Vernon MD Sep 29, 2018 10:02
--- NOTE | 2018-09-29 11:06 | NUR ---
NURSE NOTES: Oral care completed. No distress noted. Dr Swift came and assessed pt. Discussed pt current condition with the Dr. Order received to Transfer to SDU. Notified charge nurse.
--- NOTE | 2018-09-29 14:01 | Pulmonolgy Critical Care Note ---
Critical Care - Asmt/Plan Assessment/Plan: Pulmonary CCM Progress Note Critical Care - Asmt/Plan Problems: (1) Endotracheally intubated (2) Respiratory failure - s/p extubation (3) Sepsis, remains afebrile (4) Pneumonia (5) Electrolyte imbalance (6) Dehydration (7) Altered mental status (8) Hypernatremia (9) Respiratory failure (10) Lactic acid acidosis (11) H/O: CVA (cerebrovascular accident) (12) G tube feedings (13) KEL (acute kidney injury) Respiratory: monitor respiratory rate, adjust FIO2, ABG, other - HHN's, pulmonary hygiene Cardiac: continue to monitor HR/BP Renal: keep negative Infectious Disease: check cultures, continue antibiotics per ID Gastrointestinal: enteral feeding Endocrine: monitor blood sugar, continue sliding scale insulin Hematologic: monitor H/H Neurologic: keep patient comfortable - monitor MS, consider neuro eval and EEG Prophylaxis: Protonix, Heparin Disposition: keep in ICU Time Spent (Minutes): 40 Notes Reviewed: bellows filler, renal, ID, other - ERMD Discussed with: nurses, consultants, other - FC Critical Care - Objective Vital Signs Noted Status: sedated - intubated Condition: critical HEENT: atraumatic, normocephalic, other - ETT OGT weak gag Lungs: rhonchi Heart: HR/BP stable Abdomen: soft, non-tender, active bowel sounds, feeding tube Extremities: no C/C/E Micro: Microbiology Date/Time Source Procedure Growth Status 09/14/18 09:00 Rectum Received Critical Care - Subjective ROS Limited/Unobtainable: Yes Interval Events: 77 F NHR h/o dementia, CVA, GT, HTN, HL remains on ACVC, not tolerating PS Na 167 Cr 1.7 LA elevated + hemoconcentration No gag in ER + faint gag now + F no C no further hx obtainable Condition: critical IV Access: peripheral - x2 EKG Rhythm: Sinus Rhythm FI02: 60 Vent Support Breath Rate: 14 Vent Support Mode: AC Vent Tidal Volume: 500 Sputum Amount: Small PEEP: 5.0 PIP: 23 Secretions: scant thick Subjective: ARLETTE CXR: L RC inf, small L eff, ETT ET-Tube: 7.0 ET Position: 22 Labs: Laboratory Tests noted Critical Care - Objective Last 24 Hour Vital Signs Date Time Temp Pulse Resp B/P (MAP) Pulse Ox O2 Delivery O2 Flow Rate FiO2 09/29/18 13:00 72 20 125/62 (83) 100 09/29/18 12:00 99.2 79 21 131/49 (76) 99 09/29/18 12:00 Nasal Cannula 2.0 09/29/18 11:35 81 09/29/18 11:00 74 22 130/50 (76) 100 09/29/18 10:56 66 20 100 Nasal Cannula 2.0 28 09/29/18 10:42 65 20 100 Nasal Cannula 2.0 28 09/29/18 10:00 68 21 134/56 (82) 100 09/29/18 09:00 83 23 117/56 (76) 95 09/29/18 08:00 99.5 82 22 126/50 (75) 97 09/29/18 08:00 Nasal Cannula 2.0 09/29/18 07:24 75 09/29/18 07:23 80 22 98 Nasal Cannula 2.0 28 09/29/18 07:15 71 22 100 Nasal Cannula 2.0 28 09/29/18 07:15 100 Nasal Cannula 2.0 28 09/29/18 07:00 69 23 122/48 (72) 99 09/29/18 06:00 70 23 136/54 (81) 100 09/29/18 05:00 72 22 124/49 (74) 100 09/29/18 04:00 98.5 73 20 121/56 (77) 100 09/29/18 04:00 Nasal Cannula 2.0 09/29/18 03:10 76 09/29/18 03:08 73 21 100 Nasal Cannula 2.0 28 09/29/18 03:00 71 21 133/52 (79) 100 09/29/18 02:53 66 21 100 Nasal Cannula 2.0 28 09/29/18 02:00 65 22 134/55 (81) 100 09/29/18 01:00 72 22 124/59 (80) 100 09/29/18 00:00 Nasal Cannula 2.0 09/29/18 00:00 98.5 81 21 134/52 (79) 100 09/28/18 23:20 78 22 100 Nasal Cannula 2.0 28 09/28/18 23:09 64 09/28/18 23:05 64 21 100 Nasal Cannula 2.0 28 09/28/18 23:00 63 20 112/52 (72) 100 09/28/18 22:00 76 18 114/46 (68) 99 09/28/18 21:00 81 24 129/52 (77) 98 09/28/18 20:00 Nasal Cannula 2.0 09/28/18 20:00 98.5 83 22 94/44 (61) 99 09/28/18 19:14 117 24 100 Nasal Cannula 2.0 28 09/28/18 19:10 113 09/28/18 19:00 69 22 140/51 (80) 100 09/28/18 18:59 65 21 100 Nasal Cannula 2.0 28 09/28/18 18:58 100 Nasal Cannula 2.0 28 09/28/18 18:00 67 22 128/46 (73) 100 09/28/18 17:00 70 20 103/36 (58) 100 09/28/18 16:00 Nasal Cannula 2.0 09/28/18 16:00 83 09/28/18 16:00 98.8 74 23 103/36 (58) 97 09/28/18 15:27 68 19 99 Nasal Cannula 2.0 28 09/28/18 15:09 68 22 99 Nasal Cannula 2.0 28 09/28/18 15:00 67 22 122/47 (72) 99 Accucheck: 150 Critical Care - Subjective ROS Limited/Unobtainable: No Condition: improving FI02: 28 Vent Support Breath Rate: 14 Vent Support Mode: CPAP Vent Tidal Volume: 500 Sputum Amount: None PEEP: 5.0 PIP: 24 Tube Feeding Amount: 45 I&O: Intake and Output 09/28/18 09/29/18 19:00 07:00 Intake Total 690 ml 795 ml Output Total 420 ml 515 ml Balance 270 ml 280 ml Intake Free Water 100 ml IV Total 460 ml 325 ml Tube Feeding 130 ml 370 ml Other 100 ml Output Urine Total 420 ml 515 ml # Bowel Movements 2 ET-Tube: 7.0 ET Position: 22 Marcelo Swift MD Sep 29, 2018 14:01
--- NOTE | 2018-09-29 14:17 | Infectious Diseases Prog Note ---
Assessment/Plan Assessment/Plan ASSESSMENT AND PLAN: 1. 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 ICU care. 3. Skin care protocol. 4. History of CVA and TIA, and aspiration risk. 5. Dementia. 6. Hypertension. 7. Blood pressure treatment per primary. 8. Acute kidney injury. 9. Weakness. 10. Hemiplegia. 11. Dysphagia, G-tube. 12. Encephalopathy. 13. No known drug allergies. 14. Social history is negative. 15. Family history is noncontributory. 16. MAR was noted. 17. Case discussed with RN. 18. Continue treatment per primary consultants. 19. Notes and records were noted. Orders were entered. 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, vre colonization Subjective Constitutional: Reports: other - extubated ; Denies: fever HEENT: Denies: congestion Respiratory: Denies: shortness of breath Cardiovascular: Reports: other - no pressors ; Denies: chest pain Gastrointestinal/Abdominal: Denies: nausea, vomiting, diarrhea Genitourinary: Reports: other - + taylor - urine Neurologic: Denies: numbness Psychiatric: Denies: depression Skin: Denies: rash Hematologic: Denies: bleeding Musculoskeletal: Denies: pain Allergies: Coded Allergies: No Known Allergies (Unverified , 02/04/17) Objective Vital Signs Last 24 Hour Vital Signs Date Time Temp Pulse Resp B/P (MAP) Pulse Ox O2 Delivery O2 Flow Rate FiO2 09/29/18 13:00 72 20 125/62 (83) 100 09/29/18 12:00 99.2 79 21 131/49 (76) 99 09/29/18 12:00 Nasal Cannula 2.0 09/29/18 11:35 81 09/29/18 11:00 74 22 130/50 (76) 100 09/29/18 10:56 66 20 100 Nasal Cannula 2.0 28 09/29/18 10:42 65 20 100 Nasal Cannula 2.0 28 09/29/18 10:00 68 21 134/56 (82) 100 09/29/18 09:00 83 23 117/56 (76) 95 09/29/18 08:00 99.5 82 22 126/50 (75) 97 09/29/18 08:00 Nasal Cannula 2.0 09/29/18 07:24 75 09/29/18 07:23 80 22 98 Nasal Cannula 2.0 28 09/29/18 07:15 71 22 100 Nasal Cannula 2.0 28 09/29/18 07:15 100 Nasal Cannula 2.0 28 09/29/18 07:00 69 23 122/48 (72) 99 09/29/18 06:00 70 23 136/54 (81) 100 09/29/18 05:00 72 22 124/49 (74) 100 09/29/18 04:00 98.5 73 20 121/56 (77) 100 09/29/18 04:00 Nasal Cannula 2.0 09/29/18 03:10 76 09/29/18 03:08 73 21 100 Nasal Cannula 2.0 28 09/29/18 03:00 71 21 133/52 (79) 100 09/29/18 02:53 66 21 100 Nasal Cannula 2.0 28 09/29/18 02:00 65 22 134/55 (81) 100 09/29/18 01:00 72 22 124/59 (80) 100 09/29/18 00:00 Nasal Cannula 2.0 09/29/18 00:00 98.5 81 21 134/52 (79) 100 09/28/18 23:20 78 22 100 Nasal Cannula 2.0 28 09/28/18 23:09 64 09/28/18 23:05 64 21 100 Nasal Cannula 2.0 28 09/28/18 23:00 63 20 112/52 (72) 100 09/28/18 22:00 76 18 114/46 (68) 99 09/28/18 21:00 81 24 129/52 (77) 98 09/28/18 20:00 Nasal Cannula 2.0 09/28/18 20:00 98.5 83 22 94/44 (61) 99 09/28/18 19:14 117 24 100 Nasal Cannula 2.0 28 09/28/18 19:10 113 09/28/18 19:00 69 22 140/51 (80) 100 09/28/18 18:59 65 21 100 Nasal Cannula 2.0 28 09/28/18 18:58 100 Nasal Cannula 2.0 28 09/28/18 18:00 67 22 128/46 (73) 100 09/28/18 17:00 70 20 103/36 (58) 100 09/28/18 16:00 Nasal Cannula 2.0 09/28/18 16:00 83 09/28/18 16:00 98.8 74 23 103/36 (58) 97 09/28/18 15:27 68 19 99 Nasal Cannula 2.0 28 09/28/18 15:09 68 22 99 Nasal Cannula 2.0 28 09/28/18 15:00 67 22 122/47 (72) 99 Height (Feet): 5 Height (Inches): 3.00 Weight (Pounds): 125 General Appearance: no acute distress HEENT: normocephalic, atraumatic, anicteric, mucous membranes moist Respiratory/Chest: crackles/rales, rhonchi - bilaterally Cardiovascular: normal rate, regular rhythm, no gallop/murmur, no JVD Abdomen: normal bowel sounds, soft, non tender, no organomegaly, non distended Genitourinary: other - + taylor - urine clear, good uo Extremities: no cyanosis Skin: no rash Neurologic/Psychiatric: open soaper tender 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 Mild interstitial prominence. Pleural space: Small right pleural effusion, slightly worse. Improved small left pleural effusion. No pneumothorax. Heart: Unremarkable. No cardiomegaly. Mediastinum: Unremarkable. Bones/joints: Unremarkable. Tubes, lines and devices: Stable endotracheal tube. 09/18/18 - Chest x-ray - IMPRESSION: 1. Stable endotracheal tube. 2. Bibasilar lung atelectasis/airspace disease. Mild interstitial prominence. 3. Small right pleural effusion, slightly worse. Improved small left pleural effusion. Comparison: 09/15/2018 A single view chest radiograph was obtained. Findings: Endotracheal tube remains in good position. Pulmonary vascular congestion is present. Basilar atelectasis noted. Small bilateral pleural effusions are not excluded. IMPRESSION: Pulmonary vascular congestion Chest x-ray - 09/22/18 - IMPRESSION: 1. Subsegmental atelectasis versus infiltrates in bilateral lung bases, not significantly changed compared to the prior exam. 2. Possible small bilateral layering pleural effusions, also not significantly changed. 3. Mildly increased interstitial markings. This is nonspecific but may suggest mild pulmonary vascular congestion or a mild interstitial pneumonitis. Chest x-ray - 09/28/18 - Impression: Over 5 days, interim improved aeration of the lung bases with some residual atelectasis, and decreased interstitial congestion. There may be some residual pleural fluid on the left. Microbiology Date/Time Source Procedure Growth Status 09/21/18 19:00 Blood Blood Culture - Final NO GROWTH AFTER 5 DAYS Complete 09/21/18 23:40 Sputum Gram Stain - Final Complete 09/21/18 23:40 Sputum Culture - Final Klebsiella Ornithinolytica Staphylococcus Aureus - Mrsa Usual Respiratory Charmaine Complete 09/16/18 16:15 Stool Clostridium difficile Toxin Assay - Final Complete 09/22/18 07:20 Urine,Clean Catch Urine Culture - Final Nandini Glabrata Complete 09/14/18 09:00 Rectum VRE Culture - Final Enterococcus Faecium - Vre Complete Laboratory Tests Test 09/29/18 04:33 White Blood Count 6.0 K/UL (4.8-10.8) Red Blood Count 4.39 M/UL (4.20-5.40) Hemoglobin 13.7 G/DL (12.0-16.0) Hematocrit 42.3 % (37.0-47.0) Mean Corpuscular Volume 96 FL (80-99) Mean Corpuscular Hemoglobin 31.1 PG (27.0-31.0) H Mean Corpuscular Hemoglobin Concent 32.3 G/DL (32.0-36.0) Red Cell Distribution Width 13.5 % (11.6-14.8) Platelet Count 419 K/UL (150-450) Mean Platelet Volume 5.0 FL (6.5-10.1) L Neutrophils (%) (Auto) 62.1 % (45.0-75.0) Lymphocytes (%) (Auto) 28.6 % (20.0-45.0) Monocytes (%) (Auto) 6.3 % (1.0-10.0) Eosinophils (%) (Auto) 1.7 % (0.0-3.0) Basophils (%) (Auto) 1.3 % (0.0-2.0) Sodium Level 140 MMOL/L (136-145) Potassium Level 4.0 MMOL/L (3.5-5.1) Chloride Level 106 MMOL/L (98-107) Carbon Dioxide Level 24 MMOL/L (21-32) Anion Gap 10 mmol/L (5-15) Blood Urea Nitrogen 4 mg/dL (7-18) L Creatinine 0.5 MG/DL (0.55-1.30) L Estimat Glomerular Filtration Rate mL/min (>60) Glucose Level 154 MG/DL (74-106) H Calcium Level 9.2 MG/DL (8.5-10.1) Current Medications Medications (Trade) Dose Ordered Sig/Wayne Route PRN Reason Start Time Stop Time Status Last Admin Dose Admin Acetaminophen (Tylenol) 650 mg Q4H PRN GT Mild Pain/Temp > 100.5 09/23/18 07:15 10/23/18 07:14 Acetylcysteine (Mucomyst) 100 mg Q4HRT N 09/21/18 19:00 10/21/18 18:59 09/29/18 10:41 Albuterol/ Ipratropium (Albuterol/ Ipratropium) 3 ml Q4HRT N 09/26/18 23:00 10/01/18 22:59 09/29/18 10:41 Artificial Tears (Akwa-Tears) 1 drop Q4H PRN BOTH EYES Dry Eyes 09/18/18 12:30 10/18/18 12:29 09/28/18 20:49 Ascorbic Acid (Vitamin C) 250 mg TWICE A DAY ORAL 09/18/18 18:00 10/18/18 17:59 09/29/18 09:08 Bisacodyl (Dulcolax) 10 mg DAILYPRN PRN RECTAL Constipation 09/14/18 12:45 10/14/18 12:44 Ceftriaxone Sodium 1 gm/ Dextrose 50 ml @ 100 mls/hr Q24H IVPB 09/25/18 21:00 10/02/18 20:59 09/28/18 20:49 Chlorhexidine Gluconate (Kamla-Hex 2%) 1 applic DAILY@1999 TOPIC 09/17/18 20:00 10/17/18 19:59 09/28/18 19:51 Dextrose (Dextrose 50%) 25 ml Q30M PRN IV Hypoglycemia 09/14/18 12:45 10/14/18 12:44 Dextrose (Dextrose 50%) 50 ml Q30M PRN IV Hypoglycemia 09/14/18 12:45 10/14/18 12:44 Diphenhydramine HCl (Benadryl) 25 mg Q6H PRN ORAL Itching/Pruritis 09/14/18 12:45 10/14/18 12:44 Docusate Sodium (Colace) 100 mg TID GT 09/28/18 13:00 10/25/18 08:59 09/29/18 12:44 Famotidine (Pepcid) 20 mg BID GT 09/28/18 18:00 10/28/18 17:59 09/29/18 09:16 Furosemide (Lasix) 20 mg DAILY GT 09/23/18 09:00 10/22/18 08:59 09/29/18 09:07 Heparin Sodium (Porcine) (Heparin 5000 units/ml) 5,000 units EVERY 12 HOURS SUBQ 09/14/18 21:00 10/14/18 20:59 09/29/18 09:07 Insulin Aspart (NovoLOG) Q6HR SUBQ 09/14/18 16:00 10/14/18 15:59 09/29/18 12:42 Insulin Detemir (Levemir) 12 units BEDTIME SUBQ 09/17/18 21:00 10/17/18 20:59 09/28/18 20:51 Magnesium Hydroxide (Mom) 30 ml HSPRN PRN ORAL Constipation 09/14/18 12:45 10/14/18 12:44 Metoclopramide HCl (Reglan) 5 mg EVERY 6 HOURS NG 09/28/18 12:00 10/28/18 11:59 09/29/18 12:43 Metoclopramide HCl (Reglan) 10 mg Q8H PRN IVP Nausea & Vomiting 09/17/18 12:30 10/17/18 12:29 Ondansetron HCl (Zofran) 4 mg Q6H PRN IVP Nausea & Vomiting 09/14/18 12:45 10/14/18 12:44 09/17/18 07:41 Vancomycin HCl (Vanco rx to dose) 1 ea DAILY PRN MISC Per rx protocol 09/26/18 12:30 10/26/18 12:29 Vancomycin HCl/ Dextrose 275 ml @ 137.5 mls/ hr Q24H IVPB 09/27/18 01:00 10/02/18 00:59 09/29/18 01:17 Milton Valladares MD Sep 29, 2018 14:17
--- NOTE | 2018-09-29 14:30 | NUR ---
NURSE NOTES: Dr. Solis came and assessed the patient. Updated him with patients condition. No new orders.
[2018-09-29] MEDS ORDERED: Acetaminophen 650mg/20.3ml GT PRN (14:38)
[2018-09-29] MEDS ORDERED: Artificial Tears 1.4% Op Soln BOTH EYES PRN (14:40)
[2018-09-29] MEDS ORDERED: Metoclopramide 10mg/2ml Inj IVP PRN (14:41)
--- NOTE | 2018-09-29 15:00 | NUR ---
Pt pulse ox not picking up accurate oxygen saturation. Saturation 100% Addendum: 09/29/18 at 1636 by No Salgado RN Amended: Links added.
--- NOTE | 2018-09-29 15:10 | General Progress Note ---
Assessment/Plan Status: unchanged Assessment/Plan: 77 y/o F with acute hypoxemic respiratory failure and sepsis admitted to ICU # Acute hypoxemic respiratory failure - ICU management by glassware maker appreciated. 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 - Nephrology follow up appreciated. 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 - R gaze preference noted. - Awake today and moves her R side only # Hypertension - Monitor and resume home medications not needed now due to hypotension. # History of dementia - Supportive care - SW to attempt to find family members # Nutrition - Restart tube feeds when approved by ICU - PEG in place # DVT and GI ppx # FULL CODE by records. - CM / SW follow up for family is needed. Resident at [facility]. Subjective Date patient seen: Sep 29, 2018 Allergies: Coded Allergies: No Known Allergies (Unverified , 02/04/17) Subjective Transferring to step down unit today Objective Last 24 Hour Vital Signs Date Time Temp Pulse Resp B/P (MAP) Pulse Ox O2 Delivery O2 Flow Rate FiO2 09/29/18 14:00 69 20 139/59 (85) 87 09/29/18 13:00 72 20 125/62 (83) 100 09/29/18 12:00 99.2 79 21 131/49 (76) 99 09/29/18 12:00 Nasal Cannula 2.0 09/29/18 11:35 81 09/29/18 11:00 74 22 130/50 (76) 100 09/29/18 10:56 66 20 100 Nasal Cannula 2.0 28 09/29/18 10:42 65 20 100 Nasal Cannula 2.0 28 09/29/18 10:00 68 21 134/56 (82) 100 09/29/18 09:00 83 23 117/56 (76) 95 09/29/18 08:00 99.5 82 22 126/50 (75) 97 09/29/18 08:00 Nasal Cannula 2.0 09/29/18 07:24 75 09/29/18 07:23 80 22 98 Nasal Cannula 2.0 28 09/29/18 07:15 71 22 100 Nasal Cannula 2.0 28 09/29/18 07:15 100 Nasal Cannula 2.0 28 09/29/18 07:00 69 23 122/48 (72) 99 09/29/18 06:00 70 23 136/54 (81) 100 09/29/18 05:00 72 22 124/49 (74) 100 09/29/18 04:00 98.5 73 20 121/56 (77) 100 09/29/18 04:00 Nasal Cannula 2.0 09/29/18 03:10 76 09/29/18 03:08 73 21 100 Nasal Cannula 2.0 28 09/29/18 03:00 71 21 133/52 (79) 100 09/29/18 02:53 66 21 100 Nasal Cannula 2.0 28 09/29/18 02:00 65 22 134/55 (81) 100 09/29/18 01:00 72 22 124/59 (80) 100 09/29/18 00:00 Nasal Cannula 2.0 09/29/18 00:00 98.5 81 21 134/52 (79) 100 09/28/18 23:20 78 22 100 Nasal Cannula 2.0 28 09/28/18 23:09 64 09/28/18 23:05 64 21 100 Nasal Cannula 2.0 28 09/28/18 23:00 63 20 112/52 (72) 100 09/28/18 22:00 76 18 114/46 (68) 99 09/28/18 21:00 81 24 129/52 (77) 98 09/28/18 20:00 Nasal Cannula 2.0 09/28/18 20:00 98.5 83 22 94/44 (61) 99 09/28/18 19:14 117 24 100 Nasal Cannula 2.0 28 09/28/18 19:10 113 09/28/18 19:00 69 22 140/51 (80) 100 09/28/18 18:59 65 21 100 Nasal Cannula 2.0 28 09/28/18 18:58 100 Nasal Cannula 2.0 28 09/28/18 18:00 67 22 128/46 (73) 100 09/28/18 17:00 70 20 103/36 (58) 100 09/28/18 16:00 Nasal Cannula 2.0 09/28/18 16:00 83 09/28/18 16:00 98.8 74 23 103/36 (58) 97 09/28/18 15:27 68 19 99 Nasal Cannula 2.0 28 09/28/18 15:09 68 22 99 Nasal Cannula 2.0 28 Intake and Output 09/28/18 09/29/18 18:59 06:59 Intake Total 705 ml 785 ml Output Total 465 ml 500 ml Balance 240 ml 285 ml Intake Free Water 100 ml IV Total 500 ml 325 ml Tube Feeding 105 ml 360 ml Other 100 ml Output Urine Total 465 ml 500 ml # Bowel Movements 2 Laboratory Tests 09/29/18 04:33: White Blood Count 6.0, Red Blood Count 4.39, Hemoglobin 13.7, Hematocrit 42.3, Mean Corpuscular Volume 96, Mean Corpuscular Hemoglobin 31.1H, Mean Corpuscular Hemoglobin Concent 32.3, Red Cell Distribution Width 13.5, Platelet Count 419, Mean Platelet Volume 5.0L, Neutrophils (%) (Auto) 62.1, Lymphocytes (%) (Auto) 28.6, Monocytes (%) (Auto) 6.3, Eosinophils (%) (Auto) 1.7, Basophils (%) (Auto ) 1.3, Sodium Level 140, Potassium Level 4.0, Chloride Level 106, Carbon Dioxide Level 24, Anion Gap 10, Blood Urea Nitrogen 4L, Creatinine 0.5L, Estimat Glomerular Filtration Rate , Glucose Level 154H, Calcium Level 9.2 Height (Feet): 5 Height (Inches): 3.00 Weight (Pounds): 125 Objective General Appearance: WD/WN, no apparent distress EENT: PERRL/EOMI Neck: non-tender Cardiovascular: normal peripheral pulses Respiratory/Chest: chest wall non-tender Abdomen: non tender Neurologic: barrel waterer II-XII grossly normal Johnathan Stanton MD Sep 29, 2018 15:10
--- NOTE | 2018-09-29 16:20 | NUR ---
TRANSFER TO FLOOR: Patient transferred to SDU 237-2, per Dr. Swift. Report given to FELIX Schultz. Medications given to Marion. Pt has no belongings. Family and or S/O informed of transfer.
--- NOTE | 2018-09-29 16:41 | NUR ---
NURSE NOTES: Report received from No [place]. Pt awake, opens eyes but does not follow commands. Pt is nonverbal. Pt on 2L via NC. Pt receiving GTF Glucerna 1.5 at 45 cc/hr, tolerating. DTI on sacrum and blister on left ear, pictures taken and dressings changed. OPHELIA PICC noted and intact with fluids at tko. Safety measures in place with bed locked and in lowest position, side rails x3 up and bed alarm on. Will continue to monitor and continue plan of care.
[2018-09-29] MEDS ORDERED: NS 275ml ONE (17:06)
--- NOTE | 2018-09-29 19:08 | NUR ---
HAND-OFF: Report given to Destin Herrera.
--- NOTE | 2018-09-29 19:43 | NUR ---
NURSE NOTES: Received a bedside report from FELIX Weir.Patient stable,open eyes,non verbal,tolerated N/C well @2L/min with humidifier,GT running with Glucerna @45 ml/hr,goal is 55 ml/hr no residual at this moment,BS active in all quadrants,f/cath per Dr. meek,OPHELIA PIC TKO,bed secured in a low safety position,call light within a reach,will continue to monitor and follow POC
[2018-09-29] MEDS: Dyna-Hex 2% Top Sol 2oz TOPIC SCH (20:32)
[2018-09-29] MEDS: Levemir Flexpen SUBQ SCH (20:36)
[2018-09-29] MEDS ORDERED: Milk of Magnesia 30ml Ud ORAL PRN (21:00)
[2018-09-29] MEDS ORDERED: cefTRIAXone 1 GM in D5W 50 ML IVPB SCH (21:00)
[2018-09-30] VITALS: BP 117/57
[2018-09-30] MEDS ORDERED: Vancomycin 1.5gm/D5W Premix 275 ML IVPB SCH (01:00)
[2018-09-30] MEDS: Albuterol/Ipratropium 3ml neb HHN SCH ×6 (03:05→23:51)
[2018-09-30 04:00] VITALS: BP 133/65
[2018-09-30] MEDS: Metoclopramide 10mg/10ml Liq NG SCH ×3 (05:38→17:19)
[2018-09-30] MEDS: NovoLOG Insulin Flexpen SUBQ SCH ×3 (05:39→17:24)
[2018-09-30 05:45] LABS: BASOPHILS % (AUTO) 0.8 % (0.0-2.0); EOSINOPHILS % (AUTO) 1.8 % (0.0-3.0); HEMATOCRIT 38.4 % (37.0-47.0); HEMOGLOBIN 12.7 G/DL (12.0-16.0); LYMPHOCYTES % (AUTO) 28.7 % (20.0-45.0); MEAN CORPUSCULAR VOLUME 97 FL (80-99); MONOCYTES % (AUTO) 5.4 % (1.0-10.0); NEUTROPHILS % (AUTO) 63.4 % (45.0-75.0); PLATELET COUNT 413 K/UL (150-450); RED BLOOD COUNT 3.98 M/UL (4.20-5.40); RED CELL DISTRIBUTION WIDTH 13.2 % (11.6-14.8); WHITE BLOOD COUNT 6.3 K/UL (4.8-10.8)
[2018-09-30 05:56] LABS: ANION GAP 7 mmol/L (5-15); BLOOD UREA NITROGEN 7 mg/dL (7-18); CALCIUM 9.4 MG/DL (8.5-10.1); CARBON DIOXIDE 28 MMOL/L (21-32); CHLORIDE 107 MMOL/L (98-107); CREATININE 0.6 MG/DL (0.55-1.30); POTASSIUM 3.9 MMOL/L (3.5-5.1); SODIUM 142 MMOL/L (136-145)
--- NOTE | 2018-09-30 06:13 | General Progress Note ---
Assessment/Plan Problem List: (1) DM (diabetes mellitus) ICD Codes: E11.9 - Type 2 diabetes mellitus without complications SNOMED: 43577543 (2) CVA, old, hemiparesis ICD Codes: I69.359 - Hemiplegia and hemiparesis following cerebral infarction affecting unspecified side; R65.20 - Severe sepsis without septic shock SNOMED: 576415082 (3) Severe sepsis ICD Codes: A41.9 - Sepsis, unspecified organism; R65.20 - Severe sepsis without septic shock SNOMED: 31561097 (4) Respiratory failure ICD Codes: J96.90 - Respiratory failure, unspecified, unspecified whether with hypoxia or hypercapnia SNOMED: 651544028 (5) Dehydration ICD Codes: E86.0 - Dehydration SNOMED: 98407150 (6) Large ischemic R MCA stroke (7) HTN (hypertension) ICD Codes: I10 - Essential (primary) hypertension SNOMED: 56624577 (8) G tube feedings ICD Codes: Z93.1 - Gastrostomy status SNOMED: 452963170, 094171178, 883240207 Status: unchanged Assessment/Plan: GTF fu labs abx per ID respiratory care fu abd us>> neg fu labs supportive care Subjective ROS Limited/Unobtainable: No Allergies: Coded Allergies: No Known Allergies (Unverified , 02/04/17) Objective Last 24 Hour Vital Signs Date Time Temp Pulse Resp B/P (MAP) Pulse Ox O2 Delivery O2 Flow Rate FiO2 09/30/18 04:00 Nasal Cannula 2.0 09/30/18 04:00 97.9 83 16 133/65 (87) 99 09/30/18 03:44 89 09/30/18 03:15 86 20 99 Nasal Cannula 2.0 28 09/30/18 03:06 74 20 98 Nasal Cannula 2.0 28 09/30/18 00:00 Nasal Cannula 2.0 09/30/18 00:00 98.1 74 18 117/57 (77) 99 09/29/18 23:34 74 09/29/18 22:36 79 20 100 Nasal Cannula 2.0 28 09/29/18 22:26 75 20 99 Nasal Cannula 2.0 28 09/29/18 20:00 97.0 69 16 126/54 (78) 99 09/29/18 20:00 Nasal Cannula 2.0 09/29/18 19:44 71 09/29/18 19:02 75 20 99 Nasal Cannula 2.0 28 09/29/18 18:54 99 Nasal Cannula 2.0 28 09/29/18 18:51 72 22 99 Nasal Cannula 2.0 28 09/29/18 16:40 Nasal Cannula 2.0 09/29/18 16:00 73 19 137/49 (78) 100 09/29/18 16:00 Nasal Cannula 2.0 09/29/18 16:00 81 09/29/18 15:20 82 20 100 Nasal Cannula 2.0 28 09/29/18 15:14 69 20 100 Nasal Cannula 2.0 28 09/29/18 15:00 70 20 148/54 (85) 88 09/29/18 14:00 69 20 139/59 (85) 100 09/29/18 13:00 72 20 125/62 (83) 100 09/29/18 12:00 99.2 79 21 131/49 (76) 99 09/29/18 12:00 Nasal Cannula 2.0 09/29/18 11:35 81 09/29/18 11:00 74 22 130/50 (76) 100 09/29/18 10:56 66 20 100 Nasal Cannula 2.0 28 09/29/18 10:42 65 20 100 Nasal Cannula 2.0 28 09/29/18 10:00 68 21 134/56 (82) 100 09/29/18 09:00 83 23 117/56 (76) 95 09/29/18 08:00 99.5 82 22 126/50 (75) 97 09/29/18 08:00 Nasal Cannula 2.0 09/29/18 07:24 75 09/29/18 07:23 80 22 98 Nasal Cannula 2.0 28 09/29/18 07:15 71 22 100 Nasal Cannula 2.0 28 09/29/18 07:15 100 Nasal Cannula 2.0 28 09/29/18 07:00 69 23 122/48 (72) 99 Intake and Output 09/29/18 09/30/18 19:00 07:00 Intake Total 410 ml 555 ml Output Total 985 ml 1100 ml Balance -575 ml -545 ml Tube Feeding 320 ml 555 ml Other 90 ml Output Urine Total 985 ml 1100 ml Laboratory Tests 09/30/18 03:48: White Blood Count 6.3, Red Blood Count 3.98L, Hemoglobin 12.7, Hematocrit 38.4, Mean Corpuscular Volume 97, Mean Corpuscular Hemoglobin 32.0H, Mean Corpuscular Hemoglobin Concent 33.1, Red Cell Distribution Width 13.2, Platelet Count 413, Mean Platelet Volume 5.6L, Neutrophils (%) (Auto) 63.4, Lymphocytes (%) (Auto) 28.7, Monocytes (%) (Auto) 5.4, Eosinophils (%) (Auto) 1.8, Basophils (%) (Auto ) 0.8, Sodium Level 142, Potassium Level 3.9, Chloride Level 107, Carbon Dioxide Level 28, Anion Gap 7, Blood Urea Nitrogen 7, Creatinine 0.6, Estimat Glomerular Filtration Rate , Glucose Level 236H, Calcium Level 9.4 Height (Feet): 5 Height (Inches): 3.00 Weight (Pounds): 127 General Appearance: no apparent distress EENT: normal ENT inspection Neck: supple Cardiovascular: normal rate Respiratory/Chest: decreased breath sounds Abdomen: normal bowel sounds, non tender, soft Extremities: non-tender Ovi Brown MD Sep 30, 2018 06:13
--- NOTE | 2018-09-30 07:15 | NUR ---
HAND-OFF: Report given to FELIX Allison.patient stable,sleeping.
--- NOTE | 2018-09-30 07:16 | NUR ---
NURSE NOTES: received pt from the FELIX Collins. pt is sleeping on the bed. no SOB noted at this moment. no dysrhythmia reported from overnight cashier. call light within reach. will continue plan of care.
[2018-09-30 08:00] VITALS: BP 136/74
[2018-09-30] MEDS: Docusate 100mg tablet GT SCH ×3 (08:10→17:19)
[2018-09-30] MEDS: Ascorbic Acid 500mg tab ORAL SCH ×2 (08:11→17:19)
[2018-09-30] MEDS: Heparin 5000 units/ml inj SUBQ SCH ×2 (08:12→20:13)
--- NOTE | 2018-09-30 10:35 | Pulmonolgy Critical Care Note ---
Critical Care - Asmt/Plan Assessment/Plan: Pulmonary CCM Progress Note Critical Care - Asmt/Plan Problems: (1) Previous Respiratory failure (2) - s/p extubation (3) Sepsis, remains afebrile (4) Pneumonia (5) Electrolyte imbalance (6) Dehydration (7) Altered mental status (8) Hypernatremia (9) Respiratory failure (10) Lactic acid acidosis (11) H/O: CVA (cerebrovascular accident) (12) G tube feedings (13) KEL (acute kidney injury) Respiratory: monitor respiratory rate, adjust FIO2, ABG, other - HHN's, pulmonary hygiene Cardiac: continue to monitor HR/BP Renal: keep negative Infectious Disease: check cultures, continue antibiotics per ID Gastrointestinal: enteral feeding Endocrine: monitor blood sugar, continue sliding scale insulin Hematologic: monitor H/H Neurologic: keep patient comfortable - monitor MS, consider neuro eval and EEG Prophylaxis: Protonix, Heparin Disposition: keep in ICU Time Spent (Minutes): 40 Notes Reviewed: business area director, renal, ID, other - ERMD Discussed with: nurses, consultants, other - FC Critical Care - Objective Vital Signs Noted Status: sedated - intubated Condition: critical HEENT: atraumatic, normocephalic, other - ETT OGT weak gag Lungs: rhonchi Heart: HR/BP stable Abdomen: soft, non-tender, active bowel sounds, feeding tube Extremities: no C/C/E Micro: Microbiology Date/Time Source Procedure Growth Status 09/14/18 09:00 Rectum Received Critical Care - Subjective ROS Limited/Unobtainable: Yes Interval Events: 77 F NHR h/o dementia, CVA, GT, HTN, HL remains on ACVC, not tolerating PS Na 167 Cr 1.7 LA elevated + hemoconcentration No gag in ER + faint gag now + F no C no further hx obtainable Condition: critical IV Access: peripheral - x2 EKG Rhythm: Sinus Rhythm FI02: 60 Vent Support Breath Rate: 14 Vent Support Mode: AC Vent Tidal Volume: 500 Sputum Amount: Small PEEP: 5.0 PIP: 23 Secretions: scant thick Subjective: ARLETTE CXR: L RC inf, small L eff, ETT ET-Tube: 7.0 ET Position: 22 Labs: Laboratory Tests noted Critical Care - Objective Last 24 Hour Vital Signs Date Time Temp Pulse Resp B/P (MAP) Pulse Ox O2 Delivery O2 Flow Rate FiO2 09/30/18 08:00 Nasal Cannula 2.0 09/30/18 08:00 98.1 106 16 136/74 (94) 99 09/30/18 07:43 105 09/30/18 06:57 75 20 99 Nasal Cannula 4.0 36 09/30/18 06:45 100 Nasal Cannula 4.0 36 09/30/18 06:45 62 18 98 Nasal Cannula 4.0 36 09/30/18 04:00 Nasal Cannula 2.0 09/30/18 04:00 97.9 83 16 133/65 (87) 99 09/30/18 03:44 89 09/30/18 03:15 86 20 99 Nasal Cannula 2.0 28 09/30/18 03:06 74 20 98 Nasal Cannula 2.0 28 09/30/18 00:00 Nasal Cannula 2.0 09/30/18 00:00 98.1 74 18 117/57 (77) 99 09/29/18 23:34 74 09/29/18 22:36 79 20 100 Nasal Cannula 2.0 28 09/29/18 22:26 75 20 99 Nasal Cannula 2.0 28 09/29/18 20:00 97.0 69 16 126/54 (78) 99 09/29/18 20:00 Nasal Cannula 2.0 09/29/18 19:44 71 09/29/18 19:02 75 20 99 Nasal Cannula 2.0 28 09/29/18 18:54 99 Nasal Cannula 2.0 28 09/29/18 18:51 72 22 99 Nasal Cannula 2.0 28 09/29/18 16:40 Nasal Cannula 2.0 09/29/18 16:00 73 19 137/49 (78) 100 09/29/18 16:00 Nasal Cannula 2.0 09/29/18 16:00 81 09/29/18 15:20 82 20 100 Nasal Cannula 2.0 28 09/29/18 15:14 69 20 100 Nasal Cannula 2.0 28 09/29/18 15:00 70 20 148/54 (85) 88 09/29/18 14:00 69 20 139/59 (85) 100 09/29/18 13:00 72 20 125/62 (83) 100 09/29/18 12:00 99.2 79 21 131/49 (76) 99 09/29/18 12:00 Nasal Cannula 2.0 09/29/18 11:35 81 09/29/18 11:00 74 22 130/50 (76) 100 09/29/18 10:56 66 20 100 Nasal Cannula 2.0 28 09/29/18 10:42 65 20 100 Nasal Cannula 2.0 28 Accucheck: 193 Critical Care - Subjective ROS Limited/Unobtainable: No Condition: improving FI02: 36 Vent Support Breath Rate: 14 Vent Support Mode: CPAP Vent Tidal Volume: 500 Sputum Amount: None PEEP: 5.0 PIP: 24 Tube Feeding Amount: 55 I&O: Intake and Output 09/29/18 09/30/18 19:00 07:00 Intake Total 410 ml 635 ml Output Total 985 ml 1100 ml Balance -575 ml -465 ml Intake Free Water 25 ml Tube Feeding 320 ml 610 ml Other 90 ml Output Urine Total 985 ml 1100 ml ET-Tube: 7.0 ET Position: 22 Marcelo Swift MD Sep 30, 2018 10:35
--- NOTE | 2018-09-30 10:52 | NUR ---
RD ASSESSMENT & RECOMMENDATIONS SEE CARE ACTIVITY FOR COMPLETE ASSESSMENT DAILY ESTIMATED NEEDS: Needs based on Pulmonary, sepsis, wound, DM 53.6kg 25-35 kcals/kg 1097-3781 total kcals 1.25-2 g protein/kg 67-107 g total protein 25-30ml/kcal mL/kg 3893-4012 total fluid mLs NUTRITION DIAGNOSIS: 1) Swallowing difficulty R/T dysphagia, CVA as evidenced by PEG dependent, pt is now s/p extubation. 2) Increased kcal and pro needs r/t sepsis and wound healing as evidenced by elev BG and POC (200-400's-> 153 217 291 202 143, elev WBC (15.7 -> now wnl), febrile, elev Na (148-> wnl), sacral wound/ unstageable per MD. CURRENT TF:Glucerna 1.2 @55 ml/hr x 24 hrs ENTERAL NUTRITION RECOMMENDATIONS: Glucerna 1.2 @55ml/hr x24 hrs to provide 1320ml, 1584 kcal, 79g prot, 1063ml free H2O - As able, maintain Glucerna 1.2 at reduced rate of 55ml/hr (meets 100% est kcal and prot needs). - HOB over 30 degrees - Flush per MD-> 150q6 for added 600ml free fluid per day (1063ml from TF + 600ml flushes= 1663ml free fluid per day). With continued TF tolerance rec to add Prosource x1 daily (11g prot, 0g carbs) to better meet est kcal needs without affecting BG ADDITIONAL RECOMMENDATIONS: 1) Monitor hydration status -> now improved 2) Obtain an accurate calibrated bed scale wt 3) Lytes daily on TF and lasix/ replete as needed 4) Monitor BGs closely, need to increase Levemir (BGs mostly >150) 5) Sacral wound: add AYDEE BID via PEG daily continue Vit C 250mg BID daily via GT .
[2018-09-30 12:00] VITALS: BP 141/70
--- NOTE | 2018-09-30 12:56 | Infectious Diseases Prog Note ---
Assessment/Plan Assessment/Plan ASSESSMENT AND PLAN: 1. 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 ICU care. 3. Skin care protocol. 4. History of CVA and TIA, and aspiration risk. 5. Dementia. 6. Hypertension. 7. Blood pressure treatment per primary. 8. Acute kidney injury. 9. Weakness. 10. Hemiplegia. 11. Dysphagia, G-tube. 12. Encephalopathy. 13. No known drug allergies. 14. Social history is negative. 15. Family history is noncontributory. 16. MAR was noted. 17. Case discussed with RN. 18. Continue treatment per primary consultants. 19. Notes and records were noted. Orders were entered. 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, vre colonization Subjective Constitutional: Denies: fever Respiratory: Denies: shortness of breath Gastrointestinal/Abdominal: Denies: nausea, vomiting, diarrhea Allergies: Coded Allergies: No Known Allergies (Unverified , 02/04/17) Objective Vital Signs Last 24 Hour Vital Signs Date Time Temp Pulse Resp B/P (MAP) Pulse Ox O2 Delivery O2 Flow Rate FiO2 09/30/18 12:00 98.1 101 18 141/70 (93) 99 09/30/18 12:00 106 09/30/18 12:00 Nasal Cannula 2.0 09/30/18 11:34 76 18 99 Nasal Cannula 4.0 36 09/30/18 11:19 64 20 97 Nasal Cannula 4.0 36 09/30/18 08:00 Nasal Cannula 2.0 09/30/18 08:00 98.1 106 16 136/74 (94) 99 09/30/18 07:43 105 09/30/18 06:57 75 20 99 Nasal Cannula 4.0 36 09/30/18 06:45 100 Nasal Cannula 4.0 36 09/30/18 06:45 62 18 98 Nasal Cannula 4.0 36 09/30/18 04:00 Nasal Cannula 2.0 09/30/18 04:00 97.9 83 16 133/65 (87) 99 09/30/18 03:44 89 09/30/18 03:15 86 20 99 Nasal Cannula 2.0 28 09/30/18 03:06 74 20 98 Nasal Cannula 2.0 28 09/30/18 00:00 Nasal Cannula 2.0 09/30/18 00:00 98.1 74 18 117/57 (77) 99 09/29/18 23:34 74 09/29/18 22:36 79 20 100 Nasal Cannula 2.0 28 09/29/18 22:26 75 20 99 Nasal Cannula 2.0 28 09/29/18 20:00 97.0 69 16 126/54 (78) 99 09/29/18 20:00 Nasal Cannula 2.0 09/29/18 19:44 71 09/29/18 19:02 75 20 99 Nasal Cannula 2.0 28 09/29/18 18:54 99 Nasal Cannula 2.0 28 09/29/18 18:51 72 22 99 Nasal Cannula 2.0 28 09/29/18 16:40 Nasal Cannula 2.0 09/29/18 16:00 73 19 137/49 (78) 100 09/29/18 16:00 Nasal Cannula 2.0 09/29/18 16:00 81 09/29/18 15:20 82 20 100 Nasal Cannula 2.0 28 09/29/18 15:14 69 20 100 Nasal Cannula 2.0 28 09/29/18 15:00 70 20 148/54 (85) 88 09/29/18 14:00 69 20 139/59 (85) 100 09/29/18 13:00 72 20 125/62 (83) 100 Height (Feet): 5 Height (Inches): 3.00 Weight (Pounds): 127 General Appearance: no acute distress HEENT: normocephalic, atraumatic, anicteric, mucous membranes moist Respiratory/Chest: lungs clear, normal breath sounds, no respiratory distress, no accessory muscle use Objective Chest x-ray - 09/15/18 - COMPARISON: Chest x-ray, 09/14/18 933 FINDINGS: Lungs: Bibasilar lung atelectasis/airspace disease. Mild interstitial prominence. Pleural space: Small right pleural effusion, slightly worse. Improved small left pleural effusion. No pneumothorax. Heart: Unremarkable. No cardiomegaly. Mediastinum: Unremarkable. Bones/joints: Unremarkable. Tubes, lines and devices: Stable endotracheal tube. 09/18/18 - Chest x-ray - IMPRESSION: 1. Stable endotracheal tube. 2. Bibasilar lung atelectasis/airspace disease. Mild interstitial prominence. 3. Small right pleural effusion, slightly worse. Improved small left pleural effusion. Comparison: 09/15/2018 A single view chest radiograph was obtained. Findings: Endotracheal tube remains in good position. Pulmonary vascular congestion is present. Basilar atelectasis noted. Small bilateral pleural effusions are not excluded. IMPRESSION: Pulmonary vascular congestion Chest x-ray - 09/22/18 - IMPRESSION: 1. Subsegmental atelectasis versus infiltrates in bilateral lung bases, not significantly changed compared to the prior exam. 2. Possible small bilateral layering pleural effusions, also not significantly changed. 3. Mildly increased interstitial markings. This is nonspecific but may suggest mild pulmonary vascular congestion or a mild interstitial pneumonitis. Chest x-ray - 09/28/18 - Impression: Over 5 days, interim improved aeration of the lung bases with some residual atelectasis, and decreased interstitial congestion. There may be some residual pleural fluid on the left. Laboratory Tests Test 09/30/18 03:48 White Blood Count 6.3 K/UL (4.8-10.8) Red Blood Count 3.98 M/UL (4.20-5.40) L Hemoglobin 12.7 G/DL (12.0-16.0) Hematocrit 38.4 % (37.0-47.0) Mean Corpuscular Volume 97 FL (80-99) Mean Corpuscular Hemoglobin 32.0 PG (27.0-31.0) H Mean Corpuscular Hemoglobin Concent 33.1 G/DL (32.0-36.0) Red Cell Distribution Width 13.2 % (11.6-14.8) Platelet Count 413 K/UL (150-450) Mean Platelet Volume 5.6 FL (6.5-10.1) L Neutrophils (%) (Auto) 63.4 % (45.0-75.0) Lymphocytes (%) (Auto) 28.7 % (20.0-45.0) Monocytes (%) (Auto) 5.4 % (1.0-10.0) Eosinophils (%) (Auto) 1.8 % (0.0-3.0) Basophils (%) (Auto) 0.8 % (0.0-2.0) Sodium Level 142 MMOL/L (136-145) Potassium Level 3.9 MMOL/L (3.5-5.1) Chloride Level 107 MMOL/L (98-107) Carbon Dioxide Level 28 MMOL/L (21-32) Anion Gap 7 mmol/L (5-15) Blood Urea Nitrogen 7 mg/dL (7-18) Creatinine 0.6 MG/DL (0.55-1.30) Estimat Glomerular Filtration Rate mL/min (>60) Glucose Level 236 MG/DL (74-106) H Calcium Level 9.4 MG/DL (8.5-10.1) Current Medications Medications (Trade) Dose Ordered Sig/Wayne Route PRN Reason Start Time Stop Time Status Last Admin Dose Admin Acetaminophen (Tylenol) 650 mg Q4H PRN GT Mild Pain/Temp > 100.5 09/29/18 14:38 10/23/18 14:37 Acetylcysteine (Mucomyst) 100 mg Q4HRT [facility] 09/29/18 15:00 10/21/18 18:59 09/30/18 11:22 Albuterol/ Ipratropium (Albuterol/ Ipratropium) 3 ml Q4HRT [facility] 09/29/18 15:00 10/01/18 22:59 09/30/18 11:22 Artificial Tears (Akwa-Tears) 1 drop Q4H PRN BOTH EYES Dry Eyes 09/29/18 14:40 10/18/18 14:39 Ascorbic Acid (Vitamin C) 250 mg TWICE A DAY ORAL 09/29/18 18:00 10/18/18 17:59 09/30/18 08:11 Bisacodyl (Dulcolax) 10 mg DAILYPRN PRN RECTAL Constipation 09/30/18 14:38 10/14/18 14:37 Ceftriaxone Sodium 1 gm/ Dextrose 50 ml @ 100 mls/hr Q24H IVPB 09/29/18 21:00 10/02/18 20:59 09/29/18 20:52 Chlorhexidine Gluconate (Kamla-Hex 2%) 1 applic DAILY@2000 TOPIC 09/29/18 20:00 10/17/18 19:59 09/29/18 20:32 Dextrose (Dextrose 50%) 25 ml Q30M PRN IV Hypoglycemia 09/29/18 14:39 10/14/18 14:38 Dextrose (Dextrose 50%) 50 ml Q30M PRN IV Hypoglycemia 09/29/18 14:39 10/14/18 14:38 Diphenhydramine HCl (Benadryl) 25 mg Q6H PRN ORAL Itching/Pruritis 09/29/18 14:39 10/14/18 14:38 Docusate Sodium (Colace) 100 mg TID GT 09/29/18 18:00 10/25/18 08:59 09/30/18 08:10 Famotidine (Pepcid) 20 mg BID GT 09/29/18 18:00 10/28/18 17:59 09/30/18 08:10 Furosemide (Lasix) 20 mg DAILY GT 09/30/18 09:00 10/22/18 08:59 09/30/18 08:10 Heparin Sodium (Porcine) (Heparin 5000 units/ml) 5,000 units EVERY 12 HOURS SUBQ 09/29/18 21:00 10/14/18 20:59 09/30/18 08:12 Insulin Aspart (NovoLOG) Q6HR SUBQ 09/29/18 18:00 10/14/18 15:59 09/30/18 11:48 Insulin Detemir (Levemir) 12 units BEDTIME SUBQ 09/29/18 21:00 10/17/18 20:59 09/29/18 20:36 Magnesium Hydroxide (Mom) 30 ml HSPRN PRN ORAL Constipation 09/29/18 21:00 10/29/18 20:59 Metoclopramide HCl (Reglan) 5 mg EVERY 6 HOURS NG 09/29/18 18:00 10/28/18 11:59 09/30/18 11:47 Metoclopramide HCl (Reglan) 10 mg Q8H PRN IVP Nausea & Vomiting 09/29/18 14:41 10/17/18 14:40 Ondansetron HCl (Zofran) 4 mg Q6H PRN IVP Nausea & Vomiting 09/29/18 14:39 10/14/18 14:38 Vancomycin HCl (Vanco rx to dose) 1 ea DAILY PRN MISC Per rx protocol 09/29/18 14:39 10/29/18 14:38 Vancomycin HCl/ Dextrose 275 ml @ 137.5 mls/ hr Q24H IVPB 09/30/18 01:00 10/02/18 00:59 09/30/18 01:31 Milton Valladares MD Sep 30, 2018 12:56
--- NOTE | 2018-09-30 13:53 | Nephrology Progress Note ---
Assessment/Plan Problem List: (1) KEL (acute kidney injury) (2) Respiratory failure (3) Dehydration (4) Electrolyte imbalance (5) G tube feedings (6) Hypokalemia (7) CVA, old, hemiparesis (8) DM (diabetes mellitus) Plan now extubated - ( 09/27/18) antibiotics start feeding DC IV fluids IV KCl Pulm support correct lytes BS and BP check and monitor per consultants Subjective ROS Limited/Unobtainable: No Objective Objective Last 24 Hour Vital Signs Date Time Temp Pulse Resp B/P (MAP) Pulse Ox O2 Delivery O2 Flow Rate FiO2 09/30/18 12:00 98.1 101 18 141/70 (93) 99 09/30/18 12:00 106 09/30/18 12:00 Nasal Cannula 2.0 09/30/18 11:34 76 18 99 Nasal Cannula 4.0 36 09/30/18 11:19 64 20 97 Nasal Cannula 4.0 36 09/30/18 08:00 Nasal Cannula 2.0 09/30/18 08:00 98.1 106 16 136/74 (94) 99 09/30/18 07:43 105 09/30/18 06:57 75 20 99 Nasal Cannula 4.0 36 09/30/18 06:45 100 Nasal Cannula 4.0 36 09/30/18 06:45 62 18 98 Nasal Cannula 4.0 36 09/30/18 04:00 Nasal Cannula 2.0 09/30/18 04:00 97.9 83 16 133/65 (87) 99 09/30/18 03:44 89 09/30/18 03:15 86 20 99 Nasal Cannula 2.0 28 09/30/18 03:06 74 20 98 Nasal Cannula 2.0 28 09/30/18 00:00 Nasal Cannula 2.0 09/30/18 00:00 98.1 74 18 117/57 (77) 99 09/29/18 23:34 74 09/29/18 22:36 79 20 100 Nasal Cannula 2.0 28 09/29/18 22:26 75 20 99 Nasal Cannula 2.0 28 09/29/18 20:00 97.0 69 16 126/54 (78) 99 09/29/18 20:00 Nasal Cannula 2.0 09/29/18 19:44 71 09/29/18 19:02 75 20 99 Nasal Cannula 2.0 28 09/29/18 18:54 99 Nasal Cannula 2.0 28 09/29/18 18:51 72 22 99 Nasal Cannula 2.0 28 09/29/18 16:40 Nasal Cannula 2.0 09/29/18 16:00 73 19 137/49 (78) 100 09/29/18 16:00 Nasal Cannula 2.0 09/29/18 16:00 81 09/29/18 15:20 82 20 100 Nasal Cannula 2.0 28 09/29/18 15:14 69 20 100 Nasal Cannula 2.0 28 09/29/18 15:00 70 20 148/54 (85) 88 09/29/18 14:00 69 20 139/59 (85) 100 Intake and Output 09/29/18 09/30/18 19:00 07:00 Intake Total 410 ml 635 ml Output Total 985 ml 1100 ml Balance -575 ml -465 ml Intake Free Water 25 ml Tube Feeding 320 ml 610 ml Other 90 ml Output Urine Total 985 ml 1100 ml Laboratory Tests 09/30/18 03:48: White Blood Count 6.3, Red Blood Count 3.98L, Hemoglobin 12.7, Hematocrit 38.4, Mean Corpuscular Volume 97, Mean Corpuscular Hemoglobin 32.0H, Mean Corpuscular Hemoglobin Concent 33.1, Red Cell Distribution Width 13.2, Platelet Count 413, Mean Platelet Volume 5.6L, Neutrophils (%) (Auto) 63.4, Lymphocytes (%) (Auto) 28.7, Monocytes (%) (Auto) 5.4, Eosinophils (%) (Auto) 1.8, Basophils (%) (Auto ) 0.8, Sodium Level 142, Potassium Level 3.9, Chloride Level 107, Carbon Dioxide Level 28, Anion Gap 7, Blood Urea Nitrogen 7, Creatinine 0.6, Estimat Glomerular Filtration Rate , Glucose Level 236H, Calcium Level 9.4 Height (Feet): 5 Height (Inches): 3.00 Weight (Pounds): 127 General Appearance: no apparent distress Objective no change Dwayne Vernon MD Sep 30, 2018 13:53
[2018-09-30 16:00] VITALS: BP 137/60
[2018-09-30] MEDS ORDERED: NS 275ml ONE (16:24)
--- NOTE | 2018-09-30 16:32 | NUR ---
NURSE NOTES: talked to dr lagos regarding patients FC, per dr lagos keep FC on because of the sacral wound. will continue to monitor.
--- NOTE | 2018-09-30 16:33 | General Progress Note ---
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 - Nephrology follow up appreciated. 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 - R gaze preference noted. - Awake today and moves her R side only # Hypertension - Monitor and resume home medications not needed now due to hypotension. # History of dementia - Supportive care - SW to attempt to find family members # Nutrition - Restart tube feeds when approved by ICU - PEG in place # DVT and GI ppx # FULL CODE by records. - CM / SW follow up for family is needed. Resident at [facility]. time of note may not reflect time of clinical encounter. Subjective Date patient seen: Sep 30, 2018 Allergies: Coded Allergies: No Known Allergies (Unverified , 02/04/17) Subjective Transferred to step down MS unchanged Afebrile and HDS Tolerating abx Objective Last 24 Hour Vital Signs Date Time Temp Pulse Resp B/P (MAP) Pulse Ox O2 Delivery O2 Flow Rate FiO2 09/30/18 16:00 Nasal Cannula 2.0 09/30/18 16:00 70 09/30/18 15:30 77 18 99 Nasal Cannula 4.0 36 09/30/18 15:18 70 18 98 Nasal Cannula 4.0 36 09/30/18 12:00 98.1 101 18 141/70 (93) 99 09/30/18 12:00 106 09/30/18 12:00 Nasal Cannula 2.0 09/30/18 11:34 76 18 99 Nasal Cannula 4.0 36 09/30/18 11:19 64 20 97 Nasal Cannula 4.0 36 09/30/18 08:00 Nasal Cannula 2.0 09/30/18 08:00 98.1 106 16 136/74 (94) 99 09/30/18 07:43 105 09/30/18 06:57 75 20 99 Nasal Cannula 4.0 36 09/30/18 06:45 100 Nasal Cannula 4.0 36 09/30/18 06:45 62 18 98 Nasal Cannula 4.0 36 09/30/18 04:00 Nasal Cannula 2.0 09/30/18 04:00 97.9 83 16 133/65 (87) 99 09/30/18 03:44 89 09/30/18 03:15 86 20 99 Nasal Cannula 2.0 28 09/30/18 03:06 74 20 98 Nasal Cannula 2.0 28 09/30/18 00:00 Nasal Cannula 2.0 09/30/18 00:00 98.1 74 18 117/57 (77) 99 09/29/18 23:34 74 09/29/18 22:36 79 20 100 Nasal Cannula 2.0 28 09/29/18 22:26 75 20 99 Nasal Cannula 2.0 28 09/29/18 20:00 97.0 69 16 126/54 (78) 99 09/29/18 20:00 Nasal Cannula 2.0 09/29/18 19:44 71 09/29/18 19:02 75 20 99 Nasal Cannula 2.0 28 09/29/18 18:54 99 Nasal Cannula 2.0 28 09/29/18 18:51 72 22 99 Nasal Cannula 2.0 28 09/29/18 16:40 Nasal Cannula 2.0 Intake and Output 09/29/18 09/30/18 19:00 07:00 Intake Total 410 ml 635 ml Output Total 985 ml 1100 ml Balance -575 ml -465 ml Intake Free Water 25 ml Tube Feeding 320 ml 610 ml Other 90 ml Output Urine Total 985 ml 1100 ml Laboratory Tests 09/30/18 03:48: White Blood Count 6.3, Red Blood Count 3.98L, Hemoglobin 12.7, Hematocrit 38.4, Mean Corpuscular Volume 97, Mean Corpuscular Hemoglobin 32.0H, Mean Corpuscular Hemoglobin Concent 33.1, Red Cell Distribution Width 13.2, Platelet Count 413, Mean Platelet Volume 5.6L, Neutrophils (%) (Auto) 63.4, Lymphocytes (%) (Auto) 28.7, Monocytes (%) (Auto) 5.4, Eosinophils (%) (Auto) 1.8, Basophils (%) (Auto ) 0.8, Sodium Level 142, Potassium Level 3.9, Chloride Level 107, Carbon Dioxide Level 28, Anion Gap 7, Blood Urea Nitrogen 7, Creatinine 0.6, Estimat Glomerular Filtration Rate , Glucose Level 236H, Calcium Level 9.4 Height (Feet): 5 Height (Inches): 3.00 Weight (Pounds): 127 Objective General Appearance: WD/WN, no apparent distress EENT: PERRL/EOMI Neck: non-tender Cardiovascular: normal peripheral pulses Respiratory/Chest: chest wall non-tender Abdomen: non tender Neurologic: resistance brazer II-XII grossly normal Johnathan Stanton MD Sep 30, 2018 16:33
--- NOTE | 2018-09-30 19:10 | NUR ---
HAND-OFF: Report given to Karina W[place].
--- NOTE | 2018-09-30 19:12 | NUR ---
NURSE NOTES: Received a bedside report from FELIX Allison.Patient stable,open eyes,non verbal,tolerated N/C well @2L/min with humidifier,GT running with Glucerna @55 ml/hr no residual at this moment,flush 250 Q 4hr,BS active in all quadrants,f/cath per Dr. meek,OPHELIA PICC TKO,bed secured in a low safety position,call light within a reach,will continue to monitor and follow POC
[2018-09-30 20:00] VITALS: BP 132/63
[2018-09-30] MEDS: Dyna-Hex 2% Top Sol 2oz TOPIC SCH (20:10)
[2018-09-30] MEDS: Levemir Flexpen SUBQ SCH (20:13)
[2018-09-30] MEDS ORDERED: cefTRIAXone 1 GM in D5W 50 ML IVPB SCH (21:00)
[2018-10-01] VITALS: BP 136/72
[2018-10-01] MEDS: Metoclopramide 10mg/10ml Liq NG SCH ×5 (00:08→23:30)
[2018-10-01] MEDS: NovoLOG Insulin Flexpen SUBQ SCH ×5 (00:11→23:34)
[2018-10-01] MEDS ORDERED: Vancomycin 1.5gm/D5W Premix 275 ML IVPB SCH (01:00)
[2018-10-01] MEDS: Albuterol/Ipratropium 3ml neb HHN SCH ×5 (02:46→20:28)
[2018-10-01 04:00] VITALS: BP 143/68
[2018-10-01 05:16] LABS: EOSINOPHILS % (AUTO) 2.6 % (0.0-3.0); HEMOGLOBIN 12.6 G/DL (12.0-16.0); LYMPHOCYTES % (AUTO) 28.3 % (20.0-45.0); MEAN CORPUSCULAR VOLUME 97 FL (80-99); MONOCYTES % (AUTO) 8.6 % (1.0-10.0); NEUTROPHILS % (AUTO) 59.6 % (45.0-75.0); PLATELET COUNT 370 K/UL (150-450); RED BLOOD COUNT 4.01 M/UL (4.20-5.40); RED CELL DISTRIBUTION WIDTH 13.7 % (11.6-14.8); WHITE BLOOD COUNT 5.8 K/UL (4.8-10.8)
[2018-10-01 05:28] LABS: ALANINE AMINOTRANSFERASE 12 U/L (12-78); ALBUMIN 2.1 G/DL (3.4-5.0); ALBUMIN/GLOBULIN RATIO 0.4 (1.0-2.7); ALKALINE PHOSPHATASE 107 U/L (46-116); ANION GAP 4 mmol/L (5-15); ASPARTATE AMINO TRANSFERASE 13 U/L (15-37); BILIRUBIN,TOTAL 0.3 MG/DL (0.2-1.0); BLOOD UREA NITROGEN 13 mg/dL (7-18); CALCIUM 9.1 MG/DL (8.5-10.1); CARBON DIOXIDE 31 MMOL/L (21-32); CHLORIDE 105 MMOL/L (98-107); CREATININE 0.7 MG/DL (0.55-1.30); SODIUM 140 MMOL/L (136-145)
--- NOTE | 2018-10-01 07:23 | NUR ---
HAND-OFF: Report given to FELIX Ruth.Patient stable.
[2018-10-01 08:00] VITALS: BP 156/72
--- NOTE | 2018-10-01 08:10 | NUR ---
NURSE NOTES: received pt in the bed, nonverbal, vital signs stable, no co pain, no SOB, skin warm and dry to touch, dressing on sacral area dry and intact, PICC line on left upper arm, dressing dry and intact, tolerate GT feeding well, Nunez catheter with yellow urine, bed in low position, HOB elevated.
--- NOTE | 2018-10-01 08:40 | Nephrology Progress Note ---
Assessment/Plan Problem List: (1) KEL (acute kidney injury) (2) Respiratory failure (3) Dehydration (4) Electrolyte imbalance (5) G tube feedings (6) Hypokalemia (7) CVA, old, hemiparesis (8) DM (diabetes mellitus) Plan now extubated - ( 09/27/18) antibiotics start feeding DC IV fluids IV KCl Pulm support correct lytes BS and BP check and monitor per consultants Subjective ROS Limited/Unobtainable: No Constitutional: Reports: malaise, weakness Objective Objective Last 24 Hour Vital Signs Date Time Temp Pulse Resp B/P (MAP) Pulse Ox O2 Delivery O2 Flow Rate FiO2 10/01/18 08:00 Nasal Cannula 2.0 10/01/18 08:00 98.2 86 18 156/72 (100) 98 10/01/18 06:54 99 Nasal Cannula 4.0 36 10/01/18 06:54 90 16 99 Nasal Cannula 4.0 36 10/01/18 06:50 80 18 98 Nasal Cannula 4.0 36 10/01/18 04:11 82 10/01/18 04:00 Nasal Cannula 2.0 10/01/18 04:00 98.2 83 18 143/68 (93) 98 10/01/18 03:19 103 18 99 Nasal Cannula 4.0 36 10/01/18 02:47 79 18 97 Nasal Cannula 4.0 36 10/01/18 00:13 91 18 100 Nasal Cannula 4.0 36 10/01/18 00:00 97.9 78 14 136/72 (93) 100 10/01/18 00:00 Nasal Cannula 2.0 09/30/18 23:51 88 18 98 Nasal Cannula 4.0 36 09/30/18 23:44 78 09/30/18 21:07 79 18 99 Nasal Cannula 4.0 36 09/30/18 20:57 77 18 98 Nasal Cannula 4.0 36 09/30/18 20:56 98 Nasal Cannula 4.0 36 09/30/18 20:00 98.2 84 18 132/63 (86) 98 09/30/18 20:00 Nasal Cannula 2.0 09/30/18 19:22 83 09/30/18 16:00 98.2 86 18 137/60 (85) 97 09/30/18 16:00 Nasal Cannula 2.0 09/30/18 16:00 70 09/30/18 15:30 77 18 99 Nasal Cannula 4.0 36 09/30/18 15:18 70 18 98 Nasal Cannula 4.0 36 09/30/18 12:00 98.1 101 18 141/70 (93) 99 09/30/18 12:00 106 09/30/18 12:00 Nasal Cannula 2.0 09/30/18 11:34 76 18 99 Nasal Cannula 4.0 36 09/30/18 11:19 64 20 97 Nasal Cannula 4.0 36 Intake and Output 09/30/18 10/01/18 19:00 07:00 Intake Total 835 ml 1680.0 ml Output Total 750 ml 550 ml Balance 85 ml 1130.0 ml Intake Free Water 175 ml 750 ml IV Total 325.0 ml Tube Feeding 660 ml 605 ml Output Urine Total 750 ml 550 ml # Bowel Movements 1 2 Laboratory Tests 10/01/18 05:00: White Blood Count 5.8, Red Blood Count 4.01L, Hemoglobin 12.6, Hematocrit 39.0, Mean Corpuscular Volume 97, Mean Corpuscular Hemoglobin 31.5H, Mean Corpuscular Hemoglobin Concent 32.4, Red Cell Distribution Width 13.7, Platelet Count 370, Mean Platelet Volume 5.8L, Neutrophils (%) (Auto) 59.6, Lymphocytes (%) (Auto) 28.3, Monocytes (%) (Auto) 8.6, Eosinophils (%) (Auto) 2.6, Basophils (%) (Auto ) 1.0, Sodium Level 140, Potassium Level 4.0, Chloride Level 105, Carbon Dioxide Level 31, Anion Gap 4L, Blood Urea Nitrogen 13, Creatinine 0.7, Estimat Glomerular Filtration Rate , Glucose Level 224H, Calcium Level 9.1, Phosphorus Level 3.0, Magnesium Level 1.8, Total Bilirubin 0.3, Aspartate Amino Transf (AST /SGOT) 13L, Alanine Aminotransferase (ALT/SGPT) 12, Alkaline Phosphatase 107, Total Protein 7.2, Albumin 2.1L, Globulin 5.1, Albumin/Globulin Ratio 0.4L Height (Feet): 5 Height (Inches): 3.00 Weight (Pounds): 126 General Appearance: no apparent distress Objective no change Dwayne Vernon MD Oct 01, 2018 08:40
[2018-10-01] MEDS: Docusate 100mg tablet GT SCH ×4 (08:47→18:00)
[2018-10-01] MEDS: Ascorbic Acid 500mg tab ORAL SCH ×2 (08:47→18:03)
[2018-10-01] MEDS: Heparin 5000 units/ml inj SUBQ SCH ×2 (08:52→21:07)
[2018-10-01] MEDS ORDERED: NS 275ml ONE ×2 (09:52→09:53)
[2018-10-01] MEDS ORDERED: Tubing IV Secondary IV ONE ×2 (09:52→09:53)
--- NOTE | 2018-10-01 10:31 | GI Progress Note ---
Assessment/Plan Problems: (1) DM (diabetes mellitus) ICD Codes: E11.9 - Type 2 diabetes mellitus without complications SNOMED: 11198996 (2) Dehydration ICD Codes: E86.0 - Dehydration SNOMED: 77392748 (3) G tube feedings ICD Codes: Z93.1 - Gastrostomy status SNOMED: 552697046, 809675565, 903351242 (4) Electrolyte imbalance ICD Codes: E87.8 - Other disorders of electrolyte and fluid balance, not elsewhere classified SNOMED: 387544489 (5) Sepsis ICD Codes: A41.9 - Sepsis, unspecified organism SNOMED: 34051871 Status: progressing, unchanged Status Narrative Discussed with Dr. Brown. Assessment/Plan GTF fu labs abx per ID respiratory care fu abd us>> neg fu labs supportive care The patient was seen and examined at bedside and all new and available data was reviewed in the patients chart. I agree with the above findings, impression and plan. (Patient seen earlier today. Signature stamp does not reflect patient encounter time.). - Ovi Brown MD Subjective Subjective limited Objective Last 24 Hour Vital Signs Date Time Temp Pulse Resp B/P (MAP) Pulse Ox O2 Delivery O2 Flow Rate FiO2 10/01/18 08:00 Nasal Cannula 2.0 10/01/18 08:00 98.2 86 18 156/72 (100) 98 10/01/18 08:00 80 10/01/18 06:54 99 Nasal Cannula 4.0 36 10/01/18 06:54 90 16 99 Nasal Cannula 4.0 36 10/01/18 06:50 80 18 98 Nasal Cannula 4.0 36 10/01/18 04:11 82 10/01/18 04:00 Nasal Cannula 2.0 10/01/18 04:00 98.2 83 18 143/68 (93) 98 10/01/18 03:19 103 18 99 Nasal Cannula 4.0 36 10/01/18 02:47 79 18 97 Nasal Cannula 4.0 36 10/01/18 00:13 91 18 100 Nasal Cannula 4.0 36 10/01/18 00:00 97.9 78 14 136/72 (93) 100 10/01/18 00:00 Nasal Cannula 2.0 09/30/18 23:51 88 18 98 Nasal Cannula 4.0 36 09/30/18 23:44 78 09/30/18 21:07 79 18 99 Nasal Cannula 4.0 36 09/30/18 20:57 77 18 98 Nasal Cannula 4.0 36 09/30/18 20:56 98 Nasal Cannula 4.0 36 09/30/18 20:00 98.2 84 18 132/63 (86) 98 09/30/18 20:00 Nasal Cannula 2.0 09/30/18 19:22 83 09/30/18 16:00 98.2 86 18 137/60 (85) 97 09/30/18 16:00 Nasal Cannula 2.0 09/30/18 16:00 70 09/30/18 15:30 77 18 99 Nasal Cannula 4.0 36 09/30/18 15:18 70 18 98 Nasal Cannula 4.0 36 09/30/18 12:00 98.1 101 18 141/70 (93) 99 09/30/18 12:00 106 09/30/18 12:00 Nasal Cannula 2.0 09/30/18 11:34 76 18 99 Nasal Cannula 4.0 36 09/30/18 11:19 64 20 97 Nasal Cannula 4.0 36 Intake and Output 09/30/18 10/01/18 19:00 07:00 Intake Total 835 ml 1680.0 ml Output Total 750 ml 550 ml Balance 85 ml 1130.0 ml Intake Free Water 175 ml 750 ml IV Total 325.0 ml Tube Feeding 660 ml 605 ml Output Urine Total 750 ml 550 ml # Bowel Movements 1 2 Laboratory Tests Test 10/01/18 05:00 White Blood Count 5.8 K/UL (4.8-10.8) Red Blood Count 4.01 M/UL (4.20-5.40) L Hemoglobin 12.6 G/DL (12.0-16.0) Hematocrit 39.0 % (37.0-47.0) Mean Corpuscular Volume 97 FL (80-99) Mean Corpuscular Hemoglobin 31.5 PG (27.0-31.0) H Mean Corpuscular Hemoglobin Concent 32.4 G/DL (32.0-36.0) Red Cell Distribution Width 13.7 % (11.6-14.8) Platelet Count 370 K/UL (150-450) Mean Platelet Volume 5.8 FL (6.5-10.1) L Neutrophils (%) (Auto) 59.6 % (45.0-75.0) Lymphocytes (%) (Auto) 28.3 % (20.0-45.0) Monocytes (%) (Auto) 8.6 % (1.0-10.0) Eosinophils (%) (Auto) 2.6 % (0.0-3.0) Basophils (%) (Auto) 1.0 % (0.0-2.0) Sodium Level 140 MMOL/L (136-145) Potassium Level 4.0 MMOL/L (3.5-5.1) Chloride Level 105 MMOL/L (98-107) Carbon Dioxide Level 31 MMOL/L (21-32) Anion Gap 4 mmol/L (5-15) L Blood Urea Nitrogen 13 mg/dL (7-18) Creatinine 0.7 MG/DL (0.55-1.30) Estimat Glomerular Filtration Rate mL/min (>60) Glucose Level 224 MG/DL (74-106) H Calcium Level 9.1 MG/DL (8.5-10.1) Phosphorus Level 3.0 MG/DL (2.5-4.9) Magnesium Level 1.8 MG/DL (1.8-2.4) Total Bilirubin 0.3 MG/DL (0.2-1.0) Aspartate Amino Transf (AST/SGOT) 13 U/L (15-37) L Alanine Aminotransferase (ALT/SGPT) 12 U/L (12-78) Alkaline Phosphatase 107 U/L (46-116) Total Protein 7.2 G/DL (6.4-8.2) Albumin 2.1 G/DL (3.4-5.0) L Globulin 5.1 g/dL Albumin/Globulin Ratio 0.4 (1.0-2.7) L Height (Feet): 5 Height (Inches): 3.00 Weight (Pounds): 126 General Appearance: WD/WN, no apparent distress, alert Cardiovascular: normal rate Respiratory/Chest: normal breath sounds, no respiratory distress Abdominal Exam: normal bowel sounds, non tender, soft, GT site - c/d/i Extremities: normal range of motion, non-tender Valente Bethea NP Oct 01, 2018 10:31
--- NOTE | 2018-10-01 10:52 | Surgery Progress Note ---
Surgery Progress Note Subjective Additional Comments downgraded. labs noted exam unchanged respiratory improved ? quality of life Objective Last 24 Hour Vital Signs Date Time Temp Pulse Resp B/P (MAP) Pulse Ox O2 Delivery O2 Flow Rate FiO2 10/01/18 08:00 Nasal Cannula 2.0 10/01/18 08:00 98.2 86 18 156/72 (100) 98 10/01/18 08:00 80 10/01/18 06:54 99 Nasal Cannula 4.0 36 10/01/18 06:54 90 16 99 Nasal Cannula 4.0 36 10/01/18 06:50 80 18 98 Nasal Cannula 4.0 36 10/01/18 04:11 82 10/01/18 04:00 Nasal Cannula 2.0 10/01/18 04:00 98.2 83 18 143/68 (93) 98 10/01/18 03:19 103 18 99 Nasal Cannula 4.0 36 10/01/18 02:47 79 18 97 Nasal Cannula 4.0 36 10/01/18 00:13 91 18 100 Nasal Cannula 4.0 36 10/01/18 00:00 97.9 78 14 136/72 (93) 100 10/01/18 00:00 Nasal Cannula 2.0 09/30/18 23:51 88 18 98 Nasal Cannula 4.0 36 09/30/18 23:44 78 09/30/18 21:07 79 18 99 Nasal Cannula 4.0 36 09/30/18 20:57 77 18 98 Nasal Cannula 4.0 36 09/30/18 20:56 98 Nasal Cannula 4.0 36 09/30/18 20:00 98.2 84 18 132/63 (86) 98 09/30/18 20:00 Nasal Cannula 2.0 09/30/18 19:22 83 09/30/18 16:00 98.2 86 18 137/60 (85) 97 09/30/18 16:00 Nasal Cannula 2.0 09/30/18 16:00 70 09/30/18 15:30 77 18 99 Nasal Cannula 4.0 36 09/30/18 15:18 70 18 98 Nasal Cannula 4.0 36 09/30/18 12:00 98.1 101 18 141/70 (93) 99 09/30/18 12:00 106 09/30/18 12:00 Nasal Cannula 2.0 09/30/18 11:34 76 18 99 Nasal Cannula 4.0 36 09/30/18 11:19 64 20 97 Nasal Cannula 4.0 36 I&O Intake and Output 09/30/18 10/01/18 19:00 07:00 Intake Total 835 ml 1680.0 ml Output Total 750 ml 550 ml Balance 85 ml 1130.0 ml Intake Free Water 175 ml 750 ml IV Total 325.0 ml Tube Feeding 660 ml 605 ml Output Urine Total 750 ml 550 ml # Bowel Movements 1 2 Dressing: other Wound: other Drains: other Cardiovascular: RSR Respiratory: decreased breath sounds Abdomen: soft, present bowel sounds Extremities: no cyanosis Laboratory Tests Test 10/01/18 05:00 White Blood Count 5.8 K/UL (4.8-10.8) Red Blood Count 4.01 M/UL (4.20-5.40) L Hemoglobin 12.6 G/DL (12.0-16.0) Hematocrit 39.0 % (37.0-47.0) Mean Corpuscular Volume 97 FL (80-99) Mean Corpuscular Hemoglobin 31.5 PG (27.0-31.0) H Mean Corpuscular Hemoglobin Concent 32.4 G/DL (32.0-36.0) Red Cell Distribution Width 13.7 % (11.6-14.8) Platelet Count 370 K/UL (150-450) Mean Platelet Volume 5.8 FL (6.5-10.1) L Neutrophils (%) (Auto) 59.6 % (45.0-75.0) Lymphocytes (%) (Auto) 28.3 % (20.0-45.0) Monocytes (%) (Auto) 8.6 % (1.0-10.0) Eosinophils (%) (Auto) 2.6 % (0.0-3.0) Basophils (%) (Auto) 1.0 % (0.0-2.0) Sodium Level 140 MMOL/L (136-145) Potassium Level 4.0 MMOL/L (3.5-5.1) Chloride Level 105 MMOL/L (98-107) Carbon Dioxide Level 31 MMOL/L (21-32) Anion Gap 4 mmol/L (5-15) L Blood Urea Nitrogen 13 mg/dL (7-18) Creatinine 0.7 MG/DL (0.55-1.30) Estimat Glomerular Filtration Rate mL/min (>60) Glucose Level 224 MG/DL (74-106) H Calcium Level 9.1 MG/DL (8.5-10.1) Phosphorus Level 3.0 MG/DL (2.5-4.9) Magnesium Level 1.8 MG/DL (1.8-2.4) Total Bilirubin 0.3 MG/DL (0.2-1.0) Aspartate Amino Transf (AST/SGOT) 13 U/L (15-37) L Alanine Aminotransferase (ALT/SGPT) 12 U/L (12-78) Alkaline Phosphatase 107 U/L (46-116) Total Protein 7.2 G/DL (6.4-8.2) Albumin 2.1 G/DL (3.4-5.0) L Globulin 5.1 g/dL Albumin/Globulin Ratio 0.4 (1.0-2.7) L Plan Problems: (1) Sepsis Assessment & Plan: 77-year-old female presented to [facility] in distress found to be septic with leukocytosis tachycardia and requiring ventilatory support. Patient's labs noted and significant abnormal. Lactic acidosis. Severe dehydration. IV fluids IV antibiotics as per infectious disease Trend labs US noted cont with feeds as tolearted cont with current care plan We will follow with recommendations Thank you for allowing me to participate in patient's care (2) Lactic acid acidosis (3) Upper sacral area unstageable pressure ulcer Assessment & Plan: Loose dry scab noted to L ear and easily removed. Skin is clean and intact. Full thickness sacral pressure injury with slough centrally at sacrococcygeal area with surrounding pink granulation.(L)Area of slough measures (L)1.4cm x (W)1cm.Total pressure injury measures (L)4cm x (W)5.5cm. R and L heels are soft ,pink and each heel are easily blanchable. Tx.Plan: Cleanse sacral wound with saline. Apply Therahoney.Apply Moisture Barrier Paste to periwound. Cover with Optifoam drsg. Change every 3 days and prn. Apply Cavilon Skin Barrier to both heels. Cover each heel with Opifoam drsg. Change every 7 days and prn. APM/LOU Mattress overlay. Reposition at least every 2hours or as tolerated. Off-load heels with pillow. (4) G tube feedings Assessment & Plan: DAILY ESTIMATED NEEDS: Needs based on Critical care, sepsis, wound, DM 53.6kg 25-32 kcals/kg [id number] total kcals 1.25-2 g protein/kg 67-107 g total protein 25-32ml/kcal mL/kg 3740-9566 total fluid mLs NUTRITION DIAGNOSIS: 1) Swallowing difficulty R/T dysphagia, CVA as evidenced by PEG dependent, now orally intubated. 2) Increased kcal and pro needs r/t sepsis and wound healing as evidenced by elev BG and POC (200-400's), elev WBC (15.7), febrile (Tmax 100.9), elev Na (148), sacral wound/ unstageable per MD. CURRENT TF: Glucerna 1.2 @60 hrs ENTERAL NUTRITION RECOMMENDATIONS: Glucerna 1.2 @55ml/hr x24 hrs + Prosource x1 daily to provide 1320ml, 1584 kcal, 79g + 11g pro, 1063ml free H2O - Maintain Glucerna 1.2 -> Rec to REDUCE RATE to goal of 55ml/hr - Add Prosource x1 daily to better meet est pro needs - HOB over 30 degrees - Flush per MD-> 150q6 for added 600ml free fluid per day (1063ml from TF + 600ml flushes= 1663ml free fluid per day). ------ ADDITIONAL RECOMMENDATIONS: 1) Monitor hydration status 2) Obtain an accurate calibrated bed scale wt 3) Lytes daily on TF/ replete as needed 4) Rec increase hypoglycemic agents for improved BG control 5) Sacral wound: add AYDEE BID via PEG daily + Vit C 250mg BID daily via GT (5) Respiratory failure (6) Ventilator dependence Akhil Jackson Oct 01, 2018 10:52
--- NOTE | 2018-10-01 11:45 | General Progress Note ---
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 - Nephrology follow up appreciated. 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 - R gaze preference noted. - Awake today and moves her R side only # Hypertension - Monitor and resume home medications not needed now due to hypotension. # History of dementia - Supportive care - SW to attempt to find family members # Nutrition - Restart tube feeds when approved by ICU - PEG in place # DVT and GI ppx # FULL CODE by records. - CM / SW follow up for family is needed. Resident at [facility]. time of note may not reflect time of clinical encounter. Subjective Allergies: Coded Allergies: No Known Allergies (Unverified , 02/04/17) Subjective tmax 100.0 after zosyn changed to merrem + Cuff leak neurologically the same Objective Last 24 Hour Vital Signs Date Time Temp Pulse Resp B/P (MAP) Pulse Ox O2 Delivery O2 Flow Rate FiO2 10/01/18 11:03 68 14 100 Nasal Cannula 4.0 36 10/01/18 10:55 66 14 97 Nasal Cannula 4.0 36 10/01/18 08:00 Nasal Cannula 2.0 10/01/18 08:00 98.2 86 18 156/72 (100) 98 10/01/18 08:00 80 10/01/18 06:54 99 Nasal Cannula 4.0 36 10/01/18 06:54 90 16 99 Nasal Cannula 4.0 36 10/01/18 06:50 80 18 98 Nasal Cannula 4.0 36 10/01/18 04:11 82 10/01/18 04:00 Nasal Cannula 2.0 10/01/18 04:00 98.2 83 18 143/68 (93) 98 10/01/18 03:19 103 18 99 Nasal Cannula 4.0 36 10/01/18 02:47 79 18 97 Nasal Cannula 4.0 36 10/01/18 00:13 91 18 100 Nasal Cannula 4.0 36 10/01/18 00:00 97.9 78 14 136/72 (93) 100 10/01/18 00:00 Nasal Cannula 2.0 09/30/18 23:51 88 18 98 Nasal Cannula 4.0 36 09/30/18 23:44 78 09/30/18 21:07 79 18 99 Nasal Cannula 4.0 36 09/30/18 20:57 77 18 98 Nasal Cannula 4.0 36 09/30/18 20:56 98 Nasal Cannula 4.0 36 09/30/18 20:00 98.2 84 18 132/63 (86) 98 09/30/18 20:00 Nasal Cannula 2.0 09/30/18 19:22 83 09/30/18 16:00 98.2 86 18 137/60 (85) 97 09/30/18 16:00 Nasal Cannula 2.0 09/30/18 16:00 70 09/30/18 15:30 77 18 99 Nasal Cannula 4.0 36 09/30/18 15:18 70 18 98 Nasal Cannula 4.0 36 09/30/18 12:00 98.1 101 18 141/70 (93) 99 09/30/18 12:00 106 09/30/18 12:00 Nasal Cannula 2.0 Intake and Output 09/30/18 10/01/18 19:00 07:00 Intake Total 835 ml 1680.0 ml Output Total 750 ml 550 ml Balance 85 ml 1130.0 ml Intake Free Water 175 ml 750 ml IV Total 325.0 ml Tube Feeding 660 ml 605 ml Output Urine Total 750 ml 550 ml # Bowel Movements 1 2 Laboratory Tests 10/01/18 05:00: White Blood Count 5.8, Red Blood Count 4.01L, Hemoglobin 12.6, Hematocrit 39.0, Mean Corpuscular Volume 97, Mean Corpuscular Hemoglobin 31.5H, Mean Corpuscular Hemoglobin Concent 32.4, Red Cell Distribution Width 13.7, Platelet Count 370, Mean Platelet Volume 5.8L, Neutrophils (%) (Auto) 59.6, Lymphocytes (%) (Auto) 28.3, Monocytes (%) (Auto) 8.6, Eosinophils (%) (Auto) 2.6, Basophils (%) (Auto ) 1.0, Sodium Level 140, Potassium Level 4.0, Chloride Level 105, Carbon Dioxide Level 31, Anion Gap 4L, Blood Urea Nitrogen 13, Creatinine 0.7, Estimat Glomerular Filtration Rate , Glucose Level 224H, Calcium Level 9.1, Phosphorus Level 3.0, Magnesium Level 1.8, Total Bilirubin 0.3, Aspartate Amino Transf (AST /SGOT) 13L, Alanine Aminotransferase (ALT/SGPT) 12, Alkaline Phosphatase 107, Total Protein 7.2, Albumin 2.1L, Globulin 5.1, Albumin/Globulin Ratio 0.4L Height (Feet): 5 Height (Inches): 3.00 Weight (Pounds): 126 Objective GEN: intubated, eyes open, right side gaze preference HEENT: pupils 8mm and sluggish CV: RRR, no M, R, G, no jvd RESP: CTAB, no w/r/c ABD: normal bowel sounds, soft, non tender EXT: normal muscle tone, no tenderness NEURO: no changes, does not withdraw from pain, blinks to hand toward face, no tracking Desiree Helm DO Oct 01, 2018 11:45
[2018-10-01 12:00] VITALS: BP 154/76
--- NOTE | 2018-10-01 12:30 | Hematology/Onc Progress Note ---
Assessment/Plan Assessment/Plan Assessment and Recs: # Thrombocytopenia --> now with thrombocytosis - potential causes multifactorial , evaluate liver and viral etiologies to begin, also could be related to underlying medications patient has received. --> Hep panel and HIV show neg results --> US abd shows no cirrhosis or hsm --> Peripheral smear ordered to evaluate for blasts /schistocytes --> abx and other meds have been reviewed --> ok for ppx if plt >50k w/ either heparin or lovenox --> Transfuse if Plt < 20k and fever, or if Plt < 10k without fever --> trend plts --> 182k-->160-->140-->119-->140k-->200k->529->527k->555k->509k- >370 --> asa but not at this time --> meds reviewed and may be 2/2 vanc and amikacin but at this time ok to continue since borderline # Anemia of iron deficiency, iron completed --> Workup reviewed, consistent with AID --> No evidence of hemolysis is noted, peripheral smear has been reviewed --> Hgb goal >7. Transfuse prn. --> Iron to continue --> Medications have been reviewed --> hgb 12-->10.7-->11.3-->10.8-->11->12->12.6 # Dysphagia and now s/p nG tube feedings --> as per gi, ng tube feedsings # Respo failure on ventuntil 09/27 --> off vent since 09/28 # Dehydration --> on ivfs, currently off per renal # Sepsis --> abx per id --> adjust as needed --> reviewed(hwitney/vanc)--> ctx/vanc # DVT ppx with heparin sq The timing of this note does not necessarily reflect the time of the patient was seen. GREATLY APPRECIATE CONSULTATION. Subjective Allergies: Coded Allergies: No Known Allergies (Unverified , 02/04/17) Subjective 09/18: is on iron, as well as broad spectrum abx, labs reviewed 09/19: no events to report, angie Robertson rn, tfs ongoing via ng, on vent to wean protocol 09/20: remains intubated, unchanged 09/21: in icu, no major changes, no f/c, no night sweats 09/23: remains in the icu, considering extubation, no f/c noted 09/24: patient unable to be weaned, para was done, daily sbt 09/25: on abx, on vent, taylor, draining well, peg ongong tfs 09/26: gtf on hold, no fevers or chills, hgb better, weaning trial 09/27: still on vent, no major changes, no f/c, seen by pulm 09/28: now off the vent, no bleeding, remains altered 10/01: no overnight events, resting in bed, labs reviewed Objective Objective Current Medications Medications (Trade) Dose Ordered Sig/Wayne Route PRN Reason Start Time Stop Time Status Last Admin Dose Admin Acetaminophen (Tylenol) 650 mg Q4H PRN GT Mild Pain/Temp > 100.5 09/29/18 14:38 10/23/18 14:37 Acetylcysteine (Mucomyst) 100 mg Q4HRT N 09/29/18 15:00 10/21/18 18:59 10/01/18 10:56 Albuterol/ Ipratropium (Albuterol/ Ipratropium) 3 ml Q4HRT N 09/29/18 15:00 10/01/18 22:59 10/01/18 10:55 Artificial Tears (Akwa-Tears) 1 drop Q4H PRN BOTH EYES Dry Eyes 09/29/18 14:40 10/18/18 14:39 Ascorbic Acid (Vitamin C) 250 mg TWICE A DAY ORAL 09/29/18 18:00 10/18/18 17:59 10/01/18 08:47 Bisacodyl (Dulcolax) 10 mg DAILYPRN PRN RECTAL Constipation 09/30/18 14:38 10/14/18 14:37 Ceftriaxone Sodium 1 gm/ Dextrose 50 ml @ 100 mls/hr Q24H IVPB 09/30/18 21:00 10/03/18 20:59 09/30/18 20:11 Chlorhexidine Gluconate (Kamla-Hex 2%) 1 applic DAILY@2000 TOPIC 09/29/18 20:00 10/17/18 19:59 09/30/18 20:10 Dextrose (Dextrose 50%) 25 ml Q30M PRN IV Hypoglycemia 09/29/18 14:39 10/14/18 14:38 Dextrose (Dextrose 50%) 50 ml Q30M PRN IV Hypoglycemia 09/29/18 14:39 10/14/18 14:38 Diphenhydramine HCl (Benadryl) 25 mg Q6H PRN ORAL Itching/Pruritis 09/29/18 14:39 10/14/18 14:38 Docusate Sodium (Colace) 100 mg TID GT 09/29/18 18:00 10/25/18 08:59 10/01/18 08:47 Famotidine (Pepcid) 20 mg BID GT 09/29/18 18:00 10/28/18 17:59 10/01/18 08:47 Furosemide (Lasix) 20 mg DAILY GT 09/30/18 09:00 10/22/18 08:59 10/01/18 08:48 Heparin Sodium (Porcine) (Heparin 5000 units/ml) 5,000 units EVERY 12 HOURS SUBQ 09/29/18 21:00 10/14/18 20:59 10/01/18 08:52 Insulin Aspart (NovoLOG) Q6HR SUBQ 09/29/18 18:00 10/14/18 15:59 10/01/18 12:09 Insulin Detemir (Levemir) 12 units BEDTIME SUBQ 09/29/18 21:00 10/17/18 20:59 09/30/18 20:13 Magnesium Hydroxide (Mom) 30 ml HSPRN PRN ORAL Constipation 09/29/18 21:00 10/29/18 20:59 Metoclopramide HCl (Reglan) 5 mg EVERY 6 HOURS NG 09/29/18 18:00 10/28/18 11:59 10/01/18 12:08 Metoclopramide HCl (Reglan) 10 mg Q8H PRN IVP Nausea & Vomiting 09/29/18 14:41 10/17/18 14:40 Ondansetron HCl (Zofran) 4 mg Q6H PRN IVP Nausea & Vomiting 09/29/18 14:39 10/14/18 14:38 Vancomycin HCl (Vanco rx to dose) 1 ea DAILY PRN MISC Per rx protocol 09/30/18 13:00 10/30/18 12:59 Vancomycin HCl/ Dextrose 275 ml @ 137.5 mls/ hr Q24H IVPB 10/01/18 01:00 10/03/18 00:59 10/01/18 00:09 Last 24 Hour Vital Signs Date Time Temp Pulse Resp B/P (MAP) Pulse Ox O2 Delivery O2 Flow Rate FiO2 10/01/18 11:03 68 14 100 Nasal Cannula 4.0 36 10/01/18 10:55 66 14 97 Nasal Cannula 4.0 36 10/01/18 08:00 Nasal Cannula 2.0 10/01/18 08:00 98.2 86 18 156/72 (100) 98 10/01/18 08:00 80 10/01/18 06:54 99 Nasal Cannula 4.0 36 10/01/18 06:54 90 16 99 Nasal Cannula 4.0 36 10/01/18 06:50 80 18 98 Nasal Cannula 4.0 36 10/01/18 04:11 82 10/01/18 04:00 Nasal Cannula 2.0 10/01/18 04:00 98.2 83 18 143/68 (93) 98 10/01/18 03:19 103 18 99 Nasal Cannula 4.0 36 10/01/18 02:47 79 18 97 Nasal Cannula 4.0 36 10/01/18 00:13 91 18 100 Nasal Cannula 4.0 36 10/01/18 00:00 97.9 78 14 136/72 (93) 100 10/01/18 00:00 Nasal Cannula 2.0 09/30/18 23:51 88 18 98 Nasal Cannula 4.0 36 09/30/18 23:44 78 09/30/18 21:07 79 18 99 Nasal Cannula 4.0 36 09/30/18 20:57 77 18 98 Nasal Cannula 4.0 36 09/30/18 20:56 98 Nasal Cannula 4.0 36 09/30/18 20:00 98.2 84 18 132/63 (86) 98 09/30/18 20:00 Nasal Cannula 2.0 09/30/18 19:22 83 09/30/18 16:00 98.2 86 18 137/60 (85) 97 09/30/18 16:00 Nasal Cannula 2.0 09/30/18 16:00 70 09/30/18 15:30 77 18 99 Nasal Cannula 4.0 36 09/30/18 15:18 70 18 98 Nasal Cannula 4.0 36 09/30/18 12:00 98.1 101 18 141/70 (93) 99 09/30/18 12:00 106 09/30/18 12:00 Nasal Cannula 2.0 09/30/18 11:34 76 18 99 Nasal Cannula 4.0 36 09/30/18 11:19 64 20 97 Nasal Cannula 4.0 36 09/30/18 08:00 Nasal Cannula 2.0 09/30/18 08:00 98.1 106 16 136/74 (94) 99 09/30/18 07:43 105 09/30/18 06:57 75 20 99 Nasal Cannula 4.0 36 09/30/18 06:45 100 Nasal Cannula 4.0 36 09/30/18 06:45 62 18 98 Nasal Cannula 4.0 36 09/30/18 04:00 Nasal Cannula 2.0 09/30/18 04:00 97.9 83 16 133/65 (87) 99 09/30/18 03:44 89 09/30/18 03:15 86 20 99 Nasal Cannula 2.0 28 09/30/18 03:06 74 20 98 Nasal Cannula 2.0 28 09/30/18 00:00 Nasal Cannula 2.0 09/30/18 00:00 98.1 74 18 117/57 (77) 99 09/29/18 23:34 74 09/29/18 22:36 79 20 100 Nasal Cannula 2.0 28 09/29/18 22:26 75 20 99 Nasal Cannula 2.0 28 09/29/18 20:00 97.0 69 16 126/54 (78) 99 09/29/18 20:00 Nasal Cannula 2.0 09/29/18 19:44 71 09/29/18 19:02 75 20 99 Nasal Cannula 2.0 28 09/29/18 18:54 99 Nasal Cannula 2.0 28 09/29/18 18:51 72 22 99 Nasal Cannula 2.0 28 09/29/18 16:40 Nasal Cannula 2.0 09/29/18 16:00 73 19 137/49 (78) 100 09/29/18 16:00 Nasal Cannula 2.0 09/29/18 16:00 81 09/29/18 15:20 82 20 100 Nasal Cannula 2.0 28 09/29/18 15:14 69 20 100 Nasal Cannula 2.0 28 09/29/18 15:00 70 20 148/54 (85) 88 09/29/18 14:00 69 20 139/59 (85) 100 09/29/18 13:00 72 20 125/62 (83) 100 Intake and Output 09/30/18 10/01/18 19:00 07:00 Intake Total 835 ml 1680.0 ml Output Total 750 ml 550 ml Balance 85 ml 1130.0 ml Intake Free Water 175 ml 750 ml IV Total 325.0 ml Tube Feeding 660 ml 605 ml Output Urine Total 750 ml 550 ml # Bowel Movements 1 2 Labs Test 09/29/18 04:33 09/30/18 03:48 10/01/18 05:00 White Blood Count 6.0 K/UL (4.8-10.8) 6.3 K/UL (4.8-10.8) 5.8 K/UL (4.8-10.8) Red Blood Count 4.39 M/UL (4.20-5.40) 3.98 M/UL (4.20-5.40) 4.01 M/UL (4.20-5.40) Hemoglobin 13.7 G/DL (12.0-16.0) 12.7 G/DL (12.0-16.0) 12.6 G/DL (12.0-16.0) Hematocrit 42.3 % (37.0-47.0) 38.4 % (37.0-47.0) 39.0 % (37.0-47.0) Mean Corpuscular Volume 96 FL (80-99) 97 FL (80-99) 97 FL (80-99) Mean Corpuscular Hemoglobin 31.1 PG (27.0-31.0) 32.0 PG (27.0-31.0) 31.5 PG (27.0-31.0) Mean Corpuscular Hemoglobin Concent 32.3 G/DL (32.0-36.0) 33.1 G/DL (32.0-36.0) 32.4 G/DL (32.0-36.0) Red Cell Distribution Width 13.5 % (11.6-14.8) 13.2 % (11.6-14.8) 13.7 % (11.6-14.8) Platelet Count 419 K/UL (150-450) 413 K/UL (150-450) 370 K/UL (150-450) Mean Platelet Volume 5.0 FL (6.5-10.1) 5.6 FL (6.5-10.1) 5.8 FL (6.5-10.1) Neutrophils (%) (Auto) 62.1 % (45.0-75.0) 63.4 % (45.0-75.0) 59.6 % (45.0-75.0) Lymphocytes (%) (Auto) 28.6 % (20.0-45.0) 28.7 % (20.0-45.0) 28.3 % (20.0-45.0) Monocytes (%) (Auto) 6.3 % (1.0-10.0) 5.4 % (1.0-10.0) 8.6 % (1.0-10.0) Eosinophils (%) (Auto) 1.7 % (0.0-3.0) 1.8 % (0.0-3.0) 2.6 % (0.0-3.0) Basophils (%) (Auto) 1.3 % (0.0-2.0) 0.8 % (0.0-2.0) 1.0 % (0.0-2.0) Sodium Level 140 MMOL/L (136-145) 142 MMOL/L (136-145) 140 MMOL/L (136-145) Potassium Level 4.0 MMOL/L (3.5-5.1) 3.9 MMOL/L (3.5-5.1) 4.0 MMOL/L (3.5-5.1) Chloride Level 106 MMOL/L (98-107) 107 MMOL/L (98-107) 105 MMOL/L (98-107) Carbon Dioxide Level 24 MMOL/L (21-32) 28 MMOL/L (21-32) 31 MMOL/L (21-32) Anion Gap 10 mmol/L (5-15) 7 mmol/L (5-15) 4 mmol/L (5-15) Blood Urea Nitrogen 4 mg/dL (7-18) 7 mg/dL (7-18) 13 mg/dL (7-18) Creatinine 0.5 MG/DL (0.55-1.30) 0.6 MG/DL (0.55-1.30) 0.7 MG/DL (0.55-1.30) Estimat Glomerular Filtration Rate mL/min (>60) mL/min (>60) mL/min (>60) Glucose Level 154 MG/DL (74-106) 236 MG/DL (74-106) 224 MG/DL (74-106) Calcium Level 9.2 MG/DL (8.5-10.1) 9.4 MG/DL (8.5-10.1) 9.1 MG/DL (8.5-10.1) Phosphorus Level 3.0 MG/DL (2.5-4.9) Magnesium Level 1.8 MG/DL (1.8-2.4) Total Bilirubin 0.3 MG/DL (0.2-1.0) Aspartate Amino Transf (AST/SGOT) 13 U/L (15-37) Alanine Aminotransferase (ALT/SGPT) 12 U/L (12-78) Alkaline Phosphatase 107 U/L (46-116) Total Protein 7.2 G/DL (6.4-8.2) Albumin 2.1 G/DL (3.4-5.0) Globulin 5.1 g/dL Albumin/Globulin Ratio 0.4 (1.0-2.7) Height (Feet): 5 Height (Inches): 3.00 Weight (Pounds): 126 Objective Physical Exam: Vitals: reviewed General Appearance: NAD HEENT: normocephalic, atraumatic ++ogt Chest: normal breath sounds bilaterally OFF VENT Cardiovascular: normal peripheral pulses, normal rate Abdomen: normal bowel sounds, soft, nontender ++ gtube Extremities: normal range of motion Mateo Wei MD Oct 01, 2018 12:30
--- NOTE | 2018-10-01 14:00 | NUR ---
NURSE NOTES: no distress noted, vital signs stable, no SOB, continue monitoring.
--- NOTE | 2018-10-01 14:11 | Infectious Diseases Prog Note ---
Assessment/Plan Assessment/Plan ASSESSMENT AND PLAN: 1. 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 felecia care 3. Skin care protocol. 4. History of CVA and TIA, and aspiration risk. 5. Dementia. 6. Hypertension. 7. Blood pressure treatment per primary. 8. Acute kidney injury. 9. Weakness. 10. Hemiplegia. 11. Dysphagia, G-tube. 12. Encephalopathy. 13. No known drug allergies. 14. Social history is negative. 15. Family history is noncontributory. 16. MAR was noted. 17. Case discussed with RN. 18. Continue treatment per primary consultants. 19. Notes and records were noted. Orders were entered. 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, vre colonization Subjective Constitutional: Denies: fever HEENT: Denies: congestion Respiratory: Denies: shortness of breath Cardiovascular: Denies: chest pain Gastrointestinal/Abdominal: Reports: nausea; Denies: vomiting Genitourinary: Reports: other - + taylor Neurologic: Denies: headache Psychiatric: Denies: depression Skin: Denies: rash Hematologic: Denies: bleeding Musculoskeletal: Denies: pain Allergies: Coded Allergies: No Known Allergies (Unverified , 02/04/17) Objective Vital Signs Last 24 Hour Vital Signs Date Time Temp Pulse Resp B/P (MAP) Pulse Ox O2 Delivery O2 Flow Rate FiO2 10/01/18 12:00 Nasal Cannula 2.0 10/01/18 12:00 92 10/01/18 12:00 99.0 92 20 154/76 (102) 99 10/01/18 11:03 68 14 100 Nasal Cannula 4.0 36 10/01/18 10:55 66 14 97 Nasal Cannula 4.0 36 10/01/18 08:00 Nasal Cannula 2.0 10/01/18 08:00 98.2 86 18 156/72 (100) 98 10/01/18 08:00 80 10/01/18 06:54 99 Nasal Cannula 4.0 36 10/01/18 06:54 90 16 99 Nasal Cannula 4.0 36 10/01/18 06:50 80 18 98 Nasal Cannula 4.0 36 10/01/18 04:11 82 10/01/18 04:00 Nasal Cannula 2.0 10/01/18 04:00 98.2 83 18 143/68 (93) 98 10/01/18 03:19 103 18 99 Nasal Cannula 4.0 36 10/01/18 02:47 79 18 97 Nasal Cannula 4.0 36 10/01/18 00:13 91 18 100 Nasal Cannula 4.0 36 10/01/18 00:00 97.9 78 14 136/72 (93) 100 10/01/18 00:00 Nasal Cannula 2.0 09/30/18 23:51 88 18 98 Nasal Cannula 4.0 36 09/30/18 23:44 78 09/30/18 21:07 79 18 99 Nasal Cannula 4.0 36 09/30/18 20:57 77 18 98 Nasal Cannula 4.0 36 09/30/18 20:56 98 Nasal Cannula 4.0 36 09/30/18 20:00 98.2 84 18 132/63 (86) 98 09/30/18 20:00 Nasal Cannula 2.0 09/30/18 19:22 83 09/30/18 16:00 98.2 86 18 137/60 (85) 97 09/30/18 16:00 Nasal Cannula 2.0 09/30/18 16:00 70 09/30/18 15:30 77 18 99 Nasal Cannula 4.0 36 09/30/18 15:18 70 18 98 Nasal Cannula 4.0 36 Height (Feet): 5 Height (Inches): 3.00 Weight (Pounds): 126 General Appearance: no acute distress HEENT: normocephalic, atraumatic, mucous membranes moist Respiratory/Chest: lungs clear, normal breath sounds, no respiratory distress, no accessory muscle use Cardiovascular: normal rate, regular rhythm, no gallop/murmur, no JVD Abdomen: normal bowel sounds, soft, non tender, no organomegaly, non distended Genitourinary: other - no taylor Extremities: no cyanosis Skin: no rash Neurologic/Psychiatric: anchor operator 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 Mild interstitial prominence. Pleural space: Small right pleural effusion, slightly worse. Improved small left pleural effusion. No pneumothorax. Heart: Unremarkable. No cardiomegaly. Mediastinum: Unremarkable. Bones/joints: Unremarkable. Tubes, lines and devices: Stable endotracheal tube. 09/18/18 - Chest x-ray - IMPRESSION: 1. Stable endotracheal tube. 2. Bibasilar lung atelectasis/airspace disease. Mild interstitial prominence. 3. Small right pleural effusion, slightly worse. Improved small left pleural effusion. Comparison: 09/15/2018 A single view chest radiograph was obtained. Findings: Endotracheal tube remains in good position. Pulmonary vascular congestion is present. Basilar atelectasis noted. Small bilateral pleural effusions are not excluded. IMPRESSION: Pulmonary vascular congestion Chest x-ray - 09/22/18 - IMPRESSION: 1. Subsegmental atelectasis versus infiltrates in bilateral lung bases, not significantly changed compared to the prior exam. 2. Possible small bilateral layering pleural effusions, also not significantly changed. 3. Mildly increased interstitial markings. This is nonspecific but may suggest mild pulmonary vascular congestion or a mild interstitial pneumonitis. Chest x-ray - 09/28/18 - Impression: Over 5 days, interim improved aeration of the lung bases with some residual atelectasis, and decreased interstitial congestion. There may be some residual pleural fluid on the left. Laboratory Tests Test 10/01/18 05:00 White Blood Count 5.8 K/UL (4.8-10.8) Red Blood Count 4.01 M/UL (4.20-5.40) L Hemoglobin 12.6 G/DL (12.0-16.0) Hematocrit 39.0 % (37.0-47.0) Mean Corpuscular Volume 97 FL (80-99) Mean Corpuscular Hemoglobin 31.5 PG (27.0-31.0) H Mean Corpuscular Hemoglobin Concent 32.4 G/DL (32.0-36.0) Red Cell Distribution Width 13.7 % (11.6-14.8) Platelet Count 370 K/UL (150-450) Mean Platelet Volume 5.8 FL (6.5-10.1) L Neutrophils (%) (Auto) 59.6 % (45.0-75.0) Lymphocytes (%) (Auto) 28.3 % (20.0-45.0) Monocytes (%) (Auto) 8.6 % (1.0-10.0) Eosinophils (%) (Auto) 2.6 % (0.0-3.0) Basophils (%) (Auto) 1.0 % (0.0-2.0) Sodium Level 140 MMOL/L (136-145) Potassium Level 4.0 MMOL/L (3.5-5.1) Chloride Level 105 MMOL/L (98-107) Carbon Dioxide Level 31 MMOL/L (21-32) Anion Gap 4 mmol/L (5-15) L Blood Urea Nitrogen 13 mg/dL (7-18) Creatinine 0.7 MG/DL (0.55-1.30) Estimat Glomerular Filtration Rate mL/min (>60) Glucose Level 224 MG/DL (74-106) H Calcium Level 9.1 MG/DL (8.5-10.1) Phosphorus Level 3.0 MG/DL (2.5-4.9) Magnesium Level 1.8 MG/DL (1.8-2.4) Total Bilirubin 0.3 MG/DL (0.2-1.0) Aspartate Amino Transf (AST/SGOT) 13 U/L (15-37) L Alanine Aminotransferase (ALT/SGPT) 12 U/L (12-78) Alkaline Phosphatase 107 U/L (46-116) Total Protein 7.2 G/DL (6.4-8.2) Albumin 2.1 G/DL (3.4-5.0) L Globulin 5.1 g/dL Albumin/Globulin Ratio 0.4 (1.0-2.7) L Current Medications Medications (Trade) Dose Ordered Sig/Wayne Route PRN Reason Start Time Stop Time Status Last Admin Dose Admin Acetaminophen (Tylenol) 650 mg Q4H PRN GT Mild Pain/Temp > 100.5 09/29/18 14:38 10/23/18 14:37 Acetylcysteine (Mucomyst) 100 mg Q4HRT HHN 09/29/18 15:00 10/21/18 18:59 10/01/18 10:56 Albuterol/ Ipratropium (Albuterol/ Ipratropium) 3 ml Q4HRT HHN 09/29/18 15:00 10/01/18 22:59 10/01/18 10:55 Artificial Tears (Akwa-Tears) 1 drop Q4H PRN BOTH EYES Dry Eyes 09/29/18 14:40 10/18/18 14:39 Ascorbic Acid (Vitamin C) 250 mg TWICE A DAY ORAL 09/29/18 18:00 10/18/18 17:59 10/01/18 08:47 Bisacodyl (Dulcolax) 10 mg DAILYPRN PRN RECTAL Constipation 09/30/18 14:38 10/14/18 14:37 Ceftriaxone Sodium 1 gm/ Dextrose 50 ml @ 100 mls/hr Q24H IVPB 09/30/18 21:00 10/03/18 20:59 09/30/18 20:11 Chlorhexidine Gluconate (Kamla-Hex 2%) 1 applic DAILY@2000 TOPIC 09/29/18 20:00 10/17/18 19:59 09/30/18 20:10 Dextrose (Dextrose 50%) 25 ml Q30M PRN IV Hypoglycemia 09/29/18 14:39 10/14/18 14:38 Dextrose (Dextrose 50%) 50 ml Q30M PRN IV Hypoglycemia 09/29/18 14:39 10/14/18 14:38 Diphenhydramine HCl (Benadryl) 25 mg Q6H PRN ORAL Itching/Pruritis 09/29/18 14:39 10/14/18 14:38 Docusate Sodium (Colace) 100 mg TID GT 09/29/18 18:00 10/25/18 08:59 10/01/18 08:47 Famotidine (Pepcid) 20 mg BID GT 09/29/18 18:00 10/28/18 17:59 10/01/18 08:47 Furosemide (Lasix) 20 mg DAILY GT 09/30/18 09:00 10/22/18 08:59 10/01/18 08:48 Heparin Sodium (Porcine) (Heparin 5000 units/ml) 5,000 units EVERY 12 HOURS SUBQ 09/29/18 21:00 10/14/18 20:59 10/01/18 08:52 Insulin Aspart (NovoLOG) Q6HR SUBQ 09/29/18 18:00 10/14/18 15:59 10/01/18 12:09 Insulin Detemir (Levemir) 12 units BEDTIME SUBQ 09/29/18 21:00 10/17/18 20:59 09/30/18 20:13 Magnesium Hydroxide (Mom) 30 ml HSPRN PRN ORAL Constipation 09/29/18 21:00 10/29/18 20:59 Metoclopramide HCl (Reglan) 5 mg EVERY 6 HOURS NG 09/29/18 18:00 10/28/18 11:59 10/01/18 12:08 Metoclopramide HCl (Reglan) 10 mg Q8H PRN IVP Nausea & Vomiting 09/29/18 14:41 10/17/18 14:40 Ondansetron HCl (Zofran) 4 mg Q6H PRN IVP Nausea & Vomiting 09/29/18 14:39 10/14/18 14:38 Vancomycin HCl (Vanco rx to dose) 1 ea DAILY PRN MISC Per rx protocol 09/30/18 13:00 10/30/18 12:59 Vancomycin HCl/ Dextrose 275 ml @ 137.5 mls/ hr Q24H IVPB 10/01/18 01:00 10/03/18 00:59 10/01/18 00:09 Milton Valladares MD Oct 01, 2018 14:11
--- NOTE | 2018-10-01 14:31 | Pulmonolgy Critical Care Note ---
Critical Care - Asmt/Plan Assessment/Plan: Pulmonary CCM Progress Note Critical Care - Asmt/Plan Problems: (1) Previous Respiratory failure (2) - s/p extubation (3) Sepsis, remains afebrile - on antibiotics per ID (4) Pneumonia (5) Electrolyte imbalance (6) Dehydration (7) Altered mental status (8) Hypernatremia (9) Respiratory failure (10) Lactic acid acidosis resolved (11) H/O: CVA (cerebrovascular accident) (12) G tube feedings (13) KEL (acute kidney injury) Respiratory: monitor respiratory rate, adjust FIO2, ABG, other - HHN's, pulmonary hygiene Cardiac: continue to monitor HR/BP Renal: keep negative Infectious Disease: check cultures, continue antibiotics per ID Gastrointestinal: enteral feeding Endocrine: monitor blood sugar, continue sliding scale insulin Hematologic: monitor H/H Neurologic: keep patient comfortable - monitor MS, consider neuro eval and EEG Prophylaxis: Protonix, Heparin Disposition: keep in ICU Time Spent (Minutes): 40 Notes Reviewed: dba manager, renal, ID, other - ERMD Discussed with: nurses, consultants, other - FC Critical Care - Objective Vital Signs Noted Status: sedated - intubated Condition: critical HEENT: atraumatic, normocephalic, other - ETT OGT weak gag Lungs: rhonchi Heart: HR/BP stable Abdomen: soft, non-tender, active bowel sounds, feeding tube Extremities: no C/C/E Micro: Microbiology Date/Time Source Procedure Growth Status 09/14/18 09:00 Rectum Received Critical Care - Subjective ROS Limited/Unobtainable: Yes Interval Events: 77 F NHR h/o dementia, CVA, GT, HTN, HL remains on ACVC, not tolerating PS Na 167 Cr 1.7 LA elevated + hemoconcentration No gag in ER + faint gag now + F no C no further hx obtainable Condition: critical IV Access: peripheral - x2 EKG Rhythm: Sinus Rhythm FI02: 60 Vent Support Breath Rate: 14 Vent Support Mode: AC Vent Tidal Volume: 500 Sputum Amount: Small PEEP: 5.0 PIP: 23 Secretions: scant thick Subjective: ARLETTE CXR: L RC inf, small L eff, ETT ET-Tube: 7.0 ET Position: 22 Labs: Laboratory Tests noted Critical Care - Objective Last 24 Hour Vital Signs Date Time Temp Pulse Resp B/P (MAP) Pulse Ox O2 Delivery O2 Flow Rate FiO2 10/01/18 12:00 Nasal Cannula 2.0 10/01/18 12:00 92 10/01/18 12:00 99.0 92 20 154/76 (102) 99 10/01/18 11:03 68 14 100 Nasal Cannula 4.0 36 10/01/18 10:55 66 14 97 Nasal Cannula 4.0 36 10/01/18 08:00 Nasal Cannula 2.0 10/01/18 08:00 98.2 86 18 156/72 (100) 98 10/01/18 08:00 80 10/01/18 06:54 99 Nasal Cannula 4.0 36 10/01/18 06:54 90 16 99 Nasal Cannula 4.0 36 10/01/18 06:50 80 18 98 Nasal Cannula 4.0 36 10/01/18 04:11 82 10/01/18 04:00 Nasal Cannula 2.0 10/01/18 04:00 98.2 83 18 143/68 (93) 98 10/01/18 03:19 103 18 99 Nasal Cannula 4.0 36 10/01/18 02:47 79 18 97 Nasal Cannula 4.0 36 10/01/18 00:13 91 18 100 Nasal Cannula 4.0 36 10/01/18 00:00 97.9 78 14 136/72 (93) 100 10/01/18 00:00 Nasal Cannula 2.0 09/30/18 23:51 88 18 98 Nasal Cannula 4.0 36 09/30/18 23:44 78 09/30/18 21:07 79 18 99 Nasal Cannula 4.0 36 09/30/18 20:57 77 18 98 Nasal Cannula 4.0 36 09/30/18 20:56 98 Nasal Cannula 4.0 36 09/30/18 20:00 98.2 84 18 132/63 (86) 98 09/30/18 20:00 Nasal Cannula 2.0 09/30/18 19:22 83 09/30/18 16:00 98.2 86 18 137/60 (85) 97 09/30/18 16:00 Nasal Cannula 2.0 09/30/18 16:00 70 09/30/18 15:30 77 18 99 Nasal Cannula 4.0 36 09/30/18 15:18 70 18 98 Nasal Cannula 4.0 36 Accucheck: 254 Critical Care - Subjective ROS Limited/Unobtainable: No FI02: 36 Vent Support Breath Rate: 14 Vent Support Mode: CPAP Vent Tidal Volume: 500 Sputum Amount: None PEEP: 5.0 PIP: 24 Tube Feeding Amount: 55 I&O: Intake and Output 09/30/18 10/01/18 19:00 07:00 Intake Total 835 ml 1735.0 ml Output Total 750 ml 550 ml Balance 85 ml 1185.0 ml Intake Free Water 175 ml 750 ml IV Total 325.0 ml Tube Feeding 660 ml 660 ml Output Urine Total 750 ml 550 ml # Bowel Movements 1 2 ET-Tube: 7.0 ET Position: 22 Marcelo Swift MD Oct 01, 2018 14:31
[2018-10-01 16:00] VITALS: BP 139/70
--- NOTE | 2018-10-01 19:13 | NUR ---
HAND-OFF: Report given to EBONY WASHINGTON, REPOSITIONED, BED BATH GIVEN,NO DISTRESS..
--- NOTE | 2018-10-01 19:14 | NUR ---
NURSE NOTES: Received patient from Martinez Ruth RN. patient is nonverbal, unable to make needs known, no s/sx of pain noted at this time. patient is on 2 L O2 via NC, no s/sx of respiratory distress noted at this time. G-tube site is patent and intact, with feeding running at prescribed rate. HOB elevated. F/C is patent and intact, draining well. skin alterations noted. OPHELIA PICC is patent and intact, running fluids at TKO. bed in lowest position and locked, siderails up X3, call light within reach. will continue to monitor.
[2018-10-01 20:00] VITALS: BP 147/63
[2018-10-01] MEDS: Dyna-Hex 2% Top Sol 2oz TOPIC SCH (20:18)
[2018-10-01] MEDS ORDERED: cefTRIAXone 1 GM in D5W 50 ML IVPB SCH (21:00)
[2018-10-01] MEDS: Levemir Flexpen SUBQ SCH (21:07)
[2018-10-02] VITALS: BP 146/70
[2018-10-02] MEDS ORDERED: Vancomycin 1.5gm/D5W Premix 275 ML IVPB SCH (01:00)
[2018-10-02 04:00] VITALS: BP 153/73
[2018-10-02 04:56] LABS: HEMATOCRIT 34.9 % (37.0-47.0); HEMOGLOBIN 11.4 G/DL (12.0-16.0); LYMPHOCYTES % (AUTO) 29.6 % (20.0-45.0); MEAN CORPUSCULAR VOLUME 96 FL (80-99); MONOCYTES % (AUTO) 7.2 % (1.0-10.0); NEUTROPHILS % (AUTO) 58.3 % (45.0-75.0); PLATELET COUNT 303 K/UL (150-450); RED BLOOD COUNT 3.62 M/UL (4.20-5.40); RED CELL DISTRIBUTION WIDTH 13.1 % (11.6-14.8); WHITE BLOOD COUNT 6.6 K/UL (4.8-10.8)
[2018-10-02 05:11] LABS: ANION GAP 6 mmol/L (5-15); BLOOD UREA NITROGEN 12 mg/dL (7-18); CALCIUM 9.3 MG/DL (8.5-10.1); CARBON DIOXIDE 30 MMOL/L (21-32); CHLORIDE 106 MMOL/L (98-107); CREATININE 0.6 MG/DL (0.55-1.30); POTASSIUM 4.2 MMOL/L (3.5-5.1); SODIUM 142 MMOL/L (136-145)
[2018-10-02] MEDS: Metoclopramide 10mg/10ml Liq NG SCH ×4 (05:22→23:46)
[2018-10-02] MEDS: NovoLOG Insulin Flexpen SUBQ SCH ×4 (05:24→23:48)
--- NOTE | 2018-10-02 07:28 | NUR ---
HAND-OFF: Report given to Michelle Briscoe RN. patient is in stable condition.
--- NOTE | 2018-10-02 07:30 | NUR ---
NURSE NOTES: Received pt from FELIX Gabriel. patient opens eyes spontaneously, unable to follow commands, nonverbal. On 2L O2 via NC. No acute distress noted. Sinus rhythm noted on cardiac tech. G-tube intact and patent, running Glucerna 1.5 at 55ml/hr. HOB kept elevated. Left upper arm PICC intact, TKO. Nunez cath intact, draining urine by gravity. Patient on P200 mattress for wound care. Bed in lowest position, locked, side rails upx3. Bed alarm on. Will continue to monitor.
[2018-10-02 08:00] VITALS: BP_SYST 159; BP_SYST 170; BP_DIAS 78; BP_DIAS 80
[2018-10-02] MEDS: Docusate 100mg tablet GT SCH ×3 (08:50→17:43)
[2018-10-02] MEDS: Ascorbic Acid 500mg tab ORAL SCH (08:52)
[2018-10-02] MEDS: Heparin 5000 units/ml inj SUBQ SCH ×2 (08:53→21:31)
--- NOTE | 2018-10-02 10:20 | GI Progress Note ---
Assessment/Plan Problems: (1) DM (diabetes mellitus) ICD Codes: E11.9 - Type 2 diabetes mellitus without complications SNOMED: 11363052 (2) Dehydration ICD Codes: E86.0 - Dehydration SNOMED: 83275837 (3) G tube feedings ICD Codes: Z93.1 - Gastrostomy status SNOMED: 702911072, 288909398, 562984063 (4) Electrolyte imbalance ICD Codes: E87.8 - Other disorders of electrolyte and fluid balance, not elsewhere classified SNOMED: 428993776 (5) Sepsis ICD Codes: A41.9 - Sepsis, unspecified organism SNOMED: 28315012 Status: unchanged Status Narrative Discussed with Dr. Brown. Assessment/Plan GTF fu labs abx per ID respiratory care fu labs supportive care The patient was seen and examined at bedside and all new and available data was reviewed in the patients chart. I agree with the above findings, impression and plan. (Patient seen earlier today. Signature stamp does not reflect patient encounter time.). - Ovi Brown MD Subjective Subjective limited Objective Last 24 Hour Vital Signs Date Time Temp Pulse Resp B/P (MAP) Pulse Ox O2 Delivery O2 Flow Rate FiO2 10/02/18 08:00 Nasal Cannula 2.0 10/02/18 08:00 74 10/02/18 08:00 98.4 72 22 159/80 (106) 99 10/02/18 06:43 99 Nasal Cannula 2.0 28 10/02/18 06:43 Nasal Cannula 2.0 28 10/02/18 06:43 Nasal Cannula 2.0 28 10/02/18 04:01 68 10/02/18 04:00 98.2 69 18 153/73 (99) 97 10/02/18 04:00 Nasal Cannula 2.0 10/02/18 03:07 Nasal Cannula 2.0 28 10/02/18 03:07 Nasal Cannula 2.0 28 10/02/18 00:00 61 10/02/18 00:00 98.2 69 20 146/70 (95) 97 10/02/18 00:00 Nasal Cannula 2.0 10/02/18 00:00 Nasal Cannula 2.0 28 10/02/18 00:00 Nasal Cannula 2.0 28 10/01/18 20:00 Nasal Cannula 2.0 10/01/18 20:00 70 18 100 Nasal Cannula 2.0 28 10/01/18 20:00 72 10/01/18 20:00 98.2 76 20 147/63 (91) 95 10/01/18 20:00 98 Nasal Cannula 2.0 28 10/01/18 19:50 67 18 97 Nasal Cannula 2.0 28 10/01/18 19:06 66 18 99 Nasal Cannula 2.0 28 10/01/18 16:00 98.4 70 20 139/70 (93) 99 10/01/18 16:00 Nasal Cannula 2.0 10/01/18 16:00 65 10/01/18 15:53 Nasal Cannula 4.0 36 10/01/18 15:53 Nasal Cannula 4.0 36 10/01/18 12:00 Nasal Cannula 2.0 10/01/18 12:00 92 10/01/18 12:00 99.0 92 20 154/76 (102) 99 10/01/18 11:03 68 14 100 Nasal Cannula 4.0 36 10/01/18 10:55 66 14 97 Nasal Cannula 4.0 36 Intake and Output 10/01/18 10/02/18 19:00 07:00 Intake Total 1410 ml 1555 ml Output Total 800 ml 600 ml Balance 610 ml 955 ml Intake Free Water 750 ml 900 ml IV Total 50 ml Tube Feeding 660 ml 605 ml Output Urine Total 800 ml 600 ml # Bowel Movements 5 Laboratory Tests Test 10/02/18 03:10 White Blood Count 6.6 K/UL (4.8-10.8) Red Blood Count 3.62 M/UL (4.20-5.40) L Hemoglobin 11.4 G/DL (12.0-16.0) L Hematocrit 34.9 % (37.0-47.0) L Mean Corpuscular Volume 96 FL (80-99) Mean Corpuscular Hemoglobin 31.4 PG (27.0-31.0) H Mean Corpuscular Hemoglobin Concent 32.5 G/DL (32.0-36.0) Red Cell Distribution Width 13.1 % (11.6-14.8) Platelet Count 303 K/UL (150-450) Mean Platelet Volume 5.5 FL (6.5-10.1) L Neutrophils (%) (Auto) 58.3 % (45.0-75.0) Lymphocytes (%) (Auto) 29.6 % (20.0-45.0) Monocytes (%) (Auto) 7.2 % (1.0-10.0) Eosinophils (%) (Auto) 4.0 % (0.0-3.0) H Basophils (%) (Auto) 1.0 % (0.0-2.0) Sodium Level 142 MMOL/L (136-145) Potassium Level 4.2 MMOL/L (3.5-5.1) Chloride Level 106 MMOL/L (98-107) Carbon Dioxide Level 30 MMOL/L (21-32) Anion Gap 6 mmol/L (5-15) Blood Urea Nitrogen 12 mg/dL (7-18) Creatinine 0.6 MG/DL (0.55-1.30) Estimat Glomerular Filtration Rate mL/min (>60) Glucose Level 209 MG/DL (74-106) H Calcium Level 9.3 MG/DL (8.5-10.1) Height (Feet): 5 Height (Inches): 3.00 Weight (Pounds): 130 General Appearance: no apparent distress, alert Cardiovascular: normal rate Respiratory/Chest: normal breath sounds, no respiratory distress Abdominal Exam: soft Valente Bethea NP Oct 02, 2018 10:20
--- NOTE | 2018-10-02 11:18 | Nephrology Progress Note ---
Assessment/Plan Problem List: (1) KEL (acute kidney injury) (2) Respiratory failure (3) Dehydration (4) Electrolyte imbalance (5) G tube feedings (6) Hypokalemia (7) CVA, old, hemiparesis (8) DM (diabetes mellitus) Plan now extubated - ( 09/27/18) antibiotics start feeding DC IV fluids IV KCl Pulm support correct lytes BS and BP check and monitor per consultants Subjective ROS Limited/Unobtainable: No Constitutional: Reports: malaise Objective Objective Last 24 Hour Vital Signs Date Time Temp Pulse Resp B/P (MAP) Pulse Ox O2 Delivery O2 Flow Rate FiO2 10/02/18 10:34 Nasal Cannula 2.0 28 10/02/18 10:34 Nasal Cannula 2.0 28 10/02/18 08:00 Nasal Cannula 2.0 10/02/18 08:00 74 10/02/18 08:00 98.4 72 22 159/80 (106) 99 10/02/18 06:43 99 Nasal Cannula 2.0 28 10/02/18 06:43 Nasal Cannula 2.0 28 10/02/18 06:43 Nasal Cannula 2.0 28 10/02/18 04:01 68 10/02/18 04:00 98.2 69 18 153/73 (99) 97 10/02/18 04:00 Nasal Cannula 2.0 10/02/18 03:07 Nasal Cannula 2.0 28 10/02/18 03:07 Nasal Cannula 2.0 28 10/02/18 00:00 61 10/02/18 00:00 98.2 69 20 146/70 (95) 97 10/02/18 00:00 Nasal Cannula 2.0 10/02/18 00:00 Nasal Cannula 2.0 28 10/02/18 00:00 Nasal Cannula 2.0 28 10/01/18 20:00 Nasal Cannula 2.0 10/01/18 20:00 70 18 100 Nasal Cannula 2.0 28 10/01/18 20:00 72 10/01/18 20:00 98.2 76 20 147/63 (91) 95 10/01/18 20:00 98 Nasal Cannula 2.0 28 10/01/18 19:50 67 18 97 Nasal Cannula 2.0 28 10/01/18 19:06 66 18 99 Nasal Cannula 2.0 28 10/01/18 16:00 98.4 70 20 139/70 (93) 99 10/01/18 16:00 Nasal Cannula 2.0 10/01/18 16:00 65 10/01/18 15:53 Nasal Cannula 4.0 36 10/01/18 15:53 Nasal Cannula 4.0 36 10/01/18 12:00 Nasal Cannula 2.0 10/01/18 12:00 92 10/01/18 12:00 99.0 92 20 154/76 (102) 99 Intake and Output 10/01/18 10/02/18 19:00 07:00 Intake Total 1410 ml 1555 ml Output Total 800 ml 600 ml Balance 610 ml 955 ml Intake Free Water 750 ml 900 ml IV Total 50 ml Tube Feeding 660 ml 605 ml Output Urine Total 800 ml 600 ml # Bowel Movements 5 Laboratory Tests 10/02/18 03:10: White Blood Count 6.6, Red Blood Count 3.62L, Hemoglobin 11.4L, Hematocrit 34.9L , Mean Corpuscular Volume 96, Mean Corpuscular Hemoglobin 31.4H, Mean Corpuscular Hemoglobin Concent 32.5, Red Cell Distribution Width 13.1, Platelet Count 303, Mean Platelet Volume 5.5L, Neutrophils (%) (Auto) 58.3, Lymphocytes ( %) (Auto) 29.6, Monocytes (%) (Auto) 7.2, Eosinophils (%) (Auto) 4.0H, Basophils (%) (Auto) 1.0, Sodium Level 142, Potassium Level 4.2, Chloride Level 106, Carbon Dioxide Level 30, Anion Gap 6, Blood Urea Nitrogen 12, Creatinine 0.6, Estimat Glomerular Filtration Rate , Glucose Level 209H, Calcium Level 9.3 Height (Feet): 5 Height (Inches): 3.00 Weight (Pounds): 130 General Appearance: no apparent distress Cardiovascular: normal rate Respiratory/Chest: decreased breath sounds Abdomen: distended Objective no change Dwayne Vernon MD Oct 02, 2018 11:18
--- NOTE | 2018-10-02 11:54 | Surgery Progress Note ---
Surgery Progress Note Subjective Additional Comments no acute events comfortable stable exam unchanged labs okay Objective Last 24 Hour Vital Signs Date Time Temp Pulse Resp B/P (MAP) Pulse Ox O2 Delivery O2 Flow Rate FiO2 10/02/18 10:34 Nasal Cannula 2.0 28 10/02/18 10:34 Nasal Cannula 2.0 28 10/02/18 08:00 Nasal Cannula 2.0 10/02/18 08:00 74 10/02/18 08:00 98.4 72 22 159/80 (106) 99 10/02/18 06:43 99 Nasal Cannula 2.0 28 10/02/18 06:43 Nasal Cannula 2.0 28 10/02/18 06:43 Nasal Cannula 2.0 28 10/02/18 04:01 68 10/02/18 04:00 98.2 69 18 153/73 (99) 97 10/02/18 04:00 Nasal Cannula 2.0 10/02/18 03:07 Nasal Cannula 2.0 28 10/02/18 03:07 Nasal Cannula 2.0 28 10/02/18 00:00 61 10/02/18 00:00 98.2 69 20 146/70 (95) 97 10/02/18 00:00 Nasal Cannula 2.0 10/02/18 00:00 Nasal Cannula 2.0 28 10/02/18 00:00 Nasal Cannula 2.0 28 10/01/18 20:00 Nasal Cannula 2.0 10/01/18 20:00 70 18 100 Nasal Cannula 2.0 28 10/01/18 20:00 72 10/01/18 20:00 98.2 76 20 147/63 (91) 95 10/01/18 20:00 98 Nasal Cannula 2.0 28 10/01/18 19:50 67 18 97 Nasal Cannula 2.0 28 10/01/18 19:06 66 18 99 Nasal Cannula 2.0 28 10/01/18 16:00 98.4 70 20 139/70 (93) 99 10/01/18 16:00 Nasal Cannula 2.0 10/01/18 16:00 65 10/01/18 15:53 Nasal Cannula 4.0 36 10/01/18 15:53 Nasal Cannula 4.0 36 10/01/18 12:00 Nasal Cannula 2.0 10/01/18 12:00 92 10/01/18 12:00 99.0 92 20 154/76 (102) 99 I&O Intake and Output 10/01/18 10/02/18 19:00 07:00 Intake Total 1410 ml 1610 ml Output Total 800 ml 600 ml Balance 610 ml 1010 ml Intake Free Water 750 ml 900 ml IV Total 50 ml Tube Feeding 660 ml 660 ml Output Urine Total 800 ml 600 ml # Bowel Movements 5 Dressing: saturated Wound: other Drains: other Cardiovascular: RSR Respiratory: decreased breath sounds Abdomen: soft, present bowel sounds, non-distended Extremities: no cyanosis Laboratory Tests Test 10/02/18 03:10 White Blood Count 6.6 K/UL (4.8-10.8) Red Blood Count 3.62 M/UL (4.20-5.40) L Hemoglobin 11.4 G/DL (12.0-16.0) L Hematocrit 34.9 % (37.0-47.0) L Mean Corpuscular Volume 96 FL (80-99) Mean Corpuscular Hemoglobin 31.4 PG (27.0-31.0) H Mean Corpuscular Hemoglobin Concent 32.5 G/DL (32.0-36.0) Red Cell Distribution Width 13.1 % (11.6-14.8) Platelet Count 303 K/UL (150-450) Mean Platelet Volume 5.5 FL (6.5-10.1) L Neutrophils (%) (Auto) 58.3 % (45.0-75.0) Lymphocytes (%) (Auto) 29.6 % (20.0-45.0) Monocytes (%) (Auto) 7.2 % (1.0-10.0) Eosinophils (%) (Auto) 4.0 % (0.0-3.0) H Basophils (%) (Auto) 1.0 % (0.0-2.0) Sodium Level 142 MMOL/L (136-145) Potassium Level 4.2 MMOL/L (3.5-5.1) Chloride Level 106 MMOL/L (98-107) Carbon Dioxide Level 30 MMOL/L (21-32) Anion Gap 6 mmol/L (5-15) Blood Urea Nitrogen 12 mg/dL (7-18) Creatinine 0.6 MG/DL (0.55-1.30) Estimat Glomerular Filtration Rate mL/min (>60) Glucose Level 209 MG/DL (74-106) H Calcium Level 9.3 MG/DL (8.5-10.1) Plan Problems: (1) Sepsis Assessment & Plan: 77-year-old female presented to [facility] in distress found to be septic with leukocytosis tachycardia and requiring ventilatory support. Patient's labs noted and significant abnormal. Lactic acidosis. Severe dehydration. IV fluids IV antibiotics as per infectious disease Trend labs US noted cont with feeds as tolearted cont with current care plan We will follow with recommendations Thank you for allowing me to participate in patient's care (2) Lactic acid acidosis (3) Upper sacral area unstageable pressure ulcer Assessment & Plan: Loose dry scab noted to L ear and easily removed. Skin is clean and intact. Full thickness sacral pressure injury with slough centrally at sacrococcygeal area with surrounding pink granulation.(L)Area of slough measures (L)1.4cm x (W)1cm.Total pressure injury measures (L)4cm x (W)5.5cm. R and L heels are soft ,pink and each heel are easily blanchable. Tx.Plan: Cleanse sacral wound with saline. Apply Therahoney.Apply Moisture Barrier Paste to periwound. Cover with Optifoam drsg. Change every 3 days and prn. Apply Cavilon Skin Barrier to both heels. Cover each heel with Opifoam drsg. Change every 7 days and prn. APM/LOU Mattress overlay. Reposition at least every 2hours or as tolerated. Off-load heels with pillow. (4) G tube feedings Assessment & Plan: DAILY ESTIMATED NEEDS: Needs based on Critical care, sepsis, wound, DM 53.6kg 25-32 kcals/kg 9072-0318 total kcals 1.25-2 g protein/kg 67-107 g total protein 25-32ml/kcal mL/kg [id number] total fluid mLs NUTRITION DIAGNOSIS: 1) Swallowing difficulty R/T dysphagia, CVA as evidenced by PEG dependent, now orally intubated. 2) Increased kcal and pro needs r/t sepsis and wound healing as evidenced by elev BG and POC (200-400's), elev WBC (15.7), febrile (Tmax 100.9), elev Na (148), sacral wound/ unstageable per MD. CURRENT TF: Glucerna 1.2 @60 hrs ENTERAL NUTRITION RECOMMENDATIONS: Glucerna 1.2 @55ml/hr x24 hrs + Prosource x1 daily to provide 1320ml, 1584 kcal, 79g + 11g pro, 1063ml free H2O - Maintain Glucerna 1.2 -> Rec to REDUCE RATE to goal of 55ml/hr - Add Prosource x1 daily to better meet est pro needs - HOB over 30 degrees - Flush per MD-> 150q6 for added 600ml free fluid per day (1063ml from TF + 600ml flushes= 1663ml free fluid per day). ------ ADDITIONAL RECOMMENDATIONS: 1) Monitor hydration status 2) Obtain an accurate calibrated bed scale wt 3) Lytes daily on TF/ replete as needed 4) Rec increase hypoglycemic agents for improved BG control 5) Sacral wound: add AYDEE BID via PEG daily + Vit C 250mg BID daily via GT (5) Respiratory failure (6) Ventilator dependence Akhil Jackson Oct 02, 2018 11:54
[2018-10-02 12:00] VITALS: BP 150/83
--- NOTE | 2018-10-02 12:00 | NUR ---
NURSE NOTES: Patient was turned and repositioned. Patient kept clean and dry. On 2L O2 via NC. No acute distress noted. VSS.
--- NOTE | 2018-10-02 12:51 | NUR ---
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 98.4 HR 72 RR 22 B/P 150/83 2L NC O2 SAT @ 98% IS: VANCO IV CEFTRIAXONE IV HEPARIN SUBC STEP DOWN STATUS
[2018-10-02] MEDS ORDERED: Milk of Magnesia 30ml Ud GT PRN ×2 (13:30→17:00)
--- NOTE | 2018-10-02 13:44 | Hematology/Onc Progress Note ---
Assessment/Plan Assessment/Plan Assessment and Recs: # Thrombocytopenia --> now with thrombocytosis - potential causes multifactorial , evaluate liver and viral etiologies to begin, also could be related to underlying medications patient has received. --> Hep panel and HIV show neg results --> US abd shows no cirrhosis or hsm --> Peripheral smear ordered to evaluate for blasts /schistocytes --> abx and other meds have been reviewed --> ok for ppx if plt >50k w/ either heparin or lovenox --> Transfuse if Plt < 20k and fever, or if Plt < 10k without fever --> trend plts --> 182k-->160-->140-->119-->140k-->200k->529->527k->555k->509k- >370->303 --> asa but not at this time --> meds reviewed and may be 2/2 vanc and amikacin but at this time ok to continue since borderline # Anemia of iron deficiency, iron completed --> Workup reviewed, consistent with AID --> No evidence of hemolysis is noted, peripheral smear has been reviewed --> Hgb goal >7. Transfuse prn. --> Iron to continue --> Medications have been reviewed --> hgb 12-->10.7-->11.3-->10.8-->11->12->12.6-->11.4 # Dysphagia and now s/p nG tube feedings --> as per gi, ng tube feedsings # Respo failure on vent until 09/27 --> off vent since 09/27 # Dehydration --> on ivfs, currently off per renal # Sepsis --> abx per id --> adjust as needed --> reviewed(whitney/vanc)--> ctx/vanc # DVT ppx with heparin sq The timing of this note does not necessarily reflect the time of the patient was seen. GREATLY APPRECIATE CONSULTATION. Subjective HEENT: Denies: no symptoms, eye pain, blurred vision, tearing, double vision, ear pain, ear discharge, nose pain, nose congestion, throat pain, throat swelling, mouth pain, mouth swelling, other Cardiovascular: Denies: no symptoms, chest pain, edema, irregular heart rate, lightheadedness, palpitations, syncope, other Respiratory: Denies: no symptoms, cough, shortness of breath, SOB with excertion, SOB at rest, sputum, wheezing, other Gastrointestinal/Abdominal: Denies: no symptoms, abdomen distended, abdominal pain, black stools, tarry stools, blood in stool, constipated, diarrhea, difficulty swallowing, nausea, poor appetite, poor fluid intake, rectal bleeding , vomiting, other Genitourinary: Denies: no symptoms, burning, discharge, frequency, flank pain, hematuria, incontinence, pain, urgency, other Neurologic/Psychiatric: Denies: no symptoms, anxiety, depressed, emotional problems, headache, numbness, paresthesia, pre-existing deficit, seizure, tingling, tremors, weakness, other Endocrine: Denies: no symptoms, excessive sweating, flushing, intolerance to cold, intolerance to heat, increased hunger, increased thirst, increased urine, unexplained weight gain, unexplained weight loss, other Allergies: Coded Allergies: No Known Allergies (Unverified , 02/04/17) Subjective 09/18: is on iron, as well as broad spectrum abx, labs reviewed 09/19: no events to report, angie Robertson rn, tfs ongoing via ng, on vent to wean protocol 09/20: remains intubated, unchanged 09/21: in icu, no major changes, no f/c, no night sweats 09/23: remains in the icu, considering extubation, no f/c noted 09/24: patient unable to be weaned, para was done, daily sbt 09/25: on abx, on vent, taylor, draining well, peg ongong tfs 09/26: gtf on hold, no fevers or chills, hgb better, weaning trial 09/27: still on vent, no major changes, no f/c, seen by pulm 09/28: now off the vent, no bleeding, remains altered 10/01: no overnight events, resting in bed, labs reviewed 10/02: no events, no bleeding, vanc/ctx, no f/c Objective Objective Current Medications Medications (Trade) Dose Ordered Sig/Wayne Route PRN Reason Start Time Stop Time Status Last Admin Dose Admin Acetaminophen (Tylenol) 650 mg Q4H PRN GT Mild Pain/Temp > 100.5 09/29/18 14:38 10/23/18 14:37 Acetylcysteine (Mucomyst) 100 mg Q4HRT HHN 09/29/18 15:00 10/21/18 18:59 10/01/18 20:31 Artificial Tears (Akwa-Tears) 1 drop Q4H PRN BOTH EYES Dry Eyes 09/29/18 14:40 10/18/18 14:39 Ascorbic Acid (Vitamin C) 250 mg TWICE A DAY GT 10/02/18 18:00 10/18/18 17:59 Bisacodyl (Dulcolax) 10 mg DAILYPRN PRN RECTAL Constipation 09/30/18 14:38 10/14/18 14:37 Ceftriaxone Sodium 1 gm/ Dextrose 50 ml @ 100 mls/hr Q24H IVPB 10/01/18 21:00 10/04/18 20:59 10/01/18 21:30 Chlorhexidine Gluconate (Kamla-Hex 2%) 1 applic DAILY@2000 TOPIC 09/29/18 20:00 10/17/18 19:59 10/01/18 20:18 Dextrose (Dextrose 50%) 25 ml Q30M PRN IV Hypoglycemia 09/29/18 14:39 10/14/18 14:38 Dextrose (Dextrose 50%) 50 ml Q30M PRN IV Hypoglycemia 09/29/18 14:39 10/14/18 14:38 Diphenhydramine HCl (Benadryl) 25 mg Q6H PRN ORAL Itching/Pruritis 09/29/18 14:39 10/14/18 14:38 Docusate Sodium (Colace) 100 mg TID GT 09/29/18 18:00 10/25/18 08:59 10/02/18 08:50 Famotidine (Pepcid) 20 mg BID GT 09/29/18 18:00 10/28/18 17:59 10/02/18 08:51 Furosemide (Lasix) 20 mg DAILY GT 09/30/18 09:00 10/22/18 08:59 10/02/18 08:50 Heparin Sodium (Porcine) (Heparin 5000 units/ml) 5,000 units EVERY 12 HOURS SUBQ 09/29/18 21:00 10/14/18 20:59 10/02/18 08:53 Insulin Aspart (NovoLOG) Q6HR SUBQ 09/29/18 18:00 10/14/18 15:59 10/02/18 12:17 Insulin Detemir (Levemir) 12 units BEDTIME SUBQ 09/29/18 21:00 10/17/18 20:59 10/01/18 21:07 Magnesium Hydroxide (Mom) 30 ml HSPRN PRN GT Constipation 10/02/18 13:30 10/29/18 20:59 Metoclopramide HCl (Reglan) 5 mg EVERY 6 HOURS NG 09/29/18 18:00 10/28/18 11:59 10/02/18 12:17 Metoclopramide HCl (Reglan) 10 mg Q8H PRN IVP Nausea & Vomiting 09/29/18 14:41 10/17/18 14:40 Ondansetron HCl (Zofran) 4 mg Q6H PRN IVP Nausea & Vomiting 09/29/18 14:39 10/14/18 14:38 Vancomycin HCl (Vanco rx to dose) 1 ea DAILY PRN MISC Per rx protocol 10/01/18 14:15 10/04/18 00:59 Vancomycin HCl/ Dextrose 275 ml @ 137.5 mls/ hr Q24H IVPB 10/02/18 01:00 10/04/18 00:59 10/02/18 01:54 Last 24 Hour Vital Signs Date Time Temp Pulse Resp B/P (MAP) Pulse Ox O2 Delivery O2 Flow Rate FiO2 10/02/18 12:00 Nasal Cannula 2.0 10/02/18 12:00 98.1 68 20 150/83 (105) 99 10/02/18 10:34 Nasal Cannula 2.0 10/02/18 10:34 Nasal Cannula 2.0 28 10/02/18 08:00 Nasal Cannula 2.0 10/02/18 08:00 74 10/02/18 08:00 98.4 72 22 159/80 (106) 99 10/02/18 06:43 99 Nasal Cannula 2.0 28 10/02/18 06:43 Nasal Cannula 2.0 28 10/02/18 06:43 Nasal Cannula 2.0 28 10/02/18 04:01 68 10/02/18 04:00 98.2 69 18 153/73 (99) 97 10/02/18 04:00 Nasal Cannula 2.0 10/02/18 03:07 Nasal Cannula 2.0 28 10/02/18 03:07 Nasal Cannula 2.0 28 10/02/18 00:00 61 10/02/18 00:00 98.2 69 20 146/70 (95) 97 10/02/18 00:00 Nasal Cannula 2.0 10/02/18 00:00 Nasal Cannula 2.0 28 10/02/18 00:00 Nasal Cannula 2.0 28 10/01/18 20:00 Nasal Cannula 2.0 10/01/18 20:00 70 18 100 Nasal Cannula 2.0 28 10/01/18 20:00 72 10/01/18 20:00 98.2 76 20 147/63 (91) 95 10/01/18 20:00 98 Nasal Cannula 2.0 28 10/01/18 19:50 67 18 97 Nasal Cannula 2.0 28 10/01/18 19:06 66 18 99 Nasal Cannula 2.0 28 10/01/18 16:00 98.4 70 20 139/70 (93) 99 10/01/18 16:00 Nasal Cannula 2.0 10/01/18 16:00 65 10/01/18 15:53 Nasal Cannula 4.0 36 10/01/18 15:53 Nasal Cannula 4.0 36 10/01/18 12:00 Nasal Cannula 2.0 10/01/18 12:00 92 10/01/18 12:00 99.0 92 20 154/76 (102) 99 10/01/18 11:03 68 14 100 Nasal Cannula 4.0 36 10/01/18 10:55 66 14 97 Nasal Cannula 4.0 36 10/01/18 08:00 Nasal Cannula 2.0 10/01/18 08:00 98.2 86 18 156/72 (100) 98 10/01/18 08:00 80 10/01/18 06:54 99 Nasal Cannula 4.0 36 10/01/18 06:54 90 16 99 Nasal Cannula 4.0 36 10/01/18 06:50 80 18 98 Nasal Cannula 4.0 36 10/01/18 04:11 82 10/01/18 04:00 Nasal Cannula 2.0 10/01/18 04:00 98.2 83 18 143/68 (93) 98 10/01/18 03:19 103 18 99 Nasal Cannula 4.0 36 10/01/18 02:47 79 18 97 Nasal Cannula 4.0 36 10/01/18 00:13 91 18 100 Nasal Cannula 4.0 36 10/01/18 00:00 97.9 78 14 136/72 (93) 100 10/01/18 00:00 Nasal Cannula 2.0 09/30/18 23:51 88 18 98 Nasal Cannula 4.0 36 09/30/18 23:44 78 09/30/18 21:07 79 18 99 Nasal Cannula 4.0 36 09/30/18 20:57 77 18 98 Nasal Cannula 4.0 36 09/30/18 20:56 98 Nasal Cannula 4.0 36 09/30/18 20:00 98.2 84 18 132/63 (86) 98 09/30/18 20:00 Nasal Cannula 2.0 09/30/18 19:22 83 09/30/18 16:00 98.2 86 18 137/60 (85) 97 09/30/18 16:00 Nasal Cannula 2.0 09/30/18 16:00 70 09/30/18 15:30 77 18 99 Nasal Cannula 4.0 36 09/30/18 15:18 70 18 98 Nasal Cannula 4.0 36 Intake and Output 10/01/18 10/02/18 19:00 07:00 Intake Total 1410 ml 1610 ml Output Total 800 ml 600 ml Balance 610 ml 1010 ml Intake Free Water 750 ml 900 ml IV Total 50 ml Tube Feeding 660 ml 660 ml Output Urine Total 800 ml 600 ml # Bowel Movements 5 Labs Test 09/30/18 03:48 10/01/18 05:00 10/02/18 03:10 White Blood Count 6.3 K/UL (4.8-10.8) 5.8 K/UL (4.8-10.8) 6.6 K/UL (4.8-10.8) Red Blood Count 3.98 M/UL (4.20-5.40) 4.01 M/UL (4.20-5.40) 3.62 M/UL (4.20-5.40) Hemoglobin 12.7 G/DL (12.0-16.0) 12.6 G/DL (12.0-16.0) 11.4 G/DL (12.0-16.0) Hematocrit 38.4 % (37.0-47.0) 39.0 % (37.0-47.0) 34.9 % (37.0-47.0) Mean Corpuscular Volume 97 FL (80-99) 97 FL (80-99) 96 FL (80-99) Mean Corpuscular Hemoglobin 32.0 PG (27.0-31.0) 31.5 PG (27.0-31.0) 31.4 PG (27.0-31.0) Mean Corpuscular Hemoglobin Concent 33.1 G/DL (32.0-36.0) 32.4 G/DL (32.0-36.0) 32.5 G/DL (32.0-36.0) Red Cell Distribution Width 13.2 % (11.6-14.8) 13.7 % (11.6-14.8) 13.1 % (11.6-14.8) Platelet Count 413 K/UL (150-450) 370 K/UL (150-450) 303 K/UL (150-450) Mean Platelet Volume 5.6 FL (6.5-10.1) 5.8 FL (6.5-10.1) 5.5 FL (6.5-10.1) Neutrophils (%) (Auto) 63.4 % (45.0-75.0) 59.6 % (45.0-75.0) 58.3 % (45.0-75.0) Lymphocytes (%) (Auto) 28.7 % (20.0-45.0) 28.3 % (20.0-45.0) 29.6 % (20.0-45.0) Monocytes (%) (Auto) 5.4 % (1.0-10.0) 8.6 % (1.0-10.0) 7.2 % (1.0-10.0) Eosinophils (%) (Auto) 1.8 % (0.0-3.0) 2.6 % (0.0-3.0) 4.0 % (0.0-3.0) Basophils (%) (Auto) 0.8 % (0.0-2.0) 1.0 % (0.0-2.0) 1.0 % (0.0-2.0) Sodium Level 142 MMOL/L (136-145) 140 MMOL/L (136-145) 142 MMOL/L (136-145) Potassium Level 3.9 MMOL/L (3.5-5.1) 4.0 MMOL/L (3.5-5.1) 4.2 MMOL/L (3.5-5.1) Chloride Level 107 MMOL/L (98-107) 105 MMOL/L (98-107) 106 MMOL/L (98-107) Carbon Dioxide Level 28 MMOL/L (21-32) 31 MMOL/L (21-32) 30 MMOL/L (21-32) Anion Gap 7 mmol/L (5-15) 4 mmol/L (5-15) 6 mmol/L (5-15) Blood Urea Nitrogen 7 mg/dL (7-18) 13 mg/dL (7-18) 12 mg/dL (7-18) Creatinine 0.6 MG/DL (0.55-1.30) 0.7 MG/DL (0.55-1.30) 0.6 MG/DL (0.55-1.30) Estimat Glomerular Filtration Rate mL/min (>60) mL/min (>60) mL/min (>60) Glucose Level 236 MG/DL (74-106) 224 MG/DL (74-106) 209 MG/DL (74-106) Calcium Level 9.4 MG/DL (8.5-10.1) 9.1 MG/DL (8.5-10.1) 9.3 MG/DL (8.5-10.1) Phosphorus Level 3.0 MG/DL (2.5-4.9) Magnesium Level 1.8 MG/DL (1.8-2.4) Total Bilirubin 0.3 MG/DL (0.2-1.0) Aspartate Amino Transf (AST/SGOT) 13 U/L (15-37) Alanine Aminotransferase (ALT/SGPT) 12 U/L (12-78) Alkaline Phosphatase 107 U/L (46-116) Total Protein 7.2 G/DL (6.4-8.2) Albumin 2.1 G/DL (3.4-5.0) Globulin 5.1 g/dL Albumin/Globulin Ratio 0.4 (1.0-2.7) Height (Feet): 5 Height (Inches): 3.00 Weight (Pounds): 130 Objective Physical Exam: Vitals: reviewed General Appearance: NAD HEENT: normocephalic, atraumatic ++ogt Chest: normal breath sounds bilaterally OFF VENT Cardiovascular: normal peripheral pulses, normal rate Abdomen: normal bowel sounds, soft, nontender ++ gtube Extremities: normal range of motion Mateo Wei MD Oct 02, 2018 13:44
--- NOTE | 2018-10-02 13:51 | Pulmonolgy Critical Care Note ---
Critical Care - Asmt/Plan Assessment/Plan: Pulmonary CCM Progress Note Critical Care - Asmt/Plan Problems: (1) Previous Respiratory failure (2) - s/p extubation, stable in SDU (3) Sepsis, remains afebrile - ID following (4) Pneumonia (5) Electrolyte imbalance (6) Dehydration (7) Altered mental status (8) Hypernatremia improved (9) Respiratory failure - stable on NC O2 (10) Lactic acid acidosis resolved (11) H/O: CVA (cerebrovascular accident) (12) G tube feedings (13) KEL (acute kidney injury) Respiratory: monitor respiratory rate, adjust FIO2, ABG, other - HHN's, pulmonary hygiene Cardiac: continue to monitor HR/BP Renal: keep negative Infectious Disease: check cultures, continue antibiotics per ID Gastrointestinal: enteral feeding Endocrine: monitor blood sugar, continue sliding scale insulin Hematologic: monitor H/H Neurologic: keep patient comfortable - monitor MS, consider neuro eval and EEG Prophylaxis: Protonix, Heparin Disposition: keep in ICU Time Spent (Minutes): 40 Notes Reviewed: gear tester, renal, ID, other - ERMD Discussed with: nurses, consultants, other - FC Critical Care - Objective Vital Signs Noted Status: sedated - intubated Condition: critical HEENT: atraumatic, normocephalic, other - ETT OGT weak gag Lungs: rhonchi Heart: HR/BP stable Abdomen: soft, non-tender, active bowel sounds, feeding tube Extremities: no C/C/E Micro: Microbiology Date/Time Source Procedure Growth Status 09/14/18 09:00 Rectum Received Critical Care - Subjective ROS Limited/Unobtainable: Yes Interval Events: 77 F NHR h/o dementia, CVA, GT, HTN, HL remains on ACVC, not tolerating PS Na 167 Cr 1.7 LA elevated + hemoconcentration No gag in ER + faint gag now + F no C no further hx obtainable Condition: critical IV Access: peripheral - x2 EKG Rhythm: Sinus Rhythm FI02: 60 Vent Support Breath Rate: 14 Vent Support Mode: AC Vent Tidal Volume: 500 Sputum Amount: Small PEEP: 5.0 PIP: 23 Secretions: scant thick Subjective: ARLETTE CXR: L RC inf, small L eff, ETT ET-Tube: 7.0 ET Position: 22 Labs: Laboratory Tests noted Critical Care - Objective Last 24 Hour Vital Signs Date Time Temp Pulse Resp B/P (MAP) Pulse Ox O2 Delivery O2 Flow Rate FiO2 10/02/18 12:00 Nasal Cannula 2.0 10/02/18 12:00 98.1 68 20 150/83 (105) 99 10/02/18 10:34 Nasal Cannula 2.0 28 10/02/18 10:34 Nasal Cannula 2.0 28 10/02/18 08:00 Nasal Cannula 2.0 10/02/18 08:00 74 10/02/18 08:00 98.4 72 22 159/80 (106) 99 10/02/18 06:43 99 Nasal Cannula 2.0 28 10/02/18 06:43 Nasal Cannula 2.0 28 10/02/18 06:43 Nasal Cannula 2.0 28 10/02/18 04:01 68 10/02/18 04:00 98.2 69 18 153/73 (99) 97 10/02/18 04:00 Nasal Cannula 2.0 10/02/18 03:07 Nasal Cannula 2.0 28 10/02/18 03:07 Nasal Cannula 2.0 28 10/02/18 00:00 61 10/02/18 00:00 98.2 69 20 146/70 (95) 97 10/02/18 00:00 Nasal Cannula 2.0 10/02/18 00:00 Nasal Cannula 2.0 28 10/02/18 00:00 Nasal Cannula 2.0 28 10/01/18 20:00 Nasal Cannula 2.0 10/01/18 20:00 70 18 100 Nasal Cannula 2.0 28 10/01/18 20:00 72 10/01/18 20:00 98.2 76 20 147/63 (91) 95 10/01/18 20:00 98 Nasal Cannula 2.0 28 10/01/18 19:50 67 18 97 Nasal Cannula 2.0 28 10/01/18 19:06 66 18 99 Nasal Cannula 2.0 28 10/01/18 16:00 98.4 70 20 139/70 (93) 99 10/01/18 16:00 Nasal Cannula 2.0 10/01/18 16:00 65 10/01/18 15:53 Nasal Cannula 4.0 36 10/01/18 15:53 Nasal Cannula 4.0 36 Accucheck: 179 Critical Care - Subjective ROS Limited/Unobtainable: No Condition: stable FI02: 28 Vent Support Breath Rate: 14 Vent Support Mode: CPAP Vent Tidal Volume: 500 Sputum Amount: None PEEP: 5.0 PIP: 24 Tube Feeding Amount: 55 I&O: Intake and Output 10/01/18 10/02/18 19:00 07:00 Intake Total 1410 ml 1610 ml Output Total 800 ml 600 ml Balance 610 ml 1010 ml Intake Free Water 750 ml 900 ml IV Total 50 ml Tube Feeding 660 ml 660 ml Output Urine Total 800 ml 600 ml # Bowel Movements 5 ET-Tube: 7.0 ET Position: 22 Marcelo Swift MD Oct 02, 2018 13:51
--- NOTE | 2018-10-02 15:16 | General Progress Note ---
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 - Nephrology follow up appreciated. 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 - R gaze preference noted. - Awake today and moves her R side only # Hypertension - Monitor and resume home medications not needed now due to hypotension. # History of dementia - Supportive care - SW to attempt to find family members # Nutrition - Restart tube feeds when approved by ICU - PEG in place # DVT and GI ppx # FULL CODE by records. - CM / SW follow up for family is needed. Resident at [facility]. time of note may not reflect time of clinical encounter. Subjective Allergies: Coded Allergies: No Known Allergies (Unverified , 02/04/17) Subjective bp Objective Last 24 Hour Vital Signs Date Time Temp Pulse Resp B/P (MAP) Pulse Ox O2 Delivery O2 Flow Rate FiO2 10/02/18 12:00 Nasal Cannula 2.0 10/02/18 12:00 98.1 68 20 150/83 (105) 99 10/02/18 11:38 64 10/02/18 10:34 Nasal Cannula 2.0 28 10/02/18 10:34 Nasal Cannula 2.0 28 10/02/18 08:00 Nasal Cannula 2.0 10/02/18 08:00 74 10/02/18 08:00 98.4 72 22 159/80 (106) 99 10/02/18 06:43 99 Nasal Cannula 2.0 28 10/02/18 06:43 Nasal Cannula 2.0 28 10/02/18 06:43 Nasal Cannula 2.0 28 10/02/18 04:01 68 10/02/18 04:00 98.2 69 18 153/73 (99) 97 10/02/18 04:00 Nasal Cannula 2.0 10/02/18 03:07 Nasal Cannula 2.0 28 10/02/18 03:07 Nasal Cannula 2.0 28 10/02/18 00:00 61 10/02/18 00:00 98.2 69 20 146/70 (95) 97 10/02/18 00:00 Nasal Cannula 2.0 10/02/18 00:00 Nasal Cannula 2.0 28 10/02/18 00:00 Nasal Cannula 2.0 28 10/01/18 20:00 Nasal Cannula 2.0 10/01/18 20:00 70 18 100 Nasal Cannula 2.0 28 10/01/18 20:00 72 10/01/18 20:00 98.2 76 20 147/63 (91) 95 10/01/18 20:00 98 Nasal Cannula 2.0 28 10/01/18 19:50 67 18 97 Nasal Cannula 2.0 28 10/01/18 19:06 66 18 99 Nasal Cannula 2.0 28 10/01/18 16:00 98.4 70 20 139/70 (93) 99 10/01/18 16:00 Nasal Cannula 2.0 10/01/18 16:00 65 10/01/18 15:53 Nasal Cannula 4.0 36 10/01/18 15:53 Nasal Cannula 4.0 36 Intake and Output 10/01/18 10/02/18 19:00 07:00 Intake Total 1410 ml 1610 ml Output Total 800 ml 600 ml Balance 610 ml 1010 ml Intake Free Water 750 ml 900 ml IV Total 50 ml Tube Feeding 660 ml 660 ml Output Urine Total 800 ml 600 ml # Bowel Movements 5 Laboratory Tests 10/02/18 03:10: White Blood Count 6.6, Red Blood Count 3.62L, Hemoglobin 11.4L, Hematocrit 34.9L , Mean Corpuscular Volume 96, Mean Corpuscular Hemoglobin 31.4H, Mean Corpuscular Hemoglobin Concent 32.5, Red Cell Distribution Width 13.1, Platelet Count 303, Mean Platelet Volume 5.5L, Neutrophils (%) (Auto) 58.3, Lymphocytes ( %) (Auto) 29.6, Monocytes (%) (Auto) 7.2, Eosinophils (%) (Auto) 4.0H, Basophils (%) (Auto) 1.0, Sodium Level 142, Potassium Level 4.2, Chloride Level 106, Carbon Dioxide Level 30, Anion Gap 6, Blood Urea Nitrogen 12, Creatinine 0.6, Estimat Glomerular Filtration Rate , Glucose Level 209H, Calcium Level 9.3 Height (Feet): 5 Height (Inches): 3.00 Weight (Pounds): 130 Objective GEN: intubated, eyes open, right side gaze preference HEENT: pupils 8mm and sluggish CV: RRR, no M, R, G, no jvd RESP: CTAB, no w/r/c ABD: normal bowel sounds, soft, non tender EXT: normal muscle tone, no tenderness NEURO: no changes, does not withdraw from pain, blinks to hand toward face, no tracking Desiree Helm DO Oct 02, 2018 15:16
[2018-10-02 16:00] VITALS: BP 151/82
--- NOTE | 2018-10-02 16:30 | NUR ---
TRANSFER TO FLOOR: Patient transferred to [facility] [place] [facility] [place]. Report given to FELIX Cunha. Belongings and medications given to primary RN. Patient's brother, Ryan, informed of transfer. Patient in stable condition.
--- NOTE | 2018-10-02 16:45 | NUR ---
NURSE NOTES: Patient is seen by Dr. Helm. To NEERU jane per . Endorsed to FELIX Cunha.
[2018-10-02] MEDS ORDERED: ACETYLCYST100 MG/1 M HHN (16:57)
[2018-10-02] MEDS ORDERED: DOXYCYCLINE MO100 MG ORAL (16:57)
[2018-10-02] MEDS ORDERED: LEVEMIR FL100 UNIT/1 SUBQ (16:57)
[2018-10-02] MEDS ORDERED: METOCLOPRAM5 MG/1 M1 IVP (16:57)
[2018-10-02] MEDS ORDERED: FAMOTIDINE20 MG GT (16:57)
[2018-10-02] MEDS ORDERED: FUROSEMIDE20 M1 GT (16:57)
[2018-10-02] MEDS ORDERED: HEPARIN SO5000 UNIT2 SUBQ (16:57)
[2018-10-02] MEDS ORDERED: DOCUPRENE100 MG GT (16:57)
[2018-10-02] MEDS ORDERED: Acetaminophen GT (16:57)
[2018-10-02] MEDS ORDERED: BENADRYL25 MG ORAL (16:57)
[2018-10-02] MEDS ORDERED: DULCOLAX10 MG RECTAL (16:57)
[2018-10-02] MEDS ORDERED: D50w IV (16:57)
[2018-10-02] MEDS ORDERED: METOCLOPRAM5 MG/5 M1 NG (16:57)
[2018-10-02] MEDS ORDERED: ASCORBIC ACID500 M4 GT (16:57)
[2018-10-02] MEDS ORDERED: ZOFRAN 4 MG4 MG/2 ML IVP (16:57)
[2018-10-02] MEDS ORDERED: HIBICLENS118 ML TOPIC (16:57)
[2018-10-02] MEDS ORDERED: KEFLEX250 MG ORAL (16:57)
[2018-10-02] MEDS ORDERED: NOVOLOG100 UNITS1 SUBQ (16:57)
[2018-10-02] MEDS ORDERED: Acetaminophen 650mg/20.3ml GT PRN (17:00)
[2018-10-02] MEDS ORDERED: Artificial Tears 1.4% Op Soln BOTH EYES PRN (17:00)
[2018-10-02] MEDS ORDERED: Metoclopramide 10mg/2ml Inj IVP PRN (17:00)
[2018-10-02] MEDS: Ascorbic Acid 500mg tab GT SCH (17:43)
--- NOTE | 2018-10-02 17:44 | NUR ---
LABORER SHA[employer] SINKING NOTES MESSAGE LEFT FOR SON BAILEE NOTIFYING HIM OF PT BEING DISCHARGED BACK TO [facility].
[2018-10-02] MEDS ORDERED: Ascorbic Acid 500mg tab GT SCH (18:00)
--- NOTE | 2018-10-02 18:11 | NUR ---
DISCHARGE PLANNING DISCHARGE ORDER NOTED Patient has been accepted to; [facility] [address] [place] [address] Bed:119-A [facility] for Nurse to Nurse report [facility] ETA for transportation: 19:30
--- NOTE | 2018-10-02 19:34 | NUR ---
NURSE NOTES: pt from [facility], vital signs stable, no co pain, MRI DONE.
--- NOTE | 2018-10-02 19:35 | NUR ---
HAND-OFF: Report given to ALLEGRA WASHINGTON.
--- NOTE | 2018-10-02 19:39 | Diagnostic Imaging Report ---
Indication: Altered mental status Technique: sagittal T1 fast spin echo, axial T1 FLAIR, axial T2 FLAIR, axial T2 FS PROPELLER, axial T2* GRE, axial diffusion weighted images. ADC and exponential ADC maps generated Comparison: 02/05/2017, also recent CT scan dated 09/14/2018 Findings: Interim development of a large area of encephalomalacia involving the right parietal, frontal, and temporal lobes, consistent with evolution to chronicity of previously described acute no cerebral artery distribution infarct. There is gyriform T1 and T2 FLAIR hyperintensity as well as susceptibility artifact on the GRE images, indicative of cortical laminar necrosis. On the diffusion-weighted images, there are focal areas at the periphery of the infarct demonstrating restricted diffusion and associated signal dropout on the ADC maps. This may indicate areas of acute reinfarction. There is a questionable subtle focus of increased diffusion signal abnormality in the left midbrain without associated ADC map abnormality. No acute hemorrhage or edema. No mass effect nor midline shift. There is generalized age-related enlargement of the ventricles and extra axial CSF spaces. In addition, there is ex vacuo dilatation of the right lateral ventricle. There is central atrophy of the right cerebral peduncle. Old encephalomalacia is again demonstrated in the left frontal lobe and in the left posterior parietal lobe, unchanged. Unusual ossification is seen in the extra-axial space on the left, also previously reported. There is minimal sphenoid sinus mucosal disease noted. There are bilateral mastoid effusions which were not present previously. The visualized orbits are unremarkable. The vascular flow voids are preserved. Impression: Since 02/05/2017, large area of encephalomalacia in the right middle cerebral artery distribution, facet with interim progression to chronicity of previously demonstrated right middle cerebral artery distribution infarct. Area of increased T1 and T2 FLAIR signal with associated susceptibility artifact on GRE images indicate areas of laminar necrosis Small areas of diffusion abnormality at the periphery of the above, suspicious for acute progression of infarct Very questionable subtle focus of fusion signal abnormality in the left midbrain, if real could indicate a small acute lacunar infarct Other areas of encephalomalacia, as described Negative for acute intracranial bleed Mastoid disease, new since previous study Minimal sphenoid sinus disease Findings of possible acute infarcts represent a discrepancy from [facility] preliminary report; discrepant findings phoned to Dr. Helm at the time of interpretation
--- NOTE | 2018-10-02 19:52 | NUR ---
NURSE NOTES: RECEIVED PATIENT RESTING IN BED, NON VERBAL. FALL AND ASPIRATION PRECAUTIONS IN PLACE: CALL LIGHT WITHIN REACH, BED IN LOW POSITION AND BED ALARM ON, HOB ELEVATED. WILL CONTINUE WITH PLAN OF CARE.
[2018-10-02 20:00] VITALS: BP 136/60
[2018-10-02] MEDS ORDERED: Dyna-Hex 2% Top Sol 2oz TOPIC SCH (20:00)
[2018-10-02] MEDS: Albuterol/Ipratropium 3ml neb HHN SCH ×2 (20:18→23:08)
[2018-10-02] MEDS ORDERED: Levemir Flexpen SUBQ SCH (21:00)
[2018-10-02] MEDS ORDERED: cefTRIAXone 1 GM in D5W 50 ML IVPB SCH (21:00)
[2018-10-02] MEDS ORDERED: Albuterol/Ipratropium 3ml neb HHN SCH (23:00)
--- NOTE | 2018-10-02 23:45 | Consultation ---
DATE OF CONSULTATION: 10/02/2018 HISTORY OF PRESENT ILLNESS: This is a 77-year-old female with history of multiple medical comorbidities including CVA, sepsis, respiratory failure, hypertension, pneumonia, history of anemia being admitted from [facility] for medical stabilization and altered mental status. The patient was agitated this morning. The patient is confused, unable to provide any history, not engaged during the evaluation. PAST PSYCHIATRIC HISTORY: Unknown. PAST MEDICAL HISTORY: As above. ALLERGIES: No known drug allergies. SUBSTANCE ABUSE HISTORY: No known history of illicit drug use or alcohol. MENTAL STATUS EXAMINATION: The patient is having waxing and waning consciousness, disoriented. Mood is anxious. Affect is flat. Thought process, there is a paucity of thought content. Thought content, no suicidal or homicidal ideation. ASSESSMENT: [place] I Metabolic encephalopathy. [place] II Deferred. [place] III As above. [place] IV Low. [place] V 20 PLAN: 1. The patient will be started on Seroquel as needed. 2. The patient lacks capacity to make decision. Kendal Norris M.D. DR: Dulce Maria JOB#: [id number] CC: CHRIS
[2018-10-03] VITALS: BP 166/83
[2018-10-03] MEDS ORDERED: Vancomycin 1.5gm Premix IVPB SCH (01:00)
[2018-10-03] MEDS ORDERED: Vancomycin 1.5gm/D5W Premix 275 ML IVPB SCH (01:00)
[2018-10-03] MEDS: Albuterol/Ipratropium 3ml neb HHN SCH ×3 (03:03→11:15)
[2018-10-03 04:00] VITALS: BP 140/55
--- NOTE | 2018-10-03 04:02 | NUR ---
NURSE NOTES: F/C DISCONTINUED ORDERED. PATIENT TOLERATED PROCEDURE WELL. WILL CONTINUE TO MONITOR PATIENT.
[2018-10-03] MEDS: Metoclopramide 10mg/10ml Liq NG SCH ×2 (05:28→13:16)
[2018-10-03] MEDS: NovoLOG Insulin Flexpen SUBQ SCH ×2 (05:29→13:13)
[2018-10-03 06:45] LABS: ANION GAP 4 mmol/L (5-15); BLOOD UREA NITROGEN 15 mg/dL (7-18); CALCIUM 9.2 MG/DL (8.5-10.1); CARBON DIOXIDE 32 MMOL/L (21-32); CHLORIDE 103 MMOL/L (98-107); CREATININE 0.6 MG/DL (0.55-1.30); POTASSIUM 4.1 MMOL/L (3.5-5.1); SODIUM 139 MMOL/L (136-145)
[2018-10-03 06:51] LABS: BASOPHILS % (AUTO) 0.8 % (0.0-2.0); EOSINOPHILS % (AUTO) 2.5 % (0.0-3.0); HEMATOCRIT 34.6 % (37.0-47.0); HEMOGLOBIN 11.3 G/DL (12.0-16.0); LYMPHOCYTES % (AUTO) 23.9 % (20.0-45.0); MEAN CORPUSCULAR VOLUME 96 FL (80-99); MONOCYTES % (AUTO) 7.4 % (1.0-10.0); NEUTROPHILS % (AUTO) 65.4 % (45.0-75.0); PLATELET COUNT 272 K/UL (150-450); RED CELL DISTRIBUTION WIDTH 13.3 % (11.6-14.8); WHITE BLOOD COUNT 7.2 K/UL (4.8-10.8)
--- NOTE | 2018-10-03 07:30 | NUR ---
NURSE NOTES: Report received from FELIX Arboleda. Patient AOx1. IN 2L NC. Non Verbal. No signs and symptoms of breathing difficulty noted. Picc line in TKO, site intact. R hand edema. Bed on lowest position, side rails upx2, brakes engaged, alarm on. Call light within easy reach.
--- NOTE | 2018-10-03 07:32 | NUR ---
HAND-OFF: Report given to Luh MIRZA RN. PATIENT ASLEEP, NO SIGNS OF DISTRESS NOTED.
[2018-10-03 08:00] VITALS: BP 128/65
--- NOTE | 2018-10-03 08:17 | Hematology/Onc Progress Note ---
Assessment/Plan Assessment/Plan Assessment and Recs: # Thrombocytopenia --> now with thrombocytosis - potential causes multifactorial , evaluate liver and viral etiologies to begin, also could be related to underlying medications patient has received. --> Hep panel and HIV show neg results --> US abd shows no cirrhosis or hsm --> Peripheral smear ordered to evaluate for blasts /schistocytes --> abx and other meds have been reviewed --> ok for ppx if plt >50k w/ either heparin or lovenox --> Transfuse if Plt < 20k and fever, or if Plt < 10k without fever --> trend plts --> 182k-->160-->140-->119-->140k-->200k->529->527k->555k->509k- >370->303-->272 --> asa but not at this time --> meds reviewed and may be 2/2 vanc and amikacin but at this time ok to continue since borderline # Anemia of iron deficiency, iron completed --> Workup reviewed, consistent with AID --> No evidence of hemolysis is noted, peripheral smear has been reviewed --> Hgb goal >7. Transfuse prn. --> Iron to continue --> Medications have been reviewed --> hgb 12-->10.7-->11.3-->10.8-->11->12->12.6-->11.4-->11.3 # Dysphagia and now s/p nG tube feedings --> as per gi, ng tube feedsings # Respo failure on vent until 09/27 --> off vent since 09/27 # Dehydration --> on ivfs, currently off per renal # Sepsis --> abx per id --> adjust as needed --> reviewed(whitney/vanc)--> ctx/vanc # DVT ppx with heparin sq The timing of this note does not necessarily reflect the time of the patient was seen. GREATLY APPRECIATE CONSULTATION. Subjective Allergies: Coded Allergies: No Known Allergies (Unverified , 02/04/17) Subjective 09/18: is on iron, as well as broad spectrum abx, labs reviewed 09/19: no events to report, angie Robertson rn, tfs ongoing via ng, on vent to wean protocol 09/20: remains intubated, unchanged 09/21: in icu, no major changes, no f/c, no night sweats 09/23: remains in the icu, considering extubation, no f/c noted 09/24: patient unable to be weaned, para was done, daily sbt 09/25: on abx, on vent, taylor, draining well, peg ongong tfs 09/26: gtf on hold, no fevers or chills, hgb better, weaning trial 09/27: still on vent, no major changes, no f/c, seen by pulm 09/28: now off the vent, no bleeding, remains altered 10/01: no overnight events, resting in bed, labs reviewed 10/02: no events, no bleeding, vanc/ctx, no f/c 10/03: no signs of distress, denies pain, f/c discontinued, dc planning Objective Objective Current Medications Medications (Trade) Dose Ordered Sig/Wayne Route PRN Reason Start Time Stop Time Status Last Admin Dose Admin Acetaminophen (Tylenol) 650 mg Q4H PRN GT Mild Pain/Temp > 100.5 10/02/18 17:00 10/23/18 16:59 Acetylcysteine (Mucomyst) 100 mg Q4HRT N 10/02/18 19:00 10/21/18 18:59 10/03/18 07:42 Albuterol/ Ipratropium (Albuterol/ Ipratropium) 3 ml Q4HRT N 10/02/18 20:15 10/07/18 22:59 10/03/18 07:42 Amlodipine Besylate (Norvasc) 5 mg DAILY GT 10/03/18 09:00 11/01/18 15:29 Artificial Tears (Akwa-Tears) 1 drop Q4H PRN BOTH EYES Dry Eyes 10/02/18 17:00 10/18/18 16:59 Ascorbic Acid (Vitamin C) 250 mg TWICE A DAY GT 10/02/18 18:00 10/18/18 17:59 10/02/18 17:43 Bisacodyl (Dulcolax) 10 mg DAILYPRN PRN RECTAL Constipation 10/02/18 17:00 11/01/18 16:59 Ceftriaxone Sodium 1 gm/ Dextrose 50 ml @ 100 mls/hr Q24H IVPB 10/02/18 21:00 10/04/18 20:59 10/02/18 21:32 Chlorhexidine Gluconate (Kamla-Hex 2%) 1 applic DAILY@1999 TOPIC 10/02/18 20:00 10/17/18 19:59 10/02/18 21:26 Dextrose (Dextrose 50%) 25 ml Q30M PRN IV Hypoglycemia 10/02/18 16:45 10/14/18 14:38 Dextrose (Dextrose 50%) 50 ml Q30M PRN IV Hypoglycemia 10/02/18 16:45 10/14/18 14:38 Diphenhydramine HCl (Benadryl) 25 mg Q6H PRN ORAL Itching/Pruritis 10/02/18 17:00 10/14/18 16:59 Docusate Sodium (Colace) 100 mg TID GT 10/02/18 18:00 10/25/18 08:59 Famotidine (Pepcid) 20 mg BID GT 10/02/18 18:00 10/28/18 17:59 10/02/18 17:43 Furosemide (Lasix) 20 mg DAILY GT 10/03/18 09:00 10/22/18 08:59 Heparin Sodium (Porcine) (Heparin 5000 units/ml) 5,000 units EVERY 12 HOURS SUBQ 10/02/18 21:00 10/14/18 20:59 10/02/18 21:31 Insulin Aspart (NovoLOG) Q6HR SUBQ 10/02/18 18:00 10/14/18 15:59 10/03/18 05:29 Insulin Detemir (Levemir) 12 units BEDTIME SUBQ 10/02/18 21:00 10/17/18 20:59 10/02/18 21:31 Magnesium Hydroxide (Mom) 30 ml HSPRN PRN GT Constipation 10/02/18 17:00 11/01/18 16:59 Metoclopramide HCl (Reglan) 5 mg EVERY 6 HOURS NG 10/02/18 18:00 10/28/18 11:59 10/03/18 05:28 Metoclopramide HCl (Reglan) 10 mg Q8H PRN IVP Nausea & Vomiting 10/02/18 17:00 10/17/18 16:59 Ondansetron HCl (Zofran) 4 mg Q6H PRN IVP Nausea & Vomiting 10/02/18 17:00 10/14/18 16:59 Quetiapine Fumarate (SEROquel) 12.5 mg Q4H PRN ORAL agitation 10/02/18 22:45 11/01/18 22:44 Vancomycin HCl (Vanco rx to dose) 1 ea DAILY PRN MISC Per rx protocol 10/03/18 09:00 10/04/18 00:59 Vancomycin HCl/ Dextrose 275 ml @ 137.5 mls/ hr Q24H IVPB 10/03/18 01:00 10/08/18 00:59 10/03/18 00:20 Last 24 Hour Vital Signs Date Time Temp Pulse Resp B/P (MAP) Pulse Ox O2 Delivery O2 Flow Rate FiO2 10/03/18 07:42 99 Nasal Cannula 2.0 28 10/03/18 07:42 67 18 99 Nasal Cannula 2.0 28 10/03/18 04:00 99.2 80 16 140/55 (83) 97 10/03/18 04:00 72 10/03/18 03:14 62 20 99 Nasal Cannula 2.0 28 10/03/18 03:03 60 18 98 Nasal Cannula 2.0 28 10/03/18 00:00 97.9 90 18 166/83 (110) 97 10/03/18 00:00 87 10/02/18 23:22 71 20 99 Nasal Cannula 2.0 28 10/02/18 23:08 79 20 98 Nasal Cannula 2.0 28 10/02/18 21:00 Nasal Cannula 2.0 10/02/18 20:31 63 20 98 Nasal Cannula 2.0 28 10/02/18 20:18 66 20 97 Nasal Cannula 2.0 28 10/02/18 20:00 73 10/02/18 20:00 98.5 70 16 136/60 (85) 99 10/02/18 19:45 Nasal Cannula 2.0 28 10/02/18 19:45 Nasal Cannula 2.0 28 10/02/18 19:45 98 Nasal Cannula 2.0 28 10/02/18 16:08 77 151/82 10/02/18 16:00 98.1 77 22 151/82 (105) 98 10/02/18 16:00 Nasal Cannula 2.0 8/20/19 15:24 Nasal Cannula 2.0 28 10/02/18 15:24 Nasal Cannula 2.0 28 10/02/18 15:10 79 10/02/18 12:00 Nasal Cannula 2.0 10/02/18 12:00 98.1 68 20 150/83 (105) 99 10/02/18 11:38 64 10/02/18 10:34 Nasal Cannula 2.0 28 10/02/18 10:34 Nasal Cannula 2.0 28 10/02/18 08:00 Nasal Cannula 2.0 10/02/18 08:00 74 10/02/18 08:00 98.4 72 22 159/80 (106) 99 10/02/18 06:43 99 Nasal Cannula 2.0 28 10/02/18 06:43 Nasal Cannula 2.0 28 10/02/18 06:43 Nasal Cannula 2.0 28 10/02/18 04:01 68 10/02/18 04:00 98.2 69 18 153/73 (99) 97 10/02/18 04:00 Nasal Cannula 2.0 10/02/18 03:07 Nasal Cannula 2.0 28 10/02/18 03:07 Nasal Cannula 2.0 28 10/02/18 00:00 61 10/02/18 00:00 98.2 69 20 146/70 (95) 97 10/02/18 00:00 Nasal Cannula 2.0 10/02/18 00:00 Nasal Cannula 2.0 28 10/02/18 00:00 Nasal Cannula 2.0 28 10/01/18 20:00 Nasal Cannula 2.0 10/01/18 20:00 70 18 100 Nasal Cannula 2.0 28 10/01/18 20:00 72 10/01/18 20:00 98.2 76 20 147/63 (91) 95 10/01/18 20:00 98 Nasal Cannula 2.0 28 10/01/18 19:50 67 18 97 Nasal Cannula 2.0 28 10/01/18 19:06 66 18 99 Nasal Cannula 2.0 28 10/01/18 16:00 98.4 70 20 139/70 (93) 99 10/01/18 16:00 Nasal Cannula 2.0 10/01/18 16:00 65 10/01/18 15:53 Nasal Cannula 4.0 36 10/01/18 15:53 Nasal Cannula 4.0 36 10/01/18 12:00 Nasal Cannula 2.0 10/01/18 12:00 92 10/01/18 12:00 99.0 92 20 154/76 (102) 99 10/01/18 11:03 68 14 100 Nasal Cannula 4.0 36 10/01/18 10:55 66 14 97 Nasal Cannula 4.0 36 Intake and Output 10/02/18 10/03/18 18:59 06:59 Intake Total 1060 ml 1295.0 ml Output Total 1200 ml 1003 ml Balance -140 ml 292.0 ml Intake Free Water 400 ml 310 ml IV Total 325.0 ml Tube Feeding 660 ml 660 ml Output Urine Total 1200 ml 1000 ml Chest Tube Drainage Total 3 ml # Bowel Movements 1 Labs Test 10/01/18 05:00 10/02/18 03:10 10/03/18 04:30 White Blood Count 5.8 K/UL (4.8-10.8) 6.6 K/UL (4.8-10.8) 7.2 K/UL (4.8-10.8) Red Blood Count 4.01 M/UL (4.20-5.40) 3.62 M/UL (4.20-5.40) 3.60 M/UL (4.20-5.40) Hemoglobin 12.6 G/DL (12.0-16.0) 11.4 G/DL (12.0-16.0) 11.3 G/DL (12.0-16.0) Hematocrit 39.0 % (37.0-47.0) 34.9 % (37.0-47.0) 34.6 % (37.0-47.0) Mean Corpuscular Volume 97 FL (80-99) 96 FL (80-99) 96 FL (80-99) Mean Corpuscular Hemoglobin 31.5 PG (27.0-31.0) 31.4 PG (27.0-31.0) 31.5 PG (27.0-31.0) Mean Corpuscular Hemoglobin Concent 32.4 G/DL (32.0-36.0) 32.5 G/DL (32.0-36.0) 32.7 G/DL (32.0-36.0) Red Cell Distribution Width 13.7 % (11.6-14.8) 13.1 % (11.6-14.8) 13.3 % (11.6-14.8) Platelet Count 370 K/UL (150-450) 303 K/UL (150-450) 272 K/UL (150-450) Mean Platelet Volume 5.8 FL (6.5-10.1) 5.5 FL (6.5-10.1) 6.3 FL (6.5-10.1) Neutrophils (%) (Auto) 59.6 % (45.0-75.0) 58.3 % (45.0-75.0) 65.4 % (45.0-75.0) Lymphocytes (%) (Auto) 28.3 % (20.0-45.0) 29.6 % (20.0-45.0) 23.9 % (20.0-45.0) Monocytes (%) (Auto) 8.6 % (1.0-10.0) 7.2 % (1.0-10.0) 7.4 % (1.0-10.0) Eosinophils (%) (Auto) 2.6 % (0.0-3.0) 4.0 % (0.0-3.0) 2.5 % (0.0-3.0) Basophils (%) (Auto) 1.0 % (0.0-2.0) 1.0 % (0.0-2.0) 0.8 % (0.0-2.0) Sodium Level 140 MMOL/L (136-145) 142 MMOL/L (136-145) 139 MMOL/L (136-145) Potassium Level 4.0 MMOL/L (3.5-5.1) 4.2 MMOL/L (3.5-5.1) 4.1 MMOL/L (3.5-5.1) Chloride Level 105 MMOL/L (98-107) 106 MMOL/L (98-107) 103 MMOL/L (98-107) Carbon Dioxide Level 31 MMOL/L (21-32) 30 MMOL/L (21-32) 32 MMOL/L (21-32) Anion Gap 4 mmol/L (5-15) 6 mmol/L (5-15) 4 mmol/L (5-15) Blood Urea Nitrogen 13 mg/dL (7-18) 12 mg/dL (7-18) 15 mg/dL (7-18) Creatinine 0.7 MG/DL (0.55-1.30) 0.6 MG/DL (0.55-1.30) 0.6 MG/DL (0.55-1.30) Estimat Glomerular Filtration Rate mL/min (>60) mL/min (>60) mL/min (>60) Glucose Level 224 MG/DL (74-106) 209 MG/DL (74-106) 246 MG/DL (74-106) Calcium Level 9.1 MG/DL (8.5-10.1) 9.3 MG/DL (8.5-10.1) 9.2 MG/DL (8.5-10.1) Phosphorus Level 3.0 MG/DL (2.5-4.9) Magnesium Level 1.8 MG/DL (1.8-2.4) Total Bilirubin 0.3 MG/DL (0.2-1.0) Aspartate Amino Transf (AST/SGOT) 13 U/L (15-37) Alanine Aminotransferase (ALT/SGPT) 12 U/L (12-78) Alkaline Phosphatase 107 U/L (46-116) Total Protein 7.2 G/DL (6.4-8.2) Albumin 2.1 G/DL (3.4-5.0) Globulin 5.1 g/dL Albumin/Globulin Ratio 0.4 (1.0-2.7) Height (Feet): 5 Height (Inches): 3.00 Weight (Pounds): 130 Objective Physical Exam: Vitals: reviewed General Appearance: NAD HEENT: normocephalic, atraumatic ++ogt Chest: normal breath sounds bilaterally OFF VENT Cardiovascular: normal peripheral pulses, normal rate Abdomen: normal bowel sounds, soft, nontender ++ gtube Extremities: normal range of motion Mateo Wei MD Oct 03, 2018 08:17
[2018-10-03] MEDS: Ascorbic Acid 500mg tab GT SCH (09:30)
[2018-10-03] MEDS: Docusate 100mg tablet GT SCH ×2 (09:30→13:00)
[2018-10-03] MEDS: Heparin 5000 units/ml inj SUBQ SCH (09:32)
--- NOTE | 2018-10-03 09:35 | Diagnostic Imaging Report ---
Indication: Cough Technique: One view of the chest Comparison: 09/27/2018 Findings: Interim removal of previously demonstrated endotracheal tube. Left arm PICC remains. There is less optimal inspiration currently, with basilar atelectatic changes. There is suggestion of slight bilateral costophrenic angle blunting, could indicate small bilateral pleural effusions. Impression: Interim extubation Suspect small bilateral pleural effusions Other findings as noted
[2018-10-03] MEDS ORDERED: LIPITOR40 MG ORAL (09:52)
--- NOTE | 2018-10-03 10:04 | GI Progress Note ---
Assessment/Plan Problems: (1) DM (diabetes mellitus) ICD Codes: E11.9 - Type 2 diabetes mellitus without complications SNOMED: 08654527 (2) Dehydration ICD Codes: E86.0 - Dehydration SNOMED: 86613386 (3) G tube feedings ICD Codes: Z93.1 - Gastrostomy status SNOMED: 068878306, 839370046, 422015583 (4) Electrolyte imbalance ICD Codes: E87.8 - Other disorders of electrolyte and fluid balance, not elsewhere classified SNOMED: 034693409 (5) Sepsis ICD Codes: A41.9 - Sepsis, unspecified organism SNOMED: 50517129 Status: stable Status Narrative Discussed with Dr. Brown. Assessment/Plan GTF fu labs abx per ID respiratory care fu labs supportive care The patient was seen and examined at bedside and all new and available data was reviewed in the patients chart. I agree with the above findings, impression and plan. (Patient seen earlier today. Signature stamp does not reflect patient encounter time.). - Ovi Brown MD Subjective Subjective limited Objective Last 24 Hour Vital Signs Date Time Temp Pulse Resp B/P (MAP) Pulse Ox O2 Delivery O2 Flow Rate FiO2 10/03/18 09:30 71 128/65 10/03/18 08:00 97.9 71 18 128/65 (86) 97 10/03/18 07:52 73 18 99 Nasal Cannula 2.0 28 10/03/18 07:42 99 Nasal Cannula 2.0 28 10/03/18 07:42 67 18 99 Nasal Cannula 2.0 28 10/03/18 04:00 99.2 80 16 140/55 (83) 97 10/03/18 04:00 72 10/03/18 03:14 62 20 99 Nasal Cannula 2.0 28 10/03/18 03:03 60 18 98 Nasal Cannula 2.0 28 10/03/18 00:00 97.9 90 18 166/83 (110) 97 10/03/18 00:00 87 10/02/18 23:22 71 20 99 Nasal Cannula 2.0 28 10/02/18 23:08 79 20 98 Nasal Cannula 2.0 28 10/02/18 21:00 Nasal Cannula 2.0 10/02/18 20:31 63 20 98 Nasal Cannula 2.0 28 10/02/18 20:18 66 20 97 Nasal Cannula 2.0 28 10/02/18 20:00 73 10/02/18 20:00 98.5 70 16 136/60 (85) 99 10/02/18 19:45 Nasal Cannula 2.0 28 10/02/18 19:45 Nasal Cannula 2.0 28 10/02/18 19:45 98 Nasal Cannula 2.0 28 10/02/18 16:08 77 151/82 10/02/18 16:00 98.1 77 22 151/82 (105) 98 10/02/18 16:00 Nasal Cannula 2.0 10/02/18 15:24 Nasal Cannula 2.0 28 10/02/18 15:24 Nasal Cannula 2.0 28 10/02/18 15:10 79 10/02/18 12:00 Nasal Cannula 2.0 10/02/18 12:00 98.1 68 20 150/83 (105) 99 10/02/18 11:38 64 10/02/18 10:34 Nasal Cannula 2.0 28 10/02/18 10:34 Nasal Cannula 2.0 28 Intake and Output 10/02/18 10/03/18 19:00 07:00 Intake Total 1060 ml 1295.0 ml Output Total 1200 ml 1003 ml Balance -140 ml 292.0 ml Intake Free Water 400 ml 310 ml IV Total 325.0 ml Tube Feeding 660 ml 660 ml Output Urine Total 1200 ml 1000 ml Chest Tube Drainage Total 3 ml # Bowel Movements 1 Laboratory Tests Test 10/03/18 04:30 White Blood Count 7.2 K/UL (4.8-10.8) Red Blood Count 3.60 M/UL (4.20-5.40) L Hemoglobin 11.3 G/DL (12.0-16.0) L Hematocrit 34.6 % (37.0-47.0) L Mean Corpuscular Volume 96 FL (80-99) Mean Corpuscular Hemoglobin 31.5 PG (27.0-31.0) H Mean Corpuscular Hemoglobin Concent 32.7 G/DL (32.0-36.0) Red Cell Distribution Width 13.3 % (11.6-14.8) Platelet Count 272 K/UL (150-450) Mean Platelet Volume 6.3 FL (6.5-10.1) L Neutrophils (%) (Auto) 65.4 % (45.0-75.0) Lymphocytes (%) (Auto) 23.9 % (20.0-45.0) Monocytes (%) (Auto) 7.4 % (1.0-10.0) Eosinophils (%) (Auto) 2.5 % (0.0-3.0) Basophils (%) (Auto) 0.8 % (0.0-2.0) Sodium Level 139 MMOL/L (136-145) Potassium Level 4.1 MMOL/L (3.5-5.1) Chloride Level 103 MMOL/L (98-107) Carbon Dioxide Level 32 MMOL/L (21-32) Anion Gap 4 mmol/L (5-15) L Blood Urea Nitrogen 15 mg/dL (7-18) Creatinine 0.6 MG/DL (0.55-1.30) Estimat Glomerular Filtration Rate mL/min (>60) Glucose Level 246 MG/DL (74-106) H Calcium Level 9.2 MG/DL (8.5-10.1) Height (Feet): 5 Height (Inches): 3.00 Weight (Pounds): 130 General Appearance: no apparent distress Cardiovascular: normal rate Respiratory/Chest: normal breath sounds, no respiratory distress Abdominal Exam: normal bowel sounds, non tender, soft Extremities: non-tender Valente Bethea NP Oct 03, 2018 10:04
--- NOTE | 2018-10-03 10:17 | NUR ---
DISCHARGE DISPOSITION: PLEASE READ PATIENT TO BE DISCHARGED TO [facility] [address] T: [phone]>> call for report [facility] ETA 1215 [facility] PER NOTES MESSAGE WAS PREVIOUSLY LEFT FOR SON NOTIFYING HIM OF DCP.
--- NOTE | 2018-10-03 10:20 | NUR ---
NURSE NOTES: Informed Patient's next of kin (Cristela Davis) regarding Pt.'s transfer to SNF. Family voiced concern. Communicated with Nursing room service supervisor Radhames Montoya as well as primary MD.
--- NOTE | 2018-10-03 11:04 | Nephrology Progress Note ---
Assessment/Plan Problem List: (1) KEL (acute kidney injury) (2) Respiratory failure (3) Dehydration (4) Electrolyte imbalance (5) G tube feedings (6) Hypokalemia (7) CVA, old, hemiparesis (8) DM (diabetes mellitus) Plan now extubated - ( 09/27/18) antibiotics start feeding DC IV fluids IV KCl Pulm support correct lytes BS and BP check and monitor per consultants Subjective ROS Limited/Unobtainable: No Objective Objective Last 24 Hour Vital Signs Date Time Temp Pulse Resp B/P (MAP) Pulse Ox O2 Delivery O2 Flow Rate FiO2 10/03/18 09:30 71 128/65 10/03/18 08:00 78 10/03/18 08:00 97.9 71 18 128/65 (86) 97 10/03/18 07:52 73 18 99 Nasal Cannula 2.0 28 10/03/18 07:42 99 Nasal Cannula 2.0 28 10/03/18 07:42 67 18 99 Nasal Cannula 2.0 28 10/03/18 04:00 99.2 80 16 140/55 (83) 97 10/03/18 04:00 72 10/03/18 03:14 62 20 99 Nasal Cannula 2.0 28 10/03/18 03:03 60 18 98 Nasal Cannula 2.0 28 10/03/18 00:00 97.9 90 18 166/83 (110) 97 10/03/18 00:00 87 10/02/18 23:22 71 20 99 Nasal Cannula 2.0 28 10/02/18 23:08 79 20 98 Nasal Cannula 2.0 28 10/02/18 21:00 Nasal Cannula 2.0 10/02/18 20:31 63 20 98 Nasal Cannula 2.0 28 10/02/18 20:18 66 20 97 Nasal Cannula 2.0 28 10/02/18 20:00 73 10/02/18 20:00 98.5 70 16 136/60 (85) 99 10/02/18 19:45 Nasal Cannula 2.0 28 10/02/18 19:45 Nasal Cannula 2.0 28 10/02/18 19:45 98 Nasal Cannula 2.0 28 10/02/18 16:08 77 151/82 10/02/18 16:00 98.1 77 22 151/82 (105) 98 10/02/18 16:00 Nasal Cannula 2.0 10/02/18 15:24 Nasal Cannula 2.0 28 10/02/18 15:24 Nasal Cannula 2.0 28 10/02/18 15:10 79 10/02/18 12:00 Nasal Cannula 2.0 10/02/18 12:00 98.1 68 20 150/83 (105) 99 10/02/18 11:38 64 Intake and Output 10/02/18 10/03/18 19:00 07:00 Intake Total 1060 ml 1295.0 ml Output Total 1200 ml 1003 ml Balance -140 ml 292.0 ml Intake Free Water 400 ml 310 ml IV Total 325.0 ml Tube Feeding 660 ml 660 ml Output Urine Total 1200 ml 1000 ml Chest Tube Drainage Total 3 ml # Bowel Movements 1 Laboratory Tests 10/03/18 04:30: White Blood Count 7.2, Red Blood Count 3.60L, Hemoglobin 11.3L, Hematocrit 34.6L , Mean Corpuscular Volume 96, Mean Corpuscular Hemoglobin 31.5H, Mean Corpuscular Hemoglobin Concent 32.7, Red Cell Distribution Width 13.3, Platelet Count 272, Mean Platelet Volume 6.3L, Neutrophils (%) (Auto) 65.4, Lymphocytes ( %) (Auto) 23.9, Monocytes (%) (Auto) 7.4, Eosinophils (%) (Auto) 2.5, Basophils (%) (Auto) 0.8, Sodium Level 139, Potassium Level 4.1, Chloride Level 103, Carbon Dioxide Level 32, Anion Gap 4L, Blood Urea Nitrogen 15, Creatinine 0.6, Estimat Glomerular Filtration Rate , Glucose Level 246H, Calcium Level 9.2 Height (Feet): 5 Height (Inches): 3.00 Weight (Pounds): 130 General Appearance: no apparent distress, lethargic Objective no change Dwayne Vernon MD Oct 03, 2018 11:04
[2018-10-03 12:00] VITALS: BP 125/66
--- NOTE | 2018-10-03 12:15 | NUR ---
NURSE NOTES: Report given to Lisa at [facility]. Anticipated ambulance warehouse order picker time 1245.
--- NOTE | 2018-10-03 12:20 | NUR ---
NURSE NOTES: DC process communicated with Pt. certified registered locksmith removed. Pt. cleaned and changed gown. VS 98.1, RR18, P78, BP 121/72, No signs or symptoms of pain noted. Picture of sacral wound taken.
--- NOTE | 2018-10-03 13:00 | NUR ---
NURSE NOTES: Per Radhames Rogers Mgt, Lindsay PEREZ Pt. OK to be discharged.
--- NOTE | 2018-10-03 13:23 | Infectious Diseases Prog Note ---
Assessment/Plan Assessment/Plan ASSESSMENT AND PLAN: 1. 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 Helm and RN about discharge abx 2. felecia care 3. Skin care protocol. 4. History of CVA and TIA, and aspiration risk. 5. Dementia. 6. Hypertension. 7. Blood pressure treatment per primary. 8. Acute kidney injury. 9. Weakness. 10. Hemiplegia. 11. Dysphagia, G-tube. 12. Encephalopathy. 13. No known drug allergies. 14. Social history is negative. 15. Family history is noncontributory. 16. MAR was noted. 17. Case discussed with RN. 18. Continue treatment per primary consultants. 19. Notes and records were noted. Orders were entered. 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, vre colonization Subjective Constitutional: Denies: fever HEENT: Denies: congestion Respiratory: Denies: shortness of breath Cardiovascular: Denies: chest pain Gastrointestinal/Abdominal: Denies: nausea, vomiting, diarrhea Neurologic: Denies: headache Psychiatric: Denies: depression Skin: Denies: rash Hematologic: Denies: bleeding Musculoskeletal: Denies: pain Allergies: Coded Allergies: No Known Allergies (Unverified , 02/04/17) Objective Vital Signs Last 24 Hour Vital Signs Date Time Temp Pulse Resp B/P (MAP) Pulse Ox O2 Delivery O2 Flow Rate FiO2 10/03/18 12:00 98.1 75 20 125/66 (85) 98 10/03/18 11:16 78 18 96 Nasal Cannula 2.0 28 10/03/18 09:30 71 128/65 10/03/18 09:00 Nasal Cannula 2.0 10/03/18 08:00 78 10/03/18 08:00 97.9 71 18 128/65 (86) 97 10/03/18 07:52 73 18 99 Nasal Cannula 2.0 28 10/03/18 07:42 99 Nasal Cannula 2.0 28 10/03/18 07:42 67 18 99 Nasal Cannula 2.0 28 10/03/18 04:00 99.2 80 16 140/55 (83) 97 10/03/18 04:00 72 10/03/18 03:14 62 20 99 Nasal Cannula 2.0 10/03/18 03:03 60 18 98 Nasal Cannula 2.0 28 10/03/18 00:00 97.9 90 18 166/83 (110) 97 10/03/18 00:00 87 10/02/18 23:22 71 20 99 Nasal Cannula 2.0 10/02/18 23:08 79 20 98 Nasal Cannula 2.0 28 10/02/18 21:00 Nasal Cannula 2.0 10/02/18 20:31 63 20 98 Nasal Cannula 2.0 28 10/02/18 20:18 66 20 97 Nasal Cannula 2.0 10/02/18 20:00 73 10/02/18 20:00 98.5 70 16 136/60 (85) 99 10/02/18 19:45 Nasal Cannula 2.0 10/02/18 19:45 Nasal Cannula 2.0 28 10/02/18 19:45 98 Nasal Cannula 2.0 28 10/02/18 16:08 77 151/82 10/02/18 16:00 98.1 77 22 151/82 (105) 98 10/02/18 16:00 Nasal Cannula 2.0 10/02/18 15:24 Nasal Cannula 2.0 10/02/18 15:24 Nasal Cannula 2.0 10/02/18 15:10 79 Height (Feet): 5 Height (Inches): 3.00 Weight (Pounds): 130 General Appearance: no acute distress HEENT: normocephalic, atraumatic, anicteric, mucous membranes moist Respiratory/Chest: lungs clear, normal breath sounds, no respiratory distress, no accessory muscle use Cardiovascular: normal rate, regular rhythm, no gallop/murmur, no JVD Abdomen: normal bowel sounds, soft, non tender, no organomegaly, non distended Genitourinary: other - no taylor Extremities: no cyanosis Skin: no rash Neurologic/Psychiatric: senior partner 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 Mild interstitial prominence. Pleural space: Small right pleural effusion, slightly worse. Improved small left pleural effusion. No pneumothorax. Heart: Unremarkable. No cardiomegaly. Mediastinum: Unremarkable. Bones/joints: Unremarkable. Tubes, lines and devices: Stable endotracheal tube. 09/18/18 - Chest x-ray - IMPRESSION: 1. Stable endotracheal tube. 2. Bibasilar lung atelectasis/airspace disease. Mild interstitial prominence. 3. Small right pleural effusion, slightly worse. Improved small left pleural effusion. Comparison: 09/15/2018 A single view chest radiograph was obtained. Findings: Endotracheal tube remains in good position. Pulmonary vascular congestion is present. Basilar atelectasis noted. Small bilateral pleural effusions are not excluded. IMPRESSION: Pulmonary vascular congestion Chest x-ray - 09/22/18 - IMPRESSION: 1. Subsegmental atelectasis versus infiltrates in bilateral lung bases, not significantly changed compared to the prior exam. 2. Possible small bilateral layering pleural effusions, also not significantly changed. 3. Mildly increased interstitial markings. This is nonspecific but may suggest mild pulmonary vascular congestion or a mild interstitial pneumonitis. Chest x-ray - 09/28/18 - Impression: Over 5 days, interim improved aeration of the lung bases with some residual atelectasis, and decreased interstitial congestion. There may be some residual pleural fluid on the left. 10/03/18 - chest x-ray - no change, report reviewed Microbiology Date/Time Source Procedure Growth Status 09/21/18 19:00 Blood Blood Culture - Final NO GROWTH AFTER 5 DAYS Complete 09/21/18 23:40 Sputum Gram Stain - Final Complete 09/21/18 23:40 Sputum Culture - Final Klebsiella Ornithinolytica Staphylococcus Aureus - Mrsa Usual Respiratory Charmaine Complete 09/16/18 16:15 Stool Clostridium difficile Toxin Assay - Final Complete 09/22/18 07:20 Urine,Clean Catch Urine Culture - Final Nandini Glabrata Complete 09/14/18 09:00 Rectum VRE Culture - Final Enterococcus Faecium - Vre Complete Laboratory Tests Test 10/03/18 04:30 White Blood Count 7.2 K/UL (4.8-10.8) Red Blood Count 3.60 M/UL (4.20-5.40) L Hemoglobin 11.3 G/DL (12.0-16.0) L Hematocrit 34.6 % (37.0-47.0) L Mean Corpuscular Volume 96 FL (80-99) Mean Corpuscular Hemoglobin 31.5 PG (27.0-31.0) H Mean Corpuscular Hemoglobin Concent 32.7 G/DL (32.0-36.0) Red Cell Distribution Width 13.3 % (11.6-14.8) Platelet Count 272 K/UL (150-450) Mean Platelet Volume 6.3 FL (6.5-10.1) L Neutrophils (%) (Auto) 65.4 % (45.0-75.0) Lymphocytes (%) (Auto) 23.9 % (20.0-45.0) Monocytes (%) (Auto) 7.4 % (1.0-10.0) Eosinophils (%) (Auto) 2.5 % (0.0-3.0) Basophils (%) (Auto) 0.8 % (0.0-2.0) Sodium Level 139 MMOL/L (136-145) Potassium Level 4.1 MMOL/L (3.5-5.1) Chloride Level 103 MMOL/L (98-107) Carbon Dioxide Level 32 MMOL/L (21-32) Anion Gap 4 mmol/L (5-15) L Blood Urea Nitrogen 15 mg/dL (7-18) Creatinine 0.6 MG/DL (0.55-1.30) Estimat Glomerular Filtration Rate mL/min (>60) Glucose Level 246 MG/DL (74-106) H Calcium Level 9.2 MG/DL (8.5-10.1) Current Medications Medications (Trade) Dose Ordered Sig/Wayne Route PRN Reason Start Time Stop Time Status Last Admin Dose Admin Acetaminophen (Tylenol) 650 mg Q4H PRN GT Mild Pain/Temp > 100.5 10/02/18 17:00 10/23/18 16:59 Acetylcysteine (Mucomyst) 100 mg Q4HRT [facility] 10/02/18 19:00 10/21/18 18:59 10/03/18 11:15 Albuterol/ Ipratropium (Albuterol/ Ipratropium) 3 ml Q4HRT [facility] 10/02/18 20:15 10/07/18 22:59 10/03/18 11:15 Amlodipine Besylate (Norvasc) 5 mg DAILY GT 10/03/18 09:00 11/01/18 15:29 10/03/18 09:30 Artificial Tears (Akwa-Tears) 1 drop Q4H PRN BOTH EYES Dry Eyes 10/02/18 17:00 10/18/18 16:59 Ascorbic Acid (Vitamin C) 250 mg TWICE A DAY GT 10/02/18 18:00 10/18/18 17:59 10/03/18 09:30 Bisacodyl (Dulcolax) 10 mg DAILYPRN PRN RECTAL Constipation 10/02/18 17:00 11/01/18 16:59 Ceftriaxone Sodium 1 gm/ Dextrose 50 ml @ 100 mls/hr Q24H IVPB 10/02/18 21:00 10/04/18 20:59 10/02/18 21:32 Chlorhexidine Gluconate (Kamla-Hex 2%) 1 applic DAILY@2000 TOPIC 10/02/18 20:00 10/17/18 19:59 10/02/18 21:26 Dextrose (Dextrose 50%) 25 ml Q30M PRN IV Hypoglycemia 10/02/18 16:45 10/14/18 14:38 Dextrose (Dextrose 50%) 50 ml Q30M PRN IV Hypoglycemia 10/02/18 16:45 10/14/18 14:38 Diphenhydramine HCl (Benadryl) 25 mg Q6H PRN ORAL Itching/Pruritis 10/02/18 17:00 10/14/18 16:59 Docusate Sodium (Colace) 100 mg TID GT 10/02/18 18:00 10/25/18 08:59 10/03/18 09:30 Famotidine (Pepcid) 20 mg BID GT 10/02/18 18:00 10/28/18 17:59 10/03/18 09:30 Furosemide (Lasix) 20 mg DAILY GT 10/03/18 09:00 10/22/18 08:59 10/03/18 09:31 Heparin Sodium (Porcine) (Heparin 5000 units/ml) 5,000 units EVERY 12 HOURS SUBQ 10/02/18 21:00 10/14/18 20:59 10/03/18 09:32 Insulin Aspart (NovoLOG) Q6HR SUBQ 10/02/18 18:00 10/14/18 15:59 10/03/18 13:13 Insulin Detemir (Levemir) 12 units BEDTIME SUBQ 10/02/18 21:00 10/17/18 20:59 10/02/18 21:31 Magnesium Hydroxide (Mom) 30 ml HSPRN PRN GT Constipation 10/02/18 17:00 11/01/18 16:59 Metoclopramide HCl (Reglan) 5 mg EVERY 6 HOURS NG 10/02/18 18:00 10/28/18 11:59 10/03/18 13:16 Metoclopramide HCl (Reglan) 10 mg Q8H PRN IVP Nausea & Vomiting 10/02/18 17:00 10/17/18 16:59 Ondansetron HCl (Zofran) 4 mg Q6H PRN IVP Nausea & Vomiting 10/02/18 17:00 10/14/18 16:59 Quetiapine Fumarate (SEROquel) 12.5 mg Q4H PRN ORAL agitation 10/02/18 22:45 11/01/18 22:44 Vancomycin HCl (Vanco rx to dose) 1 ea DAILY PRN MISC Per rx protocol 10/03/18 09:00 10/04/18 00:59 Vancomycin HCl/ Dextrose 275 ml @ 137.5 mls/ hr Q24H IVPB 10/03/18 01:00 10/08/18 00:59 10/03/18 00:20 Milton Valladares MD Oct 03, 2018 13:23
--- NOTE | 2018-10-03 13:28 | Surgery Progress Note ---
Surgery Progress Note Subjective Additional Comments no acute events. comfortable stable labs improved no n/v/f/c. Objective Last 24 Hour Vital Signs Date Time Temp Pulse Resp B/P (MAP) Pulse Ox O2 Delivery O2 Flow Rate FiO2 10/03/18 12:00 98.1 75 20 125/66 (85) 98 10/03/18 11:16 78 18 96 Nasal Cannula 2.0 28 10/03/18 09:30 71 128/65 10/03/18 09:00 Nasal Cannula 2.0 10/03/18 08:00 78 10/03/18 08:00 97.9 71 18 128/65 (86) 97 10/03/18 07:52 73 18 99 Nasal Cannula 2.0 28 10/03/18 07:42 99 Nasal Cannula 2.0 28 10/03/18 07:42 67 18 99 Nasal Cannula 2.0 28 10/03/18 04:00 99.2 80 16 140/55 (83) 97 10/03/18 04:00 72 10/03/18 03:14 62 20 99 Nasal Cannula 2.0 28 10/03/18 03:03 60 18 98 Nasal Cannula 2.0 28 10/03/18 00:00 97.9 90 18 166/83 (110) 97 10/03/18 00:00 87 10/02/18 23:22 71 20 99 Nasal Cannula 2.0 28 10/02/18 23:08 79 20 98 Nasal Cannula 2.0 28 10/02/18 21:00 Nasal Cannula 2.0 10/02/18 20:31 63 20 98 Nasal Cannula 2.0 28 10/02/18 20:18 66 20 97 Nasal Cannula 2.0 28 10/02/18 20:00 73 10/02/18 20:00 98.5 70 16 136/60 (85) 99 10/02/18 19:45 Nasal Cannula 2.0 28 10/02/18 19:45 Nasal Cannula 2.0 28 10/02/18 19:45 98 Nasal Cannula 2.0 28 10/02/18 16:08 77 151/82 10/02/18 16:00 98.1 77 22 151/82 (105) 98 10/02/18 16:00 Nasal Cannula 2.0 10/02/18 15:24 Nasal Cannula 2.0 28 10/02/18 15:24 Nasal Cannula 2.0 28 10/02/18 15:10 79 I&O Intake and Output 10/02/18 10/03/18 19:00 07:00 Intake Total 1060 ml 1295.0 ml Output Total 1200 ml 1003 ml Balance -140 ml 292.0 ml Intake Free Water 400 ml 310 ml IV Total 325.0 ml Tube Feeding 660 ml 660 ml Output Urine Total 1200 ml 1000 ml Chest Tube Drainage Total 3 ml # Bowel Movements 1 Dressing: saturated Wound: other Drains: other Cardiovascular: RSR Respiratory: clear Abdomen: soft, present bowel sounds, non-distended Extremities: no tenderness, no cyanosis, other Laboratory Tests Test 10/03/18 04:30 White Blood Count 7.2 K/UL (4.8-10.8) Red Blood Count 3.60 M/UL (4.20-5.40) L Hemoglobin 11.3 G/DL (12.0-16.0) L Hematocrit 34.6 % (37.0-47.0) L Mean Corpuscular Volume 96 FL (80-99) Mean Corpuscular Hemoglobin 31.5 PG (27.0-31.0) H Mean Corpuscular Hemoglobin Concent 32.7 G/DL (32.0-36.0) Red Cell Distribution Width 13.3 % (11.6-14.8) Platelet Count 272 K/UL (150-450) Mean Platelet Volume 6.3 FL (6.5-10.1) L Neutrophils (%) (Auto) 65.4 % (45.0-75.0) Lymphocytes (%) (Auto) 23.9 % (20.0-45.0) Monocytes (%) (Auto) 7.4 % (1.0-10.0) Eosinophils (%) (Auto) 2.5 % (0.0-3.0) Basophils (%) (Auto) 0.8 % (0.0-2.0) Sodium Level 139 MMOL/L (136-145) Potassium Level 4.1 MMOL/L (3.5-5.1) Chloride Level 103 MMOL/L (98-107) Carbon Dioxide Level 32 MMOL/L (21-32) Anion Gap 4 mmol/L (5-15) L Blood Urea Nitrogen 15 mg/dL (7-18) Creatinine 0.6 MG/DL (0.55-1.30) Estimat Glomerular Filtration Rate mL/min (>60) Glucose Level 246 MG/DL (74-106) H Calcium Level 9.2 MG/DL (8.5-10.1) Plan Problems: (1) Sepsis Assessment & Plan: 77-year-old female presented to [facility] in distress found to be septic with leukocytosis tachycardia and requiring ventilatory support. Patient's labs noted and significant abnormal. Lactic acidosis. Severe dehydration. IV fluids IV antibiotics as per infectious disease Trend labs US noted cont with feeds as tolearted cont with current care plan d/c today We will follow with recommendations Thank you for allowing me to participate in patient's care (2) Lactic acid acidosis (3) Upper sacral area unstageable pressure ulcer Assessment & Plan: Loose dry scab noted to L ear and easily removed. Skin is clean and intact. Full thickness sacral pressure injury with slough centrally at sacrococcygeal area with surrounding pink granulation.(L)Area of slough measures (L)1.4cm x (W)1cm.Total pressure injury measures (L)4cm x (W)5.5cm. R and L heels are soft ,pink and each heel are easily blanchable. Tx.Plan: Cleanse sacral wound with saline. Apply Therahoney.Apply Moisture Barrier Paste to periwound. Cover with Optifoam drsg. Change every 3 days and prn. Apply Cavilon Skin Barrier to both heels. Cover each heel with Opifoam drsg. Change every 7 days and prn. APM/LOU Mattress overlay. Reposition at least every 2hours or as tolerated. Off-load heels with pillow. (4) G tube feedings Assessment & Plan: DAILY ESTIMATED NEEDS: Needs based on Critical care, sepsis, wound, DM 53.6kg 25-32 kcals/kg 8317-1029 total kcals 1.25-2 g protein/kg 67-107 g total protein 25-32ml/kcal mL/kg 5116-6627 total fluid mLs NUTRITION DIAGNOSIS: 1) Swallowing difficulty R/T dysphagia, CVA as evidenced by PEG dependent, now orally intubated. 2) Increased kcal and pro needs r/t sepsis and wound healing as evidenced by elev BG and POC (200-400's), elev WBC (15.7), febrile (Tmax 100.9), elev Na (148), sacral wound/ unstageable per MD. CURRENT TF: Glucerna 1.2 @60 hrs ENTERAL NUTRITION RECOMMENDATIONS: Glucerna 1.2 @55ml/hr x24 hrs + Prosource x1 daily to provide 1320ml, 1584 kcal, 79g + 11g pro, 1063ml free H2O - Maintain Glucerna 1.2 -> Rec to REDUCE RATE to goal of 55ml/hr - Add Prosource x1 daily to better meet est pro needs - HOB over 30 degrees - Flush per MD-> 150q6 for added 600ml free fluid per day (1063ml from TF + 600ml flushes= 1663ml free fluid per day). ------ ADDITIONAL RECOMMENDATIONS: 1) Monitor hydration status 2) Obtain an accurate calibrated bed scale wt 3) Lytes daily on TF/ replete as needed 4) Rec increase hypoglycemic agents for improved BG control 5) Sacral wound: add AYDEE BID via PEG daily + Vit C 250mg BID daily via GT (5) Respiratory failure (6) Ventilator dependence Akhil Jackson Oct 03, 2018 13:28
--- NOTE | 2018-10-03 13:30 | Discharge Summary ---
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 She was intubated in the ER and admitted to ICU for further management. On admission, she was found to have hypernatremia of 167, acute renal failure with Cr 1.7 and BUN 102, Lactate 3.9. Patient was admitted to the ICU and seen by all above specialists. He was placed on broad abx for PNA and IVF managed my nephrology. Abx were de-escalated. His antibiotics were de-escalated base off sputum cultures, and hyponatremia as well as Eduardo resolved. Patient had EEG that ruled out any acute changes or seizures, which resulted as non-diagnostic. Patient was eventually weaned off the ventilator and extubated on 09/27. On day of discharge patient was on 2L NC with o2 sat >90. ID recs were to continue doxy and keflex po for another 3 days. Her PICC line was taken out. Patient also had MRI during stay that showed some acute progression of prior infarction. Patient was started on lipitor and norvasc for bp management and discharged to [facility]. I had a discussion regarding patients hospital course and stay with her brother prior to discharge. Al records from hospital stay reviewed. 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 - Nephrology follow up appreciated. 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 - R gaze preference noted. - Awake today and moves her R side only # Hypertension - Monitor and resume home medications not needed now due to hypotension. # History of dementia - Supportive care - SW to attempt to find family members # Nutrition - Restart tube feeds when approved by ICU - PEG in place # DVT and GI ppx # FULL CODE by records. - CM / SW follow up for family is needed. Resident at [facility]. time of note may not reflect time of clinical encounter. Discharge Medications New Medications: Atorvastatin Calcium* (Lipitor*) 40 Mg Tablet 40 MG ORAL BEDTIME, #30 TAB 0 Refills Cephalexin* (Keflex*) 250 Mg Capsule 250 MG ORAL EVERY 6 HOURS for 3 Days, #12 CAP 0 Refills Doxycycline Monohydrate* (Doxycycline Monohydrate*) 100 Mg Capsule 100 MG ORAL Q12H for 3 Days, #6 CAP 0 Refills [Acetaminophen] () 650 MG/20.3 ML SOLN 650 MG GT Q4H PRN for 60 Days Acetylcysteine* (Acetylcysteine*) 100 Mg/1 Ml Vial 100 MG HHN Q4HRT for 60 Days, VIAL Ascorbic Acid* (Ascorbic Acid*) 500 Mg Tablet 250 MG GT TWICE A DAY for 30 Days, TAB Bisacodyl (Dulcolax) 10 Mg Supp.rect 10 MG RECTAL DAILYPRN PRN for 30 Days, #30 SUPP Chlorhexidine Gluconate* (Hibiclens*) 118 Ml Liquid 1 APPLIC TOPIC DAILY@2000 for 30 Days, ML [D50w] () 50 ML SOLN 25 ML IV Q30M PRN for 50 Days Diphenhydramine Hcl* (Benadryl*) 25 Mg Capsule 25 MG ORAL Q6H PRN for 60 Days, #60 CAP Docusate Sodium (Docuprene) 100 Mg Tablet 100 MG GT TID for 30 Days, TAB Famotidine (Famotidine) 20 Mg Tablet 20 MG GT BID for 30 Days, #60 TAB Furosemide* (Lasix*) 20 Mg Tablet 20 MG GT DAILY for 30 Days, TAB Heparin Sod (Porcine) (Heparin Sodium*) 5 000/1 Ml Vial 5000 UNITS SUBQ EVERY 12 HOURS for 30 Days, VIAL Insulin Aspart (Novolog Flexpen) 100 Unit/1 Ml Insuln.pen 0 UNITS SUBQ Q6HR for 30 Days, EA Insulin Detemir (Levemir Flexpen) 100 Unit/1 Ml Insuln.pen 14 UNITS SUBQ BEDTIME for 30 Days, EA Metoclopramide HCl (Metoclopramide HCl) 10 Mg/10 Ml Solution 5 MG NG EVERY 6 HOURS for 30 Days, MG Metoclopramide Hcl (Metoclopramide Hcl*) 5 Mg/1 Ml Vial 10 MG IVP Q8H PRN for 30 Days, VIAL Ondansetron* (Zofran*) 4 Mg/2 Ml Vial 4 MG IVP Q6H PRN for 30 Days, VIAL Discharge Condition Upon Discharge: stable Discharge Disposition Patient was discharged to [facility] Discharge Diagnoses: (1) Pneumonia (2) Altered mental status (3) H/O: CVA (cerebrovascular accident) (4) HTN (hypertension) (5) Toxic metabolic encephalopathy Desiree Helm DO Oct 03, 2018 13:30
--- NOTE | 2018-10-03 13:50 | NUR ---
NURSE NOTES: Report given to ambulance personnel (Nicki, [address], [facility]) Pt. in stable condition. VS stable.
[2018-10-03] MEDS ORDERED: Tubing IV Secondary IV ONE (13:54)
[2018-10-03] MEDS ORDERED: NS 275ml ONE (13:54)
--- NOTE | 2018-10-03 14:00 | NUR ---
Discharge Note: Pt. left floor accompanied by ambulance personnel. Report given to Nicki, ambulance personnel. No belongings. DC package given to ambulance personnel. Left floor safely.
--- NOTE | 2018-10-03 21:45 | Progress Note ---
DATE: 10/03/2018 SUBJECTIVE: The patient is doing well. Continues to be confused, has poor memory, needs frequent redirection throughout the day, waxing and waning consciousness, and is minimally verbal. MENTAL STATUS EXAMINATION: The patient is alert, confused, disoriented. Mood is anxious. Affect is flat. Thought process, there is a paucity of thought content. Thought content, no suicidal or homicidal ideation. ASSESSMENT: 1. Dementia. 2. Acute encephalopathy. PLAN: 1. We will continue low dose of antipsychotic. 2. Provide the patient with reality orientation and supportive therapy. Kendal Norris M.D. DR: TEREZA JOB#: [id number] CC:
== END 2018-10-03 13:55 | DRG 870 ==
LOC: EDBD 08:31 → EMR 08:54 → ICU 09:07 → EDBEDREQ 10:29 → 2W 09-29 16:15 → 2E 10-02 16:23
PROC: 0BH17EZ Insertion of Endotracheal Airway into Trachea, Via Natural or Artificial Opening (ICD-10-PCS; principal; 2018-09-14)
PROC: 5A1955Z Respiratory Ventilation, Greater than 96 Consecutive Hours (ICD-10-PCS; principal; 2018-09-14)
PROC: B548ZZA Ultrasonography of Superior Vena Cava, Guidance (ICD-10-PCS; 2018-09-17)
PROC: 02HV33Z Insertion of Infusion Device into Superior Vena Cava, Percutaneous Approach (ICD-10-PCS; 2018-09-17)
DX: A41.9 Sepsis, unspecified organism (principal); J96.01 Acute respiratory failure with hypoxia; J15.0 Pneumonia due to Klebsiella pneumoniae; J15.212 Pneumonia due to Methicillin resistant Staphylococcus aureus; G93.41 Metabolic encephalopathy; N17.9 Acute kidney failure, unspecified; E87.0 Hyperosmolality and hypernatremia; Z99.11 Dependence on respirator [ventilator] status; I69.959 Hemiplegia and hemiparesis following unspecified cerebrovascular disease affecting unspecified side; G93.1 Anoxic brain damage, not elsewhere classified; R65.20 Severe sepsis without septic shock; E86.0 Dehydration; L89.150 Pressure ulcer of sacral region, unstageable; Z93.1 Gastrostomy status; R13.10 Dysphagia, unspecified; F03.90 Unspecified dementia, unspecified severity, without behavioral disturbance, psychotic disturbance, mood disturbance, and anxiety; I12.9 Hypertensive chronic kidney disease with stage 1 through stage 4 chronic kidney disease, or unspecified chronic kidney disease; E11.22 Type 2 diabetes mellitus with diabetic chronic kidney disease; N18.9 Chronic kidney disease, unspecified; D69.6 Thrombocytopenia, unspecified; D64.9 Anemia, unspecified; E87.6 Hypokalemia; E88.09 Other disorders of plasma-protein metabolism, not elsewhere classified
CPT/HCPCS: 31500; 36415; 36569; 36600; 70450; 70551; 71045; 76700; 76770; 76937; 80048; 80053; 80076; 80150; 80202; 81003; 82248; 82270; 82306; 82533; 82550; 82553; 82607; 82728; 82746; 82803; 82962; 83036; 83540; 83550; 83605; 83690; 83735; 83880; 83970; 84100; 84443; 84484; 84550; 85007; 85025; 86140; 86703; 86705; 86709; 86803; 87040; 87070; 87081; 87086; 87181; 87205; 87324; 87340; 93005; 93306; 94002; 94003; 94640; 94664; 95819; 96361; 96365; 99291; J1815; J2405; J7620; S5561

== ENCOUNTER 2018-10-14 12:50 | Inpatient (IN) | payer MEDICARE, MEDICAID ==
[~2018-10-14] VITALS: Ht 157.5 cm; Wt 49.9 kg
[2018-10-14] VITALS (9 sets, daily range): BP systolic 106–127; BP diastolic 49–65
[~2018-10-14 12:50] MED LIST changes: +ACETAMINOP160 MG/54 GT; -ACETAMINOP160 MG/54 ORAL; +ACETYLCYST100 MG/1 M HHN; +ASCORBIC ACID500 M4 GT; +Acetaminophen GT; +BENADRYL25 MG ORAL; +D50w IV; +DOCUPRENE100 MG GT; +DOXYCYCLINE MO100 MG ORAL; +DULCOLAX10 MG RECTAL; +FAMOTIDINE20 MG GT; +FUROSEMIDE20 M1 GT; +HIBICLENS118 ML TOPIC; +KEFLEX250 MG ORAL; +LIPITOR40 MG ORAL; +METFORMIN HCL500 M1 GT; +METOCLOPRAM5 MG/1 M1 IVP; +METOCLOPRAM5 MG/5 M1 NG; +ZANTAC150 MG GT; +ZOFRAN 4 MG4 MG/2 ML IVP
[2018-10-14 13:36] LABS: APPEARANCE,URINE CLEAR; BILIRUBIN, URINE NEGATIVE (NEGATIVE); COLOR,URINE PALE YELLOW; GLUCOSE, URINE (UA) NEGATIVE (NEGATIVE); KETONES,URINE NEGATIVE (NEGATIVE); LEUKOCYTE ESTERASE ,URINE 3+ (NEGATIVE); NITRITE,URINE POSITIVE (NEGATIVE); PH,URINE 5 (4.5-8.0); PROTEIN,URINE NEGATIVE (NEGATIVE); UROBILINOGEN,URINE NORMAL MG/DL (0.0-1.0)
[2018-10-14 13:47] LABS: BASOPHILS % (AUTO) 0.9 % (0.0-2.0); EOSINOPHILS % (AUTO) 0.7 % (0.0-3.0); HEMATOCRIT 45.1 % (37.0-47.0); HEMOGLOBIN 14.1 G/DL (12.0-16.0); LYMPHOCYTES % (AUTO) 24.5 % (20.0-45.0); MEAN CORPUSCULAR VOLUME 98 FL (80-99); MONOCYTES % (AUTO) 8.3 % (1.0-10.0); NEUTROPHILS % (AUTO) 65.6 % (45.0-75.0); PLATELET COUNT 508 K/UL (150-450); RED BLOOD COUNT 4.59 M/UL (4.20-5.40); RED CELL DISTRIBUTION WIDTH 13.3 % (11.6-14.8); WHITE BLOOD COUNT 11.7 K/UL (4.8-10.8)
--- NOTE | 2018-10-14 13:57 | Emergency Room Report ---
History of Present Illness General Chief Complaint: Fever Source: Patient Present Illness HPI Patient is a 77-year-old female sent in by basic ambulance from nursing facility after increased fever. Patient was noted to have been given Tylenol prior to arrival. She had a recent hospitalization for sepsis. She was noted to be G-tube dependent. Patient's baseline mental status is nonverbal. Patient was not having any reported episodes of vomiting or diarrhea. She had prior history of a urinary infections. Allergies: Coded Allergies: No Known Allergies (Unverified , 02/04/17) Patient History Past Medical History: see triage record Now: No Reviewed Nursing Documentation: PMH: Agreed; PSxH: Agreed Nursing Documentation-PMH Past Medical History: No History, Except For Hx Cardiac Problems: Yes Hx Hypertension: Yes Hx Diabetes: Yes 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, unspecified Hx Gastrointestinal Problems: Yes - PEG placement (01/2017) Hx Neurological Problems: No - episodes of confusion, encephalopathy Hx Cerebrovascular Accident: Yes - right side CVA, hemiplagia hemiparesis, left residual Hx Transient Ischemic Attacks: No Hx Dementia: Yes Review of Systems All Other Systems: limited - by poor historian Physical Exam Vital Signs Date Time Temp Pulse Resp B/P (MAP) Pulse Ox O2 Delivery O2 Flow Rate FiO2 10/14/18 12:51 99.0 98 20 147/80 (102) 100 Room Air 10/14/18 13:21 2.0 General Appearance: Chronically Ill Head: normocephalic ENT: dry mucus membranes Neck: limited range of motion Respiratory: lungs clear, normal breath sounds Cardiovascular #1: normal inspection Gastrointestinal: normal inspection, non tender, soft, no mass, other - gtube stoma CDI Musculoskeletal: decreased range of motion Neurologic: responsive, aphasia Medical Decision Making Diagnostic Impression: Primary Impression: Sepsis Additional Impressions: Toxic metabolic encephalopathy Lactic acid acidosis Hypernatremia Dehydration ER Course Patient presented for fever. Differential diagnosis included wasn't limited to pneumonia, urinary tract infection, drug fever, allergic reaction, sepsis, cholecystitis, among others. Because of complexity of patient's case laboratory testing and imaging studies were ordered. Patient is noted to have fever and risk for infection. She started on IV fluids blood cultures were obtained. Patient was noted to have some chronic wounds to her buttock area. Chest x-ray read by radiology showed sub segmental atelectasis versus infiltrate in the left lung base mildly increased interstitial markings. Patient was given IV antibiotics. Dr. Muhammad was contacted for [facility] for inpatient management due primary care physician Labs Test 10/14/18 13:20 White Blood Count 11.7 K/UL (4.8-10.8) Red Blood Count 4.59 M/UL (4.20-5.40) Hemoglobin 14.1 G/DL (12.0-16.0) Hematocrit 45.1 % (37.0-47.0) Mean Corpuscular Volume 98 FL (80-99) Mean Corpuscular Hemoglobin 30.8 PG (27.0-31.0) Mean Corpuscular Hemoglobin Concent 31.3 G/DL (32.0-36.0) Red Cell Distribution Width 13.3 % (11.6-14.8) Platelet Count 508 K/UL (150-450) Mean Platelet Volume 7.1 FL (6.5-10.1) Neutrophils (%) (Auto) 65.6 % (45.0-75.0) Lymphocytes (%) (Auto) 24.5 % (20.0-45.0) Monocytes (%) (Auto) 8.3 % (1.0-10.0) Eosinophils (%) (Auto) 0.7 % (0.0-3.0) Basophils (%) (Auto) 0.9 % (0.0-2.0) Urine Color Pale yellow Urine Appearance Clear Urine pH 5 (4.5-8.0) Urine Specific [place] 1.010 (1.005-1.035) Urine Protein Negative (NEGATIVE) Urine Glucose (UA) Negative (NEGATIVE) Urine Ketones Negative (NEGATIVE) Urine Blood Negative (NEGATIVE) Urine Nitrite Positive (NEGATIVE) Urine Bilirubin Negative (NEGATIVE) Urine Urobilinogen Normal MG/DL (0.0-1.0) Urine Leukocyte Esterase 3+ (NEGATIVE) Urine RBC 0 /HPF (0 - 2) Urine WBC 5-10 /HPF (0 - 2) Urine Squamous Epithelial Cells Few /LPF (NONE/OCC) Urine Bacteria Few /HPF (NONE) Urine Yeast Few /HPF (NONE) Sodium Level 152 MMOL/L (136-145) Potassium Level 4.3 MMOL/L (3.5-5.1) Chloride Level 111 MMOL/L (98-107) Carbon Dioxide Level 31 MMOL/L (21-32) Anion Gap 10 mmol/L (5-15) Blood Urea Nitrogen 39 mg/dL (7-18) Creatinine 1.0 MG/DL (0.55-1.30) Estimat Glomerular Filtration Rate mL/min (>60) Glucose Level 203 MG/DL (74-106) Lactic Acid Level 4.00 mmol/L (0.4-2.0) Calcium Level 10.3 MG/DL (8.5-10.1) Phosphorus Level 4.4 MG/DL (2.5-4.9) Magnesium Level 2.3 MG/DL (1.8-2.4) Total Bilirubin 0.4 MG/DL (0.2-1.0) Aspartate Amino Transf (AST/SGOT) 20 U/L (15-37) Alanine Aminotransferase (ALT/SGPT) 19 U/L (12-78) Alkaline Phosphatase 122 U/L (46-116) Total Creatine Kinase 82 U/L (26-308) Creatine Kinase MB < 0.5 NG/ML (0.0-3.6) Creatine Kinase MB Relative Index 0.6 Troponin I 0.000 ng/mL (0.000-0.056) Total Protein 8.9 G/DL (6.4-8.2) Albumin 3.1 G/DL (3.4-5.0) Globulin 5.8 g/dL Albumin/Globulin Ratio 0.5 (1.0-2.7) EKG Diagnostic Results Rate: normal Rhythm: NSR ST Segments: no acute changes Last Vital Signs Date Time Temp Pulse Resp B/P (MAP) Pulse Ox O2 Delivery O2 Flow Rate FiO2 10/14/18 13:21 99.4 87 14 126/64 98 Room Air 2.0 Status: improved Disposition: HOME, SELF-CARE Condition: Stable Osei Pendleton MD Oct 14, 2018 13:57
[2018-10-14] MEDS ORDERED: cefTRIAXone 1 GM in NS 55 ML IVPB ONE (14:00)
--- NOTE | 2018-10-14 14:00 | NUR ---
ED Nurse Note: lactic reflux and flu swab sent.
[2018-10-14 14:01] LABS: ANION GAP 10 mmol/L (5-15); BLOOD UREA NITROGEN 39 mg/dL (7-18); CALCIUM 10.3 MG/DL (8.5-10.1); CARBON DIOXIDE 31 MMOL/L (21-32); CHLORIDE 111 MMOL/L (98-107); POTASSIUM 4.3 MMOL/L (3.5-5.1); SODIUM 152 MMOL/L (136-145)
[2018-10-14 14:13] LABS: ALANINE AMINOTRANSFERASE 19 U/L (12-78); ALBUMIN 3.1 G/DL (3.4-5.0); ALBUMIN/GLOBULIN RATIO 0.5 (1.0-2.7); ALKALINE PHOSPHATASE 122 U/L (46-116); ASPARTATE AMINO TRANSFERASE 20 U/L (15-37); BILIRUBIN,TOTAL 0.4 MG/DL (0.2-1.0); CKMB < 0.5 NG/ML (0.0-3.6); CREATINE KINASE 82 U/L (26-308); PHOSPHORUS 4.4 MG/DL (2.5-4.9)
--- NOTE | 2018-10-14 14:13 | Diagnostic Imaging Report ---
EXAM: XR Chest, 1 View CLINICAL HISTORY: Shortness of breath TECHNIQUE: Frontal view of the chest. COMPARISON: Chest x-rays dated 10/03/18 FINDINGS: Lungs: Subsegmental atelectasis versus infiltrate in the left lung base. Mildly increased interstitial markings. Pleural space: Unremarkable. The costophrenic angles are sharp. No visible pneumothorax. Heart: Unremarkable. No cardiomegaly. Mediastinum: Unremarkable. Bones/joints: Unremarkable. Vasculature: Atherosclerotic calcifications are noted within the aortic arch. Tubes, lines and devices: Telemetry leads overlie the thorax. IMPRESSION: 1. Subsegmental atelectasis versus infiltrate in the left lung base. 2. Mildly increased interstitial markings. This is likely related to chronic senescent changes although differential diagnosis may also include mild bronchitis or interstitial pneumonitis.
--- NOTE | 2018-10-14 15:12 | NUR ---
ED Nurse Note: ED Nurse Note: Patient laying in bed semi recumberent. Initially recieved by RN. eyes open spontaneously but patient drowsy. GCS spontaneous eye opening, non verbal and no pain response at baseline per EMT/SNF. looks pale, feels warm to touch upper body and cool to touch lower body. Skin slightly moist. Fever reassessment as reported as 108f by SNF VIA emt, rectal temp obtained by RN. Skin pressure area sore to sacrum, sore to left ear (wears nasal canula to recieve 02 at baseline.) Sore to ear not dressed as healing and no discharge present, no open area at present. Small blister to middle of lower abdomen noted. GTube insitu. There is bruising present to the abdomen possibly from the Gtube, yellow in colour. Small area of slight rash to chin, no weeping or blisters present. patient appears comfortable, no grimacing or moaning or orther signs of discomfort. Lips dry, lemon stciks utiklised to provide oral hygiene. Medications as prescribed.
--- NOTE | 2018-10-14 15:45 | NUR ---
ED Nurse Note: RN called for lactic reflux result. per lab, no specimen. will sent it again.
--- NOTE | 2018-10-14 16:57 | NUR ---
ED Nurse Note: PHOTOGRAPH taken of sacral pressure sore (wound 3) wound 1 ear - healing no open area present) wound 2 intact blister area to abdomen less than 1x1cm in size, wound 3 sacral wound with surroundiong area of discolouraton and the presence of discoloration of the skin in the area to upper thighs urinary cather insitu possible pressure damage from taylor presence - area photographed and uploaded to the file. IV ANTIBIOTICS COMPLETED AND 1000 iv INFUSION COMPLETED. Intake chart updated. Oral hygiene x2 provided with lemon sticks. Vital signs constantly monitored in ED charting updated with most recent set.
[2018-10-14] MEDS ORDERED: Hydromorphone 0.5mg/0.5ml inj IVP PRN (17:15)
[2018-10-14] MEDS ORDERED: VITAMIN C500 M1 GT (17:23)
[2018-10-14] MEDS ORDERED: GEMFIBROZIL600 MG GT (17:23)
[2018-10-14] MEDS ORDERED: MULTIVITAMINS1 EAC8 GT (17:23)
[2018-10-14] MEDS ORDERED: AUGMENTIN 500-1 EACH GT (17:23)
[2018-10-14] MEDS ORDERED: ZINC SULFATE220 M1 GT (17:23)
[2018-10-14] MEDS ORDERED: FISH OIL CAP1000 MG GT (17:23)
[2018-10-14] MEDS ORDERED: CULTURELLE1 EACH GT (17:23)
--- NOTE | 2018-10-14 18:00 | NUR ---
NURSE NOTES: Dr. Muhammad at nurse station. Ordered lactated ringer's IVF at 125 ml/hr, MD aware of Lactic acid level of 2.80 and ordered lactic acid lab for midnight. Orders entered, noted, and carried out. Will continue to monitor patient.
--- NOTE | 2018-10-14 18:00 | NUR ---
NURSE NOTES: Received report from FELIX Starkey. Patient is resting in bed, in stable condition. No s/sx of SOB, breathing is even and unlabored on 2LNC. Observed no presence of pain or discomfort at this time, pt is nonverbal. Admitted with sacral pressure injury, left ear pressure injury, and left lateral foot possible DTI. Wound care protocol initiated. Charge nurse made aware. Will continue to monitor patient. Addendum: 10/14/18 at 1942 by JOSE VILLEDA RN NURSE NOTES: Patient admitted with no belongings.
--- NOTE | 2018-10-14 18:17 | History and Physical ---
History of Present Illness General Date patient seen: Oct 14, 2018 Reason for Hospitalization: Fever Present Illness HPI Patient is a 77-year-old female, non verbal at baseline and G tube dependent sent in from nursing facility after increased fever. Patient was noted to have been given Tylenol prior to arrival and afebrile int he ER. There wa sno report of vomiting or diarrhea. 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 Past Medical/Surgical History: (1) Hypernatremia (2) Abscess (3) HTN (hypertension) (4) Toxic metabolic encephalopathy (5) Hyperglycemia due to type 2 diabetes mellitus (6) Hypokalemia (7) Hypercalcemia (8) Elevated troponin (9) Encounter for PEG (percutaneous endoscopic gastrostomy) (10) PNA (pneumonia) (11) Upper sacral area unstageable pressure ulcer (12) Large ischemic R MCA stroke (13) Perineal area gertrudis rashes extending to left and right buttocks (14) Right lateral malleolus stage I pressure ulcer (15) Rash (16) MRSA infection (17) G tube feedings (18) Dehydration (19) Electrolyte imbalance (20) Sepsis (21) Respiratory failure (22) Altered mental status (23) H/O: CVA (cerebrovascular accident) (24) Hypernatremia (25) Pneumonia (26) Lactic acid acidosis (27) KEL (acute kidney injury) (28) Ventilator dependence (29) Endotracheally intubated Social history: Unable to obtain due to mental status Family history: Unable to obtain Allergies: Coded Allergies: No Known Allergies (Unverified , 02/04/17) Medication History Scheduled Acetylcysteine* (Acetylcysteine*), 100 MG HHN Q4HRT Amlodipine Besylate (Norvasc), 5 MG NG BID Amoxicillin/Potassium Clav 500-125 Tablet* (Augmentin 500-125 Tablet*), 1 TAB GT TWICE A DAY, (Reported) Ascorbic Acid* (Ascorbic Acid*), 250 MG GT TWICE A DAY Ascorbic Acid* (Vitamin C*), 500 MG GT DAILY, (Reported) Aspirin* (Aspirin*), 162 MG NG DAILY Atorvastatin Calcium* (Lipitor*), 40 MG ORAL BEDTIME Cephalexin* (Keflex*), 250 MG ORAL EVERY 6 HOURS Chlorhexidine Gluconate* (Hibiclens*), 1 APPLIC TOPIC DAILY@1999 Cholecalciferol (Vitamin D3)* (Vitamin D*), 5,000 INTLU GT DAILY Cran/Vitc/Mannose/Inulin/Brom (Uti-Stat Liquid), 3,875 MG GT DAILY, (Reported) Cyclobenzaprine Hcl* (Flexeril*), 5 MG ORAL THREE TIMES A DAY, (Reported) Docusate Sodium (Docuprene), 100 MG GT TID Docusate Sodium* (Docusate Sodium*), 100 MG GT TWICE A DAY, (Reported) Doxycycline Monohydrate* (Doxycycline Monohydrate*), 100 MG ORAL Q12H Famotidine (Famotidine), 20 MG GT BID Fish Oil (Fish Oil 1,000 mg Capsule), 1,000 MG ORAL DAILY, (Reported) Furosemide* (Lasix*), 20 MG GT DAILY Heparin Sod (Porcine) (Heparin Sodium*), 5,000 UNITS SUBQ EVERY 12 HOURS Heparin Sod (Porcine) (Heparin Sodium*), 5,000 UNITS SUBQ EVERY 12 HOURS Insulin Aspart (Novolog Flexpen), 0 UNITS SUBQ Q6HR Insulin Detemir (Levemir Flexpen), 14 UNITS SUBQ BEDTIME Lactobacillus Rhamnosus Gg* (Culturelle*), 1 CAP GT ONCE, (Reported) Magnesium Hydroxide* (Milk Of Magnesia*), 30 ML ORAL DAILY, (Reported) Metformin Hcl* (Metformin Hcl*), 500 MG GT TWICE A DAY, (Reported) Metoclopramide HCl (Metoclopramide HCl), 5 MG NG EVERY 6 HOURS Metoprolol Tartrate (Metoprolol Tartrate), 12.5 MG NG Q12HR Multivitamin Liquid* (Multi-Delyn*), 5 ML GT DAILY, (Reported) Multivitamin With Minerals (Multivitamins With Minerals*), 1 TAB ORAL DAILY, ( Reported) Nitroglycerin (Nitroglycerin Patch), 1 PATCH TDERMAL Q24H Ranitidine Hcl* (Zantac*), 150 MG GT DAILY, (Reported) Trimethoprim/Sulfamethoxazole (Bactrim Ds Tablet), 1 TAB ORAL TWICE A DAY Zinc Sulfate (Zinc Sulfate*), 220 MG ORAL DAILY, (Reported) Scheduled PRN Acetaminophen* (Acetaminophen*), 650 MG ORAL Q6H PRN for Mild Pain/Temp > 100.5, (Reported) Bisacodyl (Bisacodyl), 10 MG RC DAILY PRN for Constipation, (Reported) Bisacodyl (Dulcolax), 10 MG RECTAL DAILYPRN PRN Diphenhydramine Hcl* (Benadryl*), 25 MG ORAL Q6H PRN Ipratropium/Albuterol Sulfate (Iprat-Albut 0.5-3(2.5) Mg/3 Ml), 3 ML IH Q6HR PRN for Shortness of Breath, (Reported) Metoclopramide Hcl (Metoclopramide Hcl*), 10 MG IVP Q8H PRN Na Phos,M-B/Na Phos,Di-Ba* (Fleet Enema*), 133 ML RECTAL DAILY PRN for Constipation, (Reported) Ondansetron* (Zofran*), 4 MG IVP Q6H PRN [Acetaminophen], 650 MG GT Q4H PRN [D50w], 25 ML IV Q30M PRN Miscellaneous Medications Gemfibrozil (Gemfibrozil*), 600 MG GT, (Reported) Patient History Healthcare decision maker Resuscitation status Advanced Directive on File Review of Systems ROS Narrative unable to obtain due to mental status/ baseline unresponsive Physical Exam Physical Exam Narrative General Appearance: Chronically Ill, in no acute distress Head: normocephalic ENT: dry mucus membranes Neck: limited range of motion, supple, no JVD Respiratory: lungs clear, normal breath sounds Cardiovascular: RRR, S1S2, no m/r/g Gastrointestinal: non tender, soft, no mass, other - gtube stoma CDI Musculoskeletal: decreased range of motion Neurologic: responsive, aphasic, +hemiplegia Skin: Stage 4 sacral decub ulcer, clean, no discharge or odor Last 24 Hour Vital Signs Date Time Temp Pulse Resp B/P (MAP) Pulse Ox O2 Delivery O2 Flow Rate FiO2 10/14/18 17:20 77 16 112/50 98 Nasal Cannula 2.0 10/14/18 17:17 78 16 106/49 99 Nasal Cannula 2.0 10/14/18 17:15 73 16 106/49 99 Nasal Cannula 2.0 10/14/18 17:12 75 16 106/51 100 Nasal Cannula 2.0 10/14/18 17:06 75 16 111/53 99 Nasal Cannula 2.0 10/14/18 17:03 97.8 79 22 109/65 98 Nasal Cannula 2.0 10/14/18 13:53 Nasal Cannula 2.0 10/14/18 13:21 99.4 87 14 126/64 98 Room Air 2.0 10/14/18 12:51 99.0 98 20 147/80 (102) 100 Room Air Laboratory Tests Test 10/14/18 13:20 10/14/18 16:10 White Blood Count 11.7 K/UL (4.8-10.8) H Red Blood Count 4.59 M/UL (4.20-5.40) Hemoglobin 14.1 G/DL (12.0-16.0) Hematocrit 45.1 % (37.0-47.0) Mean Corpuscular Volume 98 FL (80-99) Mean Corpuscular Hemoglobin 30.8 PG (27.0-31.0) Mean Corpuscular Hemoglobin Concent 31.3 G/DL (32.0-36.0) L Red Cell Distribution Width 13.3 % (11.6-14.8) Platelet Count 508 K/UL (150-450) H Mean Platelet Volume 7.1 FL (6.5-10.1) Neutrophils (%) (Auto) 65.6 % (45.0-75.0) Lymphocytes (%) (Auto) 24.5 % (20.0-45.0) Monocytes (%) (Auto) 8.3 % (1.0-10.0) Eosinophils (%) (Auto) 0.7 % (0.0-3.0) Basophils (%) (Auto) 0.9 % (0.0-2.0) Urine Color Pale yellow Urine Appearance Clear Urine pH 5 (4.5-8.0) Urine Specific [place] 1.010 (1.005-1.035) Urine Protein Negative (NEGATIVE) Urine Glucose (UA) Negative (NEGATIVE) Urine Ketones Negative (NEGATIVE) Urine Blood Negative (NEGATIVE) Urine Nitrite Positive (NEGATIVE) H Urine Bilirubin Negative (NEGATIVE) Urine Urobilinogen Normal MG/DL (0.0-1.0) Urine Leukocyte Esterase 3+ (NEGATIVE) H Urine RBC 0 /HPF (0 - 2) Urine WBC 5-10 /HPF (0 - 2) H Urine Squamous Epithelial Cells Few /LPF (NONE/OCC) Urine Bacteria Few /HPF (NONE) Urine Yeast Few /HPF (NONE) H Sodium Level 152 MMOL/L (136-145) H Potassium Level 4.3 MMOL/L (3.5-5.1) Chloride Level 111 MMOL/L (98-107) H Carbon Dioxide Level 31 MMOL/L (21-32) Anion Gap 10 mmol/L (5-15) Blood Urea Nitrogen 39 mg/dL (7-18) H Creatinine 1.0 MG/DL (0.55-1.30) Estimat Glomerular Filtration Rate mL/min (>60) Glucose Level 203 MG/DL (74-106) H Lactic Acid Level 4.00 mmol/L (0.4-2.0) H 2.80 mmol/L (0.66-2.22) H Calcium Level 10.3 MG/DL (8.5-10.1) H Phosphorus Level 4.4 MG/DL (2.5-4.9) Magnesium Level 2.3 MG/DL (1.8-2.4) Total Bilirubin 0.4 MG/DL (0.2-1.0) Aspartate Amino Transf (AST/SGOT) 20 U/L (15-37) Alanine Aminotransferase (ALT/SGPT) 19 U/L (12-78) Alkaline Phosphatase 122 U/L (46-116) H Total Creatine Kinase 82 U/L (26-308) Creatine Kinase MB < 0.5 NG/ML (0.0-3.6) Creatine Kinase MB Relative Index 0.6 Troponin I 0.000 ng/mL (0.000-0.056) Total Protein 8.9 G/DL (6.4-8.2) H Albumin 3.1 G/DL (3.4-5.0) L Globulin 5.8 g/dL Albumin/Globulin Ratio 0.5 (1.0-2.7) L Microbiology Date/Time Source Procedure Growth Status 10/14/18 14:25 Nasal Nares - Final Complete 10/14/18 14:25 Nasal Nares - Final Complete Height (Feet): 5 Height (Inches): 2.00 Weight (Pounds): 120 Medications Current Medications Medications (Trade) Dose Ordered Sig/Wayne Route PRN Reason Start Time Stop Time Status Last Admin Dose Admin Acetaminophen (Tylenol) 650 mg Q4H PRN ORAL fever 10/14/18 17:15 11/13/18 17:14 Azithromycin 500 mg/Dextrose 275 ml @ 275 mls/hr Q24H IV 10/14/18 18:30 10/21/18 18:29 Ceftriaxone Sodium 2 gm/ Dextrose 110 ml @ 220 mls/hr Q24H IV 10/15/18 14:00 10/22/18 13:59 Heparin Sodium (Porcine) (Heparin 5000 units/ml) 5,000 units EVERY 12 HOURS SUBQ 10/14/18 21:00 11/13/18 20:59 Hydromorphone HCl (Dilaudid) 0.5 mg Q6H PRN IVP For Pain 10/14/18 17:15 10/21/18 17:14 Lactated Ringer's 1,000 ml @ 125 mls/hr Q8H IV 10/14/18 18:00 11/13/18 17:59 Pantoprazole (Protonix) 40 mg DAILY ORAL 10/15/18 09:00 11/14/18 08:59 Assessment/Plan Problem List: (1) UTI (urinary tract infection) ICD Codes: N39.0 - Urinary tract infection, site not specified SNOMED: 44550241 (2) Sepsis ICD Codes: A41.9 - Sepsis, unspecified organism SNOMED: 08457305 (3) Toxic metabolic encephalopathy ICD Codes: G92 - Toxic encephalopathy SNOMED: 597868250 (4) Lactic acid acidosis ICD Codes: E87.2 - Acidosis SNOMED: 53198959 (5) Hypernatremia ICD Codes: E87.0 - Hyperosmolality and hypernatremia SNOMED: 526074452 (6) Upper sacral area unstageable pressure ulcer (7) PNA (pneumonia) ICD Codes: J18.9 - Pneumonia, unspecified organism SNOMED: 838982197 Status: progressing Assessment/Plan: 77 year old female with multiple comorbids from [place] with fever, admitted to telemetry for sepsis secondary to PNA vs UTI vs sacra decub ulcer infection ( less likely), toxic metabolic encephalopathy, severe dehydration, lactic acidosis and hypernatremia. 1. Sepsis due to PNA vs. UTI. Upon reviewing the chart she has a history of MRSA PNA, klebsiella PNA and aspiration risk. CXR showed segmental atelectasis versus infiltrate in the left lung base mildly increased interstitial markings. She received ceftriaxone and IV flagyl in the ER. Would give one dose of Vancomycin.Also Azithromycin for atypical coverage. IV hydration. Trend lactic acid- already improved to 2.8, from 4. follow up blood and sputum cultures. These antibiotics should cover UTI as well.ID consult with Dr. Solis 2. Toxic metabolic encephalopathy. Multifactorial. Has had work up with MRI and EEG previous admission. 3. Lactic acidosis and severe dehydration with contraction alkalosis (? furosemide use). Will trend lactate. Continue IV LR @125ml/hr. Hold Furosemide 4. Hypernatremia. Add Free water via PEG 5. Neuro: history of previous CVAs. Continue Lipitor, Hold antihypertensive medications for now. 6. Thrombocytosis- Likely reactive, will monitor 7. Sacral decub: Wound care, consult with Dr. Jackson 8. Paraprotein gap of 5.8, likely due to dehydration. Will repeat CMP after hydration Code status: full code (POLST reviewed) Time of this note may not necessarily reflect time of encounter. I spent 70 minutes on this encounter. 50% or greater on care coordination. I spent 60 minutes on prolonged evaluation and management service before direct patient care. Abdullahi Muhammad M.D. Oct 14, 2018 18:16
[2018-10-14] MEDS: LR 1000ml 1,000 ML IV SCH (18:35)
[2018-10-14] MEDS: Azithromycin 500 MG in D5W 275 ML IV SCH (18:35)
--- NOTE | 2018-10-14 18:37 | NUR ---
NURSE NOTES: Consulted clinical pharmacology, Lactated Ringer's and Azithromycin compatible IV solutions. Noted.
--- NOTE | 2018-10-14 19:30 | NUR ---
HAND-OFF: Report given to FELIX Sepulveda.
--- NOTE | 2018-10-14 20:16 | NUR ---
NURSE NOTES: Pt received from FELIX Cat alert and oriented x0, nonverbal but able to open eyes spontaneously, bilateral PERRLA. IV site asymptomatic and patent on L hand 20g, running to LR at 125 as ordered. On 2L NC, saturating at 96% with no acute s/s of distress noted. Nunez catheter draining to clear and yellow urine. Bed alarm on, bed in lowest position. Call light and belongings within reach. Brother at bedside.
[2018-10-14] MEDS: Heparin 5000 units/ml inj SUBQ SCH (21:40)
[2018-10-15] VITALS: BP 124/81
--- NOTE | 2018-10-15 01:29 | NUR ---
NURSE NOTES: Endorsed lactic acid of 4.[address] New[address] Dr. New, give another 2L bolus of NS and redraw lactic acid in AM. Will carry out orders and continue to monitor pt.
[2018-10-15] MEDS: LR 1000ml 1,000 ML IV SCH ×3 (02:00→14:06)
--- NOTE | 2018-10-15 02:54 | NUR ---
NURSE NOTES: Endorsed new lactic acid of 1.[address] New.
[2018-10-15 04:00] VITALS: BP 124/59
--- NOTE | 2018-10-15 04:30 | NUR ---
NURSE NOTES: Pt currently asleep, resting in bed with no acute s/s of distress noted. On 2L NC, saturating at 97%. candy separator enrobing on - 79 Sinus Rhythm. Nunez catheter draining to clear and yellow urine. Gtube feed tolerated - HOB elevated and aspiration precautions implemented. Bed alarm on, bed in lowest position. Call light and belongings within reach.
[2018-10-15] MEDS: NovoLOG Insulin Flexpen SUBQ SCH ×4 (05:42→21:05)
--- NOTE | 2018-10-15 07:25 | NUR ---
HAND-OFF: Report given to FELIX Flores.
--- NOTE | 2018-10-15 07:30 | NUR ---
NURSE NOTES: Nurse report given by FELIX Sepulveda. Patient's in bed asleep, no s/s of distress or SOB noted. Bed at lowest position, call light within reach, break engaged, safety precaution is on. Nunez catheter is draining. Patient's on GT feeding at rate 30ml/s hr, aspirate 5ml fluid retention. Will continue to monitor.
[2018-10-15 07:38] LABS: BASOPHILS % (AUTO) 0.9 % (0.0-2.0); HEMATOCRIT 33.4 % (37.0-47.0); HEMOGLOBIN 11.3 G/DL (12.0-16.0); MEAN CORPUSCULAR VOLUME 93 FL (80-99); MONOCYTES % (AUTO) 4.8 % (1.0-10.0); NEUTROPHILS % (AUTO) 71.4 % (45.0-75.0); PLATELET COUNT 404 K/UL (150-450); RED BLOOD COUNT 3.59 M/UL (4.20-5.40); RED CELL DISTRIBUTION WIDTH 12.5 % (11.6-14.8); WHITE BLOOD COUNT 10.4 K/UL (4.8-10.8)
[2018-10-15 07:48] LABS: ALANINE AMINOTRANSFERASE 11 U/L (12-78); ALBUMIN 2.4 G/DL (3.4-5.0); ALBUMIN/GLOBULIN RATIO 0.5 (1.0-2.7); ALKALINE PHOSPHATASE 95 U/L (46-116); ANION GAP 9 mmol/L (5-15); ASPARTATE AMINO TRANSFERASE 17 U/L (15-37); BILIRUBIN,TOTAL 0.4 MG/DL (0.2-1.0); BLOOD UREA NITROGEN 17 mg/dL (7-18); CARBON DIOXIDE 27 MMOL/L (21-32); CHLORIDE 114 MMOL/L (98-107); CREATININE 0.6 MG/DL (0.55-1.30); POTASSIUM 3.7 MMOL/L (3.5-5.1); SODIUM 150 MMOL/L (136-145)
[2018-10-15 08:00] VITALS: BP 111/67
[2018-10-15] MEDS: Heparin 5000 units/ml inj SUBQ SCH ×2 (09:05→21:04)
[2018-10-15 12:00] VITALS: BP 130/64
[2018-10-15] MEDS ORDERED: cefTRIAXone 2 GM in D5W 110 ML IV SCH (14:00)
--- NOTE | 2018-10-15 14:00 | Consultation ---
History of Present Illness General Date patient seen: Oct 15, 2018 Chief Complaint: Fever Present Illness HPI This is a 77-year-old female well-known to me from prior admission who presented with fever, leukocytosis, worsening labs, lactic acidosis, sepsis. Patient septic on prior admission requiring the antibiotics and continued care. During that admission identified to have multiple wounds requiring care and management. during this admission still with wounds that will require care. Surgery called to evaluate and assist with care. Patient seen, patient Srikanth, chart reviewed. Lactic acidosis resolving. Leukocytosis resolved. On IV antibiotics. Imaging identified noted. Patient nonverbal baseline unable to cooperate with exam. Patient makes an audible noises. Allergies: Coded Allergies: No Known Allergies (Unverified , 02/04/17) Medication History Scheduled Acetylcysteine* (Acetylcysteine*), 100 MG HHN Q4HRT Amlodipine Besylate (Norvasc), 5 MG NG BID Amoxicillin/Potassium Clav 500-125 Tablet* (Augmentin 500-125 Tablet*), 1 TAB GT TWICE A DAY, (Reported) Ascorbic Acid* (Ascorbic Acid*), 250 MG GT TWICE A DAY Ascorbic Acid* (Vitamin C*), 500 MG GT DAILY, (Reported) Aspirin* (Aspirin*), 162 MG NG DAILY Atorvastatin Calcium* (Lipitor*), 40 MG ORAL BEDTIME Cephalexin* (Keflex*), 250 MG ORAL EVERY 6 HOURS Chlorhexidine Gluconate* (Hibiclens*), 1 APPLIC TOPIC DAILY@2000 Cholecalciferol (Vitamin D3)* (Vitamin D*), 5,000 INTLU GT DAILY Cran/Vitc/Mannose/Inulin/Brom (Uti-Stat Liquid), 3,875 MG GT DAILY, (Reported) Cyclobenzaprine Hcl* (Flexeril*), 5 MG ORAL THREE TIMES A DAY, (Reported) Docusate Sodium (Docuprene), 100 MG GT TID Docusate Sodium* (Docusate Sodium*), 100 MG GT TWICE A DAY, (Reported) Doxycycline Monohydrate* (Doxycycline Monohydrate*), 100 MG ORAL Q12H Famotidine (Famotidine), 20 MG GT BID Fish Oil (Fish Oil 1,000 mg Capsule), 1,000 MG ORAL DAILY, (Reported) Furosemide* (Lasix*), 20 MG GT DAILY Heparin Sod (Porcine) (Heparin Sodium*), 5,000 UNITS SUBQ EVERY 12 HOURS Heparin Sod (Porcine) (Heparin Sodium*), 5,000 UNITS SUBQ EVERY 12 HOURS Insulin Aspart (Novolog Flexpen), 0 UNITS SUBQ Q6HR Insulin Detemir (Levemir Flexpen), 14 UNITS SUBQ BEDTIME Lactobacillus Rhamnosus Gg* (Culturelle*), 1 CAP GT ONCE, (Reported) Magnesium Hydroxide* (Milk Of Magnesia*), 30 ML ORAL DAILY, (Reported) Metformin Hcl* (Metformin Hcl*), 500 MG GT TWICE A DAY, (Reported) Metoclopramide HCl (Metoclopramide HCl), 5 MG NG EVERY 6 HOURS Metoprolol Tartrate (Metoprolol Tartrate), 12.5 MG NG Q12HR Multivitamin Liquid* (Multi-Delyn*), 5 ML GT DAILY, (Reported) Multivitamin With Minerals (Multivitamins With Minerals*), 1 TAB ORAL DAILY, ( Reported) Nitroglycerin (Nitroglycerin Patch), 1 PATCH TDERMAL Q24H Ranitidine Hcl* (Zantac*), 150 MG GT DAILY, (Reported) Trimethoprim/Sulfamethoxazole (Bactrim Ds Tablet), 1 TAB ORAL TWICE A DAY Zinc Sulfate (Zinc Sulfate*), 220 MG ORAL DAILY, (Reported) Scheduled PRN Acetaminophen* (Acetaminophen*), 650 MG ORAL Q6H PRN for Mild Pain/Temp > 100.5, (Reported) Bisacodyl (Bisacodyl), 10 MG RC DAILY PRN for Constipation, (Reported) Bisacodyl (Dulcolax), 10 MG RECTAL DAILYPRN PRN Diphenhydramine Hcl* (Benadryl*), 25 MG ORAL Q6H PRN Ipratropium/Albuterol Sulfate (Iprat-Albut 0.5-3(2.5) Mg/3 Ml), 3 ML IH Q6HR PRN for Shortness of Breath, (Reported) Metoclopramide Hcl (Metoclopramide Hcl*), 10 MG IVP Q8H PRN Na Phos,M-B/Na Phos,Di-Ba* (Fleet Enema*), 133 ML RECTAL DAILY PRN for Constipation, (Reported) Ondansetron* (Zofran*), 4 MG IVP Q6H PRN [Acetaminophen], 650 MG GT Q4H PRN [D50w], 25 ML IV Q30M PRN Miscellaneous Medications Gemfibrozil (Gemfibrozil*), 600 MG GT, (Reported) Patient History Limited by: medical condition History Provided By: Medical Record, PMD Healthcare decision maker Resuscitation status Full Code Advanced Directive on File Past Medical/Surgical History Past Medical/Surgical History: (1) G tube feedings (2) Electrolyte imbalance (3) Altered mental status (4) H/O: CVA (cerebrovascular accident) (5) Pneumonia (6) KEL (acute kidney injury) (7) Ventilator dependence (8) Endotracheally intubated (9) Hypokalemia (10) Hypercalcemia (11) Abscess (12) Rash (13) Hypernatremia (14) HTN (hypertension) (15) Elevated troponin (16) Encounter for PEG (percutaneous endoscopic gastrostomy) (17) MRSA infection (18) PNA (pneumonia) (19) Hyperglycemia due to type 2 diabetes mellitus (20) Upper sacral area unstageable pressure ulcer (21) Large ischemic R MCA stroke (22) Perineal area gertrudis rashes extending to left and right buttocks (23) UTI (urinary tract infection) (24) Right lateral malleolus stage I pressure ulcer (25) Respiratory failure (26) DM (diabetes mellitus) (27) Hypernatremia (28) Lactic acid acidosis (29) Toxic metabolic encephalopathy (30) Dehydration (31) Sepsis Review of Systems ROS Narrative Cannot obtain given current medical condition and history Physical Exam General Appearance: no apparent distress Lines, tubes and drains: peripheral HEENT: mucous membranes moist Neck: normal inspection Respiratory/Chest: normal breath sounds, no respiratory distress, no accessory muscle use Abdomen: soft, no organomegaly, no mass, feeding tube Extremities: non-tender, other Skin Exam: warm/dry, rash, other Neurologic: alert Last 24 Hour Vital Signs Date Time Temp Pulse Resp B/P (MAP) Pulse Ox O2 Delivery O2 Flow Rate FiO2 10/15/18 12:00 98.3 77 20 130/64 (86) 100 10/15/18 12:00 76 10/15/18 09:00 Nasal Cannula 2.0 10/15/18 08:00 97.2 82 20 111/67 (82) 97 10/15/18 08:00 74 10/15/18 04:00 77 10/15/18 04:00 97.9 76 20 124/59 (80) 97 10/15/18 00:00 99.5 72 18 124/81 (95) 97 10/15/18 00:00 85 10/15/18 00:00 2.0 10/14/18 23:07 Nasal Cannula 2.0 10/14/18 20:00 82 10/14/18 20:00 96.8 84 18 118/60 (79) 98 10/14/18 18:21 82 10/14/18 18:00 97.9 87 18 127/63 (84) 97 10/14/18 17:20 77 16 112/50 98 Nasal Cannula 2.0 10/14/18 17:17 78 16 106/49 99 Nasal Cannula 2.0 10/14/18 17:15 73 16 106/49 99 Nasal Cannula 2.0 10/14/18 17:12 75 16 106/51 100 Nasal Cannula 2.0 10/14/18 17:06 75 16 111/53 99 Nasal Cannula 2.0 10/14/18 17:03 97.8 79 22 109/65 98 Nasal Cannula 2.0 Intake and Output 10/14/18 10/15/18 19:00 07:00 Intake Total 1150 ml 1430 ml Output Total 300 ml 1300 ml Balance 850 ml 130 ml Intake Oral 0 ml Free Water 0 ml 250 ml IV Total 1000 ml 1000 ml Tube Feeding 0 ml 180 ml Blood Product 0 ml Other 150 ml Output Urine Total 300 ml 1300 ml # Bowel Movements 1 Laboratory Tests Test 10/14/18 16:10 10/15/18 00:35 10/15/18 01:45 10/15/18 06:20 Lactic Acid Level 2.80 mmol/L (0.66-2.22) H 4.10 mmol/L (0.4-2.0) H 1.00 mmol/L (0.66-2.22) 1.00 mmol/L (0.4-2.0) White Blood Count 10.4 K/UL (4.8-10.8) Red Blood Count 3.59 M/UL (4.20-5.40) L Hemoglobin 11.3 G/DL (12.0-16.0) L Hematocrit 33.4 % (37.0-47.0) L Mean Corpuscular Volume 93 FL (80-99) Mean Corpuscular Hemoglobin 31.6 PG (27.0-31.0) H Mean Corpuscular Hemoglobin Concent 33.9 G/DL (32.0-36.0) Red Cell Distribution Width 12.5 % (11.6-14.8) Platelet Count 404 K/UL (150-450) Mean Platelet Volume 6.5 FL (6.5-10.1) Neutrophils (%) (Auto) 71.4 % (45.0-75.0) Lymphocytes (%) (Auto) 22.0 % (20.0-45.0) Monocytes (%) (Auto) 4.8 % (1.0-10.0) Eosinophils (%) (Auto) 1.0 % (0.0-3.0) Basophils (%) (Auto) 0.9 % (0.0-2.0) Sodium Level 150 MMOL/L (136-145) H Potassium Level 3.7 MMOL/L (3.5-5.1) Chloride Level 114 MMOL/L (98-107) H Carbon Dioxide Level 27 MMOL/L (21-32) Anion Gap 9 mmol/L (5-15) Blood Urea Nitrogen 17 mg/dL (7-18) Creatinine 0.6 MG/DL (0.55-1.30) Estimat Glomerular Filtration Rate mL/min (>60) Glucose Level 190 MG/DL (74-106) H Calcium Level 9.0 MG/DL (8.5-10.1) Total Bilirubin 0.4 MG/DL (0.2-1.0) Aspartate Amino Transf (AST/SGOT) 17 U/L (15-37) Alanine Aminotransferase (ALT/SGPT) 11 U/L (12-78) L Alkaline Phosphatase 95 U/L (46-116) Total Protein 7.6 G/DL (6.4-8.2) Albumin 2.4 G/DL (3.4-5.0) L Globulin 5.2 g/dL Albumin/Globulin Ratio 0.5 (1.0-2.7) L Microbiology Date/Time Source Procedure Growth Status 10/14/18 14:25 Nasal Nares - Final Complete 10/14/18 14:25 Nasal Nares - Final Complete Height (Feet): 5 Height (Inches): 2.00 Weight (Pounds): 120 Medications Current Medications Medications (Trade) Dose Ordered Sig/Wayne Route PRN Reason Start Time Stop Time Status Last Admin Dose Admin Acetaminophen (Tylenol) 650 mg Q4H PRN ORAL fever 10/14/18 17:15 11/13/18 17:14 Azithromycin 500 mg/Dextrose 275 ml @ 275 mls/hr Q24H IV 10/14/18 18:30 10/21/18 18:29 10/14/18 18:35 Ceftriaxone Sodium 2 gm/ Dextrose 110 ml @ 220 mls/hr Q24H IV 10/15/18 14:00 10/22/18 13:59 Dextrose (Dextrose 50%) 25 ml Q30M PRN IV Hypoglycemia 10/15/18 01:45 11/14/18 01:44 Dextrose (Dextrose 50%) 50 ml Q30M PRN IV Hypoglycemia 10/15/18 01:45 11/14/18 01:44 Heparin Sodium (Porcine) (Heparin 5000 units/ml) 5,000 units EVERY 12 HOURS SUBQ 10/14/18 21:00 11/13/18 20:59 10/15/18 09:05 Hydromorphone HCl (Dilaudid) 0.5 mg Q6H PRN IVP For Pain 10/14/18 17:15 10/21/18 17:14 Insulin Aspart (NovoLOG) BEFORE MEALS AND HS SUBQ 10/15/18 06:30 11/14/18 06:29 10/15/18 11:47 Lactated Ringer's 1,000 ml @ 125 mls/hr Q8H IV 10/14/18 18:00 11/13/18 17:59 10/15/18 05:45 Pantoprazole (Protonix) 40 mg DAILY ORAL 10/15/18 09:00 11/14/18 08:59 10/15/18 09:04 Assessment/Plan Problem List: (1) G tube feedings ICD Codes: Z93.1 - Gastrostomy status SNOMED: 402252035, 864299655, 849902390 (2) Rash ICD Codes: R21 - Rash and other nonspecific skin eruption SNOMED: 610660070 (3) Sepsis Assessment & Plan: improving iv fluids tube feeds iv abx will monitor trend labs thank you ICD Codes: A41.9 - Sepsis, unspecified organism SNOMED: 20154554 (4) Lactic acid acidosis Assessment & Plan: resolved with resuscitation ICD Codes: E87.2 - Acidosis SNOMED: 01841712 (5) Upper sacral area unstageable pressure ulcer Assessment & Plan: Patient presents with multiple wounds. partial thickness L ear wound. Skin is clean and intact. Full thickness sacral pressure injury with slough centrally at sacrococcygeal area with surrounding pink granulation.(L)Area of slough measures (L)1.4cm x (W) 1cm. Total pressure injury measures (L)4cm x (W)5.5cm. R and L heels are soft ,pink and each heel are easily blanchable. Tx.Plan: Cleanse sacral wound with saline. Apply Therahoney.Apply Moisture Barrier Paste to periwound. Cover with Optifoam drsg. Change every 3 days and prn. Apply Cavilon Skin Barrier to both heels. Cover each heel with Opifoam drsg. Change every 7 days and prn. APM/LOU Mattress overlay. Reposition at least every 2hours or as tolerated. Off-load heels with pillow. Akhil Jackson Oct 15, 2018 14:00
--- NOTE | 2018-10-15 15:00 | NUR ---
NURSE NOTES: Assessed patient's wounds and followed 'javy Jackson's order. Sacral pressure ulcer is cleansed with saline, applied therahoney and moisture barrier paste to periwound and covered with optifoam. Around the area, skin is red but blanchable. Applied optifoam and cavilon wipes on bilateral heels.
--- NOTE | 2018-10-15 15:51 | Infectious Diseases Prog Note ---
Assessment/Plan Assessment/Plan Full consult dictated: A) 1) gram neg uti, complicated ut, lgt, mild leukocytosis, sepsis 2) pna vs atx, ? CAP, aspiration pna risk 3) pmh noted 4) allergies - nkda 5) doubt wounds acutely infected P) 1) rocephin, azithromycin, flagyl added for aspiration pna coverage 2) f/u chest x-ray, f/u on culture 3) monitor labs 4) wound care per surgery 5) continue treatment per primary team 6) thank you Subjective Allergies: Coded Allergies: No Known Allergies (Unverified , 02/04/17) Objective Vital Signs Last 24 Hour Vital Signs Date Time Temp Pulse Resp B/P (MAP) Pulse Ox O2 Delivery O2 Flow Rate FiO2 10/15/18 12:00 98.3 77 20 130/64 (86) 100 10/15/18 12:00 76 10/15/18 09:00 Nasal Cannula 2.0 10/15/18 08:00 97.2 82 20 111/67 (82) 97 10/15/18 08:00 74 10/15/18 04:00 77 10/15/18 04:00 97.9 76 20 124/59 (80) 97 10/15/18 00:00 99.5 72 18 124/81 (95) 97 10/15/18 00:00 85 10/15/18 00:00 2.0 10/14/18 23:07 Nasal Cannula 2.0 10/14/18 20:00 82 10/14/18 20:00 96.8 84 18 118/60 (79) 98 10/14/18 18:21 82 10/14/18 18:00 97.9 87 18 127/63 (84) 97 10/14/18 17:20 77 16 112/50 98 Nasal Cannula 2.0 10/14/18 17:17 78 16 106/49 99 Nasal Cannula 2.0 10/14/18 17:15 73 16 106/49 99 Nasal Cannula 2.0 10/14/18 17:12 75 16 106/51 100 Nasal Cannula 2.0 10/14/18 17:06 75 16 111/53 99 Nasal Cannula 2.0 10/14/18 17:03 97.8 79 22 109/65 98 Nasal Cannula 2.0 Height (Feet): 5 Height (Inches): 2.00 Weight (Pounds): 120 Microbiology Date/Time Source Procedure Growth Status 10/14/18 14:25 Nasal Nares - Final Complete 10/14/18 14:25 Nasal Nares - Final Complete 10/14/18 13:20 Urine,Clean Catch Urine Culture - Preliminary Gram Negative Bacillus 1 Resulted Laboratory Tests Test 10/14/18 16:10 10/15/18 00:35 10/15/18 01:45 10/15/18 06:20 Lactic Acid Level 2.80 mmol/L (0.66-2.22) H 4.10 mmol/L (0.4-2.0) H 1.00 mmol/L (0.66-2.22) 1.00 mmol/L (0.4-2.0) White Blood Count 10.4 K/UL (4.8-10.8) Red Blood Count 3.59 M/UL (4.20-5.40) L Hemoglobin 11.3 G/DL (12.0-16.0) L Hematocrit 33.4 % (37.0-47.0) L Mean Corpuscular Volume 93 FL (80-99) Mean Corpuscular Hemoglobin 31.6 PG (27.0-31.0) H Mean Corpuscular Hemoglobin Concent 33.9 G/DL (32.0-36.0) Red Cell Distribution Width 12.5 % (11.6-14.8) Platelet Count 404 K/UL (150-450) Mean Platelet Volume 6.5 FL (6.5-10.1) Neutrophils (%) (Auto) 71.4 % (45.0-75.0) Lymphocytes (%) (Auto) 22.0 % (20.0-45.0) Monocytes (%) (Auto) 4.8 % (1.0-10.0) Eosinophils (%) (Auto) 1.0 % (0.0-3.0) Basophils (%) (Auto) 0.9 % (0.0-2.0) Sodium Level 150 MMOL/L (136-145) H Potassium Level 3.7 MMOL/L (3.5-5.1) Chloride Level 114 MMOL/L (98-107) H Carbon Dioxide Level 27 MMOL/L (21-32) Anion Gap 9 mmol/L (5-15) Blood Urea Nitrogen 17 mg/dL (7-18) Creatinine 0.6 MG/DL (0.55-1.30) Estimat Glomerular Filtration Rate mL/min (>60) Glucose Level 190 MG/DL (74-106) H Calcium Level 9.0 MG/DL (8.5-10.1) Total Bilirubin 0.4 MG/DL (0.2-1.0) Aspartate Amino Transf (AST/SGOT) 17 U/L (15-37) Alanine Aminotransferase (ALT/SGPT) 11 U/L (12-78) L Alkaline Phosphatase 95 U/L (46-116) Total Protein 7.6 G/DL (6.4-8.2) Albumin 2.4 G/DL (3.4-5.0) L Globulin 5.2 g/dL Albumin/Globulin Ratio 0.5 (1.0-2.7) L Current Medications Medications (Trade) Dose Ordered Sig/Wayne Route PRN Reason Start Time Stop Time Status Last Admin Dose Admin Acetaminophen (Tylenol) 650 mg Q4H PRN ORAL fever 10/14/18 17:15 11/13/18 17:14 Azithromycin 500 mg/Dextrose 275 ml @ 275 mls/hr Q24H IV 10/14/18 18:30 10/21/18 18:29 10/14/18 18:35 Ceftriaxone Sodium 2 gm/ Dextrose 110 ml @ 220 mls/hr Q24H IV 10/15/18 14:00 10/22/18 13:59 10/15/18 14:06 Dextrose (Dextrose 50%) 25 ml Q30M PRN IV Hypoglycemia 10/15/18 01:45 11/14/18 01:44 Dextrose (Dextrose 50%) 50 ml Q30M PRN IV Hypoglycemia 10/15/18 01:45 11/14/18 01:44 Heparin Sodium (Porcine) (Heparin 5000 units/ml) 5,000 units EVERY 12 HOURS SUBQ 10/14/18 21:00 11/13/18 20:59 10/15/18 09:05 Hydromorphone HCl (Dilaudid) 0.5 mg Q6H PRN IVP For Pain 10/14/18 17:15 10/21/18 17:14 Insulin Aspart (NovoLOG) BEFORE MEALS AND HS SUBQ 10/15/18 06:30 10/2/19 06:29 10/15/18 11:47 Lactated Ringer's 1,000 ml @ 125 mls/hr Q8H IV 10/14/18 18:00 11/13/18 17:59 10/15/18 14:06 Metronidazole (Flagyl) 500 mg EVERY 8 HOURS ORAL 10/15/18 22:00 10/22/18 21:59 UNV Pantoprazole (Protonix) 40 mg DAILY ORAL 10/15/18 09:00 11/14/18 08:59 10/15/18 09:04 Milton Valladares MD Oct 15, 2018 15:51
[2018-10-15 16:00] VITALS: BP 132/56
[2018-10-15] MEDS: metroNIDAZOLE 500mg tab ORAL SCH ×2 (16:11→21:03)
--- NOTE | 2018-10-15 16:41 | General Progress Note ---
Assessment/Plan Problem List: (1) UTI (urinary tract infection) ICD Codes: N39.0 - Urinary tract infection, site not specified SNOMED: 60387720 (2) Sepsis ICD Codes: A41.9 - Sepsis, unspecified organism SNOMED: 16299003 (3) Toxic metabolic encephalopathy ICD Codes: G92 - Toxic encephalopathy SNOMED: 000221405 (4) Lactic acid acidosis ICD Codes: E87.2 - Acidosis SNOMED: 99572638 (5) Hypernatremia ICD Codes: E87.0 - Hyperosmolality and hypernatremia SNOMED: 094183790 (6) Upper sacral area unstageable pressure ulcer (7) PNA (pneumonia) ICD Codes: J18.9 - Pneumonia, unspecified organism SNOMED: 675938206 Status: progressing Assessment/Plan: 77 year old [place]ids from [place] with fever, admitted to telemetry for sepsis secondary to PNA vs UTI vs sacra decub ulcer infection ( less likely), toxic metabolic encephalopathy, severe dehydration, lactic acidosis and hypernatremia. 1. Sepsis due to PNA vs. UTI. Upon reviewing the chart she has a history of MRSA PNA, klebsiella PNA and aspiration risk. CXR showed segmental atelectasis versus infiltrate in the left lung base mildly increased interstitial markings. She received ceftriaxone and IV flagyl in the ER. Would give one dose of Vancomycin.Also Azithromycin for atypical coverage. IV hydration. Trend lactic acid- already improved to 2.8, from 4. follow up blood and sputum cultures. These antibiotics should cover UTI as well.ID consult with Dr. Solis 2. Toxic metabolic encephalopathy. Multifactorial. Has had work up with MRI and EEG previous admission. 3. Lactic acidosis and severe dehydration with contraction alkalosis (? furosemide use). Will trend lactate. Continue IV LR @125ml/hr. Hold Furosemide 4. Hypernatremia. Add Free water via PEG 5. Neuro: history of previous CVAs. Continue Lipitor, Hold antihypertensive medications for now. 6. Thrombocytosis- Likely reactive, will monitor 7. Sacral decub: Wound care, consult with Dr. Jackson 8. Paraprotein gap of 5.8, likely due to dehydration. Will repeat CMP after hydration Code status: full code (POLST reviewed) Time of this note may not necessarily reflect time of encounter. I spent 70 minutes on this encounter. 50% or greater on care coordination. I spent 60 minutes on prolonged evaluation and management service before direct patient care. Subjective Date patient seen: Oct 15, 2018 ROS Limited/Unobtainable: Yes Allergies: Coded Allergies: No Known Allergies (Unverified , 02/04/17) Subjective baseline non verbal today only arousble with painful stimuli. Objective Last 24 Hour Vital Signs Date Time Temp Pulse Resp B/P (MAP) Pulse Ox O2 Delivery O2 Flow Rate FiO2 10/15/18 16:00 97.2 74 20 132/56 (81) 97 10/15/18 12:00 98.3 77 20 130/64 (86) 100 10/15/18 12:00 76 10/15/18 09:00 Nasal Cannula 2.0 10/15/18 08:00 97.2 82 20 111/67 (82) 97 10/15/18 08:00 74 10/15/18 04:00 77 10/15/18 04:00 97.9 76 20 124/59 (80) 97 10/15/18 00:00 99.5 72 18 124/81 (95) 97 10/15/18 00:00 85 10/15/18 00:00 2.0 10/14/18 23:07 Nasal Cannula 2.0 10/14/18 20:00 82 10/14/18 20:00 96.8 84 18 118/60 (79) 98 10/14/18 18:21 82 10/14/18 18:00 97.9 87 18 127/63 (84) 97 10/14/18 17:20 77 16 112/50 98 Nasal Cannula 2.0 10/14/18 17:17 78 16 106/49 99 Nasal Cannula 2.0 10/14/18 17:15 73 16 106/49 99 Nasal Cannula 2.0 10/14/18 17:12 75 16 106/51 100 Nasal Cannula 2.0 10/14/18 17:06 75 16 111/53 99 Nasal Cannula 2.0 10/14/18 17:03 97.8 79 22 109/65 98 Nasal Cannula 2.0 Intake and Output 10/14/18 10/15/18 19:00 07:00 Intake Total 1150 ml 1430 ml Output Total 300 ml 1300 ml Balance 850 ml 130 ml Intake Oral 0 ml Free Water 0 ml 250 ml IV Total 1000 ml 1000 ml Tube Feeding 0 ml 180 ml Blood Product 0 ml Other 150 ml Output Urine Total 300 ml 1300 ml # Bowel Movements 1 Laboratory Tests 10/15/18 00:35: Lactic Acid Level 4.10H 10/15/18 01:45: Lactic Acid Level 1.00 10/15/18 06:20: Lactic Acid Level 1.00, White Blood Count 10.4, Red Blood Count 3.59L, Hemoglobin 11.3L, Hematocrit 33.4L, Mean Corpuscular Volume 93, Mean Corpuscular Hemoglobin 31.6H, Mean Corpuscular Hemoglobin Concent 33.9, Red Cell Distribution Width 12.5, Platelet Count 404, Mean Platelet Volume 6.5, Neutrophils (%) (Auto) 71.4, Lymphocytes (%) (Auto) 22.0, Monocytes (%) (Auto) 4.8, Eosinophils (%) (Auto) 1.0, Basophils (%) (Auto) 0.9, Sodium Level 150H, Potassium Level 3.7, Chloride Level 114H, Carbon Dioxide Level 27, Anion Gap 9, Blood Urea Nitrogen 17, Creatinine 0.6, Estimat Glomerular Filtration Rate , Glucose Level 190H, Calcium Level 9.0, Total Bilirubin 0.4, Aspartate Amino Transf (AST/SGOT) 17, Alanine Aminotransferase (ALT/SGPT) 11L, Alkaline Phosphatase 95, Total Protein 7.6, Albumin 2.4L, Globulin 5.2, Albumin/Globulin Ratio 0.5L, Mycoplasma pneumoniae IgG Antibody [Pending], Mycoplasma pneumoniae IgM Ab Titer [Pending] Height (Feet): 5 Height (Inches): 2.00 Weight (Pounds): 120 Abdullahi Muhammad M.D. Oct 15, 2018 16:41
[2018-10-15] MEDS: Azithromycin 500 MG in D5W 275 ML IV SCH (17:38)
--- NOTE | 2018-10-15 19:15 | NUR ---
HAND-OFF: Report given to FELIX Sepulveda. Plan of care endorsed. Patient's in stable condition.
[2018-10-15] MEDS ORDERED: NORVASC5 MG GT (19:17)
[2018-10-15] MEDS ORDERED: ASPIRIN81 MG GT (19:17)
--- NOTE | 2018-10-15 19:25 | NUR ---
NURSE NOTES: Pt received from FELIX Flores alert and oriented x0, nonverbal with no acute s/s of distress noted. On 2L NC, breathing even and unlabored. IV site asymptomatic and patent on L hand 20g, running to LR at 125 ml/hr. Nunez catheter draining to clear and yellow urine. Bed in lowest position, bed alarm on. Call light and belongings within reach. furnace tapper - Sinus Rhythm.
[2018-10-15] MEDS ORDERED: VITAMIN D250000 UNI1 GT (19:27)
[2018-10-15] MEDS ORDERED: ZOFRAN4 M3 ORAL (19:27)
[2018-10-15] MEDS ORDERED: METOCLOPRA10 MG/10 M GT (19:27)
[2018-10-15] MEDS ORDERED: NORCO 5-325 TA1 EACH ORAL (19:27)
[2018-10-15] MEDS ORDERED: ACETAMINOP160 MG/5 M GT (19:27)
[2018-10-15] MEDS ORDERED: DOXYCYCLINE MO100 MG GT (19:34)
[2018-10-15] MEDS ORDERED: DIPHENHYDRAMINE25 M1 GT (19:34)
[2018-10-15] MEDS ORDERED: MILK OF MA400 MG/51 GT (19:38)
[2018-10-15 20:00] VITALS: BP 135/61
--- NOTE | 2018-10-15 21:00 | Consultation ---
DATE OF CONSULTATION: 10/15/2018 INFECTIOUS DISEASE CONSULTATION CONSULTING PHYSICIAN: Milton Valladares M.D. ATTENDING PHYSICIAN: Yamileth Yates M.D. REFERRING PHYSICIAN: Yamileth Yates M.D. I was consulted by one of his associates, Dr. Abdullahi Muhammad. REASON FOR CONSULTATION: Complicated urinary tract infection, possible sepsis, pneumonia, mild leukocytosis, and fevers. CHIEF COMPLAINT: The patient's chief complaint coming in to the hospital is sepsis and weakness. HISTORY OF PRESENT ILLNESS: This is a 77-year-old female, who is responsive, but is not a very good historian. The patient presents with sepsis to [facility] and was noted to have an elevated lactic acid of 4.0. The patient has low-grade fevers and mild leukocytosis. Workup shows that she has urinalysis that is 3+ leukocyte esterase and 5 to 10 white blood cells. Urine culture with gram-negative bacilli greater than 100,000. The patient also could have pneumonia. Infectious Disease consultation was requested for antibiotic management. She is on Rocephin, azithromycin, and Flagyl for anaerobic coverage for possible aspiration pneumonia. MAR was noted. Orders were noted. Notes and records were reviewed. REVIEW OF SYSTEMS: CONSTITUTIONAL: The patient I do not believe has a central line. She does have a Nunez. She has generalized fatigue, opens eyes, but mostly nonverbal. HEAD AND NECK: Cannot assess. CARDIAC: No pressors. GASTROINTESTINAL: No nausea, vomiting, or diarrhea. GENITOURINARY: She has a Nunez. PULMONARY: Mild cough and congestion. No hemoptysis or secretions. SKIN: No new rash. EXTREMITY: No extremity pain. NEUROLOGIC: No seizures. She has acute decubitus and wounds that were reviewed. Generalized fatigue and weakness. No pressors. PAST MEDICAL HISTORY: The patient's past medical history includes the following. The patient has a past medical history of recurrent urinary tract infection. She has history of cardiac problems, history of hypertension, history of diabetes mellitus, history of benign neoplasm meninges, history of PEG and dysphagia, history of CVA, history of hemiparesis, history of encephalopathy, confusion, aspiration risk, and history of dementia. She has history of decubitus. 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 MEDICATIONS: Upon reviewing the MAR, she is on the following medications. She is on Rocephin, Flagyl, pantoprazole, insulin, dextrose, IV fluids, heparin, azithromycin, Lactated Ringer's, acetaminophen, and hydromorphone. Outside medications were noted and reconciliated. ALLERGIES: She has no drug allergies. No antibiotic allergies. SOCIAL HISTORY: Negative for smoking, alcohol, or drug abuse. FAMILY HISTORY: Noncontributory. Negative for tuberculosis or cancer. PHYSICAL EXAMINATION: VITAL SIGNS: T-max 99.5, temperature currently is 98.3, pulse rate 77, respirations 20, blood pressure 130/64, and saturation 100% on FiO2 2 liters. Heart rate on admission was 98. Respiratory rate on admission was 22. GENERAL: Responsive, alert, in mild shortness of breath, congestion, but no acute distress. HEAD AND NECK: Oral exam, no thrush. Eye exam, no icterus. Neck is supple. No JVD. Normocephalic. HEART: Regular. No gallop or murmur. No friction rub. ABDOMEN: Soft. Positive bowel sounds. Nontender. LUNGS: A few bilateral rhonchi. No definite rales. Possible rales at the bases. SKIN: No new rash. Wounds are covered, however, decubitus were reviewed mostly, but not acutely infected looking. MUSCULOSKELETAL: No effusion. Legs are without cellulitis. PERIPHERAL VASCULAR: No gangrene. GENITOURINARY: She has a Nunez. Urine is cloudy. LINE SITES: Without phlebitis. NEUROLOGIC: Generalized weakness, responsive, alert, and opens eyes. LABORATORY AND DIAGNOSTIC DATA: Laboratory data is as follows: UA had 3+ leukocyte esterase and positive nitrite. Creatinine 0.6. White count 10.4 and hemoglobin 11.3. White count on admission 11.7. Urine culture grew greater than 100,000 gram-negative bacilli. Chest x-ray shows atelectasis versus infiltrate in the left lung base. Lactic acid was 4.1, the highest one. Initially was 4.0. ASSESSMENT AND PLAN: 1. The patient has gram-negative complicated UTI, possible sepsis, elevated lactic acid level, possible pneumonia with low-grade fevers and mild leukocytosis. The patient is at high risk for aspiration and healthcare-acquired pneumonia versus community-acquired pneumonia. At this time, we will continue Rocephin, Flagyl, and azithromycin for gram-negative UTI, sepsis, and pneumonia. Check sputum culture for Legionella mycoplasma and check followup laboratories and chest x-ray. Check urine culture. Continue Rocephin, Flagyl, and azithromycin for sepsis, UTI, and pneumonia pending following culture results. 2. The patient has history of diabetes. 3. Hypertension. 4. Blood sugar and blood pressure treatment per primary for diabetes and hypertension. 5. The patient has history of stroke and hemiparesis. 6. History of benign neoplasm meninges. 7. Dysphagia, G-tube. 8. Aspiration risk. 9. Skin care protocol. 10. History of encephalopathy and confusion. 11. Dementia. 12. Encephalopathy. 13. History of sepsis and respiratory failure. 14. Lactic acidosis. 15. History of renal failure. 16. No known drug allergies. 17. Social history is negative. 18. Family history is noncontributory. 19. MAR was noted. 20. Case was discussed with RN. 21. Continue treatment per primary consultants. 22. Skin care per Surgery. Milton Valladares M.D. DR: JULIEN JOB#: [id number] CC:
[2018-10-16] VITALS: BP 120/56
[2018-10-16] MEDS: LR 1000ml 1,000 ML IV SCH ×3 (02:39→17:21)
[2018-10-16 04:00] VITALS: BP 105/68
[2018-10-16] MEDS: metroNIDAZOLE 500mg tab ORAL SCH (06:16)
[2018-10-16] MEDS: NovoLOG Insulin Flexpen SUBQ SCH ×4 (06:20→23:41)
--- NOTE | 2018-10-16 07:20 | NUR ---
NURSE NOTES: Nurse report given by FELIX Sepulveda. AO x0, nonverbal with no acute s/s of distress or SOB noted. On 2L NC, breathing even and unlabored. IV site asymptomatic and patent on L hand 20g, running to LR at 125 ml/hr. Nunez catheter draining to clear and yellow urine. Bed in lowest position, bed alarm on, call light within reach, safety precaution on, side rails x 2. Will continue to continue.
[2018-10-16 08:00] VITALS: BP 145/66
[2018-10-16 08:40] LABS: BASOPHILS % (AUTO) 0.6 % (0.0-2.0); EOSINOPHILS % (AUTO) 1.2 % (0.0-3.0); HEMATOCRIT 33.1 % (37.0-47.0); HEMOGLOBIN 10.7 G/DL (12.0-16.0); LYMPHOCYTES % (AUTO) 19.5 % (20.0-45.0); MEAN CORPUSCULAR VOLUME 96 FL (80-99); MONOCYTES % (AUTO) 5.7 % (1.0-10.0); NEUTROPHILS % (AUTO) 73.1 % (45.0-75.0); PLATELET COUNT 401 K/UL (150-450); RED BLOOD COUNT 3.44 M/UL (4.20-5.40); RED CELL DISTRIBUTION WIDTH 12.9 % (11.6-14.8); WHITE BLOOD COUNT 11.2 K/UL (4.8-10.8)
[2018-10-16 08:53] LABS: ALANINE AMINOTRANSFERASE 11 U/L (12-78); ALBUMIN 2.2 G/DL (3.4-5.0); ALBUMIN/GLOBULIN RATIO 0.5 (1.0-2.7); ALKALINE PHOSPHATASE 79 U/L (46-116); ANION GAP 9 mmol/L (5-15); ASPARTATE AMINO TRANSFERASE 13 U/L (15-37); BILIRUBIN,TOTAL 0.3 MG/DL (0.2-1.0); BLOOD UREA NITROGEN 12 mg/dL (7-18); CARBON DIOXIDE 28 MMOL/L (21-32); CHLORIDE 111 MMOL/L (98-107); CREATININE 0.5 MG/DL (0.55-1.30); POTASSIUM 3.5 MMOL/L (3.5-5.1); SODIUM 148 MMOL/L (136-145)
[2018-10-16] MEDS: Heparin 5000 units/ml inj SUBQ SCH ×2 (08:59→21:08)
--- NOTE | 2018-10-16 09:10 | NUR ---
NURSE NOTES: spoke with dr Muhammad, and received a order okay to transfer to med surg
[2018-10-16] MEDS ORDERED: Betadine 4oz Bottle TOPIC PRN (11:30)
[2018-10-16 12:00] VITALS: BP 118/59
--- NOTE | 2018-10-16 12:43 | General Progress Note ---
Assessment/Plan Problem List: (1) UTI (urinary tract infection) ICD Codes: N39.0 - Urinary tract infection, site not specified SNOMED: 93808682 (2) Sepsis ICD Codes: A41.9 - Sepsis, unspecified organism SNOMED: 10155054 (3) Toxic metabolic encephalopathy ICD Codes: G92 - Toxic encephalopathy SNOMED: 332893635 (4) Lactic acid acidosis ICD Codes: E87.2 - Acidosis SNOMED: 93662412 (5) Hypernatremia ICD Codes: E87.0 - Hyperosmolality and hypernatremia SNOMED: 887481497 (6) Upper sacral area unstageable pressure ulcer (7) PNA (pneumonia) ICD Codes: J18.9 - Pneumonia, unspecified organism SNOMED: 893267630 Status: progressing Assessment/Plan: 77 year old female [place] multiple com[place]ids from [place] with fever, admitted to telemetry for sepsis secondary to PNA vs UTI vs sacra decub ulcer infection ( less likely), toxic metabolic encephalopathy, severe dehydration, lactic acidosis and hypernatremia. 1. Sepsis due to PNA vs. UTI. Upon reviewing the chart she has a history of MRSA PNA, klebsiella PNA and aspiration risk. CXR showed segmental atelectasis versus infiltrate in the left lung base mildly increased interstitial markings..ID consult with Dr. Solis, vite. Urine culture with pseudomonas, antibiotics will change from ceftriaxone, azithromycin, flagyl to Meropenem and Azithromycin. Urine legionella and mycoplasma pending. 2. Toxic metabolic encephalopathy. Multifactorial. Has had work up with MRI and EEG previous admission. 3. Lactic acidosis and severe dehydration with contraction alkalosis (? furosemide use). Will trend lactate. Continue IV LR @125ml/hr. Hold Furosemide 4. Hypernatremia. Added Free water via PEG. Resolving 5. Neuro: history of previous CVAs. Continue Lipitor, Hold antihypertensive medications for now. 6. Thrombocytosis- Likely reactive, will monitor 7. Sacral decub: Wound care, consult with Dr. Jackson 8. Paraprotein gap of 5.8, likely due to dehydration. Resolved Code status: full code (POLST reviewed) Time of this note may not necessarily reflect time of encounter. I spent 40 minutes on this encounter. 50% or greater on care coordination. Subjective Date patient seen: Oct 16, 2018 ROS Limited/Unobtainable: Yes Allergies: Coded Allergies: No Known Allergies (Unverified , 02/04/17) Subjective baseline non verbal Today more awake Objective Last 24 Hour Vital Signs Date Time Temp Pulse Resp B/P (MAP) Pulse Ox O2 Delivery O2 Flow Rate FiO2 10/16/18 09:00 Nasal Cannula 2.0 10/16/18 08:00 98.6 72 16 145/66 (92) 99 10/16/18 08:00 66 10/16/18 04:00 98.1 78 18 105/68 (80) 98 10/16/18 04:00 62 10/16/18 00:00 67 10/16/18 00:00 98.7 69 18 120/56 (77) 99 10/15/18 21:00 Nasal Cannula 2.0 10/15/18 20:00 68 10/15/18 20:00 98.7 77 20 135/61 (85) 99 10/15/18 16:00 68 10/15/18 16:00 97.2 74 20 132/56 (81) 97 Intake and Output 10/15/18 10/16/18 19:00 07:00 Intake Total 520 ml 1855 ml Output Total 800 ml Balance 520 ml 1055 ml Free Water 250 ml 250 ml IV Total 1275 ml Tube Feeding 270 ml 330 ml Output Urine Total 800 ml Laboratory Tests 10/15/18 17:15: Urine Legionella Antigen [Pending] 10/16/18 08:05: White Blood Count 11.2H, Red Blood Count 3.44L, Hemoglobin 10.7L, Hematocrit 33.1L, Mean Corpuscular Volume 96, Mean Corpuscular Hemoglobin 31.1H, Mean Corpuscular Hemoglobin Concent 32.4, Red Cell Distribution Width 12.9, Platelet Count 401, Mean Platelet Volume 7.0, Neutrophils (%) (Auto) 73.1, Lymphocytes (% ) (Auto) 19.5L, Monocytes (%) (Auto) 5.7, Eosinophils (%) (Auto) 1.2, Basophils (%) (Auto) 0.6, Sodium Level 148H, Potassium Level 3.5, Chloride Level 111H, Carbon Dioxide Level 28, Anion Gap 9, Blood Urea Nitrogen 12, Creatinine 0.5L, Estimat Glomerular Filtration Rate , Glucose Level 206H, Calcium Level 9.0, Total Bilirubin 0.3, Aspartate Amino Transf (AST/SGOT) 13L, Alanine Aminotransferase (ALT/SGPT) 11L, Alkaline Phosphatase 79, Total Protein 6.8, Albumin 2.2L, Globulin 4.6, Albumin/Globulin Ratio 0.5L URINE CULTURE Preliminary Organism 1 PSEUDOMONAS AERUGINOSA COLONY COUNT: >100,000 CFU/ML Organism 2 YEAST COLONY COUNT: 40,000 - 50,000 CFU/ML PSE AERUGI M.I.C. RX --------- --- CEFTAZIDIME >=64 R CEFEPIME 16 I CIPROFLOXACIN <=0.25 S GENTAMICIN <=1 S LEVOFLOXACIN 1 S IMIPENEM 1 S AMIKACIN <=2 S Height (Feet): 5 Height (Inches): 2.00 Weight (Pounds): 120 Objective General Appearance: Chronically Ill, in no acute distress. non verbal Head: normocephalic, poor dentition ENT: dry mucus membranes Neck: limited range of motion, supple, no JVD Respiratory: lungs clear, normal breath sounds Cardiovascular: RRR, S1S2, no m/r/g Gastrointestinal: non tender, soft, no mass, other - gtube stoma CDI Musculoskeletal: decreased range of motion Neurologic: responsive, aphasic, +hemiplegia Skin: Stage 4 sacral decub ulcer, clean, no discharge or odor Abdullahi Muhammad M.D. Oct 16, 2018 12:43
--- NOTE | 2018-10-16 13:26 | Infectious Diseases Prog Note ---
Assessment/Plan Assessment/Plan A) 1) peudomonas uti, complicated uti, lgt, mild leukocytosis, sepsis, fungal urine culture is likely colonizer 2) pna vs atx, ? CAP, aspiration pna risk 3) pmh noted 4) allergies - nkda 5) doubt wounds acutely infected P) 1) meropen and azithromycin (pseudomonas resistant to zosyn and intermediate to cefepime) 2) f/u chest x-ray, f/u on culture 3) monitor labs 4) wound care per surgery 5) continue treatment per primary team 6) d/w microbiology Subjective Constitutional: Denies: fever Respiratory: Denies: shortness of breath Cardiovascular: Reports: chest pain Gastrointestinal/Abdominal: Denies: nausea, vomiting Allergies: Coded Allergies: No Known Allergies (Unverified , 02/04/17) Objective Vital Signs Last 24 Hour Vital Signs Date Time Temp Pulse Resp B/P (MAP) Pulse Ox O2 Delivery O2 Flow Rate FiO2 10/16/18 09:00 Nasal Cannula 2.0 10/16/18 08:00 98.6 72 16 145/66 (92) 99 10/16/18 08:00 66 10/16/18 04:00 98.1 78 18 105/68 (80) 98 10/16/18 04:00 62 10/16/18 00:00 67 10/16/18 00:00 98.7 69 18 120/56 (77) 99 10/15/18 21:00 Nasal Cannula 2.0 10/15/18 20:00 68 10/15/18 20:00 98.7 77 20 135/61 (85) 99 10/15/18 16:00 68 10/15/18 16:00 97.2 74 20 132/56 (81) 97 Height (Feet): 5 Height (Inches): 2.00 Weight (Pounds): 120 General Appearance: no acute distress HEENT: normocephalic, atraumatic, anicteric Respiratory/Chest: lungs clear, normal breath sounds, no respiratory distress Cardiovascular: normal rate, regular rhythm Abdomen: soft, non tender, no organomegaly, non distended Microbiology Date/Time Source Procedure Growth Status 10/14/18 13:30 Blood Blood Culture - Preliminary NO GROWTH AFTER 24 HOURS Resulted 10/14/18 13:15 Blood Blood Culture - Preliminary NO GROWTH AFTER 24 HOURS Resulted 10/14/18 14:25 Nasal Nares - Final Complete 10/14/18 14:25 Nasal Nares - Final Complete 10/15/18 17:15 Urine,Clean Catch Urine Culture - Preliminary Gram Negative Bacillus 1 Resulted 10/14/18 13:20 Urine,Clean Catch Urine Culture - Preliminary Pseudomonas Aeruginosa YEAST Resulted Laboratory Tests Test 10/15/18 17:15 10/16/18 08:05 Urine Legionella Antigen Pending White Blood Count 11.2 K/UL (4.8-10.8) H Red Blood Count 3.44 M/UL (4.20-5.40) L Hemoglobin 10.7 G/DL (12.0-16.0) L Hematocrit 33.1 % (37.0-47.0) L Mean Corpuscular Volume 96 FL (80-99) Mean Corpuscular Hemoglobin 31.1 PG (27.0-31.0) H Mean Corpuscular Hemoglobin Concent 32.4 G/DL (32.0-36.0) Red Cell Distribution Width 12.9 % (11.6-14.8) Platelet Count 401 K/UL (150-450) Mean Platelet Volume 7.0 FL (6.5-10.1) Neutrophils (%) (Auto) 73.1 % (45.0-75.0) Lymphocytes (%) (Auto) 19.5 % (20.0-45.0) L Monocytes (%) (Auto) 5.7 % (1.0-10.0) Eosinophils (%) (Auto) 1.2 % (0.0-3.0) Basophils (%) (Auto) 0.6 % (0.0-2.0) Sodium Level 148 MMOL/L (136-145) H Potassium Level 3.5 MMOL/L (3.5-5.1) Chloride Level 111 MMOL/L (98-107) H Carbon Dioxide Level 28 MMOL/L (21-32) Anion Gap 9 mmol/L (5-15) Blood Urea Nitrogen 12 mg/dL (7-18) Creatinine 0.5 MG/DL (0.55-1.30) L Estimat Glomerular Filtration Rate mL/min (>60) Glucose Level 206 MG/DL (74-106) H Calcium Level 9.0 MG/DL (8.5-10.1) Total Bilirubin 0.3 MG/DL (0.2-1.0) Aspartate Amino Transf (AST/SGOT) 13 U/L (15-37) L Alanine Aminotransferase (ALT/SGPT) 11 U/L (12-78) L Alkaline Phosphatase 79 U/L (46-116) Total Protein 6.8 G/DL (6.4-8.2) Albumin 2.2 G/DL (3.4-5.0) L Globulin 4.6 g/dL Albumin/Globulin Ratio 0.5 (1.0-2.7) L Current Medications Medications (Trade) Dose Ordered Sig/Wayne Route PRN Reason Start Time Stop Time Status Last Admin Dose Admin Acetaminophen (Tylenol) 650 mg Q4H PRN ORAL fever 10/14/18 17:15 11/13/18 17:14 Azithromycin 500 mg/Dextrose 275 ml @ 275 mls/hr Q24H IV 10/14/18 18:30 10/21/18 18:29 10/15/18 17:38 Ceftriaxone Sodium 2 gm/ Dextrose 110 ml @ 220 mls/hr Q24H IV 10/15/18 14:00 10/22/18 13:59 10/15/18 14:06 Dextrose (Dextrose 50%) 25 ml Q30M PRN IV Hypoglycemia 10/15/18 01:45 11/14/18 01:44 Dextrose (Dextrose 50%) 50 ml Q30M PRN IV Hypoglycemia 10/15/18 01:45 11/14/18 01:44 Heparin Sodium (Porcine) (Heparin 5000 units/ml) 5,000 units EVERY 12 HOURS SUBQ 10/14/18 21:00 11/13/18 20:59 10/16/18 08:59 Hydromorphone HCl (Dilaudid) 0.5 mg Q6H PRN IVP For Pain 10/14/18 17:15 10/21/18 17:14 Insulin Aspart (NovoLOG) EVERY 6 HOURS SUBQ 10/16/18 06:00 11/14/18 06:29 10/16/18 11:31 Lactated Ringer's 1,000 ml @ 125 mls/hr Q8H IV 10/14/18 18:00 11/13/18 17:59 10/16/18 10:24 Metronidazole (Flagyl) 500 mg EVERY 8 HOURS ORAL 10/15/18 16:00 10/22/18 15:59 10/16/18 06:16 Pantoprazole (Protonix) 40 mg DAILY ORAL 10/15/18 09:00 11/14/18 08:59 10/16/18 08:59 Povidone Iodine (Betadine Kathy) 1 applic PRN PRN TOPIC Itching 10/16/18 11:30 11/15/18 11:29 Milton Valladares MD Oct 16, 2018 13:26
--- NOTE | 2018-10-16 14:06 | NUR ---
RD ASSESSMENT & RECOMMENDATIONS SEE CARE ACTIVITY FOR COMPLETE ASSESSMENT DAILY ESTIMATED NEEDS: Needs based on Wound, DM 58.5kg 25-30 kcals/kg 6198-4302 total kcals 1.25-1.5 g protein/kg 73-88 g total protein 25-30 mL/kg 7768-6271 total fluid mLs NUTRITION DIAGNOSIS: 1) Swallowing difficulty R/T dysphagia, CVA as evidenced by PEG dependent. 2) Increased kcal and pro needs r/t wound healing as evidenced by admitted w/ lt ear partial thickness wound full thickness sacral wound. CURRENT TF:Glucerna 1.2 @ 30 ml/hr x 24 hrs ENTERAL NUTRITION RECOMMENDATIONS: Glucerna 1.2 @ 60ml/hr x24 hrs to provide 1440ml, 1728kcal, 86g prot, 1159ml free water - Increase goal rate to 60ml/hr x 24 hrs - Advance TF 10ml q 4-6 hrs as tolerated to goal rate - HOB over 30 degrees/ water flush per MD ADDITIONAL RECOMMENDATIONS: 1) Calibrated bedscale wt for accurate CBW 2) Rec long acting insulin for improved BG control 3) Wound healing: add Vit C 500mg QD + Gonsalo 1pkt BID 4) Monitor lytes daily, replete as needed
--- NOTE | 2018-10-16 14:43 | NUR ---
P.T Note: P.T evaluation completed. Pt is alert however non verbal, essentially not following simple commands. Pt is dependent in all areas of ADL/self care and functional mobilities. Pt is baseline dependent and not a candidate for skilled P.T service.Recommend DC to prior living arrangement. Thank you for this referral. Addendum: 10/16/18 at 1451 by MARTÍNEZ CAIN PT Amended: Links added.
[2018-10-16 16:00] VITALS: BP 121/62
--- NOTE | 2018-10-16 16:00 | NUR ---
HAND-OFF: Report given to FELIX Burgos on . Patient's transferred to Med-surg per Dr. Muhammad's order. Patient's in stable condition, nonverbal, AO x 1, no s/s of distress or SOB. Patient's transferred by hospital bed to [facility]. Patient's on 2L Nasal Cannula. personnel monitor is removed. Charge nurse is aware. Patient's belonging list went over and signed by FELIX Burgos. Orders are transferred.
--- NOTE | 2018-10-16 16:20 | NUR ---
NURSE NOTES: Received patient from Sandra from [facility]. Patient is non verbal, awake. With O2 via nasal cannula at 2LPM. With IV site on left hand g20, no s/s of infiltration. With FC draining yellow urine to urine bag. With G tube intact, no s/s of infection on stoma site. Body check done. Noted with pressure sore on sacral , unstageable DTI on left ear and slight redness on both heels, pictures taken. No belonging. VS taken. Will continue plan of care.
[2018-10-16] MEDS ORDERED: Hydromorphone 0.5mg/0.5ml inj IVP PRN (17:15)
--- NOTE | 2018-10-16 17:19 | NUR ---
CASE MANAGEMENT:REVIEW 77 YR OLD FEMALE BIBA FROM [facility]; FEVER SI: SEPSIS. ENCEPHALOPATHY HYPERNATREMIA. DEHYDRATION 98.9 98 20 147/80 100% ON RA WBC+11.7 NA+152 BUN+39 IS: IV ROCEPHIN 1L NS BOLUS CHEST XRAY BLOOD CX : TO MED/SURG INTERQUAL CRITERIA MET
--- NOTE | 2018-10-16 18:29 | Surgery Progress Note ---
Surgery Progress Note Subjective Additional Comments no acute events labs ntoed exam stable dressing changed micro noted on abx Objective Last 24 Hour Vital Signs Date Time Temp Pulse Resp B/P (MAP) Pulse Ox O2 Delivery O2 Flow Rate FiO2 10/16/18 16:00 98.2 72 18 121/62 (81) 99 10/16/18 12:00 98.4 68 18 118/59 (78) 99 10/16/18 12:00 76 10/16/18 09:00 Nasal Cannula 2.0 10/16/18 08:00 98.6 72 16 145/66 (92) 99 10/16/18 08:00 66 10/16/18 04:00 98.1 78 18 105/68 (80) 98 10/16/18 04:00 62 10/16/18 00:00 67 10/16/18 00:00 98.7 69 18 120/56 (77) 99 10/15/18 21:00 Nasal Cannula 2.0 10/15/18 20:00 68 10/15/18 20:00 98.7 77 20 135/61 (85) 99 I&O Intake and Output 10/15/18 10/16/18 19:00 07:00 Intake Total 520 ml 1885 ml Output Total 800 ml Balance 520 ml 1085 ml Free Water 250 ml 250 ml IV Total 1275 ml Tube Feeding 270 ml 360 ml Output Urine Total 800 ml Dressing: saturated Wound: other Drains: other Cardiovascular: RSR Respiratory: decreased breath sounds Abdomen: soft, present bowel sounds, non-distended Extremities: no cyanosis, other Laboratory Tests Test 10/16/18 08:05 White Blood Count 11.2 K/UL (4.8-10.8) H Red Blood Count 3.44 M/UL (4.20-5.40) L Hemoglobin 10.7 G/DL (12.0-16.0) L Hematocrit 33.1 % (37.0-47.0) L Mean Corpuscular Volume 96 FL (80-99) Mean Corpuscular Hemoglobin 31.1 PG (27.0-31.0) H Mean Corpuscular Hemoglobin Concent 32.4 G/DL (32.0-36.0) Red Cell Distribution Width 12.9 % (11.6-14.8) Platelet Count 401 K/UL (150-450) Mean Platelet Volume 7.0 FL (6.5-10.1) Neutrophils (%) (Auto) 73.1 % (45.0-75.0) Lymphocytes (%) (Auto) 19.5 % (20.0-45.0) L Monocytes (%) (Auto) 5.7 % (1.0-10.0) Eosinophils (%) (Auto) 1.2 % (0.0-3.0) Basophils (%) (Auto) 0.6 % (0.0-2.0) Sodium Level 148 MMOL/L (136-145) H Potassium Level 3.5 MMOL/L (3.5-5.1) Chloride Level 111 MMOL/L (98-107) H Carbon Dioxide Level 28 MMOL/L (21-32) Anion Gap 9 mmol/L (5-15) Blood Urea Nitrogen 12 mg/dL (7-18) Creatinine 0.5 MG/DL (0.55-1.30) L Estimat Glomerular Filtration Rate mL/min (>60) Glucose Level 206 MG/DL (74-106) H Calcium Level 9.0 MG/DL (8.5-10.1) Total Bilirubin 0.3 MG/DL (0.2-1.0) Aspartate Amino Transf (AST/SGOT) 13 U/L (15-37) L Alanine Aminotransferase (ALT/SGPT) 11 U/L (12-78) L Alkaline Phosphatase 79 U/L (46-116) Total Protein 6.8 G/DL (6.4-8.2) Albumin 2.2 G/DL (3.4-5.0) L Globulin 4.6 g/dL Albumin/Globulin Ratio 0.5 (1.0-2.7) L Plan Problems: (1) G tube feedings (2) Rash (3) Sepsis Assessment & Plan: improving iv fluids tube feeds iv abx will monitor trend labs thank you (4) Lactic acid acidosis Assessment & Plan: resolved with resuscitation (5) Upper sacral area unstageable pressure ulcer Assessment & Plan: Patient presents with multiple wounds. partial thickness L ear wound. Skin is clean and intact. Full thickness sacral pressure injury with slough centrally at sacrococcygeal area with surrounding pink granulation.(L)Area of slough measures (L)1.4cm x (W) 1cm. Total pressure injury measures (L)4cm x (W)5.5cm. R and L heels are soft ,pink and each heel are easily blanchable. Tx.Plan: Cleanse sacral wound with saline. Apply Therahoney.Apply Moisture Barrier Paste to periwound. Cover with Optifoam drsg. Change every 3 days and prn. Apply Cavilon Skin Barrier to both heels. Cover each heel with Opifoam drsg. Change every 7 days and prn. APM/LOU Mattress overlay. Reposition at least every 2hours or as tolerated. Off-load heels with pillow. Akhil Jackson Oct 16, 2018 18:29
[2018-10-16] MEDS ORDERED: Azithromycin 500 MG in D5W 275 ML IV SCH (18:30)
--- NOTE | 2018-10-16 19:05 | NUR ---
HAND-OFF: Report given to Mily.
[2018-10-16 20:00] VITALS: BP 137/65
--- NOTE | 2018-10-16 21:24 | NUR ---
NURSE NOTES: Received patient awake in bed, non-verbal but able to track me with eyes. G tube feeding noted at 30cc/hr, will flush every 6 hours. Will monitor blood glucose closely. Nunez noted, patent and draining, collection bag off floor and below bladder. IV access asymptomatic running IVF at 125ml/hr.
[2018-10-17] VITALS: BP 127/66
--- NOTE | 2018-10-17 | NUR ---
HAND-OFF: Report given to FELIX Hoff.
--- NOTE | 2018-10-17 00:01 | NUR ---
NURSE NOTES: Received patient in no apparent distress. Non verbal. NC 2L on. IV site patent and intact. G-tube feeding on, running Glucerna 1.2 30cc/hr, elevated HOB. Nunez cath noted, draining well by gravity, yellow urine noted. Bed in lowest position. Call light within reach. Will continue to monitor.
[2018-10-17] MEDS: LR 1000ml 1,000 ML IV SCH ×3 (00:25→18:08)
[2018-10-17 04:00] VITALS: BP 124/62
[2018-10-17] MEDS: NovoLOG Insulin Flexpen SUBQ SCH ×3 (05:53→18:12)
[2018-10-17 06:22] LABS: BASOPHILS % (AUTO) 0.7 % (0.0-2.0); EOSINOPHILS % (AUTO) 1.4 % (0.0-3.0); HEMATOCRIT 33.2 % (37.0-47.0); HEMOGLOBIN 10.9 G/DL (12.0-16.0); LYMPHOCYTES % (AUTO) 24.3 % (20.0-45.0); MEAN CORPUSCULAR VOLUME 95 FL (80-99); NEUTROPHILS % (AUTO) 68.6 % (45.0-75.0); PLATELET COUNT 400 K/UL (150-450); RED CELL DISTRIBUTION WIDTH 12.6 % (11.6-14.8); WHITE BLOOD COUNT 9.4 K/UL (4.8-10.8)
[2018-10-17 06:47] LABS: ALANINE AMINOTRANSFERASE 11 U/L (12-78); ALBUMIN 2.1 G/DL (3.4-5.0); ALBUMIN/GLOBULIN RATIO 0.5 (1.0-2.7); ALKALINE PHOSPHATASE 72 U/L (46-116); ANION GAP 7 mmol/L (5-15); ASPARTATE AMINO TRANSFERASE 17 U/L (15-37); BILIRUBIN,TOTAL 0.4 MG/DL (0.2-1.0); BLOOD UREA NITROGEN 8 mg/dL (7-18); CALCIUM 8.8 MG/DL (8.5-10.1); CARBON DIOXIDE 29 MMOL/L (21-32); CHLORIDE 110 MMOL/L (98-107); CREATININE 0.4 MG/DL (0.55-1.30); POTASSIUM 3.5 MMOL/L (3.5-5.1); SODIUM 146 MMOL/L (136-145)
--- NOTE | 2018-10-17 07:20 | NUR ---
NURSE NOTES: Received patient awake. Not in respiratory or cardiac distress. Non verbal. IV access intact, no s/s of infiltration. G tube intact, no s/s of infection on stoma site. FC intact and draining well. Kept HOB elevated, bed on lowest position. Call light within reach. Will continue care plan.
--- NOTE | 2018-10-17 07:42 | NUR ---
HAND-OFF: Report given to Lara Villalobos RN.
[2018-10-17 08:00] VITALS: BP 146/72
--- NOTE | 2018-10-17 08:41 | Diagnostic Imaging Report ---
Indication: Abnormal chest sounds Technique: One view of the chest Comparison: 10/14/2018 Findings: Less optimal inspiration currently. There is suggestion of increased infiltrate at the left lung base. There is some atelectasis at the right lung base. The heart size is normal. Impression: Increased left basilar infiltrate, over 3 days
[2018-10-17] MEDS: Heparin 5000 units/ml inj SUBQ SCH ×2 (09:02→21:29)
[2018-10-17] MEDS ORDERED: Betadine 4oz Bottle TOPIC PRN (11:30)
--- NOTE | 2018-10-17 11:38 | General Progress Note ---
Assessment/Plan Problem List: (1) UTI (urinary tract infection) ICD Codes: N39.0 - Urinary tract infection, site not specified SNOMED: 22446063 (2) Sepsis ICD Codes: A41.9 - Sepsis, unspecified organism SNOMED: 50263478 (3) Toxic metabolic encephalopathy ICD Codes: G92 - Toxic encephalopathy SNOMED: 059791971 (4) Lactic acid acidosis ICD Codes: E87.2 - Acidosis SNOMED: 84069358 (5) Hypernatremia ICD Codes: E87.0 - Hyperosmolality and hypernatremia SNOMED: 730629839 (6) Upper sacral area unstageable pressure ulcer (7) PNA (pneumonia) ICD Codes: J18.9 - Pneumonia, unspecified organism SNOMED: 278365569 Status: progressing Assessment/Plan: 77 year old female with multiple comorbids from [place] with fever, admitted to telemetry for sepsis secondary to complicated pseudomonas UTI vs PNA (CAP vs aspiration), sacra decub ulcer infection (less likely), toxic metabolic encephalopathy, severe dehydration, lactic acidosis and hypernatremia. 1. sepsis secondary to complicated psudomonas UTI vs PNA (CAP vs aspiration), sacra decub ulcer infection (less likely),Upon reviewing the chart she has a history of MRSA PNA, klebsiella PNA and aspiration risk. CXR showed segmental atelectasis versus infiltrate in the left lung base mildly increased interstitial markings..ID consult with viet Garcia. Urine culture with pseudomonas, antibiotics changed from ceftriaxone, azithromycin, flagyl to Meropenem and Azithromycin. Urine legionella and mycoplasma pending. 2. Toxic metabolic encephalopathy. Multifactorial. Has had work up with MRI and EEG previous admission. 3. Lactic acidosis and severe dehydration with contraction alkalosis (? furosemide use). Will trend lactate. Continue IV LR @125ml/hr. Hold Furosemide 4. Hypernatremia. Added Free water via PEG. Resolving 5. Neuro: history of previous CVAs. Continue Lipitor, Hold antihypertensive medications for now. 6. Thrombocytosis- Likely reactive, will monitor 7. Sacral decub: Wound care, consult with Dr. Jackson 8. Paraprotein gap of 5.8, likely due to dehydration. Resolved Code status: full code (POLST reviewed) Time of this note may not necessarily reflect time of encounter. I spent 40 minutes on this encounter. 50% or greater on care coordination. Subjective Date patient seen: Oct 17, 2018 ROS Limited/Unobtainable: Yes Allergies: Coded Allergies: No Known Allergies (Unverified , 02/04/17) Subjective baseline non verbal Today more awake, opens eyes to verbal commands Objective Last 24 Hour Vital Signs Date Time Temp Pulse Resp B/P (MAP) Pulse Ox O2 Delivery O2 Flow Rate FiO2 10/17/18 09:00 Nasal Cannula 2.0 10/17/18 04:00 97.8 70 17 124/62 (82) 99 10/17/18 00:00 98.3 72 17 127/66 (86) 98 10/16/18 23:04 Nasal Cannula 2.0 10/16/18 20:00 99 Nasal Cannula 2.0 28 10/16/18 20:00 97.7 65 17 137/65 (89) 99 10/16/18 16:00 98.2 72 18 121/62 (81) 99 10/16/18 12:00 98.4 68 18 118/59 (78) 99 10/16/18 12:00 76 Intake and Output 10/16/18 10/17/18 19:00 07:00 Intake Total 610 ml 1930 ml Output Total 300 ml 1500 ml Balance 310 ml 430 ml Free Water 250 ml 250 ml IV Total 1350 ml Tube Feeding 360 ml 330 ml Output Urine Total 300 ml 1500 ml # Bowel Movements 1 Laboratory Tests 10/17/18 05:02: White Blood Count 9.4, Red Blood Count 3.50L, Hemoglobin 10.9L, Hematocrit 33.2L , Mean Corpuscular Volume 95, Mean Corpuscular Hemoglobin 31.0, Mean Corpuscular Hemoglobin Concent 32.8, Red Cell Distribution Width 12.6, Platelet Count 400, Mean Platelet Volume 6.5, Neutrophils (%) (Auto) 68.6, Lymphocytes (% ) (Auto) 24.3, Monocytes (%) (Auto) 5.0, Eosinophils (%) (Auto) 1.4, Basophils ( %) (Auto) 0.7, Sodium Level 146H, Potassium Level 3.5, Chloride Level 110H, Carbon Dioxide Level 29, Anion Gap 7, Blood Urea Nitrogen 8, Creatinine 0.4L, Estimat Glomerular Filtration Rate , Glucose Level 154H, Calcium Level 8.8, Total Bilirubin 0.4, Aspartate Amino Transf (AST/SGOT) 17, Alanine Aminotransferase (ALT/SGPT) 11L, Alkaline Phosphatase 72, Total Protein 6.6, Albumin 2.1L, Globulin 4.5, Albumin/Globulin Ratio 0.5L Height (Feet): 5 Height (Inches): 2.00 Weight (Pounds): 110 Objective General Appearance: Chronically Ill, in no acute distress. non verbal Head: normocephalic, poor dentition ENT: dry mucus membranes Neck: limited range of motion, supple, no JVD Respiratory: lungs clear, normal breath sounds Cardiovascular: RRR, S1S2, no m/r/g Gastrointestinal: non tender, soft, no mass, other - g tube stoma CDI Musculoskeletal: decreased range of motion Neurologic: responsive, aphasic, +hemiplegia Skin: Stage 4 sacral decub ulcer, clean, no discharge or odor Abdullahi Muhammad M.D. Oct 17, 2018 11:38
[2018-10-17 12:00] VITALS: BP 143/71
--- NOTE | 2018-10-17 14:00 | NUR ---
NURSE NOTES: IV line dislodged. Reinserted on left hand, IVF infusing well. G tube dressing changed. Patient kept clean and dry.
--- NOTE | 2018-10-17 14:28 | Surgery Progress Note ---
Surgery Progress Note Subjective Additional Comments no acute events labs improved exam improved stable comfortable cxr noted Objective Last 24 Hour Vital Signs Date Time Temp Pulse Resp B/P (MAP) Pulse Ox O2 Delivery O2 Flow Rate FiO2 10/17/18 12:00 97.5 71 20 143/71 (95) 99 10/17/18 09:00 Nasal Cannula 2.0 10/17/18 08:00 98.5 69 20 146/72 (96) 99 10/17/18 04:00 97.8 70 17 124/62 (82) 99 10/17/18 00:00 98.3 72 17 127/66 (86) 98 10/16/18 23:04 Nasal Cannula 2.0 10/16/18 20:00 99 Nasal Cannula 2.0 28 10/16/18 20:00 97.7 65 17 137/65 (89) 99 10/16/18 16:00 98.2 72 18 121/62 (81) 99 I&O Intake and Output 10/16/18 10/17/18 19:00 07:00 Intake Total 610 ml 1930 ml Output Total 300 ml 1500 ml Balance 310 ml 430 ml Free Water 250 ml 250 ml IV Total 1350 ml Tube Feeding 360 ml 330 ml Output Urine Total 300 ml 1500 ml # Bowel Movements 1 Dressing: dry Wound: clean Cardiovascular: RSR Respiratory: clear Abdomen: soft, non-tender, present bowel sounds, non-distended Extremities: no tenderness, no cyanosis Laboratory Tests Test 10/17/18 05:02 White Blood Count 9.4 K/UL (4.8-10.8) Red Blood Count 3.50 M/UL (4.20-5.40) L Hemoglobin 10.9 G/DL (12.0-16.0) L Hematocrit 33.2 % (37.0-47.0) L Mean Corpuscular Volume 95 FL (80-99) Mean Corpuscular Hemoglobin 31.0 PG (27.0-31.0) Mean Corpuscular Hemoglobin Concent 32.8 G/DL (32.0-36.0) Red Cell Distribution Width 12.6 % (11.6-14.8) Platelet Count 400 K/UL (150-450) Mean Platelet Volume 6.5 FL (6.5-10.1) Neutrophils (%) (Auto) 68.6 % (45.0-75.0) Lymphocytes (%) (Auto) 24.3 % (20.0-45.0) Monocytes (%) (Auto) 5.0 % (1.0-10.0) Eosinophils (%) (Auto) 1.4 % (0.0-3.0) Basophils (%) (Auto) 0.7 % (0.0-2.0) Sodium Level 146 MMOL/L (136-145) H Potassium Level 3.5 MMOL/L (3.5-5.1) Chloride Level 110 MMOL/L (98-107) H Carbon Dioxide Level 29 MMOL/L (21-32) Anion Gap 7 mmol/L (5-15) Blood Urea Nitrogen 8 mg/dL (7-18) Creatinine 0.4 MG/DL (0.55-1.30) L Estimat Glomerular Filtration Rate mL/min (>60) Glucose Level 154 MG/DL (74-106) H Calcium Level 8.8 MG/DL (8.5-10.1) Total Bilirubin 0.4 MG/DL (0.2-1.0) Aspartate Amino Transf (AST/SGOT) 17 U/L (15-37) Alanine Aminotransferase (ALT/SGPT) 11 U/L (12-78) L Alkaline Phosphatase 72 U/L (46-116) Total Protein 6.6 G/DL (6.4-8.2) Albumin 2.1 G/DL (3.4-5.0) L Globulin 4.5 g/dL Albumin/Globulin Ratio 0.5 (1.0-2.7) L Plan Problems: (1) G tube feedings (2) Rash (3) Sepsis Assessment & Plan: improving iv fluids tube feeds iv abx will monitor trend labs thank you (4) Lactic acid acidosis Assessment & Plan: resolved with resuscitation (5) Upper sacral area unstageable pressure ulcer Assessment & Plan: Patient presents with multiple wounds. partial thickness L ear wound. Skin is clean and intact. Full thickness sacral pressure injury with slough centrally at sacrococcygeal area with surrounding pink granulation.(L)Area of slough measures (L)1.4cm x (W) 1cm. Total pressure injury measures (L)4cm x (W)5.5cm. R and L heels are soft ,pink and each heel are easily blanchable. Tx.Plan: Cleanse sacral wound with saline. Apply Therahoney.Apply Moisture Barrier Paste to periwound. Cover with Optifoam drsg. Change every 3 days and prn. Apply Cavilon Skin Barrier to both heels. Cover each heel with Opifoam drsg. Change every 7 days and prn. APM/LOU Mattress overlay. Reposition at least every 2hours or as tolerated. Off-load heels with pillow. Akhil Jackson Oct 17, 2018 14:28
--- NOTE | 2018-10-17 14:36 | Infectious Diseases Prog Note ---
Assessment/Plan Assessment/Plan ASSESSMENT AND PLAN: 1. pseudomonas uti, gram neg pna, sepsis, fungal urine culture likely colonizer > uti - meropenem, discontinue azithromycin - f/u on labs and ches x-ray - would not treat yeast in urine culture 2. The patient has history of diabetes. 3. Hypertension. 4. Blood sugar and blood pressure treatment per primary for diabetes and hypertension. 5. The patient has history of stroke and hemiparesis. 6. History of benign neoplasm meninges. 7. Dysphagia, G-tube. 8. Aspiration risk. 9. Skin care protocol. 10. History of encephalopathy and confusion. 11. Dementia. 12. Encephalopathy. 13. History of sepsis and respiratory failure. 14. Lactic acidosis. 15. History of renal failure. 16. No known drug allergies. 17. Social history is negative. 18. Family history is noncontributory. 19. MAR was noted. 20. Case was discussed with RN. 21. Continue treatment per primary consultants. 22. wound care per Surgery an protocol 23. mrsa colonization and isolation Subjective Constitutional: Reports: fatigue, other - non-verbal but alert ; Denies: fever HEENT: Reports: congestion - less Respiratory: Reports: shortness of breath - less Cardiovascular: Denies: chest pain Gastrointestinal/Abdominal: Denies: nausea, vomiting, diarrhea Genitourinary: Reports: other - no taylor Neurologic: Reports: weakness, other - non- verbal Psychiatric: Denies: depression Skin: Denies: rash Hematologic: Denies: bleeding Musculoskeletal: Denies: pain Allergies: Coded Allergies: No Known Allergies (Unverified , 02/04/17) Objective Vital Signs Last 24 Hour Vital Signs Date Time Temp Pulse Resp B/P (MAP) Pulse Ox O2 Delivery O2 Flow Rate FiO2 10/17/18 12:00 97.5 71 20 143/71 (95) 99 10/17/18 09:00 Nasal Cannula 2.0 10/17/18 08:00 98.5 69 20 146/72 (96) 99 10/17/18 04:00 97.8 70 17 124/62 (82) 99 10/17/18 00:00 98.3 72 17 127/66 (86) 98 10/16/18 23:04 Nasal Cannula 2.0 10/16/18 20:00 99 Nasal Cannula 2.0 28 10/16/18 20:00 97.7 65 17 137/65 (89) 99 10/16/18 16:00 98.2 72 18 121/62 (81) 99 Height (Feet): 5 Height (Inches): 2.00 Weight (Pounds): 110 General Appearance: no acute distress HEENT: normocephalic, atraumatic, anicteric, mucous membranes moist Respiratory/Chest: crackles/rales, rhonchi - bilaterally, other - rales on left Cardiovascular: normal rate, regular rhythm, no gallop/murmur, no JVD Abdomen: normal bowel sounds, soft, non tender, no organomegaly, non distended Genitourinary: other - + taylor - urine cloudy Extremities: no cyanosis Skin: no rash 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 There is suggestion of increased infiltrate at the left lung base. There is some atelectasis at the right lung base. The heart size is normal. Impression: Increased left basilar infiltrate, over 3 days Microbiology Date/Time Source Procedure Growth Status 10/15/18 23:40 Sputum Induced Gram Stain - Final Resulted 10/15/18 23:40 Sputum Culture - Preliminary Gram Negative Bacillus 1 Resulted 10/15/18 17:15 Urine,Clean Catch Urine Culture - Final Pseudomonas Aeruginosa Complete 10/14/18 19:20 Rectum - Final NO CARBAPENEM-RESISTANT ENTEROBACTERI... Complete Laboratory Tests Test 10/17/18 05:02 White Blood Count 9.4 K/UL (4.8-10.8) Red Blood Count 3.50 M/UL (4.20-5.40) L Hemoglobin 10.9 G/DL (12.0-16.0) L Hematocrit 33.2 % (37.0-47.0) L Mean Corpuscular Volume 95 FL (80-99) Mean Corpuscular Hemoglobin 31.0 PG (27.0-31.0) Mean Corpuscular Hemoglobin Concent 32.8 G/DL (32.0-36.0) Red Cell Distribution Width 12.6 % (11.6-14.8) Platelet Count 400 K/UL (150-450) Mean Platelet Volume 6.5 FL (6.5-10.1) Neutrophils (%) (Auto) 68.6 % (45.0-75.0) Lymphocytes (%) (Auto) 24.3 % (20.0-45.0) Monocytes (%) (Auto) 5.0 % (1.0-10.0) Eosinophils (%) (Auto) 1.4 % (0.0-3.0) Basophils (%) (Auto) 0.7 % (0.0-2.0) Sodium Level 146 MMOL/L (136-145) H Potassium Level 3.5 MMOL/L (3.5-5.1) Chloride Level 110 MMOL/L (98-107) H Carbon Dioxide Level 29 MMOL/L (21-32) Anion Gap 7 mmol/L (5-15) Blood Urea Nitrogen 8 mg/dL (7-18) Creatinine 0.4 MG/DL (0.55-1.30) L Estimat Glomerular Filtration Rate mL/min (>60) Glucose Level 154 MG/DL (74-106) H Calcium Level 8.8 MG/DL (8.5-10.1) Total Bilirubin 0.4 MG/DL (0.2-1.0) Aspartate Amino Transf (AST/SGOT) 17 U/L (15-37) Alanine Aminotransferase (ALT/SGPT) 11 U/L (12-78) L Alkaline Phosphatase 72 U/L (46-116) Total Protein 6.6 G/DL (6.4-8.2) Albumin 2.1 G/DL (3.4-5.0) L Globulin 4.5 g/dL Albumin/Globulin Ratio 0.5 (1.0-2.7) L Current Medications Medications (Trade) Dose Ordered Sig/Wayne Route PRN Reason Start Time Stop Time Status Last Admin Dose Admin Acetaminophen (Tylenol) 650 mg Q4H PRN ORAL fever 10/16/18 17:15 11/13/18 17:14 Azithromycin 500 mg/Dextrose 275 ml @ 275 mls/hr Q24H IV 10/16/18 18:30 10/21/18 18:29 10/16/18 18:38 Dextrose (Dextrose 50%) 25 ml Q30M PRN IV Hypoglycemia 10/16/18 15:45 11/14/18 01:44 Dextrose (Dextrose 50%) 50 ml Q30M PRN IV Hypoglycemia 10/16/18 15:45 11/14/18 01:44 Heparin Sodium (Porcine) (Heparin 5000 units/ml) 5,000 units EVERY 12 HOURS SUBQ 10/16/18 21:00 11/13/18 20:59 10/17/18 09:02 Hydromorphone HCl (Dilaudid) 0.5 mg Q6H PRN IVP For Pain 10/16/18 17:15 10/21/18 17:14 Insulin Aspart (NovoLOG) EVERY 6 HOURS SUBQ 10/16/18 18:00 11/14/18 06:29 10/17/18 11:38 Lactated Ringer's 1,000 ml @ 125 mls/hr Q8H IV 10/16/18 17:00 11/13/18 16:59 10/17/18 00:25 Meropenem 1 gm/ Sodium Chloride 100 ml @ 200 mls/hr Q8HR IVPB 10/16/18 22:00 10/21/18 13:59 10/17/18 05:51 Pantoprazole (Protonix) 40 mg DAILY ORAL 10/17/18 09:00 11/14/18 08:59 10/17/18 09:00 Povidone Iodine (Betadine Kathy) 1 applic PRN PRN TOPIC Itching 10/17/18 11:30 11/15/18 11:29 Milton Valladares MD Oct 17, 2018 14:36
[2018-10-17 16:00] VITALS: BP 129/55
--- NOTE | 2018-10-17 19:08 | NUR ---
HAND-OFF: Report given to
--- NOTE | 2018-10-17 19:30 | NUR ---
NURSE NOTES: Received patient in bed. A&OX1, non verbal. IV sites are patent and intact. G-tube feeding on, running Glucerna 1.2 30cc/hr, 0cc residual noted, flushed, elevated HOB. Nunez cath noted, draining well by gravity, yellow urine noted. Bed in lowest position. Call light within reach. Will continue to monitor.
[2018-10-17 20:00] VITALS: BP 130/67
[2018-10-18] VITALS (7 sets, daily range): BP systolic 112–156; BP diastolic 55–92
[2018-10-18] MEDS: LR 1000ml 1,000 ML IV SCH ×2 (00:08→09:04)
[2018-10-18] MEDS: NovoLOG Insulin Flexpen SUBQ SCH ×4 (00:10→17:59)
--- NOTE | 2018-10-18 07:19 | NUR ---
HAND-OFF: Report given to Susie WASHINGTON.
--- NOTE | 2018-10-18 08:06 | NUR ---
NURSE NOTES: Received report from FELIX Hoff. The patient is resting on the bed without acute distress or shortness of breath. The patient is sweating and her blood sugar level was 233. The patient's bed in the lowest position, call light in reach, and fall and aspiration precaution reinforced. G-tube feeding is running Glucerna 1.2 30mL/hr. IV site on right and left hand 22G is intact and patent. Will continue plan of care.
[2018-10-18] MEDS: Heparin 5000 units/ml inj SUBQ SCH ×2 (09:04→21:25)
--- NOTE | 2018-10-18 10:17 | NUR ---
NURSE NOTES: Left voicemail to Dr. Muhammad regarding tachycardia upto 125bpm. EKG stat ordered. No other order yet. Will continue plan of care. Will carry out the order as soon as receives it.
--- NOTE | 2018-10-18 11:40 | NUR ---
NURSE NOTES: Dr. Muhammad assessed the patient and ordered to start Metoprolol and discontinue LR. Per Dr. Muhammad, the patient is safe to be at med/surg. Will continue to monitor the patient. Will continue plan of care.
--- NOTE | 2018-10-18 12:18 | General Progress Note ---
Assessment/Plan Problem List: (1) UTI (urinary tract infection) ICD Codes: N39.0 - Urinary tract infection, site not specified SNOMED: 89196434 (2) Sepsis ICD Codes: A41.9 - Sepsis, unspecified organism SNOMED: 13267053 (3) Toxic metabolic encephalopathy ICD Codes: G92 - Toxic encephalopathy SNOMED: 612370074 (4) Lactic acid acidosis ICD Codes: E87.2 - Acidosis SNOMED: 85484112 (5) Hypernatremia ICD Codes: E87.0 - Hyperosmolality and hypernatremia SNOMED: 392844395 (6) Upper sacral area unstageable pressure ulcer (7) PNA (pneumonia) ICD Codes: J18.9 - Pneumonia, unspecified organism SNOMED: 570551997 Status: progressing Assessment/Plan: 77 year old female with multiple comorbids from OR with fever, admitted to telemetry for sepsis secondary to complicated pseudomonas UTI vs PNA (CAP vs aspiration), sacra decub ulcer infection (less likely), toxic metabolic encephalopathy, severe dehydration, lactic acidosis and hypernatremia. 1. sepsis secondary to complicated psudomonas UTI vs PNA (CAP vs aspiration), sacra decub ulcer infection (less likely),Upon reviewing the chart she has a history of MRSA PNA, klebsiella PNA and aspiration risk. CXR showed segmental atelectasis versus infiltrate in the left lung base mildly increased interstitial markings..ID consult with viet Garcia. Urine culture with pseudomonas, antibiotics changed from ceftriaxone, azithromycin, flagyl to Meropenem and Azithromycin. Urine legionella and mycoplasma. Finished Azithromycin. Now continues on Meropenem. Urine and sputum both growing pseudomonas aeruginosa sensitive to meropenem. resistant to Zosyn, intermediate to cefepime. blood cultures are negative. 2. Toxic metabolic encephalopathy. Multifactorial. Has had work up with MRI and EEG previous admission. 3. Lactic acidosis and severe dehydration with contraction alkalosis (? furosemide use). Will trend lactate. Continue IV LR @125ml/hr. Hold Furosemide 4. Hypernatremia. Added Free water via PEG. Resolving 5. Neuro: history of previous CVAs. Continue Lipitor, Hold antihypertensive medications for now. 6. Thrombocytosis- Likely reactive, will monitor 7. Sacral decub: Wound care, consult with Dr. Jackson 8. Paraprotein gap of 5.8, likely due to dehydration. Resolved Code status: full code (POLST reviewed) DC planning back to [facility] Time of this note may not necessarily reflect time of encounter. I spent 40 minutes on this encounter. 50% or greater on care coordination. Subjective Date patient seen: Oct 18, 2018 ROS Limited/Unobtainable: Yes Allergies: Coded Allergies: No Known Allergies (Unverified , 02/04/17) Subjective baseline non verbal opens eyes to voice Today tachycardic to 125, diaphoretic Objective Last 24 Hour Vital Signs Date Time Temp Pulse Resp B/P (MAP) Pulse Ox O2 Delivery O2 Flow Rate FiO2 10/18/18 08:00 98.8 125 20 156/92 (113) 97 10/18/18 07:57 95 Nasal Cannula 2.0 28 10/18/18 04:00 98.7 63 23 112/57 (75) 99 10/18/18 00:00 97.6 72 21 131/55 (80) 97 10/17/18 21:00 Nasal Cannula 2.0 10/17/18 20:00 97.8 73 18 130/67 (88) 100 10/17/18 19:58 97 Nasal Cannula 2.0 28 10/17/18 16:00 98.8 66 20 129/55 (79) 97 Intake and Output 10/17/18 10/18/18 18:59 06:59 Intake Total 1305 ml 2010 ml Output Total 450 ml 800 ml Balance 855 ml 1210 ml Free Water 500 ml 200 ml IV Total 475 ml 1450 ml Tube Feeding 330 ml 360 ml Output Urine Total 450 ml 800 ml # Voids 2 # Bowel Movements 2 Height (Feet): 5 Height (Inches): 2.00 Weight (Pounds): 110 Objective General Appearance: Chronically Ill, in no acute distress. non verbal, + diaphoretic Head: normocephalic, poor dentition ENT: dry mucus membranes Neck: limited range of motion, supple, no JVD Respiratory: lungs clear, normal breath sounds Cardiovascular: RRR, S1S2, no m/r/g Gastrointestinal: non tender, soft, no mass, other - g tube stoma CDI Musculoskeletal: decreased range of motion Neurologic: responsive, aphasic, +hemiplegia Skin: Stage 4 sacral decub ulcer, clean, no discharge or odor Abdullahi Muhammad M.D. Oct 18, 2018 12:18
[2018-10-18 14:11] LABS: HEMATOCRIT 34.6 % (37.0-47.0); HEMOGLOBIN 11.6 G/DL (12.0-16.0); MEAN CORPUSCULAR VOLUME 93 FL (80-99); PLATELET COUNT 448 K/UL (150-450); RED CELL DISTRIBUTION WIDTH 12.5 % (11.6-14.8); WHITE BLOOD COUNT 21.9 K/UL (4.8-10.8)
--- NOTE | 2018-10-18 14:30 | NUR ---
NURSE NOTES: Notified Dr. Valladares and Dr. Muhammad regarding elevated WBC. The patient is on Meropenem. No new order yet. Will continue plan of care.
[2018-10-18 14:33] LABS: ALANINE AMINOTRANSFERASE 17 U/L (12-78); ALBUMIN 2.1 G/DL (3.4-5.0); ALBUMIN/GLOBULIN RATIO 0.5 (1.0-2.7); ALKALINE PHOSPHATASE 75 U/L (46-116); ANION GAP 7 mmol/L (5-15); ASPARTATE AMINO TRANSFERASE 25 U/L (15-37); BILIRUBIN,TOTAL 0.3 MG/DL (0.2-1.0); BLOOD UREA NITROGEN 9 mg/dL (7-18); CALCIUM 8.9 MG/DL (8.5-10.1); CARBON DIOXIDE 30 MMOL/L (21-32); CHLORIDE 109 MMOL/L (98-107); CREATININE 0.5 MG/DL (0.55-1.30); POTASSIUM 3.7 MMOL/L (3.5-5.1); SODIUM 146 MMOL/L (136-145)
--- NOTE | 2018-10-18 14:57 | NUR ---
NURSE NOTES: Dr. Muhammad ordered stat CXR. Will carry out the order now. Will continue plan of care.
--- NOTE | 2018-10-18 15:11 | NUR ---
NURSE NOTES: Dr. Solis ordered as follows: stat blood culture, UA, Urine culture, C.diff for diarrhea, and CBC and CMP for tomorrow morning. Will carry out the order now.
--- NOTE | 2018-10-18 16:01 | Surgery Progress Note ---
Surgery Progress Note Subjective Additional Comments no acute events improved comfortable labs noted exam stable. dressing changed Objective Last 24 Hour Vital Signs Date Time Temp Pulse Resp B/P (MAP) Pulse Ox O2 Delivery O2 Flow Rate FiO2 10/18/18 13:30 98.1 91 20 134/65 (88) 100 10/18/18 12:00 98.0 93 20 153/76 (101) 95 10/18/18 09:00 Nasal Cannula 2.0 10/18/18 08:00 98.8 125 20 156/92 (113) 97 10/18/18 07:57 95 Nasal Cannula 2.0 28 10/18/18 04:00 98.7 63 23 112/57 (75) 99 10/18/18 00:00 97.6 72 21 131/55 (80) 97 10/17/18 21:00 Nasal Cannula 2.0 10/17/18 20:00 97.8 73 18 130/67 (88) 100 10/17/18 19:58 97 Nasal Cannula 2.0 28 I&O Intake and Output 10/17/18 10/18/18 19:00 07:00 Intake Total 1305 ml 1980 ml Output Total 450 ml 800 ml Balance 855 ml 1180 ml Free Water 500 ml 200 ml IV Total 475 ml 1450 ml Tube Feeding 330 ml 330 ml Output Urine Total 450 ml 800 ml # Voids 2 # Bowel Movements 2 Dressing: dry Wound: clean Cardiovascular: RSR Respiratory: clear Abdomen: soft, flat, non-tender, present bowel sounds Extremities: no cyanosis, other Laboratory Tests Test 10/18/18 14:00 White Blood Count 21.9 K/UL (4.8-10.8) #H Red Blood Count 3.70 M/UL (4.20-5.40) L Hemoglobin 11.6 G/DL (12.0-16.0) L Hematocrit 34.6 % (37.0-47.0) L Mean Corpuscular Volume 93 FL (80-99) Mean Corpuscular Hemoglobin 31.3 PG (27.0-31.0) H Mean Corpuscular Hemoglobin Concent 33.5 G/DL (32.0-36.0) Red Cell Distribution Width 12.5 % (11.6-14.8) Platelet Count 448 K/UL (150-450) Mean Platelet Volume 6.8 FL (6.5-10.1) Neutrophils (%) (Auto) % (45.0-75.0) Lymphocytes (%) (Auto) % (20.0-45.0) Monocytes (%) (Auto) % (1.0-10.0) Eosinophils (%) (Auto) % (0.0-3.0) Basophils (%) (Auto) % (0.0-2.0) Differential Total Cells Counted 100 Neutrophils % (Manual) 91 % (45-75) H Lymphocytes % (Manual) 8 % (20-45) L Monocytes % (Manual) 1 % (1-10) Eosinophils % (Manual) 0 % (0-3) Basophils % (Manual) 0 % (0-2) Band Neutrophils 0 % (0-8) Platelet Estimate Adequate Platelet Morphology Normal Red Blood Cell Morphology Normal Sodium Level 146 MMOL/L (136-145) H Potassium Level 3.7 MMOL/L (3.5-5.1) Chloride Level 109 MMOL/L (98-107) H Carbon Dioxide Level 30 MMOL/L (21-32) Anion Gap 7 mmol/L (5-15) Blood Urea Nitrogen 9 mg/dL (7-18) Creatinine 0.5 MG/DL (0.55-1.30) L Estimat Glomerular Filtration Rate mL/min (>60) Glucose Level 227 MG/DL (74-106) H Calcium Level 8.9 MG/DL (8.5-10.1) Total Bilirubin 0.3 MG/DL (0.2-1.0) Aspartate Amino Transf (AST/SGOT) 25 U/L (15-37) Alanine Aminotransferase (ALT/SGPT) 17 U/L (12-78) Alkaline Phosphatase 75 U/L (46-116) Total Protein 6.6 G/DL (6.4-8.2) Albumin 2.1 G/DL (3.4-5.0) L Globulin 4.5 g/dL Albumin/Globulin Ratio 0.5 (1.0-2.7) L Plan Problems: (1) G tube feedings (2) Rash (3) Sepsis Assessment & Plan: improving iv fluids tube feeds iv abx will monitor trend labs thank you (4) Lactic acid acidosis Assessment & Plan: resolved with resuscitation overall much improved d/c planning okay to d/c from surgical standpoint with outpatient wound care (5) Upper sacral area unstageable pressure ulcer Assessment & Plan: Patient presents with multiple wounds. partial thickness L ear wound. Skin is clean and intact. Full thickness sacral pressure injury with slough centrally at sacrococcygeal area with surrounding pink granulation.(L)Area of slough measures (L)1.4cm x (W) 1cm. Total pressure injury measures (L)4cm x (W)5.5cm. R and L heels are soft ,pink and each heel are easily blanchable. Tx.Plan: Cleanse sacral wound with saline. Apply Therahoney.Apply Moisture Barrier Paste to periwound. Cover with Optifoam drsg. Change every 3 days and prn. Apply Cavilon Skin Barrier to both heels. Cover each heel with Opifoam drsg. Change every 7 days and prn. APM/LOU Mattress overlay. Reposition at least every 2hours or as tolerated. Off-load heels with pillow. Akhil Jackson Oct 18, 2018 16:01
--- NOTE | 2018-10-18 16:22 | Diagnostic Imaging Report ---
Indication: Shortness of breath Technique: One view of the chest Comparison: 10/17/2018 Findings: Less optimal inspiration currently. Basilar atelectatic changes are demonstrated. Infiltrate at the left lung base is unchanged from the prior exam. Heart size is upper limits of normal. The aorta is calcified and tortuous Impression: Hypoventilatory exam with right basilar atelectasis. Unchanged left basilar infiltrate
--- NOTE | 2018-10-18 16:33 | NUR ---
NURSE NOTES: Urine sample for urinalysis and urine culture handed to the laboratory personnel. Will continue plan of care.
[2018-10-18 17:20] LABS: APPEARANCE,URINE VERY CLOUDY; BILIRUBIN, URINE NEGATIVE (NEGATIVE); COLOR,URINE PALE YELLOW; GLUCOSE, URINE (UA) 1+ (NEGATIVE); KETONES,URINE 1+ (NEGATIVE); LEUKOCYTE ESTERASE ,URINE 3+ (NEGATIVE); NITRITE,URINE POSITIVE (NEGATIVE); PH,URINE 7 (4.5-8.0); PROTEIN,URINE 3+ (NEGATIVE); UROBILINOGEN,URINE NORMAL MG/DL (0.0-1.0)
--- NOTE | 2018-10-18 18:34 | NUR ---
NURSE NOTES: Dr. Solis ordered Vancomycin 1gram now and pharmacy to dose from the next dose. Carried out the order. The patient is stable without acute distress or shortness of breath. Will continue plan of care.
[2018-10-18] MEDS ORDERED: Vancomycin 1 GM in D5W 275 ML IVPB ONE (18:45)
--- NOTE | 2018-10-18 19:33 | NUR ---
NURSE NOTES: Received report from Susie WASHINGTON, patient is in bed, asleep, patient is non verbal, no acute distress noted, on g tube feeding, Glucerna 1.2 at 30 cc per four, tolerating well ,IV site is clean dry and intact. Bed is in low position, locked, alarm is on, call light is within reach. Will continue to monitor for safety and comfort.
--- NOTE | 2018-10-18 19:48 | NUR ---
HAND-OFF: Report given to FELIX Scott. The patient is resting on the bed without acute distress or shortness of breath. The patient's bed in the lowest position, call light in reach, and fall and aspiration precaution reinforced. The patient in on air matress for the sacral and other pressure ulcers. The patient is on G-tube feeding with Glucerna 1.2 30cc/hr. IV is intact and patent. Nunez is intact and draining. Endorsed plan of care.
[2018-10-18] MEDS: Metoprolol Tartrate 12.5mg TAB ORAL SCH (21:24)
[2018-10-18] MEDS: Levemir Flexpen SUBQ SCH (21:42)
[2018-10-19] VITALS: BP 119/70
[2018-10-19] MEDS: NovoLOG Insulin Flexpen SUBQ SCH ×4 (00:40→17:37)
[2018-10-19 04:00] VITALS: BP 122/55
[2018-10-19 06:31] LABS: BASOPHILS % (AUTO) 0.6 % (0.0-2.0); EOSINOPHILS % (AUTO) 1.4 % (0.0-3.0); HEMATOCRIT 32.2 % (37.0-47.0); HEMOGLOBIN 10.7 G/DL (12.0-16.0); MEAN CORPUSCULAR VOLUME 95 FL (80-99); MONOCYTES % (AUTO) 5.1 % (1.0-10.0); PLATELET COUNT 376 K/UL (150-450); RED BLOOD COUNT 3.41 M/UL (4.20-5.40); RED CELL DISTRIBUTION WIDTH 12.3 % (11.6-14.8); WHITE BLOOD COUNT 9.8 K/UL (4.8-10.8)
[2018-10-19 06:45] LABS: ALANINE AMINOTRANSFERASE 17 U/L (12-78); ALBUMIN 2.1 G/DL (3.4-5.0); ALBUMIN/GLOBULIN RATIO 0.5 (1.0-2.7); ALKALINE PHOSPHATASE 72 U/L (46-116); ANION GAP 5 mmol/L (5-15); ASPARTATE AMINO TRANSFERASE 24 U/L (15-37); BILIRUBIN,TOTAL 0.3 MG/DL (0.2-1.0); BLOOD UREA NITROGEN 7 mg/dL (7-18); CALCIUM 8.7 MG/DL (8.5-10.1); CARBON DIOXIDE 32 MMOL/L (21-32); CHLORIDE 106 MMOL/L (98-107); CREATININE 0.5 MG/DL (0.55-1.30); POTASSIUM 3.1 MMOL/L (3.5-5.1); SODIUM 143 MMOL/L (136-145)
--- NOTE | 2018-10-19 07:11 | NUR ---
RADIOLOGY DEPT, CHEST X-RAY DONE @ 15:07 HRS BY TECHNOLOGIST JEFFREY
--- NOTE | 2018-10-19 07:13 | NUR ---
HAND-OFF: Report given to Mari WASHINGTON.
[2018-10-19 08:00] VITALS: BP 133/61
--- NOTE | 2018-10-19 08:27 | NUR ---
NURSE NOTES: Received report from FELIX Scott. Pt in bed, nonverbal, respirations unlabored, no apparent distress noted, turned pt due to sacral wound, HOB >30 degrees, g-tube running according to order, IV sites noted and patent, bed in lowest position, call light within reach. Pt is able to follow simple commands.
--- NOTE | 2018-10-19 08:40 | NUR ---
NURSE NOTES: Left message for Dr. Muhammad regarding K 3.1, recommended replacement
--- NOTE | 2018-10-19 09:52 | NUR ---
CASE MANAGEMENT:REVIEW 10/19/18 SI: SEPSIS 97.3 70 19 [id number] 96% ON 2L/NC H/H-10.7/32.2 K-3.1 IS: IV VANCOMYCIN Q12 IV MEROPENEM Q12 : MED/SURG STATUS 4 EAST DCP: FROM [facility]
[2018-10-19] MEDS: Metoprolol Tartrate 12.5mg TAB ORAL SCH ×2 (09:56→23:17)
[2018-10-19] MEDS: Heparin 5000 units/ml inj SUBQ SCH ×2 (09:57→23:18)
[2018-10-19] MEDS: Vancomycin 750mg/NS 275ml IVPB SCH ×4 (09:57→23:13)
--- NOTE | 2018-10-19 10:05 | NUR ---
DISCHARGE PLANNING PLAN WAS FOR PATIENT TO RETURN TO SNF TODAY FAXED CLINICALS TO [facility] T: [phone] F: [phone] AWAIT DISCHARGE ORDER
[2018-10-19 12:00] VITALS: BP 129/63
--- NOTE | 2018-10-19 13:19 | NUR ---
RD ASSESSMENT & RECOMMENDATIONS SEE CARE ACTIVITY FOR COMPLETE ASSESSMENT DAILY ESTIMATED NEEDS: Needs based on Wound, DM 58.5kg 25-30 kcals/kg 4163-0740 total kcals 1.25-1.5 g protein/kg 73-88 g total protein 25-30 mL/kg 0938-2039 total fluid mLs NUTRITION DIAGNOSIS: 1) Swallowing difficulty R/T dysphagia, CVA as evidenced by PEG dependent. 2) Increased kcal and pro needs r/t wound healing as evidenced by admitted w/ lt ear partial thickness wound full thickness sacral wound. CURRENT TF:Glucerna 1.2 @30 ml/hr x 24 hrs ENTERAL NUTRITION RECOMMENDATIONS: Glucerna 1.2 @ 60ml/hr x24 hrs to provide 1440ml, 1728kcal, 86g prot, 1159ml free water - Increase goal rate to 60ml/hr x 24 hrs - Advance TF 10ml q 4-6 hrs as tolerated to goal rate - HOB over 30 degrees/ water flush per MD ADDITIONAL RECOMMENDATIONS: 1) Calibrated bedscale wt for accurate CBW 2) Rec long acting insulin for improved BG control 3) Wound healing: add Vit C 500mg QD + Gonsalo 1pkt BID 4) Monitor lytes daily, replete as needed (LOW K) . . .
--- NOTE | 2018-10-19 13:23 | Infectious Diseases Prog Note ---
Assessment/Plan Assessment/Plan ASSESSMENT AND PLAN: 1. pseudomonas uti, pseudomonas pna, sepsis, ? fungal uti, uti, ua worse with many yeast, leukocytosis noted yesterday and abx changed, no diarrhea to suggest c.diff. - meropenem, vancomycin added yesterday - diflucan added - f/u on cultures, labs and chest x-ray - d/w Dr. Vazquez - see multiple orders - d/w RN 2. The patient has history of diabetes. 3. Hypertension. 4. Blood sugar and blood pressure treatment per primary for diabetes and hypertension. 5. The patient has history of stroke and hemiparesis. 6. History of benign neoplasm meninges. 7. Dysphagia, G-tube. 8. Aspiration risk. 9. Skin care protocol. 10. History of encephalopathy and confusion. 11. Dementia. 12. Encephalopathy. 13. History of sepsis and respiratory failure. 14. Lactic acidosis. 15. History of renal failure. 16. No known drug allergies. 17. Social history is negative. 18. Family history is noncontributory. 19. MAR was noted. 20. Case was discussed with RN. 21. Continue treatment per primary consultants. 22. wound care per Surgery an protocol 23. mrsa colonization and isolation Subjective Constitutional: Reports: fatigue, other - lethargic ; Denies: fever HEENT: Denies: congestion Respiratory: Denies: shortness of breath Cardiovascular: Denies: chest pain Gastrointestinal/Abdominal: Denies: nausea, vomiting, diarrhea Genitourinary: Reports: other - + taylor Neurologic: Denies: headache Psychiatric: Denies: depression Skin: Denies: rash Hematologic: Denies: bleeding Musculoskeletal: Denies: pain Allergies: Coded Allergies: No Known Allergies (Unverified , 02/04/17) Objective Vital Signs Last 24 Hour Vital Signs Date Time Temp Pulse Resp B/P (MAP) Pulse Ox O2 Delivery O2 Flow Rate FiO2 10/19/18 12:00 98.6 79 12 129/63 (85) 96 10/19/18 09:56 70 133/61 10/19/18 08:18 Nasal Cannula 2.0 10/19/18 08:02 96 Nasal Cannula 2.0 28 10/19/18 08:00 97.3 70 19 133/61 (85) 96 10/19/18 04:00 98.5 65 19 122/55 (77) 10/19/18 00:00 98.4 66 18 119/70 (86) 10/18/18 21:24 87 135/89 10/18/18 21:00 Nasal Cannula 2.0 10/18/18 20:00 98.9 76 18 138/61 (86) 10/18/18 16:00 98.9 84 20 134/71 (92) 98 10/18/18 13:30 98.1 91 20 134/65 (88) 100 Height (Feet): 5 Height (Inches): 2.00 Weight (Pounds): 110 General Appearance: no acute distress HEENT: normocephalic, atraumatic, anicteric, mucous membranes moist Respiratory/Chest: no respiratory distress, no accessory muscle use, crackles/ rales, rhonchi - bilaterally, other - left rales Cardiovascular: normal rate, regular rhythm, no gallop/murmur, no JVD Abdomen: normal bowel sounds, soft, non tender, no organomegaly, non distended Genitourinary: other - + taylor - urine cloudy Extremities: no cyanosis Skin: no rash Neurologic/Psychiatric: motor weakness, other - lethargic and weak Lymphatic: no neck adenopathy Musculoskeletal: no effusion Objective Chest x-ray - 10/17/18 - Procedure: XRAY Chest 1v Indication: Abnormal chest sounds Technique: One view of the chest Comparison: 10/14/2018 Findings: Less optimal inspiration currently. There is suggestion of increased infiltrate at the left lung base. There is some atelectasis at the right lung base. The heart size is normal. Impression: Increased left basilar infiltrate, over 3 days Chest x-ray - 10/18/18 - Technique: One view of the chest Comparison: 10/17/2018 Findings: Less optimal inspiration currently. Basilar atelectatic changes are demonstrated. Infiltrate at the left lung base is unchanged from the prior exam. Heart size is upper limits of normal. The aorta is calcified and tortuous Impression: Hypoventilatory exam with right basilar atelectasis. Unchanged left basilar infiltrate Microbiology Date/Time Source Procedure Growth Status 10/14/18 13:30 Blood Blood Culture - Preliminary NO GROWTH AFTER 4 DAYS Resulted 10/15/18 23:40 Sputum Induced Gram Stain - Final Complete 10/15/18 23:40 Sputum Culture - Final Pseudomonas Aeruginosa Complete 10/18/18 15:30 Indwelling Cath Urine Culture - Preliminary Resulted 10/14/18 19:20 Rectum - Final NO CARBAPENEM-RESISTANT ENTEROBACTERI... Complete Microbiology Date/Time Source Procedure Growth Status 10/18/18 15:30 Indwelling Cath Urine Culture - Preliminary Resulted Laboratory Tests Test 10/18/18 14:00 10/18/18 15:30 10/19/18 05:10 White Blood Count 21.9 K/UL (4.8-10.8) #H 9.8 K/UL (4.8-10.8) # Red Blood Count 3.70 M/UL (4.20-5.40) L 3.41 M/UL (4.20-5.40) L Hemoglobin 11.6 G/DL (12.0-16.0) L 10.7 G/DL (12.0-16.0) L Hematocrit 34.6 % (37.0-47.0) L 32.2 % (37.0-47.0) L Mean Corpuscular Volume 93 FL (80-99) 95 FL (80-99) Mean Corpuscular Hemoglobin 31.3 PG (27.0-31.0) H 31.4 PG (27.0-31.0) H Mean Corpuscular Hemoglobin Concent 33.5 G/DL (32.0-36.0) 33.2 G/DL (32.0-36.0) Red Cell Distribution Width 12.5 % (11.6-14.8) 12.3 % (11.6-14.8) Platelet Count 448 K/UL (150-450) 376 K/UL (150-450) Mean Platelet Volume 6.8 FL (6.5-10.1) 6.9 FL (6.5-10.1) Neutrophils (%) (Auto) % (45.0-75.0) 71.0 % (45.0-75.0) Lymphocytes (%) (Auto) % (20.0-45.0) 22.0 % (20.0-45.0) Monocytes (%) (Auto) % (1.0-10.0) 5.1 % (1.0-10.0) Eosinophils (%) (Auto) % (0.0-3.0) 1.4 % (0.0-3.0) Basophils (%) (Auto) % (0.0-2.0) 0.6 % (0.0-2.0) Differential Total Cells Counted 100 Neutrophils % (Manual) 91 % (45-75) H Lymphocytes % (Manual) 8 % (20-45) L Monocytes % (Manual) 1 % (1-10) Eosinophils % (Manual) 0 % (0-3) Basophils % (Manual) 0 % (0-2) Band Neutrophils 0 % (0-8) Platelet Estimate Adequate Platelet Morphology Normal Red Blood Cell Morphology Normal Sodium Level 146 MMOL/L (136-145) H 143 MMOL/L (136-145) Potassium Level 3.7 MMOL/L (3.5-5.1) 3.1 MMOL/L (3.5-5.1) L Chloride Level 109 MMOL/L (98-107) H 106 MMOL/L (98-107) Carbon Dioxide Level 30 MMOL/L (21-32) 32 MMOL/L (21-32) Anion Gap 7 mmol/L (5-15) 5 mmol/L (5-15) Blood Urea Nitrogen 9 mg/dL (7-18) 7 mg/dL (7-18) Creatinine 0.5 MG/DL (0.55-1.30) L 0.5 MG/DL (0.55-1.30) L Estimat Glomerular Filtration Rate mL/min (>60) mL/min (>60) Glucose Level 227 MG/DL (74-106) H 208 MG/DL (74-106) H Calcium Level 8.9 MG/DL (8.5-10.1) 8.7 MG/DL (8.5-10.1) Total Bilirubin 0.3 MG/DL (0.2-1.0) 0.3 MG/DL (0.2-1.0) Aspartate Amino Transf (AST/SGOT) 25 U/L (15-37) 24 U/L (15-37) Alanine Aminotransferase (ALT/SGPT) 17 U/L (12-78) 17 U/L (12-78) Alkaline Phosphatase 75 U/L (46-116) 72 U/L (46-116) Total Protein 6.6 G/DL (6.4-8.2) 6.4 G/DL (6.4-8.2) Albumin 2.1 G/DL (3.4-5.0) L 2.1 G/DL (3.4-5.0) L Globulin 4.5 g/dL 4.3 g/dL Albumin/Globulin Ratio 0.5 (1.0-2.7) L 0.5 (1.0-2.7) L Urine Color Pale yellow Urine Appearance Very cloudy Urine pH 7 (4.5-8.0) Urine Specific [place] 1.010 (1.005-1.035) Urine Protein 3+ (NEGATIVE) H Urine Glucose (UA) 1+ (NEGATIVE) H Urine Ketones 1+ (NEGATIVE) H Urine Blood 5+ (NEGATIVE) H Urine Nitrite Positive (NEGATIVE) H Urine Bilirubin Negative (NEGATIVE) Urine Urobilinogen Normal MG/DL (0.0-1.0) Urine Leukocyte Esterase 3+ (NEGATIVE) H Urine RBC Tntc /HPF (0 - 2) H Urine WBC Tntc /HPF (0 - 2) H Urine Squamous Epithelial Cells Occasional /LPF Urine Bacteria Moderate /HPF (NONE) H Urine Yeast Many /HPF (NONE) H Current Medications Medications (Trade) Dose Ordered Sig/[place] Route PRN Reason Start Time Stop Time Status Last Admin Dose Admin Acetaminophen (Tylenol) 650 mg Q4H PRN ORAL fever 10/16/18 17:15 11/13/18 17:14 Dextrose (Dextrose 50%) 25 ml Q30M PRN IV Hypoglycemia 10/16/18 15:45 11/14/18 01:44 Dextrose (Dextrose 50%) 50 ml Q30M PRN IV Hypoglycemia 10/16/18 15:45 11/14/18 01:44 Fluconazole (Diflucan) 100 mg DAILY ORAL 10/20/18 09:00 10/27/18 08:59 Heparin Sodium (Porcine) (Heparin 5000 units/ml) 5,000 units EVERY 12 HOURS SUBQ 10/16/18 21:00 11/13/18 20:59 10/19/18 09:57 Hydromorphone HCl (Dilaudid) 0.5 mg Q6H PRN IVP For Pain 10/16/18 17:15 10/21/18 17:14 Insulin Aspart (NovoLOG) EVERY 6 HOURS SUBQ 10/16/18 18:00 11/14/18 06:29 10/19/18 12:58 Insulin Detemir (Levemir) 14 units BEDTIME SUBQ 10/18/18 21:00 11/17/18 20:59 10/18/18 21:42 Meropenem 1 gm/ Sodium Chloride 100 ml @ 200 mls/hr Q8HR IVPB 10/19/18 14:00 10/24/18 05:59 Metoprolol Tartrate (Lopressor) 12.5 mg Q12HR ORAL 10/18/18 21:00 11/17/18 20:59 10/19/18 09:56 Pantoprazole (Protonix) 40 mg DAILY ORAL 10/17/18 09:00 11/14/18 08:59 10/19/18 09:56 Povidone Iodine (Betadine Kathy) 1 applic PRN PRN TOPIC Itching 10/17/18 11:30 11/15/18 11:29 Vancomycin HCl (Vanco rx to dose) 1 ea DAILY PRN MISC Per rx protocol 10/18/18 18:30 11/17/18 18:29 Vancomycin HCl 750 mg/Sodium Chloride 275 ml @ 183.333 mls/hr Q12HR IVPB 10/19/18 09:00 10/24/18 08:59 10/19/18 09:57 Milton Valladares MD Oct 19, 2018 13:23
--- NOTE | 2018-10-19 15:07 | Surgery Progress Note ---
Surgery Progress Note Subjective Additional Comments leukocytosis resolved after initiated vanco cxr with infiltrate not ready for d/c Objective Last 24 Hour Vital Signs Date Time Temp Pulse Resp B/P (MAP) Pulse Ox O2 Delivery O2 Flow Rate FiO2 10/19/18 12:00 98.6 79 12 129/63 (85) 96 10/19/18 09:56 70 133/61 10/19/18 08:18 Nasal Cannula 2.0 10/19/18 08:02 96 Nasal Cannula 2.0 28 10/19/18 08:00 97.3 70 19 133/61 (85) 96 10/19/18 04:00 98.5 65 19 122/55 (77) 10/19/18 00:00 98.4 66 18 119/70 (86) 10/18/18 21:24 87 135/89 10/18/18 21:00 Nasal Cannula 2.0 10/18/18 20:00 98.9 76 18 138/61 (86) 10/18/18 16:00 98.9 84 20 134/71 (92) 98 I&O Intake and Output 10/18/18 10/19/18 18:59 06:59 Intake Total 560 ml 600 ml Balance 560 ml 600 ml Free Water 200 ml 300 ml Tube Feeding 360 ml 300 ml Dressing: saturated Wound: clean Cardiovascular: RSR Respiratory: clear Abdomen: soft, non-tender, present bowel sounds Extremities: no cyanosis, other Laboratory Tests Test 10/18/18 15:30 10/19/18 05:10 Urine Color Pale yellow Urine Appearance Very cloudy Urine pH 7 (4.5-8.0) Urine Specific [place] 1.010 (1.005-1.035) Urine Protein 3+ (NEGATIVE) H Urine Glucose (UA) 1+ (NEGATIVE) H Urine Ketones 1+ (NEGATIVE) H Urine Blood 5+ (NEGATIVE) H Urine Nitrite Positive (NEGATIVE) H Urine Bilirubin Negative (NEGATIVE) Urine Urobilinogen Normal MG/DL (0.0-1.0) Urine Leukocyte Esterase 3+ (NEGATIVE) H Urine RBC Tntc /HPF (0 - 2) H Urine WBC Tntc /HPF (0 - 2) H Urine Squamous Epithelial Cells Occasional /LPF Urine Bacteria Moderate /HPF (NONE) H Urine Yeast Many /HPF (NONE) H White Blood Count 9.8 K/UL (4.8-10.8) # Red Blood Count 3.41 M/UL (4.20-5.40) L Hemoglobin 10.7 G/DL (12.0-16.0) L Hematocrit 32.2 % (37.0-47.0) L Mean Corpuscular Volume 95 FL (80-99) Mean Corpuscular Hemoglobin 31.4 PG (27.0-31.0) H Mean Corpuscular Hemoglobin Concent 33.2 G/DL (32.0-36.0) Red Cell Distribution Width 12.3 % (11.6-14.8) Platelet Count 376 K/UL (150-450) Mean Platelet Volume 6.9 FL (6.5-10.1) Neutrophils (%) (Auto) 71.0 % (45.0-75.0) Lymphocytes (%) (Auto) 22.0 % (20.0-45.0) Monocytes (%) (Auto) 5.1 % (1.0-10.0) Eosinophils (%) (Auto) 1.4 % (0.0-3.0) Basophils (%) (Auto) 0.6 % (0.0-2.0) Sodium Level 143 MMOL/L (136-145) Potassium Level 3.1 MMOL/L (3.5-5.1) L Chloride Level 106 MMOL/L (98-107) Carbon Dioxide Level 32 MMOL/L (21-32) Anion Gap 5 mmol/L (5-15) Blood Urea Nitrogen 7 mg/dL (7-18) Creatinine 0.5 MG/DL (0.55-1.30) L Estimat Glomerular Filtration Rate mL/min (>60) Glucose Level 208 MG/DL (74-106) H Calcium Level 8.7 MG/DL (8.5-10.1) Total Bilirubin 0.3 MG/DL (0.2-1.0) Aspartate Amino Transf (AST/SGOT) 24 U/L (15-37) Alanine Aminotransferase (ALT/SGPT) 17 U/L (12-78) Alkaline Phosphatase 72 U/L (46-116) Total Protein 6.4 G/DL (6.4-8.2) Albumin 2.1 G/DL (3.4-5.0) L Globulin 4.3 g/dL Albumin/Globulin Ratio 0.5 (1.0-2.7) L Plan Problems: (1) G tube feedings (2) Rash (3) Sepsis Assessment & Plan: sudden elevated wbc. now resolved on abx improving iv fluids tube feeds iv abx will monitor trend labs thank you (4) Lactic acid acidosis Assessment & Plan: resolved with resuscitation overall much improved d/c planning okay to d/c from surgical standpoint with outpatient wound care (5) Upper sacral area unstageable pressure ulcer Assessment & Plan: Patient presents with multiple wounds. partial thickness L ear wound. Skin is clean and intact. Full thickness sacral pressure injury with slough centrally at sacrococcygeal area with surrounding pink granulation.(L)Area of slough measures (L)1.4cm x (W) 1cm. Total pressure injury measures (L)4cm x (W)5.5cm. R and L heels are soft ,pink and each heel are easily blanchable. Tx.Plan: Cleanse sacral wound with saline. Apply Therahoney.Apply Moisture Barrier Paste to periwound. Cover with Optifoam drsg. Change every 3 days and prn. Apply Cavilon Skin Barrier to both heels. Cover each heel with Opifoam drsg. Change every 7 days and prn. APM/LOU Mattress overlay. Reposition at least every 2hours or as tolerated. Off-load heels with pillow. Akhil Jackson Oct 19, 2018 15:07
--- NOTE | 2018-10-19 15:48 | General Progress Note ---
Assessment/Plan Problem List: (1) UTI (urinary tract infection) ICD Codes: N39.0 - Urinary tract infection, site not specified SNOMED: 22596379 (2) Sepsis ICD Codes: A41.9 - Sepsis, unspecified organism SNOMED: 94200636 (3) Toxic metabolic encephalopathy ICD Codes: G92 - Toxic encephalopathy SNOMED: 776355030 (4) Lactic acid acidosis ICD Codes: E87.2 - Acidosis SNOMED: 72267944 (5) Hypernatremia ICD Codes: E87.0 - Hyperosmolality and hypernatremia SNOMED: 665427457 (6) Upper sacral area unstageable pressure ulcer (7) PNA (pneumonia) ICD Codes: J18.9 - Pneumonia, unspecified organism SNOMED: 088212198 Status: progressing Assessment/Plan: 77 year old female with multiple comorbids from [place] with fever, admitted to telemetry for sepsis secondary to complicated pseudomonas UTI vs PNA (CAP vs aspiration), sacra decub ulcer infection (less likely), toxic metabolic encephalopathy, severe dehydration, lactic acidosis and hypernatremia. 1. sepsis secondary to complicated pseudomonas UTI vs PNA (CAP vs aspiration), sacra decub ulcer infection (less likely),Upon reviewing the chart she has a history of MRSA PNA, klebsiella PNA and aspiration risk. CXR showed segmental atelectasis versus infiltrate in the left lung base mildly increased interstitial markings..ID consult with Dr. Solis, appreciated. Urine culture with pseudomonas, and yeast. antibiotics changed from ceftriaxone, azithromycin, flagyl to Meropenem and Azithromycin. Urine and sputum both growing pseudomonas aeruginosa sensitive to meropenem. resistant to Zosyn, intermediate to cefepime. blood cultures are negative. Vancomycin and diflucan was added on 10/18 when she developed worsening leukocytosis and tachycardia. 2. Toxic metabolic encephalopathy. Multifactorial. Has had work up with MRI and EEG previous admission. 3. Lactic acidosis and severe dehydration with contraction alkalosis (? furosemide use). Will trend lactate. Hold Furosemide 4. Hypernatremia. Added Free water via PEG. Resolving 5. Neuro: history of previous CVAs. Continue Lipitor, Hold antihypertensive medications for now. 6. Thrombocytosis- Likely reactive, it's improving 7. Sacral decub: Wound care, consult with Dr. Jackson 8. Paraprotein gap of 5.8, likely due to dehydration. Resolved Code status: full code (POLST reviewed) DC planning back to [facility] Time of this note may not necessarily reflect time of encounter. I spent 40 minutes on this encounter. 50% or greater on care coordination. Subjective Date patient seen: Oct 19, 2018 ROS Limited/Unobtainable: Yes Allergies: Coded Allergies: No Known Allergies (Unverified , 02/04/17) Subjective baseline non verbal opens eyes to voice Became diaphoretic and tachycardic yesterday CXR with persistent L infiltrate Vancomycin and diflucan added yesterday 10/18 Objective Last 24 Hour Vital Signs Date Time Temp Pulse Resp B/P (MAP) Pulse Ox O2 Delivery O2 Flow Rate FiO2 10/19/18 12:00 98.6 79 12 129/63 (85) 96 10/19/18 09:56 70 133/61 10/19/18 08:18 Nasal Cannula 2.0 10/19/18 08:02 96 Nasal Cannula 2.0 28 10/19/18 08:00 97.3 70 19 133/61 (85) 96 10/19/18 04:00 98.5 65 19 122/55 (77) 10/19/18 00:00 98.4 66 18 119/70 (86) 10/18/18 21:24 87 135/89 10/18/18 21:00 Nasal Cannula 2.0 10/18/18 20:00 98.9 76 18 138/61 (86) 10/18/18 16:00 98.9 84 20 134/71 (92) 98 Intake and Output 10/18/18 10/19/18 18:59 06:59 Intake Total 560 ml 600 ml Balance 560 ml 600 ml Free Water 200 ml 300 ml Tube Feeding 360 ml 300 ml Laboratory Tests 10/19/18 05:10: White Blood Count 9.8#, Red Blood Count 3.41L, Hemoglobin 10.7L, Hematocrit 32.2L, Mean Corpuscular Volume 95, Mean Corpuscular Hemoglobin 31.4H, Mean Corpuscular Hemoglobin Concent 33.2, Red Cell Distribution Width 12.3, Platelet Count 376, Mean Platelet Volume 6.9, Neutrophils (%) (Auto) 71.0, Lymphocytes (% ) (Auto) 22.0, Monocytes (%) (Auto) 5.1, Eosinophils (%) (Auto) 1.4, Basophils ( %) (Auto) 0.6, Sodium Level 143, Potassium Level 3.1L, Chloride Level 106, Carbon Dioxide Level 32, Anion Gap 5, Blood Urea Nitrogen 7, Creatinine 0.5L, Estimat Glomerular Filtration Rate , Glucose Level 208H, Calcium Level 8.7, Total Bilirubin 0.3, Aspartate Amino Transf (AST/SGOT) 24, Alanine Aminotransferase (ALT/SGPT) 17, Alkaline Phosphatase 72, Total Protein 6.4, Albumin 2.1L, Globulin 4.3, Albumin/Globulin Ratio 0.5L Height (Feet): 5 Height (Inches): 2.00 Weight (Pounds): 110 Objective General Appearance: Chronically Ill, in no acute distress. non verbal, + diaphoretic Head: normocephalic, poor dentition ENT: dry mucus membranes Neck: limited range of motion, supple, no JVD Respiratory: lungs clear, normal breath sounds Cardiovascular: RRR, S1S2, no m/r/g Gastrointestinal: non tender, soft, no mass, other - g tube stoma CDI Musculoskeletal: decreased range of motion Neurologic: responsive, aphasic, +hemiplegia Skin: Stage 4 sacral decub ulcer, clean, no discharge or odor Abdullahi Muhammad M.D. Oct 19, 2018 15:48
[2018-10-19 16:00] VITALS: BP 132/66
[2018-10-19] MEDS: Ascorbic Acid 500mg tab ORAL SCH (17:37)
[2018-10-19 20:00] VITALS: BP 124/53
--- NOTE | 2018-10-19 20:11 | NUR ---
NURSE NOTES: Pt is in bed, asleep. No acute distress noted. Vitals stable. HOB elevated. Glucerna 1.2 running at 60ml/hr. Nunez draining yellow urine. Pt is on 2L n/c. Pt will be turned q 2hrs. Wound dressing dry and intact. Fall precaution in place. Bed locked low in position,side rails up and call light within reach. Bed alarm on. Pt will be monitored.
[2018-10-19] MEDS: Levemir Flexpen SUBQ SCH (23:19)
[2018-10-20] VITALS: BP 150/68
[2018-10-20] MEDS: NovoLOG Insulin Flexpen SUBQ SCH ×5 (01:26→23:37)
[2018-10-20 04:00] VITALS: BP 133/72
--- NOTE | 2018-10-20 06:00 | NUR ---
NURSE NOTES: Pt tolerating g-tube feeding well, no residual. HOB elevated. Pt turned frequently.
--- NOTE | 2018-10-20 07:20 | NUR ---
HAND-OFF: Report given to FELIX Guerra.
--- NOTE | 2018-10-20 07:37 | NUR ---
NURSE NOTES: Received report from FELIX Jimenez. Pt in bed, awake, nonverbal, able to tract with eyes, no apparent distress noted, respiration regular and unlabored, bed in lowest position, call light within reach, G-tube feeds running according to order, IV site intact.
[2018-10-20 08:00] VITALS: BP 125/62
[2018-10-20 08:06] LABS: BASOPHILS % (AUTO) 0.9 % (0.0-2.0); EOSINOPHILS % (AUTO) 2.3 % (0.0-3.0); HEMATOCRIT 34.8 % (37.0-47.0); HEMOGLOBIN 11.7 G/DL (12.0-16.0); LYMPHOCYTES % (AUTO) 25.7 % (20.0-45.0); MEAN CORPUSCULAR VOLUME 94 FL (80-99); MONOCYTES % (AUTO) 6.4 % (1.0-10.0); NEUTROPHILS % (AUTO) 64.7 % (45.0-75.0); PLATELET COUNT 383 K/UL (150-450); RED CELL DISTRIBUTION WIDTH 13.1 % (11.6-14.8); WHITE BLOOD COUNT 8.5 K/UL (4.8-10.8)
[2018-10-20 08:30] LABS: ANION GAP 6 mmol/L (5-15); BLOOD UREA NITROGEN 8 mg/dL (7-18); CALCIUM 8.4 MG/DL (8.5-10.1); CARBON DIOXIDE 30 MMOL/L (21-32); CHLORIDE 106 MMOL/L (98-107); CREATININE 0.5 MG/DL (0.55-1.30); POTASSIUM 4.1 MMOL/L (3.5-5.1); SODIUM 142 MMOL/L (136-145)
[2018-10-20] MEDS: Vancomycin 750mg/NS 275ml IVPB SCH ×4 (09:00→21:26)
[2018-10-20] MEDS: Metoprolol Tartrate 12.5mg TAB ORAL SCH ×2 (09:00→21:26)
[2018-10-20] MEDS: Heparin 5000 units/ml inj SUBQ SCH ×2 (09:00→21:27)
[2018-10-20] MEDS: Ascorbic Acid 500mg tab ORAL SCH ×2 (09:00→17:52)
[2018-10-20] MEDS: Fluconazole 100mg tab ORAL SCH (09:00)
--- NOTE | 2018-10-20 10:17 | Surgery Progress Note ---
Surgery Progress Note Subjective Additional Comments Patient seen and examined bedside. No acute events. Currently being changed by nursing staff. Wound evaluated and improving. Labs okay. Micro noted. Objective Last 24 Hour Vital Signs Date Time Temp Pulse Resp B/P (MAP) Pulse Ox O2 Delivery O2 Flow Rate FiO2 10/20/18 09:00 74 133/72 10/20/18 04:00 98.3 74 18 133/72 (92) 96 10/20/18 00:00 98.4 75 18 150/68 (95) 96 10/19/18 23:17 61 124/73 10/19/18 21:00 Nasal Cannula 2.0 10/19/18 20:00 99.0 59 20 124/53 (76) 100 10/19/18 19:41 97 Nasal Cannula 2.0 28 10/19/18 16:00 98.4 83 16 132/66 (88) 97 10/19/18 12:00 98.6 79 12 129/63 (85) 96 I&O Intake and Output 10/19/18 10/20/18 19:00 07:00 Intake Total 620 ml 1575.000 ml Output Total 850 ml 1000 ml Balance -230 ml 575.000 ml Free Water 500 ml 500 ml IV Total 475.000 ml Tube Feeding 120 ml 600 ml Output Urine Total 850 ml 1000 ml Dressing: saturated Wound: clean Cardiovascular: RSR Respiratory: clear Abdomen: soft, non-tender, present bowel sounds Extremities: no cyanosis, other Laboratory Tests Test 10/20/18 07:55 White Blood Count 8.5 K/UL (4.8-10.8) Red Blood Count 3.70 M/UL (4.20-5.40) L Hemoglobin 11.7 G/DL (12.0-16.0) L Hematocrit 34.8 % (37.0-47.0) L Mean Corpuscular Volume 94 FL (80-99) Mean Corpuscular Hemoglobin 31.7 PG (27.0-31.0) H Mean Corpuscular Hemoglobin Concent 33.7 G/DL (32.0-36.0) Red Cell Distribution Width 13.1 % (11.6-14.8) Platelet Count 383 K/UL (150-450) Mean Platelet Volume 6.9 FL (6.5-10.1) Neutrophils (%) (Auto) 64.7 % (45.0-75.0) Lymphocytes (%) (Auto) 25.7 % (20.0-45.0) Monocytes (%) (Auto) 6.4 % (1.0-10.0) Eosinophils (%) (Auto) 2.3 % (0.0-3.0) Basophils (%) (Auto) 0.9 % (0.0-2.0) Sodium Level 142 MMOL/L (136-145) Potassium Level 4.1 MMOL/L (3.5-5.1) Chloride Level 106 MMOL/L (98-107) Carbon Dioxide Level 30 MMOL/L (21-32) Anion Gap 6 mmol/L (5-15) Blood Urea Nitrogen 8 mg/dL (7-18) Creatinine 0.5 MG/DL (0.55-1.30) L Estimat Glomerular Filtration Rate mL/min (>60) Glucose Level 229 MG/DL (74-106) H Calcium Level 8.4 MG/DL (8.5-10.1) L Vancomycin Level Trough 14.0 ug/mL (5.0-12.0) H Plan Problems: (1) G tube feedings (2) Rash (3) Sepsis Assessment & Plan: sudden elevated wbc. now resolved on abx improving iv fluids tube feeds iv abx will monitor trend labs thank you (4) Lactic acid acidosis Assessment & Plan: resolved with resuscitation overall much improved d/c planning okay to d/c from surgical standpoint with outpatient wound care (5) Upper sacral area unstageable pressure ulcer Assessment & Plan: Patient presents with multiple wounds. partial thickness L ear wound. Skin is clean and intact. Full thickness sacral pressure injury with slough centrally at sacrococcygeal area with surrounding pink granulation.(L)Area of slough measures (L)1.4cm x (W) 1cm. Total pressure injury measures (L)4cm x (W)5.5cm. R and L heels are soft ,pink and each heel are easily blanchable. Tx.Plan: Cleanse sacral wound with saline. Apply Therahoney.Apply Moisture Barrier Paste to periwound. Cover with Optifoam drsg. Change every 3 days and prn. Apply Cavilon Skin Barrier to both heels. Cover each heel with Opifoam drsg. Change every 7 days and prn. APM/LOU Mattress overlay. Reposition at least every 2hours or as tolerated. Off-load heels with pillow. Akhil Jackson Oct 20, 2018 10:17
[2018-10-20 12:00] VITALS: BP 138/71
--- NOTE | 2018-10-20 13:42 | General Progress Note ---
Assessment/Plan Problem List: (1) UTI (urinary tract infection) ICD Codes: N39.0 - Urinary tract infection, site not specified SNOMED: 55192475 (2) Sepsis ICD Codes: A41.9 - Sepsis, unspecified organism SNOMED: 15570319 (3) Toxic metabolic encephalopathy ICD Codes: G92 - Toxic encephalopathy SNOMED: 351316130 (4) Lactic acid acidosis ICD Codes: E87.2 - Acidosis SNOMED: 91794484 (5) Hypernatremia ICD Codes: E87.0 - Hyperosmolality and hypernatremia SNOMED: 489033368 (6) Upper sacral area unstageable pressure ulcer (7) PNA (pneumonia) ICD Codes: J18.9 - Pneumonia, unspecified organism SNOMED: 191583969 Status: progressing Assessment/Plan: 77 year old [place] multiple [place]ids from [place] with fever, admitted to telemetry for sepsis secondary to complicated pseudomonas UTI vs PNA (CAP vs aspiration), sacra decub ulcer infection (less likely), toxic metabolic encephalopathy, severe dehydration, lactic acidosis and hypernatremia. 1. sepsis secondary to complicated pseudomonas UTI vs PNA (CAP vs aspiration), sacra decub ulcer infection (less likely),Upon reviewing the chart she has a history of MRSA PNA, klebsiella PNA and aspiration risk. CXR showed segmental atelectasis versus infiltrate in the left lung base mildly increased interstitial markings..ID consult with Dr. Solis, appreciated. Urine culture with pseudomonas, and yeast. antibiotics changed from ceftriaxone, azithromycin, flagyl to Meropenem and Azithromycin. Urine and sputum both growing pseudomonas aeruginosa sensitive to meropenem. resistant to Zosyn, intermediate to cefepime. blood cultures are negative. Vancomycin and diflucan was added on 10/18 when she developed worsening leukocytosis and tachycardia. 2. Toxic metabolic encephalopathy. Multifactorial. Has had work up with MRI and EEG previous admission. 3. Lactic acidosis and severe dehydration with contraction alkalosis (? furosemide use). Will trend lactate. Hold Furosemide 4. Hypernatremia. Added Free water via PEG. Resolving 5. Neuro: history of previous CVAs. Continue Lipitor, Hold antihypertensive medications for now. 6. Thrombocytosis- Likely reactive, it's improving 7. Sacral decub: Wound care, consult with Dr. Jackson 8. Paraprotein gap of 5.8, likely due to dehydration. Resolved 9.Dm. Increase insulin since feeds increased via peg Code status: full code (POLST reviewed) DC planning back to [facility] in 2-3 days Time of this note may not necessarily reflect time of encounter. I spent 40 minutes on this encounter. 50% or greater on care coordination. Subjective Date patient seen: Oct 20, 2018 ROS Limited/Unobtainable: Yes Allergies: Coded Allergies: No Known Allergies (Unverified , 02/04/17) Subjective baseline non verbal opens eyes to voice Became diaphoretic and tachycardic yesterday CXR with persistent L infiltrate Vancomycin and diflucan added yesterday 10/18 Objective Last 24 Hour Vital Signs Date Time Temp Pulse Resp B/P (MAP) Pulse Ox O2 Delivery O2 Flow Rate FiO2 10/20/18 12:00 97.9 59 16 138/71 (93) 100 10/20/18 09:00 Nasal Cannula 2.0 10/20/18 09:00 74 133/72 10/20/18 08:00 98.1 86 16 125/62 (83) 100 10/20/18 04:00 98.3 74 18 133/72 (92) 96 10/20/18 00:00 98.4 75 18 150/68 (95) 96 10/19/18 23:17 61 124/73 10/19/18 21:00 Nasal Cannula 2.0 10/19/18 20:00 99.0 59 20 124/53 (76) 100 10/19/18 19:41 97 Nasal Cannula 2.0 28 10/19/18 16:00 98.4 83 16 132/66 (88) 97 Intake and Output 10/19/18 10/20/18 18:59 06:59 Intake Total 560 ml 1635.000 ml Output Total 850 ml 1000 ml Balance -290 ml 635.000 ml Free Water 500 ml 500 ml IV Total 475.000 ml Tube Feeding 60 ml 660 ml Output Urine Total 850 ml 1000 ml Laboratory Tests 10/20/18 07:55: White Blood Count 8.5, Red Blood Count 3.70L, Hemoglobin 11.7L, Hematocrit 34.8L , Mean Corpuscular Volume 94, Mean Corpuscular Hemoglobin 31.7H, Mean Corpuscular Hemoglobin Concent 33.7, Red Cell Distribution Width 13.1, Platelet Count 383, Mean Platelet Volume 6.9, Neutrophils (%) (Auto) 64.7, Lymphocytes (% ) (Auto) 25.7, Monocytes (%) (Auto) 6.4, Eosinophils (%) (Auto) 2.3, Basophils ( %) (Auto) 0.9, Sodium Level 142, Potassium Level 4.1, Chloride Level 106, Carbon Dioxide Level 30, Anion Gap 6, Blood Urea Nitrogen 8, Creatinine 0.5L, Estimat Glomerular Filtration Rate , Glucose Level 229H, Calcium Level 8.4L, Vancomycin Level Trough 14.0H Height (Feet): 5 Height (Inches): 2.00 Weight (Pounds): 110 Objective General Appearance: Chronically Ill, in no acute distress. non verbal, + diaphoretic Head: normocephalic, poor dentition ENT: dry mucus membranes Neck: limited range of motion, supple, no JVD Respiratory: lungs clear, normal breath sounds Cardiovascular: RRR, S1S2, no m/r/g Gastrointestinal: non tender, soft, no mass, other - g tube stoma CDI Musculoskeletal: decreased range of motion Neurologic: responsive, aphasic, +hemiplegia Skin: Stage 4 sacral decub ulcer, clean, no discharge or odor Abdullahi Muhammad M.D. Oct 20, 2018 13:42
[2018-10-20] MEDS ORDERED: Tubing IV Secondary IV ONE (14:32)
[2018-10-20] MEDS ORDERED: NS 275ml ONE (15:52)
[2018-10-20 16:00] VITALS: BP 136/75
[2018-10-20] MEDS: Levemir Flexpen SUBQ SCH (17:53)
--- NOTE | 2018-10-20 19:15 | NUR ---
HAND-OFF: Report given to FELIX Jimenez. Family at bedside.
--- NOTE | 2018-10-20 19:40 | NUR ---
NURSE NOTES: Pt is in bed, awake. Pt follows with eye. No acute distress noted. Vitals stable. HOB elevated. Glucerna 1.2 running at 60ml/hr. Nunez draining yellow urine. Pt is on 2L n/c. Pt will be turned q 2hrs. Wound dressing dry and intact. Wound dressings were changed during last shift and pictures uploaded. Family by bedside.Fall precaution in place. Bed locked low in position,side rails up and call light within reach. Bed alarm on. Pt will be monitored.
[2018-10-20 20:00] VITALS: BP 146/89
[2018-10-21] VITALS: BP 112/66
--- NOTE | 2018-10-21 03:00 | NUR ---
NURSE NOTES: Pt tolerating g-tube feeding well, no residual. HOB elevated. G-tube flushed. Pt turned frequently.
[2018-10-21 04:00] VITALS: BP 134/63
[2018-10-21] MEDS: Levemir Flexpen SUBQ SCH ×2 (05:56→17:00)
[2018-10-21] MEDS: NovoLOG Insulin Flexpen SUBQ SCH ×3 (05:57→18:04)
--- NOTE | 2018-10-21 07:16 | NUR ---
HAND-OFF: Report given to FELIX Guerra.
[2018-10-21 08:00] VITALS: BP 154/68
--- NOTE | 2018-10-21 08:08 | NUR ---
NURSE NOTES: Received report from FELIX Jimenez. Pt is in bed, awake, nonverbal, able to follow with eyes, no apparent distress noted. HOB elevated, bed in lowest position with side rails up, call light within reach.
[2018-10-21] MEDS: Fluconazole 100mg tab ORAL SCH (09:01)
[2018-10-21] MEDS: Ascorbic Acid 500mg tab ORAL SCH ×2 (09:01→18:03)
[2018-10-21] MEDS: Vancomycin 750mg/NS 275ml IVPB SCH ×2 (09:02)
[2018-10-21] MEDS: Metoprolol Tartrate 12.5mg TAB ORAL SCH ×2 (09:02→21:59)
[2018-10-21] MEDS: Heparin 5000 units/ml inj SUBQ SCH ×2 (09:03→22:08)
--- NOTE | 2018-10-21 09:57 | Surgery Progress Note ---
Surgery Progress Note Subjective Symptoms: improved Objective Last 24 Hour Vital Signs Date Time Temp Pulse Resp B/P (MAP) Pulse Ox O2 Delivery O2 Flow Rate FiO2 10/21/18 09:02 65 154/68 10/21/18 08:11 Nasal Cannula 2.0 10/21/18 04:00 98.4 69 18 134/63 (86) 95 10/21/18 00:00 97.5 62 18 112/66 (81) 98 10/20/18 21:26 80 146/89 10/20/18 21:00 Nasal Cannula 2.0 10/20/18 20:00 98.6 80 21 146/89 (108) 95 10/20/18 16:00 98.2 66 17 136/75 (95) 96 10/20/18 12:00 97.9 59 16 138/71 (93) 100 I&O Intake and Output 10/20/18 10/21/18 19:00 07:00 Intake Total 1086.666 ml 1535.000 ml Output Total 900 ml 1200 ml Balance 186.666 ml 335.000 ml Free Water 500 ml 500 ml IV Total 466.666 ml 375.000 ml Tube Feeding 120 ml 660 ml Output Urine Total 900 ml 1200 ml # Bowel Movements 2 Dressing: saturated Wound: clean Cardiovascular: RSR Respiratory: clear Abdomen: soft, flat, non-tender, present bowel sounds Extremities: no edema, other Plan Problems: (1) G tube feedings (2) Rash (3) Sepsis Assessment & Plan: sudden elevated wbc. now resolved on abx improving iv fluids tube feeds iv abx will monitor trend labs thank you (4) Lactic acid acidosis Assessment & Plan: resolved with resuscitation overall much improved d/c planning okay to d/c from surgical standpoint with outpatient wound care (5) Upper sacral area unstageable pressure ulcer Assessment & Plan: Patient presents with multiple wounds. partial thickness L ear wound. Skin is clean and intact. Full thickness sacral pressure injury with slough centrally at sacrococcygeal area with surrounding pink granulation.(L)Area of slough measures (L)1.4cm x (W) 1cm. Total pressure injury measures (L)4cm x (W)5.5cm. R and L heels are soft ,pink and each heel are easily blanchable. Tx.Plan: Cleanse sacral wound with saline. Apply Therahoney.Apply Moisture Barrier Paste to periwound. Cover with Optifoam drsg. Change every 3 days and prn. Apply Cavilon Skin Barrier to both heels. Cover each heel with Opifoam drsg. Change every 7 days and prn. APM/LOU Mattress overlay. Reposition at least every 2hours or as tolerated. Off-load heels with pillow. Akhil Jackson Oct 21, 2018 09:57
--- NOTE | 2018-10-21 11:11 | General Progress Note ---
Assessment/Plan Problem List: (1) UTI (urinary tract infection) ICD Codes: N39.0 - Urinary tract infection, site not specified SNOMED: 86343699 (2) Sepsis ICD Codes: A41.9 - Sepsis, unspecified organism SNOMED: 18276864 (3) Toxic metabolic encephalopathy ICD Codes: G92 - Toxic encephalopathy SNOMED: 729888073 (4) Lactic acid acidosis ICD Codes: E87.2 - Acidosis SNOMED: 88633393 (5) Hypernatremia ICD Codes: E87.0 - Hyperosmolality and hypernatremia SNOMED: 327369757 (6) Upper sacral area unstageable pressure ulcer (7) PNA (pneumonia) ICD Codes: J18.9 - Pneumonia, unspecified organism SNOMED: 309348914 Status: progressing Assessment/Plan: 77 year old female with multiple comorbids from [place] with fever, admitted to telemetry for sepsis secondary to complicated pseudomonas UTI vs PNA (CAP vs aspiration), sacra decub ulcer infection (less likely), toxic metabolic encephalopathy, severe dehydration, lactic acidosis and hypernatremia. C diff negative 1. sepsis secondary to complicated pseudomonas UTI vs PNA (CAP vs aspiration), sacra decub ulcer infection (less likely),Upon reviewing the chart she has a history of MRSA PNA, klebsiella PNA and aspiration risk. CXR showed segmental atelectasis versus infiltrate in the left lung base mildly increased interstitial markings..ID consult with Dr. Solis appreciated. Urine culture with pseudomonas, and yeast. antibiotics changed from ceftriaxone, azithromycin, flagyl to Meropenem and Azithromycin. Urine and sputum both growing pseudomonas aeruginosa sensitive to meropenem. resistant to Zosyn, intermediate to cefepime. blood cultures are negative. Vancomycin and diflucan was added on 10/18 when she developed worsening leukocytosis and tachycardia. Vancomycin stopped with clinically improvement. Meropenem day 5, Diflucan day 3 2. Toxic metabolic encephalopathy. Multifactorial. Has had work up with MRI and EEG previous admission. 3. Lactic acidosis and severe dehydration with contraction alkalosis (? furosemide use). Will trend lactate. Hold Furosemide 4. Hypernatremia. Added Free water via PEG. Resolving 5. Neuro: history of previous CVAs. Continue Lipitor, Hold antihypertensive medications for now. 6. Thrombocytosis- Likely reactive, it's improving 7. Sacral decub: Wound care, consult with Dr. Jackson 8. Paraprotein gap of 5.8, likely due to dehydration. Resolved 9.Dm. Increase insulin since feeds increased via peg Code status: full code (POLST reviewed) DC planning back to [facility] in 1-2 days Time of this note may not necessarily reflect time of encounter. I spent 40 minutes on this encounter. 50% or greater on care coordination. Subjective Date patient seen: Oct 21, 2018 ROS Limited/Unobtainable: Yes Allergies: Coded Allergies: No Known Allergies (Unverified , 02/04/17) Subjective baseline non verbal opens eyes to voice clinically better Objective Last 24 Hour Vital Signs Date Time Temp Pulse Resp B/P (MAP) Pulse Ox O2 Delivery O2 Flow Rate FiO2 10/21/18 09:02 65 154/68 10/21/18 08:11 Nasal Cannula 2.0 10/21/18 08:00 98.6 65 18 154/68 (96) 97 10/21/18 04:00 98.4 69 18 134/63 (86) 95 10/21/18 00:00 97.5 62 18 112/66 (81) 98 10/20/18 21:26 80 146/89 10/20/18 21:00 Nasal Cannula 2.0 10/20/18 20:00 98.6 80 21 146/89 (108) 95 10/20/18 16:00 98.2 66 17 136/75 (95) 96 10/20/18 12:00 97.9 59 16 138/71 (93) 100 Intake and Output 10/20/18 10/21/18 19:00 07:00 Intake Total 1086.666 ml 1535.000 ml Output Total 900 ml 1200 ml Balance 186.666 ml 335.000 ml Free Water 500 ml 500 ml IV Total 466.666 ml 375.000 ml Tube Feeding 120 ml 660 ml Output Urine Total 900 ml 1200 ml # Bowel Movements 2 Height (Feet): 5 Height (Inches): 2.00 Weight (Pounds): 110 Objective General Appearance: Chronically Ill, in no acute distress. non verbal, + diaphoretic Head: normocephalic, poor dentition ENT: dry mucus membranes Neck: limited range of motion, supple, no JVD Respiratory: lungs clear, normal breath sounds Cardiovascular: RRR, S1S2, no m/r/g Gastrointestinal: non tender, soft, no mass, other - g tube stoma CDI Musculoskeletal: decreased range of motion Neurologic: responsive, aphasic, +hemiplegia Skin: Stage 4 sacral decub ulcer, clean, no discharge or odor Abdullahi Muhammad M.D. Oct 21, 2018 11:11
[2018-10-21 12:00] VITALS: BP 111/73
--- NOTE | 2018-10-21 15:24 | Cardiology Report ---
APPROVED REPORT EKG Measurement Heart [id number] IN [id number] Normal sinus rhythm Anterior infarct, age undetermined Abnormal ECG
--- NOTE | 2018-10-21 15:28 | Infectious Diseases Prog Note ---
Assessment/Plan Assessment/Plan ASSESSMENT AND PLAN: 1. pseudomonas uti, pseudomonas pna, sepsis, ? fungal uti, uti, ua worse with many yeast, leukocytosis noted yesterday and abx changed, no diarrhea to suggest c.diff. - meropenem - day # 5 abx - diflucan x 3 days - d/w RN - leukocytosis resolved - monitor labs - c.diff. negative 2. The patient has history of diabetes. 3. Hypertension. 4. Blood sugar and blood pressure treatment per primary for diabetes and hypertension. 5. The patient has history of stroke and hemiparesis. 6. History of benign neoplasm meninges. 7. Dysphagia, G-tube. 8. Aspiration risk. 9. Skin care protocol. 10. History of encephalopathy and confusion. 11. Dementia. 12. Encephalopathy. 13. History of sepsis and respiratory failure. 14. Lactic acidosis. 15. History of renal failure. 16. No known drug allergies. 17. Social history is negative. 18. Family history is noncontributory. 19. MAR was noted. 20. Case was discussed with RN. 21. Continue treatment per primary consultants. 22. wound care per Surgery an protocol 23. mrsa colonization and isolation Subjective Constitutional: Denies: fever HEENT: Denies: congestion Respiratory: Denies: shortness of breath Cardiovascular: Denies: chest pain Gastrointestinal/Abdominal: Denies: nausea, vomiting, diarrhea Genitourinary: Reports: other Neurologic: Denies: headache Psychiatric: Denies: depression Skin: Denies: rash Hematologic: Denies: bleeding Musculoskeletal: Denies: pain Allergies: Coded Allergies: No Known Allergies (Unverified , 02/04/17) Objective Vital Signs Last 24 Hour Vital Signs Date Time Temp Pulse Resp B/P (MAP) Pulse Ox O2 Delivery O2 Flow Rate FiO2 10/21/18 12:00 96.8 82 16 111/73 (86) 100 10/21/18 09:02 65 154/68 10/21/18 08:11 Nasal Cannula 2.0 10/21/18 08:00 98.6 65 18 154/68 (96) 97 10/21/18 04:00 98.4 69 18 134/63 (86) 95 10/21/18 00:00 97.5 62 18 112/66 (81) 98 10/20/18 21:26 80 146/89 10/20/18 21:00 Nasal Cannula 2.0 10/20/18 20:00 98.6 80 21 146/89 (108) 95 10/20/18 16:00 98.2 66 17 136/75 (95) 96 Height (Feet): 5 Height (Inches): 2.00 Weight (Pounds): 110 General Appearance: no acute distress HEENT: normocephalic, atraumatic, anicteric Respiratory/Chest: lungs clear - mostly clear bilatera, ? 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 There is suggestion of increased infiltrate at the left lung base. There is some atelectasis at the right lung base. The heart size is normal. Impression: Increased left basilar infiltrate, over 3 days Chest x-ray - 10/18/18 - Technique: One view of the chest Comparison: 10/17/2018 Findings: Less optimal inspiration currently. Basilar atelectatic changes are demonstrated. Infiltrate at the left lung base is unchanged from the prior exam. Heart size is upper limits of normal. The aorta is calcified and tortuous Impression: Hypoventilatory exam with right basilar atelectasis. Unchanged left basilar infiltrate Microbiology Date/Time Source Procedure Growth Status 10/18/18 16:26 Blood Blood Culture - Preliminary NO GROWTH AFTER 48 HOURS Resulted 10/18/18 16:20 Blood Blood Culture - Preliminary NO GROWTH AFTER 48 HOURS Resulted 10/20/18 11:00 Stool Clostridium difficile Toxin Assay - Final Complete 10/18/18 15:30 Indwelling Cath Urine Culture - Final Nandini Tropicalis Complete Labs Test 10/18/18 15:30 10/19/18 05:10 10/20/18 07:55 Urine Color Pale yellow Urine Appearance Very cloudy Urine pH 7 (4.5-8.0) Urine Specific [place] 1.010 (1.005-1.035) Urine Protein 3+ (NEGATIVE) Urine Glucose (UA) 1+ (NEGATIVE) Urine Ketones 1+ (NEGATIVE) Urine Blood 5+ (NEGATIVE) Urine Nitrite Positive (NEGATIVE) Urine Bilirubin Negative (NEGATIVE) Urine Urobilinogen Normal MG/DL (0.0-1.0) Urine Leukocyte Esterase 3+ (NEGATIVE) Urine RBC Tntc /HPF (0 - 2) Urine WBC Tntc /HPF (0 - 2) Urine Squamous Epithelial Cells Occasional /LPF Urine Bacteria Moderate /HPF (NONE) Urine Yeast Many /HPF (NONE) White Blood Count 9.8 K/UL (4.8-10.8) 8.5 K/UL (4.8-10.8) Red Blood Count 3.41 M/UL (4.20-5.40) 3.70 M/UL (4.20-5.40) Hemoglobin 10.7 G/DL (12.0-16.0) 11.7 G/DL (12.0-16.0) Hematocrit 32.2 % (37.0-47.0) 34.8 % (37.0-47.0) Mean Corpuscular Volume 95 FL (80-99) 94 FL (80-99) Mean Corpuscular Hemoglobin 31.4 PG (27.0-31.0) 31.7 PG (27.0-31.0) Mean Corpuscular Hemoglobin Concent 33.2 G/DL (32.0-36.0) 33.7 G/DL (32.0-36.0) Red Cell Distribution Width 12.3 % (11.6-14.8) 13.1 % (11.6-14.8) Platelet Count 376 K/UL (150-450) 383 K/UL (150-450) Mean Platelet Volume 6.9 FL (6.5-10.1) 6.9 FL (6.5-10.1) Neutrophils (%) (Auto) 71.0 % (45.0-75.0) 64.7 % (45.0-75.0) Lymphocytes (%) (Auto) 22.0 % (20.0-45.0) 25.7 % (20.0-45.0) Monocytes (%) (Auto) 5.1 % (1.0-10.0) 6.4 % (1.0-10.0) Eosinophils (%) (Auto) 1.4 % (0.0-3.0) 2.3 % (0.0-3.0) Basophils (%) (Auto) 0.6 % (0.0-2.0) 0.9 % (0.0-2.0) Sodium Level 143 MMOL/L (136-145) 142 MMOL/L (136-145) Potassium Level 3.1 MMOL/L (3.5-5.1) 4.1 MMOL/L (3.5-5.1) Chloride Level 106 MMOL/L (98-107) 106 MMOL/L (98-107) Carbon Dioxide Level 32 MMOL/L (21-32) 30 MMOL/L (21-32) Anion Gap 5 mmol/L (5-15) 6 mmol/L (5-15) Blood Urea Nitrogen 7 mg/dL (7-18) 8 mg/dL (7-18) Creatinine 0.5 MG/DL (0.55-1.30) 0.5 MG/DL (0.55-1.30) Estimat Glomerular Filtration Rate mL/min (>60) mL/min (>60) Glucose Level 208 MG/DL (74-106) 229 MG/DL (74-106) Calcium Level 8.7 MG/DL (8.5-10.1) 8.4 MG/DL (8.5-10.1) Total Bilirubin 0.3 MG/DL (0.2-1.0) Aspartate Amino Transf (AST/SGOT) 24 U/L (15-37) Alanine Aminotransferase (ALT/SGPT) 17 U/L (12-78) Alkaline Phosphatase 72 U/L (46-116) Total Protein 6.4 G/DL (6.4-8.2) Albumin 2.1 G/DL (3.4-5.0) Globulin 4.3 g/dL Albumin/Globulin Ratio 0.5 (1.0-2.7) Vancomycin Level Trough 14.0 ug/mL (5.0-12.0) Current Medications Medications (Trade) Dose Ordered Sig/Wayne Route PRN Reason Start Time Stop Time Status Last Admin Dose Admin Acetaminophen (Tylenol) 650 mg Q4H PRN ORAL fever 10/16/18 17:15 11/13/18 17:14 Ascorbic Acid (Vitamin C) 250 mg TWICE A DAY ORAL 10/19/18 18:00 11/18/18 17:59 10/21/18 09:01 Dextrose (Dextrose 50%) 25 ml Q30M PRN IV Hypoglycemia 10/16/18 15:45 11/14/18 01:44 Dextrose (Dextrose 50%) 50 ml Q30M PRN IV Hypoglycemia 10/16/18 15:45 11/14/18 01:44 Fluconazole (Diflucan) 100 mg DAILY ORAL 10/20/18 09:00 10/27/18 08:59 10/21/18 09:01 Heparin Sodium (Porcine) (Heparin 5000 units/ml) 5,000 units EVERY 12 HOURS SUBQ 10/16/18 21:00 11/13/18 20:59 10/21/18 09:03 Hydromorphone HCl (Dilaudid) 0.5 mg Q6H PRN IVP For Pain 10/16/18 17:15 10/21/18 17:14 10/21/18 13:21 Insulin Aspart (NovoLOG) EVERY 6 HOURS SUBQ 10/16/18 18:00 11/14/18 06:29 10/21/18 13:19 Insulin Detemir (Levemir) 10 units BIAC SUBQ 10/20/18 16:30 11/17/18 20:59 10/21/18 05:56 Meropenem 1 gm/ Sodium Chloride 100 ml @ 200 mls/hr Q8HR IVPB 10/19/18 14:00 10/24/18 05:59 10/21/18 13:04 Metoprolol Tartrate (Lopressor) 12.5 mg Q12HR ORAL 10/18/18 21:00 11/17/18 20:59 10/21/18 09:02 Pantoprazole (Protonix) 40 mg DAILY ORAL 10/17/18 09:00 11/14/18 08:59 10/21/18 09:01 Povidone Iodine (Betadine Kathy) 1 applic PRN PRN TOPIC Itching 10/17/18 11:30 11/15/18 11:29 Vancomycin HCl (Vanco rx to dose) 1 ea DAILY PRN MISC Per rx protocol 10/18/18 18:30 11/17/18 18:29 Vancomycin HCl 750 mg/Sodium Chloride 275 ml @ 183.333 mls/hr Q12HR IVPB 10/19/18 09:00 10/24/18 08:59 10/21/18 09:02 Milton Valladares MD Oct 21, 2018 15:28
[2018-10-21 16:00] VITALS: BP 120/74
--- NOTE | 2018-10-21 19:10 | NUR ---
HAND-OFF: Report given to FELIX Jimenez.
[2018-10-21 20:00] VITALS: BP 135/56
--- NOTE | 2018-10-21 21:00 | NUR ---
NURSE NOTES: t is in bed, awake. Pt follows with eye. No acute distress noted. Vitals stable. HOB elevated. Glucerna 1.2 running at 60ml/hr. Feeding tube changed and another bottole of Glucerna hanged.Nunez draining yellow urine. Pt is on 2L n/c. Pt will be turned q 2hrs. Wound dressing dry and intact. Wound dressings were changed during last shift . Family by bedside.Fall precaution in place. Bed locked low in position,side rails up and call light within reach. Bed alarm on. Pt will be monitored.
[2018-10-22] VITALS: BP 128/53
[2018-10-22] MEDS: NovoLOG Insulin Flexpen SUBQ SCH ×3 (00:12→12:54)
[2018-10-22 04:00] VITALS: BP 100/58
--- NOTE | 2018-10-22 05:01 | NUR ---
NURSE NOTES: Pt is cleaned and repositioned. Wound dressing changed. Pt had soft BM. Pt tolerating g-tube feeding well. HOB elevated.
[2018-10-22] MEDS ORDERED: Levemir Flexpen SUBQ SCH ×2 (06:30→16:30)
--- NOTE | 2018-10-22 07:30 | NUR ---
HAND-OFF: Report given to Yolanda Deleon RN.
--- NOTE | 2018-10-22 07:49 | NUR ---
NURSE NOTES: Report received from FELIX Jimenez. Pt is lying comfortably in semi-fowlers with no signs of distress. A+Ox1, showing no signs of pain/SOB. Respirations are even and unlabored on room air. IV site is intact and saline locked. Nunez is in place and patent, draining at the foot of the bed. G-tube is in place and running feeding @ prescribed rate. Bed is at lowest position, brakes engaged, siderails x2, bed alarm on, and call light within reach. Pt is in stable condition at this time;will continue to monitor.
[2018-10-22 08:00] VITALS: BP 114/68
[2018-10-22 08:30] LABS: BASOPHILS % (AUTO) 0.9 % (0.0-2.0); EOSINOPHILS % (AUTO) 1.8 % (0.0-3.0); HEMATOCRIT 33.1 % (37.0-47.0); HEMOGLOBIN 11.1 G/DL (12.0-16.0); LYMPHOCYTES % (AUTO) 31.8 % (20.0-45.0); MEAN CORPUSCULAR VOLUME 95 FL (80-99); MONOCYTES % (AUTO) 5.4 % (1.0-10.0); NEUTROPHILS % (AUTO) 60.1 % (45.0-75.0); PLATELET COUNT 376 K/UL (150-450); RED BLOOD COUNT 3.49 M/UL (4.20-5.40); RED CELL DISTRIBUTION WIDTH 13.4 % (11.6-14.8)
--- NOTE | 2018-10-22 08:42 | NUR ---
RADIOLOGY DEPT., CHEST X-RAY DONE. Beatris SILVERMAN
[2018-10-22 09:07] LABS: ANION GAP 7 mmol/L (5-15); BLOOD UREA NITROGEN 10 mg/dL (7-18); CALCIUM 8.7 MG/DL (8.5-10.1); CARBON DIOXIDE 28 MMOL/L (21-32); CHLORIDE 101 MMOL/L (98-107); CREATININE 0.5 MG/DL (0.55-1.30); SODIUM 136 MMOL/L (136-145)
[2018-10-22] MEDS: Metoprolol Tartrate 12.5mg TAB ORAL SCH (09:39)
[2018-10-22] MEDS: Fluconazole 100mg tab ORAL SCH (09:39)
[2018-10-22] MEDS: Ascorbic Acid 500mg tab ORAL SCH (09:39)
[2018-10-22] MEDS: Heparin 5000 units/ml inj SUBQ SCH (09:40)
--- NOTE | 2018-10-22 11:26 | NUR ---
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
--- NOTE | 2018-10-22 11:30 | Diagnostic Imaging Report ---
Indication: Abnormal chest sounds Technique: One view of the chest Comparison: 10/18/2018 Findings: There is persistent atelectasis or linear scarring at the left lung base. There may be some residual consolidation at the left lung base. Very mild interstitial prominence and central bronchial wall thickening are likely on the basis of senescent changes. Impression: Unchanged, over 4 days, findings as above.
[2018-10-22] MEDS ORDERED: DIFLUCAN100 MG ORAL (11:37)
[2018-10-22] MEDS ORDERED: MEROPENEM-1 GM/50 ML IV (11:37)
--- NOTE | 2018-10-22 11:38 | Discharge Summary ---
Discharge Summary Hospital Course Date of Admission Oct 14, 2018 at 14:18 Date of Discharge 10/22/2018 Admitting Diagnosis sepsis, generalized weakness HPI Tami Doe is a 77 year old female who was admitted on Oct 14, 2018 at 14:18 for Sepsis, Generalized Weakness Consultations ID: Dr. Solis Surgery: Hospital Course 77 year old female with multiple comorbids from [place] with fever, admitted to telemetry for sepsis secondary to complicated pseudomonas UTI vs PNA (CAP vs aspiration), sacral decub ulcer infection (less likely), toxic metabolic encephalopathy, severe dehydration, lactic acidosis and hypernatremia. C diff negative 1. sepsis secondary to complicated pseudomonas UTI vs PNA (CAP vs aspiration), sacra decub ulcer infection (less likely),Upon reviewing the chart she has a history of MRSA PNA, klebsiella PNA and aspiration risk. CXR showed segmental atelectasis versus infiltrate in the left lung base mildly increased interstitial markings..ID consult with Dr. Solis, appreciated. Urine culture with pseudomonas, and yeast. antibiotics changed from ceftriaxone, azithromycin, flagyl to Meropenem and Azithromycin. Urine and sputum both growing pseudomonas aeruginosa sensitive to meropenem. resistant to Zosyn, intermediate to cefepime. blood cultures are negative. Vancomycin and diflucan was added on 10/18 when she developed worsening leukocytosis and tachycardia. Vancomycin stopped with clinically improvement. Meropenem day 5, Diflucan day 3. Will continue another 5 days of IV meropenem and 3 more days of Diflucan per ID 2. Toxic metabolic encephalopathy. Multifactorial. Has had work up with MRI and EEG previous admission. 3. Lactic acidosis and severe dehydration with contraction alkalosis (? furosemide use). Will trend lactate. Hold Furosemide 4. Hypernatremia. Added Free water via PEG. Resolved 5. Neuro: history of previous CVAs. Continue Lipitor, Hold antihypertensive medications for now. 6. Thrombocytosis- Likely reactive, resolved 7. Sacral decub: Wound care, consult with Dr. Jackson 8. Paraprotein gap of 5.8, likely due to dehydration. Resolved 9.Dm. Increase insulin since feeds increased via peg Code status: full code (POLST reviewed) DC planning back to [facility] I spent 35 minutes on this encounter. Time of this note may not necessarily reflect time of encounter. Discharge Medications New Medications: Meropenem-0.9% Sodium Chloride (Meropenem-0.9% NaCl 1 Gram/50) 1 Gm/50 Ml Piggyback 1 GM IV EVERY 8 HOURS for 5 Days, #5 BAG 0 Refills Fluconazole* (Diflucan*) 100 Mg Tablet 100 MG ORAL DAILY for 3 Days, #3 TAB Continued Medications: Acetaminophen* (Acetaminophen*) 160 Mg/5 Ml Solution 640 MG GT Q6H PRN for Mild Pain/Temp > 100.5, ML Acetylcysteine* (Acetylcysteine*) 100 Mg/1 Ml Vial 100 MG HHN Q4HRT for 60 Days, VIAL Amlodipine Besylate (Norvasc) 5 Mg Tablet 5 MG GT BID, TAB (This prescription has been renewed) Ascorbic Acid* (Vitamin C*) 500 Mg Tablet 500 MG GT BID, #30 TAB 0 Refills Aspirin* (Aspirin*) 81 Mg Tab.chew 81 MG GT ONCE A DAY, TAB (This prescription has been renewed) Atorvastatin Calcium* (Lipitor*) 40 Mg Tablet 40 MG ORAL BEDTIME, #30 TAB 0 Refills Bisacodyl (Bisacodyl) 10 Mg Supp.rect 10 MG RC DAILY PRN for Constipation, SUPP (This prescription has been renewed) Chlorhexidine Gluconate* (Hibiclens*) 118 Ml Liquid 1 APPLIC TOPIC DAILY@1999 for 30 Days, ML Cran/Vitc/Mannose/Inulin/Brom (Uti-Stat Liquid) 3,875 Mg/30 Ml Liquid 30 ML GT DAILY for UTI PPX, ML [D50w] () 50 ML SOLN 25 ML IV Q30M PRN for 50 Days Diphenhydramine Hcl* (Diphenhydramine Hcl*) 25 Mg Capsule 25 MG GT Q6H PRN for Itching, #30 CAP 0 Refills (This prescription has been renewed) Docusate Sodium* (Docusate Sodium*) 100 Mg Capsule 100 MG GT TWICE A DAY, CAP (This prescription has been renewed) Ergocalciferol (Vitamin D2)* (Vitamin D*) 50,000 Unit Capsule 5000 UNIT GT ONCE A WEEK, CAP (This prescription has been renewed) Famotidine (Famotidine) 20 Mg Tablet 20 MG GT BID for 30 Days, #60 TAB Fish Oil (Fish Oil 1,000 mg Capsule) 1 Each Capsule 2000 MG GT BID, CAP Furosemide* (Lasix*) 20 Mg Tablet 20 MG GT DAILY for 30 Days, TAB Gemfibrozil (Gemfibrozil*) 600 Mg Tablet 600 MG GT BID, TAB 0 Refills Heparin Sod (Porcine) (Heparin Sodium*) 5 000/1 Ml Vial 5000 UNITS SUBQ EVERY 12 HOURS for 30 Days, VIAL Hydrocodone Bit/Acetaminophen 5-325* (Coleman 5-325*) 1 Each Tablet 1 TAB ORAL Q6H PRN for For Pain, #10 TAB 0 Refills (This prescription has been renewed) Insulin Aspart (Novolog Flexpen) 100 Unit/1 Ml Insuln.pen 0 UNITS SUBQ Q6HR for 30 Days, EA Insulin Detemir (Levemir Flexpen) 100 Unit/1 Ml Insuln.pen 14 UNITS SUBQ BEDTIME for 30 Days, EA Ipratropium/Albuterol Sulfate (Iprat-Albut 0.5-3(2.5) Mg/3 Ml) 3 Ml Ampul.neb 3 ML IH Q6HR PRN for Shortness of Breath, EA (This prescription has been renewed ) Lactobacillus Rhamnosus Gg* (Culturelle*) 1 Each Capsule 1 CAP GT ONCE A DAY, CAP Magnesium Hydroxide* (Milk Of Magnesia*) 400 Mg/5 Ml Oral.susp 30 ML GT DAILY, ML (This prescription has been renewed) Metformin Hcl* (Metformin Hcl*) 500 Mg Tablet 500 MG GT TWICE A DAY, TAB (This prescription has been renewed) Metoclopramide Hcl* (Metoclopramide Hcl*) 10 Mg/10 Ml Solution 5 ML GT EVERY 6 HOURS PRN for Nausea & Vomiting, ML (This prescription has been renewed) Metoprolol Tartrate (Metoprolol Tartrate) 25 Mg Tablet 12.5 MG NG Q12HR for 90 Days, TAB Multivitamin Liquid* (Multi-Delyn*) 237 Ml Liquid 5 ML GT DAILY, ML (This prescription has been renewed) Multivitamin With Minerals (Multivitamins With Minerals*) 1 Each Tablet 1 TAB GT DAILY, TAB Na Phos,M-B/Na Phos,Di-Ba* (Fleet Enema*) 133 Ml Enema 133 ML RECTAL DAILY PRN for Constipation, ML 0 Refills (This prescription has been renewed) Nitroglycerin (Nitroglycerin Patch) 1 Each Patch.td24 1 PATCH TDERMAL Q24H for 90 Days, PATCH Ondansetron* (Zofran*) 4 Mg Tablet 4 MG ORAL Q6H PRN for Nausea & Vomiting, TAB (This prescription has been renewed ) Ranitidine Hcl* (Zantac*) 150 Mg Tablet 150 MG GT DAILY, #30 TAB 0 Refills (This prescription has been renewed) Zinc Sulfate (Zinc Sulfate*) 220 Mg Capsule 220 MG GT DAILY, CAP 0 Refills Discontinued Medications: Acetaminophen 160MG/5ML* (Acetaminophen*) 160 Mg/5 Ml Elixir 480 MG GT Q6HR PRN for For Pain, ML 0 Refills Amoxicillin/Potassium Clav 500-125 Tablet* (Augmentin 500-125 Tablet*) 1 Each Tablet 1 TAB GT TWICE A DAY, TAB Cephalexin* (Keflex*) 250 Mg Capsule 250 MG ORAL EVERY 6 HOURS for 3 Days, #12 CAP 0 Refills Doxycycline Monohydrate* (Doxycycline Monohydrate*) 100 Mg Capsule 100 MG GT TWICE A DAY, #14 CAP 0 Refills Discharge Condition Upon Discharge: stable Discharge Disposition Patient was discharged to [facility] Discharge Diagnoses: (1) Pneumonia (2) Electrolyte imbalance (3) Hypernatremia (4) HTN (hypertension) (5) Dehydration (6) Sepsis (7) Lactic acid acidosis (8) DM (diabetes mellitus) (9) Hypernatremia (10) Toxic metabolic encephalopathy (11) UTI (urinary tract infection) Abdullahi Muhammad M.D. Oct 22, 2018 11:38
--- NOTE | 2018-10-22 11:50 | Surgery Progress Note ---
Surgery Progress Note Subjective Symptoms: improved, tolerating diet, voiding well, passing flatus Objective Last 24 Hour Vital Signs Date Time Temp Pulse Resp B/P (MAP) Pulse Ox O2 Delivery O2 Flow Rate FiO2 10/22/18 09:39 64 114/68 10/22/18 09:00 Nasal Cannula 2.0 10/22/18 08:10 96 Nasal Cannula 2.0 28 10/22/18 08:00 97.9 64 17 114/68 (83) 99 10/22/18 04:00 97.8 58 20 100/58 (72) 98 10/22/18 00:00 98.1 20 128/53 (78) 99 10/21/18 21:59 64 135/56 10/21/18 21:00 Nasal Cannula 2.0 10/21/18 20:00 98.1 64 18 135/56 (82) 100 10/21/18 19:43 97 Nasal Cannula 2.0 28 10/21/18 16:00 96.8 68 19 120/74 (89) 97 10/21/18 13:51 96.8 10/21/18 12:00 96.8 82 16 111/73 (86) 100 I&O Intake and Output 10/21/18 10/22/18 19:00 07:00 Intake Total 1086.663 ml 1360 ml Output Total 1200 ml 800 ml Balance -113.337 ml 560 ml Free Water 500 ml 500 ml IV Total 466.663 ml 200 ml Tube Feeding 120 ml 660 ml Output Urine Total 1200 ml 800 ml # Bowel Movements 1 2 Dressing: saturated Wound: other Drains: other Cardiovascular: RSR Respiratory: clear Abdomen: soft, non-tender, present bowel sounds Extremities: no cyanosis, other Laboratory Tests Test 10/22/18 07:55 White Blood Count 7.0 K/UL (4.8-10.8) Red Blood Count 3.49 M/UL (4.20-5.40) L Hemoglobin 11.1 G/DL (12.0-16.0) L Hematocrit 33.1 % (37.0-47.0) L Mean Corpuscular Volume 95 FL (80-99) Mean Corpuscular Hemoglobin 31.9 PG (27.0-31.0) H Mean Corpuscular Hemoglobin Concent 33.7 G/DL (32.0-36.0) Red Cell Distribution Width 13.4 % (11.6-14.8) Platelet Count 376 K/UL (150-450) Mean Platelet Volume 7.9 FL (6.5-10.1) Neutrophils (%) (Auto) 60.1 % (45.0-75.0) Lymphocytes (%) (Auto) 31.8 % (20.0-45.0) Monocytes (%) (Auto) 5.4 % (1.0-10.0) Eosinophils (%) (Auto) 1.8 % (0.0-3.0) Basophils (%) (Auto) 0.9 % (0.0-2.0) Sodium Level 136 MMOL/L (136-145) Potassium Level 5.0 MMOL/L (3.5-5.1) Chloride Level 101 MMOL/L (98-107) Carbon Dioxide Level 28 MMOL/L (21-32) Anion Gap 7 mmol/L (5-15) Blood Urea Nitrogen 10 mg/dL (7-18) Creatinine 0.5 MG/DL (0.55-1.30) L Estimat Glomerular Filtration Rate mL/min (>60) Glucose Level 236 MG/DL (74-106) H Calcium Level 8.7 MG/DL (8.5-10.1) Plan Problems: (1) G tube feedings (2) Rash (3) Sepsis Assessment & Plan: sudden elevated wbc. now resolved on abx improving iv fluids tube feeds iv abx will monitor trend labs thank you (4) Lactic acid acidosis Assessment & Plan: resolved with resuscitation overall much improved d/c planning okay to d/c from surgical standpoint with outpatient wound care (5) Upper sacral area unstageable pressure ulcer Assessment & Plan: Patient presents with multiple wounds. partial thickness L ear wound. Skin is clean and intact. Full thickness sacral pressure injury with slough centrally at sacrococcygeal area with surrounding pink granulation.(L)Area of slough measures (L)1.4cm x (W) 1cm. Total pressure injury measures (L)4cm x (W)5.5cm. R and L heels are soft ,pink and each heel are easily blanchable. Tx.Plan: Cleanse sacral wound with saline. Apply Therahoney.Apply Moisture Barrier Paste to periwound. Cover with Optifoam drsg. Change every 3 days and prn. Apply Cavilon Skin Barrier to both heels. Cover each heel with Opifoam drsg. Change every 7 days and prn. APM/LOU Mattress overlay. Reposition at least every 2hours or as tolerated. Off-load heels with pillow. Akhil Jackson Oct 22, 2018 11:50
[2018-10-22 12:00] VITALS: BP 106/60
--- NOTE | 2018-10-22 12:19 | NUR ---
DISCHARGE PATIENT WILL BE RETURNING TO [facility] ROOM [address] T: [phone] FOR NURSE TO NURSE REPORT [facility] HAS BEEN ARRANGED FOR [id number]
--- NOTE | 2018-10-22 14:45 | NUR ---
NURSE NOTES: Report given to nurse Herbert at [facility]. Discharge packet printed and given to [facility] personnel. Pt is to receive IV abx in the [facility], so IV line was not discontinued upon discharge. Per Dr. Muhammad, patient to be discharged with taylor. Wristband removed. VSS. Patient in stable condition. Pt discharged safely along with ambulance personnel via gurney.
== END 2018-10-22 14:45 | DRG 871 ==
LOC: EDBD 12:50 → EDUNIT# 12:50 → EMR 14:10 → 2E 14:18 → EDBEDREQ 15:34 → 4E 10-16 15:52
DX: A41.9 Sepsis, unspecified organism (principal); G92 Toxic encephalopathy; J15.6 Pneumonia due to other Gram-negative bacteria; N39.0 Urinary tract infection, site not specified; E87.0 Hyperosmolality and hypernatremia; Z43.1 Encounter for attention to gastrostomy; B96.5 Pseudomonas (aeruginosa) (mallei) (pseudomallei) as the cause of diseases classified elsewhere; E86.0 Dehydration; Z86.73 Personal history of transient ischemic attack (TIA), and cerebral infarction without residual deficits; I10 Essential (primary) hypertension; E11.9 Type 2 diabetes mellitus without complications; Z79.4 Long term (current) use of insulin; L89.150 Pressure ulcer of sacral region, unstageable; R13.10 Dysphagia, unspecified; F03.90 Unspecified dementia, unspecified severity, without behavioral disturbance, psychotic disturbance, mood disturbance, and anxiety
CPT/HCPCS: 36415; 71045; 80048; 80053; 80202; 81001; 81003; 82164; 82550; 82553; 82962; 83605; 83735; 84100; 84484; 85007; 85025; 86710; 86738; 87040; 87070; 87081; 87086; 87181; 87205; 87324; 93005; 96361; 96365; 96367; 99285; A4246; J1815; J8499; S5561

== ENCOUNTER 2018-11-06 12:04 | Inpatient (IN) | payer MEDICARE, MEDICAID ==
[~2018-11-06] VITALS: Ht 160 cm; Wt 62.6 kg
[~2018-11-06 12:04] MED LIST changes: +ACETAMINOP160 MG/5 M GT; +ASPIRIN81 MG GT; +AUGMENTIN 500-1 EACH GT; +CULTURELLE1 EACH GT; +DIFLUCAN100 MG ORAL; +DIPHENHYDRAMINE25 M1 GT; +DOXYCYCLINE MO100 MG GT; +FISH OIL CAP1000 MG GT; +GEMFIBROZIL600 MG GT; +MEROPENEM-1 GM/50 ML IV; +METOCLOPRA10 MG/10 M GT; +MILK OF MA400 MG/51 GT; +MULTIVITAMINS1 EAC8 GT; +NORCO 5-325 TA1 EACH ORAL; +NORVASC5 MG GT; +VITAMIN C500 M1 GT; +VITAMIN D250000 UNI1 GT; +ZINC SULFATE220 M1 GT; +ZOFRAN4 M3 GT
--- NOTE | 2018-11-06 12:20 | NUR ---
ED Nurse Note: Pt brought in to ER by ambulance from [facility] due to SOB. pt aao x0 and non verbal and bedridden. pt not responding to voice only to deep pain at this moment. skin warm to touch and pressure ulcer on coccyx noted. labored breathing noted with tachycardia. pt is on 15L non-breather mask and saturating at 96%. G-tube present on upper abdomen and 16 Fr FC. 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
[2018-11-06 12:23] VITALS: BP 137/54
[2018-11-06] MEDS: Albuterol ud Inhalation HHN SCH ×3 (12:29→13:49)
[2018-11-06] MEDS: Ipratropium 0.02% Inh Soln 2.5ml UD HHN SCH ×3 (12:29→13:49)
[2018-11-06] MEDS ORDERED: Solu-MEDROL 125mg Inj IVP ONE (12:30)
[2018-11-06] MEDS ORDERED: Acetaminophen 650 MG SUPP RECTAL ONE (12:30)
[2018-11-06 12:35] LABS: APPEARANCE,URINE SLIGHTLY CLOUDY; BILIRUBIN, URINE NEGATIVE (NEGATIVE); COLOR,URINE PALE YELLOW; GLUCOSE, URINE (UA) 4+ (NEGATIVE); KETONES,URINE NEGATIVE (NEGATIVE); LEUKOCYTE ESTERASE ,URINE 3+ (NEGATIVE); NITRITE,URINE POSITIVE (NEGATIVE); PH,URINE 5 (4.5-8.0); PROTEIN,URINE 2+ (NEGATIVE); UROBILINOGEN,URINE NORMAL MG/DL (0.0-1.0)
--- NOTE | 2018-11-06 12:36 | NUR ---
ED Nurse Note: chest x-ray at bedside.
--- NOTE | 2018-11-06 12:37 | NUR ---
ED Nurse Note: RT reminded on ABG.
--- NOTE | 2018-11-06 12:47 | NUR ---
ED Nurse Note: pt is getting breating treatment in bed and pt opened her eyes and looked around. but non verbal to her name yet.
[2018-11-06 12:53] LABS: ALANINE AMINOTRANSFERASE 13 U/L (12-78); ALBUMIN/GLOBULIN RATIO 0.5 (1.0-2.7); ALKALINE PHOSPHATASE 80 U/L (46-116); ANION GAP 14 mmol/L (5-15); ASPARTATE AMINO TRANSFERASE 25 U/L (15-37); BILIRUBIN,TOTAL 0.6 MG/DL (0.2-1.0); BLOOD UREA NITROGEN 79 mg/dL (7-18); CALCIUM 10.1 MG/DL (8.5-10.1); CARBON DIOXIDE 31 MMOL/L (21-32); CHLORIDE 120 MMOL/L (98-107); CKMB < 0.5 NG/ML (0.0-3.6); CREATINE KINASE 100 U/L (26-308); CREATININE 1.5 MG/DL (0.55-1.30)
[2018-11-06 12:55] LABS: SODIUM 166 MMOL/L (136-145)
[2018-11-06 13:14] LABS: HEMATOCRIT 45.1 % (37.0-47.0); HEMOGLOBIN 13.7 G/DL (12.0-16.0); MEAN CORPUSCULAR VOLUME 103 FL (80-99); PLATELET COUNT 185 K/UL (150-450); RED BLOOD COUNT 4.37 M/UL (4.20-5.40); RED CELL DISTRIBUTION WIDTH 14.7 % (11.6-14.8)
[2018-11-06 13:17] LABS: WHITE BLOOD COUNT 22.2 K/UL (4.8-10.8)
[2018-11-06] MEDS ORDERED: MEROPENEM1 GM IV (13:43)
[2018-11-06] MEDS ORDERED: ZOSYN 3.373.375 GM/1 IVPB (13:43)
[2018-11-06] MEDS ORDERED: Meropenem 1 GM in NS 55 ML IVPB ONE (13:45)
[2018-11-06] MEDS ORDERED: FLEET ENEMA133 ML RECTAL (13:51)
[2018-11-06] MEDS ORDERED: ATORVASTATIN CA40 MG GT (13:53)
[2018-11-06] MEDS ORDERED: FLUCONAZOLE100 MG GT (13:53)
--- NOTE | 2018-11-06 13:57 | Diagnostic Imaging Report ---
Indication: Dyspnea Comparison: 10/22/2018 A single view chest radiograph was obtained. Findings: There is pulmonary vascular congestion which appears stable. There is suggestion of small bilateral pleural effusions and atelectasis. Bones are osteopenic. IMPRESSION: Bilateral pleural effusions appear increased. Pulmonary vascular congestion
[2018-11-06] MEDS ORDERED: HYDROmorphone 1mg/ml Carpuject IVP PRN (14:00)
[2018-11-06] MEDS ORDERED: Albuterol/Ipratropium 3ml neb HHN PRN (14:00)
--- NOTE | 2018-11-06 14:07 | History and Physical ---
History of Present Illness General Date patient seen: Nov 06, 2018 Reason for Hospitalization: Dyspnea/Respdistress Present Illness HPI 77-year-old female with multiple comorbidities, senior living resident, nonverbal at baseline, multiple recent admissions for sepsis secondary to pneumonia, UTI and fungal infections. She was finishing a course of antibiotics with meropenem at the [facility] facility she was staying at until she developed fevers and was desaturating. She was therefore referred to the hospital. Patient is nonverbal at baseline due to previous stroke and information therefore is obtained from reviewing the medical chart, conversation with the ED attending, and reviewing senior living records. Past Medical/Surgical History: (1) Hypernatremia (2) Abscess (3) HTN (hypertension) (4) Toxic metabolic encephalopathy (5) Hyperglycemia due to type 2 diabetes mellitus (6) Hypokalemia (7) Hypercalcemia (8) Elevated troponin (9) Encounter for PEG (percutaneous endoscopic gastrostomy) (10) PNA (pneumonia) (11) Upper sacral area unstageable pressure ulcer (12) Large ischemic R MCA stroke (13) Perineal area gertrudis rashes extending to left and right buttocks (14) Right lateral malleolus stage I pressure ulcer (15) Rash (16) MRSA infection (17) G tube feedings (18) Dehydration (19) Electrolyte imbalance (20) Sepsis (21) Respiratory failure (22) Altered mental status (23) H/O: CVA (cerebrovascular accident) (24) Hypernatremia (25) Pneumonia (26) Lactic acid acidosis (27) KEL (acute kidney injury) (28) Ventilator dependence (29) Endotracheally intubated Social history: Unable to obtain due to mental status Family history: Unable to obtain Allergies: Coded Allergies: No Known Allergies (Unverified , 02/04/17) Medication History Scheduled Acetylcysteine* (Acetylcysteine*), 100 MG HHN Q4HRT Amlodipine Besylate (Norvasc), 5 MG GT BID, (Reported) Ascorbic Acid* (Vitamin C*), 500 MG GT BID, (Reported) Aspirin* (Aspirin*), 81 MG GT ONCE A DAY, (Reported) Atorvastatin Calcium* (Lipitor*), 40 MG ORAL BEDTIME Atorvastatin Calcium* (Atorvastatin Calcium*), 40 MG GT BEDTIME, (Reported) Chlorhexidine Gluconate* (Hibiclens*), 1 APPLIC TOPIC DAILY@2000 Cran/Vitc/Mannose/Inulin/Brom (Uti-Stat Liquid), 30 ML GT DAILY, (Reported) Docusate Sodium* (Docusate Sodium*), 100 MG GT TWICE A DAY, (Reported) Ergocalciferol (Vitamin D2)* (Vitamin D*), 5,000 UNIT GT ONCE A WEEK, (Reported) Famotidine (Famotidine), 20 MG GT BID Fish Oil (Fish Oil 1,000 mg Capsule), 2,000 MG GT BID, (Reported) Furosemide* (Lasix*), 20 MG GT DAILY Gemfibrozil (Gemfibrozil*), 600 MG GT BID, (Reported) Heparin Sod (Porcine) (Heparin Sodium*), 5,000 UNITS SUBQ EVERY 12 HOURS Insulin Aspart (Novolog Flexpen), 0 UNITS SUBQ Q6HR Insulin Detemir (Levemir Flexpen), 14 UNITS SUBQ BEDTIME Lactobacillus Rhamnosus Gg* (Culturelle*), 1 CAP GT ONCE A DAY, (Reported) Magnesium Hydroxide* (Milk Of Magnesia*), 30 ML GT DAILY, (Reported) Meropenem (Meropenem), 1 GM IV Q8HR, (Reported) Meropenem-0.9% Sodium Chloride (Meropenem-0.9% NaCl 1 Gram/50), 1 GM IV EVERY 8 HOURS Metformin Hcl* (Metformin Hcl*), 500 MG GT TWICE A DAY, (Reported) Metoprolol Tartrate (Metoprolol Tartrate), 12.5 MG NG Q12HR Multivitamin Liquid* (Multi-Delyn*), 5 ML GT DAILY, (Reported) Multivitamin With Minerals (Multivitamins With Minerals*), 1 TAB GT DAILY, ( Reported) Nitroglycerin (Nitroglycerin Patch), 1 PATCH TDERMAL Q24H Bdncxfmqietk-Wmgm-Tjphnjth,Iso (Zosyn 3.375 Gm Pre Mix-Bag), 3.375 GM IVPB EVERY 6 HOURS, (Reported) Ranitidine Hcl* (Zantac*), 150 MG GT DAILY, (Reported) Zinc Sulfate (Zinc Sulfate*), 220 MG GT DAILY, (Reported) Scheduled PRN Acetaminophen* (Acetaminophen*), 640 MG GT Q6H PRN for Mild Pain/Temp > 100.5, ( Reported) Bisacodyl (Bisacodyl), 10 MG RC DAILY PRN for Constipation, (Reported) Diphenhydramine Hcl* (Diphenhydramine Hcl*), 25 MG GT Q6H PRN for Itching, ( Reported) Hydrocodone Bit/Acetaminophen 5-325* (Senoia 5-325*), 1 TAB ORAL Q6H PRN for For Pain, (Reported) Ipratropium/Albuterol Sulfate (Iprat-Albut 0.5-3(2.5) Mg/3 Ml), 3 ML IH Q6HR PRN for Shortness of Breath, (Reported) Metoclopramide Hcl* (Metoclopramide Hcl*), 5 ML GT EVERY 6 HOURS PRN for Nausea & Vomiting, (Reported) Na Phos,M-B/Na Phos,Di-Ba* (Fleet Enema*), 133 ML RECTAL DAILY PRN for Constipation, (Reported) Na Phos,M-B/Na Phos,Di-Ba* (Fleet Enema*), 133 ML RECTAL DAILY PRN for Constipation, (Reported) Ondansetron* (Zofran*), 4 MG ORAL Q6H PRN for Nausea & Vomiting, (Reported) [D50w], 25 ML IV Q30M PRN Discontinued Medications Fluconazole (Fluconazole), 100 MG GT DAILY, (Reported) Discontinued Reason: MD discontinued med Fluconazole* (Diflucan*), 100 MG ORAL DAILY Discontinued Reason: MD discontinued med Patient History Healthcare decision maker Resuscitation status Advanced Directive on File Review of Systems ROS Narrative unable to obtain due to mental status Physical Exam Physical Exam Narrative General Appearance: Chronically Ill, in respiratory distress, wearing nonrebreather mask Head: normocephalic ENT: dry mucus membranes Neck: limited range of motion, supple, no JVD Respiratory: + crackles Cardiovascular: RRR, S1S2, no m/r/g Gastrointestinal: non tender, soft, no mass, other - gtube stoma CDI Musculoskeletal: decreased range of motion Neurologic: unresponsive, aphasic, +hemiplegia Skin: Stage 4 sacral decub ulcer, clean, no discharge or odor Last 24 Hour Vital Signs Date Time Temp Pulse Resp B/P (MAP) Pulse Ox O2 Delivery O2 Flow Rate FiO2 11/06/18 13:49 106 22 96 100 18 96 11/06/18 12:59 66 18 93 70 16 93 11/06/18 12:59 101.1 11/06/18 12:30 52 12 93 Non-Rebreather 12.0 100 55 12 92 11/06/18 12:23 102.0 108 18 137/54 98 Non-Rebreather 15.0 11/06/18 12:20 107 18 Non-Rebreather 15.0 11/06/18 12:01 102.0 83 18 120/74 (89) 98 Room Air Laboratory Tests Test 11/06/18 12:10 11/06/18 12:20 11/06/18 12:45 11/06/18 12:50 Sodium Level 166 MMOL/L (136-145) *H Potassium Level 4.0 MMOL/L (3.5-5.1) Chloride Level 120 MMOL/L (98-107) H Carbon Dioxide Level 31 MMOL/L (21-32) Anion Gap 14 mmol/L (5-15) Blood Urea Nitrogen 79 mg/dL (7-18) H Creatinine 1.5 MG/DL (0.55-1.30) H Estimat Glomerular Filtration Rate mL/min (>60) Glucose Level 498 MG/DL (74-106) H Lactic Acid Level 4.20 mmol/L (0.4-2.0) H Calcium Level 10.1 MG/DL (8.5-10.1) Total Bilirubin 0.6 MG/DL (0.2-1.0) Aspartate Amino Transf (AST/SGOT) 25 U/L (15-37) Alanine Aminotransferase (ALT/SGPT) 13 U/L (12-78) Alkaline Phosphatase 80 U/L (46-116) Total Creatine Kinase 100 U/L (26-308) Creatine Kinase MB < 0.5 NG/ML (0.0-3.6) Creatine Kinase MB Relative Index 0.5 Troponin I 0.070 ng/mL (0.000-0.056) Pro-B-Type Natriuretic Peptide 584 pg/mL (0-125) H Total Protein 9.3 G/DL (6.4-8.2) H Albumin 3.0 G/DL (3.4-5.0) L Globulin 6.3 g/dL Albumin/Globulin Ratio 0.5 (1.0-2.7) L Urine Color Pale yellow Urine Appearance Slightly cloudy Urine pH 5 (4.5-8.0) Urine Specific [place] 1.015 (1.005-1.035) Urine Protein 2+ (NEGATIVE) H Urine Glucose (UA) 4+ (NEGATIVE) H Urine Ketones Negative (NEGATIVE) Urine Blood 1+ (NEGATIVE) H Urine Nitrite Positive (NEGATIVE) H Urine Bilirubin Negative (NEGATIVE) Urine Urobilinogen Normal MG/DL (0.0-1.0) Urine Leukocyte Esterase 3+ (NEGATIVE) H Urine RBC 0-2 /HPF (0 - 2) Urine WBC 2-4 /HPF (0 - 2) Urine Squamous Epithelial Cells Few /LPF (NONE/OCC) Urine Bacteria Few /HPF (NONE) Urine Yeast Many /HPF (NONE) H Arterial Blood pH 7.451 (7.350-7.450) Arterial Blood Partial Pressure CO2 45.0 mmHg (35.0-45.0) Arterial Blood Partial Pressure O2 51.7 mmHg (75.0-100.0) L Arterial Blood HCO3 30.6 mmol/L (22.0-26.0) H Arterial Blood Oxygen Saturation 86.9 % (95-100) *L Arterial Blood Base Excess 5.9 (-2-2) H Ray Test Positive White Blood Count 22.2 K/UL (4.8-10.8) *H Red Blood Count 4.37 M/UL (4.20-5.40) Hemoglobin 13.7 G/DL (12.0-16.0) Hematocrit 45.1 % (37.0-47.0) Mean Corpuscular Volume 103 FL (80-99) H Mean Corpuscular Hemoglobin 31.4 PG (27.0-31.0) H Mean Corpuscular Hemoglobin Concent 30.4 G/DL (32.0-36.0) L Red Cell Distribution Width 14.7 % (11.6-14.8) Platelet Count 185 K/UL (150-450) Mean Platelet Volume 9.1 FL (6.5-10.1) Neutrophils (%) (Auto) % (45.0-75.0) Lymphocytes (%) (Auto) % (20.0-45.0) Monocytes (%) (Auto) % (1.0-10.0) Eosinophils (%) (Auto) % (0.0-3.0) Basophils (%) (Auto) % (0.0-2.0) Differential Total Cells Counted 100 Neutrophils % (Manual) 75 % (45-75) Lymphocytes % (Manual) 19 % (20-45) L Monocytes % (Manual) 5 % (1-10) Eosinophils % (Manual) 1 % (0-3) Basophils % (Manual) 0 % (0-2) Band Neutrophils 0 % (0-8) Platelet Estimate Adequate Platelet Morphology Normal Tear Drop Cells 1+ Test 11/06/18 13:50 Lactic Acid Level Pending Height (Feet): 5 Height (Inches): 3.00 Weight (Pounds): 110 Medications Current Medications Medications (Trade) Dose Ordered Sig/Wayne Route PRN Reason Start Time Stop Time Status Last Admin Dose Admin Meropenem 1 gm/ Sodium Chloride 55 ml @ 110 mls/hr ONCE ONCE IVPB 11/06/18 13:45 11/06/18 14:14 11/06/18 13:42 Objective Narrative ekg: no acute st-t changes, strip reviewed by me cxr: bilateral effusions, pulmonary vascular congestion UA: nitrite +, LE 3+, blood 1+, wbc 2-4, yeast many, bacteria few Assessment/Plan Problem List: (1) Septic shock ICD Codes: A41.9 - Sepsis, unspecified organism; R65.21 - Severe sepsis with septic shock SNOMED: 87046245 (2) PNA (pneumonia) ICD Codes: J18.9 - Pneumonia, unspecified organism SNOMED: 678700872 (3) KEL (acute kidney injury) ICD Codes: N17.9 - Acute kidney failure, unspecified SNOMED: 5186883, 81232381 (4) Sacral decubitus ulcer, stage IV ICD Codes: L89.154 - Pressure ulcer of sacral region, stage 4 SNOMED: 422269614, 792436138 (5) Hypernatremia ICD Codes: E87.0 - Hyperosmolality and hypernatremia SNOMED: 04885596 (6) Elevated troponin ICD Codes: R74.8 - Abnormal levels of other serum enzymes SNOMED: 137380016, 985620705 (7) UTI (urinary tract infection) ICD Codes: N39.0 - Urinary tract infection, site not specified SNOMED: 63307010 (8) Dehydration ICD Codes: E86.0 - Dehydration SNOMED: 34326693 (9) Toxic metabolic encephalopathy ICD Codes: G92 - Toxic encephalopathy SNOMED: 316099489 Status: deteriorating, other - shock Diagnosis [place] I: 77 year old female who was undergoing antibiotic therapy for PNA with meropenem at [facility] sent in to the hospital with fever and desaturation. Found to have leukocytosis, fevers, Lactate 4.2 1. Septic Shock due to ?PNA (CXR bilateral pleural effusion, pulmonary vascular congestion), ?UTI. Fungemia risk. ? doubt infected sacral decubitus. -Admit to step down -Meropenem, Vancomycin, and fluconazole -ID consult. Dr. Solis -follow up blood and urine cultures -IVF, have to be judicious due to history of chf, she is maintaining bp. Hold all bp meds for now -Trend lactate 2. Acute hypoxic respiratory failure. Continue NRB, keep sats > 92%. Treat with meropenem, fluconazole, vancomycin. Repeat cxr if clinically worsening. Bipap if respiratory status deteriorates. Low threshold to transfer to icu. 3.Toxic metabolic encephalopathy. Treat. sepsis. 4.Severe dehydration and hypernatremia. Continue 1/2 NS @ 150 ml/hr. Free water via PEG, 250 ml/hr. Monitor serum sodium Q12hr. Avoid overcorrection 5. History of CVA: Hold PO meds now, once no longer NPO resume Lipitor. Hold antihypertensives now 6. Sacral decub. Dr. Jackson, wound care consult 7. DM II with hyperglycemia. Continue Levemir 6 units QHS, insulin aspart sliding scale. 8. KEL. Continue IVF. avoid nephrotoxic medications. Nephrology consult: Dr. Vernon. 9. Troponin elevation. No acute ekg changes, demand ischemia. vte ppx: heparin subq GI ppx: IV pantoprazole Diet: NPO Code status: full code (polst reviewed), message left for Osei echavarria son @ [phone] prognosis poor I spent 70 minutes on this encounter. 50% or greater on care coordination. I spent 30 minutes of critical care time during this encounter d/w Er attending and Abdullahi Bonilla M.D. Nov 06, 2018 14:07
--- NOTE | 2018-11-06 14:28 | NUR ---
ED Nurse Note: report given to FELIX Cunha
--- NOTE | 2018-11-06 14:28 | Emergency Room Report ---
History of Present Illness General Chief Complaint: Dyspnea/Respdistress Source: Medical Record Present Illness HPI 77-year-old female presents ED for evaluation. Brought in by EMS from longterm facility. Reported desaturation at facility. On arrival patient on nonrebreather. Nonverbal at baseline. Currently being treated for pneumonia at facility. History of dementia. Febrile in triage. Crackles noted on exam. No other aggravating relieving factors. Denies any other associated symptoms Allergies: Coded Allergies: No Known Allergies (Unverified , 02/04/17) Patient History Past Medical History: DM, HTN, CVA/TIA, dementia, psych hx Past Surgical History: other - PEG Pertinent Family History: none Social History: Denies: smoking, alcohol use, drug use Last Menstrual Period: n/a Now: No Immunizations: UTD Reviewed Nursing Documentation: PMH: Agreed; PSxH: Agreed Nursing Documentation-PMH Past Medical History Deferred: Pt Cognitively Impaired Past Medical History: No History, Except For Hx Cardiac Problems: No - sepsis, UTI Hx Hypertension: Yes Hx Diabetes: Yes - type 2 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, unspecified Hx Gastrointestinal Problems: Yes - PEG placement (01/2017) History Of Psychiatric Problem: Yes - anxiety Hx Neurological Problems: No - episodes of confusion, encephalopathy Hx Cerebrovascular Accident: Yes - right side CVA, hemiplagia hemiparesis, left residual Hx Transient Ischemic Attacks: No Hx Dementia: Yes Review of Systems All Other Systems: limited Physical Exam Vital Signs Date Time Temp Pulse Resp B/P (MAP) Pulse Ox O2 Delivery O2 Flow Rate FiO2 11/06/18 12:01 102.0 83 18 120/74 (89) 98 Room Air 11/06/18 12:20 15.0 11/06/18 12:30 100 Sp02 EP Interpretation: reviewed, normal General Appearance: other - nonverbal Head: normocephalic Eyes: bilateral eye normal inspection, bilateral eye PERRL ENT: normal ENT inspection Neck: normal inspection Respiratory: crackles, wheezing Cardiovascular #1: no edema, tachycardia Gastrointestinal: normal bowel sounds, non tender, soft, non-distended, no guarding, no rebound Rectal: deferred Genitourinary: no CVA tenderness Musculoskeletal: normal inspection Neurologic: other - nonverbal Psychiatric: other - nonverbal Skin: other - see nrusing notes Lymphatic: normal inspection Procedures Critical Care Time Critical Care Time i. I feel this is a highly complex case requiring extensive working including EKG/Rhythm strip, Xray/CT/US, Blood/urine lab work, repeat exams while in ED, and administration of strong opiates/narcotics for pain control, admission to hospital or close patient follow up. Total time: 50 min bedside evaluation and treatment excludes procedures (EKG). Reason for critical care: severe sepsis, pneumonia, hypoxia Possible complications: hypotension, hypertension, [place], shock, arrhythmias, metabolic acidosis, end organ damage, respiratory failure. Interventions: labs, IVFS, EKG, CXR, nebs, ABG. broad spectrum abx. Course: Presenting with desaturation. Febrile in triage. Chest x-ray shows pneumonia. Significant leukocytosis. Sodium elevated. BUN/creatinine elevated. Troponin indeterminate. Lactic acid elevated. Given 30 cc/kg fluid bolus. O2 sats improved after breathing treatments. Given broad-spectrum antibiotics Consultations: nursing staff, EMS, family Performed by: Dr Vasquez Tolerated well condition = critical j. because of unstable vital signs this patient had a condition that could potentially threaten life or limb. I feel this is a critical patient who required my full attention while patient was considered critical. Total Critical Care Time excluding procedures was greater than 50 minutes Medical Decision Making Diagnostic Impression: Primary Impression: Pneumonia Qualified Codes: J18.1 - Lobar pneumonia, unspecified organism Additional Impressions: Severe sepsis Renal insufficiency Hypernatremia Elevated troponin ER Course Hospital Course 77-year-old female presenting to ED with desaturation, fever Differential diagnoses include: Pneumonia, UTI, sepsis, dehydration, [place]/ unstable angina Clinical course Patient placed on stretcher. On security monitor with tachycardia, fever. After initial history and physical, I ordered labs, IV fluids, EKG, chest x-ray , blood cultures, UA. Nebulizer treatments ordered ABG ordered Labs - BUN/Cr elevated, marked leukocytosis, troponins indeterminate, lactic > 4 CXR -RLL consolidation EKG - sinus tachycardia no acute ischemic changes interpreted by me Abx given. given 30 cc/kg fluid bolus. O2 sats improving Case discussed with Dr Quintana and they agreed to admit patient to their service for further care and support I feel this is a highly complex case requiring extensive working including EKG/ Rhythm strip, Xray/CT/US, Blood/urine lab work, repeat exams while in ED, and administration of strong opiates/narcotics for pain control, admission to hospital or close patient follow up. Diagnosis - pneumonia, severe sepsis, renal insufficiency, hypernatremia, elevated troponin Patient admitted to SDU in critical condition Labs Test 11/06/18 12:10 11/06/18 12:20 11/06/18 12:45 11/06/18 12:50 Sodium Level 166 MMOL/L (136-145) Potassium Level 4.0 MMOL/L (3.5-5.1) Chloride Level 120 MMOL/L (98-107) Carbon Dioxide Level 31 MMOL/L (21-32) Anion Gap 14 mmol/L (5-15) Blood Urea Nitrogen 79 mg/dL (7-18) Creatinine 1.5 MG/DL (0.55-1.30) Estimat Glomerular Filtration Rate mL/min (>60) Glucose Level 498 MG/DL (74-106) Lactic Acid Level 4.20 mmol/L (0.4-2.0) Calcium Level 10.1 MG/DL (8.5-10.1) Total Bilirubin 0.6 MG/DL (0.2-1.0) Aspartate Amino Transf (AST/SGOT) 25 U/L (15-37) Alanine Aminotransferase (ALT/SGPT) 13 U/L (12-78) Alkaline Phosphatase 80 U/L (46-116) Total Creatine Kinase 100 U/L (26-308) Creatine Kinase MB < 0.5 NG/ML (0.0-3.6) Creatine Kinase MB Relative Index 0.5 Troponin I 0.070 ng/mL (0.000-0.056) Pro-B-Type Natriuretic Peptide 584 pg/mL (0-125) Total Protein 9.3 G/DL (6.4-8.2) Albumin 3.0 G/DL (3.4-5.0) Globulin 6.3 g/dL Albumin/Globulin Ratio 0.5 (1.0-2.7) Urine Color Pale yellow Urine Appearance Slightly cloudy Urine pH 5 (4.5-8.0) Urine Specific [place] 1.015 (1.005-1.035) Urine Protein 2+ (NEGATIVE) Urine Glucose (UA) 4+ (NEGATIVE) Urine Ketones Negative (NEGATIVE) Urine Blood 1+ (NEGATIVE) Urine Nitrite Positive (NEGATIVE) Urine Bilirubin Negative (NEGATIVE) Urine Urobilinogen Normal MG/DL (0.0-1.0) Urine Leukocyte Esterase 3+ (NEGATIVE) Urine RBC 0-2 /HPF (0 - 2) Urine WBC 2-4 /HPF (0 - 2) Urine Squamous Epithelial Cells Few /LPF (NONE/OCC) Urine Bacteria Few /HPF (NONE) Urine Yeast Many /HPF (NONE) Arterial Blood pH 7.451 (7.350-7.450) Arterial Blood Partial Pressure CO2 45.0 mmHg (35.0-45.0) Arterial Blood Partial Pressure O2 51.7 mmHg (75.0-100.0) Arterial Blood HCO3 30.6 mmol/L (22.0-26.0) Arterial Blood Oxygen Saturation 86.9 % (95-100) Arterial Blood Base Excess 5.9 (-2-2) Ray Test Positive White Blood Count 22.2 K/UL (4.8-10.8) Red Blood Count 4.37 M/UL (4.20-5.40) Hemoglobin 13.7 G/DL (12.0-16.0) Hematocrit 45.1 % (37.0-47.0) Mean Corpuscular Volume 103 FL (80-99) Mean Corpuscular Hemoglobin 31.4 PG (27.0-31.0) Mean Corpuscular Hemoglobin Concent 30.4 G/DL (32.0-36.0) Red Cell Distribution Width 14.7 % (11.6-14.8) Platelet Count 185 K/UL (150-450) Mean Platelet Volume 9.1 FL (6.5-10.1) Neutrophils (%) (Auto) % (45.0-75.0) Lymphocytes (%) (Auto) % (20.0-45.0) Monocytes (%) (Auto) % (1.0-10.0) Eosinophils (%) (Auto) % (0.0-3.0) Basophils (%) (Auto) % (0.0-2.0) Differential Total Cells Counted 100 Neutrophils % (Manual) 75 % (45-75) Lymphocytes % (Manual) 19 % (20-45) Monocytes % (Manual) 5 % (1-10) Eosinophils % (Manual) 1 % (0-3) Basophils % (Manual) 0 % (0-2) Band Neutrophils 0 % (0-8) Platelet Estimate Adequate Platelet Morphology Normal Tear Drop Cells 1+ Test 11/06/18 13:50 Lactic Acid Level 4.40 mmol/L (0.66-2.22) EKG Diagnostic Results Rate: tachycardiac Rhythm: NSR ST Segments: no acute changes ASA given to the pt in ED: No Rhythm Strip Diag. Results EP Interpretation: yes Rhythm: NSR, no PVC's, no ectopy Chest X-Ray Diagnostic Results Chest X-Ray Diagnostic Results : Chest X-Ray Ordered: Yes # of Views/Limited/Complete: 1 View Indication: Shortness of Breath EP Interpretation: Yes Interpretation: no pneumothorax, other - R sided consolidation Impression: Other - pneumonia Electronically Signed by: Electronically signed by Julio Vasquez MD Last Vital Signs Date Time Temp Pulse Resp B/P (MAP) Pulse Ox O2 Delivery O2 Flow Rate FiO2 11/06/18 13:49 106 22 96 100 18 96 11/06/18 12:59 101.1 11/06/18 12:30 Non-Rebreather 12.0 100 11/06/18 12:23 137/54 Status: improved Disposition: ADMITTED INPATIENT Condition: Critical Referrals: Yamileth Yates MD (PCP) Julio Vasquez MD Nov 06, 2018 14:28
[2018-11-06] MEDS: Heparin 5000 units/ml inj SUBQ SCH ×2 (14:37→21:58)
--- NOTE | 2018-11-06 15:30 | NUR ---
NURSE NOTES: received pt from ER with dx PNA, SOB, nonverbal, lethargic, vital signs stable, temp 99.9, SR/ST, VENTURI MASK 55%, GT clump, skin warm and dry yo touch, sacral wound, picture taken, Nunez catheter with yellow urine, bed in low position, HOB elevated.
[2018-11-06 15:35] VITALS: BP 107/58
[2018-11-06] MEDS ORDERED: NovoLOG Insulin Flexpen SUBQ SCH (16:30)
--- NOTE | 2018-11-06 16:56 | Infectious Diseases Prog Note ---
Assessment/Plan Assessment/Plan Full consult dictated: A) 1) sepsis, uti, ? pna, leukocytosis, fevers, fungemia risk, sacral wound, sob , mary, ams 2) pmh noted 3) allergies - nkday P) 1) meropenem, vancomycin, fluconazole 2) check cultures 3) f/u labs and chest x-ray 4) thank you Subjective Allergies: Coded Allergies: No Known Allergies (Unverified , 02/04/17) Objective Vital Signs Last 24 Hour Vital Signs Date Time Temp Pulse Resp B/P (MAP) Pulse Ox O2 Delivery O2 Flow Rate FiO2 11/06/18 15:53 Venturi Mask 14.0 11/06/18 15:47 100 11/06/18 15:35 99.9 105 20 107/58 (74) 92 11/06/18 14:45 101.0 95 22 137/54 96 Non-Rebreather 12.0 100 11/06/18 13:49 106 22 96 100 18 96 11/06/18 12:59 66 18 93 70 16 93 11/06/18 12:59 101.1 11/06/18 12:30 52 12 93 Non-Rebreather 12.0 100 55 12 92 11/06/18 12:23 102.0 108 18 137/54 98 Non-Rebreather 15.0 11/06/18 12:20 107 18 Non-Rebreather 15.0 11/06/18 12:01 102.0 83 18 120/74 (89) 98 Room Air Height (Feet): 5 Height (Inches): 3.00 Weight (Pounds): 110 Laboratory Tests Test 11/06/18 12:10 11/06/18 12:20 11/06/18 12:45 11/06/18 12:50 Sodium Level 166 MMOL/L (136-145) *H Potassium Level 4.0 MMOL/L (3.5-5.1) Chloride Level 120 MMOL/L (98-107) H Carbon Dioxide Level 31 MMOL/L (21-32) Anion Gap 14 mmol/L (5-15) Blood Urea Nitrogen 79 mg/dL (7-18) H Creatinine 1.5 MG/DL (0.55-1.30) H Estimat Glomerular Filtration Rate mL/min (>60) Glucose Level 498 MG/DL (74-106) H Lactic Acid Level 4.20 mmol/L (0.4-2.0) H Calcium Level 10.1 MG/DL (8.5-10.1) Total Bilirubin 0.6 MG/DL (0.2-1.0) Aspartate Amino Transf (AST/SGOT) 25 U/L (15-37) Alanine Aminotransferase (ALT/SGPT) 13 U/L (12-78) Alkaline Phosphatase 80 U/L (46-116) Total Creatine Kinase 100 U/L (26-308) Creatine Kinase MB < 0.5 NG/ML (0.0-3.6) Creatine Kinase MB Relative Index 0.5 Troponin I 0.070 ng/mL (0.000-0.056) Pro-B-Type Natriuretic Peptide 584 pg/mL (0-125) H Total Protein 9.3 G/DL (6.4-8.2) H Albumin 3.0 G/DL (3.4-5.0) L Globulin 6.3 g/dL Albumin/Globulin Ratio 0.5 (1.0-2.7) L Urine Color Pale yellow Urine Appearance Slightly cloudy Urine pH 5 (4.5-8.0) Urine Specific [place] 1.015 (1.005-1.035) Urine Protein 2+ (NEGATIVE) H Urine Glucose (UA) 4+ (NEGATIVE) H Urine Ketones Negative (NEGATIVE) Urine Blood 1+ (NEGATIVE) H Urine Nitrite Positive (NEGATIVE) H Urine Bilirubin Negative (NEGATIVE) Urine Urobilinogen Normal MG/DL (0.0-1.0) Urine Leukocyte Esterase 3+ (NEGATIVE) H Urine RBC 0-2 /HPF (0 - 2) Urine WBC 2-4 /HPF (0 - 2) Urine Squamous Epithelial Cells Few /LPF (NONE/OCC) Urine Bacteria Few /HPF (NONE) Urine Yeast Many /HPF (NONE) H Arterial Blood pH 7.451 (7.350-7.450) Arterial Blood Partial Pressure CO2 45.0 mmHg (35.0-45.0) Arterial Blood Partial Pressure O2 51.7 mmHg (75.0-100.0) L Arterial Blood HCO3 30.6 mmol/L (22.0-26.0) H Arterial Blood Oxygen Saturation 86.9 % (95-100) *L Arterial Blood Base Excess 5.9 (-2-2) H Ray Test Positive White Blood Count 22.2 K/UL (4.8-10.8) *H Red Blood Count 4.37 M/UL (4.20-5.40) Hemoglobin 13.7 G/DL (12.0-16.0) Hematocrit 45.1 % (37.0-47.0) Mean Corpuscular Volume 103 FL (80-99) H Mean Corpuscular Hemoglobin 31.4 PG (27.0-31.0) H Mean Corpuscular Hemoglobin Concent 30.4 G/DL (32.0-36.0) L Red Cell Distribution Width 14.7 % (11.6-14.8) Platelet Count 185 K/UL (150-450) Mean Platelet Volume 9.1 FL (6.5-10.1) Neutrophils (%) (Auto) % (45.0-75.0) Lymphocytes (%) (Auto) % (20.0-45.0) Monocytes (%) (Auto) % (1.0-10.0) Eosinophils (%) (Auto) % (0.0-3.0) Basophils (%) (Auto) % (0.0-2.0) Differential Total Cells Counted 100 Neutrophils % (Manual) 75 % (45-75) Lymphocytes % (Manual) 19 % (20-45) L Monocytes % (Manual) 5 % (1-10) Eosinophils % (Manual) 1 % (0-3) Basophils % (Manual) 0 % (0-2) Band Neutrophils 0 % (0-8) Platelet Estimate Adequate Platelet Morphology Normal Tear Drop Cells 1+ Test 11/06/18 13:50 Lactic Acid Level 4.40 mmol/L (0.66-2.22) H Current Medications Medications (Trade) Dose Ordered Sig/Wayne Route PRN Reason Start Time Stop Time Status Last Admin Dose Admin Acetaminophen (Tylenol) 650 mg Q4H PRN ORAL Mild Pain (Pain Scale 1-3) 11/06/18 14:00 12/06/18 13:59 Acetaminophen (Tylenol) 650 mg Q4H PRN ORAL fever 11/06/18 14:00 12/06/18 13:59 Albuterol/ Ipratropium (Albuterol/ Ipratropium) 3 ml Q4H PRN HHN Shortness of Breath 11/06/18 14:00 11/11/18 13:59 Dextrose (Dextrose 50%) 25 ml Q30M PRN IV Hypoglycemia 11/06/18 14:00 12/06/18 13:59 Dextrose (Dextrose 50%) 50 ml Q30M PRN IV Hypoglycemia 11/06/18 14:00 12/06/18 13:59 Heparin Sodium (Porcine) (Heparin 5000 units/ml) 5,000 units EVERY 8 HOURS SUBQ 11/06/18 14:00 12/06/18 13:59 11/06/18 14:37 Hydromorphone HCl (Dilaudid) 1 mg Q6H PRN IVP Moderate Pain (Pain Scale 4-6) 11/06/18 14:00 11/13/18 13:59 Hydromorphone HCl (Dilaudid) 2 mg Q6H PRN IVP Severe Pain (Pain Scale 7-10) 11/06/18 14:00 11/13/18 13:59 Insulin Aspart (NovoLOG) BEFORE MEALS AND HS SUBQ 11/06/18 16:30 12/06/18 16:29 Ondansetron HCl (Zofran) 4 mg Q6H PRN IVP Nausea & Vomiting 11/06/18 14:00 12/06/18 13:59 Pantoprazole (Protonix) 40 mg DAILY IV 11/07/18 09:00 12/07/18 08:59 Sodium Chloride 1,000 ml @ 100 mls/hr Q10H IV 11/06/18 14:14 12/06/18 14:13 11/06/18 15:10 Milton Valladares MD Nov 06, 2018 16:56
--- NOTE | 2018-11-06 17:30 | NUR ---
NURSE NOTES: BS [id number], DR. Yates notified.
--- NOTE | 2018-11-06 19:19 | NUR ---
HAND-OFF: Report given to NANCY WASHINGTON, no distress at this time.
--- NOTE | 2018-11-06 19:20 | NUR ---
NURSE NOTES: pt report received from Guerline WASHINGTON MILE. pt remains stable.
[2018-11-06 19:21] LABS: ANION GAP 14 mmol/L (5-15); BLOOD UREA NITROGEN 67 mg/dL (7-18); CALCIUM 9.6 MG/DL (8.5-10.1); CARBON DIOXIDE 30 MMOL/L (21-32); CHLORIDE 129 MMOL/L (98-107); CREATININE 1.6 MG/DL (0.55-1.30); POTASSIUM 3.1 MMOL/L (3.5-5.1)
[2018-11-06 19:23] LABS: SODIUM 173 MMOL/L (136-145)
[2018-11-06 20:00] VITALS: BP 125/65
[2018-11-06] MEDS ORDERED: Vancomycin 1.25gm/NS Premix IVPB SCH (20:00)
[2018-11-06] MEDS: NovoLOG Insulin Flexpen SUBQ SCH (20:26)
[2018-11-06] MEDS ORDERED: Levemir Flexpen SUBQ SCH (21:00)
[2018-11-07] VITALS: BP 131/64
--- NOTE | 2018-11-07 00:15 | Consultation ---
DATE OF CONSULTATION: 11/06/2018 INFECTIOUS DISEASE CONSULTATION CONSULTING PHYSICIAN: Milton Callahan M.D. ATTENDING PHYSICIAN: Yamileth Yates M.D. REFERRING PHYSICIAN: Abdullahi Muhammad M.D. REASON FOR CONSULTATION: Sepsis, fevers, leukocytosis, UTI, possible pneumonia, possible sacral wound infection. CHIEF COMPLAINT: The patient's chief complaint coming in to the hospital is shortness of breath, pneumonia, and sepsis. HISTORY OF PRESENT ILLNESS: This is a 77-year-old female with history of Pseudomonas and UTI and pneumonia in the past. The patient was given meropenem on previous admission. The patient presents to [facility] with shortness of breath and has possible pneumonia on chest x-ray versus atelectasis and fluid. The patient also has positive urinalysis and could have UTI. The patient has SIRS criteria with altered mental status, elevated respiratory rate, fevers, and leukocytosis. The patient likely is septic. Infectious Disease consultation is requested for antibiotic management. The patient based on previous sensitivities has been placed on meropenem, vancomycin, and Diflucan. She is at high risk for fungemia with fungal UTI in the past. The patient will be continued on vancomycin, meropenem, and Diflucan for sepsis pending final workup. MAR was noted. Orders were noted. Notes and records were reviewed. Case was discussed with RN. The patient is in the COU. The patient cannot add to this history. She is nonverbal on a breathing mask. REVIEW OF SYSTEMS: CONSTITUTIONAL: She is weak and nonverbal. She came in with fevers. Generalized fatigue and weakness noted. HEAD AND NECK: Could not assess. She does have a breathing mask. CARDIAC: No pressors. GASTROINTESTINAL: No nausea or vomiting. Discussed with nursing staff. There is no diarrhea. GENITOURINARY: She has a Nunez. PULMONARY: She is short of breath. On a breathing mask. SKIN: No new rash. She has a sacral wound that was reviewed. NEUROLOGIC: No seizures. Otherwise, review of systems is limited in this patient. PAST MEDICAL HISTORY: The patient's past medical history includes the history of the following. The patient has a past medical history of decubitus. She has history of hypertension. She has history of decubitus, diabetes, and hypertension. She has history of stroke, hemiparesis, aspiration risk, history of benign neoplasm, history of dysphagia, G-tube, history of encephalopathy, and dementia. She has history of lactic acidosis, history of sepsis, UTI, pneumonia in the past including Pseudomonas. She has history of anemia, acute kidney injury, and elevated creatinine. MEDICATIONS: Upon reviewing the MAR, she is on the following medications. She is on meropenem, vancomycin, and Diflucan. She is on pantoprazole. She is on insulin. She is on IV fluids, sodium, albuterol, heparin, and acetaminophen. She is on hydromorphone. She is on Zofran, IV fluids, meropenem, vancomycin, Diflucan, and methylprednisolone was also given to the patient in the ER. Outside medications were noted and reconciliated. ALLERGIES: No known drug allergies. No antibiotic allergies. SOCIAL HISTORY: Negative for smoking, alcohol, or drug abuse. FAMILY HISTORY: Noncontributory. Negative for tuberculosis or cancer. PHYSICAL EXAMINATION: VITAL SIGNS: Temperature maximum 102, currently temperature is 99.9, pulse rate 105, respiratory rate 20, blood pressure 107/50, and saturation 92% to 96% percent. Heart rate has been as high as 100. Respiratory rate has been as high as 22. GENERAL: Lethargic and weak. She is on a breathing mask and non-responsive. HEAD AND NECK: Oral exam, no thrush. Eye exam, no icterus. Neck is supple. No JVD. Normocephalic. HEART: Regular. No gallop or murmur. No friction rub. Tachycardic. LUNGS: Bilateral rhonchi, rales, and crackles. ABDOMEN: Soft. Positive bowel sounds and nontender. SKIN: No rashes. MUSCULOSKELETAL: No effusion. Legs are without cellulitis. PERIPHERAL VASCULAR: No cyanosis. She has a sacral wound that has some necrosis and slough. No gangrene. GENITOURINARY: She has a Nunez. Urine is cloudy. LINE SITES: Without phlebitis. NEUROLOGIC: Generalized weakness and poorly responsive. LABORATORY DATA: Laboratory data is as follows. White count 22.2 and hemoglobin 13.7. Creatinine 1.5. Lactic acid is 4.4. LFTs were noted. Cultures are pending. UA had 3+ leukocyte esterase, 2 to 5 white cells, yeast. Chest x-ray has effusions, congestion, atelectasis versus pneumonia. Report was noted and reviewed. Cultures pending. ASSESSMENT AND PLAN: 1. The patient has sepsis, fevers, leukocytosis, tachycardia, elevated respiratory rate, and SIRS criteria. The patient looks like she could have an aspiration or healthcare-acquired pneumonia and UTI with sepsis, rule out sacral wound infection. She has no diarrhea to suggest C. diff. She has high risk for fungemia with prolonged antibiotic use and yeast cultured out in the past. At this time, we will continue vancomycin and meropenem for MRSA gram-negative coverage. Because of the Pseudomonas sensitivities, meropenem will be the choice for the previous cultures. This is most resistant to Zosyn and cefepime. Continue vancomycin, meropenem, Diflucan for sepsis, pneumonia, UTI, fungemia risk, and also possible sacral wound infection. Consider evaluation of sacral wound. Check cultures, laboratories, and chest x-ray. Continue vancomycin, meropenem, and Diflucan pending final workup for sepsis. 2. Wound care per protocol. 3. Elevated creatinine with acute kidney injury. 4. Diabetes. 5. Hypertension. 6. Blood sugar and blood pressure treatment per primary consultants for diabetes and hypertension. 7. Anemia. 8. CVA. 9. Aspiration risk. 10. Aspiration precautions for CVA and aspiration risk. 11. Dysphagia. G-tube. 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 13. Dementia. 14. Encephalopathy. 15. History of sepsis and lactic acidosis. 16. No known drug allergies. 17. Family history is noncontributory. 18. Social history is negative. 19. MAR is noted. 20. Case was discussed with RN. 21. Continue treatment per primary consultants. Milton Valladares M.D. DR: JULIEN JOB#: [id number] CC:
[2018-11-07 04:00] VITALS: BP 133/71
[2018-11-07 05:03] LABS: HEMATOCRIT 36.3 % (37.0-47.0); HEMOGLOBIN 11.3 G/DL (12.0-16.0); MEAN CORPUSCULAR VOLUME 101 FL (80-99); PLATELET COUNT 156 K/UL (150-450); RED BLOOD COUNT 3.58 M/UL (4.20-5.40); RED CELL DISTRIBUTION WIDTH 14.7 % (11.6-14.8); WHITE BLOOD COUNT 20.3 K/UL (4.8-10.8)
[2018-11-07] MEDS: NovoLOG Insulin Flexpen SUBQ SCH ×4 (05:40→21:02)
[2018-11-07] MEDS: Heparin 5000 units/ml inj SUBQ SCH ×3 (05:41→21:03)
[2018-11-07 06:09] LABS: ANION GAP 10 mmol/L (5-15); BLOOD UREA NITROGEN 58 mg/dL (7-18); CALCIUM 9.6 MG/DL (8.5-10.1); CARBON DIOXIDE 31 MMOL/L (21-32); CHLORIDE 133 MMOL/L (98-107); CREATININE 1.1 MG/DL (0.55-1.30); POTASSIUM 3.4 MMOL/L (3.5-5.1)
[2018-11-07 06:12] LABS: SODIUM 174 MMOL/L (136-145)
--- NOTE | 2018-11-07 07:00 | NUR ---
HAND-OFF: Report given to Guerline WASHINGTON MILE. pt remains stable.
[2018-11-07 08:00] VITALS: BP 130/67
--- NOTE | 2018-11-07 08:00 | NUR ---
NURSE NOTES: received pt in the bed, obtunded, vital signs stable, no co pain, venturi mask 55%, tolerate well, skin warm and dry to touch, dressing on sacral area dry and intact, yellow urine, incontinent, NA 174, DR. Muhammad aware, pt had nose bleed, dr. Muhammad aware, GT clump, bed in low position, HOB elevated.
[2018-11-07] MEDS: Pantoprazole Inj IV SCH (08:22)
[2018-11-07 08:33] LABS: ALANINE AMINOTRANSFERASE 8 U/L (12-78); ALBUMIN 2.4 G/DL (3.4-5.0); ALKALINE PHOSPHATASE 85 U/L (46-116); ASPARTATE AMINO TRANSFERASE 27 U/L (15-37); BILIRUBIN,DIRECT 0.1 MG/DL (0.0-0.3); BILIRUBIN,TOTAL 0.5 MG/DL (0.2-1.0); PHOSPHORUS 2.5 MG/DL (2.5-4.9)
[2018-11-07] MEDS ORDERED: Levemir Flexpen SUBQ ONE (09:30)
--- NOTE | 2018-11-07 10:34 | NUR ---
CASE MANAGEMENT: REVIEW 77 YR OLD FEMALE BIBA FROM [facility] CC: DYSPNEA, RESP. DISTRESS SI:SEPSIS PNA, ELEVATED TROP RECTAL TEMP: 102.0 83 18 120/74 98% 15L NR MASK TROP 0.070; K+ 3.1; WBC 22.2; NA+ 173; BG 498; BUN+79; CR 1.5; BNP 584; LA 4.20 ABG: pH 7.451; pO2 51.7; HCO3 30.6; O2 SAT 86.9 IS: IV MEROPENEM X1 ALBUTEROL HHN ATROVENT HHN IV SOLUMEDROL DE TYLENOL IVF NS BOLUS X2 : TO MED SURG DCP: TO RETURN TO [facility] PLAN: I&D CONSULT WOUND CARE
--- NOTE | 2018-11-07 11:10 | Consultation ---
Consult Note Consult Note asked to eval at the request of Dr Muhammad for renal failure and abnormal electrolytes non verbal- examined- discussed with FELIX Anderson data reviewed ER: 77-year-old female presents ED for evaluation. Brought in by EMS from care home facility. Reported desaturation at facility. On arrival patient on nonrebreather. Nonverbal at baseline. Currently being treated for pneumonia at facility. History of dementia. Febrile in triage. Crackles noted on exam. No other aggravating relieving factors. 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 Assessment/Plan Sepsis Acute renal failure HyperNatremia Dehydration G Tube Low k DM OOC CVA Old jody Previous admission was intubated on vent, but extubated antibiotics D5W + Free water via GT IV KCl monitor renal parameters and lytes Pulm support correct lytes BS and BP check and monitor per consultants Dwayne Vernon MD Nov 07, 2018 11:10
--- NOTE | 2018-11-07 11:24 | Infectious Diseases Prog Note ---
Assessment/Plan Assessment/Plan A) 1) sepsis, uti, ? pna, leukocytosis, fevers, fungemia risk, sacral wound, sob , mary, ams 2) pmh noted 3) allergies - nkday P) 1) meropenem, vancomycin, fluconazole, add polymyxin for potential MDR organism 2) f/u cultures 3) f/u labs and chest x-ray 4) will f/u Subjective Constitutional: Reports: fever HEENT: Reports: congestion Respiratory: Reports: shortness of breath Gastrointestinal/Abdominal: Denies: nausea, vomiting Genitourinary: Reports: other - + taylor Allergies: Coded Allergies: No Known Allergies (Unverified , 02/04/17) Objective Vital Signs Last 24 Hour Vital Signs Date Time Temp Pulse Resp B/P (MAP) Pulse Ox O2 Delivery O2 Flow Rate FiO2 11/07/18 09:00 Venturi Mask 14.0 11/07/18 08:54 100.2 11/07/18 08:00 109 11/07/18 08:00 100.2 99 26 130/67 (88) 95 11/07/18 04:00 102 11/07/18 04:00 99.5 104 20 133/71 (91) 98 11/07/18 00:00 98.3 96 20 131/64 (86) 97 11/07/18 00:00 97 11/06/18 20:00 99.5 99 20 125/65 (85) 99 11/06/18 20:00 100 11/06/18 15:53 Venturi Mask 14.0 11/06/18 15:47 100 11/06/18 15:35 99.9 105 20 107/58 (74) 92 11/06/18 14:45 101.0 95 22 137/54 96 Non-Rebreather 12.0 100 11/06/18 13:49 106 22 96 100 18 96 11/06/18 12:59 66 18 93 70 16 93 11/06/18 12:59 101.1 11/06/18 12:30 52 12 93 Non-Rebreather 12.0 100 55 12 92 11/06/18 12:23 102.0 108 18 137/54 98 Non-Rebreather 15.0 11/06/18 12:20 107 18 Non-Rebreather 15.0 11/06/18 12:01 102.0 83 18 120/74 (89) 98 Room Air Height (Feet): 5 Height (Inches): 3.00 Weight (Pounds): 125 General Appearance: other HEENT: normocephalic Respiratory/Chest: crackles/rales, rhonchi - bilaterally Cardiovascular: normal rate, regular rhythm Abdomen: normal bowel sounds, soft, non tender, no organomegaly, non distended Genitourinary: other - + taylor Laboratory Tests Test 11/06/18 12:10 11/06/18 12:20 11/06/18 12:45 11/06/18 12:50 Sodium Level 166 MMOL/L (136-145) *H Potassium Level 4.0 MMOL/L (3.5-5.1) Chloride Level 120 MMOL/L (98-107) H Carbon Dioxide Level 31 MMOL/L (21-32) Anion Gap 14 mmol/L (5-15) Blood Urea Nitrogen 79 mg/dL (7-18) H Creatinine 1.5 MG/DL (0.55-1.30) H Estimat Glomerular Filtration Rate mL/min (>60) Glucose Level 498 MG/DL (74-106) H Lactic Acid Level 4.20 mmol/L (0.4-2.0) H Calcium Level 10.1 MG/DL (8.5-10.1) Total Bilirubin 0.6 MG/DL (0.2-1.0) Aspartate Amino Transf (AST/SGOT) 25 U/L (15-37) Alanine Aminotransferase (ALT/SGPT) 13 U/L (12-78) Alkaline Phosphatase 80 U/L (46-116) Total Creatine Kinase 100 U/L (26-308) Creatine Kinase MB < 0.5 NG/ML (0.0-3.6) Creatine Kinase MB Relative Index 0.5 Troponin I 0.070 ng/mL (0.000-0.056) Pro-B-Type Natriuretic Peptide 584 pg/mL (0-125) H Total Protein 9.3 G/DL (6.4-8.2) H Albumin 3.0 G/DL (3.4-5.0) L Globulin 6.3 g/dL Albumin/Globulin Ratio 0.5 (1.0-2.7) L Urine Color Pale yellow Urine Appearance Slightly cloudy Urine pH 5 (4.5-8.0) Urine Specific [place] 1.015 (1.005-1.035) Urine Protein 2+ (NEGATIVE) H Urine Glucose (UA) 4+ (NEGATIVE) H Urine Ketones Negative (NEGATIVE) Urine Blood 1+ (NEGATIVE) H Urine Nitrite Positive (NEGATIVE) H Urine Bilirubin Negative (NEGATIVE) Urine Urobilinogen Normal MG/DL (0.0-1.0) Urine Leukocyte Esterase 3+ (NEGATIVE) H Urine RBC 0-2 /HPF (0 - 2) Urine WBC 2-4 /HPF (0 - 2) Urine Squamous Epithelial Cells Few /LPF (NONE/OCC) Urine Bacteria Few /HPF (NONE) Urine Yeast Many /HPF (NONE) H Arterial Blood pH 7.451 (7.350-7.450) Arterial Blood Partial Pressure CO2 45.0 mmHg (35.0-45.0) Arterial Blood Partial Pressure O2 51.7 mmHg (75.0-100.0) L Arterial Blood HCO3 30.6 mmol/L (22.0-26.0) H Arterial Blood Oxygen Saturation 86.9 % (95-100) *L Arterial Blood Base Excess 5.9 (-2-2) H Ray Test Positive White Blood Count 22.2 K/UL (4.8-10.8) *H Red Blood Count 4.37 M/UL (4.20-5.40) Hemoglobin 13.7 G/DL (12.0-16.0) Hematocrit 45.1 % (37.0-47.0) Mean Corpuscular Volume 103 FL (80-99) H Mean Corpuscular Hemoglobin 31.4 PG (27.0-31.0) H Mean Corpuscular Hemoglobin Concent 30.4 G/DL (32.0-36.0) L Red Cell Distribution Width 14.7 % (11.6-14.8) Platelet Count 185 K/UL (150-450) Mean Platelet Volume 9.1 FL (6.5-10.1) Neutrophils (%) (Auto) % (45.0-75.0) Lymphocytes (%) (Auto) % (20.0-45.0) Monocytes (%) (Auto) % (1.0-10.0) Eosinophils (%) (Auto) % (0.0-3.0) Basophils (%) (Auto) % (0.0-2.0) Differential Total Cells Counted 100 Neutrophils % (Manual) 75 % (45-75) Lymphocytes % (Manual) 19 % (20-45) L Monocytes % (Manual) 5 % (1-10) Eosinophils % (Manual) 1 % (0-3) Basophils % (Manual) 0 % (0-2) Band Neutrophils 0 % (0-8) Platelet Estimate Adequate Platelet Morphology Normal Tear Drop Cells 1+ Test 11/06/18 13:50 11/06/18 18:15 11/07/18 04:10 Lactic Acid Level 4.40 mmol/L (0.66-2.22) H Sodium Level 173 MMOL/L (136-145) *H 174 MMOL/L (136-145) *H Potassium Level 3.1 MMOL/L (3.5-5.1) L 3.4 MMOL/L (3.5-5.1) L Chloride Level 129 MMOL/L (98-107) H 133 MMOL/L (98-107) H Carbon Dioxide Level 30 MMOL/L (21-32) 31 MMOL/L (21-32) Anion Gap 14 mmol/L (5-15) 10 mmol/L (5-15) Blood Urea Nitrogen 67 mg/dL (7-18) H 58 mg/dL (7-18) H Creatinine 1.6 MG/DL (0.55-1.30) H 1.1 MG/DL (0.55-1.30) Estimat Glomerular Filtration Rate mL/min (>60) mL/min (>60) Glucose Level 466 MG/DL (74-106) H 414 MG/DL (74-106) H Calcium Level 9.6 MG/DL (8.5-10.1) 9.6 MG/DL (8.5-10.1) White Blood Count 20.3 K/UL (4.8-10.8) H Red Blood Count 3.58 M/UL (4.20-5.40) L Hemoglobin 11.3 G/DL (12.0-16.0) L Hematocrit 36.3 % (37.0-47.0) L Mean Corpuscular Volume 101 FL (80-99) H Mean Corpuscular Hemoglobin 31.5 PG (27.0-31.0) H Mean Corpuscular Hemoglobin Concent 31.1 G/DL (32.0-36.0) L Red Cell Distribution Width 14.7 % (11.6-14.8) Platelet Count 156 K/UL (150-450) Mean Platelet Volume 10.3 FL (6.5-10.1) H Neutrophils (%) (Auto) % (45.0-75.0) Lymphocytes (%) (Auto) % (20.0-45.0) Monocytes (%) (Auto) % (1.0-10.0) Eosinophils (%) (Auto) % (0.0-3.0) Basophils (%) (Auto) % (0.0-2.0) Differential Total Cells Counted 100 Neutrophils % (Manual) 84 % (45-75) H Lymphocytes % (Manual) 15 % (20-45) L Monocytes % (Manual) 1 % (1-10) Eosinophils % (Manual) 0 % (0-3) Basophils % (Manual) 0 % (0-2) Band Neutrophils 0 % (0-8) Platelet Estimate Adequate Platelet Morphology Normal Uric Acid 9.8 MG/DL (2.6-7.2) H Phosphorus Level 2.5 MG/DL (2.5-4.9) Magnesium Level 3.0 MG/DL (1.8-2.4) H Total Bilirubin 0.5 MG/DL (0.2-1.0) Direct Bilirubin 0.1 MG/DL (0.0-0.3) Aspartate Amino Transf (AST/SGOT) 27 U/L (15-37) Alanine Aminotransferase (ALT/SGPT) 8 U/L (12-78) L Alkaline Phosphatase 85 U/L (46-116) Total Protein 7.8 G/DL (6.4-8.2) Albumin 2.4 G/DL (3.4-5.0) L Current Medications Medications (Trade) Dose Ordered Sig/Wayne Route PRN Reason Start Time Stop Time Status Last Admin Dose Admin Acetaminophen (Tylenol) 650 mg Q4H PRN ORAL Mild Pain (Pain Scale 1-3) 11/06/18 14:00 12/06/18 13:59 11/07/18 08:24 Acetaminophen (Tylenol) 650 mg Q4H PRN ORAL fever 11/06/18 14:00 12/06/18 13:59 Albuterol/ Ipratropium (Albuterol/ Ipratropium) 3 ml Q4H PRN HHN Shortness of Breath 11/06/18 14:00 11/11/18 13:59 Dextrose 1,000 ml @ 100 mls/hr Q10H IV 11/07/18 08:30 12/07/18 08:29 11/07/18 08:59 Dextrose (Dextrose 50%) 25 ml Q30M PRN IV Hypoglycemia 11/06/18 14:00 12/06/18 13:59 Dextrose (Dextrose 50%) 50 ml Q30M PRN IV Hypoglycemia 11/06/18 14:00 12/06/18 13:59 Fluconazole/ Sodium Chloride 100 ml @ 100 mls/hr Q24H IV 11/06/18 18:00 11/13/18 17:59 11/06/18 18:00 Heparin Sodium (Porcine) (Heparin 5000 units/ml) 5,000 units EVERY 8 HOURS SUBQ 11/06/18 14:00 12/06/18 13:59 11/07/18 05:41 Hydromorphone HCl (Dilaudid) 1 mg Q6H PRN IVP Moderate Pain (Pain Scale 4-6) 11/06/18 14:00 11/13/18 13:59 Hydromorphone HCl (Dilaudid) 2 mg Q6H PRN IVP Severe Pain (Pain Scale 7-10) 11/06/18 14:00 11/13/18 13:59 Insulin Aspart (NovoLOG) BEFORE MEALS AND HS SUBQ 11/06/18 21:00 12/06/18 20:59 11/07/18 05:40 Meropenem 1 gm/ Sodium Chloride 100 ml @ 200 mls/hr Q12HR IVPB 11/06/18 21:00 11/11/18 20:59 11/07/18 08:22 Ondansetron HCl (Zofran) 4 mg Q6H PRN IVP Nausea & Vomiting 11/06/18 14:00 12/06/18 13:59 Pantoprazole (Protonix) 40 mg DAILY IV 11/07/18 09:00 12/07/18 08:59 11/07/18 08:22 Vancomycin HCl (Vanco rx to dose) 1 ea DAILY PRN MISC Per rx protocol 11/06/18 17:00 12/06/18 16:59 Milton Valladares MD Nov 07, 2018 11:24
--- NOTE | 2018-11-07 11:28 | General Progress Note ---
Assessment/Plan Problem List: (1) Septic shock ICD Codes: A41.9 - Sepsis, unspecified organism; R65.21 - Severe sepsis with septic shock SNOMED: 42910172 (2) PNA (pneumonia) ICD Codes: J18.9 - Pneumonia, unspecified organism SNOMED: 818251174 (3) KEL (acute kidney injury) ICD Codes: N17.9 - Acute kidney failure, unspecified SNOMED: 9292596, 44563025 (4) Sacral decubitus ulcer, stage IV ICD Codes: L89.154 - Pressure ulcer of sacral region, stage 4 SNOMED: 832927451, 537271536 (5) Hypernatremia ICD Codes: E87.0 - Hyperosmolality and hypernatremia SNOMED: 55250221 (6) Elevated troponin ICD Codes: R74.8 - Abnormal levels of other serum enzymes SNOMED: 455238335, 991812782 (7) UTI (urinary tract infection) ICD Codes: N39.0 - Urinary tract infection, site not specified SNOMED: 09580164 (8) Dehydration ICD Codes: E86.0 - Dehydration SNOMED: 03428574 (9) Toxic metabolic encephalopathy ICD Codes: G92 - Toxic encephalopathy SNOMED: 538563316 Status: deteriorating, other - shock Assessment/Plan: 77 year old female who was undergoing antibiotic therapy for PNA with meropenem at [facility] sent in to the hospital with fever and desaturation. Found to have leukocytosis, fevers, Lactate 4.2 1. Resolving septic shock due to ?PNA (CXR bilateral pleural effusion, pulmonary vascular congestion, ? consolidation), ?UTI. Fungemia risk. ? doubt infected sacral decubitus. -keep in step down -Meropenem, Vancomycin, and fluconazole -ID consult. Dr. Solis -follow up blood and urine cultures -IVF with D5W @ 100 ml/hr , have to be judicious due to history of chf, she is maintaining bp. Hold all bp meds for now -Trend lactate 2. Acute hypoxic respiratory failure. Continue venturi mask/ nasal cannula, keep sats > 92%. Treat with meropenem, fluconazole, vancomycin. Repeat cxr if clinically worsening. Bipap if respiratory status deteriorates. Low threshold to transfer to icu. 3.Toxic metabolic encephalopathy. Treat sepsis. 4.Severe dehydration and hypernatremia. discontinue 1/2 NS @ 150 ml/hr. Start D5W @ 100 ml/hr .Free water via PEG, 250 ml/hr. Monitor serum sodium Q12hr. Avoid correcting too quickly 5. History of CVA: Hold PO meds now, once no longer NPO resume Lipitor. Hold antihypertensives now 6. Sacral decub. Dr. Jackson, wound care consult 7. DM II with hyperglycemia. Levemir, insulin aspart sliding scale. 8. KEL. pre-renal due to severe dehydration. Continue IVF. avoid nephrotoxic medications. creatinine better today Nephrology consult: Dr. Vernon. d/w him. 9. Troponin elevation. No acute ekg changes, demand ischemia. vte ppx: heparin subq- hold for nose bleed GI ppx: IV pantoprazole Diet: NPO, free water via peg Code status: full code (polst reviewed), message left for Osei echavarria son @ [phone], today at 11:15 am prognosis poor d/w rn I spent 40 minutes on this encounter. 50% or greater on care coordination. Subjective Date patient seen: Nov 07, 2018 ROS Limited/Unobtainable: Yes Allergies: Coded Allergies: No Known Allergies (Unverified , 02/04/17) Subjective baseline unable to communicate due to previous CVA seen tachypneic , rr 26, venturi mask 14L saturating 95% low grade fevers 100.2, t max 102 worsening hypernatremia wbc trending down Per RN had nose bleed this am, heparin held Objective Last 24 Hour Vital Signs Date Time Temp Pulse Resp B/P (MAP) Pulse Ox O2 Delivery O2 Flow Rate FiO2 11/07/18 09:00 Venturi Mask 14.0 11/07/18 08:54 100.2 11/07/18 08:00 109 11/07/18 08:00 100.2 99 26 130/67 (88) 95 11/07/18 04:00 102 11/07/18 04:00 99.5 104 20 133/71 (91) 98 11/07/18 00:00 98.3 96 20 131/64 (86) 97 11/07/18 00:00 97 11/06/18 20:00 99.5 99 20 125/65 (85) 99 11/06/18 20:00 100 11/06/18 15:53 Venturi Mask 14.0 11/06/18 15:47 100 11/06/18 15:35 99.9 105 20 107/58 (74) 92 11/06/18 14:45 101.0 95 22 137/54 96 Non-Rebreather 12.0 100 11/06/18 13:49 106 22 96 100 18 96 11/06/18 12:59 66 18 93 70 16 93 11/06/18 12:59 101.1 11/06/18 12:30 52 12 93 Non-Rebreather 12.0 100 55 12 92 11/06/18 12:23 102.0 108 18 137/54 98 Non-Rebreather 15.0 11/06/18 12:20 107 18 Non-Rebreather 15.0 11/06/18 12:01 102.0 83 18 120/74 (89) 98 Room Air Intake and Output 11/06/18 11/07/18 19:00 07:00 Intake Total 3105 ml 475 ml Output Total 770 ml 1000 ml Balance 2335 ml -525 ml Intake Oral 0 ml Free Water 250 ml 200 ml IV Total 2855 ml 275 ml Output Urine Total 770 ml 1000 ml # Bowel Movements 3 Laboratory Tests 11/06/18 12:10: Sodium Level 166*H, Potassium Level 4.0, Chloride Level 120H, Carbon Dioxide Level 31, Anion Gap 14, Blood Urea Nitrogen 79H, Creatinine 1.5H, Estimat Glomerular Filtration Rate , Glucose Level 498H, Lactic Acid Level 4.20H, Calcium Level 10.1, Total Bilirubin 0.6, Aspartate Amino Transf (AST/SGOT) 25, Alanine Aminotransferase (ALT/SGPT) 13, Alkaline Phosphatase 80, Total Creatine Kinase 100, Creatine Kinase MB < 0.5, Creatine Kinase MB Relative Index 0.5, Troponin I 0.070H, Pro-B-Type Natriuretic Peptide 584H, Total Protein 9.3H, Albumin 3.0L, Globulin 6.3, Albumin/Globulin Ratio 0.5L 11/06/18 12:20: Urine Color Pale yellow, Urine Appearance Slightly cloudy, Urine pH 5, Urine Specific [place] 1.015, Urine Protein 2+H, Urine Glucose (UA) 4+H, Urine Ketones Negative, Urine Blood 1+H, Urine Nitrite PositiveH, Urine Bilirubin Negative, Urine Urobilinogen Normal, Urine Leukocyte Esterase 3+H, Urine RBC 0-2 , Urine WBC 2-4, Urine Squamous Epithelial Cells Few, Urine Bacteria Few, Urine Yeast ManyH 11/06/18 12:45: Arterial Blood pH 7.451H, Arterial Blood Partial Pressure CO2 45.0, Arterial Blood Partial Pressure O2 51.7L, Arterial Blood HCO3 30.6H, Arterial Blood Oxygen Saturation 86.9*L, Arterial Blood Base Excess 5.9H, Rya Test Positive 11/06/18 12:50: White Blood Count 22.2*H, Red Blood Count 4.37, Hemoglobin 13.7, Hematocrit 45.1 , Mean Corpuscular Volume 103H, Mean Corpuscular Hemoglobin 31.4H, Mean Corpuscular Hemoglobin Concent 30.4L, Red Cell Distribution Width 14.7, Platelet Count 185, Mean Platelet Volume 9.1, Neutrophils (%) (Auto) , Lymphocytes (%) (Auto) , Monocytes (%) (Auto) , Eosinophils (%) (Auto) , Basophils (%) (Auto) , Differential Total Cells Counted 100, Neutrophils % ( Manual) 75, Lymphocytes % (Manual) 19L, Monocytes % (Manual) 5, Eosinophils % ( Manual) 1, Basophils % (Manual) 0, Band Neutrophils 0, Platelet Estimate Adequate, Platelet Morphology Normal, Tear Drop Cells 1+ 11/06/18 13:50: Lactic Acid Level 4.40H 11/06/18 18:15: Sodium Level 173*H, Potassium Level 3.1L, Chloride Level 129H, Carbon Dioxide Level 30, Anion Gap 14, Blood Urea Nitrogen 67H, Creatinine 1.6H, Estimat Glomerular Filtration Rate , Glucose Level 466H, Calcium Level 9.6 11/07/18 04:10: Sodium Level 174*H, Potassium Level 3.4L, Chloride Level 133H, Carbon Dioxide Level 31, Anion Gap 10, Blood Urea Nitrogen 58H, Creatinine 1.1, Estimat Glomerular Filtration Rate , Glucose Level 414H, Calcium Level 9.6, White Blood Count 20.3H, Red Blood Count 3.58L, Hemoglobin 11.3L, Hematocrit 36.3L, Mean Corpuscular Volume 101H, Mean Corpuscular Hemoglobin 31.5H, Mean Corpuscular Hemoglobin Concent 31.1L, Red Cell Distribution Width 14.7, Platelet Count 156, Mean Platelet Volume 10.3H, Neutrophils (%) (Auto) , Lymphocytes (%) (Auto) , Monocytes (%) (Auto) , Eosinophils (%) (Auto) , Basophils (%) (Auto) , Differential Total Cells Counted 100, Neutrophils % (Manual) 84H, Lymphocytes % (Manual) 15L, Monocytes % (Manual) 1, Eosinophils % (Manual) 0, Basophils % ( Manual) 0, Band Neutrophils 0, Platelet Estimate Adequate, Platelet Morphology Normal, Uric Acid 9.8H, Phosphorus Level 2.5, Magnesium Level 3.0H, Total Bilirubin 0.5, Direct Bilirubin 0.1, Aspartate Amino Transf (AST/SGOT) 27, Alanine Aminotransferase (ALT/SGPT) 8L, Alkaline Phosphatase 85, Total Protein 7.8, Albumin 2.4L Height (Feet): 5 Height (Inches): 3.00 Weight (Pounds): 125 Objective General Appearance: Chronically Ill, in respiratory distress, unresponsive, venturi mask on Head: normocephalic ENT: dry mucus membranes Neck: limited range of motion, supple, no JVD Respiratory: + crackles Cardiovascular: RRR, S1S2, no m/r/g Gastrointestinal: non tender, soft, no mass, other - gtube stoma CDI Musculoskeletal: decreased range of motion Neurologic: unresponsive, aphasic, +hemiplegia Skin: Stage 4 sacral decub ulcer, clean, no discharge or odor Abdullahi Muhammad M.D. Nov 07, 2018 11:28
[2018-11-07 12:00] VITALS: BP 134/67
--- NOTE | 2018-11-07 12:00 | NUR ---
NURSE NOTES: pt still on venturi mask, vital signs stable, no co pain, wound nurse assess the pt, bed bath given, repositioned, dressing on sacral changed.
[2018-11-07] MEDS: Polymyxin B Sulfate 500,000 UNITS in D5W 500ml 500 ML IVPB SCH (13:45)
--- NOTE | 2018-11-07 14:31 | NUR ---
RD ASSESSMENT & RECOMMENDATIONS SEE CARE ACTIVITY FOR COMPLETE ASSESSMENT DAILY ESTIMATED NEEDS: Needs based on Wound, DM, sepsis 56kg 25-30 kcals/kg 6958-1929 total kcals 1.25-2 g protein/kg 70-112 g total protein 25-30 mL/kg 8128-5885 total fluid mLs NUTRITION DIAGNOSIS: 1) Swallowing difficulty R/T dysphagia, CVA as evidenced by PEG dependent. 2) Increased kcal and pro needs r/t wound healing, increased metabolic rate as evidenced by admitted w/ sacral wound per photo, pending evaluation, sepsis dx w/ elev wbc, febrile, elev LA, elev BGs (414, 466). . CURRENT TF:NPO ENTERAL NUTRITION RECOMMENDATIONS: Glucerna 1.2 @ 55ml/hr x24 hrs to provide 1320ml, 1584kcal, 79g prot, 1063ml free water - As medically appropriate, initiate Glucerna 1.2 @ 35ml/hr - Advance TF 10ml q 4-6 hrs as tolerated to goal rate - HOB over 30 degrees/ water flush per MD ADDITIONAL RECOMMENDATIONS: 1) Calibrated bedscale wt for accurate CBW- w/ added P200 mattress + pump 2) Rec long acting insulin for improved BG control once TF initiates -> BGs in the 300's + 400's 3) Wound healing: add Vit C 500mg QD + Gonsalo 1pkt BID 4) Monitor lytes daily, replete as needed . .
--- NOTE | 2018-11-07 14:44 | NUR ---
NURSE NOTES:WOUND CARE NOTES:Pt presented on admission with Full thickness sacral pressure injury, Bilat foot drop. Sacral pressure (L)3.5cm x (W)3.5cm x (D)0.4cm. Base of wound mixed slough/necrosis. Borders are macerated. Periwound is maroon in colour with additional shearing . Pt moans when area surrounding wound minimally palpated. L lateral malleolus black without erythema ,induration or fluctuance(L)1cm x (W)1cm. Non-blanching erythema without fluctuance bilat heels. Tx.plan: Cleanse wound with Saline. Apply Therahoney. Apply Moisture Barrier Paste periwound. Cover with Optifoam drsg. Change every 3 days and prn. Apply Cavilon to L lateral malleolus and both heels. Cover each heels and Malleoli with Optifoam drsg. Change every 7 days and prn. APM/LOU Mattress overlay. Reposition at least every 2hours or as tolerated. Off-load heels with pillow.
--- NOTE | 2018-11-07 14:58 | Cardiology Report ---
APPROVED REPORT EKG Measurement Heart [id number] Sinus tachycardia Left axis deviation Inferior infarct, age undetermined Anterolateral infarct, age undetermined Prolonged QT Abnormal ECG
[2018-11-07 16:00] VITALS: BP 128/62
[2018-11-07] MEDS ORDERED: 1/2 NS 1000ml IV ONE (18:15)
[2018-11-07] MEDS ORDERED: Tubing IV Secondary IV ONE (18:15)
[2018-11-07] MEDS ORDERED: ACETAMINOP160 MG/5 M ORAL (18:35)
[2018-11-07] MEDS ORDERED: METOPROLOL TART25 MG GT (18:38)
[2018-11-07] MEDS ORDERED: NITROGLYCERIN1 EAC2 TD (18:39)
[2018-11-07] MEDS ORDERED: ACETYLCYST100 MG/1 M HHN (18:52)
--- NOTE | 2018-11-07 19:17 | NUR ---
HAND-OFF: Report given to ONEAL RN, NO DISTRESS AT THIS TIME.
--- NOTE | 2018-11-07 19:22 | NUR ---
NURSE NOTES: Pt received from FELIX Cunha alert and oriented x0, obtunded. IV site asymptomatic and patent on L fa 22g, with D5W at 100 cc/hr. Bed alarm on, Bed in lowest position, call light and belongings within reach.
[2018-11-07 19:26] LABS: ANION GAP 12 mmol/L (5-15); BLOOD UREA NITROGEN 47 mg/dL (7-18); CARBON DIOXIDE 30 MMOL/L (21-32); CHLORIDE 127 MMOL/L (98-107); CREATININE 1.1 MG/DL (0.55-1.30)
[2018-11-07 19:28] LABS: SODIUM 169 MMOL/L (136-145)
--- NOTE | 2018-11-07 19:50 | NUR ---
NURSE NOTES: Spoke with Roxane from [employer] [facility] and left message for MD regarding Sodium of 169 and Potassium of 3.0. Currently awaiting call back.
[2018-11-07 20:00] VITALS: BP 134/60
--- NOTE | 2018-11-07 20:17 | NUR ---
NURSE NOTES: Received call back from Dr. Stanton from [facility]: - Give 40 meq of KCL through Gtube - Give 2 grams Magnesium Sulfate IV. Will carry out orders and continue to monitor pt.
--- NOTE | 2018-11-07 21:17 | Consultation ---
History of Present Illness General Date patient seen: Nov 07, 2018 Chief Complaint: Dyspnea/Respdistress Present Illness HPI 77F well known to me from prior admissions who presents with respiratory insufficiency, abnormal labs, and admitted for care and management. still with large wounds requiring care. surgery called to evaluate and assist with care. patient seen, chart reviewed, patient examined. Allergies: Coded Allergies: No Known Allergies (Unverified , 02/04/17) Medication History Scheduled Acetylcysteine* (Acetylcysteine*), 100 MG HHN Q4H, (Reported) Amlodipine Besylate (Norvasc), 5 MG GT BID, (Reported) Ascorbic Acid* (Vitamin C*), 500 MG GT BID, (Reported) Aspirin* (Aspirin*), 81 MG GT ONCE A DAY, (Reported) Atorvastatin Calcium* (Atorvastatin Calcium*), 40 MG GT BEDTIME, (Reported) Cran/Vitc/Mannose/Inulin/Brom (Uti-Stat Liquid), 30 ML GT DAILY, (Reported) Docusate Sodium* (Docusate Sodium*), 100 MG GT TWICE A DAY, (Reported) Ergocalciferol (Vitamin D2)* (Vitamin D*), 5,000 UNIT GT ONCE A WEEK, (Reported) Famotidine (Famotidine), 20 MG GT BID Fish Oil (Fish Oil 1,000 mg Capsule), 2,000 MG GT BID, (Reported) Furosemide* (Lasix*), 20 MG GT DAILY Gemfibrozil (Gemfibrozil*), 600 MG GT BID, (Reported) Heparin Sod (Porcine) (Heparin Sodium*), 5,000 UNITS SUBQ EVERY 12 HOURS Insulin Aspart (Novolog Flexpen), 0 UNITS SUBQ Q6HR Insulin Detemir (Levemir Flexpen), 14 UNITS SUBQ BEDTIME Lactobacillus Rhamnosus Gg* (Culturelle*), 1 CAP GT ONCE A DAY, (Reported) Metformin Hcl* (Metformin Hcl*), 500 MG GT TWICE A DAY, (Reported) Metoprolol Tartrate* (Metoprolol Tartrate*), 12.5 MG GT EVERY 12 HOURS, ( Reported) Multivitamin Liquid* (Multi-Delyn*), 5 ML GT DAILY, (Reported) Nitroglycerin (Nitroglycerin Patch), 0.4 MG TD Q24H, (Reported) Ranitidine Hcl* (Zantac*), 150 MG GT DAILY, (Reported) Zinc Sulfate (Zinc Sulfate*), 220 MG GT DAILY, (Reported) Scheduled PRN Acetaminophen 160MG/5ML* (Acetaminophen*), 640 MG ORAL Q6H PRN for Pain Scale (5 -7), (Reported) Acetaminophen* (Acetaminophen*), 480 MG GT Q6H PRN for Mild Pain/Temp > 100.5, ( Reported) Bisacodyl (Bisacodyl), 10 MG RC DAILY PRN for Constipation, (Reported) Diphenhydramine Hcl* (Diphenhydramine Hcl*), 25 MG GT Q6H PRN for Itching, ( Reported) Hydrocodone Bit/Acetaminophen 5-325* ([place] 5-325*), 1 TAB ORAL Q6H PRN for For Pain, (Reported) Ipratropium/Albuterol Sulfate (Iprat-Albut 0.5-3(2.5) Mg/3 Ml), 3 ML IH Q6HR PRN for Shortness of Breath, (Reported) Magnesium Hydroxide* (Milk Of Magnesia*), 30 ML GT DAILY PRN for Constipation, ( Reported) Metoclopramide Hcl* (Metoclopramide Hcl*), 5 ML GT EVERY 6 HOURS PRN for Nausea & Vomiting, (Reported) Na Phos,M-B/Na Phos,Di-Ba* (Fleet Enema*), 133 ML RECTAL DAILY PRN for Constipation, (Reported) Ondansetron* (Zofran*), 4 MG GT Q6H PRN for Nausea & Vomiting, (Reported) Discontinued Medications Fluconazole (Fluconazole), 100 MG GT DAILY, (Reported) Discontinued Reason: discontinued med Fluconazole* (Diflucan*), 100 MG ORAL DAILY Discontinued Reason: MD discontinued med Meropenem (Meropenem), 1 GM IV Q8HR, (Reported) Discontinued Reason: Therapy completed Patient History Limited by: medical condition History Provided By: Medical Record, PMD Healthcare decision maker Resuscitation status Full Code Advanced Directive on File No Past Medical/Surgical History Past Medical/Surgical History: (1) SOB (shortness of breath) (2) Renal insufficiency (3) Severe sepsis (4) Septic shock (5) Sacral decubitus ulcer, stage IV (6) G tube feedings (7) Electrolyte imbalance (8) Altered mental status (9) H/O: CVA (cerebrovascular accident) (10) Pneumonia (11) KEL (acute kidney injury) (12) Ventilator dependence (13) Endotracheally intubated (14) Hypokalemia (15) Hypercalcemia (16) Abscess (17) Rash (18) Hypernatremia (19) HTN (hypertension) (20) Elevated troponin (21) Encounter for PEG (percutaneous endoscopic gastrostomy) (22) MRSA infection (23) PNA (pneumonia) (24) Hyperglycemia due to type 2 diabetes mellitus (25) Upper sacral area unstageable pressure ulcer (26) Large ischemic R MCA stroke (27) Perineal area gertrudis rashes extending to left and right buttocks (28) UTI (urinary tract infection) (29) Right lateral malleolus stage I pressure ulcer (30) Respiratory failure (31) DM (diabetes mellitus) (32) Hypernatremia (33) Lactic acid acidosis (34) Toxic metabolic encephalopathy (35) Dehydration (36) Sepsis Review of Systems ROS Narrative unable to obtain. non verbal at baseline Physical Exam General Appearance: no apparent distress Lines, tubes and drains: peripheral HEENT: mucous membranes moist Neck: normal inspection Respiratory/Chest: no respiratory distress, no accessory muscle use, decreased breath sounds Cardiovascular/Chest: regular rhythm Abdomen: soft, no organomegaly, no mass, feeding tube Genitourinary/Rectal: other Extremities: inflammation, slow capillary refill Skin Exam: warm/dry Neurologic: other Last 24 Hour Vital Signs Date Time Temp Pulse Resp B/P (MAP) Pulse Ox O2 Delivery O2 Flow Rate FiO2 11/07/18 20:00 Venturi Mask 14.0 11/07/18 20:00 102.4 102 24 134/60 (84) 92 11/07/18 16:00 98.6 101 26 128/62 (84) 94 11/07/18 16:00 99 11/07/18 16:00 Venturi Mask 14.0 11/07/18 12:00 97 11/07/18 12:00 Venturi Mask 14.0 11/07/18 12:00 99.5 95 27 134/67 (89) 93 11/07/18 09:00 Venturi Mask 14.0 11/07/18 08:54 100.2 11/07/18 08:00 109 11/07/18 08:00 100.2 99 26 130/67 (88) 95 11/07/18 04:00 102 11/07/18 04:00 99.5 104 20 133/71 (91) 98 11/07/18 00:00 98.3 96 20 131/64 (86) 97 11/07/18 00:00 97 Intake and Output 11/06/18 11/07/18 19:00 07:00 Intake Total 3105 ml 775 ml Output Total 770 ml 1000 ml Balance 2335 ml -225 ml Intake Oral 0 ml Free Water 250 ml 500 ml IV Total 2855 ml 275 ml Output Urine Total 770 ml 1000 ml # Bowel Movements 3 Laboratory Tests Test 11/07/18 04:10 11/07/18 12:10 11/07/18 18:00 White Blood Count 20.3 K/UL (4.8-10.8) H Red Blood Count 3.58 M/UL (4.20-5.40) L Hemoglobin 11.3 G/DL (12.0-16.0) L Hematocrit 36.3 % (37.0-47.0) L Mean Corpuscular Volume 101 FL (80-99) H Mean Corpuscular Hemoglobin 31.5 PG (27.0-31.0) H Mean Corpuscular Hemoglobin Concent 31.1 G/DL (32.0-36.0) L Red Cell Distribution Width 14.7 % (11.6-14.8) Platelet Count 156 K/UL (150-450) Mean Platelet Volume 10.3 FL (6.5-10.1) H Neutrophils (%) (Auto) % (45.0-75.0) Lymphocytes (%) (Auto) % (20.0-45.0) Monocytes (%) (Auto) % (1.0-10.0) Eosinophils (%) (Auto) % (0.0-3.0) Basophils (%) (Auto) % (0.0-2.0) Differential Total Cells Counted 100 Neutrophils % (Manual) 84 % (45-75) H Lymphocytes % (Manual) 15 % (20-45) L Monocytes % (Manual) 1 % (1-10) Eosinophils % (Manual) 0 % (0-3) Basophils % (Manual) 0 % (0-2) Band Neutrophils 0 % (0-8) Platelet Estimate Adequate Platelet Morphology Normal Sodium Level 174 MMOL/L (136-145) *H 169 MMOL/L (136-145) *H Potassium Level 3.4 MMOL/L (3.5-5.1) L 3.0 MMOL/L (3.5-5.1) L Chloride Level 133 MMOL/L (98-107) H 127 MMOL/L (98-107) H Carbon Dioxide Level 31 MMOL/L (21-32) 30 MMOL/L (21-32) Anion Gap 10 mmol/L (5-15) 12 mmol/L (5-15) Blood Urea Nitrogen 58 mg/dL (7-18) H 47 mg/dL (7-18) H Creatinine 1.1 MG/DL (0.55-1.30) 1.1 MG/DL (0.55-1.30) Estimat Glomerular Filtration Rate mL/min (>60) mL/min (>60) Glucose Level 414 MG/DL (74-106) H 302 MG/DL (74-106) #H Uric Acid 9.8 MG/DL (2.6-7.2) H Calcium Level 9.6 MG/DL (8.5-10.1) 9.0 MG/DL (8.5-10.1) Phosphorus Level 2.5 MG/DL (2.5-4.9) Magnesium Level 3.0 MG/DL (1.8-2.4) H Total Bilirubin 0.5 MG/DL (0.2-1.0) Direct Bilirubin 0.1 MG/DL (0.0-0.3) Aspartate Amino Transf (AST/SGOT) 27 U/L (15-37) Alanine Aminotransferase (ALT/SGPT) 8 U/L (12-78) L Alkaline Phosphatase 85 U/L (46-116) Total Protein 7.8 G/DL (6.4-8.2) Albumin 2.4 G/DL (3.4-5.0) L Lactic Acid Level 1.00 mmol/L (0.4-2.0) Random Vancomycin Level 9.4 ug/mL Height (Feet): 5 Height (Inches): 3.00 Weight (Pounds): 125 Medications Current Medications Medications (Trade) Dose Ordered Sig/Wayne Route PRN Reason Start Time Stop Time Status Last Admin Dose Admin Acetaminophen (Tylenol) 650 mg Q4H PRN ORAL Mild Pain (Pain Scale 1-3) 11/06/18 14:00 12/06/18 13:59 11/07/18 21:12 Acetaminophen (Tylenol) 650 mg Q4H PRN ORAL fever 11/06/18 14:00 12/06/18 13:59 Albuterol/ Ipratropium (Albuterol/ Ipratropium) 3 ml Q4H PRN HHN Shortness of Breath 11/06/18 14:00 11/11/18 13:59 Albuterol/ Ipratropium (Albuterol/ Ipratropium) 3 ml Q4HRT HHN 11/07/18 23:00 11/12/18 22:59 Dextrose 1,000 ml @ 100 mls/hr Q10H IV 11/07/18 08:30 12/07/18 08:29 11/07/18 18:23 Dextrose (Dextrose 50%) 25 ml Q30M PRN IV Hypoglycemia 11/06/18 14:00 12/06/18 13:59 Dextrose (Dextrose 50%) 50 ml Q30M PRN IV Hypoglycemia 11/06/18 14:00 12/06/18 13:59 Fluconazole/ Sodium Chloride 100 ml @ 100 mls/hr Q24H IV 11/06/18 18:00 11/13/18 17:59 11/07/18 18:23 Heparin Sodium (Porcine) (Heparin 5000 units/ml) 5,000 units EVERY 8 HOURS SUBQ 11/06/18 14:00 12/06/18 13:59 11/07/18 05:41 Hydromorphone HCl (Dilaudid) 1 mg Q6H PRN IVP Moderate Pain (Pain Scale 4-6) 11/06/18 14:00 11/13/18 13:59 Hydromorphone HCl (Dilaudid) 2 mg Q6H PRN IVP Severe Pain (Pain Scale 7-10) 11/06/18 14:00 11/13/18 13:59 Insulin Aspart (NovoLOG) BEFORE MEALS AND HS SUBQ 11/06/18 21:00 12/06/18 20:59 11/07/18 21:02 Meropenem 1 gm/ Sodium Chloride 100 ml @ 200 mls/hr Q12HR IVPB 11/06/18 21:00 11/11/18 20:59 11/07/18 21:00 Ondansetron HCl (Zofran) 4 mg Q6H PRN IVP Nausea & Vomiting 11/06/18 14:00 12/06/18 13:59 Pantoprazole (Protonix) 40 mg DAILY IV 11/07/18 09:00 12/07/18 08:59 11/07/18 08:22 Polymyxin B Sulfate 432431 units/Dextrose 500 ml @ 500 mls/hr Q12H IVPB 11/07/18 13:00 11/14/18 12:59 11/07/18 13:45 Potassium Chloride (K-Dur) 40 meq ONCE ORAL 11/07/18 20:24 11/07/18 21:30 11/07/18 21:01 Vancomycin HCl (Vanco rx to dose) 1 ea DAILY PRN MISC Per rx protocol 11/06/18 17:00 12/06/18 16:59 Vancomycin/Sodium Chloride 275 ml @ 183.333 mls/hr ONCE IVPB 11/07/18 22:00 11/07/18 23:59 Assessment/Plan Problem List: (1) Severe sepsis Assessment & Plan: IV fluids IV abx trend labs will follow with recs wounds stable and not etiology of sepsis ICD Codes: A41.9 - Sepsis, unspecified organism; R65.20 - Severe sepsis without septic shock SNOMED: 67983996 (2) Sacral decubitus ulcer, stage IV Assessment & Plan: Pt presented on admission with Full thickness stage 4 sacral pressure injury, Bilat foot drop. Sacral pressure (L)3.5cm x (W)3.5cm x (D)0.4cm. Base of wound mixed slough/ necrosis. Borders are macerated. Periwound is maroon in colour with additional shearing . Pt moans when area surrounding wound minimally palpated. L lateral malleolus black without erythema ,induration or fluctuance(L)1cm x (W) 1cm. Non-blanching erythema without fluctuance bilat heels. Tx.plan: Cleanse wound with Saline. Apply Therahoney. Apply Moisture Barrier Paste periwound. Cover with Optifoam drsg. Change every 3 days and prn. Apply Cavilon to L lateral malleolus and both heels. Cover each heels and Malleoli with Optifoam drsg. Change every 7 days and prn. APM/LOU Mattress overlay. Reposition at least every 2hours or as tolerated. Off-load heels with pillow. ICD Codes: L89.154 - Pressure ulcer of sacral region, stage 4 SNOMED: 098493207, 548298796 (3) G tube feedings Assessment & Plan: DAILY ESTIMATED NEEDS: Needs based on Wound, DM, sepsis 56kg 25-30 kcals/kg 4058-2364 total kcals 1.25-2 g protein/kg 70-112 g total protein 25-30 mL/kg 5830-4461 total fluid mLs NUTRITION DIAGNOSIS: 1) Swallowing difficulty R/T dysphagia, CVA as evidenced by PEG dependent. 2) Increased kcal and pro needs r/t wound healing, increased metabolic rate as evidenced by admitted w/ sacral wound per photo, pending evaluation, sepsis dx w/ elev wbc, febrile, elev LA, elev BGs (414, 466). . CURRENT TF:NPO ENTERAL NUTRITION RECOMMENDATIONS: Glucerna 1.2 @ 55ml/hr x24 hrs to provide 1320ml, 1584kcal, 79g prot, 1063ml free water - As medically appropriate, initiate Glucerna 1.2 @ 35ml/hr - Advance TF 10ml q 4-6 hrs as tolerated to goal rate - HOB over 30 degrees/ water flush per MD ADDITIONAL RECOMMENDATIONS: 1) Calibrated bedscale wt for accurate CBW- w/ added P200 mattress + pump 2) Rec long acting insulin for improved BG control once TF initiates -> BGs in the 300's + 400's 3) Wound healing: add Vit C 500mg QD + Gonsalo 1pkt BID 4) Monitor lytes daily, replete as needed ICD Codes: Z93.1 - Gastrostomy status SNOMED: 204047144, 553177977, 011901070 (4) Electrolyte imbalance ICD Codes: E87.8 - Other disorders of electrolyte and fluid balance, not elsewhere classified SNOMED: 185212880 (5) Ventilator dependence ICD Codes: Z99.11 - Dependence on respirator [ventilator] status SNOMED: 187477810 Akhil Jackson Nov 07, 2018 21:17
[2018-11-07] MEDS ORDERED: Vancomycin 1.25gm/NS Premix IVPB SCH (22:00)
--- NOTE | 2018-11-07 22:59 | NUR ---
NURSE NOTES: Upon rounds, pt had labored breathing with accessory muscle use. Saturating 77% on Venturi Mask 14L 55%, VS 130/60, RR 24, 104 HR, 100.1 F. RN called RT who placed pt on nonrebreather mask 15L at 100% but pt still saturated at 88% at the highest. STAT ABGs ordered, reported lab results to Dr. Stanton who ordered that the pt be transferred to ICU (for potential intubation if necessary) and placed on Bipap. Orders carried out.
[2018-11-07] MEDS: Albuterol/Ipratropium 3ml neb HHN SCH (23:44)
[2018-11-08] VITALS (24 sets, daily range): BP systolic 94–134; BP diastolic 41–63
--- NOTE | 2018-11-08 00:20 | NUR ---
RESPIRATORY NOTE: Transferred pt to icu with RN and CN. Placed pt on bipap 15/7 fio2 100% per md orders due to pt abg results and desaturation. Tape is placed on pt face with no signs of skin breakdown. Pt saturation on bipap is 100%. Will cont. to monitor pt status.
--- NOTE | 2018-11-08 00:30 | NUR ---
NURSE NOTES: Received from MILE 77 y.o female with DX SOB secondary to PNA, pt was so lethargic breathing some kind of agonal , pt was placed on bIPAP 15/7 rate of 18 with fi02 1oo%, connected to director multimedia which showef NSR bp stable. Febrile 101F- Cooling measures was done. Pts with 1-2+ generalized edema, pt also has unstageable sacral area, both heels with non blancheable redness as well as malleolus area. picture taken was done . TX was initiated. Pt has left forearm g 22 with D5W at 100ml/hr infusing well. Site atraumatic. pt voiding freely via purewick. Will continue to monitor and will do blood gas in 1 hr.
--- NOTE | 2018-11-08 01:19 | NUR ---
TRANSFER TO FLOOR: Patient transferred to [facility], per Dr. Stanton. Report given to FELIX Hamilton. No belongings with patient upon transfer. Medications given to FELIX Hamilton. RN left message for son (Osei Doe - [phone]) and informed him of transfer.
[2018-11-08] MEDS: Polymyxin B Sulfate 500,000 UNITS in D5W 500ml 500 ML IVPB SCH ×2 (01:26→14:01)
--- NOTE | 2018-11-08 01:49 | NUR ---
NURSE NOTES: Spoke to Dr Maximino Md was aware with ABG result, no other orders given except to taper fio2 and DR Vee will be the pulm consult and he is aware.
--- NOTE | 2018-11-08 03:00 | NUR ---
NURSE NOTES: Ot had frequent small to moderate mucoid pasty brownish tools. cleaned up pt aned purewick was constantly changed after every bowel movement.
[2018-11-08 05:09] LABS: HEMATOCRIT 32.4 % (37.0-47.0); MEAN CORPUSCULAR VOLUME 103 FL (80-99); PLATELET COUNT 112 K/UL (150-450); RED BLOOD COUNT 3.15 M/UL (4.20-5.40); RED CELL DISTRIBUTION WIDTH 14.6 % (11.6-14.8); WHITE BLOOD COUNT 14.1 K/UL (4.8-10.8)
[2018-11-08] MEDS: Heparin 5000 units/ml inj SUBQ SCH ×3 (05:43→21:35)
--- NOTE | 2018-11-08 05:43 | NUR ---
NURSE NOTES: Heparin subcut. not given due to trending down platelet ct and bleeding from nostril area during suctioning.
[2018-11-08 06:13] LABS: ALANINE AMINOTRANSFERASE 12 U/L (12-78); ALBUMIN/GLOBULIN RATIO 0.4 (1.0-2.7); ALKALINE PHOSPHATASE 79 U/L (46-116); ANION GAP 11 mmol/L (5-15); ASPARTATE AMINO TRANSFERASE 18 U/L (15-37); BILIRUBIN,TOTAL 0.6 MG/DL (0.2-1.0); BLOOD UREA NITROGEN 35 mg/dL (7-18); CARBON DIOXIDE 28 MMOL/L (21-32); CHLORIDE 124 MMOL/L (98-107); CREATINE KINASE 123 U/L (26-308); CREATININE 0.9 MG/DL (0.55-1.30); FERRITIN 1962 NG/ML (8-388); GAMMA GLUTAMYL TRANSPEPTIDASE 3 U/L (5-85); PHOSPHORUS 2.4 MG/DL (2.5-4.9); POTASSIUM 3.4 MMOL/L (3.5-5.1)
[2018-11-08] MEDS: NovoLOG Insulin Flexpen SUBQ SCH ×4 (06:16→20:45)
[2018-11-08 06:18] LABS: SODIUM 163 MMOL/L (136-145)
[2018-11-08 06:29] LABS: % IRON SATURATION 27 % (15-50); IRON 40 ug/dL (50-175); TOTAL IRON BINDING CAPACITY 150 ug/dL (250-450)
[2018-11-08] MEDS: Albuterol/Ipratropium 3ml neb HHN SCH ×5 (06:37→23:46)
--- NOTE | 2018-11-08 06:47 | NUR ---
RESPIRATORY NOTE: Received pt on Bipap with current settings: 27/08-back up rate 18- 70%FiO2. Pt is resting in the bed, no SOB or resp distress noted. Breathing TX Duoneb given without adverse reactions. Toney clear diminished breath sounds heard upon auscultation. Titrated FiO2 down to 60%, pt still statutes at 97%. FELIX Hamilton made aware. Alarms are set and audible, Bipap is plugged into the red outlet, ambu bag is at bedside. Will continue to monitor q2h and as needed. Addendum: 11/08/18 at 1343 by Case N Bravo RT New foam tape applied on the nose bridge, chin and cheeks after breathing TX, no redness or skin breakdown noted.
--- NOTE | 2018-11-08 06:52 | NUR ---
NURSE NOTES: Tylenol 650mg through GT was given due to temp 101F, Cooling measures started.
--- NOTE | 2018-11-08 07:25 | NUR ---
HAND-OFF: Report given to Sarah Quinonez RN.
--- NOTE | 2018-11-08 07:25 | NUR ---
[facility] Downtime: On 07/25/2012 From to, The following electronic documentation will be located in the patient handwritten chart, Following patient discharge, paper documentation will be scanned into EPF with the remainder of the paper chart. Nursing Documentation Physician orders Medication Administration Records Medication Reconciliation Respiratory Documentation Dietary Documentation Case Management Documentation Client Architect Documentation
--- NOTE | 2018-11-08 07:26 | NUR ---
NURSE NOTES: Received patient from FELIX Hamilton. Patient blood pressure 105/44, HR 84, RR 18, temp 97.9, SpO2 97% on BiPAP 15 with 60% FiO2. Patient transferred to ICU last night for respiratory distress and low SpO2. ABG has improved on BIPAP setting. Spoke with Dr Vee and reported blood gas results. NO new orders received. Patient does not respond to voice, light pain or deep pain. Patient has minimal gag
--- NOTE | 2018-11-08 07:26 | NUR ---
NURSE NOTES: Received patient from FELIX Hamilton. Patient blood pressure 105/44, HR 75, FiO2 97%, and RR 22. Patient unresponsive to voice, light pain, and deep pain. Upper and lower extremities flaccid. Patient does not open eyes. Patient on BiPAP 15/7 with 70% FiO2 at this time. Patient tolerating setting. Patient transferred to ICU last night due to desaturation and abnormal breathing pattern. ABG was obtained this morning. pCO2 has improved ad pH has improved. Dr Vee is aware and ordered for the patient to be kept on BiPAP at this time. No new orders. Patient showing sinus rhythm on the payment manager. Patient sputum bloody when suctioned. Blood noted on mucous membranes of mouth. Patient has frequent brown, mucous bowel movements. will monitor and notify MD. Patient has purewick that is patent and draining at this time. Patient has sacral un-stageable wound, right and left heel non-blanchable redness, and left ankle DTI. Patient has right forearm 18G PIV that is sluggish to flush and bruised and left forearm 22G PIV that is patent, asymptomatic, and running D5W at 100mL/hr. Patient sodium is high at 163 at this time. MD aware. potassium is 3.4 at this time. Will notify Dr Vernon when he rounds on the patient. Will continue to monitor. bed in low position with bed alarm on and call light in reach at this time.
[2018-11-08] MEDS ORDERED: Potassium Phosphate 20 MM in NS 275 ML IV ONE (09:00)
[2018-11-08] MEDS ORDERED: Ascorbic Acid 500mg tab ORAL SCH (09:00)
[2018-11-08] MEDS ORDERED: Levemir Flexpen SUBQ SCH ×3 (09:00→21:00)
--- NOTE | 2018-11-08 09:30 | NUR ---
NURSE NOTES: Notified Dr Muhammad regarding ABG results and unresponsive state. Notified her that patient remains NPO but nutrition consult has been done. Received order to keep patient NPO at this time until she is more stable. Patient's blood pressure dropped to 75/[address] Muhammad. Bolus 500mL given. Blood pressure now 123/57, HR 81, SpO2 98%, and RR 19. Will continue to monitor. Patient repositioned at this time. Bed in low position with bed alarm on.
[2018-11-08] MEDS: Pantoprazole Inj IV SCH (09:36)
--- NOTE | 2018-11-08 09:41 | General Progress Note ---
Assessment/Plan Problem List: (1) Respiratory failure with hypoxia and hypercapnia ICD Codes: J96.91 - Respiratory failure, unspecified with hypoxia; J96.92 - Respiratory failure, unspecified with hypercapnia SNOMED: 23183639 (2) Septic shock ICD Codes: A41.9 - Sepsis, unspecified organism; R65.21 - Severe sepsis with septic shock SNOMED: 32558322 (3) Toxic metabolic encephalopathy ICD Codes: G92 - Toxic encephalopathy SNOMED: 451216004 (4) PNA (pneumonia) ICD Codes: J18.9 - Pneumonia, unspecified organism SNOMED: 198286134 (5) KEL (acute kidney injury) ICD Codes: N17.9 - Acute kidney failure, unspecified SNOMED: 9821619, 63080741 (6) Hypernatremia ICD Codes: E87.0 - Hyperosmolality and hypernatremia SNOMED: 35392517 (7) Elevated troponin ICD Codes: R74.8 - Abnormal levels of other serum enzymes SNOMED: 992627908, 602106835 (8) UTI (urinary tract infection) ICD Codes: N39.0 - Urinary tract infection, site not specified SNOMED: 81097087 (9) Dehydration ICD Codes: E86.0 - Dehydration SNOMED: 05142532 (10) Sacral decubitus ulcer, stage IV ICD Codes: L89.154 - Pressure ulcer of sacral region, stage 4 SNOMED: 894458088, 056589470 Status: deteriorating, other - shock Assessment/Plan: 77 year old female who was undergoing antibiotic therapy for PNA with meropenem at [facility] sent in to the hospital with fever and desaturation. Found to have leukocytosis, fevers, Lactate 4.2. Admitted for septic shock due to pneumonia vs. UTI, acute metabolic encephalopathy, acute hypoxic hypercapnic respiratory failure, severe dehydration, hypernatremia and KEL. Overnight upgraded to ICU due to worsening respiratory failure, Placed on bipap. 1. Resolving septic shock due to ?PNA (CXR bilateral pleural effusion, pulmonary vascular congestion, ? consolidation), ?UTI. Fungemia risk. doubt infected sacral decubitus. -Meropenem, Vancomycin, and fluconazole and polymyxin per ID -ID consult. Dr. Solis -Blood cultures negative. Urine growing yeast -IVF with D5W @ 100 ml/hr , have to be judicious due to history of chf, she is maintaining bp. Hold all bp meds for now -Lactate trended down to 1. -wbc trending down 2. Acute hypoxic hypercarbic respiratory failure. -Upgraded to ICU. Placed on Bi-Level. ABG reviewed, changes have been made. current setting 15/7/0.5 , continue same settings. Follow up CXR. send sputum cultures. 3.Toxic metabolic encephalopathy. Treat sepsis and respiratory failure 4.Severe dehydration and hypernatremia. Continue D5W @ 100 ml/hr .Free water via PEG, 250 ml/hr. Monitor serum sodium Q12hr. Avoid correcting too quickly. Improving 5. History of CVA: Hold PO meds via peg now, once no longer NPO resume Lipitor via peg. Hold antihypertensives now 6. Sacral decub. Dr. Jackson, wound care consult 7. DM II with hyperglycemia. Levemir, insulin aspart sliding scale. 8. KEL. pre-renal due to severe dehydration. Continue IVF. avoid nephrotoxic medications. creatinine better today Nephrology consult: Dr. Vernon. d/w him. KEL has resolved 9. Troponin elevation. No acute ekg changes, demand ischemia. 10. Thrombocytopenia. Due to sepsis. Continue to hold heparin. Monitor platelet count. 11. Moderate protein calorie malnutrition. Resume feeds via PEG once hemodynamically stable. vte ppx: heparin subq- hold for nose bleed GI ppx: IV pantoprazole Diet: NPO, free water via peg Code status: full code (polst reviewed), again message left for Osei echavarria, son @ [phone], today at 09:39 AM. I have spoken to Lluvia ANG, to assist in reaching family member/ next of kin. 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 Subjective Date patient seen: Nov 08, 2018 ROS Limited/Unobtainable: Yes Allergies: Coded Allergies: No Known Allergies (Unverified , 02/04/17) Subjective baseline unable to communicate due to previous CVA, now still remains unresponsive even to painful stimuli Transferred to ICU overnight for hypoxic respiratory failure on 100% nrb Low bp, however maintaining map > 60 and responding to fluid bolus t max 101 wbc trending down sodium trending down Per RN sputum suctioned, bloody. Objective Last 24 Hour Vital Signs Date Time Temp Pulse Resp B/P (MAP) Pulse Ox O2 Delivery O2 Flow Rate FiO2 11/08/18 08:00 60 11/08/18 08:00 97.9 84 18 105/44 (64) 97 11/08/18 08:00 Bi-pap 11/08/18 07:22 101.0 11/08/18 06:50 101.0 91 21 105/44 (64) 100 11/08/18 06:47 94 20 97 60 11/08/18 06:47 94 20 97 Bi-Pap 70 91 21 99 11/08/18 06:37 91 21 99 Facial 70 11/08/18 06:00 60 11/08/18 06:00 93 21 120/62 (81) 100 11/08/18 05:00 96 21 127/57 (80) 100 11/08/18 04:30 99 21 100 Facial 15.0 70 11/08/18 04:00 80 11/08/18 04:00 Bi-pap 14.0 11/08/18 04:00 99.0 96 25 130/57 (81) 100 11/08/18 04:00 95 11/08/18 03:00 95 24 128/55 (79) 100 11/08/18 03:00 95 128/55 (79) 100 11/08/18 02:45 96 22 100 Facial 15.0 80 96 22 100 Bi-Pap 15.0 80 11/08/18 02:44 96 22 100 Bi-Pap 15.0 80 96 22 100 11/08/18 02:00 98.6 99 24 131/57 (81) 100 11/08/18 02:00 99 131/57 (81) 100 11/08/18 01:12 24 93 11/08/18 01:00 101.0 102 24 129/55 (79) 100 11/08/18 01:00 102 129/55 (79) 100 11/08/18 00:20 101 24 100 Facial 15.0 100 11/08/18 00:00 101.0 103 24 124/63 (83) 88 11/08/18 00:00 102 11/08/18 00:00 100 11/08/18 00:00 Venturi Mask 14.0 11/07/18 23:44 106 23 83 103 22 80 11/07/18 21:24 100.1 11/07/18 20:00 Venturi Mask 14.0 11/07/18 20:00 102.4 102 24 134/60 (84) 92 11/07/18 20:00 103 11/07/18 16:00 98.6 101 26 128/62 (84) 94 11/07/18 16:00 99 11/07/18 16:00 Venturi Mask 14.0 11/07/18 12:00 97 11/07/18 12:00 Venturi Mask 14.0 11/07/18 12:00 99.5 95 27 134/67 (89) 93 Intake and Output 11/07/18 11/08/18 18:59 06:59 Intake Total 1800 ml 3050 ml Output Total 150 ml 870 ml Balance 1650 ml 2180 ml Free Water 500 ml 550 ml IV Total 1300 ml 2400 ml Other 100 ml Output Urine Total 150 ml 870 ml # Voids 3 # Bowel Movements 3 Laboratory Tests 11/07/18 12:10: Lactic Acid Level 1.00 11/07/18 18:00: Sodium Level 169*H, Potassium Level 3.0L, Chloride Level 127H, Carbon Dioxide Level 30, Anion Gap 12, Blood Urea Nitrogen 47H, Creatinine 1.1, Estimat Glomerular Filtration Rate , Glucose Level 302#H, Calcium Level 9.0, Random Vancomycin Level 9.4 11/07/18 23:45: Arterial Blood pH 7.371, Arterial Blood Partial Pressure CO2 56.4*H, Arterial Blood Partial Pressure O2 45.3*L, Arterial Blood HCO3 31.9H, Arterial Blood Oxygen Saturation 66.0*L, Arterial Blood Base Excess 5.4H, Ray Test Positive 11/08/18 01:26: Arterial Blood pH 7.385, Arterial Blood Partial Pressure CO2 46.8H, Arterial Blood Partial Pressure O2 161.1H, Arterial Blood HCO3 27.4H, Arterial Blood Oxygen Saturation 98.3, Arterial Blood Base Excess 1.9, Ray Test Positive 11/08/18 03:50: White Blood Count 14.1H, Red Blood Count 3.15L, Hemoglobin 10.0L, Hematocrit 32.4L, Mean Corpuscular Volume 103H, Mean Corpuscular Hemoglobin 31.8H, Mean Corpuscular Hemoglobin Concent 31.0L, Red Cell Distribution Width 14.6, Platelet Count 112L, Mean Platelet Volume 9.6, Neutrophils (%) (Auto) , Lymphocytes (%) (Auto) , Monocytes (%) (Auto) , Eosinophils (%) (Auto) , Basophils (%) (Auto) , Differential Total Cells Counted 100, Neutrophils % ( Manual) 80H, Lymphocytes % (Manual) 17L, Monocytes % (Manual) 3, Eosinophils % ( Manual) 0, Basophils % (Manual) 0, Band Neutrophils 0, Platelet Estimate DecreasedL, Platelet Morphology Normal, Anisocytosis 1+, Macrocytosis 1+, Sodium Level 163*H, Potassium Level 3.4L, Chloride Level 124H, Carbon Dioxide Level 28, Anion Gap 11, Blood Urea Nitrogen 35H, Creatinine 0.9, Estimat Glomerular Filtration Rate , Glucose Level 429#H, Hemoglobin A1c 8.1H, Uric Acid 8.6H, Calcium Level 9.0, Phosphorus Level 2.4L, Magnesium Level 2.4, Iron Level 40L, Total Iron Binding Capacity 150L, Percent Iron Saturation 27, Unsaturated Iron Binding 110L, Ferritin 1962H, Total Bilirubin 0.6, Gamma Glutamyl Transpeptidase 3L, Aspartate Amino Transf (AST/SGOT) 18, Alanine Aminotransferase (ALT/SGPT) 12, Alkaline Phosphatase 79, Total Creatine Kinase 123, C-Reactive Protein, Quantitative > 70.0H, Pro-B-Type Natriuretic Peptide 626H, Total Protein 7.0, Albumin 2.0L, Globulin 5.0, Albumin/Globulin Ratio 0.4L , Vitamin B12 Level 373, Thyroid Stimulating Hormone (TSH) 0.260L Height (Feet): 5 Height (Inches): 3.00 Weight (Pounds): 125 Objective General Appearance: Chronically Ill, unresponsive to all stimuli, on bipap 15/7 /0.5 Head: normocephalic ENT: dry mucus membranes Neck: limited range of motion, supple, no JVD Respiratory: + crackles bilaterally at the base Cardiovascular: RRR, S1S2, no m/r/g, no edema Gastrointestinal: non tender, soft, no mass, other - gtube stoma CDI Musculoskeletal: decreased range of motion Neurologic: unresponsive to al stimuli, aphasic, +hemiplegia Skin: Stage 4 sacral decub ulcer, clean, no discharge or odor Abdullahi Muhammad M.D. Nov 08, 2018 09:41
--- NOTE | 2018-11-08 10:15 | Diagnostic Imaging Report ---
Indication: Dyspnea Comparison: 11/06/2018 A single view chest radiograph was obtained. Findings: Basilar opacities likely represent atelectasis. Pneumonia not entirely excludable. The heart is enlarged. Mild pulmonary vascular congestion suspected and appears worse compared to the prior study. IMPRESSION: Suspected mild pulmonary vascular congestion, slightly worse. Basal atelectasis. Superimposed pneumonia not excluded
[2018-11-08] MEDS ORDERED: D5W 550ml IV ONE (10:33)
[2018-11-08] MEDS ORDERED: Tubing IV Secondary IV ONE ×2 (10:33)
[2018-11-08] MEDS ORDERED: NS 275ml ONE (10:33)
--- NOTE | 2018-11-08 10:46 | NUR ---
RADIOLOGY DEPT., CHEST X-RAY DONE.-P.DYE
--- NOTE | 2018-11-08 11:18 | NUR ---
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 POLST completed by brother Ryan Archibald 03/06/17 indicating Full code, Full treatment with long-term artificial nutrition. Patient doesn't have an advance directive. Patient's brother is the primary contact however he and patient's son Osei Doe [phone] make decisions together. Son drives a bus and is unable to answer his phone when driving. Brother will attend family meeting tomorrow at 10am with Dr. Muhammad. Patient is a full code. Will continue to monitor and assist as needed.
--- NOTE | 2018-11-08 11:22 | Nephrology Progress Note ---
Assessment/Plan Problem List: (1) KEL (acute kidney injury) (2) Hypokalemia (3) Severe sepsis (4) Hypernatremia (5) Hypercalcemia (6) DM (diabetes mellitus) Assessment Sepsis Acute renal failure HyperNatremia Dehydration G Tube Low k DM OOC CVA [place] Previous admission was intubated on vent, but extubated Plan antibiotics Levemir and SS insulin D5W + Free water via GT IV KCl and phos and mag as needed monitor renal parameters and lytes Pulm support correct lytes BS and BP check and monitor per consultants Subjective ROS Limited/Unobtainable: No Constitutional: Reports: malaise, weakness Objective Objective Last 24 Hour Vital Signs Date Time Temp Pulse Resp B/P (MAP) Pulse Ox O2 Delivery O2 Flow Rate FiO2 11/08/18 10:57 83 19 97 Bi-Pap 50 82 20 99 11/08/18 10:47 82 20 99 Facial 40 11/08/18 10:00 81 19 123/57 (79) 98 11/08/18 09:00 74 19 106/51 (69) 97 11/08/18 08:30 74 22 99 Facial 50 11/08/18 08:00 60 11/08/18 08:00 97.9 84 18 105/44 (64) 97 11/08/18 08:00 Bi-pap 11/08/18 07:22 101.0 11/08/18 06:50 101.0 91 21 105/44 (64) 100 11/08/18 06:47 94 20 97 60 11/08/18 06:47 94 20 97 Bi-Pap 70 91 21 99 11/08/18 06:37 91 21 99 Facial 70 11/08/18 06:00 60 11/08/18 06:00 93 21 120/62 (81) 100 11/08/18 05:00 96 21 127/57 (80) 100 11/08/18 04:30 99 21 100 Facial 15.0 70 11/08/18 04:00 80 11/08/18 04:00 Bi-pap 14.0 11/08/18 04:00 99.0 96 25 130/57 (81) 100 11/08/18 04:00 95 11/08/18 03:00 95 24 128/55 (79) 100 11/08/18 03:00 95 128/55 (79) 100 11/08/18 02:45 96 22 100 Facial 15.0 80 96 22 100 Bi-Pap 15.0 80 11/08/18 02:44 96 22 100 Bi-Pap 15.0 80 96 22 100 11/08/18 02:00 98.6 99 24 131/57 (81) 100 11/08/18 02:00 99 131/57 (81) 100 11/08/18 01:12 24 93 11/08/18 01:00 101.0 102 24 129/55 (79) 100 11/08/18 01:00 102 129/55 (79) 100 11/08/18 00:20 101 24 100 Facial 15.0 100 11/08/18 00:00 101.0 103 24 124/63 (83) 88 11/08/18 00:00 102 11/08/18 00:00 100 11/08/18 00:00 Venturi Mask 14.0 11/07/18 23:44 106 23 83 103 22 80 11/07/18 21:24 100.1 11/07/18 20:00 Venturi Mask 14.0 11/07/18 20:00 102.4 102 24 134/60 (84) 92 11/07/18 20:00 103 11/07/18 16:00 98.6 101 26 128/62 (84) 94 11/07/18 16:00 99 11/07/18 16:00 Venturi Mask 14.0 11/07/18 12:00 97 11/07/18 12:00 Venturi Mask 14.0 11/07/18 12:00 99.5 95 27 134/67 (89) 93 Intake and Output 11/07/18 11/08/18 19:00 07:00 Intake Total 1850 ml 3100 ml Output Total 150 ml 870 ml Balance 1700 ml 2230 ml Free Water 550 ml 500 ml IV Total 1300 ml 2500 ml Other 100 ml Output Urine Total 150 ml 870 ml # Voids 3 # Bowel Movements 3 Laboratory Tests 11/07/18 12:10: Lactic Acid Level 1.00 11/07/18 18:00: Sodium Level 169*H, Potassium Level 3.0L, Chloride Level 127H, Carbon Dioxide Level 30, Anion Gap 12, Blood Urea Nitrogen 47H, Creatinine 1.1, Estimat Glomerular Filtration Rate , Glucose Level 302#H, Calcium Level 9.0, Random Vancomycin Level 9.4 11/07/18 23:45: Arterial Blood pH 7.371, Arterial Blood Partial Pressure CO2 56.4*H, Arterial Blood Partial Pressure O2 45.3*L, Arterial Blood HCO3 31.9H, Arterial Blood Oxygen Saturation 66.0*L, Arterial Blood Base Excess 5.4H, Ray Test Positive 11/08/18 01:26: Arterial Blood pH 7.385, Arterial Blood Partial Pressure CO2 46.8H, Arterial Blood Partial Pressure O2 161.1H, Arterial Blood HCO3 27.4H, Arterial Blood Oxygen Saturation 98.3, Arterial Blood Base Excess 1.9, Ray Test Positive 11/08/18 03:50: White Blood Count 14.1H, Red Blood Count 3.15L, Hemoglobin 10.0L, Hematocrit 32.4L, Mean Corpuscular Volume 103H, Mean Corpuscular Hemoglobin 31.8H, Mean Corpuscular Hemoglobin Concent 31.0L, Red Cell Distribution Width 14.6, Platelet Count 112L, Mean Platelet Volume 9.6, Neutrophils (%) (Auto) , Lymphocytes (%) (Auto) , Monocytes (%) (Auto) , Eosinophils (%) (Auto) , Basophils (%) (Auto) , Differential Total Cells Counted 100, Neutrophils % ( Manual) 80H, Lymphocytes % (Manual) 17L, Monocytes % (Manual) 3, Eosinophils % ( Manual) 0, Basophils % (Manual) 0, Band Neutrophils 0, Platelet Estimate DecreasedL, Platelet Morphology Normal, Anisocytosis 1+, Macrocytosis 1+, Sodium Level 163*H, Potassium Level 3.4L, Chloride Level 124H, Carbon Dioxide Level 28, Anion Gap 11, Blood Urea Nitrogen 35H, Creatinine 0.9, Estimat Glomerular Filtration Rate , Glucose Level 429#H, Hemoglobin A1c 8.1H, Uric Acid 8.6H, Calcium Level 9.0, Phosphorus Level 2.4L, Magnesium Level 2.4, Iron Level 40L, Total Iron Binding Capacity 150L, Percent Iron Saturation 27, Unsaturated Iron Binding 110L, Ferritin 1962H, Total Bilirubin 0.6, Gamma Glutamyl Transpeptidase 3L, Aspartate Amino Transf (AST/SGOT) 18, Alanine Aminotransferase (ALT/SGPT) 12, Alkaline Phosphatase 79, Total Creatine Kinase 123, C-Reactive Protein, Quantitative > 70.0H, Pro-B-Type Natriuretic Peptide 626H, Total Protein 7.0, Albumin 2.0L, Globulin 5.0, Albumin/Globulin Ratio 0.4L , Vitamin B12 Level 373, Folate [Pending], Thyroid Stimulating Hormone (TSH) 0.260L Height (Feet): 5 Height (Inches): 3.00 Weight (Pounds): 125 General Appearance: lethargic, confused, mild distress Cardiovascular: tachycardia Respiratory/Chest: decreased breath sounds Abdomen: distended Objective no change Dwayne Vernon MD Nov 08, 2018 11:22
--- NOTE | 2018-11-08 12:00 | NUR ---
NURSE NOTES: Patient blood pressure 130/55, HR 84, FiO2 96%, and RR 19. Patient remains unresponsive to voice, light pain, and deep pain. Upper and lower extremities remain flaccid. Patient on BiPAP 15/7 with 50% FiO2 at this time. Patient tolerating setting. Patient showing sinus rhythm on the quality assurance monitor. Sputum and mucous membranes remain bloody. MD aware. Will continue to monitor and hold anticoagulants. purewick remains patent and draining at this time. Right forearm 18G PIV remains sluggish to flush and bruised and saline locked. Left forearm 22G PIV remains patent, asymptomatic, and running D5W at 100mL/hr. Patient potassium of 3.4 covered with potassium phosphate 20mmol by Dr Vernon. Will continue to monitor. Bed in low position with bed alarm on and call light in reach at this time. Oral care performed. Patient cleaned at this time and repositioned.
--- NOTE | 2018-11-08 14:00 | NUR ---
NURSE NOTES: Blood pressure 118/53, HR 84, SPO2 96% on BiPAP 15/7 at 30% FiO2 and RR 21. Patient showing no sign of acute distress. Patient starting to open her eyes but does not communicate or respond to voice, light pain, or deep pain. Will continue to monitor. Patient repositioned a this time.
--- NOTE | 2018-11-08 14:23 | Pulmonolgy Critical Care Note ---
Critical Care - Asmt/Plan Problems: (1) Severe sepsis (2) Septic shock (3) SOB (shortness of breath) (4) Respiratory failure with hypoxia and hypercapnia (5) Sacral decubitus ulcer, stage IV (6) Renal insufficiency (7) G tube feedings (8) Electrolyte imbalance (9) Altered mental status (10) H/O: CVA (cerebrovascular accident) (11) Pneumonia (12) KEL (acute kidney injury) (13) Hypernatremia (14) DM (diabetes mellitus) (15) Toxic metabolic encephalopathy (16) Dehydration Respiratory: monitor respiratory rate, ABG, other - Attempt to wean off BiPAP, HHN's, mobilize Cardiac: continue to monitor HR/BP Renal: keep IV fluid, check electrolytes, other - F/U renal recs Infectious Disease: check cultures, continue antibiotics - per ID Gastrointestinal: hold feedings - until off BiPAP Endocrine: monitor blood sugar, continue sliding scale insulin Hematologic: monitor H/H Neurologic: keep patient comfortable Prophylaxis: Protonix, Heparin - SQ Disposition: keep in ICU Time Spent (Minutes): 60 Notes 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, 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, ID Discussed with: nurses, consultants Critical Care - Objective Last 24 Hour Vital Signs Date Time Temp Pulse Resp B/P (MAP) Pulse Ox O2 Delivery O2 Flow Rate FiO2 11/08/18 12:30 82 20 99 Facial 30 11/08/18 10:57 83 19 97 Bi-Pap 50 82 20 99 11/08/18 10:47 82 20 99 Facial 40 11/08/18 10:00 81 19 123/57 (79) 98 11/08/18 09:00 74 19 106/51 (69) 97 11/08/18 08:30 74 22 99 Facial 50 11/08/18 08:00 60 11/08/18 08:00 97.9 84 18 105/44 (64) 97 11/08/18 08:00 Bi-pap 11/08/18 07:22 101.0 11/08/18 06:50 101.0 91 21 105/44 (64) 100 11/08/18 06:47 94 20 97 60 11/08/18 06:47 94 20 97 Bi-Pap 70 91 21 99 11/08/18 06:37 91 21 99 Facial 70 11/08/18 06:00 60 11/08/18 06:00 93 21 120/62 (81) 100 11/08/18 05:00 96 21 127/57 (80) 100 11/08/18 04:30 99 21 100 Facial 15.0 70 11/08/18 04:00 80 11/08/18 04:00 Bi-pap 14.0 11/08/18 04:00 99.0 96 25 130/57 (81) 100 11/08/18 04:00 95 11/08/18 03:00 95 24 128/55 (79) 100 11/08/18 03:00 95 128/55 (79) 100 11/08/18 02:45 96 22 100 Facial 15.0 80 96 22 100 Bi-Pap 15.0 80 11/08/18 02:44 96 22 100 Bi-Pap 15.0 80 96 22 100 11/08/18 02:00 98.6 99 24 131/57 (81) 100 11/08/18 02:00 99 131/57 (81) 100 11/08/18 01:12 24 93 11/08/18 01:00 101.0 102 24 129/55 (79) 100 11/08/18 01:00 102 129/55 (79) 100 11/08/18 00:20 101 24 100 Facial 15.0 100 11/08/18 00:00 101.0 103 24 124/63 (83) 88 11/08/18 00:00 102 11/08/18 00:00 100 11/08/18 00:00 Venturi Mask 14.0 11/07/18 23:44 106 23 83 103 22 80 11/07/18 21:24 100.1 11/07/18 20:00 Venturi Mask 14.0 11/07/18 20:00 102.4 102 24 134/60 (84) 92 11/07/18 20:00 103 11/07/18 16:00 98.6 101 26 128/62 (84) 94 11/07/18 16:00 99 11/07/18 16:00 Venturi Mask 14.0 Status: obtunded - BiPAP Condition: critical HEENT: atraumatic, normocephalic Neck: full ROM Lungs: rhonchi Heart: HR/BP stable Abdomen: soft, non-tender, active bowel sounds, feeding tube Extremities: edema - 1+ Decubiti: location - sacral, stage - 4 Micro: Microbiology Date/Time Source Procedure Growth Status 11/06/18 12:20 Blood Blood Culture - Preliminary NO GROWTH AFTER 24 HOURS Resulted 11/06/18 12:10 Blood Blood Culture - Preliminary NO GROWTH AFTER 24 HOURS Resulted 11/06/18 12:30 Nasal Nares Left MRSA Culture - Final Staphylococcus Aureus - Mrsa Complete 11/06/18 12:20 Urine,Clean Catch Urine Culture - Preliminary YEAST Resulted Accucheck: 346 Blood Sugars: BS not controlled Critical Care - Subjective ROS Limited/Unobtainable: Yes - 1 ICU Day: 1 Intubation Day: N/A on BiPAP Interval Events: 78 F NHR h/o dementia, CVA, GT, HTN, HL recently a/w sepsis now back with hypoxemia, dehydration, hyperNa and fevers, inc WOB on started on BiPAP 7.38/46/151/27/98, WCT 22 --> 14, Na 174 --> 163 On flucon, whitney, polymixin, vanco Condition: critical IV Access: peripheral EKG Rhythm: Sinus Rhythm FI02: 30 Vent Support Mode: BiLevel Sputum Amount: None Fluids: D5W@100 I&O: Intake and Output 11/07/18 11/08/18 19:00 07:00 Intake Total 1850 ml 3100 ml Output Total 150 ml 870 ml Balance 1700 ml 2230 ml Free Water 550 ml 500 ml IV Total 1300 ml 2500 ml Other 100 ml Output Urine Total 150 ml 870 ml # Voids 3 # Bowel Movements 3 Subjective: ARLETTE CXR: Mild PVC Labs: Laboratory Tests Test 11/07/18 18:00 11/07/18 23:45 11/08/18 01:26 11/08/18 03:50 Sodium Level 169 MMOL/L (136-145) *H 163 MMOL/L (136-145) *H Potassium Level 3.0 MMOL/L (3.5-5.1) L 3.4 MMOL/L (3.5-5.1) L Chloride Level 127 MMOL/L (98-107) H 124 MMOL/L (98-107) H Carbon Dioxide Level 30 MMOL/L (21-32) 28 MMOL/L (21-32) Anion Gap 12 mmol/L (5-15) 11 mmol/L (5-15) Blood Urea Nitrogen 47 mg/dL (7-18) H 35 mg/dL (7-18) H Creatinine 1.1 MG/DL (0.55-1.30) 0.9 MG/DL (0.55-1.30) Estimat Glomerular Filtration Rate mL/min (>60) mL/min (>60) Glucose Level 302 MG/DL (74-106) #H 429 MG/DL (74-106) #H Calcium Level 9.0 MG/DL (8.5-10.1) 9.0 MG/DL (8.5-10.1) Random Vancomycin Level 9.4 ug/mL Arterial Blood pH 7.371 (7.350-7.450) 7.385 (7.350-7.450) Arterial Blood Partial Pressure CO2 56.4 mmHg (35.0-45.0) *H 46.8 mmHg (35.0-45.0) H Arterial Blood Partial Pressure O2 45.3 mmHg (75.0-100.0) 161.1 mmHg (75.0-100.0) H Arterial Blood HCO3 31.9 mmol/L (22.0-26.0) H 27.4 mmol/L (22.0-26.0) H Arterial Blood Oxygen Saturation 66.0 % (95-100) *L 98.3 % (95-100) Arterial Blood Base Excess 5.4 (-2-2) H 1.9 (-2-2) Ray Test Positive Positive White Blood Count 14.1 K/UL (4.8-10.8) H Red Blood Count 3.15 M/UL (4.20-5.40) L Hemoglobin 10.0 G/DL (12.0-16.0) L Hematocrit 32.4 % (37.0-47.0) L Mean Corpuscular Volume 103 FL (80-99) H Mean Corpuscular Hemoglobin 31.8 PG (27.0-31.0) H Mean Corpuscular Hemoglobin Concent 31.0 G/DL (32.0-36.0) L Red Cell Distribution Width 14.6 % (11.6-14.8) Platelet Count 112 K/UL (150-450) L Mean Platelet Volume 9.6 FL (6.5-10.1) Neutrophils (%) (Auto) % (45.0-75.0) Lymphocytes (%) (Auto) % (20.0-45.0) Monocytes (%) (Auto) % (1.0-10.0) Eosinophils (%) (Auto) % (0.0-3.0) Basophils (%) (Auto) % (0.0-2.0) Differential Total Cells Counted 100 Neutrophils % (Manual) 80 % (45-75) H Lymphocytes % (Manual) 17 % (20-45) L Monocytes % (Manual) 3 % (1-10) Eosinophils % (Manual) 0 % (0-3) Basophils % (Manual) 0 % (0-2) Band Neutrophils 0 % (0-8) Platelet Estimate Decreased L Platelet Morphology Normal Anisocytosis 1+ Macrocytosis 1+ Hemoglobin A1c 8.1 % (4.3-6.0) H Uric Acid 8.6 MG/DL (2.6-7.2) H Phosphorus Level 2.4 MG/DL (2.5-4.9) L Magnesium Level 2.4 MG/DL (1.8-2.4) Iron Level 40 ug/dL (50-175) L Total Iron Binding Capacity 150 ug/dL (250-450) L Percent Iron Saturation 27 % (15-50) Unsaturated Iron Binding 110 ug/dL (112-346) L Ferritin 1962 NG/ML (8-388) H Total Bilirubin 0.6 MG/DL (0.2-1.0) Gamma Glutamyl Transpeptidase 3 U/L (5-85) L Aspartate Amino Transf (AST/SGOT) 18 U/L (15-37) Alanine Aminotransferase (ALT/SGPT) 12 U/L (12-78) Alkaline Phosphatase 79 U/L (46-116) Total Creatine Kinase 123 U/L (26-308) C-Reactive Protein, Quantitative > 70.0 mg/dL (0.00-0.90) H Pro-B-Type Natriuretic Peptide 626 pg/mL (0-125) H Total Protein 7.0 G/DL (6.4-8.2) Albumin 2.0 G/DL (3.4-5.0) L Globulin 5.0 g/dL Albumin/Globulin Ratio 0.4 (1.0-2.7) L Vitamin B12 Level 373 PG/ML (193-986) Folate 19.9 NG/ML (8.6-58.9) Thyroid Stimulating Hormone (TSH) 0.260 uiU/mL (0.358-3.740) Bimal Milner MD Nov 08, 2018 14:23
--- NOTE | 2018-11-08 14:59 | NUR ---
HAND-OFF: Report given to Sarah Osorio RN. Patient VS stable at this time. Endorsed to monitor and follow up.
--- NOTE | 2018-11-08 15:00 | NUR ---
NURSE NOTES: Received pt from Sarah Quinonez RN. Patient opens eyes but unable to track, aphasic. A/Ox0. Patient on BIPAP 15/7, Fio2 30%. Spo2 100%, RR 24. Course rhonchi heard bilateral b/s. Labored breathing noted. BP stable. SR. Ax temp 98.8. Patient had mucousy brown BM. C-diff collected and sent to lab. Abdomen is non-distended. PEG upper left quadrant. NPO. Incontinent and has a purwick. Sacral unstageable wound, dressing clean. p200 mattress. RFA 18G running D5W@100ml/hr. Removed IV on LFA 20G d/t infiltration. Inserted IV on right foot 20G, received orders from Dr. Milner. Bed locked, alarmed and in lowest position. Will continue plan of care.
--- NOTE | 2018-11-08 15:31 | NUR ---
CASE MANAGEMENT: REVIEW 11/08/18 SI:SEPTIC SHOCK, SEPSIS, PNA 97.9 84 18 105/44 97% BiPAP K+ 3.4; WBC 14.1; NA+ 163; BG 429; BUN+35; BNP 626; URIC ACID 8.6;M FERRITIN 1962 ABG: pH 7.385; pCO2 46.8; pO2 161.1, HCO3 27.4 IS: IV POLYMYXIN B Q12 IV FLUCONAZOLE Q24 IV PROTONIX QD IVF @100/HR IV MEROPENEM X1 LEVEMIR QD HS NOVOLOG SQ AC&HS ALBUTEROL HHN Q4/PRN ATROVENT HHN IV SOLUMEDROL : TO ICU DCP: TO RETURN TO [facility]
--- NOTE | 2018-11-08 16:00 | NUR ---
NURSE NOTES: Placed patient on Venturi mask 9L, 45%. Patient desat to 84% and labored breathing noted. Placed patient back on BIPAP. Ax temp 101.6. Tylenol given via G-tube and ice pack placed under arms.
[2018-11-08] MEDS ORDERED: Albuterol/Ipratropium 3ml neb HHN PRN (17:37)
[2018-11-08] MEDS ORDERED: HYDROmorphone 1mg/ml Carpuject IVP PRN (17:38)
--- NOTE | 2018-11-08 19:12 | NUR ---
HAND-OFF: Report given to FELIX Lopez.
--- NOTE | 2018-11-08 19:18 | NUR ---
NURSE NOTES: Received patient from Sarah Funes RN. Will continue plan of care.
--- NOTE | 2018-11-08 20:00 | NUR ---
NURSE NOTES: Vital signs are stable; temperature at 97.5F. Patient remains on BiPAP 15/7 @ 30% FiO2 and O2 saturating at 100%. Patient is obtunded but showing no signs or pain or distress. Bed on lowest position, alarm is activated. Will continue plan of care.
--- NOTE | 2018-11-08 20:58 | Infectious Diseases Prog Note ---
Assessment/Plan Assessment/Plan ASSESSMENT AND PLAN: 1. sepsis, pna, chf/edema/atx, fungal uti, fungemia risk, sacral wound, sirs, leukocytosis, fevers, bipap, sob/hypoxia, mary - vancomycin, meropenem, diflucan, polymyxin - f/u on cultures and labs - monitor chest x-ray - bipap - icu care 2. Wound care per surgery and protocol. 3. Elevated creatinine with acute kidney injury. 4. Diabetes. 5. Hypertension. 6. Blood sugar and blood pressure treatment per primary consultants for diabetes and hypertension. 7. Anemia. 8. CVA. 9. Aspiration risk. 10. Aspiration precautions for CVA and aspiration risk. 11. Dysphagia. G-tube. 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 13. Dementia. 14. Encephalopathy. 15. History of sepsis and lactic acidosis. 16. No known drug allergies. 17. Family history is noncontributory. 18. Social history is negative. 19. MAR is noted. 20. Case was discussed with RN. 21. Continue treatment per primary consultants. 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 Subjective Constitutional: Reports: fever - fever curve better HEENT: Reports: congestion Respiratory: Reports: shortness of breath Cardiovascular: Reports: other - no presssors ; Denies: chest pain Gastrointestinal/Abdominal: Denies: nausea, vomiting, diarrhea Genitourinary: Reports: other - no taylor Neurologic: Reports: other - lethargic, poorly responsive Psychiatric: Reports: other - NA Skin: Denies: rash Musculoskeletal: Reports: other - NA Allergies: Coded Allergies: No Known Allergies (Unverified , 02/04/17) Objective Vital Signs Last 24 Hour Vital Signs Date Time Temp Pulse Resp B/P (MAP) Pulse Ox O2 Delivery O2 Flow Rate FiO2 11/08/18 20:00 Bi-pap 11/08/18 20:00 30 11/08/18 19:18 71 20 95 Facial 30 71 18 98 Bi-Pap 30 11/08/18 18:00 75 21 119/48 (71) 97 11/08/18 17:00 99.8 75 20 94/41 (58) 98 11/08/18 16:34 99.8 11/08/18 16:21 91 19 93 Facial 30 11/08/18 16:00 50 11/08/18 16:00 Bi-pap 11/08/18 16:00 101.6 87 20 127/61 (83) 92 11/08/18 16:00 95 11/08/18 15:00 87 23 118/53 (74) 97 11/08/18 14:54 86 23 97 Bi-Pap 30 83 22 97 11/08/18 14:43 93 19 97 Facial 30 11/08/18 14:00 83 21 124/56 (78) 93 11/08/18 13:00 82 18 130/55 (80) 97 11/08/18 12:30 82 20 99 Facial 30 11/08/18 12:00 85 11/08/18 12:00 98.6 85 19 132/59 (83) 95 11/08/18 12:00 50 11/08/18 12:00 Bi-pap 11/08/18 11:00 84 18 122/55 (77) 97 11/08/18 10:57 83 19 97 Bi-Pap 50 82 20 99 11/08/18 10:47 82 20 99 Facial 40 11/08/18 10:00 81 19 123/57 (79) 98 11/08/18 09:00 74 19 106/51 (69) 97 11/08/18 08:30 74 22 99 Facial 50 11/08/18 08:00 86 11/08/18 08:00 60 11/08/18 08:00 97.9 84 18 105/44 (64) 97 11/08/18 08:00 Bi-pap 11/08/18 06:50 101.0 91 21 105/44 (64) 100 11/08/18 06:47 94 20 97 60 11/08/18 06:47 94 20 97 Bi-Pap 70 91 21 99 11/08/18 06:37 91 21 99 Facial 70 11/08/18 06:00 60 11/08/18 06:00 93 21 120/62 (81) 100 11/08/18 05:00 96 21 127/57 (80) 100 11/08/18 04:30 99 21 100 Facial 15.0 70 11/08/18 04:00 80 11/08/18 04:00 Bi-pap 14.0 11/08/18 04:00 99.0 96 25 130/57 (81) 100 11/08/18 04:00 95 11/08/18 03:00 95 24 128/55 (79) 100 11/08/18 03:00 95 128/55 (79) 100 11/08/18 02:45 96 22 100 Facial 15.0 80 96 22 100 Bi-Pap 15.0 80 11/08/18 02:44 96 22 100 Bi-Pap 15.0 80 96 22 100 11/08/18 02:00 98.6 99 24 131/57 (81) 100 11/08/18 02:00 99 131/57 (81) 100 11/08/18 01:12 24 93 11/08/18 01:00 101.0 102 24 129/55 (79) 100 11/08/18 01:00 102 129/55 (79) 100 11/08/18 00:20 101 24 100 Facial 15.0 100 11/08/18 00:00 101.0 103 24 124/63 (83) 88 11/08/18 00:00 102 11/08/18 00:00 100 11/08/18 00:00 Venturi Mask 14.0 11/07/18 23:44 106 23 83 103 22 80 11/07/18 21:24 100.1 Height (Feet): 5 Height (Inches): 3.00 Weight (Pounds): 125 General Appearance: other - + bipap, + sob HEENT: normocephalic, atraumatic, anicteric, mucous membranes moist Respiratory/Chest: crackles/rales, rhonchi - bilaterally Cardiovascular: normal rate, regular rhythm, no gallop/murmur, no JVD Abdomen: normal bowel sounds, soft, non tender, no organomegaly, non distended Genitourinary: other - no taylor Extremities: no cyanosis Skin: no rash, other - wounds covered Neurologic/Psychiatric: blackener II-XII grossly normal, motor weakness, other - lethargic and weak, on bipap, poorly responsive Lymphatic: no neck adenopathy Musculoskeletal: no effusion Objective Chest x-ray - 11/08/18 - Basilar opacities likely represent atelectasis. Pneumonia not entirely excludable. The heart is enlarged. Mild pulmonary vascular congestion suspected and appears worse compared to the prior study. IMPRESSION: Suspected mild pulmonary vascular congestion, slightly worse. Basal atelectasis. Superimposed pneumonia not excluded Microbiology Date/Time Source Procedure Growth Status 11/06/18 12:20 Blood Blood Culture - Preliminary NO GROWTH AFTER 24 HOURS Resulted 11/06/18 12:10 Blood Blood Culture - Preliminary NO GROWTH AFTER 24 HOURS Resulted 11/06/18 12:30 Nasal Nares Left MRSA Culture - Final Staphylococcus Aureus - Mrsa Complete 11/06/18 12:20 Urine,Clean Catch Urine Culture - Preliminary YEAST Resulted Laboratory Tests Test 11/07/18 23:45 11/08/18 01:26 11/08/18 03:50 Arterial Blood pH 7.371 (7.350-7.450) 7.385 (7.350-7.450) Arterial Blood Partial Pressure CO2 56.4 mmHg (35.0-45.0) *H 46.8 mmHg (35.0-45.0) H Arterial Blood Partial Pressure O2 45.3 mmHg (75.0-100.0) 161.1 mmHg (75.0-100.0) H Arterial Blood HCO3 31.9 mmol/L (22.0-26.0) H 27.4 mmol/L (22.0-26.0) H Arterial Blood Oxygen Saturation 66.0 % (95-100) *L 98.3 % (95-100) Arterial Blood Base Excess 5.4 (-2-2) H 1.9 (-2-2) Ray Test Positive Positive White Blood Count 14.1 K/UL (4.8-10.8) H Red Blood Count 3.15 M/UL (4.20-5.40) L Hemoglobin 10.0 G/DL (12.0-16.0) L Hematocrit 32.4 % (37.0-47.0) L Mean Corpuscular Volume 103 FL (80-99) H Mean Corpuscular Hemoglobin 31.8 PG (27.0-31.0) H Mean Corpuscular Hemoglobin Concent 31.0 G/DL (32.0-36.0) L Red Cell Distribution Width 14.6 % (11.6-14.8) Platelet Count 112 K/UL (150-450) L Mean Platelet Volume 9.6 FL (6.5-10.1) Neutrophils (%) (Auto) % (45.0-75.0) Lymphocytes (%) (Auto) % (20.0-45.0) Monocytes (%) (Auto) % (1.0-10.0) Eosinophils (%) (Auto) % (0.0-3.0) Basophils (%) (Auto) % (0.0-2.0) Differential Total Cells Counted 100 Neutrophils % (Manual) 80 % (45-75) H Lymphocytes % (Manual) 17 % (20-45) L Monocytes % (Manual) 3 % (1-10) Eosinophils % (Manual) 0 % (0-3) Basophils % (Manual) 0 % (0-2) Band Neutrophils 0 % (0-8) Platelet Estimate Decreased L Platelet Morphology Normal Anisocytosis 1+ Macrocytosis 1+ Sodium Level 163 MMOL/L (136-145) *H Potassium Level 3.4 MMOL/L (3.5-5.1) L Chloride Level 124 MMOL/L (98-107) H Carbon Dioxide Level 28 MMOL/L (21-32) Anion Gap 11 mmol/L (5-15) Blood Urea Nitrogen 35 mg/dL (7-18) H Creatinine 0.9 MG/DL (0.55-1.30) Estimat Glomerular Filtration Rate mL/min (>60) Glucose Level 429 MG/DL (74-106) #H Hemoglobin A1c 8.1 % (4.3-6.0) H Uric Acid 8.6 MG/DL (2.6-7.2) H Calcium Level 9.0 MG/DL (8.5-10.1) Phosphorus Level 2.4 MG/DL (2.5-4.9) L Magnesium Level 2.4 MG/DL (1.8-2.4) Iron Level 40 ug/dL (50-175) L Total Iron Binding Capacity 150 ug/dL (250-450) L Percent Iron Saturation 27 % (15-50) Unsaturated Iron Binding 110 ug/dL (112-346) L Ferritin 1962 NG/ML (8-388) H Total Bilirubin 0.6 MG/DL (0.2-1.0) Gamma Glutamyl Transpeptidase 3 U/L (5-85) L Aspartate Amino Transf (AST/SGOT) 18 U/L (15-37) Alanine Aminotransferase (ALT/SGPT) 12 U/L (12-78) Alkaline Phosphatase 79 U/L (46-116) Total Creatine Kinase 123 U/L (26-308) C-Reactive Protein, Quantitative > 70.0 mg/dL (0.00-0.90) H Pro-B-Type Natriuretic Peptide 626 pg/mL (0-125) H Total Protein 7.0 G/DL (6.4-8.2) Albumin 2.0 G/DL (3.4-5.0) L Globulin 5.0 g/dL Albumin/Globulin Ratio 0.4 (1.0-2.7) L Vitamin B12 Level 373 PG/ML (193-986) Folate 19.9 NG/ML (8.6-58.9) Thyroid Stimulating Hormone (TSH) 0.260 uiU/mL (0.358-3.740) Current Medications Medications (Trade) Dose Ordered Sig/Wayne Route PRN Reason Start Time Stop Time Status Last Admin Dose Admin Acetaminophen (Tylenol) 650 mg Q4H PRN ORAL Mild Pain (Pain Scale 1-3) 11/08/18 17:37 12/08/18 17:36 Acetaminophen (Tylenol) 650 mg Q4H PRN ORAL fever 11/08/18 18:00 12/06/18 13:59 Albuterol/ Ipratropium (Albuterol/ Ipratropium) 3 ml Q4H PRN HHN Shortness of Breath 11/08/18 17:37 11/13/18 17:36 Albuterol/ Ipratropium (Albuterol/ Ipratropium) 3 ml Q4HRT HHN 11/08/18 19:00 11/12/18 22:59 11/08/18 19:17 Ascorbic Acid (Vitamin C) 500 mg DAILY ORAL 11/09/18 09:00 12/08/18 08:59 Dextrose 1,000 ml @ 100 mls/hr Q10H IV 11/08/18 17:36 12/08/18 17:35 11/08/18 17:48 Dextrose (Dextrose 50%) 25 ml Q30M PRN IV Hypoglycemia 11/08/18 18:00 12/08/18 14:29 Dextrose (Dextrose 50%) 50 ml Q30M PRN IV Hypoglycemia 11/08/18 18:00 12/08/18 14:29 Fluconazole/ Sodium Chloride 100 ml @ 100 mls/hr Q24H IV 11/09/18 18:00 11/16/18 17:59 Heparin Sodium (Porcine) (Heparin 5000 units/ml) 5,000 units EVERY 8 HOURS SUBQ 11/08/18 22:00 12/06/18 13:59 Hydromorphone HCl (Dilaudid) 1 mg Q6H PRN IVP Moderate Pain (Pain Scale 4-6) 11/08/18 17:38 11/15/18 17:37 Hydromorphone HCl (Dilaudid) 2 mg Q6H PRN IVP Severe Pain (Pain Scale 7-10) 11/08/18 17:38 11/15/18 17:37 Insulin Aspart (NovoLOG) BEFORE MEALS AND HS SUBQ 11/08/18 21:00 12/06/18 20:59 Insulin Detemir (Levemir) 10 units BEDTIME SUBQ 11/08/18 21:00 12/08/18 20:59 Meropenem 1 gm/ Sodium Chloride 100 ml @ 200 mls/hr Q12HR IVPB 11/08/18 21:00 11/11/18 20:59 Ondansetron HCl (Zofran) 4 mg Q6H PRN IVP Nausea & Vomiting 11/08/18 17:38 12/08/18 17:37 Pantoprazole (Protonix) 40 mg DAILY IV 11/09/18 09:00 12/07/18 08:59 Polymyxin B Sulfate 875338 units/Dextrose 500 ml @ 500 mls/hr Q12H IVPB 11/09/18 01:00 11/14/18 12:59 Vancomycin HCl (Vanco rx to dose) 1 ea DAILY PRN MISC Per rx protocol 11/09/18 09:00 12/06/18 16:59 Milton Valladares MD Nov 08, 2018 20:58
--- NOTE | 2018-11-08 22:00 | NUR ---
NURSE NOTES: Vital signs are stable. Cooling measures placed, no elevated temperature at this time. Patient is obtunded, does not arouse by voice and pain. Will continue to monitor.
--- NOTE | 2018-11-08 22:54 | Surgery Progress Note ---
Surgery Progress Note Subjective Additional Comments no acute events labs noted exam unchanged Objective Last 24 Hour Vital Signs Date Time Temp Pulse Resp B/P (MAP) Pulse Ox O2 Delivery O2 Flow Rate FiO2 11/08/18 21:29 87 18 99 Facial 30 11/08/18 21:00 85 19 126/63 (84) 97 11/08/18 20:00 Bi-pap 11/08/18 20:00 79 18 129/58 (81) 98 11/08/18 20:00 30 11/08/18 19:18 71 20 95 Facial 30 71 18 98 Bi-Pap 30 11/08/18 19:14 72 11/08/18 19:00 97.5 74 17 110/46 (67) 99 11/08/18 18:00 75 21 119/48 (71) 97 11/08/18 17:00 99.8 75 20 94/41 (58) 98 11/08/18 16:34 99.8 11/08/18 16:21 91 19 93 Facial 30 11/08/18 16:00 50 11/08/18 16:00 Bi-pap 11/08/18 16:00 101.6 87 20 127/61 (83) 92 11/08/18 16:00 95 11/08/18 15:00 87 23 118/53 (74) 97 11/08/18 14:54 86 23 97 Bi-Pap 30 83 22 97 11/08/18 14:43 93 19 97 Facial 30 11/08/18 14:00 83 21 124/56 (78) 93 11/08/18 13:00 82 18 130/55 (80) 97 11/08/18 12:30 82 20 99 Facial 30 11/08/18 12:00 85 11/08/18 12:00 98.6 85 19 132/59 (83) 95 11/08/18 12:00 50 11/08/18 12:00 Bi-pap 11/08/18 11:00 84 18 122/55 (77) 97 11/08/18 10:57 83 19 97 Bi-Pap 50 82 20 99 11/08/18 10:47 82 20 99 Facial 40 11/08/18 10:00 81 19 123/57 (79) 98 11/08/18 09:00 74 19 106/51 (69) 97 11/08/18 08:30 74 22 99 Facial 50 11/08/18 08:00 86 11/08/18 08:00 60 11/08/18 08:00 97.9 84 18 105/44 (64) 97 11/08/18 08:00 Bi-pap 11/08/18 06:50 101.0 91 21 105/44 (64) 100 11/08/18 06:47 94 20 97 60 11/08/18 06:47 94 20 97 Bi-Pap 70 91 21 99 11/08/18 06:37 91 21 99 Facial 70 11/08/18 06:00 60 11/08/18 06:00 93 21 120/62 (81) 100 11/08/18 05:00 96 21 127/57 (80) 100 11/08/18 04:30 99 21 100 Facial 15.0 70 11/08/18 04:00 80 11/08/18 04:00 Bi-pap 14.0 11/08/18 04:00 99.0 96 25 130/57 (81) 100 11/08/18 04:00 95 11/08/18 03:00 95 24 128/55 (79) 100 11/08/18 03:00 95 128/55 (79) 100 11/08/18 02:45 96 22 100 Facial 15.0 80 96 22 100 Bi-Pap 15.0 80 11/08/18 02:44 96 22 100 Bi-Pap 15.0 80 96 22 100 11/08/18 02:00 98.6 99 24 131/57 (81) 100 11/08/18 02:00 99 131/57 (81) 100 11/08/18 01:12 24 93 11/08/18 01:00 101.0 102 24 129/55 (79) 100 11/08/18 01:00 102 129/55 (79) 100 11/08/18 00:20 101 24 100 Facial 15.0 100 11/08/18 00:00 101.0 103 24 124/63 (83) 88 11/08/18 00:00 102 11/08/18 00:00 100 11/08/18 00:00 Venturi Mask 14.0 11/07/18 23:44 106 23 83 103 22 80 I&O Intake and Output 11/07/18 11/08/18 19:00 07:00 Intake Total 1850 ml 3100 ml Output Total 150 ml 870 ml Balance 1700 ml 2230 ml Free Water 550 ml 500 ml IV Total 1300 ml 2500 ml Other 100 ml Output Urine Total 150 ml 870 ml # Voids 3 # Bowel Movements 3 Dressing: saturated Wound: other Drains: other Cardiovascular: RSR Respiratory: decreased breath sounds Abdomen: soft, present bowel sounds Extremities: no cyanosis, other Laboratory Tests Test 11/07/18 23:45 11/08/18 01:26 11/08/18 03:50 Arterial Blood pH 7.371 (7.350-7.450) 7.385 (7.350-7.450) Arterial Blood Partial Pressure CO2 56.4 mmHg (35.0-45.0) *H 46.8 mmHg (35.0-45.0) H Arterial Blood Partial Pressure O2 45.3 mmHg (75.0-100.0) 161.1 mmHg (75.0-100.0) H Arterial Blood HCO3 31.9 mmol/L (22.0-26.0) H 27.4 mmol/L (22.0-26.0) H Arterial Blood Oxygen Saturation 66.0 % (95-100) *L 98.3 % (95-100) Arterial Blood Base Excess 5.4 (-2-2) H 1.9 (-2-2) Ray Test Positive Positive White Blood Count 14.1 K/UL (4.8-10.8) H Red Blood Count 3.15 M/UL (4.20-5.40) L Hemoglobin 10.0 G/DL (12.0-16.0) L Hematocrit 32.4 % (37.0-47.0) L Mean Corpuscular Volume 103 FL (80-99) H Mean Corpuscular Hemoglobin 31.8 PG (27.0-31.0) H Mean Corpuscular Hemoglobin Concent 31.0 G/DL (32.0-36.0) L Red Cell Distribution Width 14.6 % (11.6-14.8) Platelet Count 112 K/UL (150-450) L Mean Platelet Volume 9.6 FL (6.5-10.1) Neutrophils (%) (Auto) % (45.0-75.0) Lymphocytes (%) (Auto) % (20.0-45.0) Monocytes (%) (Auto) % (1.0-10.0) Eosinophils (%) (Auto) % (0.0-3.0) Basophils (%) (Auto) % (0.0-2.0) Differential Total Cells Counted 100 Neutrophils % (Manual) 80 % (45-75) H Lymphocytes % (Manual) 17 % (20-45) L Monocytes % (Manual) 3 % (1-10) Eosinophils % (Manual) 0 % (0-3) Basophils % (Manual) 0 % (0-2) Band Neutrophils 0 % (0-8) Platelet Estimate Decreased L Platelet Morphology Normal Anisocytosis 1+ Macrocytosis 1+ Sodium Level 163 MMOL/L (136-145) *H Potassium Level 3.4 MMOL/L (3.5-5.1) L Chloride Level 124 MMOL/L (98-107) H Carbon Dioxide Level 28 MMOL/L (21-32) Anion Gap 11 mmol/L (5-15) Blood Urea Nitrogen 35 mg/dL (7-18) H Creatinine 0.9 MG/DL (0.55-1.30) Estimat Glomerular Filtration Rate mL/min (>60) Glucose Level 429 MG/DL (74-106) #H Hemoglobin A1c 8.1 % (4.3-6.0) H Uric Acid 8.6 MG/DL (2.6-7.2) H Calcium Level 9.0 MG/DL (8.5-10.1) Phosphorus Level 2.4 MG/DL (2.5-4.9) L Magnesium Level 2.4 MG/DL (1.8-2.4) Iron Level 40 ug/dL (50-175) L Total Iron Binding Capacity 150 ug/dL (250-450) L Percent Iron Saturation 27 % (15-50) Unsaturated Iron Binding 110 ug/dL (112-346) L Ferritin 1962 NG/ML (8-388) H Total Bilirubin 0.6 MG/DL (0.2-1.0) Gamma Glutamyl Transpeptidase 3 U/L (5-85) L Aspartate Amino Transf (AST/SGOT) 18 U/L (15-37) Alanine Aminotransferase (ALT/SGPT) 12 U/L (12-78) Alkaline Phosphatase 79 U/L (46-116) Total Creatine Kinase 123 U/L (26-308) C-Reactive Protein, Quantitative > 70.0 mg/dL (0.00-0.90) H Pro-B-Type Natriuretic Peptide 626 pg/mL (0-125) H Total Protein 7.0 G/DL (6.4-8.2) Albumin 2.0 G/DL (3.4-5.0) L Globulin 5.0 g/dL Albumin/Globulin Ratio 0.4 (1.0-2.7) L Vitamin B12 Level 373 PG/ML (193-986) Folate 19.9 NG/ML (8.6-58.9) Thyroid Stimulating Hormone (TSH) 0.260 uiU/mL (0.358-3.740) Plan Problems: (1) Severe sepsis Assessment & Plan: IV fluids IV abx trend labs will follow with recs wounds stable and not etiology of sepsis (2) Sacral decubitus ulcer, stage IV Assessment & Plan: Pt presented on admission with Full thickness stage 4 sacral pressure injury, Bilat foot drop. Sacral pressure (L)3.5cm x (W)3.5cm x (D)0.4cm. Base of wound mixed slough/ necrosis. Borders are macerated. Periwound is maroon in colour with additional shearing . Pt moans when area surrounding wound minimally palpated. L lateral malleolus black without erythema ,induration or fluctuance(L)1cm x (W) 1cm. Non-blanching erythema without fluctuance bilat heels. Tx.plan: Cleanse wound with Saline. Apply Therahoney. Apply Moisture Barrier Paste periwound. Cover with Optifoam drsg. Change every 3 days and prn. Apply Cavilon to L lateral malleolus and both heels. Cover each heels and Malleoli with Optifoam drsg. Change every 7 days and prn. APM/LOU Mattress overlay. Reposition at least every 2hours or as tolerated. Off-load heels with pillow. (3) G tube feedings Assessment & Plan: DAILY ESTIMATED NEEDS: Needs based on Wound, DM, sepsis 56kg 25-30 kcals/kg 9201-2796 total kcals 1.25-2 g protein/kg 70-112 g total protein 25-30 mL/kg 4378-0285 total fluid mLs NUTRITION DIAGNOSIS: 1) Swallowing difficulty R/T dysphagia, CVA as evidenced by PEG dependent. 2) Increased kcal and pro needs r/t wound healing, increased metabolic rate as evidenced by admitted w/ sacral wound per photo, pending evaluation, sepsis dx w/ elev wbc, febrile, elev LA, elev BGs (414, 466). . CURRENT TF:NPO ENTERAL NUTRITION RECOMMENDATIONS: Glucerna 1.2 @ 55ml/hr x24 hrs to provide 1320ml, 1584kcal, 79g prot, 1063ml free water - As medically appropriate, initiate Glucerna 1.2 @ 35ml/hr - Advance TF 10ml q 4-6 hrs as tolerated to goal rate - HOB over 30 degrees/ water flush per MD ADDITIONAL RECOMMENDATIONS: 1) Calibrated bedscale wt for accurate CBW- w/ added P200 mattress + pump 2) Rec long acting insulin for improved BG control once TF initiates -> BGs in the 300's + 400's 3) Wound healing: add Vit C 500mg QD + Gonsalo 1pkt BID 4) Monitor lytes daily, replete as needed (4) Electrolyte imbalance (5) Ventilator dependence Akhil Jackson Nov 08, 2018 22:54
[2018-11-09] VITALS (19 sets, daily range): BP systolic 95–124; BP diastolic 39–55
--- NOTE | 2018-11-09 | NUR ---
NURSE NOTES: Vital signs are stable. No fever; temp is 98.9F. Patient remains obtunded and on BiPAP of 15/7 30% saturating at 100%. GT flushed with 100ml H2O. Will continue care.
[2018-11-09] MEDS: Polymyxin B Sulfate 500,000 UNITS in D5W 500ml 500 ML IVPB SCH ×2 (01:07→13:56)
--- NOTE | 2018-11-09 02:00 | NUR ---
NURSE NOTES: Vital signs are stable. Patient showing no distress. Bed bath provided, turned and repositioned, patient awoken, not making eye contact. Remains on BiPAP and saturating at 100%. Wound dressing are changed. IV lines updated. Will continue care.
[2018-11-09] MEDS: Albuterol/Ipratropium 3ml neb HHN SCH ×6 (03:23→23:21)
--- NOTE | 2018-11-09 04:12 | NUR ---
NURSE NOTES: Vital signs are stable. No fever noted; current temp 98.9F. Turned and repositioned. Remains on BiPAP 15/7 30% saturating 100%. Will continue care.
[2018-11-09 05:25] LABS: BASOPHILS % (AUTO) 0.1 % (0.0-2.0); EOSINOPHILS % (AUTO) 0.2 % (0.0-3.0); HEMATOCRIT 30.9 % (37.0-47.0); HEMOGLOBIN 9.7 G/DL (12.0-16.0); LYMPHOCYTES % (AUTO) 14.9 % (20.0-45.0); MEAN CORPUSCULAR VOLUME 98 FL (80-99); MONOCYTES % (AUTO) 0.8 % (1.0-10.0); PLATELET COUNT 101 K/UL (150-450); RED BLOOD COUNT 3.14 M/UL (4.20-5.40); RED CELL DISTRIBUTION WIDTH 13.6 % (11.6-14.8); WHITE BLOOD COUNT 11.9 K/UL (4.8-10.8)
[2018-11-09 05:28] LABS: ALANINE AMINOTRANSFERASE 11 U/L (12-78); ALBUMIN 1.7 G/DL (3.4-5.0); ALBUMIN/GLOBULIN RATIO 0.3 (1.0-2.7); ALKALINE PHOSPHATASE 87 U/L (46-116); ANION GAP 9 mmol/L (5-15); ASPARTATE AMINO TRANSFERASE 20 U/L (15-37); BILIRUBIN,TOTAL 0.9 MG/DL (0.2-1.0); BLOOD UREA NITROGEN 17 mg/dL (7-18); CALCIUM 8.3 MG/DL (8.5-10.1); CARBON DIOXIDE 28 MMOL/L (21-32); CHLORIDE 109 MMOL/L (98-107); CREATININE 0.8 MG/DL (0.55-1.30); POTASSIUM 2.8 MMOL/L (3.5-5.1); SODIUM 146 MMOL/L (136-145)
[2018-11-09 05:41] LABS: PHOSPHORUS 2.7 MG/DL (2.5-4.9)
[2018-11-09] MEDS: Heparin 5000 units/ml inj SUBQ SCH ×3 (05:49→22:00)
[2018-11-09] MEDS: NovoLOG Insulin Flexpen SUBQ SCH ×4 (05:49→21:16)
--- NOTE | 2018-11-09 06:00 | NUR ---
NURSE NOTES: Vital signs stable, no fever noted. Additional bath given, sacral dressing changed again. Patient turned and repositioned. Patient remains on BiPAP 15/7 30% and saturating 100%. Will continue care.
--- NOTE | 2018-11-09 06:16 | NUR ---
NURSE NOTES: Potassium resulted at 2.8 this AM. Left a message with Dr. Yates's exchange. His exchange informed that he will pass along the message to Dr. Helm. Awaiting reply.
[2018-11-09] MEDS ORDERED: Vancomycin 1.25gm/NS Premix IVPB ONE (07:00)
--- NOTE | 2018-11-09 07:10 | NUR ---
NURSE NOTES: Received pt from FELIX Lopez. Patient opens eyes but unable to track, aphasic. Lethargic. A/Ox0. Patient on BIPAP 15/7, Fio2 30%. Spo2 100%, RR 24. Course rhonchi heard bilateral b/s. Labored breathing noted. BP stable. SR. Ax temp 100.6. Mucousy brown BM. Abdomen is non-distended. PEG upper left quadrant. NPO. Incontinent and has a purwick. Sacral unstageable wound, dressing clean. p200 mattress. RFA 18G running IV ABX. IV R. foot 20G running D5W@100ml/hr. Bed locked, alarmed and in lowest position. Will continue plan of care.
--- NOTE | 2018-11-09 07:15 | NUR ---
HAND-OFF: Report given to Sarah Funes RN.
--- NOTE | 2018-11-09 07:17 | NUR ---
RESPIRATORY NOTE: removed pt off bipap to cont. breathing tx's. and will attempt to keep pt off bipap. pt in no resp distress at this time. current saturation 98-100%. no skin rounds visible around facial area, but visible redness on the nose. RN will be notified. will cont to monitor. Addendum: 11/09/18 at 0746 by LEA BREAUX RT placed pt on 40% VM
--- NOTE | 2018-11-09 08:00 | NUR ---
NURSE NOTES: Placed patient on venturi mask Fio2 40%, oxygen saturation at 98%. Turned and repositioned. oral care done.
[2018-11-09] MEDS ORDERED: Levemir Flexpen SUBQ ONE (08:15)
[2018-11-09] MEDS ORDERED: Levemir Flexpen SUBQ SCH ×2 (08:45→21:00)
[2018-11-09] MEDS ORDERED: Pantoprazole Inj IV SCH (09:00)
[2018-11-09] MEDS ORDERED: Ascorbic Acid 500mg tab ORAL SCH (09:00)
[2018-11-09] MEDS ORDERED: Tubing IV Secondary IV ONE (09:16)
[2018-11-09] MEDS ORDERED: NS 275ml ONE (09:16)
--- NOTE | 2018-11-09 10:01 | NUR ---
NURSE NOTES: Turned and repositioned. Kept dry and clean. Patient on venturi mask 45%.
--- NOTE | 2018-11-09 11:25 | NUR ---
NURSE NOTES: Received orders to transfer patient to SDU. Increase FIo2 to 45% and resume feedings.
--- NOTE | 2018-11-09 11:25 | General Progress Note ---
Assessment/Plan Problem List: (1) Respiratory failure with hypoxia and hypercapnia ICD Codes: J96.91 - Respiratory failure, unspecified with hypoxia; J96.92 - Respiratory failure, unspecified with hypercapnia SNOMED: 80845944 (2) Septic shock ICD Codes: A41.9 - Sepsis, unspecified organism; R65.21 - Severe sepsis with septic shock SNOMED: 05552248 (3) Toxic metabolic encephalopathy ICD Codes: G92 - Toxic encephalopathy SNOMED: 305657731 (4) PNA (pneumonia) ICD Codes: J18.9 - Pneumonia, unspecified organism SNOMED: 106710279 (5) KEL (acute kidney injury) ICD Codes: N17.9 - Acute kidney failure, unspecified SNOMED: 8267402, 21519491 (6) Hypernatremia ICD Codes: E87.0 - Hyperosmolality and hypernatremia SNOMED: 63030026 (7) Elevated troponin ICD Codes: R74.8 - Abnormal levels of other serum enzymes SNOMED: 831535354, 604200492 (8) UTI (urinary tract infection) ICD Codes: N39.0 - Urinary tract infection, site not specified SNOMED: 36681107 (9) Dehydration ICD Codes: E86.0 - Dehydration SNOMED: 22353904 (10) Sacral decubitus ulcer, stage IV ICD Codes: L89.154 - Pressure ulcer of sacral region, stage 4 SNOMED: 385731459, 834225849 Status: deteriorating, other - shock Assessment/Plan: 77 year old female who was undergoing antibiotic therapy for PNA with meropenem at [facility] sent in to the hospital with fever and desaturation. Found to have leukocytosis, fevers, Lactate 4.2. Admitted for septic shock due to pneumonia vs. UTI, acute metabolic encephalopathy, acute hypoxic hypercapnic respiratory failure, severe dehydration, hypernatremia and KEL. Upgraded to ICU due to worsening respiratory failure, Placed on bipap. 1. Resolving septic shock due to ?PNA (CXR bilateral pleural effusion, pulmonary vascular congestion, ? consolidation), ?UTI. Fungemia risk. doubt infected sacral decubitus. -Meropenem, Vancomycin, and fluconazole and polymyxin per ID -ID consult. Dr. Solis -Blood cultures negative. Urine growing yeast -IVF with D5W , have to be judicious due to history of chf, she is maintaining bp. Hold all bp meds for now -Lactate trended down to 1. -wbc trending down -Transfer to step down unit 2. Acute hypoxic hypercarbic respiratory failure. -Upgraded to ICU. Placed on Bi-Level. ABG reviewed, changes have been made. current setting 15/7/0.5, prn. Will transfer to stepdown 3.Toxic metabolic encephalopathy. Treat sepsis and respiratory failure 4.Severe dehydration and hypernatremia. Continue D5W and Free water via PEG . Monitor serum sodium Q12hr. Avoid correcting too quickly. Improving dramatically 5. History of CVA: Hold PO meds via peg now, once no longer NPO resume Lipitor via peg. Hold antihypertensives now 6. Sacral decub. Dr. Jackson, wound care consult 7. DM II with hyperglycemia. Levemir, insulin aspart sliding scale. 8. KEL. pre-renal due to severe dehydration. Continue IVF. avoid nephrotoxic medications. creatinine better today Nephrology consult: Dr. Vernon. d/w him. KEL has resolved 9. Troponin elevation. No acute ekg changes, demand ischemia. 10. Thrombocytopenia. Due to sepsis. Continue to hold heparin. Monitor platelet count. 11. Moderate protein calorie malnutrition. Resume feeds via PEG. Aspiration precautions. High aspiration risk vte ppx: heparin subq- hold for nose bleed GI ppx: IV pantoprazole Diet: resume peg feeds, free water via peg Code status: DNR/DNI, prognosis guarded d/w rn, d/w Dr. Vernon and Dr. Milner Critical care time spent 40 minutes including time spent at bedside, coordinating care, ordering bipap, imagining and abg. Family meeting held today with Lluvia Saunders from [employer] and patient's brother Ryan Archibald. Patient's son Osei out of town on the job and will return next week. Plan of care and code status addressed. Update dthe family regarding change in patient's condition. Answered questions. POLST completed by brother indicating DNR/DNI, selective treatment and tank terminal gauger artificial nutrition. Bipap addressed with short term use. Emotional support provided. Time spent 30 minutes. Subjective Date patient seen: Nov 09, 2018 ROS Limited/Unobtainable: Yes Allergies: Coded Allergies: No Known Allergies (Unverified , 12/23/17) Subjective baseline unable to communicate due to previous CVA, now still remains unresponsive even to painful stimuli Remains in ICU overnight for hypoxic respiratory failure on 100% nrb t max 101.6 wbc trending down sodium trending down Objective Last 24 Hour Vital Signs Date Time Temp Pulse Resp B/P (MAP) Pulse Ox O2 Delivery O2 Flow Rate FiO2 11/09/18 08:53 99.8 11/09/18 08:00 Bi-pap 11/09/18 07:14 79 20 99 Bi-Pap 30 78 19 98 11/09/18 07:00 78 21 104/45 (64) 98 11/09/18 06:00 60 20 112/42 (65) 98 11/09/18 05:00 80 18 117/47 (70) 98 11/09/18 04:41 77 20 98 Full Face 30 11/09/18 04:00 30 11/09/18 04:00 Bi-pap 11/09/18 04:00 98.9 80 19 112/42 (65) 97 11/09/18 03:22 73 18 97 Facial 30 70 18 100 Bi-Pap 30 11/09/18 03:03 71 11/09/18 03:00 76 18 119/48 (71) 97 11/09/18 02:00 73 18 104/44 (64) 98 11/09/18 01:48 76 20 100 Facial 30 11/09/18 01:00 81 20 116/44 (68) 97 11/09/18 00:00 Bi-pap 11/09/18 00:00 98.9 84 18 124/50 (74) 98 11/08/18 23:36 83 20 97 Facial 30 80 18 99 Bi-Pap 30 11/08/18 23:31 84 11/08/18 23:00 84 19 126/52 (76) 99 11/08/18 22:00 85 22 134/50 (78) 98 11/08/18 21:29 87 18 99 Facial 30 11/08/18 21:00 85 19 126/63 (84) 97 11/08/18 20:00 Bi-pap 11/08/18 20:00 79 18 129/58 (81) 98 11/08/18 20:00 30 11/08/18 19:18 71 20 95 Facial 30 71 18 98 Bi-Pap 30 11/08/18 19:14 72 11/08/18 19:00 97.5 74 17 110/46 (67) 99 11/08/18 18:00 75 21 119/48 (71) 97 11/08/18 17:00 99.8 75 20 94/41 (58) 98 11/08/18 16:34 99.8 11/08/18 16:21 91 19 93 Facial 30 11/08/18 16:00 50 11/08/18 16:00 Bi-pap 11/08/18 16:00 101.6 87 20 127/61 (83) 92 11/08/18 16:00 95 11/08/18 15:00 87 23 118/53 (74) 97 11/08/18 14:54 86 23 97 Bi-Pap 30 83 22 97 11/08/18 14:43 93 19 97 Facial 30 11/08/18 14:00 83 21 124/56 (78) 93 11/08/18 13:00 82 18 130/55 (80) 97 11/08/18 12:30 82 20 99 Facial 30 11/08/18 12:00 85 11/08/18 12:00 98.6 85 19 132/59 (83) 95 11/08/18 12:00 50 11/08/18 12:00 Bi-pap Intake and Output 11/08/18 11/09/18 18:59 06:59 Intake Total 700 ml 2100 ml Output Total 1150 ml 648 ml Balance -450 ml 1452 ml Free Water 200 ml 200 ml IV Total 300 ml 1700 ml Other 200 ml 200 ml Output Urine Total 1150 ml 648 ml # Bowel Movements 4 4 Laboratory Tests 11/09/18 04:56: White Blood Count 11.9H, Red Blood Count 3.14L, Hemoglobin 9.7L, Hematocrit 30.9L, Mean Corpuscular Volume 98, Mean Corpuscular Hemoglobin 31.0, Mean Corpuscular Hemoglobin Concent 31.5L, Red Cell Distribution Width 13.6, Platelet Count 101L, Mean Platelet Volume 9.6, Neutrophils (%) (Auto) 84.0H, Lymphocytes (%) (Auto) 14.9L, Monocytes (%) (Auto) 0.8L, Eosinophils (%) (Auto) 0.2, Basophils (%) (Auto) 0.1, Sodium Level 146H, Potassium Level 2.8L, Chloride Level 109H, Carbon Dioxide Level 28, Anion Gap 9, Blood Urea Nitrogen 17, Creatinine 0.8, Estimat Glomerular Filtration Rate , Glucose Level 310#H, Calcium Level 8.3L, Phosphorus Level 2.7, Magnesium Level 1.6L, Total Bilirubin 0.9, Aspartate Amino Transf (AST/SGOT) 20, Alanine Aminotransferase (ALT/SGPT) 11L, Alkaline Phosphatase 87, C-Reactive Protein, Quantitative 28.4H, Pro-B- Type Natriuretic Peptide 1256H, Total Protein 6.6, Albumin 1.7L, Globulin 4.9, Albumin/Globulin Ratio 0.3L, Random Vancomycin Level 8.2 11/09/18 08:50: Arterial Blood pH 7.485H, Arterial Blood Partial Pressure CO2 35.8, Arterial Blood Partial Pressure O2 68.8L, Arterial Blood HCO3 26.4H, Arterial Blood Oxygen Saturation 93.8L, Arterial Blood Base Excess 2.9H, Ray Test Positive Height (Feet): 5 Height (Inches): 3.00 Weight (Pounds): 125 Objective General Appearance: Chronically Ill, unresponsive to all stimuli, on venturi mask Head: normocephalic ENT: dry mucus membranes Neck: limited range of motion, supple, no JVD Respiratory: + crackles bilaterally at the base Cardiovascular: RRR, S1S2, no m/r/g, no edema Gastrointestinal: non tender, soft, no mass, other - gtube stoma CDI Musculoskeletal: decreased range of motion Neurologic: unresponsive to al stimuli, aphasic, +hemiplegia Skin: Stage 4 sacral decub ulcer, clean, no discharge or odor Abdullahi Muhammad M.D. Nov 09, 2018 11:24
--- NOTE | 2018-11-09 11:36 | NUR ---
Social Service Note Family meeting held today with Dr. Muhammad and patient's brother Ryan Archibald. Plan of care and code status addressed. POLST completed by brother indicating DNR/DNI, selective treatment and ocean transportation intermediary artificial nutrition. Bipap addressed with short term use. Brother states patient's son is out of town and will return early next week. Once son returns continued use of Bipap will be readdressed. Emotional support provided. Will continue to monitor and assist.
--- NOTE | 2018-11-09 11:38 | NUR ---
RD ASSESSMENT & RECOMMENDATIONS SEE CARE ACTIVITY FOR COMPLETE ASSESSMENT DAILY ESTIMATED NEEDS: Needs based on Wound, DM, sepsis 56kg 25-30 kcals/kg 4435-4779 total kcals 1.25-2 g protein/kg 70-112 g total protein 25-30 mL/kg 5982-5341 total fluid mLs NUTRITION DIAGNOSIS: 1) Swallowing difficulty R/T dysphagia, CVA as evidenced by PEG dependent. 2) Increased kcal and pro needs r/t wound healing, increased metabolic rate as evidenced by admitted w/ stage 4 sacral wound, sepsis dx w/ elev wbc, febrile, elev LA, elev BGs (414, 466-> now in 300's). ENTERAL NUTRITION RECOMMENDATIONS: Glucerna 1.2 @ 55ml/hr x24 hrs to provide 1320ml, 1584kcal, 79g prot, 1063ml free water - As medically appropriate, initiate Glucerna 1.2 @ 35ml/hr - Advance TF 10ml q 4-6 hrs as tolerated to goal rate - HOB over 30 degrees/ water flush per MD ADDITIONAL RECOMMENDATIONS: 1) Calibrated bedscale wt for accurate CBW- w/ added P200 mattress + pump 2) Rec long acting insulin for improved BG control once TF initiates -> BGs in the 300's + 400's 3) Wound healing: add Vit C 500mg QD + Gonsalo 1pkt BID + ZnSO4 220 mg daily x10 days 4) Monitor lytes daily, replete as needed .
--- NOTE | 2018-11-09 13:27 | NUR ---
NURSE NOTES: Afberile. No signs of distress noted. VSS. IV kcl and mag running well.
--- NOTE | 2018-11-09 13:50 | NUR ---
CASE MANAGEMENT: REVIEW 11/09/18 SI:SEPTIC SHOCK, SEPSIS, PNA 98.8 78 20 98/99 98% BiPAP K+ 2.8; WBC 11.9; RBC 3.14; NA+ 146; BG 310; BNP 1256; CA+ 8.3;M MG 1.6 ABG: pH 7.485; pO2 68.8, HCO3 26.4; O2 SAT 93.8 IS: IV VANCOMYCIN Q24 IV POLYMYXIN B Q12 IV FLUCONAZOLE Q24 IV PROTONIX QD IVF @100/HR IV MEROPENEM Q12 IV HEPARIN Q8HR LEVEMIR QD HS NOVOLOG SQ AC&HS ALBUTEROL HHN Q4/PRN ATROVENT HHN : TO ICU DCP: TO RETURN TO [facility] PLAN: SS CONSULT
--- NOTE | 2018-11-09 14:26 | Pulmonolgy Critical Care Note ---
Critical Care - Asmt/Plan Problems: (1) Severe sepsis (2) Septic shock (3) SOB (shortness of breath) (4) Respiratory failure with hypoxia and hypercapnia (5) Sacral decubitus ulcer, stage IV (6) Renal insufficiency (7) G tube feedings (8) Electrolyte imbalance (9) Altered mental status (10) H/O: CVA (cerebrovascular accident) (11) Pneumonia (12) KEL (acute kidney injury) (13) Hypernatremia (14) DM (diabetes mellitus) (15) Toxic metabolic encephalopathy (16) Dehydration Assessment/Plan: Respiratory: monitor respiratory rate, HHN's, change BiPAP to PRN, mobilize, DNAR now Cardiac: continue to monitor HR/BP Renal: keep IV fluid per renal, check electrolytes Infectious Disease: F/U cultures, continue antibiotics - per ID Gastrointestinal: Cautious TF's when off BiPAP Endocrine: monitor blood sugar, continue sliding scale insulin Hematologic: monitor H/H Neurologic: keep patient comfortable Prophylaxis: Protonix, Heparin - SQ Disposition: Transfer to [facility] Time Spent (Minutes): 30 Notes Reviewed: sorter lumber straightener, renal, ID Discussed with: nurses, consultants DNAR Critical Care - Objective Last 24 Hour Vital Signs Date Time Temp Pulse Resp B/P (MAP) Pulse Ox O2 Delivery O2 Flow Rate FiO2 11/09/18 11:25 78 20 99 Venturi Mask 10.0 45 74 21 100 11/09/18 08:53 99.8 11/09/18 08:00 Bi-pap 11/09/18 07:14 79 20 99 Bi-Pap 30 78 19 98 11/09/18 07:00 78 21 104/45 (64) 98 11/09/18 06:00 60 20 112/42 (65) 98 11/09/18 05:00 80 18 117/47 (70) 98 11/09/18 04:41 77 20 98 Full Face 30 11/09/18 04:00 30 11/09/18 04:00 Bi-pap 11/09/18 04:00 98.9 80 19 112/42 (65) 97 11/09/18 03:22 73 18 97 Facial 30 70 18 100 Bi-Pap 30 11/09/18 03:03 71 11/09/18 03:00 76 18 119/48 (71) 97 11/09/18 02:00 73 18 104/44 (64) 98 11/09/18 01:48 76 20 100 Facial 30 11/09/18 01:00 81 20 116/44 (68) 97 11/09/18 00:00 Bi-pap 11/09/18 00:00 98.9 84 18 124/50 (74) 98 11/08/18 23:36 83 20 97 Facial 30 80 18 99 Bi-Pap 30 11/08/18 23:31 84 11/08/18 23:00 84 19 126/52 (76) 99 11/08/18 22:00 85 22 134/50 (78) 98 11/08/18 21:29 87 18 99 Facial 30 11/08/18 21:00 85 19 126/63 (84) 97 11/08/18 20:00 Bi-pap 11/08/18 20:00 79 18 129/58 (81) 98 11/08/18 20:00 30 11/08/18 19:18 71 20 95 Facial 30 71 18 98 Bi-Pap 30 11/08/18 19:14 72 11/08/18 19:00 97.5 74 17 110/46 (67) 99 11/08/18 18:00 75 21 119/48 (71) 97 11/08/18 17:00 99.8 75 20 94/41 (58) 98 11/08/18 16:34 99.8 11/08/18 16:21 91 19 93 Facial 30 11/08/18 16:00 50 11/08/18 16:00 Bi-pap 11/08/18 16:00 101.6 87 20 127/61 (83) 92 11/08/18 16:00 95 11/08/18 15:00 87 23 118/53 (74) 97 11/08/18 14:54 86 23 97 Bi-Pap 30 83 22 97 11/08/18 14:43 93 19 97 Facial 30 Status: somnolent Condition: improving HEENT: atraumatic, normocephalic Lungs: rhonchi Heart: HR/BP stable Abdomen: soft, non-tender, active bowel sounds, feeding tube Extremities: no C/C/E Micro: Microbiology Date/Time Source Procedure Growth Status 11/08/18 10:00 Sputum Induced Gram Stain - Final Resulted 11/08/18 10:00 Sputum Induced Sputum Culture Pending Resulted 11/08/18 19:29 Stool Clostridium difficile Toxin Assay - Final Complete Accucheck: 297 Blood Sugars: BS not controlled Critical Care - Subjective ROS Limited/Unobtainable: Yes ICU Day: 2 Intubation Day: N/A Interval Events: Off BiPAP on FM WCt better, Na better BCx's NG No cough no SOB or distress DNAR now Condition: improving IV Access: peripheral EKG Rhythm: Sinus Rhythm FI02: 30 Vent Support Mode: BiLevel Sputum Amount: None Secretions: None Fluids: D5W I&O: Intake and Output 11/08/18 11/09/18 19:00 07:00 Intake Total 700 ml 2173.33 ml Output Total 1150 ml 698 ml Balance -450 ml 1475.33 ml Free Water 200 ml 200 ml IV Total 300 ml 1773.33 ml Other 200 ml 200 ml Output Urine Total 1150 ml 698 ml # Bowel Movements 4 4 Subjective: ARLETTE Labs: Laboratory Tests Test 11/09/18 04:56 11/09/18 08:50 White Blood Count 11.9 K/UL (4.8-10.8) H Red Blood Count 3.14 M/UL (4.20-5.40) L Hemoglobin 9.7 G/DL (12.0-16.0) L Hematocrit 30.9 % (37.0-47.0) L Mean Corpuscular Volume 98 FL (80-99) Mean Corpuscular Hemoglobin 31.0 PG (27.0-31.0) Mean Corpuscular Hemoglobin Concent 31.5 G/DL (32.0-36.0) L Red Cell Distribution Width 13.6 % (11.6-14.8) Platelet Count 101 K/UL (150-450) L Mean Platelet Volume 9.6 FL (6.5-10.1) Neutrophils (%) (Auto) 84.0 % (45.0-75.0) H Lymphocytes (%) (Auto) 14.9 % (20.0-45.0) L Monocytes (%) (Auto) 0.8 % (1.0-10.0) L Eosinophils (%) (Auto) 0.2 % (0.0-3.0) Basophils (%) (Auto) 0.1 % (0.0-2.0) Sodium Level 146 MMOL/L (136-145) H Potassium Level 2.8 MMOL/L (3.5-5.1) L Chloride Level 109 MMOL/L (98-107) H Carbon Dioxide Level 28 MMOL/L (21-32) Anion Gap 9 mmol/L (5-15) Blood Urea Nitrogen 17 mg/dL (7-18) Creatinine 0.8 MG/DL (0.55-1.30) Estimat Glomerular Filtration Rate mL/min (>60) Glucose Level 310 MG/DL (74-106) #H Calcium Level 8.3 MG/DL (8.5-10.1) L Phosphorus Level 2.7 MG/DL (2.5-4.9) Magnesium Level 1.6 MG/DL (1.8-2.4) L Total Bilirubin 0.9 MG/DL (0.2-1.0) Aspartate Amino Transf (AST/SGOT) 20 U/L (15-37) Alanine Aminotransferase (ALT/SGPT) 11 U/L (12-78) L Alkaline Phosphatase 87 U/L (46-116) C-Reactive Protein, Quantitative 28.4 mg/dL (0.00-0.90) H Pro-B-Type Natriuretic Peptide 1256 pg/mL (0-125) H Total Protein 6.6 G/DL (6.4-8.2) Albumin 1.7 G/DL (3.4-5.0) L Globulin 4.9 g/dL Albumin/Globulin Ratio 0.3 (1.0-2.7) L Random Vancomycin Level 8.2 ug/mL Arterial Blood pH 7.485 (7.350-7.450) Arterial Blood Partial Pressure CO2 35.8 mmHg (35.0-45.0) Arterial Blood Partial Pressure O2 68.8 mmHg (75.0-100.0) L Arterial Blood HCO3 26.4 mmol/L (22.0-26.0) H Arterial Blood Oxygen Saturation 93.8 % (95-100) L Arterial Blood Base Excess 2.9 (-2-2) H Ray Test Positive Bimal Milner MD Nov 09, 2018 14:26
--- NOTE | 2018-11-09 14:29 | Nephrology Progress Note ---
Assessment/Plan Problem List: (1) KEL (acute kidney injury) (2) Hypokalemia (3) Severe sepsis (4) Hypernatremia (5) Hypercalcemia (6) DM (diabetes mellitus) Assessment Sepsis Acute renal failure HyperNatremia Dehydration G Tube Low k DM OOC CVA [place] Previous admission was intubated on vent, but extubated Plan antibiotics Levemir and SS insulin D5W + Free water via GT IV KCl and phos and mag as needed monitor renal parameters and lytes Pulm support correct lytes BS and BP check and monitor per consultants Subjective ROS Limited/Unobtainable: Yes Objective Objective Last 24 Hour Vital Signs Date Time Temp Pulse Resp B/P (MAP) Pulse Ox O2 Delivery O2 Flow Rate FiO2 11/09/18 11:25 78 20 99 Venturi Mask 10.0 45 74 21 100 11/09/18 08:53 99.8 11/09/18 08:00 Bi-pap 11/09/18 07:14 79 20 99 Bi-Pap 30 78 19 98 11/09/18 07:00 78 21 104/45 (64) 98 11/09/18 06:00 60 20 112/42 (65) 98 11/09/18 05:00 80 18 117/47 (70) 98 11/09/18 04:41 77 20 98 Full Face 30 11/09/18 04:00 30 11/09/18 04:00 Bi-pap 11/09/18 04:00 98.9 80 19 112/42 (65) 97 11/09/18 03:22 73 18 97 Facial 30 70 18 100 Bi-Pap 30 11/09/18 03:03 71 11/09/18 03:00 76 18 119/48 (71) 97 11/09/18 02:00 73 18 104/44 (64) 98 11/09/18 01:48 76 20 100 Facial 30 11/09/18 01:00 81 20 116/44 (68) 97 11/09/18 00:00 Bi-pap 11/09/18 00:00 98.9 84 18 124/50 (74) 98 11/08/18 23:36 83 20 97 Facial 30 80 18 99 Bi-Pap 30 11/08/18 23:31 84 11/08/18 23:00 84 19 126/52 (76) 99 11/08/18 22:00 85 22 134/50 (78) 98 11/08/18 21:29 87 18 99 Facial 30 11/08/18 21:00 85 19 126/63 (84) 97 11/08/18 20:00 Bi-pap 11/08/18 20:00 79 18 129/58 (81) 98 11/08/18 20:00 30 11/08/18 19:18 71 20 95 Facial 30 71 18 98 Bi-Pap 30 11/08/18 19:14 72 11/08/18 19:00 97.5 74 17 110/46 (67) 99 11/08/18 18:00 75 21 119/48 (71) 97 11/08/18 17:00 99.8 75 20 94/41 (58) 98 11/08/18 16:34 99.8 11/08/18 16:21 91 19 93 Facial 30 11/08/18 16:00 50 11/08/18 16:00 Bi-pap 11/08/18 16:00 101.6 87 20 127/61 (83) 92 11/08/18 16:00 95 11/08/18 15:00 87 23 118/53 (74) 97 11/08/18 14:54 86 23 97 Bi-Pap 30 83 22 97 11/08/18 14:43 93 19 97 Facial 30 Intake and Output 11/08/18 11/09/18 19:00 07:00 Intake Total 700 ml 2173.33 ml Output Total 1150 ml 698 ml Balance -450 ml 1475.33 ml Free Water 200 ml 200 ml IV Total 300 ml 1773.33 ml Other 200 ml 200 ml Output Urine Total 1150 ml 698 ml # Bowel Movements 4 4 Laboratory Tests 11/09/18 04:56: White Blood Count 11.9H, Red Blood Count 3.14L, Hemoglobin 9.7L, Hematocrit 30.9L, Mean Corpuscular Volume 98, Mean Corpuscular Hemoglobin 31.0, Mean Corpuscular Hemoglobin Concent 31.5L, Red Cell Distribution Width 13.6, Platelet Count 101L, Mean Platelet Volume 9.6, Neutrophils (%) (Auto) 84.0H, Lymphocytes (%) (Auto) 14.9L, Monocytes (%) (Auto) 0.8L, Eosinophils (%) (Auto) 0.2, Basophils (%) (Auto) 0.1, Sodium Level 146H, Potassium Level 2.8L, Chloride Level 109H, Carbon Dioxide Level 28, Anion Gap 9, Blood Urea Nitrogen 17, Creatinine 0.8, Estimat Glomerular Filtration Rate , Glucose Level 310#H, Calcium Level 8.3L, Phosphorus Level 2.7, Magnesium Level 1.6L, Total Bilirubin 0.9, Aspartate Amino Transf (AST/SGOT) 20, Alanine Aminotransferase (ALT/SGPT) 11L, Alkaline Phosphatase 87, C-Reactive Protein, Quantitative 28.4H, Pro-B- Type Natriuretic Peptide 1256H, Total Protein 6.6, Albumin 1.7L, Globulin 4.9, Albumin/Globulin Ratio 0.3L, Random Vancomycin Level 8.2 11/09/18 08:50: Arterial Blood pH 7.485H, Arterial Blood Partial Pressure CO2 35.8, Arterial Blood Partial Pressure O2 68.8L, Arterial Blood HCO3 26.4H, Arterial Blood Oxygen Saturation 93.8L, Arterial Blood Base Excess 2.9H, Ray Test Positive Height (Feet): 5 Height (Inches): 3.00 Weight (Pounds): 125 General Appearance: no apparent distress, lethargic Cardiovascular: normal rate Respiratory/Chest: decreased breath sounds Abdomen: soft Objective no change Dwayne Vernon MD Nov 09, 2018 14:29
--- NOTE | 2018-11-09 14:35 | NUR ---
NURSE NOTES: Received report from Sarah Luu RN. Patient in bed, non verbal. opens eyes spontaneous. pupils sluggish at 3mm. SR noted on cereal supervisor. Bilateral peripheral radial and pedal pulses weak. cap refill<3 sec. lung sounds diminished throughout. mild respiratory distress noted. HOB increase to 40 degrees. no secretions, haas. pt on venturi mask 45%. skin pale. extremities cold to touch. Abdomen flat, non tender. no bm at this time. pt GT connected to Glucerna 1.5 at 10ml/hr. no residuals. pure wick, incontinent, bladder flat. iv access Right Foot 20G and left wrist 20g, running D5W@50ml/hr. skin- see assessment . photos taken. Optifoam placed at sacral area and bilateral heels. Bed in lowest position, locked, side rails upx3. contact precautions in place. Bed alarm on. Call light within reach. Will continue to monitor.
[2018-11-09] MEDS ORDERED: Albuterol/Ipratropium 3ml neb HHN PRN (15:00)
--- NOTE | 2018-11-09 15:00 | NUR ---
TRANSFER TO FLOOR: Patient transferred to [facility], per Dr. Muhammad. Report given to FELIX Chatman. Patient has no belongings. Family and or S/O informed otransfer.
--- NOTE | 2018-11-09 15:15 | NUR ---
NURSE NOTES: entered pt room, noticed agonal breathing with venturi mask 45%, 02sat 66. placed pt on bipap 27/08, [id number] called md Sabina Guardado and family to inform of status.
--- NOTE | 2018-11-09 15:30 | NUR ---
RESPIRATORY NOTE: Got a call from RN state pt desat down to 66% on 10L 45%FiO2 venturi mask. Increased FiO2 to 55%, saturation still not change, changed to non rebreather mask 15L 100%FiO2, saturates at 77%. Pt has agonal breathing, in distress. Placed pt on Bipap 15/, BUR 18, 100%FiO2, saturation went up to 91%, tachycardia HR 110bpm, tachypneic RR 31bpm but seem stable than earlier. FELIX Chatman at bedside and aware. Will continue to monitor pt closely.
--- NOTE | 2018-11-09 15:32 | NUR ---
NURSE NOTES: pt agonal breathing decreased with bipap on. HR 110, RR 31, sating 91%. will continue to monitor pt closely.
--- NOTE | 2018-11-09 16:30 | NUR ---
NURSE NOTES: BG 323, 10 units Novolog given SC.
--- NOTE | 2018-11-09 16:51 | Surgery Progress Note ---
Surgery Progress Note Subjective Additional Comments stable comfortable downgraded labd noted Objective Last 24 Hour Vital Signs Date Time Temp Pulse Resp B/P (MAP) Pulse Ox O2 Delivery O2 Flow Rate FiO2 11/09/18 16:00 111 11/09/18 16:00 97.7 90 18 99/55 (70) 100 11/09/18 16:00 100 11/09/18 15:32 100 11/09/18 15:05 94 21 98 Venturi Mask 10.0 45 90 21 96 11/09/18 14:00 98.9 77 19 104/45 (64) 98 11/09/18 13:00 79 18 112/54 (73) 98 11/09/18 12:16 75 18 108/52 (70) 99 11/09/18 12:00 45 11/09/18 12:00 99.4 75 16 95/46 (62) 99 11/09/18 12:00 76 11/09/18 12:00 Venturi Mask 9.0 11/09/18 11:25 78 20 99 Venturi Mask 10.0 45 74 21 100 11/09/18 11:00 73 21 106/46 (66) 100 11/09/18 10:54 72 35 109/45 (66) 100 11/09/18 10:00 72 22 96/39 (58) 99 11/09/18 09:00 85 21 100/39 (59) 97 11/09/18 08:53 99.8 11/09/18 08:00 Bi-pap 11/09/18 08:00 100.7 94 21 123/43 (69) 98 11/09/18 08:00 40 11/09/18 08:00 75 11/09/18 07:14 79 20 99 Bi-Pap 30 78 19 98 11/09/18 07:00 78 21 104/45 (64) 98 11/09/18 06:00 60 20 112/42 (65) 98 11/09/18 05:00 80 18 117/47 (70) 98 11/09/18 04:41 77 20 98 Full Face 30 11/09/18 04:00 30 11/09/18 04:00 Bi-pap 11/09/18 04:00 98.9 80 19 112/42 (65) 97 11/09/18 03:22 73 18 97 Facial 30 70 18 100 Bi-Pap 30 11/09/18 03:03 71 11/09/18 03:00 76 18 119/48 (71) 97 11/09/18 02:00 73 18 104/44 (64) 98 11/09/18 01:48 76 20 100 Facial 30 11/09/18 01:00 81 20 116/44 (68) 97 11/09/18 00:00 Bi-pap 11/09/18 00:00 98.9 84 18 124/50 (74) 98 11/08/18 23:36 83 20 97 Facial 30 80 18 99 Bi-Pap 30 11/08/18 23:31 84 11/08/18 23:00 84 19 126/52 (76) 99 11/08/18 22:00 85 22 134/50 (78) 98 11/08/18 21:29 87 18 99 Facial 30 11/08/18 21:00 85 19 126/63 (84) 97 11/08/18 20:00 Bi-pap 11/08/18 20:00 79 18 129/58 (81) 98 11/08/18 20:00 30 11/08/18 19:18 71 20 95 Facial 30 71 18 98 Bi-Pap 30 11/08/18 19:14 72 11/08/18 19:00 97.5 74 17 110/46 (67) 99 11/08/18 18:00 75 21 119/48 (71) 97 11/08/18 17:00 99.8 75 20 94/41 (58) 98 I&O Intake and Output 11/08/18 11/09/18 19:00 07:00 Intake Total 700 ml 2173.33 ml Output Total 1150 ml 698 ml Balance -450 ml 1475.33 ml Free Water 200 ml 200 ml IV Total 300 ml 1773.33 ml Other 200 ml 200 ml Output Urine Total 1150 ml 698 ml # Bowel Movements 4 4 Dressing: saturated Wound: clean Cardiovascular: RSR Respiratory: clear Abdomen: soft, flat, non-tender, present bowel sounds Extremities: no cyanosis Laboratory Tests Test 11/09/18 04:56 11/09/18 08:50 White Blood Count 11.9 K/UL (4.8-10.8) H Red Blood Count 3.14 M/UL (4.20-5.40) L Hemoglobin 9.7 G/DL (12.0-16.0) L Hematocrit 30.9 % (37.0-47.0) L Mean Corpuscular Volume 98 FL (80-99) Mean Corpuscular Hemoglobin 31.0 PG (27.0-31.0) Mean Corpuscular Hemoglobin Concent 31.5 G/DL (32.0-36.0) L Red Cell Distribution Width 13.6 % (11.6-14.8) Platelet Count 101 K/UL (150-450) L Mean Platelet Volume 9.6 FL (6.5-10.1) Neutrophils (%) (Auto) 84.0 % (45.0-75.0) H Lymphocytes (%) (Auto) 14.9 % (20.0-45.0) L Monocytes (%) (Auto) 0.8 % (1.0-10.0) L Eosinophils (%) (Auto) 0.2 % (0.0-3.0) Basophils (%) (Auto) 0.1 % (0.0-2.0) Sodium Level 146 MMOL/L (136-145) H Potassium Level 2.8 MMOL/L (3.5-5.1) L Chloride Level 109 MMOL/L (98-107) H Carbon Dioxide Level 28 MMOL/L (21-32) Anion Gap 9 mmol/L (5-15) Blood Urea Nitrogen 17 mg/dL (7-18) Creatinine 0.8 MG/DL (0.55-1.30) Estimat Glomerular Filtration Rate mL/min (>60) Glucose Level 310 MG/DL (74-106) #H Calcium Level 8.3 MG/DL (8.5-10.1) L Phosphorus Level 2.7 MG/DL (2.5-4.9) Magnesium Level 1.6 MG/DL (1.8-2.4) L Total Bilirubin 0.9 MG/DL (0.2-1.0) Aspartate Amino Transf (AST/SGOT) 20 U/L (15-37) Alanine Aminotransferase (ALT/SGPT) 11 U/L (12-78) L Alkaline Phosphatase 87 U/L (46-116) C-Reactive Protein, Quantitative 28.4 mg/dL (0.00-0.90) H Pro-B-Type Natriuretic Peptide 1256 pg/mL (0-125) H Total Protein 6.6 G/DL (6.4-8.2) Albumin 1.7 G/DL (3.4-5.0) L Globulin 4.9 g/dL Albumin/Globulin Ratio 0.3 (1.0-2.7) L Random Vancomycin Level 8.2 ug/mL Arterial Blood pH 7.485 (7.350-7.450) Arterial Blood Partial Pressure CO2 35.8 mmHg (35.0-45.0) Arterial Blood Partial Pressure O2 68.8 mmHg (75.0-100.0) L Arterial Blood HCO3 26.4 mmol/L (22.0-26.0) H Arterial Blood Oxygen Saturation 93.8 % (95-100) L Arterial Blood Base Excess 2.9 (-2-2) H Ray Test Positive Plan Problems: (1) Severe sepsis Assessment & Plan: IV fluids IV abx trend labs will follow with recs wounds stable and not etiology of sepsis (2) Sacral decubitus ulcer, stage IV Assessment & Plan: Pt presented on admission with Full thickness stage 4 sacral pressure injury, Bilat foot drop. Sacral pressure (L)3.5cm x (W)3.5cm x (D)0.4cm. Base of wound mixed slough/ necrosis. Borders are macerated. Periwound is maroon in colour with additional shearing . Pt moans when area surrounding wound minimally palpated. L lateral malleolus black without erythema ,induration or fluctuance(L)1cm x (W) 1cm. Non-blanching erythema without fluctuance bilat heels. Tx.plan: Cleanse wound with Saline. Apply Therahoney. Apply Moisture Barrier Paste periwound. Cover with Optifoam drsg. Change every 3 days and prn. Apply Cavilon to L lateral malleolus and both heels. Cover each heels and Malleoli with Optifoam drsg. Change every 7 days and prn. APM/LOU Mattress overlay. Reposition at least every 2hours or as tolerated. Off-load heels with pillow. 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 2) Increased kcal and pro needs r/t wound healing, increased metabolic rate as evidenced by admitted w/ sacral wound per photo, pending evaluation, sepsis dx w/ elev wbc, febrile, elev LA, elev BGs (414, 466). . CURRENT TF:NPO ENTERAL NUTRITION RECOMMENDATIONS: Glucerna 1.2 @ 55ml/hr x24 hrs to provide 1320ml, 1584kcal, 79g prot, 1063ml free water - As medically appropriate, initiate Glucerna 1.2 @ 35ml/hr - Advance TF 10ml q 4-6 hrs as tolerated to goal rate - HOB over 30 degrees/ water flush per MD ADDITIONAL RECOMMENDATIONS: 1) Calibrated bedscale wt for accurate CBW- w/ added P200 mattress + pump 2) Rec long acting insulin for improved BG control once TF initiates -> BGs in the 300's + 400's 3) Wound healing: add Vit C 500mg QD + Gonsalo 1pkt BID 4) Monitor lytes daily, replete as needed (4) Electrolyte imbalance (5) Ventilator dependence Akhil Jackson Nov 09, 2018 16:51
--- NOTE | 2018-11-09 17:00 | NUR ---
NURSE NOTES: Patient in bed, non verbal. SR noted on carbon dioxide operator. Bilateral peripheral radial and pedal pulses weak. lung sounds diminished throughout. mild respiratory distress noted. pt on Bipap 15/7, fi02 100%. skin pale. extremities cold to touch. Abdomen flat, non tender. 1 bm, brown loose. pt GT connected to Glucerna 1.5 at 20ml/hr. no residuals. pure wick, incontinent, bladder flat. iv access Right Foot 20G and left wrist 20g, running D5W@50ml/hr. Bed in lowest position, locked, side rails upx3. contact precautions in place.Call light within reach. Will continue to monitor. pt family here to visit, updated on status.
--- NOTE | 2018-11-09 19:15 | NUR ---
NURSE NOTES: Received Pt from FELIX Johnson. Pt is in bed with labored breathing with MD and charge nurse notified. Pt is on tube feeding an Bipap as prescribed by MD. Skin issues and IV sites noted. Bed at its lowest position, call light in reach, and x3 bed rails are up.Will continue to monitor.
--- NOTE | 2018-11-09 19:30 | NUR ---
HAND-OFF: Report given to FELIX Arteaga.
--- NOTE | 2018-11-09 19:30 | NUR ---
NURSE NOTES: Received Patient in bed, non verbal. opens eyes with shaking. On Tele monitor with SR. On BiPAP setting with 15/7 and FiO2 80% and SaO2 100% noted. Still using accessory muscle for breading. HOB increase to 40 degrees. no secretions noted. On G-tube feeding with Glucerna 1.5 @ 20cc/hr and no residual noted. In continent and applied External female cath. Iv access Right Foot 20G and left wrist 20g, running D5W@50ml/hr. No sign of infiltration noted. Dressing is clean and dry on wound area. Changed position. Bed in lowest position, locked, side rails upx3. contact precautions in place. Bed alarm on. Call light within reach. Will continue to care plan.
--- NOTE | 2018-11-09 19:35 | NUR ---
HAND-OFF: Report given to cecelia WASHINGTON. pt status unchanged.
[2018-11-10] VITALS: BP 95/50
[2018-11-10] MEDS: Polymyxin B Sulfate 500,000 UNITS in D5W 500ml 500 ML IVPB SCH ×2 (01:32→12:12)
[2018-11-10] MEDS: Albuterol/Ipratropium 3ml neb HHN SCH ×5 (03:18→23:53)
[2018-11-10 04:00] VITALS: BP 106/48
[2018-11-10] MEDS: Heparin 5000 units/ml inj SUBQ SCH ×2 (06:00→13:39)
[2018-11-10] MEDS: NovoLOG Insulin Flexpen SUBQ SCH ×3 (06:20→18:15)
[2018-11-10 06:34] LABS: HEMATOCRIT 30.5 % (37.0-47.0); HEMOGLOBIN 9.9 G/DL (12.0-16.0); MEAN CORPUSCULAR VOLUME 98 FL (80-99); PLATELET COUNT 91 K/UL (150-450); RED BLOOD COUNT 3.13 M/UL (4.20-5.40); RED CELL DISTRIBUTION WIDTH 13.1 % (11.6-14.8); WHITE BLOOD COUNT 10.7 K/UL (4.8-10.8)
[2018-11-10 06:50] LABS: ALANINE AMINOTRANSFERASE 13 U/L (12-78); ALBUMIN 1.6 G/DL (3.4-5.0); ALBUMIN/GLOBULIN RATIO 0.3 (1.0-2.7); ALKALINE PHOSPHATASE 119 U/L (46-116); ANION GAP 9 mmol/L (5-15); ASPARTATE AMINO TRANSFERASE 27 U/L (15-37); BILIRUBIN,TOTAL 0.7 MG/DL (0.2-1.0); BLOOD UREA NITROGEN 17 mg/dL (7-18); CALCIUM 8.3 MG/DL (8.5-10.1); CARBON DIOXIDE 25 MMOL/L (21-32); CHLORIDE 105 MMOL/L (98-107); CREATININE 0.8 MG/DL (0.55-1.30); PHOSPHORUS 2.8 MG/DL (2.5-4.9); POTASSIUM 4.2 MMOL/L (3.5-5.1); SODIUM 139 MMOL/L (136-145)
--- NOTE | 2018-11-10 07:41 | NUR ---
HAND-OFF: Report given to FELIX Russ. Pt is sleeping on the bed and no sign of acute distress noted.
[2018-11-10 08:00] VITALS: BP 101/57
[2018-11-10] MEDS ORDERED: Vancomycin 1 GM in NS 275 ML IVPB SCH (08:00)
--- NOTE | 2018-11-10 08:00 | NUR ---
NURSE NOTES: Pt obtunded, tachy respirations on continuous bipap 15/7 @ 60%, responds to phys stim by withdrawal. Vital signs stable with SR @ 91 on monitor. IV access LW flushed with 10 ml NS and locked. IV access right foot with D5 @ 50 ml/hr. P200 mattress installed on bed and running. G-tube in place, 5 ml residual with Glu 1.5 running at 40 with goal of 55 ml/hr. Bed left in low position, side rails up x 3 and call light left near pt's hand.
[2018-11-10] MEDS: Vancomycin 1 GM in NS 275 ML IVPB SCH (08:27)
[2018-11-10] MEDS: Pantoprazole Inj IV SCH (08:37)
[2018-11-10] MEDS: Ascorbic Acid 500mg tab ORAL SCH (08:37)
--- NOTE | 2018-11-10 09:04 | Diagnostic Imaging Report ---
EXAM: XR Chest, 1 View CLINICAL HISTORY: INFECT TECHNIQUE: Frontal view of the chest. COMPARISON: Chest x-ray dated 11 08 18 FINDINGS: Lungs: Persistent increased interstitial markings. Unchanged mild bibasilar subcentimeter atelectasis versus infiltrates. Pleural space: Unremarkable. The costophrenic angles are sharp. No visible pneumothorax. Heart: Unremarkable. No cardiomegaly. Mediastinum: Unremarkable. Bones joints: Degenerative changes throughout the visualized spine and shoulder joints. Vasculature: Atherosclerotic calcifications within the aortic arch. Tubes, lines and devices: Telemetry leads overlie the thorax. IMPRESSION: 1. Persistent increased interstitial markings. This is nonspecific but may suggest pulmonary vascular congestion or a mild interstitial pneumonitis. 2. Unchanged mild bibasilar subsegmental atelectasis versus infiltrates.
--- NOTE | 2018-11-10 09:51 | Nephrology Progress Note ---
Assessment/Plan Problem List: (1) KEL (acute kidney injury) (2) Hypokalemia (3) Severe sepsis (4) Hypernatremia (5) Hypercalcemia (6) DM (diabetes mellitus) Assessment Sepsis Acute renal failure HyperNatremia Dehydration G Tube Low k DM OOC CVA [place] Previous admission was intubated on vent, but extubated Plan antibiotics Levemir and SS insulin D5W + Free water via GT IV KCl and phos and mag as needed monitor renal parameters and lytes Pulm support correct lytes BS and BP check and monitor per consultants Subjective ROS Limited/Unobtainable: Yes Objective Objective Last 24 Hour Vital Signs Date Time Temp Pulse Resp B/P (MAP) Pulse Ox O2 Delivery O2 Flow Rate FiO2 11/10/18 07:33 88 22 100 Facial 55 88 22 100 Bi-Pap 55 11/10/18 05:43 89 24 100 Facial 65 11/10/18 04:00 Bi-pap 11/10/18 04:00 97.8 80 28 106/48 (67) 100 11/10/18 04:00 76 11/10/18 04:00 60 11/10/18 03:19 83 20 90 Facial 60 83 24 90 Bi-Pap 60 11/10/18 01:11 73 25 100 Facial 70 11/10/18 00:17 99.4 11/10/18 00:00 100.1 78 28 95/50 (65) 100 11/10/18 00:00 80 11/10/18 00:00 78 11/10/18 00:00 Bi-pap 11/09/18 23:22 78 24 100 Facial 80 78 24 100 Bi-Pap 80 11/09/18 20:37 82 19 100 Facial 80 11/09/18 20:00 98.2 81 18 95/51 (66) 100 11/09/18 20:00 80 11/09/18 20:00 80 11/09/18 20:00 Bi-pap 11/09/18 19:38 80 20 100 Facial 80 80 20 100 Bi-Pap 80 11/09/18 16:38 85 20 100 Facial 80 11/09/18 16:00 111 11/09/18 16:00 97.7 90 18 99/55 (70) 100 11/09/18 16:00 100 11/09/18 16:00 Bi-pap 11/09/18 15:32 100 11/09/18 15:30 110 31 91 Facial 100 11/09/18 15:05 94 21 98 Venturi Mask 10.0 45 90 21 96 11/09/18 14:00 98.9 77 19 104/45 (64) 98 11/09/18 13:00 79 18 112/54 (73) 98 11/09/18 12:16 75 18 108/52 (70) 99 11/09/18 12:00 45 11/09/18 12:00 99.4 75 16 95/46 (62) 99 11/09/18 12:00 76 11/09/18 12:00 Venturi Mask 9.0 11/09/18 11:25 78 20 99 Venturi Mask 10.0 45 74 21 100 11/09/18 11:00 73 21 106/46 (66) 100 11/09/18 10:54 72 35 109/45 (66) 100 11/09/18 10:00 72 22 96/39 (58) 99 Intake and Output 11/09/18 11/10/18 18:59 06:59 Intake Total 853.33 ml 1940 ml Output Total 665 ml 600 ml Balance 188.33 ml 1340 ml Free Water 200 ml IV Total 273.33 ml 1300 ml Tube Feeding 80 ml 340 ml Other 300 ml 300 ml Output Urine Total 665 ml 600 ml # Bowel Movements 5 1 Laboratory Tests 11/10/18 04:20: White Blood Count 10.7, Red Blood Count 3.13L, Hemoglobin 9.9L, Hematocrit 30.5L , Mean Corpuscular Volume 98, Mean Corpuscular Hemoglobin 31.7H, Mean Corpuscular Hemoglobin Concent 32.6, Red Cell Distribution Width 13.1, Platelet Count 91L, Mean Platelet Volume 11.2H, Neutrophils (%) (Auto) , Lymphocytes (%) (Auto) , Monocytes (%) (Auto) , Eosinophils (%) (Auto) , Basophils (%) (Auto) , Differential Total Cells Counted 100, Neutrophils % (Manual) 83H, Lymphocytes % (Manual) 14L, Monocytes % (Manual) 2, Eosinophils % (Manual) 1, Basophils % ( Manual) 0, Band Neutrophils 0, Platelet Estimate DecreasedL, Platelet Morphology Normal, Hypochromasia 2+, Sodium Level 139, Potassium Level 4.2, Chloride Level 105, Carbon Dioxide Level 25, Anion Gap 9, Blood Urea Nitrogen 17 , Creatinine 0.8, Estimat Glomerular Filtration Rate , Glucose Level 316H, Calcium Level 8.3L, Phosphorus Level 2.8, Magnesium Level 2.3, Total Bilirubin 0.7, Aspartate Amino Transf (AST/SGOT) 27, Alanine Aminotransferase (ALT/SGPT) 13, Alkaline Phosphatase 119H, C-Reactive Protein, Quantitative 24.6H, Pro-B- Type Natriuretic Peptide 3440H, Total Protein 6.3L, Albumin 1.6L, Globulin 4.7, Albumin/Globulin Ratio 0.3L Height (Feet): 5 Height (Inches): 3.00 Weight (Pounds): 125 General Appearance: mild distress EENT: other - BIPAP Cardiovascular: normal rate Respiratory/Chest: decreased breath sounds Abdomen: distended Objective no change Dwayne Vernon MD Nov 10, 2018 09:50
[2018-11-10 12:00] VITALS: BP 101/42
--- NOTE | 2018-11-10 12:29 | Surgery Progress Note ---
Surgery Progress Note Subjective Additional Comments No acute events overnight. Resting comfortably. Objective Last 24 Hour Vital Signs Date Time Temp Pulse Resp B/P (MAP) Pulse Ox O2 Delivery O2 Flow Rate FiO2 11/10/18 09:30 86 20 100 Facial 55 11/10/18 08:00 91 11/10/18 08:00 Bi-pap 11/10/18 08:00 60 11/10/18 08:00 98.1 91 20 101/57 (72) 100 11/10/18 07:33 88 22 100 Facial 55 88 22 100 Bi-Pap 55 11/10/18 05:43 89 24 100 Facial 65 11/10/18 04:00 Bi-pap 11/10/18 04:00 97.8 80 28 106/48 (67) 100 11/10/18 04:00 76 11/10/18 04:00 60 11/10/18 03:19 83 20 90 Facial 60 83 24 90 Bi-Pap 60 11/10/18 01:11 73 25 100 Facial 70 11/10/18 00:17 99.4 11/10/18 00:00 100.1 78 28 95/50 (65) 100 11/10/18 00:00 80 11/10/18 00:00 78 11/10/18 00:00 Bi-pap 11/09/18 23:22 78 24 100 Facial 80 78 24 100 Bi-Pap 80 11/09/18 20:37 82 19 100 Facial 80 11/09/18 20:00 98.2 81 18 95/51 (66) 100 11/09/18 20:00 80 11/09/18 20:00 80 11/09/18 20:00 Bi-pap 11/09/18 19:38 80 20 100 Facial 80 80 20 100 Bi-Pap 80 11/09/18 16:38 85 20 100 Facial 80 11/09/18 16:00 111 11/09/18 16:00 97.7 90 18 99/55 (70) 100 11/09/18 16:00 100 11/09/18 16:00 Bi-pap 11/09/18 15:32 100 11/09/18 15:30 110 31 91 Facial 100 11/09/18 15:05 94 21 98 Venturi Mask 10.0 45 90 21 96 11/09/18 14:00 98.9 77 19 104/45 (64) 98 11/09/18 13:00 79 18 112/54 (73) 98 I&O Intake and Output 11/09/18 11/10/18 18:59 06:59 Intake Total 853.33 ml 1940 ml Output Total 665 ml 600 ml Balance 188.33 ml 1340 ml Free Water 200 ml IV Total 273.33 ml 1300 ml Tube Feeding 80 ml 340 ml Other 300 ml 300 ml Output Urine Total 665 ml 600 ml # Bowel Movements 5 1 Dressing: saturated Wound: clean Cardiovascular: RSR Respiratory: clear Abdomen: soft, flat, non-tender, present bowel sounds Extremities: no cyanosis Laboratory Tests Test 11/10/18 04:20 White Blood Count 10.7 K/UL (4.8-10.8) Red Blood Count 3.13 M/UL (4.20-5.40) L Hemoglobin 9.9 G/DL (12.0-16.0) L Hematocrit 30.5 % (37.0-47.0) L Mean Corpuscular Volume 98 FL (80-99) Mean Corpuscular Hemoglobin 31.7 PG (27.0-31.0) H Mean Corpuscular Hemoglobin Concent 32.6 G/DL (32.0-36.0) Red Cell Distribution Width 13.1 % (11.6-14.8) Platelet Count 91 K/UL (150-450) L Mean Platelet Volume 11.2 FL (6.5-10.1) H Neutrophils (%) (Auto) % (45.0-75.0) Lymphocytes (%) (Auto) % (20.0-45.0) Monocytes (%) (Auto) % (1.0-10.0) Eosinophils (%) (Auto) % (0.0-3.0) Basophils (%) (Auto) % (0.0-2.0) Differential Total Cells Counted 100 Neutrophils % (Manual) 83 % (45-75) H Lymphocytes % (Manual) 14 % (20-45) L Monocytes % (Manual) 2 % (1-10) Eosinophils % (Manual) 1 % (0-3) Basophils % (Manual) 0 % (0-2) Band Neutrophils 0 % (0-8) Platelet Estimate Decreased L Platelet Morphology Normal Hypochromasia 2+ Sodium Level 139 MMOL/L (136-145) Potassium Level 4.2 MMOL/L (3.5-5.1) Chloride Level 105 MMOL/L (98-107) Carbon Dioxide Level 25 MMOL/L (21-32) Anion Gap 9 mmol/L (5-15) Blood Urea Nitrogen 17 mg/dL (7-18) Creatinine 0.8 MG/DL (0.55-1.30) Estimat Glomerular Filtration Rate mL/min (>60) Glucose Level 316 MG/DL (74-106) H Calcium Level 8.3 MG/DL (8.5-10.1) L Phosphorus Level 2.8 MG/DL (2.5-4.9) Magnesium Level 2.3 MG/DL (1.8-2.4) Total Bilirubin 0.7 MG/DL (0.2-1.0) Aspartate Amino Transf (AST/SGOT) 27 U/L (15-37) Alanine Aminotransferase (ALT/SGPT) 13 U/L (12-78) Alkaline Phosphatase 119 U/L (46-116) H C-Reactive Protein, Quantitative 24.6 mg/dL (0.00-0.90) H Pro-B-Type Natriuretic Peptide 3440 pg/mL (0-125) H Total Protein 6.3 G/DL (6.4-8.2) L Albumin 1.6 G/DL (3.4-5.0) L Globulin 4.7 g/dL Albumin/Globulin Ratio 0.3 (1.0-2.7) L Plan Problems: (1) Severe sepsis Assessment & Plan: IV fluids IV abx trend labs will follow with recs wounds stable and not etiology of sepsis (2) Sacral decubitus ulcer, stage IV Assessment & Plan: Pt presented on admission with Full thickness stage 4 sacral pressure injury, Bilat foot drop. Sacral pressure (L)3.5cm x (W)3.5cm x (D)0.4cm. Base of wound mixed slough/ necrosis. Borders are macerated. Periwound is maroon in colour with additional shearing . Pt moans when area surrounding wound minimally palpated. L lateral malleolus black without erythema ,induration or fluctuance(L)1cm x (W) 1cm. Non-blanching erythema without fluctuance bilat heels. Tx.plan: Cleanse wound with Saline. Apply Therahoney. Apply Moisture Barrier Paste periwound. Cover with Optifoam drsg. Change every 3 days and prn. Apply Cavilon to L lateral malleolus and both heels. Cover each heels and Malleoli with Optifoam drsg. Change every 7 days and prn. APM/LOU Mattress overlay. Reposition at least every 2hours or as tolerated. Off-load heels with pillow. (3) G tube feedings Assessment & Plan: DAILY ESTIMATED NEEDS: Needs based on Wound, DM, sepsis 56kg 25-30 kcals/kg 7719-8992 total kcals 1.25-2 g protein/kg 70-112 g total protein 25-30 mL/kg 9878-9855 total fluid mLs NUTRITION DIAGNOSIS: 1) Swallowing difficulty R/T dysphagia, CVA as evidenced by PEG dependent. 2) Increased kcal and pro needs r/t wound healing, increased metabolic rate as evidenced by admitted w/ sacral wound per photo, pending evaluation, sepsis dx w/ elev wbc, febrile, elev LA, elev BGs (414, 466). . CURRENT TF:NPO ENTERAL NUTRITION RECOMMENDATIONS: Glucerna 1.2 @ 55ml/hr x24 hrs to provide 1320ml, 1584kcal, 79g prot, 1063ml free water - As medically appropriate, initiate Glucerna 1.2 @ 35ml/hr - Advance TF 10ml q 4-6 hrs as tolerated to goal rate - HOB over 30 degrees/ water flush per MD ADDITIONAL RECOMMENDATIONS: 1) Calibrated bedscale wt for accurate CBW- w/ added P200 mattress + pump 2) Rec long acting insulin for improved BG control once TF initiates -> BGs in the 300's + 400's 3) Wound healing: add Vit C 500mg QD + Gonsalo 1pkt BID 4) Monitor lytes daily, replete as needed (4) Electrolyte imbalance (5) Ventilator dependence Akhil Jackson Nov 10, 2018 12:28
--- NOTE | 2018-11-10 14:00 | NUR ---
NURSE NOTES: Dr. Milner seen and examined patient at bedside. Spoke with this nurse and ordered to place patient on Bipap PRN. Order entered, noted, and carried out. Informed primary nurse, FELIX Russ.
--- NOTE | 2018-11-10 14:25 | Pulmonology Progress Note ---
Assessment/Plan Problems: (1) Respiratory failure with hypoxia and hypercapnia (2) SOB (shortness of breath) (3) Septic shock (4) G tube feedings (5) H/O: CVA (cerebrovascular accident) (6) Altered mental status (7) Electrolyte imbalance (8) Pneumonia (9) KEL (acute kidney injury) (10) Hypernatremia (11) HTN (hypertension) (12) UTI (urinary tract infection) (13) DM (diabetes mellitus) (14) Dehydration Assessment/Plan Optimize pulmonary hygiene/mobilize as tolerated Titrate down FiO2 to keep SaO2 > 90% Change BiPAP to PRN/qHS - attempt to take breaks off as able HHN's Abx per ID Monitor volumes and renal function, now off IVF DVT Px: Hep SQ DNAR/DNI, continue to discuss GOC Subjective Allergies: Coded Allergies: No Known Allergies (Unverified , 02/04/17) Subjective TTF Desat ON placed back on BiPAP No distress No report of coughing or SOB Leukocytosis resolved, hyperNa resolved BNP inc, CRP downtrending Objective Last 24 Hour Vital Signs Date Time Temp Pulse Resp B/P (MAP) Pulse Ox O2 Delivery O2 Flow Rate FiO2 11/10/18 13:45 103 25 99 Bi-Pap 55 106 27 98 11/10/18 13:44 106 26 99 Facial 55 11/10/18 12:00 86 11/10/18 12:00 100.0 88 19 101/42 (61) 98 11/10/18 12:00 Bi-pap 11/10/18 12:00 60 11/10/18 11:00 84 19 100 Facial 55 11/10/18 09:30 86 20 100 Facial 55 11/10/18 08:00 91 11/10/18 08:00 Bi-pap 11/10/18 08:00 60 11/10/18 08:00 98.1 91 20 101/57 (72) 100 11/10/18 07:33 88 22 100 Facial 55 88 22 100 Bi-Pap 55 11/10/18 05:43 89 24 100 Facial 65 11/10/18 04:00 Bi-pap 11/10/18 04:00 97.8 80 28 106/48 (67) 100 11/10/18 04:00 76 11/10/18 04:00 60 11/10/18 03:19 83 20 90 Facial 60 83 24 90 Bi-Pap 60 11/10/18 01:11 73 25 100 Facial 70 11/10/18 00:17 99.4 11/10/18 00:00 100.1 78 28 95/50 (65) 100 11/10/18 00:00 80 11/10/18 00:00 78 11/10/18 00:00 Bi-pap 11/09/18 23:22 78 24 100 Facial 80 78 24 100 Bi-Pap 80 11/09/18 20:37 82 19 100 Facial 80 11/09/18 20:00 98.2 81 18 95/51 (66) 100 11/09/18 20:00 80 11/09/18 20:00 80 11/09/18 20:00 Bi-pap 11/09/18 19:38 80 20 100 Facial 80 80 20 100 Bi-Pap 80 11/09/18 16:38 85 20 100 Facial 80 11/09/18 16:00 111 11/09/18 16:00 97.7 90 18 99/55 (70) 100 11/09/18 16:00 100 11/09/18 16:00 Bi-pap 11/09/18 15:32 100 11/09/18 15:30 110 31 91 Facial 100 11/09/18 15:05 94 21 98 Venturi Mask 10.0 45 90 21 96 Intake and Output 11/09/18 11/10/18 18:59 06:59 Intake Total 853.33 ml 1940 ml Output Total 665 ml 600 ml Balance 188.33 ml 1340 ml Free Water 200 ml IV Total 273.33 ml 1300 ml Tube Feeding 80 ml 340 ml Other 300 ml 300 ml Output Urine Total 665 ml 600 ml # Bowel Movements 5 1 General Appearance: no acute distress, cachetic HEENT: normocephalic, atraumatic, anicteric, other - BiPAP Respiratory/Chest: crackles/rales Cardiovascular: normal peripheral pulses, normal rate, regular rhythm Abdomen: normal bowel sounds, soft, non tender, no organomegaly, non distended , other - GT Extremities: no cyanosis, no clubbing, other - 1+ Microbiology Date/Time Source Procedure Growth Status 11/08/18 10:00 Sputum Induced Gram Stain - Final Resulted 11/08/18 10:00 Sputum Culture - Preliminary Gram Negative Esteban Staphylococcus Aureus Resulted 11/08/18 19:29 Stool Clostridium difficile Toxin Assay - Final Complete Laboratory Tests 11/10/18 04:20: White Blood Count 10.7, Red Blood Count 3.13L, Hemoglobin 9.9L, Hematocrit 30.5L , Mean Corpuscular Volume 98, Mean Corpuscular Hemoglobin 31.7H, Mean Corpuscular Hemoglobin Concent 32.6, Red Cell Distribution Width 13.1, Platelet Count 91L, Mean Platelet Volume 11.2H, Neutrophils (%) (Auto) , Lymphocytes (%) (Auto) , Monocytes (%) (Auto) , Eosinophils (%) (Auto) , Basophils (%) (Auto) , Differential Total Cells Counted 100, Neutrophils % (Manual) 83H, Lymphocytes % (Manual) 14L, Monocytes % (Manual) 2, Eosinophils % (Manual) 1, Basophils % ( Manual) 0, Band Neutrophils 0, Platelet Estimate DecreasedL, Platelet Morphology Normal, Hypochromasia 2+, Sodium Level 139, Potassium Level 4.2, Chloride Level 105, Carbon Dioxide Level 25, Anion Gap 9, Blood Urea Nitrogen 17 , Creatinine 0.8, Estimat Glomerular Filtration Rate , Glucose Level 316H, Calcium Level 8.3L, Phosphorus Level 2.8, Magnesium Level 2.3, Total Bilirubin 0.7, Aspartate Amino Transf (AST/SGOT) 27, Alanine Aminotransferase (ALT/SGPT) 13, Alkaline Phosphatase 119H, C-Reactive Protein, Quantitative 24.6H, Pro-B- Type Natriuretic Peptide 3440H, Total Protein 6.3L, Albumin 1.6L, Globulin 4.7, Albumin/Globulin Ratio 0.3L Current Medications Medications (Trade) Dose Ordered Sig/Wayne Route PRN Reason Start Time Stop Time Status Last Admin Dose Admin Acetaminophen (Tylenol) 650 mg Q4H PRN ORAL fever 11/09/18 15:00 12/06/18 14:59 11/09/18 23:47 Acetaminophen (Tylenol) 650 mg Q4H PRN ORAL Mild Pain (Pain Scale 1-3) 11/09/18 15:00 12/08/18 14:59 Albuterol/ Ipratropium (Albuterol/ Ipratropium) 3 ml Q4H PRN HHN Shortness of Breath 11/09/18 15:00 11/13/18 14:59 11/10/18 13:44 Albuterol/ Ipratropium (Albuterol/ Ipratropium) 3 ml Q4HRT HHN 11/09/18 15:00 11/12/18 22:59 11/10/18 07:33 Ascorbic Acid (Vitamin C) 500 mg DAILY ORAL 11/10/18 09:00 12/08/18 08:59 11/10/18 08:37 Dextrose (Dextrose 50%) 25 ml Q30M PRN IV Hypoglycemia 11/09/18 15:00 12/08/18 14:29 Dextrose (Dextrose 50%) 50 ml Q30M PRN IV Hypoglycemia 11/09/18 15:00 12/08/18 14:29 Fluconazole/ Sodium Chloride 100 ml @ 100 mls/hr Q24H IV 11/09/18 18:00 11/16/18 17:59 11/09/18 18:11 Heparin Sodium (Porcine) (Heparin 5000 units/ml) 5,000 units EVERY 8 HOURS SUBQ 11/09/18 22:00 12/06/18 13:59 Hydromorphone HCl (Dilaudid) 1 mg Q6H PRN IVP Moderate Pain (Pain Scale 4-6) 11/09/18 15:00 11/15/18 14:59 Hydromorphone HCl (Dilaudid) 2 mg Q6H PRN IVP Severe Pain (Pain Scale 7-10) 11/09/18 15:00 11/15/18 14:59 Insulin Aspart (NovoLOG) Q6HR SUBQ 11/10/18 12:00 12/06/18 20:59 11/10/18 12:10 Insulin Detemir (Levemir) 15 units BEDTIME SUBQ 11/10/18 21:00 12/10/18 20:59 Meropenem 1 gm/ Sodium Chloride 100 ml @ 200 mls/hr Q12HR IVPB 11/09/18 21:00 11/11/18 20:59 11/10/18 08:43 Ondansetron HCl (Zofran) 4 mg Q6H PRN IVP Nausea & Vomiting 11/09/18 15:00 12/08/18 14:59 Pantoprazole (Protonix) 40 mg DAILY IV 11/10/18 09:00 12/07/18 08:59 11/10/18 08:37 Polymyxin B Sulfate 605105 units/Dextrose 500 ml @ 500 mls/hr Q12H IVPB 11/10/18 01:00 11/14/18 12:59 11/10/18 12:12 Vancomycin HCl (Vanco rx to dose) 1 ea DAILY PRN MISC Per rx protocol 11/10/18 09:00 12/06/18 16:59 Vancomycin HCl 1 gm/Sodium Chloride 275 ml @ 183.708 mls/hr Q24H IVPB 11/10/18 08:00 11/15/18 07:59 11/10/18 08:27 Bimal Milner MD Nov 10, 2018 14:25
--- NOTE | 2018-11-10 14:30 | NUR ---
NURSE NOTES: Removed bipap per Dr Milner, pt sat dropped to 85% within 4 minutes. Conferred with RT Lojo and pt was put on venturi mask, 10 lpm 50%. Pt now sating at 97%
--- NOTE | 2018-11-10 14:46 | General Progress Note ---
Assessment/Plan Assessment/Plan: Tami Doe is a 78 year old female who was undergoing antibiotic therapy for PNA with meropenem at [facility] sent in to the hospital with fever and desaturation. Found to have leukocytosis, fevers, Lactate 4.2. Admitted for septic shock due to pneumonia vs. UTI, acute metabolic encephalopathy, acute hypoxic hypercapnic respiratory failure, severe dehydration, hypernatremia and KEL. Upgraded to ICU due to worsening respiratory failure, now DNR/DNI after family discussion and on BiPAP. 1. Resolving septic shock due to ?PNA (CXR bilateral pleural effusion, pulmonary vascular congestion, ? consolidation), ?UTI. Fungemia risk. doubt infected sacral decubitus. -Meropenem, Vancomycin, and fluconazole and polymyxin per ID -ID consult. Dr. Solis, appreciate recs -Blood cultures negative. Urine growing yeast -Lactate trended down to 1. -Leukocytosis resolved - D/C IVF given patient with evidence of fluid overload on exam and rising BNP and PVC on CXR 2. Acute hypoxic hypercarbic respiratory failure. -Upgraded to ICU, now transferred down to stepdown - Continue BIPAP PRN 3.Toxic metabolic encephalopathy. Treat sepsis and respiratory failure 4.Severe dehydration and hypernatremia. Continue Free water via PEG . Hypernatremia resolved on labs today 5. History of CVA: Hold antihypertensives given sepsis and borderline BP. 6. Sacral decub. Dr. Jackson, wound care consult 7. DM II with hyperglycemia. Levemir increased to 15U given hyperglycemia, insulin aspart sliding scale. 8. KEL. pre-renal due to severe dehydration. avoid nephrotoxic medications. Nephrology consult: Dr. Vernon. KEL resolved. 9. Troponin elevation. No acute ekg changes, demand ischemia. 10. Thrombocytopenia. Due to sepsis. Platelet trending down, hold heparin subq 11. Moderate protein calorie malnutrition. Resumed feeds via PEG, tolerating. Aspiration precautions. High aspiration risk vte ppx: SCDs GI ppx: IV pantoprazole Diet: resumed peg feeds, free water via peg Code status: DNR/DNI, prognosis guarded d/w rn, d/w Dr. Milner I spent 35 minutes on this patient's case including >50% time dedicated to counseling and/or coordination of care. I spent additional 35 minutes reviewing patient's records (labs, imaging, progress notes, showroom sales consultant notes, orders, etc ) as patient is new to me . Subjective Date patient seen: Nov 10, 2018 Time patient seen: 12:50 ROS Limited/Unobtainable: Yes - unable to obtain ROS due to patient mental status Allergies: Coded Allergies: No Known Allergies (Unverified , 02/04/17) Subjective Seen and examined. No acute concerns per RN. Patient remains obtunded. Has been on BIPAP since overnight, tachypneic when off. Objective Last 24 Hour Vital Signs Date Time Temp Pulse Resp B/P (MAP) Pulse Ox O2 Delivery O2 Flow Rate FiO2 11/10/18 13:45 103 25 99 Bi-Pap 55 106 27 98 11/10/18 13:44 106 26 99 Facial 55 11/10/18 12:00 86 11/10/18 12:00 100.0 88 19 101/42 (61) 98 11/10/18 12:00 Bi-pap 11/10/18 12:00 60 11/10/18 11:00 84 19 100 Facial 55 11/10/18 09:30 86 20 100 Facial 55 11/10/18 08:00 91 11/10/18 08:00 Bi-pap 11/10/18 08:00 60 11/10/18 08:00 98.1 91 20 101/57 (72) 100 11/10/18 07:33 88 22 100 Facial 55 88 22 100 Bi-Pap 55 11/10/18 05:43 89 24 100 Facial 65 11/10/18 04:00 Bi-pap 11/10/18 04:00 97.8 80 28 106/48 (67) 100 11/10/18 04:00 76 11/10/18 04:00 60 11/10/18 03:19 83 20 90 Facial 60 83 24 90 Bi-Pap 60 11/10/18 01:11 73 25 100 Facial 70 11/10/18 00:17 99.4 11/10/18 00:00 100.1 78 28 95/50 (65) 100 11/10/18 00:00 80 11/10/18 00:00 78 11/10/18 00:00 Bi-pap 11/09/18 23:22 78 24 100 Facial 80 78 24 100 Bi-Pap 80 11/09/18 20:37 82 19 100 Facial 80 11/09/18 20:00 98.2 81 18 95/51 (66) 100 11/09/18 20:00 80 11/09/18 20:00 80 11/09/18 20:00 Bi-pap 11/09/18 19:38 80 20 100 Facial 80 80 20 100 Bi-Pap 80 11/09/18 16:38 85 20 100 Facial 80 11/09/18 16:00 111 11/09/18 16:00 97.7 90 18 99/55 (70) 100 11/09/18 16:00 100 11/09/18 16:00 Bi-pap 11/09/18 15:32 100 11/09/18 15:30 110 31 91 Facial 100 11/09/18 15:05 94 21 98 Venturi Mask 10.0 45 90 21 96 Intake and Output 11/09/18 11/10/18 18:59 06:59 Intake Total 853.33 ml 1940 ml Output Total 665 ml 600 ml Balance 188.33 ml 1340 ml Free Water 200 ml IV Total 273.33 ml 1300 ml Tube Feeding 80 ml 340 ml Other 300 ml 300 ml Output Urine Total 665 ml 600 ml # Bowel Movements 5 1 Laboratory Tests 11/10/18 04:20: White Blood Count 10.7, Red Blood Count 3.13L, Hemoglobin 9.9L, Hematocrit 30.5L , Mean Corpuscular Volume 98, Mean Corpuscular Hemoglobin 31.7H, Mean Corpuscular Hemoglobin Concent 32.6, Red Cell Distribution Width 13.1, Platelet Count 91L, Mean Platelet Volume 11.2H, Neutrophils (%) (Auto) , Lymphocytes (%) (Auto) , Monocytes (%) (Auto) , Eosinophils (%) (Auto) , Basophils (%) (Auto) , Differential Total Cells Counted 100, Neutrophils % (Manual) 83H, Lymphocytes % (Manual) 14L, Monocytes % (Manual) 2, Eosinophils % (Manual) 1, Basophils % ( Manual) 0, Band Neutrophils 0, Platelet Estimate DecreasedL, Platelet Morphology Normal, Hypochromasia 2+, Sodium Level 139, Potassium Level 4.2, Chloride Level 105, Carbon Dioxide Level 25, Anion Gap 9, Blood Urea Nitrogen 17 , Creatinine 0.8, Estimat Glomerular Filtration Rate , Glucose Level 316H, Calcium Level 8.3L, Phosphorus Level 2.8, Magnesium Level 2.3, Total Bilirubin 0.7, Aspartate Amino Transf (AST/SGOT) 27, Alanine Aminotransferase (ALT/SGPT) 13, Alkaline Phosphatase 119H, C-Reactive Protein, Quantitative 24.6H, Pro-B- Type Natriuretic Peptide 3440H, Total Protein 6.3L, Albumin 1.6L, Globulin 4.7, Albumin/Globulin Ratio 0.3L Height (Feet): 5 Height (Inches): 3.00 Weight (Pounds): 125 General Appearance: other - AAOx0, obtunded EENT: other - BIPAP in place Neck: supple Cardiovascular: other - +S1/S2, RRR Respiratory/Chest: other - BiPAP in place, coarse breath sounds bilaterally Abdomen: normal bowel sounds, non tender, soft Extremities: other - +mild anasarca in all four extremities Edema: 1+ Arm (L), 1+ Arm (R), 1+ Leg (L), 1+ Leg (R), 1+ Generalized Neurologic: other - obtunded Cece Tate M.D. Nov 10, 2018 14:46
--- NOTE | 2018-11-10 15:06 | Infectious Diseases Prog Note ---
Assessment/Plan Assessment/Plan ASSESSMENT AND PLAN: 1. sepsis, staph aureus pna/gram neg pna, chf/edema/atx, gertrudis uti, fungemia risk, sacral wound, sirs, leukocytosis, fevers, bipap, sob/hypoxia, mary - vancomycin, meropenem, diflucan, polymyxin - f/u on final sputum culture and labs - monitor chest x-ray - bipap prn, breathing mask - felecia care - leukocytosis and fevers improved 2. Wound care per surgery and protocol. 3. Elevated creatinine with acute kidney injury. 4. Diabetes. 5. Hypertension. 6. Blood sugar and blood pressure treatment per primary consultants for diabetes and hypertension. 7. Anemia. 8. CVA. 9. Aspiration risk. 10. Aspiration precautions for CVA and aspiration risk. 11. Dysphagia. G-tube. 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 13. Dementia. 14. Encephalopathy. 15. History of sepsis and lactic acidosis. 16. No known drug allergies. 17. Family history is noncontributory. 18. Social history is negative. 19. MAR is noted. 20. Case was discussed with RN. 21. Continue treatment per primary consultants. 22. vre/mrsa colonization and isolation Subjective Constitutional: Reports: fever, fatigue, other - sob, on breathing mask HEENT: Reports: congestion Respiratory: Reports: shortness of breath Cardiovascular: Reports: other - no pressors Gastrointestinal/Abdominal: Denies: nausea, vomiting, diarrhea Genitourinary: Reports: other - + taylor Neurologic: Denies: headache Psychiatric: Denies: depression Skin: Denies: rash Hematologic: Denies: bleeding Musculoskeletal: Denies: pain Allergies: Coded Allergies: No Known Allergies (Unverified , 02/04/17) Objective Vital Signs Last 24 Hour Vital Signs Date Time Temp Pulse Resp B/P (MAP) Pulse Ox O2 Delivery O2 Flow Rate FiO2 11/10/18 13:45 103 25 99 Bi-Pap 55 106 27 98 11/10/18 13:44 106 26 99 Facial 55 11/10/18 12:00 86 11/10/18 12:00 100.0 88 19 101/42 (61) 98 11/10/18 12:00 Bi-pap 11/10/18 12:00 60 11/10/18 11:00 84 19 100 Facial 55 11/10/18 09:30 86 20 100 Facial 55 11/10/18 08:00 91 11/10/18 08:00 Bi-pap 11/10/18 08:00 60 11/10/18 08:00 98.1 91 20 101/57 (72) 100 11/10/18 07:33 88 22 100 Facial 55 88 22 100 Bi-Pap 55 11/10/18 05:43 89 24 100 Facial 65 11/10/18 04:00 Bi-pap 11/10/18 04:00 97.8 80 28 106/48 (67) 100 11/10/18 04:00 76 11/10/18 04:00 60 11/10/18 03:19 83 20 90 Facial 60 83 24 90 Bi-Pap 60 11/10/18 01:11 73 25 100 Facial 70 11/10/18 00:17 99.4 11/10/18 00:00 100.1 78 28 95/50 (65) 100 11/10/18 00:00 80 11/10/18 00:00 78 11/10/18 00:00 Bi-pap 11/09/18 23:22 78 24 100 Facial 80 78 24 100 Bi-Pap 80 11/09/18 20:37 82 19 100 Facial 80 11/09/18 20:00 98.2 81 18 95/51 (66) 100 11/09/18 20:00 80 11/09/18 20:00 80 11/09/18 20:00 Bi-pap 11/09/18 19:38 80 20 100 Facial 80 80 20 100 Bi-Pap 80 11/09/18 16:38 85 20 100 Facial 80 11/09/18 16:00 111 11/09/18 16:00 97.7 90 18 99/55 (70) 100 11/09/18 16:00 100 11/09/18 16:00 Bi-pap 11/09/18 15:32 100 11/09/18 15:30 110 31 91 Facial 100 11/09/18 15:05 94 21 98 Venturi Mask 10.0 45 90 21 96 Height (Feet): 5 Height (Inches): 3.00 Weight (Pounds): 125 General Appearance: no acute distress HEENT: normocephalic, atraumatic, anicteric, mucous membranes moist Respiratory/Chest: crackles/rales, rhonchi - bilaterally Cardiovascular: normal rate, regular rhythm, no gallop/murmur, no JVD Abdomen: normal bowel sounds, soft, non tender, no organomegaly Genitourinary: other - + taylor Extremities: no cyanosis Skin: no rash Neurologic/Psychiatric: bar catcher II-XII grossly normal, alert, responsive, other - weak, opens eyes Lymphatic: no neck adenopathy Musculoskeletal: no effusion Objective Chest x-ray - 11/08/18 - Basilar opacities likely represent atelectasis. Pneumonia not entirely excludable. The heart is enlarged. Mild pulmonary vascular congestion suspected and appears worse compared to the prior study. IMPRESSION: Suspected mild pulmonary vascular congestion, slightly worse. Basal atelectasis. Superimposed pneumonia not excluded Chest x-ray - 11/11/18 - FINDINGS: Lungs: Persistent increased interstitial markings. Unchanged mild bibasilar subcentimeter atelectasis versus infiltrates. Pleural space: Unremarkable. The costophrenic angles are sharp. No visible pneumothorax. Heart: Unremarkable. No cardiomegaly. Mediastinum: Unremarkable. Bones joints: Degenerative changes throughout the visualized spine and shoulder joints. Vasculature: Atherosclerotic calcifications within the aortic arch. Tubes, lines and devices: Telemetry leads overlie the thorax. IMPRESSION: 1. Persistent increased interstitial markings. This is nonspecific but may suggest pulmonary vascular congestion or a mild interstitial pneumonitis. 2. Unchanged mild bibasilar subsegmental atelectasis versus infiltrates. Microbiology Date/Time Source Procedure Growth Status 11/06/18 12:20 Blood Blood Culture - Preliminary NO GROWTH AFTER 48 HOURS Resulted 11/08/18 10:00 Sputum Induced Gram Stain - Final Resulted 11/08/18 10:00 Sputum Culture - Preliminary Gram Negative Esteban Staphylococcus Aureus Resulted 11/08/18 19:29 Stool Clostridium difficile Toxin Assay - Final Complete 11/06/18 12:20 Urine,Clean Catch Urine Culture - Final Gertrudis Tropicalis Complete 11/06/18 12:30 Rectum - Final NO CARBAPENEM-RESISTANT ENTEROBACTERI... Complete Microbiology Date/Time Source Procedure Growth Status 11/08/18 10:00 Sputum Induced Gram Stain - Final Resulted 11/08/18 10:00 Sputum Culture - Preliminary Gram Negative Esteban Staphylococcus Aureus Resulted 11/08/18 19:29 Stool Clostridium difficile Toxin Assay - Final Complete Laboratory Tests Test 11/10/18 04:20 White Blood Count 10.7 K/UL (4.8-10.8) Red Blood Count 3.13 M/UL (4.20-5.40) L Hemoglobin 9.9 G/DL (12.0-16.0) L Hematocrit 30.5 % (37.0-47.0) L Mean Corpuscular Volume 98 FL (80-99) Mean Corpuscular Hemoglobin 31.7 PG (27.0-31.0) H Mean Corpuscular Hemoglobin Concent 32.6 G/DL (32.0-36.0) Red Cell Distribution Width 13.1 % (11.6-14.8) Platelet Count 91 K/UL (150-450) L Mean Platelet Volume 11.2 FL (6.5-10.1) H Neutrophils (%) (Auto) % (45.0-75.0) Lymphocytes (%) (Auto) % (20.0-45.0) Monocytes (%) (Auto) % (1.0-10.0) Eosinophils (%) (Auto) % (0.0-3.0) Basophils (%) (Auto) % (0.0-2.0) Differential Total Cells Counted 100 Neutrophils % (Manual) 83 % (45-75) H Lymphocytes % (Manual) 14 % (20-45) L Monocytes % (Manual) 2 % (1-10) Eosinophils % (Manual) 1 % (0-3) Basophils % (Manual) 0 % (0-2) Band Neutrophils 0 % (0-8) Platelet Estimate Decreased L Platelet Morphology Normal Hypochromasia 2+ Sodium Level 139 MMOL/L (136-145) Potassium Level 4.2 MMOL/L (3.5-5.1) Chloride Level 105 MMOL/L (98-107) Carbon Dioxide Level 25 MMOL/L (21-32) Anion Gap 9 mmol/L (5-15) Blood Urea Nitrogen 17 mg/dL (7-18) Creatinine 0.8 MG/DL (0.55-1.30) Estimat Glomerular Filtration Rate mL/min (>60) Glucose Level 316 MG/DL (74-106) H Calcium Level 8.3 MG/DL (8.5-10.1) L Phosphorus Level 2.8 MG/DL (2.5-4.9) Magnesium Level 2.3 MG/DL (1.8-2.4) Total Bilirubin 0.7 MG/DL (0.2-1.0) Aspartate Amino Transf (AST/SGOT) 27 U/L (15-37) Alanine Aminotransferase (ALT/SGPT) 13 U/L (12-78) Alkaline Phosphatase 119 U/L (46-116) H C-Reactive Protein, Quantitative 24.6 mg/dL (0.00-0.90) H Pro-B-Type Natriuretic Peptide 3440 pg/mL (0-125) H Total Protein 6.3 G/DL (6.4-8.2) L Albumin 1.6 G/DL (3.4-5.0) L Globulin 4.7 g/dL Albumin/Globulin Ratio 0.3 (1.0-2.7) L Current Medications Medications (Trade) Dose Ordered Sig/Wayne Route PRN Reason Start Time Stop Time Status Last Admin Dose Admin Acetaminophen (Tylenol) 650 mg Q4H PRN ORAL fever 11/09/18 15:00 12/06/18 14:59 11/09/18 23:47 Acetaminophen (Tylenol) 650 mg Q4H PRN ORAL Mild Pain (Pain Scale 1-3) 11/09/18 15:00 12/08/18 14:59 Albuterol/ Ipratropium (Albuterol/ Ipratropium) 3 ml Q4H PRN HHN Shortness of Breath 11/09/18 15:00 11/13/18 14:59 11/10/18 13:44 Albuterol/ Ipratropium (Albuterol/ Ipratropium) 3 ml Q4HRT HHN 11/09/18 15:00 11/12/18 22:59 11/10/18 07:33 Ascorbic Acid (Vitamin C) 500 mg DAILY ORAL 11/10/18 09:00 12/08/18 08:59 11/10/18 08:37 Dextrose (Dextrose 50%) 25 ml Q30M PRN IV Hypoglycemia 11/09/18 15:00 12/08/18 14:29 Dextrose (Dextrose 50%) 50 ml Q30M PRN IV Hypoglycemia 11/09/18 15:00 12/08/18 14:29 Fluconazole/ Sodium Chloride 100 ml @ 100 mls/hr Q24H IV 11/09/18 18:00 11/16/18 17:59 11/09/18 18:11 Heparin Sodium (Porcine) (Heparin 5000 units/ml) 5,000 units EVERY 8 HOURS SUBQ 11/09/18 22:00 12/06/18 13:59 Hydromorphone HCl (Dilaudid) 1 mg Q6H PRN IVP Moderate Pain (Pain Scale 4-6) 11/09/18 15:00 11/15/18 14:59 Hydromorphone HCl (Dilaudid) 2 mg Q6H PRN IVP Severe Pain (Pain Scale 7-10) 11/09/18 15:00 11/15/18 14:59 Insulin Aspart (NovoLOG) Q6HR SUBQ 11/10/18 12:00 12/06/18 20:59 11/10/18 12:10 Insulin Detemir (Levemir) 15 units BEDTIME SUBQ 11/10/18 21:00 12/10/18 20:59 Meropenem 1 gm/ Sodium Chloride 100 ml @ 200 mls/hr Q12HR IVPB 11/09/18 21:00 11/11/18 20:59 11/10/18 08:43 Ondansetron HCl (Zofran) 4 mg Q6H PRN IVP Nausea & Vomiting 11/09/18 15:00 12/08/18 14:59 Pantoprazole (Protonix) 40 mg DAILY IV 11/10/18 09:00 12/07/18 08:59 11/10/18 08:37 Polymyxin B Sulfate 307731 units/Dextrose 500 ml @ 500 mls/hr Q12H IVPB 11/10/18 01:00 11/14/18 12:59 11/10/18 12:12 Vancomycin HCl (Vanco rx to dose) 1 ea DAILY PRN MISC Per rx protocol 11/10/18 09:00 12/06/18 16:59 Vancomycin HCl 1 gm/Sodium Chloride 275 ml @ 183.708 mls/hr Q24H IVPB 11/10/18 08:00 11/15/18 07:59 11/10/18 08:27 Milton Valladares MD Nov 10, 2018 15:06
[2018-11-10 16:00] VITALS: BP 123/55
[2018-11-10] MEDS ORDERED: Tubing IV Secondary IV ONE (16:05)
--- NOTE | 2018-11-10 19:15 | NUR ---
NURSE NOTES: received patient from FELIX Russ. patient is obtunded, nonverbal, no s/sx of pain noted at this time. patient is on Venturi mask, 10 L, FiO2: 50%. no s/sx of respiratory distress noted at this time. IV sites are patent and intact, asymptomatic. G-tube site is patent and intact, running feeding at 45 cc/hr. no residual noted, HOB elevated. bed in lowest position and locked, siderails up X3, call light within reach. will continue to monitor.
[2018-11-10 20:00] VITALS: BP 120/51
[2018-11-10] MEDS ORDERED: Levemir Flexpen SUBQ SCH (21:00)
[2018-11-11] VITALS: BP 134/47
[2018-11-11] MEDS: Polymyxin B Sulfate 500,000 UNITS in D5W 500ml 500 ML IVPB SCH ×2 (01:29→12:07)
[2018-11-11] MEDS: NovoLOG Insulin Flexpen SUBQ SCH ×5 (01:30→23:07)
[2018-11-11] MEDS: Albuterol/Ipratropium 3ml neb HHN SCH ×6 (03:25→23:27)
[2018-11-11 04:00] VITALS: BP 125/68
[2018-11-11 06:44] LABS: ANION GAP 11 mmol/L (5-15); BLOOD UREA NITROGEN 19 mg/dL (7-18); CARBON DIOXIDE 25 MMOL/L (21-32); CHLORIDE 106 MMOL/L (98-107); CREATININE 0.9 MG/DL (0.55-1.30); POTASSIUM 3.5 MMOL/L (3.5-5.1); SODIUM 142 MMOL/L (136-145)
[2018-11-11 06:59] LABS: BASOPHILS % (AUTO) 0.3 % (0.0-2.0); HEMATOCRIT 30.1 % (37.0-47.0); HEMOGLOBIN 9.9 G/DL (12.0-16.0); LYMPHOCYTES % (AUTO) 13.9 % (20.0-45.0); MEAN CORPUSCULAR VOLUME 96 FL (80-99); NEUTROPHILS % (AUTO) 82.8 % (45.0-75.0); PLATELET COUNT 140 K/UL (150-450); RED BLOOD COUNT 3.15 M/UL (4.20-5.40); RED CELL DISTRIBUTION WIDTH 12.7 % (11.6-14.8); WHITE BLOOD COUNT 9.1 K/UL (4.8-10.8)
--- NOTE | 2018-11-11 07:00 | NUR ---
NURSE NOTES: received patient report from leonor hui. patient is on bed asleep. patient is noted to be obtunded. responsive to pain stimuli. on gtube running at prescribed rate. tolerating very well. sr to st on low 100s. on venturi mask 12 li 50%. patient is from [facility]. sacral st3 noted, bilateral heels blister and redness. on p200 mattress. will continue plan of care.
--- NOTE | 2018-11-11 07:43 | NUR ---
HAND-OFF: Report given to FELIX Allison. patient is in stable condition.
[2018-11-11 08:00] VITALS: BP 124/57
[2018-11-11] MEDS: Pantoprazole Inj IV SCH (08:12)
[2018-11-11] MEDS: Ascorbic Acid 500mg tab ORAL SCH (08:13)
[2018-11-11] MEDS: Vancomycin 1 GM in NS 275 ML IVPB SCH (08:13)
[2018-11-11 12:00] VITALS: BP 119/69
--- NOTE | 2018-11-11 12:25 | Pulmonology Progress Note ---
Assessment/Plan Problems: (1) Respiratory failure with hypoxia and hypercapnia (2) SOB (shortness of breath) (3) Septic shock (4) G tube feedings (5) H/O: CVA (cerebrovascular accident) (6) Altered mental status (7) Electrolyte imbalance (8) Pneumonia (9) KEL (acute kidney injury) (10) Hypernatremia (11) HTN (hypertension) (12) UTI (urinary tract infection) (13) DM (diabetes mellitus) (14) Dehydration Assessment/Plan Optimize pulmonary hygiene/mobilize as tolerated Titrate down FiO2 to keep SaO2 > 90% BiPAP to PRN/qHS HHN's Abx per ID Monitor volumes and renal function, now off IVF DVT Px: Hep SQ DNAR/DNI, continue to discuss GOC Subjective Allergies: Coded Allergies: No Known Allergies (Unverified , 02/04/17) Subjective Tm 100.4 on VM BP 90s getting 500 cc NS No distress No report of coughing or SOB Objective Last 24 Hour Vital Signs Date Time Temp Pulse Resp B/P (MAP) Pulse Ox O2 Delivery O2 Flow Rate FiO2 11/11/18 10:43 99 24 100 Venturi Mask 12.0 50 90 28 99 11/11/18 08:55 99.9 11/11/18 08:00 107 11/11/18 08:00 Venturi Mask 12.0 11/11/18 08:00 100.4 109 24 124/57 (79) 100 11/11/18 08:00 12.0 50 11/11/18 07:47 108 23 100 Venturi Mask 12.0 50 104 22 100 11/11/18 07:37 100 Venturi Mask 12.0 50 11/11/18 04:00 12.0 50 11/11/18 04:00 97.3 96 20 125/68 (87) 100 11/11/18 04:00 104 11/11/18 04:00 Venturi Mask 12.0 11/11/18 03:25 93 21 100 Venturi Mask 12.0 50 94 20 100 11/11/18 00:00 Venturi Mask 10.0 11/11/18 00:00 Venturi Mask 10.0 11/11/18 00:00 77 11/11/18 00:00 8.0 50 11/11/18 00:00 99.1 75 18 134/47 (76) 100 11/10/18 23:54 81 21 100 Venturi Mask 12.0 50 76 20 100 11/10/18 20:00 Venturi Mask 10.0 11/10/18 20:00 100.2 105 24 120/51 (74) 97 11/10/18 20:00 100 11/10/18 20:00 8.0 50 11/10/18 19:27 100 24 99 Venturi Mask 12.0 50 100 24 98 11/10/18 16:00 100.1 98 24 123/55 (77) 98 11/10/18 16:00 60 11/10/18 16:00 104 11/10/18 15:11 Venturi Mask 10.0 11/10/18 14:00 89 95 50 11/10/18 13:45 103 25 99 Bi-Pap 55 106 27 98 11/10/18 13:44 106 26 99 Facial 55 Intake and Output 11/10/18 11/11/18 19:00 07:00 Intake Total 300 ml 1795 ml Output Total 1200 ml 1000 ml Balance -900 ml 795 ml Free Water 300 ml IV Total 700 ml Tube Feeding 495 ml Other 300 ml 300 ml Output Urine Total 1200 ml 1000 ml # Bowel Movements 1 1 General Appearance: cachetic HEENT: normocephalic, atraumatic, anicteric, mucous membranes moist Respiratory/Chest: rhonchi Cardiovascular: normal peripheral pulses, normal rate, regular rhythm Abdomen: normal bowel sounds, soft, non tender, no organomegaly, non distended , no mass, other - GT Extremities: no cyanosis, no clubbing, no edema Microbiology Date/Time Source Procedure Growth Status 11/08/18 19:29 Stool Clostridium difficile Toxin Assay - Final Complete Laboratory Tests 11/11/18 03:41: White Blood Count 9.1, Red Blood Count 3.15L, Hemoglobin 9.9L, Hematocrit 30.1L , Mean Corpuscular Volume 96, Mean Corpuscular Hemoglobin 31.5H, Mean Corpuscular Hemoglobin Concent 33.0, Red Cell Distribution Width 12.7, Platelet Count 140#L, Mean Platelet Volume 11.3H, Neutrophils (%) (Auto) 82.8H, Lymphocytes (%) (Auto) 13.9L, Monocytes (%) (Auto) 2.0, Eosinophils (%) (Auto) 1.0, Basophils (%) (Auto) 0.3, Sodium Level 142, Potassium Level 3.5, Chloride Level 106, Carbon Dioxide Level 25, Anion Gap 11, Blood Urea Nitrogen 19H, Creatinine 0.9, Estimat Glomerular Filtration Rate , Glucose Level 293H, Calcium Level 9.0 11/11/18 07:56: Arterial Blood pH 7.500H, Arterial Blood Partial Pressure CO2 33.4L, Arterial Blood Partial Pressure O2 89.3, Arterial Blood HCO3 25.5, Arterial Blood Oxygen Saturation 96.8, Arterial Blood Base Excess 2.5H, Ray Test Positive Current Medications Medications (Trade) Dose Ordered Sig/Wayne Route PRN Reason Start Time Stop Time Status Last Admin Dose Admin Acetaminophen (Tylenol) 650 mg Q4H PRN ORAL fever 11/09/18 15:00 12/06/18 14:59 11/11/18 08:25 Acetaminophen (Tylenol) 650 mg Q4H PRN ORAL Mild Pain (Pain Scale 1-3) 11/09/18 15:00 12/08/18 14:59 Albuterol/ Ipratropium (Albuterol/ Ipratropium) 3 ml Q4H PRN HHN Shortness of Breath 11/09/18 15:00 11/13/18 14:59 11/10/18 13:44 Albuterol/ Ipratropium (Albuterol/ Ipratropium) 3 ml Q4HRT HHN 11/09/18 15:00 11/12/18 22:59 11/11/18 10:33 Ascorbic Acid (Vitamin C) 500 mg DAILY ORAL 11/10/18 09:00 12/08/18 08:59 11/11/18 08:13 Dextrose (Dextrose 50%) 25 ml Q30M PRN IV Hypoglycemia 11/09/18 15:00 12/08/18 14:29 Dextrose (Dextrose 50%) 50 ml Q30M PRN IV Hypoglycemia 11/09/18 15:00 12/08/18 14:29 Fluconazole/ Sodium Chloride 100 ml @ 100 mls/hr Q24H IV 11/09/18 18:00 11/16/18 17:59 11/10/18 18:13 Heparin Sodium (Porcine) (Heparin 5000 units/ml) 5,000 units EVERY 12 HOURS SUBQ 11/11/18 21:00 12/11/18 20:59 UNV Hydromorphone HCl (Dilaudid) 1 mg Q6H PRN IVP Moderate Pain (Pain Scale 4-6) 11/09/18 15:00 11/15/18 14:59 Hydromorphone HCl (Dilaudid) 2 mg Q6H PRN IVP Severe Pain (Pain Scale 7-10) 11/09/18 15:00 11/15/18 14:59 Insulin Aspart (NovoLOG) Q6HR SUBQ 11/10/18 12:00 12/06/18 20:59 11/11/18 12:08 Insulin Detemir (Levemir) 20 units BEDTIME SUBQ 11/11/18 21:00 12/10/18 20:59 Meropenem 1 gm/ Sodium Chloride 100 ml @ 200 mls/hr Q12HR IVPB 11/10/18 21:00 11/12/18 20:59 11/11/18 08:29 Ondansetron HCl (Zofran) 4 mg Q6H PRN IVP Nausea & Vomiting 11/09/18 15:00 12/08/18 14:59 Pantoprazole (Protonix) 40 mg DAILY IV 11/10/18 09:00 12/07/18 08:59 11/11/18 08:12 Polymyxin B Sulfate 652906 units/Dextrose 500 ml @ 500 mls/hr Q12H IVPB 11/10/18 01:00 11/14/18 12:59 11/11/18 12:07 Vancomycin HCl (Vanco rx to dose) 1 ea DAILY PRN MISC Per rx protocol 11/10/18 09:00 12/06/18 16:59 Vancomycin HCl 1 gm/Sodium Chloride 275 ml @ 183.708 mls/hr Q24H IVPB 11/10/18 08:00 11/15/18 07:59 11/11/18 08:13 Bimal Milner MD Nov 11, 2018 12:25
[2018-11-11] MEDS ORDERED: Amikacin Rx to dose MISC PRN (12:45)
--- NOTE | 2018-11-11 12:49 | Infectious Diseases Prog Note ---
Assessment/Plan Assessment/Plan ASSESSMENT AND PLAN: 1. sepsis, mrsa pna/pseudomonas pna, aspiration risk, chf/edema/atx, gertrudis uti , sacral wound, sirs, leukocytosis, fevers, bipap, sob/hypoxia, mary - vancomycin, amikacin/cipro, flagyl - day # 5 abx, finish diflucan for fungal uti - monitor labs, cultures noted, blood cultures negative - monitor chest x-ray - bipap prn, breathing mask - felecia care - leukocytosis and fevers improved 2. Wound care per surgery and protocol. 3. Elevated creatinine with acute kidney injury. 4. Diabetes. 5. Hypertension. 6. Blood sugar and blood pressure treatment per primary consultants for diabetes and hypertension. 7. Anemia. 8. CVA. 9. Aspiration risk. 10. Aspiration precautions for CVA and aspiration risk. 11. Dysphagia. G-tube. 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 13. Dementia. 14. Encephalopathy. 15. History of sepsis and lactic acidosis. 16. No known drug allergies. 17. Family history is noncontributory. 18. Social history is negative. 19. MAR is noted. 20. Case was discussed with RN. 21. Continue treatment per primary consultants. 22. vre/mrsa colonization and isolation Subjective Constitutional: Reports: fever, fatigue HEENT: Reports: congestion Respiratory: Reports: shortness of breath Gastrointestinal/Abdominal: Reports: nausea, vomiting, diarrhea Genitourinary: Reports: other - + taylor Allergies: Coded Allergies: No Known Allergies (Unverified , 02/04/17) Objective Vital Signs Last 24 Hour Vital Signs Date Time Temp Pulse Resp B/P (MAP) Pulse Ox O2 Delivery O2 Flow Rate FiO2 11/11/18 10:43 99 24 100 Venturi Mask 12.0 50 90 28 99 11/11/18 08:55 99.9 11/11/18 08:00 107 11/11/18 08:00 Venturi Mask 12.0 11/11/18 08:00 100.4 109 24 124/57 (79) 100 11/11/18 08:00 12.0 50 11/11/18 07:47 108 23 100 Venturi Mask 12.0 50 104 22 100 11/11/18 07:37 100 Venturi Mask 12.0 50 11/11/18 04:00 12.0 50 9/29/19 04:00 97.3 96 20 125/68 (87) 100 11/11/18 04:00 104 11/11/18 04:00 Venturi Mask 12.0 11/11/18 03:25 93 21 100 Venturi Mask 12.0 50 94 20 100 11/11/18 00:00 Venturi Mask 10.0 11/11/18 00:00 Venturi Mask 10.0 11/11/18 00:00 77 11/11/18 00:00 8.0 50 11/11/18 00:00 99.1 75 18 134/47 (76) 100 11/10/18 23:54 81 21 100 Venturi Mask 12.0 50 76 20 100 11/10/18 20:00 Venturi Mask 10.0 11/10/18 20:00 100.2 105 24 120/51 (74) 97 11/10/18 20:00 100 11/10/18 20:00 8.0 50 11/10/18 19:27 100 24 99 Venturi Mask 12.0 50 100 24 98 11/10/18 16:00 100.1 98 24 123/55 (77) 98 11/10/18 16:00 60 11/10/18 16:00 104 11/10/18 15:11 Venturi Mask 10.0 11/10/18 14:00 89 95 50 11/10/18 13:45 103 25 99 Bi-Pap 55 106 27 98 11/10/18 13:44 106 26 99 Facial 55 Height (Feet): 5 Height (Inches): 3.00 Weight (Pounds): 125 General Appearance: no acute distress HEENT: normocephalic, atraumatic, anicteric Respiratory/Chest: respiratory distress, accessory muscle use, crackles/rales, rhonchi - bilaterally Cardiovascular: normal rate, regular rhythm, no gallop/murmur Abdomen: normal bowel sounds, soft, non tender, no organomegaly Objective Chest x-ray - 11/08/18 - Basilar opacities likely represent atelectasis. Pneumonia not entirely excludable. The heart is enlarged. Mild pulmonary vascular congestion suspected and appears worse compared to the prior study. IMPRESSION: Suspected mild pulmonary vascular congestion, slightly worse. Basal atelectasis. Superimposed pneumonia not excluded Chest x-ray - 11/11/18 - FINDINGS: Lungs: Persistent increased interstitial markings. Unchanged mild bibasilar subcentimeter atelectasis versus infiltrates. Pleural space: Unremarkable. The costophrenic angles are sharp. No visible pneumothorax. Heart: Unremarkable. No cardiomegaly. Mediastinum: Unremarkable. Bones joints: Degenerative changes throughout the visualized spine and shoulder joints. Vasculature: Atherosclerotic calcifications within the aortic arch. Tubes, lines and devices: Telemetry leads overlie the thorax. IMPRESSION: 1. Persistent increased interstitial markings. This is nonspecific but may suggest pulmonary vascular congestion or a mild interstitial pneumonitis. 2. Unchanged mild bibasilar subsegmental atelectasis versus infiltrates. Microbiology Date/Time Source Procedure Growth Status 11/08/18 19:29 Stool Clostridium difficile Toxin Assay - Final Complete Laboratory Tests Test 11/11/18 03:41 11/11/18 07:56 White Blood Count 9.1 K/UL (4.8-10.8) Red Blood Count 3.15 M/UL (4.20-5.40) L Hemoglobin 9.9 G/DL (12.0-16.0) L Hematocrit 30.1 % (37.0-47.0) L Mean Corpuscular Volume 96 FL (80-99) Mean Corpuscular Hemoglobin 31.5 PG (27.0-31.0) H Mean Corpuscular Hemoglobin Concent 33.0 G/DL (32.0-36.0) Red Cell Distribution Width 12.7 % (11.6-14.8) Platelet Count 140 K/UL (150-450) #L Mean Platelet Volume 11.3 FL (6.5-10.1) H Neutrophils (%) (Auto) 82.8 % (45.0-75.0) H Lymphocytes (%) (Auto) 13.9 % (20.0-45.0) L Monocytes (%) (Auto) 2.0 % (1.0-10.0) Eosinophils (%) (Auto) 1.0 % (0.0-3.0) Basophils (%) (Auto) 0.3 % (0.0-2.0) Sodium Level 142 MMOL/L (136-145) Potassium Level 3.5 MMOL/L (3.5-5.1) Chloride Level 106 MMOL/L (98-107) Carbon Dioxide Level 25 MMOL/L (21-32) Anion Gap 11 mmol/L (5-15) Blood Urea Nitrogen 19 mg/dL (7-18) H Creatinine 0.9 MG/DL (0.55-1.30) Estimat Glomerular Filtration Rate mL/min (>60) Glucose Level 293 MG/DL (74-106) H Calcium Level 9.0 MG/DL (8.5-10.1) Arterial Blood pH 7.500 (7.350-7.450) Arterial Blood Partial Pressure CO2 33.4 mmHg (35.0-45.0) L Arterial Blood Partial Pressure O2 89.3 mmHg (75.0-100.0) Arterial Blood HCO3 25.5 mmol/L (22.0-26.0) Arterial Blood Oxygen Saturation 96.8 % (95-100) Arterial Blood Base Excess 2.5 (-2-2) H Ray Test Positive Current Medications Medications (Trade) Dose Ordered Sig/Wayne Route PRN Reason Start Time Stop Time Status Last Admin Dose Admin Acetaminophen (Tylenol) 650 mg Q4H PRN ORAL fever 11/09/18 15:00 12/06/18 14:59 11/11/18 08:25 Acetaminophen (Tylenol) 650 mg Q4H PRN ORAL Mild Pain (Pain Scale 1-3) 11/09/18 15:00 12/08/18 14:59 Albuterol/ Ipratropium (Albuterol/ Ipratropium) 3 ml Q4H PRN HHN Shortness of Breath 11/09/18 15:00 11/13/18 14:59 11/10/18 13:44 Albuterol/ Ipratropium (Albuterol/ Ipratropium) 3 ml Q4HRT HHN 11/09/18 15:00 11/12/18 22:59 11/11/18 10:33 Ascorbic Acid (Vitamin C) 500 mg DAILY ORAL 11/10/18 09:00 12/08/18 08:59 11/11/18 08:13 Dextrose (Dextrose 50%) 25 ml Q30M PRN IV Hypoglycemia 11/09/18 15:00 12/08/18 14:29 Dextrose (Dextrose 50%) 50 ml Q30M PRN IV Hypoglycemia 11/09/18 15:00 12/08/18 14:29 Fluconazole/ Sodium Chloride 100 ml @ 100 mls/hr Q24H IV 11/09/18 18:00 11/16/18 17:59 11/10/18 18:13 Heparin Sodium (Porcine) (Heparin 5000 units/ml) 5,000 units EVERY 12 HOURS SUBQ 11/11/18 21:00 12/11/18 20:59 Hydromorphone HCl (Dilaudid) 1 mg Q6H PRN IVP Moderate Pain (Pain Scale 4-6) 11/09/18 15:00 11/15/18 14:59 Hydromorphone HCl (Dilaudid) 2 mg Q6H PRN IVP Severe Pain (Pain Scale 7-10) 11/09/18 15:00 11/15/18 14:59 Insulin Aspart (NovoLOG) Q6HR SUBQ 11/10/18 12:00 12/06/18 20:59 11/11/18 12:08 Insulin Detemir (Levemir) 20 units BEDTIME SUBQ 11/11/18 21:00 12/10/18 20:59 Meropenem 1 gm/ Sodium Chloride 100 ml @ 200 mls/hr Q12HR IVPB 11/10/18 21:00 11/12/18 20:59 11/11/18 08:29 Ondansetron HCl (Zofran) 4 mg Q6H PRN IVP Nausea & Vomiting 11/09/18 15:00 12/08/18 14:59 Pantoprazole (Protonix) 40 mg DAILY IV 11/10/18 09:00 12/07/18 08:59 11/11/18 08:12 Polymyxin B Sulfate [id number] units/Dextrose 500 ml @ 500 mls/hr Q12H IVPB 11/10/18 01:00 11/14/18 12:59 11/11/18 12:07 Vancomycin HCl (Vanco rx to dose) 1 ea DAILY PRN MISC Per rx protocol 11/10/18 09:00 12/06/18 16:59 Vancomycin HCl 1 gm/Sodium Chloride 275 ml @ 183.708 mls/hr Q24H IVPB 11/10/18 08:00 11/15/18 07:59 11/11/18 08:13 Milton Valladares MD Nov 11, 2018 12:49
[2018-11-11] MEDS ORDERED: Amikacin 800 MG in NS 110 ML IV SCH ×2 (14:00→15:00)
[2018-11-11] MEDS: metroNIDAZOLE 500mg tab ORAL SCH ×2 (14:09→21:37)
--- NOTE | 2018-11-11 15:14 | Nephrology Progress Note ---
Assessment/Plan Problem List: (1) KEL (acute kidney injury) Assessment: resolved (2) Hypokalemia (3) Severe sepsis (4) Hypernatremia (5) Hypercalcemia (6) DM (diabetes mellitus) Assessment Sepsis Acute renal failure HyperNatremia Dehydration G Tube Low k DM OOC CVA Old jody Previous admission was intubated on vent, but extubated Plan antibiotics Levemir and SS insulin IV KCl and phos and mag as needed monitor renal parameters and lytes Pulm support correct lytes BS and BP check and monitor per consultants Subjective ROS Limited/Unobtainable: No Constitutional: Reports: malaise Objective Objective Last 24 Hour Vital Signs Date Time Temp Pulse Resp B/P (MAP) Pulse Ox O2 Delivery O2 Flow Rate FiO2 11/11/18 14:34 94 25 99 Venturi Mask 12.0 50 97 26 97 11/11/18 12:00 98.4 87 22 119/69 (86) 100 11/11/18 12:00 Venturi Mask 12.0 11/11/18 12:00 12.0 50 11/11/18 10:43 99 24 100 Venturi Mask 12.0 50 90 28 99 11/11/18 08:55 99.9 11/11/18 08:00 107 11/11/18 08:00 Venturi Mask 12.0 11/11/18 08:00 100.4 109 24 124/57 (79) 100 11/11/18 08:00 12.0 50 11/11/18 07:47 108 23 100 Venturi Mask 12.0 50 104 22 100 11/11/18 07:37 100 Venturi Mask 12.0 50 11/11/18 04:00 12.0 50 11/11/18 04:00 97.3 96 20 125/68 (87) 100 11/11/18 04:00 104 11/11/18 04:00 Venturi Mask 12.0 11/11/18 03:25 93 21 100 Venturi Mask 12.0 50 94 20 100 11/11/18 00:00 Venturi Mask 10.0 11/11/18 00:00 Venturi Mask 10.0 11/11/18 00:00 77 11/11/18 00:00 8.0 50 11/11/18 00:00 99.1 75 18 134/47 (76) 100 11/10/18 23:54 81 21 100 Venturi Mask 12.0 50 76 20 100 11/10/18 20:00 Venturi Mask 10.0 11/10/18 20:00 100.2 105 24 120/51 (74) 97 11/10/18 20:00 100 11/10/18 20:00 8.0 50 11/10/18 19:27 100 24 99 Venturi Mask 12.0 50 100 24 98 11/10/18 16:00 100.1 98 24 123/55 (77) 98 11/10/18 16:00 60 11/10/18 16:00 104 Intake and Output 11/10/18 11/11/18 19:00 07:00 Intake Total 300 ml 1795 ml Output Total 1200 ml 1000 ml Balance -900 ml 795 ml Free Water 300 ml IV Total 700 ml Tube Feeding 495 ml Other 300 ml 300 ml Output Urine Total 1200 ml 1000 ml # Bowel Movements 1 1 Laboratory Tests 11/11/18 03:41: White Blood Count 9.1, Red Blood Count 3.15L, Hemoglobin 9.9L, Hematocrit 30.1L , Mean Corpuscular Volume 96, Mean Corpuscular Hemoglobin 31.5H, Mean Corpuscular Hemoglobin Concent 33.0, Red Cell Distribution Width 12.7, Platelet Count 140#L, Mean Platelet Volume 11.3H, Neutrophils (%) (Auto) 82.8H, Lymphocytes (%) (Auto) 13.9L, Monocytes (%) (Auto) 2.0, Eosinophils (%) (Auto) 1.0, Basophils (%) (Auto) 0.3, Sodium Level 142, Potassium Level 3.5, Chloride Level 106, Carbon Dioxide Level 25, Anion Gap 11, Blood Urea Nitrogen 19H, Creatinine 0.9, Estimat Glomerular Filtration Rate , Glucose Level 293H, Calcium Level 9.0 11/11/18 07:56: Arterial Blood pH 7.500H, Arterial Blood Partial Pressure CO2 33.4L, Arterial Blood Partial Pressure O2 89.3, Arterial Blood HCO3 25.5, Arterial Blood Oxygen Saturation 96.8, Arterial Blood Base Excess 2.5H, Ray Test Positive Height (Feet): 5 Height (Inches): 3.00 Weight (Pounds): 125 General Appearance: mild distress EENT: other - on bipap Cardiovascular: tachycardia Respiratory/Chest: decreased breath sounds Abdomen: distended Objective no change Dwayne Vernon MD Nov 11, 2018 15:14
[2018-11-11] MEDS ORDERED: Tubing IV Secondary IV ONE (15:40)
[2018-11-11] MEDS ORDERED: NS 275ml ONE (15:40)
--- NOTE | 2018-11-11 15:41 | Surgery Progress Note ---
Surgery Progress Note Subjective Additional Comments Patient seen and examined bedside. No acute events. Resting comfortably. Labs improving. Exam stable. Micro noted. Objective Last 24 Hour Vital Signs Date Time Temp Pulse Resp B/P (MAP) Pulse Ox O2 Delivery O2 Flow Rate FiO2 11/11/18 14:34 94 25 99 Venturi Mask 12.0 50 97 26 97 11/11/18 12:00 98.4 87 22 119/69 (86) 100 11/11/18 12:00 Venturi Mask 12.0 11/11/18 12:00 12.0 50 11/11/18 11:44 89 11/11/18 10:43 99 24 100 Venturi Mask 12.0 50 90 28 99 11/11/18 08:55 99.9 11/11/18 08:00 107 11/11/18 08:00 Venturi Mask 12.0 11/11/18 08:00 100.4 109 24 124/57 (79) 100 11/11/18 08:00 12.0 50 11/11/18 07:47 108 23 100 Venturi Mask 12.0 50 104 22 100 11/11/18 07:37 100 Venturi Mask 12.0 50 11/11/18 04:00 12.0 50 11/11/18 04:00 97.3 96 20 125/68 (87) 100 11/11/18 04:00 104 11/11/18 04:00 Venturi Mask 12.0 11/11/18 03:25 93 21 100 Venturi Mask 12.0 50 94 20 100 11/11/18 00:00 Venturi Mask 10.0 11/11/18 00:00 Venturi Mask 10.0 11/11/18 00:00 77 11/11/18 00:00 8.0 50 11/11/18 00:00 99.1 75 18 134/47 (76) 100 11/10/18 23:54 81 21 100 Venturi Mask 12.0 50 76 20 100 11/10/18 20:00 Venturi Mask 10.0 11/10/18 20:00 100.2 105 24 120/51 (74) 97 11/10/18 20:00 100 11/10/18 20:00 8.0 50 11/10/18 19:27 100 24 99 Venturi Mask 12.0 50 100 24 98 11/10/18 16:00 100.1 98 24 123/55 (77) 98 11/10/18 16:00 60 11/10/18 16:00 104 I&O Intake and Output 11/10/18 11/11/18 19:00 07:00 Intake Total 300 ml 1795 ml Output Total 1200 ml 1000 ml Balance -900 ml 795 ml Free Water 300 ml IV Total 700 ml Tube Feeding 495 ml Other 300 ml 300 ml Output Urine Total 1200 ml 1000 ml # Bowel Movements 1 1 Dressing: saturated Wound: clean Cardiovascular: RSR Respiratory: clear Abdomen: soft, flat, non-tender, present bowel sounds Extremities: no cyanosis, other Laboratory Tests Test 11/11/18 03:41 11/11/18 07:56 White Blood Count 9.1 K/UL (4.8-10.8) Red Blood Count 3.15 M/UL (4.20-5.40) L Hemoglobin 9.9 G/DL (12.0-16.0) L Hematocrit 30.1 % (37.0-47.0) L Mean Corpuscular Volume 96 FL (80-99) Mean Corpuscular Hemoglobin 31.5 PG (27.0-31.0) H Mean Corpuscular Hemoglobin Concent 33.0 G/DL (32.0-36.0) Red Cell Distribution Width 12.7 % (11.6-14.8) Platelet Count 140 K/UL (150-450) #L Mean Platelet Volume 11.3 FL (6.5-10.1) H Neutrophils (%) (Auto) 82.8 % (45.0-75.0) H Lymphocytes (%) (Auto) 13.9 % (20.0-45.0) L Monocytes (%) (Auto) 2.0 % (1.0-10.0) Eosinophils (%) (Auto) 1.0 % (0.0-3.0) Basophils (%) (Auto) 0.3 % (0.0-2.0) Sodium Level 142 MMOL/L (136-145) Potassium Level 3.5 MMOL/L (3.5-5.1) Chloride Level 106 MMOL/L (98-107) Carbon Dioxide Level 25 MMOL/L (21-32) Anion Gap 11 mmol/L (5-15) Blood Urea Nitrogen 19 mg/dL (7-18) H Creatinine 0.9 MG/DL (0.55-1.30) Estimat Glomerular Filtration Rate mL/min (>60) Glucose Level 293 MG/DL (74-106) H Calcium Level 9.0 MG/DL (8.5-10.1) Arterial Blood pH 7.500 (7.350-7.450) Arterial Blood Partial Pressure CO2 33.4 mmHg (35.0-45.0) L Arterial Blood Partial Pressure O2 89.3 mmHg (75.0-100.0) Arterial Blood HCO3 25.5 mmol/L (22.0-26.0) Arterial Blood Oxygen Saturation 96.8 % (95-100) Arterial Blood Base Excess 2.5 (-2-2) H Ray Test Positive Plan Problems: (1) Severe sepsis Assessment & Plan: IV fluids IV abx trend labs will follow with recs wounds stable and not etiology of sepsis (2) Sacral decubitus ulcer, stage IV Assessment & Plan: Pt presented on admission with Full thickness stage 4 sacral pressure injury, Bilat foot drop. Sacral pressure (L)3.5cm x (W)3.5cm x (D)0.4cm. Base of wound mixed slough/ necrosis. Borders are macerated. Periwound is maroon in colour with additional shearing . Pt moans when area surrounding wound minimally palpated. L lateral malleolus black without erythema ,induration or fluctuance(L)1cm x (W) 1cm. Non-blanching erythema without fluctuance bilat heels. Tx.plan: Cleanse wound with Saline. Apply Therahoney. Apply Moisture Barrier Paste periwound. Cover with Optifoam drsg. Change every 3 days and prn. Apply Cavilon to L lateral malleolus and both heels. Cover each heels and Malleoli with Optifoam drsg. Change every 7 days and prn. APM/LOU Mattress overlay. Reposition at least every 2hours or as tolerated. Off-load heels with pillow. (3) G tube feedings Assessment & Plan: DAILY ESTIMATED NEEDS: Needs based on Wound, DM, sepsis 56kg 25-30 kcals/kg 5085-4114 total kcals 1.25-2 g protein/kg 70-112 g total protein 25-30 mL/kg 6897-5552 total fluid mLs NUTRITION DIAGNOSIS: 1) Swallowing difficulty R/T dysphagia, CVA as evidenced by PEG dependent. 2) Increased kcal and pro needs r/t wound healing, increased metabolic rate as evidenced by admitted w/ sacral wound per photo, pending evaluation, sepsis dx w/ elev wbc, febrile, elev LA, elev BGs ([phone], [phone]). . CURRENT TF:NPO ENTERAL NUTRITION RECOMMENDATIONS: Glucerna 1.2 @ 55ml/hr x24 hrs to provide 1320ml, 1584kcal, 79g prot, 1063ml free water - As medically appropriate, initiate Glucerna 1.2 @ 35ml/hr - Advance TF 10ml q 4-6 hrs as tolerated to goal rate - HOB over 30 degrees/ water flush per MD ADDITIONAL RECOMMENDATIONS: 1) Calibrated bedscale wt for accurate CBW- w/ added P200 mattress + pump 2) Rec long acting insulin for improved BG control once TF initiates -> BGs in the 300's + 400's 3) Wound healing: add Vit C 500mg QD + Gonsalo 1pkt BID 4) Monitor lytes daily, replete as needed (4) Electrolyte imbalance (5) Ventilator dependence Akhil Jackson Nov 11, 2018 15:41
[2018-11-11 16:00] VITALS: BP 132/62
--- NOTE | 2018-11-11 16:55 | General Progress Note ---
Assessment/Plan Status: unchanged Assessment/Plan: Tami Doe is a 78 year old female who was undergoing antibiotic therapy for PNA with meropenem at [facility] sent in to the hospital with fever and desaturation. Found to have leukocytosis, fevers, Lactate 4.2. Admitted for septic shock due to pneumonia vs. UTI, acute metabolic encephalopathy, acute hypoxic hypercapnic respiratory failure, severe dehydration, hypernatremia and KEL. Upgraded to ICU due to worsening respiratory failure, now DNR/DNI after family discussion and on BiPAP. 1. Resolving septic shock due to ?PNA (CXR bilateral pleural effusion, pulmonary vascular congestion, ? consolidation), ?UTI. Fungemia risk. doubt infected sacral decubitus. -S/p fluconazole, meropenem, and polymyxin per ID, now on amikacin and continues on vancomycin per ID -ID consult. Dr. Solis, appreciate recs -Blood cultures negative. Urine growing yeast. sputum culture with pseudomonas and MRSA -Lactate trended down to 1. -Leukocytosis resolved - D/C'ed IVF given patient with evidence of fluid overload on exam and rising BNP and PVC on CXR 2. Acute hypoxic hypercarbic respiratory failure. -Upgraded to ICU, now transferred down to stepdown - Continue BIPAP PRN. Currently weaned to ventimask 50% FiO2 12L/min, tolerating 3.Toxic metabolic encephalopathy. Treat sepsis and respiratory failure 4.Severe dehydration and hypernatremia. Continue Free water via PEG . Hypernatremia resolved on labs today 5. History of CVA: Hold antihypertensives given sepsis and borderline BP. 6. Sacral decub. Dr. Jackson, wound care consult 7. DM II with hyperglycemia. Levemir increased further to 20U given hyperglycemia, insulin aspart sliding scale. 8. KEL. pre-renal due to severe dehydration. avoid nephrotoxic medications. Nephrology consult: Dr. Vernon. KEL resolved. 9. Troponin elevation. No acute ekg changes, demand ischemia. 10. Thrombocytopenia. Due to sepsis. Platelet trended down yesterday and heparin held, improved today, will resume for now 11. Moderate protein calorie malnutrition. Resumed feeds via PEG, tolerating. Aspiration precautions. High aspiration risk 12. hypokalemia repleted vte ppx: heparin subq GI ppx: IV pantoprazole Diet: resumed peg feeds, free water via peg Code status: DNR/DNI, prognosis guarded d/w rn, d/w Dr. Alf Ya spent 35 minutes on this patient's case including >50% time dedicated to counseling and/or coordination of care . Subjective Date patient seen: Nov 11, 2018 ROS Limited/Unobtainable: Yes - patient nonverbal on ventimask Allergies: Coded Allergies: No Known Allergies (Unverified , 02/04/17) Subjective Seen and examined. No acute concerns per RN. Patient moaned to painful stimuli but otherwise non verbal non responsive. Off BiPAP now, on ventimask Objective Last 24 Hour Vital Signs Date Time Temp Pulse Resp B/P (MAP) Pulse Ox O2 Delivery O2 Flow Rate FiO2 11/11/18 16:00 Venturi Mask 12.0 11/11/18 16:00 99 11/11/18 16:00 12.0 50 11/11/18 14:34 94 25 99 Venturi Mask 12.0 50 97 26 97 11/11/18 12:00 98.4 87 22 119/69 (86) 100 11/11/18 12:00 Venturi Mask 12.0 11/11/18 12:00 12.0 50 11/11/18 11:44 89 11/11/18 10:43 99 24 100 Venturi Mask 12.0 50 90 28 99 11/11/18 08:55 99.9 11/11/18 08:00 107 11/11/18 08:00 Venturi Mask 12.0 11/11/18 08:00 100.4 109 24 124/57 (79) 100 11/11/18 08:00 12.0 50 11/11/18 07:47 108 23 100 Venturi Mask 12.0 50 104 22 100 11/11/18 07:37 100 Venturi Mask 12.0 50 11/11/18 04:00 12.0 50 11/11/18 04:00 97.3 96 20 125/68 (87) 100 11/11/18 04:00 104 11/11/18 04:00 Venturi Mask 12.0 11/11/18 03:25 93 21 100 Venturi Mask 12.0 50 94 20 100 11/11/18 00:00 Venturi Mask 10.0 11/11/18 00:00 Venturi Mask 10.0 11/11/18 00:00 77 11/11/18 00:00 8.0 50 11/11/18 00:00 99.1 75 18 134/47 (76) 100 11/10/18 23:54 81 21 100 Venturi Mask 12.0 50 76 20 100 11/10/18 20:00 Venturi Mask 10.0 11/10/18 20:00 100.2 105 24 120/51 (74) 97 11/10/18 20:00 100 11/10/18 20:00 8.0 50 11/10/18 19:27 100 24 99 Venturi Mask 12.0 50 100 24 98 Intake and Output 11/10/18 11/11/18 19:00 07:00 Intake Total 300 ml 1795 ml Output Total 1200 ml 1000 ml Balance -900 ml 795 ml Free Water 300 ml IV Total 700 ml Tube Feeding 495 ml Other 300 ml 300 ml Output Urine Total 1200 ml 1000 ml # Bowel Movements 1 1 Laboratory Tests 11/11/18 03:41: White Blood Count 9.1, Red Blood Count 3.15L, Hemoglobin 9.9L, Hematocrit 30.1L , Mean Corpuscular Volume 96, Mean Corpuscular Hemoglobin 31.5H, Mean Corpuscular Hemoglobin Concent 33.0, Red Cell Distribution Width 12.7, Platelet Count 140#L, Mean Platelet Volume 11.3H, Neutrophils (%) (Auto) 82.8H, Lymphocytes (%) (Auto) 13.9L, Monocytes (%) (Auto) 2.0, Eosinophils (%) (Auto) 1.0, Basophils (%) (Auto) 0.3, Sodium Level 142, Potassium Level 3.5, Chloride Level 106, Carbon Dioxide Level 25, Anion Gap 11, Blood Urea Nitrogen 19H, Creatinine 0.9, Estimat Glomerular Filtration Rate , Glucose Level 293H, Calcium Level 9.0 11/11/18 07:56: Arterial Blood pH 7.500H, Arterial Blood Partial Pressure CO2 33.4L, Arterial Blood Partial Pressure O2 89.3, Arterial Blood HCO3 25.5, Arterial Blood Oxygen Saturation 96.8, Arterial Blood Base Excess 2.5H, Ray Test Positive Height (Feet): 5 Height (Inches): 3.00 Weight (Pounds): 125 General Appearance: other - Moans to sternal rub but otherwise not responsive, mildly increased work of breathing EENT: other - ventimask in place Cardiovascular: normal peripheral pulses, normal rate, regular rhythm Respiratory/Chest: other - Coarse breath sounds anteriorly, no wheezing Abdomen: normal bowel sounds, non tender, soft Edema: 2+ Arm (L), 2+ Arm (R); 1+ Leg (L), 1+ Leg (R), 1+ Pedal (L), 1+ Pedal ( R), 1+ Generalized Neurologic: unresponsive Skin: warm/dry Cece Tate M.D. Nov 11, 2018 16:55
--- NOTE | 2018-11-11 19:28 | NUR ---
HAND-OFF: copy of patients Report given to bravo hui
[2018-11-11 20:00] VITALS: BP 113/57
--- NOTE | 2018-11-11 21:10 | NUR ---
NURSE NOTES: Pt report received from Liz W[place] MILE. pt vital signs stable. pt is alert and oriented times 1, unable to respond to commands. pt is on a threat monitoring analyst showing NSR, no distress noted. pt is on veturi mask , able to sat up to 98% no distress noted. pt bed is low, locked, armed, bed rails up times 3, call light within reach. will continue plan of care.
[2018-11-11] MEDS: Heparin 5000 units/ml inj SUBQ SCH (21:37)
--- NOTE | 2018-11-11 21:44 | NUR ---
NURSE NOTES: Incorrect Levemir label. will call pipe fidencio trujillo to reprint correct label.
[2018-11-11] MEDS: Levemir Flexpen SUBQ SCH (22:00)
[2018-11-12] VITALS: BP 109/56
[2018-11-12] MEDS: Albuterol/Ipratropium 3ml neb HHN SCH ×5 (03:30→19:43)
[2018-11-12 03:31] LABS: ANION GAP 6 mmol/L (5-15); BLOOD UREA NITROGEN 22 mg/dL (7-18); CALCIUM 9.2 MG/DL (8.5-10.1); CARBON DIOXIDE 30 MMOL/L (21-32); CHLORIDE 109 MMOL/L (98-107); CREATININE 0.8 MG/DL (0.55-1.30); SODIUM 145 MMOL/L (136-145)
[2018-11-12 04:00] VITALS: BP 107/55
[2018-11-12 04:12] LABS: BASOPHILS % (AUTO) 0.4 % (0.0-2.0); EOSINOPHILS % (AUTO) 1.4 % (0.0-3.0); HEMOGLOBIN 8.6 G/DL (12.0-16.0); LYMPHOCYTES % (AUTO) 13.9 % (20.0-45.0); MEAN CORPUSCULAR VOLUME 94 FL (80-99); MONOCYTES % (AUTO) 3.4 % (1.0-10.0); NEUTROPHILS % (AUTO) 80.9 % (45.0-75.0); PLATELET COUNT 156 K/UL (150-450); RED BLOOD COUNT 2.65 M/UL (4.20-5.40); RED CELL DISTRIBUTION WIDTH 12.4 % (11.6-14.8); WHITE BLOOD COUNT 8.9 K/UL (4.8-10.8)
[2018-11-12] MEDS: NovoLOG Insulin Flexpen SUBQ SCH ×4 (05:11→23:44)
[2018-11-12] MEDS: metroNIDAZOLE 500mg tab ORAL SCH ×3 (05:11→21:04)
--- NOTE | 2018-11-12 07:15 | NUR ---
HAND-OFF: Report given to Jeb WASHINGTON. Pt remains stable.
[2018-11-12 08:00] VITALS: BP 120/100
--- NOTE | 2018-11-12 08:00 | NUR ---
NURSE NOTES: Pt obtunded, tachy respirations on continuous bipap 15/7 @ 60%, responds to phys stim by withdrawal. Vital signs stable with SR @ 98 on monitor. IV access left wrist and right foot flushed with 10 ml NS and locked. Purewick in place draining clear yellow urine into canister on wall. P200 mattress installed on bed and running. G-tube in place, 0 ml residual with Glu 1.5 running at 55 ml/hr, 100 ml free water flush given. Bed left in low position, side rails up x 3 and call light left near pt's hand.
[2018-11-12] MEDS: Vancomycin 1 GM in NS 275 ML IVPB SCH (08:17)
[2018-11-12] MEDS: Pantoprazole Inj IV SCH (09:17)
[2018-11-12] MEDS: Ascorbic Acid 500mg tab ORAL SCH (09:17)
[2018-11-12] MEDS: Heparin 5000 units/ml inj SUBQ SCH ×2 (09:18→21:08)
--- NOTE | 2018-11-12 09:21 | General Progress Note ---
Assessment/Plan Problem List: (1) Respiratory failure with hypoxia and hypercapnia ICD Codes: J96.91 - Respiratory failure, unspecified with hypoxia; J96.92 - Respiratory failure, unspecified with hypercapnia SNOMED: 25418900 (2) Septic shock ICD Codes: A41.9 - Sepsis, unspecified organism; R65.21 - Severe sepsis with septic shock SNOMED: 84196588 (3) Toxic metabolic encephalopathy ICD Codes: G92 - Toxic encephalopathy SNOMED: 930988140 (4) PNA (pneumonia) ICD Codes: J18.9 - Pneumonia, unspecified organism SNOMED: 444033190 (5) KEL (acute kidney injury) ICD Codes: N17.9 - Acute kidney failure, unspecified SNOMED: 2907249, 08706942 (6) Hypernatremia ICD Codes: E87.0 - Hyperosmolality and hypernatremia SNOMED: 89713210 (7) Elevated troponin ICD Codes: R74.8 - Abnormal levels of other serum enzymes SNOMED: 810428200, 285352877 (8) UTI (urinary tract infection) ICD Codes: N39.0 - Urinary tract infection, site not specified SNOMED: 76558894 (9) Dehydration ICD Codes: E86.0 - Dehydration SNOMED: 26260064 (10) Sacral decubitus ulcer, stage IV ICD Codes: L89.154 - Pressure ulcer of sacral region, stage 4 SNOMED: 151852757, 694799275 Status: unchanged Assessment/Plan: Tami Doe is a 78 year old female who was undergoing antibiotic therapy for PNA with meropenem at [facility] sent in to the hospital with fever and desaturation. Found to have leukocytosis, fevers, Lactate 4.2. Admitted for septic shock due to pneumonia vs. UTI, acute metabolic encephalopathy, acute hypoxic hypercapnic respiratory failure, severe dehydration, hypernatremia and KEL. Upgraded to ICU due to worsening respiratory failure, now DNR/DNI after family discussion and on BiPAP prn, Venturi mask. 1. Resolving septic shock due to pseudomonas PNA, fungal UTI. doubt infected sacral decubitus. -S/p fluconazole, meropenem, and polymyxin per ID, now on amikacin and continues on vancomycin per ID -ID consult. Dr. Solis, appreciate recs -Blood cultures negative. Urine growing yeast. sputum culture with pseudomonas and MRSA -Lactate trended down to 1. -Leukocytosis resolved - D/C'ed IVF given patient with evidence of fluid overload on exam and rising BNP and PVC on CXR 2. Acute hypoxic hypercarbic respiratory failure. -Upgraded to ICU, now transferred down to stepdown - Continue BIPAP PRN. Currently weaned to ventimask 50% FiO2 12L/min, tolerating 3.Toxic metabolic encephalopathy. Treat sepsis and respiratory failure 4.Severe dehydration and hypernatremia. Continue Free water via PEG . Hypernatremia resolved on labs today 5. History of CVA: Hold antihypertensives given sepsis and borderline BP. 6. Sacral decub. Dr. Jackson, wound care consult 7. DM II with hyperglycemia. Levemir increased further to 20U given hyperglycemia, insulin aspart sliding scale. 8. KEL. pre-renal due to severe dehydration. avoid nephrotoxic medications. Nephrology consult: Dr. Vernon. KEL resolved. 9. Troponin elevation. No acute ekg changes, demand ischemia. 10. Thrombocytopenia. Due to sepsis. Platelet trended down yesterday and heparin held, improved today, will resume for now 11. Moderate protein calorie malnutrition. Resumed feeds via PEG, tolerating. Aspiration precautions. High aspiration risk 12. hypokalemia repleted 13. Pain control: Dilaudid prn vte ppx: heparin subq GI ppx: IV pantoprazole Diet: resumed peg feeds, free water via peg Code status: DNR/DNI, prognosis guarded d/w rn, I spent 35 minutes on this patient's case including >50% time dedicated to counseling and/or coordination of care . Subjective Date patient seen: Nov 12, 2018 ROS Limited/Unobtainable: Yes Allergies: Coded Allergies: No Known Allergies (Unverified , 02/04/17) Subjective non verbal, more awake, opens eyes to verbal stimuli. t max 100.4 On venti mask 50%. prn bipap Objective Last 24 Hour Vital Signs Date Time Temp Pulse Resp B/P (MAP) Pulse Ox O2 Delivery O2 Flow Rate FiO2 11/12/18 08:00 94 11/12/18 07:20 92 20 98 Venturi Mask 12.0 50 92 20 98 11/12/18 07:20 100 Venturi Mask 12.0 50 11/12/18 04:00 Venturi Mask 12.0 11/12/18 04:00 12.0 50 11/12/18 04:00 85 11/12/18 04:00 97.9 89 20 107/55 (72) 100 11/12/18 03:30 94 25 99 Venturi Mask 12.0 50 97 26 97 11/12/18 00:00 Venturi Mask 12.0 11/12/18 00:00 99.3 97 20 109/56 (73) 99 11/12/18 00:00 98 11/12/18 00:00 12.0 50 11/11/18 23:29 94 25 99 Venturi Mask 12.0 50 97 26 97 11/11/18 20:00 Venturi Mask 12.0 11/11/18 20:00 12.0 50 11/11/18 20:00 96 11/11/18 20:00 97.7 97 22 113/57 (75) 99 11/11/18 18:35 100 Venturi Mask 12.0 50 11/11/18 16:00 Venturi Mask 12.0 11/11/18 16:00 98.6 105 24 132/62 (85) 100 11/11/18 16:00 99 11/11/18 16:00 12.0 50 11/11/18 14:34 94 25 99 Venturi Mask 12.0 50 97 26 97 11/11/18 12:00 98.4 87 22 119/69 (86) 100 11/11/18 12:00 Venturi Mask 12.0 11/11/18 12:00 12.0 50 11/11/18 11:44 89 11/11/18 10:43 99 24 100 Venturi Mask 12.0 50 90 28 99 Intake and Output 11/11/18 11/12/18 19:00 07:00 Intake Total 1525.616 ml 1250 ml Output Total 1800 ml 300 ml Balance -274.384 ml 950 ml Free Water 150 ml IV Total 480.616 ml 200 ml Tube Feeding 545 ml 600 ml Blood Product 200 ml Other 300 ml 300 ml Output Urine Total 1800 ml 300 ml # Bowel Movements 1 Laboratory Tests 11/12/18 03:05: White Blood Count 8.9, Red Blood Count 2.65L, Hemoglobin 8.6L, Hematocrit 25.0L , Mean Corpuscular Volume 94, Mean Corpuscular Hemoglobin 32.3H, Mean Corpuscular Hemoglobin Concent 34.3, Red Cell Distribution Width 12.4, Platelet Count 156, Mean Platelet Volume 9.2, Neutrophils (%) (Auto) 80.9H, Lymphocytes ( %) (Auto) 13.9L, Monocytes (%) (Auto) 3.4, Eosinophils (%) (Auto) 1.4, Basophils (%) (Auto) 0.4, Sodium Level 145, Potassium Level 4.0, Chloride Level 109H, Carbon Dioxide Level 30, Anion Gap 6, Blood Urea Nitrogen 22H, Creatinine 0.8, Estimat Glomerular Filtration Rate , Glucose Level 273H, Calcium Level 9.2 , Random Amikacin Level 19.8 Height (Feet): 5 Height (Inches): 3.00 Weight (Pounds): 125 Objective General Appearance: Chronically Ill, unresponsive to all stimuli, on venturi mask Head: normocephalic ENT: dry mucus membranes Neck: limited range of motion, supple, no JVD Respiratory: + crackles bilaterally at the base Cardiovascular: RRR, S1S2, no m/r/g, no edema Gastrointestinal: non tender, soft, no mass, other - gtube stoma CDI Musculoskeletal: decreased range of motion Neurologic: unresponsive to al stimuli, aphasic, +hemiplegia Skin: Stage 4 sacral decub ulcer, clean, no discharge or odor Abdullahi Muhammad M.D. Nov 12, 2018 09:21
--- NOTE | 2018-11-12 09:28 | Diagnostic Imaging Report ---
Indication: Shortness of breath Technique: One view of the chest Comparison: 11/10/2018 Findings: Bilateral interstitial and airspace disease is again demonstrated, with dense consolidation in the retrocardiac region. There are probably small bilateral pleural effusions. Findings are unchanged Impression: Unchanged, over 2 days, findings as above.
--- NOTE | 2018-11-12 10:34 | NUR ---
RADIOLOGY DEPT., CHEST X-RAY DONE.-P.DYE
[2018-11-12] MEDS: HYDROmorphone 1mg/ml Carpuject IVP PRN ×2 (10:54→18:07)
--- NOTE | 2018-11-12 11:34 | NUR ---
CASE MANAGEMENT: REVIEW 11/12/18 SI:RESP FAILURE; SEPTIC SHOCK, SEPSIS, PNA 97.9 85 20 107/55 100% VENTURI MASK; O2 FLOW RATE: 12.0; FiO1 50 RBC 2.65; H/H 8.6/25.0 BG 273; BUN 22 ABG: pH 7.5; pCO2 33.4; IS: IV AMIKACIN Q36H IV CIPROFLOXACIN Q12 IV VANCOMYCIN Q24 IV PROTONIX QD FLAGYL PO Q8 IV DILAUDID Q6H/PRN IV MEROPENEM Q12 HEPARIN SQ Q12HR LEVEMIR QD HS NOVOLOG SQ Q6H ALBUTEROL HHN Q4/PRN ATROVENT HHN : 2W STEPDOWN UNIT DCP: TO RETURN TO [facility] PLAN: IV AMIKACIN CONSIDER HOSPICE CARE
[2018-11-12 12:00] VITALS: BP 122/100
--- NOTE | 2018-11-12 13:18 | Nephrology Progress Note ---
Assessment/Plan Problem List: (1) KEL (acute kidney injury) Assessment: resolved (2) Hypokalemia (3) Severe sepsis (4) Hypernatremia (5) Hypercalcemia (6) DM (diabetes mellitus) Assessment Sepsis Acute renal failure HyperNatremia Dehydration G Tube Low k DM OOC CVA [place] Previous admission was intubated on vent, but extubated Plan antibiotics Levemir and SS insulin IV KCl and phos and mag as needed monitor renal parameters and lytes Pulm support correct lytes BS and BP check and monitor per consultants Subjective ROS Limited/Unobtainable: Yes Constitutional: Reports: malaise Objective Objective Last 24 Hour Vital Signs Date Time Temp Pulse Resp B/P (MAP) Pulse Ox O2 Delivery O2 Flow Rate FiO2 11/12/18 12:00 89 11/12/18 12:00 10.0 45 11/12/18 12:00 98.2 90 22 122/100 (107) 100 11/12/18 11:25 89 20 100 Venturi Mask 12.0 50 89 20 100 11/12/18 11:19 Venturi Mask 12.0 11/12/18 08:00 12.0 50 11/12/18 08:00 94 11/12/18 08:00 Venturi Mask 12.0 11/12/18 08:00 99.1 99 20 120/100 (107) 100 11/12/18 07:20 92 20 98 Venturi Mask 12.0 50 92 20 98 11/12/18 07:20 100 Venturi Mask 12.0 50 11/12/18 04:00 Venturi Mask 12.0 11/12/18 04:00 12.0 50 11/12/18 04:00 85 11/12/18 04:00 97.9 89 20 107/55 (72) 100 11/12/18 03:30 94 25 99 Venturi Mask 12.0 50 97 26 97 11/12/18 00:00 Venturi Mask 12.0 11/12/18 00:00 99.3 97 20 109/56 (73) 99 11/12/18 00:00 98 11/12/18 00:00 12.0 50 11/11/18 23:29 94 25 99 Venturi Mask 12.0 50 97 26 97 11/11/18 20:00 Venturi Mask 12.0 11/11/18 20:00 12.0 50 11/11/18 20:00 96 11/11/18 20:00 97.7 97 22 113/57 (75) 99 11/11/18 18:35 100 Venturi Mask 12.0 50 11/11/18 16:00 Venturi Mask 12.0 11/11/18 16:00 98.6 105 24 132/62 (85) 100 11/11/18 16:00 99 11/11/18 16:00 12.0 50 11/11/18 14:34 94 25 99 Venturi Mask 12.0 50 97 26 97 Intake and Output 11/11/18 11/12/18 19:00 07:00 Intake Total 1525.616 ml 1250 ml Output Total 1800 ml 300 ml Balance -274.384 ml 950 ml Free Water 150 ml IV Total 480.616 ml 200 ml Tube Feeding 545 ml 600 ml Blood Product 200 ml Other 300 ml 300 ml Output Urine Total 1800 ml 300 ml # Bowel Movements 1 Laboratory Tests 11/12/18 03:05: White Blood Count 8.9, Red Blood Count 2.65L, Hemoglobin 8.6L, Hematocrit 25.0L , Mean Corpuscular Volume 94, Mean Corpuscular Hemoglobin 32.3H, Mean Corpuscular Hemoglobin Concent 34.3, Red Cell Distribution Width 12.4, Platelet Count 156, Mean Platelet Volume 9.2, Neutrophils (%) (Auto) 80.9H, Lymphocytes ( %) (Auto) 13.9L, Monocytes (%) (Auto) 3.4, Eosinophils (%) (Auto) 1.4, Basophils (%) (Auto) 0.4, Sodium Level 145, Potassium Level 4.0, Chloride Level 109H, Carbon Dioxide Level 30, Anion Gap 6, Blood Urea Nitrogen 22H, Creatinine 0.8, Estimat Glomerular Filtration Rate , Glucose Level 273H, Calcium Level 9.2 , Random Amikacin Level 19.8 Height (Feet): 5 Height (Inches): 3.00 Weight (Pounds): 125 General Appearance: lethargic EENT: other - O2 Mask Cardiovascular: tachycardia Respiratory/Chest: decreased breath sounds Abdomen: distended Objective no change Dwayne Vernon MD Nov 12, 2018 13:18
--- NOTE | 2018-11-12 14:46 | Pulmonology Progress Note ---
Assessment/Plan Problems: (1) Respiratory failure with hypoxia and hypercapnia (2) SOB (shortness of breath) (3) Septic shock (4) G tube feedings (5) H/O: CVA (cerebrovascular accident) (6) Altered mental status (7) Electrolyte imbalance (8) Pneumonia (9) KEL (acute kidney injury) (10) Hypernatremia (11) HTN (hypertension) (12) UTI (urinary tract infection) (13) DM (diabetes mellitus) (14) Dehydration Assessment/Plan Optimize pulmonary hygiene/mobilize as tolerated Titrate down FiO2 to keep SaO2 > 90% BiPAP to PRN/qHS HHN's Abx per ID Monitor volumes and renal function DVT Px: Hep SQ DNAR/DNI, continue to discuss GOC Subjective Allergies: Coded Allergies: No Known Allergies (Unverified , 02/04/17) Subjective AFVSS O2 needs unchanged on VM No distress No report of coughing or SOB Objective Last 24 Hour Vital Signs Date Time Temp Pulse Resp B/P (MAP) Pulse Ox O2 Delivery O2 Flow Rate FiO2 11/12/18 12:00 89 11/12/18 12:00 10.0 45 11/12/18 12:00 98.2 90 22 122/100 (107) 100 11/12/18 11:25 89 20 100 Venturi Mask 12.0 50 89 20 100 11/12/18 11:19 Venturi Mask 12.0 11/12/18 08:00 12.0 50 11/12/18 08:00 94 11/12/18 08:00 Venturi Mask 12.0 11/12/18 08:00 99.1 99 20 120/100 (107) 100 11/12/18 07:20 92 20 98 Venturi Mask 12.0 50 92 20 98 11/12/18 07:20 100 Venturi Mask 12.0 50 11/12/18 04:00 Venturi Mask 12.0 11/12/18 04:00 12.0 50 11/12/18 04:00 85 11/12/18 04:00 97.9 89 20 107/55 (72) 100 11/12/18 03:30 94 25 99 Venturi Mask 12.0 50 97 26 97 11/12/18 00:00 Venturi Mask 12.0 11/12/18 00:00 99.3 97 20 109/56 (73) 99 11/12/18 00:00 98 11/12/18 00:00 12.0 50 11/11/18 23:29 94 25 99 Venturi Mask 12.0 50 97 26 97 11/11/18 20:00 Venturi Mask 12.0 11/11/18 20:00 12.0 50 11/11/18 20:00 96 11/11/18 20:00 97.7 97 22 113/57 (75) 99 11/11/18 18:35 100 Venturi Mask 12.0 50 11/11/18 16:00 Venturi Mask 12.0 11/11/18 16:00 98.6 105 24 132/62 (85) 100 11/11/18 16:00 99 11/11/18 16:00 12.0 50 Intake and Output 11/11/18 11/12/18 19:00 07:00 Intake Total 1525.616 ml 1250 ml Output Total 1800 ml 300 ml Balance -274.384 ml 950 ml Free Water 150 ml IV Total 480.616 ml 200 ml Tube Feeding 545 ml 600 ml Blood Product 200 ml Other 300 ml 300 ml Output Urine Total 1800 ml 300 ml # Bowel Movements 1 General Appearance: cachetic HEENT: normocephalic, atraumatic, anicteric, mucous membranes moist Respiratory/Chest: crackles/rales Cardiovascular: normal peripheral pulses, normal rate, regular rhythm Abdomen: normal bowel sounds, soft, non tender, no organomegaly, non distended , other - GT Extremities: no cyanosis, no clubbing, no edema Laboratory Tests 11/12/18 03:05: White Blood Count 8.9, Red Blood Count 2.65L, Hemoglobin 8.6L, Hematocrit 25.0L , Mean Corpuscular Volume 94, Mean Corpuscular Hemoglobin 32.3H, Mean Corpuscular Hemoglobin Concent 34.3, Red Cell Distribution Width 12.4, Platelet Count 156, Mean Platelet Volume 9.2, Neutrophils (%) (Auto) 80.9H, Lymphocytes ( %) (Auto) 13.9L, Monocytes (%) (Auto) 3.4, Eosinophils (%) (Auto) 1.4, Basophils (%) (Auto) 0.4, Sodium Level 145, Potassium Level 4.0, Chloride Level 109H, Carbon Dioxide Level 30, Anion Gap 6, Blood Urea Nitrogen 22H, Creatinine 0.8, Estimat Glomerular Filtration Rate , Glucose Level 273H, Calcium Level 9.2 , Random Amikacin Level 19.8 Current Medications Medications (Trade) Dose Ordered Sig/Wayne Route PRN Reason Start Time Stop Time Status Last Admin Dose Admin Acetaminophen (Tylenol) 650 mg Q4H PRN ORAL fever 11/09/18 15:00 12/06/18 14:59 11/11/18 08:25 Acetaminophen (Tylenol) 650 mg Q4H PRN ORAL Mild Pain (Pain Scale 1-3) 11/09/18 15:00 12/08/18 14:59 Albuterol/ Ipratropium (Albuterol/ Ipratropium) 3 ml Q4H PRN HHN Shortness of Breath 11/09/18 15:00 11/13/18 14:59 11/10/18 13:44 Albuterol/ Ipratropium (Albuterol/ Ipratropium) 3 ml Q4HRT HHN 11/09/18 15:00 11/12/18 22:59 11/12/18 11:28 Amikacin Protocol (Amikacin pharmacy to dose) 1 ea DAILY PRN MISC Per rx protocol 11/11/18 12:45 12/11/18 12:44 Amikacin Sulfate 800 mg/Sodium Chloride 113.2 ml @ 113.2 mls/ hr Q48H IV 11/13/18 15:00 11/18/18 14:59 Ascorbic Acid (Vitamin C) 500 mg DAILY ORAL 11/10/18 09:00 12/08/18 08:59 11/12/18 09:17 Ciprofloxacin 200 ml @ 200 mls/hr Q12HR IV 11/11/18 21:00 11/18/18 20:59 11/12/18 09:52 Dextrose (Dextrose 50%) 25 ml Q30M PRN IV Hypoglycemia 11/09/18 15:00 12/08/18 14:29 Dextrose (Dextrose 50%) 50 ml Q30M PRN IV Hypoglycemia 11/09/18 15:00 12/08/18 14:29 Heparin Sodium (Porcine) (Heparin 5000 units/ml) 5,000 units EVERY 12 HOURS SUBQ 11/11/18 21:00 12/11/18 20:59 11/12/18 09:18 Hydromorphone HCl (Dilaudid) 1 mg Q6H PRN IVP Moderate Pain (Pain Scale 4-6) 11/09/18 15:00 11/15/18 14:59 11/12/18 10:54 Hydromorphone HCl (Dilaudid) 2 mg Q6H PRN IVP Severe Pain (Pain Scale 7-10) 11/09/18 15:00 11/15/18 14:59 Insulin Aspart (NovoLOG) Q6HR SUBQ 11/10/18 12:00 12/06/18 20:59 11/12/18 12:04 Insulin Detemir (Levemir) 20 units BEDTIME SUBQ 11/11/18 21:00 12/10/18 20:59 11/11/18 22:00 Metronidazole (Flagyl) 500 mg EVERY 8 HOURS ORAL 11/11/18 14:00 11/18/18 13:59 11/12/18 05:11 Ondansetron HCl (Zofran) 4 mg Q6H PRN IVP Nausea & Vomiting 11/09/18 15:00 12/08/18 14:59 Pantoprazole (Protonix) 40 mg DAILY IV 11/10/18 09:00 12/07/18 08:59 11/12/18 09:17 Vancomycin HCl (Vanco rx to dose) 1 ea DAILY PRN MISC Per rx protocol 11/10/18 09:00 12/06/18 16:59 Vancomycin HCl 1 gm/Sodium Chloride 275 ml @ 183.708 mls/hr Q24H IVPB 11/10/18 08:00 11/15/18 07:59 11/12/18 08:17 Bimal Milner MD Nov 12, 2018 14:46
[2018-11-12 16:00] VITALS: BP 103/53
--- NOTE | 2018-11-12 16:20 | Surgery Progress Note ---
Surgery Progress Note Subjective Additional Comments No acute events overnight. Leukocytosis resolved. Labs improved. Overall currently stable. Exam unchanged Objective Last 24 Hour Vital Signs Date Time Temp Pulse Resp B/P (MAP) Pulse Ox O2 Delivery O2 Flow Rate FiO2 11/12/18 14:45 92 20 100 Venturi Mask 12.0 50 92 20 100 11/12/18 12:00 89 11/12/18 12:00 10.0 45 11/12/18 12:00 98.2 90 22 122/100 (107) 100 11/12/18 11:25 89 20 100 Venturi Mask 12.0 50 89 20 100 11/12/18 11:19 Venturi Mask 12.0 11/12/18 08:00 12.0 50 11/12/18 08:00 94 11/12/18 08:00 Venturi Mask 12.0 11/12/18 08:00 99.1 99 20 120/100 (107) 100 11/12/18 07:20 92 20 98 Venturi Mask 12.0 50 92 20 98 11/12/18 07:20 100 Venturi Mask 12.0 50 11/12/18 04:00 Venturi Mask 12.0 11/12/18 04:00 12.0 50 11/12/18 04:00 85 11/12/18 04:00 97.9 89 20 107/55 (72) 100 11/12/18 03:30 94 25 99 Venturi Mask 12.0 50 97 26 97 11/12/18 00:00 Venturi Mask 12.0 11/12/18 00:00 99.3 97 20 109/56 (73) 99 11/12/18 00:00 98 11/12/18 00:00 12.0 50 11/11/18 23:29 94 25 99 Venturi Mask 12.0 50 97 26 97 11/11/18 20:00 Venturi Mask 12.0 11/11/18 20:00 12.0 50 11/11/18 20:00 96 11/11/18 20:00 97.7 97 22 113/57 (75) 99 11/11/18 18:35 100 Venturi Mask 12.0 50 I&O Intake and Output 11/11/18 11/12/18 19:00 07:00 Intake Total 1525.616 ml 1250 ml Output Total 1800 ml 300 ml Balance -274.384 ml 950 ml Free Water 150 ml IV Total 480.616 ml 200 ml Tube Feeding 545 ml 600 ml Blood Product 200 ml Other 300 ml 300 ml Output Urine Total 1800 ml 300 ml # Bowel Movements 1 Dressing: saturated Wound: other Drains: other Cardiovascular: RSR Respiratory: decreased breath sounds Abdomen: soft, non-tender, present bowel sounds, non-distended Extremities: no cyanosis, other Laboratory Tests Test 11/12/18 03:05 White Blood Count 8.9 K/UL (4.8-10.8) Red Blood Count 2.65 M/UL (4.20-5.40) L Hemoglobin 8.6 G/DL (12.0-16.0) L Hematocrit 25.0 % (37.0-47.0) L Mean Corpuscular Volume 94 FL (80-99) Mean Corpuscular Hemoglobin 32.3 PG (27.0-31.0) H Mean Corpuscular Hemoglobin Concent 34.3 G/DL (32.0-36.0) Red Cell Distribution Width 12.4 % (11.6-14.8) Platelet Count 156 K/UL (150-450) Mean Platelet Volume 9.2 FL (6.5-10.1) Neutrophils (%) (Auto) 80.9 % (45.0-75.0) H Lymphocytes (%) (Auto) 13.9 % (20.0-45.0) L Monocytes (%) (Auto) 3.4 % (1.0-10.0) Eosinophils (%) (Auto) 1.4 % (0.0-3.0) Basophils (%) (Auto) 0.4 % (0.0-2.0) Sodium Level 145 MMOL/L (136-145) Potassium Level 4.0 MMOL/L (3.5-5.1) Chloride Level 109 MMOL/L (98-107) H Carbon Dioxide Level 30 MMOL/L (21-32) Anion Gap 6 mmol/L (5-15) Blood Urea Nitrogen 22 mg/dL (7-18) H Creatinine 0.8 MG/DL (0.55-1.30) Estimat Glomerular Filtration Rate mL/min (>60) Glucose Level 273 MG/DL (74-106) H Calcium Level 9.2 MG/DL (8.5-10.1) Random Amikacin Level 19.8 ug/mL Plan Problems: (1) Severe sepsis Assessment & Plan: IV fluids IV abx trend labs will follow with recs wounds stable and not etiology of sepsis (2) Sacral decubitus ulcer, stage IV Assessment & Plan: Pt presented on admission with Full thickness stage 4 sacral pressure injury, Bilat foot drop. Sacral pressure (L)3.5cm x (W)3.5cm x (D)0.4cm. Base of wound mixed slough/ necrosis. Borders are macerated. Periwound is maroon in colour with additional shearing . Pt moans when area surrounding wound minimally palpated. L lateral malleolus black without erythema ,induration or fluctuance(L)1cm x (W) 1cm. Non-blanching erythema without fluctuance bilat heels. Tx.plan: Cleanse wound with Saline. Apply Therahoney. Apply Moisture Barrier Paste periwound. Cover with Optifoam drsg. Change every 3 days and prn. Apply Cavilon to L lateral malleolus and both heels. Cover each heels and Malleoli with Optifoam drsg. Change every 7 days and prn. APM/LOU Mattress overlay. Reposition at least every 2hours or as tolerated. Off-load heels with pillow. (3) G tube feedings Assessment & Plan: DAILY ESTIMATED NEEDS: Needs based on Wound, DM, sepsis 56kg 25-30 kcals/kg 2720-4402 total kcals 1.25-2 g protein/kg 70-112 g total protein 25-30 mL/kg 5965-6356 total fluid mLs NUTRITION DIAGNOSIS: 1) Swallowing difficulty R/T dysphagia, CVA as evidenced by PEG dependent. 2) Increased kcal and pro needs r/t wound healing, increased metabolic rate as evidenced by admitted w/ sacral wound per photo, pending evaluation, sepsis dx w/ elev wbc, febrile, elev LA, elev BGs (414, 466). . CURRENT TF:NPO ENTERAL NUTRITION RECOMMENDATIONS: Glucerna 1.2 @ 55ml/hr x24 hrs to provide 1320ml, 1584kcal, 79g prot, 1063ml free water - As medically appropriate, initiate Glucerna 1.2 @ 35ml/hr - Advance TF 10ml q 4-6 hrs as tolerated to goal rate - HOB over 30 degrees/ water flush per MD ADDITIONAL RECOMMENDATIONS: 1) Calibrated bedscale wt for accurate CBW- w/ added P200 mattress + pump 2) Rec long acting insulin for improved BG control once TF initiates -> BGs in the 300's + 400's 3) Wound healing: add Vit C 500mg QD + Gonsalo 1pkt BID 4) Monitor lytes daily, replete as needed (4) Electrolyte imbalance (5) Ventilator dependence Akhil Jackson Nov 12, 2018 16:20
--- NOTE | 2018-11-12 16:33 | Infectious Diseases Prog Note ---
Assessment/Plan Assessment/Plan ASSESSMENT AND PLAN: 1. sepsis, mrsa pna/pseudomonas pna, aspiration risk, chf/edema/atx, gertrudis uti , sacral wound, sirs, leukocytosis, fevers, bipap, sob/hypoxia, mary - abx changed to vancomycin, amikacin/cipro, flagyl - day # 6 abx total - monitor labs, cultures noted, blood cultures negative - monitor chest x-ray - bipap prn, breathing mask - felecia care - leukocytosis and fevers improved - wound care per surgery 2. Wound care per surgery and protocol. 3. Elevated creatinine with acute kidney injury. 4. Diabetes. 5. Hypertension. 6. Blood sugar and blood pressure treatment per primary consultants for diabetes and hypertension. 7. Anemia. 8. CVA. 9. Aspiration risk. 10. Aspiration precautions for CVA and aspiration risk. 11. Dysphagia. G-tube. 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 13. Dementia. 14. Encephalopathy. 15. History of sepsis and lactic acidosis. 16. No known drug allergies. 17. Family history is noncontributory. 18. Social history is negative. 19. MAR is noted. 20. Case was discussed with RN. 21. Continue treatment per primary consultants. 22. vre/mrsa colonization and isolation Subjective Constitutional: Reports: fever - less, fatigue, other - sob, no mask, slt more alert HEENT: Reports: congestion Respiratory: Reports: shortness of breath Cardiovascular: Reports: other - no pressors Gastrointestinal/Abdominal: Denies: nausea, vomiting, diarrhea Genitourinary: Reports: other - + taylor Neurologic: Reports: confusion, other - lethargic, no sz Psychiatric: Reports: other - NA Skin: Denies: rash Hematologic: Denies: bleeding Musculoskeletal: Reports: other - NA Allergies: Coded Allergies: No Known Allergies (Unverified , 02/04/17) Objective Vital Signs Last 24 Hour Vital Signs Date Time Temp Pulse Resp B/P (MAP) Pulse Ox O2 Delivery O2 Flow Rate FiO2 11/12/18 14:45 92 20 100 Venturi Mask 12.0 50 92 20 100 11/12/18 12:00 89 11/12/18 12:00 10.0 45 11/12/18 12:00 98.2 90 22 122/100 (107) 100 11/12/18 11:25 89 20 100 Venturi Mask 12.0 50 89 20 100 9/30/19 11:19 Venturi Mask 12.0 11/12/18 08:00 12.0 50 11/12/18 08:00 94 11/12/18 08:00 Venturi Mask 12.0 11/12/18 08:00 99.1 99 20 120/100 (107) 100 11/12/18 07:20 92 20 98 Venturi Mask 12.0 50 92 20 98 11/12/18 07:20 100 Venturi Mask 12.0 50 11/12/18 04:00 Venturi Mask 12.0 11/12/18 04:00 12.0 50 11/12/18 04:00 85 11/12/18 04:00 97.9 89 20 107/55 (72) 100 11/12/18 03:30 94 25 99 Venturi Mask 12.0 50 97 26 97 11/12/18 00:00 Venturi Mask 12.0 11/12/18 00:00 99.3 97 20 109/56 (73) 99 11/12/18 00:00 98 11/12/18 00:00 12.0 50 11/11/18 23:29 94 25 99 Venturi Mask 12.0 50 97 26 97 11/11/18 20:00 Venturi Mask 12.0 11/11/18 20:00 12.0 50 11/11/18 20:00 96 11/11/18 20:00 97.7 97 22 113/57 (75) 99 11/11/18 18:35 100 Venturi Mask 12.0 50 Height (Feet): 5 Height (Inches): 3.00 Weight (Pounds): 125 General Appearance: other - lethargic but slt more alert HEENT: normocephalic, atraumatic, anicteric, supple, no JVD Respiratory/Chest: respiratory distress, accessory muscle use, crackles/rales, rhonchi - bilaterally Cardiovascular: normal rate, regular rhythm, no gallop/murmur Abdomen: normal bowel sounds, soft, non tender, no organomegaly, non distended Genitourinary: other - + taylor - urine slt cloudy Extremities: no cyanosis Skin: no rash, ulcers - wounds covered Neurologic/Psychiatric: reflow operator II-XII grossly normal, other - slt more alert but still weak and lethargic Lymphatic: no neck adenopathy Musculoskeletal: no effusion Objective Chest x-ray - 11/08/18 - Basilar opacities likely represent atelectasis. Pneumonia not entirely excludable. The heart is enlarged. Mild pulmonary vascular congestion suspected and appears worse compared to the prior study. IMPRESSION: Suspected mild pulmonary vascular congestion, slightly worse. Basal atelectasis. Superimposed pneumonia not excluded Chest x-ray - 11/11/18 - FINDINGS: Lungs: Persistent increased interstitial markings. Unchanged mild bibasilar subcentimeter atelectasis versus infiltrates. Pleural space: Unremarkable. The costophrenic angles are sharp. No visible pneumothorax. Heart: Unremarkable. No cardiomegaly. Mediastinum: Unremarkable. Bones joints: Degenerative changes throughout the visualized spine and shoulder joints. Vasculature: Atherosclerotic calcifications within the aortic arch. Tubes, lines and devices: Telemetry leads overlie the thorax. IMPRESSION: 1. Persistent increased interstitial markings. This is nonspecific but may suggest pulmonary vascular congestion or a mild interstitial pneumonitis. 2. Unchanged mild bibasilar subsegmental atelectasis versus infiltrates. Chest x-ray - 11/12/18 Procedure: XRAY Chest 1v Indication: Shortness of breath Technique: One view of the chest Comparison: 11/10/2018 Findings: Bilateral interstitial and airspace disease is again demonstrated, with dense consolidation in the retrocardiac region. There are probably small bilateral pleural effusions. Findings are unchanged Impression: Unchanged, over 2 days, findings as above. Microbiology Date/Time Source Procedure Growth Status 11/06/18 12:20 Blood Blood Culture - Final NO GROWTH AFTER 5 DAYS Complete 11/08/18 10:00 Sputum Induced Gram Stain - Final Complete 11/08/18 10:00 Sputum Culture - Final Pseudomonas Aeruginosa Staphylococcus Aureus - Mrsa Complete 11/08/18 19:29 Stool Clostridium difficile Toxin Assay - Final Complete 11/06/18 12:20 Urine,Clean Catch Urine Culture - Final Gertrudis Tropicalis Complete 11/06/18 12:30 Rectum - Final NO CARBAPENEM-RESISTANT ENTEROBACTERI... Complete Microbiology Date/Time Source Procedure Growth Status 11/06/18 12:20 Blood Blood Culture - Final NO GROWTH AFTER 5 DAYS Complete 11/08/18 10:00 Sputum Induced Gram Stain - Final Complete 11/08/18 10:00 Sputum Culture - Final Pseudomonas Aeruginosa Staphylococcus Aureus - Mrsa Complete 11/08/18 19:29 Stool Clostridium difficile Toxin Assay - Final Complete 11/06/18 12:20 Urine,Clean Catch Urine Culture - Final Gertrudis Tropicalis Complete 11/06/18 12:30 Rectum - Final NO CARBAPENEM-RESISTANT ENTEROBACTERI... Complete Laboratory Tests Test 11/12/18 03:05 White Blood Count 8.9 K/UL (4.8-10.8) Red Blood Count 2.65 M/UL (4.20-5.40) L Hemoglobin 8.6 G/DL (12.0-16.0) L Hematocrit 25.0 % (37.0-47.0) L Mean Corpuscular Volume 94 FL (80-99) Mean Corpuscular Hemoglobin 32.3 PG (27.0-31.0) H Mean Corpuscular Hemoglobin Concent 34.3 G/DL (32.0-36.0) Red Cell Distribution Width 12.4 % (11.6-14.8) Platelet Count 156 K/UL (150-450) Mean Platelet Volume 9.2 FL (6.5-10.1) Neutrophils (%) (Auto) 80.9 % (45.0-75.0) H Lymphocytes (%) (Auto) 13.9 % (20.0-45.0) L Monocytes (%) (Auto) 3.4 % (1.0-10.0) Eosinophils (%) (Auto) 1.4 % (0.0-3.0) Basophils (%) (Auto) 0.4 % (0.0-2.0) Sodium Level 145 MMOL/L (136-145) Potassium Level 4.0 MMOL/L (3.5-5.1) Chloride Level 109 MMOL/L (98-107) H Carbon Dioxide Level 30 MMOL/L (21-32) Anion Gap 6 mmol/L (5-15) Blood Urea Nitrogen 22 mg/dL (7-18) H Creatinine 0.8 MG/DL (0.55-1.30) Estimat Glomerular Filtration Rate mL/min (>60) Glucose Level 273 MG/DL (74-106) H Calcium Level 9.2 MG/DL (8.5-10.1) Random Amikacin Level 19.8 ug/mL Current Medications Medications (Trade) Dose Ordered Sig/Wayne Route PRN Reason Start Time Stop Time Status Last Admin Dose Admin Acetaminophen (Tylenol) 650 mg Q4H PRN ORAL fever 11/09/18 15:00 12/06/18 14:59 11/11/18 08:25 Acetaminophen (Tylenol) 650 mg Q4H PRN ORAL Mild Pain (Pain Scale 1-3) 11/09/18 15:00 12/08/18 14:59 Albuterol/ Ipratropium (Albuterol/ Ipratropium) 3 ml Q4H PRN HHN Shortness of Breath 11/09/18 15:00 11/13/18 14:59 11/10/18 13:44 Albuterol/ Ipratropium (Albuterol/ Ipratropium) 3 ml Q4HRT HHN 11/09/18 15:00 11/12/18 22:59 11/12/18 14:45 Amikacin Protocol (Amikacin pharmacy to dose) 1 ea DAILY PRN MISC Per rx protocol 11/11/18 12:45 12/11/18 12:44 Amikacin Sulfate 800 mg/Sodium Chloride 113.2 ml @ 113.2 mls/ hr Q48H IV 11/13/18 15:00 11/18/18 14:59 Ascorbic Acid (Vitamin C) 500 mg DAILY ORAL 11/10/18 09:00 12/08/18 08:59 11/12/18 09:17 Ciprofloxacin 200 ml @ 200 mls/hr Q12HR IV 11/11/18 21:00 11/18/18 20:59 11/12/18 09:52 Dextrose (Dextrose 50%) 25 ml Q30M PRN IV Hypoglycemia 11/09/18 15:00 12/08/18 14:29 Dextrose (Dextrose 50%) 50 ml Q30M PRN IV Hypoglycemia 11/09/18 15:00 12/08/18 14:29 Heparin Sodium (Porcine) (Heparin 5000 units/ml) 5,000 units EVERY 12 HOURS SUBQ 11/11/18 21:00 12/11/18 20:59 11/12/18 09:18 Hydromorphone HCl (Dilaudid) 1 mg Q6H PRN IVP Moderate Pain (Pain Scale 4-6) 11/09/18 15:00 11/15/18 14:59 11/12/18 10:54 Hydromorphone HCl (Dilaudid) 2 mg Q6H PRN IVP Severe Pain (Pain Scale 7-10) 11/09/18 15:00 11/15/18 14:59 Insulin Aspart (NovoLOG) Q6HR SUBQ 11/10/18 12:00 12/06/18 20:59 11/12/18 12:04 Insulin Detemir (Levemir) 20 units BEDTIME SUBQ 11/11/18 21:00 12/10/18 20:59 11/11/18 22:00 Metronidazole (Flagyl) 500 mg EVERY 8 HOURS ORAL 11/11/18 14:00 11/18/18 13:59 11/12/18 14:47 Ondansetron HCl (Zofran) 4 mg Q6H PRN IVP Nausea & Vomiting 11/09/18 15:00 12/08/18 14:59 Pantoprazole (Protonix) 40 mg DAILY IV 11/10/18 09:00 12/07/18 08:59 11/12/18 09:17 Vancomycin HCl (Vanco rx to dose) 1 ea DAILY PRN MISC Per rx protocol 11/10/18 09:00 12/06/18 16:59 Vancomycin HCl 1 gm/Sodium Chloride 275 ml @ 183.708 mls/hr Q24H IVPB 11/10/18 08:00 11/15/18 07:59 11/12/18 08:17 Milton Valladares MD Nov 12, 2018 16:32
--- NOTE | 2018-11-12 19:20 | NUR ---
NURSE NOTES: Report received from FELIX Hensley. Observed pt lying in the bed, arousable by shaking. SR on environmental monitoring specialist. On NC 5L, saturating at 100%. Gtube intact and running Glucerna 1.5 at 55cc/hr. IV on R foot 20G, L W 20G, TKO, asymptomatic. Bed in the lowest position. side rails up x3. Will continue to monitor. Addendum: 11/13/18 at 0640 by Osmel Navarrete RN IV on R foot noted to be oozing and taken out.
[2018-11-12 20:00] VITALS: BP 104/56
[2018-11-12] MEDS: Levemir Flexpen SUBQ SCH (21:07)
[2018-11-13] VITALS: BP 104/51
--- NOTE | 2018-11-13 01:00 | NUR ---
NURSE NOTES: Observed pt sleeping in the bed. No acute distress noted at this time. Arousable by shaking. SR on manager clinical. GT intact and 100cc flushed q 4, no residual noted. Bed bath given. Reposition done. Will continue to monitor.
[2018-11-13 04:00] VITALS: BP 116/63
--- NOTE | 2018-11-13 04:00 | NUR ---
NURSE NOTES: Observed pt sleeping in the bed. GT intact, no residual noted, flush 100cc. Oral care done. Reposition done. Bed bath given. No acute distress noted at this time. Will continue to monitor.
[2018-11-13] MEDS: metroNIDAZOLE 500mg tab ORAL SCH ×2 (05:57→14:20)
[2018-11-13] MEDS: NovoLOG Insulin Flexpen SUBQ SCH ×6 (05:58→23:57)
--- NOTE | 2018-11-13 07:35 | NUR ---
HAND-OFF: Report given to FELIX Lemus. No distress noted at this time.
--- NOTE | 2018-11-13 07:36 | NUR ---
NURSE NOTES: Received report from FELIX Arteaga. Patient in bed, with eyes open; however not tracking, responsive to shaking. On NC 5L oxygen, O2Sat:100%. HOB elevated. Purewick connected to suction. IV noted to Lt wrist #[id number]. G Tube intact and patent, running Glucerna 1.5 @ 55mL/hr. SR on cardiac rehabilitation specialist. Instructed patient to use call light for assistance. bed alarm on. bed locked and in low position. Contact isolation maintained. Will resume plan of care.
[2018-11-13 07:38] LABS: BASOPHILS % (AUTO) 0.3 % (0.0-2.0); EOSINOPHILS % (AUTO) 1.4 % (0.0-3.0); LYMPHOCYTES % (AUTO) 12.4 % (20.0-45.0); MEAN CORPUSCULAR VOLUME 95 FL (80-99); MONOCYTES % (AUTO) 3.5 % (1.0-10.0); NEUTROPHILS % (AUTO) 82.4 % (45.0-75.0); PLATELET COUNT 265 K/UL (150-450); RED BLOOD COUNT 2.84 M/UL (4.20-5.40); RED CELL DISTRIBUTION WIDTH 12.6 % (11.6-14.8); WHITE BLOOD COUNT 9.5 K/UL (4.8-10.8)
[2018-11-13 07:44] LABS: ANION GAP 5 mmol/L (5-15); BLOOD UREA NITROGEN 25 mg/dL (7-18); CALCIUM 9.2 MG/DL (8.5-10.1); CARBON DIOXIDE 31 MMOL/L (21-32); CHLORIDE 109 MMOL/L (98-107); CREATININE 0.9 MG/DL (0.55-1.30); POTASSIUM 3.9 MMOL/L (3.5-5.1); SODIUM 145 MMOL/L (136-145)
[2018-11-13 08:00] VITALS: BP 134/68
[2018-11-13] MEDS: Pantoprazole Inj IV SCH (08:36)
[2018-11-13] MEDS: Ascorbic Acid 500mg tab ORAL SCH (08:37)
[2018-11-13] MEDS: Heparin 5000 units/ml inj SUBQ SCH ×2 (08:41→21:04)
[2018-11-13] MEDS: Vancomycin 500mg/D5W 110ml IVPB SCH ×4 (09:59→21:02)
--- NOTE | 2018-11-13 10:47 | Surgery Progress Note ---
Surgery Progress Note Subjective Symptoms: improved Additional Comments no acute events comfortable appearing labs noted exam stable Objective Last 24 Hour Vital Signs Date Time Temp Pulse Resp B/P (MAP) Pulse Ox O2 Delivery O2 Flow Rate FiO2 11/13/18 08:57 100 Nasal Cannula 4.0 36 11/13/18 08:00 98.6 96 18 134/68 (90) 100 11/13/18 08:00 5.0 11/13/18 08:00 Nasal Cannula 5.0 11/13/18 04:00 87 11/13/18 04:00 Nasal Cannula 5.0 11/13/18 04:00 98.4 88 18 116/63 (80) 100 11/13/18 04:00 5.0 11/13/18 00:00 5.0 11/13/18 00:00 86 11/13/18 00:00 Nasal Cannula 5.0 11/13/18 00:00 98.9 87 18 104/51 (68) 100 11/12/18 20:00 5.0 11/12/18 20:00 98.2 93 24 104/56 (72) 96 11/12/18 20:00 Nasal Cannula 5.0 11/12/18 20:00 90 11/12/18 19:53 93 20 100 Nasal Cannula 4.0 36 11/12/18 19:43 97 Nasal Cannula 4.0 36 11/12/18 19:43 91 20 97 Nasal Cannula 4.0 36 11/12/18 17:55 97 Nasal Cannula 4.0 36 11/12/18 16:00 97.3 98 26 103/53 (70) 100 11/12/18 16:00 Venturi Mask 12.0 11/12/18 16:00 10.0 45 11/12/18 16:00 95 11/12/18 14:45 92 20 100 Venturi Mask 12.0 50 92 20 100 11/12/18 12:00 89 11/12/18 12:00 10.0 45 11/12/18 12:00 98.2 90 22 122/100 (107) 100 11/12/18 11:25 89 20 100 Venturi Mask 12.0 50 89 20 100 11/12/18 11:19 Venturi Mask 12.0 I&O Intake and Output 11/12/18 11/13/18 19:00 07:00 Intake Total 400 ml 1350 ml Output Total 700 ml 500 ml Balance -300 ml 850 ml Free Water 300 ml IV Total 200 ml Tube Feeding 100 ml 550 ml Other 300 ml 300 ml Output Urine Total 700 ml 500 ml Dressing: saturated Wound: clean Cardiovascular: RSR Respiratory: clear, decreased breath sounds Abdomen: soft, present bowel sounds Extremities: no edema, no tenderness, no cyanosis Laboratory Tests Test 11/13/18 07:00 White Blood Count 9.5 K/UL (4.8-10.8) Red Blood Count 2.84 M/UL (4.20-5.40) L Hemoglobin 9.0 G/DL (12.0-16.0) L Hematocrit 27.0 % (37.0-47.0) L Mean Corpuscular Volume 95 FL (80-99) Mean Corpuscular Hemoglobin 31.5 PG (27.0-31.0) H Mean Corpuscular Hemoglobin Concent 33.2 G/DL (32.0-36.0) Red Cell Distribution Width 12.6 % (11.6-14.8) Platelet Count 265 K/UL (150-450) # Mean Platelet Volume 7.7 FL (6.5-10.1) Neutrophils (%) (Auto) 82.4 % (45.0-75.0) H Lymphocytes (%) (Auto) 12.4 % (20.0-45.0) L Monocytes (%) (Auto) 3.5 % (1.0-10.0) Eosinophils (%) (Auto) 1.4 % (0.0-3.0) Basophils (%) (Auto) 0.3 % (0.0-2.0) Sodium Level 145 MMOL/L (136-145) Potassium Level 3.9 MMOL/L (3.5-5.1) Chloride Level 109 MMOL/L (98-107) H Carbon Dioxide Level 31 MMOL/L (21-32) Anion Gap 5 mmol/L (5-15) Blood Urea Nitrogen 25 mg/dL (7-18) H Creatinine 0.9 MG/DL (0.55-1.30) Estimat Glomerular Filtration Rate mL/min (>60) Glucose Level 273 MG/DL (74-106) H Calcium Level 9.2 MG/DL (8.5-10.1) Vancomycin Level Trough 12.1 ug/mL (5.0-12.0) H Plan Problems: (1) Severe sepsis Assessment & Plan: IV fluids IV abx trend labs will follow with recs wounds stable and not etiology of sepsis (2) Sacral decubitus ulcer, stage IV Assessment & Plan: Pt presented on admission with Full thickness stage 4 sacral pressure injury, Bilat foot drop. Sacral pressure (L)3.5cm x (W)3.5cm x (D)0.4cm. Base of wound mixed slough/ necrosis. Borders are macerated. Periwound is maroon in colour with additional shearing . Pt moans when area surrounding wound minimally palpated. L lateral malleolus black without erythema ,induration or fluctuance(L)1cm x (W) 1cm. Non-blanching erythema without fluctuance bilat heels. Tx.plan: Cleanse wound with Saline. Apply Therahoney. Apply Moisture Barrier Paste periwound. Cover with Optifoam drsg. Change every 3 days and prn. Apply Cavilon to L lateral malleolus and both heels. Cover each heels and Malleoli with Optifoam drsg. Change every 7 days and prn. APM/LOU Mattress overlay. Reposition at least every 2hours or as tolerated. Off-load heels with pillow. (3) G tube feedings Assessment & Plan: DAILY ESTIMATED NEEDS: Needs based on Wound, DM, sepsis 56kg 25-30 kcals/kg 5135-2783 total kcals 1.25-2 g protein/kg 70-112 g total protein 25-30 mL/kg 0179-0927 total fluid mLs NUTRITION DIAGNOSIS: 1) Swallowing difficulty R/T dysphagia, CVA as evidenced by PEG dependent. 2) Increased kcal and pro needs r/t wound healing, increased metabolic rate as evidenced by admitted w/ sacral wound per photo, pending evaluation, sepsis dx w/ elev wbc, febrile, elev LA, elev BGs (414, 466). . CURRENT TF:NPO ENTERAL NUTRITION RECOMMENDATIONS: Glucerna 1.2 @ 55ml/hr x24 hrs to provide 1320ml, 1584kcal, 79g prot, 1063ml free water - As medically appropriate, initiate Glucerna 1.2 @ 35ml/hr - Advance TF 10ml q 4-6 hrs as tolerated to goal rate - HOB over 30 degrees/ water flush per MD ADDITIONAL RECOMMENDATIONS: 1) Calibrated bedscale wt for accurate CBW- w/ added P200 mattress + pump 2) Rec long acting insulin for improved BG control once TF initiates -> BGs in the 300's + 400's 3) Wound healing: add Vit C 500mg QD + Gonsalo 1pkt BID 4) Monitor lytes daily, replete as needed (4) Electrolyte imbalance (5) Ventilator dependence Akhil Jackson Nov 13, 2018 10:47
[2018-11-13 12:00] VITALS: BP 124/74
--- NOTE | 2018-11-13 12:33 | Nephrology Progress Note ---
Assessment/Plan Problem List: (1) KEL (acute kidney injury) Assessment: resolved (2) Hypokalemia (3) Severe sepsis (4) Hypernatremia (5) Hypercalcemia (6) DM (diabetes mellitus) Assessment Sepsis Acute renal failure HyperNatremia Dehydration G Tube Low k DM OOC CVA Old jody Previous admission was intubated on vent, but extubated Plan antibiotics Levemir and SS insulin IV KCl and phos and mag as needed monitor renal parameters and lytes Pulm support correct lytes BS and BP check and monitor per consultants Subjective ROS Limited/Unobtainable: No Constitutional: Reports: malaise, weakness Objective Objective Last 24 Hour Vital Signs Date Time Temp Pulse Resp B/P (MAP) Pulse Ox O2 Delivery O2 Flow Rate FiO2 11/13/18 08:57 100 Nasal Cannula 4.0 36 11/13/18 08:00 98.6 96 18 134/68 (90) 100 11/13/18 08:00 5.0 11/13/18 08:00 Nasal Cannula 5.0 11/13/18 07:43 94 11/13/18 04:00 87 11/13/18 04:00 Nasal Cannula 5.0 11/13/18 04:00 98.4 88 18 116/63 (80) 100 11/13/18 04:00 5.0 11/13/18 00:00 5.0 11/13/18 00:00 86 11/13/18 00:00 Nasal Cannula 5.0 11/13/18 00:00 98.9 87 18 104/51 (68) 100 11/12/18 20:00 5.0 11/12/18 20:00 98.2 93 24 104/56 (72) 96 11/12/18 20:00 Nasal Cannula 5.0 11/12/18 20:00 90 11/12/18 19:53 93 20 100 Nasal Cannula 4.0 36 11/12/18 19:43 97 Nasal Cannula 4.0 36 11/12/18 19:43 91 20 97 Nasal Cannula 4.0 36 11/12/18 17:55 97 Nasal Cannula 4.0 36 11/12/18 16:00 97.3 98 26 103/53 (70) 100 11/12/18 16:00 Venturi Mask 12.0 11/12/18 16:00 10.0 45 11/12/18 16:00 95 11/12/18 14:45 92 20 100 Venturi Mask 12.0 50 92 20 100 Intake and Output 11/12/18 11/13/18 19:00 07:00 Intake Total 400 ml 1350 ml Output Total 700 ml 500 ml Balance -300 ml 850 ml Free Water 300 ml IV Total 200 ml Tube Feeding 100 ml 550 ml Other 300 ml 300 ml Output Urine Total 700 ml 500 ml Laboratory Tests 11/13/18 07:00: White Blood Count 9.5, Red Blood Count 2.84L, Hemoglobin 9.0L, Hematocrit 27.0L , Mean Corpuscular Volume 95, Mean Corpuscular Hemoglobin 31.5H, Mean Corpuscular Hemoglobin Concent 33.2, Red Cell Distribution Width 12.6, Platelet Count 265#, Mean Platelet Volume 7.7, Neutrophils (%) (Auto) 82.4H, Lymphocytes (%) (Auto) 12.4L, Monocytes (%) (Auto) 3.5, Eosinophils (%) (Auto) 1.4, Basophils (%) (Auto) 0.3, Sodium Level 145, Potassium Level 3.9, Chloride Level 109H, Carbon Dioxide Level 31, Anion Gap 5, Blood Urea Nitrogen 25H, Creatinine 0.9, Estimat Glomerular Filtration Rate , Glucose Level 273H, Calcium Level 9.2 , Vancomycin Level Trough 12.1H Height (Feet): 5 Height (Inches): 3.00 Weight (Pounds): 125 General Appearance: no apparent distress Neck: limited range of motion Cardiovascular: tachycardia Respiratory/Chest: decreased breath sounds Abdomen: distended Objective no change Dwayne Vernon MD Nov 13, 2018 12:33
--- NOTE | 2018-11-13 13:12 | Infectious Diseases Prog Note ---
Assessment/Plan Assessment/Plan ASSESSMENT AND PLAN: 1. sepsis, mrsa pna/pseudomonas pna, aspiration risk, chf/edema/atx, gertrudis uti , sacral wound, sirs, leukocytosis, fevers, bipap, sob/hypoxia, mary - abx changed to vancomycin, amikacin/cipro, flagyl - day # 7 abx total - monitor labs, cultures noted, blood cultures negative - monitor chest x-ray - bipap prn, breathing mask - felecia care - leukocytosis and fevers improved - wound care per surgery 2. Wound care per surgery and protocol. 3. Elevated creatinine with acute kidney injury. 4. Diabetes. 5. Hypertension. 6. Blood sugar and blood pressure treatment per primary consultants for diabetes and hypertension. 7. Anemia. 8. CVA. 9. Aspiration risk. 10. Aspiration precautions for CVA and aspiration risk. 11. Dysphagia. G-tube. 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 13. Dementia. 14. Encephalopathy. 15. History of sepsis and lactic acidosis. 16. No known drug allergies. 17. Family history is noncontributory. 18. Social history is negative. 19. MAR is noted. 20. Case was discussed with RN. 21. Continue treatment per primary consultants. 22. vre/mrsa colonization and isolation Subjective Constitutional: Denies: fever HEENT: Reports: congestion - less Respiratory: Reports: shortness of breath - less Gastrointestinal/Abdominal: Denies: nausea, vomiting, diarrhea Genitourinary: Reports: other - + taylor Allergies: Coded Allergies: No Known Allergies (Unverified , 02/04/17) Objective Vital Signs Last 24 Hour Vital Signs Date Time Temp Pulse Resp B/P (MAP) Pulse Ox O2 Delivery O2 Flow Rate FiO2 11/13/18 08:57 100 Nasal Cannula 4.0 36 11/13/18 08:00 98.6 96 18 134/68 (90) 100 11/13/18 08:00 5.0 11/13/18 08:00 Nasal Cannula 5.0 11/13/18 07:43 94 11/13/18 04:00 87 11/13/18 04:00 Nasal Cannula 5.0 11/13/18 04:00 98.4 88 18 116/63 (80) 100 11/13/18 04:00 5.0 11/13/18 00:00 5.0 11/13/18 00:00 86 11/13/18 00:00 Nasal Cannula 5.0 11/13/18 00:00 98.9 87 18 104/51 (68) 100 11/12/18 20:00 5.0 11/12/18 20:00 98.2 93 24 104/56 (72) 96 11/12/18 20:00 Nasal Cannula 5.0 11/12/18 20:00 90 11/12/18 19:53 93 20 100 Nasal Cannula 4.0 36 11/12/18 19:43 97 Nasal Cannula 4.0 36 11/12/18 19:43 91 20 97 Nasal Cannula 4.0 36 11/12/18 17:55 97 Nasal Cannula 4.0 36 11/12/18 16:00 97.3 98 26 103/53 (70) 100 11/12/18 16:00 Venturi Mask 12.0 11/12/18 16:00 10.0 45 11/12/18 16:00 95 11/12/18 14:45 92 20 100 Venturi Mask 12.0 50 92 20 100 Height (Feet): 5 Height (Inches): 3.00 Weight (Pounds): 125 General Appearance: no acute distress HEENT: normocephalic, atraumatic, anicteric Respiratory/Chest: crackles/rales, rhonchi - bilaterally Cardiovascular: normal rate, regular rhythm Abdomen: soft, non tender, no organomegaly Objective Chest x-ray - 11/08/18 - Basilar opacities likely represent atelectasis. Pneumonia not entirely excludable. The heart is enlarged. Mild pulmonary vascular congestion suspected and appears worse compared to the prior study. IMPRESSION: Suspected mild pulmonary vascular congestion, slightly worse. Basal atelectasis. Superimposed pneumonia not excluded Chest x-ray - 11/11/18 - FINDINGS: Lungs: Persistent increased interstitial markings. Unchanged mild bibasilar subcentimeter atelectasis versus infiltrates. Pleural space: Unremarkable. The costophrenic angles are sharp. No visible pneumothorax. Heart: Unremarkable. No cardiomegaly. Mediastinum: Unremarkable. Bones joints: Degenerative changes throughout the visualized spine and shoulder joints. Vasculature: Atherosclerotic calcifications within the aortic arch. Tubes, lines and devices: Telemetry leads overlie the thorax. IMPRESSION: 1. Persistent increased interstitial markings. This is nonspecific but may suggest pulmonary vascular congestion or a mild interstitial pneumonitis. 2. Unchanged mild bibasilar subsegmental atelectasis versus infiltrates. Chest x-ray - 11/12/18 Procedure: XRAY Chest 1v Indication: Shortness of breath Technique: One view of the chest Comparison: 11/10/2018 Findings: Bilateral interstitial and airspace disease is again demonstrated, with dense consolidation in the retrocardiac region. There are probably small bilateral pleural effusions. Findings are unchanged Impression: Unchanged, over 2 days, findings as above. Laboratory Tests Test 11/13/18 07:00 White Blood Count 9.5 K/UL (4.8-10.8) Red Blood Count 2.84 M/UL (4.20-5.40) L Hemoglobin 9.0 G/DL (12.0-16.0) L Hematocrit 27.0 % (37.0-47.0) L Mean Corpuscular Volume 95 FL (80-99) Mean Corpuscular Hemoglobin 31.5 PG (27.0-31.0) H Mean Corpuscular Hemoglobin Concent 33.2 G/DL (32.0-36.0) Red Cell Distribution Width 12.6 % (11.6-14.8) Platelet Count 265 K/UL (150-450) # Mean Platelet Volume 7.7 FL (6.5-10.1) Neutrophils (%) (Auto) 82.4 % (45.0-75.0) H Lymphocytes (%) (Auto) 12.4 % (20.0-45.0) L Monocytes (%) (Auto) 3.5 % (1.0-10.0) Eosinophils (%) (Auto) 1.4 % (0.0-3.0) Basophils (%) (Auto) 0.3 % (0.0-2.0) Sodium Level 145 MMOL/L (136-145) Potassium Level 3.9 MMOL/L (3.5-5.1) Chloride Level 109 MMOL/L (98-107) H Carbon Dioxide Level 31 MMOL/L (21-32) Anion Gap 5 mmol/L (5-15) Blood Urea Nitrogen 25 mg/dL (7-18) H Creatinine 0.9 MG/DL (0.55-1.30) Estimat Glomerular Filtration Rate mL/min (>60) Glucose Level 273 MG/DL (74-106) H Calcium Level 9.2 MG/DL (8.5-10.1) Vancomycin Level Trough 12.1 ug/mL (5.0-12.0) H Current Medications Medications (Trade) Dose Ordered Sig/Wayne Route PRN Reason Start Time Stop Time Status Last Admin Dose Admin Acetaminophen (Tylenol) 650 mg Q4H PRN ORAL fever 11/09/18 15:00 12/06/18 14:59 11/11/18 08:25 Acetaminophen (Tylenol) 650 mg Q4H PRN ORAL Mild Pain (Pain Scale 1-3) 11/09/18 15:00 12/08/18 14:59 Albuterol/ Ipratropium (Albuterol/ Ipratropium) 3 ml Q4H PRN HHN Shortness of Breath 11/09/18 15:00 11/13/18 14:59 11/10/18 13:44 Amikacin Protocol (Amikacin pharmacy to dose) 1 ea DAILY PRN MISC Per rx protocol 11/11/18 12:45 12/11/18 12:44 Amikacin Sulfate 800 mg/Sodium Chloride 113.2 ml @ 113.2 mls/ hr Q48H IV 11/13/18 15:00 11/18/18 14:59 Ascorbic Acid (Vitamin C) 500 mg DAILY ORAL 11/10/18 09:00 12/08/18 08:59 11/13/18 08:37 Ciprofloxacin 200 ml @ 200 mls/hr Q12HR IV 11/11/18 21:00 11/18/18 20:59 11/13/18 08:36 Dextrose (Dextrose 50%) 25 ml Q30M PRN IV Hypoglycemia 11/09/18 15:00 12/08/18 14:29 Dextrose (Dextrose 50%) 50 ml Q30M PRN IV Hypoglycemia 11/09/18 15:00 12/08/18 14:29 Heparin Sodium (Porcine) (Heparin 5000 units/ml) 5,000 units EVERY 12 HOURS SUBQ 11/11/18 21:00 12/11/18 20:59 11/13/18 08:41 Hydromorphone HCl (Dilaudid) 1 mg Q6H PRN IVP Moderate Pain (Pain Scale 4-6) 11/09/18 15:00 11/15/18 14:59 11/12/18 18:07 Hydromorphone HCl (Dilaudid) 2 mg Q6H PRN IVP Severe Pain (Pain Scale 7-10) 11/09/18 15:00 11/15/18 14:59 Insulin Aspart (NovoLOG) Q6HR SUBQ 11/10/18 12:00 12/06/18 20:59 11/13/18 11:59 Insulin Aspart (NovoLOG) 4 units NOVOTIAC SUBQ 11/13/18 11:50 12/13/18 11:49 11/13/18 12:49 Insulin Detemir (Levemir) 25 units BEDTIME SUBQ 11/13/18 21:00 12/10/18 20:59 Metronidazole (Flagyl) 500 mg EVERY 8 HOURS ORAL 11/11/18 14:00 11/18/18 13:59 11/13/18 05:57 Ondansetron HCl (Zofran) 4 mg Q6H PRN IVP Nausea & Vomiting 11/09/18 15:00 12/08/18 14:59 Pantoprazole (Protonix) 40 mg DAILY IV 11/10/18 09:00 12/07/18 08:59 11/13/18 08:36 Vancomycin HCl (Vanco rx to dose) 1 ea DAILY PRN MISC Per rx protocol 11/10/18 09:00 12/06/18 16:59 Vancomycin HCl 500 mg/Dextrose 110 ml @ 110 mls/hr Q12HR IVPB 11/13/18 09:00 11/18/18 08:59 11/13/18 09:59 Milton Valladares MD Nov 13, 2018 13:12
--- NOTE | 2018-11-13 13:25 | NUR ---
CASE MANAGEMENT: REVIEW 11/13/18 SI:RESP FAILURE; SEPTIC SHOCK, SEPSIS, PNA 98.6 96 18 134/68 100% NC 5L; FiO2 36 RBC 2.84; H/H 9.0/27.0 BG 273; BUN 25 IS: IV AMIKACIN Q48H IV CIPROFLOXACIN Q12 IV VANCOMYCIN QD/PRN IV PROTONIX QD FLAGYL PO Q8 IV DILAUDID Q6H/PRN HEPARIN SQ Q12HR LEVEMIR QD HS NOVOLOG SQ Q6/H ALBUTEROL HHN Q4/PRN : 2W STEPDOWN UNIT DCP: TO RETURN TO [facility] PLAN: CONSIDER HOSPICE CARE
--- NOTE | 2018-11-13 14:45 | Pulmonology Progress Note ---
Assessment/Plan Problems: (1) Respiratory failure with hypoxia and hypercapnia (2) SOB (shortness of breath) (3) Septic shock (4) G tube feedings (5) H/O: CVA (cerebrovascular accident) (6) Altered mental status (7) Electrolyte imbalance (8) Pneumonia (9) KEL (acute kidney injury) (10) Hypernatremia (11) HTN (hypertension) (12) UTI (urinary tract infection) (13) DM (diabetes mellitus) (14) Dehydration Assessment/Plan Optimize pulmonary hygiene/mobilize as tolerated Titrate down FiO2 to keep SaO2 > 90% BiPAP to PRN/qHS - ENCOURAGE NOCTURNAL USAGE HHN's Abx per ID Monitor volumes and renal function DVT Px: Hep SQ DNAR/DNI, continue to discuss GOC Subjective Allergies: Coded Allergies: No Known Allergies (Unverified , 02/04/17) Subjective AFVSS now on 4-5L No distress No report of coughing or SOB Objective Last 24 Hour Vital Signs Date Time Temp Pulse Resp B/P (MAP) Pulse Ox O2 Delivery O2 Flow Rate FiO2 11/13/18 12:00 5.0 11/13/18 11:34 92 11/13/18 08:57 100 Nasal Cannula 4.0 36 11/13/18 08:00 98.6 96 18 134/68 (90) 100 11/13/18 08:00 5.0 11/13/18 08:00 Nasal Cannula 5.0 11/13/18 07:43 94 11/13/18 04:00 87 11/13/18 04:00 Nasal Cannula 5.0 11/13/18 04:00 98.4 88 18 116/63 (80) 100 11/13/18 04:00 5.0 11/13/18 00:00 5.0 11/13/18 00:00 86 11/13/18 00:00 Nasal Cannula 5.0 11/13/18 00:00 98.9 87 18 104/51 (68) 100 11/12/18 20:00 5.0 11/12/18 20:00 98.2 93 24 104/56 (72) 96 11/12/18 20:00 Nasal Cannula 5.0 11/12/18 20:00 90 11/12/18 19:53 93 20 100 Nasal Cannula 4.0 36 11/12/18 19:43 97 Nasal Cannula 4.0 36 11/12/18 19:43 91 20 97 Nasal Cannula 4.0 36 11/12/18 17:55 97 Nasal Cannula 4.0 36 11/12/18 16:00 97.3 98 26 103/53 (70) 100 11/12/18 16:00 Venturi Mask 12.0 11/12/18 16:00 10.0 45 11/12/18 16:00 95 11/12/18 14:45 92 20 100 Venturi Mask 12.0 50 92 20 100 Intake and Output 11/12/18 11/13/18 19:00 07:00 Intake Total 400 ml 1350 ml Output Total 700 ml 500 ml Balance -300 ml 850 ml Free Water 300 ml IV Total 200 ml Tube Feeding 100 ml 550 ml Other 300 ml 300 ml Output Urine Total 700 ml 500 ml General Appearance: no acute distress, cachetic HEENT: normocephalic, atraumatic, anicteric, mucous membranes moist Respiratory/Chest: rhonchi Cardiovascular: normal peripheral pulses, normal rate, regular rhythm Abdomen: normal bowel sounds, soft, non tender, no organomegaly, non distended , no mass, other - GT Extremities: no cyanosis, no clubbing, no edema Laboratory Tests 11/13/18 07:00: White Blood Count 9.5, Red Blood Count 2.84L, Hemoglobin 9.0L, Hematocrit 27.0L , Mean Corpuscular Volume 95, Mean Corpuscular Hemoglobin 31.5H, Mean Corpuscular Hemoglobin Concent 33.2, Red Cell Distribution Width 12.6, Platelet Count 265#, Mean Platelet Volume 7.7, Neutrophils (%) (Auto) 82.4H, Lymphocytes (%) (Auto) 12.4L, Monocytes (%) (Auto) 3.5, Eosinophils (%) (Auto) 1.4, Basophils (%) (Auto) 0.3, Sodium Level 145, Potassium Level 3.9, Chloride Level 109H, Carbon Dioxide Level 31, Anion Gap 5, Blood Urea Nitrogen 25H, Creatinine 0.9, Estimat Glomerular Filtration Rate , Glucose Level 273H, Calcium Level 9.2 , Vancomycin Level Trough 12.1H Current Medications Medications (Trade) Dose Ordered Sig/Wayne Route PRN Reason Start Time Stop Time Status Last Admin Dose Admin Acetaminophen (Tylenol) 650 mg Q4H PRN ORAL fever 11/09/18 15:00 12/06/18 14:59 11/11/18 08:25 Acetaminophen (Tylenol) 650 mg Q4H PRN ORAL Mild Pain (Pain Scale 1-3) 11/09/18 15:00 12/08/18 14:59 Albuterol/ Ipratropium (Albuterol/ Ipratropium) 3 ml Q4H PRN HHN Shortness of Breath 11/09/18 15:00 11/13/18 14:59 11/10/18 13:44 Amikacin Protocol (Amikacin pharmacy to dose) 1 ea DAILY PRN MISC Per rx protocol 11/11/18 12:45 12/11/18 12:44 Amikacin Sulfate 800 mg/Sodium Chloride 113.2 ml @ 113.2 mls/ hr Q48H IV 11/13/18 15:00 11/18/18 14:59 Ascorbic Acid (Vitamin C) 500 mg DAILY ORAL 11/10/18 09:00 12/08/18 08:59 11/13/18 08:37 Ciprofloxacin 200 ml @ 200 mls/hr Q12HR IV 11/11/18 21:00 11/18/18 20:59 11/13/18 08:36 Dextrose (Dextrose 50%) 25 ml Q30M PRN IV Hypoglycemia 11/09/18 15:00 12/08/18 14:29 Dextrose (Dextrose 50%) 50 ml Q30M PRN IV Hypoglycemia 11/09/18 15:00 12/08/18 14:29 Heparin Sodium (Porcine) (Heparin 5000 units/ml) 5,000 units EVERY 12 HOURS SUBQ 11/11/18 21:00 12/11/18 20:59 11/13/18 08:41 Hydromorphone HCl (Dilaudid) 1 mg Q6H PRN IVP Moderate Pain (Pain Scale 4-6) 11/09/18 15:00 11/15/18 14:59 11/12/18 18:07 Hydromorphone HCl (Dilaudid) 2 mg Q6H PRN IVP Severe Pain (Pain Scale 7-10) 11/09/18 15:00 11/15/18 14:59 Insulin Aspart (NovoLOG) Q6HR SUBQ 11/10/18 12:00 12/06/18 20:59 11/13/18 11:59 Insulin Aspart (NovoLOG) 4 units NOVOTIAC SUBQ 11/13/18 11:50 12/13/18 11:49 11/13/18 12:49 Insulin Detemir (Levemir) 25 units BEDTIME SUBQ 11/13/18 21:00 12/10/18 20:59 Metronidazole (Flagyl) 500 mg EVERY 8 HOURS ORAL 11/11/18 14:00 11/18/18 13:59 11/13/18 14:20 Ondansetron HCl (Zofran) 4 mg Q6H PRN IVP Nausea & Vomiting 11/09/18 15:00 12/08/18 14:59 Pantoprazole (Protonix) 40 mg DAILY IV 11/10/18 09:00 12/07/18 08:59 11/13/18 08:36 Vancomycin HCl (Vanco rx to dose) 1 ea DAILY PRN MISC Per rx protocol 11/10/18 09:00 12/06/18 16:59 Vancomycin HCl 500 mg/Dextrose 110 ml @ 110 mls/hr Q12HR IVPB 11/13/18 09:00 11/18/18 08:59 11/13/18 09:59 Bimal Milner MD Nov 13, 2018 14:45
[2018-11-13] MEDS ORDERED: Amikacin 800 MG in NS 110 ML IV SCH (15:00)
--- NOTE | 2018-11-13 15:10 | NUR ---
RD ASSESSMENT & RECOMMENDATIONS SEE CARE ACTIVITY FOR COMPLETE ASSESSMENT DAILY ESTIMATED NEEDS: Needs based on Wound, DM, sepsis 56kg 25-30 kcals/kg 6173-3652 total kcals 1.25-2 g protein/kg 70-112 g total protein 25-30 mL/kg 2508-6070 total fluid mLs NUTRITION DIAGNOSIS: 1) Swallowing difficulty R/T dysphagia, CVA as evidenced by PEG dependent. 2) Increased kcal and pro needs r/t wound healing, increased metabolic rate as evidenced by admitted w/ stage 4 sacral wound, sepsis dx w/ elev wbc-> now wnl, now afebrile, elev LA -> now wnl, elev BGs (414, 466-> now in 200's + 300's). CURRENT TF:Glucerna 1.5 @ 55ml/hr x 24 hrs ENTERAL NUTRITION RECOMMENDATIONS: LOWER RATE -> Glucerna 1.5 @ 45ml/hr x 24 hrs to provide 1080ml, 1620kcal, 89g prot, 820ml free water - LOWER TF TO 45ML/HR X 24 HRS -> meets 100% est kcal/prot needs, for improved BG control - HOB over 30 degrees/ water flush per MD ADDITIONAL RECOMMENDATIONS: 1) Calibrated bedscale wt for accurate CBW- w/ added P200 mattress + pump 2) Monitor BGs closely: REC TO LOWER TF RATE ABOVE FOR IMPROVED BGS 3) Wound healing: Continue Vit C 500mg QD add ZnSO4 220 mg daily x10 days add Gonsalo 1pkt BID 4) Monitor lytes daily, replete as needed .
[2018-11-13 16:00] VITALS: BP 139/56
[2018-11-13] MEDS ORDERED: Acetaminophen 650mg/20.3ml GT PRN ×2 (18:00)
--- NOTE | 2018-11-13 19:14 | NUR ---
HAND-OFF: Report given to FELIX Bolivar.
--- NOTE | 2018-11-13 19:15 | NUR ---
NURSE NOTES: Report received from FELIX Lemus. Observed pt lying in the bed, open eyes but not tracking. SR on property assessment monitor. NC 3L with no SOB. GT intact running Glucerna 1.5 at 55cc/hr. IV on R H 20G, R AC 20G, TKO, asymptomatic. On purewick draining ok. No acute distress noted at this time. Bed in the lowest position. Side rails up x3. Will continue to monitor.
[2018-11-13] MEDS: Albuterol/Ipratropium 3ml neb HHN SCH (19:19)
[2018-11-13 20:00] VITALS: BP 125/58
--- NOTE | 2018-11-13 20:34 | NUR ---
RESPIRATORY NOTE: Placed on Venturi mask FiO2 45%, due to desaturation 89-91%. RN Manuel aware. no s/s of respiratory distress noted. will continue to monitor pt.
--- NOTE | 2018-11-13 20:35 | NUR ---
NURSE NOTES: noted pt de-saturating at 89-90%. placed on venturi mask at 45%, saturating at 100% noted. Will continue to monitor.
[2018-11-13] MEDS ORDERED: Levemir Flexpen SUBQ SCH (21:00)
[2018-11-13] MEDS ORDERED: Atorvastatin 20mg tab GT SCH (21:00)
--- NOTE | 2018-11-13 21:00 | NUR ---
NURSE NOTES: Noted oozing on R lower leg. MD notified and no new order. Covered with suresite. Will continue to monitor.
[2018-11-13] MEDS: metroNIDAZOLE 500mg tab GT SCH (21:02)
--- NOTE | 2018-11-13 21:12 | General Progress Note ---
Assessment/Plan Problem List: (1) Renal insufficiency ICD Codes: N28.9 - Disorder of kidney and ureter, unspecified; R65.20 - Severe sepsis without septic shock SNOMED: 743178198, 059444308 (2) Severe sepsis ICD Codes: A41.9 - Sepsis, unspecified organism; R65.20 - Severe sepsis without septic shock SNOMED: 42473019 (3) Septic shock ICD Codes: A41.9 - Sepsis, unspecified organism; R65.21 - Severe sepsis with septic shock SNOMED: 57694463 (4) Sacral decubitus ulcer, stage IV ICD Codes: L89.154 - Pressure ulcer of sacral region, stage 4 SNOMED: 936809780, 597349143 (5) SOB (shortness of breath) ICD Codes: R06.02 - Shortness of breath SNOMED: 454397717 (6) Respiratory failure with hypoxia and hypercapnia ICD Codes: J96.91 - Respiratory failure, unspecified with hypoxia; J96.92 - Respiratory failure, unspecified with hypercapnia SNOMED: 58515706 (7) G tube feedings ICD Codes: Z93.1 - Gastrostomy status SNOMED: 421762507, 056838410, 161338084 (8) Electrolyte imbalance ICD Codes: E87.8 - Other disorders of electrolyte and fluid balance, not elsewhere classified SNOMED: 146230296 (9) Altered mental status ICD Codes: R41.82 - Altered mental status, unspecified SNOMED: 945702252 (10) H/O: CVA (cerebrovascular accident) ICD Codes: Z86.73 - Personal history of transient ischemic attack (TIA), and cerebral infarction without residual deficits SNOMED: 599537528 (11) Pneumonia ICD Codes: J18.9 - Pneumonia, unspecified organism SNOMED: 535963744 Qualifiers: Qualified Codes: J18.1 - Lobar pneumonia, unspecified organism (12) KEL (acute kidney injury) ICD Codes: N17.9 - Acute kidney failure, unspecified SNOMED: 9936407, 45664060 (13) Ventilator dependence ICD Codes: Z99.11 - Dependence on respirator [ventilator] status SNOMED: 395011114 (14) Endotracheally intubated ICD Codes: Z97.8 - Presence of other specified devices SNOMED: 569380287 (15) Hypokalemia ICD Codes: E87.6 - Hypokalemia SNOMED: 04343749 (16) Hypercalcemia ICD Codes: E83.52 - Hypercalcemia SNOMED: 10886444 (17) Abscess ICD Codes: L02.91 - Cutaneous abscess, unspecified SNOMED: 978605768 (18) Rash ICD Codes: R21 - Rash and other nonspecific skin eruption SNOMED: 600250549 (19) Hypernatremia ICD Codes: E87.0 - Hyperosmolality and hypernatremia SNOMED: 15292618 (20) HTN (hypertension) ICD Codes: I10 - Essential (primary) hypertension SNOMED: 49183926 (21) Elevated troponin ICD Codes: R74.8 - Abnormal levels of other serum enzymes SNOMED: 864266700, 994337980 (22) Encounter for PEG (percutaneous endoscopic gastrostomy) ICD Codes: Z43.1 - Encounter for attention to gastrostomy SNOMED: 421070750, 757482067 (23) MRSA infection ICD Codes: A49.02 - Methicillin resistant Staphylococcus aureus infection, unspecified site SNOMED: 914409084 (24) PNA (pneumonia) ICD Codes: J18.9 - Pneumonia, unspecified organism SNOMED: 129817792 (25) Hyperglycemia due to type 2 diabetes mellitus ICD Codes: E11.65 - Type 2 diabetes mellitus with hyperglycemia SNOMED: 36780624, 962037716349478 (26) Upper sacral area unstageable pressure ulcer (27) Large ischemic R MCA stroke (28) UTI (urinary tract infection) ICD Codes: N39.0 - Urinary tract infection, site not specified SNOMED: 42653970 (29) Perineal area gertrudis rashes extending to left and right buttocks (30) Right lateral malleolus stage I pressure ulcer (31) Respiratory failure ICD Codes: J96.90 - Respiratory failure, unspecified, unspecified whether with hypoxia or hypercapnia SNOMED: 612745673 (32) DM (diabetes mellitus) ICD Codes: E11.9 - Type 2 diabetes mellitus without complications SNOMED: 84518183 (33) Hypernatremia ICD Codes: E87.0 - Hyperosmolality and hypernatremia SNOMED: 404511655 (34) Lactic acid acidosis ICD Codes: E87.2 - Acidosis SNOMED: 61574055 (35) Toxic metabolic encephalopathy ICD Codes: G92 - Toxic encephalopathy SNOMED: 945512910 (36) Dehydration ICD Codes: E86.0 - Dehydration SNOMED: 41169873 (37) Sepsis ICD Codes: A41.9 - Sepsis, unspecified organism SNOMED: 57137295 Status: progressing Assessment/Plan: Tami Doe is a 78 year old female who was undergoing antibiotic therapy for PNA with meropenem at [facility] sent in to the hospital with fever and desaturation. Found to have leukocytosis, fevers, Lactate 4.2. Admitted for septic shock due to pneumonia vs. UTI, acute metabolic encephalopathy, acute hypoxic hypercapnic respiratory failure, severe dehydration, hypernatremia and KEL. Upgraded to ICU due to worsening respiratory failure, now DNR/DNI after family discussion. Improved, now on nasal cannula. # Resolving septic shock due to pseudomonas PNA, fungal UTI. doubt infected sacral decubitus. -S/p fluconazole, meropenem, and polymyxin per ID, now on amikacin and continues on vancomycin per ID -ID consult. Dr. Solis, appreciate recs -Blood cultures negative. Urine growing yeast. sputum culture with pseudomonas and MRSA -Lactate trended down to 1. -Leukocytosis resolved - D/C'ed IVF given patient with evidence of fluid overload on exam and rising BNP and PVC on CXR # Acute hypoxic hypercarbic respiratory failure. -Upgraded to ICU, now transferred down to stepdown. Can transfer to telemetry/ med surge given patient is only on nasal cannula - Continue BIPAP PRN. Currently weaned to ventimask 50% FiO2 12L/min, tolerating #Toxic metabolic encephalopathy. Treat sepsis and respiratory failure - back to baseline per son # Severe dehydration and hypernatremia. Continue Free water via PEG . Hypernatremia resolved on labs today # History of CVA: Hold antihypertensives given sepsis and borderline BP. # Sacral decub. Dr. Jackson, wound care consult # DM II with hyperglycemia. - Increase levemir to 25 units QHS - Increase Novolog to 4 units TIDAC - Continue accuchecks and SSI # KEL. pre-renal due to severe dehydration. avoid nephrotoxic medications. Nephrology consult: Dr. Vernon. KEL resolved. # Troponin elevation. No acute ekg changes, demand ischemia. # Thrombocytopenia. Due to sepsis. Platelet trended down yesterday and heparin held, improved today, will resume for now # Moderate protein calorie malnutrition. Resumed feeds via PEG, tolerating. Aspiration precautions. High aspiration risk # hypokalemia repleted # Pain control: Dilaudid prn vte ppx: heparin subq GI ppx: IV pantoprazole Diet: resumed peg feeds, free water via peg Code status: DNR/DNI, prognosis guarded Discussed with RN and son. I spent 37 minutes on this patient's case including > 50% time dedicated to counseling and/or coordination of care . I spent an additional 35 minutes on reviewing medical records including consultants notes, labs, imaging, prior records. Subjective Date patient seen: Nov 13, 2018 ROS Limited/Unobtainable: Yes - patient nonverbal at baseline Allergies: Coded Allergies: No Known Allergies (Unverified , 02/04/17) Subjective NO acute events overnight per nursing. Per discussion with son patient is at her baseline. 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 No new neurologic changes. further history unable to be obtained as patient nonverbal. titrated down to 2L NC. No BIPAP needed overnight Objective Last 24 Hour Vital Signs Date Time Temp Pulse Resp B/P (MAP) Pulse Ox O2 Delivery O2 Flow Rate FiO2 11/13/18 20:30 10.0 45 11/13/18 20:00 Nasal Cannula 5.0 11/13/18 20:00 98.8 95 20 125/58 (80) 100 11/13/18 20:00 94 11/13/18 20:00 3.0 11/13/18 19:24 99 Nasal Cannula 3.0 32 11/13/18 19:20 94 20 99 Nasal Cannula 3.0 32 94 20 99 11/13/18 16:00 Nasal Cannula 5.0 11/13/18 16:00 3.0 11/13/18 16:00 98.2 103 20 139/56 (83) 100 11/13/18 15:26 104 11/13/18 12:00 99.5 95 20 124/74 (91) 100 11/13/18 12:00 5.0 11/13/18 12:00 Nasal Cannula 5.0 11/13/18 11:34 92 11/13/18 08:57 100 Nasal Cannula 4.0 36 11/13/18 08:00 98.6 96 18 134/68 (90) 100 11/13/18 08:00 5.0 11/13/18 08:00 Nasal Cannula 5.0 11/13/18 07:43 94 11/13/18 04:00 87 11/13/18 04:00 Nasal Cannula 5.0 11/13/18 04:00 98.4 88 18 116/63 (80) 100 11/13/18 04:00 5.0 11/13/18 00:00 5.0 11/13/18 00:00 86 11/13/18 00:00 Nasal Cannula 5.0 11/13/18 00:00 98.9 87 18 104/51 (68) 100 Intake and Output 11/12/18 11/13/18 19:00 07:00 Intake Total 400 ml 1405 ml Output Total 700 ml 500 ml Balance -300 ml 905 ml Free Water 300 ml IV Total 200 ml Tube Feeding 100 ml 605 ml Other 300 ml 300 ml Output Urine Total 700 ml 500 ml Laboratory Tests 11/13/18 07:00: White Blood Count 9.5, Red Blood Count 2.84L, Hemoglobin 9.0L, Hematocrit 27.0L , Mean Corpuscular Volume 95, Mean Corpuscular Hemoglobin 31.5H, Mean Corpuscular Hemoglobin Concent 33.2, Red Cell Distribution Width 12.6, Platelet Count 265#, Mean Platelet Volume 7.7, Neutrophils (%) (Auto) 82.4H, Lymphocytes (%) (Auto) 12.4L, Monocytes (%) (Auto) 3.5, Eosinophils (%) (Auto) 1.4, Basophils (%) (Auto) 0.3, Sodium Level 145, Potassium Level 3.9, Chloride Level 109H, Carbon Dioxide Level 31, Anion Gap 5, Blood Urea Nitrogen 25H, Creatinine 0.9, Estimat Glomerular Filtration Rate , Glucose Level 273H, Calcium Level 9.2 , Vancomycin Level Trough 12.1H Height (Feet): 5 Height (Inches): 3.00 Weight (Pounds): 125 General Appearance: WD/WN, no apparent distress, alert, confused, other - looking up and to the right (baseline per son) EENT: PERRL/EOMI Neck: non-tender, normal alignment, supple Cardiovascular: normal peripheral pulses, normal rate Respiratory/Chest: chest wall non-tender, other - coarse breath sounds on right base. No wheezing. No use of accessory muscles Abdomen: normal bowel sounds, soft, other - G tube in place. Surrounding area is C/D/I. No discharge Extremities: other - No LE edema bilaterally Neurologic: alert, other - withdraws to painful stimuli in UE and LE bilatearlly. No purposeful movements. Does not follow commands Skin: normal pigmentation, warm/dry, other - stage IV sacral wound, clean/dry. no drainage Parviz Kwok D.O. Nov 13, 2018 21:12
--- NOTE | 2018-11-13 23:00 | NUR ---
NURSE NOTES: R AC IV line noted to be occluded and taken out. New IV on L W 22G, TKO.
[2018-11-14] VITALS: BP 122/63
[2018-11-14] MEDS: Albuterol/Ipratropium 3ml neb HHN SCH ×4 (00:12→19:13)
[2018-11-14 04:00] VITALS: BP 118/57
[2018-11-14] MEDS: metroNIDAZOLE 500mg tab GT SCH ×3 (05:33→21:08)
[2018-11-14] MEDS: NovoLOG Insulin Flexpen SUBQ SCH ×7 (05:33→23:22)
[2018-11-14 06:01] LABS: PHOSPHORUS 3.6 MG/DL (2.5-4.9)
--- NOTE | 2018-11-14 06:49 | NUR ---
NURSE NOTES: Left a message to regarding Mg 1.5 and awaiting call back.
--- NOTE | 2018-11-14 07:34 | NUR ---
HAND-OFF: Report given to FELIX Smith. No distress noted at this time.
--- NOTE | 2018-11-14 07:35 | NUR ---
NURSE NOTES: Received patient from FELIX Jackson. Patient eyes open at this time. Patient does not move extremities and only gazes to the right. Patient does not track movement and does not speak at this time. Patient on venturi mask 40% FiO2. Patient had signs of SOB during the night. Will continue to monitor. Patient has gastrostomy tube that is patent, asymptomatic, and running glucerna 1.5 at 55mL/hr at this time. No residual noted. Patient has right foot blister, right heel DTI, and sacral full thickness. pressure ulcer. Patient has right hand 20G PIV and left wrist 22G PIV. Both patent and saline locked at this time. Patient has low magnesium of 1.5 this morning. Will follow up with Dr Vernon when he rounds on the patient. Patient has an order to transfer to telemetry. Will follow up when bed available. Will continue to monitor and turn every two hours. Oral care and repositioning provided at this time.
[2018-11-14 08:00] VITALS: BP 122/63
[2018-11-14] MEDS ORDERED: Ascorbic Acid 500mg tab GT SCH (09:00)
[2018-11-14] MEDS ORDERED: Aspirin Baby 81mg GT SCH (09:00)
[2018-11-14] MEDS: Vancomycin 500mg/D5W 110ml IVPB SCH ×2 (09:18)
[2018-11-14] MEDS: Heparin 5000 units/ml inj SUBQ SCH ×2 (09:21→20:59)
--- NOTE | 2018-11-14 09:59 | Pulmonology Progress Note ---
Assessment/Plan Problems: (1) Respiratory failure with hypoxia and hypercapnia (2) SOB (shortness of breath) (3) Septic shock (4) G tube feedings (5) H/O: CVA (cerebrovascular accident) (6) Altered mental status (7) Electrolyte imbalance (8) Pneumonia (9) KEL (acute kidney injury) (10) Hypernatremia (11) HTN (hypertension) (12) UTI (urinary tract infection) (13) DM (diabetes mellitus) (14) Dehydration Assessment/Plan Optimize pulmonary hygiene/mobilize as tolerated Titrate down FiO2 to keep SaO2 > 90% BiPAP to PRN/qHS - ENCOURAGE NOCTURNAL USAGE HHN's Abx per ID Monitor volumes and renal function DVT Px: Hep SQ DNAR/DNI, continue to discuss GOC Subjective Allergies: Coded Allergies: No Known Allergies (Unverified , 02/04/17) Subjective AFVSS O2 needs stable No distress No report of coughing or SOB Objective Last 24 Hour Vital Signs Date Time Temp Pulse Resp B/P (MAP) Pulse Ox O2 Delivery O2 Flow Rate FiO2 11/14/18 08:00 8.0 40 11/14/18 08:00 98.4 94 20 122/63 (82) 100 11/14/18 06:46 86 18 100 Venturi Mask 8.0 40 87 20 100 11/14/18 06:45 100 Venturi Mask 8.0 40 11/14/18 04:00 77 11/14/18 04:00 8.0 40 11/14/18 04:00 97.5 80 20 118/57 (77) 100 11/14/18 04:00 Venturi Mask 8.0 11/14/18 00:13 94 20 99 Venturi Mask 10.0 45 90 22 99 11/14/18 00:00 Venturi Mask 8.0 11/14/18 00:00 97.9 95 16 122/63 (82) 100 11/14/18 00:00 87 11/14/18 00:00 8.0 40 11/13/18 20:30 10.0 45 11/13/18 20:00 Nasal Cannula 5.0 11/13/18 20:00 98.8 95 20 125/58 (80) 100 11/13/18 20:00 94 11/13/18 20:00 3.0 11/13/18 19:24 99 Nasal Cannula 3.0 32 11/13/18 19:20 94 20 99 Nasal Cannula 3.0 32 94 20 99 11/13/18 16:00 Nasal Cannula 5.0 11/13/18 16:00 3.0 11/13/18 16:00 98.2 103 20 139/56 (83) 100 11/13/18 15:26 104 11/13/18 12:00 99.5 95 20 124/74 (91) 100 11/13/18 12:00 5.0 11/13/18 12:00 Nasal Cannula 5.0 11/13/18 11:34 92 Intake and Output 11/13/18 11/14/18 18:59 06:59 Intake Total 1683.2 ml 1570 ml Output Total 600 ml 500 ml Balance 1083.2 ml 1070 ml Free Water 300 ml 300 ml IV Total 423.2 ml 310 ml Tube Feeding 660 ml 660 ml Other 300 ml 300 ml Output Urine Total 600 ml 500 ml # Bowel Movements 1 General Appearance: no acute distress, cachetic HEENT: normocephalic, atraumatic, anicteric, mucous membranes moist Respiratory/Chest: rhonchi Cardiovascular: normal peripheral pulses, normal rate, regular rhythm Abdomen: normal bowel sounds, soft, non tender, no organomegaly, non distended , no mass, other - GT Extremities: no cyanosis, no clubbing, no edema Laboratory Tests 11/14/18 03:25: Phosphorus Level 3.6, Magnesium Level 1.5L Current Medications Medications (Trade) Dose Ordered Sig/Wayne Route PRN Reason Start Time Stop Time Status Last Admin Dose Admin Acetaminophen (Tylenol) 650 mg Q4H PRN GT fever 11/13/18 18:00 12/06/18 14:59 Acetaminophen (Tylenol) 650 mg Q4H PRN GT Mild Pain (Pain Scale 1-3) 11/13/18 18:00 12/08/18 14:59 Albuterol/ Ipratropium (Albuterol/ Ipratropium) 3 ml Q6HRT HHN 11/13/18 19:00 11/18/18 18:59 11/14/18 06:45 Amikacin Protocol (Amikacin pharmacy to dose) 1 ea DAILY PRN MISC Per rx protocol 11/11/18 12:45 12/11/18 12:44 Amikacin Sulfate 800 mg/Sodium Chloride 113.2 ml @ 113.2 mls/ hr Q48H IV 11/13/18 15:00 11/18/18 14:59 11/13/18 15:00 Ascorbic Acid (Vitamin C) 500 mg DAILY GT 11/14/18 09:00 12/08/18 08:59 11/14/18 09:19 Aspirin (ASA) 81 mg DAILY GT 11/14/18 09:00 12/14/18 08:59 11/14/18 09:19 Atorvastatin Calcium (Lipitor) 40 mg BEDTIME GT 11/13/18 21:00 12/13/18 20:59 11/13/18 21:02 Ciprofloxacin 200 ml @ 200 mls/hr Q12HR IV 11/11/18 21:00 11/18/18 20:59 11/14/18 09:18 Dextrose (Dextrose 50%) 25 ml Q30M PRN IV Hypoglycemia 11/09/18 15:00 12/08/18 14:29 Dextrose (Dextrose 50%) 50 ml Q30M PRN IV Hypoglycemia 11/09/18 15:00 12/08/18 14:29 Famotidine (Pepcid) 20 mg BID GT 11/13/18 18:00 12/13/18 17:59 11/14/18 09:19 Furosemide (Lasix) 20 mg DAILY GT 11/14/18 09:00 12/14/18 08:59 11/14/18 09:19 Heparin Sodium (Porcine) (Heparin 5000 units/ml) 5,000 units EVERY 12 HOURS SUBQ 11/11/18 21:00 12/11/18 20:59 11/14/18 09:21 Hydromorphone HCl (Dilaudid) 1 mg Q6H PRN IVP Moderate Pain (Pain Scale 4-6) 11/09/18 15:00 11/15/18 14:59 11/12/18 18:07 Hydromorphone HCl (Dilaudid) 2 mg Q6H PRN IVP Severe Pain (Pain Scale 7-10) 11/09/18 15:00 11/15/18 14:59 Insulin Aspart (NovoLOG) Q6HR SUBQ 11/10/18 12:00 12/06/18 20:59 11/14/18 05:33 Insulin Aspart (NovoLOG) 4 units NOVOTIAC SUBQ 11/13/18 11:50 12/13/18 11:49 11/14/18 05:34 Insulin Detemir (Levemir) 25 units BEDTIME SUBQ 11/13/18 21:00 12/10/18 20:59 11/13/18 21:04 Magnesium Sulfate 100 ml @ 100 mls/hr Q1H IVPB 11/14/18 09:30 11/14/18 13:29 Metronidazole (Flagyl) 500 mg EVERY 8 HOURS GT 11/13/18 22:00 11/18/18 13:59 11/14/18 05:33 Ondansetron HCl (Zofran) 4 mg Q6H PRN IVP Nausea & Vomiting 11/09/18 15:00 12/08/18 14:59 Vancomycin HCl (Vanco rx to dose) 1 ea DAILY PRN MISC Per rx protocol 11/10/18 09:00 12/06/18 16:59 Vancomycin HCl 500 mg/Dextrose 110 ml @ 110 mls/hr Q12HR IVPB 11/13/18 09:00 11/18/18 08:59 11/14/18 09:18 Bimal Milner MD Nov 14, 2018 09:59
[2018-11-14 12:00] VITALS: BP 117/60
--- NOTE | 2018-11-14 12:00 | NUR ---
NURSE NOTES: Patient sleeping at this time. Patient showing no sign of respiratory distress. Patient placed on 2L NC humidified per Dr Milner. Will continue to monitor. Gastrostomy tube remains patent, asymptomatic, and is running glucerna 1.5 at 55mL/hr at this time. No residual noted. G tube flushed at this time. All wounds observed and redressed by wound care nurse. Right hand 20G PIV and left wrist 22G PIV remain intact and patent and saline locked at this time. Low serum magnesium covered with 4 grams Magnesium sulfate IV. 3 of 4 bags given. Will continue to administer and monitor. Patient repositioned and oral care performed at this time. Bed in low position with bed alarm on and call light in reach.
--- NOTE | 2018-11-14 13:03 | NUR ---
CASE MANAGEMENT: REVIEW 11/14/18 SI:RESP FAILURE; SEPTIC SHOCK, SEPSIS, PNA 98.4 94 20 122/63 100% VENTURI ; FiO2 36 MG 1.5 IS: IV MG SULFATE @100/HR LASIX GT QD IV AMIKACIN Q48H IV CIPROFLOXACIN Q12 IV VANCOMYCIN Q12HR IV PROTONIX QD FLAGYL GT Q8 IV DILAUDID Q6H/PRN HEPARIN SQ Q12HR LEVEMIR QD HS NOVOLOG SQ Q6/H ALBUTEROL HHN Q4/PRN ASA GT QD LIPITOR GT HS : 2W STEPDOWN UNIT DCP: TO RETURN TO [facility] PLAN: CONSIDER HOSPICE CARE
--- NOTE | 2018-11-14 13:32 | Nephrology Progress Note ---
Assessment/Plan Problem List: (1) KEL (acute kidney injury) Assessment: resolved (2) Hypokalemia (3) Severe sepsis (4) Hypernatremia (5) Hypercalcemia (6) DM (diabetes mellitus) Assessment Sepsis Acute renal failure HyperNatremia Dehydration G Tube Low k DM OOC CVA [place] Previous admission was intubated on vent, but extubated Plan antibiotics Levemir and SS insulin IV KCl and phos and mag as needed monitor renal parameters and lytes Pulm support correct lytes BS and BP check and monitor per consultants Subjective ROS Limited/Unobtainable: Yes Objective Objective Last 24 Hour Vital Signs Date Time Temp Pulse Resp B/P (MAP) Pulse Ox O2 Delivery O2 Flow Rate FiO2 11/14/18 12:47 97 20 100 Nasal Cannula 2.0 28 93 22 96 11/14/18 08:13 88 11/14/18 08:00 8.0 40 11/14/18 08:00 98.4 94 20 122/63 (82) 100 11/14/18 06:46 86 18 100 Venturi Mask 8.0 40 87 20 100 11/14/18 06:45 100 Venturi Mask 8.0 40 11/14/18 04:00 77 11/14/18 04:00 8.0 40 11/14/18 04:00 97.5 80 20 118/57 (77) 100 11/14/18 04:00 Venturi Mask 8.0 11/14/18 00:13 94 20 99 Venturi Mask 10.0 45 90 22 99 11/14/18 00:00 Venturi Mask 8.0 11/14/18 00:00 97.9 95 16 122/63 (82) 100 11/14/18 00:00 87 11/14/18 00:00 8.0 40 11/13/18 20:30 10.0 45 11/13/18 20:00 Nasal Cannula 5.0 11/13/18 20:00 98.8 95 20 125/58 (80) 100 11/13/18 20:00 94 11/13/18 20:00 3.0 11/13/18 19:24 99 Nasal Cannula 3.0 32 11/13/18 19:20 94 20 99 Nasal Cannula 3.0 32 94 20 99 11/13/18 16:00 Nasal Cannula 5.0 11/13/18 16:00 3.0 11/13/18 16:00 98.2 103 20 139/56 (83) 100 11/13/18 15:26 104 Intake and Output 11/13/18 11/14/18 19:00 07:00 Intake Total 1683.2 ml 1570 ml Output Total 600 ml 500 ml Balance 1083.2 ml 1070 ml Free Water 300 ml 300 ml IV Total 423.2 ml 310 ml Tube Feeding 660 ml 660 ml Other 300 ml 300 ml Output Urine Total 600 ml 500 ml # Bowel Movements 1 Laboratory Tests 11/14/18 03:25: Phosphorus Level 3.6, Magnesium Level 1.5L Height (Feet): 5 Height (Inches): 3.00 Weight (Pounds): 138 General Appearance: no apparent distress, lethargic EENT: other - on O2 Mask Cardiovascular: tachycardia Respiratory/Chest: decreased breath sounds Abdomen: distended Objective no change Dwayne Vernon MD Nov 14, 2018 13:32
--- NOTE | 2018-11-14 14:17 | NUR ---
NURSE NOTES:WOUND CARE FOLLOW-UP NOTES: Full thickness pressure injury sacrococcygeal with 100%soft necrosis at base of wound (L)3.5cm x (W)3cm Periwound purple/black and indurated,an area measuring 9.5cm x (W)11cm. No odor or exudate noted. Large serous filled blister oozing small amt serous exudate noted to eliezer R tibia. No erythema noted.(L)9cm x (W)4.2cm. Blood filled blister noted to R heel (L)2.5cm x (W)2cm with surrounding non-blanching erythema with fluctuance.(L)5.5cm x (W)6.5cm. Non-blanching erythema without fluctuance noted to L heel. Pt has an APM with ALBIN mattress on her bed and positioned with pillows with both heels floated off bed. Wound care tx orders continued as ordered. Tx.Plan:Cleanse sacral wound with Saline. Apply Therahoney. Apply Moisture Barrier Paste periwound. Cover with Optifoam Drsg every 3days and prn. Apply Cavilon Skin Barrier to Blister eliezer R tibia. Cover with Optifoam drsg. Change every 7 days and prn. Apply Cavilon Skin Barrier to both heels. Cover each heel with Optifoam drsg. Change every 7 days and prn. APM/Albin Mattress overlay. Reposition at least every 2hours or as tolerated. Off-load heels with pillow.
[2018-11-14] MEDS ORDERED: Acetaminophen 650mg/20.3ml GT PRN ×2 (14:53→14:54)
[2018-11-14] MEDS ORDERED: HYDROmorphone 1mg/ml Carpuject IVP PRN (14:55)
--- NOTE | 2018-11-14 15:00 | NUR ---
HAND-OFF: Report given to FELIX Munguia. Patient vital signs stable. Endorsed to follow up.
--- NOTE | 2018-11-14 15:00 | NUR ---
NURSE NOTES: Received report from Sarah/RN, Patient is awake, non verbal, On 2L Nasal canula, No acute distress/SOB noted. IV site patent, no infiltration or bleeding noted. Wound Picture taken per protocol. Bed in low position and locked, bed alarm on, side-rails X2. Call light within reach, Will continue plan of care.
--- NOTE | 2018-11-14 15:03 | General Progress Note ---
Assessment/Plan Problem List: (1) Renal insufficiency ICD Codes: N28.9 - Disorder of kidney and ureter, unspecified; R65.20 - Severe sepsis without septic shock SNOMED: 011588773, 528714137 (2) Severe sepsis ICD Codes: A41.9 - Sepsis, unspecified organism; R65.20 - Severe sepsis without septic shock SNOMED: 53000506 (3) Septic shock ICD Codes: A41.9 - Sepsis, unspecified organism; R65.21 - Severe sepsis with septic shock SNOMED: 63071078 (4) Sacral decubitus ulcer, stage IV ICD Codes: L89.154 - Pressure ulcer of sacral region, stage 4 SNOMED: 909883513, 359378322 (5) SOB (shortness of breath) ICD Codes: R06.02 - Shortness of breath SNOMED: 320069346 (6) Respiratory failure with hypoxia and hypercapnia ICD Codes: J96.91 - Respiratory failure, unspecified with hypoxia; J96.92 - Respiratory failure, unspecified with hypercapnia SNOMED: 91500622 (7) G tube feedings ICD Codes: Z93.1 - Gastrostomy status SNOMED: 564800600, 245927616, 011239636 (8) Electrolyte imbalance ICD Codes: E87.8 - Other disorders of electrolyte and fluid balance, not elsewhere classified SNOMED: 538137486 (9) Altered mental status ICD Codes: R41.82 - Altered mental status, unspecified SNOMED: 187126564 (10) H/O: CVA (cerebrovascular accident) ICD Codes: Z86.73 - Personal history of transient ischemic attack (TIA), and cerebral infarction without residual deficits SNOMED: 450654373 (11) Pneumonia ICD Codes: J18.9 - Pneumonia, unspecified organism SNOMED: 049099449 Qualifiers: Qualified Codes: J18.1 - Lobar pneumonia, unspecified organism (12) KEL (acute kidney injury) ICD Codes: N17.9 - Acute kidney failure, unspecified SNOMED: 7836263, 37216899 (13) Ventilator dependence ICD Codes: Z99.11 - Dependence on respirator [ventilator] status SNOMED: 361250524 (14) Endotracheally intubated ICD Codes: Z97.8 - Presence of other specified devices SNOMED: 042415233 (15) Hypokalemia ICD Codes: E87.6 - Hypokalemia SNOMED: 82542691 (16) Hypercalcemia ICD Codes: E83.52 - Hypercalcemia SNOMED: 43609798 (17) Abscess ICD Codes: L02.91 - Cutaneous abscess, unspecified SNOMED: 583454008 (18) Rash ICD Codes: R21 - Rash and other nonspecific skin eruption SNOMED: 274738794 (19) Hypernatremia ICD Codes: E87.0 - Hyperosmolality and hypernatremia SNOMED: 48248711 (20) HTN (hypertension) ICD Codes: I10 - Essential (primary) hypertension SNOMED: 50317335 (21) Elevated troponin ICD Codes: R74.8 - Abnormal levels of other serum enzymes SNOMED: 054182624, 303075625 (22) Encounter for PEG (percutaneous endoscopic gastrostomy) ICD Codes: Z43.1 - Encounter for attention to gastrostomy SNOMED: 335171953, 469530942 (23) MRSA infection ICD Codes: A49.02 - Methicillin resistant Staphylococcus aureus infection, unspecified site SNOMED: 673860467 (24) PNA (pneumonia) ICD Codes: J18.9 - Pneumonia, unspecified organism SNOMED: 507317058 (25) Hyperglycemia due to type 2 diabetes mellitus ICD Codes: E11.65 - Type 2 diabetes mellitus with hyperglycemia SNOMED: 44923200, 007652796626795 (26) Upper sacral area unstageable pressure ulcer (27) Large ischemic R MCA stroke (28) UTI (urinary tract infection) ICD Codes: N39.0 - Urinary tract infection, site not specified SNOMED: 13938043 (29) Perineal area gertrudis rashes extending to left and right buttocks (30) Right lateral malleolus stage I pressure ulcer (31) Respiratory failure ICD Codes: J96.90 - Respiratory failure, unspecified, unspecified whether with hypoxia or hypercapnia SNOMED: 365636122 (32) DM (diabetes mellitus) ICD Codes: E11.9 - Type 2 diabetes mellitus without complications SNOMED: 35316503 (33) Hypernatremia ICD Codes: E87.0 - Hyperosmolality and hypernatremia SNOMED: 544541792 (34) Lactic acid acidosis ICD Codes: E87.2 - Acidosis SNOMED: 27793204 (35) Toxic metabolic encephalopathy ICD Codes: G92 - Toxic encephalopathy SNOMED: 205747128 (36) Dehydration ICD Codes: E86.0 - Dehydration SNOMED: 60861601 (37) Sepsis ICD Codes: A41.9 - Sepsis, unspecified organism SNOMED: 86448204 Status: progressing Assessment/Plan: Tami Doe is a 78 year old female who was undergoing antibiotic therapy for PNA with meropenem at [facility] sent in to the hospital with fever and desaturation. Found to have leukocytosis, fevers, Lactate 4.2. Admitted for septic shock due to pneumonia vs. UTI, acute metabolic encephalopathy, acute hypoxic hypercapnic respiratory failure, severe dehydration, hypernatremia and KEL. Upgraded to ICU due to worsening respiratory failure, now DNR/DNI after family discussion. Improved, now on nasal cannula. # Resolving septic shock due to pseudomonas PNA, fungal UTI. doubt infected sacral decubitus. -S/p fluconazole, meropenem, and polymyxin per ID, now on amikacin and continues on vancomycin per ID -ID consult. Dr. Solis, appreciate recs regarding length of antibiotics. -Blood cultures negative. Urine growing yeast. sputum culture with pseudomonas and MRSA -Lactate trended down to 1. -Leukocytosis resolved - D/C'ed IVF given patient with evidence of fluid overload on exam and rising BNP and PVC on CXR # Acute hypoxic hypercarbic respiratory failure. With increase in O2 overnight but no documented desats. -Upgraded to ICU, now transferred down to stepdown. Can transfer to telemetry/ med surge given patient is only on nasal cannula - Continue BIPAP PRN. Currently weaned to ventimask 50% FiO2 12L/min, tolerating #Toxic metabolic encephalopathy. Treat sepsis and respiratory failure - back to baseline per son # Severe dehydration and hypernatremia. Continue Free water via PEG . Hypernatremia resolved on labs today # History of CVA: Hold antihypertensives given sepsis and borderline BP. # Sacral decub. Dr. Jackson, wound care consult # DM II with hyperglycemia. - IMPROVING - Continue levemir to 25 units QHS - Continue Novolog to 4 units TIDAC - Continue accuchecks and SSI # KEL. pre-renal due to severe dehydration. avoid nephrotoxic medications. Nephrology consult: Dr. Fouladian. KEL resolved. # Troponin elevation. No acute ekg changes, demand ischemia. # Thrombocytopenia. Due to sepsis. Platelet trended down yesterday and heparin held, improved today, will resume for now # Moderate protein calorie malnutrition. Resumed feeds via PEG, tolerating. Aspiration precautions. High aspiration risk # hypokalemia repleted. Continue to monitor #hypomagnesemia: repleted. Continue to monitor # Pain control: Dilaudid prn vte ppx: heparin subq GI ppx: IV pantoprazole Diet: resumed peg feeds, free water via peg Code status: DNR/DNI, prognosis guarded Dispo: DC back to SNF if on room air Discussed with RN and employment evaluator/case manager. I spent 35 minutes on this patient's case including >50% time dedicated to counseling and/or coordination of care. Subjective ROS Limited/Unobtainable: Yes - patient nonverbal at baseline Allergies: Coded Allergies: No Known Allergies (Unverified , 02/04/17) Subjective NO acute events overnight per nursing. PNA: Overnight patient had increased work of breathing but no desats. No cough or purulence. RN increased O2 to 10L venturi mask but has now been titrated down to 2L. Other vitals stable. Patient more alert today. Further subjective history unable to obtain as patient nonverbal Objective Last 24 Hour Vital Signs Date Time Temp Pulse Resp B/P (MAP) Pulse Ox O2 Delivery O2 Flow Rate FiO2 11/14/18 12:47 97 20 100 Nasal Cannula 2.0 28 93 22 96 11/14/18 12:00 98.1 93 20 117/60 (79) 100 11/14/18 12:00 2.0 11/14/18 12:00 Nasal Cannula 2.0 11/14/18 12:00 93 11/14/18 08:13 88 11/14/18 08:00 8.0 40 11/14/18 08:00 98.4 94 20 122/63 (82) 100 11/14/18 08:00 Venturi Mask 8.0 11/14/18 06:46 86 18 100 Venturi Mask 8.0 40 87 20 100 11/14/18 06:45 100 Venturi Mask 8.0 40 11/14/18 04:00 77 11/14/18 04:00 8.0 40 11/14/18 04:00 97.5 80 20 118/57 (77) 100 11/14/18 04:00 Venturi Mask 8.0 11/14/18 00:13 94 20 99 Venturi Mask 10.0 45 90 22 99 11/14/18 00:00 Venturi Mask 8.0 11/14/18 00:00 97.9 95 16 122/63 (82) 100 11/14/18 00:00 87 11/14/18 00:00 8.0 40 11/13/18 20:30 10.0 45 11/13/18 20:00 Nasal Cannula 5.0 11/13/18 20:00 98.8 95 20 125/58 (80) 100 11/13/18 20:00 94 11/13/18 20:00 3.0 11/13/18 19:24 99 Nasal Cannula 3.0 32 11/13/18 19:20 94 20 99 Nasal Cannula 3.0 32 94 20 99 11/13/18 16:00 Nasal Cannula 5.0 11/13/18 16:00 3.0 11/13/18 16:00 98.2 103 20 139/56 (83) 100 11/13/18 15:26 104 Intake and Output 11/13/18 11/14/18 19:00 07:00 Intake Total 1683.2 ml 1570 ml Output Total 600 ml 500 ml Balance 1083.2 ml 1070 ml Free Water 300 ml 300 ml IV Total 423.2 ml 310 ml Tube Feeding 660 ml 660 ml Other 300 ml 300 ml Output Urine Total 600 ml 500 ml # Bowel Movements 1 Laboratory Tests 11/14/18 03:25: Phosphorus Level 3.6, Magnesium Level 1.5L Height (Feet): 5 Height (Inches): 3.00 Weight (Pounds): 138 General Appearance: WD/WN, no apparent distress, alert, confused EENT: PERRL/EOMI Neck: non-tender, normal alignment, supple Cardiovascular: normal peripheral pulses, normal rate, regular rhythm, no JVD Respiratory/Chest: chest wall non-tender, lungs clear, normal breath sounds Abdomen: normal bowel sounds, non tender, other - G tube in place, area is C/D/ I Extremities: normal range of motion, non-tender Edema: other - no LE edema bilaterally Neurologic: sanitarian II-XII grossly normal, alert, other - moves all 4 extremities. right gaze preference Skin: normal pigmentation, warm/dry Parviz Kwok D.O. Nov 14, 2018 15:03
--- NOTE | 2018-11-14 15:09 | NUR ---
ST NOTE: SWALLOW/SPEECH THERAPY NOTE: REFERRED FOR SWALLOW EVAL BY DR BOLAÑOS. 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 ALSO HAS WT LOSS, POOR INTAKE, AND ADULT FTT. PER RN, PATIENT COUGHS WITH THIN (SUCKED FROM [facility]) AND THICKENED LIQUIDS (NECTAR TSP) AND NEEDS TO BE ON CLEAR LIQUIDS ONLY. PER GI SUPPLY CLERK DENICE, PT LIKELY WILL NOT HAVE EGD UNTIL TOMORROW. HE APPROVED MOD BARIUM SWALLOW STUDY FOR PATIENT TOMORROW PRIOR TO EGD FOR NOW. PLAN: KEEP PT NPO UNTIL MOD BARIUM SWALLOW STUDY TOMORROW. D/W FELIX GARCIA (SARAH BETH NOT AVAILABLE).
[2018-11-14 16:00] VITALS: BP 125/63
--- NOTE | 2018-11-14 16:05 | NUR ---
HAND-OFF: Report given to Angie/RN, Patient is asleep, lying semi-jacobs, resting comfortably, in stable condition. Endorsed plan of care.
--- NOTE | 2018-11-14 16:10 | NUR ---
NURSE NOTES: Received patient and report from Nilda RN in bed resting, awake, non verbal, On 2L Nasal canula, No acute distress/SOB noted. IV site is intact and patent. Bed is in lowest position with bedside rails up X2, brakes engaged for safety, bed alarm on. Call light is within reach, Will continue plan of care.
--- NOTE | 2018-11-14 17:46 | Infectious Diseases Prog Note ---
Assessment/Plan Assessment/Plan ASSESSMENT AND PLAN: 1. sepsis, mrsa pna/pseudomonas pna, aspiration risk, chf/edema/atx, gertrudis uti , sacral wound, sirs, leukocytosis, fevers, bipap, sob/hypoxia, mary - vancomycin, ciprofloxacin and flagyl x 1 week (can change ciprofloxacin to 500 mg po bid upon discharge) - monitor labs, cultures noted, blood cultures negative - monitor chest x-ray - clinically improved, less sob - leukocytosis and fevers improved - wound care per surgery - d/w Dr. Kwok 2. Wound care per surgery and protocol. 3. Elevated creatinine with acute kidney injury. 4. Diabetes. 5. Hypertension. 6. Blood sugar and blood pressure treatment per primary consultants for diabetes and hypertension. 7. Anemia. 8. CVA. 9. Aspiration risk. 10. Aspiration precautions for CVA and aspiration risk. 11. Dysphagia. G-tube. 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 13. Dementia. 14. Encephalopathy. 15. History of sepsis and lactic acidosis. 16. No known drug allergies. 17. Family history is noncontributory. 18. Social history is negative. 19. MAR is noted. 20. Case was discussed with RN. 21. Continue treatment per primary consultants. 22. vre/mrsa colonization and isolation Subjective Constitutional: Denies: fever HEENT: Reports: congestion - less Respiratory: Reports: shortness of breath - less Gastrointestinal/Abdominal: Denies: nausea, vomiting, diarrhea Genitourinary: Reports: other - + taylor Neurologic: Reports: weakness, other - slt more alert Psychiatric: Reports: other - NA Skin: Denies: rash Hematologic: Denies: bleeding Musculoskeletal: Reports: other - NA Allergies: Coded Allergies: No Known Allergies (Unverified , 02/04/17) Objective Vital Signs Last 24 Hour Vital Signs Date Time Temp Pulse Resp B/P (MAP) Pulse Ox O2 Delivery O2 Flow Rate FiO2 11/14/18 16:00 2.0 11/14/18 16:00 Nasal Cannula 2.0 11/14/18 16:00 98.8 94 20 125/63 (83) 97 11/14/18 16:00 94 11/14/18 12:47 97 20 100 Nasal Cannula 2.0 28 93 22 96 11/14/18 12:00 98.1 93 20 117/60 (79) 100 11/14/18 12:00 2.0 11/14/18 12:00 Nasal Cannula 2.0 11/14/18 12:00 93 11/14/18 08:13 88 11/14/18 08:00 8.0 40 11/14/18 08:00 98.4 94 20 122/63 (82) 100 11/14/18 08:00 Venturi Mask 8.0 11/14/18 06:46 86 18 100 Venturi Mask 8.0 40 87 20 100 11/14/18 06:45 100 Venturi Mask 8.0 40 11/14/18 04:00 77 11/14/18 04:00 8.0 40 11/14/18 04:00 97.5 80 20 118/57 (77) 100 11/14/18 04:00 Venturi Mask 8.0 11/14/18 00:13 94 20 99 Venturi Mask 10.0 45 90 22 99 11/14/18 00:00 Venturi Mask 8.0 11/14/18 00:00 97.9 95 16 122/63 (82) 100 11/14/18 00:00 87 11/14/18 00:00 8.0 40 11/13/18 20:30 10.0 45 11/13/18 20:00 Nasal Cannula 5.0 11/13/18 20:00 98.8 95 20 125/58 (80) 100 11/13/18 20:00 94 11/13/18 20:00 3.0 11/13/18 19:24 99 Nasal Cannula 3.0 32 11/13/18 19:20 94 20 99 Nasal Cannula 3.0 32 94 20 99 Height (Feet): 5 Height (Inches): 3.00 Weight (Pounds): 138 General Appearance: no acute distress HEENT: normocephalic, atraumatic, anicteric Respiratory/Chest: crackles/rales, rhonchi - bilaterally Cardiovascular: normal rate, regular rhythm, no gallop/murmur, no JVD Abdomen: normal bowel sounds, soft, non tender, no organomegaly, non distended Genitourinary: other - + taylor - urine stl cloudy Extremities: no cyanosis Skin: no rash Neurologic/Psychiatric: players club representative II-XII grossly normal, alert, responsive Lymphatic: no neck adenopathy Musculoskeletal: no effusion Objective Chest x-ray - 11/08/18 - Basilar opacities likely represent atelectasis. Pneumonia not entirely excludable. The heart is enlarged. Mild pulmonary vascular congestion suspected and appears worse compared to the prior study. IMPRESSION: Suspected mild pulmonary vascular congestion, slightly worse. Basal atelectasis. Superimposed pneumonia not excluded Chest x-ray - 11/11/18 - FINDINGS: Lungs: Persistent increased interstitial markings. Unchanged mild bibasilar subcentimeter atelectasis versus infiltrates. Pleural space: Unremarkable. The costophrenic angles are sharp. No visible pneumothorax. Heart: Unremarkable. No cardiomegaly. Mediastinum: Unremarkable. Bones joints: Degenerative changes throughout the visualized spine and shoulder joints. Vasculature: Atherosclerotic calcifications within the aortic arch. Tubes, lines and devices: Telemetry leads overlie the thorax. IMPRESSION: 1. Persistent increased interstitial markings. This is nonspecific but may suggest pulmonary vascular congestion or a mild interstitial pneumonitis. 2. Unchanged mild bibasilar subsegmental atelectasis versus infiltrates. Chest x-ray - 11/12/18 Procedure: XRAY Chest 1v Indication: Shortness of breath Technique: One view of the chest Comparison: 11/10/2018 Findings: Bilateral interstitial and airspace disease is again demonstrated, with dense consolidation in the retrocardiac region. There are probably small bilateral pleural effusions. Findings are unchanged Impression: Unchanged, over 2 days, findings as above. Microbiology Date/Time Source Procedure Growth Status 11/06/18 12:20 Blood Blood Culture - Final NO GROWTH AFTER 5 DAYS Complete 11/08/18 10:00 Sputum Induced Gram Stain - Final Complete 11/08/18 10:00 Sputum Culture - Final Pseudomonas Aeruginosa Staphylococcus Aureus - Mrsa Complete 11/08/18 19:29 Stool Clostridium difficile Toxin Assay - Final Complete 11/06/18 12:20 Urine,Clean Catch Urine Culture - Final Gertrudis Tropicalis Complete 11/06/18 12:30 Rectum - Final NO CARBAPENEM-RESISTANT ENTEROBACTERI... Complete Labs Test 11/12/18 03:05 11/13/18 07:00 11/14/18 03:25 White Blood Count 8.9 K/UL (4.8-10.8) 9.5 K/UL (4.8-10.8) Red Blood Count 2.65 M/UL (4.20-5.40) 2.84 M/UL (4.20-5.40) Hemoglobin 8.6 G/DL (12.0-16.0) 9.0 G/DL (12.0-16.0) Hematocrit 25.0 % (37.0-47.0) 27.0 % (37.0-47.0) Mean Corpuscular Volume 94 FL (80-99) 95 FL (80-99) Mean Corpuscular Hemoglobin 32.3 PG (27.0-31.0) 31.5 PG (27.0-31.0) Mean Corpuscular Hemoglobin Concent 34.3 G/DL (32.0-36.0) 33.2 G/DL (32.0-36.0) Red Cell Distribution Width 12.4 % (11.6-14.8) 12.6 % (11.6-14.8) Platelet Count 156 K/UL (150-450) 265 K/UL (150-450) Mean Platelet Volume 9.2 FL (6.5-10.1) 7.7 FL (6.5-10.1) Neutrophils (%) (Auto) 80.9 % (45.0-75.0) 82.4 % (45.0-75.0) Lymphocytes (%) (Auto) 13.9 % (20.0-45.0) 12.4 % (20.0-45.0) Monocytes (%) (Auto) 3.4 % (1.0-10.0) 3.5 % (1.0-10.0) Eosinophils (%) (Auto) 1.4 % (0.0-3.0) 1.4 % (0.0-3.0) Basophils (%) (Auto) 0.4 % (0.0-2.0) 0.3 % (0.0-2.0) Sodium Level 145 MMOL/L (136-145) 145 MMOL/L (136-145) Potassium Level 4.0 MMOL/L (3.5-5.1) 3.9 MMOL/L (3.5-5.1) Chloride Level 109 MMOL/L (98-107) 109 MMOL/L (98-107) Carbon Dioxide Level 30 MMOL/L (21-32) 31 MMOL/L (21-32) Anion Gap 6 mmol/L (5-15) 5 mmol/L (5-15) Blood Urea Nitrogen 22 mg/dL (7-18) 25 mg/dL (7-18) Creatinine 0.8 MG/DL (0.55-1.30) 0.9 MG/DL (0.55-1.30) Estimat Glomerular Filtration Rate mL/min (>60) mL/min (>60) Glucose Level 273 MG/DL (74-106) 273 MG/DL (74-106) Calcium Level 9.2 MG/DL (8.5-10.1) 9.2 MG/DL (8.5-10.1) Random Amikacin Level 19.8 ug/mL Vancomycin Level Trough 12.1 ug/mL (5.0-12.0) Phosphorus Level 3.6 MG/DL (2.5-4.9) Magnesium Level 1.5 MG/DL (1.8-2.4) Laboratory Tests Test 11/14/18 03:25 Phosphorus Level 3.6 MG/DL (2.5-4.9) Magnesium Level 1.5 MG/DL (1.8-2.4) L Current Medications Medications (Trade) Dose Ordered Sig/Wayne Route PRN Reason Start Time Stop Time Status Last Admin Dose Admin Acetaminophen (Tylenol) 650 mg Q4H PRN GT fever 11/14/18 14:53 12/14/18 14:52 Acetaminophen (Tylenol) 650 mg Q4H PRN GT Mild Pain (Pain Scale 1-3) 11/14/18 14:54 12/14/18 14:53 Albuterol/ Ipratropium (Albuterol/ Ipratropium) 3 ml Q6HRT HHN 11/14/18 19:00 11/18/18 18:59 Ascorbic Acid (Vitamin C) 500 mg DAILY GT 11/15/18 09:00 12/08/18 08:59 Aspirin (ASA) 81 mg DAILY GT 11/15/18 09:00 12/14/18 08:59 Atorvastatin Calcium (Lipitor) 40 mg BEDTIME GT 11/14/18 21:00 12/13/18 20:59 Ciprofloxacin (Cipro 500mg tab) 500 mg EVERY 12 HOURS GT 11/14/18 21:00 11/18/18 23:59 Dextrose (Dextrose 50%) 25 ml Q30M PRN IV Hypoglycemia 11/14/18 15:00 12/08/18 14:29 Dextrose (Dextrose 50%) 50 ml Q30M PRN IV Hypoglycemia 11/14/18 15:00 12/08/18 14:29 Famotidine (Pepcid) 20 mg BID GT 11/14/18 18:00 12/13/18 17:59 Furosemide (Lasix) 20 mg DAILY GT 11/15/18 09:00 12/14/18 08:59 Heparin Sodium (Porcine) (Heparin 5000 units/ml) 5,000 units EVERY 12 HOURS SUBQ 11/14/18 21:00 12/11/18 20:59 Hydromorphone HCl (Dilaudid) 1 mg Q6H PRN IVP Moderate Pain (Pain Scale 4-6) 11/14/18 14:55 11/21/18 14:54 Hydromorphone HCl (Dilaudid) 2 mg Q6H PRN IVP Severe Pain (Pain Scale 7-10) 11/14/18 14:55 11/21/18 14:54 Insulin Aspart (NovoLOG) Q6HR SUBQ 11/14/18 18:00 12/06/18 20:59 Insulin Aspart (NovoLOG) 4 units NOVOTIAC SUBQ 11/14/18 16:50 12/13/18 11:49 11/14/18 17:25 Insulin Detemir (Levemir) 25 units BEDTIME SUBQ 11/14/18 21:00 12/10/18 20:59 Metronidazole (Flagyl) 500 mg EVERY 8 HOURS GT 11/14/18 22:00 11/18/18 13:59 Ondansetron HCl (Zofran) 4 mg Q6H PRN IVP Nausea & Vomiting 11/14/18 15:00 12/08/18 14:59 Vancomycin HCl (Vanco rx to dose) 1 ea DAILY PRN MISC Per rx protocol 11/15/18 09:00 12/06/18 16:59 Vancomycin HCl 500 mg/Dextrose 110 ml @ 110 mls/hr Q12HR IVPB 11/14/18 21:00 11/18/18 08:59 Milton Valladares MD Nov 14, 2018 17:46
--- NOTE | 2018-11-14 19:30 | NUR ---
OBTAINED REPORT FROM DENISE WASHINGTON. PT RESTING IN BED (APPEARS COMFORTABLE).
--- NOTE | 2018-11-14 19:36 | Surgery Progress Note ---
Surgery Progress Note Subjective Additional Comments no acute events. new lower extremity blister from IV site noted and will be cared for labs noted Objective Last 24 Hour Vital Signs Date Time Temp Pulse Resp B/P (MAP) Pulse Ox O2 Delivery O2 Flow Rate FiO2 11/14/18 19:14 104 24 99 Nasal Cannula 2.0 28 101 24 98 11/14/18 19:14 100 Nasal Cannula 2.0 28 11/14/18 16:00 2.0 11/14/18 16:00 Nasal Cannula 2.0 11/14/18 16:00 98.8 94 20 125/63 (83) 97 11/14/18 16:00 94 11/14/18 12:47 97 20 100 Nasal Cannula 2.0 28 93 22 96 11/14/18 12:00 98.1 93 20 117/60 (79) 100 11/14/18 12:00 2.0 11/14/18 12:00 Nasal Cannula 2.0 11/14/18 12:00 93 11/14/18 08:13 88 11/14/18 08:00 8.0 40 11/14/18 08:00 98.4 94 20 122/63 (82) 100 11/14/18 08:00 Venturi Mask 8.0 11/14/18 06:46 86 18 100 Venturi Mask 8.0 40 87 20 100 11/14/18 06:45 100 Venturi Mask 8.0 40 11/14/18 04:00 77 11/14/18 04:00 8.0 40 11/14/18 04:00 97.5 80 20 118/57 (77) 100 11/14/18 04:00 Venturi Mask 8.0 11/14/18 00:13 94 20 99 Venturi Mask 10.0 45 90 22 99 11/14/18 00:00 Venturi Mask 8.0 11/14/18 00:00 97.9 95 16 122/63 (82) 100 11/14/18 00:00 87 11/14/18 00:00 8.0 40 11/13/18 20:30 10.0 45 11/13/18 20:00 Nasal Cannula 5.0 11/13/18 20:00 98.8 95 20 125/58 (80) 100 11/13/18 20:00 94 11/13/18 20:00 3.0 I&O Intake and Output 11/13/18 11/14/18 19:00 07:00 Intake Total 1683.2 ml 1570 ml Output Total 600 ml 500 ml Balance 1083.2 ml 1070 ml Free Water 300 ml 300 ml IV Total 423.2 ml 310 ml Tube Feeding 660 ml 660 ml Other 300 ml 300 ml Output Urine Total 600 ml 500 ml # Bowel Movements 1 Dressing: saturated Wound: other Drains: other Cardiovascular: RSR Respiratory: decreased breath sounds Abdomen: soft, present bowel sounds, non-distended Extremities: edema, no cyanosis Laboratory Tests Test 11/14/18 03:25 Phosphorus Level 3.6 MG/DL (2.5-4.9) Magnesium Level 1.5 MG/DL (1.8-2.4) L Plan Problems: (1) Severe sepsis Assessment & Plan: IV fluids IV abx trend labs will follow with recs wounds stable and not etiology of sepsis (2) Sacral decubitus ulcer, stage IV Assessment & Plan: Full thickness pressure injury sacrococcygeal with 100%soft necrosis at base of wound (L)3.5cm x (W)3cm Periwound purple/black and indurated ,an area measuring 9.5cm x (W)11cm. No odor or exudate noted. Large serous filled blister oozing small amt serous exudate noted to eliezer R tibia. No erythema noted.(L)9cm x (W)4.2cm. Blood filled blister noted to R heel (L)2.5cm x (W)2cm with surrounding non- blanching erythema with fluctuance.(L)5.5cm x (W)6.5cm. Non-blanching erythema without fluctuance noted to L heel. Pt has an APM with ALBIN mattress on her bed and positioned with pillows with both heels floated off bed. Wound care tx orders continued as ordered. Tx.Plan: Cleanse sacral wound with Saline. Apply Therahoney. Apply Moisture Barrier Paste periwound. Cover with Optifoam Drsg every 3days and prn. Apply Cavilon Skin Barrier to Blister eliezer R tibia. Cover with Optifoam drsg. Change every 7 days and prn. Apply Cavilon Skin Barrier to both heels. Cover each heel with Optifoam drsg. Change every 7 days and prn. APM/Albin Mattress overlay. Reposition at least every 2hours or as tolerated. Off-load heels with pillow. (3) G tube feedings Assessment & Plan: DAILY ESTIMATED NEEDS: Needs based on Wound, DM, sepsis 56kg 25-30 kcals/kg 2441-6562 total kcals 1.25-2 g protein/kg 70-112 g total protein 25-30 mL/kg 4139-0806 total fluid mLs NUTRITION DIAGNOSIS: 1) Swallowing difficulty R/T dysphagia, CVA as evidenced by PEG dependent. 2) Increased kcal and pro needs r/t wound healing, increased metabolic rate as evidenced by admitted w/ sacral wound per photo, pending evaluation, sepsis dx w/ elev wbc, febrile, elev LA, elev BGs ([phone], [phone]). . CURRENT TF:NPO ENTERAL NUTRITION RECOMMENDATIONS: Glucerna 1.2 @ 55ml/hr x24 hrs to provide 1320ml, 1584kcal, 79g prot, 1063ml free water - As medically appropriate, initiate Glucerna 1.2 @ 35ml/hr - Advance TF 10ml q 4-6 hrs as tolerated to goal rate - HOB over 30 degrees/ water flush per MD ADDITIONAL RECOMMENDATIONS: 1) Calibrated bedscale wt for accurate CBW- w/ added P200 mattress + pump 2) Rec long acting insulin for improved BG control once TF initiates -> BGs in the 300's + 400's 3) Wound healing: add Vit C 500mg QD + Gonsalo 1pkt BID 4) Monitor lytes daily, replete as needed (4) Electrolyte imbalance (5) Ventilator dependence Akhil Jackson Nov 14, 2018 19:36
--- NOTE | 2018-11-14 19:45 | NUR ---
HAND-OFF: Report given to FELIX Ramos.Endorsed plan of care.
[2018-11-14 20:00] VITALS: BP 131/68
[2018-11-14] MEDS: Ciprofloxacin 500mg tab GT SCH (20:56)
[2018-11-14] MEDS: Atorvastatin 20mg tab GT SCH (20:56)
[2018-11-14] MEDS: Vancomycin 500 MG in D5W 110 ML IVPB SCH (20:57)
[2018-11-14] MEDS ORDERED: Ciprofloxacin 500mg tab GT SCH (21:00)
[2018-11-14] MEDS: Levemir Flexpen SUBQ SCH (21:09)
[2018-11-15] VITALS: BP 101/60
[2018-11-15] MEDS: Albuterol/Ipratropium 3ml neb HHN SCH ×4 (00:38→19:08)
[2018-11-15 04:00] VITALS: BP 124/66
[2018-11-15] MEDS: metroNIDAZOLE 500mg tab GT SCH ×3 (05:00→22:04)
[2018-11-15] MEDS: NovoLOG Insulin Flexpen SUBQ SCH ×6 (05:43→17:24)
--- NOTE | 2018-11-15 07:00 | NUR ---
NURSE NOTES: Received report from FELIX Ramos. The patient is resting on the bed without acute distress or shortness of breath. The patient's bed in the lowest position, call light in reach, and fall and aspiration precaution reinforced. IV site intact and patent. G-tube intact without residual and is on Glucerna 1.5 @55mL per ordered. The patient is on airmatress for the pressure ulcer. Will continue plan of care.
--- NOTE | 2018-11-15 07:30 | NUR ---
FULL REPORT GIVEN TO RICHA WASHINGTON. PT RESTING IN BED FREE FROM APPARENT DISTRESS.
[2018-11-15 07:44] LABS: BASOPHILS % (AUTO) 0.3 % (0.0-2.0); HEMATOCRIT 25.7 % (37.0-47.0); HEMOGLOBIN 8.5 G/DL (12.0-16.0); LYMPHOCYTES % (AUTO) 12.4 % (20.0-45.0); MEAN CORPUSCULAR VOLUME 94 FL (80-99); NEUTROPHILS % (AUTO) 84.4 % (45.0-75.0); PLATELET COUNT 380 K/UL (150-450); RED BLOOD COUNT 2.73 M/UL (4.20-5.40); WHITE BLOOD COUNT 9.6 K/UL (4.8-10.8)
[2018-11-15 07:54] LABS: ALANINE AMINOTRANSFERASE 12 U/L (12-78); ALBUMIN 1.4 G/DL (3.4-5.0); ALBUMIN/GLOBULIN RATIO 0.3 (1.0-2.7); ALKALINE PHOSPHATASE 123 U/L (46-116); ANION GAP 5 mmol/L (5-15); ASPARTATE AMINO TRANSFERASE 19 U/L (15-37); BILIRUBIN,TOTAL 0.3 MG/DL (0.2-1.0); BLOOD UREA NITROGEN 24 mg/dL (7-18); CARBON DIOXIDE 31 MMOL/L (21-32); CHLORIDE 105 MMOL/L (98-107); CREATININE 0.8 MG/DL (0.55-1.30); POTASSIUM 3.2 MMOL/L (3.5-5.1); SODIUM 141 MMOL/L (136-145)
[2018-11-15 08:00] VITALS: BP 115/53
--- NOTE | 2018-11-15 08:53 | NUR ---
RADIOLOGY DEPT., CHEST X-RAY DONE.-P.DYE
[2018-11-15] MEDS ORDERED: Amikacin Rx to dose MISC PRN (09:00)
[2018-11-15] MEDS: Heparin 5000 units/ml inj SUBQ SCH ×2 (09:00→22:05)
--- NOTE | 2018-11-15 09:22 | NUR ---
CASE MANAGEMENT: REVIEW 11/15/18 SI:RESP FAILURE; SEPTIC SHOCK, SEPSIS, PNA 97.6 85 18 115/53 100% VENTURI ; FiO2 36 K+ 3.2; BUN 24; RBC 2.73; H/H 8.5/25.7 ALK PHOS 123; IS: FLAGYL GT Q8H IV VANCOMYCIN Q12HR IV MG SULFATE @100/HR CIPROFLOXACIN GT Q12 IV DILAUDID Q6H/PRN HEPARIN SQ Q12HR LEVEMIR QD HS NOVOLOG SQ Q6/H ALBUTEROL HHN Q6/PRN ASA GT QD LIPITOR GT HS : 2E TELE DCP: RETURN TO [facility] PLAN: CONSIDER HOSPICE CARE RETURN TO [facility] IF TOLERATING RA AND OK WITH ID
[2018-11-15] MEDS: Ciprofloxacin 500mg tab GT SCH ×2 (09:30→22:03)
[2018-11-15] MEDS ORDERED: Sodium Chloride for KCL Premix X 3hrs IV SCH ×2 (09:30→10:00)
[2018-11-15] MEDS: Aspirin Baby 81mg GT SCH (09:30)
--- NOTE | 2018-11-15 09:30 | NUR ---
NURSE NOTES: Dr. Vernon ordered KCL 10mEq IVPB x3 for potassium level of 3.2. The patient is resting without acute distress or shortness of breath. Will administer medication as ordered in a safe manner. Will continue plan of care.
[2018-11-15] MEDS: Ascorbic Acid 500mg tab GT SCH (09:31)
--- NOTE | 2018-11-15 09:31 | Pulmonology Progress Note ---
Assessment/Plan Problems: (1) Respiratory failure with hypoxia and hypercapnia (2) SOB (shortness of breath) (3) Septic shock (4) G tube feedings (5) H/O: CVA (cerebrovascular accident) (6) Altered mental status (7) Electrolyte imbalance (8) Pneumonia (9) KEL (acute kidney injury) (10) Hypernatremia (11) HTN (hypertension) (12) UTI (urinary tract infection) (13) DM (diabetes mellitus) (14) Dehydration Assessment/Plan Optimize pulmonary hygiene/mobilize as tolerated Titrate down FiO2 to keep SaO2 > 90% BiPAP to PRN/qHS - ENCOURAGE NOCTURNAL USAGE HHN's Abx per ID Monitor volumes and renal function DVT Px: Hep SQ DNAR/DNI, continue to discuss GOC Subjective Allergies: Coded Allergies: No Known Allergies (Unverified , 02/04/17) Subjective Transferred to tele AFVSS O2 needs stable No distress No report of coughing or SOB Objective Last 24 Hour Vital Signs Date Time Temp Pulse Resp B/P (MAP) Pulse Ox O2 Delivery O2 Flow Rate FiO2 11/15/18 08:00 97.6 85 18 115/53 (73) 95 11/15/18 07:43 95 Venturi Mask 8.0 40 11/15/18 07:43 76 22 100 Venturi Mask 8.0 40 75 22 95 11/15/18 04:00 98.4 75 18 124/66 (85) 100 11/15/18 04:00 40 11/15/18 03:59 75 11/15/18 00:38 100 22 99 Nasal Cannula 2.0 28 98 24 97 11/15/18 00:00 75 11/15/18 00:00 97.2 83 18 101/60 (74) 97 11/14/18 20:00 95 11/14/18 20:00 Nasal Cannula 2.0 11/14/18 20:00 2.0 11/14/18 20:00 99.5 100 18 131/68 (89) 11/14/18 19:14 104 24 99 Nasal Cannula 2.0 28 101 24 98 11/14/18 19:14 100 Nasal Cannula 2.0 28 11/14/18 16:00 2.0 11/14/18 16:00 Nasal Cannula 2.0 11/14/18 16:00 98.8 94 20 125/63 (83) 97 11/14/18 16:00 94 11/14/18 12:47 97 20 100 Nasal Cannula 2.0 28 93 22 96 11/14/18 12:00 98.1 93 20 117/60 (79) 100 11/14/18 12:00 2.0 11/14/18 12:00 Nasal Cannula 2.0 11/14/18 12:00 93 Intake and Output 11/14/18 11/15/18 18:59 06:59 Intake Total 1910 ml 415 ml Output Total 500 ml 800 ml Balance 1410 ml -385 ml Intake Oral 0 ml 0 ml Free Water 100 ml 60 ml IV Total 1200 ml Tube Feeding 110 ml 55 ml Blood Product 100 ml Other 400 ml 300 ml Output Urine Total 500 ml 800 ml # Voids 2 # Bowel Movements 1 General Appearance: no acute distress, cachetic HEENT: normocephalic, atraumatic Respiratory/Chest: rhonchi Cardiovascular: normal peripheral pulses, normal rate, regular rhythm Abdomen: normal bowel sounds, soft, non tender, no organomegaly, non distended , other - GT Extremities: no cyanosis, no clubbing, other - 1+ PAULINA Laboratory Tests 11/14/18 20:10: Vancomycin Level Trough 15.6H 11/15/18 06:57: White Blood Count 9.6, Red Blood Count 2.73L, Hemoglobin 8.5L, Hematocrit 25.7L , Mean Corpuscular Volume 94, Mean Corpuscular Hemoglobin 31.1H, Mean Corpuscular Hemoglobin Concent 33.0, Red Cell Distribution Width 12.0, Platelet Count 380, Mean Platelet Volume 7.0, Neutrophils (%) (Auto) 84.4H, Lymphocytes ( %) (Auto) 12.4L, Monocytes (%) (Auto) 2.0, Eosinophils (%) (Auto) 1.0, Basophils (%) (Auto) 0.3, Sodium Level 141, Potassium Level 3.2L, Chloride Level 105, Carbon Dioxide Level 31, Anion Gap 5, Blood Urea Nitrogen 24H, Creatinine 0.8, Estimat Glomerular Filtration Rate , Glucose Level 168H, Calcium Level 9.0, Magnesium Level 2.0, Total Bilirubin 0.3, Aspartate Amino Transf (AST/SGOT) 19, Alanine Aminotransferase (ALT/SGPT) 12, Alkaline Phosphatase 123H, Total Protein 6.5, Albumin 1.4L, Globulin 5.1, Albumin/ Globulin Ratio 0.3L Current Medications Medications (Trade) Dose Ordered Sig/Wayne Route PRN Reason Start Time Stop Time Status Last Admin Dose Admin Acetaminophen (Tylenol) 650 mg Q4H PRN GT fever 11/14/18 14:53 12/14/18 14:52 Acetaminophen (Tylenol) 650 mg Q4H PRN GT Mild Pain (Pain Scale 1-3) 11/14/18 14:54 12/14/18 14:53 11/14/18 20:55 Albuterol/ Ipratropium (Albuterol/ Ipratropium) 3 ml Q6HRT HHN 11/14/18 19:00 11/18/18 18:59 11/15/18 07:43 Ascorbic Acid (Vitamin C) 500 mg DAILY GT 11/15/18 09:00 12/08/18 08:59 Aspirin (ASA) 81 mg DAILY GT 11/15/18 09:00 12/14/18 08:59 Atorvastatin Calcium (Lipitor) 40 mg BEDTIME GT 11/14/18 21:00 12/13/18 20:59 11/14/18 20:56 Ciprofloxacin (Cipro 500mg tab) 500 mg EVERY 12 HOURS GT 11/14/18 21:00 11/18/18 23:59 11/14/18 20:56 Dextrose (Dextrose 50%) 25 ml Q30M PRN IV Hypoglycemia 11/14/18 15:00 12/08/18 14:29 Dextrose (Dextrose 50%) 50 ml Q30M PRN IV Hypoglycemia 11/14/18 15:00 12/08/18 14:29 Famotidine (Pepcid) 20 mg BID GT 11/14/18 18:00 12/13/18 17:59 11/14/18 18:09 Furosemide (Lasix) 20 mg DAILY GT 11/15/18 09:00 12/14/18 08:59 Heparin Sodium (Porcine) (Heparin 5000 units/ml) 5,000 units EVERY 12 HOURS SUBQ 11/14/18 21:00 12/11/18 20:59 11/14/18 20:59 Hydromorphone HCl (Dilaudid) 1 mg Q6H PRN IVP Moderate Pain (Pain Scale 4-6) 11/14/18 14:55 11/21/18 14:54 Hydromorphone HCl (Dilaudid) 2 mg Q6H PRN IVP Severe Pain (Pain Scale 7-10) 11/14/18 14:55 11/21/18 14:54 Insulin Aspart (NovoLOG) Q6HR SUBQ 11/14/18 18:00 12/06/18 20:59 11/15/18 05:43 Insulin Aspart (NovoLOG) 7 units NOVOTIAC SUBQ 11/15/18 11:50 12/13/18 11:49 Insulin Detemir (Levemir) 25 units BEDTIME SUBQ 11/14/18 21:00 12/10/18 20:59 11/14/18 21:09 Metronidazole (Flagyl) 500 mg EVERY 8 HOURS GT 11/14/18 22:00 11/18/18 13:59 11/15/18 05:00 Ondansetron HCl (Zofran) 4 mg Q6H PRN IVP Nausea & Vomiting 11/14/18 15:00 12/08/18 14:59 Potassium Chloride 100 ml @ 100 mls/hr Q1HR IVPB 11/15/18 10:00 11/15/18 12:59 Sodium Chloride 300 ml @ 100 mls/hr Q3H IV 11/15/18 10:00 11/15/18 12:59 Vancomycin HCl (Vanco rx to dose) 1 ea DAILY PRN MISC Per rx protocol 11/15/18 09:00 12/06/18 16:59 Vancomycin HCl 500 mg/Dextrose 110 ml @ 110 mls/hr Q12HR IVPB 11/14/18 21:00 11/18/18 08:59 11/14/18 20:57 Bimal Milner MD Nov 15, 2018 09:31
[2018-11-15] MEDS: Vancomycin 500 MG in D5W 110 ML IVPB SCH ×2 (09:32→22:06)
--- NOTE | 2018-11-15 10:24 | Nephrology Progress Note ---
Assessment/Plan Problem List: (1) KEL (acute kidney injury) Assessment: resolved (2) Hypokalemia (3) Severe sepsis (4) Hypernatremia (5) Hypercalcemia (6) DM (diabetes mellitus) Assessment Sepsis Acute renal failure HyperNatremia Dehydration G Tube Low k DM OOC CVA Old jody Previous admission was intubated on vent, but extubated Plan antibiotics Levemir and SS insulin IV KCl and phos and mag as needed monitor renal parameters and lytes Pulm support correct lytes BS and BP check and monitor per consultants ? Med - surg Subjective ROS Limited/Unobtainable: No Objective Objective Last 24 Hour Vital Signs Date Time Temp Pulse Resp B/P (MAP) Pulse Ox O2 Delivery O2 Flow Rate FiO2 11/15/18 08:00 97.6 85 18 115/53 (73) 95 11/15/18 07:43 95 Venturi Mask 8.0 40 11/15/18 07:43 76 22 100 Venturi Mask 8.0 40 75 22 95 11/15/18 04:00 98.4 75 18 124/66 (85) 100 11/15/18 04:00 40 11/15/18 03:59 75 11/15/18 00:38 100 22 99 Nasal Cannula 2.0 28 98 24 97 11/15/18 00:00 75 11/15/18 00:00 97.2 83 18 101/60 (74) 97 11/14/18 20:00 95 11/14/18 20:00 Nasal Cannula 2.0 11/14/18 20:00 2.0 11/14/18 20:00 99.5 100 18 131/68 (89) 11/14/18 19:14 104 24 99 Nasal Cannula 2.0 28 101 24 98 11/14/18 19:14 100 Nasal Cannula 2.0 28 11/14/18 16:00 2.0 11/14/18 16:00 Nasal Cannula 2.0 11/14/18 16:00 98.8 94 20 125/63 (83) 97 11/14/18 16:00 94 11/14/18 12:47 97 20 100 Nasal Cannula 2.0 28 93 22 96 11/14/18 12:00 98.1 93 20 117/60 (79) 100 11/14/18 12:00 2.0 11/14/18 12:00 Nasal Cannula 2.0 11/14/18 12:00 93 Intake and Output 11/14/18 11/15/18 18:59 06:59 Intake Total 1910 ml 415 ml Output Total 500 ml 800 ml Balance 1410 ml -385 ml Intake Oral 0 ml 0 ml Free Water 100 ml 60 ml IV Total 1200 ml Tube Feeding 110 ml 55 ml Blood Product 100 ml Other 400 ml 300 ml Output Urine Total 500 ml 800 ml # Voids 2 # Bowel Movements 1 Laboratory Tests 11/14/18 20:10: Vancomycin Level Trough 15.6H 11/15/18 06:57: White Blood Count 9.6, Red Blood Count 2.73L, Hemoglobin 8.5L, Hematocrit 25.7L , Mean Corpuscular Volume 94, Mean Corpuscular Hemoglobin 31.1H, Mean Corpuscular Hemoglobin Concent 33.0, Red Cell Distribution Width 12.0, Platelet Count 380, Mean Platelet Volume 7.0, Neutrophils (%) (Auto) 84.4H, Lymphocytes ( %) (Auto) 12.4L, Monocytes (%) (Auto) 2.0, Eosinophils (%) (Auto) 1.0, Basophils (%) (Auto) 0.3, Sodium Level 141, Potassium Level 3.2L, Chloride Level 105, Carbon Dioxide Level 31, Anion Gap 5, Blood Urea Nitrogen 24H, Creatinine 0.8, Estimat Glomerular Filtration Rate , Glucose Level 168H, Calcium Level 9.0, Magnesium Level 2.0, Total Bilirubin 0.3, Aspartate Amino Transf (AST/SGOT) 19, Alanine Aminotransferase (ALT/SGPT) 12, Alkaline Phosphatase 123H, Total Protein 6.5, Albumin 1.4L, Globulin 5.1, Albumin/ Globulin Ratio 0.3L Height (Feet): 5 Height (Inches): 3.00 Weight (Pounds): 138 General Appearance: no apparent distress, lethargic Objective no change Dwayne Vernon MD Nov 15, 2018 10:24
--- NOTE | 2018-11-15 11:00 | NUR ---
NURSE NOTES: Dr. Nevarez ordered the patient to be transferred to med/surg. The patient is stable without acute distress or shortness of breath. Will continue plan of care.
--- NOTE | 2018-11-15 11:00 | NUR ---
NURSE NOTES: Dr. Nevarez at the bedside assessed the patient. Per the dietitian's recommendation, Dr. Nevarez changed the tube feeding rate into Glucerna 1.5 @45mL/hr with add on of Gonsalo BID. Per Dr. Nevarez, no Nunez necessary. The patient is stable without acute distress or shortness of breath. Will continue plan of care.
--- NOTE | 2018-11-15 11:22 | Infectious Diseases Prog Note ---
Assessment/Plan Assessment/Plan ASSESSMENT AND PLAN: 1. sepsis, mrsa pna/pseudomonas pna, aspiration risk, chf/edema/atx, gertrudis uti , sacral wound, sirs, leukocytosis, fevers, bipap, sob/hypoxia, mary - vancomycin, ciprofloxacin and flagyl x 5 days (can change ciprofloxacin to 500 mg po bid upon discharge) - monitor labs, cultures noted, blood cultures negative - monitor chest x-ray - clinically improved, less sob - leukocytosis and fevers improved - wound care per surgery - d/w Dr. Kwok 2. Wound care per surgery and protocol. 3. Elevated creatinine with acute kidney injury. 4. Diabetes. 5. Hypertension. 6. Blood sugar and blood pressure treatment per primary consultants for diabetes and hypertension. 7. Anemia. 8. CVA. 9. Aspiration risk. 10. Aspiration precautions for CVA and aspiration risk. 11. Dysphagia. G-tube. 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 13. Dementia. 14. Encephalopathy. 15. History of sepsis and lactic acidosis. 16. No known drug allergies. 17. Family history is noncontributory. 18. Social history is negative. 19. MAR is noted. 20. Case was discussed with RN. 21. Continue treatment per primary consultants. 22. vre/mrsa colonization and isolation Subjective Constitutional: Reports: fatigue, other - more alert, + breathing mask ; Denies : fever HEENT: Reports: congestion Respiratory: Reports: shortness of breath Cardiovascular: Denies: chest pain Gastrointestinal/Abdominal: Denies: nausea, diarrhea Allergies: Coded Allergies: No Known Allergies (Unverified , 02/04/17) Objective Vital Signs Last 24 Hour Vital Signs Date Time Temp Pulse Resp B/P (MAP) Pulse Ox O2 Delivery O2 Flow Rate FiO2 11/15/18 08:00 97.6 85 18 115/53 (73) 95 11/15/18 07:43 95 Venturi Mask 8.0 40 11/15/18 07:43 76 22 100 Venturi Mask 8.0 40 75 22 95 11/15/18 04:00 98.4 75 18 124/66 (85) 100 11/15/18 04:00 40 11/15/18 03:59 75 11/15/18 00:38 100 22 99 Nasal Cannula 2.0 28 98 24 97 11/15/18 00:00 75 11/15/18 00:00 97.2 83 18 101/60 (74) 97 11/14/18 20:00 95 11/14/18 20:00 Nasal Cannula 2.0 11/14/18 20:00 2.0 11/14/18 20:00 99.5 100 18 131/68 (89) 11/14/18 19:14 104 24 99 Nasal Cannula 2.0 28 101 24 98 11/14/18 19:14 100 Nasal Cannula 2.0 28 11/14/18 16:00 2.0 11/14/18 16:00 Nasal Cannula 2.0 11/14/18 16:00 98.8 94 20 125/63 (83) 97 11/14/18 16:00 94 11/14/18 12:47 97 20 100 Nasal Cannula 2.0 28 93 22 96 11/14/18 12:00 98.1 93 20 117/60 (79) 100 11/14/18 12:00 2.0 11/14/18 12:00 Nasal Cannula 2.0 11/14/18 12:00 93 Height (Feet): 5 Height (Inches): 3.00 Weight (Pounds): 138 General Appearance: no acute distress HEENT: normocephalic, atraumatic, anicteric Respiratory/Chest: crackles/rales, rhonchi - bilaterally Cardiovascular: normal rate, regular rhythm Abdomen: normal bowel sounds, soft, non tender, no organomegaly Objective Chest x-ray - 11/08/18 - Basilar opacities likely represent atelectasis. Pneumonia not entirely excludable. The heart is enlarged. Mild pulmonary vascular congestion suspected and appears worse compared to the prior study. IMPRESSION: Suspected mild pulmonary vascular congestion, slightly worse. Basal atelectasis. Superimposed pneumonia not excluded Chest x-ray - 11/11/18 - FINDINGS: Lungs: Persistent increased interstitial markings. Unchanged mild bibasilar subcentimeter atelectasis versus infiltrates. Pleural space: Unremarkable. The costophrenic angles are sharp. No visible pneumothorax. Heart: Unremarkable. No cardiomegaly. Mediastinum: Unremarkable. Bones joints: Degenerative changes throughout the visualized spine and shoulder joints. Vasculature: Atherosclerotic calcifications within the aortic arch. Tubes, lines and devices: Telemetry leads overlie the thorax. IMPRESSION: 1. Persistent increased interstitial markings. This is nonspecific but may suggest pulmonary vascular congestion or a mild interstitial pneumonitis. 2. Unchanged mild bibasilar subsegmental atelectasis versus infiltrates. Chest x-ray - 11/12/18 Procedure: XRAY Chest 1v Indication: Shortness of breath Technique: One view of the chest Comparison: 11/10/2018 Findings: Bilateral interstitial and airspace disease is again demonstrated, with dense consolidation in the retrocardiac region. There are probably small bilateral pleural effusions. Findings are unchanged Impression: Unchanged, over 2 days, findings as above. Laboratory Tests Test 11/14/18 20:10 11/15/18 06:57 Vancomycin Level Trough 15.6 ug/mL (5.0-12.0) H White Blood Count 9.6 K/UL (4.8-10.8) Red Blood Count 2.73 M/UL (4.20-5.40) L Hemoglobin 8.5 G/DL (12.0-16.0) L Hematocrit 25.7 % (37.0-47.0) L Mean Corpuscular Volume 94 FL (80-99) Mean Corpuscular Hemoglobin 31.1 PG (27.0-31.0) H Mean Corpuscular Hemoglobin Concent 33.0 G/DL (32.0-36.0) Red Cell Distribution Width 12.0 % (11.6-14.8) Platelet Count 380 K/UL (150-450) Mean Platelet Volume 7.0 FL (6.5-10.1) Neutrophils (%) (Auto) 84.4 % (45.0-75.0) H Lymphocytes (%) (Auto) 12.4 % (20.0-45.0) L Monocytes (%) (Auto) 2.0 % (1.0-10.0) Eosinophils (%) (Auto) 1.0 % (0.0-3.0) Basophils (%) (Auto) 0.3 % (0.0-2.0) Sodium Level 141 MMOL/L (136-145) Potassium Level 3.2 MMOL/L (3.5-5.1) L Chloride Level 105 MMOL/L (98-107) Carbon Dioxide Level 31 MMOL/L (21-32) Anion Gap 5 mmol/L (5-15) Blood Urea Nitrogen 24 mg/dL (7-18) H Creatinine 0.8 MG/DL (0.55-1.30) Estimat Glomerular Filtration Rate mL/min (>60) Glucose Level 168 MG/DL (74-106) H Calcium Level 9.0 MG/DL (8.5-10.1) Magnesium Level 2.0 MG/DL (1.8-2.4) Total Bilirubin 0.3 MG/DL (0.2-1.0) Aspartate Amino Transf (AST/SGOT) 19 U/L (15-37) Alanine Aminotransferase (ALT/SGPT) 12 U/L (12-78) Alkaline Phosphatase 123 U/L (46-116) H Total Protein 6.5 G/DL (6.4-8.2) Albumin 1.4 G/DL (3.4-5.0) L Globulin 5.1 g/dL Albumin/Globulin Ratio 0.3 (1.0-2.7) L Current Medications Medications (Trade) Dose Ordered Sig/Wayne Route PRN Reason Start Time Stop Time Status Last Admin Dose Admin Acetaminophen (Tylenol) 650 mg Q4H PRN GT fever 11/14/18 14:53 12/14/18 14:52 Acetaminophen (Tylenol) 650 mg Q4H PRN GT Mild Pain (Pain Scale 1-3) 11/14/18 14:54 12/14/18 14:53 11/14/18 20:55 Albuterol/ Ipratropium (Albuterol/ Ipratropium) 3 ml Q6HRT HHN 11/14/18 19:00 11/18/18 18:59 11/15/18 07:43 Ascorbic Acid (Vitamin C) 500 mg DAILY GT 11/15/18 09:00 12/08/18 08:59 11/15/18 09:31 Aspirin (ASA) 81 mg DAILY GT 11/15/18 09:00 12/14/18 08:59 11/15/18 09:30 Atorvastatin Calcium (Lipitor) 40 mg BEDTIME GT 11/14/18 21:00 12/13/18 20:59 11/14/18 20:56 Ciprofloxacin (Cipro 500mg tab) 500 mg EVERY 12 HOURS GT 11/14/18 21:00 11/18/18 23:59 11/15/18 09:30 Dextrose (Dextrose 50%) 25 ml Q30M PRN IV Hypoglycemia 11/14/18 15:00 12/08/18 14:29 Dextrose (Dextrose 50%) 50 ml Q30M PRN IV Hypoglycemia 11/14/18 15:00 12/08/18 14:29 Famotidine (Pepcid) 20 mg BID GT 11/14/18 18:00 12/13/18 17:59 11/15/18 09:31 Furosemide (Lasix) 20 mg DAILY GT 11/15/18 09:00 12/14/18 08:59 11/15/18 09:31 Heparin Sodium (Porcine) (Heparin 5000 units/ml) 5,000 units EVERY 12 HOURS SUBQ 11/14/18 21:00 12/11/18 20:59 11/14/18 20:59 Hydromorphone HCl (Dilaudid) 1 mg Q6H PRN IVP Moderate Pain (Pain Scale 4-6) 11/14/18 14:55 11/21/18 14:54 Hydromorphone HCl (Dilaudid) 2 mg Q6H PRN IVP Severe Pain (Pain Scale 7-10) 11/14/18 14:55 11/21/18 14:54 Insulin Aspart (NovoLOG) Q6HR SUBQ 11/14/18 18:00 12/06/18 20:59 11/15/18 05:43 Insulin Aspart (NovoLOG) 7 units NOVOTIAC SUBQ 11/15/18 11:50 12/13/18 11:49 Insulin Detemir (Levemir) 25 units BEDTIME SUBQ 11/14/18 21:00 12/10/18 20:59 11/14/18 21:09 Metronidazole (Flagyl) 500 mg EVERY 8 HOURS GT 11/14/18 22:00 11/18/18 13:59 11/15/18 05:00 Ondansetron HCl (Zofran) 4 mg Q6H PRN IVP Nausea & Vomiting 11/14/18 15:00 12/08/18 14:59 Potassium Chloride 100 ml @ 100 mls/hr Q1HR IVPB 11/15/18 10:00 11/15/18 12:59 11/15/18 10:27 Sodium Chloride 300 ml @ 100 mls/hr Q3H IV 11/15/18 10:00 11/15/18 12:59 11/15/18 10:26 Vancomycin HCl (Vanco rx to dose) 1 ea DAILY PRN MISC Per rx protocol 11/15/18 09:00 12/06/18 16:59 Vancomycin HCl 500 mg/Dextrose 110 ml @ 110 mls/hr Q12HR IVPB 11/14/18 21:00 11/18/18 08:59 11/15/18 09:32 Milton Valladares MD Nov 15, 2018 11:22
--- NOTE | 2018-11-15 11:24 | Infectious Diseases Prog Note ---
Assessment/Plan Assessment/Plan ASSESSMENT AND PLAN: 1. sepsis, mrsa pna/pseudomonas pna, aspiration risk, chf/edema/atx, gertrudis uti , sacral wound, sirs, leukocytosis, fevers, bipap, sob/hypoxia, mary - vancomycin, ciprofloxacin and flagyl x 6 days - monitor labs, cultures noted, blood cultures negative - monitor chest x-ray - clinically improved, less sob - leukocytosis and fevers improved - wound care per surgery - d/w Dr. Kwok 2. Wound care per surgery and protocol. 3. Elevated creatinine with acute kidney injury. 4. Diabetes. 5. Hypertension. 6. Blood sugar and blood pressure treatment per primary consultants for diabetes and hypertension. 7. Anemia. 8. CVA. 9. Aspiration risk. 10. Aspiration precautions for CVA and aspiration risk. 11. Dysphagia. G-tube. 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 13. Dementia. 14. Encephalopathy. 15. History of sepsis and lactic acidosis. 16. No known drug allergies. 17. Family history is noncontributory. 18. Social history is negative. 19. MAR is noted. 20. Case was discussed with RN. 21. Continue treatment per primary consultants. 22. vre/mrsa colonization and isolation Subjective Constitutional: Reports: other - more alert, + bm; Denies: fever HEENT: Reports: congestion Respiratory: Reports: shortness of breath Cardiovascular: Denies: chest pain Gastrointestinal/Abdominal: Denies: nausea Genitourinary: Reports: other - + taylor Allergies: Coded Allergies: No Known Allergies (Unverified , 02/04/17) Objective Vital Signs Last 24 Hour Vital Signs Date Time Temp Pulse Resp B/P (MAP) Pulse Ox O2 Delivery O2 Flow Rate FiO2 11/15/18 08:00 97.6 85 18 115/53 (73) 95 11/15/18 07:43 95 Venturi Mask 8.0 40 11/15/18 07:43 76 22 100 Venturi Mask 8.0 40 75 22 95 11/15/18 04:00 98.4 75 18 124/66 (85) 100 11/15/18 04:00 40 11/15/18 03:59 75 11/15/18 00:38 100 22 99 Nasal Cannula 2.0 28 98 24 97 11/15/18 00:00 75 11/15/18 00:00 97.2 83 18 101/60 (74) 97 11/14/18 20:00 95 11/14/18 20:00 Nasal Cannula 2.0 11/14/18 20:00 2.0 11/14/18 20:00 99.5 100 18 131/68 (89) 11/14/18 19:14 104 24 99 Nasal Cannula 2.0 28 101 24 98 11/14/18 19:14 100 Nasal Cannula 2.0 28 11/14/18 16:00 2.0 11/14/18 16:00 Nasal Cannula 2.0 11/14/18 16:00 98.8 94 20 125/63 (83) 97 11/14/18 16:00 94 11/14/18 12:47 97 20 100 Nasal Cannula 2.0 28 93 22 96 11/14/18 12:00 98.1 93 20 117/60 (79) 100 11/14/18 12:00 2.0 11/14/18 12:00 Nasal Cannula 2.0 11/14/18 12:00 93 Height (Feet): 5 Height (Inches): 3.00 Weight (Pounds): 138 General Appearance: other - more alert, + bm, resp stable HEENT: normocephalic, atraumatic, anicteric Respiratory/Chest: crackles/rales, rhonchi - bilaterally Cardiovascular: normal rate, regular rhythm Abdomen: soft, non tender, no organomegaly Objective Chest x-ray - 11/08/18 - Basilar opacities likely represent atelectasis. Pneumonia not entirely excludable. The heart is enlarged. Mild pulmonary vascular congestion suspected and appears worse compared to the prior study. IMPRESSION: Suspected mild pulmonary vascular congestion, slightly worse. Basal atelectasis. Superimposed pneumonia not excluded Chest x-ray - 11/11/18 - FINDINGS: Lungs: Persistent increased interstitial markings. Unchanged mild bibasilar subcentimeter atelectasis versus infiltrates. Pleural space: Unremarkable. The costophrenic angles are sharp. No visible pneumothorax. Heart: Unremarkable. No cardiomegaly. Mediastinum: Unremarkable. Bones joints: Degenerative changes throughout the visualized spine and shoulder joints. Vasculature: Atherosclerotic calcifications within the aortic arch. Tubes, lines and devices: Telemetry leads overlie the thorax. IMPRESSION: 1. Persistent increased interstitial markings. This is nonspecific but may suggest pulmonary vascular congestion or a mild interstitial pneumonitis. 2. Unchanged mild bibasilar subsegmental atelectasis versus infiltrates. Chest x-ray - 11/12/18 Procedure: XRAY Chest 1v Indication: Shortness of breath Technique: One view of the chest Comparison: 11/10/2018 Findings: Bilateral interstitial and airspace disease is again demonstrated, with dense consolidation in the retrocardiac region. There are probably small bilateral pleural effusions. Findings are unchanged Impression: Unchanged, over 2 days, findings as above. Laboratory Tests Test 11/14/18 20:10 11/15/18 06:57 Vancomycin Level Trough 15.6 ug/mL (5.0-12.0) H White Blood Count 9.6 K/UL (4.8-10.8) Red Blood Count 2.73 M/UL (4.20-5.40) L Hemoglobin 8.5 G/DL (12.0-16.0) L Hematocrit 25.7 % (37.0-47.0) L Mean Corpuscular Volume 94 FL (80-99) Mean Corpuscular Hemoglobin 31.1 PG (27.0-31.0) H Mean Corpuscular Hemoglobin Concent 33.0 G/DL (32.0-36.0) Red Cell Distribution Width 12.0 % (11.6-14.8) Platelet Count 380 K/UL (150-450) Mean Platelet Volume 7.0 FL (6.5-10.1) Neutrophils (%) (Auto) 84.4 % (45.0-75.0) H Lymphocytes (%) (Auto) 12.4 % (20.0-45.0) L Monocytes (%) (Auto) 2.0 % (1.0-10.0) Eosinophils (%) (Auto) 1.0 % (0.0-3.0) Basophils (%) (Auto) 0.3 % (0.0-2.0) Sodium Level 141 MMOL/L (136-145) Potassium Level 3.2 MMOL/L (3.5-5.1) L Chloride Level 105 MMOL/L (98-107) Carbon Dioxide Level 31 MMOL/L (21-32) Anion Gap 5 mmol/L (5-15) Blood Urea Nitrogen 24 mg/dL (7-18) H Creatinine 0.8 MG/DL (0.55-1.30) Estimat Glomerular Filtration Rate mL/min (>60) Glucose Level 168 MG/DL (74-106) H Calcium Level 9.0 MG/DL (8.5-10.1) Magnesium Level 2.0 MG/DL (1.8-2.4) Total Bilirubin 0.3 MG/DL (0.2-1.0) Aspartate Amino Transf (AST/SGOT) 19 U/L (15-37) Alanine Aminotransferase (ALT/SGPT) 12 U/L (12-78) Alkaline Phosphatase 123 U/L (46-116) H Total Protein 6.5 G/DL (6.4-8.2) Albumin 1.4 G/DL (3.4-5.0) L Globulin 5.1 g/dL Albumin/Globulin Ratio 0.3 (1.0-2.7) L Current Medications Medications (Trade) Dose Ordered Sig/Wayne Route PRN Reason Start Time Stop Time Status Last Admin Dose Admin Acetaminophen (Tylenol) 650 mg Q4H PRN GT fever 11/14/18 14:53 12/14/18 14:52 Acetaminophen (Tylenol) 650 mg Q4H PRN GT Mild Pain (Pain Scale 1-3) 11/14/18 14:54 12/14/18 14:53 11/14/18 20:55 Albuterol/ Ipratropium (Albuterol/ Ipratropium) 3 ml Q6HRT HHN 11/14/18 19:00 11/18/18 18:59 11/15/18 07:43 Ascorbic Acid (Vitamin C) 500 mg DAILY GT 11/15/18 09:00 12/08/18 08:59 11/15/18 09:31 Aspirin (ASA) 81 mg DAILY GT 11/15/18 09:00 12/14/18 08:59 11/15/18 09:30 Atorvastatin Calcium (Lipitor) 40 mg BEDTIME GT 11/14/18 21:00 12/13/18 20:59 11/14/18 20:56 Ciprofloxacin (Cipro 500mg tab) 500 mg EVERY 12 HOURS GT 11/14/18 21:00 11/18/18 23:59 11/15/18 09:30 Dextrose (Dextrose 50%) 25 ml Q30M PRN IV Hypoglycemia 11/14/18 15:00 12/08/18 14:29 Dextrose (Dextrose 50%) 50 ml Q30M PRN IV Hypoglycemia 11/14/18 15:00 12/08/18 14:29 Famotidine (Pepcid) 20 mg BID GT 11/14/18 18:00 12/13/18 17:59 11/15/18 09:31 Furosemide (Lasix) 20 mg DAILY GT 11/15/18 09:00 12/14/18 08:59 11/15/18 09:31 Heparin Sodium (Porcine) (Heparin 5000 units/ml) 5,000 units EVERY 12 HOURS SUBQ 11/14/18 21:00 12/11/18 20:59 11/14/18 20:59 Hydromorphone HCl (Dilaudid) 1 mg Q6H PRN IVP Moderate Pain (Pain Scale 4-6) 11/14/18 14:55 11/21/18 14:54 Hydromorphone HCl (Dilaudid) 2 mg Q6H PRN IVP Severe Pain (Pain Scale 7-10) 11/14/18 14:55 11/21/18 14:54 Insulin Aspart (NovoLOG) Q6HR SUBQ 11/14/18 18:00 12/06/18 20:59 11/15/18 05:43 Insulin Aspart (NovoLOG) 7 units NOVOTIAC SUBQ 11/15/18 11:50 12/13/18 11:49 Insulin Detemir (Levemir) 25 units BEDTIME SUBQ 11/14/18 21:00 12/10/18 20:59 11/14/18 21:09 Metronidazole (Flagyl) 500 mg EVERY 8 HOURS GT 11/14/18 22:00 11/18/18 13:59 11/15/18 05:00 Ondansetron HCl (Zofran) 4 mg Q6H PRN IVP Nausea & Vomiting 11/14/18 15:00 12/08/18 14:59 Potassium Chloride 100 ml @ 100 mls/hr Q1HR IVPB 11/15/18 10:00 11/15/18 12:59 11/15/18 10:27 Sodium Chloride 300 ml @ 100 mls/hr Q3H IV 11/15/18 10:00 11/15/18 12:59 11/15/18 10:26 Vancomycin HCl (Vanco rx to dose) 1 ea DAILY PRN MISC Per rx protocol 11/15/18 09:00 12/06/18 16:59 Vancomycin HCl 500 mg/Dextrose 110 ml @ 110 mls/hr Q12HR IVPB 11/14/18 21:00 11/18/18 08:59 11/15/18 09:32 Milton Valladares MD Nov 15, 2018 11:24
--- NOTE | 2018-11-15 11:27 | Diagnostic Imaging Report ---
Indication: Dyspnea Comparison: 11/12/2018 A single view chest radiograph was obtained. Findings: Patchy interstitial opacities are demonstrated bilaterally. There is a consolidative focus at the left lung base with air bronchograms. The findings are unchanged. Lung volumes remain low. The heart is prominent in size. The bones are osteopenic. IMPRESSION: Suspect pulmonary vascular congestion. Left basilar airspace disease may be pneumonia or atelectasis. Correlate clinically
--- NOTE | 2018-11-15 11:38 | NUR ---
RD ASSESSMENT & RECOMMENDATIONS SEE CARE ACTIVITY FOR COMPLETE ASSESSMENT DAILY ESTIMATED NEEDS: Needs based on Wound, DM, sepsis 56kg 25-30 kcals/kg 0574-8161 total kcals 1.5-2 g protein/kg 84-112 g total protein 25-30 mL/kg 6540-3297 total fluid mLs NUTRITION DIAGNOSIS: 1) Swallowing difficulty R/T dysphagia, CVA as evidenced by PEG dependent. 2) Increased kcal and pro needs r/t wound healing, increased metabolic rate as evidenced by admitted w/ stage 4 sacral wound, sepsis dx w/ elev wbc -> now wnl, now afebrile, elev LA-> now wnl, elev BGs (414, 466-> now in 200's + 300's). CURRENT TF:Glucerna 1.5 @ 45ml/hr x 24 hrs ENTERAL NUTRITION RECOMMENDATIONS: Glucerna 1.5 @ 45ml/hr x 24 hrs to provide 1080ml, 1620kcal, 89g prot, 820ml free water - Maintain current TF - HOB over 30 degrees/ water flush per MD ADDITIONAL RECOMMENDATIONS: 1) Calibrated bedscale wt for accurate CBW- w/ added P200 mattress + pump 2) Wound healing: Continue Vit C 500mg QD + Gonsalo 1pkt BID add ZnSO4 220 mg daily x10 days 3) Monitor lytes daily, replete as needed: low K 4) Monitor BGs closely, consider increasing Levemir . .
[2018-11-15 12:00] VITALS: BP 102/54
--- NOTE | 2018-11-15 13:00 | NUR ---
NURSE NOTES: Dr. Nevarez ordered Bipap PRN or Qhs. The respiratory therapist at the bedside together and understood the order. Will continue plan of care.
--- NOTE | 2018-11-15 13:05 | Diagnostic Imaging Report ---
APPROVED REPORT CPT Code: 31503 Present Symptoms Comments: BILATERAL LEGS PAIN. BILATERAL: Imaging reveals a patent deep venous system bilaterally. There is no evidence of thrombus within the femoral, popliteal or tibial segments. The greater saphenous veins are also within normal limits. Doppler indicates normal spontaneous flow within these segments.
--- NOTE | 2018-11-15 14:45 | General Progress Note ---
Assessment/Plan Problem List: (1) Renal insufficiency ICD Codes: N28.9 - Disorder of kidney and ureter, unspecified; R65.20 - Severe sepsis without septic shock SNOMED: 662794344, 665813174 (2) Severe sepsis ICD Codes: A41.9 - Sepsis, unspecified organism; R65.20 - Severe sepsis without septic shock SNOMED: 31976282 (3) Septic shock ICD Codes: A41.9 - Sepsis, unspecified organism; R65.21 - Severe sepsis with septic shock SNOMED: 93203783 (4) Sacral decubitus ulcer, stage IV ICD Codes: L89.154 - Pressure ulcer of sacral region, stage 4 SNOMED: 909812804, 702005912 (5) SOB (shortness of breath) ICD Codes: R06.02 - Shortness of breath SNOMED: 246001482 (6) Respiratory failure with hypoxia and hypercapnia ICD Codes: J96.91 - Respiratory failure, unspecified with hypoxia; J96.92 - Respiratory failure, unspecified with hypercapnia SNOMED: 17111769 (7) G tube feedings ICD Codes: Z93.1 - Gastrostomy status SNOMED: 363683434, 329892015, 199212227 (8) Electrolyte imbalance ICD Codes: E87.8 - Other disorders of electrolyte and fluid balance, not elsewhere classified SNOMED: 184512525 (9) Altered mental status ICD Codes: R41.82 - Altered mental status, unspecified SNOMED: 401613458 (10) H/O: CVA (cerebrovascular accident) ICD Codes: Z86.73 - Personal history of transient ischemic attack (TIA), and cerebral infarction without residual deficits SNOMED: 763465405 (11) Pneumonia ICD Codes: J18.9 - Pneumonia, unspecified organism SNOMED: 479609451 Qualifiers: Qualified Codes: J18.1 - Lobar pneumonia, unspecified organism (12) KEL (acute kidney injury) ICD Codes: N17.9 - Acute kidney failure, unspecified SNOMED: 1016030, 26509512 (13) Ventilator dependence ICD Codes: Z99.11 - Dependence on respirator [ventilator] status SNOMED: 008210887 (14) Endotracheally intubated ICD Codes: Z97.8 - Presence of other specified devices SNOMED: 269387055 (15) Hypokalemia ICD Codes: E87.6 - Hypokalemia SNOMED: 85523613 (16) Hypercalcemia ICD Codes: E83.52 - Hypercalcemia SNOMED: 10278753 (17) Abscess ICD Codes: L02.91 - Cutaneous abscess, unspecified SNOMED: 825450743 (18) Rash ICD Codes: R21 - Rash and other nonspecific skin eruption SNOMED: 682583080 (19) Hypernatremia ICD Codes: E87.0 - Hyperosmolality and hypernatremia SNOMED: 44466230 (20) HTN (hypertension) ICD Codes: I10 - Essential (primary) hypertension SNOMED: 05920768 (21) Elevated troponin ICD Codes: R74.8 - Abnormal levels of other serum enzymes SNOMED: 958469974, 981396611 (22) Encounter for PEG (percutaneous endoscopic gastrostomy) ICD Codes: Z43.1 - Encounter for attention to gastrostomy SNOMED: 853296856, 442966283 (23) MRSA infection ICD Codes: A49.02 - Methicillin resistant Staphylococcus aureus infection, unspecified site SNOMED: 867131317 (24) PNA (pneumonia) ICD Codes: J18.9 - Pneumonia, unspecified organism SNOMED: 457796515 (25) Hyperglycemia due to type 2 diabetes mellitus ICD Codes: E11.65 - Type 2 diabetes mellitus with hyperglycemia SNOMED: 06037692, 220895606623091 (26) Upper sacral area unstageable pressure ulcer (27) Large ischemic R MCA stroke (28) UTI (urinary tract infection) ICD Codes: N39.0 - Urinary tract infection, site not specified SNOMED: 65433142 (29) Perineal area gertrudis rashes extending to left and right buttocks (30) Right lateral malleolus stage I pressure ulcer (31) Respiratory failure ICD Codes: J96.90 - Respiratory failure, unspecified, unspecified whether with hypoxia or hypercapnia SNOMED: 747405661 (32) DM (diabetes mellitus) ICD Codes: E11.9 - Type 2 diabetes mellitus without complications SNOMED: 00827891 (33) Hypernatremia ICD Codes: E87.0 - Hyperosmolality and hypernatremia SNOMED: 658548593 (34) Lactic acid acidosis ICD Codes: E87.2 - Acidosis SNOMED: 10154829 (35) Toxic metabolic encephalopathy ICD Codes: G92 - Toxic encephalopathy SNOMED: 729257386 (36) Dehydration ICD Codes: E86.0 - Dehydration SNOMED: 19185913 (37) Sepsis ICD Codes: A41.9 - Sepsis, unspecified organism SNOMED: 68444207 Status: progressing Assessment/Plan: Tami Doe is a 78 year old female who was undergoing antibiotic therapy for PNA with meropenem at [facility] sent in to the hospital with fever and desaturation. Found to have leukocytosis, fevers, Lactate 4.2. Admitted for septic shock due to pneumonia vs. UTI, acute metabolic encephalopathy, acute hypoxic hypercapnic respiratory failure, severe dehydration, hypernatremia and KEL. Upgraded to ICU due to worsening respiratory failure, now DNR/DNI after family discussion. Improved, now on nasal cannula. # S/p septic shock due to pseudomonas PNA, fungal UTI. doubt infected sacral decubitus. - IMPROVING -S/p fluconazole, meropenem, and polymyxin per ID, -ID consult. Dr. Solis, appreciate recs regarding length of antibiotics. - Change to Vanc, Cipro, and Flagyl. Treat for one more week (14 days total), end date 11/22/18. d/w Dr. Solis -Blood cultures negative. Urine growing yeast. sputum culture with pseudomonas and MRSA -Leukocytosis resolved # Acute hypoxic hypercarbic respiratory failure. - IMPROVING - Appreciate pulmonology recommendations: Dr. Milner - Treat pneumonia as above - Per discussion with Dr. Milner: BiPAP QHS and 2L nasal cannula during the day - Continue BIPAP PRN as well #right foot blister 2/2 IV infiltration - wound care - General surgery following: Dr. Jackson. Appreciate recs #Toxic metabolic encephalopathy - RESOLVED. Treat sepsis and respiratory failure - back to baseline per son # Severe dehydration and hypernatremia. Continue Free water via PEG . Hypernatremia resolved on labs today # History of CVA: Hold antihypertensives given sepsis and borderline BP. # Sacral decub. Dr. Jackson, wound care consult # DM II with hyperglycemia. - IMPROVING - Continue levemir to 25 units QHS. FBS 173 this AM - INCREASE Novolog to 7 units TIDAC. Pre meal averaging 250-300. - Continue accuchecks and SSI # KEL. pre-renal due to severe dehydration. avoid nephrotoxic medications. - RESOLVED. Nephrology consult: Dr. Vernon. KEL resolved. # Troponin elevation. No acute ekg changes, demand ischemia. # Thrombocytopenia. Due to sepsis. Platelet trended down yesterday and heparin held, improved today, will resume for now # Moderate protein calorie malnutrition. Resumed feeds via PEG, tolerating. Aspiration precautions. High aspiration risk # hypokalemia repleted. Continue to monitor #hypomagnesemia: repleted. Continue to monitor # Pain control: Dilaudid prn vte ppx: heparin subq GI ppx: IV pantoprazole Diet: resumed peg feeds, free water via peg Code status: DNR/DNI, prognosis guarded Dispo: DC back to SNF tomorrow if tolerates BiPAP QHS Discussed with RN, immigration case worker, pulmonology, and infectious disease. I spent 37 minutes on this patient's case including >50% time dedicated to counseling and/or coordination of care. Subjective Date patient seen: Nov 15, 2018 ROS Limited/Unobtainable: Yes - patient nonverbal Allergies: Coded Allergies: No Known Allergies (Unverified , 02/04/17) Subjective NO acute events overnight per nursing. PNA: Stable. Patient with increased WOB overnight but no desats. Placed on venturi mask. titrated down to nasal cannula 2L during the day. No cough or purulence. Patient more alert today. Further subjective history unable to obtain as patient nonverbal Objective Last 24 Hour Vital Signs Date Time Temp Pulse Resp B/P (MAP) Pulse Ox O2 Delivery O2 Flow Rate FiO2 11/15/18 13:43 76 22 100 Nasal Cannula 2.0 28 76 20 99 11/15/18 12:00 97.4 83 18 102/54 (70) 99 11/15/18 12:00 2.0 11/15/18 09:00 Nasal Cannula 2.0 11/15/18 08:00 2.0 11/15/18 08:00 97.6 85 18 115/53 (73) 95 11/15/18 07:43 95 Venturi Mask 8.0 40 11/15/18 07:43 76 22 100 Venturi Mask 8.0 40 75 22 95 11/15/18 04:00 98.4 75 18 124/66 (85) 100 11/15/18 04:00 40 11/15/18 03:59 75 11/15/18 00:38 100 22 99 Nasal Cannula 2.0 28 98 24 97 11/15/18 00:00 75 11/15/18 00:00 97.2 83 18 101/60 (74) 97 11/14/18 20:00 95 11/14/18 20:00 Nasal Cannula 2.0 11/14/18 20:00 2.0 11/14/18 20:00 99.5 100 18 131/68 (89) 11/14/18 19:14 104 24 99 Nasal Cannula 2.0 28 101 24 98 11/14/18 19:14 100 Nasal Cannula 2.0 28 11/14/18 16:00 2.0 11/14/18 16:00 Nasal Cannula 2.0 11/14/18 16:00 98.8 94 20 125/63 (83) 97 11/14/18 16:00 94 Intake and Output 11/14/18 11/15/18 18:59 06:59 Intake Total 1910 ml 415 ml Output Total 500 ml 800 ml Balance 1410 ml -385 ml Intake Oral 0 ml 0 ml Free Water 100 ml 60 ml IV Total 1200 ml Tube Feeding 110 ml 55 ml Blood Product 100 ml Other 400 ml 300 ml Output Urine Total 500 ml 800 ml # Voids 2 # Bowel Movements 1 Laboratory Tests 11/14/18 20:10: Vancomycin Level Trough 15.6H 11/15/18 06:57: White Blood Count 9.6, Red Blood Count 2.73L, Hemoglobin 8.5L, Hematocrit 25.7L , Mean Corpuscular Volume 94, Mean Corpuscular Hemoglobin 31.1H, Mean Corpuscular Hemoglobin Concent 33.0, Red Cell Distribution Width 12.0, Platelet Count 380, Mean Platelet Volume 7.0, Neutrophils (%) (Auto) 84.4H, Lymphocytes ( %) (Auto) 12.4L, Monocytes (%) (Auto) 2.0, Eosinophils (%) (Auto) 1.0, Basophils (%) (Auto) 0.3, Sodium Level 141, Potassium Level 3.2L, Chloride Level 105, Carbon Dioxide Level 31, Anion Gap 5, Blood Urea Nitrogen 24H, Creatinine 0.8, Estimat Glomerular Filtration Rate , Glucose Level 168H, Calcium Level 9.0, Magnesium Level 2.0, Total Bilirubin 0.3, Aspartate Amino Transf (AST/SGOT) 19, Alanine Aminotransferase (ALT/SGPT) 12, Alkaline Phosphatase 123H, Total Protein 6.5, Albumin 1.4L, Globulin 5.1, Albumin/ Globulin Ratio 0.3L Height (Feet): 5 Height (Inches): 3.00 Weight (Pounds): 138 General Appearance: WD/WN, no apparent distress, alert EENT: PERRL/EOMI, normal ENT inspection Neck: non-tender, normal alignment Cardiovascular: normal peripheral pulses, normal rate, regular rhythm Respiratory/Chest: chest wall non-tender, lungs clear, normal breath sounds Abdomen: normal bowel sounds, non tender, soft Extremities: normal range of motion, other - no LE edema bilatearlly Neurologic: construction manager II-XII grossly normal, no motor/sensory deficits, alert - moves all extremities 2/5. No new focal changes Skin: normal pigmentation, other - stage IV sacral decubitus ulcer. right foot blister, no erythema/warmth Parviz Kwok D.O. Nov 15, 2018 14:45
[2018-11-15] MEDS ORDERED: Amikacin 800 MG in NS 110 ML IV SCH (15:00)
[2018-11-15 16:00] VITALS: BP 114/56
--- NOTE | 2018-11-15 18:00 | NUR ---
NURSE NOTES: The patient is stable without acute distress or shortness of breath. Will continue plan of care.
--- NOTE | 2018-11-15 19:09 | Surgery Progress Note ---
Surgery Progress Note Subjective Symptoms: improved Additional Comments no acute events stable Objective Last 24 Hour Vital Signs Date Time Temp Pulse Resp B/P (MAP) Pulse Ox O2 Delivery O2 Flow Rate FiO2 11/15/18 16:00 2.0 11/15/18 16:00 77 11/15/18 16:00 97.4 80 18 114/56 (75) 99 11/15/18 13:43 76 22 100 Nasal Cannula 2.0 28 76 20 99 11/15/18 12:00 88 11/15/18 12:00 97.4 83 18 102/54 (70) 99 11/15/18 12:00 2.0 11/15/18 09:00 Nasal Cannula 2.0 11/15/18 08:00 73 11/15/18 08:00 2.0 11/15/18 08:00 97.6 85 18 115/53 (73) 95 11/15/18 07:43 95 Venturi Mask 8.0 40 11/15/18 07:43 76 22 100 Venturi Mask 8.0 40 75 22 95 11/15/18 04:00 98.4 75 18 124/66 (85) 100 11/15/18 04:00 40 11/15/18 03:59 75 11/15/18 00:38 100 22 99 Nasal Cannula 2.0 28 98 24 97 11/15/18 00:00 75 11/15/18 00:00 97.2 83 18 101/60 (74) 97 11/14/18 20:00 95 11/14/18 20:00 Nasal Cannula 2.0 11/14/18 20:00 2.0 11/14/18 20:00 99.5 100 18 131/68 (89) 11/14/18 19:14 104 24 99 Nasal Cannula 2.0 28 101 24 98 11/14/18 19:14 100 Nasal Cannula 2.0 28 I&O Intake and Output 11/14/18 11/15/18 19:00 07:00 Intake Total 1855 ml 470 ml Output Total 500 ml 800 ml Balance 1355 ml -330 ml Intake Oral 0 ml 0 ml Free Water 100 ml 60 ml IV Total 1200 ml Tube Feeding 55 ml 110 ml Blood Product 100 ml Other 400 ml 300 ml Output Urine Total 500 ml 800 ml # Voids 2 # Bowel Movements 1 Dressing: saturated Wound: clean Cardiovascular: RSR Respiratory: clear Abdomen: soft, flat, non-tender, present bowel sounds Extremities: edema, no cyanosis Laboratory Tests Test 11/14/18 20:10 11/15/18 06:57 Vancomycin Level Trough 15.6 ug/mL (5.0-12.0) H White Blood Count 9.6 K/UL (4.8-10.8) Red Blood Count 2.73 M/UL (4.20-5.40) L Hemoglobin 8.5 G/DL (12.0-16.0) L Hematocrit 25.7 % (37.0-47.0) L Mean Corpuscular Volume 94 FL (80-99) Mean Corpuscular Hemoglobin 31.1 PG (27.0-31.0) H Mean Corpuscular Hemoglobin Concent 33.0 G/DL (32.0-36.0) Red Cell Distribution Width 12.0 % (11.6-14.8) Platelet Count 380 K/UL (150-450) Mean Platelet Volume 7.0 FL (6.5-10.1) Neutrophils (%) (Auto) 84.4 % (45.0-75.0) H Lymphocytes (%) (Auto) 12.4 % (20.0-45.0) L Monocytes (%) (Auto) 2.0 % (1.0-10.0) Eosinophils (%) (Auto) 1.0 % (0.0-3.0) Basophils (%) (Auto) 0.3 % (0.0-2.0) Sodium Level 141 MMOL/L (136-145) Potassium Level 3.2 MMOL/L (3.5-5.1) L Chloride Level 105 MMOL/L (98-107) Carbon Dioxide Level 31 MMOL/L (21-32) Anion Gap 5 mmol/L (5-15) Blood Urea Nitrogen 24 mg/dL (7-18) H Creatinine 0.8 MG/DL (0.55-1.30) Estimat Glomerular Filtration Rate mL/min (>60) Glucose Level 168 MG/DL (74-106) H Calcium Level 9.0 MG/DL (8.5-10.1) Magnesium Level 2.0 MG/DL (1.8-2.4) Total Bilirubin 0.3 MG/DL (0.2-1.0) Aspartate Amino Transf (AST/SGOT) 19 U/L (15-37) Alanine Aminotransferase (ALT/SGPT) 12 U/L (12-78) Alkaline Phosphatase 123 U/L (46-116) H Total Protein 6.5 G/DL (6.4-8.2) Albumin 1.4 G/DL (3.4-5.0) L Globulin 5.1 g/dL Albumin/Globulin Ratio 0.3 (1.0-2.7) L Plan Problems: (1) Severe sepsis Assessment & Plan: IV fluids IV abx trend labs will follow with recs wounds stable and not etiology of sepsis (2) Sacral decubitus ulcer, stage IV Assessment & Plan: Full thickness pressure injury sacrococcygeal with 100%soft necrosis at base of wound (L)3.5cm x (W)3cm Periwound purple/black and indurated ,an area measuring 9.5cm x (W)11cm. No odor or exudate noted. Large serous filled blister oozing small amt serous exudate noted to eliezer R tibia. No erythema noted.(L)9cm x (W)4.2cm. Blood filled blister noted to R heel (L)2.5cm x (W)2cm with surrounding non- blanching erythema with fluctuance.(L)5.5cm x (W)6.5cm. Non-blanching erythema without fluctuance noted to L heel. Pt has an APM with ALBIN mattress on her bed and positioned with pillows with both heels floated off bed. Wound care tx orders continued as ordered. Tx.Plan: Cleanse sacral wound with Saline. Apply Therahoney. Apply Moisture Barrier Paste periwound. Cover with Optifoam Drsg every 3days and prn. Apply Cavilon Skin Barrier to Blister eliezer R tibia. Cover with Optifoam drsg. Change every 7 days and prn. Apply Cavilon Skin Barrier to both heels. Cover each heel with Optifoam drsg. Change every 7 days and prn. APM/Albin Mattress overlay. Reposition at least every 2hours or as tolerated. Off-load heels with pillow. (3) G tube feedings Assessment & Plan: DAILY ESTIMATED NEEDS: Needs based on Wound, DM, sepsis 56kg 25-30 kcals/kg 9263-8463 total kcals 1.25-2 g protein/kg 70-112 g total protein 25-30 mL/kg 6733-8046 total fluid mLs NUTRITION DIAGNOSIS: 1) Swallowing difficulty R/T dysphagia, CVA as evidenced by PEG dependent. 2) Increased kcal and pro needs r/t wound healing, increased metabolic rate as evidenced by admitted w/ sacral wound per photo, pending evaluation, sepsis dx w/ elev wbc, febrile, elev LA, elev BGs (414, 466). . CURRENT TF:NPO ENTERAL NUTRITION RECOMMENDATIONS: Glucerna 1.2 @ 55ml/hr x24 hrs to provide 1320ml, 1584kcal, 79g prot, 1063ml free water - As medically appropriate, initiate Glucerna 1.2 @ 35ml/hr - Advance TF 10ml q 4-6 hrs as tolerated to goal rate - HOB over 30 degrees/ water flush per MD ADDITIONAL RECOMMENDATIONS: 1) Calibrated bedscale wt for accurate CBW- w/ added P200 mattress + pump 2) Rec long acting insulin for improved BG control once TF initiates -> BGs in the 300's + 400's 3) Wound healing: add Vit C 500mg QD + Gonsalo 1pkt BID 4) Monitor lytes daily, replete as needed (4) Electrolyte imbalance (5) Ventilator dependence Akhil Jackson Nov 15, 2018 19:09
--- NOTE | 2018-11-15 19:20 | NUR ---
HAND-OFF: Report given to Bethany RN. The patient is sleeping on the bed without acute distress or shortness of breath. The patient's bed in the lowest position, call light in reach, and fall and aspiration precaution reinforced. G-tube patent and intact. IV site intact and patent. Endorsed plan of care.
--- NOTE | 2018-11-15 19:49 | NUR ---
NURSE NOTES: Received patient from FELIX Richards. Patient resting in bed comfortably. No signs of distress or pain noted. Patient is nonverbal, unable to make needs known, will anticipate to make needs met. Patient on 2L NC, signs of shortness of breath. IV site checked, intact and patent, no signs of erythema, bleeding, or infiltration. Tube feeding, Glucerna 1.5, running at 45 mL/hr (goal), g-tube flushed and patent. Bed in lowest position, brakes on, siderails up x3, and call light within reach. Will continue with plan of care.
[2018-11-15 20:00] VITALS: BP 126/64
[2018-11-15] MEDS: Atorvastatin 20mg tab GT SCH (22:04)
[2018-11-15] MEDS: Levemir Flexpen SUBQ SCH (22:05)
[2018-11-16] VITALS: BP 100/46
[2018-11-16] MEDS: NovoLOG Insulin Flexpen SUBQ SCH ×8 (00:18→17:48)
[2018-11-16] MEDS: Albuterol/Ipratropium 3ml neb HHN SCH ×4 (01:27→19:59)
--- NOTE | 2018-11-16 03:06 | NUR ---
TRANSFER TO FLOOR: Report given to FELIX Mckeon. Patient was transferred to [address] [place] [address] from telemetry floor without incident. No signs of acute distress or pain noted at this time. Patient taken off tele box, tolerated well. Belongings list checked with receiving RN. Wound photos taken with transferring RN. Bed at lowest position, brakes on, siderails up x3, call light within reach.
--- NOTE | 2018-11-16 03:20 | NUR ---
NURSE NOTES: Patient transferred from tele. Report received from FELIX Bermudez and FELIX Oleary. Patient is resting in bed, nonverbal and unable to make needs known. No signs of distress or SOB. Wound pics taken. IV is intact and patent. G-tube in place with Glucerna 1.5 running at 45 ml/hr. Bed locked and in lowest position, 3x siderails up. HOB elevated. Bed alarm on. Call light in reach. Will continue to monitor.
[2018-11-16 03:30] VITALS: BP 127/55
[2018-11-16] MEDS: metroNIDAZOLE 500mg tab GT SCH ×2 (05:16→13:39)
[2018-11-16 07:10] LABS: HEMATOCRIT 25.3 % (37.0-47.0); HEMOGLOBIN 8.5 G/DL (12.0-16.0); MEAN CORPUSCULAR VOLUME 95 FL (80-99); PLATELET COUNT 472 K/UL (150-450); RED BLOOD COUNT 2.67 M/UL (4.20-5.40); WHITE BLOOD COUNT 8.8 K/UL (4.8-10.8)
[2018-11-16 07:30] LABS: ALANINE AMINOTRANSFERASE 14 U/L (12-78); ALBUMIN 1.5 G/DL (3.4-5.0); ALBUMIN/GLOBULIN RATIO 0.3 (1.0-2.7); ALKALINE PHOSPHATASE 125 U/L (46-116); ANION GAP 6 mmol/L (5-15); ASPARTATE AMINO TRANSFERASE 19 U/L (15-37); BILIRUBIN,TOTAL 0.2 MG/DL (0.2-1.0); BLOOD UREA NITROGEN 29 mg/dL (7-18); CALCIUM 8.8 MG/DL (8.5-10.1); CARBON DIOXIDE 30 MMOL/L (21-32); CHLORIDE 103 MMOL/L (98-107); CREATININE 0.9 MG/DL (0.55-1.30); POTASSIUM 4.2 MMOL/L (3.5-5.1); SODIUM 139 MMOL/L (136-145)
--- NOTE | 2018-11-16 07:45 | NUR ---
HAND-OFF: Report given to FELIX Cui.
[2018-11-16 08:00] VITALS: BP 118/63
[2018-11-16] MEDS: Aspirin Baby 81mg GT SCH (08:23)
[2018-11-16] MEDS: Ciprofloxacin 500mg tab GT SCH (08:23)
[2018-11-16] MEDS: Ascorbic Acid 500mg tab GT SCH (08:23)
[2018-11-16] MEDS: Vancomycin 500 MG in D5W 110 ML IVPB SCH (08:30)
[2018-11-16] MEDS: Heparin 5000 units/ml inj SUBQ SCH (08:31)
--- NOTE | 2018-11-16 08:50 | Pulmonology Progress Note ---
Assessment/Plan Problems: (1) Respiratory failure with hypoxia and hypercapnia (2) SOB (shortness of breath) (3) Septic shock (4) G tube feedings (5) H/O: CVA (cerebrovascular accident) (6) Altered mental status (7) Electrolyte imbalance (8) Pneumonia (9) KEL (acute kidney injury) (10) Hypernatremia (11) HTN (hypertension) (12) UTI (urinary tract infection) (13) DM (diabetes mellitus) (14) Dehydration Assessment/Plan Optimize pulmonary hygiene/mobilize as tolerated Titrate down FiO2 to keep SaO2 > 90% D/C BiPAP HHN's Abx per ID Monitor volumes and renal function DVT Px: Hep SQ DNAR/DNI, continue to discuss GOC Subjective Allergies: Coded Allergies: No Known Allergies (Unverified , 02/04/17) Subjective Transferred to [facility] O2 needs stable No distress No report of coughing or SOB Objective Last 24 Hour Vital Signs Date Time Temp Pulse Resp B/P (MAP) Pulse Ox O2 Delivery O2 Flow Rate FiO2 11/16/18 08:00 98.9 92 19 118/63 (81) 97 11/16/18 07:18 88 19 99 Nasal Cannula 2.0 28 84 20 95 11/16/18 07:08 95 Nasal Cannula 2.0 28 11/16/18 04:00 2.0 11/16/18 03:30 98.1 97 18 127/55 (79) 96 11/16/18 01:28 78 18 100 Nasal Cannula 2.0 28 74 18 98 11/16/18 00:00 98.5 77 20 100/46 (64) 98 11/16/18 00:00 83 11/15/18 21:00 Nasal Cannula 2.0 11/15/18 20:44 2.0 11/15/18 20:00 80 11/15/18 20:00 98.8 88 20 126/64 (84) 98 11/15/18 19:11 80 18 100 Nasal Cannula 2.0 28 78 18 97 11/15/18 19:08 97 Nasal Cannula 2.0 28 11/15/18 16:00 2.0 11/15/18 16:00 77 11/15/18 16:00 97.4 80 18 114/56 (75) 99 11/15/18 13:43 76 22 100 Nasal Cannula 2.0 28 76 20 99 11/15/18 12:00 88 11/15/18 12:00 97.4 83 18 102/54 (70) 99 11/15/18 12:00 2.0 11/15/18 09:00 Nasal Cannula 2.0 Intake and Output 11/15/18 11/16/18 19:00 07:00 Intake Total 1770 ml 1540 ml Output Total 1000 ml 1700 ml Balance 770 ml -160 ml Free Water 600 ml 500 ml Tube Feeding 570 ml 540 ml Other 600 ml 500 ml Output Urine Total 1000 ml 1700 ml # Bowel Movements 1 1 General Appearance: no acute distress, cachetic HEENT: normocephalic, atraumatic, anicteric, mucous membranes moist Respiratory/Chest: chest wall non-tender, crackles/rales Cardiovascular: normal peripheral pulses, normal rate, regular rhythm Abdomen: normal bowel sounds, soft, non tender, no organomegaly, non distended , no mass, other - GT Extremities: no cyanosis, no clubbing, no edema Laboratory Tests 11/16/18 06:44: White Blood Count 8.8, Red Blood Count 2.67L, Hemoglobin 8.5L, Hematocrit 25.3L , Mean Corpuscular Volume 95, Mean Corpuscular Hemoglobin 31.7H, Mean Corpuscular Hemoglobin Concent 33.4, Red Cell Distribution Width 12.0, Platelet Count 472H, Mean Platelet Volume 7.0, Neutrophils (%) (Auto) , Lymphocytes (%) ( Auto) , Monocytes (%) (Auto) , Eosinophils (%) (Auto) , Basophils (%) (Auto) , Neutrophils % (Manual) [Pending], Lymphocytes % (Manual) [Pending], Platelet Estimate [Pending], Platelet Morphology [Pending], Sodium Level 139, Potassium Level 4.2, Chloride Level 103, Carbon Dioxide Level 30, Anion Gap 6, Blood Urea Nitrogen 29H, Creatinine 0.9, Estimat Glomerular Filtration Rate , Glucose Level 336#H, Calcium Level 8.8, Magnesium Level 1.5L, Total Bilirubin 0.2, Aspartate Amino Transf (AST/SGOT) 19, Alanine Aminotransferase (ALT/SGPT) 14, Alkaline Phosphatase 125H, Total Protein 6.6, Albumin 1.5L, Globulin 5.1, Albumin/Globulin Ratio 0.3L Current Medications Medications (Trade) Dose Ordered Sig/Wayne Route PRN Reason Start Time Stop Time Status Last Admin Dose Admin Acetaminophen (Tylenol) 650 mg Q4H PRN GT fever 11/14/18 14:53 12/14/18 14:52 Acetaminophen (Tylenol) 650 mg Q4H PRN GT Mild Pain (Pain Scale 1-3) 11/14/18 14:54 12/14/18 14:53 11/14/18 20:55 Albuterol/ Ipratropium (Albuterol/ Ipratropium) 3 ml Q6HRT HHN 11/14/18 19:00 11/18/18 18:59 11/16/18 07:08 Ascorbic Acid (Vitamin C) 500 mg DAILY GT 11/15/18 09:00 12/08/18 08:59 11/16/18 08:23 Aspirin (ASA) 81 mg DAILY GT 11/15/18 09:00 12/14/18 08:59 11/16/18 08:23 Atorvastatin Calcium (Lipitor) 40 mg BEDTIME GT 11/14/18 21:00 12/13/18 20:59 11/15/18 22:04 Ciprofloxacin (Cipro 500mg tab) 500 mg EVERY 12 HOURS GT 11/14/18 21:00 11/18/18 23:59 11/16/18 08:23 Dextrose (Dextrose 50%) 25 ml Q30M PRN IV Hypoglycemia 11/14/18 15:00 12/08/18 14:29 Dextrose (Dextrose 50%) 50 ml Q30M PRN IV Hypoglycemia 11/14/18 15:00 12/08/18 14:29 Famotidine (Pepcid) 20 mg BID GT 11/14/18 18:00 12/13/18 17:59 11/16/18 08:23 Furosemide (Lasix) 20 mg DAILY GT 11/15/18 09:00 12/14/18 08:59 11/16/18 08:23 Heparin Sodium (Porcine) (Heparin 5000 units/ml) 5,000 units EVERY 12 HOURS SUBQ 11/14/18 21:00 12/11/18 20:59 11/16/18 08:31 Hydromorphone HCl (Dilaudid) 1 mg Q6H PRN IVP Moderate Pain (Pain Scale 4-6) 11/14/18 14:55 10/9/19 14:54 Hydromorphone HCl (Dilaudid) 2 mg Q6H PRN IVP Severe Pain (Pain Scale 7-10) 11/14/18 14:55 11/21/18 14:54 Insulin Aspart (NovoLOG) Q6HR SUBQ 11/14/18 18:00 12/06/18 20:59 11/16/18 06:00 Insulin Aspart (NovoLOG) 7 units NOVOTIAC SUBQ 11/15/18 11:50 12/13/18 11:49 11/16/18 06:00 Insulin Detemir (Levemir) 25 units BEDTIME SUBQ 11/14/18 21:00 12/10/18 20:59 11/15/18 22:05 Metronidazole (Flagyl) 500 mg EVERY 8 HOURS GT 11/14/18 22:00 11/18/18 13:59 11/16/18 05:16 Ondansetron HCl (Zofran) 4 mg Q6H PRN IVP Nausea & Vomiting 11/14/18 15:00 12/08/18 14:59 Vancomycin HCl (Vanco rx to dose) 1 ea DAILY PRN MISC Per rx protocol 11/15/18 09:00 12/06/18 16:59 Vancomycin HCl 500 mg/Dextrose 110 ml @ 110 mls/hr Q12HR IVPB 11/14/18 21:00 11/18/18 08:59 11/16/18 08:30 Bimal Milner MD Nov 16, 2018 08:50
[2018-11-16] MEDS ORDERED: Levemir Flexpen SUBQ SCH ×2 (11:45→21:00)
[2018-11-16 12:00] VITALS: BP 117/59
--- NOTE | 2018-11-16 13:04 | Surgery Progress Note ---
Surgery Progress Note Subjective Symptoms: improved, voiding well, passing flatus Objective Last 24 Hour Vital Signs Date Time Temp Pulse Resp B/P (MAP) Pulse Ox O2 Delivery O2 Flow Rate FiO2 11/16/18 09:00 Nasal Cannula 2.0 11/16/18 08:00 98.9 92 19 118/63 (81) 97 11/16/18 07:18 88 19 99 Nasal Cannula 2.0 28 84 20 95 11/16/18 07:08 95 Nasal Cannula 2.0 28 11/16/18 04:00 2.0 11/16/18 03:30 98.1 97 18 127/55 (79) 96 11/16/18 01:28 78 18 100 Nasal Cannula 2.0 28 74 18 98 11/16/18 00:00 98.5 77 20 100/46 (64) 98 11/16/18 00:00 83 11/15/18 21:00 Nasal Cannula 2.0 11/15/18 20:44 2.0 11/15/18 20:00 80 11/15/18 20:00 98.8 88 20 126/64 (84) 98 11/15/18 19:11 80 18 100 Nasal Cannula 2.0 28 78 18 97 11/15/18 19:08 97 Nasal Cannula 2.0 28 11/15/18 16:00 2.0 11/15/18 16:00 77 11/15/18 16:00 97.4 80 18 114/56 (75) 99 11/15/18 13:43 76 22 100 Nasal Cannula 2.0 28 76 20 99 I&O Intake and Output 11/15/18 11/16/18 18:59 06:59 Intake Total 1780 ml 1540 ml Output Total 1000 ml 1700 ml Balance 780 ml -160 ml Free Water 600 ml 500 ml Tube Feeding 580 ml 540 ml Other 600 ml 500 ml Output Urine Total 1000 ml 1700 ml # Bowel Movements 1 1 Dressing: saturated Wound: other Cardiovascular: RSR Respiratory: clear Abdomen: soft, flat, non-tender, present bowel sounds Extremities: no cyanosis Laboratory Tests Test 11/16/18 06:44 White Blood Count 8.8 K/UL (4.8-10.8) Red Blood Count 2.67 M/UL (4.20-5.40) L Hemoglobin 8.5 G/DL (12.0-16.0) L Hematocrit 25.3 % (37.0-47.0) L Mean Corpuscular Volume 95 FL (80-99) Mean Corpuscular Hemoglobin 31.7 PG (27.0-31.0) H Mean Corpuscular Hemoglobin Concent 33.4 G/DL (32.0-36.0) Red Cell Distribution Width 12.0 % (11.6-14.8) Platelet Count 472 K/UL (150-450) H Mean Platelet Volume 7.0 FL (6.5-10.1) Neutrophils (%) (Auto) % (45.0-75.0) Lymphocytes (%) (Auto) % (20.0-45.0) Monocytes (%) (Auto) % (1.0-10.0) Eosinophils (%) (Auto) % (0.0-3.0) Basophils (%) (Auto) % (0.0-2.0) Differential Total Cells Counted 100 Neutrophils % (Manual) 85 % (45-75) H Lymphocytes % (Manual) 14 % (20-45) L Monocytes % (Manual) 1 % (1-10) Eosinophils % (Manual) 0 % (0-3) Basophils % (Manual) 0 % (0-2) Band Neutrophils 0 % (0-8) Platelet Estimate Increased H Platelet Morphology Normal Sodium Level 139 MMOL/L (136-145) Potassium Level 4.2 MMOL/L (3.5-5.1) Chloride Level 103 MMOL/L (98-107) Carbon Dioxide Level 30 MMOL/L (21-32) Anion Gap 6 mmol/L (5-15) Blood Urea Nitrogen 29 mg/dL (7-18) H Creatinine 0.9 MG/DL (0.55-1.30) Estimat Glomerular Filtration Rate mL/min (>60) Glucose Level 336 MG/DL (74-106) #H Calcium Level 8.8 MG/DL (8.5-10.1) Magnesium Level 1.5 MG/DL (1.8-2.4) L Total Bilirubin 0.2 MG/DL (0.2-1.0) Aspartate Amino Transf (AST/SGOT) 19 U/L (15-37) Alanine Aminotransferase (ALT/SGPT) 14 U/L (12-78) Alkaline Phosphatase 125 U/L (46-116) H Total Protein 6.6 G/DL (6.4-8.2) Albumin 1.5 G/DL (3.4-5.0) L Globulin 5.1 g/dL Albumin/Globulin Ratio 0.3 (1.0-2.7) L Plan Problems: (1) Severe sepsis Assessment & Plan: IV fluids IV abx trend labs will follow with recs wounds stable and not etiology of sepsis (2) Sacral decubitus ulcer, stage IV Assessment & Plan: Full thickness pressure injury sacrococcygeal with 100%soft necrosis at base of wound (L)3.5cm x (W)3cm Periwound purple/black and indurated ,an area measuring 9.5cm x (W)11cm. No odor or exudate noted. Large serous filled blister oozing small amt serous exudate noted to eliezer R tibia. No erythema noted.(L)9cm x (W)4.2cm. Blood filled blister noted to R heel (L)2.5cm x (W)2cm with surrounding non- blanching erythema with fluctuance.(L)5.5cm x (W)6.5cm. Non-blanching erythema without fluctuance noted to L heel. Pt has an APM with ALBIN mattress on her bed and positioned with pillows with both heels floated off bed. Wound care tx orders continued as ordered. Tx.Plan: Cleanse sacral wound with Saline. Apply Therahoney. Apply Moisture Barrier Paste periwound. Cover with Optifoam Drsg every 3days and prn. Apply Cavilon Skin Barrier to Blister eliezer R tibia. Cover with Optifoam drsg. Change every 7 days and prn. Apply Cavilon Skin Barrier to both heels. Cover each heel with Optifoam drsg. Change every 7 days and prn. APM/Albin Mattress overlay. Reposition at least every 2hours or as tolerated. Off-load heels with pillow. (3) G tube feedings Assessment & Plan: DAILY ESTIMATED NEEDS: Needs based on Wound, DM, sepsis 56kg 25-30 kcals/kg 8422-8909 total kcals 1.25-2 g protein/kg 70-112 g total protein 25-30 mL/kg 2338-3345 total fluid mLs NUTRITION DIAGNOSIS: 1) Swallowing difficulty R/T dysphagia, CVA as evidenced by PEG dependent. 2) Increased kcal and pro needs r/t wound healing, increased metabolic rate as evidenced by admitted w/ sacral wound per photo, pending evaluation, sepsis dx w/ elev wbc, febrile, elev LA, elev BGs (414, 466). . CURRENT TF:NPO ENTERAL NUTRITION RECOMMENDATIONS: Glucerna 1.2 @ 55ml/hr x24 hrs to provide 1320ml, 1584kcal, 79g prot, 1063ml free water - As medically appropriate, initiate Glucerna 1.2 @ 35ml/hr - Advance TF 10ml q 4-6 hrs as tolerated to goal rate - HOB over 30 degrees/ water flush per MD ADDITIONAL RECOMMENDATIONS: 1) Calibrated bedscale wt for accurate CBW- w/ added P200 mattress + pump 2) Rec long acting insulin for improved BG control once TF initiates -> BGs in the 300's + 400's 3) Wound healing: add Vit C 500mg QD + Gonsalo 1pkt BID 4) Monitor lytes daily, replete as needed (4) Electrolyte imbalance (5) Ventilator dependence Akhil Jackson Nov 16, 2018 13:04
[2018-11-16] MEDS ORDERED: LEVEMIR FL100 UNIT/1 SUBQ (14:43)
[2018-11-16] MEDS ORDERED: Vanco pharmacy to dose MISC (14:43)
[2018-11-16] MEDS ORDERED: DUONEB 0.5-3(2.53 ML HHN (14:43)
[2018-11-16] MEDS ORDERED: CIPROFLOXACIN500 M2 GT (14:43)
[2018-11-16] MEDS ORDERED: NOVOLOG100 UNITS1 SUBQ (14:43)
[2018-11-16] MEDS ORDERED: FLAGYL500 MG GT (14:43)
[2018-11-16] MEDS ORDERED: VANCOMYCIN500 MG/100 IV (14:47)
--- NOTE | 2018-11-16 14:49 | Discharge Instructions ---
Discharge Instructions Discharge Instructions Additional Diet Information: henry, 45 cc/hr, 250mL Q6hr water flush Resume Normal Activity?: Yes Activity: as tolerated Special Instructions Use 2L nasal cannula at all times. Titrate to SpO2 >92% For Congestive Heart Failure Reminder Report to your physician any weight gain of 5 pounds or more in one week. Parviz Kwok D.O. Nov 16, 2018 14:49
--- NOTE | 2018-11-16 15:53 | NUR ---
DISCHARGED PLANNED: PATIENT RETURNING TO [facility] T: [phone] FOR NURSE TO NURSE REPORT NURSE WILL CALL ROOM# 19A LONG-TERM
--- NOTE | 2018-11-16 15:53 | Nephrology Progress Note ---
Assessment/Plan Problem List: (1) KEL (acute kidney injury) Assessment: resolved (2) Hypokalemia (3) Severe sepsis (4) Hypernatremia (5) Hypercalcemia (6) DM (diabetes mellitus) Assessment Sepsis Acute renal failure HyperNatremia Dehydration G Tube Low k DM OOC CVA Old jody Previous admission was intubated on vent, but extubated Plan mag IV antibiotics Levemir and SS insulin IV KCl and phos and mag as needed monitor renal parameters and lytes Pulm support correct lytes BS and BP check and monitor per consultants ? Med - surg Subjective ROS Limited/Unobtainable: No Constitutional: Reports: malaise, weakness Objective Objective Last 24 Hour Vital Signs Date Time Temp Pulse Resp B/P (MAP) Pulse Ox O2 Delivery O2 Flow Rate FiO2 11/16/18 12:56 87 19 100 Nasal Cannula 2.0 28 89 18 97 11/16/18 12:00 98.6 89 19 117/59 (78) 97 11/16/18 09:00 Nasal Cannula 2.0 11/16/18 08:00 98.9 92 19 118/63 (81) 97 11/16/18 07:18 88 19 99 Nasal Cannula 2.0 28 84 20 95 11/16/18 07:08 95 Nasal Cannula 2.0 28 11/16/18 04:00 2.0 11/16/18 03:30 98.1 97 18 127/55 (79) 96 11/16/18 01:28 78 18 100 Nasal Cannula 2.0 28 74 18 98 11/16/18 00:00 98.5 77 20 100/46 (64) 98 11/16/18 00:00 83 11/15/18 21:00 Nasal Cannula 2.0 11/15/18 20:44 2.0 11/15/18 20:00 80 11/15/18 20:00 98.8 88 20 126/64 (84) 98 11/15/18 19:11 80 18 100 Nasal Cannula 2.0 28 78 18 97 11/15/18 19:08 97 Nasal Cannula 2.0 28 11/15/18 16:00 2.0 11/15/18 16:00 77 11/15/18 16:00 97.4 80 18 114/56 (75) 99 Intake and Output 11/15/18 11/16/18 18:59 06:59 Intake Total 1780 ml 1540 ml Output Total 1000 ml 1700 ml Balance 780 ml -160 ml Free Water 600 ml 500 ml Tube Feeding 580 ml 540 ml Other 600 ml 500 ml Output Urine Total 1000 ml 1700 ml # Bowel Movements 1 1 Laboratory Tests 11/16/18 06:44: White Blood Count 8.8, Red Blood Count 2.67L, Hemoglobin 8.5L, Hematocrit 25.3L , Mean Corpuscular Volume 95, Mean Corpuscular Hemoglobin 31.7H, Mean Corpuscular Hemoglobin Concent 33.4, Red Cell Distribution Width 12.0, Platelet Count 472H, Mean Platelet Volume 7.0, Neutrophils (%) (Auto) , Lymphocytes (%) ( Auto) , Monocytes (%) (Auto) , Eosinophils (%) (Auto) , Basophils (%) (Auto) , Differential Total Cells Counted 100, Neutrophils % (Manual) 85H, Lymphocytes % (Manual) 14L, Monocytes % (Manual) 1, Eosinophils % (Manual) 0, Basophils % ( Manual) 0, Band Neutrophils 0, Platelet Estimate IncreasedH, Platelet Morphology Normal, Sodium Level 139, Potassium Level 4.2, Chloride Level 103, Carbon Dioxide Level 30, Anion Gap 6, Blood Urea Nitrogen 29H, Creatinine 0.9, Estimat Glomerular Filtration Rate , Glucose Level 336#H, Calcium Level 8.8, Magnesium Level 1.5L, Total Bilirubin 0.2, Aspartate Amino Transf (AST/SGOT) 19 , Alanine Aminotransferase (ALT/SGPT) 14, Alkaline Phosphatase 125H, Total Protein 6.6, Albumin 1.5L, Globulin 5.1, Albumin/Globulin Ratio 0.3L Height (Feet): 5 Height (Inches): 3.00 Weight (Pounds): 138 General Appearance: no apparent distress Objective no change Dwayne Vernon MD Nov 16, 2018 15:52
[2018-11-16 16:00] VITALS: BP 121/62
--- NOTE | 2018-11-16 19:37 | NUR ---
HAND-OFF: Report given to April WASHINGTON. Report given to FELIX Ramirez at [facility].
--- NOTE | 2018-11-16 19:39 | NUR ---
NURSE NOTES: PATIENT IN BED, NONVERBAL. PENDING DISCHARGE BACK TO [facility]. TO BE DISCHARGED WITH IV PER MD ORDERS. HOB ELEVATED, ON GT FEEDING. NO S/S ACUTE RESPIRATORY DISTRESS NOTED. NO S/S PAIN NOTED PER FLACC SCALE. BED IN LOWEST POSITION, CALL LIGHT WITHIN REACH, BED ALARM ON. WILL CONTINUE TO MONITOR.
[2018-11-16 20:00] VITALS: BP 126/67
--- NOTE | 2018-11-16 20:03 | NUR ---
NURSE NOTES: CALLED AND SPOKE WITH [facility] AND ETA FOR PICKUP WILL BE DELAYED ANOTHER 30 MINUTES.
--- NOTE | 2018-11-16 20:04 | Infectious Diseases Prog Note ---
Assessment/Plan Assessment/Plan ASSESSMENT AND PLAN: 1. sepsis, mrsa pna/pseudomonas pna, aspiration risk, chf/edema/atx, gertrudis uti , sacral wound, sirs, leukocytosis, fevers, bipap, sob/hypoxia, mary - vancomycin, ciprofloxacin and flagyl x 5 days - monitor labs, cultures noted, blood cultures negative - monitor chest x-ray - clinically improved, less sob - leukocytosis and fevers improved - wound care per surgery 2. Wound care per surgery and protocol. 3. Elevated creatinine with acute kidney injury. 4. Diabetes. 5. Hypertension. 6. Blood sugar and blood pressure treatment per primary consultants for diabetes and hypertension. 7. Anemia. 8. CVA. 9. Aspiration risk. 10. Aspiration precautions for CVA and aspiration risk. 11. Dysphagia. G-tube. 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 13. Dementia. 14. Encephalopathy. 15. History of sepsis and lactic acidosis. 16. No known drug allergies. 17. Family history is noncontributory. 18. Social history is negative. 19. MAR is noted. 20. Case was discussed with RN. 21. Continue treatment per primary consultants. 22. vre/mrsa colonization and isolation Subjective Constitutional: Reports: fatigue, other - no change in mental status ; Denies: fever HEENT: Reports: congestion - less Respiratory: Reports: shortness of breath - less Gastrointestinal/Abdominal: Denies: nausea, vomiting, diarrhea Genitourinary: Reports: other - no taylor Neurologic: Denies: headache Psychiatric: Denies: depression Skin: Denies: rash Hematologic: Denies: bleeding Musculoskeletal: Denies: pain Allergies: Coded Allergies: No Known Allergies (Unverified , 02/04/17) Objective Vital Signs Last 24 Hour Vital Signs Date Time Temp Pulse Resp B/P (MAP) Pulse Ox O2 Delivery O2 Flow Rate FiO2 11/16/18 16:00 98.6 98 17 121/62 (81) 96 11/16/18 12:56 87 19 100 Nasal Cannula 2.0 28 89 18 97 11/16/18 12:00 98.6 89 19 117/59 (78) 97 11/16/18 09:00 Nasal Cannula 2.0 11/16/18 08:00 98.9 92 19 118/63 (81) 97 11/16/18 07:18 88 19 99 Nasal Cannula 2.0 28 84 20 95 11/16/18 07:08 95 Nasal Cannula 2.0 28 11/16/18 04:00 2.0 11/16/18 03:30 98.1 97 18 127/55 (79) 96 11/16/18 01:28 78 18 100 Nasal Cannula 2.0 28 74 18 98 11/16/18 00:00 98.5 77 20 100/46 (64) 98 11/16/18 00:00 83 11/15/18 21:00 Nasal Cannula 2.0 11/15/18 20:44 2.0 11/15/18 20:00 80 11/15/18 20:00 98.8 88 20 126/64 (84) 98 Height (Feet): 5 Height (Inches): 3.00 Weight (Pounds): 138 General Appearance: no acute distress HEENT: normocephalic, atraumatic, anicteric, mucous membranes moist Respiratory/Chest: no respiratory distress, no accessory muscle use, crackles/ rales, rhonchi - bilaterally Cardiovascular: normal rate, regular rhythm, no gallop/murmur, no JVD Abdomen: normal bowel sounds, soft, non tender, no organomegaly, non distended Genitourinary: other - no taylor seen Extremities: no cyanosis Skin: no rash Neurologic/Psychiatric: [employer] & online II-XII grossly normal, responsive Lymphatic: no neck adenopathy Musculoskeletal: no effusion Objective Chest x-ray - 11/08/18 - Basilar opacities likely represent atelectasis. Pneumonia not entirely excludable. The heart is enlarged. Mild pulmonary vascular congestion suspected and appears worse compared to the prior study. IMPRESSION: Suspected mild pulmonary vascular congestion, slightly worse. Basal atelectasis. Superimposed pneumonia not excluded Chest x-ray - 11/11/18 - FINDINGS: Lungs: Persistent increased interstitial markings. Unchanged mild bibasilar subcentimeter atelectasis versus infiltrates. Pleural space: Unremarkable. The costophrenic angles are sharp. No visible pneumothorax. Heart: Unremarkable. No cardiomegaly. Mediastinum: Unremarkable. Bones joints: Degenerative changes throughout the visualized spine and shoulder joints. Vasculature: Atherosclerotic calcifications within the aortic arch. Tubes, lines and devices: Telemetry leads overlie the thorax. IMPRESSION: 1. Persistent increased interstitial markings. This is nonspecific but may suggest pulmonary vascular congestion or a mild interstitial pneumonitis. 2. Unchanged mild bibasilar subsegmental atelectasis versus infiltrates. Chest x-ray - 11/12/18 Procedure: XRAY Chest 1v Indication: Shortness of breath Technique: One view of the chest Comparison: 11/10/2018 Findings: Bilateral interstitial and airspace disease is again demonstrated, with dense consolidation in the retrocardiac region. There are probably small bilateral pleural effusions. Findings are unchanged Impression: Unchanged, over 2 days, findings as above. Chest x-ray - 11/15/18 - Findings: Patchy interstitial opacities are demonstrated bilaterally. There is a consolidative focus at the left lung base with air bronchograms. The findings are unchanged. Lung volumes remain low. The heart is prominent in size. The bones are osteopenic. IMPRESSION: Suspect pulmonary vascular congestion. Left basilar airspace disease may be pneumonia or atelectasis. Correlate clinically Microbiology Date/Time Source Procedure Growth Status 11/06/18 12:20 Blood Blood Culture - Final NO GROWTH AFTER 5 DAYS Complete 11/08/18 10:00 Sputum Induced Gram Stain - Final Complete 11/08/18 10:00 Sputum Culture - Final Pseudomonas Aeruginosa Staphylococcus Aureus - Mrsa Complete 11/08/18 19:29 Stool Clostridium difficile Toxin Assay - Final Complete 11/06/18 12:20 Urine,Clean Catch Urine Culture - Final Gertrudis Tropicalis Complete 11/06/18 12:30 Rectum - Final NO CARBAPENEM-RESISTANT ENTEROBACTERI... Complete Laboratory Tests Test 11/16/18 06:44 White Blood Count 8.8 K/UL (4.8-10.8) Red Blood Count 2.67 M/UL (4.20-5.40) L Hemoglobin 8.5 G/DL (12.0-16.0) L Hematocrit 25.3 % (37.0-47.0) L Mean Corpuscular Volume 95 FL (80-99) Mean Corpuscular Hemoglobin 31.7 PG (27.0-31.0) H Mean Corpuscular Hemoglobin Concent 33.4 G/DL (32.0-36.0) Red Cell Distribution Width 12.0 % (11.6-14.8) Platelet Count 472 K/UL (150-450) H Mean Platelet Volume 7.0 FL (6.5-10.1) Neutrophils (%) (Auto) % (45.0-75.0) Lymphocytes (%) (Auto) % (20.0-45.0) Monocytes (%) (Auto) % (1.0-10.0) Eosinophils (%) (Auto) % (0.0-3.0) Basophils (%) (Auto) % (0.0-2.0) Differential Total Cells Counted 100 Neutrophils % (Manual) 85 % (45-75) H Lymphocytes % (Manual) 14 % (20-45) L Monocytes % (Manual) 1 % (1-10) Eosinophils % (Manual) 0 % (0-3) Basophils % (Manual) 0 % (0-2) Band Neutrophils 0 % (0-8) Platelet Estimate Increased H Platelet Morphology Normal Sodium Level 139 MMOL/L (136-145) Potassium Level 4.2 MMOL/L (3.5-5.1) Chloride Level 103 MMOL/L (98-107) Carbon Dioxide Level 30 MMOL/L (21-32) Anion Gap 6 mmol/L (5-15) Blood Urea Nitrogen 29 mg/dL (7-18) H Creatinine 0.9 MG/DL (0.55-1.30) Estimat Glomerular Filtration Rate mL/min (>60) Glucose Level 336 MG/DL (74-106) #H Calcium Level 8.8 MG/DL (8.5-10.1) Magnesium Level 1.5 MG/DL (1.8-2.4) L Total Bilirubin 0.2 MG/DL (0.2-1.0) Aspartate Amino Transf (AST/SGOT) 19 U/L (15-37) Alanine Aminotransferase (ALT/SGPT) 14 U/L (12-78) Alkaline Phosphatase 125 U/L (46-116) H Total Protein 6.6 G/DL (6.4-8.2) Albumin 1.5 G/DL (3.4-5.0) L Globulin 5.1 g/dL Albumin/Globulin Ratio 0.3 (1.0-2.7) L Current Medications Medications (Trade) Dose Ordered Sig/Wayne Route PRN Reason Start Time Stop Time Status Last Admin Dose Admin Acetaminophen (Tylenol) 650 mg Q4H PRN GT fever 11/14/18 14:53 12/14/18 14:52 Acetaminophen (Tylenol) 650 mg Q4H PRN GT Mild Pain (Pain Scale 1-3) 11/14/18 14:54 12/14/18 14:53 11/14/18 20:55 Albuterol/ Ipratropium (Albuterol/ Ipratropium) 3 ml Q6HRT HHN 11/14/18 19:00 11/18/18 18:59 11/16/18 12:46 Ascorbic Acid (Vitamin C) 500 mg DAILY GT 11/15/18 09:00 12/08/18 08:59 11/16/18 08:23 Aspirin (ASA) 81 mg DAILY GT 11/15/18 09:00 12/14/18 08:59 11/16/18 08:23 Atorvastatin Calcium (Lipitor) 40 mg BEDTIME GT 11/14/18 21:00 12/13/18 20:59 11/15/18 22:04 Ciprofloxacin (Cipro 500mg tab) 500 mg EVERY 12 HOURS GT 11/14/18 21:00 11/18/18 23:59 11/16/18 08:23 Dextrose (Dextrose 50%) 25 ml Q30M PRN IV Hypoglycemia 11/14/18 15:00 12/08/18 14:29 Dextrose (Dextrose 50%) 50 ml Q30M PRN IV Hypoglycemia 11/14/18 15:00 12/08/18 14:29 Famotidine (Pepcid) 20 mg BID GT 11/14/18 18:00 12/13/18 17:59 11/16/18 17:42 Furosemide (Lasix) 20 mg DAILY GT 11/15/18 09:00 12/14/18 08:59 11/16/18 08:23 Heparin Sodium (Porcine) (Heparin 5000 units/ml) 5,000 units EVERY 12 HOURS SUBQ 11/14/18 21:00 12/11/18 20:59 11/16/18 08:31 Hydromorphone HCl (Dilaudid) 1 mg Q6H PRN IVP Moderate Pain (Pain Scale 4-6) 11/14/18 14:55 11/21/18 14:54 Hydromorphone HCl (Dilaudid) 2 mg Q6H PRN IVP Severe Pain (Pain Scale 7-10) 11/14/18 14:55 11/21/18 14:54 Insulin Aspart (NovoLOG) Q6HR SUBQ 11/14/18 18:00 12/06/18 20:59 11/16/18 17:47 Insulin Aspart (NovoLOG) 9 units NOVOTIAC SUBQ 11/16/18 11:50 12/13/18 11:49 11/16/18 17:48 Insulin Detemir (Levemir) 30 units BEDTIME SUBQ 11/16/18 21:00 12/10/18 20:59 Metronidazole (Flagyl) 500 mg EVERY 8 HOURS GT 11/14/18 22:00 11/18/18 13:59 11/16/18 13:39 Ondansetron HCl (Zofran) 4 mg Q6H PRN IVP Nausea & Vomiting 11/14/18 15:00 12/08/18 14:59 Vancomycin HCl (Vanco rx to dose) 1 ea DAILY PRN MISC Per rx protocol 11/15/18 09:00 12/06/18 16:59 Vancomycin HCl 500 mg/Dextrose 110 ml @ 110 mls/hr Q12HR IVPB 11/14/18 21:00 11/18/18 08:59 11/16/18 08:30 Milton Valladares MD Nov 16, 2018 20:04
[2018-11-16] MEDS: Atorvastatin 20mg tab GT SCH (20:32)
[2018-11-16] MEDS ORDERED: Vancomycin 500 MG in D5W 110 ML IVPB SCH (21:00)
[2018-11-16] MEDS ORDERED: Ciprofloxacin 500mg tab GT SCH (21:00)
[2018-11-16] MEDS ORDERED: Tubing IV Secondary IV ONE (21:54)
[2018-11-16] MEDS ORDERED: NS 275ml ONE (21:54)
--- NOTE | 2018-11-16 21:55 | NUR ---
NURSE NOTES: PATIENT DISCHARGED, STABLE CONDITION. NO BELONGINGS. LEFT VIA AMBULANCE. DISCHARGE PACKET GIVEN TO AMBULANCE PERSONNEL.
[2018-11-16] MEDS ORDERED: metroNIDAZOLE 500mg tab GT SCH (22:00)
--- NOTE | 2018-11-16 22:07 | Discharge Summary ---
Discharge Summary Hospital Course Date of Admission Nov 06, 2018 at 12:43 Date of Discharge Nov 16, 2018 at 21:55 Admitting Diagnosis Acute hypoxic and hypercarbic respiratory failure 2/2 pseudomonas/MRSA pneumonia , severe sepsis HPI Tami Doe is a 78 year old female who was admitted on Nov 06, 2018 at 12:43 for Shortness Of Breath, Pneumonia Consultations Infectious disease Pulmonology Nephrology General Surgery Hospital Course Tami Doe is a 78 year old female who was undergoing antibiotic therapy for PNA with meropenem at [facility] sent in to the hospital with fever and desaturation. Found to have leukocytosis, fevers, Lactate 4.2. Admitted for septic shock due to pneumonia vs. UTI, acute metabolic encephalopathy, acute hypoxic hypercapnic respiratory failure, severe dehydration, hypernatremia and KEL. Upgraded to ICU due to worsening respiratory failure, changed to DNR/DNI after family discussion. Patient initially treated with fluconazole (for fungal UTI) meropenem and polymixin. Sacral decbuitus ulcer (present on admission) was evaluated by surgery and deemed not the source of sepsis. The patient improved with antibiotics, breathing treatments, and pulmonary hygeine. She was on BiPAP QHS/ PRN and her oxygen was titrated down to 2L nasal cannula on discharge. Infectious diseease recommended to continue Vancomycin, Ciprofloxacin and Flagyl to complete a 14 day course of antibiotics. She will continue 2L nasal cannula at her facility and titrated down as an outpatient. Hypernatremia resolved with free water. Patient's mental status returned to baseline. Diabetes was uncontrolled and improved with titration of insulin therapy. KEL resolved with IV fluids. Patient developed a right foot blister due to IV infiltration. General surgery was consulted who recommended to continue wound care. Patient hemodynamically stable on discharge. Patient discharged back to SNF for continued PT/OT # S/p septic shock due to pseudomonas and MRSA PNA, fungal UTI. doubt infected sacral decubitus. - IMPROVING -S/p fluconazole, meropenem, and polymyxin per ID, -ID consult. Dr. Solis, appreciate recs regarding length of antibiotics. - Change to Vanc, Cipro, and Flagyl. Treat for one more week (14 days total), end date 11/22/18. d/w Dr. Solis -Blood cultures negative. Urine growing yeast. sputum culture with pseudomonas and MRSA -Leukocytosis resolved # Acute hypoxic hypercarbic respiratory failure. - IMPROVING - Appreciate pulmonology recommendations: Dr. Milner - Treat pneumonia as above - Per discussion with Dr. Milner: no BIPAP needed. Continue O2, titrate to keep sats >92% #right foot blister 2/2 IV infiltration - wound care - General surgery following: Dr. Jackson. Appreciate recs #Toxic metabolic encephalopathy - RESOLVED. Treat sepsis and respiratory failure - back to baseline per son # Severe dehydration and hypernatremia. Continue Free water via PEG . Hypernatremia resolved on labs today # History of CVA: Hold antihypertensives given sepsis and borderline BP. # Sacral decub. Dr. Jackson, wound care consult # DM II with hyperglycemia. - IMPROVING - Continue levemir to 25 units QHS. FBS 173 this AM - INCREASE Novolog to 7 units TIDAC. Pre meal averaging 250-300. - Continue accuchecks and SSI # KEL. pre-renal due to severe dehydration. avoid nephrotoxic medications. - RESOLVED. Nephrology consult: Dr. Vernon. KEL resolved. # Troponin elevation. No acute ekg changes, demand ischemia. # Thrombocytopenia. Due to sepsis. Platelet trended down yesterday and heparin held, improved today, will resume for now # Moderate protein calorie malnutrition. Resumed feeds via PEG, tolerating. Aspiration precautions. High aspiration risk # hypokalemia repleted. Continue to monitor #hypomagnesemia: repleted. Continue to monitor # Pain control: Dilaudid prn Physical exam Vital signs stable, afebrile General: WDWN female, alert, nonverbal, right sided gaze (baseline) CV: RRR, no murmurs rubs or gallops Resp: CTAB, no w/r/r GI: Soft, nontender nondistended, +BS Ext: No LE edema bilaterally Skin: right ankle blister, no surrounding erythema, warmth or discharge Neuro: Right sided gaze preference (baseline), alert, non-verbal, unable to follow commands, withdraws to pain. MSk: No swelling of joints, symmetrical Discussed with RN, bilingual patient support caseworker, pulmonology, and infectious disease. I spent > 30 minutes on this discharge, with >50% time dedicated to counseling and/or coordination of care. Discharge Condition Upon Discharge: improving Discharge Disposition Patient was discharged to SNF Discharge Diagnoses: (1) Severe sepsis due to methicillin resistant Staphylococcus aureus (MRSA) with acute organ dysfunction (2) Lactic acid acidosis (3) Toxic metabolic encephalopathy (4) Respiratory failure with hypoxia and hypercapnia (5) Elevated troponin (6) Hypernatremia (7) Hyperglycemia due to type 2 diabetes mellitus (8) Sacral decubitus ulcer, stage IV (9) DM (diabetes mellitus) (10) Dehydration (11) Upper sacral area unstageable pressure ulcer (12) PNA (pneumonia) (13) H/O: CVA (cerebrovascular accident) (14) G tube feedings Discharge Instructions Discharge Instructions Additional Diet Information: henry, 45 cc/hr, 250mL Q6hr water flush Activity: as tolerated Parviz Kwok D.O. Nov 16, 2018 22:07
--- NOTE | 2018-11-16 22:12 | General Progress Note ---
Assessment/Plan Problem List: (1) Renal insufficiency ICD Codes: N28.9 - Disorder of kidney and ureter, unspecified; R65.20 - Severe sepsis without septic shock SNOMED: 732810700, 116966029 (2) Severe sepsis ICD Codes: A41.9 - Sepsis, unspecified organism; R65.20 - Severe sepsis without septic shock SNOMED: 44259682 (3) Septic shock ICD Codes: A41.9 - Sepsis, unspecified organism; R65.21 - Severe sepsis with septic shock SNOMED: 35601567 (4) Sacral decubitus ulcer, stage IV ICD Codes: L89.154 - Pressure ulcer of sacral region, stage 4 SNOMED: 893123320, 140771168 (5) SOB (shortness of breath) ICD Codes: R06.02 - Shortness of breath SNOMED: 723310994 (6) Respiratory failure with hypoxia and hypercapnia ICD Codes: J96.91 - Respiratory failure, unspecified with hypoxia; J96.92 - Respiratory failure, unspecified with hypercapnia SNOMED: 41148380 (7) G tube feedings ICD Codes: Z93.1 - Gastrostomy status SNOMED: 760823500, 915450651, 447743694 (8) Electrolyte imbalance ICD Codes: E87.8 - Other disorders of electrolyte and fluid balance, not elsewhere classified SNOMED: 580119905 (9) Altered mental status ICD Codes: R41.82 - Altered mental status, unspecified SNOMED: 445004190 (10) H/O: CVA (cerebrovascular accident) ICD Codes: Z86.73 - Personal history of transient ischemic attack (TIA), and cerebral infarction without residual deficits SNOMED: 176692648 (11) Pneumonia ICD Codes: J18.9 - Pneumonia, unspecified organism SNOMED: 084587292 Qualifiers: Qualified Codes: J18.1 - Lobar pneumonia, unspecified organism (12) KEL (acute kidney injury) ICD Codes: N17.9 - Acute kidney failure, unspecified SNOMED: 9008505, 33999848 (13) Ventilator dependence ICD Codes: Z99.11 - Dependence on respirator [ventilator] status SNOMED: 786271898 (14) Endotracheally intubated ICD Codes: Z97.8 - Presence of other specified devices SNOMED: 530761752 (15) Hypokalemia ICD Codes: E87.6 - Hypokalemia SNOMED: 47123582 (16) Hypercalcemia ICD Codes: E83.52 - Hypercalcemia SNOMED: 44736847 (17) Abscess ICD Codes: L02.91 - Cutaneous abscess, unspecified SNOMED: 331908556 (18) Rash ICD Codes: R21 - Rash and other nonspecific skin eruption SNOMED: 805202370 (19) Hypernatremia ICD Codes: E87.0 - Hyperosmolality and hypernatremia SNOMED: 03282573 (20) HTN (hypertension) ICD Codes: I10 - Essential (primary) hypertension SNOMED: 68017322 (21) Elevated troponin ICD Codes: R74.8 - Abnormal levels of other serum enzymes SNOMED: 446184373, 706701803 (22) Encounter for PEG (percutaneous endoscopic gastrostomy) ICD Codes: Z43.1 - Encounter for attention to gastrostomy SNOMED: 216046565, 957851225 (23) MRSA infection ICD Codes: A49.02 - Methicillin resistant Staphylococcus aureus infection, unspecified site SNOMED: 433316095 (24) PNA (pneumonia) ICD Codes: J18.9 - Pneumonia, unspecified organism SNOMED: 959085276 (25) Hyperglycemia due to type 2 diabetes mellitus ICD Codes: E11.65 - Type 2 diabetes mellitus with hyperglycemia SNOMED: 65582885, 820299060253992 (26) Upper sacral area unstageable pressure ulcer (27) Large ischemic R MCA stroke (28) UTI (urinary tract infection) ICD Codes: N39.0 - Urinary tract infection, site not specified SNOMED: 15266272 (29) Perineal area gertrudis rashes extending to left and right buttocks (30) Right lateral malleolus stage I pressure ulcer (31) Respiratory failure ICD Codes: J96.90 - Respiratory failure, unspecified, unspecified whether with hypoxia or hypercapnia SNOMED: 234525984 (32) DM (diabetes mellitus) ICD Codes: E11.9 - Type 2 diabetes mellitus without complications SNOMED: 67930422 (33) Hypernatremia ICD Codes: E87.0 - Hyperosmolality and hypernatremia SNOMED: 712228572 (34) Lactic acid acidosis ICD Codes: E87.2 - Acidosis SNOMED: 59661981 (35) Toxic metabolic encephalopathy ICD Codes: G92 - Toxic encephalopathy SNOMED: 901193934 (36) Dehydration ICD Codes: E86.0 - Dehydration SNOMED: 19306487 (37) Sepsis ICD Codes: A41.9 - Sepsis, unspecified organism SNOMED: 45274778 Status: progressing Assessment/Plan: Tami Doe is a 78 year old female who was undergoing antibiotic therapy for PNA with meropenem at [facility] sent in to the hospital with fever and desaturation. Found to have leukocytosis, fevers, Lactate 4.2. Admitted for septic shock due to pneumonia vs. UTI, acute metabolic encephalopathy, acute hypoxic hypercapnic respiratory failure, severe dehydration, hypernatremia and KEL. Upgraded to ICU due to worsening respiratory failure, now DNR/DNI after family discussion. Improved, now on nasal cannula. # S/p septic shock due to pseudomonas PNA, fungal UTI. doubt infected sacral decubitus. - IMPROVING -S/p fluconazole, meropenem, and polymyxin per ID, -ID consult. Dr. Solis, appreciate recs regarding length of antibiotics. - Change to Vanc, Cipro, and Flagyl. Treat for one more week (14 days total), end date 11/22/18. d/w Dr. Solis -Blood cultures negative. Urine growing yeast. sputum culture with pseudomonas and MRSA -Leukocytosis resolved # Acute hypoxic hypercarbic respiratory failure. - IMPROVING - Appreciate pulmonology recommendations: Dr. Milner - Treat pneumonia as above - Per discussion with Dr. Milner: BiPAP QHS and 2L nasal cannula during the day - Continue BIPAP PRN as well #right foot blister 2/2 IV infiltration - wound care - General surgery following: Dr. Jackson. Appreciate recs #Toxic metabolic encephalopathy - RESOLVED. Treat sepsis and respiratory failure - back to baseline per son # Severe dehydration and hypernatremia. Continue Free water via PEG . Hypernatremia resolved on labs today # History of CVA: Hold antihypertensives given sepsis and borderline BP. # Sacral decub. Dr. Jackson, wound care consult # DM II with hyperglycemia. - IMPROVING - Continue levemir to 25 units QHS. FBS 173 this AM - INCREASE Novolog to 7 units TIDAC. Pre meal averaging 250-300. - Continue accuchecks and SSI # KEL. pre-renal due to severe dehydration. avoid nephrotoxic medications. - RESOLVED. Nephrology consult: Dr. Vernon. KEL resolved. # Troponin elevation. No acute ekg changes, demand ischemia. # Thrombocytopenia. Due to sepsis. Platelet trended down yesterday and heparin held, improved today, will resume for now # Moderate protein calorie malnutrition. Resumed feeds via PEG, tolerating. Aspiration precautions. High aspiration risk # hypokalemia repleted. Continue to monitor #hypomagnesemia: repleted. Continue to monitor # Pain control: Dilaudid prn vte ppx: heparin subq GI ppx: IV pantoprazole Diet: resumed peg feeds, free water via peg Code status: DNR/DNI, prognosis guarded Dispo: DC back to SNF tomorrow if tolerates BiPAP QHS Discussed with RN, family independence case manager, pulmonology, and infectious disease. I spent 37 minutes on this patient's case including >50% time dedicated to counseling and/or coordination of care. Subjective Allergies: Coded Allergies: No Known Allergies (Unverified , 02/04/17) Subjective NO acute events overnight per nursing. PNA: Stable. Patient with increased WOB overnight but no desats. Placed on venturi mask. titrated down to nasal cannula 2L during the day. No cough or purulence. Patient more alert today. Further subjective history unable to obtain as patient nonverbal Objective Last 24 Hour Vital Signs Date Time Temp Pulse Resp B/P (MAP) Pulse Ox O2 Delivery O2 Flow Rate FiO2 11/16/18 20:00 97.8 79 17 126/67 (86) 100 11/16/18 19:57 74 16 9 Nasal Cannula 2.0 28 77 18 96 11/16/18 19:57 96 Nasal Cannula 2.0 28 11/16/18 16:00 98.6 98 17 121/62 (81) 96 11/16/18 12:56 87 19 100 Nasal Cannula 2.0 28 89 18 97 11/16/18 12:00 98.6 89 19 117/59 (78) 97 11/16/18 09:00 Nasal Cannula 2.0 11/16/18 08:00 98.9 92 19 118/63 (81) 97 11/16/18 07:18 88 19 99 Nasal Cannula 2.0 28 84 20 95 11/16/18 07:08 95 Nasal Cannula 2.0 28 11/16/18 04:00 2.0 11/16/18 03:30 98.1 97 18 127/55 (79) 96 11/16/18 01:28 78 18 100 Nasal Cannula 2.0 28 74 18 98 11/16/18 00:00 98.5 77 20 100/46 (64) 98 11/16/18 00:00 83 Intake and Output 11/15/18 11/16/18 19:00 07:00 Intake Total 1770 ml 1540 ml Output Total 1000 ml 1700 ml Balance 770 ml -160 ml Free Water 600 ml 500 ml Tube Feeding 570 ml 540 ml Other 600 ml 500 ml Output Urine Total 1000 ml 1700 ml # Bowel Movements 1 1 Laboratory Tests 11/16/18 06:44: White Blood Count 8.8, Red Blood Count 2.67L, Hemoglobin 8.5L, Hematocrit 25.3L , Mean Corpuscular Volume 95, Mean Corpuscular Hemoglobin 31.7H, Mean Corpuscular Hemoglobin Concent 33.4, Red Cell Distribution Width 12.0, Platelet Count 472H, Mean Platelet Volume 7.0, Neutrophils (%) (Auto) , Lymphocytes (%) ( Auto) , Monocytes (%) (Auto) , Eosinophils (%) (Auto) , Basophils (%) (Auto) , Differential Total Cells Counted 100, Neutrophils % (Manual) 85H, Lymphocytes % (Manual) 14L, Monocytes % (Manual) 1, Eosinophils % (Manual) 0, Basophils % ( Manual) 0, Band Neutrophils 0, Platelet Estimate IncreasedH, Platelet Morphology Normal, Sodium Level 139, Potassium Level 4.2, Chloride Level 103, Carbon Dioxide Level 30, Anion Gap 6, Blood Urea Nitrogen 29H, Creatinine 0.9, Estimat Glomerular Filtration Rate , Glucose Level 336#H, Calcium Level 8.8, Magnesium Level 1.5L, Total Bilirubin 0.2, Aspartate Amino Transf (AST/SGOT) 19 , Alanine Aminotransferase (ALT/SGPT) 14, Alkaline Phosphatase 125H, Total Protein 6.6, Albumin 1.5L, Globulin 5.1, Albumin/Globulin Ratio 0.3L Height (Feet): 5 Height (Inches): 3.00 Weight (Pounds): 138 Parviz Kwok D.O. Nov 16, 2018 22:11
== END 2018-11-16 21:55 | DRG 871 ==
LOC: EDBD 12:04 → EMR 12:35 → 2W 12:43 → EDBEDREQSVC 12:51 → EDBEDREQ 12:51 → 2W 11-07 20:55 → ICU 11-08 00:40 → 2W 11-09 14:21 → 2E 11-14 14:25 → 4E 11-16 02:33
PROC: 5A09457 Assistance with Respiratory Ventilation, 24-96 Consecutive Hours, Continuous Positive Airway Pressure (ICD-10-PCS; principal; 2018-11-08)
DX: A41.02 Sepsis due to Methicillin resistant Staphylococcus aureus (principal); L89.154 Pressure ulcer of sacral region, stage 4; G92 Toxic encephalopathy; R65.21 Severe sepsis with septic shock; J96.02 Acute respiratory failure with hypercapnia; J96.01 Acute respiratory failure with hypoxia; J15.1 Pneumonia due to Pseudomonas; E87.0 Hyperosmolality and hypernatremia; N39.0 Urinary tract infection, site not specified; Z43.1 Encounter for attention to gastrostomy; E44.0 Moderate protein-calorie malnutrition; L02.91 Cutaneous abscess, unspecified; I69.354 Hemiplegia and hemiparesis following cerebral infarction affecting left non-dominant side; E86.0 Dehydration; D69.6 Thrombocytopenia, unspecified; E11.65 Type 2 diabetes mellitus with hyperglycemia; L89.150 Pressure ulcer of sacral region, unstageable; Z79.4 Long term (current) use of insulin; R13.10 Dysphagia, unspecified; E87.8 Other disorders of electrolyte and fluid balance, not elsewhere classified; E83.52 Hypercalcemia; B37.2 Candidiasis of skin and nail; E83.42 Hypomagnesemia; F03.90 Unspecified dementia, unspecified severity, without behavioral disturbance, psychotic disturbance, mood disturbance, and anxiety; Z66 Do not resuscitate
CPT/HCPCS: 36415; 36600; 71045; 80048; 80053; 80076; 80150; 80202; 81003; 82550; 82553; 82607; 82728; 82746; 82803; 82962; 82977; 83036; 83540; 83550; 83605; 83735; 83880; 84100; 84443; 84484; 84550; 85007; 85025; 86140; 87040; 87070; 87081; 87086; 87181; 87205; 87324; 93005; 93970; 94640; 94660; 96361; 96365; 96375; 99291; J1815; J7620; J8499; S5561

== ENCOUNTER 2018-11-25 11:53 | Emergency (ER) | payer MEDICARE, MEDICAID ==
[~2018-11-25] VITALS: Ht 160 cm; Wt 68.0 kg
[~2018-11-25 11:53] MED LIST changes: +ACETAMINOP160 MG/5 M ORAL; +ATORVASTATIN CA40 MG GT; +CIPROFLOXACIN500 M2 GT; +DUONEB 0.5-3(2.53 ML HHN; +FLAGYL500 MG GT; +FLUCONAZOLE100 MG GT; +MEROPENEM1 GM IV; +METOPROLOL TART25 MG GT; +NITROGLYCERIN1 EAC2 TD; +VANCOMYCIN500 MG/100 IV; +Vanco pharmacy to dose MISC; +ZOSYN 3.373.375 GM/1 IVPB
--- NOTE | 2018-11-25 12:10 | NUR ---
Nursing Notes: Patient BIBA for G-tube getting disloged while bathing, currently in place is a 18F catheter, no blood noted at the insertion site, covered with a dry sponge 4x4, patient is on nasal cannula at 2L/min saturating at 99% with RR of 19, HR is 97 in sinus rhythm, with BP of 131/73
[2018-11-25 12:16] VITALS: BP 134/73
--- NOTE | 2018-11-25 12:58 | Emergency Room Report ---
History of Present Illness General Chief Complaint: Malfunctioning Gastric Tube Source: Medical Record, EMS Present Illness HPI Disclaimer: Please note that this report is being documented using DRAGON technology. This can lead to erroneous entry secondary to incorrect interpretation by the dictating instrument. HPI: 78-year-old female with a history of CVA and dysphasia who is G-tube dependent presents for evaluation of G-tube replacement. According to EMS, the G-tube was dislodged this morning by nursing staff while given the patient a bath. There is no significant trauma, no bleeding. No recent signs of infection, no exudate, no surrounding erythema. No other complaints at this time. She is otherwise comfortable and well-appearing. 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 EOMI. Resp: Normal work of breathing Abd: Soft, nontender, nondistended. Nunez catheter in place in the PEG ostomy. No surrounding leakage, no erythema, no edema, no purulent drainage. MSK: Normal tone and bulk. Moving all extremities. No obvious deformity. Neuro: Sleeping comfortably, no purposeful movements Procedures Additional Procedure Procedure Narrative Gastrostomy tube replacement. Nunez catheter was removed without difficulty after deflation. A 16 Burmese PEG tube was passed through the stoma without difficulty and no resistance. Inflated to 15 cc sterile water and retracted to 4 cm. Able to aspirate gastric contents and flushed easily. No complications. Patient tolerated the procedure well. Medical Decision Making Diagnostic Impression: Primary Impression: Encounter for PEG (percutaneous endoscopic gastrostomy) ER Course 78-year-old female presents for G-tube replacement. There is no dog mentation to say what size the previous G-tube was. I was able to successfully pass a 16 Burmese tube with good aspiration of gastric contents. Filled balloon to 15 cc sterile water and retracted to 4 cm. Patient tolerated the procedure well without any complications. Will send for confirmatory x-ray with Gastrografin. If unremarkable she may return to her nursing facility. Other X-Ray Diagnostic Results Other X-Ray Diagnostic Results : X-Ray ordered: KUB # of Views/Limited Vs Complete: 1 View Indication: Other - G-tube change EP Interpretation: Yes Interpretation: other - Contrast in the stomach Impression: No acute disease - Satisfactory G-tube placement Electronically Signed by: Electronically signed by Dr. Gonzalez James Reevaluation Time: 14:42 Last Vital Signs Date Time Temp Pulse Resp B/P (MAP) Pulse Ox O2 Delivery O2 Flow Rate FiO2 11/25/18 12:16 98.7 97 19 134/73 99 Nasal Cannula 2.0 Reevaluation Impression G-tube appears in satisfactory position. Will return to nursing facility for further management. Disposition: XFER SNF Condition: Improved Gonzalez James MD Nov 25, 2018 12:58
[2018-11-25] MEDS ORDERED: Gastrograffin 30ml ORAL ONE (13:00)
--- NOTE | 2018-11-25 14:40 | Diagnostic Imaging Report ---
Indication: Reason For Exam: ABD DIST Technique: Supine view of the abdomen after injection of water-soluble contrast into gastrostomy Comparison: 02/07/2017 Findings: Contrast opacifies the stomach. No contrast extravasation is demonstrated. The bowel gas pattern is unremarkable. Impression: Satisfactory position of gastrostomy tube This agrees with the preliminary interpretation provided overnight by [facility] teleradiology service.
--- NOTE | 2018-11-25 15:31 | NUR ---
Nursing Notes: [facility] called to inform of patient returning after g-tube placement at the bedside, 16F tube placed and confimed with gratrofarin, report given to FELIX Gonzalez.
[2018-11-25 15:39] VITALS: BP 134/71
[2018-11-25 15:56] VITALS: BP 144/70
--- NOTE | 2018-11-25 16:02 | NUR ---
Nursing Notes: patient taken by ambulance personal to [facility].
== END 2018-11-25 15:56 ==
LOC: EDBD 11:53 → EMR 14:31
DX: K94.29 Other complications of gastrostomy (principal); F03.90 Unspecified dementia, unspecified severity, without behavioral disturbance, psychotic disturbance, mood disturbance, and anxiety; I69.854 Hemiplegia and hemiparesis following other cerebrovascular disease affecting left non-dominant side; I69.891 Dysphagia following other cerebrovascular disease; R13.10 Dysphagia, unspecified; I10 Essential (primary) hypertension; E11.9 Type 2 diabetes mellitus without complications
CPT/HCPCS: 74018; 99284

== ENCOUNTER 2018-11-27 21:50 | Inpatient (IN) | payer MEDICARE, MEDICAID ==
[~2018-11-27] VITALS: Ht 152.4 cm; Wt 56.2 kg
[2018-11-27] MEDS ORDERED: Sodium Chloride 1,400 ML IVLG ONE (22:00)
[2018-11-27 22:05] VITALS: BP 116/67
--- NOTE | 2018-11-27 22:11 | Emergency Room Report ---
History of Present Illness General Chief Complaint: Fever Source: Medical Record, EMS Present Illness HPI Is a 78-year-old female with multiple medical problems including previous sepsis from pneumonia. [facility] with chief complaint of fever and cough and congestion. Onset today. Tylenol was given. No nausea no vomiting. She is currently taking Cipro and Flagyl at the [facility]. History is limited in this patient because of her mental status and nonverbal status. Per EMS, oxygenation was increased from 2 L to 5 L nasal cannula. 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, unspecified Hx Gastrointestinal Problems: Yes - PEG placement (01/2017) Hx Neurological Problems: No - episodes of confusion, encephalopathy Hx Cerebrovascular Accident: Yes - right side CVA, hemiplagia hemiparesis, left residual Hx Transient Ischemic Attacks: No Hx Dementia: Yes Review of Systems Constitutional: Reports: fever, malaise, weakness Eye: Denies: eye pain, blurred vision ENT: Denies: ear pain, nose congestion, throat swelling Respiratory: Reports: cough, shortness of breath Cardiovascular: Denies: chest pain, palpitations Gastrointestinal: Denies: abdominal pain, diarrhea, nausea, vomiting Musculoskeletal: Denies: back pain, joint pain Skin: Denies: rash Neurological: Denies: headache, numbness Endocrine: Denies: increased thirst, increased urine Hematologic/Lymphatic: Denies: easy bruising All Other Systems: negative except mentioned in HPI Physical Exam Vital Signs Date Time Temp Pulse Resp B/P (MAP) Pulse Ox O2 Delivery O2 Flow Rate FiO2 11/27/18 21:46 100.4 113 18 136/99 (111) 98 Nasal Cannula 5.0 Fever and hypoxia Sp02 EP Interpretation: abnormal General Appearance: mild distress, thin, Chronically Ill Head: normocephalic, atraumatic Eyes: bilateral eye PERRL, bilateral eye EOMI ENT: dry mucus membranes Neck: full range of motion, supple, no meningismus Respiratory: chest non-tender, respiratory distress, decreased breath sounds, accessory muscle use, rhonchi Cardiovascular #1: regular rate, rhythm, no murmur Gastrointestinal: normal bowel sounds, non tender, no mass, no organomegaly, no bruit, non-distended Musculoskeletal: back normal, other - contracted Psychiatric: mood/affect normal Procedures Critical Care Time Critical Care Time Critical care is mandated in this patient who presented with sepsis from pneumonia and UTI. Patient require my urgent intervention to attenuate the risks of embolic collapse which may lead to cardiovascular collapse and . Critical care time is 35 minutes excluding any reportable procedure. Critical care time included evaluation, multiple reevaluation, looking at old charts, interpreting laboratory and diagnostic data, discussing case with patient and family and consultants, and charting. Medical Decision Making Diagnostic Impression: Primary Impression: Sepsis Qualified Codes: A41.9 - Sepsis, unspecified organism Additional Impressions: HCAP (healthcare-associated pneumonia) UTI (urinary tract infection) Qualified Codes: N30.00 - Acute cystitis without hematuria Toxic metabolic encephalopathy Dehydration ER Course Presents with severe sepsis secondary to pneumonia and UTI. She grew out MRSA and Pseudomonas in the past. Wide spectrum antibiotic started. IV fluids given. Patient more alert now. Blood pressure stable. Will admit for IV antibiotics. I discussed case with Dr. New who will admit for Dr. Yates. EKG Diagnostic Results Rate: tachycardiac Rhythm: NSR ST Segments: other - NSST changes Rhythm Strip Diag. Results EP Interpretation: yes Rate: 100 Rhythm: NSR, no PVC's, no ectopy Chest X-Ray Diagnostic Results Chest X-Ray Diagnostic Results : Chest X-Ray Ordered: Yes # of Views/Limited/Complete: 1 View Indication: Shortness of Breath PA Xray: Interpretation reviewed Interpretation: no effusion, no pneumothorax, other - Bilateral interstitial infiltrates Impression: Other - b/l infiltrates Electronically Signed by: Jama Bethea MD Last Vital Signs Date Time Temp Pulse Resp B/P (MAP) Pulse Ox O2 Delivery O2 Flow Rate FiO2 11/27/18 21:46 100.4 113 18 136/99 (111) 98 Nasal Cannula 5.0 Status: improved Disposition: ADMITTED INPATIENT Condition: Serious Jama Bethea MD Nov 27, 2018 22:11
--- NOTE | 2018-11-27 22:15 | NUR ---
ED Nurse Note: Patient was BIBA from [facility] due to high fever. Per nurses at the facility temp was 102.4, and they give 650 Tylenol via G-tube. Patient's temp upon arrival was 100.7, AAO x0, skin is hot to touch. Patient presented with 2 wounds, on her sacral area and right heal.
[2018-11-27] MEDS ORDERED: Cefepime HCl 1 GM in D5W 55 ML IVPB ONE (22:30)
[2018-11-27] MEDS ORDERED: Vancomycin 1 GM in NS 275 ML IVPB ONE (22:30)
[2018-11-27 22:37] LABS: BASOPHILS % (AUTO) 0.9 % (0.0-2.0); EOSINOPHILS % (AUTO) 0.2 % (0.0-3.0); LYMPHOCYTES % (AUTO) 20.5 % (20.0-45.0); MEAN CORPUSCULAR VOLUME 98 FL (80-99); MONOCYTES % (AUTO) 5.4 % (1.0-10.0); NEUTROPHILS % (AUTO) 73.1 % (45.0-75.0); PLATELET COUNT 357 K/UL (150-450); WHITE BLOOD COUNT 12.1 K/UL (4.8-10.8)
[2018-11-27 22:52] LABS: INR 0.9 (0.9-1.1)
[2018-11-27 23:00] LABS: ANION GAP 8 mmol/L (5-15); BLOOD UREA NITROGEN 24 mg/dL (7-18); CALCIUM 10.2 MG/DL (8.5-10.1); CARBON DIOXIDE 32 MMOL/L (21-32); CHLORIDE 110 MMOL/L (98-107); CREATININE 0.7 MG/DL (0.55-1.30); SODIUM 150 MMOL/L (136-145)
[2018-11-27 23:05] LABS: ALANINE AMINOTRANSFERASE 25 U/L (12-78); ALBUMIN 2.7 G/DL (3.4-5.0); ALBUMIN/GLOBULIN RATIO 0.4 (1.0-2.7); ALKALINE PHOSPHATASE 92 U/L (46-116); ASPARTATE AMINO TRANSFERASE 37 U/L (15-37); BILIRUBIN,TOTAL 0.6 MG/DL (0.2-1.0)
[2018-11-27 23:19] LABS: APPEARANCE,URINE CLOUDY; BILIRUBIN, URINE NEGATIVE (NEGATIVE); GLUCOSE, URINE (UA) 2+ (NEGATIVE); KETONES,URINE 1+ (NEGATIVE); LEUKOCYTE ESTERASE ,URINE 3+ (NEGATIVE); NITRITE,URINE NEGATIVE (NEGATIVE); PH,URINE 6 (4.5-8.0); PROTEIN,URINE 2+ (NEGATIVE); UROBILINOGEN,URINE NORMAL MG/DL (0.0-1.0)
[2018-11-27 23:25] LABS: COLOR,URINE YELLOW
[2018-11-28] VITALS (7 sets, daily range): BP systolic 123–159; BP diastolic 61–91
--- NOTE | 2018-11-28 | NUR ---
NURSE NOTES: Received pt from korina Levi. Pt awake but nonverbal. Bed in lowest condition. Pressure ulcers noted on bilateral heel, right leg, and sacrum, otherwise skin intact. VSS. Call light within reach. Will continue to monitor.
--- NOTE | 2018-11-28 02:19 | NUR ---
NURSE NOTES: cALLED AND LEFT A Message with Dr. New regarding admission orders. Awaiting nic back.
--- NOTE | 2018-11-28 02:36 | NUR ---
NURSE NOTES: Dr. New called with the following orders: - contiue ER abx - continue home meds - cont feeds - cont DNR/DNI Made MD aware of pressure ulcers and abnormal labs. Will input orders and will continue to monitor.
[2018-11-28] MEDS ORDERED: DiphenhydrAMINE 25mg/10ml Elixir GT PRN (05:15)
[2018-11-28] MEDS ORDERED: Acetaminophen Soln 160mg/5ml ORAL PRN (05:15)
[2018-11-28] MEDS ORDERED: Milk of Magnesia 30ml Ud GT PRN (05:15)
[2018-11-28] MEDS ORDERED: Vitamin D 50,000 units cap ORAL SCH (05:15)
[2018-11-28] MEDS ORDERED: Albuterol/Ipratropium 3ml neb HHN PRN (05:15)
[2018-11-28] MEDS ORDERED: metroNIDAZOLE 500mg tab GT SCH (06:00)
--- NOTE | 2018-11-28 06:19 | NUR ---
ED Nurse Note: Patient was admited to Tele due to sepsis. Patient was transfered to the unit via GILBERTO eng, VSS at this time,no fever at this point. Patient has preassure ulsers, pictures were taken and downloaded in the computer.
[2018-11-28] MEDS: NovoLOG Insulin Flexpen SUBQ SCH ×3 (06:53→18:04)
--- NOTE | 2018-11-28 07:30 | NUR ---
HAND-OFF: Report given to FELIX Ayala. Pt stable.
--- NOTE | 2018-11-28 07:37 | NUR ---
RESPIRATORY NOTE: Manual scanned Mucomyst, due to its not scanning.
--- NOTE | 2018-11-28 07:44 | NUR ---
NURSE NOTES: Received report from FELIX Martines. Patient in bed resting, no active s/s cardiac, respiratory distress noticed at this time. Patient AOx0, nonverbal, open eyes spontaneously, RT at the bedside giving breathing treatment. G-tube feeding patent, intact, Glucerna 1.2 at prescribed rate, no residual at this time. IV on left FA 20G, Right AC 20G, asymptomatic, patent, intact. Bed in lowest position, side rails upx2, call light within reach. Will continue to monitor.
[2018-11-28] MEDS: Docusate 100mg/10ml Liq GT SCH ×2 (08:49→17:53)
[2018-11-28] MEDS: Lactobacillus-GG tablet GT SCH (08:49)
[2018-11-28] MEDS: Zinc Sulfate 220mg cap GT SCH (08:49)
[2018-11-28] MEDS: Aspirin Baby 81mg GT SCH (08:50)
[2018-11-28] MEDS: Metoprolol 25mg tab GT SCH ×2 (08:50→20:22)
[2018-11-28] MEDS: Heparin 5000 units/ml inj SUBQ SCH ×2 (08:51→20:24)
[2018-11-28] MEDS ORDERED: Ciprofloxacin 500mg tab GT SCH (09:00)
[2018-11-28] MEDS ORDERED: metFORMIN 500mg tab GT SCH (09:00)
--- NOTE | 2018-11-28 10:22 | NUR ---
RD ASSESSMENT & RECOMMENDATIONS SEE CARE ACTIVITY FOR COMPLETE ASSESSMENT DAILY ESTIMATED NEEDS: Needs based on Wound, DM, sepsis 56kg 25-30 kcals/kg 1866-7411 total kcals 1.25-2 g protein/kg 70-112 g total protein 25-30 mL/kg 9500-3042 total fluid mLs NUTRITION DIAGNOSIS: 1) Swallowing difficulty R/T dysphagia, CVA as evidenced by PEG dependent. 2) Increased kcal and pro needs r/t wound healing as evidenced by pt w/ previously stage 4 sacral and rt tibia wounds, pending new evaluation. CURRENT TF:Glucerna 1.2 @ 30ml/hr x 24 hrs -> INADEQUATE ENTERAL NUTRITION RECOMMENDATIONS: Glucerna 1.2 @ 55ml/hr x 24 hrs to provide 1320ml, 1584kcal, 79g prot, 1062ml free water - Rec to increase goal rate to 55ml/hr x 24 hrs : advance 10ml q 4-6 hrs as tolerated to goal. - HOB over 30 degrees - Without IVF, 120ml H20 flush q 6 hrs ADDITIONAL RECOMMENDATIONS: 1) Wound healing: Add Vit C 500mg QD : Add Gonsalo 1pkt BID 2) Monitor lytes daily, replete as needed 3) Calibrated bedscale wt
--- NOTE | 2018-11-28 10:45 | NUR ---
NURSE NOTES: Dr. Kwok made aware patient schedule for DuoNeb q6h, but also on Mucomyst q4h, and RT recommended to give med together. MD made aware plastic roller recommended to increase GT feeding to 55ml/h and Gonsalo BID. Per Md change DuoNeb q6h to q4h, and increase GT feeding as plastic roller recommended. Order noted, entered, carried out.
[2018-11-28] MEDS: Albuterol/Ipratropium 3ml neb HHN SCH ×4 (11:09→23:34)
[2018-11-28 11:26] LABS: BASOPHILS % (AUTO) 0.5 % (0.0-2.0); EOSINOPHILS % (AUTO) 0.5 % (0.0-3.0); HEMATOCRIT 31.9 % (37.0-47.0); HEMOGLOBIN 10.1 G/DL (12.0-16.0); LYMPHOCYTES % (AUTO) 17.5 % (20.0-45.0); MEAN CORPUSCULAR VOLUME 97 FL (80-99); MONOCYTES % (AUTO) 7.5 % (1.0-10.0); NEUTROPHILS % (AUTO) 73.9 % (45.0-75.0); PLATELET COUNT 298 K/UL (150-450); RED BLOOD COUNT 3.28 M/UL (4.20-5.40); RED CELL DISTRIBUTION WIDTH 14.1 % (11.6-14.8); WHITE BLOOD COUNT 10.4 K/UL (4.8-10.8)
[2018-11-28 11:44] LABS: ALANINE AMINOTRANSFERASE 19 U/L (12-78); ALBUMIN 2.1 G/DL (3.4-5.0); ALBUMIN/GLOBULIN RATIO 0.4 (1.0-2.7); ALKALINE PHOSPHATASE 71 U/L (46-116); ANION GAP 2 mmol/L (5-15); ASPARTATE AMINO TRANSFERASE 19 U/L (15-37); BILIRUBIN,TOTAL 0.6 MG/DL (0.2-1.0); BLOOD UREA NITROGEN 18 mg/dL (7-18); CALCIUM 9.4 MG/DL (8.5-10.1); CARBON DIOXIDE 35 MMOL/L (21-32); CHLORIDE 115 MMOL/L (98-107); CREATININE 0.5 MG/DL (0.55-1.30); POTASSIUM 3.2 MMOL/L (3.5-5.1); SODIUM 152 MMOL/L (136-145)
[2018-11-28] MEDS ORDERED: Levofloxacin 500mg tab ORAL SCH (12:08)
--- NOTE | 2018-11-28 12:17 | Infectious Diseases Prog Note ---
Assessment/Plan Assessment/Plan Full consult dictated; A) 1) sepsis, ? pna, leukocytosis, fevers 2) sob, pna, uti 30 allergies - nkda P) 1) vancomycin, cefepime, flagyl and levofloxacin 2) check cultures, labs and chest x-ray 3) wound care per protocol Subjective Allergies: Coded Allergies: No Known Allergies (Unverified , 02/04/17) Objective Vital Signs Last 24 Hour Vital Signs Date Time Temp Pulse Resp B/P (MAP) Pulse Ox O2 Delivery O2 Flow Rate FiO2 11/28/18 11:09 97 18 99 Venturi Mask 10.0 45 77 18 98 11/28/18 09:00 Non-Rebreather 13.0 11/28/18 08:50 102 154/91 11/28/18 08:00 12.0 11/28/18 08:00 102 11/28/18 08:00 97.4 102 20 154/91 (112) 100 11/28/18 07:37 100 20 99 Venturi Mask 14.0 55 11/28/18 07:37 97 18 99 Venturi Mask 14.0 55 100 20 99 11/28/18 07:35 100 Non-Rebreather 15.0 100 11/28/18 06:07 98.2 89 20 155/86 98 Non-Rebreather 12.0 11/28/18 06:07 98.2 24 155/86 98 Non-Rebreather 12.0 11/28/18 05:06 12.0 11/28/18 04:39 Non-Rebreather 11/28/18 04:00 98.2 95 24 155/86 (109) 98 11/28/18 04:00 86 11/28/18 00:00 98 11/28/18 00:00 98.8 100 24 159/86 (110) 100 11/27/18 22:05 100 22 Simple Mask 10.0 11/27/18 22:05 100.7 100 22 116/67 100 Simple Mask 10.0 11/27/18 21:46 100.4 113 18 136/99 (111) 98 Nasal Cannula 5.0 Height (Feet): 5 Height (Inches): 0.00 Weight (Pounds): 124 Laboratory Tests Test 11/27/18 22:00 11/27/18 23:12 11/27/18 23:32 11/28/18 10:45 White Blood Count 12.1 K/UL (4.8-10.8) H 10.4 K/UL (4.8-10.8) Red Blood Count 4.10 M/UL (4.20-5.40) L 3.28 M/UL (4.20-5.40) L Hemoglobin 13.0 G/DL (12.0-16.0) 10.1 G/DL (12.0-16.0) L Hematocrit 40.0 % (37.0-47.0) 31.9 % (37.0-47.0) L Mean Corpuscular Volume 98 FL (80-99) 97 FL (80-99) Mean Corpuscular Hemoglobin 31.7 PG (27.0-31.0) H 30.9 PG (27.0-31.0) Mean Corpuscular Hemoglobin Concent 32.4 G/DL (32.0-36.0) 31.8 G/DL (32.0-36.0) L Red Cell Distribution Width 14.0 % (11.6-14.8) 14.1 % (11.6-14.8) Platelet Count 357 K/UL (150-450) 298 K/UL (150-450) Mean Platelet Volume 6.5 FL (6.5-10.1) 6.6 FL (6.5-10.1) Neutrophils (%) (Auto) 73.1 % (45.0-75.0) 73.9 % (45.0-75.0) Lymphocytes (%) (Auto) 20.5 % (20.0-45.0) 17.5 % (20.0-45.0) L Monocytes (%) (Auto) 5.4 % (1.0-10.0) 7.5 % (1.0-10.0) Eosinophils (%) (Auto) 0.2 % (0.0-3.0) 0.5 % (0.0-3.0) Basophils (%) (Auto) 0.9 % (0.0-2.0) 0.5 % (0.0-2.0) Prothrombin Time 9.6 SEC (9.30-11.50) Prothromb Time International Ratio 0.9 (0.9-1.1) Activated Partial Thromboplast Time 23 SEC (23-33) Sodium Level 150 MMOL/L (136-145) H 152 MMOL/L (136-145) H Potassium Level 4.0 MMOL/L (3.5-5.1) 3.2 MMOL/L (3.5-5.1) L Chloride Level 110 MMOL/L (98-107) H 115 MMOL/L (98-107) H Carbon Dioxide Level 32 MMOL/L (21-32) 35 MMOL/L (21-32) H Anion Gap 8 mmol/L (5-15) 2 mmol/L (5-15) L Blood Urea Nitrogen 24 mg/dL (7-18) H 18 mg/dL (7-18) Creatinine 0.7 MG/DL (0.55-1.30) 0.5 MG/DL (0.55-1.30) L Estimat Glomerular Filtration Rate mL/min (>60) mL/min (>60) Glucose Level 196 MG/DL (74-106) H 68 MG/DL (74-106) #L Lactic Acid Level 3.40 mmol/L (0.4-2.0) H 2.20 mmol/L (0.66-2.22) 1.40 mmol/L (0.4-2.0) Calcium Level 10.2 MG/DL (8.5-10.1) H 9.4 MG/DL (8.5-10.1) Total Bilirubin 0.6 MG/DL (0.2-1.0) 0.6 MG/DL (0.2-1.0) Aspartate Amino Transf (AST/SGOT) 37 U/L (15-37) 19 U/L (15-37) Alanine Aminotransferase (ALT/SGPT) 25 U/L (12-78) 19 U/L (12-78) Alkaline Phosphatase 92 U/L (46-116) 71 U/L (46-116) Troponin I 0.002 ng/mL (0.000-0.056) Total Protein 9.3 G/DL (6.4-8.2) H 7.5 G/DL (6.4-8.2) Albumin 2.7 G/DL (3.4-5.0) L 2.1 G/DL (3.4-5.0) L Globulin 6.6 g/dL 5.4 g/dL Albumin/Globulin Ratio 0.4 (1.0-2.7) L 0.4 (1.0-2.7) L Urine Color Yellow Urine Appearance Cloudy Urine pH 6 (4.5-8.0) Urine Specific [place] 1.010 (1.005-1.035) Urine Protein 2+ (NEGATIVE) H Urine Glucose (UA) 2+ (NEGATIVE) H Urine Ketones 1+ (NEGATIVE) H Urine Blood 2+ (NEGATIVE) H Urine Nitrite Negative (NEGATIVE) Urine Bilirubin Negative (NEGATIVE) Urine Urobilinogen Normal MG/DL (0.0-1.0) Urine Leukocyte Esterase 3+ (NEGATIVE) H Urine RBC 5-10 /HPF (0 - 2) H Urine WBC 40-60 /HPF (0 - 2) H Urine Squamous Epithelial Cells None /LPF (NONE/OCC) Urine Bacteria Many /HPF (NONE) H Urine Yeast Many /HPF (NONE) H Pro-B-Type Natriuretic Peptide 551 pg/mL (0-125) H Current Medications Medications (Trade) Dose Ordered Sig/Wayne Route PRN Reason Start Time Stop Time Status Last Admin Dose Admin Acetaminophen (Tylenol Peds) 480 mg Q6H PRN ORAL Mild Pain/Temp > 100.5 11/28/18 05:15 12/28/18 05:14 Acetylcysteine (Mucomyst) 100 mg Q4HRT [facility] 11/28/18 07:00 12/28/18 06:59 11/28/18 11:09 Albuterol/ Ipratropium (Albuterol/ Ipratropium) 3 ml Q4HRT [facility] 11/28/18 11:00 12/03/18 10:59 11/28/18 11:09 Aspirin (ASA) 81 mg DAILY GT 11/28/18 09:00 12/28/18 08:59 11/28/18 08:50 Atorvastatin Calcium (Lipitor) 40 mg BEDTIME GT 11/28/18 21:00 12/28/18 20:59 Bisacodyl (Dulcolax) 10 mg DAILY PRN RECTAL Constipation 11/28/18 05:15 12/28/18 05:14 Cefepime HCl 1 gm/ Dextrose 55 ml @ 110 mls/hr Q24H IVPB 11/28/18 22:00 12/05/18 21:59 Diphenhydramine HCl (Benadryl) 25 mg Q6H PRN GT Itching 11/28/18 05:15 12/28/18 05:14 Docusate Sodium (Colace) 100 mg TWICE A DAY GT 11/28/18 09:00 12/28/18 08:59 11/28/18 08:49 Famotidine (Pepcid) 20 mg BID GT 11/28/18 09:00 12/28/18 08:59 11/28/18 08:49 Heparin Sodium (Porcine) (Heparin 5000 units/ml) 5,000 units EVERY 12 HOURS SUBQ 11/28/18 09:00 12/28/18 08:59 11/28/18 08:51 Insulin Aspart (NovoLOG) 9 units NOVOTIAC SUBQ 11/28/18 06:30 12/28/18 06:29 11/28/18 06:53 Insulin Detemir (Levemir) 30 units BEDTIME SUBQ 11/28/18 21:00 12/28/18 20:59 Lactated Ringer's 1,000 ml @ 75 mls/hr [id number] IV 11/28/18 12:00 12/28/18 11:59 Lactobacillus Acidophilus (Culturelle) 1 tab DAILY GT 11/28/18 09:00 12/28/18 08:59 11/28/18 08:49 Levofloxacin (Levaquin) 250 mg DAILY ORAL 11/29/18 09:00 12/06/18 08:59 Levofloxacin (Levaquin) 500 mg ONCE ORAL 11/28/18 12:08 11/28/18 14:00 Magnesium Hydroxide (Mom) 30 ml DAILY PRN GT Constipation 11/28/18 05:15 12/28/18 05:14 Metoprolol Tartrate (Lopressor) 12.5 mg EVERY 12 HOURS GT 11/28/18 09:00 12/28/18 08:59 11/28/18 08:50 Metronidazole (Flagyl) 500 mg EVERY 8 HOURS GT 11/28/18 06:00 12/05/18 05:59 Potassium Chloride (K-Dur) 40 meq ONCE ORAL 11/28/18 12:07 11/28/18 14:00 Vancomycin HCl (Vanco rx to dose) 1 ea DAILY PRN MISC VANCO 11/28/18 06:45 12/28/18 06:44 Vancomycin HCl 1 gm/Dextrose 275 ml @ 183.708 mls/hr Q24H IVPB 11/29/18 00:00 12/04/18 00:00 Zinc Sulfate (Zinc Sulfate) 220 mg DAILY GT 11/28/18 09:00 12/28/18 08:59 11/28/18 08:49 Milton Valladares MD Nov 28, 2018 12:17
[2018-11-28] MEDS ORDERED: Acetaminophen 650mg/20.3ml GT PRN (12:45)
[2018-11-28] MEDS: LR 1000ml 1,000 ML IV SCH (12:52)
[2018-11-28] MEDS ORDERED: Albuterol/Ipratropium 3ml neb HHN SCH (13:00)
[2018-11-28] MEDS: metroNIDAZOLE 500mg tab GT SCH ×2 (13:07→22:02)
--- NOTE | 2018-11-28 13:33 | NUR ---
CASE MANAGEMENT: INITIAL REVIEW 78 YR OLD FEMALE BIBA FROM [facility] CC: FEVER SI: SEPSIS; HC ASSOCIATED PNA; TOXIC ENCEPHALOPATHY; UTI; DEHYDRATION 100.4 113 18 136/99 98 NC 5L CA 10.2; WBC 12.1; RBC 4.10; BUN 24; BG 196; LA 3.40 IS: IV NS BOLUS X1 IV LEVOFLOXACIN X1 IV VANCOMYCIN X1 IV CEFEPIME X1 KCL PO X1 : 2E TELE UNIT DCP: RETURN TO [facility] PLAN: CXR SP CX PENDING ASE MANAGEMENT: INITIAL REVIEW 11/28/18 SI: SEPSIS; HC ASSOCIATED PNA; TOXIC ENCEPHALOPATHY; UTI; DEHYDRATION 100.4 113 18 136/99 98 NC 5L CA 10.2; WBC 12.1; RBC 4.10; BUN 24; BG 196; LA 3.40 IS: LEVAQUIN GT QD FLAGYL GT Q8HR IV VANCOMYCIN Q24HR IV CEFEPIME Q24HR IV LACTATED RINGER @75HR HEPARIN SQ Q12HR LOPRESSOR GT Q12HR LIPITOR GT HS ZINC SULFATE GT QD LEVEMIR SQ HS MUCOMYST HHN Q4/PRN NOVOLOG SQ TIAC ASA GT X1 : 2E TELE DCP: RETURN TO [facility]
--- NOTE | 2018-11-28 14:06 | Diagnostic Imaging Report ---
Indication: Shortness of breath Technique: One view of the chest Comparison: 11/15/2018 Findings: There is retrocardiac consolidation again demonstrated. There is increased right basilar atelectasis. Bilateral mild interstitial disease appears similar to the prior exam. Pleural spaces are grossly clear Impression: Retrocardiac consolidation and bilateral interstitial opacities. Similarity to prior exam indicates that there may be a chronic component. Correlate with clinical findings
--- NOTE | 2018-11-28 17:00 | History and Physical ---
History of Present Illness General Date patient seen: Nov 28, 2018 Reason for Hospitalization: sepsis Present Illness HPI Sacral decubitus ulcer, diabetes mellitus type 2, hypertension, with a recent hospitalization from 11/06/18 to 11/26/18 of septic shock and acute hypoxic respiratory failure secondary to MRSA and Pseudomonas pneumonia. Patient was discharged to a SNF on vancomycin and ciprofloxacin and Flagyl to complete a 14- day course of antibiotics with an end date of 11/22/2018. The patient was at the correction and found to have a fever and increased cough and congestion for 1 day. The patient's oxygen requirements increased from 2 L to 5 L nasal cannula. Further subjective history unable to be obtained as patient is nonverbal at baseline. The patient was sent to [facility] for further evaluation In the ER the patient had a temperature of 100.4 tachycardic to 113 respirations 18 saturating 98% on 5 L of nasal cannula. She had a WBC count of 12 and a lactate of 3.9 which improved to 2.2 with fluids. She was hypernatremic to 150. The rest of her labs unremarkable Allergies: No known drug allergies Medictions: reviewed Past medical history: See HPI Past surgical history: Gtube Family history: Unable to obtain as patient is nonverbal Social history unable to obtain as patient is nonverbal Allergies: Coded Allergies: No Known Allergies (Unverified , 02/04/17) Medication History Scheduled Acetylcysteine* (Acetylcysteine*), 100 MG HHN Q4H, (Reported) Aspirin* (Aspirin*), 81 MG GT ONCE A DAY, (Reported) Atorvastatin Calcium* (Atorvastatin Calcium*), 40 MG GT BEDTIME, (Reported) Ciprofloxacin Hcl* (Ciprofloxacin Hcl*), 500 MG GT EVERY 12 HOURS Docusate Sodium* (Docusate Sodium*), 100 MG GT TWICE A DAY, (Reported) Ergocalciferol (Vitamin D2)* (Vitamin D*), 5,000 UNIT GT ONCE A WEEK, (Reported) Famotidine (Famotidine), 20 MG GT BID Fish Oil (Fish Oil 1,000 mg Capsule), 2,000 MG GT BID, (Reported) Furosemide* (Lasix*), 20 MG GT DAILY Heparin Sod (Porcine) (Heparin Sodium*), 5,000 UNITS SUBQ EVERY 12 HOURS Insulin Aspart (Novolog Flexpen), 9 UNITS SUBQ NOVOTIAC Insulin Detemir (Levemir Flexpen), 30 UNITS SUBQ BEDTIME Lactobacillus Rhamnosus Gg* (Culturelle*), 1 CAP GT ONCE A DAY, (Reported) Metformin Hcl* (Metformin Hcl*), 500 MG GT TWICE A DAY, (Reported) Metoprolol Tartrate* (Metoprolol Tartrate*), 12.5 MG GT EVERY 12 HOURS, ( Reported) Metronidazole* (Flagyl*), 500 MG GT EVERY 8 HOURS Multivitamin Liquid* (Multi-Delyn*), 5 ML GT DAILY, (Reported) Ranitidine Hcl* (Zantac*), 150 MG GT DAILY, (Reported) Zinc Sulfate (Zinc Sulfate*), 220 MG GT DAILY, (Reported) Scheduled PRN Acetaminophen* (Acetaminophen*), 480 MG GT Q6H PRN for Mild Pain/Temp > 100.5, ( Reported) Bisacodyl (Bisacodyl), 10 MG RC DAILY PRN for Constipation, (Reported) Diphenhydramine Hcl* (Diphenhydramine Hcl*), 25 MG GT Q6H PRN for Itching, ( Reported) Ipratropium/Albuterol Sulfate (Iprat-Albut 0.5-3(2.5) Mg/3 Ml), 3 ML IH Q6HR PRN for Shortness of Breath, (Reported) Magnesium Hydroxide* (Milk Of Magnesia*), 30 ML GT DAILY PRN for Constipation, ( Reported) Discontinued Medications Acetaminophen 160MG/5ML* (Acetaminophen*), 640 MG ORAL Q6H PRN for Pain Scale (5 -7), (Reported) Discontinued Reason: Therapy completed Ascorbic Acid* (Vitamin C*), 500 MG GT BID, (Reported) Discontinued Reason: Therapy completed Cran/Vitc/Mannose/Inulin/Brom (Uti-Stat Liquid), 30 ML GT DAILY, (Reported) Discontinued Reason: Therapy completed Hydrocodone Bit/Acetaminophen 5-325* ([place] 5-325*), 1 TAB ORAL Q6H PRN for For Pain, (Reported) Discontinued Reason: Therapy completed Ipratropium/Albuterol Sulfate (DuoNeb 0.5-3(2.5)mg/3ml), 3 ML HHN Q6HRT Discontinued Reason: Therapy completed Metoclopramide Hcl* (Metoclopramide Hcl*), 5 ML GT EVERY 6 HOURS PRN for Nausea & Vomiting, (Reported) Discontinued Reason: Therapy completed Na Phos,M-B/Na Phos,Di-Ba* (Fleet Enema*), 133 ML RECTAL DAILY PRN for Constipation, (Reported) Discontinued Reason: Therapy completed Ondansetron* (Zofran*), 4 MG GT Q6H PRN for Nausea & Vomiting, (Reported) Discontinued Reason: Therapy completed Vancomycin Hcl/D5w (Vancomycin-D5w 500 Mg/100 Ml), 500 MG IV Q12HR Discontinued Reason: Auto Discontinued [Vanco pharmacy to dose], 1 EA MISC DAILY PRN Discontinued Reason: Therapy completed Patient History Limited by: medical condition History Provided By: Medical Record, EMS Healthcare decision maker Resuscitation status DNR/DNI Advanced Directive on File Review of Systems ROS Narrative Unable to obtain as patient is nonverbal Physical Exam General Appearance: WD/WN, no apparent distress, alert Lines, tubes and drains: peripheral HEENT: normocephalic, atraumatic, anicteric, other - Dry mucous membranes Neck: non-tender, normal alignment, supple Respiratory/Chest: chest wall non-tender, other - Coarse breath sounds bilaterally Cardiovascular/Chest: normal peripheral pulses, normal rate, regular rhythm, no JVD Abdomen: normal bowel sounds, non tender, soft, feeding tube Extremities: normal range of motion, non-tender, normal inspection, no calf tenderness, normal capillary refill, non-pitting Skin Exam: normal pigmentation, warm/dry 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, no motor/sensory deficits, alert, oriented x 3 Lymphatic: anterior cervical - No lymphadenopathy Musculoskeletal: normal muscle bulk, no effusion Last 24 Hour Vital Signs Date Time Temp Pulse Resp B/P (MAP) Pulse Ox O2 Delivery O2 Flow Rate FiO2 11/28/18 16:00 98.7 86 20 123/61 (81) 100 11/28/18 16:00 6.0 35 11/28/18 15:15 83 18 99 Venturi Mask 6.0 35 83 18 98 11/28/18 12:00 83 11/28/18 12:00 10.0 11/28/18 12:00 97.6 87 20 152/83 (106) 100 11/28/18 11:09 97 18 99 Venturi Mask 10.0 45 77 18 98 11/28/18 09:00 Non-Rebreather 13.0 11/28/18 08:50 102 154/91 11/28/18 08:00 12.0 11/28/18 08:00 102 11/28/18 08:00 97.4 102 20 154/91 (112) 100 11/28/18 07:37 100 20 99 Venturi Mask 14.0 55 11/28/18 07:37 97 18 99 Venturi Mask 14.0 55 100 20 99 11/28/18 07:35 100 Non-Rebreather 15.0 100 11/28/18 06:07 98.2 89 20 155/86 98 Non-Rebreather 12.0 11/28/18 06:07 98.2 24 155/86 98 Non-Rebreather 12.0 11/28/18 05:06 12.0 11/28/18 04:39 Non-Rebreather 11/28/18 04:00 98.2 95 24 155/86 (109) 98 11/28/18 04:00 86 11/28/18 00:00 98 11/28/18 00:00 98.8 100 24 159/86 (110) 100 11/27/18 22:05 100 22 Simple Mask 10.0 11/27/18 22:05 100.7 100 22 116/67 100 Simple Mask 10.0 11/27/18 21:46 100.4 113 18 136/99 (111) 98 Nasal Cannula 5.0 Intake and Output 11/27/18 11/28/18 19:00 07:00 Output Total 50 ml Balance -50 ml Output Urine Total 50 ml # Bowel Movements 1 Laboratory Tests Test 11/27/18 22:00 11/27/18 23:12 11/27/18 23:32 11/28/18 10:45 White Blood Count 12.1 K/UL (4.8-10.8) H 10.4 K/UL (4.8-10.8) Red Blood Count 4.10 M/UL (4.20-5.40) L 3.28 M/UL (4.20-5.40) L Hemoglobin 13.0 G/DL (12.0-16.0) 10.1 G/DL (12.0-16.0) L Hematocrit 40.0 % (37.0-47.0) 31.9 % (37.0-47.0) L Mean Corpuscular Volume 98 FL (80-99) 97 FL (80-99) Mean Corpuscular Hemoglobin 31.7 PG (27.0-31.0) H 30.9 PG (27.0-31.0) Mean Corpuscular Hemoglobin Concent 32.4 G/DL (32.0-36.0) 31.8 G/DL (32.0-36.0) L Red Cell Distribution Width 14.0 % (11.6-14.8) 14.1 % (11.6-14.8) Platelet Count 357 K/UL (150-450) 298 K/UL (150-450) Mean Platelet Volume 6.5 FL (6.5-10.1) 6.6 FL (6.5-10.1) Neutrophils (%) (Auto) 73.1 % (45.0-75.0) 73.9 % (45.0-75.0) Lymphocytes (%) (Auto) 20.5 % (20.0-45.0) 17.5 % (20.0-45.0) L Monocytes (%) (Auto) 5.4 % (1.0-10.0) 7.5 % (1.0-10.0) Eosinophils (%) (Auto) 0.2 % (0.0-3.0) 0.5 % (0.0-3.0) Basophils (%) (Auto) 0.9 % (0.0-2.0) 0.5 % (0.0-2.0) Prothrombin Time 9.6 SEC (9.30-11.50) Prothromb Time International Ratio 0.9 (0.9-1.1) Activated Partial Thromboplast Time 23 SEC (23-33) Sodium Level 150 MMOL/L (136-145) H 152 MMOL/L (136-145) H Potassium Level 4.0 MMOL/L (3.5-5.1) 3.2 MMOL/L (3.5-5.1) L Chloride Level 110 MMOL/L (98-107) H 115 MMOL/L (98-107) H Carbon Dioxide Level 32 MMOL/L (21-32) 35 MMOL/L (21-32) H Anion Gap 8 mmol/L (5-15) 2 mmol/L (5-15) L Blood Urea Nitrogen 24 mg/dL (7-18) H 18 mg/dL (7-18) Creatinine 0.7 MG/DL (0.55-1.30) 0.5 MG/DL (0.55-1.30) L Estimat Glomerular Filtration Rate mL/min (>60) mL/min (>60) Glucose Level 196 MG/DL (74-106) H 68 MG/DL (74-106) #L Lactic Acid Level 3.40 mmol/L (0.4-2.0) H 2.20 mmol/L (0.66-2.22) 1.40 mmol/L (0.4-2.0) Calcium Level 10.2 MG/DL (8.5-10.1) H 9.4 MG/DL (8.5-10.1) Total Bilirubin 0.6 MG/DL (0.2-1.0) 0.6 MG/DL (0.2-1.0) Aspartate Amino Transf (AST/SGOT) 37 U/L (15-37) 19 U/L (15-37) Alanine Aminotransferase (ALT/SGPT) 25 U/L (12-78) 19 U/L (12-78) Alkaline Phosphatase 92 U/L (46-116) 71 U/L (46-116) Troponin I 0.002 ng/mL (0.000-0.056) Total Protein 9.3 G/DL (6.4-8.2) H 7.5 G/DL (6.4-8.2) Albumin 2.7 G/DL (3.4-5.0) L 2.1 G/DL (3.4-5.0) L Globulin 6.6 g/dL 5.4 g/dL Albumin/Globulin Ratio 0.4 (1.0-2.7) L 0.4 (1.0-2.7) L Urine Color Yellow Urine Appearance Cloudy Urine pH 6 (4.5-8.0) Urine Specific [place] 1.010 (1.005-1.035) Urine Protein 2+ (NEGATIVE) H Urine Glucose (UA) 2+ (NEGATIVE) H Urine Ketones 1+ (NEGATIVE) H Urine Blood 2+ (NEGATIVE) H Urine Nitrite Negative (NEGATIVE) Urine Bilirubin Negative (NEGATIVE) Urine Urobilinogen Normal MG/DL (0.0-1.0) Urine Leukocyte Esterase 3+ (NEGATIVE) H Urine RBC 5-10 /HPF (0 - 2) H Urine WBC 40-60 /HPF (0 - 2) H Urine Squamous Epithelial Cells None /LPF (NONE/OCC) Urine Bacteria Many /HPF (NONE) H Urine Yeast Many /HPF (NONE) H Pro-B-Type Natriuretic Peptide 551 pg/mL (0-125) H Height (Feet): 5 Height (Inches): 0.00 Weight (Pounds): 124 Medications Current Medications Medications (Trade) Dose Ordered Sig/[place] Route PRN Reason Start Time Stop Time Status Last Admin Dose Admin Acetaminophen (Tylenol) 480 mg Q6H PRN GT Mild Pain/Temp > 100.5 11/28/18 12:45 12/28/18 12:44 Acetylcysteine (Mucomyst) 100 mg Q4HRT [facility] 11/28/18 07:00 12/28/18 06:59 11/28/18 15:14 Albuterol/ Ipratropium (Albuterol/ Ipratropium) 3 ml Q4HRT [facility] 11/28/18 11:00 12/03/18 10:59 11/28/18 15:14 Aspirin (ASA) 81 mg DAILY GT 11/28/18 09:00 12/28/18 08:59 11/28/18 08:50 Atorvastatin Calcium (Lipitor) 40 mg BEDTIME GT 11/28/18 21:00 12/28/18 20:59 Bisacodyl (Dulcolax) 10 mg DAILY PRN RECTAL Constipation 11/28/18 05:15 12/28/18 05:14 Cefepime HCl 1 gm/ Dextrose 55 ml @ 110 mls/hr Q24H IVPB 11/28/18 22:00 12/05/18 21:59 Diphenhydramine HCl (Benadryl) 25 mg Q6H PRN GT Itching 11/28/18 05:15 12/28/18 05:14 Docusate Sodium (Colace) 100 mg TWICE A DAY GT 11/28/18 09:00 12/28/18 08:59 11/28/18 08:49 Famotidine (Pepcid) 20 mg BID GT 11/28/18 09:00 12/28/18 08:59 11/28/18 08:49 Heparin Sodium (Porcine) (Heparin 5000 units/ml) 5,000 units EVERY 12 HOURS SUBQ 11/28/18 09:00 12/28/18 08:59 11/28/18 08:51 Insulin Aspart (NovoLOG) 9 units NOVOTIAC SUBQ 11/28/18 06:30 12/28/18 06:29 11/28/18 06:53 Insulin Detemir (Levemir) 30 units BEDTIME SUBQ 11/28/18 21:00 12/28/18 20:59 Lactated Ringer's 1,000 ml @ 75 mls/hr [id number] IV 11/28/18 12:00 12/28/18 11:59 11/28/18 12:52 Lactobacillus Acidophilus (Culturelle) 1 tab DAILY GT 11/28/18 09:00 12/28/18 08:59 11/28/18 08:49 Levofloxacin (Levaquin) 250 mg DAILY GT 11/29/18 09:00 12/06/18 08:59 Magnesium Hydroxide (Mom) 30 ml DAILY PRN GT Constipation 11/28/18 05:15 12/28/18 05:14 Metoprolol Tartrate (Lopressor) 12.5 mg EVERY 12 HOURS GT 11/28/18 09:00 12/28/18 08:59 11/28/18 08:50 Metronidazole (Flagyl) 500 mg EVERY 8 HOURS GT 11/28/18 14:00 12/05/18 13:59 11/28/18 13:07 Vancomycin HCl (Vanco rx to dose) 1 ea DAILY PRN MISC VANCO 11/28/18 06:45 12/28/18 06:44 Vancomycin HCl 1 gm/Dextrose 275 ml @ 183.708 mls/hr Q24H IVPB 11/29/18 00:00 12/04/18 00:00 Zinc Sulfate (Zinc Sulfate) 220 mg DAILY GT 11/28/18 09:00 12/28/18 08:59 11/28/18 08:49 Assessment/Plan Problem List: (1) Acute and chronic respiratory failure with hypoxia ICD Codes: J96.21 - Acute and chronic respiratory failure with hypoxia SNOMED: 58699768, 539877518 (2) Severe sepsis ICD Codes: A41.9 - Sepsis, unspecified organism; R65.20 - Severe sepsis without septic shock SNOMED: 26874431 (3) Dehydration ICD Codes: E86.0 - Dehydration SNOMED: 06451038 (4) Toxic metabolic encephalopathy ICD Codes: G92 - Toxic encephalopathy SNOMED: 780742614 (5) Lactic acid acidosis ICD Codes: E87.2 - Acidosis SNOMED: 29320874 (6) Hypernatremia ICD Codes: E87.0 - Hyperosmolality and hypernatremia SNOMED: 436558572 (7) DM (diabetes mellitus) ICD Codes: E11.9 - Type 2 diabetes mellitus without complications SNOMED: 65017186 Status: stable Assessment/Plan: This is a 78-year-old female with a past medical history of diabetes mellitus type 2, hypertension, CVA, advanced dementia, dysphagia status post PEG tube, with a recent hospitalization for MRSA/Pseudomonas pneumonia, who presents with 1 day history of acute hypoxic respiratory failure and severe sepsis secondary to recurrent pneumonia. #Acute on chronic hypoxic respiratory failure secondary to HCAP #Severe sepsis secondary to presumed HCAP (fever, tachycardia, elevated lactate) #Metabolic encephalopathy secondary to HCAP #Lactic acidosis secondary to sepsis > CXR: Retrocardiac consolidation and bilateral interstitial opacities. -Admit to telemetry -Sputum culture -Blood cultures x2 -Trend CBC -Appreciate infectious disease recommendations: Dr. Solis -Appreciate pulmonology recommendations: Dr. Milner -Titrate SPO2 to greater than 92% -Duo nebs and Mucomyst every 4 hours ATC -Pulmonary hygiene -Cefepime 1 g every 24 hours (11/27 - ) -Levaquin 250 mg NG daily (11/27 - ) -Flagyl 500 mg every 8 NG daily (11/27 - ) -Vancomycin per pharmacy (11/27 - ) #Hypernatremia. Free water deficit 1.8 L -Lactated Ringer's at 50 cc an hour to correct hypovolemia -Free water flushes 200 cc every 4 hours -Trend BMP -Correction of sodium no more than 8M EQ #Diabetes mellitus type 2 -Levemir 30 units subcu nightly -NovoLog 9 units 3 times daily AC -Sliding scale insulin -Accu-Cheks before meals at bedtime #Sacral decubitus ulcer, present on admission -Appreciate wound care consult -Appreciate general surgery recommendations: Dr. Jackson -Zinc 220 mg NG daily #Advanced dementia #Goals of care -Will need to discuss with son regarding hospice given that the patient has been admitted multiple times and has end-stage dementia #HTN #History of CAD -Continue aspirin 81 mg p.o. daily Continue atorvastatin 40 mg p.o. nightly -Continue metoprolol 12.5 mg p.o. every 12 hours FENPPX DVTPPX: Heparin 5k units SBQ Q8h GI PPX: pepcid 20mg PO BID Fluids: LR as above Diet: Tube feeding Lines: none PT/OT: pending Dispo: Back to SNF once acute issues resolved 73 minutes spent on this encounter. Discussed with RN, infectious disease, pulmonology. > 50% spent on counseling and care coordination. Time of note may not reflect time patient was seen. Parviz Kwok D.O. Nov 28, 2018 17:00
--- NOTE | 2018-11-28 17:36 | Consultation ---
Consult Note Assessment/Plan Dict # [id number] Bimal Milner MD Nov 28, 2018 17:36
--- NOTE | 2018-11-28 19:15 | Consultation ---
DATE OF CONSULTATION: 11/28/2018 PULMONARY CONSULTATION CONSULTING PHYSICIAN: Bimal Milner M.D. REFERRING PHYSICIAN: Yamileth Yates M.D. REASON FOR CONSULTATION: Aspiration pneumonia. HISTORY OF PRESENT ILLNESS: The patient is a very unfortunate 78-year-old female with history of prior CVA, G-tube dependent with recurrent aspiration pneumonias and multiple medical problems, last seen by me earlier this month since she was admitted with aspiration pneumonia and respiratory failure, now presenting back to the ER from facility with fever, cough, congestion for one day. She was on Cipro and Flagyl at the correction. In the , her T-max was 100.7, and she was initially a requiring up to 13 liters via Venturi mask and now her oxygenation has somewhat stabilized. She had a leukocytosis on presentation and evidence of urinary tract infection. Chest x-ray showed bilateral opacities and retrocardiac opacity as well. There is no prior CT scan of the chest for comparison. PAST MEDICAL HISTORY: 1. group home resident. 2. CVA. 3. Encephalopathic. 4. G-tube dependence. 5. Recurrent aspiration pneumonia. 6. Diabetes. 7. Hypertension. 8. Hyperlipidemia. PAST SURGICAL HISTORY: Unknown. ALLERGIES: No known drug allergies. MEDICATIONS: Prior to admission medications reviewed. Current medications reviewed. SOCIAL HISTORY: group home resident, otherwise unknown. FAMILY HISTORY: Noncontributory. REVIEW OF SYSTEMS: Unobtainable. PHYSICAL EXAMINATION: VITAL SIGNS: Temperature 97.6, pulse 87, blood pressure 152/82, respiratory rate 20, and saturating 99% on Venturi mask. GENERAL: Frail, nonverbal female. HEENT: Normocephalic and atraumatic. Oropharynx is clear. Moist mucous membranes. NECK: Supple without lymphadenopathy or JVD. CHEST: Coarse breath sounds. HEART: Regular rate and rhythm. ABDOMEN: Soft, nontender, nondistended. G-tube is intact, clean and dry. EXTREMITIES: No cyanosis, clubbing, or edema. are noted. LABORATORY AND DIAGNOSTIC DATA: Labs reviewed. Imaging reviewed. ASSESSMENT: The patient is a very unfortunate 78-year-old female with a history of diabetes, hypertension, hyperlipidemia, CVA, G-tube dependent, recurrent aspiration pneumonia, sacral decubitus ulcer, presenting with recurrent aspiration pneumonia and urinary tract infection. Utmost importance is addressing goals of care at this point. PROBLEM LIST: 1. Recurrent aspiration pneumonia. 2. Acute on chronic hypoxemic respiratory failure secondary to recurrent aspiration pneumonia. 3. Sepsis. 4. Encephalopathy. 5. CVA. 6. Electrolyte disturbance. 7. PEG tube status. 8. Diabetes. 9. Hypertension. 10. Hyperlipidemia. 11. Sacral decubitus ulcer. 12. Advanced dementia. 13. History of CAD. TREATMENT PLAN: 1. Optimize pulmonary hygiene/mobilize as tolerated. 2. Titrate down FiO2 to keep saturations greater than 90%. 3. Check an ABG. 4. Handheld nebulizers. 5. Antibiotics per ID. 6. Monitor volumes and renal function, agree with IV fluid hydration. 7. DVT prophylaxis, heparin subcutaneous. 8. Tube feeds as tolerated. 9. The patient is DNR/DNI, continue to discuss goals of care, consider hospice evaluation. Dr. Yates, thank you for allowing me to assist in the care of the patient. If I may be of any assistance in the future, please do not hesitate to ask Bimal Milner M.D. DR: Cata JOB#: [id number] CC:
--- NOTE | 2018-11-28 19:25 | NUR ---
OBTAINED REPORT FROM CY [facility]. PT IN BED RESTING COMFORTABLY.
--- NOTE | 2018-11-28 19:44 | NUR ---
HAND-OFF: Report given to FELIX Ramos.
[2018-11-28] MEDS: Atorvastatin 80mg tab GT SCH (20:21)
[2018-11-28] MEDS: Levemir Flexpen SUBQ SCH (20:26)
[2018-11-28] MEDS: Cefepime HCl 1 GM in D5W 55 ML IVPB SCH (22:02)
--- NOTE | 2018-11-28 23:00 | NUR ---
FULL REPORT GIVEN TO WALE WASHINGTON AND UPDATED ON PLAN OF CARE. PT RESTING IN BED COMFORTABLY FREE FROM APPARENT DISTRESS.
--- NOTE | 2018-11-28 23:15 | NUR ---
NURSE NOTES: Received patient from FELIX Ramos. Patient sleeping comfortably in bed, no signs of distress or pain noted. Patient is non-verbal and unable to make needs known. Patient using NRB mask with 6L and FiO2 of 35%. Glucerna 1.2 running at 55 mL/hr at goal, patient tolerating well. IV site checked, intact and patent, no signs of erythema, bleeding, or infiltration. Bed in lowest position, brakes on, siderails up x3, and call light within reach. Will continue with plan of care.
[2018-11-28] MEDS: Vancomycin 1 GM in D5W 275 ML IVPB SCH (23:38)
[2018-11-29] VITALS: BP 144/72
[2018-11-29] MEDS: LR 1000ml 1,000 ML IV SCH ×2 (01:40→13:32)
[2018-11-29] MEDS: Albuterol/Ipratropium 3ml neb HHN SCH ×5 (03:16→19:08)
[2018-11-29 04:00] VITALS: BP 122/64
[2018-11-29] MEDS: metroNIDAZOLE 500mg tab GT SCH ×3 (05:33→21:51)
[2018-11-29] MEDS: NovoLOG Insulin Flexpen SUBQ SCH ×3 (05:45→16:31)
[2018-11-29 07:16] LABS: BASOPHILS % (AUTO) 0.9 % (0.0-2.0); EOSINOPHILS % (AUTO) 0.8 % (0.0-3.0); LYMPHOCYTES % (AUTO) 19.6 % (20.0-45.0); MEAN CORPUSCULAR VOLUME 96 FL (80-99); MONOCYTES % (AUTO) 8.6 % (1.0-10.0); PLATELET COUNT 245 K/UL (150-450); RED BLOOD COUNT 2.82 M/UL (4.20-5.40); RED CELL DISTRIBUTION WIDTH 12.9 % (11.6-14.8); WHITE BLOOD COUNT 7.6 K/UL (4.8-10.8)
--- NOTE | 2018-11-29 07:26 | NUR ---
HAND-OFF: Report given to FELIX Germain. Plan of care endorsed.
[2018-11-29 07:33] LABS: ALANINE AMINOTRANSFERASE 21 U/L (12-78); ALBUMIN 1.9 G/DL (3.4-5.0); ALBUMIN/GLOBULIN RATIO 0.4 (1.0-2.7); ALKALINE PHOSPHATASE 67 U/L (46-116); ANION GAP 8 mmol/L (5-15); ASPARTATE AMINO TRANSFERASE 23 U/L (15-37); BILIRUBIN,TOTAL 0.3 MG/DL (0.2-1.0); BLOOD UREA NITROGEN 30 mg/dL (7-18); CALCIUM 9.2 MG/DL (8.5-10.1); CARBON DIOXIDE 31 MMOL/L (21-32); CHLORIDE 111 MMOL/L (98-107); CREATININE 0.6 MG/DL (0.55-1.30); POTASSIUM 3.5 MMOL/L (3.5-5.1); SODIUM 150 MMOL/L (136-145)
--- NOTE | 2018-11-29 07:49 | NUR ---
NURSE NOTES: Patient received from [facility]. Patient stable resting in bed. No s/sx of distress. RR even and unlabored on NRB. Feeding infusing at 55mL/hr. Fluids infusing. Nunez draining well to gravity. Will defer skin assessment at this time. Side rails up x2, bed low and locked. Sitter at bedside. Will continue to monitor.
[2018-11-29 08:00] VITALS: BP 143/84
[2018-11-29 08:11] LABS: PHOSPHORUS 3.3 MG/DL (2.5-4.9)
[2018-11-29] MEDS: Docusate 100mg/10ml Liq GT SCH ×2 (08:33→17:24)
[2018-11-29] MEDS: Aspirin Baby 81mg GT SCH (08:34)
[2018-11-29] MEDS: Zinc Sulfate 220mg cap GT SCH (08:34)
[2018-11-29] MEDS: Lactobacillus-GG tablet GT SCH (08:34)
[2018-11-29] MEDS: Metoprolol 25mg tab GT SCH ×2 (08:35→21:50)
[2018-11-29] MEDS: Heparin 5000 units/ml inj SUBQ SCH ×2 (08:36→21:56)
--- NOTE | 2018-11-29 10:27 | NUR ---
CASE MANAGEMENT: INITIAL REVIEW 11/29/18 SI: ACUTE/CHRONIC RESP. FAILURE; SEVERE SEPSIS; TOXIC ENCEPHALOPATHY 98.6 93 18 143/84 98 VENTURI MASK 6L; FiO2 35 NA+ 150; RBC 2.82; H/H 9.0/27.0; BUN 30; BG 248 IS: LEVAQUIN GT QD FLAGYL GT Q8HR IV VANCOMYCIN Q24HR IV CEFEPIME Q24HR IV LACTATED RINGER @75HR HEPARIN SQ Q12HR LOPRESSOR GT Q12HR LIPITOR GT HS ZINC SULFATE GT QD LEVEMIR SQ HS MUCOMYST HHN Q4/PRN NOVOLOG SQ TIAC ASA GT X1 CULTURELLE GT QD : 2E TELE DCP: [facility] TO [facility] PLAN: OBTAIN RESP INDUCED SPUTUM CX BL CX TITRATE DOWN FiO2 CHECK ABG Addendum: 11/29/18 at 1104 by DOMINGO ROWELL LVN CASE MANAGEMENT: REVIEW 11/29/18 SI: ACUTE/CHRONIC RESP. FAILURE; SEVERE SEPSIS; TOXIC ENCEPHALOPATHY 98.6 93 18 143/ 98 VENTURI MASK 6L; FiO2 35 NA+ 150; RBC 2.82; H/H 9.0/27.0; BUN 30; BG 248 IS: LEVAQUIN GT QD FLAGYL GT Q8HR IV VANCOMYCIN Q24HR IV CEFEPIME Q24HR IV LACTATED RINGER @75HR HEPARIN SQ Q12HR LOPRESSOR GT Q12HR LIPITOR GT HS ZINC SULFATE GT QD LEVEMIR SQ HS MUCOMYST HHN Q4/PRN NOVOLOG SQ TIAC ASA GT X1 CULTURELLE GT QD : 2E TELE DCP: [facility]URN TO [facility] PLAN: OBTAIN RESP INDUCED SPUTUM CX BL CX TITRATE DOWN FiO2 CHECK ABG
--- NOTE | 2018-11-29 10:44 | NUR ---
NURSE NOTES: Sputum cx collected. Pt changed to Rm 202-2 so she could be closer to nursing station. Addendum: 11/29/18 at 1246 by MILO PRIETO RN Patient also downgraded from NRB to 2L NC. Patient tolerating change. Addendum: 11/29/18 at 1516 by MILO PRITEO RN Patient downgraded from Venturi to NC not NRB.
--- NOTE | 2018-11-29 11:51 | Consultation ---
History of Present Illness General Date patient seen: Nov 29, 2018 Chief Complaint: Fever Present Illness HPI 78-year-old female with history of prior CVA, G-tube dependent with recurrent aspiration pneumonias and multiple medical problems who was last admitted 1 month ago with aspiration pneumonia and respiratory failure that presents from correction with fever, cough, congestion. T max 100.7, leukocytosis 12k, abnormal labs. Admitted for care and managements. Continues to have nutritional deficit and wounds requiring care. Surgery called to evaluate and assist with care. patient seen, chart reviewed, patient examined. Allergies: Coded Allergies: No Known Allergies (Unverified , 02/04/17) Medication History Scheduled Acetaminophen* (Acetaminophen 325MG Tablet*), 650 MG ORAL 0.5-1HR BEFORE TX, ( Reported) Acetylcysteine* (Acetylcysteine*), 100 MG HHN Q4H, (Reported) Ascorbic Acid* (Ascorbic Acid*), 500 MG GT DAILY, (Reported) Aspirin* (Aspirin*), 81 MG GT ONCE A DAY, (Reported) Atorvastatin Calcium* (Atorvastatin Calcium*), 40 MG GT BEDTIME, (Reported) Cefepime Hcl/Dextrose, Iso-Osm (Cefepime 1 Gm Injection), 1 GM IV DAILY Cran/Vitc/Mannose/Inulin/Brom (Uti-Stat Liquid), 30 ML GT DAILY, (Reported) Docusate Sodium* (Docusate Sodium*), 100 MG GT TWICE A DAY, (Reported) Ergocalciferol (Vitamin D2)* (Vitamin D*), 5,000 UNIT GT ONCE A WEEK, (Reported) Famotidine (Famotidine), 20 MG GT DAILY, (Reported) Fish Oil (Fish Oil 1,000 mg Capsule), 2,000 MG GT BID, (Reported) Fluconazole (Fluconazole), 100 MG ORAL DAILY Furosemide* (Lasix*), 20 MG GT DAILY Heparin Sod (Porcine) (Heparin Sodium*), 5,000 UNITS SUBQ EVERY 12 HOURS Insulin Aspart (Novolog Flexpen), 9 UNITS SUBQ NOVOTIAC Insulin Detemir (Levemir Flexpen), 30 UNITS SUBQ BEDTIME Lactobacillus Rhamnosus Gg* (Culturelle*), 1 CAP GT ONCE A DAY, (Reported) Metformin Hcl* (Metformin Hcl*), 500 MG GT TWICE A DAY, (Reported) Metoprolol Tartrate* (Metoprolol Tartrate*), 12.5 MG GT EVERY 12 HOURS, ( Reported) Metronidazole* (Flagyl*), 500 MG ORAL THREE TIMES A DAY Multivitamin Liquid* (Multi-Delyn*), 5 ML GT DAILY, (Reported) Vancomycin/Water For Inj (Vancomycin 1.5 Gram/300 ml Bag), 1 GM IV q24 Zinc Sulfate (Zinc Sulfate*), 220 MG GT DAILY, (Reported) Scheduled PRN Acetaminophen* (Acetaminophen*), 480 MG GT Q6H PRN for Mild Pain/Temp > 100.5, ( Reported) Bisacodyl (Bisacodyl), 10 MG RC DAILY PRN for Constipation, (Reported) Diphenhydramine Hcl* (Diphenhydramine Hcl*), 25 MG GT Q6H PRN for Itching, ( Reported) Ipratropium/Albuterol Sulfate (Iprat-Albut 0.5-3(2.5) Mg/3 Ml), 3 ML IH Q6HR PRN for Shortness of Breath, (Reported) Magnesium Hydroxide* (Milk Of Magnesia*), 30 ML GT DAILY PRN for Constipation, ( Reported) Na Phos,M-B/Na Phos,Di-Ba* (Fleet Enema*), 133 ML RECTAL DAILY PRN for Constipation, (Reported) Discontinued Medications Acetaminophen 160MG/5ML* (Acetaminophen*), 640 MG ORAL Q6H PRN for Pain Scale (5 -7), (Reported) Discontinued Reason: Therapy completed Ascorbic Acid* (Vitamin C*), 500 MG GT BID, (Reported) Discontinued Reason: Therapy completed Ciprofloxacin Hcl* (Ciprofloxacin Hcl*), 500 MG GT EVERY 12 HOURS Discontinued Reason: Therapy completed Cran/Vitc/Mannose/Inulin/Brom (Uti-Stat Liquid), 30 ML GT DAILY, (Reported) Discontinued Reason: Therapy completed Famotidine (Famotidine), 20 MG GT BID Discontinued Reason: Medication dose changed Hydrocodone Bit/Acetaminophen 5-325* ([place] 5-325*), 1 TAB ORAL Q6H PRN for For Pain, (Reported) Discontinued Reason: Therapy completed Ipratropium/Albuterol Sulfate (DuoNeb 0.5-3(2.5)mg/3ml), 3 ML HHN Q6HRT Discontinued Reason: Therapy completed Metoclopramide Hcl* (Metoclopramide Hcl*), 5 ML GT EVERY 6 HOURS PRN for Nausea & Vomiting, (Reported) Discontinued Reason: Therapy completed Metronidazole* (Flagyl*), 500 MG GT EVERY 8 HOURS Discontinued Reason: Therapy completed Na Phos,M-B/Na Phos,Di-Ba* (Fleet Enema*), 133 ML RECTAL DAILY PRN for Constipation, (Reported) Discontinued Reason: Therapy completed Ondansetron* (Zofran*), 4 MG GT Q6H PRN for Nausea & Vomiting, (Reported) Discontinued Reason: Therapy completed Ranitidine Hcl* (Zantac*), 150 MG GT DAILY, (Reported) Discontinued Reason: Therapy completed Vancomycin Hcl/D5w (Vancomycin-D5w 500 Mg/100 Ml), 500 MG IV Q12HR Discontinued Reason: Auto Discontinued [Vanco pharmacy to dose], 1 EA MISC DAILY PRN Discontinued Reason: Therapy completed Patient History Limited by: medical condition History Provided By: Medical Record, PMD Healthcare decision maker Resuscitation status Full Code Advanced Directive on File Past Medical/Surgical History Past Medical/Surgical History: (1) Septic shock (2) Sacral decubitus ulcer, stage IV (3) SOB (shortness of breath) (4) Respiratory failure with hypoxia and hypercapnia (5) Severe sepsis due to methicillin resistant Staphylococcus aureus (MRSA) with acute organ dysfunction (6) HCAP (healthcare-associated pneumonia) (7) Severe sepsis (8) Acute and chronic respiratory failure with hypoxia (9) G tube feedings (10) Electrolyte imbalance (11) Altered mental status (12) H/O: CVA (cerebrovascular accident) (13) Pneumonia (14) KEL (acute kidney injury) (15) Ventilator dependence (16) Endotracheally intubated (17) Hypokalemia (18) Hypercalcemia (19) Abscess (20) Rash (21) Hypernatremia (22) HTN (hypertension) (23) Elevated troponin (24) Encounter for PEG (percutaneous endoscopic gastrostomy) (25) MRSA infection (26) PNA (pneumonia) (27) Hyperglycemia due to type 2 diabetes mellitus (28) Upper sacral area unstageable pressure ulcer (29) Large ischemic R MCA stroke (30) Perineal area gertrudis rashes extending to left and right buttocks (31) UTI (urinary tract infection) (32) Right lateral malleolus stage I pressure ulcer (33) Respiratory failure (34) DM (diabetes mellitus) (35) Hypernatremia (36) Lactic acid acidosis (37) Toxic metabolic encephalopathy (38) Dehydration (39) Sepsis Review of Systems ROS Narrative cannot obtain given medical condition Physical Exam General Appearance: no apparent distress Lines, tubes and drains: peripheral HEENT: mucous membranes moist Neck: normal inspection Respiratory/Chest: no respiratory distress, no accessory muscle use, decreased breath sounds Cardiovascular/Chest: regular rhythm Abdomen: soft, no organomegaly, no mass Extremities: other Skin Exam: other Neurologic: alert Last 24 Hour Vital Signs Date Time Temp Pulse Resp B/P (MAP) Pulse Ox O2 Delivery O2 Flow Rate FiO2 11/29/18 10:44 98 Nasal Cannula 2.0 28 11/29/18 09:00 Non-Rebreather 6.0 11/29/18 09:00 6.0 35 11/29/18 08:35 93 143/84 11/29/18 08:00 93 18 143/84 (103) 96 11/29/18 08:00 92 11/29/18 06:58 97 Venturi Mask 6.0 35 11/29/18 06:58 88 18 100 Venturi Mask 6.0 35 89 18 97 11/29/18 04:00 98.6 89 18 122/64 (83) 98 11/29/18 04:00 83 11/29/18 04:00 6.0 35 11/29/18 03:22 79 18 99 Venturi Mask 6.0 35 78 18 99 11/29/18 00:00 83 11/29/18 00:00 6.0 35 11/29/18 00:00 98.4 91 20 144/72 (96) 99 11/28/18 23:34 87 18 100 Venturi Mask 6.0 35 86 18 98 11/28/18 20:56 6.0 35 11/28/18 20:55 98.6 96 20 140/90 (107) 97 11/28/18 20:22 81 149/90 11/28/18 20:00 96 11/28/18 20:00 Non-Rebreather 6.0 11/28/18 19:57 85 18 99 Venturi Mask 6.0 35 84 18 99 11/28/18 19:55 99 11/28/18 16:00 98.7 86 20 123/61 (81) 100 11/28/18 16:00 6.0 35 11/28/18 16:00 82 11/28/18 15:15 83 18 99 Venturi Mask 6.0 35 83 18 98 11/28/18 12:00 83 11/28/18 12:00 10.0 11/28/18 12:00 97.6 87 20 152/83 (106) 100 Intake and Output 11/28/18 11/29/18 18:59 06:59 Intake Total 1335 ml Output Total 500 ml 800 ml Balance -500 ml 535 ml Intake Free Water 200 ml IV Total 750 ml Tube Feeding 385 ml Output Urine Total 500 ml 800 ml # Bowel Movements 2 1 Laboratory Tests Test 11/29/18 06:12 White Blood Count 7.6 K/UL (4.8-10.8) Red Blood Count 2.82 M/UL (4.20-5.40) L Hemoglobin 9.0 G/DL (12.0-16.0) L Hematocrit 27.0 % (37.0-47.0) L Mean Corpuscular Volume 96 FL (80-99) Mean Corpuscular Hemoglobin 31.7 PG (27.0-31.0) H Mean Corpuscular Hemoglobin Concent 33.2 G/DL (32.0-36.0) Red Cell Distribution Width 12.9 % (11.6-14.8) Platelet Count 245 K/UL (150-450) Mean Platelet Volume 6.7 FL (6.5-10.1) Neutrophils (%) (Auto) 70.0 % (45.0-75.0) Lymphocytes (%) (Auto) 19.6 % (20.0-45.0) L Monocytes (%) (Auto) 8.6 % (1.0-10.0) Eosinophils (%) (Auto) 0.8 % (0.0-3.0) Basophils (%) (Auto) 0.9 % (0.0-2.0) Sodium Level 150 MMOL/L (136-145) H Potassium Level 3.5 MMOL/L (3.5-5.1) Chloride Level 111 MMOL/L (98-107) H Carbon Dioxide Level 31 MMOL/L (21-32) Anion Gap 8 mmol/L (5-15) Blood Urea Nitrogen 30 mg/dL (7-18) H Creatinine 0.6 MG/DL (0.55-1.30) Estimat Glomerular Filtration Rate mL/min (>60) Glucose Level 248 MG/DL (74-106) #H Calcium Level 9.2 MG/DL (8.5-10.1) Phosphorus Level 3.3 MG/DL (2.5-4.9) Magnesium Level 1.9 MG/DL (1.8-2.4) Total Bilirubin 0.3 MG/DL (0.2-1.0) Aspartate Amino Transf (AST/SGOT) 23 U/L (15-37) Alanine Aminotransferase (ALT/SGPT) 21 U/L (12-78) Alkaline Phosphatase 67 U/L (46-116) Total Protein 6.6 G/DL (6.4-8.2) Albumin 1.9 G/DL (3.4-5.0) L Globulin 4.7 g/dL Albumin/Globulin Ratio 0.4 (1.0-2.7) L Height (Feet): 5 Height (Inches): 0.00 Weight (Pounds): 124 Medications Current Medications Medications (Trade) Dose Ordered Sig/Wayne Route PRN Reason Start Time Stop Time Status Last Admin Dose Admin Acetaminophen (Tylenol) 480 mg Q6H PRN GT Mild Pain/Temp > 100.5 11/28/18 12:45 12/28/18 12:44 11/28/18 20:23 Acetylcysteine (Mucomyst) 100 mg Q4HRT [facility] 11/28/18 07:00 12/28/18 06:59 11/29/18 06:58 Albuterol/ Ipratropium (Albuterol/ Ipratropium) 3 ml Q4HRT [facility] 11/28/18 11:00 12/03/18 10:59 11/29/18 06:58 Aspirin (ASA) 81 mg DAILY GT 11/28/18 09:00 12/28/18 08:59 11/29/18 08:34 Atorvastatin Calcium (Lipitor) 40 mg BEDTIME GT 11/28/18 21:00 12/28/18 20:59 11/28/18 20:21 Bisacodyl (Dulcolax) 10 mg DAILY PRN RECTAL Constipation 11/28/18 05:15 12/28/18 05:14 Cefepime HCl 1 gm/ Dextrose 55 ml @ 110 mls/hr Q24H IVPB 11/28/18 22:00 12/05/18 21:59 11/28/18 22:02 Diphenhydramine HCl (Benadryl) 25 mg Q6H PRN GT Itching 11/28/18 05:15 12/28/18 05:14 Docusate Sodium (Colace) 100 mg TWICE A DAY GT 11/28/18 09:00 12/28/18 08:59 11/29/18 08:33 Famotidine (Pepcid) 20 mg BID GT 11/28/18 09:00 12/28/18 08:59 11/29/18 08:34 Heparin Sodium (Porcine) (Heparin 5000 units/ml) 5,000 units EVERY 12 HOURS SUBQ 11/28/18 09:00 12/28/18 08:59 11/29/18 08:36 Insulin Aspart (NovoLOG) 9 units NOVOTIAC SUBQ 11/28/18 06:30 12/28/18 06:29 11/29/18 05:45 Insulin Detemir (Levemir) 30 units BEDTIME SUBQ 11/28/18 21:00 12/28/18 20:59 11/28/18 20:26 Lactated Ringer's 1,000 ml @ 75 mls/hr [id number] IV 11/28/18 12:00 12/28/18 11:59 11/29/18 01:40 Lactobacillus Acidophilus (Culturelle) 1 tab DAILY GT 11/28/18 09:00 12/28/18 08:59 11/29/18 08:34 Levofloxacin (Levaquin) 250 mg DAILY GT 11/29/18 09:00 12/06/18 08:59 11/29/18 08:35 Magnesium Hydroxide (Mom) 30 ml DAILY PRN GT Constipation 11/28/18 05:15 12/28/18 05:14 Metoprolol Tartrate (Lopressor) 12.5 mg EVERY 12 HOURS GT 11/28/18 09:00 12/28/18 08:59 11/29/18 08:35 Metronidazole (Flagyl) 500 mg EVERY 8 HOURS GT 11/28/18 14:00 12/05/18 13:59 11/29/18 05:33 Vancomycin HCl (Vanco rx to dose) 1 ea DAILY PRN MISC VANCO 11/28/18 06:45 12/28/18 06:44 Vancomycin HCl 1 gm/Dextrose 275 ml @ 183.708 mls/hr Q24H IVPB 11/29/18 00:00 12/04/18 00:00 11/28/18 23:38 Zinc Sulfate (Zinc Sulfate) 220 mg DAILY GT 11/28/18 09:00 12/28/18 08:59 11/29/18 08:34 Assessment/Plan Problem List: (1) Protein-calorie malnutrition, moderate Assessment & Plan: DAILY ESTIMATED NEEDS: Needs based on Wound, DM, sepsis 56kg 25-30 kcals/kg 2463-4749 total kcals 1.25-2 g protein/kg 70-112 g total protein 25-30 mL/kg 6956-4376 total fluid mLs NUTRITION DIAGNOSIS: 1) Swallowing difficulty R/T dysphagia, CVA as evidenced by PEG dependent. 2) Increased kcal and pro needs r/t wound healing as evidenced by pt w/ previously stage 4 sacral and rt tibia wounds, pending new evaluation. CURRENT TF:Glucerna 1.2 @ 30ml/hr x 24 hrs -> INADEQUATE ENTERAL NUTRITION RECOMMENDATIONS: Glucerna 1.2 @ 55ml/hr x 24 hrs to provide 1320ml, 1584kcal, 79g prot, 1062ml free water - Rec to increase goal rate to 55ml/hr x 24 hrs : advance 10ml q 4-6 hrs as tolerated to goal. - HOB over 30 degrees - Without IVF, 120ml H20 flush q 6 hrs ADDITIONAL RECOMMENDATIONS: 1) Wound healing: Add Vit C 500mg QD : Add Gonsalo 1pkt BID 2) Monitor lytes daily, replete as needed 3) Calibrated bedscale wt ICD Codes: E44.0 - Moderate protein-calorie malnutrition SNOMED: 907822981 (2) Acute and chronic respiratory failure with hypoxia ICD Codes: J96.21 - Acute and chronic respiratory failure with hypoxia SNOMED: 53235236, 235729616 (3) Sacral decubitus ulcer, stage IV Assessment & Plan: Pt presented on admission with multiple pressure injuries. Full thickness wound distal eliezer R tibia. Wound has irregular borders. Base of wound has 100% firm,thick yellow slough. Marginal erythema along borders. No odor or exudate noted. Periwound without erythema or induration.(L)11cm x (W) 5cm. Sacral pressure injury wound bed is 100% necrotic and dry with surrounding black and slightly indurated borders. Wound measures (L)8cm x (W)7cm in entirety , Necrotic area is (L)4cm x (W)3.5cm. Mild odor noted from sacral wound. R heel pressure injury has an area that is serous filled(L01.2cm x (W)1.5cm with surrounding maroon discoloration with fluctuance.(L)4.3cm x (W)6.2cm. R heel pressure injury necrotic at medial aspect(L)4cm x (W)3.5cm, with surrounding maroon discoloration extending into plantar aspect of R heel (L)8cm x (W)7cm . Pt has Bilat foot drop. Small dry brown discoloration noted to L earlobe. No erythema noted. Tx.Plan: Cleanse sacral wound with saline. Apply Dakin's moist Gauze. Apply Moisture Barrier periwound. Cover with Optifoam drsg. Change Twice daily and prn. Swab R and L heels with Betadine. Cover each heel with Optifoam drsg. Change every 3 days and prn. Swab Wound R tibia with Betadine. Cover with Optifoam drsg. Change every 3 days and prn. APM/OLU Mattress overlay. Reposition at least every 2 hours or as tolerated. Off-load heels with pillow. ICD Codes: L89.154 - Pressure ulcer of sacral region, stage 4 SNOMED: 828847600, 150197997 (4) Electrolyte imbalance ICD Codes: E87.8 - Other disorders of electrolyte and fluid balance, not elsewhere classified SNOMED: 496759252 Akhil Jackson Nov 29, 2018 11:51
[2018-11-29 12:00] VITALS: BP 137/65
--- NOTE | 2018-11-29 12:01 | NUR ---
NURSE NOTES: Dressings changed with wound care nurse. Sacral is unstageable, Heels are both DTIs and Wound from RT luu appers to be an old wound that opened up. Pt repositioned.
--- NOTE | 2018-11-29 12:23 | NUR ---
NURSE NOTES:WOUND CARE NOTES:Pt presented on admission with multiple pressure injuries. Full thickness wound distal eliezer R tibia. Wound has irregular borders. Base of wound has 100% firm,thick yellow slough. Marginal erythema along borders. No odor or exudate noted. Periwound without erythema or induration.(L)11cm x (W)5cm. Sacral pressure injury wound bed is 100% necrotic and dry with surrounding black and slightly indurated borders. Wound measures (L)8cm x (W)7cm in entirety , Necrotic area is (L)4cm x (W)3.5cm. Mild odor noted from sacral wound. R heel pressure injury has an area that is serous filled(L01.2cm x (W)1.5cm with surrounding maroon discoloration with fluctuance.(L)4.3cm x (W)6.2cm. R heel pressure injury necrotic at medial aspect(L)4cm x (W)3.5cm, with surrounding maroon discoloration extending into plantar aspect of R heel (L)8cm x (W)7cm . Pt has Bilat foot drop. Small dry brown discoloration noted to L earlobe. No erythema noted. Tx.Plan:Cleanse sacral wound with saline. Apply Dakin's moist Gauze. Apply Moisture Barrier periwound. Cover with Optifoam drsg. Change Twice daily and prn. Swab R and L heels with Betadine. Cover each heel with Optifoam drsg. Change every 3 days and prn. Swab Wound R tibia with Betadine. Cover with Optifoam drsg. Change every 3 days and prn. APM/LOU Mattress overlay. Reposition at least every 2 hours or as tolerated. Off-load heels with pillow.
--- NOTE | 2018-11-29 14:04 | NUR ---
NURSE NOTES: Mattress overlay placed under patient.
--- NOTE | 2018-11-29 15:18 | General Progress Note ---
Assessment/Plan Problem List: (1) Acute and chronic respiratory failure with hypoxia ICD Codes: J96.21 - Acute and chronic respiratory failure with hypoxia SNOMED: 81285639, 017819857 (2) Severe sepsis ICD Codes: A41.9 - Sepsis, unspecified organism; R65.20 - Severe sepsis without septic shock SNOMED: 48814973 (3) Dehydration ICD Codes: E86.0 - Dehydration SNOMED: 82979687 (4) Toxic metabolic encephalopathy ICD Codes: G92 - Toxic encephalopathy SNOMED: 463440866 (5) Lactic acid acidosis ICD Codes: E87.2 - Acidosis SNOMED: 48855037 (6) Hypernatremia ICD Codes: E87.0 - Hyperosmolality and hypernatremia SNOMED: 591890929 (7) DM (diabetes mellitus) ICD Codes: E11.9 - Type 2 diabetes mellitus without complications SNOMED: 88679562 Status: stable Assessment/Plan: This is a 78-year-old female with a past medical history of diabetes mellitus type 2, hypertension, CVA, advanced dementia, dysphagia status post PEG tube, with a recent hospitalization for MRSA/Pseudomonas pneumonia, who presents with 1 day history of acute hypoxic respiratory failure and severe sepsis secondary to recurrent pneumonia. #Acute on chronic hypoxic respiratory failure secondary to HCAP - IMPROVING #Severe sepsis secondary to presumed HCAP (fever, tachycardia, elevated lactate ) - Resolved #Metabolic encephalopathy secondary to HCAP - Resolved, back to baseline #Lactic acidosis secondary to sepsis - Resolved > CXR: Retrocardiac consolidation and bilateral interstitial opacities. -Admit to telemetry -F/u Sputum culture -Blood cultures x2 - no growth to date -Appreciate infectious disease recommendations: Dr. Solis -Appreciate pulmonology recommendations: Dr. Milner -Titrate SPO2 to greater than 92% -Duo nebs and Mucomyst every 4 hours ATC -Pulmonary hygiene -Cefepime 1 g every 24 hours (11/27 - ) -Levaquin 250 mg NG daily (11/27 - ) -Flagyl 500 mg every 8 NG daily (11/27 - ) -Vancomycin per pharmacy (11/27 - ) #Hypernatremia. Free water deficit 1.8 L - IMproving -Lactated Ringer's at 50 cc an hour to correct hypovolemia -Free water flushes 200 cc every 4 hours -Trend BMP -Correction of sodium no more than 8M EQ #Diabetes mellitus type 2 -Levemir 30 units subcu nightly -NovoLog 9 units 3 times daily AC -Sliding scale insulin -Accu-Cheks before meals at bedtime #Sacral decubitus ulcer, present on admission -Appreciate wound care consult -Appreciate general surgery recommendations: Dr. Jackson -Zinc 220 mg NG daily #Advanced dementia, end stage #history of CVA #Goals of care -Spent 35 minutes today discussing goals of care with the patient's healthcare decision-maker Mr. Archibald (brother). Mr. Archibald would like to continue DNR/DNI. At this time does not want hospice. Would like to speak to the manager social responsibility more about hospice. -Social work consult for hospice percussion #HTN #History of CAD -Continue aspirin 81 mg p.o. daily Continue atorvastatin 40 mg p.o. nightly -Continue metoprolol 12.5 mg p.o. every 12 hours FENPPX DVTPPX: Heparin 5k units SBQ Q8h GI PPX: pepcid 20mg PO BID Fluids: LR as above Diet: Tube feeding Lines: none PT/OT: pending Dispo: Back to SNF vs. hospice once acute issues resolved 38 minutes spent on this encounter. Discussed with RN, infectious disease, pulmonology, and social work. > 50% spent on counseling and care coordination. An additional 35 minutes was spent discussing goals of care as per above. Time of note may not reflect time patient was seen. Subjective Date patient seen: Nov 29, 2018 ROS Limited/Unobtainable: Yes - Patient nonverbal at baseline Allergies: Coded Allergies: No Known Allergies (Unverified , 02/04/17) Subjective No acute events overnight per nursing. Pneumonia: Improving. Patient titrated down to 2 L nasal cannula. Vital signs stable. Further subjective history unable to be obtained as patient is nonverbal Hypernatremia: Improving to 150. Continuing with free water flushes. Objective Last 24 Hour Vital Signs Date Time Temp Pulse Resp B/P (MAP) Pulse Ox O2 Delivery O2 Flow Rate FiO2 11/29/18 14:13 80 18 100 Nasal Cannula 2.0 28 84 18 98 11/29/18 12:00 75 11/29/18 12:00 98.4 83 18 137/65 (89) 97 11/29/18 11:54 73 18 98 Nasal Cannula 2.0 28 74 18 95 11/29/18 10:44 98 Nasal Cannula 2.0 28 11/29/18 09:00 Venturi Mask 6.0 11/29/18 09:00 6.0 35 11/29/18 08:35 93 143/84 11/29/18 08:00 93 18 143/84 (103) 96 11/29/18 08:00 92 11/29/18 06:58 97 Venturi Mask 6.0 35 11/29/18 06:58 88 18 100 Venturi Mask 6.0 35 89 18 97 11/29/18 04:00 98.6 89 18 122/64 (83) 98 11/29/18 04:00 83 11/29/18 04:00 6.0 35 11/29/18 03:22 79 18 99 Venturi Mask 6.0 35 78 18 99 11/29/18 00:00 83 11/29/18 00:00 6.0 35 11/29/18 00:00 98.4 91 20 144/72 (96) 99 11/28/18 23:34 87 18 100 Venturi Mask 6.0 35 86 18 98 11/28/18 20:56 6.0 35 11/28/18 20:55 98.6 96 20 140/90 (107) 97 11/28/18 20:22 81 149/90 11/28/18 20:00 96 11/28/18 20:00 Non-Rebreather 6.0 11/28/18 19:57 85 18 99 Venturi Mask 6.0 35 84 18 99 11/28/18 19:55 99 11/28/18 16:00 98.7 86 20 123/61 (81) 100 11/28/18 16:00 6.0 35 11/28/18 16:00 82 11/28/18 15:15 83 18 99 Venturi Mask 6.0 35 83 18 98 Intake and Output 11/28/18 11/29/18 18:59 06:59 Intake Total 1335 ml Output Total 500 ml 800 ml Balance -500 ml 535 ml Intake Free Water 200 ml IV Total 750 ml Tube Feeding 385 ml Output Urine Total 500 ml 800 ml # Bowel Movements 2 1 Laboratory Tests 11/29/18 06:12: White Blood Count 7.6, Red Blood Count 2.82L, Hemoglobin 9.0L, Hematocrit 27.0L , Mean Corpuscular Volume 96, Mean Corpuscular Hemoglobin 31.7H, Mean Corpuscular Hemoglobin Concent 33.2, Red Cell Distribution Width 12.9, Platelet Count 245, Mean Platelet Volume 6.7, Neutrophils (%) (Auto) 70.0, Lymphocytes (% ) (Auto) 19.6L, Monocytes (%) (Auto) 8.6, Eosinophils (%) (Auto) 0.8, Basophils (%) (Auto) 0.9, Sodium Level 150H, Potassium Level 3.5, Chloride Level 111H, Carbon Dioxide Level 31, Anion Gap 8, Blood Urea Nitrogen 30H, Creatinine 0.6, Estimat Glomerular Filtration Rate , Glucose Level 248#H, Calcium Level 9.2, Phosphorus Level 3.3, Magnesium Level 1.9, Total Bilirubin 0.3, Aspartate Amino Transf (AST/SGOT) 23, Alanine Aminotransferase (ALT/SGPT) 21, Alkaline Phosphatase 67, Total Protein 6.6, Albumin 1.9L, Globulin 4.7, Albumin/Globulin Ratio 0.4L Height (Feet): 5 Height (Inches): 0.00 Weight (Pounds): 124 General Appearance: WD/WN, no apparent distress, alert, other - Alert and oriented x0 EENT: PERRL/EOMI, normal ENT inspection, TMs normal Neck: non-tender, normal alignment, supple Cardiovascular: normal peripheral pulses, normal rate, regular rhythm, no JVD Respiratory/Chest: chest wall non-tender, other - Slight coarse breath sounds bilaterally, no wheezes or rales Abdomen: normal bowel sounds, non tender, soft, other - PEG tube in place area is clean dry and intact Extremities: normal range of motion, non-tender Edema: other - No lower extremity edema bilaterally Neurologic: electric motor repairer II-XII grossly normal, no motor/sensory deficits, alert Skin: normal pigmentation, warm/dry Parviz Kwok D.O. Nov 29, 2018 15:18
[2018-11-29 16:00] VITALS: BP 125/61
--- NOTE | 2018-11-29 16:11 | Pulmonology Progress Note ---
Assessment/Plan Problems: (1) Sepsis (2) Dehydration (3) Toxic metabolic encephalopathy (4) Lactic acid acidosis (5) Hypernatremia (6) DM (diabetes mellitus) (7) Respiratory failure (8) Large ischemic R MCA stroke (9) PNA (pneumonia) (10) Protein-calorie malnutrition, moderate (11) G tube feedings (12) HCAP (healthcare-associated pneumonia) (13) Sacral decubitus ulcer, stage IV Assessment/Plan ASSESSMENT: The patient is a very unfortunate 78-year-old female with a history of diabetes, hypertension, hyperlipidemia, CVA, G-tube dependent, recurrent aspiration pneumonia, sacral decubitus ulcer, presenting with recurrent aspiration pneumonia and urinary tract infection. Utmost importance is addressing goals of care at this point. PROBLEM LIST: 1. Recurrent aspiration pneumonia. 2. Acute on chronic hypoxemic respiratory failure secondary to recurrent aspiration pneumonia. 3. Sepsis. 4. Encephalopathy. 5. CVA. 6. Electrolyte disturbance. 7. PEG tube status. 8. Diabetes. 9. Hypertension. 10. Hyperlipidemia. 11. Sacral decubitus ulcer. 12. Advanced dementia. 13. History of CAD. TREATMENT PLAN: 1. Optimize pulmonary hygiene/mobilize as tolerated. 2. Titrate down FiO2 to keep saturations greater than 90%. 3. HHN's 4. Abx per ID 5. F/U Cx's 6. Monitor volumes and renal function, replete free water 7. DVT prophylaxis, heparin subcutaneous. 8. Tube feeds as tolerated. 9. The patient is DNR/DNI, continue to discuss goals of care, family declines hospice @ this time Subjective Allergies: Coded Allergies: No Known Allergies (Unverified , 02/04/17) Subjective AFVSS on 2L Na 150 BS elevated No sig cough or secretions petty TF's Objective Last 24 Hour Vital Signs Date Time Temp Pulse Resp B/P (MAP) Pulse Ox O2 Delivery O2 Flow Rate FiO2 11/29/18 14:13 80 18 100 Nasal Cannula 2.0 28 84 18 98 11/29/18 12:00 75 11/29/18 12:00 98.4 83 18 137/65 (89) 97 11/29/18 11:54 73 18 98 Nasal Cannula 2.0 28 74 18 95 11/29/18 10:44 98 Nasal Cannula 2.0 28 11/29/18 09:00 Venturi Mask 6.0 11/29/18 09:00 6.0 35 11/29/18 08:35 93 143/84 11/29/18 08:00 93 18 143/84 (103) 96 11/29/18 08:00 92 11/29/18 06:58 97 Venturi Mask 6.0 35 11/29/18 06:58 88 18 100 Venturi Mask 6.0 35 89 18 97 11/29/18 04:00 98.6 89 18 122/64 (83) 98 11/29/18 04:00 83 11/29/18 04:00 6.0 35 11/29/18 03:22 79 18 99 Venturi Mask 6.0 35 78 18 99 11/29/18 00:00 83 11/29/18 00:00 6.0 35 11/29/18 00:00 98.4 91 20 144/72 (96) 99 11/28/18 23:34 87 18 100 Venturi Mask 6.0 35 86 18 98 11/28/18 20:56 6.0 35 11/28/18 20:55 98.6 96 20 140/90 (107) 97 11/28/18 20:22 81 149/90 11/28/18 20:00 96 11/28/18 20:00 Non-Rebreather 6.0 11/28/18 19:57 85 18 99 Venturi Mask 6.0 35 84 18 99 11/28/18 19:55 99 Intake and Output 11/28/18 11/29/18 19:00 07:00 Intake Total 1465 ml Output Total 500 ml 800 ml Balance -500 ml 665 ml Intake Free Water 200 ml IV Total 825 ml Tube Feeding 440 ml Output Urine Total 500 ml 800 ml # Bowel Movements 2 1 General Appearance: no acute distress, cachetic, other - non-verbal HEENT: normocephalic, atraumatic, anicteric, mucous membranes moist Respiratory/Chest: rhonchi Cardiovascular: normal peripheral pulses, normal rate, regular rhythm Abdomen: normal bowel sounds, soft, non tender, no organomegaly, non distended , no mass, other - GT Extremities: no cyanosis, no clubbing, no edema Microbiology Date/Time Source Procedure Growth Status 11/27/18 22:10 Blood Blood Culture - Preliminary NO GROWTH AFTER 24 HOURS Resulted 11/27/18 22:00 Blood Blood Culture - Preliminary NO GROWTH AFTER 24 HOURS Resulted 11/27/18 23:12 Urine,Clean Catch Urine Culture - Preliminary YEAST Resulted Laboratory Tests 11/29/18 06:12: White Blood Count 7.6, Red Blood Count 2.82L, Hemoglobin 9.0L, Hematocrit 27.0L , Mean Corpuscular Volume 96, Mean Corpuscular Hemoglobin 31.7H, Mean Corpuscular Hemoglobin Concent 33.2, Red Cell Distribution Width 12.9, Platelet Count 245, Mean Platelet Volume 6.7, Neutrophils (%) (Auto) 70.0, Lymphocytes (% ) (Auto) 19.6L, Monocytes (%) (Auto) 8.6, Eosinophils (%) (Auto) 0.8, Basophils (%) (Auto) 0.9, Sodium Level 150H, Potassium Level 3.5, Chloride Level 111H, Carbon Dioxide Level 31, Anion Gap 8, Blood Urea Nitrogen 30H, Creatinine 0.6, Estimat Glomerular Filtration Rate , Glucose Level 248#H, Calcium Level 9.2, Phosphorus Level 3.3, Magnesium Level 1.9, Total Bilirubin 0.3, Aspartate Amino Transf (AST/SGOT) 23, Alanine Aminotransferase (ALT/SGPT) 21, Alkaline Phosphatase 67, Total Protein 6.6, Albumin 1.9L, Globulin 4.7, Albumin/Globulin Ratio 0.4L Current Medications Medications (Trade) Dose Ordered Sig/Wayne Route PRN Reason Start Time Stop Time Status Last Admin Dose Admin Acetaminophen (Tylenol) 480 mg Q6H PRN GT Mild Pain/Temp > 100.5 11/28/18 12:45 12/28/18 12:44 11/28/18 20:23 Acetylcysteine (Mucomyst) 100 mg Q4HRT [facility] 11/28/18 07:00 12/28/18 06:59 11/29/18 14:13 Albuterol/ Ipratropium (Albuterol/ Ipratropium) 3 ml Q4HRT [facility] 11/28/18 11:00 12/03/18 10:59 11/29/18 14:13 Aspirin (ASA) 81 mg DAILY GT 11/28/18 09:00 12/28/18 08:59 11/29/18 08:34 Atorvastatin Calcium (Lipitor) 40 mg BEDTIME GT 11/28/18 21:00 12/28/18 20:59 11/28/18 20:21 Bisacodyl (Dulcolax) 10 mg DAILY PRN RECTAL Constipation 11/28/18 05:15 12/28/18 05:14 Cefepime HCl 1 gm/ Dextrose 55 ml @ 110 mls/hr Q24H IVPB 11/28/18 22:00 12/05/18 21:59 11/28/18 22:02 Diphenhydramine HCl (Benadryl) 25 mg Q6H PRN GT Itching 11/28/18 05:15 12/28/18 05:14 Docusate Sodium (Colace) 100 mg TWICE A DAY GT 11/28/18 09:00 12/28/18 08:59 11/29/18 08:33 Famotidine (Pepcid) 20 mg BID GT 11/28/18 09:00 12/28/18 08:59 11/29/18 08:34 Heparin Sodium (Porcine) (Heparin 5000 units/ml) 5,000 units EVERY 12 HOURS SUBQ 11/28/18 09:00 12/28/18 08:59 11/29/18 08:36 Insulin Aspart (NovoLOG) 9 units NOVOTIAC SUBQ 11/28/18 06:30 12/28/18 06:29 11/29/18 12:16 Insulin Detemir (Levemir) 30 units BEDTIME SUBQ 11/28/18 21:00 12/28/18 20:59 11/28/18 20:26 Lactated Ringer's 1,000 ml @ 75 mls/hr [id number] IV 11/28/18 12:00 12/28/18 11:59 11/29/18 13:32 Lactobacillus Acidophilus (Culturelle) 1 tab DAILY GT 11/28/18 09:00 12/28/18 08:59 11/29/18 08:34 Levofloxacin (Levaquin) 250 mg DAILY GT 11/29/18 09:00 12/06/18 08:59 11/29/18 08:35 Magnesium Hydroxide (Mom) 30 ml DAILY PRN GT Constipation 11/28/18 05:15 12/28/18 05:14 Metoprolol Tartrate (Lopressor) 12.5 mg EVERY 12 HOURS GT 11/28/18 09:00 12/28/18 08:59 11/29/18 08:35 Metronidazole (Flagyl) 500 mg EVERY 8 HOURS GT 11/28/18 14:00 12/05/18 13:59 11/29/18 13:32 Vancomycin HCl (Vanco rx to dose) 1 ea DAILY PRN MISC VANCO 11/28/18 06:45 12/28/18 06:44 Vancomycin HCl 1 gm/Dextrose 275 ml @ 183.708 mls/hr Q24H IVPB 11/29/18 00:00 12/04/18 00:00 11/28/18 23:38 Zinc Sulfate (Zinc Sulfate) 220 mg DAILY GT 11/28/18 09:00 12/28/18 08:59 11/29/18 08:34 Bimal Milner MD Nov 29, 2018 16:11
--- NOTE | 2018-11-29 18:47 | Infectious Diseases Prog Note ---
Assessment/Plan Assessment/Plan Full consult dictated: A) 1) sepsis, pna, leukocytosis, fevers, uti, ? fungal uti 2) pmh noted 3) allergies - nkda P) 1) vancomycin, cefepime, flagyl, diflucan for 5 days 2) check cultures, labs and chest x-ray 3) wound care per protocol 4) will f/u Subjective Allergies: Coded Allergies: No Known Allergies (Unverified , 02/04/17) Objective Vital Signs Last 24 Hour Vital Signs Date Time Temp Pulse Resp B/P (MAP) Pulse Ox O2 Delivery O2 Flow Rate FiO2 11/29/18 16:00 96 11/29/18 16:00 98.5 102 20 125/61 (82) 95 11/29/18 14:13 80 18 100 Nasal Cannula 2.0 28 84 18 98 11/29/18 12:00 75 11/29/18 12:00 98.4 83 18 137/65 (89) 97 11/29/18 11:54 73 18 98 Nasal Cannula 2.0 28 74 18 95 11/29/18 10:44 98 Nasal Cannula 2.0 28 11/29/18 09:00 Venturi Mask 6.0 11/29/18 09:00 6.0 35 11/29/18 08:35 93 143/84 11/29/18 08:00 93 18 143/84 (103) 96 11/29/18 08:00 92 11/29/18 06:58 97 Venturi Mask 6.0 35 11/29/18 06:58 88 18 100 Venturi Mask 6.0 35 89 18 97 11/29/18 04:00 98.6 89 18 122/64 (83) 98 11/29/18 04:00 83 11/29/18 04:00 6.0 35 11/29/18 03:22 79 18 99 Venturi Mask 6.0 35 78 18 99 11/29/18 00:00 83 11/29/18 00:00 6.0 35 11/29/18 00:00 98.4 91 20 144/72 (96) 99 11/28/18 23:34 87 18 100 Venturi Mask 6.0 35 86 18 98 11/28/18 20:56 6.0 35 11/28/18 20:55 98.6 96 20 140/90 (107) 97 11/28/18 20:22 81 149/90 11/28/18 20:00 96 11/28/18 20:00 Non-Rebreather 6.0 11/28/18 19:57 85 18 99 Venturi Mask 6.0 35 84 18 99 11/28/18 19:55 99 Height (Feet): 5 Height (Inches): 0.00 Weight (Pounds): 124 Microbiology Date/Time Source Procedure Growth Status 11/27/18 22:10 Blood Blood Culture - Preliminary NO GROWTH AFTER 24 HOURS Resulted 11/27/18 22:00 Blood Blood Culture - Preliminary NO GROWTH AFTER 24 HOURS Resulted 11/27/18 23:12 Urine,Clean Catch Urine Culture - Preliminary YEAST Resulted Laboratory Tests Test 11/29/18 06:12 White Blood Count 7.6 K/UL (4.8-10.8) Red Blood Count 2.82 M/UL (4.20-5.40) L Hemoglobin 9.0 G/DL (12.0-16.0) L Hematocrit 27.0 % (37.0-47.0) L Mean Corpuscular Volume 96 FL (80-99) Mean Corpuscular Hemoglobin 31.7 PG (27.0-31.0) H Mean Corpuscular Hemoglobin Concent 33.2 G/DL (32.0-36.0) Red Cell Distribution Width 12.9 % (11.6-14.8) Platelet Count 245 K/UL (150-450) Mean Platelet Volume 6.7 FL (6.5-10.1) Neutrophils (%) (Auto) 70.0 % (45.0-75.0) Lymphocytes (%) (Auto) 19.6 % (20.0-45.0) L Monocytes (%) (Auto) 8.6 % (1.0-10.0) Eosinophils (%) (Auto) 0.8 % (0.0-3.0) Basophils (%) (Auto) 0.9 % (0.0-2.0) Sodium Level 150 MMOL/L (136-145) H Potassium Level 3.5 MMOL/L (3.5-5.1) Chloride Level 111 MMOL/L (98-107) H Carbon Dioxide Level 31 MMOL/L (21-32) Anion Gap 8 mmol/L (5-15) Blood Urea Nitrogen 30 mg/dL (7-18) H Creatinine 0.6 MG/DL (0.55-1.30) Estimat Glomerular Filtration Rate mL/min (>60) Glucose Level 248 MG/DL (74-106) #H Calcium Level 9.2 MG/DL (8.5-10.1) Phosphorus Level 3.3 MG/DL (2.5-4.9) Magnesium Level 1.9 MG/DL (1.8-2.4) Total Bilirubin 0.3 MG/DL (0.2-1.0) Aspartate Amino Transf (AST/SGOT) 23 U/L (15-37) Alanine Aminotransferase (ALT/SGPT) 21 U/L (12-78) Alkaline Phosphatase 67 U/L (46-116) Total Protein 6.6 G/DL (6.4-8.2) Albumin 1.9 G/DL (3.4-5.0) L Globulin 4.7 g/dL Albumin/Globulin Ratio 0.4 (1.0-2.7) L Current Medications Medications (Trade) Dose Ordered Sig/Wayne Route PRN Reason Start Time Stop Time Status Last Admin Dose Admin Acetaminophen (Tylenol) 480 mg Q6H PRN GT Mild Pain/Temp > 100.5 11/28/18 12:45 12/28/18 12:44 11/28/18 20:23 Acetylcysteine (Mucomyst) 100 mg Q4HRT [facility] 11/28/18 07:00 12/28/18 06:59 11/29/18 14:13 Albuterol/ Ipratropium (Albuterol/ Ipratropium) 3 ml Q4HRT [facility] 11/28/18 11:00 12/03/18 10:59 11/29/18 14:13 Aspirin (ASA) 81 mg DAILY GT 11/28/18 09:00 12/28/18 08:59 11/29/18 08:34 Atorvastatin Calcium (Lipitor) 40 mg BEDTIME GT 11/28/18 21:00 12/28/18 20:59 11/28/18 20:21 Bisacodyl (Dulcolax) 10 mg DAILY PRN RECTAL Constipation 11/28/18 05:15 12/28/18 05:14 Cefepime HCl 1 gm/ Dextrose 55 ml @ 110 mls/hr Q24H IVPB 11/28/18 22:00 12/05/18 21:59 11/28/18 22:02 Diphenhydramine HCl (Benadryl) 25 mg Q6H PRN GT Itching 11/28/18 05:15 12/28/18 05:14 Docusate Sodium (Colace) 100 mg TWICE A DAY GT 11/28/18 09:00 12/28/18 08:59 11/29/18 17:24 Famotidine (Pepcid) 20 mg BID GT 11/28/18 09:00 12/28/18 08:59 11/29/18 17:24 Fluconazole (Diflucan) 100 mg DAILY ORAL 11/30/18 09:00 12/07/18 08:59 Heparin Sodium (Porcine) (Heparin 5000 units/ml) 5,000 units EVERY 12 HOURS SUBQ 11/28/18 09:00 12/28/18 08:59 11/29/18 08:36 Insulin Aspart (NovoLOG) 9 units NOVOTIAC SUBQ 11/28/18 06:30 12/28/18 06:29 11/29/18 16:31 Insulin Detemir (Levemir) 30 units BEDTIME SUBQ 11/28/18 21:00 12/28/18 20:59 11/28/18 20:26 Lactated Ringer's 1,000 ml @ 75 mls/hr [id number] IV 11/28/18 12:00 12/28/18 11:59 11/29/18 13:32 Lactobacillus Acidophilus (Culturelle) 1 tab DAILY GT 11/28/18 09:00 12/28/18 08:59 11/29/18 08:34 Magnesium Hydroxide (Mom) 30 ml DAILY PRN GT Constipation 11/28/18 05:15 12/28/18 05:14 Metoprolol Tartrate (Lopressor) 12.5 mg EVERY 12 HOURS GT 11/28/18 09:00 12/28/18 08:59 11/29/18 08:35 Metronidazole (Flagyl) 500 mg EVERY 8 HOURS GT 11/28/18 14:00 12/05/18 13:59 11/29/18 13:32 Vancomycin HCl (Vanco rx to dose) 1 ea DAILY PRN MISC VANCO 11/28/18 06:45 12/28/18 06:44 Vancomycin HCl 1 gm/Dextrose 275 ml @ 183.708 mls/hr Q24H IVPB 11/29/18 00:00 12/04/18 00:00 11/28/18 23:38 Zinc Sulfate (Zinc Sulfate) 220 mg DAILY GT 11/28/18 09:00 12/28/18 08:59 11/29/18 08:34 Milton Valladares MD Nov 29, 2018 18:47
--- NOTE | 2018-11-29 19:11 | NUR ---
HAND-OFF: Report given to Lara Nails RN. Patient stable.
--- NOTE | 2018-11-29 19:24 | NUR ---
NURSE NOTES: Received report from FELIX Germain. Patient is asleep lying semi-jacobs's; resting comfortably. Arousable to tactile stimuli. On 2L nasal cannula. AOx0; unable to make needs known. Aphasic. Checked IV site, lines, and IV rate; patent and running. No erythema, bleeding, or infiltration noted. G-tube in place. Glucerna 1.2 running at 55 mls/hr. Wound dressings dry and intact. On low air loss mattress for appropriate wound management. Nunez catheter draining well to gravity. Bed at lowest position, brakes on, siderails up x3. Call light within reach. Will continue to monitor.
[2018-11-29 20:00] VITALS: BP 120/69
[2018-11-29] MEDS ORDERED: ASCORBIC ACID500 MG GT (20:30)
[2018-11-29] MEDS ORDERED: ACETAMINOPHEN325 M1 ORAL (20:30)
[2018-11-29] MEDS ORDERED: FAMOTIDINE20 MG GT (20:30)
[2018-11-29] MEDS ORDERED: FLEET ENEMA133 ML RECTAL (20:30)
[2018-11-29] MEDS ORDERED: UTI-STAT L3875 MG/31 GT (20:30)
[2018-11-29] MEDS: Atorvastatin 80mg tab GT SCH (21:51)
[2018-11-29] MEDS: Levemir Flexpen SUBQ SCH (21:55)
[2018-11-29] MEDS: Cefepime HCl 1 GM in D5W 55 ML IVPB SCH (23:02)
--- NOTE | 2018-11-29 23:45 | Consultation ---
DATE OF CONSULTATION: 11/29/2018 INFECTIOUS DISEASE CONSULTATION CONSULTING PHYSICIAN: Milton Valladares M.D. ATTENDING PHYSICIAN: Yamileth Yates M.D. REFERRING PHYSICIAN: Parviz Kwok D.O. REASON FOR CONSULTATION: Pneumonia, sepsis, fevers, leukocytosis, and possible urinary tract infection. CHIEF COMPLAINT: The patient's chief complaint coming in to the hospital is sepsis and pneumonia. CLINICAL UPDATE: The patient is known me from multiple previous admissions. The patient now is septic with pneumonia and urinary tract infection. Infectious Disease consultation is requested. REVIEW OF SYSTEMS: CONSTITUTIONAL: The patient is poorly responsive. She has a Nunez. She has generalized weakness and fatigue. She is more alert today than yesterday when I saw her. She is less short of breath. She is still somewhat short of breath and congested. HEAD AND NECK: Limited. CARDIAC: No pressors. GASTROINTESTINAL: No nausea, vomiting, or diarrhea. GENITOURINARY: She has a Nunez. PULMONARY: Shortness of breath, cough, and congestion. No hemoptysis. SKIN: No new rash. EXTREMITY: Could not assess. NEUROLOGIC: No seizures. Generalized fatigue and weakness. She came in with fevers. No rash or seizure activity. Review of systems is otherwise limited. PAST MEDICAL HISTORY: The patient's past medical history includes the following. The patient has a past medical history of recurrent sepsis, pneumonia, and urinary tract infection. She has a history of acute renal failure with creatinine. Other past medical history is diabetes and hypertension. She has history of anemia, CVA, and aspiration risk. She has history of dysphagia, G-tube, benign neoplasm, dementia, encephalopathy, and history of lactic acidosis. MEDICATIONS: Noted. MAR was reviewed. ALLERGIES: No known drug allergies. SOCIAL HISTORY: Negative. FAMILY HISTORY: Noncontributory. PHYSICAL EXAMINATION: VITAL SIGNS: Temperature is 98.5, pulse rate 102, respiratory rate 20, it was as high as 24 on admission, and blood pressure 125/61. Temperature has been as high as 100.7 and heart rate has been as high as 102. GENERAL: Lethargic and weak. Opens eyes more today. More alert today. HEAD AND NECK: Oral exam, no thrush. Eye exam, no icterus. Normocephalic. Neck is supple. No JVD. Normocephalic. No icterus or thrush. HEART: Regular. No gallop or murmur. No friction rub. ABDOMEN: Soft. Positive bowel sounds. Nontender. LUNGS: Bilateral rhonchi and rales. SKIN: No rash. MUSCULOSKELETAL: No effusion. Legs without cellulitis. PERIPHERAL VASCULAR: No cyanosis or gangrene. GENITOURINARY: She has a Nunez. Urine is cloudy. LINE SITES: Without phlebitis. NEUROLOGIC: Responsive. More alert today. Wounds were reviewed. Sacral wound was noted. Some slough noted. LABORATORY DATA: White count 7.6 and hemoglobin 9. White count was as high as 12.1. Creatinine is 0.6. LFTs were noted. Urinalysis, 3+ leukocyte esterase and many bacteria and yeast. Urine culture so far with yeast. Blood cultures negative to date. IMAGING STUDIES: Chest x-ray shows a retrocardiac consolidation and opacities. IMAGING STUDIES: Chest x-ray showed retrocardiac opacity and consolidation and right-sided atelectasis. Sputum culture is pending. Other cultures are pending. So far, blood cultures negative and urine culture with yeast. ASSESSMENT AND PLAN: 1. The patient has likely sepsis with SIRS criteria. The patient had fevers, tachycardia, elevated respiratory rate, and leukocytosis. Her workup shows that she has a consolidation and most likely this is an aspiration healthcare-acquired pneumonia and much less likely community-acquired pneumonia. She is at high risk for aspiration and healthcare-acquired pneumonia. Her lactic acid also was 3.4 on admission. She also could have urinary tract infection. Urine culture with yeast. At this time, continue vancomycin, cefepime, and Flagyl to cover for MRSA gram-negative anaerobes for healthcare-acquired pneumonia and aspiration pneumonia. Continue vancomycin, cefepime, and Flagyl for sepsis, aspiration, and healthcare-acquired pneumonia and also for possible urinary tract infection. Often a fungal urine culture is contaminant. However, in view of her sepsis status, I would give her 5 days of Diflucan to cover from the fungal urinary tract infection and also prevent invasive candidemia, especially in the patient, who has been with recurrent infections and long-term antibiotics. Check followup laboratories and chest x-ray. Monitor sepsis status. Continue vancomycin, cefepime, and Flagyl for pneumonia, sepsis, urinary tract infection for now pending final workup. Again, Diflucan x5 more days. 2. Pulmonary treatment per Pulmonary Medicine. 3. Skin care protocol. Sacral wound was noted. There is some slough, but most probably local wound care is important. She is on vancomycin, cefepime, and Flagyl. 4. The patient has history of diabetes. 5. Hypertension. 6. Blood sugar and blood pressure treatment for diabetes and hypertension per primary. 7. Anemia. 8. History of renal failure. 9. CVA. 10. Aspiration risk. 11. Dysphagia. 12. G-tube. 13. Benign neoplasm. 14. Encephalopathy and dementia. 15. Continue treatment per primary consultants. 16. No known allergies. 17. Social history is negative. 18. Family history is noncontributory. 19. MAR is noted. 20. Case was discussed with RN. Thank you for this consultation. I will follow with you. Milton Valladares M.D. DR: JULIEN JOB#: [id number] CC:
[2018-11-30] VITALS: BP 132/68
[2018-11-30] MEDS: Albuterol/Ipratropium 3ml neb HHN SCH ×5 (00:12→14:49)
[2018-11-30] MEDS: LR 1000ml 1,000 ML IV SCH ×2 (00:14→17:20)
[2018-11-30] MEDS: Vancomycin 1 GM in D5W 275 ML IVPB SCH (00:15)
[2018-11-30 04:00] VITALS: BP 109/67
--- NOTE | 2018-11-30 04:04 | NUR ---
NURSE NOTES: Patient is asleep lying semi-jacobs's; resting comfortably. No signs of acute distress or pain noted at this time. On 2L nasal cannula. Glucerna 1.5 running at 55 mls/hr. Nunez catheter draining well to gravity.
[2018-11-30] MEDS: metroNIDAZOLE 500mg tab GT SCH ×2 (06:40→13:45)
[2018-11-30] MEDS: NovoLOG Insulin Flexpen SUBQ SCH ×5 (06:40→17:02)
--- NOTE | 2018-11-30 07:10 | NUR ---
HAND-OFF: Report given to FELIX Germain. Patient is asleep lying semi-jacobs's; resting comfortably. On 2L nasal cannula. Glucerna 1.2 running @ 55 mls/hr. Nunez catheter draining well to gravity. In stable condition.
--- NOTE | 2018-11-30 07:17 | NUR ---
NURSE NOTES: Patient received from Lara Bui RN. Patient stable AOx0 RR even and unlabored on 2L NC. Fluids infusing, Glucerna 1.2 going at 55mL/hr, Nunez draining well to gravity. Patient repositioned at 6am. Will defer skin assessment until 8am turn. Bed low and locked, side rails up x2. Will continue to monitor.
[2018-11-30 07:22] LABS: BASOPHILS % (AUTO) 0.8 % (0.0-2.0); EOSINOPHILS % (AUTO) 1.9 % (0.0-3.0); HEMATOCRIT 25.6 % (37.0-47.0); HEMOGLOBIN 8.4 G/DL (12.0-16.0); LYMPHOCYTES % (AUTO) 23.3 % (20.0-45.0); MEAN CORPUSCULAR VOLUME 95 FL (80-99); MONOCYTES % (AUTO) 9.3 % (1.0-10.0); NEUTROPHILS % (AUTO) 64.7 % (45.0-75.0); PLATELET COUNT 222 K/UL (150-450); RED BLOOD COUNT 2.69 M/UL (4.20-5.40); RED CELL DISTRIBUTION WIDTH 13.1 % (11.6-14.8); WHITE BLOOD COUNT 7.1 K/UL (4.8-10.8)
--- NOTE | 2018-11-30 07:31 | NUR ---
RESPIRATORY NOTE: Able to scan breathing tx Duoneb but unable to scan Mucomyst. Tried scan with 2 other scanners but still unable to scan. RT Jake witnessed treatment given and manual administered Mucomyst to eMar.
--- NOTE | 2018-11-30 07:31 | NUR ---
RESPIRATORY NOTE: Able to scan breathing Tx Duoneb but not Mucomyst. Tried 2 other scanners but still unable to scan bar code from Mucomyst. RT Jake witnessed treatment given. Manually administered MM 12
[2018-11-30 07:32] LABS: ALANINE AMINOTRANSFERASE 16 U/L (12-78); ALBUMIN 1.8 G/DL (3.4-5.0); ALBUMIN/GLOBULIN RATIO 0.4 (1.0-2.7); ALKALINE PHOSPHATASE 63 U/L (46-116); ANION GAP 7 mmol/L (5-15); ASPARTATE AMINO TRANSFERASE 19 U/L (15-37); BILIRUBIN,TOTAL 0.3 MG/DL (0.2-1.0); BLOOD UREA NITROGEN 28 mg/dL (7-18); CALCIUM 8.9 MG/DL (8.5-10.1); CARBON DIOXIDE 32 MMOL/L (21-32); CHLORIDE 107 MMOL/L (98-107); CREATININE 0.6 MG/DL (0.55-1.30); POTASSIUM 3.4 MMOL/L (3.5-5.1); SODIUM 146 MMOL/L (136-145)
[2018-11-30 08:00] VITALS: BP 142/67
--- NOTE | 2018-11-30 08:26 | NUR ---
CASE MANAGEMENT: REVIEW 11/30/18 SI: ACUTE/CHRONIC RESP. FAILURE; SEVERE SEPSIS; TOXIC ENCEPHALOPATHY 98.6 78 20 106/67 99 NC 2L RBC 2.69; H/H 8.4/25.6; BUN 28; BG 276 IS: DIFLUCAN PO QD IV VANCOMYCIN Q24HR IV CEFEPIME Q24HR FLAGYL GT Q8HR IV LACTATED RINGER @75HR HEPARIN SQ Q12HR LOPRESSOR GT Q12HR LIPITOR GT HS ZINC SULFATE GT QD LEVEMIR SQ HS MUCOMYST HHN Q4/PRN NOVOLOG SQ TIAC ASA GT QD CULTURELLE GT QD : 2E TELE DCP: RETURN TO [facility] PLAN: SPUTUM CX PENDING BL CX PENDING
--- NOTE | 2018-11-30 08:41 | NUR ---
RADIOLOGY DEPT/. CJEST X-RAY DONE.-P.DYE
[2018-11-30] MEDS ORDERED: Fluconazole 100mg tab ORAL SCH (09:00)
[2018-11-30] MEDS: Aspirin Baby 81mg GT SCH (09:05)
[2018-11-30] MEDS: Docusate 100mg/10ml Liq GT SCH ×2 (09:06→18:00)
[2018-11-30] MEDS: Lactobacillus-GG tablet GT SCH (09:06)
[2018-11-30] MEDS: Zinc Sulfate 220mg cap GT SCH (09:06)
[2018-11-30] MEDS: Metoprolol 25mg tab GT SCH (09:06)
[2018-11-30] MEDS: Heparin 5000 units/ml inj SUBQ SCH (09:08)
--- NOTE | 2018-11-30 10:02 | NUR ---
NURSE NOTES: Spoke with Dr. Solis regarding patient being positive for VRE of the rectum. Per physician no new orders. Unable to contact Dr. Yates.
--- NOTE | 2018-11-30 10:42 | NUR ---
RD ASSESSMENT & RECOMMENDATIONS SEE CARE ACTIVITY FOR COMPLETE ASSESSMENT DAILY ESTIMATED NEEDS: Needs based on Wound, DM, sepsis 56kg 25-30 kcals/kg 5723-8128 total kcals 1.25-2 g protein/kg 70-112 g total protein 25-30 mL/kg 7123-8400 total fluid mLs NUTRITION DIAGNOSIS: 1) Swallowing difficulty R/T dysphagia, CVA as evidenced by PEG dependent. 2) Increased kcal and pro needs r/t wound healing as evidenced by pt admitted w/stage 4 sacral wound. CURRENT TF:Glucerna 1.2 @ 55ml/hr x 24 hrs + Gonsalo 1pkt BID ENTERAL NUTRITION RECOMMENDATIONS: Glucerna 1.2 @ 55ml/hr x 24 hrs to provide 1320ml, 1584kcal, 79g prot, 1062ml free water - HOB over 30 degrees - Without IVF, 120ml H20 flush q 6 hrs -----WITH CONTINUED ELEV BG'S: -> LOWER TF to 50ml/hr x 24 hrs + add Prosource 1pkt QD to provide 1200ml, 1440kcal, 72 +11g prot, 966ml free water ADDITIONAL RECOMMENDATIONS: 1) Wound healing: Add Vit C 500mg QD : continue Gonsalo 1pkt BID 2) Increase Levemir for improved BG control 3) Monitor BGs closely -> w/ continued elev BGs, LOWER TF rate see above TF rec 4) Monitor lytes daily, replete as needed 5) Calibrated bedscale wt
--- NOTE | 2018-11-30 10:54 | Diagnostic Imaging Report ---
Indication: Shortness of breath Technique: XRAY Chest 1v Comparison: 11/27/2018 Findings: Heart size and mediastinal contours are stable. Atherosclerotic calcifications again noted in the aorta. There is worsening aeration with increased interstitial opacification. Bibasilar airspace opacities also increased. There is a small left pleural effusion. No radiographically appreciable pneumothorax. Osseous structures stable. Impression: Worsening aeration with increased interstitial opacification/edema and increased bibasilar opacities, left greater than right. Findings may be related to worsening edema and/or infection. Clinical correlation and follow-up recommended.
[2018-11-30 12:00] VITALS: BP 158/78
--- NOTE | 2018-11-30 12:21 | NUR ---
NURSE NOTES: Patient had BM. Stool sample collected for CDIFF. All dressings changed. Addendum: 11/30/18 at 1226 by MILO PRIETO RN CDiff not needed due to patient being on stool softeners.
[2018-11-30] MEDS ORDERED: VANCOMYCIN1.5 GM/300 IV (13:41)
[2018-11-30] MEDS ORDERED: CEFEPIME 11 GM/50 ML IV (13:43)
[2018-11-30] MEDS ORDERED: METRONIDAZOLE500 MG ORAL (13:43)
[2018-11-30] MEDS ORDERED: FLUCONAZOLE150 MG ORAL (13:43)
--- NOTE | 2018-11-30 13:45 | Discharge Instructions ---
Discharge Instructions Discharge Instructions Special Instructions Continue Vanc, Cefepime, Flagyl, and Fluconazole for 4 more days No hospice for now Give free water flushes 250cc every 6 hours to maintain normal sodium For Congestive Heart Failure Reminder Report to your physician any weight gain of 5 pounds or more in one week. Parviz Kwok D.O. Nov 30, 2018 13:45
--- NOTE | 2018-11-30 14:41 | Pulmonology Progress Note ---
Assessment/Plan Problems: (1) Sepsis (2) Dehydration (3) Toxic metabolic encephalopathy (4) Lactic acid acidosis (5) Hypernatremia (6) DM (diabetes mellitus) (7) Respiratory failure (8) Large ischemic R MCA stroke (9) PNA (pneumonia) (10) Protein-calorie malnutrition, moderate (11) G tube feedings (12) HCAP (healthcare-associated pneumonia) (13) Sacral decubitus ulcer, stage IV Assessment/Plan ASSESSMENT: The patient is a very unfortunate 78-year-old female with a history of diabetes, hypertension, hyperlipidemia, CVA, G-tube dependent, recurrent aspiration pneumonia, sacral decubitus ulcer, presenting with recurrent aspiration pneumonia and urinary tract infection. Utmost importance is addressing goals of care at this point. PROBLEM LIST: 1. Recurrent aspiration pneumonia. 2. Acute on chronic hypoxemic respiratory failure secondary to recurrent aspiration pneumonia. 3. Sepsis. 4. Encephalopathy. 5. CVA. 6. Electrolyte disturbance. 7. PEG tube status. 8. Diabetes. 9. Hypertension. 10. Hyperlipidemia. 11. Sacral decubitus ulcer. 12. Advanced dementia. 13. History of CAD. TREATMENT PLAN: 1. Optimize pulmonary hygiene/mobilize as tolerated. 2. Titrate down FiO2 to keep saturations greater than 90%. 3. HHN's 4. Abx per ID 5. F/U Cx's 6. Monitor volumes and renal function, replete free water 7. DVT prophylaxis, heparin subcutaneous. 8. Tube feeds as tolerated. 9. The patient is DNR/DNI, continue to discuss goals of care, family declines hospice @ this time Subjective Allergies: Coded Allergies: No Known Allergies (Unverified , 02/04/17) Subjective AFVSS on 2L Na better No sig cough or secretions petty TF's Objective Last 24 Hour Vital Signs Date Time Temp Pulse Resp B/P (MAP) Pulse Ox O2 Delivery O2 Flow Rate FiO2 11/30/18 12:00 97.4 73 18 158/78 (104) 98 11/30/18 12:00 72 11/30/18 11:21 75 18 100 Nasal Cannula 2.0 28 74 18 100 11/30/18 09:06 80 142/67 11/30/18 09:00 Nasal Cannula 2.0 11/30/18 08:00 79 11/30/18 08:00 98.5 80 20 142/67 (92) 97 11/30/18 07:46 78 17 100 Nasal Cannula 2.0 28 77 20 99 11/30/18 07:30 99 Nasal Cannula 2.0 28 11/30/18 04:00 85 11/30/18 04:00 98.6 86 20 109/67 (81) 100 11/30/18 03:40 76 18 99 Nasal Cannula 2.0 28 74 18 95 11/30/18 00:12 85 18 100 Nasal Cannula 2.0 28 83 18 96 11/30/18 00:00 77 11/30/18 00:00 98.4 81 18 132/68 (89) 100 11/29/18 21:50 101 120/69 11/29/18 21:00 Nasal Cannula 2.0 11/29/18 20:00 98.4 101 20 120/69 (86) 100 11/29/18 20:00 93 11/29/18 19:11 97 Nasal Cannula 2.0 28 11/29/18 19:09 94 18 100 Nasal Cannula 2.0 28 91 18 97 11/29/18 16:00 96 11/29/18 16:00 98.5 102 20 125/61 (82) 95 Intake and Output 11/29/18 11/30/18 18:59 06:59 Intake Total 2085 ml 2322 ml Output Total 900 ml 800 ml Balance 1185 ml 1522 ml Intake Free Water 750 ml 600 ml IV Total 675 ml 1062 ml Tube Feeding 660 ml 660 ml Output Urine Total 900 ml 800 ml # Bowel Movements 1 General Appearance: no acute distress, cachetic HEENT: normocephalic, atraumatic, anicteric, mucous membranes moist Respiratory/Chest: rhonchi Cardiovascular: normal peripheral pulses, normal rate, regular rhythm Abdomen: normal bowel sounds, soft, non tender, no organomegaly, non distended , no mass, other - GT Extremities: no cyanosis, no clubbing, no edema Microbiology Date/Time Source Procedure Growth Status 11/27/18 22:10 Blood Blood Culture - Preliminary NO GROWTH AFTER 48 HOURS Resulted 11/27/18 22:00 Blood Blood Culture - Preliminary NO GROWTH AFTER 48 HOURS Resulted 11/29/18 10:37 Sputum Induced Gram Stain - Final Resulted 11/29/18 10:37 Sputum Induced Sputum Culture Pending Resulted 11/27/18 23:35 Nasal Nares MRSA Culture - Final Staphylococcus Aureus - Mrsa Complete 11/27/18 23:12 Urine,Clean Catch Urine Culture - Final Nandini Tropicalis Complete 11/27/18 23:35 Rectum - Final NO CARBAPENEM-RESISTANT ENTEROBACTERI... Complete 11/27/18 23:35 Rectum VRE Culture - Final Enterococcus Faecalis - Vre Complete Laboratory Tests 11/30/18 05:16: White Blood Count 7.1, Red Blood Count 2.69L, Hemoglobin 8.4L, Hematocrit 25.6L , Mean Corpuscular Volume 95, Mean Corpuscular Hemoglobin 31.2H, Mean Corpuscular Hemoglobin Concent 32.8, Red Cell Distribution Width 13.1, Platelet Count 222, Mean Platelet Volume 6.5, Neutrophils (%) (Auto) 64.7, Lymphocytes (% ) (Auto) 23.3, Monocytes (%) (Auto) 9.3, Eosinophils (%) (Auto) 1.9, Basophils ( %) (Auto) 0.8, Erythrocyte Sedimentation Rate 132H, Sodium Level 146H, Potassium Level 3.4L, Chloride Level 107, Carbon Dioxide Level 32, Anion Gap 7, Blood Urea Nitrogen 28H, Creatinine 0.6, Estimat Glomerular Filtration Rate , Glucose Level 276H, Calcium Level 8.9, Total Bilirubin 0.3, Aspartate Amino Transf (AST/SGOT) 19, Alanine Aminotransferase (ALT/SGPT) 16, Alkaline Phosphatase 63, C-Reactive Protein, Quantitative 1.7H, Total Protein 6.2L, Albumin 1.8L, Globulin 4.4, Albumin/Globulin Ratio 0.4L Current Medications Medications (Trade) Dose Ordered Sig/Wayne Route PRN Reason Start Time Stop Time Status Last Admin Dose Admin Acetaminophen (Tylenol) 480 mg Q6H PRN GT Mild Pain/Temp > 100.5 11/28/18 12:45 12/28/18 12:44 11/28/18 20:23 Acetylcysteine (Mucomyst) 100 mg Q4HRT [facility] 11/28/18 07:00 12/28/18 06:59 11/30/18 11:05 Albuterol/ Ipratropium (Albuterol/ Ipratropium) 3 ml Q4HRT [facility] 11/28/18 11:00 12/03/18 10:59 11/30/18 11:05 Aspirin (ASA) 81 mg DAILY GT 11/28/18 09:00 12/28/18 08:59 11/30/18 09:05 Atorvastatin Calcium (Lipitor) 40 mg BEDTIME GT 11/28/18 21:00 12/28/18 20:59 11/29/18 21:51 Bisacodyl (Dulcolax) 10 mg DAILY PRN RECTAL Constipation 11/28/18 05:15 12/28/18 05:14 Cefepime HCl 1 gm/ Dextrose 55 ml @ 110 mls/hr Q24H IVPB 11/28/18 22:00 12/05/18 21:59 11/29/18 23:02 Dextrose (Dextrose 50%) 25 ml Q30M PRN IV Hypoglycemia 11/30/18 08:30 12/30/18 08:29 Dextrose (Dextrose 50%) 50 ml Q30M PRN IV Hypoglycemia 11/30/18 08:30 12/30/18 08:29 Diphenhydramine HCl (Benadryl) 25 mg Q6H PRN GT Itching 11/28/18 05:15 12/28/18 05:14 Docusate Sodium (Colace) 100 mg TWICE A DAY GT 11/28/18 09:00 12/28/18 08:59 11/30/18 09:06 Famotidine (Pepcid) 20 mg BID GT 11/28/18 09:00 12/28/18 08:59 11/30/18 09:05 Fluconazole (Diflucan) 100 mg DAILY ORAL 11/30/18 09:00 12/07/18 08:59 11/30/18 09:06 Heparin Sodium (Porcine) (Heparin 5000 units/ml) 5,000 units EVERY 12 HOURS SUBQ 11/28/18 09:00 12/28/18 08:59 11/30/18 09:08 Insulin Aspart (NovoLOG) BEFORE MEALS AND HS SUBQ 11/30/18 11:30 12/30/18 11:29 11/30/18 12:34 Insulin Aspart (NovoLOG) 9 units NOVOTIAC SUBQ 11/28/18 06:30 12/28/18 06:29 11/30/18 12:34 Insulin Detemir (Levemir) 30 units BEDTIME SUBQ 11/28/18 21:00 12/28/18 20:59 11/29/18 21:55 Lactated Ringer's 1,000 ml @ 75 mls/hr [id number] IV 11/28/18 12:00 12/28/18 11:59 11/30/18 00:14 Lactobacillus Acidophilus (Culturelle) 1 tab DAILY GT 11/28/18 09:00 12/28/18 08:59 11/30/18 09:06 Magnesium Hydroxide (Mom) 30 ml DAILY PRN GT Constipation 11/28/18 05:15 12/28/18 05:14 Metoprolol Tartrate (Lopressor) 12.5 mg EVERY 12 HOURS GT 11/28/18 09:00 12/28/18 08:59 11/30/18 09:06 Metronidazole (Flagyl) 500 mg EVERY 8 HOURS GT 11/28/18 14:00 12/05/18 13:59 11/30/18 13:45 Vancomycin HCl (Vanco rx to dose) 1 ea DAILY PRN MISC VANCO 11/28/18 06:45 12/28/18 06:44 Vancomycin HCl 1 gm/Dextrose 275 ml @ 183.708 mls/hr Q24H IVPB 11/29/18 00:00 12/04/18 00:00 11/30/18 00:15 Zinc Sulfate (Zinc Sulfate) 220 mg DAILY GT 11/28/18 09:00 12/28/18 08:59 11/30/18 09:06 Bimal Milner MD Nov 30, 2018 14:41
--- NOTE | 2018-11-30 15:29 | NUR ---
DISCHARGE PLANNED: DISCUSSED DISCHARGE WITH MD PATIENT TO DISCHARGE BACK TO [facility] T: [phone] FOR NURSE TO NURSE REPORT CLINICALS FAXED AND RECEIVED BY FACILITY ROOM [facility]A [facility] CALLED COLLATOR TIME 1830 Addendum: 11/30/18 at 1533 by DOMINGO ROWELL LVN COLLATOR TIME BETWEEN 1630- 1700
--- NOTE | 2018-11-30 15:37 | Surgery Progress Note ---
Surgery Progress Note Subjective Additional Comments labs improved exam stable dressings changed comfortable d/c planning Objective Last 24 Hour Vital Signs Date Time Temp Pulse Resp B/P (MAP) Pulse Ox O2 Delivery O2 Flow Rate FiO2 11/30/18 15:05 72 20 100 Nasal Cannula 2.0 28 71 20 100 11/30/18 12:00 97.4 73 18 158/78 (104) 98 11/30/18 12:00 72 11/30/18 11:21 75 18 100 Nasal Cannula 2.0 28 74 18 100 11/30/18 09:06 80 142/67 11/30/18 09:00 Nasal Cannula 2.0 11/30/18 08:00 79 11/30/18 08:00 98.5 80 20 142/67 (92) 97 11/30/18 07:46 78 17 100 Nasal Cannula 2.0 28 77 20 99 11/30/18 07:30 99 Nasal Cannula 2.0 28 11/30/18 04:00 85 11/30/18 04:00 98.6 86 20 109/67 (81) 100 11/30/18 03:40 76 18 99 Nasal Cannula 2.0 28 74 18 95 11/30/18 00:12 85 18 100 Nasal Cannula 2.0 28 83 18 96 11/30/18 00:00 77 11/30/18 00:00 98.4 81 18 132/68 (89) 100 11/29/18 21:50 101 120/69 11/29/18 21:00 Nasal Cannula 2.0 11/29/18 20:00 98.4 101 20 120/69 (86) 100 11/29/18 20:00 93 11/29/18 19:11 97 Nasal Cannula 2.0 28 11/29/18 19:09 94 18 100 Nasal Cannula 2.0 28 91 18 97 11/29/18 16:00 96 11/29/18 16:00 98.5 102 20 125/61 (82) 95 I&O Intake and Output 11/29/18 11/30/18 18:59 06:59 Intake Total 2085 ml 2322 ml Output Total 900 ml 800 ml Balance 1185 ml 1522 ml Intake Free Water 750 ml 600 ml IV Total 675 ml 1062 ml Tube Feeding 660 ml 660 ml Output Urine Total 900 ml 800 ml # Bowel Movements 1 Dressing: saturated Wound: clean Cardiovascular: RSR Respiratory: clear Abdomen: soft, non-tender, present bowel sounds Extremities: no edema, no cyanosis Laboratory Tests Test 11/30/18 05:16 White Blood Count 7.1 K/UL (4.8-10.8) Red Blood Count 2.69 M/UL (4.20-5.40) L Hemoglobin 8.4 G/DL (12.0-16.0) L Hematocrit 25.6 % (37.0-47.0) L Mean Corpuscular Volume 95 FL (80-99) Mean Corpuscular Hemoglobin 31.2 PG (27.0-31.0) H Mean Corpuscular Hemoglobin Concent 32.8 G/DL (32.0-36.0) Red Cell Distribution Width 13.1 % (11.6-14.8) Platelet Count 222 K/UL (150-450) Mean Platelet Volume 6.5 FL (6.5-10.1) Neutrophils (%) (Auto) 64.7 % (45.0-75.0) Lymphocytes (%) (Auto) 23.3 % (20.0-45.0) Monocytes (%) (Auto) 9.3 % (1.0-10.0) Eosinophils (%) (Auto) 1.9 % (0.0-3.0) Basophils (%) (Auto) 0.8 % (0.0-2.0) Erythrocyte Sedimentation Rate 132 MM/HR (0-30) H Sodium Level 146 MMOL/L (136-145) H Potassium Level 3.4 MMOL/L (3.5-5.1) L Chloride Level 107 MMOL/L (98-107) Carbon Dioxide Level 32 MMOL/L (21-32) Anion Gap 7 mmol/L (5-15) Blood Urea Nitrogen 28 mg/dL (7-18) H Creatinine 0.6 MG/DL (0.55-1.30) Estimat Glomerular Filtration Rate mL/min (>60) Glucose Level 276 MG/DL (74-106) H Calcium Level 8.9 MG/DL (8.5-10.1) Total Bilirubin 0.3 MG/DL (0.2-1.0) Aspartate Amino Transf (AST/SGOT) 19 U/L (15-37) Alanine Aminotransferase (ALT/SGPT) 16 U/L (12-78) Alkaline Phosphatase 63 U/L (46-116) C-Reactive Protein, Quantitative 1.7 mg/dL (0.00-0.90) H Total Protein 6.2 G/DL (6.4-8.2) L Albumin 1.8 G/DL (3.4-5.0) L Globulin 4.4 g/dL Albumin/Globulin Ratio 0.4 (1.0-2.7) L Plan Problems: (1) Protein-calorie malnutrition, moderate Assessment & Plan: DAILY ESTIMATED NEEDS: Needs based on Wound, DM, sepsis 56kg 25-30 kcals/kg 5699-3751 total kcals 1.25-2 g protein/kg 70-112 g total protein 25-30 mL/kg 8325-7710 total fluid mLs NUTRITION DIAGNOSIS: 1) Swallowing difficulty R/T dysphagia, CVA as evidenced by PEG dependent. 2) Increased kcal and pro needs r/t wound healing as evidenced by pt w/ previously stage 4 sacral and rt tibia wounds, pending new evaluation. CURRENT TF:Glucerna 1.2 @ 30ml/hr x 24 hrs -> INADEQUATE ENTERAL NUTRITION RECOMMENDATIONS: Glucerna 1.2 @ 55ml/hr x 24 hrs to provide 1320ml, 1584kcal, 79g prot, 1062ml free water - Rec to increase goal rate to 55ml/hr x 24 hrs : advance 10ml q 4-6 hrs as tolerated to goal. - HOB over 30 degrees - Without IVF, 120ml H20 flush q 6 hrs ADDITIONAL RECOMMENDATIONS: 1) Wound healing: Add Vit C 500mg QD : Add Gonsalo 1pkt BID 2) Monitor lytes daily, replete as needed 3) Calibrated bedscale wt (2) Acute and chronic respiratory failure with hypoxia (3) Sacral decubitus ulcer, stage IV Assessment & Plan: Pt presented on admission with multiple pressure injuries. Full thickness wound distal eliezer R tibia. Wound has irregular borders. Base of wound has 100% firm,thick yellow slough. Marginal erythema along borders. No odor or exudate noted. Periwound without erythema or induration.(L)11cm x (W) 5cm. Sacral pressure injury wound bed is 100% necrotic and dry with surrounding black and slightly indurated borders. Wound measures (L)8cm x (W)7cm in entirety , Necrotic area is (L)4cm x (W)3.5cm. Mild odor noted from sacral wound. R heel pressure injury has an area that is serous filled(L01.2cm x (W)1.5cm with surrounding maroon discoloration with fluctuance.(L)4.3cm x (W)6.2cm. R heel pressure injury necrotic at medial aspect(L)4cm x (W)3.5cm, with surrounding maroon discoloration extending into plantar aspect of R heel (L)8cm x (W)7cm . Pt has Bilat foot drop. Small dry brown discoloration noted to L earlobe. No erythema noted. Tx.Plan: Cleanse sacral wound with saline. Apply Dakin's moist Gauze. Apply Moisture Barrier periwound. Cover with Optifoam drsg. Change Twice daily and prn. Swab R and L heels with Betadine. Cover each heel with Optifoam drsg. Change every 3 days and prn. Swab Wound R tibia with Betadine. Cover with Optifoam drsg. Change every 3 days and prn. APM/LOU Mattress overlay. Reposition at least every 2 hours or as tolerated. Off-load heels with pillow. (4) Electrolyte imbalance Akhil Jackson Nov 30, 2018 15:37
[2018-11-30 16:00] VITALS: BP 133/72
--- NOTE | 2018-11-30 16:58 | Discharge Summary ---
Discharge Summary Hospital Course Date of Admission Nov 27, 2018 at 23:03 Date of Discharge Admitting Diagnosis sepsis, HCAP. HPI Tami Doe is a 78 year old female who was admitted on Nov 27, 2018 at 23:03 for Sepsis, Healthcare Associated Pneumonia Consultations Infectious disease Pulmonology Hospital Course This is a 78-year-old female with a past medical history of diabetes mellitus type 2, hypertension, CVA, advanced dementia, dysphagia status post PEG tube, with a recent hospitalization for MRSA/Pseudomonas pneumonia, who presents with 1 day history of acute hypoxic respiratory failure and severe sepsis secondary to recurrent pneumonia. The patient was admitted for acute on chronic hypoxic respiratory failure and severe sepsis secondary to presumed HAP versus aspiration pneumonia. Infectious disease was consulted who recommended cefepime Flagyl and vancomycin. Patient is to complete a 7-day course of antibiotics. Blood cultures were negative to date. Sputum culture was not obtained. The patient was titrated back to her baseline oxygen of 2 L. Patient was found to be hyponatremic to 150. This was likely a combination of dehydration on free water deficit. The patient was given lactated Ringer's as well as free water flushes every 4 hours with the correction of her sodium back to within normal limits. The patient needs to be continued on free water flushes 250 cc every 6hours in order to prevent further hypernatremia. Goals of care were discussed with the patient's healthcare decision-maker is her brother Mr. Archibald. The discussion of hospice occurred. At this time Mr. Archibald does not want to pursue hospice but would like to maintain CODE STATUS as DNR/DNI. The patient was discharged back to her half-way facility. She was hemodynamically stable. PHysical Exam Temperature 97.4 pulse 73 respirations 18 blood pressure 158/78 saturating 100% on 2 L nasal cannula. General: WDWN female in NAD, A&O x 0, baseline nonverbal HEENT: Normocephalic cephalic atraumatic, pupils equal round reactive to light and accommodation, nares patent and no symmetrical, no tonsillar exudates, mucous membranes moist CV: Regular rate regular rhythm, no murmurs, rubs, or gallops Pulm: Lungs clear to auscultation bilaterally. No wheezes, rhonchi, or rales GI: Soft, nontender, nondistended, bowel sounds present Neuro: CN 2-12 intact bilaterally, no focal signs. Ext: No lower extremity edema bilaterally Skin: no rashes lesions or ulcers Msk: Joints symmetrical in upper extremity and lower extremity bilaterally, no joint swelling. Lymph: No lymphadenopathy in upper extremity and lower extremity #Acute on chronic hypoxic respiratory failure secondary to HCAP - IMPROVING #Severe sepsis secondary to presumed HCAP (fever, tachycardia, elevated lactate ) - Resolved #Metabolic encephalopathy secondary to HCAP - Resolved, back to baseline #Lactic acidosis secondary to sepsis - Resolved > CXR: Retrocardiac consolidation and bilateral interstitial opacities. -Admit to telemetry -F/u Sputum culture -Blood cultures x2 - no growth to date -Appreciate infectious disease recommendations: Dr. Solis -Appreciate pulmonology recommendations: Dr. Milner -Titrate SPO2 to greater than 92% -Duo nebs and Mucomyst every 4 hours ATC -Pulmonary hygiene -Cefepime 1 g every 24 hours (11/27 - ) -D/C plan for 7-day course Levaquin 250 mg NG daily (11/27 - 11/29/18 ) -Flagyl 500 mg every 8 NG daily (11/27 - ) -Vancomycin per pharmacy (11/27 - ) - Plan for 7 day course #Hypernatremia. Free water deficit 1.8 L - Resolved -Lactated Ringer's at 50 cc an hour to correct hypovolemia -Free water flushes 200 cc every 4 hours - Discharge on 250 cc Q6hr for maintenance -Trend BMP -Correction of sodium no more than 8M EQ #Diabetes mellitus type 2 -Levemir 30 units subcu nightly -NovoLog 9 units 3 times daily AC -Sliding scale insulin -Accu-Cheks before meals at bedtime #Sacral decubitus ulcer, present on admission #Chronic indwelling Nunez for wound healing -Appreciate wound care consult -Appreciate general surgery recommendations: Dr. Jackson -Zinc 220 mg NG daily -Continue Nunez on discharge for sacral decubitus ulcer healing #Advanced dementia, end stage #history of CVA #Goals of care -Spent 35 minutes today discussing goals of care with the patient's healthcare decision-maker Mr. Archibald (brother). Mr. Archibald would like to continue DNR/DNI. At this time does not want hospice. Would like to speak to the group social worker more about hospice. -Social work consult for hospice percussion #HTN #History of CAD -Continue aspirin 81 mg p.o. daily Continue atorvastatin 40 mg p.o. nightly -Continue metoprolol 12.5 mg p.o. every 12 hours FENPPX DVTPPX: Heparin 5k units SBQ Q8h GI PPX: pepcid 20mg PO BID Fluids: LR as above Diet: Tube feeding Lines: none PT/OT: pending Dispo: Back to SNF >30 minutes spent on this discharge. Discussed with RN, infectious disease, pulmonology, and social work. > 50% spent on counseling and care coordination. Time of note may not reflect time patient was seen. Time of note may not reflect time patient was seen. Discharge Discharge Disposition Patient was discharged to Discharge Diagnoses: (1) HCAP (healthcare-associated pneumonia) (2) Severe sepsis (3) Acute and chronic respiratory failure with hypoxia (4) SOB (shortness of breath) (5) Sacral decubitus ulcer, stage IV (6) G tube feedings (7) Altered mental status Parviz Kwok D.O. Nov 30, 2018 16:58
--- NOTE | 2018-11-30 17:38 | Infectious Diseases Prog Note ---
Assessment/Plan Assessment/Plan ASSESSMENT AND PLAN: 1. sepsis, HCAP/aspiration pna, fungal uti, leukocytosis, fevers, sirs - vancomycin, cefepime and flagy -day # 3, plan on at least 7 days treatment - diflucan - day # 2/5 - monitor labs and chest x-ray 2. Pulmonary treatment per Pulmonary Medicine. 3. Skin care protocol. Sacral wound was noted. There is some slough, but most probably local wound care is important. She is on vancomycin, cefepime, and Flagyl. 4. The patient has history of diabetes. 5. Hypertension. 6. Blood sugar and blood pressure treatment for diabetes and hypertension per primary. 7. Anemia. 8. History of renal failure. 9. CVA. 10. Aspiration risk. 11. Dysphagia. 12. G-tube. 13. Benign neoplasm. 14. Encephalopathy and dementia. 15. Continue treatment per primary consultants. 16. No known allergies. 17. Social history is negative. 18. Family history is noncontributory. 19. MAR is noted. 20. Case was discussed with RN. Subjective Constitutional: Reports: fatigue, other - more alert, less sob ; Denies: fever HEENT: Reports: congestion - less Respiratory: Reports: shortness of breath - les Cardiovascular: Denies: chest pain Gastrointestinal/Abdominal: Denies: nausea, vomiting, diarrhea Genitourinary: Reports: other - + taylor Neurologic: Denies: headache Psychiatric: Denies: depression Skin: Denies: rash Hematologic: Denies: bleeding Musculoskeletal: Denies: pain Allergies: Coded Allergies: No Known Allergies (Unverified , 02/04/17) Objective Vital Signs Last 24 Hour Vital Signs Date Time Temp Pulse Resp B/P (MAP) Pulse Ox O2 Delivery O2 Flow Rate FiO2 11/30/18 16:00 98.2 81 22 133/72 (92) 99 11/30/18 15:05 72 20 100 Nasal Cannula 2.0 28 71 20 100 11/30/18 12:00 97.4 73 18 158/78 (104) 98 11/30/18 12:00 72 11/30/18 11:21 75 18 100 Nasal Cannula 2.0 28 74 18 100 11/30/18 09:06 80 142/67 11/30/18 09:00 Nasal Cannula 2.0 11/30/18 08:00 79 11/30/18 08:00 98.5 80 20 142/67 (92) 97 11/30/18 07:46 78 17 100 Nasal Cannula 2.0 28 77 20 99 11/30/18 07:30 99 Nasal Cannula 2.0 28 11/30/18 04:00 85 11/30/18 04:00 98.6 86 20 109/67 (81) 100 11/30/18 03:40 76 18 99 Nasal Cannula 2.0 28 74 18 95 11/30/18 00:12 85 18 100 Nasal Cannula 2.0 28 83 18 96 11/30/18 00:00 77 11/30/18 00:00 98.4 81 18 132/68 (89) 100 11/29/18 21:50 101 120/69 11/29/18 21:00 Nasal Cannula 2.0 11/29/18 20:00 98.4 101 20 120/69 (86) 100 11/29/18 20:00 93 11/29/18 19:11 97 Nasal Cannula 2.0 28 11/29/18 19:09 94 18 100 Nasal Cannula 2.0 28 91 18 97 Height (Feet): 5 Height (Inches): 0.00 Weight (Pounds): 124 General Appearance: no acute distress HEENT: normocephalic, atraumatic, anicteric Respiratory/Chest: crackles/rales, rhonchi - bilaterally Cardiovascular: normal rate, regular rhythm, no gallop/murmur Abdomen: normal bowel sounds, soft, non tender, no organomegaly, non distended Genitourinary: other - + taylor - urine clear Extremities: no cyanosis Skin: no rash Neurologic/Psychiatric: nurse monitoring II-XII grossly normal, alert, responsive Lymphatic: no neck adenopathy Musculoskeletal: no effusion Objective 11/30/18 - chest x-ray - Procedure: XRAY Chest 1v Indication: Shortness of breath Technique: XRAY Chest 1v Comparison: 11/27/2018 Findings: Heart size and mediastinal contours are stable. Atherosclerotic calcifications again noted in the aorta. There is worsening aeration with increased interstitial opacification. Bibasilar airspace opacities also increased. There is a small left pleural effusion. No radiographically appreciable pneumothorax. Osseous structures stable. Impression: Worsening aeration with increased interstitial opacification/edema and increased bibasilar opacities, left greater than right. Findings may be related to worsening edema and/or infection. Clinical correlation and follow-up recommended. Microbiology Date/Time Source Procedure Growth Status 11/27/18 22:10 Blood Blood Culture - Preliminary NO GROWTH AFTER 48 HOURS Resulted 11/27/18 22:00 Blood Blood Culture - Preliminary NO GROWTH AFTER 48 HOURS Resulted 11/29/18 10:37 Sputum Induced Gram Stain - Final Resulted 11/29/18 10:37 Sputum Induced Sputum Culture Pending Resulted 11/27/18 23:35 Nasal Nares MRSA Culture - Final Staphylococcus Aureus - Mrsa Complete 11/27/18 23:12 Urine,Clean Catch Urine Culture - Final Nandini Tropicalis Complete 11/27/18 23:35 Rectum - Final NO CARBAPENEM-RESISTANT ENTEROBACTERI... Complete 11/27/18 23:35 Rectum VRE Culture - Final Enterococcus Faecalis - Vre Complete Laboratory Tests Test 11/30/18 05:16 White Blood Count 7.1 K/UL (4.8-10.8) Red Blood Count 2.69 M/UL (4.20-5.40) L Hemoglobin 8.4 G/DL (12.0-16.0) L Hematocrit 25.6 % (37.0-47.0) L Mean Corpuscular Volume 95 FL (80-99) Mean Corpuscular Hemoglobin 31.2 PG (27.0-31.0) H Mean Corpuscular Hemoglobin Concent 32.8 G/DL (32.0-36.0) Red Cell Distribution Width 13.1 % (11.6-14.8) Platelet Count 222 K/UL (150-450) Mean Platelet Volume 6.5 FL (6.5-10.1) Neutrophils (%) (Auto) 64.7 % (45.0-75.0) Lymphocytes (%) (Auto) 23.3 % (20.0-45.0) Monocytes (%) (Auto) 9.3 % (1.0-10.0) Eosinophils (%) (Auto) 1.9 % (0.0-3.0) Basophils (%) (Auto) 0.8 % (0.0-2.0) Erythrocyte Sedimentation Rate 132 MM/HR (0-30) H Sodium Level 146 MMOL/L (136-145) H Potassium Level 3.4 MMOL/L (3.5-5.1) L Chloride Level 107 MMOL/L (98-107) Carbon Dioxide Level 32 MMOL/L (21-32) Anion Gap 7 mmol/L (5-15) Blood Urea Nitrogen 28 mg/dL (7-18) H Creatinine 0.6 MG/DL (0.55-1.30) Estimat Glomerular Filtration Rate mL/min (>60) Glucose Level 276 MG/DL (74-106) H Calcium Level 8.9 MG/DL (8.5-10.1) Total Bilirubin 0.3 MG/DL (0.2-1.0) Aspartate Amino Transf (AST/SGOT) 19 U/L (15-37) Alanine Aminotransferase (ALT/SGPT) 16 U/L (12-78) Alkaline Phosphatase 63 U/L (46-116) C-Reactive Protein, Quantitative 1.7 mg/dL (0.00-0.90) H Total Protein 6.2 G/DL (6.4-8.2) L Albumin 1.8 G/DL (3.4-5.0) L Globulin 4.4 g/dL Albumin/Globulin Ratio 0.4 (1.0-2.7) L Current Medications Medications (Trade) Dose Ordered Sig/Wayne Route PRN Reason Start Time Stop Time Status Last Admin Dose Admin Acetaminophen (Tylenol) 480 mg Q6H PRN GT Mild Pain/Temp > 100.5 11/28/18 12:45 12/28/18 12:44 11/28/18 20:23 Acetylcysteine (Mucomyst) 100 mg Q4HRT [facility] 11/28/18 07:00 12/28/18 06:59 11/30/18 14:50 Albuterol/ Ipratropium (Albuterol/ Ipratropium) 3 ml Q4HRT [facility] 11/28/18 11:00 12/03/18 10:59 11/30/18 14:49 Aspirin (ASA) 81 mg DAILY GT 11/28/18 09:00 12/28/18 08:59 11/30/18 09:05 Atorvastatin Calcium (Lipitor) 40 mg BEDTIME GT 11/28/18 21:00 12/28/18 20:59 11/29/18 21:51 Bisacodyl (Dulcolax) 10 mg DAILY PRN RECTAL Constipation 11/28/18 05:15 12/28/18 05:14 Cefepime HCl 1 gm/ Dextrose 55 ml @ 110 mls/hr Q24H IVPB 11/28/18 22:00 12/05/18 21:59 11/29/18 23:02 Dextrose (Dextrose 50%) 25 ml Q30M PRN IV Hypoglycemia 11/30/18 08:30 12/30/18 08:29 Dextrose (Dextrose 50%) 50 ml Q30M PRN IV Hypoglycemia 11/30/18 08:30 12/30/18 08:29 Diphenhydramine HCl (Benadryl) 25 mg Q6H PRN GT Itching 11/28/18 05:15 12/28/18 05:14 Docusate Sodium (Colace) 100 mg TWICE A DAY GT 11/28/18 09:00 12/28/18 08:59 11/30/18 09:06 Famotidine (Pepcid) 20 mg BID GT 11/28/18 09:00 12/28/18 08:59 11/30/18 09:05 Fluconazole (Diflucan) 100 mg DAILY ORAL 11/30/18 09:00 12/07/18 08:59 11/30/18 09:06 Heparin Sodium (Porcine) (Heparin 5000 units/ml) 5,000 units EVERY 12 HOURS SUBQ 11/28/18 09:00 12/28/18 08:59 11/30/18 09:08 Insulin Aspart (NovoLOG) BEFORE MEALS AND HS SUBQ 11/30/18 11:30 12/30/18 11:29 11/30/18 17:02 Insulin Aspart (NovoLOG) 9 units NOVOTIAC SUBQ 11/28/18 06:30 12/28/18 06:29 11/30/18 17:01 Insulin Detemir (Levemir) 30 units BEDTIME SUBQ 11/28/18 21:00 12/28/18 20:59 11/29/18 21:55 Lactated Ringer's 1,000 ml @ 75 mls/hr [id number] IV 11/28/18 12:00 12/28/18 11:59 11/30/18 00:14 Lactobacillus Acidophilus (Culturelle) 1 tab DAILY GT 11/28/18 09:00 12/28/18 08:59 11/30/18 09:06 Magnesium Hydroxide (Mom) 30 ml DAILY PRN GT Constipation 11/28/18 05:15 12/28/18 05:14 Metoprolol Tartrate (Lopressor) 12.5 mg EVERY 12 HOURS GT 11/28/18 09:00 12/28/18 08:59 11/30/18 09:06 Metronidazole (Flagyl) 500 mg EVERY 8 HOURS GT 11/28/18 14:00 12/05/18 13:59 11/30/18 13:45 Vancomycin HCl (Vanco rx to dose) 1 ea DAILY PRN MISC VANCO 11/28/18 06:45 12/28/18 06:44 Vancomycin HCl 1 gm/Dextrose 275 ml @ 183.708 mls/hr Q24H IVPB 11/29/18 00:00 12/04/18 00:00 11/30/18 00:15 Zinc Sulfate (Zinc Sulfate) 220 mg DAILY GT 11/28/18 09:00 12/28/18 08:59 11/30/18 09:06 Milton Valladares MD Nov 30, 2018 17:38
[2018-11-30] MEDS ORDERED: NS 275ml ONE (18:14)
[2018-11-30] MEDS ORDERED: LR 1000ml ONE (18:14)
--- NOTE | 2018-11-30 18:20 | NUR ---
NURSE NOTES: Patient discharged. No belongings. Patient stable AOx0 Nonverbal. IV sites intact. Gtube intact. Nunez draining well to gravity. Report given to Melanie at [facility].
--- NOTE | 2018-12-01 13:23 | Cardiology Report ---
APPROVED REPORT EKG Measurement Heart [id number] Sinus tachycardia Minimal voltage criteria for LVH, may be normal variant Borderline ECG
== END 2018-11-30 18:15 | DRG 871 ==
LOC: EDBD 21:50 → EMR 22:00 → 2E 23:03 → EDBEDREQ 23:36 → 2E 11-29 12:02
DX: A41.9 Sepsis, unspecified organism (principal); L89.154 Pressure ulcer of sacral region, stage 4; J69.0 Pneumonitis due to inhalation of food and vomit; J96.21 Acute and chronic respiratory failure with hypoxia; G92 Toxic encephalopathy; N39.0 Urinary tract infection, site not specified; E87.0 Hyperosmolality and hypernatremia; Z43.1 Encounter for attention to gastrostomy; R65.20 Severe sepsis without septic shock; E86.0 Dehydration; E11.9 Type 2 diabetes mellitus without complications; F03.90 Unspecified dementia, unspecified severity, without behavioral disturbance, psychotic disturbance, mood disturbance, and anxiety; Z86.73 Personal history of transient ischemic attack (TIA), and cerebral infarction without residual deficits; E78.5 Hyperlipidemia, unspecified; I25.10 Atherosclerotic heart disease of native coronary artery without angina pectoris; R13.10 Dysphagia, unspecified; E87.8 Other disorders of electrolyte and fluid balance, not elsewhere classified; Z66 Do not resuscitate
CPT/HCPCS: 36415; 71045; 80053; 81003; 82962; 83605; 83735; 83880; 84100; 84484; 85025; 85610; 85651; 85730; 86140; 87040; 87070; 87081; 87086; 87181; 87205; 93005; 94640; 94664; 96365; 96367; 96368; 99291; J1815; J7030; J7620; J8499; S5561

== ENCOUNTER 2018-12-16 10:36 | Inpatient (IN) | payer MEDICARE, MEDICAID ==
[2018-12-16] VITALS (39 sets, daily range): BP systolic 43–139; BP diastolic 24–70
[~2018-12-16] VITALS: Ht 162.6 cm; Wt 76.7 kg
[~2018-12-16 10:36] MED LIST changes: +ACETAMINOPHEN325 M1 ORAL; +ASCORBIC ACID500 MG GT; +CEFEPIME 11 GM/50 ML IV; +FLUCONAZOLE150 MG ORAL; +METRONIDAZOLE500 MG ORAL; +VANCOMYCIN1.5 GM/300 IV
--- NOTE | 2018-12-16 10:40 | NUR ---
ED Nurse Note: Patient was brought in to ER from SNF due to hypotension, tachycardia, and fever 100.4. Patient opens eyes spontaneously, not able to follow commands. Nunez cath intact, draining cloudy yellow urine by gravity. BP 101/64, Pulse 130s. RR 38. Temp 98.0. Place the patient on personnel monitor. Dr. Pendleton at bedside.
[2018-12-16] MEDS ORDERED: Vancomycin 1.5 GM in NS 275 ML IVPB ONE (11:00)
[2018-12-16] MEDS ORDERED: Cefepime HCl 2 GM in NS 110 ML IV SCH (11:00)
[2018-12-16 11:19] LABS: HEMATOCRIT 41.7 % (37.0-47.0); HEMOGLOBIN 13.5 G/DL (12.0-16.0); MEAN CORPUSCULAR VOLUME 97 FL (80-99); PLATELET COUNT 370 K/UL (150-450); RED BLOOD COUNT 4.31 M/UL (4.20-5.40); RED CELL DISTRIBUTION WIDTH 14.4 % (11.6-14.8)
[2018-12-16 11:20] LABS: WHITE BLOOD COUNT 26.1 K/UL (4.8-10.8)
[2018-12-16 11:20] LABS: APPEARANCE,URINE CLOUDY; BILIRUBIN, URINE NEGATIVE (NEGATIVE); GLUCOSE, URINE (UA) NEGATIVE (NEGATIVE); KETONES,URINE NEGATIVE (NEGATIVE); LEUKOCYTE ESTERASE ,URINE 3+ (NEGATIVE); NITRITE,URINE NEGATIVE (NEGATIVE); PH,URINE 9 (4.5-8.0); PROTEIN,URINE 3+ (NEGATIVE); UROBILINOGEN,URINE NORMAL MG/DL (0.0-1.0)
[2018-12-16 11:25] LABS: ANION GAP 14 mmol/L (5-15); BLOOD UREA NITROGEN 51 mg/dL (7-18); CALCIUM 10.5 MG/DL (8.5-10.1); CARBON DIOXIDE 27 MMOL/L (21-32); CHLORIDE 102 MMOL/L (98-107); CREATININE 1.8 MG/DL (0.55-1.30); POTASSIUM 5.1 MMOL/L (3.5-5.1); SODIUM 143 MMOL/L (136-145)
[2018-12-16 11:37] LABS: COLOR,URINE YELLOW
[2018-12-16 11:40] LABS: ALANINE AMINOTRANSFERASE 15 U/L (12-78); ALBUMIN 2.8 G/DL (3.4-5.0); ALBUMIN/GLOBULIN RATIO 0.4 (1.0-2.7); ALKALINE PHOSPHATASE 86 U/L (46-116); ASPARTATE AMINO TRANSFERASE 22 U/L (15-37); BILIRUBIN,TOTAL 0.6 MG/DL (0.2-1.0); CKMB < 0.5 NG/ML (0.0-3.6); CREATINE KINASE 53 U/L (26-308); PHOSPHORUS 3.6 MG/DL (2.5-4.9)
--- NOTE | 2018-12-16 11:40 | Emergency Room Report ---
History of Present Illness General Chief Complaint: Fever Source: Medical Record (Osei Pendleton MD) Present Illness HPI Patient is a 78-year-old female [facility] after increased fever and difficulty with breathing. Patient had a prior history of recurrent pneumonia. As she had recently been hospitalized with a staph and Pseudomonas pneumonia. She had recently been on IV antibiotics. She had some prior history of aspirations. She is currently dependent on G-tube. Patient was noted to have increased tachypnea as well as tachycardia with fever up to 101 degrees at her facility. Patient was sent in from [facility]. She was noted to be more short of breath. (Osei Pendleton MD) Allergies: Coded Allergies: No Known Allergies (Unverified , 02/04/17) Patient History Past Medical History: see triage record Reviewed Nursing Documentation: PMH: Agreed; PSxH: Agreed (Osei Pendleton MD) Nursing Documentation-PMH Hx Cardiac Problems: No - sepsis, UTI Hx Hypertension: Yes Hx Diabetes: Yes - type 2 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, unspecified Hx Gastrointestinal Problems: Yes - PEG placement (01/2017) Hx Neurological Problems: No - episodes of confusion, encephalopathy Hx Cerebrovascular Accident: Yes - right side CVA, hemiplagia hemiparesis, left residual Hx Transient Ischemic Attacks: No Hx Dementia: Yes (Osei Pendleton MD) Review of Systems All Other Systems: negative except mentioned in HPI (Osei Pendleton MD) Physical Exam Vital Signs Date Time Temp Pulse Resp B/P (MAP) Pulse Ox O2 Delivery O2 Flow Rate FiO2 12/16/18 10:29 100.6 140 20 90/50 (63) 98 2.0 12/16/18 10:40 Nasal Cannula Sp02 EP Interpretation: reviewed General Appearance: Chronically Ill Head: atraumatic ENT: dry mucus membranes Neck: normal inspection, limited range of motion Respiratory: normal inspection, no retraction, crackles, wheezing Cardiovascular #1: tachycardia Gastrointestinal: soft, tenderness - suprapubic mass Genitourinary: no CVA tenderness Musculoskeletal: normal inspection, back normal Neurologic: aphasia Psychiatric: normal inspection, judgement/insight normal, mood/affect normal Skin: rash (Osei Pendleton MD) Medical Decision Making Diagnostic Impression: Primary Impression: Severe sepsis Additional Impressions: Pneumonitis Encephalopathy Tachycardia ER Course Patient presented for increased fever and difficulty with breathing. Differential diagnosis include was not limited to pneumonia, influenza, septic shock, among others. Because of complexity of patient's case laboratory tests and imaging studies were ordered. Patient was noted to have markedly elevated white blood count consistent with possible sepsis. She was started on IV fluids as well as IV antibiotics. As she is given Tylenol. Patient was noted to have some prior pressure ulcers. She has multiple episodes of pneumonia in the past and had recently been hospitalized for MRSA and Pseudomonas pneumonia Patient's laboratory testing showed some market elevation of her white blood count consistent with current infection. Patient will be admitted to ICU due to persistent tachycardia and likely systemic infection. was contacted for Dr. Quintana for inpatient management.CT of the abdomen pelvis showed some evidence of obstruction of Nunez catheter despite urine in the tubing. Nunez catheter was changed. Patient was started on peripheral dopamine attempted to contact the patient's son regarding the patient's condition and was unable to contact him and left a message with his voicemail.Nunez catheter was changed and patient was noted to have improved urine output with cloudy urine. Patient was not intubated due to prior history of DNR status with limited interventions. Patient is admitted to ICU in critical condition. Labs Test 12/16/18 10:40 12/16/18 10:45 White Blood Count 26.1 K/UL (4.8-10.8) Red Blood Count 4.31 M/UL (4.20-5.40) Hemoglobin 13.5 G/DL (12.0-16.0) Hematocrit 41.7 % (37.0-47.0) Mean Corpuscular Volume 97 FL (80-99) Mean Corpuscular Hemoglobin 31.2 PG (27.0-31.0) Mean Corpuscular Hemoglobin Concent 32.3 G/DL (32.0-36.0) Red Cell Distribution Width 14.4 % (11.6-14.8) Platelet Count 370 K/UL (150-450) Mean Platelet Volume 6.9 FL (6.5-10.1) Neutrophils (%) (Auto) % (45.0-75.0) Lymphocytes (%) (Auto) % (20.0-45.0) Monocytes (%) (Auto) % (1.0-10.0) Eosinophils (%) (Auto) % (0.0-3.0) Basophils (%) (Auto) % (0.0-2.0) Prothrombin Time 10.5 SEC (9.30-11.50) Prothromb Time International Ratio 1.0 (0.9-1.1) Activated Partial Thromboplast Time 29 SEC (23-33) Sodium Level 143 MMOL/L (136-145) Potassium Level 5.1 MMOL/L (3.5-5.1) Chloride Level 102 MMOL/L (98-107) Carbon Dioxide Level 27 MMOL/L (21-32) Anion Gap 14 mmol/L (5-15) Blood Urea Nitrogen 51 mg/dL (7-18) Creatinine 1.8 MG/DL (0.55-1.30) Estimat Glomerular Filtration Rate mL/min (>60) Glucose Level 261 MG/DL (74-106) Calcium Level 10.5 MG/DL (8.5-10.1) Urine Color Yellow Urine Appearance Cloudy Urine pH 9 (4.5-8.0) Urine Specific [place] 1.015 (1.005-1.035) Urine Protein 3+ (NEGATIVE) Urine Glucose (UA) Negative (NEGATIVE) Urine Ketones Negative (NEGATIVE) Urine Blood Negative (NEGATIVE) Urine Nitrite Negative (NEGATIVE) Urine Bilirubin Negative (NEGATIVE) Urine Urobilinogen Normal MG/DL (0.0-1.0) Urine Leukocyte Esterase 3+ (NEGATIVE) (Osei Pendleton MD) ER Course Please see above note. With bolus BP better. Trying off pressors. BP holding. Patient improved, but critical and admitted to ICU. (Marcelo Knox MD) EKG Diagnostic Results Rate: tachycardiac ST Segments: no acute changes (Osei Pendleton MD) Rhythm Strip Diag. Results EP Interpretation: yes Rhythm: no PVC's, no ectopy, other - ST (Marcelo Knox MD) Last Vital Signs Date Time Temp Pulse Resp B/P (MAP) Pulse Ox O2 Delivery O2 Flow Rate FiO2 12/16/18 10:40 98.0 138 37 101/64 Nasal Cannula 2.0 12/16/18 10:29 98 Status: unchanged (Osei Pendleton MD) Status: improved (Marcelo Knox MD) Disposition: ADMITTED INPATIENT Admit Decision Time: 11:51 (Osei Pendleton MD) Condition: Critical Referrals: Yamileth Yates MD (PCP) Osei Pendleton MD Dec 16, 2018 11:40 Marcelo Knox MD Dec 16, 2018 15:44
[2018-12-16] MEDS ORDERED: Acetaminophen 650 MG SUPP RECTAL ONE (12:00)
[2018-12-16] MEDS ORDERED: Vancomycin 1.5gm vial IVPB ONE (12:10)
--- NOTE | 2018-12-16 12:52 | Diagnostic Imaging Report ---
Indication: Reason For Exam: SOB Technique: Single AP view of the chest. Comparison: Chest radiograph dated 11/30/2018 Findings: The cardiomediastinal silhouette is unchanged. Pulmonary vascular congestion is again seen. Redemonstration of small left pleural effusion with associated patchy airspace opacities. Interval improvement in aeration of the right lung base. No pneumothorax. No acute osseous abnormality. IMPRESSION: Persistent pulmonary vascular congestion with small left pleural effusion and left basilar airspace opacities, which may represent combination of edema/atelectasis but pneumonia should be excluded clinically.
--- NOTE | 2018-12-16 13:30 | NUR ---
ED Nurse Note: Dr. Pendleton made aware of no urine output low BP in . Taylor cath was irrigated by Dr. Pendleton. taylor cath was dc'd. new taylor cath reinserted per Dr. Pendleton. Initially 550ml cloudy yellow urine noted in taylor bag, now draining bloody urine noted. Dr. Pendleton notified.
--- NOTE | 2018-12-16 13:49 | Consultation ---
Consult Note Consult Note DATE OF CONSULTATION: 12/16/2018 PULMONARY CONSULTATION CONSULTING PHYSICIAN: Bimal Milner M.D. REFERRING PHYSICIAN: Yamileth Yates M.D. REASON FOR CONSULTATION: Aspiration pneumonia. HISTORY OF PRESENT ILLNESS: The patient is a very unfortunate 78-year-old female with history of prior CVA, G-tube dependent with recurrent aspiration pneumonias and multiple medical problems, well known to me from multiple admissions with with aspiration pneumonia and respiratory failure, now presenting back to the ER from facility with fevers, low BP, lactic acidosis and marked leukocytosis. No further history is obtainable from the patient. CXR stable + UTI. PAST MEDICAL HISTORY: 1. prison resident. 2. CVA. 3. Encephalopathic. 4. G-tube dependence. 5. Recurrent aspiration pneumonia. 6. Diabetes. 7. Hypertension. 8. Hyperlipidemia. PAST SURGICAL HISTORY: Unknown. ALLERGIES: No known drug allergies. Active Scripts Medications Dose Route/Sig Max Daily Dose Days Date Category Dose Instructions Fluconazole 150 Mg Tablet 100 Mg ORAL DAILY 4 11/30/18 Rx Flagyl* (Metronidazole) 500 Mg Tablet 500 Mg ORAL THREE TIMES A DAY 4 11/30/18 Rx Cefepime 1 Gm Injection (Cefepime Hcl/Dextrose, Iso-Osm) 1 Gm/50 Ml Froz.piggy 1 Gm IV DAILY 4 11/30/18 Rx Vancomycin 1.5 Gram/300 ml Bag (Vancomycin/Water For Inj) 1.5 Gm/300 Ml Piggyback 1 Gm IV Q24 4 11/30/18 Rx Ascorbic Acid* (Ascorbic Acid) 500 Mg Tablet 500 Mg GT DAILY 11/29/18 Reported Fleet Enema* (Na Phos,M-B/Na Phos,Di-Ba*) 133 Ml Enema 133 Ml RECTAL DAILY PRN 11/29/18 Reported Uti-Stat Liquid (Cran/Vitc/Mannose/Inulin/Brom) 3,875 Mg/30 Ml Liquid 30 Ml GT DAILY 11/29/18 Reported Famotidine 20 Mg Tablet 20 Mg GT DAILY 11/29/18 Reported Acetaminophen 325MG Tablet* (Acetaminophen) 325 Mg Tablet 650 Mg ORAL 0.5-1HR BEFORE TX 11/29/18 Reported Levemir Flexpen (Insulin Detemir) 100 Unit/1 Ml Insuln.pen 30 Units SUBQ BEDTIME 30 11/16/18 Rx Novolog Flexpen (Insulin Aspart) 100 Unit/1 Ml Insuln.pen 9 Units SUBQ NOVOTIAC 30 11/16/18 Rx Acetylcysteine* (Acetylcysteine) 100 Mg/1 Ml Vial 100 Mg HHN Q4H 11/07/18 Reported Metoprolol Tartrate* (Metoprolol Tartrate) 25 Mg Tablet 12.5 Mg GT EVERY 12 HOURS 11/07/18 Reported HOLD FOR SBP<110, HR<60 Atorvastatin Calcium* (Atorvastatin Calcium) 40 Mg Tablet 40 Mg GT BEDTIME 11/06/18 Reported Milk Of Magnesia* (Magnesium Hydroxide) 400 Mg/5 Ml Oral.susp 30 Ml GT DAILY PRN 10/15/18 Reported Diphenhydramine Hcl* (Diphenhydramine HCl) 25 Mg Capsule 25 Mg GT Q6H PRN 10/15/18 Reported Vitamin D* (Ergocalciferol (Vitamin D2)*) 50,000 Unit Capsule 5,000 Unit GT ONCE A WEEK 10/15/18 Reported ADMINISTERED ON SATURDAYS Aspirin* (Aspirin) 81 Mg Tab.chew 81 Mg GT ONCE A DAY 10/15/18 Reported Culturelle* (Lactobacillus Rhamnosus) 1 Each Capsule 1 Cap GT ONCE A DAY 10/14/18 Reported Fish Oil 1,000 mg Capsule (Fish Oil) 1 Each Capsule 2,000 Mg GT BID 10/14/18 Reported Zinc Sulfate* (Zinc Sulfate) 220 Mg Capsule 220 Mg GT DAILY 10/14/18 Reported Lasix* (Furosemide) 20 Mg Tablet 20 Mg GT DAILY 30 10/02/18 Rx Metformin Hcl* (Metformin HCl) 500 Mg Tablet 500 Mg GT TWICE A DAY 09/14/18 Reported Docusate Sodium* (Docusate Sodium) 100 Mg Capsule 100 Mg GT TWICE A DAY 08/11/17 Reported HOLD IF LOOSE STOOL/DIARRHEA Bisacodyl 10 Mg Supp.rect 10 Mg RC DAILY PRN 08/11/17 Reported Iprat-Albut 0.5-3(2.5) Mg/3 Ml (Ipratropium/Albuterol Sulfate) 3 Ml Ampul.neb 3 Ml IH Q6HR PRN 08/11/17 Reported Multi-Delyn* (Multivitamins) 237 Ml Liquid 5 Ml GT DAILY 08/11/17 Reported Acetaminophen* (Acetaminophen) 160 Mg/5 Ml Solution 480 Mg GT Q6H PRN 08/11/17 Reported Heparin Sodium* (Heparin Sodium (Porcine)) 5 000/1 Ml Vial 5,000 Units SUBQ EVERY 12 HOURS 30 02/10/17 Rx SOCIAL HISTORY: prison resident, otherwise unknown. FAMILY HISTORY: Noncontributory. REVIEW OF SYSTEMS: Unobtainable. PHYSICAL EXAMINATION: Last 24 Hour Vital Signs Date Time Temp Pulse Resp B/P (MAP) Pulse Ox O2 Delivery O2 Flow Rate FiO2 12/16/18 13:11 130 39 96 Facial 35 12/16/18 12:22 35 12/16/18 11:40 132 32 96 Facial 35 12/16/18 10:40 98.0 138 37 101/64 Nasal Cannula 2.0 12/16/18 10:40 135 38 Nasal Cannula 2.0 12/16/18 10:29 100.6 140 20 90/50 (63) 98 2.0 GENERAL: Frail, nonverbal female. HEENT: Normocephalic and atraumatic. Oropharynx is clear. Dry mucous membranes. NECK: Supple without lymphadenopathy or JVD. CHEST: Coarse breath sounds. HEART: Regular rate and rhythm. ABDOMEN: Soft, nontender, nondistended. G-tube is intact, clean and dry. EXTREMITIES: No cyanosis, clubbing, or edema. + wounds LABORATORY AND DIAGNOSTIC DATA: Imaging reviewed. Laboratory Tests Test 12/16/18 10:40 12/16/18 10:45 12/16/18 13:30 White Blood Count 26.1 K/UL (4.8-10.8) *H Red Blood Count 4.31 M/UL (4.20-5.40) Hemoglobin 13.5 G/DL (12.0-16.0) Hematocrit 41.7 % (37.0-47.0) Mean Corpuscular Volume 97 FL (80-99) Mean Corpuscular Hemoglobin 31.2 PG (27.0-31.0) H Mean Corpuscular Hemoglobin Concent 32.3 G/DL (32.0-36.0) Red Cell Distribution Width 14.4 % (11.6-14.8) Platelet Count 370 K/UL (150-450) Mean Platelet Volume 6.9 FL (6.5-10.1) Neutrophils (%) (Auto) % (45.0-75.0) Lymphocytes (%) (Auto) % (20.0-45.0) Monocytes (%) (Auto) % (1.0-10.0) Eosinophils (%) (Auto) % (0.0-3.0) Basophils (%) (Auto) % (0.0-2.0) Differential Total Cells Counted 100 Neutrophils % (Manual) 90 % (45-75) H Lymphocytes % (Manual) 4 % (20-45) L Monocytes % (Manual) 2 % (1-10) Eosinophils % (Manual) 0 % (0-3) Basophils % (Manual) 0 % (0-2) Band Neutrophils 4 % (0-8) Platelet Estimate Adequate Platelet Morphology Normal Polychromasia 1+ Anisocytosis 1+ Prothrombin Time 10.5 SEC (9.30-11.50) Prothromb Time International Ratio 1.0 (0.9-1.1) Activated Partial Thromboplast Time 29 SEC (23-33) Sodium Level 143 MMOL/L (136-145) Potassium Level 5.1 MMOL/L (3.5-5.1) Chloride Level 102 MMOL/L (98-107) Carbon Dioxide Level 27 MMOL/L (21-32) Anion Gap 14 mmol/L (5-15) Blood Urea Nitrogen 51 mg/dL (7-18) H Creatinine 1.8 MG/DL (0.55-1.30) H Estimat Glomerular Filtration Rate mL/min (>60) Glucose Level 261 MG/DL (74-106) H Lactic Acid Level 8.60 mmol/L (0.4-2.0) H Pending Calcium Level 10.5 MG/DL (8.5-10.1) H Phosphorus Level 3.6 MG/DL (2.5-4.9) Magnesium Level 2.2 MG/DL (1.8-2.4) Total Bilirubin 0.6 MG/DL (0.2-1.0) Aspartate Amino Transf (AST/SGOT) 22 U/L (15-37) Alanine Aminotransferase (ALT/SGPT) 15 U/L (12-78) Alkaline Phosphatase 86 U/L (46-116) Total Creatine Kinase 53 U/L (26-308) Creatine Kinase MB < 0.5 NG/ML (0.0-3.6) Creatine Kinase MB Relative Index Troponin I 0.069 ng/mL (0.000-0.056) Pro-B-Type Natriuretic Peptide 3321 pg/mL (0-125) H Total Protein 9.1 G/DL (6.4-8.2) H Albumin 2.8 G/DL (3.4-5.0) L Globulin 6.3 g/dL Albumin/Globulin Ratio 0.4 (1.0-2.7) L Urine Color Yellow Urine Appearance Cloudy Urine pH 9 (4.5-8.0) Urine Specific [place] 1.015 (1.005-1.035) Urine Protein 3+ (NEGATIVE) H Urine Glucose (UA) Negative (NEGATIVE) Urine Ketones Negative (NEGATIVE) Urine Blood Negative (NEGATIVE) Urine Nitrite Negative (NEGATIVE) Urine Bilirubin Negative (NEGATIVE) Urine Urobilinogen Normal MG/DL (0.0-1.0) Urine Leukocyte Esterase 3+ (NEGATIVE) H Urine RBC 0-2 /HPF (0 - 2) Urine WBC 2-4 /HPF (0 - 2) Urine Squamous Epithelial Cells Few /LPF (NONE/OCC) Urine Triple Phosphate Crystals Moderate /LPF (NONE) H Urine Bacteria Few /HPF (NONE) ASSESSMENT: The patient is a very unfortunate 78-year-old female with a history of diabetes, hypertension, hyperlipidemia, CVA, G-tube dependent, recurrent aspiration pneumonia, sacral decubitus ulcer, presenting with sepsis urinary tract infection. Utmost importance is addressing goals of care at this point. PROBLEM LIST: 1. Recurrent aspiration pneumonia. 2. Acute on chronic hypoxemic respiratory failure secondary to recurrent aspiration pneumonia. 3. Sepsis. 4. Encephalopathy. 5. CVA. 6. Electrolyte disturbance. 7. PEG tube status. 8. Diabetes. 9. Hypertension. 10. Hyperlipidemia. 11. Sacral decubitus ulcer. 12. Advanced dementia. 13. History of CAD. TREATMENT PLAN: 1. Optimize pulmonary hygiene/mobilize as tolerated. 2. Titrate down FiO2 to keep saturations greater than 90%. 3. Check an ABG. 4. Handheld nebulizers. 5. Antibiotics per ID. 6. Monitor volumes and renal function, agree with IV fluid hydration. 7. DVT prophylaxis, heparin subcutaneous. 8. Tube feeds as tolerated. 9. The patient is DNR/DNI, continue to discuss goals of care, consider hospice evaluation. CCT 45 Dr. Yates, thank you for allowing me to assist in the care of the patient. If I may be of any assistance in the future, please do not hesitate to ask Xochilt Grady Ashkan L. MD Dec 16, 2018 13:49
[2018-12-16] MEDS ORDERED: DOPamine 400mg/250ml 250 ML IV SCH (14:00)
--- NOTE | 2018-12-16 14:40 | NUR ---
ED Nurse Note: Started Dopamine at 2mcg/kg/min per Dr. Pendleton. running via right hand 22G. Per , okay to administer via peripheral IV line.
--- NOTE | 2018-12-16 15:15 | NUR ---
ED Nurse Note: Patient noted with BP 113/53, Dopamine running at 2mcg/kg/min. Dr. Knox made aware, to stop dopamine and recheck BP. turned off dopamine.
[2018-12-16] MEDS ORDERED: Amikacin Rx to dose MISC PRN (16:00)
--- NOTE | 2018-12-16 16:00 | NUR ---
NURSE NOTES: Patient transferred to ICU [id number] from ER via [facility]. Pt is obtunded, bilateral pupils are sluggish. BP 104/49, HR 123, Temp 99.5, SPo2 95%, RR 40. Patient is on BIPAP 15/5, Fio2 40%. Dopamine 2mcg/kg/min running via RH20G peripherally. ERMD called for emergent central line insertion, however it was necessary for general surgeon to insert line. Admission orders received from PMD. G-tube clamped and NPO maintained. Patient has an unstageable sacral, unstageable would on left leg and bilateral heels are red. Patient has x2 IV sites on RH and LH 20G, patent and asymptomatic. Nunez catheter is draining tea-colored urine to gravity with dark red clots. PMD is aware. Bed locked, alarmed and in lowest position.
--- NOTE | 2018-12-16 16:15 | NUR ---
NURSE NOTES: TRANSFER TO FLOOR: Patient transferred to [facility]. Report given to FELIX Smith. Patient has no belongings. Patient's brother at bedside, informed of transfer.
--- NOTE | 2018-12-16 16:20 | NUR ---
NURSE NOTES: Received orders to discontinue dopamine and change to levophed gtt per PMD. Started Levophed @10mcg/kg/hr will titrate to keep MAP >65.
[2018-12-16] MEDS ORDERED: Levophed 4mg/4mL Inj IV ONE (16:33)
--- NOTE | 2018-12-16 17:04 | Infectious Diseases Prog Note ---
Assessment/Plan Assessment/Plan Full consult dictated: A) 1) sepsis, shock, ? pna, ? chf, ? pe, sob, ? uti, leukocytosis, fevers, ARF 2) right leg and sacral wounds, ? sepsis 3) allergies - nkda P) 1) vancomycin, amikacin, flagyl and cefepime 2) check cultures, labs and chest x-ray 3) wound care per surgery and protocol 4) poor prognosis 5) thank you Subjective Allergies: Coded Allergies: No Known Allergies (Unverified , 02/04/17) Objective Vital Signs Last 24 Hour Vital Signs Date Time Temp Pulse Resp B/P (MAP) Pulse Ox O2 Delivery O2 Flow Rate FiO2 12/16/18 16:15 99.8 130 16 96/55 96 Bi-pap 40 12/16/18 15:50 99.8 128 32 96/55 100 Bi-pap 40 12/16/18 15:30 138 40 97/49 100 Bi-pap 40 12/16/18 15:15 131 29 100 Facial 35 12/16/18 15:15 135 39 113/53 100 Bi-pap 40 12/16/18 15:00 135 39 110/51 100 Bi-pap 40 12/16/18 14:45 138 40 101/46 100 Bi-pap 40 12/16/18 14:32 73/45 12/16/18 14:30 130 37 89/44 100 Bi-pap 40 12/16/18 14:00 132 39 71/45 100 Bi-pap 12/16/18 13:45 135 38 68/44 96 Bi-pap 12/16/18 13:30 133 38 53/40 96 Bi-pap 12/16/18 13:20 135 35 67/42 Bi-pap 12/16/18 13:11 130 39 96 Facial 35 12/16/18 13:00 136 37 91/59 Bi-pap 12/16/18 12:22 35 12/16/18 12:00 134 35 139/70 Bi-pap 12/16/18 11:40 132 32 96 Facial 35 12/16/18 11:00 102.4 135 35 100/64 Nasal Cannula 2.0 12/16/18 10:40 98.0 138 37 101/64 Nasal Cannula 2.0 12/16/18 10:40 135 38 Nasal Cannula 2.0 12/16/18 10:29 100.6 140 20 90/50 (63) 98 2.0 Height (Feet): 5 Height (Inches): 4.00 Weight (Pounds): 170 Microbiology Date/Time Source Procedure Growth Status 12/16/18 15:30 Rectum Received Laboratory Tests Test 12/16/18 10:40 12/16/18 10:45 12/16/18 13:30 White Blood Count 26.1 K/UL (4.8-10.8) *H Red Blood Count 4.31 M/UL (4.20-5.40) Hemoglobin 13.5 G/DL (12.0-16.0) Hematocrit 41.7 % (37.0-47.0) Mean Corpuscular Volume 97 FL (80-99) Mean Corpuscular Hemoglobin 31.2 PG (27.0-31.0) H Mean Corpuscular Hemoglobin Concent 32.3 G/DL (32.0-36.0) Red Cell Distribution Width 14.4 % (11.6-14.8) Platelet Count 370 K/UL (150-450) Mean Platelet Volume 6.9 FL (6.5-10.1) Neutrophils (%) (Auto) % (45.0-75.0) Lymphocytes (%) (Auto) % (20.0-45.0) Monocytes (%) (Auto) % (1.0-10.0) Eosinophils (%) (Auto) % (0.0-3.0) Basophils (%) (Auto) % (0.0-2.0) Differential Total Cells Counted 100 Neutrophils % (Manual) 90 % (45-75) H Lymphocytes % (Manual) 4 % (20-45) L Monocytes % (Manual) 2 % (1-10) Eosinophils % (Manual) 0 % (0-3) Basophils % (Manual) 0 % (0-2) Band Neutrophils 4 % (0-8) Platelet Estimate Adequate Platelet Morphology Normal Polychromasia 1+ Anisocytosis 1+ Prothrombin Time 10.5 SEC (9.30-11.50) Prothromb Time International Ratio 1.0 (0.9-1.1) Activated Partial Thromboplast Time 29 SEC (23-33) Sodium Level 143 MMOL/L (136-145) Potassium Level 5.1 MMOL/L (3.5-5.1) Chloride Level 102 MMOL/L (98-107) Carbon Dioxide Level 27 MMOL/L (21-32) Anion Gap 14 mmol/L (5-15) Blood Urea Nitrogen 51 mg/dL (7-18) H Creatinine 1.8 MG/DL (0.55-1.30) H Estimat Glomerular Filtration Rate mL/min (>60) Glucose Level 261 MG/DL (74-106) H Lactic Acid Level 8.60 mmol/L (0.4-2.0) H 11.00 mmol/L (0.66-2.22) H Calcium Level 10.5 MG/DL (8.5-10.1) H Phosphorus Level 3.6 MG/DL (2.5-4.9) Magnesium Level 2.2 MG/DL (1.8-2.4) Total Bilirubin 0.6 MG/DL (0.2-1.0) Aspartate Amino Transf (AST/SGOT) 22 U/L (15-37) Alanine Aminotransferase (ALT/SGPT) 15 U/L (12-78) Alkaline Phosphatase 86 U/L (46-116) Total Creatine Kinase 53 U/L (26-308) Creatine Kinase MB < 0.5 NG/ML (0.0-3.6) Creatine Kinase MB Relative Index Troponin I 0.069 ng/mL (0.000-0.056) Pro-B-Type Natriuretic Peptide 3321 pg/mL (0-125) H Total Protein 9.1 G/DL (6.4-8.2) H Albumin 2.8 G/DL (3.4-5.0) L Globulin 6.3 g/dL Albumin/Globulin Ratio 0.4 (1.0-2.7) L Urine Color Yellow Urine Appearance Cloudy Urine pH 9 (4.5-8.0) Urine Specific [place] 1.015 (1.005-1.035) Urine Protein 3+ (NEGATIVE) H Urine Glucose (UA) Negative (NEGATIVE) Urine Ketones Negative (NEGATIVE) Urine Blood Negative (NEGATIVE) Urine Nitrite Negative (NEGATIVE) Urine Bilirubin Negative (NEGATIVE) Urine Urobilinogen Normal MG/DL (0.0-1.0) Urine Leukocyte Esterase 3+ (NEGATIVE) H Urine RBC 0-2 /HPF (0 - 2) Urine WBC 2-4 /HPF (0 - 2) Urine Squamous Epithelial Cells Few /LPF (NONE/OCC) Urine Triple Phosphate Crystals Moderate /LPF (NONE) H Urine Bacteria Few /HPF (NONE) Current Medications Medications (Trade) Dose Ordered Sig/[place] Route PRN Reason Start Time Stop Time Status Last Admin Dose Admin Amikacin Protocol (Amikacin pharmacy to dose) 1 ea DAILY PRN MISC Per rx protocol 12/16/18 16:00 01/15/19 15:59 Amikacin Sulfate 500 mg/Sodium Chloride 112 ml @ 112 mls/hr ONCE ONCE IV 12/16/18 17:30 12/16/18 18:29 12/16/18 16:47 Cefepime HCl 2 gm/ Dextrose 55 ml @ 110 mls/hr Q24H IVPB 12/17/18 11:00 12/24/18 10:59 Dopamine HCl/ Dextrose 250 ml @ 0 mls/hr Q24H IV 12/16/18 14:00 01/15/19 13:59 12/16/18 14:32 Metronidazole 100 ml @ 100 mls/hr Q8HR IVPB 12/16/18 22:00 12/23/18 21:59 Norepinephrine Bitartrate 4 mg/ Dextrose 250 ml @ 0 mls/hr Q24H IV 12/16/18 16:45 01/15/19 16:44 UNV Vancomycin HCl (Vanco rx to dose) 1 ea DAILY PRN MISC Per rx protocol 12/16/18 16:00 01/15/19 15:59 Milton Valladares MD Dec 16, 2018 17:04
[2018-12-16] MEDS ORDERED: Amikacin 500 MG in NS 110 ML IV ONE (17:30)
[2018-12-16] MEDS: NovoLOG Insulin Flexpen SUBQ SCH ×2 (18:00→19:05)
--- NOTE | 2018-12-16 18:13 | NUR ---
NURSE NOTES: Right femoral TLC inserted by Dr. Jackson. Obtained consent from brother, Jake Stevenson who is at bedside.
--- NOTE | 2018-12-16 18:36 | Cardiac Electrophysiology PN ---
Subjective Subjective [id number] Objective Last 24 Hour Vital Signs Date Time Temp Pulse Resp B/P (MAP) Pulse Ox O2 Delivery O2 Flow Rate FiO2 12/16/18 18:21 94/43 12/16/18 18:00 120 26 94/43 (60) 98 12/16/18 17:30 119 27 92/49 (63) 97 12/16/18 17:17 119 25 97 Facial 40 12/16/18 17:00 120 27 87/54 (65) 97 12/16/18 16:54 Bi-pap 40.0 12/16/18 16:30 40 12/16/18 16:30 97.3 123 27 70/46 (54) 97 12/16/18 16:23 Bi-pap 40.0 12/16/18 16:15 99.8 130 16 96/55 96 Bi-pap 40 12/16/18 15:50 99.8 128 32 96/55 100 Bi-pap 40 12/16/18 15:30 138 40 97/49 100 Bi-pap 40 12/16/18 15:15 131 29 100 Facial 35 12/16/18 15:15 113/53 12/16/18 15:15 135 39 113/53 100 Bi-pap 40 12/16/18 15:00 135 39 110/51 100 Bi-pap 40 12/16/18 15:00 110/51 12/16/18 14:45 138 40 101/46 100 Bi-pap 40 12/16/18 14:32 73/45 12/16/18 14:30 130 37 89/44 100 Bi-pap 40 12/16/18 14:00 132 39 71/45 100 Bi-pap 12/16/18 13:45 135 38 68/44 96 Bi-pap 12/16/18 13:30 133 38 53/40 96 Bi-pap 12/16/18 13:20 135 35 67/42 Bi-pap 12/16/18 13:11 130 39 96 Facial 35 12/16/18 13:00 99.6 12/16/18 13:00 136 37 91/59 Bi-pap 12/16/18 12:22 35 12/16/18 12:00 134 35 139/70 Bi-pap 12/16/18 11:40 132 32 96 Facial 35 12/16/18 11:00 102.4 135 35 100/64 Nasal Cannula 2.0 12/16/18 10:40 98.0 138 37 101/64 Nasal Cannula 2.0 12/16/18 10:40 135 38 Nasal Cannula 2.0 12/16/18 10:29 100.6 140 20 90/50 (63) 98 2.0 Laboratory Tests Test 12/16/18 10:40 12/16/18 10:45 12/16/18 13:30 12/16/18 16:39 White Blood Count 26.1 K/UL (4.8-10.8) *H Red Blood Count 4.31 M/UL (4.20-5.40) Hemoglobin 13.5 G/DL (12.0-16.0) Hematocrit 41.7 % (37.0-47.0) Mean Corpuscular Volume 97 FL (80-99) Mean Corpuscular Hemoglobin 31.2 PG (27.0-31.0) H Mean Corpuscular Hemoglobin Concent 32.3 G/DL (32.0-36.0) Red Cell Distribution Width 14.4 % (11.6-14.8) Platelet Count 370 K/UL (150-450) Mean Platelet Volume 6.9 FL (6.5-10.1) Neutrophils (%) (Auto) % (45.0-75.0) Lymphocytes (%) (Auto) % (20.0-45.0) Monocytes (%) (Auto) % (1.0-10.0) Eosinophils (%) (Auto) % (0.0-3.0) Basophils (%) (Auto) % (0.0-2.0) Differential Total Cells Counted 100 Neutrophils % (Manual) 90 % (45-75) H Lymphocytes % (Manual) 4 % (20-45) L Monocytes % (Manual) 2 % (1-10) Eosinophils % (Manual) 0 % (0-3) Basophils % (Manual) 0 % (0-2) Band Neutrophils 4 % (0-8) Platelet Estimate Adequate Platelet Morphology Normal Polychromasia 1+ Anisocytosis 1+ Prothrombin Time 10.5 SEC (9.30-11.50) Prothromb Time International Ratio 1.0 (0.9-1.1) Activated Partial Thromboplast Time 29 SEC (23-33) Sodium Level 143 MMOL/L (136-145) Potassium Level 5.1 MMOL/L (3.5-5.1) Chloride Level 102 MMOL/L (98-107) Carbon Dioxide Level 27 MMOL/L (21-32) Anion Gap 14 mmol/L (5-15) Blood Urea Nitrogen 51 mg/dL (7-18) H Creatinine 1.8 MG/DL (0.55-1.30) H Estimat Glomerular Filtration Rate mL/min (>60) Glucose Level 261 MG/DL (74-106) H Lactic Acid Level 8.60 mmol/L (0.4-2.0) H 11.00 mmol/L (0.66-2.22) H Calcium Level 10.5 MG/DL (8.5-10.1) H Phosphorus Level 3.6 MG/DL (2.5-4.9) Magnesium Level 2.2 MG/DL (1.8-2.4) Total Bilirubin 0.6 MG/DL (0.2-1.0) Aspartate Amino Transf (AST/SGOT) 22 U/L (15-37) Alanine Aminotransferase (ALT/SGPT) 15 U/L (12-78) Alkaline Phosphatase 86 U/L (46-116) Total Creatine Kinase 53 U/L (26-308) Creatine Kinase MB < 0.5 NG/ML (0.0-3.6) Creatine Kinase MB Relative Index Troponin I 0.069 ng/mL (0.000-0.056) Pro-B-Type Natriuretic Peptide 3321 pg/mL (0-125) H Total Protein 9.1 G/DL (6.4-8.2) H Albumin 2.8 G/DL (3.4-5.0) L Globulin 6.3 g/dL Albumin/Globulin Ratio 0.4 (1.0-2.7) L Urine Color Yellow Urine Appearance Cloudy Urine pH 9 (4.5-8.0) Urine Specific [place] 1.015 (1.005-1.035) Urine Protein 3+ (NEGATIVE) H Urine Glucose (UA) Negative (NEGATIVE) Urine Ketones Negative (NEGATIVE) Urine Blood Negative (NEGATIVE) Urine Nitrite Negative (NEGATIVE) Urine Bilirubin Negative (NEGATIVE) Urine Urobilinogen Normal MG/DL (0.0-1.0) Urine Leukocyte Esterase 3+ (NEGATIVE) H Urine RBC 0-2 /HPF (0 - 2) Urine WBC 2-4 /HPF (0 - 2) Urine Squamous Epithelial Cells Few /LPF (NONE/OCC) Urine Triple Phosphate Crystals Moderate /LPF (NONE) H Urine Bacteria Few /HPF (NONE) Arterial Blood pH 7.392 (7.350-7.450) Arterial Blood Partial Pressure CO2 23.2 mmHg (35.0-45.0) *L Arterial Blood Partial Pressure O2 75.8 mmHg (75.0-100.0) Arterial Blood HCO3 13.8 mmol/L (22.0-26.0) *L Arterial Blood Oxygen Saturation 93.3 % (95-100) L Arterial Blood Base Excess -9.6 (-2-2) *L Ray Test Positive Microbiology Date/Time Source Procedure Growth Status 12/16/18 15:30 Rectum Received José Miguel Guardado MD Dec 16, 2018 18:35
--- NOTE | 2018-12-16 19:03 | NUR ---
RESPIRATORY NOTE: Received pt on BiPAP 15/, backup rate 12, 40%. Pt on a Facial mask, skin intact, no redness/breakdowns noted. Foam tape applied on pt's nosebridge/cheeks/chin to prevent mask irritations. Pt is obtunded. B/S emilie. clear/diminished, nonproductive cough. BiPAP plugged into red outlet, alarms on & audible. Pt in no apparent distress at this time. Will continue to monitor pt.
--- NOTE | 2018-12-16 19:21 | NUR ---
HAND-OFF: Report given to FELIX Zhang. Levophed running@14mcg/kg/hr, BP 95/43.
--- NOTE | 2018-12-16 19:30 | NUR ---
NURSE NOTES: Received report from Sarah W[place]. patient in bed with eyes open, no moaning no facial grimaces. On BIPAP 15/5 fi02 40% satting 100%. HOB elevated. Right Femoral TLC intact. On Levophed drip at 14mcg/min BP 102/45 ST on personnel monitor HR 118. No s/s of hypo/hyperglycemia. Temp 102.1 axillary, cooling measure provided. Nunez draining with dark shefali color urine. No s/s of acute distress noted. Contact isolation maintained and observed. bed alarm on. bed locked and in low position. call light within easy reach. will continue plan of acre.
--- NOTE | 2018-12-16 19:31 | Consultation ---
History of Present Illness General Date patient seen: Dec 16, 2018 Chief Complaint: Fever Present Illness HPI This is a very unfortunate 78-year-old female with multiple medical comorbidities including history of prior CVA, G-tube dependent with recurrent aspiration pneumonias who is well known to me from multiple prior admissions that now presents to ER from facility with fevers, low BP, lactic acidosis and marked leukocytosis. No further history is obtainable from the patient. family at bedside to help with decisions. she is in ICU on pressors. surgery called to evaluate and assist with care. patient seen, chart reviewed, patient examined. Allergies: Coded Allergies: No Known Allergies (Unverified , 02/04/17) Medication History Scheduled Acetaminophen* (Acetaminophen 325MG Tablet*), 650 MG ORAL 0.5-1HR BEFORE TX, ( Reported) Acetylcysteine* (Acetylcysteine*), 100 MG HHN Q4H, (Reported) Ascorbic Acid* (Ascorbic Acid*), 500 MG GT DAILY, (Reported) Aspirin* (Aspirin*), 81 MG GT ONCE A DAY, (Reported) Atorvastatin Calcium* (Atorvastatin Calcium*), 40 MG GT BEDTIME, (Reported) Cefepime Hcl/Dextrose, Iso-Osm (Cefepime 1 Gm Injection), 1 GM IV DAILY Cran/Vitc/Mannose/Inulin/Brom (Uti-Stat Liquid), 30 ML GT DAILY, (Reported) Docusate Sodium* (Docusate Sodium*), 100 MG GT TWICE A DAY, (Reported) Ergocalciferol (Vitamin D2)* (Vitamin D*), 5,000 UNIT GT ONCE A WEEK, (Reported) Famotidine (Famotidine), 20 MG GT DAILY, (Reported) Fish Oil (Fish Oil 1,000 mg Capsule), 2,000 MG GT BID, (Reported) Fluconazole (Fluconazole), 100 MG ORAL DAILY Furosemide* (Lasix*), 20 MG GT DAILY Heparin Sod (Porcine) (Heparin Sodium*), 5,000 UNITS SUBQ EVERY 12 HOURS Insulin Aspart (Novolog Flexpen), 9 UNITS SUBQ NOVOTIAC Insulin Detemir (Levemir Flexpen), 30 UNITS SUBQ BEDTIME Lactobacillus Rhamnosus Gg* (Culturelle*), 1 CAP GT ONCE A DAY, (Reported) Metformin Hcl* (Metformin Hcl*), 500 MG GT TWICE A DAY, (Reported) Metoprolol Tartrate* (Metoprolol Tartrate*), 12.5 MG GT EVERY 12 HOURS, ( Reported) Metronidazole* (Flagyl*), 500 MG ORAL THREE TIMES A DAY Multivitamin Liquid* (Multi-Delyn*), 5 ML GT DAILY, (Reported) Vancomycin/Water For Inj (Vancomycin 1.5 Gram/300 ml Bag), 1 GM IV q24 Zinc Sulfate (Zinc Sulfate*), 220 MG GT DAILY, (Reported) Scheduled PRN Acetaminophen* (Acetaminophen*), 480 MG GT Q6H PRN for Mild Pain/Temp > 100.5, ( Reported) Bisacodyl (Bisacodyl), 10 MG RC DAILY PRN for Constipation, (Reported) Diphenhydramine Hcl* (Diphenhydramine Hcl*), 25 MG GT Q6H PRN for Itching, ( Reported) Ipratropium/Albuterol Sulfate (Iprat-Albut 0.5-3(2.5) Mg/3 Ml), 3 ML IH Q6HR PRN for Shortness of Breath, (Reported) Magnesium Hydroxide* (Milk Of Magnesia*), 30 ML GT DAILY PRN for Constipation, ( Reported) Na Phos,M-B/Na Phos,Di-Ba* (Fleet Enema*), 133 ML RECTAL DAILY PRN for Constipation, (Reported) Patient History History Provided By: Family Member, Medical Record, PMD Healthcare decision maker Resuscitation status Do Not Resuscitate Advanced Directive on File Yes Past Medical/Surgical History Past Medical/Surgical History: (1) Acute and chronic respiratory failure with hypoxia (2) Septic shock (3) SOB (shortness of breath) (4) Sacral decubitus ulcer, stage IV (5) Respiratory failure with hypoxia and hypercapnia (6) Severe sepsis due to methicillin resistant Staphylococcus aureus (MRSA) with acute organ dysfunction (7) Protein-calorie malnutrition, moderate (8) Tachycardia (9) Encephalopathy (10) Pneumonitis (11) Severe sepsis (12) G tube feedings (13) Electrolyte imbalance (14) Altered mental status (15) H/O: CVA (cerebrovascular accident) (16) Pneumonia (17) KEL (acute kidney injury) (18) Ventilator dependence (19) Endotracheally intubated (20) Hypokalemia (21) Hypercalcemia (22) Abscess (23) Rash (24) Hypernatremia (25) HTN (hypertension) (26) Elevated troponin (27) Encounter for PEG (percutaneous endoscopic gastrostomy) (28) MRSA infection (29) PNA (pneumonia) (30) Hyperglycemia due to type 2 diabetes mellitus (31) Upper sacral area unstageable pressure ulcer (32) Large ischemic R MCA stroke (33) UTI (urinary tract infection) (34) Perineal area gertrudis rashes extending to left and right buttocks (35) Right lateral malleolus stage I pressure ulcer (36) Respiratory failure (37) DM (diabetes mellitus) (38) Hypernatremia (39) Lactic acid acidosis (40) Toxic metabolic encephalopathy (41) Dehydration (42) Sepsis Review of Systems ROS Narrative cannot obtain given medical condition Physical Exam General Appearance: lethargic, mild distress Lines, tubes and drains: peripheral HEENT: atraumatic, anicteric Neck: normal inspection Respiratory/Chest: respiratory distress, decreased breath sounds Cardiovascular/Chest: tachycardia Abdomen: soft, no organomegaly, no mass Extremities: no calf tenderness, non-pitting Skin Exam: normal pigmentation Neurologic: unresponsiveness Last 24 Hour Vital Signs Date Time Temp Pulse Resp B/P (MAP) Pulse Ox O2 Delivery O2 Flow Rate FiO2 12/16/18 19:00 116 26 96 Facial 40 12/16/18 19:00 120 26 94/43 (60) 98 12/16/18 18:50 95/43 12/16/18 18:45 118 26 95/45 (62) 98 12/16/18 18:40 91/44 12/16/18 18:30 119 26 88/47 (61) 98 12/16/18 18:21 94/43 12/16/18 18:15 98.8 120 26 90/54 (66) 97 12/16/18 18:00 120 26 94/43 (60) 98 12/16/18 17:30 119 27 92/49 (63) 97 12/16/18 17:17 119 25 97 Facial 40 12/16/18 17:00 120 27 87/54 (65) 97 12/16/18 16:54 Bi-pap 40.0 12/16/18 16:30 40 12/16/18 16:30 97.3 123 27 70/46 (54) 97 12/16/18 16:23 Bi-pap 40.0 12/16/18 16:15 99.8 130 16 96/55 96 Bi-pap 40 12/16/18 15:50 99.8 128 32 96/55 100 Bi-pap 40 12/16/18 15:30 138 40 97/49 100 Bi-pap 40 12/16/18 15:15 131 29 100 Facial 35 12/16/18 15:15 113/53 12/16/18 15:15 135 39 113/53 100 Bi-pap 40 12/16/18 15:00 135 39 110/51 100 Bi-pap 40 12/16/18 15:00 110/51 12/16/18 14:45 138 40 101/46 100 Bi-pap 40 12/16/18 14:32 73/45 12/16/18 14:30 130 37 89/44 100 Bi-pap 40 12/16/18 14:00 132 39 71/45 100 Bi-pap 12/16/18 13:45 135 38 68/44 96 Bi-pap 12/16/18 13:30 133 38 53/40 96 Bi-pap 12/16/18 13:20 135 35 67/42 Bi-pap 12/16/18 13:11 130 39 96 Facial 35 12/16/18 13:00 99.6 12/16/18 13:00 136 37 91/59 Bi-pap 12/16/18 12:22 35 12/16/18 12:00 134 35 139/70 Bi-pap 12/16/18 11:40 132 32 96 Facial 35 12/16/18 11:00 102.4 135 35 100/64 Nasal Cannula 2.0 12/16/18 10:40 98.0 138 37 101/64 Nasal Cannula 2.0 12/16/18 10:40 135 38 Nasal Cannula 2.0 12/16/18 10:29 100.6 140 20 90/50 (63) 98 2.0 Laboratory Tests Test 12/16/18 10:40 12/16/18 10:45 12/16/18 13:30 12/16/18 16:39 White Blood Count 26.1 K/UL (4.8-10.8) *H Red Blood Count 4.31 M/UL (4.20-5.40) Hemoglobin 13.5 G/DL (12.0-16.0) Hematocrit 41.7 % (37.0-47.0) Mean Corpuscular Volume 97 FL (80-99) Mean Corpuscular Hemoglobin 31.2 PG (27.0-31.0) H Mean Corpuscular Hemoglobin Concent 32.3 G/DL (32.0-36.0) Red Cell Distribution Width 14.4 % (11.6-14.8) Platelet Count 370 K/UL (150-450) Mean Platelet Volume 6.9 FL (6.5-10.1) Neutrophils (%) (Auto) % (45.0-75.0) Lymphocytes (%) (Auto) % (20.0-45.0) Monocytes (%) (Auto) % (1.0-10.0) Eosinophils (%) (Auto) % (0.0-3.0) Basophils (%) (Auto) % (0.0-2.0) Differential Total Cells Counted 100 Neutrophils % (Manual) 90 % (45-75) H Lymphocytes % (Manual) 4 % (20-45) L Monocytes % (Manual) 2 % (1-10) Eosinophils % (Manual) 0 % (0-3) Basophils % (Manual) 0 % (0-2) Band Neutrophils 4 % (0-8) Platelet Estimate Adequate Platelet Morphology Normal Polychromasia 1+ Anisocytosis 1+ Prothrombin Time 10.5 SEC (9.30-11.50) Prothromb Time International Ratio 1.0 (0.9-1.1) Activated Partial Thromboplast Time 29 SEC (23-33) Sodium Level 143 MMOL/L (136-145) Potassium Level 5.1 MMOL/L (3.5-5.1) Chloride Level 102 MMOL/L (98-107) Carbon Dioxide Level 27 MMOL/L (21-32) Anion Gap 14 mmol/L (5-15) Blood Urea Nitrogen 51 mg/dL (7-18) H Creatinine 1.8 MG/DL (0.55-1.30) H Estimat Glomerular Filtration Rate mL/min (>60) Glucose Level 261 MG/DL (74-106) H Lactic Acid Level 8.60 mmol/L (0.4-2.0) H 11.00 mmol/L (0.66-2.22) H Calcium Level 10.5 MG/DL (8.5-10.1) H Phosphorus Level 3.6 MG/DL (2.5-4.9) Magnesium Level 2.2 MG/DL (1.8-2.4) Total Bilirubin 0.6 MG/DL (0.2-1.0) Aspartate Amino Transf (AST/SGOT) 22 U/L (15-37) Alanine Aminotransferase (ALT/SGPT) 15 U/L (12-78) Alkaline Phosphatase 86 U/L (46-116) Total Creatine Kinase 53 U/L (26-308) Creatine Kinase MB < 0.5 NG/ML (0.0-3.6) Creatine Kinase MB Relative Index Troponin I 0.069 ng/mL (0.000-0.056) Pro-B-Type Natriuretic Peptide 3321 pg/mL (0-125) H Total Protein 9.1 G/DL (6.4-8.2) H Albumin 2.8 G/DL (3.4-5.0) L Globulin 6.3 g/dL Albumin/Globulin Ratio 0.4 (1.0-2.7) L Urine Color Yellow Urine Appearance Cloudy Urine pH 9 (4.5-8.0) Urine Specific [place] 1.015 (1.005-1.035) Urine Protein 3+ (NEGATIVE) H Urine Glucose (UA) Negative (NEGATIVE) Urine Ketones Negative (NEGATIVE) Urine Blood Negative (NEGATIVE) Urine Nitrite Negative (NEGATIVE) Urine Bilirubin Negative (NEGATIVE) Urine Urobilinogen Normal MG/DL (0.0-1.0) Urine Leukocyte Esterase 3+ (NEGATIVE) H Urine RBC 0-2 /HPF (0 - 2) Urine WBC 2-4 /HPF (0 - 2) Urine Squamous Epithelial Cells Few /LPF (NONE/OCC) Urine Triple Phosphate Crystals Moderate /LPF (NONE) H Urine Bacteria Few /HPF (NONE) Arterial Blood pH 7.392 (7.350-7.450) Arterial Blood Partial Pressure CO2 23.2 mmHg (35.0-45.0) *L Arterial Blood Partial Pressure O2 75.8 mmHg (75.0-100.0) Arterial Blood HCO3 13.8 mmol/L (22.0-26.0) *L Arterial Blood Oxygen Saturation 93.3 % (95-100) L Arterial Blood Base Excess -9.6 (-2-2) *L Ray Test Positive Test 12/16/18 19:00 D-Dimer Pending Lactic Acid Level Pending Troponin I Pending Microbiology Date/Time Source Procedure Growth Status 12/16/18 15:30 Rectum Received Height (Feet): 5 Height (Inches): 4.00 Weight (Pounds): 170 Medications Current Medications Medications (Trade) Dose Ordered Sig/Wayne Route PRN Reason Start Time Stop Time Status Last Admin Dose Admin Amikacin Protocol (Amikacin pharmacy to dose) 1 ea DAILY PRN MISC Per rx protocol 12/16/18 16:00 01/15/19 15:59 Cefepime HCl 2 gm/ Dextrose 55 ml @ 110 mls/hr Q24H IVPB 12/17/18 11:00 12/24/18 10:59 Dextrose (Dextrose 50%) 25 ml Q30M PRN IV Hypoglycemia 12/16/18 17:15 01/15/19 17:14 Dextrose (Dextrose 50%) 50 ml Q30M PRN IV Hypoglycemia 12/16/18 17:15 01/15/19 17:14 Insulin Aspart (NovoLOG) Q6HR SUBQ 12/16/18 18:00 01/15/19 17:59 Metronidazole 100 ml @ 100 mls/hr Q8HR IVPB 12/16/18 22:00 12/23/18 21:59 Norepinephrine Bitartrate 4 mg/ Dextrose 250 ml @ 0 mls/hr Q24H IV 12/16/18 16:45 01/15/19 16:44 12/16/18 18:21 Vancomycin HCl (Vanco rx to dose) 1 ea DAILY PRN MISC Per rx protocol 12/16/18 16:00 01/15/19 15:59 Assessment/Plan Problem List: (1) Severe sepsis Assessment & Plan: Febrile, Leukocytosis, Lactic Acidosis abnormal labs critically ill and in ICU on pressors needs central line emergently family consented line placed IV fluids resuscitation IV abx PPI BIPAP, DNR/DNI wound care trend labs am cxr thank you ICD Codes: A41.9 - Sepsis, unspecified organism; R65.20 - Severe sepsis without septic shock SNOMED: 61164080 (2) Septic shock ICD Codes: A41.9 - Sepsis, unspecified organism; R65.21 - Severe sepsis with septic shock SNOMED: 98149408 (3) Protein-calorie malnutrition, moderate ICD Codes: E44.0 - Moderate protein-calorie malnutrition SNOMED: 625629144 (4) Sacral decubitus ulcer, stage IV Assessment & Plan: Pt presented on admission with multiple pressure injuries. Full thickness wound distal eliezer R tibia. Wound has irregular borders. Base of wound has 100% firm,thick yellow slough. Marginal erythema along borders. No odor or exudate noted. Periwound without erythema or induration.(L)11cm x (W) 5cm. Sacral pressure injury wound bed is 100% necrotic sloth and dry with surrounding black and slightly indurated borders. Wound measures (L)8cm x (W) 7cm in entirety , Necrotic area is (L)4cm x (W)3.5cm. Mild odor noted from sacral wound. R heel pressure injury has an area that is serous filled(L01.2cm x (W)1.5cm with surrounding maroon discoloration with fluctuance.(L)4.3cm x (W)6.2cm. R heel pressure injury necrotic at medial aspect(L)4cm x (W)3.5cm, with surrounding maroon discoloration extending into plantar aspect of R heel (L)8cm x (W)7cm . Pt has Bilat foot drop. Small dry brown discoloration noted to L earlobe. No erythema noted. Tx.Plan: Cleanse sacral wound with saline. Apply Dakin's moist Gauze. Apply Moisture Barrier periwound. Cover with Optifoam drsg. Change Twice daily and prn. Swab R and L heels with Betadine. Cover each heel with Optifoam drsg. Change every 3 days and prn. Swab Wound R tibia with Betadine. Cover with Optifoam drsg. Change every 3 days and prn. APM/LOU Mattress overlay. Reposition at least every 2 hours or as tolerated. Off-load heels with pillow. ICD Codes: L89.154 - Pressure ulcer of sacral region, stage 4 SNOMED: 353851266, [id number] Akhil Jackson Dec 16, 2018 19:31
--- NOTE | 2018-12-16 19:36 | Operative Note - PDOC ---
Operative Note Operative Note Date of Operation/Procedure: Dec 16, 2018 Pre-op Diagnosis: septic shock severe sepsis leukocytosis lactic acidosis hypotensive on pressors Procedure: Right femoral central venous catheter insertion Post-op Diagnosis: same as pre-op Surgeon: Akhil Jackson MD Anesthesia: local Specimen: none Complications: none Condition: unstable Estimated Blood Loss: minimal Drains: none Implant(s) used?: No Indications for Procedure Please refer to consult note septic on pressors needs fluids, meds, pressors central line indicated and recommended family at bedside and consented Description of Procedure [facility] Central Line Insertion Practices were implemented by practicing physician starting with the first handwash prior to starting sterile technique. A time out was performed. My hands were washed immediately prior to the procedure. I wore a surgical cap, mask with protective eyewear, sterile gown and sterile gloves throughout the procedure. The RIGHT inguinal region was prepped using chlorhexidine scrub and draped in sterile fashion using a full drape and sterile probe cover employed. The femoral pulse was identified. Anesthesia was achieved using 1% lidocaine. Palpating the femoral pulse throughout the procedure, the introducer needle was inserted medial to the femoral artery, inferior to the inguinal crease and into the femoral vein. Venous blood was withdrawn. The syringe was removed and a guidewire was advanced into the introducer needle. A small incision was made at the skin surface with a scalpel and the introducer needle was exchanged for a dilator over the guidewire. After appropriate dilation was obtained, the dilator was exchanged over the wire for a _ central venous catheter. The wire was removed and the catheter was sutured in place at _ cm. A sterile sorbaview shield was placed over the catheter at the insertion site. The patient tolerated the procedure without any hemodynamic compromise. At time of procedure completion, all ports aspirated and flushed properly. Estimated blood loss is 2cc. Akhil Jackson Dec 16, 2018 19:36
--- NOTE | 2018-12-16 19:40 | NUR ---
NURSE NOTES: called Dr. Kwok regarding patient received with Temp 102.1 axillary cooling measure provided, gave Tylenol order noted and carried out.
[2018-12-16] MEDS ORDERED: Acetaminophen 650mg/20.3ml GT PRN (19:45)
--- NOTE | 2018-12-16 20:05 | History and Physical ---
History of Present Illness General Date patient seen: Dec 16, 2018 Reason for Hospitalization: Severe sepsis Present Illness HPI This is a 78-year-old female with a past medical history of diabetes mellitus type 2, hypertension, CVA, advanced dementia, dysphagia status post PEG tube, with recurrent admissions for hospital-acquired pneumonia pneumonia presenting with 1 day history of fever, tachycardia, increased respiratory distress. The patient was recently discharged from [facility] for sepsis secondary to hospital-acquired pneumonia And was sent to long term facility to complete a 7-day course of cefepime Flagyl and vancomycin. Patient was discharged to long term facility on 11/30/2018. further subjective history unable to be obtained as patient is nonverbal at baseline. In the ER the patient had a temperature up to 102.4 pulse 135 respirations 35 blood pressure 100/64. Her WBC was 26,000, lactate up to 8.6 trending to 11. Troponin +0.069. proBNP 3300. Chest x-ray was improved compared to prior chest x-ray. Urinalysis showed 3+ leukoesterase but negative WBCs. The patient was hypoxic and in respiratory distress so she was placed on BiPAP. She was started on cefepime vancomycin and Flagyl. She then became hypotensive and was given a total of 3 L IV fluids however her blood pressure continued to be low. She was started on dopamine and admitted to the ICU. Allergies: No known drug allergies Medictions: reviewed Past medical history: See HPI Past surgical history: Gtube Family history: Unable to obtain as patient is nonverbal Social history unable to obtain as patient is nonverbal Allergies: Coded Allergies: No Known Allergies (Unverified , 02/04/17) Medication History Scheduled Acetaminophen* (Acetaminophen 325MG Tablet*), 650 MG ORAL 0.5-1HR BEFORE TX, ( Reported) Acetylcysteine* (Acetylcysteine*), 100 MG HHN Q4H, (Reported) Ascorbic Acid* (Ascorbic Acid*), 500 MG GT DAILY, (Reported) Aspirin* (Aspirin*), 81 MG GT ONCE A DAY, (Reported) Atorvastatin Calcium* (Atorvastatin Calcium*), 40 MG GT BEDTIME, (Reported) Cefepime Hcl/Dextrose, Iso-Osm (Cefepime 1 Gm Injection), 1 GM IV DAILY Cran/Vitc/Mannose/Inulin/Brom (Uti-Stat Liquid), 30 ML GT DAILY, (Reported) Docusate Sodium* (Docusate Sodium*), 100 MG GT TWICE A DAY, (Reported) Ergocalciferol (Vitamin D2)* (Vitamin D*), 5,000 UNIT GT ONCE A WEEK, (Reported) Famotidine (Famotidine), 20 MG GT DAILY, (Reported) Fish Oil (Fish Oil 1,000 mg Capsule), 2,000 MG GT BID, (Reported) Fluconazole (Fluconazole), 100 MG ORAL DAILY Furosemide* (Lasix*), 20 MG GT DAILY Heparin Sod (Porcine) (Heparin Sodium*), 5,000 UNITS SUBQ EVERY 12 HOURS Insulin Aspart (Novolog Flexpen), 9 UNITS SUBQ NOVOTIAC Insulin Detemir (Levemir Flexpen), 30 UNITS SUBQ BEDTIME Lactobacillus Rhamnosus Gg* (Culturelle*), 1 CAP GT ONCE A DAY, (Reported) Metformin Hcl* (Metformin Hcl*), 500 MG GT TWICE A DAY, (Reported) Metoprolol Tartrate* (Metoprolol Tartrate*), 12.5 MG GT EVERY 12 HOURS, ( Reported) Metronidazole* (Flagyl*), 500 MG ORAL THREE TIMES A DAY Multivitamin Liquid* (Multi-Delyn*), 5 ML GT DAILY, (Reported) Vancomycin/Water For Inj (Vancomycin 1.5 Gram/300 ml Bag), 1 GM IV q24 Zinc Sulfate (Zinc Sulfate*), 220 MG GT DAILY, (Reported) Scheduled PRN Acetaminophen* (Acetaminophen*), 480 MG GT Q6H PRN for Mild Pain/Temp > 100.5, ( Reported) Bisacodyl (Bisacodyl), 10 MG RC DAILY PRN for Constipation, (Reported) Diphenhydramine Hcl* (Diphenhydramine Hcl*), 25 MG GT Q6H PRN for Itching, ( Reported) Ipratropium/Albuterol Sulfate (Iprat-Albut 0.5-3(2.5) Mg/3 Ml), 3 ML IH Q6HR PRN for Shortness of Breath, (Reported) Magnesium Hydroxide* (Milk Of Magnesia*), 30 ML GT DAILY PRN for Constipation, ( Reported) Na Phos,M-B/Na Phos,Di-Ba* (Fleet Enema*), 133 ML RECTAL DAILY PRN for Constipation, (Reported) Patient History Healthcare decision maker Son Resuscitation status Do Not Resuscitate Advanced Directive on File Yes Review of Systems ROS Narrative Unable to be obtained as patient is nonverbal at baseline Physical Exam General Appearance: WD/WN, no apparent distress, severe distress Lines, tubes and drains: peripheral HEENT: normocephalic, atraumatic, anicteric, mucous membranes moist Neck: non-tender, normal alignment Respiratory/Chest: chest wall non-tender, other - Coarse breath sounds bilaterally Cardiovascular/Chest: normal peripheral pulses, regular rhythm, other - Tachycardic, no murmurs or rubs Abdomen: normal bowel sounds, non tender, other - Slightly distended. PEG tube intact. Area is clean dry and intact Genitourinary/Rectal: other - Chronic Nunez in place. Extremities: normal range of motion, non-tender, normal inspection Skin Exam: other - Stage IV sacral decubitus ulcer with slight drainage. Multiple wounds on extremities bilaterally Neurologic: hand quilter II-XII grossly normal, other - Left-sided weakness. Right- sided gaze. Nonverbal. Withdraws to pain in all 4 extremities Lymphatic: anterior cervical - No lymphadenopathy bilaterally Last 24 Hour Vital Signs Date Time Temp Pulse Resp B/P (MAP) Pulse Ox O2 Delivery O2 Flow Rate FiO2 12/16/18 19:00 116 26 96 Facial 40 12/16/18 19:00 120 26 94/43 (60) 98 12/16/18 18:50 95/43 12/16/18 18:45 118 26 95/45 (62) 98 12/16/18 18:40 91/44 12/16/18 18:30 119 26 88/47 (61) 98 12/16/18 18:21 94/43 12/16/18 18:15 98.8 120 26 90/54 (66) 97 12/16/18 18:00 120 26 94/43 (60) 98 12/16/18 17:30 119 27 92/49 (63) 97 12/16/18 17:17 119 25 97 Facial 40 12/16/18 17:00 120 27 87/54 (65) 97 12/16/18 16:54 Bi-pap 40.0 12/16/18 16:30 40 12/16/18 16:30 97.3 123 27 70/46 (54) 97 12/16/18 16:23 Bi-pap 40.0 12/16/18 16:15 99.8 130 16 96/55 96 Bi-pap 40 12/16/18 15:50 99.8 128 32 96/55 100 Bi-pap 40 12/16/18 15:30 138 40 97/49 100 Bi-pap 40 12/16/18 15:15 131 29 100 Facial 35 12/16/18 15:15 113/53 12/16/18 15:15 135 39 113/53 100 Bi-pap 40 12/16/18 15:00 135 39 110/51 100 Bi-pap 40 12/16/18 15:00 110/51 12/16/18 14:45 138 40 101/46 100 Bi-pap 40 12/16/18 14:32 73/45 12/16/18 14:30 130 37 89/44 100 Bi-pap 40 12/16/18 14:00 132 39 71/45 100 Bi-pap 12/16/18 13:45 135 38 68/44 96 Bi-pap 12/16/18 13:30 133 38 53/40 96 Bi-pap 12/16/18 13:20 135 35 67/42 Bi-pap 12/16/18 13:11 130 39 96 Facial 35 12/16/18 13:00 99.6 12/16/18 13:00 136 37 91/59 Bi-pap 12/16/18 12:22 35 12/16/18 12:00 134 35 139/70 Bi-pap 12/16/18 11:40 132 32 96 Facial 35 12/16/18 11:00 102.4 135 35 100/64 Nasal Cannula 2.0 12/16/18 10:40 98.0 138 37 101/64 Nasal Cannula 2.0 12/16/18 10:40 135 38 Nasal Cannula 2.0 12/16/18 10:29 100.6 140 20 90/50 (63) 98 2.0 Laboratory Tests Test 12/16/18 10:40 12/16/18 10:45 12/16/18 13:30 12/16/18 16:39 White Blood Count 26.1 K/UL (4.8-10.8) *H Red Blood Count 4.31 M/UL (4.20-5.40) Hemoglobin 13.5 G/DL (12.0-16.0) Hematocrit 41.7 % (37.0-47.0) Mean Corpuscular Volume 97 FL (80-99) Mean Corpuscular Hemoglobin 31.2 PG (27.0-31.0) H Mean Corpuscular Hemoglobin Concent 32.3 G/DL (32.0-36.0) Red Cell Distribution Width 14.4 % (11.6-14.8) Platelet Count 370 K/UL (150-450) Mean Platelet Volume 6.9 FL (6.5-10.1) Neutrophils (%) (Auto) % (45.0-75.0) Lymphocytes (%) (Auto) % (20.0-45.0) Monocytes (%) (Auto) % (1.0-10.0) Eosinophils (%) (Auto) % (0.0-3.0) Basophils (%) (Auto) % (0.0-2.0) Differential Total Cells Counted 100 Neutrophils % (Manual) 90 % (45-75) H Lymphocytes % (Manual) 4 % (20-45) L Monocytes % (Manual) 2 % (1-10) Eosinophils % (Manual) 0 % (0-3) Basophils % (Manual) 0 % (0-2) Band Neutrophils 4 % (0-8) Platelet Estimate Adequate Platelet Morphology Normal Polychromasia 1+ Anisocytosis 1+ Prothrombin Time 10.5 SEC (9.30-11.50) Prothromb Time International Ratio 1.0 (0.9-1.1) Activated Partial Thromboplast Time 29 SEC (23-33) Sodium Level 143 MMOL/L (136-145) Potassium Level 5.1 MMOL/L (3.5-5.1) Chloride Level 102 MMOL/L (98-107) Carbon Dioxide Level 27 MMOL/L (21-32) Anion Gap 14 mmol/L (5-15) Blood Urea Nitrogen 51 mg/dL (7-18) H Creatinine 1.8 MG/DL (0.55-1.30) H Estimat Glomerular Filtration Rate mL/min (>60) Glucose Level 261 MG/DL (74-106) H Lactic Acid Level 8.60 mmol/L (0.4-2.0) H 11.00 mmol/L (0.66-2.22) H Calcium Level 10.5 MG/DL (8.5-10.1) H Phosphorus Level 3.6 MG/DL (2.5-4.9) Magnesium Level 2.2 MG/DL (1.8-2.4) Total Bilirubin 0.6 MG/DL (0.2-1.0) Aspartate Amino Transf (AST/SGOT) 22 U/L (15-37) Alanine Aminotransferase (ALT/SGPT) 15 U/L (12-78) Alkaline Phosphatase 86 U/L (46-116) Total Creatine Kinase 53 U/L (26-308) Creatine Kinase MB < 0.5 NG/ML (0.0-3.6) Creatine Kinase MB Relative Index Troponin I 0.069 ng/mL (0.000-0.056) Pro-B-Type Natriuretic Peptide 3321 pg/mL (0-125) H Total Protein 9.1 G/DL (6.4-8.2) H Albumin 2.8 G/DL (3.4-5.0) L Globulin 6.3 g/dL Albumin/Globulin Ratio 0.4 (1.0-2.7) L Urine Color Yellow Urine Appearance Cloudy Urine pH 9 (4.5-8.0) Urine Specific Baldwin 1.015 (1.005-1.035) Urine Protein 3+ (NEGATIVE) H Urine Glucose (UA) Negative (NEGATIVE) Urine Ketones Negative (NEGATIVE) Urine Blood Negative (NEGATIVE) Urine Nitrite Negative (NEGATIVE) Urine Bilirubin Negative (NEGATIVE) Urine Urobilinogen Normal MG/DL (0.0-1.0) Urine Leukocyte Esterase 3+ (NEGATIVE) H Urine RBC 0-2 /HPF (0 - 2) Urine WBC 2-4 /HPF (0 - 2) Urine Squamous Epithelial Cells Few /LPF (NONE/OCC) Urine Triple Phosphate Crystals Moderate /LPF (NONE) H Urine Bacteria Few /HPF (NONE) Arterial Blood pH 7.392 (7.350-7.450) Arterial Blood Partial Pressure CO2 23.2 mmHg (35.0-45.0) *L Arterial Blood Partial Pressure O2 75.8 mmHg (75.0-100.0) Arterial Blood HCO3 13.8 mmol/L (22.0-26.0) *L Arterial Blood Oxygen Saturation 93.3 % (95-100) L Arterial Blood Base Excess -9.6 (-2-2) *L Ray Test Positive Test 12/16/18 19:00 D-Dimer Pending Lactic Acid Level Pending Troponin I Pending Microbiology Date/Time Source Procedure Growth Status 12/16/18 15:30 Rectum Received Height (Feet): 5 Height (Inches): 4.00 Weight (Pounds): 170 Medications Current Medications Medications (Trade) Dose Ordered Sig/Wayne Route PRN Reason Start Time Stop Time Status Last Admin Dose Admin Acetaminophen (Tylenol) 500 mg Q6H PRN GT Temp > 100.4 12/16/18 19:45 01/15/19 19:44 Amikacin Protocol (Amikacin pharmacy to dose) 1 ea DAILY PRN MISC Per rx protocol 12/16/18 16:00 01/15/19 15:59 Cefepime HCl 2 gm/ Dextrose 55 ml @ 110 mls/hr Q24H IVPB 12/17/18 11:00 12/24/18 10:59 Dextrose (Dextrose 50%) 25 ml Q30M PRN IV Hypoglycemia 12/16/18 17:15 01/15/19 17:14 Dextrose (Dextrose 50%) 50 ml Q30M PRN IV Hypoglycemia 12/16/18 17:15 01/15/19 17:14 Insulin Aspart (NovoLOG) Q6HR SUBQ 12/16/18 18:00 01/15/19 17:59 Metronidazole 100 ml @ 100 mls/hr Q8HR IVPB 12/16/18 22:00 12/23/18 21:59 Norepinephrine Bitartrate 4 mg/ Dextrose 250 ml @ 0 mls/hr Q24H IV 12/16/18 16:45 01/15/19 16:44 12/16/18 18:21 Vancomycin HCl (Vanco rx to dose) 1 ea DAILY PRN MISC Per rx protocol 12/16/18 16:00 01/15/19 15:59 Assessment/Plan Problem List: (1) Septic shock ICD Codes: A41.9 - Sepsis, unspecified organism; R65.21 - Severe sepsis with septic shock SNOMED: 19941083 (2) Toxic metabolic encephalopathy ICD Codes: G92 - Toxic encephalopathy SNOMED: 256171031 (3) Lactic acid acidosis ICD Codes: E87.2 - Acidosis SNOMED: 33781740 (4) Elevated troponin ICD Codes: R74.8 - Abnormal levels of other serum enzymes SNOMED: 619645327, 521181402 (5) DM (diabetes mellitus) ICD Codes: E11.9 - Type 2 diabetes mellitus without complications SNOMED: 65835162 (6) HTN (hypertension) ICD Codes: I10 - Essential (primary) hypertension SNOMED: 52507768 (7) Sacral decubitus ulcer, stage IV ICD Codes: L89.154 - Pressure ulcer of sacral region, stage 4 SNOMED: 259842380, 753242892 Assessment/Plan: A 78-year-old female with a history of CVA status post PEG who is baseline nonverbal, diabetes, hypertension, CAD, with recurrent pneumonias presenting with shock suspected sepsis, acute hypoxic respiratory failure. #Shock, suspect sepsis. Unclear source at this time differential includes developing pneumonia, infected sacral wound, intra-abdominal sepsis. #Acute on chronic hypoxic respiratory failure. Differential includes pneumonia , possible pulmonary embolism #Toxic metabolic encephalopathy secondary to sepsis #Lactic acidosis secondary to septic shock > S/p 3L fluids in ER -Admit to ICU -BiPAP PRN to keep sats greater than 2% -ABG PRN -F/u Sputum culture -Blood cultures x2 -Follow-up urine culture -Trend lactate -check D-Dimer, venous duplex US of LE. Consider heparin drip if positive -Holding off on further fluids as patient having worsening respiratory failure and is DNR/DNI. -Levophed, titrate to MAP >65 -Vancomycin per pharmacy (12/16 - ) -Cefepime (12/16 - ) -Flagyl (12/16 - ) -Amikacin (12/16 - ) -Appreciate infectious disease recommendations: Dr. Solis -Appreciate pulmonology recommendations: Dr. Milner -Titrate SPO2 to greater than 92% -Duo nebs and Mucomyst every 4 hours ATC -Pulmonary hygiene #elevated troponin, suspect 2/2 demand ischemia #elevated proBNP -continue to trend -asa -2d Echo -appreciate cardiology recommendations: Dr. Guardado #KEL secondary to sepsis -IV fluids as above -continue to trend -avoid nephrotoxins #Diabetes mellitus type 2 -Levemir 10 units subc nightly (reduced from 30 units) -NovoLog 9 units 3 times daily AC -Sliding scale insulin -Accu-Cheks Q6hr -Hypoglycemia protocol #Sacral decubitus ulcer, present on admission #Chronic indwelling Nunez for wound healing -Appreciate wound care consult -Appreciate general surgery recommendations: Dr. Jackson -Zinc 220 mg NG daily -Continue Nunez on discharge for sacral decubitus ulcer healing #Advanced dementia, end stage #history of CVA #Goals of care -Spent 35 minutes today discussing goals of care with the patient's brother Mitul Archibald. Unable to speak with healthcare decision-maker Ryan Cristela at this time. Mr. Archibald would like to continue DNR/DNI. At this time does not want hospice. Would like to continue full treatment including placing a central line or other invasive procedures to support the patient. -Social work consult for hospice discussion #HTN #History of CAD -Continue aspirin 81 mg p.o. daily Continue atorvastatin 40 mg p.o. nightly -Hold metoprolol 12.5 mg p.o. every 12 hours due to septic shock FENPPX DVTPPX: Heparin SBQ GI PPX: protonix Fluids: no further fluids Diet: Tube feeding. Trickle feeds. Lines: Pending central line PT/OT: pending Time of my involvement, the patient's condition was critical with high potential for and/or physiologic deterioration secondary to septic shock, acute hypoxic respiratory failure, severe lactic acidosis as delineated in the note above. On the above date of service, I spent a total of 40 minutes in the ICU evaluating, managing, and providing critical care services to this patient, including time spent documenting these activities, counseling patient/family, and coordinating care. Critical care services performed include: -Telemetry review -Hemodynamic measurement interpretation -Laboratory data review and interpretation -Ventilator setting reviewed, management, and adjustment -Discussion of care plans with patient, family, and/or surrogate decision makers -Discussion of patient's care with primary medical team, surgical team, and/or consulting service -Decision to obtain further radiologic evaluation, after consideration of the risk/benefit ratio -Discussion of patient's CODE STATUS and further advancement towards the ultimate goals of care. Plan outlined above discussed with patient/family, HAND RIVETER, ICU team, and involved physician/consultants. An additional 35 minutes spent discussing goals of care with the family as detailed above. Parviz Kwok D.O. Dec 16, 2018 20:05
--- NOTE | 2018-12-16 20:45 | NUR ---
NURSE NOTES: Titrate Levophed drip to 22mcg/min BP 43/24.durability technician at bedside for venous duplex, warehousing technician removed bp cuff, Nurse placed the BP cuff back and spoke with warehousing technician not removed the bp cuff to monitor patient blood pressure.
[2018-12-16] MEDS ORDERED: Atorvastatin 20mg tab GT SCH (21:00)
[2018-12-16] MEDS ORDERED: Levemir Flexpen SUBQ SCH (21:00)
[2018-12-16] MEDS: Aspirin Baby 81mg GT SCH (21:11)
--- NOTE | 2018-12-16 21:22 | Diagnostic Imaging Report ---
Indication: Bilateral lower extremity swelling Technique: Grayscale and duplex Doppler imaging of the veins in both lower extremities performed in real time utilizing compression and augmentation. Comparison: None Findings: Duplex Doppler interrogation of the veins in both lower extremity is performed from the common femoral vein to the popliteal vein. Normal venous compressibility demonstrated throughout. No thrombus identified. Waveform analysis shows good respiratory phasicity and augmentation. IMPRESSION: No evidence of deep venous thrombosis involving the lower extremities.
[2018-12-16] MEDS ORDERED: Dyna-Hex 2% Top Sol 2oz TOPIC ONE (22:00)
--- NOTE | 2018-12-16 22:00 | NUR ---
NURSE NOTES: Turned and repositioned patient. oral care provided. Titrate Levophed drip to 26mcg/min BP 96/46.
[2018-12-16] MEDS ORDERED: Heparin 5000 units/ml inj IV ONE (22:15)
[2018-12-16] MEDS ORDERED: Heparin 25,000u/D5W 500ml 500 ML IV SCH (22:15)
--- NOTE | 2018-12-16 22:56 | NUR ---
given late due to waiting for the label. cloth mercerizing supervisor no access to open the door to get the label for Heparin. Heparin admin not scanned. charge nurse aware
[2018-12-17] VITALS (40 sets, daily range): BP systolic 34–163; BP diastolic 11–53
--- NOTE | 2018-12-17 | NUR ---
NURSE NOTES: Bed bath given tolerated well. Continue on Heparin drip at 18units/kg/hr and Levophed drip at 26mcg/min BP 100/48. Frequent visual checks continued. GT intact no residual. NPO.
[2018-12-17] MEDS: Norepinephrine Bitartrate 8 MG in D5W 500ml 492 ML IV SCH ×3 (00:06→09:29)
[2018-12-17] MEDS: NovoLOG Insulin Flexpen SUBQ SCH ×3 (00:13→12:47)
--- NOTE | 2018-12-17 01:15 | NUR ---
NURSE NOTES: Continue on Heparin drip at 18units/kg/hr and Titrate Levophed drip to 28mcg/min BP 88/48. Frequent visual checks continued
--- NOTE | 2018-12-17 01:45 | Consultation ---
DATE OF CONSULTATION: 12/16/2018 CARDIOLOGY CONSULTATION CONSULTING PHYSICIAN: José Miguel Guardado M.D. REFERRING PHYSICIAN: Yamileth Yates M.D. REASON FOR CONSULTATION: Hypotension and tachycardia. HISTORY OF PRESENT ILLNESS: This is a 78-year-old lady with history of hypertension and prior CVA as well as history of recurrent respiratory failure and pneumonia as well as history of G-tube, who was brought back to the emergency room for fever, hypotension, lactic acidosis, and marked leukocytosis. No further information is obtainable from the patient. The patient was started on Levophed to intensive care unit. The patient just had undergone a central line placement by Dr. Jackson as the patient is on Levophed her blood pressure. The patient was also tachycardic with heart rate in the 130s. REVIEW OF SYSTEMS: Cannot be obtained. PAST MEDICAL HISTORY: As mentioned above. FAMILY HISTORY: Noncontributory. SOCIAL HISTORY: She is a [facility] resident. Does not smoke or drink alcohol. PHYSICAL EXAMINATION: VITAL SIGNS: Show blood pressure of 94/43, pulse is 120, respirations 26. HEAD AND NECK: She is on BiPAP. LUNGS: Have decreased breath sounds. CARDIOVASCULAR: Shows tachycardic. S1 and S2 with no gallop. ABDOMEN: Soft. Status post G-tube. EXTREMITIES: Have no pitting edema with heel ulcers. LABORATORY DATA: Her labs show a white count of 26.1, hematocrit 13.5, hematocrit 41.7, and platelet count of 370. Sodium is 142, potassium 5.1, BUN of 15, creatinine 1.8, and glucose of 261. Lactic acid is 11. Troponin 0.069. BNP 3321. ASSESSMENT AND PLAN: 1. Hypotension due to septic shock in view of lactic acid of 11 and white count of 26,000. The patient already on broad-spectrum IV antibiotics as well as IV fluids as well as Levophed. 2. Tachycardia again due to septic shock. 3. Dehydration as the patient is azotemic. 4. Elevated troponin of 0.06. We will completely rule out myocardial infarction protocol. The patient is DNR and DNI. Cannot use beta-nisreen in view of hypotension. 5. Possible congestive heart failure. BNP of more than 3000. We will get an echocardiogram for further evaluation and management. 6. Respiratory failure on BiPAP. The patient is DNR, DNI. Further evaluation by Dr. Milner. 7. Dysphagia, status post PEG placement. Followed by Dr. Brown. Thank you very much for allowing me to participate in the care of this patient. Please do not hesitate to contact me if you have any questions regarding my evaluation. José Miguel Guardado M.D. DR: DORIAN JOB#: [id number] CC:
--- NOTE | 2018-12-17 02:00 | Consultation ---
DATE OF CONSULTATION: 12/16/2018 INFECTIOUS DISEASES CONSULTATION CONSULTING PHYSICIAN: Milton Valladares M.D. ATTENDING PHYSICIAN: Yamileth Yates M.D. REFERRING PHYSICIAN: Parviz Kwok D.O. REASON FOR CONSULTATION: Sepsis, shock, fevers, leukocytosis, possible pneumonia, urinary tract infection, and possible infected wound. CHIEF COMPLAINT: The patient's chief complaint coming to the hospital is sepsis, shock, and respiratory distress. HISTORY OF PRESENT ILLNESS: This is a 78-year-old female, who comes to [facility] with sepsis, shock, elevated white count, and fevers. The patient is currently in the ICU, getting fluids. She is on pressors, 10 mcg of norepinephrine. The patient has multiple wounds and the most prominent is right leg and sacral area. The patient has on chest x-ray either CHF or pneumonia. The patient is high risk for aspiration and healthcare-acquired pneumonia based on previous admissions and history of CVA. It is unclear if she has UTI. She does have 3+ leukocyte esterase on UA, however, she only has 0 to 2 white cells. Infectious Diseases consultation requested for antibiotic management in this patient. She also has elevated troponin. She also has elevated BNP. Case was discussed with Dr. Kwok and the ICU nurse in the ICU. The patient will be continued on antibiotics, Vanco, cefepime, Flagyl, and amikacin. She is also in renal failure. MAR was noted. Orders were noted. Notes were reviewed. Again, Infectious Diseases consultation requested for antibiotic management. REVIEW OF SYSTEMS: CONSTITUTIONAL: The patient has generalized weakness and she is poorly responsive. She is on BiPAP, currently short of breath, poorly responsive. She is on pressors. HEAD AND NECK: She is on BiPAP. CARDIAC: She is on pressors. GASTROINTESTINAL: No nausea, vomiting, or diarrhea. She has pasty stools. GENITOURINARY: She has a Nunez. PULMONARY: Shortness of breath, cough, and congestion. No significant secretions. She is on BiPAP. SKIN: No rash noted. NEUROLOGIC: No seizures. She has generalized weakness, poorly responsive. Otherwise, wounds were reviewed and noted. She is nonverbal. No seizure activity. Review of systems is otherwise limited in this patient. PAST MEDICAL HISTORY: The patient's past medical history includes the following. The patient has a past medical history of aspiration pneumonia. She has history of CVA. She has history of respiratory distress and sepsis in the past. She has history of dysphagia, G-tube, and cerebrovascular accident. She has history of being a retirement resident. She has history of encephalopathy. She has history of diabetes. She has history of hypertension. She has a history of dyslipidemia. She has history of wounds. She has diabetes, hypertension, hyperlipidemia as already mentioned, dementia, CVA, encephalopathy, history of dysphagia, recurrent aspiration pneumonitis, and recurrent sepsis. She has history of UTI and pneumonia in the past. She has history of wounds. She has history of encephalopathy. She has history of dementia and CAD. ALLERGIES: She has no known drug allergies. No antibiotic allergies. SOCIAL HISTORY: Negative for smoking, alcohol, or drug abuse. FAMILY HISTORY: Not clear per the records. There is no mention of exposure to tuberculosis or cancer. MEDICATIONS: Upon reviewing the MAR, she is on the following medications. Antibiotic arrieta, she is on cefepime, Flagyl, amikacin, and vancomycin. She is getting pharmacy dose including those antibiotics. She was on dopamine, now she is going to be on norepinephrine 10 mcg. She has been given aggressive IV fluids. Outside medications were noted and reconciliated. She has been on ascorbic acid, aspirin, acetaminophen, bisacodyl, diphenhydramine, docusate, famotidine, fluconazole in the past, furosemide, heparin, metoprolol, metformin, lactobacillus, breathing treatments, and multivitamins. PHYSICAL EXAMINATION: VITAL SIGNS: Temperature 99.8 degrees, pulse rate 130, respiratory rate 16, blood pressure 96/55, saturation 96%, FiO2 40% on BiPAP. Her temperature has been as high as 102.4 degrees and her respiratory rate has been as high as 40. Her blood pressure was in the 60s earlier. GENERAL: Lethargic, weak, and poorly responsive. HEAD AND NECK: Oral exam, no thrush. Eyes exam, no icterus. Normocephalic. Neck is supple. She is on BiPAP. HEART: Regular. No obvious gallop or murmur. Tachycardic. No obvious friction rub. ABDOMEN: Soft. Positive bowel sounds. Some distention with probably decreased bowel sounds. Could not assess tenderness. LUNGS: Bilateral rhonchi, rales, and crackles. SKIN: No rash. MUSCULOSKELETAL: No effusion. Legs without cellulitis. PERIPHERAL VASCULAR: No cyanosis. GENITOURINARY: She has a Nunze. Urine is cloudy. LINES: Line sites without phlebitis. NEUROLOGIC: Generalized weakness, poorly responsive. She has no central line. Wounds were reviewed, most prominent wound is the sacral wound and the right leg wounds both have slough. LABORATORY AND DIAGNOSTIC DATA: Laboratory data is as follows. White count 26.1 and hemoglobin 13.5. Creatinine is 1.8. LFTs were noted and unremarkable. BNP 3321. Lactic acid was 11. Urinalysis had 3+ leukocyte esterase. Cultures are pending. Chest x-ray is noted and reviewed, CHF with possible infiltrates in the bases, may be the upper lobes. However, report is pending at this time. This is my review of the chest x-ray. ASSESSMENT AND PLAN: 1. The patient has sepsis, shock requiring pressors. She is high risk for aspiration pneumonia and healthcare-acquired pneumonia. She has acute renal failure. She could have urinary tract infection. She has leukocytosis, fevers, systemic inflammatory response syndrome criteria, and sepsis shock. The patient also has right leg and sacral wounds, could be possible source of sepsis, have some slough. The patient is at risk for multidrug-resistant organisms. At this time, I agree with vancomycin, cefepime, Flagyl, and amikacin. Continue antibiotics, vancomycin, cefepime, Flagyl, and amikacin for Gram-negative anaerobic coverage. Continue treatment with antibiotics for sepsis, shock, possible pneumonia, urinary tract infection, infected wounds, leukocytosis, fevers, and systemic inflammatory response syndrome criteria. Check cultures, laboratories, and chest x-ray. Continue wound care per Surgery and protocol. Prognosis is poor. Continue pressor support and respiratory support. 2. The patient has multiple wounds. Continue wound care per Surgery and protocol. 3. Acute renal failure. 4. The patient currently is a DNR, but continue other medical treatment. 5. The patient has a history of recurrent aspiration pneumonia. 6. Cerebrovascular accident. 7. Encephalopathy. 8. Gastrostomy tube, dysphagia. 9. Diabetes mellitus. 10. Hypertension. 11. Hyperlipidemia. 12. Blood sugar and blood pressure treatment per primary care team and consultants. 13. Advanced dementia. 14. Coronary artery disease. 15. No known allergies. 16. Social history negative. 17. Family history noncontributory. 18. MAR was noted. 19. Case was discussed with RN. 20. Case discussed with Dr. Kwok. 21. CT scan of the abdomen and pelvis is ordered. 22. Overall poor prognosis. Milton Valladares M.D. DR: Jacque JOB#: [id number] CC: CHRIS
--- NOTE | 2018-12-17 02:30 | NUR ---
NURSE NOTES: Titrate Levophed drip to 30mcg/min BP87/44. Frequent visual checks continued
--- NOTE | 2018-12-17 03:54 | NUR ---
NURSE NOTES: Collected urine culture gave to dev ops engineer.
--- NOTE | 2018-12-17 04:59 | NUR ---
NURSE NOTES: Left message to Dr. Nevarez regarding patient with episode of BP 37/15 HR 47 fi02 60% satting 95% skin cold to touch. Temp 97 axillary. now bp 98/36 HR 119. placed roseline hugger. Patient code status DNR/DNI. will continue to monitor patient.
[2018-12-17 05:33] LABS: HEMATOCRIT 27.2 % (37.0-47.0); HEMOGLOBIN 8.5 G/DL (12.0-16.0); MEAN CORPUSCULAR VOLUME 101 FL (80-99); PLATELET COUNT 132 K/UL (150-450); RED BLOOD COUNT 2.69 M/UL (4.20-5.40); RED CELL DISTRIBUTION WIDTH 15.4 % (11.6-14.8)
--- NOTE | 2018-12-17 05:44 | NUR ---
NURSE NOTES: Called lab spoke with Bridgette associate professor of literacy regarding PTT result still pending.
[2018-12-17 05:50] LABS: WHITE BLOOD COUNT 37.1 K/UL (4.8-10.8)
[2018-12-17 06:29] LABS: PHOSPHORUS 4.7 MG/DL (2.5-4.9)
[2018-12-17 06:31] LABS: ALANINE AMINOTRANSFERASE 12 U/L (12-78); ALBUMIN 1.6 G/DL (3.4-5.0); ALBUMIN/GLOBULIN RATIO 0.4 (1.0-2.7); ALKALINE PHOSPHATASE 77 U/L (46-116); ANION GAP 23 mmol/L (5-15); ASPARTATE AMINO TRANSFERASE 29 U/L (15-37); BILIRUBIN,TOTAL 0.4 MG/DL (0.2-1.0); BLOOD UREA NITROGEN 53 mg/dL (7-18); CALCIUM 7.7 MG/DL (8.5-10.1); CARBON DIOXIDE 13 MMOL/L (21-32); CHLORIDE 107 MMOL/L (98-107); CREATININE 2.1 MG/DL (0.55-1.30); POTASSIUM 4.9 MMOL/L (3.5-5.1); SODIUM 143 MMOL/L (136-145)
--- NOTE | 2018-12-17 07:00 | NUR ---
RESPIRATORY NOTES: Received patient on BIPAP 15/5 FIO2 60%, PS+10, BUR 12 on a facial mask. Patient currently SOB, RR in the high 30s. Tape is in place. No skin breakdown or redness noted. BIPAP plugged into red outlet. Alarms are on and audible. Will continue to monitor.
--- NOTE | 2018-12-17 07:25 | NUR ---
HAND-OFF: Report given to Rae WASHINGTON.
--- NOTE | 2018-12-17 07:26 | NUR ---
NURSE NOTES: Report received from FELIX Zhang. Patient opens eyes spontaneously but eyes do not track. Non-verbal and does not follow commands. No motor activities noted. Sinus rhythm on cardiac monitor technician. On bi-pap 15/5, 60%. O2 sat 100%. Tachypnea in 30's noted. G-tube in place and kept NPO as per order. Nunez in place draining to gravity. Right femoral TLC patent and asymptomatic. On Levophed at 30mcg/min. Pt is on Heparin drip but held for now as per protocol. Bed in lowest position. Side rails up x3. Will resume plan of care.
[2018-12-17] MEDS ORDERED: Heparin 25,000u/D5W 500ml 500 ML IV SCH (07:45)
--- NOTE | 2018-12-17 07:59 | NUR ---
NURSE NOTES: Called and left a message to [facility] for low Hgb and platelet and dark tea urine with some blood clots since patient is on Heparin drip. Dr Cantrell here to see the patient. Notified him that pt had transfusion reaction last night and receive 1.5 unit pRBC. No new orders.
--- NOTE | 2018-12-17 08:12 | NUR ---
NURSE NOTES: Dr Trevizo called back. Notified her regarding pt's current condition including abnormal lab results, elevated WBC/lactic acid and low H/H. Order to continue all the medications including Heparin drip and care received and carried out. CXR is being done at bedside.
--- NOTE | 2018-12-17 09:09 | NUR ---
RADIOLOGY: PCXR COMPLETED 0830HRS. NF
[2018-12-17] MEDS: Aspirin Baby 81mg GT SCH (09:30)
--- NOTE | 2018-12-17 09:53 | Diagnostic Imaging Report ---
Indication: Abdominal pain Technique: Continuous helical transaxial imaging of the abdomen and pelvis was obtained from the lung bases to the pubic symphysis. No intravenous contrast was administered. Coronal 2-D reformats were also obtained. Automatic Exposure Control was utilized. Total Dose length Product (DLP): [address] Dose Index Volume (CTDIvol): 15 mGy Comparison: none Findings: There are mixed interstitial alveolar densities at both lung bases. Findings may be due to scarring or atelectasis. Pneumonia and/or CHF not excluded. The heart is prominent in size. Mild calcification of aorta demonstrated. Gastrostomy noted in good position. There is mild bilateral hydroureteronephrosis. There is no obstructing stone. This may be due to a distended urinary bladder which is distended despite presence of a Nunez catheter which appears to be in good position. In addition within the dependent portion of the bladder lumen there is slightly hyperdense layering material probably blood. Correlate for hematuria. Gallbladder is unremarkable. There is no free fluid. Bones are osteopenic. IMPRESSION: Distended urinary bladder despite the presence of a Nunez catheter which appears to be in good position. Associated bilateral hydronephrosis. Small amount of suspected blood within the bladder lumen. Correlate for hematuria. Patchy infiltrates/pneumonitis and/or CHF at the lung bases. Correlate clinically. Atherosclerotic disease Gastrostomy The CT scanner at [facility] is accredited by the [employer] and the scans are performed using dose optimization techniques as appropriate to a performed exam including Automatic Exposure control.
--- NOTE | 2018-12-17 10:19 | NUR ---
NURSE NOTES: Dr Jackson and Dr Muhammad here to see the patient. Updated Dr Muhammad with pt's current condition. She ordered to continue all current medications and care. Will continue as ordered. No new orders. Will continue to monitor.
--- NOTE | 2018-12-17 10:27 | NUR ---
RD ASSESSMENT & RECOMMENDATIONS SEE CARE ACTIVITY FOR COMPLETE ASSESSMENT DAILY ESTIMATED NEEDS: Needs based on Sepsis, wounds; 57.7 kg 25-35 kcals/kg 1443- 2020 total kcals 1.25-2 g protein/kg 72- 115 g total protein 25-30 mL/kg 1443- 1731 total fluid mLs NUTRITION DIAGNOSIS: 1) Increased kcal and pro needs r/t wound healing and sepsis as evidenced by pt admitted w/ sacral and leg wound; WC eval pending, critically elev WBC 37.1*, elev LA (11.40), elev respiratory rate 38, hypotensive on max pressor support. 2) Swallowing difficulty R/T dysphagia, CVA as evidenced by PEG dependent. CURRENT DIET:NPO ENTERAL NUTRITION RECOMMENDATIONS: Glucerna 1.2 @ 55ml/hr x 24 hrs to provide 1320ml, 1584kcal, 79g prot, 1062ml free water - As medically necessary, begin Glucerna 1.2. - Start at a low rate (20mL/hr), increase by 10mL/hr q4-6 hrs until @ goal rate. - HOB over 30 degrees/ flush per MD. W/ hemodynamic instability, rec trophic feeds of 5-10ml/hr to maintain gut integrity. ADDITIONAL RECOMMENDATIONS: 1) Wound healing: w/ diet order add AYDEE in 4oz water BID + Vit C 250mg BID ( F/up w/ WC eval) 2) F/up w/ H&P 3) TF recs as above as needed 4) Monitor lytes daily, renal labs, need for TF change 5) PER SNF: 127 lbs last wt + 4'10" .
[2018-12-17] MEDS ORDERED: Cefepime HCl 2 GM in D5W 55 ML IVPB SCH (11:00)
--- NOTE | 2018-12-17 11:13 | Surgery Progress Note ---
Surgery Progress Note Subjective Procedure Performed Right femoral central venous catheter insertion Additional Comments Patient seen and examined bedside. Ill-appearing. On pressors. On BiPAP. Prognosis guarded. Labs noted. Objective Last 24 Hour Vital Signs Date Time Temp Pulse Resp B/P (MAP) Pulse Ox O2 Delivery O2 Flow Rate FiO2 12/17/18 10:42 9 39 100 Facial 60 12/17/18 09:30 95 38 91/17 (41) 100 12/17/18 09:29 91/15 12/17/18 09:11 94 40 100 Facial 60 12/17/18 09:00 96 39 95/17 (43) 100 12/17/18 09:00 95/17 12/17/18 08:30 96 32 93/14 (40) 100 12/17/18 08:00 98.9 100 37 95/13 (40) 100 12/17/18 08:00 60.0 40 12/17/18 08:00 95/13 12/17/18 08:00 Bi-pap 12/17/18 07:30 100 36 90/13 (38) 100 12/17/18 07:21 98 35 100 Facial 60 12/17/18 07:00 90/12 12/17/18 07:00 96 32 90/12 (38) 99 12/17/18 06:30 96 32 86/17 (40) 99 12/17/18 06:00 98.8 96 32 86/18 (40) 99 12/17/18 06:00 86/18 12/17/18 05:45 95 31 81/11 (34) 100 12/17/18 05:30 95 26 84/11 (35) 100 12/17/18 05:15 95 26 86/18 (40) 100 12/17/18 05:02 78/38 12/17/18 05:00 78/38 12/17/18 05:00 99 26 163/38 (79) 100 12/17/18 04:48 72 15 94 Facial 60 12/17/18 04:45 85 20 37/15 (22) 96 12/17/18 04:30 116 28 56/22 (33) 96 12/17/18 04:15 114 28 86/37 (53) 96 12/17/18 04:00 97.7 114 25 92/30 (50) 90 12/17/18 04:00 Bi-pap 12/17/18 04:00 92/30 12/17/18 04:00 60.0 40 12/17/18 03:45 114 25 89/45 (60) 90 12/17/18 03:45 110 12/17/18 03:30 114 25 91/45 (60) 97 12/17/18 03:15 117 25 96/41 (59) 97 12/17/18 03:07 120 25 95 Facial 40 12/17/18 03:00 105/53 12/17/18 03:00 116 25 105/53 (70) 97 12/17/18 02:45 116 25 86/35 (52) 97 12/17/18 02:30 116 25 87/44 (58) 97 12/17/18 02:15 116 22 89/46 (60) 97 12/17/18 02:00 95/45 12/17/18 02:00 116 22 95/46 (62) 97 12/17/18 01:45 116 22 92/47 (62) 97 12/17/18 01:30 116 22 89/44 (59) 97 12/17/18 01:15 116 22 88/48 (61) 97 12/17/18 01:05 116 26 96 Facial 40 12/17/18 01:00 116 22 98/45 (62) 97 12/17/18 01:00 98/45 12/17/18 00:45 112 22 100/45 (63) 97 12/17/18 00:30 112 22 95/45 (62) 97 12/17/18 00:15 113 22 102/42 (62) 97 12/17/18 00:06 94/41 12/17/18 00:00 Bi-pap 12/17/18 00:00 109 12/17/18 00:00 40.0 40 12/17/18 00:00 98.8 110 22 100/48 (65) 97 12/17/18 00:00 40 12/16/18 23:59 100/48 12/16/18 23:45 110 22 94/41 (58) 98 12/16/18 23:30 110 22 92/42 (59) 98 12/16/18 23:15 110 22 95/44 (61) 98 12/16/18 23:03 110 22 97 Facial 40 12/16/18 23:00 110 22 93/43 (60) 98 12/16/18 23:00 93/43 12/16/18 22:45 109 22 94/41 (58) 98 12/16/18 22:30 110 22 92/43 (59) 98 12/16/18 22:15 112 22 87/43 (58) 98 12/16/18 22:00 114 26 96/46 (63) 98 12/16/18 22:00 96/46 12/16/18 21:45 114 26 96/42 (60) 98 12/16/18 21:30 114 26 99/41 (60) 98 12/16/18 21:18 88/41 12/16/18 21:15 114 26 88/41 (57) 98 12/16/18 21:00 43/24 12/16/18 20:57 114 23 97 Facial 40 12/16/18 20:45 116 26 43/24 (30) 98 12/16/18 20:27 99.0 12/16/18 20:15 118 26 88/52 (64) 98 12/16/18 20:00 Bi-pap 12/16/18 20:00 118 12/16/18 20:00 88/52 12/16/18 20:00 118 26 88/52 (64) 98 12/16/18 20:00 40 12/16/18 20:00 40.0 40 12/16/18 19:45 102.1 118 26 102/45 (64) 98 12/16/18 19:30 117 26 94/46 (62) 98 12/16/18 19:15 120 26 94/46 (62) 98 12/16/18 19:00 116 26 96 Facial 40 12/16/18 19:00 120 26 94/43 (60) 98 12/16/18 18:50 95/43 12/16/18 18:45 118 26 95/45 (62) 98 12/16/18 18:40 91/44 12/16/18 18:30 119 26 88/47 (61) 98 12/16/18 18:21 94/43 12/16/18 18:15 98.8 120 26 90/54 (66) 97 12/16/18 18:00 120 26 94/43 (60) 98 12/16/18 17:30 119 27 92/49 (63) 97 12/16/18 17:17 119 25 97 Facial 40 12/16/18 17:00 120 27 87/54 (65) 97 12/16/18 16:54 Bi-pap 40.0 12/16/18 16:30 40 12/16/18 16:30 97.3 123 27 70/46 (54) 97 12/16/18 16:23 Bi-pap 40.0 12/16/18 16:15 99.8 130 16 96/55 96 Bi-pap 40 12/16/18 15:50 99.8 128 32 96/55 100 Bi-pap 40 12/16/18 15:30 138 40 97/49 100 Bi-pap 40 12/16/18 15:15 131 29 100 Facial 35 12/16/18 15:15 113/53 12/16/18 15:15 135 39 113/53 100 Bi-pap 40 12/16/18 15:00 135 39 110/51 100 Bi-pap 40 12/16/18 15:00 110/51 12/16/18 14:45 138 40 101/46 100 Bi-pap 40 12/16/18 14:32 73/45 12/16/18 14:30 130 37 89/44 100 Bi-pap 40 12/16/18 14:00 132 39 71/45 100 Bi-pap 12/16/18 13:45 135 38 68/44 96 Bi-pap 12/16/18 13:30 133 38 53/40 96 Bi-pap 12/16/18 13:20 135 35 67/42 Bi-pap 12/16/18 13:11 130 39 96 Facial 35 12/16/18 13:00 99.6 12/16/18 13:00 136 37 91/59 Bi-pap 12/16/18 12:22 35 12/16/18 12:00 134 35 139/70 Bi-pap 12/16/18 11:40 132 32 96 Facial 35 I&O Intake and Output 12/16/18 12/17/18 19:00 07:00 Intake Total 3895.28 ml 1488.67 ml Output Total 660 ml 255 ml Balance 3235.28 ml 1233.67 ml Intake Oral 0 ml IV Total 3895.28 ml 1488.67 ml Output Urine Total 660 ml 255 ml # Bowel Movements 7 3 Dressing: saturated Wound: other Drains: other Cardiovascular: RSR Respiratory: decreased breath sounds Abdomen: soft, present bowel sounds, non-distended Extremities: no cyanosis, other Laboratory Tests Test 12/16/18 13:30 12/16/18 16:39 12/16/18 19:00 12/16/18 22:15 Lactic Acid Level 11.00 mmol/L (0.66-2.22) H 10.40 mmol/L (0.4-2.0) H 10.90 mmol/L (0.66-2.22) H Arterial Blood pH 7.392 (7.350-7.450) Arterial Blood Partial Pressure CO2 23.2 mmHg (35.0-45.0) *L Arterial Blood Partial Pressure O2 75.8 mmHg (75.0-100.0) Arterial Blood HCO3 13.8 mmol/L (22.0-26.0) *L Arterial Blood Oxygen Saturation 93.3 % (95-100) L Arterial Blood Base Excess -9.6 (-2-2) *L Ray Test Positive Activated Partial Thromboplast Time 35 SEC (23-33) H D-Dimer 7.86 mg/L FEU (0.00-0.49) H Troponin I 0.071 ng/mL (0.000-0.056) Test 12/17/18 05:00 White Blood Count 37.1 K/UL (4.8-10.8) *H Red Blood Count 2.69 M/UL (4.20-5.40) L Hemoglobin 8.5 G/DL (12.0-16.0) #L Hematocrit 27.2 % (37.0-47.0) #L Mean Corpuscular Volume 101 FL (80-99) H Mean Corpuscular Hemoglobin 31.7 PG (27.0-31.0) H Mean Corpuscular Hemoglobin Concent 31.4 G/DL (32.0-36.0) L Red Cell Distribution Width 15.4 % (11.6-14.8) H Platelet Count 132 K/UL (150-450) #L Mean Platelet Volume 8.7 FL (6.5-10.1) Neutrophils (%) (Auto) % (45.0-75.0) Lymphocytes (%) (Auto) % (20.0-45.0) Monocytes (%) (Auto) % (1.0-10.0) Eosinophils (%) (Auto) % (0.0-3.0) Basophils (%) (Auto) % (0.0-2.0) Differential Total Cells Counted 100 Neutrophils % (Manual) 77 % (45-75) H Lymphocytes % (Manual) 3 % (20-45) L Monocytes % (Manual) 7 % (1-10) Eosinophils % (Manual) 2 % (0-3) Basophils % (Manual) 0 % (0-2) Band Neutrophils 11 % (0-8) H Nucleated Red Blood Cells 2 /100 WBC Platelet Estimate Decreased L Platelet Morphology Normal Anisocytosis 1+ Activated Partial Thromboplast Time > 150 SEC (23-33) *H Sodium Level 143 MMOL/L (136-145) Potassium Level 4.9 MMOL/L (3.5-5.1) Chloride Level 107 MMOL/L (98-107) Carbon Dioxide Level 13 MMOL/L (21-32) L Anion Gap 23 mmol/L (5-15) H Blood Urea Nitrogen 53 mg/dL (7-18) H Creatinine 2.1 MG/DL (0.55-1.30) H Estimat Glomerular Filtration Rate mL/min (>60) Glucose Level 292 MG/DL (74-106) H Lactic Acid Level 11.40 mmol/L (0.4-2.0) H Calcium Level 7.7 MG/DL (8.5-10.1) #L Phosphorus Level 4.7 MG/DL (2.5-4.9) Magnesium Level 1.6 MG/DL (1.8-2.4) L Total Bilirubin 0.4 MG/DL (0.2-1.0) Aspartate Amino Transf (AST/SGOT) 29 U/L (15-37) Alanine Aminotransferase (ALT/SGPT) 12 U/L (12-78) Alkaline Phosphatase 77 U/L (46-116) Troponin I 0.031 ng/mL (0.000-0.056) Pro-B-Type Natriuretic Peptide 03913 pg/mL (0-125) H Total Protein 5.9 G/DL (6.4-8.2) #L Albumin 1.6 G/DL (3.4-5.0) L Globulin 4.3 g/dL Albumin/Globulin Ratio 0.4 (1.0-2.7) L Plan Problems: (1) Severe sepsis Assessment & Plan: Febrile, Leukocytosis, Lactic Acidosis abnormal labs critically ill and in ICU on pressors needs central line emergently family consented line placed IV fluids resuscitation IV abx PPI BIPAP, DNR/DNI wound care trend labs am cxr thank you (2) Septic shock (3) Protein-calorie malnutrition, moderate (4) Sacral decubitus ulcer, stage IV Assessment & Plan: Pt presented on admission with multiple pressure injuries. Full thickness wound distal eliezer R tibia. Wound has irregular borders. Base of wound has 100% firm,thick yellow slough. Marginal erythema along borders. No odor or exudate noted. Periwound without erythema or induration.(L)11cm x (W) 5cm. Sacral pressure injury wound bed is 100% necrotic sloth and dry with surrounding black and slightly indurated borders. Wound measures (L)8cm x (W) 7cm in entirety , Necrotic area is (L)4cm x (W)3.5cm. Mild odor noted from sacral wound. R heel pressure injury has an area that is serous filled(L01.2cm x (W)1.5cm with surrounding maroon discoloration with fluctuance.(L)4.3cm x (W)6.2cm. R heel pressure injury necrotic at medial aspect(L)4cm x (W)3.5cm, with surrounding maroon discoloration extending into plantar aspect of R heel (L)8cm x (W)7cm . Pt has Bilat foot drop. Small dry brown discoloration noted to L earlobe. No erythema noted. Tx.Plan: Cleanse sacral wound with saline. Apply Dakin's moist Gauze. Apply Moisture Barrier periwound. Cover with Optifoam drsg. Change Twice daily and prn. Swab R and L heels with Betadine. Cover each heel with Optifoam drsg. Change every 3 days and prn. Swab Wound R tibia with Betadine. Cover with Optifoam drsg. Change every 3 days and prn. APM/LOU Mattress overlay. Reposition at least every 2 hours or as tolerated. Off-load heels with pillow. Akhil Jackson Dec 17, 2018 11:13
--- NOTE | 2018-12-17 11:55 | NUR ---
NURSE NOTES: Called patient's brother, Ryan Archibald and updated him pt's current condition.
--- NOTE | 2018-12-17 13:00 | NUR ---
NURSE NOTES: Report received from FELIX Baugh. Pt is non-verbal and not responsive to verbal and/or physical stimuli. No motor activities noted. Sinus rhythm on color television console monitor. On bi-pap 15/5, 60%. O2 sat 99%, Tachypneic. G-tube in place and kept NPO as per MD order. Nunez in place draining to gravity, minimal urine output. Right femoral TLC patent and asymptomatic. B/P: 68/12- Maxed on Levophed at 30mcg/min. Pt is on Heparin drip @ 14 units/kg/hr. Bed in lowest position. Side rails up x3. Will resume plan of care.
--- NOTE | 2018-12-17 13:02 | NUR ---
NURSE NOTES: SBP is 60's-70's. Called and left a message to Dr Muhammad for low BP. Awaiting call back for new orders. Addendum: 12/17/18 at 1308 by FRANC DELA CRUZ RN RN NURSE NOTES: SBP is 60's-70's. Called and left a message to Dr Muhammad for low BP. Also left pt's brother's number to call. Awaiting call back for new orders.
--- NOTE | 2018-12-17 13:20 | Diagnostic Imaging Report ---
Indication: Dyspnea Comparison: 12/16/2018 A single view chest radiograph was obtained. Findings: Pulmonary vascular congestion demonstrated. Cardiomegaly is present. There is suggestion of mild left basal atelectasis. IMPRESSION: Mild pulmonary vascular congestion suspected currently
--- NOTE | 2018-12-17 13:28 | Infectious Diseases Prog Note ---
Assessment/Plan Assessment/Plan A) 1) geram neg bacteremia, sepsis, shock, ? pna, ? chf, ? pe, sob, ? uti, leukocytosis, fevers, ARF 2) right leg and sacral wounds, ? sepsis 3) allergies - nkda P) 1) vancomycin, meropenem, polymyxin 2) check cultures, labs and chest x-ray 3) wound care per surgery and protocol 4) poor prognosis 5) d/w Dr. Muhammad Subjective Constitutional: Reports: fever, other - on max pressors, d/w RN, on bipap HEENT: Reports: congestion Respiratory: Reports: shortness of breath Gastrointestinal/Abdominal: Denies: nausea, vomiting, diarrhea Genitourinary: Reports: other Allergies: Coded Allergies: No Known Allergies (Unverified , 02/04/17) Objective Vital Signs Last 24 Hour Vital Signs Date Time Temp Pulse Resp B/P (MAP) Pulse Ox O2 Delivery O2 Flow Rate FiO2 12/17/18 13:06 76 39 96 Facial 60 12/17/18 12:00 Bi-pap 12/17/18 12:00 60.0 40 12/17/18 11:30 99.8 82 34 83/48 (60) 98 12/17/18 11:00 90 40 88/16 (40) 100 12/17/18 10:42 77 39 100 Facial 60 12/17/18 10:30 94 40 95/19 (44) 100 12/17/18 10:00 95 39 95/12 (39) 100 12/17/18 09:30 95 38 91/17 (41) 100 12/17/18 09:29 91/15 12/17/18 09:11 94 40 100 Facial 60 12/17/18 09:00 96 39 95/17 (43) 100 12/17/18 09:00 95/17 12/17/18 08:30 96 32 93/14 (40) 100 12/17/18 08:00 98.9 100 37 95/13 (40) 100 12/17/18 08:00 60.0 40 12/17/18 08:00 95/13 12/17/18 08:00 Bi-pap 12/17/18 07:30 100 36 90/13 (38) 100 12/17/18 07:25 98 12/17/18 07:21 98 35 100 Facial 60 12/17/18 07:00 90/12 12/17/18 07:00 96 32 90/12 (38) 99 12/17/18 06:30 96 32 86/17 (40) 99 12/17/18 06:00 98.8 96 32 86/18 (40) 99 12/17/18 06:00 86/18 12/17/18 05:45 95 31 81/11 (34) 100 12/17/18 05:30 95 26 84/11 (35) 100 12/17/18 05:15 95 26 86/18 (40) 100 12/17/18 05:02 78/38 12/17/18 05:00 78/38 12/17/18 05:00 99 26 163/38 (79) 100 12/17/18 04:48 72 15 94 Facial 60 12/17/18 04:45 85 20 37/15 (22) 96 12/17/18 04:30 116 28 56/22 (33) 96 12/17/18 04:15 114 28 86/37 (53) 96 12/17/18 04:00 97.7 114 25 92/30 (50) 90 12/17/18 04:00 Bi-pap 12/17/18 04:00 92/30 12/17/18 04:00 60.0 40 12/17/18 03:45 114 25 89/45 (60) 90 12/17/18 03:45 110 12/17/18 03:30 114 25 91/45 (60) 97 12/17/18 03:15 117 25 96/41 (59) 97 12/17/18 03:07 120 25 95 Facial 40 12/17/18 03:00 105/53 12/17/18 03:00 116 25 105/53 (70) 97 12/17/18 02:45 116 25 86/35 (52) 97 12/17/18 02:30 116 25 87/44 (58) 97 12/17/18 02:15 116 22 89/46 (60) 97 12/17/18 02:00 95/45 12/17/18 02:00 116 22 95/46 (62) 97 12/17/18 01:45 116 22 92/47 (62) 97 12/17/18 01:30 116 22 89/44 (59) 97 12/17/18 01:15 116 22 88/48 (61) 97 12/17/18 01:05 116 26 96 Facial 40 12/17/18 01:00 116 22 98/45 (62) 97 12/17/18 01:00 98/45 12/17/18 00:45 112 22 100/45 (63) 97 12/17/18 00:30 112 22 95/45 (62) 97 12/17/18 00:15 113 22 102/42 (62) 97 12/17/18 00:06 94/41 12/17/18 00:00 Bi-pap 12/17/18 00:00 109 12/17/18 00:00 40.0 40 12/17/18 00:00 98.8 110 22 100/48 (65) 97 12/17/18 00:00 40 12/16/18 23:59 100/48 12/16/18 23:45 110 22 94/41 (58) 98 12/16/18 23:30 110 22 92/42 (59) 98 12/16/18 23:15 110 22 95/44 (61) 98 12/16/18 23:03 110 22 97 Facial 40 12/16/18 23:00 110 22 93/43 (60) 98 12/16/18 23:00 93/43 12/16/18 22:45 109 22 94/41 (58) 98 12/16/18 22:30 110 22 92/43 (59) 98 12/16/18 22:15 112 22 87/43 (58) 98 12/16/18 22:00 114 26 96/46 (63) 98 12/16/18 22:00 96/46 12/16/18 21:45 114 26 96/42 (60) 98 12/16/18 21:30 114 26 99/41 (60) 98 12/16/18 21:18 88/41 12/16/18 21:15 114 26 88/41 (57) 98 12/16/18 21:00 43/24 12/16/18 20:57 114 23 97 Facial 40 12/16/18 20:45 116 26 43/24 (30) 98 12/16/18 20:27 99.0 12/16/18 20:15 118 26 88/52 (64) 98 12/16/18 20:00 Bi-pap 12/16/18 20:00 118 12/16/18 20:00 88/52 12/16/18 20:00 118 26 88/52 (64) 98 12/16/18 20:00 40 12/16/18 20:00 40.0 40 12/16/18 19:45 102.1 118 26 102/45 (64) 98 12/16/18 19:30 117 26 94/46 (62) 98 12/16/18 19:15 120 26 94/46 (62) 98 12/16/18 19:00 116 26 96 Facial 40 12/16/18 19:00 120 26 94/43 (60) 98 12/16/18 18:50 95/43 12/16/18 18:45 118 26 95/45 (62) 98 12/16/18 18:40 91/44 12/16/18 18:30 119 26 88/47 (61) 98 12/16/18 18:21 94/43 12/16/18 18:15 98.8 120 26 90/54 (66) 97 12/16/18 18:00 120 26 94/43 (60) 98 12/16/18 17:30 119 27 92/49 (63) 97 12/16/18 17:17 119 25 97 Facial 40 12/16/18 17:00 120 27 87/54 (65) 97 12/16/18 16:54 Bi-pap 40.0 12/16/18 16:30 40 12/16/18 16:30 97.3 123 27 70/46 (54) 97 12/16/18 16:23 Bi-pap 40.0 12/16/18 16:15 99.8 130 16 96/55 96 Bi-pap 40 12/16/18 15:50 99.8 128 32 96/55 100 Bi-pap 40 12/16/18 15:30 138 40 97/49 100 Bi-pap 40 12/16/18 15:15 131 29 100 Facial 35 12/16/18 15:15 113/53 12/16/18 15:15 135 39 113/53 100 Bi-pap 40 12/16/18 15:00 135 39 110/51 100 Bi-pap 40 12/16/18 15:00 110/51 12/16/18 14:45 138 40 101/46 100 Bi-pap 40 12/16/18 14:32 73/45 12/16/18 14:30 130 37 89/44 100 Bi-pap 40 12/16/18 14:00 132 39 71/45 100 Bi-pap 12/16/18 13:45 135 38 68/44 96 Bi-pap 12/16/18 13:30 133 38 53/40 96 Bi-pap Height (Feet): 5 Height (Inches): 4.00 Weight (Pounds): 169 General Appearance: other - sob, on bipap HEENT: normocephalic, atraumatic, anicteric Respiratory/Chest: crackles/rales, rhonchi - bilaterally Cardiovascular: normal rate, regular rhythm Abdomen: normal bowel sounds, soft, non tender Genitourinary: other - + taylor - urine slt cloudy Skin: no rash Microbiology Date/Time Source Procedure Growth Status 12/16/18 10:45 Blood Blood Culture - Preliminary Resulted 12/16/18 10:30 Blood Blood Culture - Preliminary Resulted 12/16/18 15:30 Rectum Received Laboratory Tests Test 12/16/18 13:30 12/16/18 16:39 12/16/18 19:00 12/16/18 22:15 Lactic Acid Level 11.00 mmol/L (0.66-2.22) H 10.40 mmol/L (0.4-2.0) H 10.90 mmol/L (0.66-2.22) H Arterial Blood pH 7.392 (7.350-7.450) Arterial Blood Partial Pressure CO2 23.2 mmHg (35.0-45.0) *L Arterial Blood Partial Pressure O2 75.8 mmHg (75.0-100.0) Arterial Blood HCO3 13.8 mmol/L (22.0-26.0) *L Arterial Blood Oxygen Saturation 93.3 % (95-100) L Arterial Blood Base Excess -9.6 (-2-2) *L Ray Test Positive Activated Partial Thromboplast Time 35 SEC (23-33) H D-Dimer 7.86 mg/L FEU (0.00-0.49) H Troponin I 0.071 ng/mL (0.000-0.056) Test 12/17/18 05:00 12/17/18 11:00 White Blood Count 37.1 K/UL (4.8-10.8) *H Red Blood Count 2.69 M/UL (4.20-5.40) L Hemoglobin 8.5 G/DL (12.0-16.0) #L Hematocrit 27.2 % (37.0-47.0) #L Mean Corpuscular Volume 101 FL (80-99) H Mean Corpuscular Hemoglobin 31.7 PG (27.0-31.0) H Mean Corpuscular Hemoglobin Concent 31.4 G/DL (32.0-36.0) L Red Cell Distribution Width 15.4 % (11.6-14.8) H Platelet Count 132 K/UL (150-450) #L Mean Platelet Volume 8.7 FL (6.5-10.1) Neutrophils (%) (Auto) % (45.0-75.0) Lymphocytes (%) (Auto) % (20.0-45.0) Monocytes (%) (Auto) % (1.0-10.0) Eosinophils (%) (Auto) % (0.0-3.0) Basophils (%) (Auto) % (0.0-2.0) Differential Total Cells Counted 100 Neutrophils % (Manual) 77 % (45-75) H Lymphocytes % (Manual) 3 % (20-45) L Monocytes % (Manual) 7 % (1-10) Eosinophils % (Manual) 2 % (0-3) Basophils % (Manual) 0 % (0-2) Band Neutrophils 11 % (0-8) H Nucleated Red Blood Cells 2 /100 WBC Platelet Estimate Decreased L Platelet Morphology Normal Anisocytosis 1+ Activated Partial Thromboplast Time > 150 SEC (23-33) *H Sodium Level 143 MMOL/L (136-145) Potassium Level 4.9 MMOL/L (3.5-5.1) Chloride Level 107 MMOL/L (98-107) Carbon Dioxide Level 13 MMOL/L (21-32) L Anion Gap 23 mmol/L (5-15) H Blood Urea Nitrogen 53 mg/dL (7-18) H Creatinine 2.1 MG/DL (0.55-1.30) H Estimat Glomerular Filtration Rate mL/min (>60) Glucose Level 292 MG/DL (74-106) H Lactic Acid Level 11.40 mmol/L (0.4-2.0) H 10.10 mmol/L (0.4-2.0) H Calcium Level 7.7 MG/DL (8.5-10.1) #L Phosphorus Level 4.7 MG/DL (2.5-4.9) Magnesium Level 1.6 MG/DL (1.8-2.4) L Total Bilirubin 0.4 MG/DL (0.2-1.0) Aspartate Amino Transf (AST/SGOT) 29 U/L (15-37) Alanine Aminotransferase (ALT/SGPT) 12 U/L (12-78) Alkaline Phosphatase 77 U/L (46-116) Troponin I 0.031 ng/mL (0.000-0.056) Pro-B-Type Natriuretic Peptide 63302 pg/mL (0-125) H Total Protein 5.9 G/DL (6.4-8.2) #L Albumin 1.6 G/DL (3.4-5.0) L Globulin 4.3 g/dL Albumin/Globulin Ratio 0.4 (1.0-2.7) L Current Medications Medications (Trade) Dose Ordered Sig/Wayne Route PRN Reason Start Time Stop Time Status Last Admin Dose Admin Acetaminophen (Tylenol) 500 mg Q6H PRN GT Temp > 100.4 12/16/18 19:45 01/15/19 19:44 12/16/18 19:57 Aspirin (ASA) 81 mg DAILY GT 12/16/18 20:30 01/15/19 20:29 12/17/18 09:30 Atorvastatin Calcium (Lipitor) 40 mg BEDTIME GT 12/16/18 21:00 01/15/19 20:59 12/16/18 21:11 Chlorhexidine Gluconate (Kamla-Hex 2%) 1 applic DAILY@2000 TOPIC 12/17/18 20:00 01/16/19 19:59 Dextrose (Dextrose 50%) 25 ml Q30M PRN IV Hypoglycemia 12/16/18 17:15 01/15/19 17:14 Dextrose (Dextrose 50%) 50 ml Q30M PRN IV Hypoglycemia 12/16/18 17:15 01/15/19 17:14 Heparin Sodium/ Dextrose 500 ml @ 21.591 mls/ hr ADJUST PER PROTOCOL IV 12/17/18 07:45 01/16/19 07:44 12/17/18 08:17 Insulin Aspart (NovoLOG) Q6HR SUBQ 12/16/18 18:00 01/15/19 17:59 12/17/18 12:47 Insulin Detemir (Levemir) 30 units BEDTIME SUBQ 12/16/18 21:00 01/15/19 20:59 12/16/18 21:12 Norepinephrine Bitartrate 8 mg/ Dextrose 500 ml @ 0 mls/hr Q24H IV 12/17/18 00:00 01/16/19 00:00 12/17/18 09:29 Vancomycin HCl (Vanco rx to dose) 1 ea DAILY PRN MISC Per rx protocol 12/16/18 16:00 01/15/19 15:59 Vancomycin/Sodium Chloride 275 ml @ 183.333 mls/hr Q36H IVPB 12/17/18 18:00 12/22/18 17:59 Milton Valladares MD Dec 17, 2018 13:28
--- NOTE | 2018-12-17 13:30 | NUR ---
NURSE NOTES: Spoke to Dr. Muhammad, regarding B/P- MAP 21- no longer giving a reading on the monitor, remains maxed on Levo @ 30mcgs/kg/min. No new orders at this time.
--- NOTE | 2018-12-17 13:31 | NUR ---
HAND-OFF: Report given to FELIX Sarabia.
--- NOTE | 2018-12-17 13:50 | Cardiac Electrophysiology PN ---
Assessment/Plan Assessment/Plan 1. Respiratory failure. On BIPAP. DNR 2. Septic shock, Maxed out on Levophed and Abx. WBC increase to 37 3. DNR, DNI 4. S/P CVA DW RN Subjective Subjective In ICU on BIPAP. Maxed out on Levophed. RN at bedside Objective Last 24 Hour Vital Signs Date Time Temp Pulse Resp B/P (MAP) Pulse Ox O2 Delivery O2 Flow Rate FiO2 12/17/18 13:06 76 39 96 Facial 60 12/17/18 12:00 Bi-pap 12/17/18 12:00 60.0 40 12/17/18 11:30 99.8 82 34 83/48 (60) 98 12/17/18 11:00 90 40 88/16 (40) 100 12/17/18 10:42 77 39 100 Facial 60 12/17/18 10:30 94 40 95/19 (44) 100 12/17/18 10:00 95 39 95/12 (39) 100 12/17/18 09:30 95 38 91/17 (41) 100 12/17/18 09:29 91/15 12/17/18 09:11 94 40 100 Facial 60 12/17/18 09:00 96 39 95/17 (43) 100 12/17/18 09:00 95/17 12/17/18 08:30 96 32 93/14 (40) 100 12/17/18 08:00 98.9 100 37 95/13 (40) 100 12/17/18 08:00 60.0 40 12/17/18 08:00 95/13 12/17/18 08:00 Bi-pap 12/17/18 07:30 100 36 90/13 (38) 100 12/17/18 07:25 98 12/17/18 07:21 98 35 100 Facial 60 12/17/18 07:00 90/12 12/17/18 07:00 96 32 90/12 (38) 99 12/17/18 06:30 96 32 86/17 (40) 99 12/17/18 06:00 98.8 96 32 86/18 (40) 99 12/17/18 06:00 86/18 12/17/18 05:45 95 31 81/11 (34) 100 12/17/18 05:30 95 26 84/11 (35) 100 12/17/18 05:15 95 26 86/18 (40) 100 12/17/18 05:02 78/38 12/17/18 05:00 78/38 12/17/18 05:00 99 26 163/38 (79) 100 12/17/18 04:48 72 15 94 Facial 60 12/17/18 04:45 85 20 37/15 (22) 96 12/17/18 04:30 116 28 56/22 (33) 96 12/17/18 04:15 114 28 86/37 (53) 96 12/17/18 04:00 97.7 114 25 92/30 (50) 90 12/17/18 04:00 Bi-pap 12/17/18 04:00 92/30 12/17/18 04:00 60.0 40 12/17/18 03:45 114 25 89/45 (60) 90 12/17/18 03:45 110 12/17/18 03:30 114 25 91/45 (60) 97 12/17/18 03:15 117 25 96/41 (59) 97 12/17/18 03:07 120 25 95 Facial 40 12/17/18 03:00 105/53 12/17/18 03:00 116 25 105/53 (70) 97 12/17/18 02:45 116 25 86/35 (52) 97 12/17/18 02:30 116 25 87/44 (58) 97 12/17/18 02:15 116 22 89/46 (60) 97 12/17/18 02:00 95/45 12/17/18 02:00 116 22 95/46 (62) 97 12/17/18 01:45 116 22 92/47 (62) 97 12/17/18 01:30 116 22 89/44 (59) 97 12/17/18 01:15 116 22 88/48 (61) 97 12/17/18 01:05 116 26 96 Facial 40 12/17/18 01:00 116 22 98/45 (62) 97 12/17/18 01:00 98/45 12/17/18 00:45 112 22 100/45 (63) 97 12/17/18 00:30 112 22 95/45 (62) 97 12/17/18 00:15 113 22 102/42 (62) 97 12/17/18 00:06 94/41 12/17/18 00:00 Bi-pap 12/17/18 00:00 109 12/17/18 00:00 40.0 40 12/17/18 00:00 98.8 110 22 100/48 (65) 97 12/17/18 00:00 40 12/16/18 23:59 100/48 12/16/18 23:45 110 22 94/41 (58) 98 12/16/18 23:30 110 22 92/42 (59) 98 12/16/18 23:15 110 22 95/44 (61) 98 12/16/18 23:03 110 22 97 Facial 40 12/16/18 23:00 110 22 93/43 (60) 98 12/16/18 23:00 93/43 12/16/18 22:45 109 22 94/41 (58) 98 12/16/18 22:30 110 22 92/43 (59) 98 12/16/18 22:15 112 22 87/43 (58) 98 12/16/18 22:00 114 26 96/46 (63) 98 12/16/18 22:00 96/46 12/16/18 21:45 114 26 96/42 (60) 98 12/16/18 21:30 114 26 99/41 (60) 98 12/16/18 21:18 88/41 12/16/18 21:15 114 26 88/41 (57) 98 12/16/18 21:00 43/24 12/16/18 20:57 114 23 97 Facial 40 12/16/18 20:45 116 26 43/24 (30) 98 12/16/18 20:27 99.0 12/16/18 20:15 118 26 88/52 (64) 98 12/16/18 20:00 Bi-pap 12/16/18 20:00 118 12/16/18 20:00 88/52 12/16/18 20:00 118 26 88/52 (64) 98 12/16/18 20:00 40 12/16/18 20:00 40.0 40 12/16/18 19:45 102.1 118 26 102/45 (64) 98 12/16/18 19:30 117 26 94/46 (62) 98 12/16/18 19:15 120 26 94/46 (62) 98 12/16/18 19:00 116 26 96 Facial 40 12/16/18 19:00 120 26 94/43 (60) 98 12/16/18 18:50 95/43 12/16/18 18:45 118 26 95/45 (62) 98 12/16/18 18:40 91/44 12/16/18 18:30 119 26 88/47 (61) 98 12/16/18 18:21 94/43 12/16/18 18:15 98.8 120 26 90/54 (66) 97 12/16/18 18:00 120 26 94/43 (60) 98 12/16/18 17:30 119 27 92/49 (63) 97 12/16/18 17:17 119 25 97 Facial 40 12/16/18 17:00 120 27 87/54 (65) 97 12/16/18 16:54 Bi-pap 40.0 12/16/18 16:30 40 12/16/18 16:30 97.3 123 27 70/46 (54) 97 12/16/18 16:23 Bi-pap 40.0 12/16/18 16:15 99.8 130 16 96/55 96 Bi-pap 40 12/16/18 15:50 99.8 128 32 96/55 100 Bi-pap 40 12/16/18 15:30 138 40 97/49 100 Bi-pap 40 12/16/18 15:15 131 29 100 Facial 35 12/16/18 15:15 113/53 12/16/18 15:15 135 39 113/53 100 Bi-pap 40 12/16/18 15:00 135 39 110/51 100 Bi-pap 40 12/16/18 15:00 110/51 12/16/18 14:45 138 40 101/46 100 Bi-pap 40 12/16/18 14:32 73/45 12/16/18 14:30 130 37 89/44 100 Bi-pap 40 12/16/18 14:00 132 39 71/45 100 Bi-pap 12/16/18 13:45 135 38 68/44 96 Bi-pap Intake and Output 12/16/18 12/17/18 19:00 07:00 Intake Total 3895.28 ml 1488.67 ml Output Total 660 ml 255 ml Balance 3235.28 ml 1233.67 ml Intake Oral 0 ml IV Total 3895.28 ml 1488.67 ml Output Urine Total 660 ml 255 ml # Bowel Movements 7 3 Laboratory Tests Test 12/16/18 16:39 12/16/18 19:00 12/16/18 22:15 12/17/18 05:00 Arterial Blood pH 7.392 (7.350-7.450) Arterial Blood Partial Pressure CO2 23.2 mmHg (35.0-45.0) *L Arterial Blood Partial Pressure O2 75.8 mmHg (75.0-100.0) Arterial Blood HCO3 13.8 mmol/L (22.0-26.0) *L Arterial Blood Oxygen Saturation 93.3 % (95-100) L Arterial Blood Base Excess -9.6 (-2-2) *L Ray Test Positive Activated Partial Thromboplast Time 35 SEC (23-33) H > 150 SEC (23-33) *H D-Dimer 7.86 mg/L FEU (0.00-0.49) H Lactic Acid Level 10.40 mmol/L (0.4-2.0) H 10.90 mmol/L (0.66-2.22) H 11.40 mmol/L (0.4-2.0) H Troponin I 0.071 ng/mL (0.000-0.056) 0.031 ng/mL (0.000-0.056) White Blood Count 37.1 K/UL (4.8-10.8) *H Red Blood Count 2.69 M/UL (4.20-5.40) L Hemoglobin 8.5 G/DL (12.0-16.0) #L Hematocrit 27.2 % (37.0-47.0) #L Mean Corpuscular Volume 101 FL (80-99) H Mean Corpuscular Hemoglobin 31.7 PG (27.0-31.0) H Mean Corpuscular Hemoglobin Concent 31.4 G/DL (32.0-36.0) L Red Cell Distribution Width 15.4 % (11.6-14.8) H Platelet Count 132 K/UL (150-450) #L Mean Platelet Volume 8.7 FL (6.5-10.1) Neutrophils (%) (Auto) % (45.0-75.0) Lymphocytes (%) (Auto) % (20.0-45.0) Monocytes (%) (Auto) % (1.0-10.0) Eosinophils (%) (Auto) % (0.0-3.0) Basophils (%) (Auto) % (0.0-2.0) Differential Total Cells Counted 100 Neutrophils % (Manual) 77 % (45-75) H Lymphocytes % (Manual) 3 % (20-45) L Monocytes % (Manual) 7 % (1-10) Eosinophils % (Manual) 2 % (0-3) Basophils % (Manual) 0 % (0-2) Band Neutrophils 11 % (0-8) H Nucleated Red Blood Cells 2 /100 WBC Platelet Estimate Decreased L Platelet Morphology Normal Anisocytosis 1+ Sodium Level 143 MMOL/L (136-145) Potassium Level 4.9 MMOL/L (3.5-5.1) Chloride Level 107 MMOL/L (98-107) Carbon Dioxide Level 13 MMOL/L (21-32) L Anion Gap 23 mmol/L (5-15) H Blood Urea Nitrogen 53 mg/dL (7-18) H Creatinine 2.1 MG/DL (0.55-1.30) H Estimat Glomerular Filtration Rate mL/min (>60) Glucose Level 292 MG/DL (74-106) H Calcium Level 7.7 MG/DL (8.5-10.1) #L Phosphorus Level 4.7 MG/DL (2.5-4.9) Magnesium Level 1.6 MG/DL (1.8-2.4) L Total Bilirubin 0.4 MG/DL (0.2-1.0) Aspartate Amino Transf (AST/SGOT) 29 U/L (15-37) Alanine Aminotransferase (ALT/SGPT) 12 U/L (12-78) Alkaline Phosphatase 77 U/L (46-116) Pro-B-Type Natriuretic Peptide 43699 pg/mL (0-125) H Total Protein 5.9 G/DL (6.4-8.2) #L Albumin 1.6 G/DL (3.4-5.0) L Globulin 4.3 g/dL Albumin/Globulin Ratio 0.4 (1.0-2.7) L Test 12/17/18 11:00 Lactic Acid Level 10.10 mmol/L (0.4-2.0) H Microbiology Date/Time Source Procedure Growth Status 12/16/18 10:45 Blood Blood Culture - Preliminary Resulted 12/16/18 10:30 Blood Blood Culture - Preliminary Resulted 12/16/18 15:30 Rectum Received Objective HEENT: No JVD on BIPAP LUGS: Coarse Rhonchi CVS: RRR ABDOMEN: Soft EXT: No edema José Miguel Guardado MD Dec 17, 2018 13:50
[2018-12-17] MEDS ORDERED: Meropenem 500 MG in NS 100 ML IVPB SCH (14:00)
[2018-12-17] MEDS ORDERED: NS 275ml ONE (14:09)
--- NOTE | 2018-12-17 14:09 | General Progress Note ---
Assessment/Plan Problem List: (1) Septic shock ICD Codes: A41.9 - Sepsis, unspecified organism; R65.21 - Severe sepsis with septic shock SNOMED: 98258494 (2) SOB (shortness of breath) ICD Codes: R06.02 - Shortness of breath SNOMED: 993389739 (3) Protein-calorie malnutrition, moderate ICD Codes: E44.0 - Moderate protein-calorie malnutrition SNOMED: 484803077 (4) Acute and chronic respiratory failure with hypoxia ICD Codes: J96.21 - Acute and chronic respiratory failure with hypoxia SNOMED: 57303511, 901811670 (5) Sacral decubitus ulcer, stage IV ICD Codes: L89.154 - Pressure ulcer of sacral region, stage 4 SNOMED: 370955987, 130430411 (6) Respiratory failure with hypoxia and hypercapnia ICD Codes: J96.91 - Respiratory failure, unspecified with hypoxia; J96.92 - Respiratory failure, unspecified with hypercapnia SNOMED: 58282922 (7) G tube feedings ICD Codes: Z93.1 - Gastrostomy status SNOMED: 394264212, 272653060, 219621444 (8) H/O: CVA (cerebrovascular accident) ICD Codes: Z86.73 - Personal history of transient ischemic attack (TIA), and cerebral infarction without residual deficits SNOMED: 945608911 (9) KEL (acute kidney injury) ICD Codes: N17.9 - Acute kidney failure, unspecified SNOMED: 1259922, 24065663 (10) Lactic acid acidosis ICD Codes: E87.2 - Acidosis SNOMED: 60254324 (11) Toxic metabolic encephalopathy ICD Codes: G92 - Toxic encephalopathy SNOMED: 033943105 (12) UTI (urinary tract infection) ICD Codes: N39.0 - Urinary tract infection, site not specified SNOMED: 12808201 Status: deteriorating Assessment/Plan: A 78-year-old female with a history of CVA status post PEG who is baseline nonverbal, diabetes, hypertension, CAD, with recurrent pneumonias presenting with shock suspected sepsis, acute hypoxic respiratory failure. #Shock, suspect sepsis. Unclear source at this time differential includes developing pneumonia, infected sacral wound, intra-abdominal sepsis. #Acute on chronic hypoxic respiratory failure. Differential includes pneumonia , possible pulmonary embolism #Toxic metabolic encephalopathy secondary to sepsis #Lactic acidosis secondary to septic shock > S/p 3L fluids in ER -Admitted to ICU -BiPAP PRN to keep sats greater than 2% -ABG PRN -F/u Sputum culture -Blood cultures x2 -Follow-up urine culture -Trend lactate -check D-Dimer, venous duplex US of LE. Consider heparin drip if positive. D- dimer elevated at 7.86. Discussed with Pulmonology/ICU Dr. Milner and decision made to empirically treat for pulmonary embolism with IV heparin GTT and when Cr improves can get CT pulmonary angiogram or VQ scan in future. -Holding off on further fluids as patient having worsening respiratory failure and is DNR/DNI. -Levophed, titrate to MAP >65 -Vancomycin per pharmacy (12/16 - ) -Cefepime (12/16 - ) -Flagyl (12/16 - ) -Amikacin (12/16 - ) -Appreciate infectious disease recommendations: Dr. Solis -Appreciate pulmonology recommendations: Dr. Milner -Titrate SPO2 to greater than 92% -Duo nebs and Mucomyst every 4 hours ATC -Pulmonary hygiene #elevated troponin, suspect 2/2 demand ischemia #elevated proBNP -continue to trend -asa -2d Echo -appreciate cardiology recommendations: Dr. Guardado #KEL secondary to sepsis -IV fluids as above -continue to trend -avoid nephrotoxins #Diabetes mellitus type 2 -Levemir 10 units subc nightly (reduced from 30 units) -NovoLog 9 units 3 times daily AC -Sliding scale insulin -Accu-Cheks Q6hr -Hypoglycemia protocol #Sacral decubitus ulcer, present on admission #Chronic indwelling Nunez for wound healing -Appreciate wound care consult -Appreciate general surgery recommendations: Dr. Jackson -Zinc 220 mg NG daily -Continue Nunez on discharge for sacral decubitus ulcer healing #Advanced dementia, end stage #history of CVA #Goals of care -Spent 35 minutes today discussing goals of care with the patient's brother Mitul Archibald. Unable to speak with healthcare decision-maker Ryan Archibald at this time. Mr. Archibald would like to continue DNR/DNI. At this time does not want hospice. Would like to continue full treatment including placing a central line or other invasive procedures to support the patient. -Social work consult for hospice discussion #HTN #History of CAD -Continue aspirin 81 mg p.o. daily Continue atorvastatin 40 mg p.o. nightly -Hold metoprolol 12.5 mg p.o. every 12 hours due to septic shock FENPPX DVTPPX: Heparin GI PPX: protonix Fluids: no further fluids Diet: Tube feeding. Trickle feeds. Lines: central line PT/OT: pending Time of my involvement, the patient's condition was critical with high potential for and/or physiologic deterioration secondary to septic shock, acute hypoxic respiratory failure, severe lactic acidosis as delineated in the note above. On the above date of service, I spent a total of 40 minutes in the ICU evaluating, managing, and providing critical care services to this patient, including time spent documenting these activities, counseling patient/family, and coordinating care. Critical care services performed include: -Telemetry review -Hemodynamic measurement interpretation -Laboratory data review and interpretation -Ventilator setting reviewed, management, and adjustment -Discussion of care plans with patient, family, and/or surrogate decision makers -Discussion of patient's care with primary medical team, surgical team, and/or consulting service -Decision to obtain further radiologic evaluation, after consideration of the risk/benefit ratio -Discussion of patient's CODE STATUS and further advancement towards the ultimate goals of care. Plan outlined above discussed with patient/family, HYDROGEOLOGIST, ICU team, and involved physician/consultants. An additional 35 minutes spent discussing goals of care with the family ( brother Ryan) as detailed above. Time of my involvement, the patient's condition was critical with high potential for and/or physiologic deterioration secondary to septic shock, acute hypoxic respiratory failure, severe lactic acidosis as delineated in the note above. On the above date of service, I spent a total of 40 minutes in the ICU evaluating, managing, and providing critical care services to this patient, including time spent documenting these activities, counseling patient/family, and coordinating care. Critical care services performed include: -Telemetry review -Hemodynamic measurement interpretation -Laboratory data review and interpretation -Bipap setting reviewed, management, and adjustment -Discussion of care plans with patient, family, and/or surrogate decision makers -Discussion of patient's care with primary medical team, surgical team, and/or consulting service -Decision to obtain further radiologic evaluation, after consideration of the risk/benefit ratio -Discussion of patient's CODE STATUS and further advancement towards the ultimate goals of care. Plan outlined above discussed with patient/family, HYDROGEOLOGIST, ICU team, and involved physician/consultants. An additional 35 minutes spent discussing goals of care with the family as detailed above. Time of this note may not reflect time of encounter. Subjective Date patient seen: Dec 17, 2018 ROS Limited/Unobtainable: Yes Allergies: Coded Allergies: No Known Allergies (Unverified , 02/04/17) Subjective unable to obtain due to patient's mental status, Obtunded on bipap Objective Last 24 Hour Vital Signs Date Time Temp Pulse Resp B/P (MAP) Pulse Ox O2 Delivery O2 Flow Rate FiO2 12/17/18 13:06 76 39 96 Facial 60 12/17/18 13:00 68/12 12/17/18 13:00 76 40 68/12 (30) 100 12/17/18 12:30 76 37 74/11 (32) 100 12/17/18 12:02 80 12/17/18 12:00 Bi-pap 12/17/18 12:00 60.0 40 12/17/18 12:00 75 38 89/16 (40) 99 12/17/18 12:00 89/16 12/17/18 11:30 99.8 82 34 83/48 (60) 98 12/17/18 11:00 88/16 12/17/18 11:00 90 40 88/16 (40) 100 12/17/18 10:42 77 39 100 Facial 60 12/17/18 10:30 94 40 95/19 (44) 100 12/17/18 10:00 95 39 95/12 (39) 100 12/17/18 10:00 95/12 12/17/18 09:30 95 38 91/17 (41) 100 12/17/18 09:29 91/15 12/17/18 09:11 94 40 100 Facial 60 12/17/18 09:00 96 39 95/17 (43) 100 12/17/18 09:00 95/17 12/17/18 08:30 96 32 93/14 (40) 100 12/17/18 08:00 98.9 100 37 95/13 (40) 100 12/17/18 08:00 60.0 40 12/17/18 08:00 95/13 12/17/18 08:00 Bi-pap 12/17/18 07:30 100 36 90/13 (38) 100 12/17/18 07:25 98 12/17/18 07:21 98 35 100 Facial 60 12/17/18 07:00 90/12 12/17/18 07:00 96 32 90/12 (38) 99 12/17/18 06:30 96 32 86/17 (40) 99 12/17/18 06:00 98.8 96 32 86/18 (40) 99 12/17/18 06:00 86/18 12/17/18 05:45 95 31 81/11 (34) 100 12/17/18 05:30 95 26 84/11 (35) 100 12/17/18 05:15 95 26 86/18 (40) 100 12/17/18 05:02 78/38 12/17/18 05:00 78/38 12/17/18 05:00 99 26 163/38 (79) 100 12/17/18 04:48 72 15 94 Facial 60 12/17/18 04:45 85 20 37/15 (22) 96 12/17/18 04:30 116 28 56/22 (33) 96 12/17/18 04:15 114 28 86/37 (53) 96 12/17/18 04:00 97.7 114 25 92/30 (50) 90 12/17/18 04:00 Bi-pap 12/17/18 04:00 92/30 12/17/18 04:00 60.0 40 12/17/18 03:45 114 25 89/45 (60) 90 12/17/18 03:45 110 12/17/18 03:30 114 25 91/45 (60) 97 12/17/18 03:15 117 25 96/41 (59) 97 12/17/18 03:07 120 25 95 Facial 40 12/17/18 03:00 105/53 12/17/18 03:00 116 25 105/53 (70) 97 12/17/18 02:45 116 25 86/35 (52) 97 12/17/18 02:30 116 25 87/44 (58) 97 12/17/18 02:15 116 22 89/46 (60) 97 12/17/18 02:00 95/45 12/17/18 02:00 116 22 95/46 (62) 97 12/17/18 01:45 116 22 92/47 (62) 97 12/17/18 01:30 116 22 89/44 (59) 97 12/17/18 01:15 116 22 88/48 (61) 97 12/17/18 01:05 116 26 96 Facial 40 12/17/18 01:00 116 22 98/45 (62) 97 12/17/18 01:00 98/45 12/17/18 00:45 112 22 100/45 (63) 97 12/17/18 00:30 112 22 95/45 (62) 97 12/17/18 00:15 113 22 102/42 (62) 97 12/17/18 00:06 94/41 12/17/18 00:00 Bi-pap 12/17/18 00:00 109 12/17/18 00:00 40.0 40 12/17/18 00:00 98.8 110 22 100/48 (65) 97 12/17/18 00:00 40 12/16/18 23:59 100/48 12/16/18 23:45 110 22 94/41 (58) 98 12/16/18 23:30 110 22 92/42 (59) 98 12/16/18 23:15 110 22 95/44 (61) 98 12/16/18 23:03 110 22 97 Facial 40 12/16/18 23:00 110 22 93/43 (60) 98 12/16/18 23:00 93/43 12/16/18 22:45 109 22 94/41 (58) 98 12/16/18 22:30 110 22 92/43 (59) 98 12/16/18 22:15 112 22 87/43 (58) 98 12/16/18 22:00 114 26 96/46 (63) 98 12/16/18 22:00 96/46 12/16/18 21:45 114 26 96/42 (60) 98 12/16/18 21:30 114 26 99/41 (60) 98 12/16/18 21:18 88/41 12/16/18 21:15 114 26 88/41 (57) 98 12/16/18 21:00 43/24 12/16/18 20:57 114 23 97 Facial 40 12/16/18 20:45 116 26 43/24 (30) 98 12/16/18 20:27 99.0 12/16/18 20:15 118 26 88/52 (64) 98 12/16/18 20:00 Bi-pap 12/16/18 20:00 118 12/16/18 20:00 88/52 12/16/18 20:00 118 26 88/52 (64) 98 12/16/18 20:00 40 12/16/18 20:00 40.0 40 12/16/18 19:45 102.1 118 26 102/45 (64) 98 12/16/18 19:30 117 26 94/46 (62) 98 12/16/18 19:15 120 26 94/46 (62) 98 12/16/18 19:00 116 26 96 Facial 40 12/16/18 19:00 120 26 94/43 (60) 98 12/16/18 18:50 95/43 12/16/18 18:45 118 26 95/45 (62) 98 12/16/18 18:40 91/44 12/16/18 18:30 119 26 88/47 (61) 98 12/16/18 18:21 94/43 12/16/18 18:15 98.8 120 26 90/54 (66) 97 12/16/18 18:00 120 26 94/43 (60) 98 12/16/18 17:30 119 27 92/49 (63) 97 12/16/18 17:17 119 25 97 Facial 40 12/16/18 17:00 120 27 87/54 (65) 97 12/16/18 16:54 Bi-pap 40.0 12/16/18 16:30 40 12/16/18 16:30 97.3 123 27 70/46 (54) 97 12/16/18 16:23 Bi-pap 40.0 12/16/18 16:15 99.8 130 16 96/55 96 Bi-pap 40 12/16/18 15:50 99.8 128 32 96/55 100 Bi-pap 40 12/16/18 15:30 138 40 97/49 100 Bi-pap 40 12/16/18 15:15 131 29 100 Facial 35 12/16/18 15:15 113/53 12/16/18 15:15 135 39 113/53 100 Bi-pap 40 12/16/18 15:00 135 39 110/51 100 Bi-pap 40 12/16/18 15:00 110/51 12/16/18 14:45 138 40 101/46 100 Bi-pap 40 12/16/18 14:32 73/45 12/16/18 14:30 130 37 89/44 100 Bi-pap 40 Intake and Output 12/16/18 12/17/18 19:00 07:00 Intake Total 3895.28 ml 1488.67 ml Output Total 660 ml 255 ml Balance 3235.28 ml 1233.67 ml Intake Oral 0 ml IV Total 3895.28 ml 1488.67 ml Output Urine Total 660 ml 255 ml # Bowel Movements 7 3 Laboratory Tests 12/16/18 16:39: Arterial Blood pH 7.392, Arterial Blood Partial Pressure CO2 23.2*L, Arterial Blood Partial Pressure O2 75.8, Arterial Blood HCO3 13.8*L, Arterial Blood Oxygen Saturation 93.3L, Arterial Blood Base Excess -9.6*L, Ray Test Positive 12/16/18 19:00: Activated Partial Thromboplast Time 35H, D-Dimer 7.86H, Lactic Acid Level 10.40H , Troponin I 0.071H 12/16/18 22:15: Lactic Acid Level 10.90H 12/17/18 05:00: Activated Partial Thromboplast Time > 150*H, Lactic Acid Level 11.40H, Troponin I 0.031, White Blood Count 37.1*H, Red Blood Count 2.69L, Hemoglobin 8.5#L, Hematocrit 27.2#L, Mean Corpuscular Volume 101H, Mean Corpuscular Hemoglobin 31.7H, Mean Corpuscular Hemoglobin Concent 31.4L, Red Cell Distribution Width 15.4H, Platelet Count 132#L, Mean Platelet Volume 8.7, Neutrophils (%) (Auto) , Lymphocytes (%) (Auto) , Monocytes (%) (Auto) , Eosinophils (%) (Auto) , Basophils (%) (Auto) , Differential Total Cells Counted 100, Neutrophils % ( Manual) 77H, Lymphocytes % (Manual) 3L, Monocytes % (Manual) 7, Eosinophils % ( Manual) 2, Basophils % (Manual) 0, Band Neutrophils 11H, Nucleated Red Blood Cells 2, Platelet Estimate DecreasedL, Platelet Morphology Normal, Anisocytosis 1+, Sodium Level 143, Potassium Level 4.9, Chloride Level 107, Carbon Dioxide Level 13L, Anion Gap 23H, Blood Urea Nitrogen 53H, Creatinine 2.1H, Estimat Glomerular Filtration Rate , Glucose Level 292H, Calcium Level 7.7#L, Phosphorus Level 4.7, Magnesium Level 1.6L, Total Bilirubin 0.4, Aspartate Amino Transf (AST/SGOT) 29, Alanine Aminotransferase (ALT/SGPT) 12, Alkaline Phosphatase 77, Pro-B-Type Natriuretic Peptide 31897B, Total Protein 5.9#L, Albumin 1.6L, Globulin 4.3, Albumin/Globulin Ratio 0.4L 12/17/18 11:00: Lactic Acid Level 10.10H Height (Feet): 5 Height (Inches): 4.00 Weight (Pounds): 169 Objective General Appearance: obtunded on bipap, agonal breathing Lines, tubes and drains: peripheral HEENT: atraumatic, anicteric Neck: normal inspection Respiratory/Chest: respiratory distress, decreased breath sounds, tachypnea Cardiovascular/Chest: tachycardia Abdomen: soft, no organomegaly, no mass Extremities: no calf tenderness, non-pitting Skin Exam: normal pigmentation Neurologic: unresponsiveness Abdullahi Muhammad M.D. Dec 17, 2018 14:09
--- NOTE | 2018-12-17 14:10 | NUR ---
NURSE NOTES: Pt's B/P: 34/20. Pt went into Asystole on monitor, no palpable pulse. Pt is DNR. Pronounced by Charge Nurse, Valeri Olivera RN. Notified Dr. Muhammad, who notified Pt's brother, Ryan Archibald. Pt's brother will arrive to the hospital within 1-2 hours.
--- NOTE | 2018-12-17 14:10 | NUR ---
PRONOUNCEMENT: No Code. Called to pronounce patient. Absence of spontaneous respirations, no cardiac or breath sounds on auscultation. Pupils fixed and dilated. No carotid pulse or chest movement. Patient at . Dr. Muhammad notified via phone by No Salgado RN Family was notified at 1420- Stated he's coming in 1-2 hours to see his sister's remains
--- NOTE | 2018-12-17 14:30 | NUR ---
NURSE NOTES: Called [facility], spoke to Martine. Ref# [id number]
--- NOTE | 2018-12-17 14:47 | NUR ---
NURSE NOTES: Message left to sonJennifer Doe to call the hospital at [phone]
--- NOTE | 2018-12-17 14:50 | NUR ---
NURSE NOTES: Called [facility] to Erin Finch ID [id number].
--- NOTE | 2018-12-17 15:25 | Diagnostic Imaging Report ---
Indication: Bilateral upper extremity pain and swelling. Technique: Duplex Doppler imaging of the veins in bilateral upper extremities performed. FINDINGS: The jugular and subclavian veins demonstrate normal color flow and waveform signal. No evidence of thrombosis. Continuation to the axillary vein, brachial, cephalic and basilic veins show no evidence of thrombosis with good compressibility, normal color flow and waveform analysis bilaterally. IMPRESSION: No evidence of thrombosis involving bilateral upper extremities.
--- NOTE | 2018-12-17 16:00 | NUR ---
NURSE NOTES: Post mortem care completed. Tag placed on Right great toe. Pt had no belongings. Pt's brother now at bedside.
--- NOTE | 2018-12-17 16:10 | NUR ---
CASE MANAGEMENT: INITIAL REVIEW 78YR OLD FEMALE BIBA FROM [facility] CC: FEVER SI: SEVERE SEPSIS; TACHY CARDIA; ENCEPHALOPATHY; PNEUMONITIS 100.6 140 20 90/50 98% ON NC 2L WBC 26.1; BUN 51; CREAT 1.8; BG 261; CA+ 10.5; BNP 3321; LACTIC ACID 8.60-11.00 IS: IV VANCOMYCIN X1 IV CEFEPIME X1 IV FLAGYL X1 NJ TYLENOL X1 IVF NS BOLUS X1 : ICU STATUS CASE MANAGEMENT: INITIAL REVIEW 12/17/18 SI: SEVERE SEPSIS; TACHY CARDIA; ENCEPHALOPATHY; PNEUMONITIS 98.9 100 37 95/40 100% ON BIPAP; FI02 40 WBC 37.1; BUN 53; CREAT 2.1; BG 292; CA+ 7.7; BNP 33549; LACTIC ACID 11.40 RBC 2.69; H/H 8.5/27.2; PTT 150 IS: IV VANCOMYCIN X1 IV CEFEPIME X1 IV FLAGYL X1 NJ TYLENOL X1 IVF NS BOLUS X1 : ICU STATUS PATIENT @1410
[2018-12-17] MEDS ORDERED: Vancomycin 1.25gm/NS Premix q24h IVPB SCH (18:00)
--- NOTE | 2018-12-17 18:04 | Discharge Summary ---
Discharge Summary Hospital Course Date of Admission Dec 16, 2018 at 12:32 Date of Discharge Dec 17, 2018 at 14:10 Admitting Diagnosis SEPSIS, RESPIRATORY DISTRESS HPI Tami Doe is a 78 year old female who was admitted on Dec 16, 2018 at 12:32 for Sepsis, Respiratory Distress Consultations cardiology, surgery, ID, pulmonary critical care Procedures central line Hospital Course Time of my involvement, the patient's condition was critical with high potential for and/or physiologic deterioration secondary to septic shock, acute hypoxic respiratory failure, severe lactic acidosis as delineated in the note above. A 78-year-old female with a history of CVA status post PEG who is baseline nonverbal, diabetes, hypertension, CAD, with recurrent pneumonias presenting with shock suspected sepsis, acute hypoxic respiratory failure. #Shock, suspect sepsis. Unclear source at this time differential includes developing pneumonia, infected sacral wound, intra-abdominal sepsis. #Acute on chronic hypoxic respiratory failure. Differential includes pneumonia , possible pulmonary embolism #Toxic metabolic encephalopathy secondary to sepsis #Lactic acidosis secondary to septic shock > S/p 3L fluids in ER -Admitted to ICU -BiPAP PRN to keep sats greater than 2% -ABG PRN -F/u Sputum culture -Blood cultures x2 -Follow-up urine culture -Trend lactate -check D-Dimer, venous duplex US of LE. Consider heparin drip if positive. D- dimer elevated at 7.86. Discussed with Pulmonology/ICU Dr. Milner and decision made to empirically treat for pulmonary embolism with IV heparin GTT and when Cr improves can get CT pulmonary angiogram or VQ scan in future. -Holding off on further fluids as patient having worsening respiratory failure and is DNR/DNI. -Levophed, titrate to MAP >65 -Vancomycin per pharmacy (12/16 - ) -Cefepime (12/16 - ) -Flagyl (12/16 - ) -Amikacin (12/16 - ) -Appreciate infectious disease recommendations: Dr. Solis -Appreciate pulmonology recommendations: Dr. Milner -Titrate SPO2 to greater than 92% -Duo nebs and Mucomyst every 4 hours ATC -Pulmonary hygiene #elevated troponin, suspect 2/2 demand ischemia #elevated proBNP -continue to trend -asa -2d Echo -appreciate cardiology recommendations: Dr. Guardado #KEL secondary to sepsis -IV fluids as above -continue to trend -avoid nephrotoxins #Diabetes mellitus type 2 -Levemir 10 units subc nightly (reduced from 30 units) -NovoLog 9 units 3 times daily AC -Sliding scale insulin -Accu-Cheks Q6hr -Hypoglycemia protocol #Sacral decubitus ulcer, present on admission #Chronic indwelling Nunez for wound healing -Appreciate wound care consult -Appreciate general surgery recommendations: Dr. Jackson -Zinc 220 mg NG daily -Continue Nunez on discharge for sacral decubitus ulcer healing #Advanced dementia, end stage #history of CVA #Goals of care -Spent 35 minutes today discussing goals of care with the patient's brother Mitul Archibald. Unable to speak with healthcare decision-maker Ryan Archibald at this time. Mr. Archibald would like to continue DNR/DNI. At this time does not want hospice. Would like to continue full treatment including placing a central line or other invasive procedures to support the patient. -Social work consult for hospice discussion #HTN #History of CAD -Continue aspirin 81 mg p.o. daily Continue atorvastatin 40 mg p.o. nightly -Hold metoprolol 12.5 mg p.o. every 12 hours due to septic shock FENPPX DVTPPX: Heparin GI PPX: protonix Fluids: no further fluids Diet: Tube feeding. Trickle feeds. Lines: central line PT/OT: pending Time of my involvement, the patient's condition was critical with high potential for and/or physiologic deterioration secondary to septic shock, acute hypoxic respiratory failure, severe lactic acidosis as delineated in the note above. On the above date of service, I spent a total of 40 minutes in the ICU evaluating, managing, and providing critical care services to this patient, including time spent documenting these activities, counseling patient/family, and coordinating care. Critical care services performed include: -Telemetry review -Hemodynamic measurement interpretation -Laboratory data review and interpretation -Ventilator setting reviewed, management, and adjustment -Discussion of care plans with patient, family, and/or surrogate decision makers -Discussion of patient's care with primary medical team, surgical team, and/or consulting service -Decision to obtain further radiologic evaluation, after consideration of the risk/benefit ratio -Discussion of patient's CODE STATUS and further advancement towards the ultimate goals of care. Plan outlined above discussed with patient/family, [employer]ER, ICU team, and involved physician/consultants. An additional 35 minutes spent discussing goals of care with the family as detailed above. Discharge Condition Upon Discharge: other - Discharge Disposition Discharge Diagnoses: (1) Septic shock (2) Protein-calorie malnutrition, moderate (3) Acute and chronic respiratory failure with hypoxia (4) Sacral decubitus ulcer, stage IV (5) Respiratory failure with hypoxia and hypercapnia (6) Severe sepsis due to methicillin resistant Staphylococcus aureus (MRSA) with acute organ dysfunction (7) H/O: CVA (cerebrovascular accident) (8) Electrolyte imbalance (9) Altered mental status (10) Pneumonia (11) KEL (acute kidney injury) (12) Elevated troponin (13) UTI (urinary tract infection) (14) DM (diabetes mellitus) (15) Lactic acid acidosis (16) Hypernatremia (17) Toxic metabolic encephalopathy Abdullahi Muhammad M.D. Dec 17, 2018 18:03
[2018-12-17] MEDS ORDERED: Dyna-Hex 2% Top Sol 2oz TOPIC SCH (20:00)
[2018-12-17] MEDS ORDERED: Polymyxin B Sulfate 500,000 UNITS in D5W 500ml 500 ML IVPB SCH (21:00)
--- NOTE | 2018-12-18 07:28 | Cardiology Report ---
APPROVED REPORT EKG Measurement Heart [id number] Sinus tachycardia Possible Lateral infarct, age undetermined Inferior infarct, age undetermined Abnormal ECG
--- NOTE | 2018-12-18 07:49 | Cardiology Report ---
APPROVED REPORT EXAM: Two-dimensional and M-mode echocardiogram with Doppler and color Doppler. INDICATION Shortness of breath M-Mode DIMENSIONS IVSd1.4 (0.7-1.1cm)Left Atrium (MM)3.9 (1.6-4.0cm) LVDd3.0 (3.5-5.6cm)Aortic Root3.0 (2.0-3.7cm) PWd1.3 (0.7-1.1cm)Aortic Cusp Exc.1.5 (1.5-2.0cm) LVDs2.1 (2.5-4.0cm) PWs1.3 cm Normal left ventricular chamber size, systolic function and wall motion. Left ventricular ejection fraction estimated to be 55 %. Mild left ventricular hypertrophy. Small pleural effusion. All other cardiac chamber sizes are within normal limits. Focal aortic valve sclerosis with adequate cusp excursion. Thickened mitral valve leaflets with normal excursion. Mild mitral annulus and aortic root calcification. Normal pulmonic valve structure. Normal tricuspid valve structure. IVC is normal in size without physiological collapse. A color flow and spectral Doppler study was performed and revealed: Trace aortic regurgitation. Mild mitral regurgitation. reduced left ventricular relaxation c/w impaired relaxation diastolic dysfunction. Mild tricuspid regurgitation. Tricuspid systolic velocities suggests peak right ventricular systolic pressure of 43 mmHg, consistent with mild pulmonary hypertension. Mild pulmonic regurgitation present.
== END 2018-12-17 14:10 | disposition expired | DRG 871 ==
LOC: EDBD 10:36 → EMR 11:24 → EDBEDREQSVC 12:29 → ICU 12:32 → EDBEDREQ 12:53
PROC: 5A09457 Assistance with Respiratory Ventilation, 24-96 Consecutive Hours, Continuous Positive Airway Pressure (ICD-10-PCS; principal; 2018-12-16)
PROC: 06HM33Z Insertion of Infusion Device into Right Femoral Vein, Percutaneous Approach (ICD-10-PCS; principal; 2018-12-16)
DX: A41.9 Sepsis, unspecified organism (principal); L89.154 Pressure ulcer of sacral region, stage 4; J96.21 Acute and chronic respiratory failure with hypoxia; J69.0 Pneumonitis due to inhalation of food and vomit; R65.21 Severe sepsis with septic shock; G92 Toxic encephalopathy; J96.22 Acute and chronic respiratory failure with hypercapnia; E44.0 Moderate protein-calorie malnutrition; N17.9 Acute kidney failure, unspecified; N39.0 Urinary tract infection, site not specified; E87.0 Hyperosmolality and hypernatremia; Z43.1 Encounter for attention to gastrostomy; E11.9 Type 2 diabetes mellitus without complications; I10 Essential (primary) hypertension; Z79.4 Long term (current) use of insulin; F03.90 Unspecified dementia, unspecified severity, without behavioral disturbance, psychotic disturbance, mood disturbance, and anxiety; Z86.73 Personal history of transient ischemic attack (TIA), and cerebral infarction without residual deficits; I25.10 Atherosclerotic heart disease of native coronary artery without angina pectoris; Z79.82 Long term (current) use of aspirin; E87.8 Other disorders of electrolyte and fluid balance, not elsewhere classified; R74.8 Abnormal levels of other serum enzymes; Z86.14 Personal history of Methicillin resistant Staphylococcus aureus infection; L89.619 Pressure ulcer of right heel, unspecified stage; R13.10 Dysphagia, unspecified; Z79.84 Long term (current) use of oral hypoglycemic drugs; Z66 Do not resuscitate
CPT/HCPCS: 36415; 36600; 71045; 74176; 80053; 81003; 82550; 82553; 82803; 82962; 83605; 83735; 83880; 84100; 84484; 85007; 85025; 85379; 85610; 85730; 86850; 86900; 86901; 87040; 87081; 87086; 87181; 93005; 93306; 93970; 94660; 96365; 96366; 96368; 99291; J1815; J7030; S5561